=== PATIENT | female | born 1950 | race Caucasian/White ===

== ENCOUNTER 2022-10-02 01:05 | Outpatient (REF) | payer MEDICARE, MEDICAID, SELFPAY ==
[2022-10-02 10:24] LABS: Estimated Average Glucose 123 mg/dL; Glycohemoglobin A1C 5.9 % (4.5-6.2)
== END 2022-10-02 01:06 ==
LOC: LAB 01:05
PROVIDERS: PCP Family Medicine; Visit Provider Family Medicine
DX: E11.9 Type 2 diabetes mellitus without complications (principal)
CPT/HCPCS: 36415; 83036

== ENCOUNTER 2022-11-27 07:34 | Outpatient (REF) | payer MEDICARE, MEDICAID, SELFPAY ==
[2022-11-27 09:53] LABS: Estimated Average Glucose 157 mg/dL; Glycohemoglobin A1C 7.1 % (4.5-6.2)
== END 2022-11-27 07:35 | disposition home or self-care (01) ==
LOC: LAB 07:34
PROVIDERS: PCP Family Medicine; Visit Provider Family Medicine
DX: E11.9 Type 2 diabetes mellitus without complications (principal)
CPT/HCPCS: 36415; 83036

== ENCOUNTER 2023-01-04 00:29 | Outpatient (REF) | payer MEDICARE, MEDICAID, SELFPAY ==
[2023-01-04 07:05] LABS: Estimated Average Glucose 166 mg/dL; Glycohemoglobin A1C 7.4 % (4.5-6.2)
== END 2023-01-04 00:30 | disposition home or self-care (01) ==
LOC: LAB 00:29
PROVIDERS: PCP Family Medicine; Visit Provider Family Medicine
DX: E11.9 Type 2 diabetes mellitus without complications (principal)
CPT/HCPCS: 36415; 83036

== ENCOUNTER 2023-01-25 04:24 | Outpatient (REF) | payer MEDICARE, MEDICAID, SELFPAY ==
[2023-01-25 09:11] LABS: Basophils Absolute Auto 0.1 10^3/uL (0.0-0.1); Basophils Percent Auto 0.5 % (0.2-2.0); Eosinophils Absolute Auto 0.1 10^3/uL (0.0-0.7); Eosinophils Percent Auto 1.2 % (0.9-7.0); Hematocrit 32.9 % (36.0-48.0); Hemoglobin 10.5 g/dL (12.0-16.0); Immature Granulocytes Abs Auto 0.08 10^3/uL (0.00-0.03); Immature Granulocytes Pct Auto 0.7 % (0.0-0.5); Lymphocytes Absolute Auto 2.5 10^3/uL (1.2-3.8); Lymphocytes Percent Auto 21.6 % (20.5-60.0); Mean Corpuscular HGB Conc 31.9 g/dL (29.9-35.2); Mean Corpuscular Hemoglobin 33.1 pg (26.7-34.0); Mean Corpuscular Volume 103.8 fL (81.0-99.0); Mean Platelet Volume 10.5 fL (9.5-13.5); Monocytes Absolute Auto 0.6 10^3/uL (0.3-0.8); Monocytes Percent Auto 5.4 % (1.7-12.0); Neutrophils Absolute Auto 8.3 10^3/uL (1.4-6.5); Neutrophils Percent Auto 70.6 % (43.0-75.0); Platelet Count 134 10^3/uL (150-450); Red Blood Count 3.17 10^6/uL (4.20-5.40); Red Cell Distribution Width 13.2 % (11.0-15.0); White Blood Count 11.8 10^3/uL (4.0-11.0)
[2023-01-25 10:00] LABS: Percent Iron Saturation 28.4 %
== END 2023-01-25 04:25 | disposition home or self-care (01) ==
LOC: LAB 04:24
PROVIDERS: PCP Family Medicine; Visit Provider Family Medicine
DX: D64.9 Anemia, unspecified (principal)
CPT/HCPCS: 36415; 82728; 83540; 83550; 85025

== ENCOUNTER 2023-01-27 01:13 | Outpatient (REF) | payer MEDICARE, MEDICAID, SELFPAY ==
[2023-01-27 11:13] LABS: Bilirubin Urine NEGATIVE (NEGATIVE); Blood Urine SMALL (NEGATIVE); Clarity Urine CLEAR (CLEAR); Color Urine LT. YELLOW (YELLOW); Glucose Urine UA 100 mg/dL (NEGATIVE); Ketones Urine NEGATIVE (NEGATIVE); Leukocyte Esterase Urine TRACE (NEGATIVE); Nitrite Urine NEGATIVE (NEGATIVE); Protein Urine 100 mg/dL (NEG/TRACE); Urobilinogen Urine 0.2 EU/dL (0.2-1.0); pH Urine 5.5 (5.0-9.0)
[2023-01-27 11:24] LABS: Urine Microscopic Indicated YES
[2023-01-27 11:28] LABS: Bacteria Urine MODERATE #/HPF (NONE SEEN)
[2023-01-27 11:35] LABS: Mucus Urine NONE SEEN (NONE SEEN)
[2023-01-27 11:36] LABS: Cast Seen? SEEN #/LPF (NONE SEEN); Crystals Seen? None Seen #/HPF (None Seen); Hyaline Casts Urine RARE; Squamous Epithelial Cell Urine RARE #/LPF (NONE/RARE); Urine Culture Indicated YES
== END 2023-01-27 01:14 | disposition home or self-care (01) ==
LOC: LAB 01:13
PROVIDERS: PCP Family Medicine; Visit Provider Family Medicine
DX: D72.829 Elevated white blood cell count, unspecified (principal); R82.90 Unspecified abnormal findings in urine
CPT/HCPCS: 81001; 87086; 87150; 87186

== ENCOUNTER 2023-01-28 09:44 | Outpatient (OUT) | payer MEDICARE, MEDICAID, SELFPAY ==
--- NOTE | 2023-01-28 09:48 | MM_ITS ---
Patient: SAMREEN LANGE Exam Date: 01/28/2023 : 1950 Gender:F Ordering : DR CHRISTOPHER MANN M.D. Admission #: [id number] Family : Order #: [id number] CLICK HERE TO VIEW EXAM RADIOLOGY REPORT PROCEDURE: MM SCREENING MAMMO BI COMPARISON: MG MAMM SCREEN MOIRA W CAD, 01/15/2021. MG MAMM SCREEN MOIRA W CAD, 01/19/2022. INDICATIONS: Screening Calculator Name NCI Breast Cancer Risk Assessment Tool 5 Year Breast Cancer Risk 1.60% Lifetime Breast Cancer Risk 3.90% Personal Breast Cancer No Personal Ovarian Cancer No Treatments hysterectomy Family Cancers Father with pancreatic cancer at age 68. LOCATION: [facility] BREAST COMPOSITION: Extremely dense, which lowers the sensitivity of mammography. FINDINGS: DIAGNOSTIC CATEGORY 2--BENIGN FINDING. NO CHANGE FROM COMPARISON. Very limited 2D only projections due to the patient being wheelchair-bound. Scattered benign-appearing calcifications are present. RIGHT BREAST: No significant suspicious finding. LEFT BREAST: No significant suspicious finding. RECOMMENDATIONS: ROUTINE MAMMOGRAM AND CLINICAL EVALUATION IN 12 MONTHS. PLEASE NOTE: A NORMAL MAMMOGRAM DOES NOT EXCLUDE THE POSSIBILITY OF BREAST CANCER. A CLINICALLY SUSPICIOUS PALPABLE LUMP SHOULD BE BIOPSIED. Dictated by: Reji De Leon MD on 01/29/2023 at 08:47 Approved by: Reji De Leon MD on 01/29/2023 at 08:50
== END 2023-01-28 09:45 | disposition home or self-care (01) ==
LOC: MAMMO 09:44
PROVIDERS: PCP Family Medicine; Visit Provider Family Medicine
DX: Z12.31 Encounter for screening mammogram for malignant neoplasm of breast (principal); Z80.0 Family history of malignant neoplasm of digestive organs
CPT/HCPCS: 77067

== ENCOUNTER 2023-04-05 05:26 | Outpatient (REF) | payer MEDICARE, MEDICAID, SELFPAY ==
[2023-04-05 09:38] LABS: Estimated Average Glucose 197 mg/dL; Glycohemoglobin A1C 8.5 % (4.5-6.2)
[2023-04-05 10:28] LABS: Basophils Absolute Auto 0.1 10^3/uL (0.0-0.1); Basophils Percent Auto 0.5 % (0.2-2.0); Eosinophils Absolute Auto 0.3 10^3/uL (0.0-0.7); Hematocrit 32.6 % (36.0-48.0); Hemoglobin 10.4 g/dL (12.0-16.0); Immature Granulocytes Abs Auto 0.08 10^3/uL (0.00-0.03); Immature Granulocytes Pct Auto 0.7 % (0.0-0.5); Lymphocytes Absolute Auto 2.6 10^3/uL (1.2-3.8); Lymphocytes Percent Auto 20.9 % (20.5-60.0); Mean Corpuscular HGB Conc 31.9 g/dL (29.9-35.2); Mean Corpuscular Hemoglobin 32.7 pg (26.7-34.0); Mean Corpuscular Volume 102.5 fL (81.0-99.0); Mean Platelet Volume 10.9 fL (9.5-13.5); Monocytes Absolute Auto 0.6 10^3/uL (0.3-0.8); Monocytes Percent Auto 4.5 % (1.7-12.0); Neutrophils Absolute Auto 8.7 10^3/uL (1.4-6.5); Neutrophils Percent Auto 71.4 % (43.0-75.0); Platelet Count 140 10^3/uL (150-450); Red Blood Count 3.18 10^6/uL (4.20-5.40); Red Cell Distribution Width 12.9 % (11.0-15.0); White Blood Count 12.2 10^3/uL (4.0-11.0)
[2023-04-05 10:30] LABS: Alanine Aminotransferase 25 U/L (14-59); Albumin Globulin Ratio 0.5; Albumin Level 2.8 g/dL (3.4-5.0); Alkaline Phosphatase 103 U/L (46-116); Aspartate Amino Transferase 11 U/L (15-37); Bilirubin Direct 0.2 mg/dL (0.0-0.2); Bilirubin Total 0.4 mg/dL (0.2-1.0); Carbon Dioxide 27.8 mmol/L (21.0-32.0); Chloride 96 mmol/L (98-107); Chol HDL Ratio 3.2; Cholesterol 120 mg/dL (<=200); Estimated GFR (African America 6 (>=60); Estimated GFR (Non-African Ame 5 (>=60); Globulin 5.4 g/dL; HDL Cholesterol 37 mg/dL (40-60); Potassium 3.8 mmol/L (3.5-5.1); Sodium 134 mmol/L (136-145); Total Protein 8.2 g/dL (6.4-8.2); Triglycerides 160 mg/dL (<=150)
== END 2023-04-05 05:27 | disposition home or self-care (01) ==
LOC: LAB 05:26
PROVIDERS: PCP Family Medicine; Visit Provider Family Medicine
DX: I12.9 Hypertensive chronic kidney disease with stage 1 through stage 4 chronic kidney disease, or unspecified chronic kidney disease (principal); N18.4 Chronic kidney disease, stage 4 (severe); E78.5 Hyperlipidemia, unspecified; E11.9 Type 2 diabetes mellitus without complications
CPT/HCPCS: 36415; 80051; 80061; 80076; 82565; 83036; 84520; 85025

== ENCOUNTER 2023-04-12 02:13 | Outpatient (REF) | payer MEDICARE, MEDICAID, SELFPAY ==
[2023-04-12 08:27] LABS: Albumin Level 2.6 g/dL (3.4-5.0); Anion Gap 14.7; BUN Creatinine Ratio 7.1; Calcium 9.1 mg/dL (8.5-10.1); Carbon Dioxide 27.7 mmol/L (21.0-32.0); Chloride 95 mmol/L (98-107); Estimated GFR (African America 7 (>=60); Estimated GFR (Non-African Ame 6 (>=60); Glucose 424 mg/dL (74-106); Phosphorus 4.5 mg/dL (2.6-4.7); Potassium 4.4 mmol/L (3.5-5.1); Sodium 133 mmol/L (136-145)
== END 2023-04-12 02:14 | disposition home or self-care (01) ==
LOC: LAB 02:13
PROVIDERS: PCP Family Medicine; Visit Provider Family Medicine
DX: N18.4 Chronic kidney disease, stage 4 (severe) (principal)
CPT/HCPCS: 36415; 80048; 82042; 84100

== ENCOUNTER 2023-04-14 05:59 | Outpatient (REF) | payer MEDICARE, MEDICAID, SELFPAY ==
--- OUTSIDE RECORDS SUMMARY | 2023-04-14 06:16 | XMS_ITS | CCD ---
Author Name Unknown Address [address] [place] [address] Organization [facility] Care Team Providers Care Financial Services Representative Name Role Phone MD Christopher Mann Primary Care Provider ELLA Alicea Attending Provider MD Sanchez Jean Referring Provider Essie Salas Unavailable MD Christopher Mann Primary Care Provider ELLA Alicea Attending Provider MD Sanchez Jean Referring Provider SAMIRA Moss Emergency Provider MD Camila Young Admit Provider [phone] MD Camila Young Attending Provider Danii Rodriguez Attending Unavailable Traboulgiani Moselwynf Attending Unavailable Traboulssi, Motatiana Attending Unavailable Traboulssi, Motatiana Attending Unavailable Traboultiara, Danii Attending Unavailable JOHNATHAN, DR WHITE Consulting Unavailable JOHNATHAN, DR WHITE Primary Care Unavailable JOHNATHAN, DR WHITE Attending Unavailable JOHNATHAN, DR WHITE Admitting Unavailable JOHNATHAN, DR WHITE Consulting Unavailable JORDYN RAMEY Attending Unavailable JORDYN RAMEY Admitting Unavailable JOHNATHAN, DR WHITE Primary Care Unavailable JOHNATHAN, DR WHITE Consulting Unavailable JOHNATHAN, DR WHITE Primary Care Unavailable MISC, DR SIDDIQUI Attending Unavailable MISC, DR SIDDIQUI Admitting Unavailable HOY ., DR MORRIS Consulting Unavailable JOHNATHAN, DR WHITE Primary Care Unavailable HOY ., DR MORRIS Attending Unavailable HOY ., DR MORRIS Admitting Unavailable JOHNATHAN, DR WHITE Consulting Unavailable JOHNATHAN, DR WHITE Primary Care Unavailable JOHNATHAN, DR WHITE Attending Unavailable JOHNATHAN, DR WHITE Admitting Unavailable MERLYN, ESSIE Consulting Unavailable JOHNATHAN, DR WHITE Primary Care Unavailable MERLYN, ESSIE Attending Unavailable MERLYN, ESSIE Admitting Unavailable JOHNATHAN, DR WHITE Consulting Unavailable JOHNATHAN, DR WHITE Primary Care Unavailable JOHNATHAN, DR WHITE Attending Unavailable JOHNATHAN, DR WHITE Admitting Unavailable JOHNATHAN, DR WHITE Consulting Unavailable JOHNATHAN, DR WHITE Primary Care Unavailable JOHNATHAN, DR WHITE Attending Unavailable JOHNATHAN, DR WHITE Admitting Unavailable JOHNATHAN, DR WHITE Consulting Unavailable JOHNATHAN, DR WHITE Primary Care Unavailable JOHNATHAN, DR WHITE Attending Unavailable JOHNATHAN, DR WHITE Admitting Unavailable WEST, DR NAGA Dubon Consulting Unavailable JOHNATHAN, DR WHITE Consulting Unavailable JOHNATHAN, DR WHITE Primary Care Unavailable JOHNATHAN, DR WHITE Attending Unavailable JOHNATHAN, DR WHITE Admitting Unavailable Johnathan, Rugen M Unavailable Unavailable Unavailable MD Christopher Mann Primary Care Provider ELLA Alicea Attending Provider MD Sanchez Jean Referring Provider [phone] Essence Alicea Admitting Unavail able Essence Alicea Attending Unavail able Sanchez Jean Referring Unavailable Johnathan, Rugen M Primary Care Unavailable [place], Rugen M Primary Care Unavailable Camila Young Admitting Unavailable Ed, Levy Attending Unavailable Kerrie Camilo Consulting Unavailable Dr. Danii Rodriguez Referring Unavaila ble Jennifer, Dr. Wade Attending Unavaila ble Johnathan, Dr. Christopher Joe Primary Care Unavaila Christopher Santana MD Primary Care Provider DANII RODRIGUEZ Attending Unavailable JOHNATHAN, RUGEN MABALAY Primary Care Unavailable Allergies Allergy Classification Reported Allergen(s) Allergy Type Date of Onset Reaction(s) Facility (7 sources) Cephalexin; Translations: [cephalexin] Drug Allergy 3 Itching, Swelling [facility] (5 sources) Diclofenac; Translations: [diclofenac] Drug Allergy 3 Swelling [facility] (5 sources) miSOPROStol; Translations: [misoprostol] Drug Allergy 3 Swelling [facility] (5 sources) Cephalexin; Translations: [Keflex] Drug Allergy 6 reddened pruritic rash, Swelling, Itching [facility] (4 sources) Diclofenac / miSOPROStol Drug Allergy 3 [facility] (1 source) Diclofenac / miSOPROStol Drug Allergy 6 [facility] (1 source) Diclofenac / miSOPROStol; Translations: [Arthrotec TABS] Drug Allergy Hives, Itching, Rash [facility] [employer] [employer] 250 DO Work Phone: (1 source) shellfish, unspecified Allergy to substance (finding) Vomiting [facility] 250 DO Work Phone: (2 sources) Shellfish; Translations: [SHELLFISH CONTAINING PRODUCTS] Propensity to adverse reactions 3 Nausea/vomiting [facility] Work Phone: (1 source) Diclofenac / miSOPROStol; Translations: [DICLOFENAC-MIS OPROSTOL] Drug Allergy 3 [facility] 3 Repository Medications Current Medications Medication Drug Class(es) Dates Sig (Normalized) Sig (Original) acetaminophen 325 mg oral tablet (11 sources) Start: 03-28-2021 End: 06-30-2022 take 325 mg by mouth every six hours Acetaminophen Active 325 MG PO Q6H July 01, 2022 1:00am acetaminophen 325 mg / HYDROcodone bitartrate 5 mg oral tablet (8 sources) Opioid Agonist Start: 07-01-2022 End: 08-05-2022 take 1 tablet by mouth every eight hours Hydrocodone-Acetami nophen Active 1 TAB PO Q8H 9 3 August 05, 2022 take 1 tablet by haresh th three times daily as needed for pain HYDROcodone-acetaminophen ([place]) 5-325 mg tablet Take 1 tablet by mouth 3 times a day as needed for severe pain (7 - 10). 0 Active amLODIPine 5 mg oral tablet (7 sources) Dihydropyridine Calcium Channel Vilma Start: 03-28-2021 take 2 tablets by mouth once daily Amlodipine (Norvasc) 5 mg Tablet Active 10 MG PO Daily March 28, 2021 1:00am Start: 05-04-2011 take 1 tablet by haresh every twenty-four hours amLODIPine Besylate 10 MG 1 tablet Orally Once a day for 30 days Apr, Active atorvastatin 20 mg oral tablet (9 sources) HMG-CoA Reductase Inhibitor Start: 05-04-2011 take 20 mg by mouth once daily at bedtime Atorvastatin Active 20 MG PO Daily at bedtime March 28, 2021 1:00am azelastine hydrochloride 0.5 mg/ml ophthalmic solution (3 sources) Histamine-1 Receptor Antagonist take 1 drop(s) into the eye(s) twice daily Azelastine HCl 0.05 % 1 drop into affected eye Ophthalmic Twice a day Active bisacodyl 10 mg rectal suppository (10 sources) Stimulant Laxative Start: 03-28-2021 End: 06-30-2022 Bisacodyl Active 10 MG ME Daily July 01, 2022 1:00am Calcium + D + K 750-500-40 MG-UNT-MCG (3 sources) take 1 tablet by mouth once daily at mealtime Calcium + D + K 750-500-40 MG-UNT-MCG 1 tablet with meals Orally ONCE A DAY Active calcium carbonate 500 mg chewable tablet (6 sources) Start: 03-28-2021 take 1 tablet by mouth three times daily at mealtime Calcium Carbonate (Calcium Antacid) 200 mg calcium (500 mg) Tablet,Chewable Active 400 MG PO THREE TIMES DAILY WITH MEALS March 28, 2021 1:00am calcium carbonat e (Tums) 200 mg calcium chewable tablet Chew 1 tablet (500 mg) 3 times a day. prn 0 Active Calcium Carbonat e 500 MG TABS TAKE 1 TABLET 3 times daily PRN Quantity: 0 Refills: 0 Ordered: 11-Nov-2022 DO Active Calcium Carbonate Antacid 420 MG (3 sources) take 2 tablets by mouth once daily Calcium Carbonate Antacid 420 MG 2 tablets Orally Once a day Active [id number]-[id number]-[id number] nerals (4 sources) Start: 03-28-2021 take 1 tablet by mouth once daily Lffzach-W1-G-Fa-B12-C-M inerals Active 1 TAB PO Daily March 28, 2021 1:00am Start: 03-28-2021 take 1 tablet by haresh th once daily [id number] Active 1 TAB PO Daily March 28, 2021 12:00am carboxymethylcellulose sodiu m 10 mg/ml ophthalmic solution (3 sources) Artificial Tears 1 % as directed Ophthalmic Active carvedilol 12.5 mg oral tablet (9 sources) alpha-Adrenergic Vilma, beta-Adrenergic Vilma Start: 2020 take 12.5 mg by mouth twice daily Carvedilol Active 12.5 MG PO Twice daily March 28, 2021 1:00am Cepacol Regular Strength 3 M G (3 sources) Cepacol Regular Strength 3 MG 1 lozenge as needed Mouth/Throat every 2 hrs Active 1 ml darbepoetin chris 0.06 mg/ml injection (1 source) Erythropoiesis-stim ulating Agent Start: 2022 Darbepoetin Chris In Polysorbat (Aranesp (In Polysorbate)) 60 mcg/mL Solution Active 60 MCG IV-PUSH WE@1000 0 August 05, 2022 12:00am diclofenac sodium 0.01 mg/mg topical gel (3 sources) Nonsteroidal Anti-inflammatory Drug Voltaren 1 % as directed Externally Active Epoetin Chris 11354 UNIT/ML (3 sources) Epoetin Chris 200 00 UNIT/ML as directed Injection ONCE A WEEK Active fexofenadine hydrochloride 6 0 mg oral tablet (9 sources) Histamine-1 Receptor Antagonist Start: 2020 take 1 tablet by mouth once daily Fexofenadine (Debbie Allergy) 60 mg Tablet Active 60 MG PO Daily March 28, 2021 1:00am folic acid 1 mg oral tablet (4 sources) Start: 2022 take 1 mg by mouth once daily Folic Acid Active 1 MG PO Daily July 31, 2022 12:00am furosemide 40 mg oral tablet (8 sources) Loop Diuretic Start: 2022 take 40 mg by mouth once daily Furosemide Active 40 MG PO Daily July 31, 2022 12:00am gabapentin 300 mg oral capsule (9 sources) Anti-epileptic Agent Start: 2020 take 300 mg by mouth once daily at bedtime Gabapentin Active 300 MG PO Daily at bedtime March 28, 2021 1:00am Start: 03-28-2021 take 300 mg by mouth once daily at bedtime Gabapentin Active 300 MG PO Daily at bedtime March 28, 2021 1:00am take [address] [facility] three times daily gabapentin (Neurontin) 300 mg capsule Take 1 capsule (300 mg) by mouth 3 times a day. 0 Active Glucagon Hcl (Glucagon (Hcl) Emergency Kit) 1 mg Recon Soln (3 sources) Start: 07-01-2022 Glucagon Hcl ( Glucagon (Hcl) Emergency Kit) 1 mg Recon Soln Active 1 MG IM As Directed July 01, 2022 1:00am inject 1 syringe intramuscularly as needed for blood sugar less than 50 glucose 0.4 mg/mg oral gel (7 sources) Start: 03-28-2021 End: 06-30-2022 Dextrose (Glucose Gel) 40 % Gel Active 10 GM PO As Directed July 01, 2022 1:00am give one unit by mouth as needed for blood sugar less than 50 if able to take oral treatment, may repeat x1 12 hr guaiFENesin 600 mg extended release oral tablet (10 sources) Start: 07-01-2022 take 1 tablet by mouth every twelve hours, then take 1 tablet by mouth every twelve hours Guaifenesin (Mucinex) 600 mg Tablet Extended Release 12hr Active 600 MG PO Q12H July 01, 2022 1:00am Start: 03-28-2021 End: 06-30-2022 take 200 mg by mouth every four hours Guaifenesin (Siltussin Sa) 100 mg/5 mL Liquid Discontinued 200 MG PO Q4H March 28, 2021 1:00am June 30, 2022 3:22pm hydrocortisone 0.01 mg/mg topical gel (6 sources) Corticosteroid Start: 07-01-2022 Hydrocortisone Active 1 APPLIC TOPICAL As Directed July 01, 2022 1:00am Hydrocortisone 1 % 1 application Externally Once a day Active hydrOXYzine hydrochloride 25 mg oral tablet (3 sources) Antihistamine take 1 tablet by mouth every six hours hydrOXYzine HCl 25 MG 1 tablet NEEDED Orally every 6 hrs Active insulin isophane, human 70 unt/ml / insulin, regular, human 30 unt/ml injectable suspension (13 sources) Insulin Start: 03-28-2021 Insulin Nph And Regular Human (Novolin 70/30 U-100 Insulin) 100 unit/mL (70-30) suspension Active 50 UNIT SUBCUT Daily March 28, 2021 1:00am Start: 03-28-2021 End: 07-01-2022 Insulin Nph And Regular Dinah n (Novolin 70/30 U-100 Insulin) 100 unit/mL (70-30) suspension Discontinued 77 UNIT SUBCUT Every morning March 28, 2021 1:00am July 01, 2022 11:12am Start: 03-28-2021 Insulin Nph An d Regular Human (Novolin 70/30 U-100 Insulin) 100 unit/mL (70-30) suspension Active 40 UNIT SUBCUT Daily at bedtime March 28, 2021 12:00am insulin NPH and regular human (HumuLIN 70-30, NovoLIN 70-30) 100 unit/mL (70-30) injection Inject under the skin 2 times a day before meals. Take as directed per insulin instructions. 0 Active HumuLIN 70/30 Kw ikPen (70-30) 100 UNIT/ML Subcutaneous Suspension Pen-injector as directed Quantity: 0 Refills: 0 Ordered: 11-Nov-2022 DO Active loperamide hydrochloride 2 mg oral capsule (10 sources) Opioid Agonist Start: 03-28-2021 End: 06-30-2022 Loperamide Active 2 MG PO As Directed July 01, 2022 1:00am Magnesium (3 sources) take 1 capsule by mouth twice daily Magnesium 400 MG 1 capsule with a meal Orally Twice a day Active magnesium oxide 400 mg oral tablet (9 sources) Start: 03-28-2021 End: 06-30-2022 take 400 mg by mouth twice daily Magnesium Oxide Active 400 MG PO Twice daily July 01, 2022 1:00am take 1 tablet by mouth once miguel y Magnesium Oxide 400 MG Oral Tablet TAKE 1 TABLET DAILY. Quantity: 90 Refills: 3 Ordered: 11-Nov-2022 DO Active midodrine hydrochloride 5 mg oral tablet (2 sources) alpha-Adrenergic Agonist take 1 tablet by mouth three times weekly midodrine (Proamatine) 5 mg tablet Take 1 tablet (5 mg) by mouth 3 (three) times a week. Take one tablet by mouth on Wednesday, Wednesday, and Wednesday 0 Active Midodrine HCl - 5 MG Oral Tablet 1 on Wednesday Quantity: 0 Refills: 0 Ordered: 11-Nov-2022 DO Active nystatin 100 unt/mg topical powder (3 sources) Polyene Antifungal Nystatin 1000 00 UNIT/GM 1 application Externally Twice a day Active omeprazole 20 mg delayed release oral tablet (9 sources) Proton Pump Inhibitor Start: 06-30-2022 take 20 mg by mouth once daily Omeprazole Active 20 MG PO Daily June 30, 2022 1:00am take 1 capsule by mo uth once daily before mealtime omeprazole (PriLOSEC) [address] capsule Take 1 capsule (20 mg) by mouth once daily in the morning. Take before meals. Do not crush or chew. 0 Active ondansetron 4 mg disintegrating oral tablet (8 sources) Serotonin-3 Receptor Antagonist Start: 07-01-2022 take 4 mg by mouth every eight hours Ondansetron Active 4 MG PO Q8H July 01, 2022 1:00am take 1 tablet by haresh th every eight hours as needed ondansetron (Zofran) 4 mg tablet Take 1 tablet (4 mg) by mouth every 8 hours if needed for nausea or vomiting. 0 Active take 1 tablet by haresh th every twenty-four hours Ondansetron 4 MG 1 tablet on the tongue and allow to dissolve Orally Once a day Active sertraline 25 mg oral tablet (6 sources) Serotonin Reuptake Inhibitor Start: 06-30-2022 take 25 mg by mouth once daily Sertraline Active 25 MG PO Daily June 30, 2022 1:00am Completed/Discontinued Medications Medication Drug Class(es) Dates Sig (Normalized) Sig (Original) acarbose 100 mg oral tablet (4 sources) alpha-Glucosidase Inhibitor Start: 03-28-2021 End: 07-31-2022 take 100 mg by mouth twice daily before mealtime Acarbose Discontinued 100 MG PO Twice daily March 28, 2021 1:00am July 31, 2022 7:05pm before meals albuterol 0.833 mg/ml / ipratropium bromide 0.167 mg/ml inhalation solution (4 sources) Anticholinergic, beta2-Adrenergic Agonist Start: 03-28-2021 End: 06-30-2022 take 1 mL by inhalation every eight hours Ipratropium-Albute rol (Duoneb) 0.5 mg-3 mg(2.5 mg base)/3 mL Solution For Nebulization Discontinued 3 ML INHALATION Q8H March 28, 2021 1:00am June 30, 2022 3:22pm alendronic acid 70 mg oral tablet (4 sources) Bisphosphonate Start: 03-28-2021 End: 06-30-2022 take 1 tablet by mouth every week Alendronate (Fosamax) 70 mg Tablet Discontinued 70 MG PO every week March 28, 2021 1:00am June 30, 2022 3:21pm take every Wednesday Amino Acids-Protein Hydrolys (Pro-Stat Awc) 17-100 gram-kcal/30 mL Liquid (3 sources) Start: 07-01-2022 End: 07-31-2022 Amino Acids-Protein Hydrolys (Pro-Stat Awc) 17-100 gram-kcal/30 mL Liquid Discontinued 1 EACH PO Daily July 01, 2022 1:00am July 31, 2022 7:05pm Start: 07-01-2022 Amino Acids-Pr otein Hydrolys (Pro-Stat Awc) 17-100 gram- kcal/30 mL Liquid Active 1 EACH PO Daily July 01, 2022 1:00am Benzocaine-Menthol (Cepacol Sore Throat (Andrew-Men)) 15-2.3 mg Lozenge (4 sources) Start: 03-28-2021 End: 06-30-2022 Benzocaine-Menthol (Cepacol Sore Throat (Andrew-Men)) 15-2.3 mg Lozenge Discontinued 1 LOZENGE PO Q8H March 28, 2021 1:00am June 30, 2022 3:21pm Start: 03-28-2021 End: 06-30-2022 Benzocaine-Menthol (Cepacol Sore Throat (Andrew-Men)) 15-2.3 mg Lozenge Discontinued 1 LOZENGE PO Q8H March 28, 2021 12:00am June 30, 2022 2:21pm cholecalciferol 1.25 mg oral capsule (3 sources) Vitamin D Start: 07-01-2022 End: 07-31-2022 Cholecalciferol (Vitamin D3) Discontinued 1250 MCG PO As Directed July 01, 2022 1:00am July 31, 2022 7:05pm 1 ml epoetin chris 2000 unt/ml injection (3 sources) Erythropoies is-stimulati ng Agent Start: 07-01-2022 End: 07-31-2022 inject 2000 [IU] by subcutaneous injection every week Epoetin Chris Discontinued 2000 UNIT SUBCUT every week July 01, 2022 1:00am July 31, 2022 7:05pm ferrous sulfate 325 mg oral tablet (7 sources) Start: 03-28-2021 End: 07-31-2022 take 1 tablet by mouth once daily Ferrous Sulfate (Ferrousul) 325 mg (65 mg iron) Tablet Discontinued 325 MG PO Daily March 28, 2021 1:00am July 31, 2022 10:51am take 1 tablet by mouth once miguel y Ferrous Sulfate 325 (65 Fe) MG 1 tablet Orally Once a day Active glucagon (rdna) 1 mg injection (7 sources) Antihypoglycemic Agent Start: 03-28-2021 End: 06-30-2022 Glucagon (Glucagon Emergency Kit (Human)) 1 mg Recon Soln Discontinued 1 MG IM As Directed March 28, 2021 1:00am June 30, 2022 3:22pm 1 syringe IM as needed for blood surgar less than 50 may repeat x1 Glucagon Emergen cy 1 MG as directed Injection Active moxifloxacin 5 mg/ml ophthalmic solution (4 sources) Quinolone Antimicrobial Start: 03-28-2021 End: 06-30-2022 take 1 drop(s) into the eye(s) four times daily Moxifloxacin (Vigamox) 0.5 % Drops Discontinued 1 DROPS EYE-LEFT Four times daily March 28, 2021 1:00am June 30, 2022 3:23pm naphazoline hydrochloride 0.25 mg/ml / pheniramine maleate 3 mg/ml ophthalmic solution (4 sources) Start: 03-28-2021 End: 06-30-2022 take 0.025-0.3 drop(s) into the eye(s) three times daily Naphazoline-Pheni ramine (Naphcon-A) 0.025-0.3 % Drops Discontinued 1 DROPS EYE-BOTH Three times daily March 28, 2021 1:00am June 30, 2022 3:23pm prednisoLONE acetate 10 mg/ml ophthalmic suspension (4 sources) Corticosteroid Start: 03-28-2021 End: 06-30-2022 take 1 drop(s) into the eye(s) four times daily Prednisolone Acetate Discontinued 1 DROPS EYE-LEFT Four times daily March 28, 2021 1:00am June 30, 2022 3:22pm sodium bicarbonate 650 mg oral tablet (6 sources) Start: 07-01-2022 End: 07-31-2022 take 1300 mg by mouth twice daily Sodium Bicarbonate Discontinued 1300 MG PO Twice daily July 01, 2022 1:00am July 31, 2022 10:54am take 2 tablets by mo uth every twelve hours Sodium Bicarbonate 650 MG 2 TABLET Orall y TWICE A DAY Active sodium zirconium cyclosilica te 5000 mg powder for oral suspension (7 sources) Start: 06-30-2022 End: 07-31-2022 Sodium Zirconium Cyclosilica te (Lokelma) 5 gram Powder In Packet Discontinued 5 GM PO Daily June 30, 2022 1:00am July 31, 2022 7:05pm Lokelma 5 GM 1 p acket dissolved in water Orally Active traMADol hydrochloride 50 mg oral tablet (4 sources) Opioid Agonist Start: 03-28-2021 End: 06-30-2022 take 100 mg by mouth every twelve hours Tramadol Discontinued 100 MG PO Q12H March 28, 2021 1:00am June 30, 2022 3:22pm Problems Active Problems Problem Classification Problem Date Documented Date Episodic/Chronic Acute cerebrovascular disease (8 sources) Occlusion of cerebral artery with stroke; Translations: [CVA, Unspecified] Onset: 3 03-23-2023 Chronic Administrative/socia l admission (1 source) Lives in a fci; Translations: [Person living in residential institution] Episodic Cancer of uterus (3 sources) Primary malignant neoplasm of endometrium; Translations: [Endometrial cancer] Chronic Chronic kidney disease (20 sources) Chronic kidney disease stage 1; Translations: [Chronic Kidney Disease Stage I] Onset: 3 Chronic Conditions associated with dizziness or vertigo (3 sources) Dizziness; Translations: [Dizziness] Episodic Coronary atherosclerosis and other heart disease (8 sources) Coronary arteriosclerosis; Translations: [CAD - Coronary Artery Disease] Onset: 3 03-23-2023 Chronic Deficiency and other anemia (3 sources) Anemia of renal disease; Translations: [Anemia in chronic kidney disease] Chronic Deficiency and other anemia (2 sources) Anemia in chronic kidney disease; Translations: [Anemia in chronic kidney disease] Onset: 3 Chronic Deficiency and other anemia (5 sources) Anemia, unspecified; Translations: [ANEMIA UNSPECIFIED] Onset: 3 Episodic Diabetes mellitus with complications (8 sources) Disorder of kidney due to diabetes mellitus; Translations: [Type 2 diabetes mellitus with diabetic chronic kidney disease] Onset: 3 Chronic Diabetes mellitus without complication (4 sources) Type 2 diabetes mellitus without complications; Translations: [TYPE 2 DM WITHOUT COMPLICATIONS] Onset: 3 Chronic Disorders of lipid metabolism (8 sources) Pure hypercholesterolemia; Translations: [Pure hypercholesterolemia] Onset: 3 03-23-2023 Chronic Essential hypertension (9 sources) Hypertensive disorder; Translations: [Hypertension] Onset: 3 03-23-2023 Chronic Hypertension with complications and secondary hypertension (9 sources) 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; Translations: [Hypertensive chronic kidney disease with stage 5 chronic kidney disease or end stage renal disease] Onset: 3 Chronic Inflammation; infection of eye (except that caused by tuberculosis or sexually transmitteddisease) (3 sources) External hordeolum; Translations: [Stye] Episodic Nonspecific chest pain (9 sources) Atypical chest pain; Translations: [Other chest pain] Onset: 3 07-31-2022 Episodic Other diseases of kidney and ureters (3 sources) Secondary hyperparathyroidism; Translations: [Secondary hyperparathyroidism of renal origin] Chronic Other diseases of kidney and ureters (1 source) Secondary hyperparathyroidism of renal origin Chronic Other ear and sense organ disorders (3 sources) Tinnitus; Translations: [Tinnitus NOS] Episodic Other inflammatory condition of skin (3 sources) Rosacea; Translations: [Rosacea] Chronic Other nervous system disorders (1 source) Chronic pain; Translations: [Other chronic pain] 02-05-2023 Chronic Other nervous system disorders (1 source) Other chronic pain; Translations: [Other chronic pain] Onset: 3 Chronic Other non-traumatic joint disorders (3 sources) Arthralgia of the lower leg; Translations: [Pain in joint, lower leg] Episodic Other skin disorders (1 source) Change in skin lesion; Translations: [Anemia in chronic kidney disease] Onset: 3 Episodic Residual codes; unclassified (3 sources) Obstructive sleep apnea syndrome; Translations: [BIJAL] Chronic Residual codes; unclassified (1 source) Inappropriate diet and eating habits; Translations: [INAPPROPRIATE DIET AND EATING HABITS] Onset: 3 Episodic Screening and history of mental health and substance abuse codes (1 source) Ex-smoker; Translations: [Personal history of tobacco use] Episodic Past or Other Problems Problem Classification Problem Date Documented Date Episodic/Chronic Bacterial infection; unspecified site (2 sources) Microbiologic culture positive; Translations: [Bacteremia] Onset: 08-02-2022 02-05-2023 Episodic Other screening for suspected conditions (not mental disorders or infectious disease) (7 sources) Renal function tests abnormal; Translations: [Abnormal kidney function study] Onset: 01-19-2022 Episodic Residual codes; unclassified (1 source) Family history of malignant neoplasm of other organs or systems; Translations: [FAM HX MALIG NEOPLASM OTH ORGN/SYS] Onset: 01-21-2022 Episodic Unclassified (1 source) Onset: 03-23-2023 03-23-2023 Urinary tract infections (4 sources) Urinary tract infectious disease; Translations: [Urinary tract infection, site not specified] Onset: 08-02-2022 07-31-2022 Episodic Results Test Name Value Interpretation Reference Range Facil ity Office Visit (Cardiology)on 11-11-2022 Follow-up visit Diagnoses/Problems Assessed Atherosclerosis of tolowa dee-ni' coronary artery without angina pectoris (414.01) (I25.10) Chest discomfort (786.59) (R07.89) Benign essential hypertension (401.1) (I10) Hyperlipidemia (272.4) (E78.5) Stroke (434.91) (I63.9) Dialysis patient (V45.11) (Z99.2) intermediate resident (V60.6) (Z59.3) Former smoker (V15.82) (Z87.891) Orders SocHx: Former smoker Tobacco Use Screening; Status:Complete; Done: [id number] Patient Instructions Please bring all medicines, vitamins, and herbal supplements with you when you come to the office. Prescriptions will not be filled unless you are compliant with your follow up appointments or have a follow up appointment scheduled as per instruction of your physician. Refills should be requested at the time of your visit. Follow up in 4-5 months Same meds. Chief Complaint ESSENCE CASTORENA is being seen for follow-up of a hospitalization for. History of Present Illness Patient is here for follow-up from recent hospitalization. She is accompanied by her daughter. Patient appears to be poor historian. Most of the information gathered from the daughter. I saw her during recent hospitalization for evaluation of atypical chest pain. Patient reported history of coronary artery disease prior intervention in [place]. Detail is lacking. She does have history of end-stage renal disease on hemodialysis. She does have history of stroke with left-sided weakness. Since her discharge from the hospital patient denies any chest pain. She is receiving hemodialysis since July. She underwent shunt placement and daughter report that her dialysis catheter will be removed in the near future. While in the hospital patient underwent work-up including an echocardiogram which showed normal LV systolic function. Her stress test was negative for myocardial ischemia. Assessment 1. Coronary artery disease prior intervention in [place] detail is lacking. Recent evaluation of atypical chest pain. Stress test and echocardiogram appears to be reassuring 2. Chronic kidney disease on hemodialysis 3. Hypertension controlled 4. Hyperlipidemia on treatment 5. Diabetes mellitus 6. History of stroke with left-sided weakness and 7. intermediate resident 8. Intermittent episode of hemodialysis associated hypotension she was admitted during intermittently 9. Anemia of chronic disease Plan 1. I recommended the patient to continue current therapy + aspirin 2. I reviewed the result of her recent hospitalization record including echocardiogram and stress test 3. I advised the patient to notify me if he had recurrence of her symptoms 4. Family report preference for more conservative management and the patient is DNR Surgical History Problems History of Appendectomy History of Complete colonoscopy History of Hysterectomy History of Knee surgery Current Meds Medication NameInstruction Atorvastatin Calcium 20 MG Oral TabletTAKE 1 TABLET AT BEDTIME. Calcium Carbonate 500 MG TABSTAKE 1 TABLET 3 times daily PRN Carvedilol 12.5 MG Oral TabletTAKE 1 TABLET TWICE DAILY. Fexofenadine HCl - 60 MG Oral TabletTAKE 1 TABLET DAILY. Folic Acid 1 MG Oral TabletTAKE 1 TABLET DAILY DIRECTED. Furosemide 40 MG Oral TabletTAKE 1 TABLET DAILY. Gabapentin 300 MG Oral CapsuleTAKE 1 CAPSULE AT BEDTIME. HumuLIN 70/30 KwikPen (70-30) 100 UNIT/ML Subcutaneous Suspension Pen-injectoras directed Magnesium Oxide 400 MG Oral TabletTAKE 1 TABLET DAILY. Midodrine HCl - 5 MG Oral Tablet1 on Wednesday PriLOSEC OTC 20 MG Oral Tablet Delayed ReleaseTAKE 1 TABLET DAILY. Sertraline HCl - 25 MG Oral TabletTAKE 1 TABLET DAILY DIRECTED. Zofran 4 MG TABSTAKE 1 TABLET Every 8 hours PRN Allergies Medication Arthrotec TABS Hives; Itching; Rash; Recorded By: Meme Payne; 11/10/2022 4:19:27 PM Keflex Itching; Swelling; Recorded By: Meme Payne; 11/10/2022 4:19:27 PM NonMedication Seafood Vomiting; Recorded By: Meme Payne; 11/10/2022 4:19:27 PM Social History Problems Consumes alcohol occasionally (V49.89) (Z78.9) Daily caffeine consumption Former smoker (V15.82) (Z87.891) No illicit drug use intermediate resident (V60.6) (Z59.3) Review of Systems Constitutional: not feeling tired. Eyes: no eyesight problems. ENT: no hearing loss and no nosebleeds. Cardiovascular: no intermittent leg claudication and as noted in HPI. Respiratory: no chronic cough and no shortness of breath. Gastrointestinal: no change in bowel habits and no blood in stools. Genitourinary: no urinary frequency. Skin: no skin rashes. Neurological: no seizures and no frequent falls. Psychiatric: no depression and not suicidal. All other systems have been reviewed and are negative for complaint. Constitutional: not feeling tired. Cardiovascular: no intermittent leg claudication and as noted in HPI. Respiratory: no cough and no shortness of breath. Gastrointestinal: no change in bowel habits an (more content not included)... Normal [facility] Tobacco Screening.on 023 Fall risk assessment a) No falls within the last year [facility] On-Q-ity 250 DO Work Phone: Tobacco use status [facility] b) No [facility] 250 DO Work Phone: Glucose Poct Glucometerson 0 08-05-2022 Glucose [Mass/Vol] 113 mg/dL Normal [facility] Comment on above: Result Comment: [facility]eline om Glucose Reference Range is dependent on time and content of last meal. Glucose of more than 200 mg/dL in a nonstressed, ambulatory subject supports the diagnosis of Diabetes Mellitus. PERFORMED BY: [place] [address] PATHOLOGIST EARLY MORNING BABYSITTER DANII HAYNES M.D. Performed By: #### B MP, CBC #### [address] Glucose [Mass/Vol] 108 mg/dL Normal [facility] Comment on above: Result Comment: [facility]eline om Glucose Reference Range is dependent on time and content of last meal. Glucose of more than 200 mg/dL in a nonstressed, ambulatory subject supports the diagnosis of Diabetes Mellitus. PERFORMED BY: [place] [address] PATHOLOGIST EARLY MORNING BABYSITTER DANII HAYNES M.D. Performed By: #### G LULS #### Point of Care testing , Renal Function Panelon 08-05 Albumin [Mass/Vol] 3.3 g/dL Low 3.5-5.7 [facility] Comment on above: Order Comment: pt wo uldnt let me retry to get the blood work Performed By: #### B MP, CBC #### [address] Anion gap [Moles/Vol] 13.9 mmol/L Normal 6.0-15.0 [facility] Comment on above: Order Comment: pt wo uldnt let me retry to get the blood work Performed By: #### B MP, CBC #### [place] [address] [place] Calcium [Mass/Vol] 8.6 mg/dL Normal 8.6-10.3 [facility] Comment on above: Order Comment: pt wo uldnt let me retry to get the blood work Performed By: #### B MP, CBC #### [place] [address] [place] Chloride [Moles/Vol] 98 mmol/L Normal 98-107 [facility] Comment on above: Order Comment: pt wo uldnt let me retry to get the blood work Performed By: #### B MP, CBC #### [facility] [address] CO2 [Moles/Vol] 26.3 mmol/L Normal 21.0-31.0 [facility] Comment on above: Order Comment: pt wo uldnt let me retry to get the blood work Performed By: #### B MP, CBC #### [facility] [address] Creatinine [Mass/Vol] 5.26 mg/dL Significant change up 0.6 0-1.20 [facility] Comment on above: Order Comment: pt wo uldnt let me retry to get the blood work Performed By: #### B MP, CBC #### [facility] [address] Creatinine Clr Calc Pharmacy 11.05 [facility] Comment on above: Order Comment: pt wo uldnt let me retry to get the blood work Result Comment: PERF ORMED BY: [place] [address] PATHOLOGIST EARLY MORNING BABYSITTER DANII HAYNES M.D. Performed By: #### B MP, CBC #### [address] GFR/1.73 sq M.predicted MDRD (S/P/Bld) [Vol rate/Area] 8.165 mL/min/{1.73_m2} [facility] Comment on above: Order Comment: pt wo uldnt let me retry to get the blood work Performed By: #### B MP, CBC #### [facility] [address] Glucose [Mass/Vol] 111 mg/dL High 70-100 [facility] Comment on above: Order Comment: pt wo uldnt let me retry to get the blood work Result Comment: [place]eline om Glucose Reference Range is dependent on time and content of last meal. Glucose of more than 200 mg/dL in a nonstressed, ambulatory subject supports the diagnosis of Diabetes Mellitus. ADA recommended reference range Performed By: #### B MP, CBC #### [facility] [address] Phosphate [Mass/Vol] 5.3 mg/dL Normal 3.7-7.2 [facility] Comment on above: Order Comment: pt wo uldnt let me retry to get the blood work Performed By: #### B MP, CBC #### [facility] [address] Potassium [Moles/Vol] 4.2 mmol/L Normal 3.5-5.1 [facility] Comment on above: Order Comment: pt wo uldnt let me retry to get the blood work Performed By: #### B MP, CBC #### [address] Sodium [Moles/Vol] 134 mmol/L Low 136-145 [facility] Comment on above: Order Comment: pt wo uldnt let me retry to get the blood work Performed By: #### B MP, CBC #### [address] Urea nitrogen [Mass/Vol] 48 mg/dL High 7-25 [facility] Comment on above: Order Comment: pt wo uldnt let me retry to get the blood work Performed By: #### B MP, CBC #### [address] Glucose Poct Glucometerson 0 08-04-2022 Glucose [Mass/Vol] 118 mg/dL Normal [facility] Comment on above: Result Comment: [facility] Glucose Reference Range is dependent on time and content of last meal. Glucose of more than 200 mg/dL in a nonstressed, ambulatory subject supports the diagnosis of Diabetes Mellitus. PERFORMED BY: [place] [address] PATHOLOGIST EARLY MORNING BABYSITTER DANII HAYNES M.D. Performed By: #### G LULS #### Point of Care testing , Glucose [Mass/Vol] 118 mg/dL Normal [facility] Comment on above: Result Comment: [facility] Glucose Reference Range is dependent on time and content of last meal. Glucose of more than 200 mg/dL in a nonstressed, ambulatory subject supports the diagnosis of Diabetes Mellitus. PERFORMED BY: [place] [address] PATHOLOGIST EARLY MORNING BABYSITTER DANII HAYNES M.D. Performed By: #### G LULS #### Point of Care testing , Glucose [Mass/Vol] 136 mg/dL Normal [facility] Comment on above: Result Comment: [facility] Glucose Reference Range is dependent on time and content of last meal. Glucose of more than 200 mg/dL in a nonstressed, ambulatory subject supports the diagnosis of Diabetes Mellitus. PERFORMED BY: [place] [address] PATHOLOGIST EARLY MORNING BABYSITTER DANII HAYNES M.D. Performed By: #### C MP #### [address] NM ping perf SPECT rest stron 08-04-2022 NM ping perf SPECT rest str [facility] [place] [address] Nuclear Medicine Report Signed Patient: Amparo Castorena MR#: [id number] 68 : 1950 Acct:[id number] Age/Sex: 71 / F ADM Date: 08/02/22 Loc: Room: [address] [place] [address] Type: ADM IN Attending Dr: Levy Ward MD Copies to: MD Jimbo Judd MD, [facility] Danii Rodriguez MD Ordering Provider: Danii Rodriguez MD Date of Service: 08/04/22 NM/NM ping perf SPECT rest str: Dose Ordered chest pain ORDERED BY: Danii Rodriguez MD INDICATION: A 31-year-old patient with chest pain. Resting images were obtained after intravenous administration of 27.8 mCi of Cardiolite given on 08/03/2022, and stress images were obtained after intravenous administration of 29.7 mCi of Cardiolite given after Lexiscan administration on 08/04/2022. Subsequently, gated SPECT MPI was obtained. TOMOGRAPHIC DATA: The study is normal and demonstrates homogeneous tracer uptake. Left ventricular volumes and wall motions are normal. Ejection fraction measured 67% with normal TID at 0.82. CONCLUSION: 1. Normal Lexiscan Cardiolite SPECT MPI. 2. No tomographic evidence of ischemia or prior myocardial infarction. 3. Normal left ventricular volume and wall motion, ejection fraction 67% with normal TID at 0.82. No previous studies are available for comparison. Transcribed By: NTS 08/04/22 1343 Dictated By: Jimbo Damon MD, [facility] 08/04/22 1247 Signed By: 08/04/22 1349 Normal [facility] Renal Function Panelon 08-04 Albumin [Mass/Vol] 3.0 g/dL Low 3.5-5.7 [facility] Comment on above: Performed By: #### C MP #### [facility] [address] Anion gap [Moles/Vol] 13.5 mmol/L Normal 6.0-15.0 [facility] Comment on above: Performed By: #### C MP #### [facility] [address] [place] [address] [place] Calcium [Mass/Vol] 7.9 mg/dL Low 8.6-10.3 [facility] Comment on above: Performed By: #### C MP #### [facility] [address] [place] [id number] [place] Chloride [Moles/Vol] 97 mmol/L Low 98-107 [facility] Comment on above: Performed By: #### C MP #### [facility] [address] [place] [id number] [place] CO2 [Moles/Vol] 26.3 mmol/L Normal 21.0-31.0 [facility] Comment on above: Performed By: #### C MP #### [facility] [address] [place] [address] [place] Creatinine [Mass/Vol] 4.44 mg/dL Significant change up 0.6 0-1.20 [facility] Comment on above: Performed By: #### C MP #### [address] Creatinine Clr Calc Pharmacy 13.53 Normal [facility] Comment on above: Result Comment: PERF ORMED BY: [address] [place] [address] PATHOLOGIST EARLY MORNING BABYSITTER DANII HAYNES M.D. Performed By: #### C MP #### [address] GFR/1.73 sq M.predicted MDRD (S/P/Bld) [Vol rate/Area] 10.006 mL/min/{1.73_m2} Normal [facility] Comment on above: Performed By: #### C MP #### [address] Glucose [Mass/Vol] 136 mg/dL High 70-100 [facility] Comment on above: Result Comment: [facility] Glucose Reference Range is dependent on time and content of last meal. Glucose of more than 200 mg/dL in a nonstressed, ambulatory subject supports the diagnosis of Diabetes Mellitus. ADA recommended reference range Performed By: #### C MP #### [address] Phosphate [Mass/Vol] 4.2 mg/dL Normal 3.7-7.2 [facility] Comment on above: Performed By: #### C MP #### [address] Potassium [Moles/Vol] 3.8 mmol/L Normal 3.5-5.1 [facility] Comment on above: Performed By: #### C MP #### [address] Sodium [Moles/Vol] 133 mmol/L Low 136-145 [facility] Comment on above: Performed By: #### C MP #### [address] Urea nitrogen [Mass/Vol] 36 mg/dL High 7-25 [facility] Comment on above: Performed By: #### C MP #### [facility] [address] [place], [place] [id number] [facility] STR cardiac stress/lexiscano n 08-04-2022 STR cardiac stress/lexiscan [facility] [place] [address] [place] [address] Cardiac Stress Test Signed Patient: Amparo Castorena MR#: [id number] 68 : 1950 Acct:[id number] Age/Sex: 71 / F ADM Date: 08/02/22 Loc: Room: [address] [place] [address] Type: ADM IN Attending Dr: Levy Ward MD Copies to: Danii Rodriguez MD Ordering Provider: Danii Rodriguez MD Date of Service: 08/03/22 STR/STR cardiac stress/lexiscan: chest pain REASON FOR STUDY: Chest pain. History of coronary artery disease. PROCEDURE: The patient underwent a Lexiscan myocardial perfusion study. The patient was injected with 0.4 mg of Lexiscan, following which no symptoms reported. Blood pressure and heart response to Lexiscan was physiologic. Baseline ECG showed normal sinus rhythm. No ST-T changes. Following Lexiscan, no changes were seen. CONCLUSION: 1. Lexiscan Cardiolite stress test without diagnostic ST-T changes for ischemia. 2. No provoked chest pain or arrhythmia. 3. Appropriate hemodynamic response to Lexiscan. 4. Myocardial perfusion study will be dictated separately. Transcribed By: NTS 08/04/22 1359 Dictated By: Danii Rodriguez MD 08/04/22 1143 Signed By: 08/05/22 0802 [facility] Blood Cultureon 08-03-2022 Bacteria identified Cx Nom (Bld) NO GROWTH 5 DAYS PERFORMED BY: [place] [address] PATHOLOGIST EARLY MORNING BABYSITTER DANII HAYNES M.D. [facility] Comment on above: Performed By: #### C UBLD #### [facility] [address] [place] [address] Bacteria identified Cx Nom (Bld) NO GROWTH 5 DAYS PERFORMED BY: [place] [address] PATHOLOGIST EARLY MORNING BABYSITTER DANII HAYNES M.D. Normal [facility] Comment on above: Performed By: #### C UBLD #### [address] Complete Blood Count Auto Di ffon 08-03-2022 Basophils (Bld) [#/Vol] 0.0 10*3/uL Normal 0.0-0.2 [facility] Comment on above: Result Comment: PERF ORMED BY: [place] [address] PATHOLOGIST EARLY MORNING BABYSITTER DANII HAYNES M.D. Performed By: #### G LULS #### Point of Care testing , Basophils/100 WBC (Bld) 0.4 % Normal . [facility] Comment on above: Performed By: #### G LULS #### Point of Care testing , Eosinophils (Bld) [#/Vol] 0.3 10*3/uL Normal 0.0-0.45 [facility] Comment on above: Performed By: #### G LULS #### Point of Care testing , Eosinophils/100 WBC (Bld) 2.7 % Normal . [facility] Comment on above: Performed By: #### G LULS #### Point of Care testing , Erythrocyte distribution wid th (RBC) [Ratio] 14.8 % Normal 11.9-15.3 [facility] Comment on above: Performed By: #### G LULS #### Point of Care testing , Hematocrit (Bld) [Volume fraction] 25.9 % Low 34.0-46.4 [facility] Comment on above: Performed By: #### G LULS #### Point of Care testing , Hemoglobin (Bld) [Mass/Vol] 8.4 g/dL Low 11.8-15. 4 [facility] Comment on above: Performed By: #### G LULS #### Point of Care testing , Lymphocytes (Bld) [#/Vol] 2.0 10*3/uL Normal 1.00-4.8 [facility] Comment on above: Performed By: #### G MARLOLS #### Point of Care testing , Lymphocytes/100 WBC (Bld) 19.0 % Normal . [facility] Comment on above: Performed By: #### G LULS #### Point of Care testing , MCH (RBC) [Entitic mass] 29.6 pg Normal 24.7-34.3 [facility] Comment on above: Performed By: #### G LULS #### Point of Care testing , MCV (RBC) [Entitic vol] 91.1 fL Normal 80-100 [facility] Comment on above: Performed By: #### G LULS #### Point of Care testing , Mean Corpuscular HGB Conc 32.5 g/dL Normal 32.0-35.0 [facility] Comment on above: Performed By: #### G MARLOLS #### Point of Care testing , Monocytes (Bld) [#/Vol] 0.9 10*3/uL High 0.0-0.8 [facility] Comment on above: Performed By: #### G MARLOLS #### Point of Care testing , Monocytes/100 WBC (Bld) 9.0 % Normal . [facility] Comment on above: Performed By: #### G MARLOLS #### Point of Care testing , Neutrophils (Bld) [#/Vol] 7.1 10*3/uL Normal 1.8-7.7 [facility] Comment on above: Performed By: #### G LULS #### Point of Care testing , Neutrophils/100 WBC (Bld) 68.9 % Normal . [facility] Comment on above: Performed By: #### G LULS #### Point of Care testing , NRBC% 0.0 /100{WBC} Normal 0-0.5 [facility] Comment on above: Performed By: #### G LULS #### Point of Care testing , Platelet mean volume (Bld) [Entitic vol] 8.0 fL Normal 6.3-10.7 [facility] Comment on above: Performed By: #### G LULS #### Point of Care testing , Platelets (Bld) [#/Vol] 145 10*3/uL Low 150-450 [facility] Comment on above: Performed By: #### G LULS #### Point of Care testing , RBC (Bld) [#/Vol] 2.84 10*6/uL Low 3.60-5.00 [facility] Comment on above: Performed By: #### G LUMAMIE #### Point of Care testing , WBC (Bld) [#/Vol] 10.3 10*3/uL Normal 3.8-11.6 [facility] Comment on above: Performed By: #### G CAPRICE #### Point of Care testing , Glucose Poct Glucometerson 0 08-03-2022 Glucose [Mass/Vol] 144 mg/dL Normal [facility] Comment on above: Result Comment: [facility] Glucose Reference Range is dependent on time and content of last meal. Glucose of more than 200 mg/dL in a nonstressed, ambulatory subject supports the diagnosis of Diabetes Mellitus. PERFORMED BY: [place] [address] PATHOLOGIST EARLY MORNING BABYSITTER DANII HAYNES M.D. Performed By: #### C MP #### [facility] [address] [place] [address] Commemt1 Glu2: Cleaned Meter Normal [facility] Comment on above: Result Comment: PERF ORMED BY: [place] [address] PATHOLOGIST EARLY MORNING BABYSITTER DANII HAYNES M.D. Performed By: #### C MP #### [facility] [address] [place] [address] Glucose [Mass/Vol] 175 mg/dL Normal [facility] Comment on above: Result Comment: [facility] Glucose Reference Range is dependent on time and content of last meal. Glucose of more than 200 mg/dL in a nonstressed, ambulatory subject supports the diagnosis of Diabetes Mellitus. Performed By: #### C MP #### [address] Complete Blood Count Auto Di ffon 08-02-2022 Basophils (Bld) [#/Vol] 0.1 10*3/uL Normal 0.0-0.2 [facility] Comment on above: Result Comment: PERF ORMED BY: [place] [address] PATHOLOGIST EARLY MORNING BABYSITTER DANII HAYNES M.D. Performed By: #### C BC #### [address] Basophils/100 WBC (Bld) 0.7 % Normal . [facility] Comment on above: Performed By: #### C BC #### [address] Eosinophils (Bld) [#/Vol] 0.2 10*3/uL Normal 0.0-0.45 [facility] Comment on above: Performed By: #### C BC #### [address] Eosinophils/100 WBC (Bld) 1.7 % Normal . [facility] Comment on above: Performed By: #### C BC #### [address] Erythrocyte distribution wid th (RBC) [Ratio] 15.3 % Normal 11.9-15.3 [facility] Comment on above: Performed By: #### C BC #### [address] Hematocrit (Bld) [Volume fraction] 27.4 % Low 34.0-46.4 [facility] Comment on above: Performed By: #### C BC #### [address] Hemoglobin (Bld) [Mass/Vol] 8.8 g/dL Low 11.8-15. 4 [facility] Comment on above: Performed By: #### C BC #### [address] Lymphocytes (Bld) [#/Vol] 2.0 10*3/uL Normal 1.00-4.8 [facility] Comment on above: Performed By: #### C BC #### [address] Lymphocytes/100 WBC (Bld) 16.7 % Normal . [facility] Comment on above: Performed By: #### C BC #### [address] MCH (RBC) [Entitic mass] 29.3 pg Normal 24.7-34.3 [facility] Comment on above: Performed By: #### C BC #### [address] MCV (RBC) [Entitic vol] 91.8 fL Normal 80-100 [facility] Comment on above: Performed By: #### C BC #### [address] Mean Corpuscular HGB Conc 32.0 g/dL Normal 32.0-35.0 [facility] Comment on above: Performed By: #### C BC #### [address] Monocytes (Bld) [#/Vol] 0.8 10*3/uL Normal 0.0-0.8 [facility] Comment on above: Performed By: #### C BC #### [address] Monocytes/100 WBC (Bld) 7.1 % Normal . [facility] Comment on above: Performed By: #### C BC #### [place] [address] [place] Neutrophils (Bld) [#/Vol] 8.6 10*3/uL High 1.8-7.7 [facility] Comment on above: Performed By: #### C BC #### [address] Neutrophils/100 WBC (Bld) 73.8 % Normal . [facility] Comment on above: Performed By: #### C BC #### [facility] [address] NRBC% 0.0 /100{WBC} Normal 0-0.5 [facility] Comment on above: Performed By: #### C BC #### [facility] [address] Platelet mean volume (Bld) [Entitic vol] 8.2 fL Normal 6.3-10.7 [facility] Comment on above: Performed By: #### C BC #### [facility] [address] Platelets (Bld) [#/Vol] 145 10*3/uL Low 150-450 [facility] Comment on above: Performed By: #### C BC #### [address] RBC (Bld) [#/Vol] 2.98 10*6/uL Low 3.60-5.00 [facility] Comment on above: Performed By: #### C BC #### [address] WBC (Bld) [#/Vol] 11.7 10*3/uL High 3.8-11.6 [facility] [facility] Comment on above: Performed By: #### C BC #### [address] Comprehensive Metabolic Pane tamika 08-02-2022 Albumin [Mass/Vol] 3.0 g/dL Low 3.5-5.7 [facility] Comment on above: Performed By: #### C MP #### [address] Albumin/Globulin [Mass ratio] 0.7 {ratio} Normal [facility] Comment on above: Performed By: #### C MP #### [address] ALP [Catalytic activity/Vol] 101 U/L Normal 34-104 [facility] Comment on above: Performed By: #### C MP #### [facility] [address] ALT [Catalytic activity/Vol] 18 U/L Normal 7-52 [facility] Comment on above: Performed By: #### C MP #### [facility] [address] Anion gap [Moles/Vol] 14.2 mmol/L Normal 6.0-15.0 [facility] Comment on above: Performed By: #### C MP #### [address] AST [Catalytic activity/Vol] 19 U/L Normal 13-39 [facility] Comment on above: Performed By: #### C MP #### [address] Bilirubin [Mass/Vol] 0.5 mg/dL Normal 0.3-1.0 [facility] Comment on above: Performed By: #### C MP #### [address] Calcium [Mass/Vol] 7.6 mg/dL Low 8.6-10.3 [facility] Comment on above: Performed By: #### C MP #### [address] Chloride [Moles/Vol] 98 mmol/L Normal 98-107 [facility] Comment on above: Performed By: #### C MP #### [place] [address] [place] CO2 [Moles/Vol] 25.4 mmol/L Normal 21.0-31.0 [facility] Comment on above: Performed By: #### C MP #### [address] Creatinine [Mass/Vol] 6.16 mg/dL Significant change up 0.6 0-1.20 [facility] Comment on above: Performed By: #### C MP #### [address] Creatinine Clr Calc Pharmacy 9.83 Normal [facility] Comment on above: Result Comment: PERF ORMED BY: [address] [place] [address] PATHOLOGIST EARLY MORNING BABYSITTER DANII HAYNES M.D. Performed By: #### C MP #### [address] GFR/1.73 sq M.predicted MDRD (S/P/Bld) [Vol rate/Area] 6.755 mL/min/{1.73_m2} Normal [facility] Comment on above: Performed By: #### C MP #### [address] Globulin (S) [Mass/Vol] 4.5 g/dL Normal [facility] Comment on above: Performed By: #### C MP #### [address] Glucose [Mass/Vol] 165 mg/dL High 70-100 [facility] Comment on above: Result Comment: [facility] Glucose Reference Range is dependent on time and content of last meal. Glucose of more than 200 mg/dL in a nonstressed, ambulatory subject supports the diagnosis of Diabetes Mellitus. ADA recommended reference range Performed By: #### C MP #### [address] Potassium [Moles/Vol] 4.6 mmol/L Normal 3.5-5.1 [facility] Comment on above: Performed By: #### C MP #### [address] Protein [Mass/Vol] 7.5 g/dL Normal 6.4-8.9 [facility] Comment on above: Performed By: #### C MP #### [address] Sodium [Moles/Vol] 133 mmol/L Low 136-145 [facility] Comment on above: Performed By: #### C MP #### [facility] [address] Urea nitrogen [Mass/Vol] 47 mg/dL High 7-25 [facility] Comment on above: Performed By: #### C MP #### [facility] [address] Glucose Poct Glucometerson 0 - Glucose [Mass/Vol] 180 mg/dL Normal [facility] Comment on above: Result Comment: [facility] Glucose Reference Range is dependent on time and content of last meal. Glucose of more than 200 mg/dL in a nonstressed, ambulatory subject supports the diagnosis of Diabetes Mellitus. PERFORMED BY: [place] [address] PATHOLOGIST EARLY MORNING BABYSITTER DANII HAYNES M.D. Performed By: #### G CAPRICE #### Point of Care testing , Glucose [Mass/Vol] 166 mg/dL Normal [facility] Comment on above: Result Comment: [facility] Glucose Reference Range is dependent on time and content of last meal. Glucose of more than 200 mg/dL in a nonstressed, ambulatory subject supports the diagnosis of Diabetes Mellitus. PERFORMED BY: [place] [address] PATHOLOGIST EARLY MORNING BABYSITTER DANII HAYNES M.D. Performed By: #### B MP, CBC #### [address] Glucose [Mass/Vol] 118 mg/dL Normal [facility] Comment on above: Result Comment: [facility] Glucose Reference Range is dependent on time and content of last meal. Glucose of more than 200 mg/dL in a nonstressed, ambulatory subject supports the diagnosis of Diabetes Mellitus. PERFORMED BY: [place] [address] PATHOLOGIST EARLY MORNING BABYSITTER DANII HAYNES M.D. Performed By: #### G LULS #### Point of Care testing , Basic Metabolic Panelon 04-0 Anion gap [Moles/Vol] 16.7 mmol/L High 6.0-15.0 [facility] Comment on above: Performed By: #### B MP, CBC #### [facility] [address] [place] [address] [place] Calcium [Mass/Vol] 8.2 mg/dL Low 8.6-10.3 [facility] Comment on above: Performed By: #### B MP, CBC #### [facility] [address] [place] [address] [place] Chloride [Moles/Vol] 99 mmol/L Normal 98-107 [facility] Comment on above: Performed By: #### B MP, CBC #### [facility] [address] [place] [address] [place] CO2 [Moles/Vol] 22.6 mmol/L Normal 21.0-31.0 [facility] Comment on above: Performed By: #### B MP, CBC #### [facility] [address] [place] [address] [place] Creatinine [Mass/Vol] 4.98 mg/dL Significant change up 0.6 0-1.20 [facility] Comment on above: Performed By: #### B MP, CBC #### [facility] [address] [place] [address] [place] Creatinine Clr Calc Pharmacy 11.87 [facility] Comment on above: Result Comment: PERF ORMED BY: [place] [address] PATHOLOGIST EARLY MORNING BABYSITTER DANII HAYNES M.D. Performed By: #### B MP, CBC #### [facility] [address] [place] [address] [place] GFR/1.73 sq M.predicted MDRD (S/P/Bld) [Vol rate/Area] 8.719 mL/min/{1.73_m2} [facility] Comment on above: Performed By: #### B MP, CBC #### [facility] [address] [place] [address] [place] Glucose [Mass/Vol] 129 mg/dL High 70-100 [facility] Comment on above: Result Comment: [facility] Glucose Reference Range is dependent on time and content of last meal. Glucose of more than 200 mg/dL in a nonstressed, ambulatory subject supports the diagnosis of Diabetes Mellitus. ADA recommended reference range Performed By: #### B MP, CBC #### [address] Potassium [Moles/Vol] 4.3 mmol/L Normal 3.5-5.1 [facility] Comment on above: Performed By: #### B MP, CBC #### [address] Sodium [Moles/Vol] 134 mmol/L Low 136-145 [facility] Comment on above: Performed By: #### B MP, CBC #### [address] Urea nitrogen [Mass/Vol] 37 mg/dL High 7-25 [facility] Comment on above: Performed By: #### B MP, CBC #### [facility] [address] [place] [address] Blood Cultureon 08-01-2022 Bacteria identified Cx Nom (Bld) Gram stain results called at 1517 on 08/02/22 Gram Stain Gram Positive Cocci in Clusters ORGANISM: Staphylococcus epidermidis (O:STAEPI) Organism Comments For MARIANNE Refer to Final Report of Blood Culture Collected Date 08/01/22 PERFORMED BY: [place] [address] PATHOLOGIST EARLY MORNING BABYSITTER DANII HAYNES M.D. [facility] Comment on above: Performed By: #### G CAPRICE #### Point of Care testing , Bacteria identified Cx Nom (Bld) BioFire BCID Panel results called at 1240 on 08/02/22 Gram Stain Gram Positive Cocci in Clusters ORGANISM: Staphylococcus epidermidis (O:STAEPI) Aerobic MARIANNE Charge (PCMIC38) SUSCEPTIBILITY ORGANISM: O:STAEPI ANTIBIOTIC INTERPRETATION MARIANNE Azithromycin S <2 Ciprofloxacin I 2 Daptomycin S <0.5 Levofloxacin S <1 Linezolid S <1 Oxacillin S <0.25 Penicillin S 0.06 Tetracycline S <4 Trimethoprim/Sulfamethoxazole S <0.5 Vancomycin S 2 BioFire BCID Panel results called at 1240 on 08/02/22 Staphylococcus aureus DNA [Presence] by AURA with non-probe detection in Positive blood culture Not detected Bacteroides fragilis DNA [Presence] by AURA with non-probe detection in Positive blood culture Not detected Merle auris DNA [Presence] by AURA with non-probe detection in Positive blood culture Not detected Merle albicans DNA [Presence] by AURA with non-probe detection in Positive blood culture Not detected Acinetobacter calcoaceticus-baumannii complex DNA [Presence] by AURA with non-probe detection in Positive blood culture Not detected Cryptococcus neoformans or gattii 9002 Not detected Cephalosporin resistance blaCTX-M gene [Presence] by Molecular method Not Applicable Escherichia coli Not detected Enterobacterales DNA [Presence] by AURA with non-probe detection in Positive blood culture Not detected Enterobacter cloacae complex DNA [Presence] by AURA with non-probe detection in Positive blood culture Not detected Staphylococcus epidermidis DNA [Presence] by AURA with non-probe detection in Positive blood culture Detected Enterococcus faecalis DNA [Presence] by AURA with non-probe detection in Positive blood culture Not detected Enterococcus faecium DNA [Presence] by AURA with non-probe detection in Positive blood culture Not detected Emrle glabrata DNA [Presence] by AURA with non-probe detection in Positive blood culture Not detected Haemophilus influenzae (reported as H flu) Not detected Carbapenem resistance blaIMP gene [Presence] by Molecular method Not Applicable Klebsiella aerogenes DNA [Presence] by AURA with non-probe detection in Positive blood culture Not detected Klebsiella pneumoniae+Klebsiella variicola+Klebsiella quasipneumoniae DNA [Presence] by AURA with non-probe detection in Positive blood culture Not detected Klebsiella oxytoca DNA [Presence] by AURA with non-probe detection in Positive blood culture Not detected Carbapenem resistance blaKPC gene [Presence] by Molecular method Not Applicable Merle krusei DNA [Presence] by AURA with non-probe detection in Positive blood culture Not detected Listeria monocytogenes (reported as listeriosis) Not detected Staphylococcus lugdunensis DNA [Presence] by AURA with non-probe detection in Positive blood culture Not detected Methicillin resistance mecA+mecC genes+SCCmec+OrfX junction [Presence] by Molecular method Not Applicable Carbapenem resistance blaNDM gene [Presence] by Molecular method Not Applicable Neisseria meningitidis - reported as meningococcal disease Not detected Carbapenem resistance melissa OXA-48-like gene [Presence] by Molecular method Not Applicable Merle parapsilosis DNA [Presence] by AURA with non-probe detection in Positive blood culture Not detected Streptococcus pneumoniae - reported at ISP Not detected Proteus sp DNA [Presence] by AURA with non-probe detection in Positive blood culture Not detected Pseudomonas aeruginosa DNA [Presence] by AURA with non-probe detection in Positive blood culture Not detected Salmonella sp DNA [Presence] by AURA with non-probe detection in Positive blood culture Not detected Serratia marcescens DNA [Presence] by AURA with non-probe detection in Positive blood culture Not detected Staphylococcus sp DNA [Presence] by AURA with non-probe detection in Positive blood culture Detected Stenotrophomonas maltophilia DNA [Presence] by AURA with non-probe detection in Positive blood culture Not detected Group A (Streptococcus pyogenes) [id number] Not detected Group B Strep (Streptococcus agalactiae) Not detected Streptococcus sp DNA [Presence] by AURA with non-probe detection in Positive blood culture Not detected Merle tropicalis DNA [Presence] by AURA with non-probe detection in Positive blood culture Not detected Vancomycin resistance Sergio + vanB genes [Presence] by Molecular method Not Applicable Carbapenem resistance blaVIM gene [Presence] by Molecular method Not Applicable Colistin resistance mcr-1 gene [Presence] by Molecular method Not Applicable Methicillin resistance mecA+mecC genes [Presence] in Isolate or Specimen by Molecular genetics method Not detected RESIS. GENE COMMENT 1 Antimicrobial resistance can occur via multiple RESIS. GENE COMMENT 2 mechanisms. A Not Detected result for antimicrobial RESIS. GENE COMMENT 3 resistance gene(s) does not indicate anti (more content not included)... Normal [facility] Comment on above: Performed By: #### G LULS #### Point of Care testing , Complete Blood Count Auto Di ffon 08-01-2022 Basophils (Bld) [#/Vol] 0.1 10*3/uL Normal 0.0-0.2 [facility] Comment on above: Result Comment: PERF ORMED BY: [facility] [address] [place] [address] PATHOLOGIST EARLY MORNING BABYSITTER DANII HAYNES M.D. Performed By: #### B MP, CBC #### [facility] [address] [place] [address] [place] Basophils/100 WBC (Bld) 0.3 % Normal . F [facility] Comment on above: Performed By: #### B MP, CBC #### [facility] [address] Eosinophils (Bld) [#/Vol] 0.2 10*3/uL Normal 0.0-0.45 [facility] Comment on above: Performed By: #### B MP, CBC #### [facility] [address] Eosinophils/100 WBC (Bld) 1.1 % Normal . [facility] Comment on above: Performed By: #### B MP, CBC #### [address] Erythrocyte distribution wid th (RBC) [Ratio] 15.2 % Normal 11.9-15.3 [facility] Comment on above: Performed By: #### B MP, CBC #### [address] Hematocrit (Bld) [Volume fraction] 28.8 % Low 34.0-46.4 [facility] Comment on above: Performed By: #### B MP, CBC #### [address] Hemoglobin (Bld) [Mass/Vol] 9.1 g/dL Low 11.8-15. 4 [facility] Comment on above: Performed By: #### B MP, CBC #### [place] [address] [place] Lymphocytes (Bld) [#/Vol] 2.0 10*3/uL Normal 1.00-4.8 [facility] Comment on above: Performed By: #### B MP, CBC #### [facility] [address] [place] [address] [place] Lymphocytes/100 WBC (Bld) 12.7 % Normal . [facility] Comment on above: Performed By: #### B MP, CBC #### [address] [address] [place] MCH (RBC) [Entitic mass] 29.1 pg Normal 24.7-34.3 [facility] Comment on above: Performed By: #### B MP, CBC #### [address] MCV (RBC) [Entitic vol] 92.0 fL Normal 80-100 F [facility] Comment on above: Performed By: #### B MP, CBC #### [address] Mean Corpuscular HGB Conc 31.6 g/dL Low 32.0-35.0 [facility] Comment on above: Performed By: #### B MP, CBC #### [address] Monocytes (Bld) [#/Vol] 1.5 10*3/uL High 0.0-0.8 [facility] Comment on above: Performed By: #### B MP, CBC #### [address] Monocytes/100 WBC (Bld) 9.3 % Normal . F [facility] Comment on above: Performed By: #### B MP, CBC #### [address] Neutrophils (Bld) [#/Vol] 11.9 10*3/uL High 1.8-7.7 [facility] Comment on above: Performed By: #### B MP, CBC #### [address] Neutrophils/100 WBC (Bld) 76.6 % Normal . [facility] Comment on above: Performed By: #### B MP, CBC #### [address] NRBC% 0.0 /100{WBC} Normal 0-0.5 [facility] Comment on above: Performed By: #### B MP, CBC #### [address] Platelet mean volume (Bld) [Entitic vol] 8.6 fL Normal 6.3-10.7 [facility] Comment on above: Performed By: #### B MP, CBC #### [facility] [address] Platelets (Bld) [#/Vol] 123 10*3/uL Significant change down 150-450 [facility] Comment on above: Performed By: #### B MP, CBC #### [address] RBC (Bld) [#/Vol] 3.13 10*6/uL Low 3.60-5.00 [facility] Comment on above: Performed By: #### B MP, CBC #### [address] WBC (Bld) [#/Vol] 15.6 10*3/uL High 3.8-11.6 [facility] Comment on above: Performed By: #### B MP, CBC #### [address] ECG 12 lead ECGon 08-01-2022 ECG 12 lead ECG [facility] Main [place] [address] [place] [address] Electrocardiograph Report Signed Patient: Amparo Castorena MR#: [id number] 68 : 1950 Acct:[id number] Age/Sex: 71 / F ADM Date: 08/02/22 Loc: Room: [address] [place] [address] Type: ADM IN Attending Dr: Yash Ortega MD Ordering Provider: Camila Young MD Date of Service: 08/01/2212/16/499 ECG/ECG 12 lead ECG: Chest pain Copies to: Test Reason : Blood Pressure : / mmHG Vent. Rate : 079 BPM Atrial Rate : 079 BPM P-R Int : 224 ms QRS Dur : 090 ms QT Int : 416 ms P-R-T Axes : 047 010 084 degrees QTc Int : 477 ms Sinus rhythm with 1st degree AV block Nonspecific ST and T wave abnormality Abnormal ECG When compared with ECG of 31-JUL-2022 15:08, ME interval has increased Confirmed by [facility] ([id number]) on 08/03/2022 10:28:47 AM Referred By: Electronically Signed By:SCAR MARKS Transcribed By: MUS Signed By Juan Menchaca MD 08/03/22 1028 Normal [facility] echo transthoracicon [facility] echo transthoracic [facility] [place] [address] Echocardiogram Signed Patient: Amparo Castorena MR#: [id number] 68 : 1950 Acct:[id number] Age/Sex: 71 / F ADM Date: 07/31/22 Loc: Room: [address] [place] [address] Type: ADM IN Attending Dr: Yash Ortega MD Ordering Provider: Yash Ortega MD Date of Service: 08/01/2212/17/951 [facility] echo transthoracic: chest pain Copies to: MD Yash Arndt MD BSA: 2.1 m2 BP: 138/76 mmHg HR: 80 Reason For Study: chest pain History: CKD, CVA, DM, HTN, HLD, [place], PVD, stents Interpretation Summary Ejection Fraction = 55-60%. The left ventricular wall motion is normal. Mild concentric left ventricular hypertrophy. A variety of Doppler measurements indicate impaired left ventricular relaxation, which is associated with grade I/IV or mild diastolic dysfunction. There is trace mitral regurgitation. There is trace tricuspid regurgitation. There is no comparison study available. Procedure/Quality: A two-dimensional transthoracic echocardiogram with color flow, Doppler and injection of contrast agent Definity was performed. A two- dimensional transthoracic echocardiogram with color flow and Doppler was performed. The study was technically fair in quality. Left Ventricle: The left ventricular size is normal. Mild concentric left ventricular hypertrophy. Ejection Fraction = 55-60%. A variety of Doppler measurements indicate impaired left ventricular relaxation, which is associated with grade I/IV or mild diastolic dysfunction. The left ventricular wall motion is normal. Left Atrium: The left atrium appears normal in size. Right Atrium: The right atrium appears normal in size. Right Ventricle: The right ventricular size, thickness and function are normal. Aortic Valve: The aortic valve is normal in structure and function. No aortic regurgitation is present. Mitral Valve: The mitral valve is normal in structure and function. There is trace mitral regurgitation. Tricuspid Valve: The tricuspid valve is normal in structure and function. There is trace tricuspid regurgitation. Pulmonic Valve: The pulmonic valve is normal in structure and function. Arteries: The aortic root is normal size. Pericardium/Pleura: No pericardial effusion seen. There is no pleural effusion. IVC/Hepatic Viens: The inferior vena cava is normal in size, with a normal collapsibility index. Measurements with Normals IVSd: 1.3 cm (0.7-1.1 cm)LVIDd: 5.3 cm (3.7-5.4 cm) LVPWd: 1.1 cm (0.7-1.1 cm)LVIDs: 3.4 cm (2.3-3.6 cm) LA dimension: 4.3 cm(2.3-4.0 cm)Ao root diam: 2.8 cm(2.0-3.6 cm) Doppler with Normals LV V1 max: 70.3 cm/sec (0.7-1.7m/s)MV E max meng: 101.0 cm/sec(0.8-1.3m/s) MV A max meng: 106.7 cm/sec(0.0-0.0m/s) MV E/A: 0.95 (<1.5) MMode/2D Measurements Calculations TAPSE: 2.2 cm FS: 35.8 % Ao root area: LVLd ap4: 9.4 cm RV S Meng: EDV(Teich): 6.1 cm2 EDV(MOD-sp4): 10.2 cm/sec 137.5 ml 96.3 ml ESV(Teich): LVLs ap4: 8.1 cm 48.4 ml ESV(MOD-sp4): EF(Teich): 64.8 % 31.7 ml EF(MOD-sp4): 67.1 % __ SV(MOD-sp4): LAV(MOD-sp4): LA A4 area: 19.7 cm2 64.6 ml 47.7 ml LA length (vol): 6.3 cm Doppler Measurements Calculations MV dec time: E/E' lat: MV dec slope: Ao V2 max: 0.21 sec 15.5 162.9 cm/sec E/E' med: 492.2 cm/sec2 Ao max P.6 mmHg 13.1 Ao mean P.2 mmHg Ao V2 mean: 118.5 cm/sec Ao V2 VTI: 34.7 cm __ LV V1 max P.0 mmHg LV V1 mean P.2 mmHg LV V1 mean: 51.9 cm/sec LV V1 VTI: 15.5 cm Transcribed By: ARJUN Performed At: 08/01/22 1123 Signed By: Danii Rodriguez MD 08/01/22 1334 Normal [facility] Glucose Poct Glucometerson 0 08-01-2022 Glucose [Mass/Vol] 159 mg/dL Normal [facility] Comment on above: Result Comment: [facility] Glucose Reference Range is dependent on time and content of last meal. Glucose of more than 200 mg/dL in a nonstressed, ambulatory subject supports the diagnosis of Diabetes Mellitus. PERFORMED BY: [place] [address] PATHOLOGIST EARLY MORNING BABYSITTER DANII HAYNES M.D. Performed By: #### C MP #### [address] Glucose [Mass/Vol] 114 mg/dL Normal [facility] Comment on above: Result Comment: [facility] Glucose Reference Range is dependent on time and content of last meal. Glucose of more than 200 mg/dL in a nonstressed, ambulatory subject supports the diagnosis of Diabetes Mellitus. PERFORMED BY: [place] [address] PATHOLOGIST EARLY MORNING BABYSITTER DANII HAYNES M.D. Performed By: #### B MP, CBC #### [facility] [address] [place] [address] [place] Glucose [Mass/Vol] 170 mg/dL Normal [facility] Comment on above: Result Comment: [facility] Glucose Reference Range is dependent on time and content of last meal. Glucose of more than 200 mg/dL in a nonstressed, ambulatory subject supports the diagnosis of Diabetes Mellitus. PERFORMED BY: [place] [address] PATHOLOGIST EARLY MORNING BABYSITTER DANII HAYNES M.D. Performed By: #### C MP #### [facility] [address] [place] [address] Glucose [Mass/Vol] 152 mg/dL Normal [facility] Comment on above: Result Comment: [facility] Glucose Reference Range is dependent on time and content of last meal. Glucose of more than 200 mg/dL in a nonstressed, ambulatory subject supports the diagnosis of Diabetes Mellitus. PERFORMED BY: [place] [address] PATHOLOGIST EARLY MORNING BABYSITTER DANII HAYNES M.D. Performed By: #### G LULS #### Point of Care testing , Glucose [Mass/Vol] 123 mg/dL Normal [facility] Comment on above: Result Comment: [facility] Glucose Reference Range is dependent on time and content of last meal. Glucose of more than 200 mg/dL in a nonstressed, ambulatory subject supports the diagnosis of Diabetes Mellitus. PERFORMED BY: [place] [address] PATHOLOGIST EARLY MORNING BABYSITTER DANII HAYNES M.D. Performed By: #### G LULS #### Point of Care testing , Lipid Panelon 08-01-2022 Cholesterol [Mass/Vol] 105 mg/dL Low 140-200 [facility] Comment on above: Result Comment: Chol less than 200 mg/dl low risk Chol 201-239 mg/dl borderline risk Chol 240 mg/dl and greater high risk Performed By: #### G LULS #### Point of Care testing , Cholesterol in HDL [Mass/Vol] 32 mg/dL Low 35-85 [facility] Comment on above: Result Comment: HDL CHOL ATP-III CLASSIFICATION Cardiovascular Risk HDL > or equal to 60 mg/dL LOW HDL < 40 mg/dL HIGH Performed By: #### G LULS #### Point of Care testing , Cholesterol.total/Cholestero l in HDL [Mass ratio] 3.3 {ratio} Normal <5.0 [facility] Comment on above: Result Comment: PERF ORMED BY: [facility] [address] [facility] [place] [address] PATHOLOGIST EARLY MORNING BABYSITTER DANII HAYNES M.D. Performed By: #### G LULS #### Point of Care testing , LDL Cholesterol,Calculated 45 mg/dL Normal 0-100 [facility] Comment on above: Result Comment: LDL ATP III CLASSIFICATION LDL less than 100 mg/dL Optimal LDL 100-129 mg/dL Near or above optimal LDL 130-159 mg/dL Borderline high LDL 160-189 mg/dL High LDL greater than 189 mg/dL Very high Performed By: #### G LULS #### Point of Care testing , Triglyceride w/Reflex 140 mg/dL Normal 0-149 [facility] Comment on above: Result Comment: TRIG ATP III CLASSIFICATION TRIG less than 150 mg/dL Normal TRIG 150-199 mg/dL Borderline high TRIG 200-500 mg/dL High TRIG greater than 500 mg/dL Very high Standard traceable to the Center for Disease Conrtrol and Prevention (CDC) test method. Performed By: #### G LULS #### Point of Care testing , VLDL CHOLESTEROL 28 mg/dL Normal [facility] Comment on above: Performed By: #### G LULS #### Point of Care testing , Troponin I High Sensitivityo n 08-01-2022 Troponin I High Sensitivity 11.3 pg/mL Normal 0.0-15.0 [facility] Comment on above: Result Comment: PERF ORMED BY: [facility] [address] [address] PATHOLOGIST EARLY MORNING BABYSITTER DANII HAYNES M.D. Performed By: #### G LULS #### Point of Care testing , Activated partial thrombopla stin time (aPTT) in platelet poor plasma by coagulation aOrdered By: Malcolm Moss on 07-31-2022 aPTT Coag (PPP) [Time] 28.0 s 25.1-36.5 [facility] Alanine aminotransferase [En zymatic activity/volume] in Serum or PlasmaOrdered By: Malcolm Moss on 07-31-2022 ALT [Catalytic activity/Vol] 24 U/L Normal 7-52 [facility] Comment on above: Performed By: #### G LULS #### Point of Care testing , Albumin [Mass/volume] in Ser um or Plasma by Bromocresol green (BCG) dye binding methoOrdered By: Malcolm Moss on 07-31-2022 Albumin BCG dye [Mass/Vol] 3.6 g/dL 3.5-5.7 [facility] Alkaline phosphatase [Enzyma tic activity/volume] in Serum or PlasmaOrdered By: Malcolm Moss on 07-31-2022 ALP [Catalytic activity/Vol] 124 U/L High 34-104 [facility] Comment on above: Performed By: #### G LULS #### Point of Care testing , Aspartate aminotransferase [ Enzymatic activity/volume] in Serum or PlasmaOrdered By: Malcolm Moss on 07-31-2022 AST [Catalytic activity/Vol] 22 U/L Normal 13-39 [facility] Comment on above: Performed By: #### G LULS #### Point of Care testing , Automated erythrocytes count in urine sediment (number/area)Ordered By: Malcolm Moss on 07-31-2022 RBC Auto (Urine sed) [#/Area] 50-100 [HPF] 0-4 [facility] Automated leukocytes count i n urine sediment (number/area)Ordered By: Malcolm Moss on 07-31-2022 WBC Auto (Urine sed) [#/Area] Innumerable [HPF] 0-4 [facility] Automated urine hyaline cast s count (number/volume)Ordered By: Malcolm Moss on 07-31-2022 Hyaline casts Auto (U) [#/Vol] 5-9 [LPF] 0-1 [facility] B-Type Natriuretic Peptideon 07-31-2022 Natriuretic peptide B (Bld) [Mass/Vol] 57.0 pg/mL Normal 5-100 [facility] Comment on above: Result Comment: PERF ORMED BY: [facility] [place] [id number] PATHOLOGIST EARLY MORNING BABYSITTER DANII HAYNES M.D. Performed By: #### G LULS #### Point of Care testing , Basic Metabolic Panelon Creatinine Clr Calc Pharmacy 14.63 Normal [facility] Comment on above: Performed By: #### G LULS #### Point of Care testing , GFR/1.73 sq M.predicted MDRD (S/P/Bld) [Vol rate/Area] 10.913 mL/min/{1.73_m2} Normal [facility] Comment on above: Performed By: #### G LULS #### Point of Care testing , Basophils Auto (Bld) [#/Vol] Ordered By: Malcolm Moss on 07-31-2022 Basophils (Bld) [#/Vol] 0.1 10*3/uL 0.0-0.2 [facility] Basophils/100 WBC Auto (Bld) Ordered By: Malcolm Moss on 07-31-2022 Basophils/100 WBC (Bld) 0.4 % . [facility] Bilirubin Auto test strip Ql (U)Ordered By: Malcolm Moss on 07-31-2022 Bilirubin Ql (U) Negative Negative [facility] Bilirubin.direct [Mass/volum e] in Serum or PlasmaOrdered By: Malcolm Moss on 07-31-2022 Bilirubin.direct [Mass/Vol] 0.10 mg/dL 0.03-0.1 8 [facility] Bilirubin.total [Mass/volume ] in Serum or PlasmaOrdered By: Malcolm Moss on 07-31-2022 Bilirubin [Mass/Vol] 0.6 mg/dL Normal 0.3-1.0 [facility] Comment on above: Performed By: #### G LULS #### Point of Care testing , CBC AUTO DIFFon 07-31-2022 BASO # 0.1 103/ul Normal 0.0-0.1 [facility] Comment on above: Performed By: #### U SUNITA, MG, RENAL #### [facility] [address] [place] [address] Dr. Silver Harrison Basophils/100 WBC (Bld) 0.6 % Normal 0.2-2.0 [facility] Comment on above: Performed By: #### U SUNITA, MG, RENAL #### [facility] [address] [place] [address] Dr. Silver Harrison EO # 0.3 103/ul Normal 0.0-0.7 [facility] Comment on above: Performed By: #### U SUNITA, MG, RENAL #### [facility] [address] [place] [address] Dr. Silver Harrison Eosinophils/100 WBC (Bld) 2.4 % Normal 0.9-7.0 [facility] Comment on above: Performed By: #### U SUNITA, MG, RENAL #### [facility] [address] [place] [address] Dr. Silver Harrison Erythrocyte distribution wid th (RBC) [Ratio] 14.1 % Normal 11.0-15.0 [facility] Comment on above: Performed By: #### U SUNITA, MG, RENAL #### [facility] [address] [place] [address] Dr. Silver Harrison Hematocrit (Bld) [Volume fraction] 33.7 % Critically low 36.0-48.0 [facility] Comment on above: Performed By: #### U SUNITA, MG, RENAL #### [facility] [address] [place] [address] Dr. Silver Harrison Hemoglobin (Bld) [Mass/Vol] 10.1 g/dL Critically low 12.0 -16.0 [facility] Comment on above: Performed By: #### U SUNITA, MG, RENAL #### [facility] [address] [place] [address] Dr. Silver Harrison IG # 0.07 10e3/ul Critically high 0.00-0.03 [facility] Comment on above: Performed By: #### U SUNITA, MG, RENAL #### [facility] [address] [address] [address] Silver Harrison IG % 0.6 % Critically high 0.0-0.5 [facility] Comment on above: Performed By: #### U SUNITA, MG, RENAL #### [facility] [address] [address] [address] Silver Harrison LYMPH # 2.4 103/ul Normal 1.2-3.8 [facility] Comment on above: Performed By: #### U SUNITA, MG, RENAL #### [facility] [address] [address] [address] Silver Harrison Lymphocytes/100 WBC (Bld) 21.6 % Normal 20.5-60.0 [facility] Comment on above: Performed By: #### U SUNITA, MG, RENAL #### [facility] [address] [address] [address] Silver Harrison MANUAL DIFF REQ NO Normal [facility] Comment on above: Performed By: #### U SUNITA, MG, RENAL #### [facility] [address] [address] [address] Silver Harrison MCH (RBC) [Entitic mass] 28.6 pg Normal 26.7-34.0 [facility] Comment on above: Performed By: #### U SUNITA, MG, RENAL #### [facility] [address] [address] [address] Silver Harrison MCHC (RBC) [Mass/Vol] 30.0 g/dL Normal 29.9-35.2 [facility] Comment on above: Performed By: #### U SUNITA, MG, RENAL #### [facility] [address] [address] [address] Silver Harrison MCV (RBC) [Entitic vol] 95.5 fL Normal 81.0-99.0 [facility] Comment on above: Performed By: #### U SUNITA, MG, RENAL #### [facility] [address] [address] [address] Silver Harrison MONO # 0.8 103/ul Normal 0.3-0.8 [facility] Comment on above: Performed By: #### U SUNITA, MG, RENAL #### [facility] [address] [address] [address] Silver Harrison Monocytes/100 WBC (Bld) 7.1 % Normal 1.7-12.0 [facility] Comment on above: Performed By: #### U SUNITA, MG, RENAL #### [facility] [address] [place] [address] Dr. Silver Harrison NEUT # 7.4 103/ul Critically high 1.4-6.5 [facility] Comment on above: Performed By: #### U SUNITA, MG, RENAL #### [facility] [address] [place] [address] Dr. Silver Harrison Neutrophils/100 WBC (Bld) 67.7 % Normal 43.0-75.0 [facility] Comment on above: Performed By: #### U SUNITA, MG, RENAL #### [facility] [address] [place] [address] Dr. Silver Harrison Platelet mean volume (Bld) [ Entitic vol] 10.2 fL Normal 9.5-13.5 [facility] Comment on above: Performed By: #### U SUNITA, MG, RENAL #### [facility] [address] [place] [address] Dr. Silver Harrison PLT 130 103/ul Critically low 150-450 [facility] Comment on above: Performed By: #### U SUNITA, MG, RENAL #### [facility] [address] [place] [address] Dr. Silver Harrison RBC 3.53 106/ul Critically low 4.20-5.40 [facility] Comment on above: Performed By: #### U SUNITA, MG, RENAL #### [facility] [address] [place] [address] Dr. Silver Harrison WBC 10.9 103/ul Normal 4.0-11.0 [facility] Comment on above: Performed By: #### U SUNITA, MG, RENAL #### [facility] [address] [place] [address] Dr. Silver Harrison Calcium [Mass/volume] in Ser um or PlasmaOrdered By: Malcolm Moss on 07-31-2022 Calcium [Mass/Vol] 8.3 mg/dL Low 8.6-10.3 [facility] Comment on above: Performed By: #### G LULS #### Point of Care testing , Carbon dioxide, total [Moles /volume] in Serum or PlasmaOrdered By: Malcolm Moss on 07-31-2022 CO2 [Moles/Vol] 24.3 mmol/L Normal 21.0-31.0 [facility] Comment on above: Performed By: #### G LULS #### Point of Care testing , Casts typing in urine sedime nt by light microscopyOrdered By: Malcolm Moss on 07-31-2022 Casts LM Nom (Urine sed) N/A [facility] Chloride [Moles/volume] in S alida or PlasmaOrdered By: Malcolm Moss on 07-31-2022 Chloride [Moles/Vol] 98 mmol/L Normal 98-107 [facility] Comment on above: Performed By: #### G LULS #### Point of Care testing , Complete Blood Count Auto Di ffon 07-31-2022 Basophils (Bld) [#/Vol] 0.1 10*3/uL Normal 0.0-0.2 [facility] Comment on above: Result Comment: PERF ORMED BY: [facility] [address] [address] PATHOLOGIST EARLY MORNING BABYSITTER DANII HAYNES M.D. Performed By: #### G LULS #### Point of Care testing , Basophils/100 WBC (Bld) 0.4 % Normal . [facility] Comment on above: Performed By: #### G LULS #### Point of Care testing , Eosinophils (Bld) [#/Vol] 0.1 10*3/uL Normal 0.0-0.45 [facility] Comment on above: Performed By: #### G LULS #### Point of Care testing , Eosinophils/100 WBC (Bld) 0.5 % Normal . [facility] Comment on above: Performed By: #### G CAPRICE #### Point of Care testing , Erythrocyte distribution wid th (RBC) [Ratio] 15.0 % Normal 11.9-15.3 [facility] Comment on above: Performed By: #### G MARLOLS #### Point of Care testing , Hematocrit (Bld) [Volume fraction] 31.6 % Low 34.0-46.4 [facility] Comment on above: Performed By: #### G MARLOLS #### Point of Care testing , Hemoglobin (Bld) [Mass/Vol] 9.9 g/dL Low 11.8-15. 4 [facility] Comment on above: Performed By: #### G MARLOLS #### Point of Care testing , Lymphocytes (Bld) [#/Vol] 1.3 10*3/uL Normal 1.00-4.8 [facility] Comment on above: Performed By: #### G MRALOLS #### Point of Care testing , Lymphocytes/100 WBC (Bld) 4.8 % Normal . [facility] Comment on above: Performed By: #### G MARLOLS #### Point of Care testing , MCH (RBC) [Entitic mass] 28.8 pg Normal 24.7-34.3 [facility] Comment on above: Performed By: #### G MARLOLS #### Point of Care testing , MCV (RBC) [Entitic vol] 91.7 fL Normal 80-100 [facility] Comment on above: Performed By: #### G MARLOLS #### Point of Care testing , Mean Corpuscular HGB Conc 31.4 g/dL Low 32.0-35.0 [facility] Comment on above: Performed By: #### G CAPRICE #### Point of Care testing , Monocytes (Bld) [#/Vol] 1.4 10*3/uL High 0.0-0.8 [facility] Comment on above: Performed By: #### G MARLOLS #### Point of Care testing , Monocytes/100 WBC (Bld) 20.48 % High 0.00-20.00 [facility] Comment on above: Result Comment: For adults in ED, MDW > 20.0 may be associated with a higher risk of sepsis during the first 12 hrs of hospital admission Performed By: #### G MARLOLS #### Point of Care testing , Monocytes/100 WBC (Bld) 5.1 % Normal . [facility] Comment on above: Performed By: #### G MARLOLS #### Point of Care testing , Neutrophils (Bld) [#/Vol] 24.2 10*3/uL High 1.8-7.7 [facility] Comment on above: Performed By: #### G MARLOLS #### Point of Care testing , Neutrophils/100 WBC (Bld) 89.2 % Normal . [facility] Comment on above: Performed By: #### G MARLOLS #### Point of Care testing , NRBC% 0.1 /100{WBC} Normal 0-0.5 [facility] Comment on above: Performed By: #### G MARLOLS #### Point of Care testing , Platelet mean volume (Bld) [Entitic vol] 8.4 fL Normal 6.3-10.7 [facility] Comment on above: Performed By: #### G CAPRICE #### Point of Care testing , Platelets (Bld) [#/Vol] 155 10*3/uL Normal 150-450 [facility] Comment on above: Performed By: #### G MARLOLS #### Point of Care testing , RBC (Bld) [#/Vol] 3.45 10*6/uL Low 3.60-5.00 [facility] Comment on above: Performed By: #### G MARLOLS #### Point of Care testing , WBC (Bld) [#/Vol] 27.0 10*3/uL High 3.8-11.6 [facility] Comment on above: Performed By: #### G MARLOLS #### Point of Care testing , Creatine Kinaseon 07-31-2022 Creatine Kinase Normal 30-223 [facility] Comment on above: Result Comment: Spec imen hemolyzed, redraw requested Performed By: #### G MARLOLS #### Point of Care testing , Creatine kinase [Enzymatic a ctivity/volume] in Serum or PlasmaOrdered By: Malcolm Moss on 07-31-2022 CK [Catalytic activity/Vol] 70 U/L 30-223 [facility] Creatinine [Mass/volume] in Serum or PlasmaOrdered By: Malcolm Moss on 07-31-2022 Creatinine [Mass/Vol] 4.13 mg/dL High 0.60-1.20 [facility] Comment on above: Performed By: #### G LULS #### Point of Care testing , Dipstick and Microscopicon 0 07-31-2022 Bacteria,Urine 3+ High None Seen [facility] Comment on above: Order Comment: Name Collection Type:: Straight Catheter Performed By: #### G LULS #### Point of Care testing , Bilirubin,Urine Negative Normal Negative [facility] Comment on above: Order Comment: Name Collection Type:: Straight Catheter Performed By: #### G LULS #### Point of Care testing , Glucose Ql (U) Normal Normal Normal [facility] Comment on above: Order Comment: Name Collection Type:: Straight Catheter Performed By: #### G LULS #### Point of Care testing , Hyaline Casts,Urine 5-9 High 0-1 [facility] Comment on above: Order Comment: Name Collection Type:: Straight Catheter Result Comment: PERF ORMED BY: [facility] [address] [address] PATHOLOGIST EARLY MORNING BABYSITTER DANII HAYNES M.D. Performed By: #### G LULS #### Point of Care testing , Ketones Ql (U) Negative Normal Negative [facility] Comment on above: Order Comment: Name Collection Type:: Straight Catheter Performed By: #### G LULS #### Point of Care testing , Leukocyte esterase Test stri p Ql (U) 4+ High Negative [facility] Comment on above: Order Comment: Name Collection Type:: Straight Catheter Performed By: #### G LULS #### Point of Care testing , Nitrite,Urine Negative Normal Negative [facility] Comment on above: Order Comment: Name Collection Type:: Straight Catheter Performed By: #### G LULS #### Point of Care testing , Occult Blood,Urine 3+ High Negative [facility] Comment on above: Order Comment: Name Collection Type:: Straight Catheter Result Comment: PERF ORMED BY: [address] [address] PATHOLOGIST EARLY MORNING BABYSITTER DANII HAYNES M.D. Performed By: #### G LULS #### Point of Care testing , Protein,Urine >=300 High Negative [facility] Comment on above: Order Comment: Name Collection Type:: Straight Catheter Performed By: #### G LULS #### Point of Care testing , RBC,Urine 50-100 High 0-4 [facility] Comment on above: Order Comment: Name Collection Type:: Straight Catheter Performed By: #### G LULS #### Point of Care testing , Specificy [place],Urine 1.020 Normal 1.001-1.030 [facility] Comment on above: Order Comment: Name Collection Type:: Straight Catheter Performed By: #### G LULS #### Point of Care testing , Squamous Epithelial Cell,Urine 10-19 High 0-2 [facility] Comment on above: Order Comment: Name Collection Type:: Straight Catheter Performed By: #### G LULS #### Point of Care testing , Urobilinogen,Urine Normal Normal Normal [facility] Comment on above: Order Comment: Name Collection Type:: Straight Catheter Performed By: #### G LULS #### Point of Care testing , WBC,Urine Innumerable High 0-4 [facility] Comment on above: Order Comment: Name Collection Type:: Straight Catheter Performed By: #### G LULS #### Point of Care testing , ECG 12 lead ECGon 07-31-2022 ECG 12 lead ECG [facility] [address] [address] Electrocardiograph Report Signed Patient: Amparo Castorena MR#: [id number] : 1950 Acct:[id number] Age/Sex: 71 / F ADM Date: 07/31/22 Loc: ER Room: Type: [facility] ER Attending Dr: Ordering Provider: Malcolm Moss PA-C Date of Service: 07/31/2211/16/1511 ECG/ECG 12 lead ECG: Chest Pain Copies to: Test Reason : Blood Pressure : / mmHG Vent. Rate : 085 BPM Atrial Rate : 085 BPM P-R Int : 174 ms QRS Dur : 084 ms QT Int : 418 ms P-R-T Axes : 076 065 070 degrees QTc Int : 497 ms Normal sinus rhythm Prolonged QT Confirmed by Piyush Bell DO ([id number]) on 07/31/2022 4:05:21 PM Referred By: Electronically Signed By:Piyush Bell DO Transcribed By: MUS Signed By Piyush Bell DO [id number] Normal [facility] Eosinophils Auto (Bld) [#/Vo l]Ordered By: Malcolm Moss on 07-31-2022 Eosinophils (Bld) [#/Vol] 0.1 10*3/uL 0.0-0.45 [facility] Eosinophils/100 WBC Auto (Bl d)Ordered By: Malcolm Moss on 07-31-2022 Eosinophils/100 WBC (Bld) 0.5 % . [facility] Erythrocyte distribution wid th Auto (RBC) [Ratio]Ordered By: Malcolm Moss on 07-31-2022 Erythrocyte distribution wid th (RBC) [Ratio] 15.0 % 11.9-15.3 [facility] Glucose [Mass/volume] in Ser um or PlasmaOrdered By: Malcolm Moss on 07-31-2022 Glucose [Mass/Vol] 183 mg/dL High 70-100 [facility] Comment on above: ADA recommended refe rence rangeRandom Glucose Reference Range is dependent on time and content of last meal. Glucose of more than 200 mg/dL in a nonstressed, ambulatory subject supports the diagnosis of Diabetes Mellitus. Result Comment: Madeline om Glucose Reference Range is dependent on time and content of last meal. Glucose of more than 200 mg/dL in a nonstressed, ambulatory subject supports the diagnosis of Diabetes Mellitus. ADA recommended reference range Performed By: #### G LULS #### Point of Care testing , Hematocrit Auto (Bld) [Volum e fraction]Ordered By: Malcolm Moss on 07-31-2022 Hematocrit (Bld) [Volume fraction] 31.6 % 3 4.0-46.4 [facility] Hemoglobin [Mass/volume] in BloodOrdered By: Malcolm Moss on 07-31-2022 Hemoglobin (Bld) [Mass/Vol] 9.9 g/dL 11.8-15. 4 [facility] Hepatic Panelon 07-31-2022 Albumin [Mass/Vol] 3.6 g/dL Normal 3.5-5.7 [facility] Comment on above: Performed By: #### G LULS #### Point of Care testing , Bilirubin,Indirect 0.5 mg/dL Normal [facility] Comment on above: Performed By: #### G LULS #### Point of Care testing , Bilirubin.indirect [Mass/Vol] 0.10 mg/dL Normal 0.03-0 .18 [facility] Comment on above: Performed By: #### G LULS #### Point of Care testing , Ketones Auto test strip (U) [Mass/Vol]Ordered By: Malcolm Moss on 07-31-2022 Ketones (U) [Mass/Vol] Negative Negative [facility] - CoagulationOrde red By: Malcolm Moss on 07-31-2022 PT Coag (PPP) [Time] 12.3 s 9.0-12.9 [facility] Leukocytes [#/volume] correc mary jo for nucleated erythrocytes in Blood by Automated counOrdered By: Malcolm Moss on 07-31-2022 WBC corrected for nucl RBC A uto (Bld) [#/Vol] 27.0 10*3/uL 3.8-11.6 [facility] Lipase [Enzymatic activity/v olume] in Serum or PlasmaOrdered By: Malcolm Moss on 07-31-2022 Lipase [Catalytic activity/Vol] 36.0 U/L Normal 11.0 -82.0 [facility] Comment on above: Result Comment: PERF ORMED BY: [facility] [address] [place] [address] PATHOLOGIST EARLY MORNING BABYSITTER DANII HAYNES M.D. Performed By: #### G CAPRICE #### Point of Care testing , Lymphocytes Auto (Bld) [#/Vo l]Ordered By: Malcolm Moss on 07-31-2022 Lymphocytes (Bld) [#/Vol] 1.3 10*3/uL 1.00-4.8 [facility] Lymphocytes/100 WBC Auto (Bl d)Ordered By: Malcolm Moss on 07-31-2022 Lymphocytes/100 WBC (Bld) 4.8 % . [facility] MCH Auto (RBC) [Entitic mass ]Ordered By: Malcolm Moss on 07-31-2022 MCH (RBC) [Entitic mass] 28.8 pg 24.7-34.3 [facility] MCHC Auto (RBC) [Mass/Vol]Or dered By: Malcolm Moss on 07-31-2022 MCHC (RBC) [Mass/Vol] 31.4 g/dL 32.0-35.0 [facility] MCV Auto (RBC) [Entitic vol] Ordered By: Malcolm Moss on 07-31-2022 MCV (RBC) [Entitic vol] 91.7 fL 80-100 [facility] Monocyte distribution width [Entitic volume] in Blood by AutomatedOrdered By: Malcolm Moss on 07-31-2022 Monocyte distribution width Auto (Bld) [Entitic vol] 20.48 % 0.00-20.[address] [facility] Comment on above: For adults in ED, MD W > 20.0 may be associated with a higher risk of sepsis during the first 12 hrs of hospital admission Monocytes Auto (Bld) [#/Vol] Ordered By: Malcolm Moss on 07-31-2022 Monocytes (Bld) [#/Vol] 1.4 10*3/uL 0.0-0.8 [facility] Monocytes/100 WBC Auto (Bld) Ordered By: Malcolm Moss on 07-31-2022 Monocytes/100 WBC (Bld) 5.1 % . [facility] Natriuretic peptide B [Mass/ Vol]Ordered By: Malcolm Moss on 07-31-2022 Natriuretic peptide B (Bld) [Mass/Vol] 57.0 pg/mL 5-100 [facility] Neutrophils Auto (Bld) [#/Vo l]Ordered By: Malcolm Moss on 07-31-2022 Neutrophils (Bld) [#/Vol] 24.2 10*3/uL 1.8-7.7 [facility] Neutrophils/100 WBC Auto (Bl d)Ordered By: Malcolm Moss on 07-31-2022 Neutrophils/100 WBC (Bld) 89.2 % . [facility] No Panel InformationOrdered By: Malcolm Moss on 07-31-2022 Estimated GFR (CKD-EPI) 10.913 mL/Min [facility] Creatinine Clearanc e (Chem 14.63 [facility] Nucleated erythrocytes [Pres ence] in Blood by Automated countOrdered By: Malcolm Moss on 07-31-2022 Nucleated RBC Auto Ql (Bld) 0.1 /100{WBC} 0-0.5 [facility] PHOSPHORUSon 07-31-2022 Phosphate [Mass/Vol] 5.3 mg/dL Critically high 2.6-4.7 [facility] Comment on above: Performed By: #### B MP #### [facility] [address] [place] [address] Dr. Silver Harrison PROF CHEM 8 (BAS METB)on Anion gap [Moles/Vol] 11.8 mmol/L Normal [facility] Comment on above: Performed By: #### B MP #### [facility] [address] [place] [address] Dr. Silver Harrison Calcium [Mass/Vol] 8.4 mg/dL Critically low 8.5-10.1 [facility] Comment on above: Performed By: #### B MP #### [facility] [address] [place] [address] Dr. Silver Harrison Chloride [Moles/Vol] 99 mmol/L Normal 98-107 [facility] Comment on above: Performed By: #### B MP #### [facility] [address] [place] [address] Dr. Silver Harrison CO2 [Moles/Vol] 27.9 mmol/L Normal 21.0-32.0 [facility] Comment on above: Performed By: #### B MP #### [facility] [address] [address] [address] Silver Harrison Creatinine [Mass/Vol] 4.81 mg/dL Critically high 0.55-1.02 [facility] Comment on above: Performed By: #### B MP #### [facility] [address] [address] [address] Silver Harrison EGFR-AF DJIBOUTIAN 11 mL/min/1.73m2 Critically low >=60 [facility] Comment on above: Performed By: #### B MP #### [facility] [address] [address] [address] Silver Harrison EGFR-NON AF DJIBOUTIAN 9 mL/min/1.73m2 Critically low >=60 [facility] Comment on above: Performed By: #### B MP #### [facility] [address] [address] [address] Silver Harrison Glucose [Mass/Vol] 114 mg/dL Critically high 74-106 [facility] Comment on above: Performed By: #### B MP #### [facility] [address] [address] [address] Silver Harrison Potassium [Moles/Vol] 3.7 mmol/L Normal 3.5-5.1 [facility] Comment on above: Performed By: #### B MP #### [facility] [address] [address] [address] Silver Harrison Sodium [Moles/Vol] 135 mmol/L Critically low 136-145 [facility] Comment on above: Performed By: #### B MP #### [facility] [address] [address] [address] Silver Harrison Urea nitrogen [Mass/Vol] 33.0 mg/dL Critically high 7.0-18 .0 [facility] Comment on above: Performed By: #### B MP #### [facility] [address] [address] [address] Silver Harrison Urea nitrogen/Creatinine [Mass ratio] 6.9 mg/mg Normal [facility] Comment on above: Performed By: #### B MP #### [facility] [address] [place], [place] [address] Dr. Silver Harrison Partial Thromboplastin Timeo n 07-31-2022 aPTT Coag (Bld) [Time] 28.0 s Normal 25.1-36.5 [facility] Comment on above: Result Comment: PERF ORMED BY: [facility] [place] [address] PATHOLOGIST EARLY MORNING BABYSITTER DANII HAYNES M.D. Performed By: #### G LULS #### Point of Care testing , Platelet mean volume Auto (B ld) [Entitic vol]Ordered By: Malcolm Moss on 07-31-2022 Platelet mean volume (Bld) [Entitic vol] 8.4 fL 6.3-10.7 [facility] Platelet poor plasma interna tional normalized ratio (INR) by coagulation assay (relatOrdered By: Malcolm Moss on 07-31-2022 INR Coag (PPP) [Relative time] 1.1 {INR} [facility] Comment on above: INR Therapeutic Rang e A) Pre- and Peroperative OAT started two weeks before surgery. NOT HIP SURGERY: 1.5 - 2.5 HIP SURGERY: 2 - 3B) Primary and secondary prevention of venous THROMBOSIS: 2 - 3C) Active venous thrombosis, pulmonary embolismand prevention of recurrent venous thrombosis: 2 - 3D) Prevention of arterial thromboembolismincluding patients with mechanical heart valves: 3 - 4.5 Platelets Auto (Bld) [#/Vol] Ordered By: Malcolm Moss on 07-31-2022 Platelets (Bld) [#/Vol] 155 10*3/uL 150-450 [facility] Potassium [Moles/volume] in Serum or PlasmaOrdered By: Malcolm Moss on 07-31-2022 Potassium [Moles/Vol] 4.3 mmol/L Normal 3.5-5.1 [facility] Comment on above: Performed By: #### G LULS #### Point of Care testing , Protein Auto test strip (U) [Mass/Vol]Ordered By: Malcolm Moss on 07-31-2022 Protein (U) [Mass/Vol] mg/dL Negative [facility] Protein [Mass/volume] in Ser um or PlasmaOrdered By: Malcolm Moss on 07-31-2022 Protein [Mass/Vol] 8.1 g/dL Normal 6.4-8.9 [facility] Comment on above: Performed By: #### G LULS #### Point of Care testing , Prothrombin Time INRon 07-31 INR Coag (PPP) [Relative time] 1.1 {INR} Normal [facility] Comment on above: Result Comment: INR Therapeutic Range A) Pre- and Peroperative OAT started two weeks before surgery. NOT HIP SURGERY: 1.5 - 2.5 HIP SURGERY: 2 - 3 B) Primary and secondary prevention of venous THROMBOSIS: 2 - 3 C) Active venous thrombosis, pulmonary embolism and prevention of recurrent venous thrombosis: 2 - 3 D) Prevention of arterial thromboembolism including patients with mechanical heart valves: 3 - 4.5 Performed By: #### G LULS #### Point of Care testing , PT Coag (PPP) [Time] 12.3 s Normal 9.0-12.9 [facility] Comment on above: Performed By: #### G LULS #### Point of Care testing , RBC Auto (Bld) [#/Vol]Ordere d By: Malcolm Moss on 07-31-2022 RBC (Bld) [#/Vol] 3.45 10*6/uL 3.60-5.00 [facility] Redraw CKon 07-31-2022 CK [Catalytic activity/Vol] 70 U/L Normal 30-223 [facility] Comment on above: Result Comment: PERF ORMED BY: [facility] [address] [place] [address] PATHOLOGIST EARLY MORNING BABYSITTER DANII HAYNES M.D. Performed By: #### G LULS #### Point of Care testing , Serum globulin measurement b y calculation (mass/volume)Ordered By: Malcolm Moss on 07-31-2022 Globulin (S) [Mass/Vol] 4.5 g/dL Normal F [facility] Comment on above: Performed By: #### G LULS #### Point of Care testing , Serum or plasma albumin/glob ulin mass ratioOrdered By: Malcolm Moss on 07-31-2022 Albumin/Globulin [Mass ratio] 0.8 {ratio} Normal [facility] Comment on above: Performed By: #### G LULS #### Point of Care testing , Serum or plasma anion gap de terminationOrdered By: Malcolm Moss on 07-31-2022 Anion gap [Moles/Vol] 16.0 mmol/L High 6.0-15.0 [facility] Comment on above: Performed By: #### G LULS #### Point of Care testing , Serum or plasma non-glucuron idated bilirubin measurement (mass/volume)Ordered By: Malcolm Moss on 07-31-2022 Bilirubin.indirect [Mass/Vol] 0.5 mg/dL [facility] Sodium [Moles/volume] in Ser um or PlasmaOrdered By: Malcolm Moss on 07-31-2022 Sodium [Moles/Vol] 134 mmol/L Low 136-145 [facility] Comment on above: Performed By: #### G LULS #### Point of Care testing , Squamous epithelial cells de tection in urine sediment by light microscopyOrdered By: Malcolm Moss on 07-31-2022 Epithelial cells.squamous LM Ql (Urine sed) 10-19 [HPF] 0-2 [facility] Troponin I High Sensitivityo n 07-31-2022 Troponin I High Sensitivity 7.7 pg/mL Normal 0.0-15.0 [facility] Comment on above: Result Comment: PERF ORMED BY: [facility] [address] [place] [address] PATHOLOGIST EARLY MORNING BABYSITTER DANII HANYES M.D. Performed By: #### G LULS #### Point of Care testing , Troponin I.cardiac [Mass/vol ume] in Serum or Plasma by Detection limit <= 0.01 ng/Ordered By: Malcolm Moss on 07-31-2022 Troponin I.cardiac DL <= 0.0 1 ng/mL [Mass/Vol] 7.7 pg/mL 0.0-15.0 [facility] Urea nitrogen [Mass/volume] in Serum or PlasmaOrdered By: Malcolm Moss on 07-31-2022 Urea nitrogen [Mass/Vol] 26 mg/dL High 7-25 [facility] Comment on above: Performed By: #### G CAPRICE #### Point of Care testing , Urine Cultureon 07-31-2022 Bacteria identified Cx Nom (U) ORGANISM: Escherichia coli (O:ESCCOL) [place] Count >100,000 Aerobic MARIANNE Charge ([id number]) SUSCEPTIBILITY ORGANISM: O:ESCCOL ANTIBIOTIC INTERPRETATION MARIANNE Amikacin S <16 Amoxacillin/K Clavulanate S <8 Ampicillin S <8 Ampicillin/Sulbactam S <4 Aztreonam S <4 Cefazolin S <2 Cefepime S <2 Ceftazidime S <1 Ceftazidime/Avibactam S <4 Ceftolozane/Tazobactam S <2 Ceftriaxone S <1 Cefuroxime S <4 Ciprofloxacin S <0.25 Ertapenem S <0.5 Gentamicin S <2 Levofloxacin S <0.5 Meropenem S <1 Meropenem/Vaborbactam S <2 Nitrofurantoin S <32 Piperacillin/Tazobactam S <8 Tetracycline S <4 Tigecycline S <2 Tobramycin S <2 Trimethoprim/Sulfamethoxazole S <0.5 S = SUSCEPTIBLE I = INTERMEDIATE R = RESISTANT BLANK = DATA NOT AVAILABLE, OR DRUG NOT ADVISABLE OR TESTED R* = RESISTANCE DUE TO EXTENDED SPECTRUM BETA-LACTAMASES ESBL = EXTENDED SPECTRUM BETA-LACTAMASE TFG = THYMIDINE-DEPENDENT STRAIN MAURICE = BETA-LACTAMASE POSITIVE IB = INDUCIBLE BETA-LACTAMASE. APPEARS IN PLACE OF 'S' WITH SPECIES KNOWN TO POSSESS INDUCIBLE BETA-LACTAMASES. POTENTIALLY THEY MAY BECOME RESISTANT TO ALL B-LACTAM DRUGS. PERFORMED BY: [facility] [address] [place] [address] PATHOLOGIST EARLY MORNING BABYSITTER DANII HAYNES M.D. Normal [facility] Comment on above: Performed By: #### G CAPRICE #### Point of Care testing , Urine appearanceOrdered By: Malcolm Moss on 07-31-2022 Appearance (U) Cloudy Critically abnormal Clear [facility] Comment on above: Order Comment: Name Collection Type:: Straight Catheter Performed By: #### G LULS #### Point of Care testing , Urine bacteria detection by automated methodOrdered By: Malcolm Moss on 07-31-2022 Bacteria Auto Ql (U) 3+ None Seen [facility] Urine colorOrdered By: Laura Moss on 07-31-2022 Color (U) Yellow Normal Yellow [facility] Comment on above: Order Comment: Name Collection Type:: Straight Catheter Performed By: #### G LULS #### Point of Care testing , Urine glucose measurement by automated test strip (mass/volume)Ordered By: Malcolm Moss on 07-31-2022 Glucose Auto test strip (U) [Mass/Vol] Normal mg/dL Normal [facility] Urine hemoglobin detection b y automated test stripOrdered By: Malcolm Moss on 07-31-2022 Hemoglobin Auto test strip Ql (U) 3+ Ne gative [facility] Urine leukocyte esterase det ection by automated test stripOrdered By: Malcolm Moss on 07-31-2022 Leukocyte esterase Auto test strip Ql (U) 4+ Negative [facility] Urine nitrite detection by a utomated test stripOrdered By: Malcolm Moss on 07-31-2022 Nitrite Auto test strip Ql (U) Negative Negat jan [facility] Urine pH measurement by auto mated test stripOrdered By: Malcolm Moss on 07-31-2022 pH (U) 6.0 [pH] Normal 5.0-9.0 [facility] Comment on above: Order Comment: Name Collection Type:: Straight Catheter Performed By: #### G LULS #### Point of Care testing , Urobilinogen Auto test strip (U) [Mass/Vol]Ordered By: Malcolm Moss on 07-31-2022 Urobilinogen (U) [Mass/Vol] Normal mg/dL Normal [facility] WBC Auto (Bld) [#/Vol]Ordere d By: Malcolm Moss on 07-31-2022 WBC (Bld) [#/Vol] 27.0 10*3/uL 3.8-11.6 [facility] XR chest 1V portableon 07-31 XR chest 1V portable [facility] [place] [address] [place] [address] XRay Report Signed Patient: Amparo Castorena MR#: [id number] : 1950 Acct:[id number] Age/Sex: 71 / F ADM Date: 07/31/22 Loc: ER Room: Type: [facility] ER Attending Dr: Copies to: Malcolm Moss PA-C Ordering Provider: Malcolm Moss PA-C Date of Service: 07/31/22 XR/XR chest 1V portable: Chest Pain SINGLE VIEW CHEST CLINICAL HISTORY: Chest pain, shortness of breath, nausea, elevated blood pressure dialysis today. COMPARISON: None FINDINGS: Left-sided dialysis catheter is in place. Heart is normal in size. No consolidation pneumothorax pleural effusion or free air. XR/XR chest 1V portable IMPRESSION: NO ACUTE FINDINGS Impression dictated by: Dewayne Wei Jr., D.OElaine07/31/2022 3:53 PM Dictation Location: [place] [address] Transcribed By: [facility] 07/31/221552 Dictated By: Dewayne Wei Jr, DO 07/31/221551 Signed By: 07/31/221552 [facility] Yeast detection in urine sed iment by light microscopyOrdered By: Malcolm Moss on 07-31-2022 Yeast LM Ql (Urine sed) N/A F [facility] pH Auto test strip (U)Ordere d By: Malcolm Moss on 07-31-2022 pH (U) 1.020 [pH] 1.001-1.030 [facility] CBC AUTO DIFFon 07-29-2022 BASO # 0.1 103/ul Normal 0.0-0.1 [facility] Comment on above: Performed By: #### U SUNITA, MG, RENAL #### [facility] [address] [address] [address] Silver Harrison Basophils/100 WBC (Bld) 0.6 % Normal 0.2-2.0 [facility] Comment on above: Performed By: #### U SUNITA, MG, RENAL #### [facility] [address] [place] [address] Dr. Silver Harrison EO # 0.1 103/ul Normal 0.0-0.7 [facility] Comment on above: Performed By: #### U SUNITA, MG, RENAL #### [facility] [address] [place] [address] Dr. Silver Harrison Eosinophils/100 WBC (Bld) 1.8 % Normal 0.9-7.0 [facility] Comment on above: Performed By: #### U SUNITA, MG, RENAL #### [facility] [address] [place] [address] Dr. Silver Harrison Erythrocyte distribution wid th (RBC) [Ratio] 13.2 % Normal 11.0-15.0 [facility] Comment on above: Performed By: #### U SUNITA, MG, RENAL #### [facility] [address] [place] [address] Dr. Silver Harrison Hematocrit (Bld) [Volume fraction] 45.2 % Normal 3 6.0-48.0 [facility] Comment on above: Performed By: #### U SUNITA, MG, RENAL #### [facility] [address] [place] [address] Dr. Silver Harrison Hemoglobin (Bld) [Mass/Vol] 15.3 g/dL Normal 12.0-16. 0 [facility] Comment on above: Performed By: #### U SUNITA, MG, RENAL #### [facility] [address] [place] [address] Dr. Silver Harrison IG # 0.07 10e3/ul Critically high 0.00-0.03 [facility] Comment on above: Performed By: #### U SUNITA, MG, RENAL #### [facility] [address] [place] [address] Dr. Silver Harrison IG % 0.9 % Critically high 0.0-0.5 [facility] Comment on above: Performed By: #### U SUNITA, MG, RENAL #### [facility] [address] [place] [address] Dr. Silver Harrison LYMPH # 2.1 103/ul Normal 1.2-3.8 [facility] Comment on above: Performed By: #### U SUNITA, MG, RENAL #### [facility] [address] [place] [address] Dr. Silver Harrison Lymphocytes/100 WBC (Bld) 27.2 % Normal 20.5-60.0 [facility] Comment on above: Performed By: #### U SUNITA, MG, RENAL #### [facility] [address] [place] [address] Dr. Silver Harrison MANUAL DIFF REQ NO Normal [facility] Comment on above: Performed By: #### U SUNITA, MG, RENAL #### [facility] [address] [place] [address] Dr. Silver Harrison MCH (RBC) [Entitic mass] 31.5 pg Normal 26.7-34.0 [facility] Comment on above: Performed By: #### U SUNITA, MG, RENAL #### [facility] [address] [place] [address] Dr. Silver Harrison MCHC (RBC) [Mass/Vol] 33.8 g/dL Normal 29.9-35.2 [facility] Comment on above: Performed By: #### U SUNITA, MG, RENAL #### [facility] [address] [place] [address] Dr. Silver Harrison MCV (RBC) [Entitic vol] 93.0 fL Normal 81.0-99.0 [facility] Comment on above: Performed By: #### U SUNITA, MG, RENAL #### [facility] [address] [place] [address] Dr. Silver Harrison MONO # 0.5 103/ul Normal 0.3-0.8 [facility] Comment on above: Performed By: #### U SUNITA, MG, RENAL #### [facility] [address] [place] [address] Dr. Silver Harrison Monocytes/100 WBC (Bld) 7.0 % Normal 1.7-12.0 [facility] Comment on above: Performed By: #### U SUNITA, MG, RENAL #### [facility] [address] [place] [address] Dr. Silver Harrison NEUT # 4.8 103/ul Normal 1.4-6.5 [facility] Comment on above: Performed By: #### U SUNITA, MG, RENAL #### [facility] [address] [place] [address] Dr. Silver Harrison Neutrophils/100 WBC (Bld) 62.5 % Normal 43.0-75.0 [facility] Comment on above: Performed By: #### U SUNITA, MG, RENAL #### [facility] [address] [place] [address] Dr. Silver Harrison Platelet mean volume (Bld) [ Entitic vol] 12.2 fL Normal 9.5-13.5 [facility] Comment on above: Performed By: #### U SUNITA, MG, RENAL #### [facility] [address] [place] [address] Dr. Silver Harrison PLT 156 103/ul Normal 150-450 [facility] Comment on above: Performed By: #### U SUNITA, MG, RENAL #### [facility] [address] [place] [address] Dr. Silver Harrison RBC 4.86 106/ul Normal 4.20-5.40 [facility] Comment on above: Performed By: #### U SUNITA, MG, RENAL #### [facility] [address] [place] [address] Dr. Silver Harrison WBC 7.8 103/ul Normal 4.0-11.0 [facility] Comment on above: Performed By: #### U SUNITA, MG, RENAL #### [facility] [address] [place] [address] Dr. Silver Harrison FERRITINon 07-29-2022 Ferritin [Mass/Vol] 704.0 ng/mL Critically high 8.0-252.0 [facility] Comment on above: Performed By: #### U SUNITA, MG, RENAL #### [facility] [address] [place] [address] Dr. Silver Harrison IRON AND TIBCon 07-29-2022 % SATURATION 20.2 % Normal [facility] Comment on above: Performed By: #### U SUNITA, MG, RENAL #### [facility] [address] [place] [address] Dr. Silver Harrison Iron [Mass/Vol] 47.0 ug/dL Critically low 50.0-170.0 [facility] Comment on above: Performed By: #### U SUNITA, MG, RENAL #### [facility] [address] [place] [address] Dr. Silver Harrison TIBC DIRECT 233.0 ug/dL Critically low 250.0-450.0 [facility] Comment on above: Performed By: #### U SUNITA, MG, RENAL #### [facility] [address] [place] [address] Dr. Silver Harrison CBC AUTO DIFFon 07-24-2022 BASO # 0.1 103/ul Normal 0.0-0.1 [facility] Comment on above: Performed By: #### B MP #### [facility] [address] [place] [address] Dr. Silver Harrison Basophils/100 WBC (Bld) 0.6 % Normal 0.2-2.0 [facility] Comment on above: Performed By: #### B MP #### [facility] [address] [place] [address] Dr. Silver Harrison EO # 0.3 103/ul Normal 0.0-0.7 [facility] Comment on above: Performed By: #### B MP #### [facility] [address] [place] [address] Dr. Silver Harrison Eosinophils/100 WBC (Bld) 2.3 % Normal 0.9-7.0 [facility] Comment on above: Performed By: #### B MP #### [facility] [address] [place] [address] Dr. Silver Harrison Erythrocyte distribution wid th (RBC) [Ratio] 13.3 % Normal 11.0-15.0 [facility] pital Comment on above: Performed By: #### B MP #### [facility] [address] [address] [address] Silver Harrison Hematocrit (Bld) [Volume fraction] 28.8 % Critically low 36.0-48.0 [facility] Comment on above: Performed By: #### B MP #### [facility] [address] [place] [address] Dr. Silver Harrison Hemoglobin (Bld) [Mass/Vol] 8.8 g/dL Critically low 12.0 -16.0 [facility] Comment on above: Performed By: #### B MP #### [facility] [address] [place] [address] Dr. Silver Harrison IG # 0.12 10e3/ul Critically high 0.00-0.03 [facility] Comment on above: Performed By: #### B MP #### [facility] [address] [place] [address] Dr. Silver Harrison IG % 1.1 % Critically high 0.0-0.5 [facility] Comment on above: Performed By: #### B MP #### [facility] [address] [place] [address] Dr. Silver Harrison LYMPH # 2.4 103/ul Normal 1.2-3.8 [facility] Comment on above: Performed By: #### B MP #### [facility] [address] [place] [address] Dr. Silver Harrison Lymphocytes/100 WBC (Bld) 22.0 % Normal 20.5-60.0 [facility] Comment on above: Performed By: #### B MP #### [facility] [address] [place] [address] Dr. Silver Harrison MANUAL DIFF REQ NO Normal [facility] Comment on above: Performed By: #### B MP #### [facility] [address] [place] [address] Dr. Silver Harrison MCH (RBC) [Entitic mass] 28.9 pg Normal 26.7-34.0 [facility] Comment on above: Performed By: #### B MP #### [facility] [address] [address] [address] Silver Harrison MCHC (RBC) [Mass/Vol] 30.6 g/dL Normal 29.9-35.2 [facility] Comment on above: Performed By: #### B MP #### [facility] [address] [address] [address] Silver Harrsion MCV (RBC) [Entitic vol] 94.4 fL Normal 81.0-99.0 [facility] Comment on above: Performed By: #### B MP #### [facility] [address] [place] [address] Dr. Silver Harrison MONO # 0.5 103/ul Normal 0.3-0.8 [facility] Comment on above: Performed By: #### B MP #### [facility] [facility] [address] [place] [address] Dr. Silver Harrison Monocytes/100 WBC (Bld) 4.8 % Normal 1.7-12.0 [facility] Comment on above: Performed By: #### B MP #### [facility] [address] [place] [address] Dr. Silver Harrison NEUT # 7.4 103/ul Critically high 1.4-6.5 [facility] Comment on above: Performed By: #### B MP #### [facility] [address] [place] [address] Dr. Silver Harrison Neutrophils/100 WBC (Bld) 69.2 % Normal 43.0-75.0 [facility] Comment on above: Performed By: #### B MP #### [facility] [address] [place] [address] Dr. Silver Harrison Platelet mean volume (Bld) [Entitic vol] 9.8 fL Normal 9.5-13.5 [facility] Comment on above: Performed By: #### B MP #### [facility] [address] [place] [address] Dr. Silver Harrison PLT 146 103/ul Critically low 150-450 [facility] Comment on above: Performed By: #### B MP #### [facility] [address] [place] [address] Dr. Silver Harrison RBC 3.05 106/ul Critically low 4.20-5.40 [facility] Comment on above: Performed By: #### B MP #### [facility] [address] [place] [address] Dr. Silver Harrison WBC 10.7 103/ul Normal 4.0-11.0 [facility] Comment on above: Performed By: #### B MP #### [facility] [address] [place] [address] Dr. Silver Harrison PHOSPHORUSon 07-24-2022 Phosphate [Mass/Vol] 4.5 mg/dL Normal 2.6-4.7 [facility] Comment on above: Performed By: #### U SUNITA, MG, RENAL #### [facility] [address] [place] [address] Dr. Silver Harrison PROF CHEM 8 (BAS METB)on Anion gap [Moles/Vol] 13.6 mmol/L Normal [facility] Comment on above: Performed By: #### U SUNITA, MG, RENAL #### [facility] [address] [place] [address] Dr. Silver Harrison Calcium [Mass/Vol] 8.5 mg/dL Normal 8.5-10.1 [facility] Comment on above: Performed By: #### U SUNITA, MG, RENAL #### [facility] [address] [place] [address] Dr. Silver Harrison Chloride [Moles/Vol] 105 mmol/L Normal 98-107 [facility] Comment on above: Performed By: #### U SUNITA, MG, RENAL #### [facility] [address] [place] [address] Dr. Silver Harrison CO2 [Moles/Vol] 25.8 mmol/L Normal 21.0-32.0 [facility] Comment on above: Performed By: #### U SUNITA, MG, RENAL #### [facility] [address] [place] [address] Dr. Silver Harrison Creatinine [Mass/Vol] 4.02 mg/dL Critically high 0.55-1.02 [facility] Comment on above: Performed By: #### U SUNITA, MG, RENAL #### [facility] [address] [address] [address] Silver Harrison EGFR-AF DJIBOUTIAN 13 mL/min/1.73m2 Critically low >=60 [facility] Comment on above: Performed By: #### U SUNITA, MG, RENAL #### [facility] [address] [address] [address] Silver Harrison EGFR-NON AF DJIBOUTIAN 11 mL/min/1.73m2 Critically low >=60 [facility] Comment on above: Performed By: #### U SUNITA, MG, RENAL #### [facility] [address] [place] [address] Dr. Silver Harrison Glucose [Mass/Vol] 74 mg/dL Normal 74-106 [facility] Comment on above: Performed By: #### U SUNITA, MG, RENAL #### [facility] [address] [place] [address] Dr. Silver Harrison Potassium [Moles/Vol] 4.4 mmol/L Normal 3.5-5.1 [facility] Comment on above: Performed By: #### U SUNITA, MG, RENAL #### [facility] [address] [place] [address] Dr. Silver Harrison Sodium [Moles/Vol] 140 mmol/L Normal 136-145 [facility] Comment on above: Performed By: #### U SUNITA, MG, RENAL #### [facility] [address] [place] [address] Dr. Silver Harrison Urea nitrogen [Mass/Vol] 45.0 mg/dL Critically high 7.0-18 .0 [facility] Comment on above: Performed By: #### U SUNITA, MG, RENAL #### [facility] [address] [place] [address] Dr. Silver Harrison Urea nitrogen/Creatinine [Mass ratio] 11.2 mg/mg Normal [facility] Comment on above: Performed By: #### U SUNITA, MG, RENAL #### [facility] [address] [address] [address] Silver Harrison HEPATITIS PANEL, ACUTEon HBsAg Screen Negative Normal Negative [facility] Comment on above: Performed By: #### H EPACUT #### [facility] [address] [address] [address] Silver Harrison HCV AB Non-Reactive Normal Non Reactive [facility] Comment on above: Performed By: #### H EPACUT #### [facility] [address] [address] [address] Silver Harrison Hep A Ab, IgM Negative Normal Negative [facility] Comment on above: Performed By: #### H EPACUT #### [facility] [address] [address] [address] Silver Harrison Hep B Core Ab, IgM Negative Normal Negative [facility] Comment on above: Performed By: #### H EPACUT #### [facility] [address] [address] [address] Silver Harrison Interpretation: Comment Normal [facility] Comment on above: Result Comment: Not infected with HCV unless early or acute infection is suspected (which may be delayed in an immunocompromised individual), or other evidence exists to indicate HCV infection. Performed By: #### H EPACUT #### [facility] [address] [place] [address] Dr. Silver Harrison PTH INTACTon 07-21-2022 PTH, Intact 164 pg/mL Critically high 15-65 [facility] Comment on above: Performed By: #### U SUNITA, MG, RENAL #### [facility] [address] [address] [address] Silver Harrison CBC AUTO DIFFon 07-20-2022 BASO # 0.0 103/ul Normal 0.0-0.1 [facility] Comment on above: Performed By: #### C BC #### [facility] [address] [place] [address] Dr. Silver Harrison Basophils/100 WBC (Bld) 0.3 % Normal 0.2-2.0 [facility] Comment on above: Performed By: #### C BC #### [facility] [address] [place] [address] Dr. Silver Harrison EO # 0.2 103/ul Normal 0.0-0.7 [facility] Comment on above: Performed By: #### C BC #### [facility] [address] [place] [address] Dr. Silver Harrison Eosinophils/100 WBC (Bld) 2.5 % Normal 0.9-7.0 [facility] Comment on above: Performed By: #### C BC #### [facility] [address] [place] [address] Dr. Silver Harrison Erythrocyte distribution wid th (RBC) [Ratio] 13.2 % Normal 11.0-15.0 [facility] Comment on above: Performed By: #### C BC #### [facility] [address] [place] [address] Dr. Silver Harrison Hematocrit (Bld) [Volume fraction] 28.7 % Critically low 36.0-48.0 [facility] Comment on above: Performed By: #### C BC #### [facility] [address] [place] [address] Dr. Silver Harrison Hemoglobin (Bld) [Mass/Vol] 8.6 g/dL Critically low 12.0 -16.0 [facility] Comment on above: Performed By: #### C BC #### [facility] [address] [place] [address] Dr. Silver Harrison IG # 0.05 10e3/ul Critically high 0.00-0.03 [facility] Comment on above: Performed By: #### C BC #### [facility] [address] [place] [address] Dr. Silver Harrison IG % 0.5 % Normal 0.0-0.5 [facility] Comment on above: Performed By: #### C BC #### [facility] [address] [place] [address] Dr. Silver Harrison LYMPH # 1.9 103/ul Normal 1.2-3.8 [facility] Comment on above: Performed By: #### C BC #### [facility] [address] [place] [address] Dr. Silver Harrison Lymphocytes/100 WBC (Bld) 20.3 % Critically low 20.5-6 0.0 [facility] Comment on above: Performed By: #### C BC #### [facility] [address] [place] [address] Dr. Silver Harrison MANUAL DIFF REQ NO Normal [facility] Comment on above: Performed By: #### C BC #### [facility] [address] [place] [address] Dr. Silver Harrison MCH (RBC) [Entitic mass] 28.9 pg Normal 26.7-34.0 [facility] Comment on above: Performed By: #### C BC #### [facility] [address] [place] [address] Dr. Silver Harrison MCHC (RBC) [Mass/Vol] 30.0 g/dL Normal 29.9-35.2 [facility] Comment on above: Performed By: #### C BC #### [facility] [address] [place] [address] Dr. Silver Harrison MCV (RBC) [Entitic vol] 96.3 fL Normal 81.0-99.0 [facility] Comment on above: Performed By: #### C BC #### [facility] [address] [place] [address] Dr. Silver Harrison MONO # 0.6 103/ul Normal 0.3-0.8 [facility] Comment on above: Performed By: #### C BC #### [facility] [address] [place] [address] Dr. Silver Harrison Monocytes/100 WBC (Bld) 6.1 % Normal 1.7-12.0 [facility] Comment on above: Performed By: #### C BC #### [facility] [address] [place] [address] Dr. Silver Harrison NEUT # 6.5 103/ul Normal 1.4-6.5 [facility] Comment on above: Performed By: #### C BC #### [facility] [address] [address] [address] Silver Harrison Neutrophils/100 WBC (Bld) 70.3 % Normal 43.0-75.0 [facility] Comment on above: Performed By: #### C BC #### [facility] [address] [address] [address] Silver Harrison Platelet mean volume (Bld) [Entitic vol] 9.8 fL Normal 9.5-13.5 [facility] Comment on above: Performed By: #### C BC #### [facility] [address] [address] [address] Silver Harrison PLT 171 103/ul Normal 150-450 [facility] Comment on above: Performed By: #### C BC #### [facility] [address] [place] [address] Dr. Silver Harrison RBC 2.98 106/ul Critically low 4.20-5.40 [facility] Comment on above: Performed By: #### C BC #### [facility] [address] [address] [address] Silver Harrison WBC 9.3 103/ul Normal 4.0-11.0 [facility] Comment on above: Performed By: #### C BC #### [facility] [address] [place] [address] Dr. Silver Harrison FERRITINon 07-20-2022 Ferritin [Mass/Vol] 381.0 ng/mL Critically high 8.0-252.0 [facility] Comment on above: Performed By: #### B MP #### [facility] [address] [place] [address] Dr. Silver Harrison IRON AND TIBCon 07-20-2022 % SATURATION 14.6 % Normal [facility] Comment on above: Performed By: #### B MP #### [facility] [address] [address] [address] Silver Harrison Iron [Mass/Vol] 30.0 ug/dL Critically low 50.0-170.0 [facility] Comment on above: Performed By: #### B MP #### [facility] [address] [address] [address] Silver Harrison TIBC DIRECT 206.0 ug/dL Critically low 250.0-450.0 [facility] Comment on above: Performed By: #### B MP #### [facility] [address] [address] [address] Silver Harrison PROF 14(COMP METB)on 023 Albumin [Mass/Vol] 2.8 g/dL Critically low 3.4-5.0 [facility] Comment on above: Performed By: #### B MP #### [facility] [address] [place] [address] Dr. Silver Harrison Albumin/Globulin [Mass ratio] 0.5 {ratio} Normal [facility] Comment on above: Performed By: #### B MP #### [facility] [address] [address] [address] Silver Harrison ALP [Catalytic activity/Vol] 145 U/L Critically high 46 -116 [facility] Comment on above: Performed By: #### B MP #### [facility] [address] [address] [address] Silver Harrison ALT [Catalytic activity/Vol] 13 U/L Critically low 14- 59 [facility] Comment on above: Performed By: #### B MP #### [facility] [address] [address] [address] Silver Harrison Anion gap [Moles/Vol] 15.6 mmol/L Normal [facility] Comment on above: Performed By: #### B MP #### [facility] [address] [address] [address] Silver Harrison AST [Catalytic activity/Vol] 12 U/L Critically low 15- 37 [facility] Comment on above: Performed By: #### B MP #### [facility] [address] [place] [address] Dr. Silver Harrison Bilirubin [Mass/Vol] 0.2 mg/dL Normal 0.2-1.0 [facility] Comment on above: Performed By: #### B MP #### [facility] [address] [address] [address] Silver Harrison Calcium [Mass/Vol] 8.3 mg/dL Critically low 8.5-10.1 [facility] Comment on above: Performed By: #### B MP #### [facility] [address] [address] [address] Silver Harrison Chloride [Moles/Vol] 113 mmol/L Critically high 98-107 [facility] Comment on above: Performed By: #### B MP #### [facility] [address] [address] [address] Silver Harrison CO2 [Moles/Vol] 25.1 mmol/L Normal 21.0-32.0 [facility] Comment on above: Performed By: #### B MP #### [facility] [address] [address] [address] Silver Harrison Creatinine [Mass/Vol] 4.32 mg/dL Critically high 0.55-1.02 [facility] Comment on above: Performed By: #### B MP #### [facility] [address] [address] [address] Silver Harrison EGFR-AF DJIBOUTIAN 12 mL/min/1.73m2 Critically low >=60 [facility] Comment on above: Performed By: #### B MP #### [facility] [address] [address] [address] Silver Harrison EGFR-NON AF DJIBOUTIAN 10 mL/min/1.73m2 Critically low >=60 [facility] Comment on above: Performed By: #### B MP #### [facility] [address] [address] [address] Silver Harrison Globulin (S) [Mass/Vol] 5.6 g/dL Normal [facility] Comment on above: Performed By: #### B MP #### [facility] [address] [address] [address] Silver Harrison Glucose [Mass/Vol] 45 mg/dL Critically low 74-106 [facility] Comment on above: Performed By: #### B MP #### [facility] [address] [address] [address] Silver Harrison Potassium [Moles/Vol] 4.7 mmol/L Normal 3.5-5.1 [facility] Comment on above: Performed By: #### B MP #### [facility] [address] [address] [address] Silver Harrison Protein [Mass/Vol] 8.4 g/dL Critically high 6.4-8.2 [facility] Comment on above: Performed By: #### B MP #### [facility] [address] [address] [address] Silver Harrison Sodium [Moles/Vol] 149 mmol/L Critically high 136-145 [facility] Comment on above: Performed By: #### B MP #### [facility] [address] [place] [address] Dr. Silver Harrison Urea nitrogen [Mass/Vol] 54.0 mg/dL Critically high 7.0-18 .0 [facility] Comment on above: Performed By: #### B MP #### [facility] [address] [place] [address] Dr. Silver Harrison Urea nitrogen/Creatinine [Mass ratio] 12.5 mg/mg Normal [facility] Comment on above: Performed By: #### B MP #### [facility] [address] [place] [address] Dr. Silver Harrison VIT B12 AND FOLATEon 023 Cobalamin (Vitamin B12) [Mass/Vol] 395.0 pg/mL Normal 193.0-986.0 [facility] Comment on above: Performed By: #### B MP #### [facility] [address] [place] [address] Dr. Silver Harrison FOLATE 5.60 ng/mL Critically low 8.60-58.90 [facility] Comment on above: Performed By: #### B MP #### [facility] [address] [place] [address] Dr. Silver Harrison CBC AUTO DIFFon 07-17-2022 BASO # 0.0 103/ul Normal 0.0-0.1 [facility] Comment on above: Performed By: #### C BC #### [facility] [address] [place] [address] Dr. Silver Harrison Basophils/100 WBC (Bld) 0.5 % Normal 0.2-2.0 [facility] Comment on above: Performed By: #### C BC #### [facility] [address] [place] [address] Dr. Silver Harrison EO # 0.2 103/ul Normal 0.0-0.7 [facility] Comment on above: Performed By: #### C BC #### [facility] [address] [place] [address] Dr. Silver Harrison Eosinophils/100 WBC (Bld) 2.6 % Normal 0.9-7.0 [facility] Comment on above: Performed By: #### C BC #### [facility] [address] [place] [address] Dr. Silver Harrison Erythrocyte distribution wid th (RBC) [Ratio] 13.2 % Normal 11.0-15.0 [facility] Comment on above: Performed By: #### C BC #### [facility] [address] [place] [address] Dr. Silver Harrison Hematocrit (Bld) [Volume fraction] 25.7 % Critically low 36.0-48.0 [facility] Comment on above: Performed By: #### C BC #### [facility] [address] [place] [address] Dr. Silver Harrison Hemoglobin (Bld) [Mass/Vol] 7.7 g/dL Critically low 12.0 -16.0 [facility] Comment on above: Performed By: #### C BC #### [facility] [address] [place] [address] Dr. Silver Harrison IG # 0.04 10e3/ul Critically high 0.00-0.03 [facility] Comment on above: Performed By: #### C BC #### [facility] [address] [place] [address] Dr. Silver Harrison IG % 0.5 % Normal 0.0-0.5 [facility] Comment on above: Performed By: #### C BC #### [facility] [address] [place] [address] Dr. Silver Harrison LYMPH # 1.9 103/ul Normal 1.2-3.8 [facility] Comment on above: Performed By: #### C BC #### [facility] [address] [place] [address] Dr. Silver Harrison Lymphocytes/100 WBC (Bld) 21.8 % Normal 20.5-60.0 [facility] Comment on above: Performed By: #### C BC #### [facility] [address] [place] [address] Dr. Silver Harrison MANUAL DIFF REQ NO Normal [facility] Comment on above: Performed By: #### C BC #### [facility] [address] [place] [address] Dr. Silver Harrison MCH (RBC) [Entitic mass] 29.2 pg Normal 26.7-34.0 [facility] Comment on above: Performed By: #### C BC #### [facility] [address] [place] [address] Dr. Silver Harrison MCHC (RBC) [Mass/Vol] 30.0 g/dL Normal 29.9-35.2 [facility] Comment on above: Performed By: #### C BC #### [facility] [address] [place] [address] Dr. Silver Harrison MCV (RBC) [Entitic vol] 97.3 fL Normal 81.0-99.0 [facility] Comment on above: Performed By: #### C BC #### [facility] [address] [place] [address] Dr. Silver Harrison MONO # 0.6 103/ul Normal 0.3-0.8 [facility] Comment on above: Performed By: #### C BC #### [facility] [address] [place] [address] Dr. Silver Harrison Monocytes/100 WBC (Bld) 7.3 % Normal 1.7-12.0 [facility] Comment on above: Performed By: #### C BC #### [facility] [address] [place] [address] Dr. Silver Harrison NEUT # 5.7 103/ul Normal 1.4-6.5 [facility] Comment on above: Performed By: #### C BC #### [facility] [address] [place] [address] Dr. Silver Harrison Neutrophils/100 WBC (Bld) 67.3 % Normal 43.0-75.0 [facility] Comment on above: Performed By: #### C BC #### [facility] [address] [place] [address] Dr. Silver Harrison Platelet mean volume (Bld) [ Entitic vol] 10.0 fL Normal 9.5-13.5 [facility] Comment on above: Performed By: #### C BC #### [facility] [address] [place] [address] Dr. Silver Harrison PLT 154 103/ul Normal 150-450 [facility] Comment on above: Performed By: #### C BC #### [facility] [address] [place] [address] Dr. Silver Harrison RBC 2.64 106/ul Critically low 4.20-5.40 [facility] Comment on above: Performed By: #### C BC #### [facility] [address] [place] [address] Dr. Silver Harrison WBC 8.5 103/ul Normal 4.0-11.0 [facility] Comment on above: Performed By: #### C BC #### [facility] [address] [place] [address] Dr. Silver Harrison PHOSPHORUSon 07-17-2022 Phosphate [Mass/Vol] 4.9 mg/dL Critically high 2.6-4.7 [facility] Comment on above: Performed By: #### U SUNITA, MG, RENAL #### [facility] [address] [place] [address] Dr. Silver Harrison PROF CHEM 8 (BAS METB)on Anion gap [Moles/Vol] 12.1 mmol/L Normal [facility] Comment on above: Performed By: #### U SUNITA, MG, RENAL #### [facility] [address] [place] [address] Dr. Silver Harrison Calcium [Mass/Vol] 7.9 mg/dL Critically low 8.5-10.1 [facility] Comment on above: Performed By: #### U SUNITA, MG, RENAL #### [facility] Laboratory [address] [place] [address] Dr. Silver Harrison Chloride [Moles/Vol] 108 mmol/L Critically high 98-107 [facility] Comment on above: Performed By: #### U SUNITA, MG, RENAL #### [facility] Laboratory [address] [place] [address] Dr. Silver Harrison CO2 [Moles/Vol] 26.4 mmol/L Normal 21.0-32.0 [facility] Comment on above: Performed By: #### U SUNITA, MG, RENAL #### [facility] [address] [place] [address] Dr. Silver Harrison Creatinine [Mass/Vol] 4.33 mg/dL Critically high 0.55-1.02 [facility] Comment on above: Performed By: #### U SUNITA, MG, RENAL #### [facility] [address] [place] [address] Dr. Silver Harrison EGFR-AF DJIBOUTIAN 12 mL/min/1.73m2 Critically low >=60 [facility] Comment on above: Performed By: #### U SUNITA, MG, RENAL #### [facility] [address] [place] [address] Dr. Silver Harrison EGFR-NON AF DJIBOUTIAN 10 mL/min/1.73m2 Critically low >=60 [facility] Comment on above: Performed By: #### U SUNITA, MG, RENAL #### [facility] [address] [place] [address] Dr. Silver Harrison Glucose [Mass/Vol] 86 mg/dL Normal 74-106 [facility] Comment on above: Performed By: #### U SUNITA, MG, RENAL #### [facility] [address] [place] [address] Dr. Silver Harrison Potassium [Moles/Vol] 4.5 mmol/L Normal 3.5-5.1 [facility] Comment on above: Performed By: #### U SUNITA, MG, RENAL #### [facility] [address] [place] [address] Dr. Silver Harrison Sodium [Moles/Vol] 142 mmol/L Normal 136-145 [facility] Comment on above: Performed By: #### U SUNITA, MG, RENAL #### [facility] [address] [place] [address] Dr. Silver Harrison Urea nitrogen [Mass/Vol] 50.0 mg/dL Critically high 7.0-18 .0 [facility] Comment on above: Performed By: #### U SUNITA, MG, RENAL #### [facility] [address] [place] [address] Dr. Silver Harrison Urea nitrogen/Creatinine [Mass ratio] 11.5 mg/mg Normal [facility] Comment on above: Performed By: #### U SUNITA, MG, RENAL #### [facility] [address] [place] [address] Dr. Silver Harrison CBC AUTO DIFFon 07-03-2022 BASO # 0.0 103/ul Normal 0.0-0.1 [facility] Comment on above: Performed By: #### U SUNITA, MG, RENAL #### [facility] [address] [place] [address] Dr. Silver Harrison Basophils/100 WBC (Bld) 0.4 % Normal 0.2-2.0 [facility] Comment on above: Performed By: #### U SUNITA, MG, RENAL #### [facility] [address] [place] [address] Dr. Silver Harrison EO # 0.3 103/ul Normal 0.0-0.7 [facility] Comment on above: Performed By: #### U SUNITA, MG, RENAL #### [facility] [address] [place] [address] Dr. Silver Harrison Eosinophils/100 WBC (Bld) 2.9 % Normal 0.9-7.0 [facility] Comment on above: Performed By: #### U SUNITA, MG, RENAL #### [facility] [address] [place] [address] Dr. Silver Harrison Erythrocyte distribution wid th (RBC) [Ratio] 12.9 % Normal 11.0-15.0 [facility] Comment on above: Performed By: #### U SUNITA, MG, RENAL #### [facility] [address] [place] [address] Dr. Silver Harrison Hematocrit (Bld) [Volume fraction] 28.0 % Critically low 36.0-48.0 [facility] Comment on above: Performed By: #### U SUNITA, MG, RENAL #### [facility] [address] [place] [address] Dr. Silver Harrison Hemoglobin (Bld) [Mass/Vol] 8.5 g/dL Critically low 12.0 -16.0 [facility] Comment on above: Performed By: #### U SUNITA, MG, RENAL #### [facility] [address] [place] [address] Dr. Silver Harrison IG # 0.07 10e3/ul Critically high 0.00-0.03 [facility] Comment on above: Performed By: #### U SUNITA, MG, RENAL #### [facility] [address] [place] [address] Dr. Silver Harrison IG % 0.7 % Critically high 0.0-0.5 [facility] Comment on above: Performed By: #### U SUNITA, MG, RENAL #### [facility] [address] [place] [address] Dr. Silver Harrison LYMPH # 1.7 103/ul Normal 1.2-3.8 [facility] Comment on above: Performed By: #### U SUNITA, MG, RENAL #### [facility] [address] [place] [address] Dr. Silver Harrison Lymphocytes/100 WBC (Bld) 17.7 % Critically low 20.5-6 0.0 [facility] Comment on above: Performed By: #### U SUNITA, MG, RENAL #### [facility] [address] [place] [address] Dr. Silver Harrison MANUAL DIFF REQ NO Normal [facility] Comment on above: Performed By: #### U SUNITA, MG, RENAL #### [facility] [address] [address] [address] Silver Harrison MCH (RBC) [Entitic mass] 29.0 pg Normal 26.7-34.0 [facility] Comment on above: Performed By: #### U SUNITA, MG, RENAL #### [facility] [address] [place] [address] Dr. Silver Harrison MCHC (RBC) [Mass/Vol] 30.4 g/dL Normal 29.9-35.2 [facility] Comment on above: Performed By: #### U SUNITA, MG, RENAL #### [facility] [address] [place] [address] Dr. Silver Harrison MCV (RBC) [Entitic vol] 95.6 fL Normal 81.0-99.0 [facility] Comment on above: Performed By: #### U SUNITA, MG, RENAL #### [facility] [address] [place] [address] Dr. Silver Harrison MONO # 0.6 103/ul Normal 0.3-0.8 [facility] Comment on above: Performed By: #### U SUNITA, MG, RENAL #### [facility] [address] [place] [address] Dr. Silver Harrison Monocytes/100 WBC (Bld) 5.7 % Normal 1.7-12.0 [facility] Comment on above: Performed By: #### U SUNITA, MG, RENAL #### [facility] [address] [place] [address] Dr. Silver Harrison NEUT # 7.1 103/ul Critically high 1.4-6.5 [facility] Comment on above: Performed By: #### U SUNITA, MG, RENAL #### [facility] [address] [place] [address] Dr. Silver Harrison Neutrophils/100 WBC (Bld) 72.6 % Normal 43.0-75.0 [facility] Comment on above: Performed By: #### U SUNITA, MG, RENAL #### [facility] [address] [place] [address] Dr. Silver Harrison Platelet mean volume (Bld) [Entitic vol] 9.8 fL Normal 9.5-13.5 [facility] Comment on above: Performed By: #### U SUNITA, MG, RENAL #### [facility] [address] [place] [address] Dr. Silver Harrison PLT 188 103/ul Normal 150-450 [facility] Comment on above: Performed By: #### U SUNITA, MG, RENAL #### [facility] [address] [place] [address] Dr. Silver Harrison RBC 2.93 106/ul Critically low 4.20-5.40 [facility] Comment on above: Performed By: #### U SUNITA, MG, RENAL #### [facility] [address] [place] [address] Dr. Silver Harrison WBC 9.7 103/ul Normal 4.0-11.0 [facility] Comment on above: Performed By: #### U SUNITA, MG, RENAL #### [facility] [address] [place] [address] Dr. Silver Harrison PROF CHEM 8 (BAS METB)on Anion gap [Moles/Vol] 10.9 mmol/L Normal [facility] Comment on above: Performed By: #### B MP #### [facility] [address] [place] [address] Dr. Silver Harrison Calcium [Mass/Vol] 8.5 mg/dL Normal 8.5-10.1 [facility] Comment on above: Performed By: #### B MP #### [facility] [address] [place] [address] Dr. Silver Harrison Chloride [Moles/Vol] 108 mmol/L Critically high 98-107 [facility] Comment on above: Performed By: #### B MP #### [facility] [address] [address] [address] Silver Harrison CO2 [Moles/Vol] 28.6 mmol/L Normal 21.0-32.0 [facility] Comment on above: Performed By: #### B MP #### [facility] [address] [address] [address] Silver Harrison Creatinine [Mass/Vol] 4.05 mg/dL Critically high 0.55-1.02 [facility] Comment on above: Performed By: #### B MP #### [facility] [address] [address] [address] Silver Hrarison EGFR-AF DJIBOUTIAN 13 mL/min/1.73m2 Critically low >=60 [facility] Comment on above: Performed By: #### B MP #### [facility] [address] [address] [address] Silver Harrison EGFR-NON AF DJIBOUTIAN 11 mL/min/1.73m2 Critically low >=60 [facility] Comment on above: Performed By: #### B MP #### [facility] [address] [address] [address] Silver Harrison Glucose [Mass/Vol] 74 mg/dL Normal 74-106 [facility] Comment on above: Performed By: #### B MP #### [facility] [address] [address] [address] Silver Harrison Potassium [Moles/Vol] 4.5 mmol/L Normal 3.5-5.1 [facility] Comment on above: Performed By: #### B MP #### [facility] [address] [address] [address] Silver Harrison Sodium [Moles/Vol] 143 mmol/L Normal 136-145 [facility] Comment on above: Performed By: #### B MP #### [facility] [address] [address] [address] Silver Harrison Urea nitrogen [Mass/Vol] 45.0 mg/dL Critically high 7.0-18 .0 [facility] Comment on above: Performed By: #### B MP #### [facility] [address] [place] [address] Dr. Silver Harrison Urea nitrogen/Creatinine [Mass ratio] 11.1 mg/mg Normal [facility] Comment on above: Performed By: #### B MP #### [facility] [address] [place] [address] Dr. Silver Harrison CBC AUTO DIFFon 07-01-2022 BASO # 0.1 103/ul Normal 0.0-0.1 [facility] Comment on above: Performed By: #### U SUNITA, MG, RENAL #### [facility] [address] [place] [address] Dr. Silver Harrison Basophils/100 WBC (Bld) 0.5 % Normal 0.2-2.0 [facility] Comment on above: Performed By: #### U SUNITA, MG, RENAL #### [facility] [address] [place] [address] Dr. Silver Harrison EO # 0.2 103/ul Normal 0.0-0.7 [facility] Comment on above: Performed By: #### U SUNITA, MG, RENAL #### [facility] [address] [place] [address] Dr. Silver Harrison Eosinophils/100 WBC (Bld) 2.4 % Normal 0.9-7.0 [facility] Comment on above: Performed By: #### U SUNITA, MG, RENAL #### [facility] [address] [place] [address] Dr. Silver Harrison Erythrocyte distribution wid th (RBC) [Ratio] 12.7 % Normal 11.0-15.0 [facility] Comment on above: Performed By: #### U SUNITA, MG, RENAL #### [facility] [address] [place] [address] Dr. Silver Harrison Hematocrit (Bld) [Volume fraction] 27.9 % Critically low 36.0-48.0 [facility] Comment on above: Performed By: #### U SUNITA, MG, RENAL #### [facility] [address] [address] [address] Silver Harrison Hemoglobin (Bld) [Mass/Vol] 8.6 g/dL Critically low 12.0 -16.0 [facility] Comment on above: Performed By: #### U SUNITA, MG, RENAL #### [facility] [address] [place] [address] Dr. Silver Harrison IG # 0.10 10e3/ul Critically high 0.00-0.03 [facility] Comment on above: Performed By: #### U SUNITA, MG, RENAL #### [facility] [address] [place] [address] Dr. Silver Harrison IG % 1.0 % Critically high 0.0-0.5 [facility] Comment on above: Performed By: #### U SUNITA, MG, RENAL #### [facility] [address] [place] [address] Dr. Silver Harrison LYMPH # 1.9 103/ul Normal 1.2-3.8 [facility] Comment on above: Performed By: #### U SUNITA, MG, RENAL #### [facility] [address] [place] [address] Dr. Silver Harrison Lymphocytes/100 WBC (Bld) 19.1 % Critically low 20.5-6 0.0 [facility] Comment on above: Performed By: #### U SUNITA, MG, RENAL #### [facility] [address] [place] [address] Dr. Silver Harrison MANUAL DIFF REQ NO Normal [facility] Comment on above: Performed By: #### U SUNITA, MG, RENAL #### [facility] [address] [place] [address] Dr. Silver Harrison MCH (RBC) [Entitic mass] 29.5 pg Normal 26.7-34.0 [facility] Comment on above: Performed By: #### U SUNITA, MG, RENAL #### [facility] [address] [place] [address] Dr. Silver Harrison MCHC (RBC) [Mass/Vol] 30.8 g/dL Normal 29.9-35.2 [facility] Comment on above: Performed By: #### U SUNITA, MG, RENAL #### [facility] [address] [place] [address] Dr. Silver Harrison MCV (RBC) [Entitic vol] 95.5 fL Normal 81.0-99.0 [facility] Comment on above: Performed By: #### U SUNITA, MG, RENAL #### [facility] [address] [place] [address] Dr. Silver Harrison MONO # 0.6 103/ul Normal 0.3-0.8 [facility] Comment on above: Performed By: #### U SUNITA, MG, RENAL #### [facility] [address] [place] [address] Dr. Silver Harrison Monocytes/100 WBC (Bld) 5.4 % Normal 1.7-12.0 [facility] Comment on above: Performed By: #### U SUNITA, MG, RENAL #### [facility] [address] [place] [address] Dr. Silver Harrison NEUT # 7.3 103/ul Critically high 1.4-6.5 [facility] Comment on above: Performed By: #### U SUNITA, MG, RENAL #### [facility] [address] [place] [address] Dr. Silver Harrison Neutrophils/100 WBC (Bld) 71.6 % Normal 43.0-75.0 [facility] Comment on above: Performed By: #### U SUNITA, MG, RENAL #### [facility] [address] [place] [address] Dr. Silver Harrison Platelet mean volume (Bld) [ Entitic vol] 10.0 fL Normal 9.5-13.5 [facility] Comment on above: Performed By: #### U SUNITA, MG, RENAL #### [facility] [address] [place] [address] Dr. Silver Harrison PLT 208 103/ul Normal 150-450 [facility] Comment on above: Performed By: #### U SUNITA, MG, RENAL #### [facility] [address] [address] [address] Silver Harrison RBC 2.92 106/ul Critically low 4.20-5.40 [facility] Comment on above: Performed By: #### U SUNITA, MG, RENAL #### [facility] [address] [address] [address] Silver Harrison WBC 10.2 103/ul Normal 4.0-11.0 [facility] Comment on above: Performed By: #### U SUNITA, MG, RENAL #### [facility] [address] [address] [address] Silver Harrison PROF CHEM 8 (BAS METB)on Anion gap [Moles/Vol] 12.7 mmol/L Normal [facility] Comment on above: Performed By: #### B MP #### [facility] [address] [address] [address] Silver Harrison Calcium [Mass/Vol] 8.5 mg/dL Normal 8.5-10.1 [facility] Comment on above: Performed By: #### B MP #### [facility] [address] [address] [address] Silver Harrison Chloride [Moles/Vol] 108 mmol/L Critically high 98-107 [facility] Comment on above: Performed By: #### B MP #### [facility] [address] [address] [address] Silver Harrison CO2 [Moles/Vol] 26.9 mmol/L Normal 21.0-32.0 [facility] Comment on above: Performed By: #### B MP #### [facility] [address] [address] [address] Silver Harrison Creatinine [Mass/Vol] 4.31 mg/dL Critically high 0.55-1.02 [facility] Comment on above: Performed By: #### B MP #### [facility] [address] [address] [address] Silver Harrison EGFR-AF DJIBOUTIAN 12 mL/min/1.73m2 Critically low >=60 [facility] Comment on above: Performed By: #### B MP #### [facility] [address] [address] [address] Silver Harrison EGFR-NON AF DJIBOUTIAN 10 mL/min/1.73m2 Critically low >=60 [facility] Comment on above: Performed By: #### B MP #### [facility] [address] [address] [address] Silver Harrison Glucose [Mass/Vol] 141 mg/dL Critically high 74-106 [facility] Comment on above: Performed By: #### B MP #### [facility] [address] [address] [address] Silver Harrison Potassium [Moles/Vol] 4.6 mmol/L Normal 3.5-5.1 [facility] Comment on above: Performed By: #### B MP #### [facility] [address] [address] [address] Silver Harrison Sodium [Moles/Vol] 143 mmol/L Normal 136-145 [facility] Comment on above: Performed By: #### B MP #### [facility] [address] [address] [address] Silver Harrison Urea nitrogen [Mass/Vol] 47.0 mg/dL Critically high 7.0-18 .0 [facility] Comment on above: Performed By: #### B MP #### [facility] [address] [address] [address] Silver Harrison Urea nitrogen/Creatinine [Mass ratio] 10.9 mg/mg Normal [facility] Comment on above: Performed By: #### B MP #### [facility] [address] [address] [address] Silver Harrison PTH INTACTon 06-25-2022 PTH, Intact 132 pg/mL Critically high 15-65 [facility] Comment on above: Performed By: #### U SUNITA, MG, RENAL #### [facility] [address] [address] [address] Silver Harrison CBC AUTO DIFFon 06-24-2022 BASO # 0.0 103/ul Normal 0.0-0.1 [facility] Comment on above: Performed By: #### B MP #### [facility] [address] [place] [address] Dr. Silver Harrison Basophils/100 WBC (Bld) 0.5 % Normal 0.2-2.0 [facility] Comment on above: Performed By: #### B MP #### [facility] [address] [place] [address] Dr. Silver Harrison EO # 0.2 103/ul Normal 0.0-0.7 [facility] Comment on above: Performed By: #### B MP #### [facility] [address] [place] [address] Dr. Silver Harrison Eosinophils/100 WBC (Bld) 2.8 % Normal 0.9-7.0 [facility] Comment on above: Performed By: #### B MP #### [facility] [address] [place] [address] Dr. Silver Harrison Erythrocyte distribution wid th (RBC) [Ratio] 12.5 % Normal 11.0-15.0 [facility] Comment on above: Performed By: #### B MP #### [facility] [address] [place] [address] Dr. Silver Harrison Hematocrit (Bld) [Volume fraction] 26.0 % Critically low 36.0-48.0 [facility] Comment on above: Performed By: #### B MP #### [facility] [address] [place] [address] Dr. Silver Harrison Hemoglobin (Bld) [Mass/Vol] 8.1 g/dL Critically low 12.0 -16.0 [facility] Comment on above: Performed By: #### B MP #### [facility] [address] [place] [address] Dr. Silver Harrison IG # 0.08 10e3/ul Critically high 0.00-0.03 [facility] Comment on above: Performed By: #### B MP #### [facility] [address] [place] [address] Dr. Silver Harrison IG % 0.9 % Critically high 0.0-0.5 [facility] Comment on above: Performed By: #### B MP #### [facility] [address] [place] [address] Dr. Silver Harrison LYMPH # 1.6 103/ul Normal 1.2-3.8 [facility] Comment on above: Performed By: #### B MP #### [facility] [address] [place] [address] Dr. Silver Harrison Lymphocytes/100 WBC (Bld) 19.4 % Critically low 20.5-6 0.0 [facility] Comment on above: Performed By: #### B MP #### [facility] [address] [place] [address] Dr. Silver Harrison MANUAL DIFF REQ NO Normal [facility] Comment on above: Performed By: #### B MP #### [facility] [address] [place] [address] Dr. Silver Harrison MCH (RBC) [Entitic mass] 30.0 pg Normal 26.7-34.0 [facility] Comment on above: Performed By: #### B MP #### [facility] [address] [place] [address] Dr. Silver Harrison MCHC (RBC) [Mass/Vol] 31.2 g/dL Normal 29.9-35.2 [facility] Comment on above: Performed By: #### B MP #### [facility] [address] [place] [address] Dr. Silver Harrison MCV (RBC) [Entitic vol] 96.3 fL Normal 81.0-99.0 [facility] Comment on above: Performed By: #### B MP #### [facility] [address] [place] [address] Dr. Silver Harrison MONO # 0.6 103/ul Normal 0.3-0.8 [facility] Comment on above: Performed By: #### B MP #### [facility] [address] [place] [address] Dr. Silver Harrison Monocytes/100 WBC (Bld) 6.6 % Normal 1.7-12.0 [facility] Comment on above: Performed By: #### B MP #### [facility] [address] [place] [address] Dr. Silver Harrison NEUT # 5.9 103/ul Normal 1.4-6.5 [facility] Comment on above: Performed By: #### B MP #### [facility] [address] [place] [address] Dr. Silver Harrison Neutrophils/100 WBC (Bld) 69.8 % Normal 43.0-75.0 [facility] Comment on above: Performed By: #### B MP #### [facility] [address] [place] [address] Dr. Silver Harrison Platelet mean volume (Bld) [ Entitic vol] 10.0 fL Normal 9.5-13.5 [facility] pital Comment on above: Performed By: #### B MP #### [facility] [address] [place] [address] Dr. Silver Harrison PLT 180 103/ul Normal 150-450 [facility] ostal Comment on above: Performed By: #### B MP #### [facility] [address] [place] [address] Dr. Silver Harrison RBC 2.70 106/ul Critically low 4.20-5.40 The [facility] Comment on above: Performed By: #### B MP #### [facility] [address] [place] [address] Dr. Silver Harrison WBC 8.4 103/ul Normal 4.0-11.0 [facility] ospital Comment on above: Performed By: #### B MP #### [facility] [address] [place] [address] Dr. Silver Harrison FERRITINon 06-24-2022 Ferritin [Mass/Vol] 535.0 ng/mL Critically high 8.0-252.0 [facility] Comment on above: Performed By: #### F ETIBC, FERR, VITAD #### [facility] [address] [place] [address] Dr. Silver Harrison IRON AND TIBCon 06-24-2022 % SATURATION 16.9 % Normal [facility] Comment on above: Performed By: #### F ETIBCISABEL, VITAD #### [facility] [address] [place] [address] Dr. Silver Harrison Iron [Mass/Vol] 31.0 ug/dL Critically low 50.0-170.0 [facility] Comment on above: Performed By: #### F ETIBC FERR, VITAD #### [facility] [address] [place] [address] Dr. Silver Harrison TIBC DIRECT 183.0 ug/dL Critically low 250.0-450.0 [facility] Comment on above: Performed By: #### F ETIISABEL GARCÍA, VITAD #### [facility] [address] [place] [address] Dr. Silver Harrison MAGNESIUMon 06-24-2022 Magnesium [Mass/Vol] 2.3 mg/dL Normal 1.8-2.4 [facility] Comment on above: Performed By: #### U SUNITA, MG, RENAL #### [facility] [address] [place] [address] Dr. Silver Harrison RENAL FUNCTION PANELon 06-24 Albumin [Mass/Vol] 2.5 g/dL Critically low 3.4-5.0 [facility] Comment on above: Performed By: #### U SUNITA, MG, RENAL #### [facility] [address] [place] [address] Dr. Silver Harrison Calcium [Mass/Vol] 8.4 mg/dL Critically low 8.5-10.1 [facility] Comment on above: Performed By: #### U SUNITA, MG, RENAL #### [facility] [address] [place] [address] Dr. Silver Harrison Chloride [Moles/Vol] 107 mmol/L Normal 98-107 [facility] Comment on above: Performed By: #### U SUNITA, MG, RENAL #### [facility] [address] [place] [address] Dr. Silver Harrison CO2 [Moles/Vol] 24.2 mmol/L Normal 21.0-32.0 [facility] Comment on above: Performed By: #### U SUNITA, MG, RENAL #### [facility] [address] [address] [address] Silver Harrison Creatinine [Mass/Vol] 4.38 mg/dL Critically high 0.55-1.02 [facility] Comment on above: Performed By: #### U SUNITA, MG, RENAL #### [facility] [address] [address] [address] Silver Harrison EGFR-AF DJIBOUTIAN 12 mL/min/1.73m2 Critically low >=60 [facility] Comment on above: Performed By: #### U SUNITA, MG, RENAL #### [facility] [address] [place] [address] Dr. Silver Harrison EGFR-NON AF DJIBOUTIAN 10 mL/min/1.73m2 Critically low >=60 [facility] Comment on above: Performed By: #### U SUNITA, MG, RENAL #### [facility] [address] [place] [address] Dr. Silver Harrison Glucose [Mass/Vol] 55 mg/dL Critically low 74-106 [facility] Comment on above: Performed By: #### U SUNITA, MG, RENAL #### [facility] [address] [place] [address] Dr. Silver Harrison Phosphate [Mass/Vol] 6.0 mg/dL Critically high 2.6-4.7 [facility] Comment on above: Performed By: #### U SUNITA, MG, RENAL #### [facility] [address] [place] [address] Dr. Silver Harrison Potassium [Moles/Vol] 4.3 mmol/L Normal 3.5-5.1 [facility] Comment on above: Performed By: #### U SUNITA, MG, RENAL #### [facility] [address] [address] [address] Silver Harrison Sodium [Moles/Vol] 142 mmol/L Normal 136-145 [facility] Comment on above: Performed By: #### U SUNITA, MG, RENAL #### [facility] [address] [address] [address] Silver Harrison Urea nitrogen [Mass/Vol] 55.0 mg/dL Critically high 7.0-18 .0 [facility] Comment on above: Performed By: #### U SUNITA, MG, RENAL #### [facility] [address] [place] [address] Dr. Silver Harrison URIC ACID SERUMon 06-24-2022 Urate [Mass/Vol] 7.7 mg/dL Critically high 2.6-6.0 [facility] Comment on above: Performed By: #### U SUNITA, MG, RENAL #### [facility] [address] [address] [address] Silver Harrison VITAMIN D 25 OHon 06-24-2022 VIT D 25-OH 29.0 ng/mL Normal [facility] Comment on above: Performed By: #### F ETIBC, FERR, VITAD #### [facility] [address] [place] [address] Dr. Silver Harrison VIT D RANGES SEE BELOW Normal [facility] Comment on above: Result Comment: <20 ng/mL Vit D deficient 20 - <30 ng/mL Vit D insufficient 30 - 100 ng/mL Vit D sufficient >100 ng/mL Potential Toxicity Performed By: #### F ETIBC, FERR, VITAD #### [facility] [address] [place] [address] Dr. Silver Harrison BASIC MET PANEL W/GFRon 05-28 Calcium [Mass/Vol] 8.0 mg/dL Low (8.6 - 10.6) [facility] Comment on above: Order Comment: STAT FACILITY: [facility] [id number] Performed By: #### C HEM-B, T20 #### [facility] [facility] [address] [place], [address] Chloride [Moles/Vol] 112 mmol/L High (98 - 107) [facility] Comment on above: Order Comment: STAT FACILITY: [facility] [id number] Performed By: #### C HEM-B, T20 #### [place] [facility] [address] [place], [address] CO2 [Moles/Vol] 19 mmol/L Low (22 - 30) [facility] [facility] Comment on above: Order Comment: STAT FACILITY: [facility] [id number] Performed By: #### C HEM-B, T20 #### [place] [facility] [address] [place], [address] Creatinine [Mass/Vol] 4.98 mg/dL High (0.52 - 1.04) [facility] Comment on above: Order Comment: STAT FACILITY: [facility] [id number] Performed By: #### C HEM-B, T20 #### [place] [facility] [address] [place], [address] GFR- AMER 10.3 ML/M1.7 Low (60.0 - 140.1) [facility] Comment on above: Order Comment: STAT FACILITY: [facility] [id number] Performed By: #### C HEM-B, T20 #### [place] [facility] [address] [place], [address] GFR-NON AFRIC-AMER 8.5 ML/M1.7 Low (60.0 - 115.8) [facility] Comment on above: Order Comment: STAT FACILITY: [facility] [id number] Performed By: #### C HEM-B, T20 #### [place] [facility] [address] [place], [address] Glucose [Mass/Vol] 104 mg/dL Normal (74 - 106) [facility] above: Order Comment: STAT FACILITY: [facility] [facility] [id number] Performed By: #### C HEM-B, T20 #### [place] [facility] [address] [place], [address] Potassium [Moles/Vol] 6.1 mmol/L Critically high (3.5 - 5. 1) [facility] Comment on above: Order Comment: STAT FACILITY: [facility] [id number] Result Comment: CRIT ICAL RESULT REPEATED AND REPORTED TO: LISA MARSHALL @ 11:50 AM 06/15/2022 RP Performed By: #### C HEM-B, T20 #### [place] [facility] [address] [place], [address] Sodium [Moles/Vol] 142 mmol/L Normal (137 - 145) [facility] Comment on above: Order Comment: STAT FACILITY: [facility] [id number] Performed By: #### C HEM-B, T20 #### [place] [facility] [address] [place], [address] Urea nitrogen [Mass/Vol] 59 mg/dL High (7 - 17) [facility] Comment on above: Order Comment: STAT FACILITY: [facility] [id number] Performed By: #### C HEM-B, T20 #### [place] [facility] [address] [place], [address] CBC NO DIFFon 06-15-2022 Hematocrit (Bld) [Volume fraction] 28.5 % Low ( 37.0 - 47.0) [facility] Comment on above: Performed By: #### C HEM-B, T20 #### [facility] [facility] [address] [place], [address] Hemoglobin (Bld) [Mass/Vol] 8.8 g/dL Low (12.0 - 16.0) [facility] Comment on above: Performed By: #### C HEM-B, T20 #### [place] [facility] [address] [place], [address] MCH (RBC) [Entitic mass] 30.0 pg Normal (27.0 - 33. 0) [facility] Comment on above: Performed By: #### C HEM-B, T20 #### [place] [facility] [address] [place], [address] MCHC (RBC) [Mass/Vol] 30.9 g/dL Normal (30.0 - 37.0) [place] [facility] Comment on above: Performed By: #### C HEM-B, T20 #### [place] [facility] [address] [place], [address] MCV (RBC) [Entitic vol] 97.3 fL Normal (81.0 - 99.0 ) [place] [facility] Comment on above: Performed By: #### C HEM-B, T20 #### [place] [facility] [address] [place], [address] PLT 151 x10^3ul Normal (130 - 400) [place] [facility] Comment on above: Performed By: #### C HEM-B, T20 #### [facility] [address] [facility], [address] RBC 2.93 x10^6ul Low (4.20 - 5.40) [place] [facility] Comment on above: Performed By: #### C HEM-B, T20 #### [place] [facility] [address] [place], [address] RDW-SD 44.6 fl Normal (37.0 - 49.0) [place] [facility] Comment on above: Performed By: #### C HEM-B, T20 #### [place] [facility] [address] [place], [address] WBC 11.09 x10^3ul High (3.80 - 10.60) [place] [facility] Comment on above: Performed By: #### C HEM-B, T20 #### [place] [facility] [address] [facility], [address] MG MAMM SCREEN MOIRA W CADon 0 01-19-2022 MG MAMM SCREEN MOIRA W CAD Patient: ESSENCE CASTORENA Exam Date: 01/19/2022 : 1950 Gender:F Ordering : DR CHRISTOPHER MANN M.D. Admission #: [id number] Family : Order #: [id number] CLICK HERE TO VIEW EXAM RADIOLOGY REPORT PROCEDURE: MAMMOGRAM BILATERAL SCREENING DIGITAL WITH COMPUTER AIDED DETECTION COMPARISON: MG MAMM SCREEN MOIRA W CAD, 01/09/2020. MG MAMM SCREEN MOIRA W CAD, 01/15/2021. INDICATIONS: Screening mammography Calculator Name NCI Breast Cancer Risk Assessment Tool 5 Year Breast Cancer Risk 1.60% Lifetime Breast Cancer Risk 4.10% Personal Breast Cancer No Personal Ovarian Cancer No Treatments hysterectomy Family Cancers Father with pancreatic cancer at age 68. LOCATION: [facility] BREAST COMPOSITION: Extremely dense, which lowers the sensitivity of mammography. FINDINGS: DIAGNOSTIC CATEGORY 2--BENIGN FINDING. NO CHANGE FROM COMPARISON. 2D only images. Suboptimal patient positioning due to hemiparesis from cerebrovascular accident. Scattered skin calcifications. Scattered benign-appearing calcifications are present. RIGHT BREAST: No significant suspicious finding. LEFT BREAST: No significant suspicious finding. RECOMMENDATIONS: ROUTINE MAMMOGRAM AND CLINICAL EVALUATION IN 12 MONTHS. PLEASE NOTE: A NORMAL MAMMOGRAM DOES NOT EXCLUDE THE POSSIBILITY OF BREAST CANCER. A CLINICALLY SUSPICIOUS PALPABLE LUMP SHOULD BE BIOPSIED. Dictated by: Naga De Leon MD on 01/19/2022 at 12:10 Approved by: Naga De Leon MD on 01/19/2022 at 12:12 Normal [facility] Coding Summary.on 01-06-2019 Coding Summary. 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 I12.9 Hypertensive chronic kidney disease with stage 1 through stage 4 chronic kidney disease, or unspecified chronic kidney disease E11.22 Type 2 diabetes mellitus with diabetic chronic kidney disease N18.3 Chronic kidney disease, stage 3 (moderate) F41.9 Anxiety disorder, unspecified Z79.4 alf (current) use of insulin PYMT PROC APC STAT DESCRIPTION DOCTOR NAME DATE [id number] S Removal impacted cerumen Emanuel Hartley DO 01/04/2019 requiring instrumentation, unilateral 50 Bilateral Procedure NOTE: The code number assigned matches the documented diagnosis and / or procedure in the patient's chart. However, the narrative phrase printed from the coding software may appear abbreviated, or result in slightly different terminology. Coded By: Scarlett Gomez Date Saved: 01/06/2019 08:21 am Normal [facility] Main OR Intraoperative Recor don 01-05-2019 Main OR Intraoperative Record IntraOp Document Type FT Summary Primary Physician: Emanuel Hartley DO Finalized Date/Time: 01/05/19 12:31:16 Pt. Name: ESSENCE CASTORENA Aleta /Sex: 1950 Female Med Rec #: [id number] Physician: Emanuel Hartley DO Financial #: [id number] Pt. Type: Room/Bed: [place] [address] Admit/Disch: 01/04/19 13:05:00 - 01/04/19 14:15:00 Institution: Case Times FT Entry 1 Patient Times In Room 01/04/19 13:44:00 Out Room 01/04/19 14:02:00 Procedure Times Start 01/04/19 13:48:00 Stop 01/04/19 14:01:00 Anesthesia Times Last Modified By: Ellie Luciano CST 01/05/19 10:43:06 General Comments: 01/05/19 Chart opened to review and send charges Nacho Luciano CST Case Attendance FT Entry 1 Entry 2 Entry 3 Case Attendee Emanuel Hartley DO, RN, Meme Armando CST, Carleen Gill Role Performed Surgeon - Primary Program Facilitator - Primary Scrub - Primary Time In 01/04/19 13:44:00 01/04/19 13:44:00 01/04/19 13:44:00 Time Out 01/04/19 14:02:00 01/04/19 14:02:00 01/04/19 14:02:00 Procedure MYRINGOTOMY W/ MYRINGOTOMY W/ MYRINGOTOMY W/ INSERTION OF INSERTION OF INSERTION OF TUBES(Bilateral) TUBES(Bilateral) TUBES(Bilateral) Comments Last Modified By: Mark RN, Brooklyn Flores RN, Brooklyn Flores RN, Brooklyn Sandhu 01/04/19 17:06:00 09/11/19 17:06:00 01/04/19 17:06:00 Perioperative Protocols FT Pre-Care Text: Implements protective measures prior to operative or invasive procedure, confirms identity before the operative or invasive procedure, verifies operative procedure, surgical site, and laterality Entry 1 Procedure(s) MYRINGOTOMY W/ Patient Identity Birthday, ID Band INSERTION OF Verified (select at Check, Patient TUBES(Bilateral) least 2): Participation Consents / H and P HandP, Surgery/Procedure Operative Site N/A Verified Consent Marking Verified Surgical Site Yes Laterality Verified n/a Verified Procedure Verified Yes Correct Patient Yes Position Verified Availability Equipment, Medication Prep Dry n/a Verified (If Applicable) PreOp Antibiotic No Time Out Emanuel Hartley DO, Given Participants Meme Jimenez RN, Roth CST, Carleen Gill Time Out Complete 01/04/19 13:48:00 Outcomes Met? Yes Last Modified By: Ellie Luciano CST 01/05/19 10:45:33 Post-Care Text: The patient is free from signs and symptoms of injury caused by extraneous objects Allergy Information FT Pre-Care Text: Verifies allergies Entry 1 Allergies Reviewed? Yes Allergies Reviewed Self/Patient With Outcomes Met? Yes Last Modified By: Meme Jimenez RN 01/04/19 13:31:13 Post-Care Text: The patient received appropriate medication(s) safely administered during the perioperative period Surgical Procedures FT Entry 1 Procedure Description Procedure MYRINGOTOMY W/ Modifiers Bilateral INSERTION OF TUBES Surgeon Description BILATERAL EAR EXAM WITH CERUMEN REMOVAL Primary Procedure Yes Primary Surgeon Emanuel Hartley DO Start 01/04/19 13:48:00 Stop 01/04/19 14:01:00 Anesthesia Type Local Surgical Service ENT Wound Class 2 - Clean-Contaminated Last Modified By: Brooklyn Flores RN 01/04/19 17:05:59 General Case Data FT Pre-Care Text: Classifies surgical wound, implements aseptic technique, initiates traffic control Entry 1 Case Information OR OR 2 FT Case Level Level 1 Wound Class 2 - Clean-Contaminated Specialty ENT Preop Diagnosis BILATERAL EAR EXAM WITH Postop Same As Preop No CERUMEN REMOVAL Postop Diagnosis BILATERAL CERUMEN Outcomes Met? Yes IMPACTION, CONDUCTIVE HEARING LOSS Last Modified By: Meme Jimenez RN 01/05/19 12:21:09 Post-Care Text: The patient is free from signs and symptoms of infection Skin Assessment (Pre Procedure) FT Pre-Care Text: Implements protective measures to prevent skin/ tissue injury due to thermal or mechanical sources Evaluates for signs and symptoms of physical injury to skin and tissue Entry 1 Skin Integrity Unable to Visualize Skin Abnormality No Outcomes Met? Yes Last Modified By: Meme Jimenez RN 01/04/19 13:31:23 Post-Care Text: The patient is free from signs and symptoms of injury caused by extraneous objects Patient Positioning FT Pre-Care Text: Identifies physical alterations that require additional precautions for procedure-specific positioning, verifies presence of prosthetics or corrective devices, positions the patient, evaluates the patient for signs and symptoms of injury as a result of positioning Entry 1 Procedure MYRINGOTOMY W/ Body Position Supine INSERTION OF TUBES(Bilateral) Feet Uncrossed? Yes Left Arm Position Resting at Side Right Arm Position Resting at Side Left Leg Position Extended Right Leg Position Extended Positioning Device Pillow Under Head Large Press Points Checked No By Meme Jimenez RN Outcomes Met? Yes Last Modified By: Meme Jmienez RN 01/05/19 12:22:04 Post-Care Text: The patient is free from signs and symptoms of injury related to positioning Patient Care Devices FT Pre-Care Text: Implements protective measures to prevent skin/ tissue injury due to thermal or mechanical sources Entry 1 Entry 2 Equipment Type MICROSCOPE ENT MONITOR CHARGE SURGERY (LEICA)[F] [F] Equipment Number Equipment Setting Outcomes Met? Yes Yes Last Modified By: Meme Jimenez RN, RN, Amy J 01/04/19 13:31:54 01/04/19 13:31:54 Post-Care Text: The patient is free from signs and symptoms of injury caused by extraneous objects Transport To OR FT Pre-Care Text: Transports according to individual needs. Evaluates for signs and symptoms of skin and tissue injury as a result of transfer or transport Entry 1 Via Cart By Meme Jimenez RN Safety Precautions Side Rails Up Outcomes Met? Yes Last Modified By: Meme Jimenez RN 01/04/19 13:32:09 Post-Care Text: The patient is free from signs and symptoms of injury related to transfer/transport Counts Verification FT Pre-Care Text: Performs required counts Entry 1 Procedure(s) MYRINGOTOMY W/ Type Initial INSERTION OF TUBES(Bilateral) Items Instruments Status Correct By Carleen Armando CST Outcomes Met? Yes Last Modified By: Meme Jimenez RN 01/05/19 12:20:18 Post-Care Text: The patient is free from signs and symptoms of injury caused by extraneous objects Departure From OR FT Pre-Care Text: Transports according to individual needs. Evaluates for signs and symptoms of skin and tissue injury as a result of transfer or transport. Entry 1 Via Cart Safety Precautions Side Rails Up PostOp Destination Pre Surgery/ASU Transported By Meme Jimenez RN Patient Status Stable Skin. Condition Unable to Visualize Airway Maintenance Oxygen in Use? No Outcomes Met? Yes Last Modified By: Meme Jimenez RN 01/04/19 13:32:44 Post-Care Text: The patient is free from signs and symptoms of injury related to transfer/transport General Comments: patient taken back to [facility] for discharge. 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 Yes Last Modified By: Meme Jimenez RN 01/04/19 13:32:55 Post-Care Text: The patient received appropriate medication(s) safely administered during the perioperative period For [facility] please see scanned medication reconcilliation form for medications used at the field during the procedure. [facility] Inpatient Patient Summaryon 01-04-2019 Inpatient Patient Summary [facility] Clinical Discharge Instructions PERSON INFORMATION Name: ESSENCE CASTORENA [facility]IC[facility]ANS Admitting Physician: Emanuel Hartley DO Attending Physician: Emanuel Hartley DO PCP: ALDA MITCHELL DO Discharge Diagnosis: Cerumen debris on tympanic membrane; Conductive hearing loss of both ears Comment: PATIENT EDUCATION INFORMATION Instructions: Medication Leaflets: Follow up: With: Address: When: Emanuel Hartley [address] [place], [place] [id number] [phone] Business (1) MEDICATION LIST Comment: Normal [facility] Operative Reporton 9 Operative Report Date of Surgery: 02/2019 SURGEON: Emanuel Hartley D.O. PREOPERATIVE DIAGNOSIS: 1. Bilateral cerumen impaction 2. Bilateral conductive hearing loss POSTOPERATIVE DIAGNOSIS: 1. Bilateral cerumen impaction 2. Bilateral conductive hearing loss OPERATION: Bilateral ear cleaning under binocular microscopy ANESTHESIA: Local BLOOD LOSS: Minimal COMPLICATIONS: None GROSS FINDINGS: This is a 68 year old white female who is confined to a wheelchair who has had conductive hearing loss at a rate of bilateral cerumen impactions with intimate approximation of the tympanic membranes. The patient could not be cleaned in the outpatient setting secondary to her limitations of being in a wheelchair. Intraoperatively the tympanic membranes were partially visualized with a large amount of cerumen impacted at the anterior angle of the tympanic membrane in the anterior auditory canal. Both ears were cleaned under binocular microscopy using instrumentation and suction for complete removal. PROCEDURE: Essence was brought to the Operating Room Suite at [facility], at which time she was placed in a reclined position. The patient was prepped and draped in a normal fashion. Her head was turned toward the left, exposing the right ear. An operating microscope was brought into the field for microdissection. A speculum was inserted into the external auditory canal and the cerumen impaction at the anterior aspect of the eardrum was identified. This was removed using a combination of instrumentation and suction. Complete removal was appreciated. The tympanic membrane was found to be intact. With this completed the exact same procedure was completed on the opposite ear without difficulty. The patient describes improvement of her hearing. The patient was taken back to the Outpatient Surgical Department in stable and satisfactory condition. Danilo Vera Dictated: 01/04/2019 #[id number] Typed: 01/04/2019 #[id number] cc: Emanuel Hartley D.O. [facility] Comment on above: Result Comment: Elec tronically Signed By: Emanuel Hartley DO\.br\Date and Time Signed: 01/04/19 15:25 EDT Operative Report Patient: MIGUEL CASTORENA Age: 68 years Sex: Female : 1950 Associated Diagnoses: None Author: Emanuel Hartley DO Postoperative Information Preoperative Diagnosis: Bilateral cerumen impaction Bilateral conductive hearing loss. Postoperative Diagnosis: Same. Performed by: Emanuel Hartley DO Estimated Blood Loss: 0 ml. Complications: None. Bilateral ear exam with removal of cerumen impaction Anesthesia type: local. Normal St. [facility] Comment on above: Result Comment: Elec tronically Signed By: Emanuel Hartley DO\.br\Date and Time Signed: 01/04/19 14:09 EDT Patient Education - Texton 0 01-04-2019 Patient Education - Text Normal [facility] Vital Signs Date Time Vital Sign Value Performing Clinician Facility 03-23-2023 14:06-0500 Diastolic blood pressure 80 mm[Hg] Danii Rodriguez MD Work Phone: [facility] 03-23-2023 14:06-0500 Heart rate 76 /min Danii Rodriguez MD Work Phone: [facility] 03-23-2023 14:06-0500 Systolic blood pressure 132 mm[Hg] Danii Rodriguez MD Work Phone: [facility] 02-05-2023 09:31-0400 Body temperature 98.2 [degF] MD Christopher Mann Work Phone: [facility] 02-05-2023 09:31-0400 Diastolic blood pressure 70 mm[Hg] MD Christopher Mann Work Phone: [facility] 02-05-2023 09:31-0400 Heart rate 72 /min MD Christopher Mann Work Phone: [facility] 02-05-2023 09:31-0400 Respiratory rate 18 /min MD Christopher Mann Work Phone: [facility] 02-05-2023 09:31-0400 SaO2% (BldA) [Mass fraction] 97 % MD Christopher Mann Work Phone: [facility] 02-05-2023 09:31-0400 Systolic blood pressure 130 mm[Hg] MD Christopher Mann Work Phone: [facility] 11-11-2022 16:12-0400 Diastolic blood pressure 68 mm[Hg] Tseringarlet Sandhu [place] Work Phone: [facility] DO Work Phone: 11-11-2022 16:12-0400 Heart rate 84 /min Rugen M Johnathan Work Phone: [facility] DO Work Phone: 11-11-2022 16:12-0400 Systolic blood pressure 122 mm[Hg] Rugen Rodney [place] Work Phone: [facility] DO Work Phone: 07-31-2022 19:37-0400 Diastolic blood pressure 65 mm[Hg] MD Christopher Mann Work Phone: [facility] 07-31-2022 19:37-0400 Heart rate 78 /min MD Christopher Mann Work Phone: [facility] 07-31-2022 19:37-0400 Respiratory rate 20 /min MD Christopher Mann Work Phone: [facility] 07-31-2022 19:37-0400 SaO2% (BldA) [Mass fraction] 98 % MD Christopher Mann Work Phone: [facility] 07-31-2022 19:37-0400 Systolic blood pressure 142 mm[Hg] MD Christopher Mann Work Phone: [facility] 07-31-2022 15:05-0400 Body height 162.56 cm MD Christopher Mann Work Phone: [facility] 07-31-2022 15:05-0400 Body temperature 97.6 [degF] MD Christopher Mann Work Phone: [facility] 07-31-2022 15:05-0400 Body weight 106.14 kg MD Christopher Mann Work Phone: [facility] 07-31-2022 10:41-0400 Body temperature 98.4 [degF] MD Christopher Mann Work Phone: [facility] 07-31-2022 10:41-0400 Body weight 109 kg MD Christopher Mann Work Phone: [facility] 07-31-2022 10:41-0400 Diastolic blood pressure 68 mm[Hg] MD Christopher Mann Work Phone: [facility] 07-31-2022 10:41-0400 Heart rate 74 /min MD Christopher Mann Work Phone: [facility] 07-31-2022 10:41-0400 Respiratory rate 20 /min MD Christopher Mann Work Phone: [facility] 07-31-2022 10:41-0400 SaO2% (BldA) [Mass fraction] 97 % MD Christopher Mann Work Phone: [facility] 07-31-2022 10:41-0400 Systolic blood pressure 136 mm[Hg] MD Christopher Mann Work Phone: [facility] 07-14-2022 17:20-0400 Body height 160.02 cm Essie Merlyn Other [employer] Other 07-14-2022 17:20-0400 Diastolic blood pressure 70 mm[Hg] Essie Merlyn Other [employer] Other 07-14-2022 17:20-0400 Respiratory rate 20 /min Essie Merlyn Other [employer] Other 07-14-2022 17:20-0400 SaO2% (BldA) [Mass fraction] 96 % Essie Merlyn Other [employer] Other 07-14-2022 17:20-0400 Systolic blood pressure 153 mm[Hg] Essie Merlyn Other [facility] [employer] Other 07-01-2022 09:42-0500 Body temperature 98.1 [degF] MD Christopher Mann Work Phone: [facility] 07-01-2022 09:42-0500 Diastolic blood pressure 71 mm[Hg] MD Christopher Mann Work Phone: [facility] 07-01-2022 09:42-0500 Heart rate 68 /min MD Christopher Mann Work Phone: [facility] 07-01-2022 09:42-0500 Respiratory rate 18 /min MD Christopher Mann Work Phone: [facility] 07-01-2022 09:42-0500 SaO2% (BldA) [Mass fraction] 96 % MD Christopher Mann Work Phone: [facility] 07-01-2022 09:42-0500 Systolic blood pressure 134 mm[Hg] MD Christopher Mann Work Phone: [facility] 07-01-2022 09:27-0500 Body height 162.56 cm MD Christopher Mann Work Phone: [facility] Encounters Encounter Date Encounter Type Care Provider Facility Start: 03-23-2023 End: 03-23-2023 ambulatory [facility] Ambulatory Start: 03-23-2023 End: 03-23-2023 Office outpatient visit 15 minutes Danii Rodriguez MD Work Phone: [facility] Comment on above: Atherosclerosis of n ative coronary artery of tolowa dee-ni' heart without angina pectoris (Primary Dx); Chest discomfort; Essential hypertension, benign; Mixed hyperlipidemia; Dialysis patient (CMS/HCC); Cerebrovascular accident (CVA), unspecified mechanism (CMS/HCC) Start: 02-05-2023 ambulatory Essence [place] Facility:[facility] Start: 02-05-2023 End: 02-05-2023 ambulatory MD Christopher Mann Work Phone: [facility] Work Phone: Start: 02-05-2023 End: 02-05-2023 Registered Recurring MD Christopher Mann Work Phone: [facility] Work Phone: Start: 11-11-2022 Office outpatient visit 25 minutes Christopher Mann Work Phone: [facility] DO Work Phone: Start: 11-11-[address] Danii Rodriguez Facility:[id number] Start: 09-07-2022 End: 09-07-[address] CHRISTOPHER MANN Facility:H1 Start: 08-04-2022 ambulatory Mourhasj Traboulssi Faci lity:[id number] Start: 08-03-2022 ambulatory Mourchristopher Rodriguez Faci lity:[id number] Start: 08-02-2022 End: 08-05-2022 Evaluation and management of inpatient Christopher Mann Facility:[facility] Start: 08-02-2022 ambulatory Mourhasj Tilleyssi Faci lity:[id number] Start: 08-01-[address] Danii Rodriguez Facility:[id number] Start: 08-01-2022 ambulatory Mourhasj Tilleyssi Faci lity:[id number] Start: 07-31-2022 Evaluation and management of inpatient MD Christopher Mann Work Phone: [facility] Work Phone: Start: 07-31-2022 Registered Recurring MD Christopher Mann Work Phone: [facility] Work Phone: Start: 07-31-2022 End: 07-31-[address] CHRISTOPHER MANN Facility:H1 Start: 07-29-2022 End: 07-29-[address] CHRISTOPHER MANN Facility:H1 Start: 07-24-2022 End: 07-24-[address] CHRISTOPHER MANN Facility:H1 Start: 07-21-2022 End: 07-21-2022 ambulatory Essie Merlyn Other [employer] Other Start: 07-21-2022 Telephone encounter Essie Merlyn [facility] Start: 07-20-2022 Telephone encounter Essie Merlyn [facility] Start: 07-20-2022 End: 07-20-2022 ambulatory ESSIE MERLYN [facility] [employer] Other Start: 07-17-2022 End: 07-17-[address] CHRISTOPHER MANN Facility:H1 Start: 07-14-2022 End: 07-14-2022 ambulatory Essie Merlyn Other [employer] Other Start: 07-14-2022 Office outpatient new 45 minutes Essie Merlyn [facility] Start: 07-03-2022 End: 07-03-[address] ARTURO GUO . Facility:H1 Start: 07-01-2022 End: 07-01-2022 ambulatory MD Christopher Mann Work Phone: [facility] Work Phone: Start: 07-01-2022 End: 07-01-2022 Registered Recurring MD Christopher Mann Work Phone: [facility] Work Phone: Start: 06-24-2022 End: 06-24-[address] CHRISTOPHER MANN Facility:H1 Start: 01-19-2022 End: 01-20-[address] CHRISTOPHER MANN Facility:H1 Procedures Date Procedure Procedure Detail Performing Clinician Start: 01-29-2023 Mammography Danii phillips MD Work Phone: Start: 07-31-2022 Plain chest X-ray MD James Mann Work Phone: Appendectomy Christopher Mann Work Phone: Hysterectomy Christopher Mann Work Phone: Operative procedure on knee Christopher Mann Work Phone: Total colonoscopy Christopher Sandhu [place] Work Phone: Plan of Treatment Date Care Activity Detail Author Start: 03-28-2024 End: 03-28-2024 Patient encounter procedure 03/28/2024 2:00 PM EST Office Visit [facility] [address] [place] [address] Danii Rodriguez MD [address] [place] [address] [facility] Start: 01-30-2024 Screening for malignant neoplasm of breast Mammogram [facility] Start: 03-23-2023 FUV, Provider: Danii Rodriguez, Status: Pen, Time: 2:20 PM FUV, Provider: Danii Rodriguez, Status: Pen, Time: 2:20 PM [facility] DO Work Phone: Start: 12-25-2022 Influenza vaccination Influenza Vaccine (#1) [facility] Start: 07-31-2022 Bacteria identified in Urine by Culture [facility] Start: 11-19-1999 Zoster Vaccines (1 of 2) Zoster Vaccines (1 of 2) [facility] Start: 11-19-1971 DTaP/Tdap/Td Vaccines (1 - Tdap) DTaP/Tdap/Td Vaccines (1 - Tdap) [facility] Start: 11-19-1967 Diabetes mellitus screening Diabetes Screening [facility] Start: 11-19-1967 Hepatitis C screening Hepatitis C Screening [facility] Start: 11-19-1955 Pneumococcal Vaccine: 65+ Years (1 - PCV) Pneumococcal Vaccine: 65+ Years (1 - PCV) [facility] Start: 05-21-1950 COVID-19 Vaccine (#1) COVID-19 Vaccine (#1) [facility] Start: 1950 Lipid panel Lipid Panel [facility] Start: 1950 Screening for malignant neoplasm of colon [facility] Start: 1950 Yearly Adult Physical Yearly Adult Physical [facility] Immunizations Immunization Date Immunization Notes Care Provider Fa cility 05-03-2020 COVID-19 Manjinder Gonzalez (Pfizer) MD Christopher Mann Work Phone: [facility] 04-15-2020 COVID-19 Manjinder Gonzalez (Pfizer) MD Christopher Mann Work Phone: [facility] Payers Date Payer Category Payer Private Health Insurance [id number] 2022 Self-pay [id number] 2017 Medicaid MEDICAID MEDICAI D [id number] 2017-Present [address] [place] [address] [id number] 1959 Medicaid [id number] 1959 Medicare [id number] 1949 Unknown [id number] 2..[id number] 56 1949 Unknown [id number] 2..1.441443.3.579.2.3 56 1949 Unknown [id number] ..[id number] 56 1949 Unknown [id number] 2..1.270393.3.579.2.3 56 1949 Unknown [id number] 2.16.840.1.899249.3.579.2.3 56 1949 Unknown [id number] 2.16.840.1.513352.3.579.2.5 93 1949 Unknown [id number] 2.16.840.1.094079.3.579.2.5 93 1949 Unknown [id number] 2.16.840.1.528411.3.579.2.5 93 1949 Unknown [id number] 2.16.840.1.704953.3.579.2.5 93 1949 Unknown [id number] 2.16.840.1.470652.3.579.2.5 93 1949 Unknown [id number] 2.16.840.1.578411.3.579.2.5 93 1949 Unknown [id number] 2.16.840.1.400372.3.579.2.5 93 1949 Unknown [id number] 2.16.840.1.923754.3.579.2.5 93 1949 Unknown [id number] 2.16.840.1.753317.3.579.2.5 93 1949 Unknown [id number] 2.16.840.1.807556.3.579.2.5 93 1949 Unknown [id number] 2.16.840.1.094367.3.579.2.3 56 1949 Unknown [id number] 2.16.840.1.186086.3.579.2.3 56 1949 Unknown [id number] 2.16.840.1.620875.3.579.2.1 244 Unknown O [id number] Unknown Unknown [id number] 2.16.840.1.734095.3.579.2.5 31 Unknown [id number] 2.16.840.1.128920.3.579.2.5 31 Social History Date Type Detail Facility Start: 07-01-2022 End: 03-23-2023 Tobacco smoking status NHIS Ex-smoker (finding) [facility] Start: 1950 Sex Assigned At Female [facility] Start: 03-23-2023 Sex Assigned At [facility] [employer] Other Start: 03-23-2023 Consumes alcohol occasionally Consumes alcohol occasionally -[facility] DO Work Phone: History of tobacco use Current smoker [facility] Work Phone: History of tobacco use Cigarette Smoker [facility] Work Phone: Start: 03-23-2023 Tobacco use and exposure Smokeless tobacco non-user [facility] Work Phone: Start: 03-23-2023 Alcohol intake Ex-drinker (finding) [facility] Work Phone: Start: 03-19-2023 Alcohol Comment occasional [facility] Work Phone: Start: 1950 Sex Assigned At Not on file [facility] Work Phone: Start: 03-13-2023 End: 03-23-2023 Exposure to SARS-CoV-2 (event) Not sure [facility] Medical Equipment Procedure Code Equipment Code Equipment Origin al Text Equipment Identifier Dates Phacoemulsification of cataract with intraocular lens implantation Posterior-chamber intraocular lens, pseudophakic [id number] FDA Start: 04-10-2021 Phacoemulsification of cataract with intraocular lens implantation Posterior-chamber intraocular lens, pseudophakic ()[id number] FDA Start: 05-22-2021 Clinical Notes 07-01-2022 to 03-23-2023 Danii Rodriguez MD - 03/23/2023 2:20 PM ESTPatient Instructions Note Date & Type Note Facility 03-23-2023 History of Present illness Narrative Subjective Essence Castorena is a 72 y.o. female Chief Complaint Follow-up HPI Patient is here for follow-up continue management for history of coronary artery disease with remote PCI in [place], hypertension, hyperlipidemia. Patient is a resident of a local fci. She had dense left-sided hemiplegia. She denies any chest pain but reports some mild shortness of breath since the last time I saw her. She has limited exercise tolerance. She has been stable cardiac cifuentes. Assessment 1. Coronary artery disease prior intervention in [place] detail is lacking. Recent evaluation of atypical chest pain. Stress test and echocardiogram appears to be reassuring 2. Chronic kidney disease on hemodialysis 3. Hypertension controlled 4. Hyperlipidemia on treatment 5. Diabetes mellitus 6. History of stroke with left-sided hemiplegia almost wheelchair-bound 7. intermediate resident 8. Intermittent episode of hemodialysis associated hypotension she was admitted during intermittently 9. Anemia of chronic disease Plan 1. I recommended the patient to continue current therapy 2. I reviewed the result of her recent hospitalization record including echocardiogram and stress test 3. I advised the patient to notify me if he had recurrence of her symptoms 4. Family report preference for more conservative management and the patient is DNR 5. We will see her back in 1 year Review of Systems Respiratory: Positive for shortness of breath. Neurological: Positive for light-headedness. Left-sided hemiplegia All other systems reviewed and are negative. Visit Vitals BP 132/80 (BP Location: Left arm, Patient Position: Sitting) Pulse 76 Smoking Status Former Objective Physical Exam Constitutional: Appearance: Normal appearance. She is normal weight. HENT: Nose: Nose normal. Neck: Vascular: No carotid bruit. Cardiovascular: Rate and Rhythm: Normal rate. Pulses: Normal pulses. Heart sounds: Normal heart sounds. Pulmonary: Effort: Pulmonary effort is normal. Abdominal: General: Bowel sounds are normal. Palpations: Abdomen is soft. Genitourinary: Rectum: Normal. Musculoskeletal: General: Normal range of motion. Cervical back: Normal range of motion. Right lower leg: No edema. Left lower leg: No edema. Skin: General: Skin is warm and dry. Neurological: General: No focal deficit present. Mental Status: She is alert. Comments: Left-sided dense hemiplegia Psychiatric: Mood and Affect: Mood normal. Behavior: Behavior normal. Thought Content: Thought content normal. Judgment: Judgment normal. Current Medications Current Outpatient Medications: acetaminophen (Tylenol) 325 mg tablet, Take 1 tablet (325 mg) by mouth every 6 hours if needed for mild pain (1 - 3)., Disp: , Rfl: atorvastatin (Lipitor) 20 mg tablet, Take 1 tablet (20 mg) by mouth once daily., Disp: , Rfl: calcium carbonate (Tums) 200 mg calcium chewable tablet, Chew 1 tablet (500 mg) 3 times a day. prn, Disp: , Rfl: carvedilol (Coreg) 12.5 mg tablet, Take 1 tablet (12.5 mg) by mouth 2 times a day with meals., Disp: , Rfl: fexofenadine (Debbie) 60 mg tablet, Take 1 tablet (60 mg) by mouth once daily., Disp: , Rfl: furosemide (Lasix) 40 mg tablet, Take 1 tablet (40 mg) by mouth once daily., Disp: , Rfl: gabapentin (Neurontin) 300 mg capsule, Take 1 capsule (300 mg) by mouth 3 times a day., Disp: , Rfl: HYDROcodone-acetaminophen (Greenbush) 5-325 mg tablet, Take 1 tablet by mouth 3 times a day as needed for severe pain (7 - 10)., Disp: , Rfl: insulin NPH and regular human (HumuLIN 70-30, NovoLIN 70-30) 100 unit/mL (70-30) injection, Inject under the skin 2 times a day before meals. Take as directed per insulin instructions., Disp: , Rfl: magnesium oxide (Mag-Ox) 400 mg tablet, Take 1 tablet (400 mg) by mouth 2 times a day., Disp: , Rfl: midodrine (Proamatine) 5 mg tablet, Take 1 tablet (5 mg) by mouth 3 (three) times a week. Take one tablet by mouth on Wednesday, Wednesday, and Wednesday, Disp: , Rfl: omeprazole (PriLOSEC) [address] capsule, Take 1 capsule (20 mg) by mouth once daily in the morning. Take before meals. Do not crush or chew., Disp: , Rfl: ondansetron (Zofran) 4 mg tablet, Take 1 tablet (4 mg) by mouth every 8 hours if needed for nausea or vomiting., Disp: , Rfl: sertraline (Zoloft) 25 mg tablet, Take 1 tablet (25 mg) by mouth once daily., Disp: , Rfl: Assessment/Plan 1. Atherosclerosis of tolowa dee-ni' coronary artery of tolowa dee-ni' heart without angina pectoris Follow Up In Cardiology 2. Chest discomfort Follow Up In Cardiology 3. Essential hypertension, benign 4. Mixed hyperlipidemia 5. Dialysis patient (CMS/HCC) 6. Cerebrovascular accident (CVA), unspecified mechanism (CMS/HCC) documented in this encounter [facility] Work Phone: 03-23-2023 Instructions Shannan York CMA - 03/23/2023 2:20 PM EST Please bring all medicines, vitamins, and herbal supplements with you when you come to the office. Prescriptions will not be filled unless you are compliant with your follow up appointments or have a follow up appointment scheduled as per instruction of your physician. Refills should be requested at the time of your visit. documented in this encounter [facility] Work Phone: 07-31-2022 Progress note Note Date/Time July 31, 2022 11:02[facility] [address] Hem/Onc Follow Up Note - OP Signed Patient: Amparo Castorena MR#: [id number] : 1950 Acct:[id number] Age/Sex: 71 / F Type: REG RCR Copies to: MD Christopher Palafox MD~ Date of Service: 07/31/2022 Time of Service: 11:00 - Assessment & Plan (1) Anemia in chronic kidney disease (CKD) Plan: Anemia of chronic kidney disease CKD-IV on dialysis. Previously seen at [facility] and transferred care to [facility] as of 07/01/22 now on dialysis, gets epo agents through dialysis. Is awaiting fistula for dialysis, this will be done in [place] Previous anemia work-up completed prior to transfer of care- paraprotein eval negative. Iron studies will be repeated at follow-up. She maintains on oral iron supplementation currently as prophylaxis to keep her iron WNL Follow Up Instructions: cbc, cmp, iron studies, b12, folate, prior to f/u in 6 months. - History of Present Illness Chief Complaint: Patient is here for a one month follow up with outside labs forreview. No concerns voiced at this time. Patient has dialysis today HPI: Amparo is a 71-year-old female with a history of CVA, diabetes, PVD, [place] x 2, cataracts, hyperlipidemia, HTN, GERD, and anemia of CKD. Surgical history includes hysterectomy, carpal tunnel surgery and bilateral arthroscopic knee surgery. She denies any personal or family history of cancer. She is referred by Dr. Sanchez Jean at [facility] to establish care for her anemia from CKD. She recently started Aranesp weekly and is in the process of getting dialysis fistula placed to start dialysis. Most recent labs reveal hgb 8.1, wbc 13.9, platelets 135,000, anc 10.8. Creatinine 4.9 with GFR 9, calcium 8.0. She is transferring care as she resides at [facility] in [place] and this is muchcloser for her and in network. Previous paraprotein evaluation completed and negative per records. Will request these. On exam she has some fatigue, but denies shortness of breath or chest pain. She has occasional diarrhea maybe a few times each week. She is eating and drinking ok. She has pruritus without rash and is told this is from her kidneys. Her left-sided weakness is unchanged from previous stroke. She denies n/v, constipation, numbness, tingling, fevers, chills, sweats, pain or other complaints. 07/31/22 She is doing ok. - Physical Exam CONSTITUTIONAL: The patient is in no acute distress. HEAD / FACE: Normocephalic. EYES: Pupils are equal and reactive to light. Conjunctivae and lids are benign in appearance. Ocular movement intact. EARS: Hearing grossly intact. NOSE / MOUTH / THROAT: Nose, mouth, tongue and oropharynx are benign in appearance. No signs of inflammation. NECK / THYROID: Neck is supple. Thyroid is symmetrical, without thyromegaly, masses or palpable nodules. LYMPHATIC: No palpable cervical, supraclavicular, axillary, or inguinal adenopathy. RESPIRATORY: Normal to inspection. Lungs with mild scattered wheezing. No rales,rhonchi or rubs. Normal effort. CARDIOVASCULAR: Regular rate and rhythm. No murmurs, gallops, or rubs. ABDOMEN: Bowel sounds normoactive. Soft, nontender, non-distended. No splenomegaly. No palpable masses. INTEGUMENTARY: The skin is unremarkable. No rashes. No suspicious lesions. A fewscabs to her face and shoulders from scratching EXTREMITIES: No cyanosis or clubbing. 1+ edema BLE NEUROLOGICAL: Alert and oriented. Cranial nerves intact. Left sided weakness from previous stroke PSYCHIATRIC: No anxiety or evidence of depression. - Time with Patient Coordination of Care & Counseling Time: Greater than 50% of time spent with patient was for coordination of care (as documented) and [id number] counseling of patient and/or family. [facility] - Medical History Medical History: Medical History (Last Reviewed 07/01/22 @ 09:33 by Susy Arango) CVA (cerebral vascular accident) several Diabetes mellitus, type 2 GERD (gastroesophageal reflux disease) History of cataract Hyperlipidemia Hypertension Myocardial infarct x2 PVD (peripheral vascular disease) - Surgical History Surgical History: Surgical History (Last Reviewed 07/01/22 @ 09:34 by Susy Arango) History of arthroscopic knee surgery bilateral x2 History of carpal tunnel release rt History of hysterectomy - Family History Family History: Family History (Last Reviewed 07/01/22 @ 09:34 by Susy Arango) Mother HTN (hypertension) Diabetes Father Diabetes Brother CAD (coronary artery disease) Diabetes - Social History Smoking Status: Former smoker Substance Use Type: None Additional Data - Additional Objective Data Height/Weight: Height 5 ft 4 in Weight 109 kg Vital Signs: 07/31/22 10:41 Temperature 98.4 F Pulse Rate [Right Brachial] 74 Respiratory Rate 20 Blood Pressure [Right Arm] 136/68 02 Sat by Pulse Oximetry 97 Oxygen Delivery Method Room Air - Home Medications and Allergies Allergies/Adverse Reactions: Allergies cephalexin [From Keflex] Allergy (Verified 07/01/22 09:34) Unknown Reaction diclofenac [From Arthrotec] Allergy (Verified 07/01/22 09:34) Swelling misoprostol [From Arthrotec] Allergy (Verified 07/01/22 09:34) Swelling Home Medications: Home Medications acarbose 100 mg tablet 100 mg PO BID dm 03/28/21 [History Confirmed 07/01/22] amlodipine 5 mg tablet (Norvasc) 10 mg PO DAILY 03/28/21 [History Confirmed 07/31/22] atorvastatin 20 mg tablet 20 mg PO QHS 03/28/21 [History Confirmed 07/31/22] calcium 500 mg-D3 400 unit-K 15 mcg-folic [id number] tablet 1 tab PO DAILY 03/28/21 [History Confirmed 07/31/22] calcium carbonate 200 mg calcium (500 mg) chewable tablet (Calcium Antacid) 400 mg PO TIDWM PRN Heartburn 03/28/21 [History Confirmed 07/31/22] carvedilol 12.5 mg tablet 12.5 mg PO BID 03/28/21 [History Confirmed 07/31/22] fexofenadine 60 mg tablet (Debbie Allergy) 60 mg PO DAILY 03/28/21 [History Confirmed 07/31/22] gabapentin 300 mg tablet,extended release 24 hr 300 mg PO QHS 03/28/21 [History Confirmed 07/31/22] insulin human U-100 NPH-regulr 70-30 mix 100 unit/mL subcutaneous susp (Novolin 70/30 U-100 Insulin) 50 unit subcut DAILY 03/28/21 [History Confirmed 07/31/22] omeprazole 20 mg tablet,delayed release 20 mg PO DAILY 06/30/22 [History Confirmed 07/31/22] sertraline 25 mg tablet 25 mg PO DAILY 06/30/22 [History Confirmed 07/31/22] sodium zirconium cyclosilicate 5 gram oral powder packet (Lokelma) 5 g PO DAILY 06/30/22 [History Confirmed 07/31/22] acetaminophen 325 mg tablet 325 mg PO Q6H PRN Pain 07/01/22 [History Confirmed 07/31/22] amino acids-protein hydrolysate 17 gram-100 kcal/30 mL oral liquid (Pro-Stat AWC) 1 ea PO DAILY ckd 07/01/22 [History Confirmed 07/01/22] bisacodyl 10 mg rectal suppository 10 mg ME DAILY PRN Constipation 07/01/22 [History Confirmed 07/31/22] cholecalciferol (vitamin D3) 1,250 mcg (50,000 unit) capsule 1,250 mcg PO DIRECTED 07/01/22 [History Confirmed 07/31/22] dextrose 40 % oral gel (Glucose Gel) 10 g PO DIRECTED PRN Diabetes 07/01/22 [History Confirmed 07/31/22] epoetin chris 2,000 unit/mL injection solution 2,000 unit subcut QWEEK 07/01/22 [History Confirmed 07/31/22] glucagon HCl 1 mg solution for injection (Glucagon (HCl) Emergency Kit) 1 mg IM DIRECTED 07/01/22 [History Confirmed 07/31/22] guaifenesin 600 mg tablet, extended release 12 hr (Mucinex) 600 mg PO Q12H PRN Congestion 07/01/22 [History Confirmed 07/31/22] hydrocodone 5 mg-acetaminophen 325 mg tablet 1 tab PO Q8H PRN Pain 07/01/22 [History Confirmed 07/31/22] hydrocortisone 1 % topical gel 1 applic topical DIRECTED 07/01/22 [History Confirmed 07/31/22] loperamide 2 mg capsule 2 mg PO DIRECTED 07/01/22 [History Confirmed 07/31/22] magnesium oxide 400 mg PO BID 07/01/22 [History Confirmed 07/31/22] ondansetron 4 mg disintegrating tablet 4 mg PO Q8H PRN Nausea And Vomiting 07/01/22 [History Confirmed 07/31/22] folic acid 1 mg tablet 1 mg PO DAILY 07/31/22 [History Confirmed 07/31/22] furosemide 40 mg tablet 40 mg PO DAILY 07/31/22 [History Confirmed 07/31/22] Dictated By: Tex Kim II, DO DD/ 1100 Signed By: <Electronically signed by Tex Kim II, DO> 07/31/22 1105 [facility] Work Phone: [phone]) 608-127503-21-2023 Evaluation note* Encounter Date Diagnosis Assessment Notes Treatment Notes Treatment Clinical Notes Jun, Chronic kidney disea se, stage V (ICD-10 - N18.5) Thanks for referring Mrs. Castorena to our office for an evaluation and management of CKD. She has advanced CKD due to diabetic kidney disease and hypertensive nephrosclerosis. She reported to have a mild uremic symptoms. Patient and daughter are still interested in hemodialysis. I explained to the patient and the daughter to initiate dialysis after hemodialysis catheter placement. Both are in agreement. I called the vascular office and request for placement of the hemodialysis catheter. Jun, Benign hypertension with ESRD (end-stage renal disease) (ICD-10 - I12.0) Blood pressure is high and she appears to be hypervolemic. I have prescribed oral Lasix 40 g daily. Jun, Anemia of renal dise ase (ICD-10 - D63.1) Hemoglobin is below the goal. Continue Procrit 20,000 unit weekly. Jun, Secondary hyperparathyroidism (ICD-10 - N25.81) Calcium is within the normal limit. We will check PTH and vitamin D. Jun, Diabetes mellitus wi th chronic kidney disease (ICD-10 - E11.22) Continue insulin as per the primary team. I have stopped the acarbose due to the advanced CKD. [employer] Other 03-08-2023 Consult note Author Essence [facility] July 01, 2022 1:16pm Note Date/Time July 01, 2022 9:47 am [facility] [place] [address] Hem/Onc Consult Note - OP Signed Patient: Amparo Castorena MR#: [id number] : 1950 Acct:[id number] Age/Sex: 71 / F Type: REG RCR Copies to: MD Christopher Palafox MD~ HPI Date/Time of Service: Date of Service: 07/01/2022 Time of Service: 09:46 Referring Provider/PCP: Referring Provider: Sanchez Jean MD PCP: Christopher Mann MD - History of Present Illness Chief Complaint: Patient is transferring care from [facility] for anemia. Resides at [facility]. Outside labs. HPI: Amparo is a 71-year-old female with a history of CVA, diabetes, PVD, WI x 2, cataracts, hyperlipidemia, HTN, GERD, and anemia of CKD. Surgical history includes hysterectomy, carpal tunnel surgery and bilateral arthroscopic knee surgery. She denies any personal or family history of cancer. She is referred by Dr. Sanchez Jean at [facility] to establish care for her anemia from CKD. She recently started Aranesp weekly and is in the process of getting dialysis fistula placed to start dialysis. Most recent labs reveal hgb 8.1, wbc 13.9, platelets 135,000, anc 10.8. Creatinine 4.9 with GFR 9, calcium 8.0. She is transferring care as she resides at [facility] in [place] and this is muchcloser for her and in network. Previous paraprotein evaluation completed and negative per records. Will request these. On exam she has some fatigue, but denies shortness of breath or chest pain. She has occasional diarrhea maybe a few times each week. She is eating and drinking ok. She has pruritus without rash and is told this is from her kidneys. Her left-sided weakness is unchanged from previous stroke. She denies n/v, constipation, numbness, tingling, fevers, chills, sweats, pain or other complaints. [facility] - Medical History Medical History: Medical History (Last Reviewed 07/01/22 @ 09:33 by Susy Arango) CVA (cerebral vascular accident) several Diabetes mellitus, type 2 GERD (gastroesophageal reflux disease) History of cataract Hyperlipidemia Hypertension Myocardial infarct x2 PVD (peripheral vascular disease) - Surgical History Surgical History: Surgical History (Last Reviewed 07/01/22 @ 09:34 by Susy Arango) History of arthroscopic knee surgery bilateral x2 History of carpal tunnel release rt History of hysterectomy - Family History Family History: Family History (Last Reviewed 07/01/22 @ 09:34 by Susy Arango) Mother HTN (hypertension) Diabetes Father Diabetes Brother CAD (coronary artery disease) Diabetes - Social History Smoking Status: Former smoker Substance Use Type: None Home Medications & Allergies Allergies cephalexin [From Keflex] Allergy (Verified 07/01/22 09:34) Unknown Reaction diclofenac [From Arthrotec] Allergy (Verified 07/01/22 09:34) Swelling misoprostol [From Arthrotec] Allergy (Verified 07/01/22 09:34) Swelling Home Medications acarbose 100 mg tablet 100 mg PO BID dm 03/28/21 [History Confirmed 07/01/22] amlodipine 5 mg tablet (Norvasc) 10 mg PO DAILY 03/28/21 [History Confirmed 07/01/22] atorvastatin 20 mg tablet 20 mg PO QHS 03/28/21 [History Confirmed 07/01/22] calcium 500 mg-D3 400 unit-K 15 mcg-folic [id number] tablet 1 tab PO DAILY 03/28/21 [History Confirmed 07/01/22] calcium carbonate 200 mg calcium (500 mg) chewable tablet (Calcium Antacid) 400 mg PO TIDWM PRN Heartburn 03/28/21 [History Confirmed 07/01/22] carvedilol 12.5 mg tablet 12.5 mg PO BID 03/28/21 [History Confirmed 07/01/22] ferrous sulfate 325 mg (65 mg iron) tablet 325 mg PO DAILY 03/28/21 [History Confirmed 07/01/22] fexofenadine 60 mg tablet (Debbie Allergy) 60 mg PO DAILY 03/28/21 [History Confirmed 07/01/22] gabapentin 300 mg tablet,extended release 24 hr 300 mg PO QHS 03/28/21 [History Confirmed 07/01/22] insulin human U-100 NPH-regulr 70-30 mix 100 unit/mL subcutaneous susp (Novolin 70/30 U-100 Insulin) 50 unit subcut DAILY 03/28/21 [History Confirmed 07/01/22] omeprazole 20 mg tablet,delayed release 20 mg PO DAILY 06/30/22 [History Confirmed 07/01/22] sertraline 25 mg tablet 25 mg PO DAILY 06/30/22 [History Confirmed 07/01/22] sodium zirconium cyclosilicate 5 gram oral powder packet (Lokelma) 5 g PO DAILY 06/30/22 [History Confirmed 07/01/22] acetaminophen 325 mg tablet 325 mg PO Q6H PRN Pain 07/01/22 [History Confirmed 07/01/22] amino acids-protein hydrolysate 17 gram-100 kcal/30 mL oral liquid (Pro-Stat AWC) 1 ea PO DAILY ckd 07/01/22 [History Confirmed 07/01/22] bisacodyl 10 mg rectal suppository 10 mg ME DAILY PRN Constipation 07/01/22 [History Confirmed 07/01/22] cholecalciferol (vitamin D3) 1,250 mcg (50,000 unit) capsule 1,250 mcg PO DIRECTED 07/01/22 [History Confirmed 07/01/22] dextrose 40 % oral gel (Glucose Gel) 10 g PO DIRECTED PRN Diabetes 07/01/22 [History Confirmed 07/01/22] epoetin chris 2,000 unit/mL injection solution 2,000 unit subcut QWEEK 07/01/22 [History Confirmed 07/01/22] glucagon HCl 1 mg solution for injection (Glucagon (HCl) Emergency Kit) 1 mg IM DIRECTED 07/01/22 [History Confirmed 07/01/22] guaifenesin 600 mg tablet, extended release 12 hr (Mucinex) 600 mg PO Q12H PRN Congestion 07/01/22 [History Confirmed 07/01/22] hydrocodone 5 mg-acetaminophen 325 mg tablet 1 tab PO Q8H PRN Pain 07/01/22 [History Confirmed 07/01/22] hydrocortisone 1 % topical gel 1 applic topical DIRECTED 07/01/22 [History Confirmed 07/01/22] loperamide 2 mg capsule 2 mg PO DIRECTED 07/01/22 [History Confirmed 07/01/22] magnesium oxide 400 mg PO BID 07/01/22 [History Confirmed 07/01/22] ondansetron 4 mg disintegrating tablet 4 mg PO Q8H PRN Nausea And Vomiting 07/01/22 [History Confirmed 07/01/22] sodium bicarbonate 650 mg tablet 1,300 mg PO BID 07/01/22 [History Confirmed 07/01/22] Objective - Height/Weight Height/Weight: Height 5 ft 4 in - Vital Signs Vital Signs: 07/01/22 09:42 Temperature 98.1 F Pulse Rate [Right Brachial] 68 Respiratory Rate 18 Blood Pressure [Right Arm] 134/71 02 Sat by Pulse Oximetry 96 Oxygen Delivery Method Room Air Physical Exam Narrative: CONSTITUTIONAL: The patient is in no acute distress. HEAD / FACE: Normocephalic. EYES: Pupils are equal and reactive to light. Conjunctivae and lids are benign in appearance. Ocular movement intact. EARS: Hearing grossly intact. NOSE / MOUTH / THROAT: Nose, mouth, tongue and oropharynx are benign in appearance. No signs of inflammation. NECK / THYROID: Neck is supple. Thyroid is symmetrical, without thyromegaly, masses or palpable nodules. LYMPHATIC: No palpable cervical, supraclavicular, axillary, or inguinal adenopathy. RESPIRATORY: Normal to inspection. Lungs with mild scattered wheezing. No rales,rhonchi or rubs. Normal effort. CARDIOVASCULAR: Regular rate and rhythm. No murmurs, gallops, or rubs. ABDOMEN: Bowel sounds normoactive. Soft, nontender, non-distended. No splenomegaly. No palpable masses. INTEGUMENTARY: The skin is unremarkable. No rashes. No suspicious lesions. A fewscabs to her face and shoulders from scratching EXTREMITIES: No cyanosis or clubbing. 1+ edema BLE NEUROLOGICAL: Alert and oriented. Cranial nerves intact. Left sided weakness from previous stroke PSYCHIATRIC: No anxiety or evidence of depression. Assessment and Plan (1) Anemia in chronic kidney disease (CKD) Anemia of chronic kidney disease Her kidney function is worsening and she will start dialysis soon. Previously seen at [facility] and transferred care to [facility] as of 07/01/22 She is currently on Aranesp weekly, will clarify dose. [facility] Is awaiting fistula for dialysis, this will be done in [place] Previous anemia work-up completed prior to transfer of care- paraprotein eval negative. Iron studies will be repeated at follow-up. She maintains on oral iron supplementation currently as prophylaxis to keep her iron WNL We will follow-up in 1 month with cbc, cmp, iron studies. She will continue withweekly cbc and aranesp for hgb < 10. We will make adjustments to this as needed moving forward. - Time with Patient Coordination of Care & Counseling Time: Greater than 50% of time spent with patient was for coordination of care (as documented) and [id number] counseling of patient and/or family. Dictated By: Essence [place] APRN DD/ [id number] Signed By: <Electronically signed by ELLA [place]> 07/01/22 1316 [facility] Work Phone: Evaluation noteNo assessment information available [facility] Work Phone: Evaluation noteNo InformationNort [employer] Other Evaluation note* Diagnosis Onset Date Resolution Status Anemia in chronic kidney disease (CKD) acute Anemia in chronic kidney disease (CKD) acute Atypical chest pain acute UTI (urinary tract infection) acute [facility] Work Phone: Evaluation note* Diagnosis Onset Date Resolution Status Anemia in chronic kidney disease (CKD) acute [facility] Work Phone: Evaluation note* Diagnosis Atherosclerosis of [place]-ni' coronary artery of [place]' heart without angina pectoris- Primary Chest discomfort Other chest pain Essential hypertension, benign Mixed hyperlipidemia Dialysis patient (CMS/HCC) Renal dialysis status Cerebrovascular accident (CVA), unspecified mechanism (CMS/HCC) documented in this encounter [facility] Work Phone: History general Narrative - Reported* Type Description Date Medical History CAD Medical History Chol Medical History HTN Medical History Knee Pain Chronic Medical History tinnitus Medical History BIJAL Medical History Endometrial CA - 2005 Medical History GERD Medical History HYPERLIPIDEMIA Medical History ANEMIA OF CKD Medical History HISTORY OF CVA Medical History DIABETES MELLITUS, TYPE 2 Medical History PVD (PERIPHERAL VASCULAR DISEASE ) Medical History WI X2 Medical History CVA (CEREBRAL VASCULAR ACCIDENT) Surgical History Rt Knee Scope Surgical History Lt Knee Scope 1999 Surgical History Carpal Tunnel Surgical History Rt Hand - Tumor - benign Surgical History Tubal 1985 Surgical History Hyster 2004 Surgical History Heart Cath with Stents 09/2007 Surgical History FISTULA PLACEMENT IN RIGHT ARM 07/13/22 Hospitalization History see Surgery list [employer] Other History of Present illness Narrative* Patient is here for follow-up from recent hospitalization. She is accompanied by her daughter. Patient appears to be poor historian. Most of the information gathered from the daughter. I saw her during recent hospitalization for evaluation of atypical chest pain. Patient reported history of coronary artery disease prior intervention in [place]. Detail is lacking. She does have history of end-stage renal disease on hemodialysis. She does have history of stroke with left-sided weakness. Since her discharge from the hospital patient denies any chest pain. She is receiving hemodialysis since July. She underwent shunt placement and daughter report that her dialysis catheter will be removed in the near future. While in the hospital patient underwent work-up including an echocardiogram which showed normal LV systolic function. Her stress test was negative for myocardial ischemia. * Assessment * 1. Coronary artery disease prior intervention in [place] detail is lacking. Recent evaluation of atypical chest pain. Stress test and echocardiogram appears to be reassuring * 2. Chronic kidney disease on hemodialysis * 3. Hypertension controlled * 4. Hyperlipidemia on treatment * 5. Diabetes mellitus * 6. History of stroke with left-sided weakness and * 7. intermediate resident * 8. Intermittent episode of hemodialysis associated hypotension she was admitted during intermittently * 9. Anemia of chronic disease * Plan * 1. I recommended the patient to continue current therapy + aspirin * 2. I reviewed the result of her recent hospitalization record including echocardiogram and stress test * 3. I advised the patient to notify me if he had recurrence of her symptoms * 4. Family report preference for more conservative management and the patient is DNR [facility] [address] DO Work Phone: Progress note Author Tex Kim [facility] July 31, 2022 11:05am Note Date/Time July 31, 2022 11:0 2am [facility] at [address] [address] Hem/Onc Follow Up Note - OP Signed Patient: Amparo Castorena MR#: [id number] : 1950 Acct:[id number] Age/Sex: 71 / F Type: REG RCR Copies to: MD Christopher Palafox MD~ Date of Service: 07/31/2022 Time of Service: 11:00 - Assessment & Plan (1) Anemia in chronic kidney disease (CKD) Plan: Anemia of chronic kidney disease CKD-IV on dialysis. Previously seen at [facility] and transferred care to [facility] as of 07/01/22 now on dialysis, gets epo agents through dialysis. Is awaiting fistula for dialysis, this will be done in [place] Previous anemia work-up completed prior to transfer of care- paraprotein eval negative. Iron studies will be repeated at follow-up. She maintains on oral iron supplementation currently as prophylaxis to keep her iron WNL Follow Up Instructions: cbc, cmp, iron studies, b12, folate, prior to f/u in 6 months. - History of Present Illness Chief Complaint: Patient is here for a one month follow up with outside labs forreview. No concerns voiced at this time. Patient has dialysis today HPI: Amparo is a 71-year-old female with a history of CVA, diabetes, PVD, WI x 2, cataracts, hyperlipidemia, HTN, GERD, and anemia of CKD. Surgical history includes hysterectomy, carpal tunnel surgery and bilateral arthroscopic knee surgery. She denies any personal or family history of cancer. She is referred by Dr. Sanchez Jaen at [facility] to establish care for her anemia from CKD. She recently started Aranesp weekly and is in the process of getting dialysis fistula placed to start dialysis. Most recent labs reveal hgb 8.1, wbc 13.9, platelets 135,000, anc 10.8. Creatinine 4.9 with GFR 9, calcium 8.0. She is transferring care as she resides at [facility] in [place] and this is muchcloser for her and in network. Previous paraprotein evaluation completed and negative per records. Will request these. On exam she has some fatigue, but denies shortness of breath or chest pain. She has occasional diarrhea maybe a few times each week. She is eating and drinking ok. She has pruritus without rash and is told this is from her kidneys. Her left-sided weakness is unchanged from previous stroke. She denies n/v, constipation, numbness, tingling, fevers, chills, sweats, pain or other complaints. 07/31/22 She is doing ok. - Physical Exam CONSTITUTIONAL: The patient is in no acute distress. HEAD / FACE: Normocephalic. EYES: Pupils are equal and reactive to light. Conjunctivae and lids are benign in appearance. Ocular movement intact. EARS: Hearing grossly intact. NOSE / MOUTH / THROAT: Nose, mouth, tongue and oropharynx are benign in appearance. No signs of inflammation. NECK / THYROID: Neck is supple. Thyroid is symmetrical, without thyromegaly, masses or palpable nodules. LYMPHATIC: No palpable cervical, supraclavicular, axillary, or inguinal adenopathy. RESPIRATORY: Normal to inspection. Lungs with mild scattered wheezing. No rales,rhonchi or rubs. Normal effort. CARDIOVASCULAR: Regular rate and rhythm. No murmurs, gallops, or rubs. ABDOMEN: Bowel sounds normoactive. Soft, nontender, non-distended. No splenomegaly. No palpable masses. INTEGUMENTARY: The skin is unremarkable. No rashes. No suspicious lesions. A fewscabs to her face and shoulders from scratching EXTREMITIES: No cyanosis or clubbing. 1+ edema BLE NEUROLOGICAL: Alert and oriented. Cranial nerves intact. Left sided weakness from previous stroke PSYCHIATRIC: No anxiety or evidence of depression. - Time with Patient Coordination of Care & Counseling Time: Greater than 50% of time spent with patient was for coordination of care (as documented) and [id number] counseling of patient and/or family. [facility] - Medical History Medical History: Medical History (Last Reviewed 07/01/22 @ 09:33 by Susy Arango) CVA (cerebral vascular accident) several Diabetes mellitus, type 2 GERD (gastroesophageal reflux disease) History of cataract Hyperlipidemia Hypertension Myocardial infarct x2 PVD (peripheral vascular disease) - Surgical History Surgical History: Surgical History (Last Reviewed 07/01/22 @ 09:34 by Susy Arango) History of arthroscopic knee surgery bilateral x2 History of carpal tunnel release rt History of hysterectomy - Family History Family History: Family History (Last Reviewed 07/01/22 @ 09:34 by Susy Arango) Mother HTN (hypertension) Diabetes Father Diabetes Brother CAD (coronary artery disease) Diabetes - Social History Smoking Status: Former smoker Substance Use Type: None Additional Data - Additional Objective Data Height/Weight: Height 5 ft 4 in Weight 109 kg Vital Signs: 07/31/22 10:41 Temperature 98.4 F Pulse Rate [Right Brachial] 74 Respiratory Rate 20 Blood Pressure [Right Arm] 136/68 02 Sat by Pulse Oximetry 97 Oxygen Delivery Method Room Air - Home Medications and Allergies Allergies/Adverse Reactions: Allergies cephalexin [From Keflex] Allergy (Verified 07/01/22 09:34) Unknown Reaction diclofenac [From Arthrotec] Allergy (Verified 07/01/22 09:34) Swelling misoprostol [From [employer]throtec] Allergy (Verified 07/01/22 09:34) Swelling Home Medications: Home Medications acarbose 100 mg tablet 100 mg PO BID dm 03/28/21 [History Confirmed 07/01/22] amlodipine 5 mg tablet (Norvasc) 10 mg PO DAILY 03/28/21 [History Confirmed 07/31/22] atorvastatin 20 mg tablet 20 mg PO QHS 03/28/21 [History Confirmed 07/31/22] calcium 500 mg-D3 400 unit-K 15 mcg-folic [id number] tablet 1 tab PO DAILY 03/28/21 [History Confirmed 07/31/22] calcium carbonate 200 mg calcium (500 mg) chewable tablet (Calcium Antacid) 400 mg PO TIDWM PRN Heartburn 03/28/21 [History Confirmed 07/31/22] carvedilol 12.5 mg tablet 12.5 mg PO BID 03/28/21 [History Confirmed 07/31/22] fexofenadine 60 mg tablet (Debbie Allergy) 60 mg PO DAILY 03/28/21 [History Confirmed 07/31/22] gabapentin 300 mg tablet,extended release 24 hr 300 mg PO QHS 03/28/21 [History Confirmed 07/31/22] insulin human U-100 NPH-regulr 70-30 mix 100 unit/mL subcutaneous susp (Novolin 70/30 U-100 Insulin) 50 unit subcut DAILY 03/28/21 [History Confirmed 07/31/22] omeprazole 20 mg tablet,delayed release 20 mg PO DAILY 06/30/22 [History Confirmed 07/31/22] sertraline 25 mg tablet 25 mg PO DAILY 06/30/22 [History Confirmed 07/31/22] sodium zirconium cyclosilicate 5 gram oral powder packet (Lokelma) 5 g PO DAILY 06/30/22 [History Confirmed 07/31/22] acetaminophen 325 mg tablet 325 mg PO Q6H PRN Pain 07/01/22 [History Confirmed 07/31/22] amino acids-protein hydrolysate 17 gram-100 kcal/30 mL oral liquid (Pro-Stat AWC) 1 ea PO DAILY ckd 07/01/22 [History Confirmed 07/01/22] bisacodyl 10 mg rectal suppository 10 mg ME DAILY PRN Constipation 07/01/22 [History Confirmed 07/31/22] cholecalciferol (vitamin D3) 1,250 mcg (50,000 unit) capsule 1,250 mcg PO DIRECTED 07/01/22 [History Confirmed 07/31/22] dextrose 40 % oral gel (Glucose Gel) 10 g PO DIRECTED PRN Diabetes 07/01/22 [History Confirmed 07/31/22] epoetin chris 2,000 unit/mL injection solution 2,000 unit subcut QWEEK 07/01/22 [History Confirmed 07/31/22] glucagon HCl 1 mg solution for injection (Glucagon (HCl) Emergency Kit) 1 mg IM DIRECTED 07/01/22 [History Confirmed 07/31/22] guaifenesin 600 mg tablet, extended release 12 hr (Mucinex) 600 mg PO Q12H PRN Congestion 07/01/22 [History Confirmed 07/31/22] hydrocodone 5 mg-acetaminophen 325 mg tablet 1 tab PO Q8H PRN Pain 07/01/22 [History Confirmed 07/31/22] hydrocortisone 1 % topical gel 1 applic topical DIRECTED 07/01/22 [History Confirmed 07/31/22] loperamide 2 mg capsule 2 mg PO DIRECTED 07/01/22 [History Confirmed 07/31/22] magnesium oxide 400 mg PO BID 07/01/22 [History Confirmed 07/31/22] ondansetron 4 mg disintegrating tablet 4 mg PO Q8H PRN Nausea And Vomiting 07/01/22 [History Confirmed 07/31/22] folic acid 1 mg tablet 1 mg PO DAILY 07/31/22 [History Confirmed 07/31/22] furosemide 40 mg tablet 40 mg PO DAILY 07/31/22 [History Confirmed 07/31/22] Dictated By: Tex Kim II, DO DD/ 1100 Signed By: <Electronically signed by Tex Kim II, DO> 07/31/22 1105 [facility] Work Phone: Progress note Author Essence Alicea [facility] February 05, 2023 9:59am Note Date/Time February 05, 2023 9 :50am [facility] [place] [address] Hem/Onc Follow Up Note - OP Signed Patient: Amparo Castorena MR#: [id number] : 1950 Acct:[id number] Age/Sex: 72 / F Type: REG RCR Copies to: MD Christopher Palafox MD~ Date of Service: 02/05/2023 Time of Service: 09:49 - Assessment & Plan (1) Anemia in chronic kidney disease (CKD) Plan: Anemia of chronic kidney disease CKD-IV on dialysis. Previously seen at [facility] and transferred care to [facility] as of 07/01/22 now on dialysis, gets epo agents through dialysis. Previous anemia work-up completed prior to transfer of care- paraprotein eval negative. Iron studies will be repeated at follow-up. She maintains on oral iron supplementation currently as prophylaxis to keep her iron WNL Jan 2023 labs stable, hgb remains > 10. Iron studies ok. Will continue with labsevery 6 months with follow-up, sooner if needed. Follow Up Instructions: cbc, cmp, iron studies, b12/folate in 6mo follow-up in 6mo - History of Present Illness Chief Complaint: 6 month F/U for anemia with bloodwork to review HPI: Amparo is a 71-year-old female with a history of CVA, diabetes, PVD, WI x 2, cataracts, hyperlipidemia, HTN, GERD, and anemia of CKD. Surgical history includes hysterectomy, carpal tunnel surgery and bilateral arthroscopic knee surgery. She denies any personal or family history of cancer. She is referred by Dr. Sanchez Jean at [facility] to establish care for her anemia from CKD. She recently started Aranesp weekly and is in the process of getting dialysis fistula placed to start dialysis. Most recent labs reveal hgb 8.1, wbc 13.9, platelets 135,000, anc 10.8. Creatinine 4.9 with GFR 9, calcium 8.0. She is transferring care as she resides at [facility] in [place] and this is muchcloser for her and in network. Previous paraprotein evaluation completed and negative per records. Will request these. On exam she has some fatigue, but denies shortness of breath or chest pain. She has occasional diarrhea maybe a few times each week. She is eating and drinking ok. She has pruritus without rash and is told this is from her kidneys. Her left-sided weakness is unchanged from previous stroke. She denies n/v, constipation, numbness, tingling, fevers, chills, sweats, pain or other complaints. 07/31/22 She is doing ok. 02/05/23 she is doing ok overall, energy is still not great denies shortness of breath or chest pain. eating and drinking ok. gets heartburn about once per day despite taking omeprazole daily. Tums helps with this. She has never had EGD, has not seen GI recently, so discussed this briefly has nausea frequently, no vomiting. Goes back and forth sometimes with diarrhea and constipation. She will let her team know at the facility if she wants to seeGI labs stable (iron, hgb) - Physical Exam CONSTITUTIONAL: The patient is in no acute distress. HEAD / FACE: Normocephalic. RESPIRATORY: Normal to inspection. Lungs with mild scattered wheezing. No rales,rhonchi or rubs. Normal effort. CARDIOVASCULAR: Regular rate and rhythm. No murmurs, gallops, or rubs. ABDOMEN: Bowel sounds normoactive. Soft, nontender, non-distended. No splenomegaly. No palpable masses. NEUROLOGICAL: Alert and oriented. Cranial nerves intact. Left sided weakness from previous stroke PSYCHIATRIC: No anxiety or evidence of depression. - Time with Patient Coordination of Care & Counseling Time: Greater than 50% of time spent with patient was for coordination of care (as documented) and [id number] counseling of patient and/or family. [facility] - Medical History Medical History: Medical History (Last Reviewed 08/01/22 @ 14:17 by Danii Rodriguez MD) CKD (chronic kidney disease) CVA (cerebral vascular accident) several Diabetes mellitus, type 2 GERD (gastroesophageal reflux disease) History of cataract Hyperlipidemia Hypertension Myocardial infarct x2 PVD (peripheral vascular disease) - Surgical History Surgical History: Surgical History (Last Reviewed 08/01/22 @ 14:17 by Danii Rodriguez MD) History of arthroscopic knee surgery bilateral x2 History of carpal tunnel release rt History of hysterectomy - Family History Family History: Family History (Last Reviewed 08/01/22 @ 14:17 by Danii Rodriguez MD) Mother Hypertension Diabetes Father Diabetes Brother CAD (coronary artery disease) Diabetes - Social History Smoking Status: Former smoker Tobacco Type: cigarettes Substance Use Type: None Additional Data - Additional Objective Data Height/Weight: Height 5 ft 4 in Weight 109 kg Vital Signs: 02/05/23 09:31 Temperature 98.2 F Pulse Rate [Right Brachial] 72 Respiratory Rate 18 Blood Pressure [Right Arm] 130/70 02 Sat by Pulse Oximetry 97 Oxygen Delivery Method Room Air - Home Medications and Allergies Allergies/Adverse Reactions: Allergies cephalexin [From Keflex] Allergy (Verified 02/05/23 09:34) Unknown Reaction diclofenac [From Arthrotec] Allergy (Verified 02/05/23 09:34) Swelling misoprostol [From Arthrotec] Allergy (Verified 02/05/23 09:34) Swelling Home Medications: Home Medications amlodipine 5 mg tablet (Norvasc) 10 mg PO DAILY 03/28/21 [History Confirmed 02/05/23] atorvastatin 20 mg tablet 20 mg PO QHS 03/28/21 [History Confirmed 02/05/23] calcium 500 mg-D3 400 unit-K 15 mcg-folic [id number] tablet 1 tab PO DAILY 03/28/21 [History Confirmed 02/05/23] calcium carbonate 200 mg calcium (500 mg) chewable tablet (Calcium Antacid) 400 mg PO TIDWM PRN Heartburn 03/28/21 [History Confirmed 02/05/23] carvedilol 12.5 mg tablet 12.5 mg PO BID 03/28/21 [History Confirmed 02/05/23] fexofenadine 60 mg tablet (Debbie Allergy) 60 mg PO DAILY 03/28/21 [History Confirmed 02/05/23] gabapentin 300 mg tablet,extended release 24 hr 300 mg PO QHS 03/28/21 [History Confirmed 02/05/23] insulin human U-100 NPH-regulr 70-30 mix 100 unit/mL subcutaneous susp (Novolin 70/30 U-100 Insulin) 50 unit subcut DAILY 03/28/21 [History Confirmed 02/05/23] omeprazole 20 mg tablet,delayed release 20 mg PO DAILY 06/30/22 [History Confirmed 02/05/23] sertraline 25 mg tablet 25 mg PO DAILY 06/30/22 [History Confirmed 02/05/23] acetaminophen 325 mg tablet 325 mg PO Q6H PRN Pain 07/01/22 [History Confirmed 02/05/23] bisacodyl 10 mg rectal suppository 10 mg ME DAILY PRN Constipation 07/01/22 [History Confirmed 02/05/23] dextrose 40 % oral gel (Glucose Gel) 10 g PO DIRECTED PRN Diabetes 07/01/22 [History Confirmed 02/05/23] glucagon HCl 1 mg solution for injection (Glucagon (HCl) Emergency Kit) 1 mg IM DIRECTED 07/01/22 [History Confirmed 02/05/23] guaifenesin 600 mg tablet, extended release 12 hr (Mucinex) 600 mg PO Q12H PRN Congestion 07/01/22 [History Confirmed 02/05/23] hydrocortisone 1 % topical gel 1 applic topical DIRECTED 07/01/22 [History Confirmed 02/05/23] loperamide 2 mg capsule 2 mg PO DIRECTED 07/01/22 [History Confirmed 02/05/23] magnesium oxide 400 mg PO BID 07/01/22 [History Confirmed 02/05/23] ondansetron 4 mg disintegrating tablet 4 mg PO Q8H PRN Nausea And Vomiting 07/01/22 [History Confirmed 02/05/23] folic acid 1 mg tablet 1 mg PO DAILY 07/31/22 [History Confirmed 02/05/23] furosemide 40 mg tablet 40 mg PO DAILY 07/31/22 [History Confirmed 02/05/23] darbepoetin chris in polysorbat 60 mcg/mL in polysorbate injection (Aranesp) 60 mcg IV-PUSH WE@1000 #0 mL 08/05/22 [Rx Confirmed 02/05/23] hydrocodone 5 mg-acetaminophen 325 mg tablet 1 tab PO Q8H PRN Pain 3 days #9 tabs 08/05/22 [Rx Confirmed 02/05/23] Dictated By: Essence Alicea APRN DD/ 0949 Signed By: <Electronically signed by ELLA Alicea> 02/05/23 0959 [facility] Work Phone: Reason for referral (narrative)* Consultation (Routine) - Authorized Specialty Diagnoses / Procedures Referred By Contac t Referred To Contact Cardiology Diagnoses Atherosclerosis of [place]lowa de[place]-ni' coronary artery of tolowa dee-ni' heart without angina pectoris Chest discomfort Procedures Follow Up In Cardiology Danii Rodriguez MD [address] [place] [address], [address] [address] Danii Rodriguez MD [address] [place] [address], [address] [address] Referral ID Status Reason Start Date Expiration Date V isits Requested Visits Authorized [id number] Authorized 03/23/2023 03/22/2024 1 1 [facility] Work Phone: Summary Purpose Family History No Family History Records Found Relationship Condition Age at Onset Recorded Date/T jena Not Specified Hypertension Unknown Diabetes mellitus Unknown father Diabetes mellitus Unknown brother Coronary artery disease Unknown Unknown Family Member Name Dates Details Family history of diabetes rodney slater: Father, Brother(V18.0, Z83.3) Status:Active Family history of cerebrovas cular accident (CVA): Mother(V17.1, Z82.3) Status:Active Advance Directives No Advanced Directives Records Found Advance Directive Response Recorded Date/ Time Advance Directives No March 28, 2021 11:06am Advance Directive Response Recorded Date/ Time Advance Directives No March 28, 2021 12:06pm Chief Complaint and Reason for Visit Chief Complaint Anemia Chief Complaint Anemia chest pain Reason for Visit Anemia in chronic ki dney disease (CKD) Anemia in chronic kidney disease (CKD) Atypical chest pain UTI (urinary tract infection) Chief Complaint Anemia Reason for Visit Anemia in chronic ki dney disease (CKD) Chief Complaint ESSENCE CASTORENA is being seen for follow-up of a hospitalization for. Additional Source Comments INFORMATION SOURCE (unrecogn ized section and content) DATE CREATED AUTHOR 01/06/2019 [facility] DATE CREATED AUTHOR AUTHOR'S ORGANIZ ATION 06/15/2022 [facility] DATE CREATED AUTHOR AUTHOR'S ORGANIZ ATION 08/26/2022 [facility] DATE CREATED AUTHOR AUTHOR'S ORGANIZ ATION 09/07/2022 [facility] [place] [facility] DATE CREATED AUTHOR AUTHOR'S ORGANIZ ATION 11/12/2022 [employer] DATE CREATED AUTHOR AUTHOR'S ORGANIZ ATION 03/10/2023 [facility] DATE CREATED AUTHOR AUTHOR'S ORGANIZ ATION 03/18/2023 [facility] DATE CREATED AUTHOR AUTHOR'S ORGANIZ ATION 03/25/2023 [facility] [employer] Teams (unrecognized sec tion and content) Team Status: Active Member Role Status Dates Christopher Mann MD Primary Care Provider Active Team Status: Active Member Role Status Dates Christopher Mann MD Primary Care Provider Active Essence Alicea APRN Attending Provider Sarah Jean MD Referring Provider Active Team Status: Active Member Role Status Dates Malcolm Moss PA-C Emergency Provider Active Christopher Mann MD Primary Care Provider Active Camila Young MD Admit Provider, Attending Provider Active Financial Services Representative Relationship Specialty Start Date End Date Christopher Mann MD [address] [place] [address] [address] [place] [address] PCP - General 11/11/22 Goals (unrecognized section and content) Goals may be documented in a n alternate sectionNo InformationNo InformationNo InformationGoals may be documented in an alternate sectionGoals may be documented in an alternate sectionGoals may be documented in an alternate section REASON FOR VISIT (unrecogniz ed section and content) Reason Comments Follow-up 4-5 months FOR RECORDS PERTAINING TO PATIENTS WHO ARE OR HAVE BEEN ENROLLED IN A CHEMICAL DEPENDENCY/SUBSTANCEABUSE PROGRAM, SOME INFORMATION MAY BE OMITTED. This clinical summary was aggregated from multiple sources. Caution should be exercised in using it in the provision of clinical care. This summary normalizes information from multiple sources, and as a consequence, information in this document may materially change the coding, format and clinical context of patient data. In addition, data may be omitted in some cases. CLINICAL DECISIONS SHOULD BE BASED ON THE PRIMARY CLINICAL RECORDS. [employer] [facility]. provides no warranty or guarantee of the accuracy or completeness of information in this document.
[2023-04-14 09:27] LABS: Basophils Absolute Auto 0.1 10^3/uL (0.0-0.1); Basophils Percent Auto 0.7 % (0.2-2.0); Eosinophils Absolute Auto 0.2 10^3/uL (0.0-0.7); Eosinophils Percent Auto 1.9 % (0.9-7.0); Hematocrit 34.8 % (36.0-48.0); Immature Granulocytes Abs Auto 0.09 10^3/uL (0.00-0.03); Immature Granulocytes Pct Auto 0.9 % (0.0-0.5); Lymphocytes Absolute Auto 2.7 10^3/uL (1.2-3.8); Lymphocytes Percent Auto 25.2 % (20.5-60.0); Mean Corpuscular HGB Conc 31.6 g/dL (29.9-35.2); Mean Corpuscular Hemoglobin 32.8 pg (26.7-34.0); Mean Corpuscular Volume 103.9 fL (81.0-99.0); Mean Platelet Volume 10.6 fL (9.5-13.5); Monocytes Absolute Auto 0.5 10^3/uL (0.3-0.8); Monocytes Percent Auto 4.8 % (1.7-12.0); Neutrophils Percent Auto 66.5 % (43.0-75.0); Platelet Count 123 10^3/uL (150-450); Red Blood Count 3.35 10^6/uL (4.20-5.40); Red Cell Distribution Width 12.9 % (11.0-15.0); White Blood Count 10.5 10^3/uL (4.0-11.0)
== END 2023-04-14 06:00 | disposition home or self-care (01) ==
LOC: LAB 05:59
PROVIDERS: PCP Family Medicine; Visit Provider Family Medicine
DX: R73.9 Hyperglycemia, unspecified (principal); N18.4 Chronic kidney disease, stage 4 (severe)
CPT/HCPCS: 36415; 85025; 87086

== ENCOUNTER 2023-06-21 01:06 | Outpatient (REF) | payer MEDICARE, MEDICAID, SELFPAY ==
--- OUTSIDE RECORDS SUMMARY | 2023-06-21 01:10 | XMS_ITS | CCD ---
Author Name Unknown Address [address] [place] [address] Organization [facility] Care Team Providers Care Frankfur[place] Inspector Name Role Phone MD Christopher Mann Primary Care Provider [phone] ELLA Alicea Attending Provider MD Sanchez Jean Referring Provider [phone] Essie Salas Unavailable MD Christopher Mann Primary Care Provider ELLA Alicea Attending Provider MD Sanchez Jean Referring Provider SAMIRA Moss Emergency Provider MD Camila Young Admit Provider MD Camila Young Attending Provider Danii Rodriguez Attending Unavailable Traboulssi Mourhaf Attending Unavailable Traboulssi Moselwynf Attending Unavailable Traboulssi, Motatiana Attending Unavailable Trabrosana Moselwynf Attending Unavailable JOHNATHAN, DR WHITE Consulting Unavailable [...] Admitting Unavailable JOHNATHAN, DR WHITE Consulting Unavailable JOHANTHAN, DR WHITE Primary Care Unavailable OJHNATHAN, DR WHITE Attending Unavailable JOHNATHAN, DR WHITE [...] Attending Unavailable JOHNATHAN, DR WHITE Admitting Unavailable [place], Rugen M Unavailable Unavailable Unavailable MD Christopher Mann Primary Care Provider [phone] ELLA Alicea Attending Provider MD Sanchez Jean Referring Provider Essence Alicea Admitting Unavail able Essence Alicea Attending Unavail able Sanchez Jean Referring Unavailable Johnathan, Rugen M Primary Care Unavailable Johnathan, Rugen M Primary Care Unavailable Camila Young Admitting Unavailable Ed, Levy Attending Unavailable Kerrie Camilo Consulting Unavailable Dr. Danii Rodriguez Referring Unavaila ble Dr. Danii Rodriguez Attending Unavaila ble Johnathan, Dr. Christopher Joe Primary Care Unavaila Christopher Santana MD Primary Care Provider DANII RODRIGUEZ Attending Unavailable JOHNATHANCHRISTOPHER Primary Care Unavailable Allergies Allergy Classification Reported Allergen(s) Allergy Type Date of Onset Reaction(s) Facility (7 sources) Cephalexin; Translations: [cephalexin] Drug Allergy 3 Itching, Swelling [facility] (5 sources) Diclofenac; Translations: [diclofenac] Drug Allergy 3 Swelling [facility] (5 sources) miSOPROStol; Translations: [misoprostol] Drug Allergy 3 Swelling [facility] (5 sources) Cephalexin; Translations: [Keflex] Drug Allergy 6 reddened pruritic rash, Swelling, Itching [facility] (4 sources) Diclofenac / miSOPROStol Drug Allergy 3 [facility] (1 source) Diclofenac / miSOPROStol Drug Allergy 6 [facility] (1 source) Diclofenac / miSOPROStol; Translations: [Arthrotec TABS] Drug Allergy Hives, Itching, Rash [facility] [email or web address] 250 DO Work Phone: (1 source) shellfish, unspecified Allergy to substance (finding[facility] Work Phone: (2 sources) Shellfish; Translations: [SHELLFISH CONTAINING PRODUCTS] Propensity to adverse reactions 3 Nausea/vomiting [facility] Work Phone: (1 source) Diclofenac / miSOPROStol; [...] times daily as needed for pain HYDROcodone-acetaminophen ([place]) 5-325 mg tablet Take 1 tablet by mouth 3 times a day as needed for severe pain (7 - 10). 0 Active amLODIPine 5 mg oral tablet (7 sources) Dihydropyridine Calcium Channel Vilma Start: 03-28-2021 take 2 tablets by mouth once daily Amlodipine (Norvasc) 5 mg Tablet Active 10 MG PO Daily March 28, 2021 1:00am Start: 05-04-2011 take 1 tablet by haresh th every twenty-four hours amLODIPine Besylate 10 MG [...] 03-28-2021 End: 06-30-2022 Bisacodyl Active 10 MG IL Daily July 01, 2022 1:00am Calcium + [...] 2 tablets Orally Once a day Active Imflbeo-A7-B-Fa-U02-F-Cz nerals (4 sources) Start: 03-28-2021 take 1 tablet by mouth once daily Dmbaxkz-T9-R-Fa-B12-C-M inerals Active 1 TAB PO Daily March 28, 2021 1:00am Start: 03-28-2021 take 1 tablet by haresh th once daily Nisvzxu-V0-N-Qc-S61-RG02-L-Qaxmmqlz Active 1 TAB PO Daily March 28, [...] % as directed Externally Active Epoetin Chris 57206 UNIT/ML (3 sources) Epoetin Chris 200 00 [...] 28, 2021 1:00am take 1 capsule by mo [facility] three times daily gabapentin (Neurontin) 300 mg [...] 2022 10:54am take 2 tablets by mo [facility] every twelve hours Sodium Bicarbonate 650 MG [...] l admission (1 source) Lives in a long term; Translations: [Person living in residential institution] Episodic [...] Results Test Name Value Interpretation Reference Range Facility Office Visit (Cardiology)on 11-11-2022 Follow-up visit Diagnoses/Problems Assessed Atherosclerosis of [place] coronary artery without angina pectoris (414.01) (I25.10) Chest discomfort (786.59) (R07.89) Benign essential hypertension (401.1) (I10) Hyperlipidemia (272.4) (E78.5) Stroke (434.91) (I63.9) Dialysis patient (V45.11) (Z99.2) retirement resident (V60.6) (Z59.3) Former smoker (V15.82) (Z87.891) Orders SocHx: Former smoker Tobacco Use Screening; Status:Complete; Done: [id number] Patient Instructions Please bring all medicines, vitamins, [...] of coronary artery disease prior intervention in [place]. Detail is lacking. She does have history [...] 1. Coronary artery disease prior intervention in [place] detail is lacking. Recent evaluation of atypical chest pain. Stress test and echocardiogram appears to be reassuring 2. Chronic kidney disease on hemodialysis 3. Hypertension controlled 4. Hyperlipidemia on treatment 5. Diabetes mellitus 6. History of stroke with left-sided weakness and 7. retirement resident 8. Intermittent episode of hemodialysis associated [...] smoker (V15.82) (Z87.891) No illicit drug use retirement resident (V60.6) (Z59.3) Review of Systems Constitutional: [...] habits an (more content not included)... Normal Heavy Tobacco Screening.on 023 Fall risk assessment a) No falls within the last year -[facility] [employer] 250 DO Work Phone: Tobacco use status [facility] b) No -[facility] [employer] 250 DO Work Phone: Glucose Poct Glucometerson 0 08-05-2022 Glucose [Mass/Vol] 113 mg/dL Normal [facility] Comment on above: Result Comment: [place] om Glucose Reference Range is dependent on time and content of last meal. Glucose of more than 200 mg/dL in a nonstressed, ambulatory subject supports the diagnosis of Diabetes Mellitus. PERFORMED BY: [place] [address] PATHOLOGIST HOUSEKEEPER/LAUNDRY ASSISTANT DANII HAYNES M.D. Performed By: #### B MP, CBC #### [address] Glucose [Mass/Vol] 108 mg/dL Normal [facility] Comment on above: Result Comment: [facility] Glucose Reference Range is dependent on time and content of last meal. Glucose of more than 200 mg/dL in a nonstressed, ambulatory subject supports the diagnosis of Diabetes Mellitus. PERFORMED BY: [place] [address] PATHOLOGIST HOUSEKEEPER/LAUNDRY ASSISTANT DANII HAYNES M.D. Performed By: #### G LUMAMIE #### Point of Care testing , Renal Function Panelon 08-05 Albumin [Mass/Vol] 3.3 g/dL Low 3.5-5.7 [facility] Comment on above: Order Comment: pt wo uldnt let me retry to get the blood work Performed By: #### B MP, CBC #### [address] Anion gap [Moles/Vol] 13.9 mmol/L Normal 6.0-15.0 [facility] Comment on above: Order Comment: pt wo uldnt let me retry to get the blood work Performed By: #### B MP, CBC #### [place] [address] [place] Calcium [Mass/Vol] 8.6 mg/dL Normal 8.6-10.3 [facility] Comment on above: Order Comment: pt wo uldnt let me retry to get the blood work Performed By: #### B MP, CBC #### [place] [address] [place] Chloride [Moles/Vol] 98 mmol/L Normal 98-107 [facility] Comment on above: Order Comment: pt wo uldnt let me retry to get the blood work Performed By: #### B MP, CBC #### [facility] [address] CO2 [Moles/Vol] 26.3 mmol/L Normal 21.0-31.0 [facility] Comment on above: Order Comment: pt wo uldnt let me retry to get the blood work Performed By: #### B MP, CBC #### [facility] [address] Creatinine [Mass/Vol] 5.26 mg/dL Significan t change up 0.60-1.20 [facility] Comment on above: Order Comment: pt wo uldnt let me retry to get the blood work Performed By: #### B MP, CBC #### [facility] [address] [place] [address] [place] Creatinine Clr Calc Pharmacy 11.05 [facility] Comment on above: Order Comment: pt wo uldnt let me retry to get the blood work Result Comment: PERF ORMED BY: [place] [address] PATHOLOGIST HOUSEKEEPER/LAUNDRY ASSISTANT DANII HAYNES M.D. Performed By: #### B MP, CBC #### [place] [address] [place] GFR/1.73 sq M.predicted MDRD (S/P/Bld) [Vol rate/Area] 8.165 mL/min/{1.73_m2} [facility] Comment on above: Order Comment: pt wo uldnt let me retry to get the blood work Performed By: #### B MP, CBC #### [facility] [address] [place] [address] [place] Glucose [Mass/Vol] 111 mg/dL High 70-100 [facility] Comment on above: Order Comment: pt wo uldnt let me retry to get the blood work Result Comment: [place] Glucose Reference Range is dependent on time and content of last meal. Glucose of more than 200 mg/dL in a nonstressed, ambulatory subject supports the diagnosis of Diabetes Mellitus. ADA recommended reference range Performed By: #### B MP, CBC #### [address] Phosphate [Mass/Vol] 5.3 mg/dL Normal 3.7-7.2 [facility] Comment on above: Order Comment: pt wo uldnt let me retry to get the blood work Performed By: #### B MP, CBC #### [address] Potassium [Moles/Vol] 4.2 mmol/L Normal 3.5-5.1 [facility] Comment on above: Order Comment: pt wo uldnt let me retry to get the blood work Performed By: #### B MP, CBC #### [address] Sodium [Moles/Vol] 134 mmol/L Low 136-145 [facility] Comment on above: Order Comment: pt wo uldnt let me retry to get the blood work Performed By: #### B MP, CBC #### [place] [address] [place] Urea nitrogen [Mass/Vol] 48 mg/dL High 7-25 [facility] Comment on above: Order Comment: pt wo uldnt let me retry to get the blood work Performed By: #### B MP, CBC #### [address] Glucose Poct Glucometerson 0 08-04-2022 Glucose [Mass/Vol] 118 mg/dL Normal [facility] Comment on above: Result Comment: [facility] Glucose Reference Range is dependent on time and content of last meal. Glucose of more than 200 mg/dL in a nonstressed, ambulatory subject supports the diagnosis of Diabetes Mellitus. PERFORMED BY: [place] [address] PATHOLOGIST HOUSEKEEPER/LAUNDRY ASSISTANT DANII HAYNES M.D. Performed By: #### G LULS #### Point of Care testing , Glucose [Mass/Vol] 118 mg/dL Normal [facility] Comment on above: Result Comment: [facility] Glucose Reference Range is dependent on time and content of last meal. Glucose of more than 200 mg/dL in a nonstressed, ambulatory subject supports the diagnosis of Diabetes Mellitus. PERFORMED BY: [place] [address] PATHOLOGIST HOUSEKEEPER/LAUNDRY ASSISTANT DANII HAYNES M.D. Performed By: #### G LULS #### Point of Care testing , Glucose [Mass/Vol] 136 mg/dL Normal [facility] Comment on above: Result Comment: [facility] Glucose Reference Range is dependent on time and content of last meal. Glucose of more than 200 mg/dL in a nonstressed, ambulatory subject supports the diagnosis of Diabetes Mellitus. PERFORMED BY: [place] [address] PATHOLOGIST HOUSEKEEPER/LAUNDRY ASSISTANT DANII HAYNES M.D. Performed By: #### C #### [address] NM ping perf SPECT rest stron 08-04-2022 NM ping perf SPECT rest str [facility] [place] [address] [place] [address] Nuclear Medicine Report Signed Patient: Amparo Castorena MR#: [id number] 68 : 1950 Acct:[id number] Age/Sex: 71 / F ADM Date: 08/02/22 Loc: Room: [address] [place] [address] Type: ADM IN Attending Dr: Levy Ward MD Copies to: MD Jimbo Judd MD, [facility] Danii Rodriguez MD Ordering Provider: Danii Rodriguez [...] 08/04/22 1343 Dictated By: Jimbo Damon MD, [facility] 08/04/22 1247 Signed By: 08/04/22 1349 Normal [facility] Renal Function Panelon 08-04 Albumin [Mass/Vol] 3.0 g/dL Low 3.5-5.7 [facility] Comment on above: Performed By: #### C MP #### [facility] [address] [place] [address] [place] Anion gap [Moles/Vol] 13.5 mmol/L Normal 6.0-15.0 [facility] Comment on above: Performed By: #### C MP #### [facility] [address] [place] [address] [place] Calcium [Mass/Vol] 7.9 mg/dL Low 8.6-10.3 [facility] Comment on above: Performed By: #### C MP #### [facility] [address] [place] [id number] [place] Chloride [Moles/Vol] 97 mmol/L Low 98-107 [facility] Comment on above: Performed By: #### C MP #### [facility] [address] [place] [id number] [place] CO2 [Moles/Vol] 26.3 mmol/L Normal 21.0-31.0 [facility] Comment on above: Performed By: #### C MP #### [facility] [address] [place] [address] [place] Creatinine [Mass/Vol] 4.44 mg/dL Significan t change up 0.60-1.20 [facility] Comment on above: Performed By: #### C MP #### [place] [address] [place] Creatinine Clr Calc Pharmacy 13.53 Normal [facility] Comment on above: Result Comment: PERF ORMED BY: [place] [address] PATHOLOGIST HOUSEKEEPER/LAUNDRY ASSISTANT DANII HAYNES M.D. Performed By: #### C MP #### [place] [address] [place] GFR/1.73 sq M.predicted MDRD (S/P/Bld) [Vol rate/Area] 10.006 mL/min/{1.73_m2} Normal [facility] Comment on above: Performed By: #### C MP #### [address] Glucose [Mass/Vol] 136 mg/dL High 70-100 [facility] Comment on above: Result Comment: [facility] Glucose Reference Range is dependent on time and content of last meal. Glucose of more than 200 mg/dL in a nonstressed, ambulatory subject supports the diagnosis of Diabetes Mellitus. ADA recommended reference range Performed By: #### C MP #### [address] Phosphate [Mass/Vol] 4.2 mg/dL Normal 3.7-7.2 [facility] Comment on above: Performed By: #### C MP #### [place] [address] [place] Potassium [Moles/Vol] 3.8 mmol/L Normal 3.5-5.1 [facility] Comment on above: Performed By: #### C MP #### [place] [address] [place] Sodium [Moles/Vol] 133 mmol/L Low 136-145 [facility] Comment on above: Performed By: #### C MP #### [place] [address] [place] Urea nitrogen [Mass/Vol] 36 mg/dL High 7-25 [facility] Comment on above: Performed By: #### C MP #### [facility] [address] [place] [address] STR cardiac stress/lexiscano n 08-04-2022 STR cardiac stress/lexiscan [facility] [place] [address] [place] [address] Cardiac Stress Test Signed Patient: Amparo Castorena MR#: [id number] [birth year] : 1950 Acct:[id number] Age/Sex: 71 / F ADM Date: 08/02/22 Loc: Room: [address] [place] [address] Type: ADM IN Attending Dr: Levy Ward [...] study will be dictated separately. Transcribed By: WALLY 08/04/22 1359 Dictated By: Danii Rodriguez MD 08/04/22 1143 Signed By: 08/05/22 0802 [facility] Blood Cultureon 08-03-2022 Bacteria identified Cx Nom (Bld) NO GROWTH 5 DAYS PERFORMED BY: [place] [address] PATHOLOGIST HOUSEKEEPER/LAUNDRY ASSISTANT DANII HAYNES M.D. [facility] Comment on above: Performed By: #### C UBLD #### [facility] [address] [place] [address] [place] Bacteria identified Cx Nom (Bld) NO GROWTH 5 DAYS PERFORMED BY: [place] [address] PATHOLOGIST HOUSEKEEPER/LAUNDRY ASSISTANT DANII HAYNES M.D. Normal [facility] Comment on above: Performed By: #### C UBLD #### [address] Complete Blood Count Auto Di ffon 08-03-2022 Basophils (Bld) [#/Vol] 0.0 10*3/uL Normal 0.0-0.2 [facility] Comment on above: Result Comment: PERF ORMED BY: [place] [address] PATHOLOGIST HOUSEKEEPER/LAUNDRY ASSISTANT DANII HAYNES M.D. Performed By: #### G LULS #### Point of Care testing , Basophils/100 WBC (Bld) 0.4 % Normal . [facility] Comment on above: Performed By: #### G LULS #### Point of Care testing , Eosinophils (Bld) [#/Vol] 0.3 10*3/uL Normal 0.0-0.45 [facility] Comment on above: Performed By: #### G LULS #### Point of Care testing , Eosinophils/100 WBC (Bld) 2.7 % Normal . [facility] Comment on above: Performed By: #### G LULS #### Point of Care testing , Erythrocyte distribution width (RBC) [Ratio] 14.8 % Normal 11.9-15.3 [facility] Comment on above: Performed By: #### G LULS #### Point of Care testing , Hematocrit (Bld) [Volume fraction] 25.9 % Low 34.0-46.4 [facility] Comment on above: Performed By: #### G LULS #### Point of Care testing , Hemoglobin (Bld) [Mass/Vol] 8.4 g/dL Low 11.8-15.4 [facility] Comment on above: Performed By: #### G LULS #### Point of Care testing , Lymphocytes (Bld) [#/Vol] 2.0 10*3/uL Normal 1.00-4.8 [facility] Comment on above: Performed By: #### G CAPRICE #### Point of Care testing , Lymphocytes/100 WBC (Bld) 19.0 % Normal . [facility] Comment on above: Performed By: #### G MARLOLS #### Point of Care testing , MCH (RBC) [Entitic mass] 29.6 pg Normal 24.7-34.3 [facility] Comment on above: Performed By: #### G LULS #### Point of Care testing , MCV (RBC) [Entitic vol] 91.1 fL Normal 80-100 [facility] Comment on above: Performed By: #### G MARLOLS #### Point of Care testing , Mean Corpuscular HGB Conc 32.5 g/dL Normal 32.0-35.0 [facility] Comment on above: Performed By: #### Ayo SELLERSLS #### Point of Care testing , Monocytes (Bld) [#/Vol] 0.9 10*3/uL High 0.0-0.8 [facility] Comment on above: Performed By: #### G MARLOLS #### Point of Care testing , Monocytes/100 WBC (Bld) 9.0 % Normal . [facility] Comment on above: Performed By: #### G MARLOLS #### Point of Care testing , Neutrophils (Bld) [#/Vol] 7.1 10*3/uL Normal 1.8-7.7 [facility] Comment on above: Performed By: #### G MARLOLS #### Point of Care testing , Neutrophils/100 WBC (Bld) 68.9 % Normal . [facility] Comment on above: Performed By: #### G MARLOLS #### Point of Care testing , NRBC% 0.0 /100{WBC} Normal 0-0.5 [facility] Comment on above: Performed By: #### G MARLOLS #### Point of Care testing , Platelet mean volume (Bld) [Entitic vol] 8.0 fL Normal 6.3-10.7 [facility] Comment on above: Performed By: #### G CAPRICE #### Point of Care testing , Platelets (Bld) [#/Vol] 145 10*3/uL Low 150-450 [facility] Comment on above: Performed By: #### G CAPRICE #### Point of Care testing , RBC (Bld) [#/Vol] 2.84 10*6/uL Low 3.60-5.00 [facility] Comment on above: Performed By: #### G CAPRICE #### Point of Care testing , WBC (Bld) [#/Vol] 10.3 10*3/uL Normal 3.8-11.6 [facility] Comment on above: Performed By: #### G CAPRICE #### Point of Care testing , Glucose Poct Glucometerson 0 08-03-2022 Glucose [Mass/Vol] 144 mg/dL Normal [facility] Comment on above: Result Comment: [place] Glucose Reference Range is dependent on time and content of last meal. Glucose of more than 200 mg/dL in a nonstressed, ambulatory subject supports the diagnosis of Diabetes Mellitus. PERFORMED BY: [place] [address] PATHOLOGIST HOUSEKEEPER/LAUNDRY ASSISTANT DANII HAYNES M.D. Performed By: #### C MP #### [address] Commemt1 Glu2: Cleaned Meter Normal [facility] Comment on above: Result Comment: PERF ORMED BY: [place] [address] PATHOLOGIST HOUSEKEEPER/LAUNDRY ASSISTANT DANII HAYNES M.D. Performed By: #### C MP #### [address] Glucose [Mass/Vol] 175 mg/dL Normal [facility] Comment on above: Result Comment: [place] Glucose Reference Range is dependent on time and content of last meal. Glucose of more than 200 mg/dL in a nonstressed, ambulatory subject supports the diagnosis of Diabetes Mellitus. Performed By: #### C MP #### [address] Complete Blood Count Auto Di ffon 08-02-2022 Basophils (Bld) [#/Vol] 0.1 10*3/uL Normal 0.0-0.2 [facility] Comment on above: Result Comment: PERF ORMED BY: [place] [address] PATHOLOGIST HOUSEKEEPER/LAUNDRY ASSISTANT DANII HAYNES M.D. Performed By: #### C BC #### [address] Basophils/100 WBC (Bld) 0.7 % Normal . [facility] Comment on above: Performed By: #### C BC #### [address] Eosinophils (Bld) [#/Vol] 0.2 10*3/uL Normal 0.0-0.45 [facility] Comment on above: Performed By: #### C BC #### [address] Eosinophils/100 WBC (Bld) 1.7 % Normal . [facility] Comment on above: Performed By: #### C BC #### [address] Erythrocyte distribution width (RBC) [Ratio] 15.3 % Normal 11.9-15.3 [facility] Comment on above: Performed By: #### C BC #### [address] Hematocrit (Bld) [Volume fraction] 27.4 % Low 34.0-46.4 [facility] Comment on above: Performed By: #### C BC #### [address] Hemoglobin (Bld) [Mass/Vol] 8.8 g/dL Low 11.8-15.4 [facility] Comment on above: Performed By: #### C BC #### [address] Lymphocytes (Bld) [#/Vol] 2.0 10*3/uL Normal 1.00-4.8 [facility] Comment on above: Performed By: #### C BC #### [address] Lymphocytes/100 WBC (Bld) 16.7 % Normal . [facility] Comment on above: Performed By: #### C BC #### [address] MCH (RBC) [Entitic mass] 29.3 pg Normal 24.7-34.3 [facility] Comment on above: Performed By: #### C BC #### [address] MCV (RBC) [Entitic vol] 91.8 fL Normal 80-100 [facility] Comment on above: Performed By: #### C BC #### [address] Mean Corpuscular HGB Conc 32.0 g/dL Normal 32.0-35.0 [facility] Comment on above: Performed By: #### C BC #### [place] [address] [place] Monocytes (Bld) [#/Vol] 0.8 10*3/uL Normal 0.0-0.8 [facility] Comment on above: Performed By: #### C BC #### [address] Monocytes/100 WBC (Bld) 7.1 % Normal . [facility] Comment on above: Performed By: #### C BC #### [address] Neutrophils (Bld) [#/Vol] 8.6 10*3/uL High 1.8-7.7 [facility] Comment on above: Performed By: #### C BC #### [address] Neutrophils/100 WBC (Bld) 73.8 % Normal . [facility] Comment on above: Performed By: #### C BC #### [address] NRBC% 0.0 /100{WBC} Normal 0-0.5 [facility] Comment on above: Performed By: #### C BC #### [address] Platelet mean volume (Bld) [Entitic vol] 8.2 fL Normal 6.3-10.7 [facility] Comment on above: Performed By: #### C BC #### [address] Platelets (Bld) [#/Vol] 145 10*3/uL Low 150-450 [facility] Comment on above: Performed By: #### C BC #### [address] RBC (Bld) [#/Vol] 2.98 10*6/uL Low 3.60-5.00 [facility] Comment on above: Performed By: #### C BC #### [address] WBC (Bld) [#/Vol] 11.7 10*3/uL High 3.8-11.6 [facility] Comment on above: Performed By: #### C BC #### [address] Comprehensive Metabolic Pane tamika 08-02-2022 Albumin [Mass/Vol] 3.0 g/dL Low 3.5-5.7 [facility] Comment on above: Performed By: #### C MP #### [address] Albumin/Globulin [Mass ratio] 0.7 {ratio} Normal [facility] Comment on above: Performed By: #### C MP #### [address] ALP [Catalytic activity/Vol] 101 U/L Normal 34-104 [facility] Comment on above: Performed By: #### C MP #### [address] [place] [address] [place] ALT [Catalytic activity/Vol] 18 U/L Normal 7-52 [facility] Comment on above: Performed By: #### C MP #### [address] Anion gap [Moles/Vol] 14.2 mmol/L Normal 6.0-15.0 [facility] Comment on above: Performed By: #### C MP #### [address] AST [Catalytic activity/Vol] 19 U/L Normal 13-39 [facility] Comment on above: Performed By: #### C MP #### [address] Bilirubin [Mass/Vol] 0.5 mg/dL Normal 0.3-1.0 [facility] Comment on above: Performed By: #### C MP #### [address] Calcium [Mass/Vol] 7.6 mg/dL Low 8.6-10.3 [facility] Comment on above: Performed By: #### C MP #### [address] Chloride [Moles/Vol] 98 mmol/L Normal 98-107 [facility] Comment on above: Performed By: #### C MP #### [address] CO2 [Moles/Vol] 25.4 mmol/L Normal 21.0-31.0 [facility] Comment on above: Performed By: #### C MP #### [address] Creatinine [Mass/Vol] 6.16 mg/dL Significan t change up 0.60-1.20 [facility] Comment on above: Performed By: #### C MP #### [address] Creatinine Clr Calc Pharmacy 9.83 Normal [facility] Comment on above: Result Comment: PERF ORMED BY: [place] [address] PATHOLOGIST HOUSEKEEPER/LAUNDRY ASSISTANT DANII HAYNES M.D. Performed By: #### C MP #### [address] GFR/1.73 sq M.predicted MDRD (S/P/Bld) [Vol rate/Area] 6.755 mL/min/{1.73_m2} [facility] Comment on above: Performed By: #### C MP #### [address] Globulin (S) [Mass/Vol] 4.5 g/dL [facility] Comment on above: Performed By: #### C MP #### [address] Glucose [Mass/Vol] 165 mg/dL High 70-100 [facility] Comment on above: Result Comment: [facility] Glucose Reference Range is dependent on time and content of last meal. Glucose of more than 200 mg/dL in a nonstressed, ambulatory subject supports the diagnosis of Diabetes Mellitus. ADA recommended reference range Performed By: #### C MP #### [address] Potassium [Moles/Vol] 4.6 mmol/L Normal 3.5-5.1 [facility] Comment on above: Performed By: #### C MP #### [address] Protein [Mass/Vol] 7.5 g/dL Normal 6.4-8.9 [facility] Comment on above: Performed By: #### C MP #### [place] [address] [place] Sodium [Moles/Vol] 133 mmol/L Low 136-145 [facility] Comment on above: Performed By: #### C MP #### [address] Urea nitrogen [Mass/Vol] 47 mg/dL High 7-25 [facility] Comment on above: Performed By: #### C MP #### [address] Glucose Poct Glucometerson 0 - Glucose [Mass/Vol] 180 mg/dL Normal [facility] Comment on above: Result Comment: [place] Glucose Reference Range is dependent on time and content of last meal. Glucose of more than 200 mg/dL in a nonstressed, ambulatory subject supports the diagnosis of Diabetes Mellitus. PERFORMED BY: [place] [address] PATHOLOGIST HOUSEKEEPER/LAUNDRY ASSISTANT DANII HAYNES M.D. Performed By: #### G LULS #### Point of Care testing , Glucose [Mass/Vol] 166 mg/dL Normal [facility] Comment on above: Result Comment: [place] Glucose Reference Range is dependent on time and content of last meal. Glucose of more than 200 mg/dL in a nonstressed, ambulatory subject supports the diagnosis of Diabetes Mellitus. PERFORMED BY: [place] [address] PATHOLOGIST HOUSEKEEPER/LAUNDRY ASSISTANT DANII HAYNES M.D. Performed By: #### B CESAR, CBC #### [address] Glucose [Mass/Vol] 118 mg/dL Normal [facility] Comment on above: Result Comment: [place] Glucose Reference Range is dependent on time and content of last meal. Glucose of more than 200 mg/dL in a nonstressed, ambulatory subject supports the diagnosis of Diabetes Mellitus. PERFORMED BY: [place] [address] PATHOLOGIST HOUSEKEEPER/LAUNDRY ASSISTANT DANII HAYNES M.D. Performed By: #### G LULS #### Point of Care testing , Basic Metabolic Panelon 04-0 Anion gap [Moles/Vol] 16.7 mmol/L High 6.0-15.0 [facility] Comment on above: Performed By: #### B MP, CBC #### [address] Calcium [Mass/Vol] 8.2 mg/dL Low 8.6-10.3 [facility] Comment on above: Performed By: #### B MP, CBC #### [address] Chloride [Moles/Vol] 99 mmol/L Normal 98-107 [facility] Comment on above: Performed By: #### B MP, CBC #### [facility] [address] CO2 [Moles/Vol] 22.6 mmol/L Normal 21.0-31.0 [facility] Comment on above: Performed By: #### B MP, CBC #### [address] Creatinine [Mass/Vol] 4.98 mg/dL Significan t change up 0.60-1.20 [facility] Comment on above: Performed By: #### B MP, CBC #### [address] Creatinine Clr Calc Pharmacy 11.87 Normal [facility] Comment on above: Result Comment: PERF ORMED BY: [place] [address] PATHOLOGIST HOUSEKEEPER/LAUNDRY ASSISTANT DANII HAYNES M.D. Performed By: #### B MP, CBC #### [address] GFR/1.73 sq M.predicted MDRD (S/P/Bld) [Vol rate/Area] 8.719 mL/min/{1.73_m2} Normal [facility] Comment on above: Performed By: #### B MP, CBC #### [place] [address] [place] Glucose [Mass/Vol] 129 mg/dL High 70-100 [facility] Comment on above: Result Comment: [place] Glucose Reference Range is dependent on time and content of last meal. Glucose of more than 200 mg/dL in a nonstressed, ambulatory subject supports the diagnosis of Diabetes Mellitus. ADA recommended reference range Performed By: #### B MP, CBC #### [facility] [address] Potassium [Moles/Vol] 4.3 mmol/L Normal 3.5-5.1 [facility] Comment on above: Performed By: #### B MP, CBC #### [facility] [address] [place] [address] Sodium [Moles/Vol] 134 mmol/L Low 136-145 [facility] Comment on above: Performed By: #### B MP, CBC #### [facility] [address] [place] [address] Urea nitrogen [Mass/Vol] 37 mg/dL High 7-25 [facility] Comment on above: Performed By: #### B MP, CBC #### [address] Blood Cultureon 08-01-2022 Bacteria identified Cx Nom (Bld) Gram stain results called at 1517 on 08/02/22 Gram Stain Gram Positive Cocci in Clusters ORGANISM: Staphylococcus epidermidis (O:STAEPI) Organism Comments For MARIANNE Refer to Final Report of Blood Culture Collected Date 08/01/22 PERFORMED BY: [place] [address] PATHOLOGIST HOUSEKEEPER/LAUNDRY ASSISTANT DANII HAYNES M.D. [facility] Comment on above: Performed By: #### G LULS #### Point of Care testing , Bacteria [...] <0.25 Penicillin S 0.06 Tetracycline S <4 Trimethoprim/Sulfamethoxaz ole S <0.5 Vancomycin S 2 BioFire BCID [...] in Positive blood culture Not detected Merle glabrata DNA [Presence] by AURA with non-probe [...] culture Not detected Group A (Streptococcus pyogenes) [id number] Not detected Group B Strep (Streptococcus agalactiae) [...] indicate anti (more content not included)... Normal [facility] Comment on above: Performed By: #### G LULS #### Point of Care testing , Complete Blood Count Auto Di ffon 08-01-2022 Basophils (Bld) [#/Vol] 0.1 10*3/uL Normal 0.0-0.2 [facility] Comment on above: Result Comment: PERF ORMED BY: [place] [address] PATHOLOGIST HOUSEKEEPER/LAUNDRY ASSISTANT DANII HAYNES M.D. Performed By: #### B MP, CBC #### [address] Basophils/100 WBC (Bld) 0.3 % Normal . [facility] Comment on above: Performed By: #### B MP, CBC #### [facility] [address] [place] [address] [place] Eosinophils (Bld) [#/Vol] 0.2 10*3/uL Normal 0.0-0.45 [facility] Comment on above: Performed By: #### B MP, CBC #### [facility] [address] Eosinophils/100 WBC (Bld) 1.1 % Normal . [facility] Comment on above: Performed By: #### B MP, CBC #### [facility] [address] Erythrocyte distribution width (RBC) [Ratio] 15.2 % Normal 11.9-15.3 [facility] Comment on above: Performed By: #### B MP, CBC #### [facility] [address] Hematocrit (Bld) [Volume fraction] 28.8 % Low 34.0-46.4 [facility] Comment on above: Performed By: #### B MP, CBC #### [facility] [address] [place] [address] [place] Hemoglobin (Bld) [Mass/Vol] 9.1 g/dL Low 11.8-15.4 [facility] Comment on above: Performed By: #### B MP, CBC #### [facility] [address] [place] [address] [place] Lymphocytes (Bld) [#/Vol] 2.0 10*3/uL Normal 1.00-4.8 [facility] Comment on above: Performed By: #### B MP, CBC #### [facility] [address] [place] [address] [place] Lymphocytes/100 WBC (Bld) 12.7 % Normal . [facility] Comment on above: Performed By: #### B MP, CBC #### [facility] [address] MCH (RBC) [Entitic mass] 29.1 pg Normal 24.7-34.3 [facility] Comment on above: Performed By: #### B MP, CBC #### [facility] [address] MCV (RBC) [Entitic vol] 92.0 fL Normal 80-100 [facility] Comment on above: Performed By: #### B MP, CBC #### [facility] [address] Mean Corpuscular HGB Conc 31.6 g/dL Low 32.0-35.0 [facility] Comment on above: Performed By: #### B MP, CBC #### [facility] [address] Monocytes (Bld) [#/Vol] 1.5 10*3/uL High 0.0-0.8 [facility] Comment on above: Performed By: #### B MP, CBC #### [facility] [address] Monocytes/100 WBC (Bld) 9.3 % Normal . [facility] Comment on above: Performed By: #### B MP, CBC #### [facility] [address] [place] [address] [place] Neutrophils (Bld) [#/Vol] 11.9 10*3/uL High 1.8-7.7 [facility] Comment on above: Performed By: #### B MP, CBC #### [facility] [address] Neutrophils/100 WBC (Bld) 76.6 % Normal . [facility] Comment on above: Performed By: #### B MP, CBC #### [facility] [address] NRBC% 0.0 /100{WBC} Normal 0-0.5 [facility] Comment on above: Performed By: #### B MP, CBC #### [facility] [address] Platelet mean volume (Bld) [Entitic vol] 8.6 fL Normal 6.3-10.7 [facility] Comment on above: Performed By: #### B MP, CBC #### [facility] [address] [place] [id number] [facility] Platelets (Bld) [#/Vol] 123 10*3/uL Significant change down 150-450 [facility] Comment on above: Performed By: #### B MP, CBC #### [facility] [address] RBC (Bld) [#/Vol] 3.13 10*6/uL Low 3.60-5.00 [facility] Comment on above: Performed By: #### B MP, CBC #### [facility] [address] [place] [address] [facility] WBC (Bld) [#/Vol] 15.6 10*3/uL High 3.8-11.6 [facility] Comment on above: Performed By: #### B MP, CBC #### [facility] [address] ECG 12 lead ECGon 08-01-2022 ECG 12 lead ECG [facility] Main [place] [address] [place] [address] Electrocardiograph Report Signed Patient: Amparo Castorena MR#: [id number] 68 : 1950 Acct:[id number] Age/Sex: 71 / F ADM Date: 08/02/22 Loc: Room: [address] [place] [address] Type: ADM IN Attending Dr: Yash Ortega [...] When compared with ECG of 31-JUL-2022 15:08, [place] interval has increased Confirmed by GERTRUDE STRICKLAND [facility] ([id number][facility] on 08/03/2022 10:28:47 AM Referred By: Electronically Signed By:SCAR LOREDO MD [facility] Transcribed By: MUS Signed By Juan Loredo MD 08/03/22 1028 [facility] echo transthoracicon PENDING SALE TO [facility] echo transthoracic [facility] Main [place] [address] [place] [address] Echocardiogram Signed Patient: Amparo Castorena MR#: [id number] 68 : 1950 Acct:[id number] Age/Sex: 71 / F ADM Date: 07/31/22 Loc: Room: [address] [place] [address] Type: ADM IN Attending Dr: Yash Ortega MD Ordering Provider: Yash Ortega MD Date of Service: 08/01/2212/17/951 PENDING SALE TO [facility]/PENDING SALE TO [facility] echo transthoracic: chest pain Copies to: MD Yash Arndt MD BSA: 2.1 m2 BP: 138/76 mmHg HR: 80 Reason For Study: chest pain History: CKD, CVA, DM, HTN, HLD, FL, PVD, stents Interpretation Summary Ejection Fraction = [...] By: Danii Rodriguez MD 08/01/22 1334 Normal [facility] Glucose Poct Glucometerson 0 08-01-2022 Glucose [Mass/Vol] 159 mg/dL Normal [facility] Comment on above: Result Comment: [facility] Glucose Reference Range is dependent on time and content of last meal. Glucose of more than 200 mg/dL in a nonstressed, ambulatory subject supports the diagnosis of Diabetes Mellitus. PERFORMED BY: [place] [address] PATHOLOGIST HOUSEKEEPER/LAUNDRY ASSISTANT DANII HAYNES M.D. Performed By: #### C MP #### [facility] [address] [place] [address] Glucose [Mass/Vol] 114 mg/dL Normal [facility] Comment on above: Result Comment: [facility] Glucose Reference Range is dependent on time and content of last meal. Glucose of more than 200 mg/dL in a nonstressed, ambulatory subject supports the diagnosis of Diabetes Mellitus. PERFORMED BY: [place] [address] PATHOLOGIST HOUSEKEEPER/LAUNDRY ASSISTANT DANII HAYNES M.D. Performed By: #### B MP, CBC #### [facility] [address] [place], [place] [id number] [facility] Glucose [Mass/Vol] 170 mg/dL Normal [facility] Comment on above: Result Comment: [place] Glucose Reference Range is dependent on time and content of last meal. Glucose of more than 200 mg/dL in a nonstressed, ambulatory subject supports the diagnosis of Diabetes Mellitus. PERFORMED BY: [place] [address] PATHOLOGIST HOUSEKEEPER/LAUNDRY ASSISTANT DANII HAYNES M.D. Performed By: #### C MP #### [address] Glucose [Mass/Vol] 152 mg/dL Normal [facility] Comment on above: Result Comment: [place] Glucose Reference Range is dependent on time and content of last meal. Glucose of more than 200 mg/dL in a nonstressed, ambulatory subject supports the diagnosis of Diabetes Mellitus. PERFORMED BY: [place] [address] PATHOLOGIST HOUSEKEEPER/LAUNDRY ASSISTANT DANII HAYNES M.D. Performed By: #### G LULS #### Point of Care testing , Glucose [Mass/Vol] 123 mg/dL Normal [facility] Comment on above: Result Comment: [place] Glucose Reference Range is dependent on time and content of last meal. Glucose of more than 200 mg/dL in a nonstressed, ambulatory subject supports the diagnosis of Diabetes Mellitus. PERFORMED BY: [place] [address] PATHOLOGIST HOUSEKEEPER/LAUNDRY ASSISTANT DANII HAYNES M.D. Performed By: #### G LULS #### Point of Care testing , Lipid Panelon 08-01-2022 Cholesterol [Mass/Vol] 105 mg/dL Low 140-200 [facility] Comment on above: Result Comment: Chol less than 200 mg/dl low risk Chol 201-239 mg/dl borderline risk Chol 240 mg/dl and greater high risk Performed By: #### G LULS #### Point of Care testing , Cholesterol in HDL [Mass/Vol] 32 mg/dL Low 35-85 [facility] Comment on above: Result Comment: HDL CHOL ATP-III CLASSIFICATION Cardiovascular Risk HDL > or equal to 60 mg/dL LOW HDL < 40 mg/dL HIGH Performed By: #### G LULS #### Point of Care testing , Cholesterol.total/Chol esterol in HDL [Mass ratio] 3.3 {ratio} Normal <5.0 [facility] Comment on above: Result Comment: PERF ORMED BY: [facility] [address] [place] [address] PATHOLOGIST HOUSEKEEPER/LAUNDRY ASSISTANT DANII HAYNES M.D. Performed By: #### G LULS #### Point of Care testing , LDL Cholesterol,Calculated 45 mg/dL Normal 0-100 [facility] Comment on above: Result Comment: LDL ATP III CLASSIFICATION LDL less than 100 mg/dL Optimal LDL 100-129 mg/dL Near or above optimal LDL 130-159 mg/dL Borderline high LDL 160-189 mg/dL High LDL greater than 189 mg/dL Very high Performed By: #### G LULS #### Point of Care testing , Triglyceride w/Reflex 140 mg/dL Normal 0-149 [facility] Comment on above: Result Comment: TRIG ATP III CLASSIFICATION TRIG less than 150 mg/dL Normal TRIG 150-199 mg/dL Borderline high TRIG 200-500 mg/dL High TRIG greater than 500 mg/dL Very high Standard traceable to the Center for Disease Conrtrol and Prevention (CDC) test method. Performed By: #### G LULS #### Point of Care testing , VLDL CHOLESTEROL 28 mg/dL Normal [facility] Comment on above: Performed By: #### G LULS #### Point of Care testing , Troponin I High Sensitivityo n 08-01-2022 Troponin I High Sensitivity 11.3 pg/mL Normal 0.0-15.0 [facility] Comment on above: Result Comment: PERF ORMED BY: [facility] [address] [address] PATHOLOGIST HOUSEKEEPER/LAUNDRY ASSISTANT DANII HAYNES M.D. Performed By: #### G LULS #### Point of Care testing , Activated partial thrombopla stin time (aPTT) in platelet poor plasma by coagulation aOrdered By: Malcolm Moss on 07-31-2022 aPTT Coag (PPP) [Time] 28.0 s 25.1-36.5 [facility] Alanine aminotransferase [En zymatic activity/volume] in Serum or PlasmaOrdered By: Malcolm Moss on 07-31-2022 ALT [Catalytic activity/Vol] 24 U/L Normal 7-52 [facility] Comment on above: Performed By: #### G CAPRICE #### Point of Care testing , Albumin [Mass/volume] in Ser um or Plasma by Bromocresol green (BCG) dye binding methoOrdered By: Malcolm Moss on 07-31-2022 Albumin BCG dye [Mass/Vol] 3.6 g/dL 3.5-5.7 [facility] Alkaline phosphatase [Enzyma tic activity/volume] in Serum or PlasmaOrdered By: Malcolm Moss on 07-31-2022 ALP [Catalytic activity/Vol] 124 U/L High 34-104 [facility] Comment on above: Performed By: #### G LULS #### Point of Care testing , Aspartate aminotransferase [ Enzymatic activity/volume] in Serum or PlasmaOrdered By: Malcolm Moss on 07-31-2022 AST [Catalytic activity/Vol] 22 U/L Normal 13-39 [facility] Comment on above: Performed By: #### G CAPRICE #### Point of Care testing , Automated erythrocytes count in urine sediment (number/area)Ordered By: Malcolm Moss on 07-31-2022 RBC Auto (Urine sed) [#/Area] 50-100 [HPF] 0-4 [facility] Automated leukocytes count i n urine sediment (number/area)Ordered By: Malcolm Moss on 07-31-2022 WBC Auto (Urine sed) [#/Area] Innumerable [HPF] 0-4 [facility] Automated urine hyaline cast s count (number/volume)Ordered By: Malcolm Moss on 07-31-2022 Hyaline casts Auto (U) [#/Vol] 5-9 [LPF] 0-1 [facility] B-Type Natriuretic Peptideon 07-31-2022 Natriuretic peptide B (Bld) [Mass/Vol] 57.0 pg/mL Normal 5-100 [facility] Comment on above: Result Comment: PERF ORMED BY: [facility] [place] [address] PATHOLOGIST HOUSEKEEPER/LAUNDRY ASSISTANT DANII HAYNES M.D. Performed By: #### G LULS #### Point of Care testing , Basic Metabolic Panelon Creatinine Clr Calc Pharmacy 14.63 Normal [facility] Comment on above: Performed By: #### G LULS #### Point of Care testing , GFR/1.73 sq M.predicted MDRD (S/P/Bld) [Vol rate/Area] 10.913 mL/min/{1.73_m2} Normal [facility] Comment on above: Performed By: #### G LULS #### Point of Care testing , Basophils Auto (Bld) [#/Vol] Ordered By: Malcolm Moss on 07-31-2022 Basophils (Bld) [#/Vol] 0.1 10*3/uL 0.0-0.2 [facility] Basophils/100 WBC Auto (Bld) Ordered By: Malcolm Moss on 07-31-2022 Basophils/100 WBC (Bld) 0.4 % . [facility] Bilirubin Auto test strip Ql (U)Ordered By: Malcolm Moss on 07-31-2022 Bilirubin Ql (U) Negative Negative [facility] Bilirubin.direct [Mass/volum e] in Serum or PlasmaOrdered By: Malcolm Moss on 07-31-2022 Bilirubin.direct [Mass/Vol] 0.10 mg/dL 0.03-0.18 [facility] Bilirubin.total [Mass/volume ] in Serum or PlasmaOrdered By: Malcolm Moss on 07-31-2022 Bilirubin [Mass/Vol] 0.6 mg/dL Normal 0.3-1.0 [facility] Comment on above: Performed By: #### G LULS #### Point of Care testing , CBC AUTO DIFFon 07-31-2022 BASO # 0.1 103/ul Normal 0.0-0.1 [facility] Comment on above: Performed By: #### U SUNITA, MG, RENAL #### [facility] [address] [place] [address] [address] Silver Harrison Basophils/100 WBC (Bld) 0.6 % Normal 0.2-2.0 [facility] Comment on above: Performed By: #### U SUNITA, MG, RENAL #### [facility] [address] [place] [address] Dr. Silver Harrison EO # 0.3 103/ul Normal 0.0-0.7 [facility] Comment on above: Performed By: #### U SUNITA, MG, RENAL #### [facility] [address] [place] [address] Dr. Silver Harrison Eosinophils/100 WBC (Bld) 2.4 % Normal 0.9-7.0 [facility] Comment on above: Performed By: #### U SUNITA, MG, RENAL #### [facility] [address] [place] [address] Dr. Silver Harrison Erythrocyte distribution width (RBC) [Ratio] 14.1 % Normal 11.0-15.0 [facility] Comment on above: Performed By: #### U SUNITA, MG, RENAL #### [facility] [address] [place] [address] Dr. Silver Harrison Hematocrit (Bld) [Volume fraction] 33.7 % Critically low 36.0-48.0 [facility] Comment on above: Performed By: #### U SUNITA, MG, RENAL #### [facility] [address] [place] [address] Dr. Silver Harrison Hemoglobin (Bld) [Mass/Vol] 10.1 g/dL Critically low 12.0-16.0 [facility] Comment on above: Performed By: #### U SUNITA, MG, RENAL #### [facility] [address] [place] [address] Dr. Silver Harrison IG # 0.07 10e3/ul Critically high 0.00-0.03 [facility] Comment on above: Performed By: #### U SUNITA, MG, RENAL #### [facility] [address] [place] [address] Dr. Silver Harrison IG % 0.6 % Critically high 0.0-0.5 [facility] Comment on above: Performed By: #### U SUNITA, MG, RENAL #### [facility] [address] [place] [address] [address] Silver Harrison LYMPH # 2.4 103/ul Normal 1.2-3.8 [facility] Comment on above: Performed By: #### U SUNITA, MG, RENAL #### [facility] [address] [place] [address] Dr. Silver Harrison Lymphocytes/100 WBC (Bld) 21.6 % Normal 20.5-60.0 [facility] Comment on above: Performed By: #### U SUNITA, MG, RENAL #### [facility] [address] [place] [address] Dr. Silver Harrison MANUAL DIFF REQ NO Normal [facility] Comment on above: Performed By: #### U SUNITA, MG, RENAL #### [facility] [address] [place] [address] Dr. Silver Harrison MCH (RBC) [Entitic mass] 28.6 pg Normal 26.7-34.0 [facility] Comment on above: Performed By: #### U SUNITA, MG, RENAL #### [facility] [address] [place] [address] Dr. Silver Harrison MCHC (RBC) [Mass/Vol] 30.0 g/dL Normal 29.9-35.2 [facility] Comment on above: Performed By: #### U SUNITA, MG, RENAL #### [facility] [address] [place] [address] Dr. Silver Harrison MCV (RBC) [Entitic vol] 95.5 fL Normal 81.0-99.0 [facility] Comment on above: Performed By: #### U SUNITA, MG, RENAL #### [facility] [address] [place] [address] Dr. Silver Harrison MONO # 0.8 103/ul Normal 0.3-0.8 [facility] Comment on above: Performed By: #### U SUNITA, MG, RENAL #### [facility] [address] [place] [address] Dr. Silver Harrison Monocytes/100 WBC (Bld) 7.1 % Normal 1.7-12.0 [facility] Comment on above: Performed By: #### U SUNITA, MG, RENAL #### [facility] [address] [place] [address] Dr. Silver Harrison NEUT # 7.4 103/ul Critically high 1.4-6.5 [facility] Comment on above: Performed By: #### U SUNITA, MG, RENAL #### [facility] [address] [place] [address] Dr. Silver Harrison Neutrophils/100 WBC (Bld) 67.7 % Normal 43.0-75.0 [facility] Comment on above: Performed By: #### U SUNITA, MG, RENAL #### [facility] [address] [place] [address] Dr. Silver Harrison Platelet mean volume (Bld) [Entitic vol] 10.2 fL Normal 9.5-13.5 [facility] Comment on above: Performed By: #### U SUNITA, MG, RENAL #### [facility] [address] [place] [address] Dr. Silver Harrison PLT 130 103/ul Critically low 150-450 [facility] Comment on above: Performed By: #### U SUNITA, MG, RENAL #### [facility] [address] [place] [address] Dr. Silver Harrison RBC 3.53 106/ul Critically low 4.20-5.40 [facility] Comment on above: Performed By: #### U SUNITA, MG, RENAL #### [facility] [address] [place] [address] Dr. Silver Harrison WBC 10.9 103/ul Normal 4.0-11.0 [facility] Comment on above: Performed By: #### U SUNITA, MG, RENAL #### [facility] [address] [place] [address] Dr. Silver Harrison Calcium [Mass/volume] in Ser um or PlasmaOrdered By: Malcolm Moss on 07-31-2022 Calcium [Mass/Vol] 8.3 mg/dL Low 8.6-10.3 [facility] Comment on above: Performed By: #### G LULS #### Point of Care testing , Carbon dioxide, total [Moles /volume] in Serum or PlasmaOrdered By: Malcolm Moss on 07-31-2022 CO2 [Moles/Vol] 24.3 mmol/L Normal 21.0-31.0 [facility] Comment on above: Performed By: #### G LULS #### Point of Care testing , Casts typing in urine sedime nt by light microscopyOrdered By: Malcolm Moss on 07-31-2022 Casts LM Nom (Urine sed) N/A [facility] Chloride [Moles/volume] in S alida or PlasmaOrdered By: Malcolm Moss on 07-31-2022 Chloride [Moles/Vol] 98 mmol/L Normal 98-107 [facility] Comment on above: Performed By: #### G LULS #### Point of Care testing , Complete Blood Count Auto Di ffon 07-31-2022 Basophils (Bld) [#/Vol] 0.1 10*3/uL Normal 0.0-0.2 [facility] Comment on above: Result Comment: PERF ORMED BY: [facility] [address] [place] [address] PATHOLOGIST HOUSEKEEPER/LAUNDRY ASSISTANT DANII HAYNES M.D. Performed By: #### G MARLOLS #### Point of Care testing , Basophils/100 WBC (Bld) 0.4 % Normal . [facility] Comment on above: Performed By: #### G LULS #### Point of Care testing , Eosinophils (Bld) [#/Vol] 0.1 10*3/uL Normal 0.0-0.45 [facility] Comment on above: Performed By: #### G LULS #### Point of Care testing , Eosinophils/100 WBC (Bld) 0.5 % Normal . [facility] Comment on above: Performed By: #### G LULS #### Point of Care testing , Erythrocyte distribution width (RBC) [Ratio] 15.0 % Normal 11.9-15.3 [facility] Comment on above: Performed By: #### G LULS #### Point of Care testing , Hematocrit (Bld) [Volume fraction] 31.6 % Low 34.0-46.4 [facility] Comment on above: Performed By: #### G MARLOLS #### Point of Care testing , Hemoglobin (Bld) [Mass/Vol] 9.9 g/dL Low 11.8-15.4 [facility] Comment on above: Performed By: #### G LULS #### Point of Care testing , Lymphocytes (Bld) [#/Vol] 1.3 10*3/uL Normal 1.00-4.8 [facility] Comment on above: Performed By: #### G LULS #### Point of Care testing , Lymphocytes/100 WBC (Bld) 4.8 % Normal . [facility] Comment on above: Performed By: #### G LULS #### Point of Care testing , MCH (RBC) [Entitic mass] 28.8 pg Normal 24.7-34.3 [facility] Comment on above: Performed By: #### G MARLOLS #### Point of Care testing , MCV (RBC) [Entitic vol] 91.7 fL Normal 80-100 [facility] Comment on above: Performed By: #### G LULS #### Point of Care testing , Mean Corpuscular HGB Conc 31.4 g/dL Low 32.0-35.0 [facility] Comment on above: Performed By: #### G LULS #### Point of Care testing , Monocytes (Bld) [#/Vol] 1.4 10*3/uL High 0.0-0.8 [facility] Comment on above: Performed By: #### G LULS #### Point of Care testing , Monocytes/100 WBC (Bld) 20.48 % High 0.00-20.00 [facility] Comment on above: Result Comment: For adults in ED, MDW > 20.0 may be associated with a higher risk of sepsis during the first 12 hrs of hospital admission Performed By: #### G LULS #### Point of Care testing , Monocytes/100 WBC (Bld) 5.1 % Normal . [facility] Comment on above: Performed By: #### G LULS #### Point of Care testing , Neutrophils (Bld) [#/Vol] 24.2 10*3/uL High 1.8-7.7 [facility] Comment on above: Performed By: #### G CAPRICE #### Point of Care testing , Neutrophils/100 WBC (Bld) 89.2 % Normal . [facility] Comment on above: Performed By: #### Ayo SELLERSLS #### Point of Care testing , NRBC% 0.1 /100{WBC} Normal 0-0.5 [facility] Comment on above: Performed By: #### Ayo VASQUES #### Point of Care testing , Platelet mean volume (Bld) [Entitic vol] 8.4 fL Normal 6.3-10.7 [facility] Comment on above: Performed By: #### Ayo VASQUES #### Point of Care testing , Platelets (Bld) [#/Vol] 155 10*3/uL Normal 150-450 [facility] Comment on above: Performed By: #### Ayo VASQUES #### Point of Care testing , RBC (Bld) [#/Vol] 3.45 10*6/uL Low 3.60-5.00 [facility] Comment on above: Performed By: #### Ayo VASQUES #### Point of Care testing , WBC (Bld) [#/Vol] 27.0 10*3/uL High 3.8-11.6 [facility] Comment on above: Performed By: #### Ayo VASQUES #### Point of Care testing , Creatine Kinaseon 07-31-2022 Creatine Kinase Normal 30-223 [facility] Comment on above: Result Comment: Spec imen hemolyzed, redraw requested Performed By: #### Ayo VASQUES #### Point of Care testing , Creatine kinase [Enzymatic a ctivity/volume] in Serum or PlasmaOrdered By: Malcolm Moss on 07-31-2022 CK [Catalytic activity/Vol] 70 U/L 30-223 [facility] Creatinine [Mass/volume] in Serum or PlasmaOrdered By: Malcolm Moss on 07-31-2022 Creatinine [Mass/Vol] 4.13 mg/dL High 0.60-1.20 [facility] Comment on above: Performed By: #### G LULS #### Point of Care testing , Dipstick and Microscopicon 0 07-31-2022 Bacteria,Urine 3+ High None Seen [facility] Comment on above: Order Comment: Name Collection Type:: Straight Catheter Performed By: #### G LULS #### Point of Care testing , Bilirubin,Urine Negative Normal Negative [facility] Comment on above: Order Comment: Name Collection Type:: Straight Catheter Performed By: #### G LULS #### Point of Care testing , Glucose Ql (U) Normal Normal Normal [facility] Comment on above: Order Comment: Name Collection Type:: Straight Catheter Performed By: #### G LULS #### Point of Care testing , Hyaline Casts,Urine 5-9 High 0-1 [facility] Comment on above: Order Comment: Name Collection Type:: Straight Catheter Result Comment: PERF ORMED BY: [address] [place] [address] PATHOLOGIST HOUSEKEEPER/LAUNDRY ASSISTANT DANII HAYNES M.D. Performed By: #### G LULS #### Point of Care testing , Ketones Ql (U) Negative Normal Negative [facility] Comment on above: Order Comment: Name Collection Type:: Straight Catheter Performed By: #### G LULS #### Point of Care testing , Leukocyte esterase Test strip Ql (U) 4+ High Negative [facility] Comment on above: Order Comment: Name Collection Type:: Straight Catheter Performed By: #### G LULS #### Point of Care testing , Nitrite,Urine Negative Normal Negative [facility] Comment on above: Order Comment: Name Collection Type:: Straight Catheter Performed By: #### G LULS #### Point of Care testing , Occult Blood,Urine 3+ High Negative [facility] Comment on above: Order Comment: Name Collection Type:: Straight Catheter Result Comment: PERF ORMED BY: [address] [place] [id number] PATHOLOGIST HOUSEKEEPER/LAUNDRY ASSISTANT DANII HAYNES M.D. Performed By: #### G LULS #### Point of Care testing , Protein,Urine >=300 High Negative [facility] Comment on above: Order Comment: Name Collection Type:: Straight Catheter Performed By: #### G LULS #### Point of Care testing , RBC,Urine 50-100 High 0-4 [facility] Comment on above: Order Comment: Name Collection Type:: Straight Catheter Performed By: #### G LULS #### Point of Care testing , Specificy [place],Urine 1.020 Normal 1.001-1.03 0 [facility] Comment on above: Order Comment: Name Collection Type:: Straight Catheter Performed By: #### G LULS #### Point of Care testing , Squamous Epithelial Cell,Urine 10-19 High 0-2 [facility] Comment on above: Order Comment: Name Collection Type:: Straight Catheter Performed By: #### G LULS #### Point of Care testing , Urobilinogen,Urine Normal Normal Normal [facility] Comment on above: Order Comment: Name Collection Type:: Straight Catheter Performed By: #### G LULS #### Point of Care testing , WBC,Urine Innumerable High 0-4 [facility] Comment on above: Order Comment: Name Collection Type:: Straight Catheter Performed By: #### G LULS #### Point of Care testing , ECG 12 lead ECGon 07-31-2022 ECG 12 lead ECG [place] [address] Electrocardiograph Report Signed Patient: Amparo Castorena MR#: [id number] 68 : 1950 Acct:[id number] Age/Sex: 71 / F ADM Date: 07/31/22 Loc: ER Room: Type: [facility] ER Attending Dr: Ordering Provider: Malcolm Moss [...] Prolonged QT Confirmed by Piyush Bell DO ([id number]) on 07/31/2022 4:05:21 PM Referred By: Electronically Signed By:Piyush Bell DO Transcribed By: MUS Signed By Piyush Bell DO [id number] Normal [facility] Eosinophils Auto (Bld) [#/Vo l]Ordered By: Malcolm Moss on 07-31-2022 Eosinophils (Bld) [#/Vol] 0.1 10*3/uL 0.0-0.45 [facility] Eosinophils/100 WBC Auto (Bl d)Ordered By: Malcolm Moss on 07-31-2022 Eosinophils/100 WBC (Bld) 0.5 % . [facility] Erythrocyte distribution wid th Auto (RBC) [Ratio]Ordered By: Malcolm Moss on 07-31-2022 Erythrocyte distribution width (RBC) [Ratio] 15.0 % 11.9-15.3 [facility] Glucose [Mass/volume] in Ser um or PlasmaOrdered By: Malcolm Moss on 07-31-2022 Glucose [Mass/Vol] 183 mg/dL High 70-100 [facility] Comment on above: ADA recommended refe rence rangeRandom Glucose Reference Range is dependent on time and content of last meal. Glucose of more than 200 mg/dL in a nonstressed, ambulatory subject supports the diagnosis of Diabetes Mellitus. Result Comment: [place] om Glucose Reference Range is dependent on time and content of last meal. Glucose of more than 200 mg/dL in a nonstressed, ambulatory subject supports the diagnosis of Diabetes Mellitus. ADA recommended reference range Performed By: #### G LULS #### Point of Care testing , Hematocrit Auto (Bld) [Volum e fraction]Ordered By: Malcolm Moss on 07-31-2022 Hematocrit (Bld) [Volume fraction] 31.6 % 34.0-46.4 [facility] Hemoglobin [Mass/volume] in BloodOrdered By: Malcolm Moss on 07-31-2022 Hemoglobin (Bld) [Mass/Vol] 9.9 g/dL 11.8-15.4 [facility] Hepatic Panelon 07-31-2022 Albumin [Mass/Vol] 3.6 g/dL Normal 3.5-5.7 [facility] Comment on above: Performed By: #### G LULS #### Point of Care testing , Bilirubin,Indirect 0.5 mg/dL Normal [facility] Comment on above: Performed By: #### G LULS #### Point of Care testing , Bilirubin.indirect [Mass/Vol] 0.10 mg/dL Normal 0.03-0.18 [facility] Comment on above: Performed By: #### G LULS #### Point of Care testing , Ketones Auto test strip (U) [Mass/Vol]Ordered By: Malcolm Moss on 07-31-2022 Ketones (U) [Mass/Vol] Negative Negative [facility] - CoagulationOrde red By: Malcolm Moss on 07-31-2022 PT Coag (PPP) [Time] 12.3 s 9.0-12.9 [facility] Leukocytes [#/volume] correc mary jo for nucleated erythrocytes in Blood by Automated counOrdered By: Malcolm Moss on 07-31-2022 WBC corrected for nucl RBC Auto (Bld) [#/Vol] 27.0 10*3/uL 3.8-11.6 [facility] Lipase [Enzymatic activity/v olume] in Serum or PlasmaOrdered By: Malcolm Moss on 07-31-2022 Lipase [Catalytic activity/Vol] 36.0 U/L Normal 11.0-82.0 [facility] Comment on above: Result Comment: PERF ORMED BY: [facility] [address] [place] [address] PATHOLOGIST HOUSEKEEPER/LAUNDRY ASSISTANT DANII HAYNES M.D. Performed By: #### G LULS #### Point of Care testing , Lymphocytes Auto (Bld) [#/Vo l]Ordered By: Malcolm Moss on 07-31-2022 Lymphocytes (Bld) [#/Vol] 1.3 10*3/uL 1.00-4.8 [facility] Lymphocytes/100 WBC Auto (Bl d)Ordered By: Malcolm Moss on 07-31-2022 Lymphocytes/100 WBC (Bld) 4.8 % . [facility] MCH Auto (RBC) [Entitic mass ]Ordered By: Malcolm Moss on 07-31-2022 MCH (RBC) [Entitic mass] 28.8 pg 24.7-34.3 [facility] MCHC Auto (RBC) [Mass/Vol]Or dered By: Malcolm Moss on 07-31-2022 MCHC (RBC) [Mass/Vol] 31.4 g/dL 32.0-35.0 [facility] MCV Auto (RBC) [Entitic vol] Ordered By: Malcolm Moss on 07-31-2022 MCV (RBC) [Entitic vol] 91.7 fL 80-100 [facility] Monocyte distribution width [Entitic volume] in Blood by AutomatedOrdered By: Malcolm Moss on 07-31-2022 Monocyte distribution width Auto (Bld) [Entitic vol] 20.48 % 0.00-20.00 [facility] Comment on above: For adults in ED, MD W > 20.0 may be associated with a higher risk of sepsis during the first 12 hrs of hospital admission Monocytes Auto (Bld) [#/Vol] Ordered By: Malcolm Moss on 07-31-2022 Monocytes (Bld) [#/Vol] 1.4 10*3/uL 0.0-0.8 [facility] Monocytes/100 WBC Auto (Bld) Ordered By: Malcolm Moss on 07-31-2022 Monocytes/100 WBC (Bld) 5.1 % . [facility] Natriuretic peptide B [Mass/ Vol]Ordered By: Malcolm Moss on 07-31-2022 Natriuretic peptide B (Bld) [Mass/Vol] 57.0 pg/mL 5-100 [facility] Neutrophils Auto (Bld) [#/Vo l]Ordered By: Malcolm Moss on 07-31-2022 Neutrophils (Bld) [#/Vol] 24.2 10*3/uL 1.8-7.7 [facility] Neutrophils/100 WBC Auto (Bl d)Ordered By: Malcolm Moss on 07-31-2022 Neutrophils/100 WBC (Bld) 89.2 % . [facility] No Panel InformationOrdered By: Malcolm Moss on 07-31-2022 Estimated GFR (CKD-EPI) 10.913 mL/Min [facility] Creatinine Clearance (Chem 14.63 [facility] Nucleated erythrocytes [Pres ence] in Blood by Automated countOrdered By: Malcolm Moss on 07-31-2022 Nucleated RBC Auto Ql (Bld) 0.1 /100{WBC} 0-0.5 [facility] PHOSPHORUSon 07-31-2022 Phosphate [Mass/Vol] 5.3 mg/dL Critically high 2.6-4.7 [facility] Comment on above: Performed By: #### B MP #### [facility] [address] [place] [address] Dr. Silver Harrison PROF CHEM 8 (BAS METB)on Anion gap [Moles/Vol] 11.8 mmol/L Normal [facility] Comment on above: Performed By: #### B MP #### [facility] [address] [address] [address] Silver Harrison Calcium [Mass/Vol] 8.4 mg/dL Critically low 8.5-10.1 [facility] Comment on above: Performed By: #### B MP #### [facility] [address] [address] [address] Silver Harrison Chloride [Moles/Vol] 99 mmol/L Normal 98-107 [facility] Comment on above: Performed By: #### B MP #### [facility] [address] [address] [address] Silver Harrison CO2 [Moles/Vol] 27.9 mmol/L Normal 21.0-32.0 [facility] Comment on above: Performed By: #### B MP #### [facility] [address] [address] [address] Silver Harrison Creatinine [Mass/Vol] 4.81 mg/dL Critically high 0.55-1.02 [facility] Comment on above: Performed By: #### B MP #### [facility] [address] [place] [address] Dr. Silver Harrison EGFR-AF CITIZEN [place] 11 mL/min/1.73m2 Critically low >=60 [facility] Comment on above: Performed By: #### B MP #### [facility] [address] [address] [address] Silver Harrison EGFR-NON AF CITIZEN OF [place] 9 mL/min/1.73m2 Critically low >=60 [facility] Comment on above: Performed By: #### B MP #### [facility] [address] [address] [address] Silver Harrison Glucose [Mass/Vol] 114 mg/dL Critically high 74-106 T [facility] Comment on above: Performed By: #### B MP #### [facility] [address] [address] [address] Silver Harrison Potassium [Moles/Vol] 3.7 mmol/L Normal 3.5-5.1 [facility] Comment on above: Performed By: #### B MP #### [facility] [address] [address] [address] Silver Harrison Sodium [Moles/Vol] 135 mmol/L Critically low 136-145 Th [facility] Comment on above: Performed By: #### B MP #### [facility] [address] [address] [address] Silver Harrison Urea nitrogen [Mass/Vol] 33.0 mg/dL Critically high 7.0-18.0 [facility] Comment on above: Performed By: #### B MP #### [facility] [id number] Silver Harrison Urea nitrogen/Creatinine [Mass ratio] 6.9 mg/mg Normal [facility] Comment on above: Performed By: #### B MP #### [facility] [id number] Silver Harrison Partial Thromboplastin Timeo n 07-31-2022 aPTT Coag (Bld) [Time] 28.0 s Normal 25.1-36.5 [facility] Comment on above: Result Comment: PERF ORMED BY: [facility] [address] [place] [address] PATHOLOGIST HOUSEKEEPER/LAUNDRY ASSISTANT DANII HAYNES M.D. Performed By: #### G LULS #### Point of Care testing , Platelet mean volume Auto (B ld) [Entitic vol]Ordered By: Malcolm Moss on 07-31-2022 Platelet mean volume (Bld) [Entitic vol] 8.4 fL 6.3-10.7 [facility] Platelet poor plasma interna tional normalized ratio (INR) by coagulation assay (relatOrdered By: Malcolm Moss on 07-31-2022 INR Coag (PPP) [Relative time] 1.1 {INR} [facility] Comment on above: INR Therapeutic Rang e [...] 07-31-2022 Platelets (Bld) [#/Vol] 155 10*3/uL 150-450 [facility] Potassium [Moles/volume] in Serum or PlasmaOrdered By: Malcolm Moss on 07-31-2022 Potassium [Moles/Vol] 4.3 mmol/L Normal 3.5-5.1 [facility] Comment on above: Performed By: #### G LULS #### Point of Care testing , Protein Auto test strip (U) [Mass/Vol]Ordered By: Malcolm Moss on 07-31-2022 Protein (U) [Mass/Vol] mg/dL Negative [facility] Protein [Mass/volume] in Ser um or PlasmaOrdered By: Malcolm Moss on 07-31-2022 Protein [Mass/Vol] 8.1 g/dL Normal 6.4-8.9 [facility] Comment on above: Performed By: #### G LULS #### Point of Care testing , Prothrombin Time INRon 07-31 INR Coag (PPP) [Relative time] 1.1 {INR} Normal [facility] Comment on above: Result Comment: INR Therapeutic [...] Coag (PPP) [Time] 12.3 s Normal 9.0-12.9 [facility] Comment on above: Performed By: #### G LULS #### Point of Care testing , RBC Auto (Bld) [#/Vol]Ordere d By: Malcolm Moss on 07-31-2022 RBC (Bld) [#/Vol] 3.45 10*6/uL 3.60-5.00 [facility] Redraw CKon 07-31-2022 CK [Catalytic activity/Vol] 70 U/L Normal 30-223 [facility] Comment on above: Result Comment: PERF ORMED BY: [facility] [address] [address] PATHOLOGIST HOUSEKEEPER/LAUNDRY ASSISTANT DANII HAYNES M.D. Performed By: #### G MARLOLS #### Point of Care testing , Serum globulin measurement b y calculation (mass/volume)Ordered By: Malcolm Moss on 07-31-2022 Globulin (S) [Mass/Vol] 4.5 g/dL Normal [facility] Comment on above: Performed By: #### G LULS #### Point of Care testing , Serum or plasma albumin/glob ulin mass ratioOrdered By: Malcolm Moss on 07-31-2022 Albumin/Globulin [Mass ratio] 0.8 {ratio} [facility] Comment on above: Performed By: #### G LULS #### Point of Care testing , Serum or plasma anion gap de terminationOrdered By: Malcolm Moss on 07-31-2022 Anion gap [Moles/Vol] 16.0 mmol/L High 6.0-15.0 [facility] Comment on above: Performed By: #### G LULS #### Point of Care testing , Serum or plasma non-glucuron idated bilirubin measurement (mass/volume)Ordered By: Malcolm Moss on 07-31-2022 Bilirubin.indirect [Mass/Vol] 0.5 mg/dL [facility] Sodium [Moles/volume] in Ser um or PlasmaOrdered By: Malcolm Moss on 07-31-2022 Sodium [Moles/Vol] 134 mmol/L Low 136-145 [facility] Comment on above: Performed By: #### G LULS #### Point of Care testing , Squamous epithelial cells de tection in urine sediment by light microscopyOrdered By: Malcolm Moss on 07-31-2022 Epithelial cells.squamous LM Ql (Urine sed) 10-19 [HPF] 0-2 [facility] Troponin I High Sensitivityo n 07-31-2022 Troponin I High Sensitivity 7.7 pg/mL Normal 0.0-15.0 [facility] Comment on above: Result Comment: PERF ORMED BY: [facility] [address] [place] [address] PATHOLOGIST HOUSEKEEPER/LAUNDRY ASSISTANT DANII HAYNES M.D. Performed By: #### G LULS #### Point of Care testing , Troponin I.cardiac [Mass/vol ume] in Serum or Plasma by Detection limit <= 0.01 ng/Ordered By: Malcolm Moss on 07-31-2022 Troponin I.cardiac DL <= 0.01 ng/mL [Mass/Vol] 7.7 pg/mL 0.0-15.0 [facility] Urea nitrogen [Mass/volume] in Serum or PlasmaOrdered By: Malcolm Moss on 07-31-2022 Urea nitrogen [Mass/Vol] 26 mg/dL High 7-25 [facility] Comment on above: Performed By: #### G LULS #### Point of Care testing , Urine Cultureon 07-31-2022 Bacteria identified Cx Nom (U) ORGANISM: Escherichia coli (O:ESCCOL) [place] Count >100,000 Aerobic MARIANNE Charge (NMIC56) SUSCEPTIBILITY [...] <4 Tigecycline S <2 Tobramycin S <2 Trimethoprim/Sulfamethoxaz ole S <0.5 S = SUSCEPTIBLE I = [...] RESISTANT TO ALL B-LACTAM DRUGS. PERFORMED BY: [address] [place] [address] PATHOLOGIST HOUSEKEEPER/LAUNDRY ASSISTANT DANII HAYNES M.D. Normal [facility] Comment on above: Performed By: #### G CAPRICE #### Point of Care testing , Urine appearanceOrdered By: Malcolm Moss on 07-31-2022 Appearance (U) Cloudy Critically abnormal Clear [facility] Comment on above: Order Comment: Name Collection Type:: Straight Catheter Performed By: #### G CAPRICE #### Point of Care testing , Urine bacteria detection by automated methodOrdered By: Malcolm Moss on 07-31-2022 Bacteria Auto Ql (U) 3+ None Seen [facility] Urine colorOrdered By: Laura Moss on 07-31-2022 Color (U) Yellow Normal Yellow [facility] Comment on above: Order Comment: Name Collection Type:: Straight Catheter Performed By: #### G LULS #### Point of Care testing , Urine glucose measurement by automated test strip (mass/volume)Ordered By: Malcolm Moss on 07-31-2022 Glucose Auto test strip (U) [Mass/Vol] Normal mg/dL Normal [facility] Urine hemoglobin detection b y automated test stripOrdered By: Malcolm Moss on 07-31-2022 Hemoglobin Auto test strip Ql (U) 3+ Negative [facility] Urine leukocyte esterase det ection by automated test stripOrdered By: Malcolm Moss on 07-31-2022 Leukocyte esterase Auto test strip Ql (U) 4+ Negative [facility] Urine nitrite detection by a utomated test stripOrdered By: Malcolm Moss on 07-31-2022 Nitrite Auto test strip Ql (U) Negative Negative [facility] Urine pH measurement by auto mated test stripOrdered By: Malcolm Moss on 07-31-2022 pH (U) 6.0 [pH] Normal 5.0-9.0 [facility] Comment on above: Order Comment: Name Collection Type:: Straight Catheter Performed By: #### G LULS #### Point of Care testing , Urobilinogen Auto test strip (U) [Mass/Vol]Ordered By: Malcolm Moss on 07-31-2022 Urobilinogen (U) [Mass/Vol] Normal mg/dL Normal [facility] WBC Auto (Bld) [#/Vol]Ordere d By: Malcoml Moss on 07-31-2022 WBC (Bld) [#/Vol] 27.0 10*3/uL 3.8-11.6 [facility] XR chest 1V portableon 07-31 XR chest 1V portable [facility] [place] [address] XRay Report Signed Patient: Amparo Castorena MR#: [id number] 68 : 1950 Acct:[id number] Age/Sex: 71 / F ADM Date: 07/31/22 Loc: ER Room: Type: [facility] ER Attending Dr: Copies to: Malcolm Moss [...] FINDINGS Impression dictated by: Dewayne Wei Jr., DElaineOElaine07/31/2022 3:53 PM Dictation Location: [place] [address] Transcribed By: [facility] 07/31/221552 Dictated By: Dewayne Wei Jr, DO 07/31/221551 Signed By: 07/31/221552 Normal [facility] Yeast detection in urine sed iment by light microscopyOrdered By: Malcolm Moss on 07-31-2022 Yeast LM Ql (Urine sed) N/A [facility] pH Auto test strip (U)Ordere d By: Malcolm Moss on 07-31-2022 pH (U) 1.020 [pH] 1.001-1.03 0 [facility] CBC AUTO DIFFon 07-29-2022 BASO # 0.1 103/ul Normal 0.0-0.1 [facility] Comment on above: Performed By: #### U SUNITA, MG, RENAL #### [facility] [address] [address] [address] Silver Harrison Basophils/100 WBC (Bld) 0.6 % Normal 0.2-2.0 [facility] Comment on above: Performed By: #### U SUNITA, MG, RENAL #### [facility] [address] [address] [address] Silver Harrison EO # 0.1 103/ul Normal 0.0-0.7 [facility] Comment on above: Performed By: #### U SUNITA, MG, RENAL #### [facility] [address] [address] [address] Silver Harrison Eosinophils/100 WBC (Bld) 1.8 % Normal 0.9-7.0 [facility] Comment on above: Performed By: #### U SUNITA, MG, RENAL #### [facility] [address] [place] [address] Dr. Silver Harrison Erythrocyte distribution width (RBC) [Ratio] 13.2 % Normal 11.0-15.0 [facility] Comment on above: Performed By: #### U SUNITA, MG, RENAL #### [facility] [address] [place] [address] Dr. Silver Harrison Hematocrit (Bld) [Volume fraction] 45.2 % Normal 36.0-48.0 [facility] Comment on above: Performed By: #### U SUNITA, MG, RENAL #### [facility] [address] [place] [address] Dr. Silver Harrison Hemoglobin (Bld) [Mass/Vol] 15.3 g/dL Normal 12.0-16.0 [facility] Comment on above: Performed By: #### U SUNITA, MG, RENAL #### [facility] [address] [place] [address] Dr. Silver Harrison IG # 0.07 10e3/ul Critically high 0.00-0.03 [facility] Comment on above: Performed By: #### U SUNITA, MG, RENAL #### [facility] [address] [place] [address] Dr. Silver Harrison IG % 0.9 % Critically high 0.0-0.5 [facility] Comment on above: Performed By: #### U SUNITA, MG, RENAL #### [facility] [address] [place] [address] Dr. Silver Harrison LYMPH # 2.1 103/ul Normal 1.2-3.8 [facility] Comment on above: Performed By: #### U SUNITA, MG, RENAL #### [facility] [address] [place] [address] Dr. Silver Harrison Lymphocytes/100 WBC (Bld) 27.2 % Normal 20.5-60.0 [facility] Comment on above: Performed By: #### U SUNITA, MG, RENAL #### [facility] [address] [place] [address] Dr. Silver Harrison MANUAL DIFF REQ NO Normal [facility] Comment on above: Performed By: #### U SUNITA, MG, RENAL #### [facility] [address] [place] [address] Dr. Silver Harrison MCH (RBC) [Entitic mass] 31.5 pg Normal 26.7-34.0 [facility] Comment on above: Performed By: #### U SUNITA, MG, RENAL #### [facility] [address] [place] [address] Dr. Silver Harrison MCHC (RBC) [Mass/Vol] 33.8 g/dL Normal 29.9-35.2 [facility] Comment on above: Performed By: #### U SUNITA, MG, RENAL #### [facility] [address] [place] [address] Dr. Silver Harirson MCV (RBC) [Entitic vol] 93.0 fL Normal 81.0-99.0 [facility] Comment on above: Performed By: #### U SUNITA, MG, RENAL #### [facility] [address] [place] [address] Dr. Silver Harrison MONO # 0.5 103/ul Normal 0.3-0.8 [facility] Comment on above: Performed By: #### U SUNITA, MG, RENAL #### [facility] [address] [place] [address] Dr. Silver Harrison Monocytes/100 WBC (Bld) 7.0 % Normal 1.7-12.0 [facility] Comment on above: Performed By: #### U SUNITA, MG, RENAL #### [facility] [address] [place] [address] Dr. Silver Harrison NEUT # 4.8 103/ul Normal 1.4-6.5 [facility] Comment on above: Performed By: #### U SUNITA, MG, RENAL #### [facility] [address] [place] [address] Dr. Silver Harrison Neutrophils/100 WBC (Bld) 62.5 % Normal 43.0-75.0 [facility] Comment on above: Performed By: #### U SUNITA, MG, RENAL #### [facility] [address] [address] [address] Silver Harrison Platelet mean volume (Bld) [Entitic vol] 12.2 fL Normal 9.5-13.5 [facility] Comment on above: Performed By: #### U SUNITA, MG, RENAL #### [facility] [address] [address] [address] Silver Harrison PLT 156 103/ul Normal 150-450 [facility] Comment on above: Performed By: #### U SUNITA, MG, RENAL #### [facility] [address] [address] [address] Silver Harrison RBC 4.86 106/ul Normal 4.20-5.40 [facility] Comment on above: Performed By: #### U SUNITA, MG, RENAL #### [facility] [address] [place] [address] Dr. Silver Harrison WBC 7.8 103/ul Normal 4.0-11.0 [facility] Comment on above: Performed By: #### U SUNITA, MG, RENAL #### [facility] [address] [address] [address] Silver Harrison FERRITINon 07-29-2022 Ferritin [Mass/Vol] 704.0 ng/mL Critically high 8.0-252.0 [facility] Comment on above: Performed By: #### U SUNITA, MG, RENAL #### [facility] [address] [address] [address] Silver Harrison IRON AND TIBCon 07-29-2022 % SATURATION 20.2 % Normal [facility] Comment on above: Performed By: #### U SUNITA, MG, RENAL #### [facility] [address] [address] [address] Silver Harrison Iron [Mass/Vol] 47.0 ug/dL Critically low 50.0-170.0 [facility] Comment on above: Performed By: #### U SUNITA, MG, RENAL #### [facility] [address] [address] [address] Silver Harrison TIBC DIRECT 233.0 ug/dL Critically low 250.0-450. 0 [facility] Comment on above: Performed By: #### U SUNITA, MG, RENAL #### [facility] [address] [place] [address] Dr. Silver Harrison CBC AUTO DIFFon 07-24-2022 BASO # 0.1 103/ul Normal 0.0-0.1 [facility] Comment on above: Performed By: #### B MP #### [facility] [address] [place] [address] Dr. Silver Harrison Basophils/100 WBC (Bld) 0.6 % Normal 0.2-2.0 [facility] Comment on above: Performed By: #### B MP #### [facility] [address] [place] [address] Dr. Silver Harrison EO # 0.3 103/ul Normal 0.0-0.7 [facility] Comment on above: Performed By: #### B MP #### [facility] [address] [place] [address] Dr. Silver Harrison Eosinophils/100 WBC (Bld) 2.3 % Normal 0.9-7.0 [facility] Comment on above: Performed By: #### B MP #### [facility] [address] [place] [address] Dr. Silver Harrison Erythrocyte distribution width (RBC) [Ratio] 13.3 % Normal 11.0-15.0 [facility] Comment on above: Performed By: #### B MP #### [facility] [address] [place] [address] Dr. Silver Harrison Hematocrit (Bld) [Volume fraction] 28.8 % Critically low 36.0-48.0 [facility] Comment on above: Performed By: #### B MP #### [facility] [address] [place] [address] Dr. Silver Harrison Hemoglobin (Bld) [Mass/Vol] 8.8 g/dL Critically low 12.0-16.0 [facility] Comment on above: Performed By: #### B MP #### [facility] [address] [place] [address] Dr. Silver Harrison IG # 0.12 10e3/ul Critically high 0.00-0.03 [facility] Comment on above: Performed By: #### B MP #### [facility] [address] [place] [address] Dr. Silver Harriosn IG % 1.1 % Critically high 0.0-0.5 [facility] Comment on above: Performed By: #### B MP #### [facility] [address] [place] [address] Dr. Silver Harrison LYMPH # 2.4 103/ul Normal 1.2-3.8 [facility] Comment on above: Performed By: #### B MP #### [facility] [address] [place] [address] Dr. Silver Harrison Lymphocytes/100 WBC (Bld) 22.0 % Normal 20.5-60.0 [facility] Comment on above: Performed By: #### B MP #### [facility] [address] [place] [address] Dr. Silver Harrison MANUAL DIFF REQ NO Normal [facility] Comment on above: Performed By: #### B MP #### [facility] [address] [place] [address] Dr. Silver Harrison MCH (RBC) [Entitic mass] 28.9 pg Normal 26.7-34.0 [facility] Comment on above: Performed By: #### B MP #### [facility] [address] [place] [address] Dr. Silver Harrison MCHC (RBC) [Mass/Vol] 30.6 g/dL Normal 29.9-35.2 [facility] Comment on above: Performed By: #### B MP #### [facility] [address] [place] [address] Dr. Silver Harrison MCV (RBC) [Entitic vol] 94.4 fL Normal 81.0-99.0 [facility] Comment on above: Performed By: #### B MP #### [facility] [address] [place] [address] Dr. Silver Harrison MONO # 0.5 103/ul Normal 0.3-0.8 [facility] Comment on above: Performed By: #### B MP #### [facility] [address] [address] [address] Silver Harrison Monocytes/100 WBC (Bld) 4.8 % Normal 1.7-12.0 [facility] Comment on above: Performed By: #### B MP #### [facility] [address] [address] [address] Silver Harrison NEUT # 7.4 103/ul Critically high 1.4-6.5 [facility] Comment on above: Performed By: #### B MP #### [facility] [address] [address] [address] Silver Harrison Neutrophils/100 WBC (Bld) 69.2 % Normal 43.0-75.0 [facility] Comment on above: Performed By: #### B MP #### [facility] [address] [address] [address] Silver Harrison Platelet mean volume (Bld) [Entitic vol] 9.8 fL Normal 9.5-13.5 [facility] Comment on above: Performed By: #### B MP #### [facility] [address] [address] [address] Silver Harrison PLT 146 103/ul Critically low 150-450 [facility] Comment on above: Performed By: #### B MP #### [facility] [address] [address] [address] Silver Harrison RBC 3.05 106/ul Critically low 4.20-5.40 [facility] Comment on above: Performed By: #### B MP #### [facility] [address] [address] [address] Silver Harrison WBC 10.7 103/ul Normal 4.0-11.0 [facility] Comment on above: Performed By: #### B MP #### [facility] [address] [place] [address] Dr. Silver Harrison PHOSPHORUSon 07-24-2022 Phosphate [Mass/Vol] 4.5 mg/dL Normal 2.6-4.7 [facility] Comment on above: Performed By: #### U SUNITA, MG, RENAL #### [facility] [address] [place] [address] Dr. Silver Harrison PROF CHEM 8 (BAS METB)on Anion gap [Moles/Vol] 13.6 mmol/L Normal Th [facility] Comment on above: Performed By: #### U SUNITA, MG, RENAL #### [facility] [address] [place] [address] Dr. Silver Harrison Calcium [Mass/Vol] 8.5 mg/dL Normal 8.5-10.1 [facility] Comment on above: Performed By: #### U SUNITA, MG, RENAL #### [facility] [address] [place] [address] Dr. Silver Harrison Chloride [Moles/Vol] 105 mmol/L Normal 98-107 [facility] Comment on above: Performed By: #### U SUNITA, MG, RENAL #### [facility] [address] [place] [address] Dr. Silver Harrison CO2 [Moles/Vol] 25.8 mmol/L Normal 21.0-32.0 [facility] Comment on above: Performed By: #### U SUNITA, MG, RENAL #### [facility] [address] [place] [address] Dr. Silver Harrison Creatinine [Mass/Vol] 4.02 mg/dL Critically high 0.55-1.02 [facility] Comment on above: Performed By: #### U SUNITA, MG, RENAL #### [facility] [address] [place] [address] Dr. Silver Harrison EGFR-AF CITIZEN [place] 13 mL/min/1.73m2 Critically low >=60 [facility] Comment on above: Performed By: #### U SUNITA, MG, RENAL #### [facility] [address] [place] [address] Dr. Silver Harrison EGFR-NON AF CITIZEN [place] 11 mL/min/1.73m2 Critically low >=60 [facility] Comment on above: Performed By: #### U SUNITA, MG, RENAL #### [facility] [address] [address] [address] Silver Harrison Glucose [Mass/Vol] 74 mg/dL Normal 74-106 [facility] Comment on above: Performed By: #### U SUNITA, MG, RENAL #### [facility] [address] [place] [address] Dr. Silver Harrison Potassium [Moles/Vol] 4.4 mmol/L Normal 3.5-5.1 [facility] Comment on above: Performed By: #### U SUNITA, MG, RENAL #### [facility] [address] [place] [address] Dr. Silver Harrison Sodium [Moles/Vol] 140 mmol/L Normal 136-145 [facility] Comment on above: Performed By: #### U SUNITA, MG, RENAL #### [facility] [address] [place] [address] Dr. Silver Harrison Urea nitrogen [Mass/Vol] 45.0 mg/dL Critically high 7.0-18.0 [facility] Comment on above: Performed By: #### U SUNITA, MG, RENAL #### [facility] [address] [place] [address] Dr. Silver Harrison Urea nitrogen/Creatinine [Mass ratio] 11.2 mg/mg Normal [facility] Comment on above: Performed By: #### U SUNITA, MG, RENAL #### [facility] [address] [place] [address] Dr. Silver Harrison HEPATITIS PANEL, ACUTEon HBsAg Screen Negative Normal Negative [facility] Comment on above: Performed By: #### H EPACUT #### [facility] [address] [place] [address] Dr. Silver Harrison HCV AB Non-Reactive Normal Non Reactive [facility] Comment on above: Performed By: #### H EPACUT #### [facility] [address] [place] [address] Dr. Silver Harrison Hep A Ab, IgM Negative Normal Negative [facility] Comment on above: Performed By: #### H EPACUT #### [facility] [address] [place] [address] Dr. Silver Harrison Hep B Core Ab, IgM Negative Normal Negative [facility] Comment on above: Performed By: #### H EPACUT #### [facility] [address] [place] [address] Dr. Silver Harrison Interpretation: Comment Normal [facility] Comment on above: Result Comment: Not infected with HCV unless early or acute infection is suspected (which may be delayed in an immunocompromised individual), or other evidence exists to indicate HCV infection. Performed By: #### H EPACUT #### [facility] [address] [place] [address] Dr. Silver Harrison PTH INTACTon 07-21-2022 PTH, Intact 164 pg/mL Critically high 15-65 [facility] Comment on above: Performed By: #### U SUNITA, MG, RENAL #### [facility] [address] [place] [address] Dr. Silver Harrison CBC AUTO DIFFon 07-20-2022 BASO # 0.0 103/ul Normal 0.0-0.1 [facility] Comment on above: Performed By: #### C BC #### [facility] [address] [place] [address] Dr. Silver Harrison Basophils/100 WBC (Bld) 0.3 % Normal 0.2-2.0 [facility] Comment on above: Performed By: #### C BC #### [facility] [address] [place] [address] Dr. Silver Harrison EO # 0.2 103/ul Normal 0.0-0.7 [facility] Comment on above: Performed By: #### C BC #### [facility] [address] [place] [address] Dr. Silver Harrison Eosinophils/100 WBC (Bld) 2.5 % Normal 0.9-7.0 [facility] Comment on above: Performed By: #### C BC #### [facility] [address] [place] [address] Dr. Silver Harrison Erythrocyte distribution width (RBC) [Ratio] 13.2 % Normal 11.0-15.0 [facility] Comment on above: Performed By: #### C BC #### [facility] [address] [place] [address] Dr. Silver Harrison Hematocrit (Bld) [Volume fraction] 28.7 % Critically low 36.0-48.0 [facility] Comment on above: Performed By: #### C BC #### [facility] [address] [place] [address] Dr. Silver Harrison Hemoglobin (Bld) [Mass/Vol] 8.6 g/dL Critically low 12.0-16.0 [facility] Comment on above: Performed By: #### C BC #### [facility] [address] [place] [address] Dr. Silver Harrison IG # 0.05 10e3/ul Critically high 0.00-0.03 [facility] Comment on above: Performed By: #### C BC #### [facility] [address] [place] [address] Dr. Silver Harrison IG % 0.5 % Normal 0.0-0.5 [facility] Comment on above: Performed By: #### C BC #### [facility] [address] [place] [address] Dr. Silver Harrison LYMPH # 1.9 103/ul Normal 1.2-3.8 [facility] Comment on above: Performed By: #### C BC #### [facility] [address] [place] [address] Dr. Silver Harrison Lymphocytes/100 WBC (Bld) 20.3 % Critically low 20.5-60.0 [facility] Comment on above: Performed By: #### C BC #### [facility] [address] [place] [address] Dr. Silver Harrison MANUAL DIFF REQ NO Normal [facility] Comment on above: Performed By: #### C BC #### [facility] [address] [place] [address] Dr. Silver Harrison MCH (RBC) [Entitic mass] 28.9 pg Normal 26.7-34.0 [facility] Comment on above: Performed By: #### C BC #### [facility] [address] [place] [address] Dr. Silver Harrison MCHC (RBC) [Mass/Vol] 30.0 g/dL Normal 29.9-35.2 [facility] Comment on above: Performed By: #### C BC #### [facility] [address] [place] [address] Dr. Silver Harrison MCV (RBC) [Entitic vol] 96.3 fL Normal 81.0-99.0 [facility] Comment on above: Performed By: #### C BC #### [facility] [address] [place] [address] Dr. Silver Harrison MONO # 0.6 103/ul Normal 0.3-0.8 [facility] Comment on above: Performed By: #### C BC #### [facility] [address] [place] [address] Dr. Silver Harrison Monocytes/100 WBC (Bld) 6.1 % Normal 1.7-12.0 [facility] Comment on above: Performed By: #### C BC #### [facility] [address] [place] [address] Dr. Silver Harrison NEUT # 6.5 103/ul Normal 1.4-6.5 [facility] Comment on above: Performed By: #### C BC #### [facility] [address] [place] [address] Dr. Silver Harrison Neutrophils/100 WBC (Bld) 70.3 % Normal 43.0-75.0 [facility] Comment on above: Performed By: #### C BC #### [facility] [address] [place] [address] Dr. Silver Harrison Platelet mean volume (Bld) [Entitic vol] 9.8 fL Normal 9.5-13.5 [facility] Comment on above: Performed By: #### C BC #### [facility] [address] [place] [address] Dr. Silver Harrison PLT 171 103/ul Normal 150-450 [facility] Comment on above: Performed By: #### C BC #### [facility] [address] [place] [address] Dr. Silver Harrison RBC 2.98 106/ul Critically low 4.20-5.40 [facility] Comment on above: Performed By: #### C BC #### [facility] [address] [place] [address] Dr. Silver Harrison WBC 9.3 103/ul Normal 4.0-11.0 [facility] Comment on above: Performed By: #### C BC #### [facility] [address] [place] [address] Dr. Silver Harrison FERRITINon 07-20-2022 Ferritin [Mass/Vol] 381.0 ng/mL Critically high 8.0-252.0 [facility] Comment on above: Performed By: #### B MP #### [facility] [address] [place] [address] Dr. Silver Harrison IRON AND TIBCon 07-20-2022 % SATURATION 14.6 % Normal [facility] Comment on above: Performed By: #### B MP #### [facility] [address] [place] [address] Dr. Silver Harrison Iron [Mass/Vol] 30.0 ug/dL Critically low 50.0-170.0 [facility] Comment on above: Performed By: #### B MP #### [facility] [address] [place] [address] Dr. Silver Harrison TIBC DIRECT 206.0 ug/dL Critically low 250.0-450. 0 [facility] Comment on above: Performed By: #### B MP #### [facility] [address] [place] [address] Dr. Silver Harrison PROF 14(COMP METB)on 023 Albumin [Mass/Vol] 2.8 g/dL Critically low 3.4-5.0 [facility] Comment on above: Performed By: #### B MP #### [facility] [address] [place] [address] Dr. Silver Harrison Albumin/Globulin [Mass ratio] 0.5 {ratio} Normal [facility] Comment on above: Performed By: #### B MP #### [facility] [address] [address] [address] Silver Harrison ALP [Catalytic activity/Vol] 145 U/L Critically high 46-116 [facility] Comment on above: Performed By: #### B MP #### [facility] [address] [place] [address] Dr. Silver Harrison ALT [Catalytic activity/Vol] 13 U/L Critically low 14-59 [facility] Comment on above: Performed By: #### B MP #### [facility] [address] [address] [address] Silver Harrison Anion gap [Moles/Vol] 15.6 mmol/L Normal [facility] Comment on above: Performed By: #### B MP #### [facility] [address] [place] [address] Dr. Silver Harrison AST [Catalytic activity/Vol] 12 U/L Critically low 15-37 [facility] Comment on above: Performed By: #### B MP #### [facility] [address] [place] [address] Dr. Silver Harrison Bilirubin [Mass/Vol] 0.2 mg/dL Normal 0.2-1.0 [facility] Comment on above: Performed By: #### B MP #### [facility] [address] [place] [address] Dr. Silver Harrison Calcium [Mass/Vol] 8.3 mg/dL Critically low 8.5-10.1 [facility] Comment on above: Performed By: #### B MP #### [facility] [address] [place] [address] Dr. Silver Harrison Chloride [Moles/Vol] 113 mmol/L Critically high 98-107 [facility] Comment on above: Performed By: #### B MP #### [facility] [address] [place] [address] Dr. Silver Harrison CO2 [Moles/Vol] 25.1 mmol/L Normal 21.0-32.0 [facility] Comment on above: Performed By: #### B MP #### [facility] [address] [place] [address] Dr. Silver Harrison Creatinine [Mass/Vol] 4.32 mg/dL Critically high 0.55-1.02 [facility] Comment on above: Performed By: #### B MP #### [facility] [address] [address] [address] Silver Harrison EGFR-AF [place]IZ[place] 12 mL/min/1.73m2 Critically low >=60 [facility] Comment on above: Performed By: #### B MP #### [facility] [address] [address] [address] Silver Harrison EGFR-NON AF CITIZEN OF [place] 10 mL/min/1.73m2 Critically low >=60 [facility] Comment on above: Performed By: #### B MP #### [facility] [address] [place] [address] Dr. Silver Harrison Globulin (S) [Mass/Vol] 5.6 g/dL Normal [facility] Comment on above: Performed By: #### B MP #### [facility] [address] [place] [address] Dr. Silver Harrison Glucose [Mass/Vol] 45 mg/dL Critically low 74-106 [facility] Comment on above: Performed By: #### B MP #### [facility] [address] [place] [address] Dr. Silver Harrison Potassium [Moles/Vol] 4.7 mmol/L Normal 3.5-5.1 [facility] Comment on above: Performed By: #### B MP #### [facility] [address] [place] [address] Dr. Silver Harrison Protein [Mass/Vol] 8.4 g/dL Critically high 6.4-8.2 [facility] Comment on above: Performed By: #### B MP #### [facility] [address] [place] [address] Dr. Silver Harrison Sodium [Moles/Vol] 149 mmol/L Critically high 136-145 [facility] Comment on above: Performed By: #### B MP #### [facility] [address] [place] [address] Dr. Silver Harrison Urea nitrogen [Mass/Vol] 54.0 mg/dL Critically high 7.0-18.0 [facility] Comment on above: Performed By: #### B MP #### [facility] [address] [place] [address] Dr. Silver Harrison Urea nitrogen/Creatinine [Mass ratio] 12.5 mg/mg Normal [facility] Comment on above: Performed By: #### B MP #### [facility] [address] [place] [address] Dr. Silver Harrison VIT B12 AND FOLATEon 023 Cobalamin (Vitamin B12) [Mass/Vol] 395.0 pg/mL Normal 193.0-986. 0 [facility] Comment on above: Performed By: #### B MP #### [facility] [address] [place] [address] Dr. Silver Harrison FOLATE 5.60 ng/mL Critically low 8.60-58.90 [facility] Comment on above: Performed By: #### B MP #### [facility] [address] [place] [address] Dr. Silver Harrison CBC AUTO DIFFon 07-17-2022 BASO # 0.0 103/ul Normal 0.0-0.1 [facility] Comment on above: Performed By: #### C BC #### [facility] [address] [place] [address] Dr. Silver Harrison Basophils/100 WBC (Bld) 0.5 % Normal 0.2-2.0 [facility] Comment on above: Performed By: #### C BC #### [facility] [address] [place] [address] Dr. Silver Harrison EO # 0.2 103/ul Normal 0.0-0.7 [facility] Comment on above: Performed By: #### C BC #### [facility] [address] [place] [address] Dr. Silver Harrison Eosinophils/100 WBC (Bld) 2.6 % Normal 0.9-7.0 [facility] Comment on above: Performed By: #### C BC #### [facility] [address] [place] [address] Dr. Silver Harrison Erythrocyte distribution width (RBC) [Ratio] 13.2 % Normal 11.0-15.0 [facility] Comment on above: Performed By: #### C BC #### [facility] [address] [place] [address] Dr. Silver Harrison Hematocrit (Bld) [Volume fraction] 25.7 % Critically low 36.0-48.0 [facility] Comment on above: Performed By: #### C BC #### [facility] [address] [place] [address] Dr. Silver Harrison Hemoglobin (Bld) [Mass/Vol] 7.7 g/dL Critically low 12.0-16.0 [facility] Comment on above: Performed By: #### C BC #### [facility] [address] [place] [address] Dr. Silver Harrison IG # 0.04 10e3/ul Critically high 0.00-0.03 [facility] Comment on above: Performed By: #### C BC #### [facility] [address] [place] [address] Dr. Silver Harrison IG % 0.5 % Normal 0.0-0.5 [facility] Comment on above: Performed By: #### C BC #### [facility] [address] [place] [address] Dr. Silver Harrison LYMPH # 1.9 103/ul Normal 1.2-3.8 [facility] Comment on above: Performed By: #### C BC #### [facility] [address] [place] [address] Dr. Silver Harrison Lymphocytes/100 WBC (Bld) 21.8 % Normal 20.5-60.0 [facility] Comment on above: Performed By: #### C BC #### [facility] [address] [place] [address] Dr. Silver Harrison MANUAL DIFF REQ NO Normal [facility] Comment on above: Performed By: #### C BC #### [facility] [address] [place] [address] Dr. Silver Harrison MCH (RBC) [Entitic mass] 29.2 pg Normal 26.7-34.0 [facility] Comment on above: Performed By: #### C BC #### [facility] [address] [place] [address] Dr. Silver Harrison MCHC (RBC) [Mass/Vol] 30.0 g/dL Normal 29.9-35.2 [facility] Comment on above: Performed By: #### C BC #### [facility] [address] [place] [address] Dr. Silver Harrison MCV (RBC) [Entitic vol] 97.3 fL Normal 81.0-99.0 [facility] Comment on above: Performed By: #### C BC #### [facility] [address] [place] [address] Dr. Silver Harrison MONO # 0.6 103/ul Normal 0.3-0.8 [facility] Comment on above: Performed By: #### C BC #### [facility] [address] [place] [address] Dr. Silver Harrison Monocytes/100 WBC (Bld) 7.3 % Normal 1.7-12.0 [facility] Comment on above: Performed By: #### C BC #### [facility] [address] [place] [address] Dr. Silver Harrison NEUT # 5.7 103/ul Normal 1.4-6.5 [facility] Comment on above: Performed By: #### C BC #### [facility] [address] [place] [address] Dr. Silver Harrison Neutrophils/100 WBC (Bld) 67.3 % Normal 43.0-75.0 [facility] Comment on above: Performed By: #### C BC #### [facility] [address] [place] [address] Dr. Silver Harrison Platelet mean volume (Bld) [Entitic vol] 10.0 fL Normal 9.5-13.5 [facility] Comment on above: Performed By: #### C BC #### [facility] [address] [place] [address] Dr. Silver Harrison PLT 154 103/ul Normal 150-450 [facility] Comment on above: Performed By: #### C BC #### [facility] [address] [place] [address] Dr. Silver Harrison RBC 2.64 106/ul Critically low 4.20-5.40 [facility] Comment on above: Performed By: #### C BC #### [facility] [address] [place] [address] Dr. Silver Harrison WBC 8.5 103/ul Normal 4.0-11.0 [facility] Comment on above: Performed By: #### C BC #### [facility] [address] [place] [address] Dr. Silver Harrison PHOSPHORUSon 07-17-2022 Phosphate [Mass/Vol] 4.9 mg/dL Critically high 2.6-4.7 [facility] Comment on above: Performed By: #### U SUNITA, MG, RENAL #### [facility] [address] [place] [address] Dr. Silver Harrison PROF CHEM 8 (BAS METB)on Anion gap [Moles/Vol] 12.1 mmol/L Normal [facility] Comment on above: Performed By: #### U SUNITA, MG, RENAL #### [facility] [address] [place] [address] Dr. Silver Harrison Calcium [Mass/Vol] 7.9 mg/dL Critically low 8.5-10.1 [facility] Comment on above: Performed By: #### U SUNITA, MG, RENAL #### [facility] [address] [place] [address] Dr. Silver Harrison Chloride [Moles/Vol] 108 mmol/L Critically high 98-107 [facility] Comment on above: Performed By: #### U SUNITA, MG, RENAL #### [facility] [address] [place] [address] Dr. Silver Harrison CO2 [Moles/Vol] 26.4 mmol/L Normal 21.0-32.0 [facility] Comment on above: Performed By: #### U SUNITA, MG, RENAL #### [facility] [address] [address] [address] Silver Harrison Creatinine [Mass/Vol] 4.33 mg/dL Critically high 0.55-1.02 [facility] Comment on above: Performed By: #### U SUNITA, MG, RENAL #### [facility] [address] [address] [address] Silver Harrison EGFR-AF CITIZEN OF [place] 12 mL/min/1.73m2 Critically low >=60 [facility] Comment on above: Performed By: #### U SUNITA, MG, RENAL #### [facility] [address] [address] [address] Silver Harrison EGFR-NON AF CITIZEN OF [place] 10 mL/min/1.73m2 Critically low >=60 [facility] Comment on above: Performed By: #### U SUNITA, MG, RENAL #### [facility] [address] [address] [address] Silver Harrison Glucose [Mass/Vol] 86 mg/dL Normal 74-106 [facility] Comment on above: Performed By: #### U SUNITA, MG, RENAL #### [facility] [address] [address] [address] Silver Harrison Potassium [Moles/Vol] 4.5 mmol/L Normal 3.5-5.1 [facility] Comment on above: Performed By: #### U SUNITA, MG, RENAL #### [facility] [address] [address] [address] Silver Harrison Sodium [Moles/Vol] 142 mmol/L Normal 136-145 [facility] Comment on above: Performed By: #### U SUNITA, MG, RENAL #### [facility] [address] [address] [address] Silver Harrison Urea nitrogen [Mass/Vol] 50.0 mg/dL Critically high 7.0-18.0 [facility] Comment on above: Performed By: #### U SUNITA, MG, RENAL #### [facility] [address] [address] [address] Silver Harrison Urea nitrogen/Creatinine [Mass ratio] 11.5 mg/mg Normal [facility] Comment on above: Performed By: #### U SUNITA, MG, RENAL #### [facility] [address] [place] [address] Dr. Silver Harrison CBC AUTO DIFFon 07-03-2022 BASO # 0.0 103/ul Normal 0.0-0.1 [facility] Comment on above: Performed By: #### U SUNITA, MG, RENAL #### [facility] [address] [place] [address] Dr. Silver Harrison Basophils/100 WBC (Bld) 0.4 % Normal 0.2-2.0 [facility] Comment on above: Performed By: #### U SUNITA, MG, RENAL #### [facility] [address] [place] [address] Dr. Silver Harrison EO # 0.3 103/ul Normal 0.0-0.7 [facility] Comment on above: Performed By: #### U SUNITA, MG, RENAL #### [facility] [address] [place] [address] Dr. Silver Harrison Eosinophils/100 WBC (Bld) 2.9 % Normal 0.9-7.0 [facility] Comment on above: Performed By: #### U SUNITA, MG, RENAL #### [facility] [address] [place] [address] Dr. Silver aHrrison Erythrocyte distribution width (RBC) [Ratio] 12.9 % Normal 11.0-15.0 [facility] Comment on above: Performed By: #### U SUNITA, MG, RENAL #### [facility] [address] [place] [address] Dr. Silver Harrison Hematocrit (Bld) [Volume fraction] 28.0 % Critically low 36.0-48.0 [facility] Comment on above: Performed By: #### U SUNITA, MG, RENAL #### [facility] [address] [place] [address] Dr. Silver Harrison Hemoglobin (Bld) [Mass/Vol] 8.5 g/dL Critically low 12.0-16.0 [facility] Comment on above: Performed By: #### U SUNITA, MG, RENAL #### [facility] [address] [address] [address] Silver Harrison IG # 0.07 10e3/ul Critically high 0.00-0.03 [facility] Comment on above: Performed By: #### U SUNITA, MG, RENAL #### [facility] [address] [address] [address] Silver Harrison IG % 0.7 % Critically high 0.0-0.5 [facility] Comment on above: Performed By: #### U SUNITA, MG, RENAL #### [facility] [address] [address] [address] Silver Harrison LYMPH # 1.7 103/ul Normal 1.2-3.8 [facility] Comment on above: Performed By: #### U SUNITA, MG, RENAL #### [facility] [address] [place] [address] Dr. Silver Harrison Lymphocytes/100 WBC (Bld) 17.7 % Critically low 20.5-60.0 [facility] Comment on above: Performed By: #### U SUNITA, MG, RENAL #### [facility] [address] [address] [address] Silver Harrison MANUAL DIFF REQ NO Normal [facility] Comment on above: Performed By: #### U SUNITA, MG, RENAL #### [facility] [address] [place] [address] Dr. Silver Harrison MCH (RBC) [Entitic mass] 29.0 pg Normal 26.7-34.0 [facility] Comment on above: Performed By: #### U SUNITA, MG, RENAL #### [facility] [address] [address] [address] Silver Harrison MCHC (RBC) [Mass/Vol] 30.4 g/dL Normal 29.9-35.2 [facility] Comment on above: Performed By: #### U SUNITA, MG, RENAL #### [facility] [address] [address] [address] Silver Harrison MCV (RBC) [Entitic vol] 95.6 fL Normal 81.0-99.0 [facility] Comment on above: Performed By: #### U SUNITA, MG, RENAL #### [facility] [address] [address] [address] Silver Harrison MONO # 0.6 103/ul Normal 0.3-0.8 [facility] Comment on above: Performed By: #### U SUNITA, MG, RENAL #### [facility] [address] [place] [address] Dr. Silver Harrison Monocytes/100 WBC (Bld) 5.7 % Normal 1.7-12.0 [facility] Comment on above: Performed By: #### U SUNITA, MG, RENAL #### [facility] [address] [place] [address] Dr. Silver Harrison NEUT # 7.1 103/ul Critically high 1.4-6.5 [facility] Comment on above: Performed By: #### U SUNITA, MG, RENAL #### [facility] [address] [place] [address] Dr. Silver Harrison Neutrophils/100 WBC (Bld) 72.6 % Normal 43.0-75.0 [facility] Comment on above: Performed By: #### U SUNITA, MG, RENAL #### [facility] [address] [place] [address] Dr. Silver Harrison Platelet mean volume (Bld) [Entitic vol] 9.8 fL Normal 9.5-13.5 [facility] Comment on above: Performed By: #### U SUNITA, MG, RENAL #### [facility] [address] [place] [address] Dr. Silver Harrison PLT 188 103/ul Normal 150-450 [facility] Comment on above: Performed By: #### U SUNITA, MG, RENAL #### [facility] [address] [place] [address] Dr. Silver Harrison RBC 2.93 106/ul Critically low 4.20-5.40 [facility] Comment on above: Performed By: #### U SUNITA, MG, RENAL #### [facility] [address] [place] [address] Dr. Silver Harrison WBC 9.7 103/ul Normal 4.0-11.0 [facility] Comment on above: Performed By: #### U SUNITA, MG, RENAL #### [facility] [address] [address] [address] Silver Harrison PROF CHEM 8 (BAS METB)on Anion gap [Moles/Vol] 10.9 mmol/L Normal [facility] Comment on above: Performed By: #### B MP #### [facility] [address] [address] [address] Silver Harrison Calcium [Mass/Vol] 8.5 mg/dL Normal 8.5-10.1 [facility] Comment on above: Performed By: #### B MP #### [facility] [address] [place] [address] Dr. Silver Harrison Chloride [Moles/Vol] 108 mmol/L Critically high 98-107 [facility] Comment on above: Performed By: #### B MP #### [facility] [address] [place] [address] Dr. Silver Harrison CO2 [Moles/Vol] 28.6 mmol/L Normal 21.0-32.0 [facility] Comment on above: Performed By: #### B MP #### [facility] [address] [place] [address] Dr. Silver Harrison Creatinine [Mass/Vol] 4.05 mg/dL Critically high 0.55-1.02 [facility] Comment on above: Performed By: #### B MP #### [facility] [address] [place] [address] Dr. iSlver Harrison EGFR-AF CITIZEN [place] 13 mL/min/1.73m2 Critically low >=60 [facility] Comment on above: Performed By: #### B MP #### [facility] [address] [place] [address] Dr. Silver Harrison EGFR-NON AF CITIZEN [place] 11 mL/min/1.73m2 Critically low >=60 [facility] Comment on above: Performed By: #### B MP #### [facility] [address] [place] [address] Dr. Silver Harrison Glucose [Mass/Vol] 74 mg/dL Normal 74-106 [facility] Comment on above: Performed By: #### B MP #### [facility] [address] [address] [address] Silver Harrison Potassium [Moles/Vol] 4.5 mmol/L Normal 3.5-5.1 [facility] Comment on above: Performed By: #### B MP #### [facility] [address] [address] [address] Silver Harrison Sodium [Moles/Vol] 143 mmol/L Normal 136-145 [facility] Comment on above: Performed By: #### B MP #### [facility] [address] [place] [address] Dr. Silver Harrison Urea nitrogen [Mass/Vol] 45.0 mg/dL Critically high 7.0-18.0 [facility] Comment on above: Performed By: #### B MP #### [facility] [address] [place] [address] Dr. Silver Harrison Urea nitrogen/Creatinine [Mass ratio] 11.1 mg/mg Normal [facility] Comment on above: Performed By: #### B MP #### [facility] [address] [place] [address] Dr. Silver Harrison CBC AUTO DIFFon 07-01-2022 BASO # 0.1 103/ul Normal 0.0-0.1 [facility] Comment on above: Performed By: #### U SUNITA, MG, RENAL #### [facility] [address] [place] [address] Dr. Silver Harrison Basophils/100 WBC (Bld) 0.5 % Normal 0.2-2.0 [facility] Comment on above: Performed By: #### U SUNITA, MG, RENAL #### [facility] [address] [place] [address] Dr. Silver Harrison EO # 0.2 103/ul Normal 0.0-0.7 [facility] Comment on above: Performed By: #### U SUNITA, MG, RENAL #### [facility] [address] [address] [address] Silver Harrison Eosinophils/100 WBC (Bld) 2.4 % Normal 0.9-7.0 [facility] Comment on above: Performed By: #### U SUNITA, MG, RENAL #### [facility] [address] [place] [address] Dr. Silver Harrison Erythrocyte distribution width (RBC) [Ratio] 12.7 % Normal 11.0-15.0 [facility] Comment on above: Performed By: #### U SUNITA, MG, RENAL #### [facility] [address] [place] [address] Dr. Silver Harrison Hematocrit (Bld) [Volume fraction] 27.9 % Critically low 36.0-48.0 [facility] Comment on above: Performed By: #### U SUNITA, MG, RENAL #### [facility] [address] [place] [address] Dr. Silver Harrison Hemoglobin (Bld) [Mass/Vol] 8.6 g/dL Critically low 12.0-16.0 [facility] Comment on above: Performed By: #### U SUNITA, MG, RENAL #### [facility] [address] [place] [address] Dr. Silver Harrison IG # 0.10 10e3/ul Critically high 0.00-0.03 [facility] Comment on above: Performed By: #### U SUNITA, MG, RENAL #### [facility] [address] [place] [address] Dr. Silver Harrison IG % 1.0 % Critically high 0.0-0.5 [facility] Comment on above: Performed By: #### U SUNITA, MG, RENAL #### [facility] [address] [place] [address] Dr. Silver Harrison LYMPH # 1.9 103/ul Normal 1.2-3.8 [facility] Comment on above: Performed By: #### U SUNITA, MG, RENAL #### [facility] [address] [place] [address] Dr. Silver Harrison Lymphocytes/100 WBC (Bld) 19.1 % Critically low 20.5-60.0 [facility] Comment on above: Performed By: #### U SUNITA, MG, RENAL #### [facility] [address] [place] [address] Dr. Silver Harrison MANUAL DIFF REQ NO Normal [facility] Comment on above: Performed By: #### U SUNITA, MG, RENAL #### [facility] [address] [place] [address] Dr. Silver Harrison MCH (RBC) [Entitic mass] 29.5 pg Normal 26.7-34.0 [facility] Comment on above: Performed By: #### U SUNITA, MG, RENAL #### [facility] [address] [place] [address] Dr. Silver Harrison MCHC (RBC) [Mass/Vol] 30.8 g/dL Normal 29.9-35.2 [facility] Comment on above: Performed By: #### U SUNITA, MG, RENAL #### [facility] [address] [place] [address] Dr. Silver Harrison MCV (RBC) [Entitic vol] 95.5 fL Normal 81.0-99.0 [facility] Comment on above: Performed By: #### U SUNITA, MG, RENAL #### [facility] [address] [place] [address] Dr. Silver Harrison MONO # 0.6 103/ul Normal 0.3-0.8 [facility] Comment on above: Performed By: #### U SUNITA, MG, RENAL #### [facility] [address] [place] [address] Dr. Silver Harrison Monocytes/100 WBC (Bld) 5.4 % Normal 1.7-12.0 [facility] Comment on above: Performed By: #### U SUNITA, MG, RENAL #### [facility] [address] [place] [address] Dr. Silver Harrison NEUT # 7.3 103/ul Critically high 1.4-6.5 [facility] Comment on above: Performed By: #### U SUNITA, MG, RENAL #### [facility] [address] [place] [address] Dr. Silver Harrison Neutrophils/100 WBC (Bld) 71.6 % Normal 43.0-75.0 [facility] Comment on above: Performed By: #### U SUNITA, MG, RENAL #### [facility] [address] [address] [address] Silver Harrison Platelet mean volume (Bld) [Entitic vol] 10.0 fL Normal 9.5-13.5 [facility] Comment on above: Performed By: #### U SUNITA, MG, RENAL #### [facility] [address] [place] [address] Dr. Silver Harrison PLT 208 103/ul Normal 150-450 [facility] Comment on above: Performed By: #### U SUNITA, MG, RENAL #### [facility] [address] [place] [address] Dr. Silver Harrison RBC 2.92 106/ul Critically low 4.20-5.40 [facility] Comment on above: Performed By: #### U SUNITA, MG, RENAL #### [facility] [address] [place] [address] Dr. Silver Harrison WBC 10.2 103/ul Normal 4.0-11.0 [facility] Comment on above: Performed By: #### U SUNITA, MG, RENAL #### [facility] [address] [place] [address] Dr. Silver Harrison PROF CHEM 8 (BAS METB)on Anion gap [Moles/Vol] 12.7 mmol/L Normal [facility] Comment on above: Performed By: #### B MP #### [facility] [address] [place] [address] Dr. Silver Harrison Calcium [Mass/Vol] 8.5 mg/dL Normal 8.5-10.1 [facility] Comment on above: Performed By: #### B MP #### [facility] [address] [place] [address] Dr. Silver Harrison Chloride [Moles/Vol] 108 mmol/L Critically high 98-107 [facility] Comment on above: Performed By: #### B MP #### [facility] [address] [address] [address] Silver Harrison CO2 [Moles/Vol] 26.9 mmol/L Normal 21.0-32.0 [facility] Comment on above: Performed By: #### B MP #### [facility] [address] [address] [address] Silver Harrison Creatinine [Mass/Vol] 4.31 mg/dL Critically high 0.55-1.02 [facility] Comment on above: Performed By: #### B MP #### [facility] [address] [address] [address] Silver Harrison EGFR-AF CITIZEN [place] 12 mL/min/1.73m2 Critically low >=60 [facility] Comment on above: Performed By: #### B MP #### [facility] [address] [address] [address] Silver Harrison EGFR-NON AF CITIZEN OF [place] 10 mL/min/1.73m2 Critically low >=60 [facility] Comment on above: Performed By: #### B MP #### [facility] [address] [address] [address] Silver Harrison Glucose [Mass/Vol] 141 mg/dL Critically high 74-106 T [facility] Comment on above: Performed By: #### B MP #### [facility] [address] [address] [address] Silver Harrison Potassium [Moles/Vol] 4.6 mmol/L Normal 3.5-5.1 [facility] Comment on above: Performed By: #### B MP #### [facility] [address] [address] [address] Silver Harrison Sodium [Moles/Vol] 143 mmol/L Normal 136-145 [facility] Comment on above: Performed By: #### B MP #### [facility] [address] [address] [address] Silver Harrison Urea nitrogen [Mass/Vol] 47.0 mg/dL Critically high 7.0-18.0 [facility] Comment on above: Performed By: #### B MP #### [facility] [address] [place] [address] Dr. Silver Harrison Urea nitrogen/Creatinine [Mass ratio] 10.9 mg/mg Normal [facility] Comment on above: Performed By: #### B MP #### [facility] [address] [place] [address] Dr. Silver Harrison PTH INTACTon 06-25-2022 PTH, Intact 132 pg/mL Critically high 15-65 [facility] Comment on above: Performed By: #### U SUNITA, MG, RENAL #### [facility] [address] [place] [address] Dr. Silver Harrison CBC AUTO DIFFon 06-24-2022 BASO # 0.0 103/ul Normal 0.0-0.1 [facility] Comment on above: Performed By: #### B MP #### [facility] [address] [place] [address] Dr. Silver Harrison Basophils/100 WBC (Bld) 0.5 % Normal 0.2-2.0 [facility] Comment on above: Performed By: #### B MP #### [facility] [address] [place] [address] Dr. Silver Harrison EO # 0.2 103/ul Normal 0.0-0.7 [facility] Comment on above: Performed By: #### B MP #### [facility] [address] [place] [address] Dr. Silver Harrison Eosinophils/100 WBC (Bld) 2.8 % Normal 0.9-7.0 [facility] Comment on above: Performed By: #### B MP #### [facility] [address] [place] [address] Dr. Silver Harrison Erythrocyte distribution width (RBC) [Ratio] 12.5 % Normal 11.0-15.0 [facility] Comment on above: Performed By: #### B MP #### [facility] [address] [place] [address] Dr. Silver Harrison Hematocrit (Bld) [Volume fraction] 26.0 % Critically low 36.0-48.0 [facility] Comment on above: Performed By: #### B MP #### [facility] [address] [address] [address] Silver Harrison Hemoglobin (Bld) [Mass/Vol] 8.1 g/dL Critically low 12.0-16.0 [facility] Comment on above: Performed By: #### B MP #### [facility] [address] [address] [address] Silver Harrison IG # 0.08 10e3/ul Critically high 0.00-0.03 [facility] Comment on above: Performed By: #### B MP #### [facility] [address] [address] [address] Silver Harrison IG % 0.9 % Critically high 0.0-0.5 [facility] Comment on above: Performed By: #### B MP #### [facility] [address] [place] [address] Dr. Silver Harrison LYMPH # 1.6 103/ul Normal 1.2-3.8 [facility] Comment on above: Performed By: #### B MP #### [facility] [address] [place] [address] Dr. Silver Harrison Lymphocytes/100 WBC (Bld) 19.4 % Critically low 20.5-60.0 [facility] Comment on above: Performed By: #### B MP #### [facility] [address] [place] [address] Dr. Silver Harrison MANUAL DIFF REQ NO Normal [facility] Comment on above: Performed By: #### B MP #### [facility] [address] [place] [address] Dr. Silver Harrison MCH (RBC) [Entitic mass] 30.0 pg Normal 26.7-34.0 [facility] Comment on above: Performed By: #### B MP #### [facility] [address] [place] [address] Dr. Silver Harrison MCHC (RBC) [Mass/Vol] 31.2 g/dL Normal 29.9-35.2 [facility] Comment on above: Performed By: #### B MP #### [facility] [address] [place] [address] Dr. Silver Harrison MCV (RBC) [Entitic vol] 96.3 fL Normal 81.0-99.0 [facility] Comment on above: Performed By: #### B MP #### [facility] [address] [place] [address] Dr. Silver Harrison MONO # 0.6 103/ul Normal 0.3-0.8 [facility] Comment on above: Performed By: #### B MP #### [facility] [address] [place] [address] Dr. Silver Harrison Monocytes/100 WBC (Bld) 6.6 % Normal 1.7-12.0 [facility] Comment on above: Performed By: #### B MP #### [facility] [address] [place] [address] Dr. Silver Harrison NEUT # 5.9 103/ul Normal 1.4-6.5 [facility] Comment on above: Performed By: #### B MP #### [facility] [address] [place] [address] Dr. Silver Harrison Neutrophils/100 WBC (Bld) 69.8 % Normal 43.0-75.0 [facility] Comment on above: Performed By: #### B MP #### [facility] [address] [place] [address] Dr. Silver Harrison Platelet mean volume (Bld) [Entitic vol] 10.0 fL Normal 9.5-13.5 [facility] Comment on above: Performed By: #### B MP #### [facility] [address] [place] [address] Dr. Silver Harrison PLT 180 103/ul Normal 150-450 [facility] Comment on above: Performed By: #### B MP #### [facility] [address] [place] [address] Dr. Silver Harrison RBC 2.70 106/ul Critically low 4.20-5.40 [facility] Comment on above: Performed By: #### B MP #### [facility] [address] [place] [address] Dr. Silver Harrison WBC 8.4 103/ul Normal 4.0-11.0 [facility] Comment on above: Performed By: #### B MP #### [facility] [address] [place] [address] Dr. Silver Harrison FERRITINon 06-24-2022 Ferritin [Mass/Vol] 535.0 ng/mL Critically high 8.0-252.0 [facility] Comment on above: Performed By: #### F ETIBC, FERR, VITAD #### [facility] [address] [place] [address] Dr. Silver Harrison IRON AND TIBCon 06-24-2022 % SATURATION 16.9 % Normal [facility] Comment on above: Performed By: #### F ETIBC, FERR, VITAD #### [facility] [address] [place] [address] Dr. Silver Harrison Iron [Mass/Vol] 31.0 ug/dL Critically low 50.0-170.0 [facility] Comment on above: Performed By: #### F ETIBC, FERR, VITAD #### [facility] [address] [place] [address] Dr. Silver Harrison TIBC DIRECT 183.0 ug/dL Critically low 250.0-450. 0 [facility] Comment on above: Performed By: #### F ETIBC, FERR, VITAD #### [facility] [address] [place] [address] Dr. Silver Harrison MAGNESIUMon 06-24-2022 Magnesium [Mass/Vol] 2.3 mg/dL Normal 1.8-2.4 [facility] Comment on above: Performed By: #### U SUNITA, MG, RENAL #### [facility] [address] [place] [address] Dr. Silver Harrison RENAL FUNCTION PANELon 06-24 Albumin [Mass/Vol] 2.5 g/dL Critically low 3.4-5.0 [facility] Comment on above: Performed By: #### U SUNITA, MG, RENAL #### [facility] [address] [place] [address] Dr. Silver Harrison Calcium [Mass/Vol] 8.4 mg/dL Critically low 8.5-10.1 [facility] Comment on above: Performed By: #### U SUNITA, MG, RENAL #### [facility] [address] [place] [address] Dr. Silver Harrison Chloride [Moles/Vol] 107 mmol/L Normal 98-107 [facility] Comment on above: Performed By: #### U SUNITA, MG, RENAL #### [facility] [address] [place] [address] Dr. Silver Harrison CO2 [Moles/Vol] 24.2 mmol/L Normal 21.0-32.0 [facility] Comment on above: Performed By: #### U SUNITA, MG, RENAL #### [facility] [address] [place] [address] Dr. Silver Harrison Creatinine [Mass/Vol] 4.38 mg/dL Critically high 0.55-1.02 [facility] Comment on above: Performed By: #### U SUNITA, MG, RENAL #### [facility] [address] [place] [address] Dr. Silver Harrison EGFR-AF CITIZEN OF [place] 12 mL/min/1.73m2 Critically low >=60 [facility] Comment on above: Performed By: #### U SUNITA, MG, RENAL #### [facility] [address] [place] [address] Dr. Silver Harrison EGFR-NON AF CITIZEN OF [place] 10 mL/min/1.73m2 Critically low >=60 [facility] Comment on above: Performed By: #### U SUNITA, MG, RENAL #### [facility] [address] [place] [address] Dr. Silver Harrison Glucose [Mass/Vol] 55 mg/dL Critically low 74-106 [facility] Comment on above: Performed By: #### U SUNITA, MG, RENAL #### [facility] [address] [place] [address] Dr. Silver Harrison Phosphate [Mass/Vol] 6.0 mg/dL Critically high 2.6-4.7 [facility] Comment on above: Performed By: #### U SUNITA, MG, RENAL #### [facility] [address] [place] [address] Dr. Silver Harrison Potassium [Moles/Vol] 4.3 mmol/L Normal 3.5-5.1 [facility] Comment on above: Performed By: #### U SUNITA, MG, RENAL #### [facility] [address] [place] [address] Dr. Silver Harrison Sodium [Moles/Vol] 142 mmol/L Normal 136-145 [facility] Comment on above: Performed By: #### U SUNITA, MG, RENAL #### [facility] [address] [place] [address] Dr. Silver Harrison Urea nitrogen [Mass/Vol] 55.0 mg/dL Critically high 7.0-18.0 [facility] Comment on above: Performed By: #### U SUNITA, MG, RENAL #### [facility] [address] [place] [address] Dr. Silver Harrison URIC ACID SERUMon 06-24-2022 Urate [Mass/Vol] 7.7 mg/dL Critically high 2.6-6.0 [facility] Comment on above: Performed By: #### U SUNITA, MG, RENAL #### [facility] [address] [place] [address] Dr. Silver Harrison VITAMIN D 25 OHon 06-24-2022 VIT D 25-OH 29.0 ng/mL Normal [facility] Comment on above: Performed By: #### F ETIBC FERR, VITAD #### [facility] [address] [place] [address] Dr. Silver Harrison VIT D RANGES SEE BELOW Normal [facility] Comment on above: Result Comment: <20 ng/mL Vit D deficient 20 - <30 ng/mL Vit D insufficient 30 - 100 ng/mL Vit D sufficient >100 ng/mL Potential Toxicity Performed By: #### F ETIBC, FERR, VITAD #### [facility] [address] [place] [address] Dr. Silver Harrison BASIC MET PANEL W/GFRon 05-28 Calcium [Mass/Vol] 8.0 mg/dL Low (8.6 - 10.6) [facility] Comment on above: Order Comment: STAT FACILITY: [facility] [facility] [id number] Performed By: #### C HEM-B, T20 #### [place] [facility] [address] [place], [address] Chloride [Moles/Vol] 112 mmol/L High (98 - 107) [facility] Comment on above: Order Comment: STAT FACILITY: [facility] [id number] Performed By: #### C HEM-B, T20 #### [place] [facility] [address] [place], [address] CO2 [Moles/Vol] 19 mmol/L Low (22 - 30) [facility] Comment on above: Order Comment: STAT FACILITY: [facility] [id number] Performed By: #### C HEM-B, T20 #### [place] [facility] [address] [place], [address] Creatinine [Mass/Vol] 4.98 mg/dL High (0.52 - 1.04) [facility] Comment on above: Order Comment: STAT FACILITY: [facility] [facility] [id number] Performed By: #### C HEM-B, T20 #### [place] [facility] [address] [place], [address] GFR- AMER 10.3 ML/M1.7 Low (60.0 - 140.1) [facility] Comment on above: Order Comment: STAT FACILITY: [facility] [facility] [id number] Performed By: #### C HEM-B, T20 #### [place] [facility] [address] [place], [address] GFR-NON AFRIC-AMER 8.5 ML/M1.7 Low (60.0 - 115.8) [facility] Comment on above: Order Comment: STAT FACILITY: [facility] [facility] [id number] Performed By: #### C HEM-B, T20 #### [place] [facility] [address] [place], [address] Glucose [Mass/Vol] 104 mg/dL Normal (74 - 106) [facility] Comment on above: Order Comment: STAT FACILITY: [facility] [id number] Performed By: #### C HEM-B, T20 #### [place] [facility] [address] [place], [address] Potassium [Moles/Vol] 6.1 mmol/L Critically high (3. 5 - 5.1) [facility] Comment on above: Order Comment: STAT FACILITY: [facility] [id number] Result Comment: CRIT ICAL RESULT REPEATED AND REPORTED TO: LISA APONTEIER @ 11:50 AM 06/15/2022 RP Performed By: #### C HEM-B, T20 #### [place] [facility] [address] [place], [address] Sodium [Moles/Vol] 142 mmol/L Normal (137 - 145) [facility] Comment on above: Order Comment: STAT FACILITY: [facility] [id number] Performed By: #### C HEM-B, T20 #### [place] [facility] [address] [place], [address] Urea nitrogen [Mass/Vol] 59 mg/dL High (7 - 17) [facility] Comment on above: Order Comment: STAT FACILITY: [facility] [id number] Performed By: #### C HEM-B, T20 #### [place] [facility] [address] [place], [address] CBC NO DIFFon 06-15-2022 Hematocrit (Bld) [Volume fraction] 28.5 % Low (37.0 - 47.0) [facility] Comment on above: Performed By: #### C HEM-B, T20 #### [place] [facility] [address] [place], [address] Hemoglobin (Bld) [Mass/Vol] 8.8 g/dL Low (12.0 - 16.0) [facility] Comment on above: Performed By: #### C HEM-B, T20 #### [place] [facility] [address] [place], [address] MCH (RBC) [Entitic mass] 30.0 pg Normal (27.0 - 33.0) [facility] Comment on above: Performed By: #### C HEM-B, T20 #### [place] [facility] [address] [place], [address] MCHC (RBC) [Mass/Vol] 30.9 g/dL Normal (30.0 - 37.0) [facility] Comment on above: Performed By: #### C HEM-B, T20 #### [place] [facility] [address] [place], [address] MCV (RBC) [Entitic vol] 97.3 fL Normal (81.0 - 99.0) [facility] Comment on above: Performed By: #### C HEM-B, T20 #### [place] [facility] [address] [place], [address] PLT 151 x10^3ul Normal (130 - 400) [facility] Comment on above: Performed By: #### C HEM-B, T20 #### [place] [facility] [address] [place], [address] RBC 2.93 x10^6ul Low (4.20 - 5.40) [facility] Comment on above: Performed By: #### C HEM-B, T20 #### [place] [facility] [address] [place], [address] RDW-SD 44.6 fl Normal (37.0 - 49.0) [facility] Comment on above: Performed By: #### C HEM-B, T20 #### [place] [facility] [address] [place], [address] WBC 11.09 x10^3ul High (3.80 - 10.60) [facility] Comment on above: Performed By: #### C HEM-B, T20 #### [facility] [address] [place], [address] MG MAMM SCREEN MOIRA W CADon 0 01-19-2022 MG MAMM SCREEN MOIRA W CAD Patient: ESSENCE CASTORENA Exam Date: 01/19/2022 : 1950 Gender:F Ordering : DR CHRISTOPHER MANN M.D. Admission #: [id number] Family : Order #: [id number] CLICK HERE TO VIEW EXAM RADIOLOGY REPORT [...] pancreatic cancer at age 67. LOCATION: [facility] BREAST COMPOSITION: Extremely dense, which lowers the [...] Leon MD on 01/19/2022 at 12:12 Normal [facility] Coding Summary.on 01-06-2019 Coding Summary. CODING DATE: 019 FINAL [facility] STATUS: Home (Routine DC) PAYOR: Medicare APC DESCRIPTION 5733 Level 3 Minor Procedures ADMIT DX: REASON FOR VISIT DX: H61.23 Impacted cerumen, bilateral FINAL DX: PRINCIPAL: H61.23 Impacted cerumen, bilateral SECONDARY: H90.0 Conductive hearing loss, bilateral I25.10 Atherosclerotic heart disease of [place] coronary artery without angina pectoris I12.9 Hypertensive chronic kidney disease with stage 1 through stage 4 chronic kidney disease, or unspecified chronic kidney disease E11.22 Type 2 diabetes mellitus with diabetic chronic kidney disease N18.3 Chronic kidney disease, stage 3 (moderate) F41.9 Anxiety disorder, unspecified Z79.4 [facility]CI (current) use of insulin PYMT PROC APC STAT DESCRIPTION DOCTOR NAME DATE 5732 S Removal impacted cerumen Emanuel Hartley DO 01/04/2019 requiring instrumentation, unilateral 50 Bilateral Procedure NOTE: The code number assigned matches the documented diagnosis and / or procedure in the patient's chart. However, the narrative phrase printed from the coding software may appear abbreviated, or result in slightly different terminology. Coded By: Scarlett Gomez Date Saved: 01/06/2019 08:21 am Normal [facility] Main OR Intraoperative Recor don 01-05-2019 Main OR Intraoperative Record IntraOp Document Type FT Summary Primary Physician: Emanuel Hartley DO Finalized Date/Time: 01/05/19 12:31:16 Pt. Name: ESSENCE CASTORENA Aleta Schmidt./Sex: 1950 Female Med Rec #: [id number] Physician: Emanuel Hartley DO Financial #: [id number] Pt. Type: A Room/Bed: [address] [address] Admit/Disch: 01/04/19 13:05:00 - 01/04/19 14:15:00 Institution: [...] 2 Entry 3 Case Attendee Emanuel Hartley DO RN, Meme Armando CST, Carleen Gill Role Performed Surgeon - Primary Lumber Marker - Primary Scrub - Primary Time In 01/04/19 13:44:00 01/04/19 13:44:00 01/04/19 13:44:00 Time Out 01/04/19 14:02:00 01/04/19 14:02:00 01/04/19 14:02:00 Procedure MYRINGOTOMY W/ MYRINGOTOMY W/ MYRINGOTOMY W/ INSERTION OF INSERTION OF INSERTION OF TUBES(Bilateral) TUBES(Bilateral) TUBES(Bilateral) Comments Last Modified By: Mark RN, Brooklyn Flores RN, Brooklyn Flores RN, Brooklyn Sandhu 01/04/19 17:06:00 01/04/19 17:06:00 01/04/19 17:06:00 Perioperative Protocols FT Pre-Care [...] Last Modified By: Meme Jimenez RN 01/05/19 12:22:04 Post-Care Text: The patient [...] taken back to [facility] for discharge. 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 Normal [facility] Inpatient Patient Summaryon 01-04-2019 Inpatient Patient Summary [facility] Clinical Discharge Instructions PERSON INFORMATION Name: ESSENCE CASTORENA PHYSICIANS Admitting Physician: Emanuel Hartley DO Attending Physician: Emanuel Hartley DO PCP: ALDA MITCHELL DO Discharge Diagnosis: Cerumen debris on tympanic membrane; Conductive hearing loss of both ears Comment: PATIENT EDUCATION INFORMATION Instructions: Medication Leaflets: Follow up: With: Address: When: Emanuel Hartley [address] [place], [place] [id number] [phone] Business (1) MEDICATION LIST Comment: Normal [facility] Operative Reporton 9 Operative Report Date of Surgery: 01/04/2019 SURGEON: Emanuel Hartley D.O. PREOPERATIVE DIAGNOSIS: 1. [...] brought to the Operating Room Suite at [facility], at which time she was placed [...] Surgical Department in stable and satisfactory condition. Emanuel Hartley D.O. aek Dictated: 01/04/2019 #[id number] Typed: 01/04/2019 #[id number] cc: Emanuel Hartley D.O. [facility] Comment on above: Result Comment: Elec tronically Signed By: Emanuel Hartley DO\.br\Date and Time Signed: 01/04/19 15:25 EDT Operative Report Patient: MIGUEL CASTORENA Age: 68 years Sex: Female : 1950 Associated Diagnoses: None Author: Emanuel Hartley DO Postoperative Information Preoperative Diagnosis: Bilateral cerumen impaction Bilateral conductive hearing loss. Postoperative Diagnosis: Same. Performed by: Emanuel Hartley DO. Estimated Blood Loss: 0 ml. Complications: None. Bilateral ear exam with removal of cerumen impaction Anesthesia type: local. Normal [facility] Comment on above: Result Comment: Elec tronically Signed By: Emanuel Hartley DO\.br\Date and Time Signed: 01/04/19 14:09 EDT Patient Education - Texton 0 01-04-2019 Patient Education - Text [facility] Vital Signs Date Time Vital Sign Value Performing Clinician Facility 03-23-2023 14:06-0500 Diastolic blood pressure 80 mm[Hg] Danii Rodriguez MD Work Phone: [facility] 03-23-2023 14:06-0500 Heart rate 76 /min Danii Rodriguez MD Work Phone: [facility] 03-23-2023 14:06-0500 Systolic blood pressure 132 mm[Hg] Danii Rodriguez MD Work Phone: [facility] 02-05-2023 09:31-0400 Body temperature 98.2 [degF] MD Christopher Mann Work Phone: [facility] 02-05-2023 09:31-0400 Diastolic blood pressure 70 mm[Hg] MD Christopher Mann Work Phone: [facility] 02-05-2023 09:31-0400 Heart rate 72 /min MD Christopher Mann Work Phone: [facility] 02-05-2023 09:31-0400 Respiratory rate 18 /min MD Christopher Mann Work Phone: [facility] 02-05-2023 09:31-0400 SaO2% (BldA) [Mass fraction] 97 % MD Christopher Mann Work Phone: [facility] 02-05-2023 09:31-0400 Systolic blood pressure 130 mm[Hg] MD Christopher Mann Work Phone: [facility] 11-11-2022 16:12-0400 Diastolic blood pressure 68 mm[Hg] Tseringarlet Sandhu [place] Work Phone: [facility] [address] DO Work Phone: 11-11-2022 16:12-0400 Heart rate 84 /min Christopher Sandhu Johnathan Work Phone: [facility] 250 DO Work Phone: 11-11-2022 16:12-0400 Systolic blood pressure 122 mm[Hg] Tseringarlet Mendiolaa Work Phone: [facility] [address] DO Work Phone: 07-31-2022 19:37-0400 Diastolic blood pressure 65 mm[Hg] MD Christopher Mann Work Phone: [facility] 07-31-2022 19:37-0400 Heart rate 78 /min MD Christopher Mann Work Phone: [facility] 07-31-2022 19:37-0400 Respiratory rate 20 /min MD Christopher Mann Work Phone: [facility] 07-31-2022 19:37-0400 SaO2% (BldA) [Mass fraction] 98 % MD Christopher Mann Work Phone: [facility] 07-31-2022 19:37-0400 Systolic blood pressure 142 mm[Hg] MD Christopher Mann Work Phone: [facility] 07-31-2022 15:05-0400 Body height 162.56 cm MD Christopher Mann Work Phone: [facility] 07-31-2022 15:05-0400 Body temperature 97.6 [degF] MD Christopher Mann Work Phone: [facility] 07-31-2022 15:05-0400 Body weight 106.14 kg MD Christopher Mann Work Phone: [facility] 07-31-2022 10:41-0400 Body temperature 98.4 [degF] MD Christopher Mann Work Phone: [facility] 07-31-2022 10:41-0400 Body weight 109 kg MD Christopher Mann Work Phone: [facility] 07-31-2022 10:41-0400 Diastolic blood pressure 68 mm[Hg] MD Christopher Mann Work Phone: [facility] 07-31-2022 10:41-0400 Heart rate 74 /min MD Christopher Mann Work Phone: [facility] 07-31-2022 10:41-0400 Respiratory rate 20 /min MD Christopher Mann Work Phone: [facility] 07-31-2022 10:41-0400 SaO2% (BldA) [Mass fraction] 97 % MD Christopher Mann Work Phone: [facility] 07-31-2022 10:41-0400 Systolic blood pressure 136 mm[Hg] MD Christopher Mann Work Phone: [facility] 07-14-2022 17:20-0400 Body height 160.02 cm Essie Merlyn Other [facility] [employer] Other 07-14-2022 17:20-0400 Diastolic blood pressure 70 mm[Hg] Essie Merlyn Other [facility] [employer] Other 07-14-2022 17:20-0400 Respiratory rate 20 /min Essie Merlyn Other [place] Other 07-14-2022 17:20-0400 SaO2% (BldA) [Mass fraction] 96 % Essie Merlyn Other [place] Other 07-14-2022 17:20-0400 Systolic blood pressure 153 mm[Hg] Essie Merlyn Other [place] Other 07-01-2022 09:42-0500 Body temperature 98.1 [degF] MD Christopher Mann Work Phone: [facility] 07-01-2022 09:42-0500 Diastolic blood pressure 71 mm[Hg] MD Christopher Mann Work Phone: [facility] 07-01-2022 09:42-0500 Heart rate 68 /min MD Christopher Mann Work Phone: [facility] 07-01-2022 09:42-0500 Respiratory rate 18 /min MD Christopher Mann Work Phone: [facility] 07-01-2022 09:42-0500 SaO2% (BldA) [Mass fraction] 96 % MD Christopher Mann Work Phone: [facility] 07-01-2022 09:42-0500 Systolic blood pressure 134 mm[Hg] MD Christopher Mann Work Phone: [facility] 07-01-2022 09:27-0500 Body height 162.56 cm MD Christopher Mann Work Phone: [facility] Encounters Encounter Date Encounter Type Care Provider Facility Start: 03-23-2023 End: 03-23-2023 ambulatory [facility] Ambulatory Start: 03-23-2023 End: 03-23-2023 Office outpatient visit 15 minutes Danii Rodriguez MD Work Phone: [facility] Comment on above: Atherosclerosis of n ative coronary artery of [place] heart without angina pectoris (Primary Dx); Chest discomfort; Essential hypertension, benign; Mixed hyperlipidemia; Dialysis patient (CMS/HCC); Cerebrovascular accident (CVA), unspecified mechanism (CMS/HCC) Start: 02-05-2023 ambulatory Essence Alicea Facility:[facility] Start: 02-05-2023 End: 02-05-2023 ambulatory MD Christopher Mann Work Phone: [facility] Work Phone: Start: 02-05-2023 End: 02-05-2023 Registered Recurring MD Christopher Mann Work Phone: [facility] Work Phone: Start: 11-11-2022 Office outpatient vi sit 25 minutes Christopher Mann Work Phone: [facility] 250 DO Work Phone: Start: 11-11-[address] Danii Rodriguez Facility: Start: 09-07-2022 End: 09-07-[address] CHRISTOPHER MANN Facility:[facility] Start: 08-04-2022 ambulatory Danii Rodriguez Faci lity:[id number] Start: 08-03-2022 ambulatory Danii [place] lity:[id number] Start: 08-02-2022 End: 08-05-2022 Evaluation and management of inpatient Christopher Mann [facility] [facility] Start: 08-02-2022 ambulatory Danii Rodriguez Faci lity:[id number] Start: 08-01-[address] Danii Rodriguez Facility:[id number] Start: 08-01-2022 ambulatory Danii Rodriguez Faci lity:[id number] Start: 07-31-2022 Evaluation and manag ement of inpatient MD Christopher Mann Work Phone: [facility] [place] [facility] Work Phone: Start: 07-31-2022 Registered Recurring MD Christopher Mann Work Phone: [facility] Work Phone: Start: 07-31-2022 End: 07-31-[address] CHRISTOPHER MANN Facility:H1 Start: 07-29-2022 End: 07-29-[address] CHRISTOPHER MANN Facility:H1 Start: 07-24-2022 End: 07-24-[address] CHRISTOPHER MANN Facility:H1 Start: 07-21-2022 End: 07-21-2022 ambulatory Essie Merlyn Other [place] Other Start: 07-21-2022 Telephone encounter Essie Merlyn [facility] Start: 07-20-2022 Telephone encounter Essie Merlyn [facility] Start: 07-20-2022 End: 07-20-2022 ambulatory ESSIE MERLYN [place] Other Start: 07-17-2022 End: 07-17-[address] CHRISTOPHER MANN Facility:H1 Start: 07-14-2022 End: 07-14-2022 ambulatory Essie Merlyn Other [place] Other Start: 07-14-2022 Office outpatient ne w 45 minutes Essie Merlyn [facility] Start: 07-03-2022 End: 07-03-[address] ARTURO GUO . Facility:H1 Start: 07-01-2022 End: 07-01-2022 ambulatory MD Christopher Mann Work Phone: [facility] Work Phone: Start: 07-01-2022 End: 07-01-2022 Registered Recurring MD Christopher [facility]: Start: 06-24-2022 End: 06-24-[address] CHRISTOPHER MANN Facility:H1 Start: 01-19-2022 End: 01-20-[address] CHRISTOPHER MANN Facility:H1 Procedures Date Procedure Procedure Detail Performing Clinician Start: 01-29-2023 Mammography Danii phillips MD Work Phone: Start: 07-31-2022 Plain chest X-ray MD James Mann Work Phone: Appendectomy Christopher Edson [place] Work Phone: Hysterectomy Christopher Edson Johnathan Work Phone: Operative procedure on knee Tseringarlet Edson Johnathan Work Phone: Total colonoscopy Christopher Sandhu Al da Work Phone: Plan of Treatment Date Care Activity Detail Author Start: 03-28-2024 End: 03-28-2024 Patient encounter procedure 03/28/2024 2:00 PM EST Office Visit [facility] [address] [facility] [address] [place] [address] Danii Rodriguez MD [address] [facility] 2, [place] [address] [place] [address] [facility] Start: 01-30-2024 Screening for malignant neoplasm of breast Mammogram [facility] Start: 03-23-2023 FUV, Provider: Danii Rodriguez, Status: Pen, Time: 2:20 PM FUV, Provider: Danii Rodriguez, Status: Pen, Time: 2:20 PM [facility] 250 DO Work Phone: Start: 12-25-2022 Influenza vaccination Influenza Vaccine (#1) [facility] Start: 07-31-2022 Bacteria identified in Urine by Culture [facility] Start: 11-19-1999 Zoster Vaccines (1 of 2) Zoster Vaccines (1 of 2) [facility] Start: 11-19-1971 DTaP/Tdap/Td Vaccines (1 - Tdap) DTaP/Tdap/Td Vaccines (1 - Tdap) [facility] Start: 11-19-1967 Diabetes mellitus screening Diabetes Screening [facility] Start: 11-19-1967 Hepatitis C screening Hepatitis C Screening [facility] Start: 11-19-1955 Pneumococcal Vaccine: 65+ Years (1 - PCV) Pneumococcal Vaccine: 65+ Years (1 - PCV) [facility] Start: 05-21-1950 COVID-19 Vaccine (#1) COVID-19 Vaccine (#1) [facility] Start: 1950 Lipid panel Lipid Panel [facility] Start: 1950 Screening for malignant neoplasm of colon [facility] Start: 1949 Yearly Adult Physical Yearly Adult Physical [facility] Immunizations Immunization Date Immunization Notes Care Provider Fa cility 05-03-2020 COVID-19 Manjinder Gonzalez (Pfizer) MD Christopher Mann Work Phone: [facility] 04-15-2020 COVID-19 Manjinder Gonzalez (Pfizer) MD Christopher Mann Work Phone: [facility] Payers Date Payer Category Payer Private Health Insurance [id number] 2022 Self-pay [id number] 2017 Medicaid MEDICAID MEDICAI D [id number] 2017-Present [address] [place] [address] [id number] 1959 Medicaid [id number] 1959 Medicare [id number] 1949 Unknown [id number] 2.16.840.1.711768.3.579.2.3 56 1949 Unknown [id number] 2.16.840.1.680521.3.579.2.3 56 1949 Unknown [id number] 2.16.840.1.857412.3.579.2.3 56 1949 Unknown [id number] 2.16.840.1.805594.3.579.2.3 56 1949 Unknown [id number] 2.16.840.1.161893.3.579.2.3 56 1949 Unknown [id number] 2.16.840.1.893207.3.579.2.5 93 1949 Unknown [id number] 2.16.840.1.660936.3.579.2.5 93 1949 Unknown [id number] 2.16.840.1.015315.3.579.2.5 93 1949 Unknown [id number] 2.16.840.1.429360.3.579.2.5 93 1949 Unknown [id number] 2.16.840.1.189258.3.579.2.5 93 1949 Unknown [id number] 2.16.840.1.942823.3.579.2.5 93 1949 Unknown [id number] 2.16.840.1.845867.3.579.2.5 93 1949 Unknown [id number] 2.16.840.1.403717.3.579.2.5 93 1949 Unknown [id number] 2.16.840.1.207339.3.579.2.5 93 1949 Unknown [id number] 2.16.840.1.393708.3.579.2.5 93 1949 Unknown [id number] 2.16.840.1.563873.3.579.2.3 56 1949 Unknown [id number] 2.16.840.1.705227.3.579.2.3 56 1949 Unknown [id number] 2.16.840.1.181436.3.579.2.1 244 Unknown [facility] [id number] Unknown Unknown [id number] 2.16.840.1.546908.3.579.2.5 31 Unknown [id number] 2.16.840.1.768615.3.579.2.5 31 Social History Date Type Detail Facility Start: 07-01-2022 End: 03-23-2023 Tobacco smoking status NHIS Ex-smoker (finding) [facility] Start: 1950 Sex Assigned At Female [facility] Start: 03-23-2023 Sex Assigned At [facility] [employer] Other Start: 03-23-2023 Consumes alcohol occasionally Consumes alcohol occasionally [facility] 250 DO Work Phone: History of tobacco use Current smoker [facility] Work Phone: History of tobacco use [facility] Work Phone: Start: 03-23-2023 Tobacco use and exposure Smokeless tobacco non-user [facility] Work Phone: Start: 03-23-2023 Alcohol intake Ex-drinker (finding) [facility] Work Phone: Start: 03-19-2023 Alcohol Comment occasional [facility] Work Phone: Start: 1950 Sex Assigned At Not on file [facility] Work Phone: Start: 03-13-2023 End: 03-23-2023 Exposure to SARS-CoV-2 (event) Not sure [facility] Medical Equipment Procedure Code Equipment Code Equipment Origin al Text Equipment Identifier Dates Phacoemulsification of cataract with intraocular lens implantation Posterior-chamber intraocular lens, pseudophakic ([id number] FDA Start: 04-10-2021 Phacoemulsification of cataract with intraocular lens implantation Posterior-chamber intraocular lens, pseudophakic ()[id number] FDA Start: 05-22-2021 Clinical Notes 07-01-2022 to 03-23-2023 Danii Rodriguez MD - 03/23/2023 2:20 PM ESTPatient Instructions Note Date & Type Note Facility 03-23-2023 History of Present illness Narrative Subjective Essence Castorena is a 72 y.o. female Chief Complaint Follow-up HPI Patient is here for follow-up continue management for history of coronary artery disease with remote PCI in [place], hypertension, hyperlipidemia. Patient is a resident of a local long term. She had dense left-sided hemiplegia. She denies any chest pain but reports some mild shortness of breath since the last time I saw her. She has limited exercise tolerance. She has been stable cardiac cifuentes. Assessment 1. Coronary artery disease prior intervention in [place] detail is lacking. Recent evaluation of atypical chest pain. Stress test and echocardiogram appears to be reassuring 2. Chronic kidney disease on hemodialysis 3. Hypertension controlled 4. Hyperlipidemia on treatment 5. Diabetes mellitus 6. History of stroke with left-sided hemiplegia almost wheelchair-bound 7. retirement resident 8. Intermittent episode of hemodialysis associated [...] times a day., Disp: , Rfl: HYDROcodone-acetaminophen ([place]) 5-325 mg tablet, Take 1 tablet by [...] Disp: , Rfl: Assessment/Plan 1. Atherosclerosis of [place] coronary artery of [place] heart without angina pectoris Follow Up In Cardiology 2. Chest discomfort Follow Up In Cardiology 3. Essential hypertension, benign 4. Mixed hyperlipidemia 5. Dialysis patient (CMS/HCC) 6. Cerebrovascular accident (CVA), unspecified mechanism (CMS/HCC) documented in this encounter [facility] Work Phone: 03-23-2023 Instructions Shannan York CMA [...] of your visit. documented in this encounter [facility] Work Phone: 07-31-2022 Progress note Note Date/Time July 31, 2022 11:02[facility] at [address] [address] Hem/Onc Follow Up Note - OP Signed Patient: Amparo Castorena MR#: [id number] : 1950 Acct:[id number] Age/Sex: 71 / F Type: REG RCR Copies to: MD Christopher Palafox MD~ Date of Service: 07/31/2022 Time of Service: 11:00 - Assessment & Plan (1) Anemia in chronic kidney disease (CKD) Plan: Anemia of chronic kidney disease CKD-IV on dialysis. Previously seen at [facility] and transferred care to [facility] as of 07/01/22 now on dialysis, gets epo agents through dialysis. Is awaiting fistula for dialysis, this will be done in [place] Previous anemia work-up completed prior to transfer [...] with a history of CVA, diabetes, PVD, [place] x 2, cataracts, hyperlipidemia, HTN, GERD, and anemia of CKD. Surgical history includes hysterectomy, carpal tunnel surgery and bilateral arthroscopic knee surgery. She denies any personal or family history of cancer. She is referred by Dr. Sanchez Jean at [facility] to establish care for her anemia from CKD. She recently started Aranesp weekly and is in the process of getting dialysis fistula placed to start dialysis. Most recent labs reveal hgb 8.1, wbc 13.9, platelets 135,000, anc 10.8. Creatinine 4.9 with GFR 9, calcium 8.0. She is transferring care as she resides at [facility] in [place] and this is muchcloser for her and [...] for coordination of care (as documented) and rbli-[id number] counseling of patient and/or family. [facility] - Medical History Medical History: Medical [...] calcium 500 mg-D3 400 unit-K 15 mcg-folic [id number] tablet 1 tab PO DAILY 03/28/21 [History [...] bisacodyl 10 mg rectal suppository 10 mg [place] DAILY PRN Constipation 07/01/22 [History Confirmed 07/31/22] [...] by Tex Kim II, DO> 07/31/22 1105 [facility] Work Phone: 1(938) 707-904203-21-2023 Evaluation note* Encounter Date Diagnosis Assessment Notes [...] the acarbose due to the advanced CKD. [place] Other 03-08-2023 Consult note Author Essence Alicea [facility] July 01, 2022 1:16pm Note Date/Time July 01, 2022 9:47 am [facility] at [address] [address] Hem/Onc Consult Note - OP Signed Patient: Amparo Castorena MR#: [id number] : 1950 Acct:[id number] Age/Sex: 71 / F Type: REG RCR Copies to: MD Christopher Palafox MD~ HPI Date/Time of Service: Date of Service: 07/01/2022 Time of Service: 09:46 Referring Provider/PCP: Referring Provider: Sanchez Jean MD PCP: Christopher Mann MD - History of Present Illness Chief Complaint: Patient is transferring care from [facility] for anemia. Resides at [facility]. Outside labs. HPI: Amparo is a 71-year-old female with a history of CVA, diabetes, PVD, FL x 2, cataracts, hyperlipidemia, HTN, GERD, and anemia of CKD. Surgical history includes hysterectomy, carpal tunnel surgery and bilateral arthroscopic knee surgery. She denies any personal or family history of cancer. She is referred by Dr. Sanchez Jean at [facility] to establish care for her anemia from CKD. She recently started Aranesp weekly and is in the process of getting dialysis fistula placed to start dialysis. Most recent labs reveal hgb 8.1, wbc 13.9, platelets 135,000, anc 10.8. Creatinine 4.9 with GFR 9, calcium 8.0. She is transferring care as she resides at [facility] in [place] and this is muchcloser for her and [...] fevers, chills, sweats, pain or other complaints. [facility] - Medical History Medical History: Medical [...] calcium 500 mg-D3 400 unit-K 15 mcg-folic [id number]-F-yvohbzso tablet 1 tab PO DAILY 03/28/21 [History [...] bisacodyl 10 mg rectal suppository 10 mg [place] DAILY PRN Constipation 07/01/22 [History Confirmed 07/01/22] [...] will start dialysis soon. Previously seen at [facility] and transferred care to [facility] as of 07/01/22 She is currently on Aranesp weekly, will clarify dose. She gets this at the long term. Is awaiting fistula for dialysis, this will be done in [place] Previous anemia work-up completed prior to transfer [...] for coordination of care (as documented) and wmne-sy-hkps counseling of patient and/or family. Dictated By: Essence Alicea APRN DD/ [id number] Signed By: <Electronically signed by ELLA Alicea> 07/01/22 1319 [facility] Work Phone: Evaluation noteNo assessment information available [facility] Work Phone: Evaluation [facility]No [facility] [employer] Other Evaluation note* Diagnosis Onset Date Resolution Status Anemia in chronic kidney disease (CKD) acute Anemia in chronic kidney disease (CKD) acute Atypical chest pain acute UTI (urinary tract infection) acute [facility] Work Phone: Evaluation note* Diagnosis Onset Date Resolution Status Anemia in chronic kidney disease (CKD) acute [facility] Work Phone: Evaluation note* Diagnosis Atherosclerosis of [place] coronary artery of [place] heart without angina pectoris- Primary Chest discomfort Other chest pain Essential hypertension, benign Mixed hyperlipidemia Dialysis patient (CMS/HCC) Renal dialysis status Cerebrovascular accident (CVA), unspecified mechanism ([facility]) documented in this encounter [facility] Work Phone: History general Narrative - Reported* [...] PVD (PERIPHERAL VASCULAR DISEASE ) Medical History [place] X2 Medical History CVA (CEREBRAL VASCULAR ACCIDENT) Surgical History Rt Knee Scope Surgical History Lt Knee Scope 1999 Surgical History Carpal Tunnel Surgical History Rt Hand - Tumor - benign Surgical History Tubal 1985 Surgical History Hyster 2004 Surgical History Heart Cath with Stents 09/2007 Surgical History FISTULA PLACEMENT IN RIGHT ARM 07/13/22 Hospitalization History see Surgery list [facility] [employer] Other History of Present illness Narrative* Patient is here for follow-up from recent hospitalization. She is accompanied by her daughter. Patient appears to be poor historian. Most of the information gathered from the daughter. I saw her during recent hospitalization for evaluation of atypical chest pain. Patient reported history of coronary artery disease prior intervention in [place]. Detail is lacking. She does have history [...] 1. Coronary artery disease prior intervention in [place] detail is lacking. Recent evaluation of atypical chest pain. Stress test and echocardiogram appears to be reassuring * 2. Chronic kidney disease on hemodialysis * 3. Hypertension controlled * 4. Hyperlipidemia on treatment * 5. Diabetes mellitus * 6. History of stroke with left-sided weakness and * 7. retirement resident * 8. Intermittent episode of hemodialysis [...] conservative management and the patient is DNR -[facility] 250 DO Work Phone: Progress note Author Tex Kim [facility] July 31, 2022 11:05am Note Date/Time July 31, 2022 11:0 2am [facility] [place] [address] Hem/Onc Follow Up Note - OP Signed Patient: Amparo Castorena MR#: [id number] : 1950 Acct:[id number] Age/Sex: 71 / F Type: REG RCR Copies to: MD Christopher Palafox MD~ Date of Service: 07/31/2022 Time of Service: 11:00 - Assessment & Plan (1) Anemia in chronic kidney disease (CKD) Plan: Anemia of chronic kidney disease CKD-IV on dialysis. Previously seen at [facility] and transferred care to [facility] as of 07/01/22 now on dialysis, gets epo agents through dialysis. Is awaiting fistula for dialysis, this will be done in [place] Previous anemia work-up completed prior to transfer [...] with a history of CVA, diabetes, PVD, FL x 2, cataracts, hyperlipidemia, HTN, GERD, and anemia of CKD. Surgical history includes hysterectomy, carpal tunnel surgery and bilateral arthroscopic knee surgery. She denies any personal or family history of cancer. She is referred by Dr. Sanchez Jean at [facility] to establish care for her anemia from CKD. She recently started Aranesp weekly and is in the process of getting dialysis fistula placed to start dialysis. Most recent labs reveal hgb 8.1, wbc 13.9, platelets 135,000, anc 10.8. Creatinine 4.9 with GFR 9, calcium 8.0. She is transferring care as she resides at [facility] in [place] and this is muchcloser for her and [...] for coordination of care (as documented) and ktae-jy-neyg counseling of patient and/or family. [facility] - Medical History Medical History: Medical [...] calcium 500 mg-D3 400 unit-K 15 mcg-folic [id number]-[id number]-K-[id number] tablet 1 tab PO DAILY 03/28/21 [History [...] bisacodyl 10 mg rectal suppository 10 mg [place] DAILY PRN Constipation 07/01/22 [History Confirmed 07/31/22] [...] by Tex Kim II, DO> 07/31/22 1105 [facility] Work Phone: Progress note Author Essence Alicea [facility] February 05, 2023 9:59am Note Date/Time February 05, 2023 9 :50am [facility] [place] [address] Hem/Onc Follow Up Note - OP Signed Patient: Amparo Castorena MR#: [id number] : 1950 Acct:[id number] Age/Sex: 72 / F Type: REG RCR Copies to: MD Christopher Palafox MD~ Date of Service: 02/05/2023 Time of Service: 09:49 - Assessment & Plan (1) Anemia in chronic kidney disease (CKD) Plan: Anemia of chronic kidney disease CKD-IV on dialysis. Previously seen at [facility] and transferred care to [facility] as of 07/01/22 now on dialysis, gets [...] with a history of CVA, diabetes, PVD, [place] x 2, cataracts, hyperlipidemia, HTN, GERD, and anemia of CKD. Surgical history includes hysterectomy, carpal tunnel surgery and bilateral arthroscopic knee surgery. She denies any personal or family history of cancer. She is referred by Dr. Sanchez Jean at [facility] to establish care for her anemia from CKD. She recently started Aranesp weekly and is in the process of getting dialysis fistula placed to start dialysis. Most recent labs reveal hgb 8.1, wbc 13.9, platelets 135,000, anc 10.8. Creatinine 4.9 with GFR 9, calcium 8.0. She is transferring care as she resides at [facility] in [place] and this is muchcloser for her and [...] for coordination of care (as documented) and qtlm-ph-taqh counseling of patient and/or family. [facility] - Medical History Medical History: Medical [...] calcium 500 mg-D3 400 unit-K 15 mcg-folic [id number]-[id number] tablet 1 tab PO DAILY 03/28/21 [History [...] bisacodyl 10 mg rectal suppository 10 mg [place] DAILY PRN Constipation 07/01/22 [History Confirmed 02/05/23] [...] <Electronically signed by ELLA Alicea> 02/05/23 0[facility] Work Phone: Reason for referral (narrative)* Consultation (Routine) - Authorized Specialty Diagnoses / Procedures Referred By Contac t Referred To Contact Cardiology Diagnoses Atherosclerosis of [place] coronary artery of [place] heart without angina pectoris Chest discomfort Procedures Follow Up In Cardiology Danii Rodriguez MD [address] [place] [address], [address] [address] Danii Rodriguez MD [address] [facility] 2, [address] [address] Referral ID Status Reason Start Date Expiration Date V isits Requested Visits Authorized [id number] Authorized 03/23/2023 03/22/2024 1 1 [facility] Work Phone: Summary Purpose Family History No Family History Records Found Relationship Condition Age at Onset Recorded Date/T jena Not Specified Hypertension Unknown Diabetes mellitus Unknown father Diabetes mellitus Unknown brother Coronary artery disease Unknown Unknown Family Member Name Dates Details Family history of diabetes m ellitus: Father, Brother(V18.0, Z83.3) Status:Active Family history of [...] section and content) DATE CREATED AUTHOR 01/06/2019 [facility] DATE CREATED AUTHOR AUTHOR'S ORGANIZ ATION 06/15/2022 [facility] DATE CREATED AUTHOR AUTHOR'S ORGANIZ ATION 08/26/2022 [facility] DATE CREATED AUTHOR AUTHOR'S ORGANIZ ATION 09/07/2022 [facility] [place] [facility] DATE CREATED AUTHOR AUTHOR'S ORGANIZ ATION 11/12/2022 [employer] DATE CREATED AUTHOR AUTHOR'S ORGANIZ ATION 03/10/2023 [facility] DATE CREATED AUTHOR AUTHOR'S ORGANIZ ATION 03/18/2023 [facility] DATE CREATED AUTHOR AUTHOR'S ORGANIZ ATION 03/25/2023 [facility] [employer] Teams (unrecognized sec tion and content) Team Status: Active Member Role Status Dates Christopher Mann MD Primary Care Provider Active Team Status: Active Member Role Status Dates Christopher Mann MD Primary Care Provider Active Essence Alicea APRN Attending Provider Sarah Jean MD Referring Provider Active Team Status: Active Member Role Status Dates ANGELES FrancoC Emergency Provider Active Christopher Mann MD Primary Care Provider Active Camila Young MD Admit Provider, Attending Provider Active [employer] Inspector Relationship Specialty Start Date End Date Christopher Mann MD [address] [facility] [address] [place] [address] PCP - General 11/11/22 Goals (unrecognized section [...] BE BASED ON THE PRIMARY CLINICAL RECORDS. [facility] [employer] provides no warranty or guarantee of the accuracy or completeness of information in this document.
[2023-06-21 08:40] LABS: Magnesium 1.9 mg/dL (1.8-2.4); Thyroid Stimulating Hormone 1.356 uIU/mL (0.358-3.740)
[2023-06-22 19:07] LABS: Thyroglobulin Antibody <1.0 IU/mL (0.0-0.9); Thyroid Peroxidase (TPO) Ab 11 IU/mL (0-34)
== END 2023-06-21 01:07 | disposition home or self-care (01) ==
LOC: LAB 01:06
PROVIDERS: PCP Family Medicine; Visit Provider Family Medicine
DX: R73.9 Hyperglycemia, unspecified (principal); E11.22 Type 2 diabetes mellitus with diabetic chronic kidney disease; N18.4 Chronic kidney disease, stage 4 (severe); I12.9 Hypertensive chronic kidney disease with stage 1 through stage 4 chronic kidney disease, or unspecified chronic kidney disease
CPT/HCPCS: 36415; 81001; 83735; 83880; 84443; 86376; 86800; 87086

== ENCOUNTER 2023-06-21 01:08 | Outpatient (REF) | payer MEDICARE, MEDICAID, SELFPAY ==
--- OUTSIDE RECORDS SUMMARY | 2023-06-21 01:13 | XMS_ITS | CCD ---
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 Name Role Phone MD Christopher Mann Primary Care Provider ELLA Alicea Attending Provider MD Sanchez Jean Referring Provider [phone] Essie Salas Unavailable MD Christopher Mann Primary Care Provider ELLA Alicea Attending Provider MD Sanchez Jean Referring Provider SAMIRA Moss Emergency Provider MD Camila Young Admit Provider MD Camila Young Attending Provider [phone] Danii Rodriguez Attending Unavailable Traboulssi Mourhaf Attending [...] Unavailable JOHNATHAN, DR WHITE Admitting Unavailable MERLYN, ESSEI Consulting Unavailable JOHNATHAN, DR WHITE Primary Care [...] Attending Unavailable JOHNATHAN, DR WHITE Admitting Unavailable [place], Rugen M Unavailable Unavailable Unavailable MD Christopher Mann Primary Care Provider [phone] ELLA Alicea Attending Provider MD Sanchez Jean [...] Translations: [cephalexin] Drug Allergy 3 Itching, Swelling [facility] (5 sources) Diclofenac; Translations: [diclofenac] Drug Allergy 3 Swelling [facility] (5 sources) miSOPROStol; Translations: [misoprostol] Drug Allergy 3 Swelling [facility] (5 sources) Cephalexin; Translations: [Keflex] Drug Allergy 6 reddened pruritic rash, Swelling, Itching [facility] (4 sources) Diclofenac / miSOPROStol Drug Allergy 3 [facility] (1 source) Diclofenac / miSOPROStol Drug Allergy 6 [facility] (1 source) Diclofenac / miSOPROStol; Translations: [Arthrotec TABS] Drug Allergy Hives, Itching, Rash [facility] ROLI 250 DO Work Phone: (1 source) shellfish, unspecified Allergy to substance (finding[facility] Work Phone: (2 sources) Shellfish; Translations: [SHELLFISH CONTAINING PRODUCTS] Propensity to adverse reactions 3 Nausea/vomiting [facility] Work Phone: (1 source) Diclofenac / miSOPROStol; Translations: [DICLOFENAC-MIS OPROSTOL] Drug Allergy 3 [facility] 3 Repository Medications Current Medications Medication Drug [...] times daily as needed for pain HYDROcodone-acetaminophen ([place]) 5-325 mg tablet Take 1 tablet by [...] 03-28-2021 End: 06-30-2022 Bisacodyl Active 10 MG AK Daily July 01, 2022 1:00am Calcium + [...] 2 tablets Orally Once a day Active Pinbvsd-M3-U-Fa-S27-N-Fp nerals (4 sources) Start: 03-28-2021 take 1 tablet by mouth once daily Tmnqvgw-P4-S-Fa-B12-C-M inerals Active 1 TAB PO Daily March 28, 2021 1:00am Start: 03-28-2021 take 1 tablet by haresh th once daily Jueovmk-H8-B-Ss-[id number]-[id number]-[id number]-Kabwkvnc Active 1 TAB PO Daily March 28, [...] % as directed Externally Active Epoetin Chris 67454 UNIT/ML (3 sources) Epoetin Chris 200 00 [...] 2021 1:00am take 1 capsule by mo [facility] three times daily gabapentin (Neurontin) 300 mg [...] 2022 10:54am take 2 tablets by mo [facility] every twelve hours Sodium Bicarbonate 650 MG [...] l admission (1 source) Lives in a longterm; Translations: [Person living in residential institution] Episodic [...] 11-11-2022 Follow-up visit Diagnoses/Problems Assessed Atherosclerosis of citizen [place] coronary artery without angina pectoris (414.01) (I25.10) Chest discomfort (786.59) (R07.89) Benign essential hypertension (401.1) (I10) Hyperlipidemia (272.4) (E78.5) Stroke (434.91) (I63.9) Dialysis patient (V45.11) (Z99.2) [facility] resident (V60.6) (Z59.3) Former smoker (V15.82) (Z87.891) Orders SocHx: Former smoker Tobacco Use Screening; Status:Complete; Done: [id number] Patient Instructions Please bring all medicines, vitamins, [...] of coronary artery disease prior intervention in [place]. Detail is lacking. She does have history [...] 1. Coronary artery disease prior intervention in [place] detail is lacking. Recent evaluation of atypical chest pain. Stress test and echocardiogram appears to be reassuring 2. Chronic kidney disease on hemodialysis 3. Hypertension controlled 4. Hyperlipidemia on treatment 5. Diabetes mellitus 6. History of stroke with left-sided weakness and 7. [facility] resident 8. Intermittent episode of hemodialysis associated [...] smoker (V15.82) (Z87.891) No illicit drug use [facility] resident (V60.6) (Z59.3) Review of Systems Constitutional: [...] habits an (more content not included)... Normal [employer] Tobacco Screening.on 023 Fall risk assessment a) No falls within the last year -[facility] [employer] 250 DO Work Phone: Tobacco use status [facility] b) No -[facility] [employer] 46 twila 250 DO Work Phone: Glucose Poct Glucometerson 0 08-05-2022 Glucose [Mass/Vol] 113 mg/dL Normal [facility] Comment on above: Result Comment: [place] om Glucose Reference Range is dependent on time and content of last meal. Glucose of more than 200 mg/dL in a nonstressed, ambulatory subject supports the diagnosis of Diabetes Mellitus. PERFORMED BY: [place] [address] PATHOLOGIST CEMENT STORAGE WORKER DANII HAYNES M.D. Performed By: #### B MP, CBC #### [address] Glucose [Mass/Vol] 108 mg/dL Normal [facility] Comment on above: Result Comment: [facility] Glucose Reference Range is dependent on time and content of last meal. Glucose of more than 200 mg/dL in a nonstressed, ambulatory subject supports the diagnosis of Diabetes Mellitus. PERFORMED BY: [place] [address] PATHOLOGIST CEMENT STORAGE WORKER DANII HAYNES M.D. Performed By: #### G LUMAMIE #### Point of Care testing , Renal Function Panelon 08-05 Albumin [Mass/Vol] 3.3 g/dL Low 3.5-5.7 [facility] Comment on above: Order Comment: pt wo uldnt let me retry to get the blood work Performed By: #### B MP, CBC #### [address] Anion gap [Moles/Vol] 13.9 mmol/L Normal 6.0-15.0 [facility] Comment on above: Order Comment: pt wo uldnt let me retry to get the blood work Performed By: #### B MP, CBC #### [place] [address] [place] Calcium [Mass/Vol] 8.6 mg/dL Normal 8.6-10.3 [facility] Comment on above: Order Comment: pt wo uldnt let me retry to get the blood work Performed By: #### B MP, CBC #### [place] [address] [place] Chloride [Moles/Vol] 98 mmol/L Normal 98-107 [facility] Comment on above: Order Comment: pt wo uldnt let me retry to get the blood work Performed By: #### B MP, CBC #### [facility] [address] CO2 [Moles/Vol] 26.3 mmol/L Normal 21.0-31.0 [facility] Comment on above: Order Comment: pt wo uldnt let me retry to get the blood work Performed By: #### B MP, CBC #### [facility] [address] Creatinine [Mass/Vol] 5.26 mg/dL Significan t change up 0.60-1.20 [facility] Comment on above: Order Comment: pt wo uldnt let me retry to get the blood work Performed By: #### B MP, CBC #### [facility] [address] [place] [address] [place] Creatinine Clr Calc Pharmacy 11.05 [facility] Comment on above: Order Comment: pt wo uldnt let me retry to get the blood work Result Comment: PERF ORMED BY: [place] [address] PATHOLOGIST CEMENT STORAGE WORKER DANII HAYNES M.D. Performed By: #### B MP, CBC #### [place] [address] [place] GFR/1.73 sq M.predicted MDRD (S/P/Bld) [Vol rate/Area] 8.165 mL/min/{1.73_m2} [facility] Comment on above: Order Comment: pt wo uldnt let me retry to get the blood work Performed By: #### B MP, CBC #### [facility] [address] [place] [address] [place] Glucose [Mass/Vol] 111 mg/dL High 70-100 [facility] Comment on above: Order Comment: pt wo uldnt let me retry to get the blood work Result Comment: [place] Glucose Reference Range is dependent on time and content of last meal. Glucose of more than 200 mg/dL in a nonstressed, ambulatory subject supports the diagnosis of Diabetes Mellitus. ADA recommended reference range Performed By: #### B MP, CBC #### [address] Phosphate [Mass/Vol] 5.3 mg/dL Normal 3.7-7.2 [facility] Comment on above: Order Comment: pt wo uldnt let me retry to get the blood work Performed By: #### B MP, CBC #### [address] Potassium [Moles/Vol] 4.2 mmol/L Normal 3.5-5.1 [facility] Comment on above: Order Comment: pt wo uldnt let me retry to get the blood work Performed By: #### B MP, CBC #### [address] Sodium [Moles/Vol] 134 mmol/L Low 136-145 [facility] Comment on above: Order Comment: pt wo uldnt let me retry to get the blood work Performed By: #### B MP, CBC #### [place] [address] [place] Urea nitrogen [Mass/Vol] 48 mg/dL High 7-25 [facility] Comment on above: Order Comment: pt wo uldnt let me retry to get the blood work Performed By: #### B MP, CBC #### [address] Glucose Poct Glucometerson 0 08-04-2022 Glucose [Mass/Vol] 118 mg/dL Normal [facility] Comment on above: Result Comment: [facility] Glucose Reference Range is dependent on time and content of last meal. Glucose of more than 200 mg/dL in a nonstressed, ambulatory subject supports the diagnosis of Diabetes Mellitus. PERFORMED BY: [place] [address] PATHOLOGIST CEMENT STORAGE WORKER DANII HAYNES M.D. Performed By: #### G LULS #### Point of Care testing , Glucose [Mass/Vol] 118 mg/dL Normal [facility] Comment on above: Result Comment: [facility] Glucose Reference Range is dependent on time and content of last meal. Glucose of more than 200 mg/dL in a nonstressed, ambulatory subject supports the diagnosis of Diabetes Mellitus. PERFORMED BY: [place] [address] PATHOLOGIST CEMENT STORAGE WORKER DANII HAYNES M.D. Performed By: #### G LULS #### Point of Care testing , Glucose [Mass/Vol] 136 mg/dL Normal [facility] Comment on above: Result Comment: [facility] Glucose Reference Range is dependent on time and content of last meal. Glucose of more than 200 mg/dL in a nonstressed, ambulatory subject supports the diagnosis of Diabetes Mellitus. PERFORMED BY: [place] [address] PATHOLOGIST CEMENT STORAGE WORKER DANII HAYNES M.D. Performed By: #### C #### [address] NM ping perf SPECT rest stron 08-04-2022 NM ping perf SPECT rest str [facility] Main [place] [address] [place] [address] Nuclear Medicine Report Signed Patient: Amparo Castorena MR#: [id number] 68 : 1950 Acct:[id number] Age/Sex: 71 / F ADM Date: 08/02/22 Loc: Room: [address] [place] [address] Type: ADM IN Attending Dr: Levy Ward MD Copies to: MD Jimbo Judd MD, [facility] Danii Rodriguez MD Ordering Provider: Danii [...] 08/04/22 1343 Dictated By: Jimbo Damon MD, [facility] 08/04/22 1247 Signed By: 08/04/22 1349 Normal [facility] Renal Function Panelon 08-04 Albumin [Mass/Vol] 3.0 g/dL Low 3.5-5.7 [facility] Comment on above: Performed By: #### C MP #### [facility] [address] [place] [address] [place] Anion gap [Moles/Vol] 13.5 mmol/L Normal 6.0-15.0 [facility] Comment on above: Performed By: #### C MP #### [facility] [address] [place] [address] [place] Calcium [Mass/Vol] 7.9 mg/dL Low 8.6-10.3 [facility] Comment on above: Performed By: #### C MP #### [facility] [address] [place] [id number] [place] Chloride [Moles/Vol] 97 mmol/L Low 98-107 [facility] Comment on above: Performed By: #### C MP #### [facility] [address] [place] [id number] [place] CO2 [Moles/Vol] 26.3 mmol/L Normal 21.0-31.0 [facility] Comment on above: Performed By: #### C MP #### [facility] [address] [place] [address] [place] Creatinine [Mass/Vol] 4.44 mg/dL Significan t change up 0.60-1.20 [facility] Comment on above: Performed By: #### C MP #### [place] [address] [place] Creatinine Clr Calc Pharmacy 13.53 Normal [facility] Comment on above: Result Comment: PERF ORMED BY: [place] [address] PATHOLOGIST CEMENT STORAGE WORKER DANII HAYNES M.D. Performed By: #### C MP #### [place] [address] [place] GFR/1.73 sq M.predicted MDRD (S/P/Bld) [Vol rate/Area] 10.006 mL/min/{1.73_m2} Normal [facility] Comment on above: Performed By: #### C MP #### [address] Glucose [Mass/Vol] 136 mg/dL High 70-100 [facility] Comment on above: Result Comment: [facility] Glucose Reference Range is dependent on time and content of last meal. Glucose of more than 200 mg/dL in a nonstressed, ambulatory subject supports the diagnosis of Diabetes Mellitus. ADA recommended reference range Performed By: #### C MP #### [address] Phosphate [Mass/Vol] 4.2 mg/dL Normal 3.7-7.2 [facility] Comment on above: Performed By: #### C MP #### [place] [address] [place] Potassium [Moles/Vol] 3.8 mmol/L Normal 3.5-5.1 [facility] Comment on above: Performed By: #### C MP #### [place] [address] [place] Sodium [Moles/Vol] 133 mmol/L Low 136-145 [facility] Comment on above: Performed By: #### C MP #### [place] [address] [place] Urea nitrogen [Mass/Vol] 36 mg/dL High 7-25 [facility] Comment on above: Performed By: #### C MP #### [facility] [address] [place] [address] STR cardiac stress/lexiscano n 08-04-2022 STR cardiac stress/lexiscan [facility] Main [place] [address] [place] [address] Cardiac Stress Test Signed Patient: Amparo Castorena MR#: [id number] 68 : 1950 Acct:[id number] Age/Sex: 71 / F ADM Date: 08/02/22 Loc: Room: [address] [place] [address] Type: ADM IN Attending Dr: Levy Ward [...] MD 08/04/22 1143 Signed By: 08/05/22 0802 [facility] Blood Cultureon 08-03-2022 Bacteria identified Cx Nom (Bld) NO GROWTH 5 DAYS PERFORMED BY: [place] [address] PATHOLOGIST CEMENT STORAGE WORKER DANII HAYNES M.D. [facility] Comment on above: Performed By: #### C UBLD #### [facility] [address] [place] [address] [place] Bacteria identified Cx Nom (Bld) NO GROWTH 5 DAYS PERFORMED BY: [place] [address] PATHOLOGIST CEMENT STORAGE WORKER DANII HAYNES M.D. Normal [facility] Comment on above: Performed By: #### C UBLD #### [address] Complete Blood Count Auto Di ffon 08-03-2022 Basophils (Bld) [#/Vol] 0.0 10*3/uL Normal 0.0-0.2 [facility] Comment on above: Result Comment: PERF ORMED BY: [place] [address] PATHOLOGIST CEMENT STORAGE WORKER DANII HAYNES M.D. Performed By: #### G LULS #### Point of Care testing , Basophils/100 WBC (Bld) 0.4 % Normal . [facility] Comment on above: Performed By: #### G LULS #### Point of Care testing , Eosinophils (Bld) [#/Vol] 0.3 10*3/uL Normal 0.0-0.45 [facility] Comment on above: Performed By: #### G LULS #### Point of Care testing , Eosinophils/100 WBC (Bld) 2.7 % Normal . [facility] Comment on above: Performed By: #### G LULS #### Point of Care testing , Erythrocyte distribution width (RBC) [Ratio] 14.8 % Normal 11.9-15.3 [facility] Comment on above: Performed By: #### G LULS #### Point of Care testing , Hematocrit (Bld) [Volume fraction] 25.9 % Low 34.0-46.4 [facility] Comment on above: Performed By: #### G LULS #### Point of Care testing , Hemoglobin (Bld) [Mass/Vol] 8.4 g/dL Low 11.8-15.4 [facility] Comment on above: Performed By: #### G LULS #### Point of Care testing , Lymphocytes (Bld) [#/Vol] 2.0 10*3/uL Normal 1.00-4.8 [facility] Comment on above: Performed By: #### G CAPRICE #### Point of Care testing , Lymphocytes/100 WBC (Bld) 19.0 % Normal . [facility] Comment on above: Performed By: #### G MARLOLS #### Point of Care testing , MCH (RBC) [Entitic mass] 29.6 pg Normal 24.7-34.3 [facility] Comment on above: Performed By: #### G LULS #### Point of Care testing , MCV (RBC) [Entitic vol] 91.1 fL Normal 80-100 [facility] Comment on above: Performed By: #### G MARLOLS #### Point of Care testing , Mean Corpuscular HGB Conc 32.5 g/dL Normal 32.0-35.0 [facility] Comment on above: Performed By: #### Ayo SELLERSLS #### Point of Care testing , Monocytes (Bld) [#/Vol] 0.9 10*3/uL High 0.0-0.8 [facility] Comment on above: Performed By: #### G MARLOLS #### Point of Care testing , Monocytes/100 WBC (Bld) 9.0 % Normal . [facility] Comment on above: Performed By: #### G MARLOLS #### Point of Care testing , Neutrophils (Bld) [#/Vol] 7.1 10*3/uL Normal 1.8-7.7 [facility] Comment on above: Performed By: #### G MARLOLS #### Point of Care testing , Neutrophils/100 WBC (Bld) 68.9 % Normal . [facility] Comment on above: Performed By: #### G MARLOLS #### Point of Care testing , NRBC% 0.0 /100{WBC} Normal 0-0.5 [facility] Comment on above: Performed By: #### G MARLOLS #### Point of Care testing , Platelet mean volume (Bld) [Entitic vol] 8.0 fL Normal 6.3-10.7 [facility] Comment on above: Performed By: #### G CAPRICE #### Point of Care testing , Platelets (Bld) [#/Vol] 145 10*3/uL Low 150-450 [facility] Comment on above: Performed By: #### G CAPRICE #### Point of Care testing , RBC (Bld) [#/Vol] 2.84 10*6/uL Low 3.60-5.00 [facility] Comment on above: Performed By: #### G CAPRICE #### Point of Care testing , WBC (Bld) [#/Vol] 10.3 10*3/uL Normal 3.8-11.6 [facility] Comment on above: Performed By: #### G CAPRICE #### Point of Care testing , Glucose Poct Glucometerson 0 08-03-2022 Glucose [Mass/Vol] 144 mg/dL Normal [facility] Comment on above: Result Comment: [place] Glucose Reference Range is dependent on time and content of last meal. Glucose of more than 200 mg/dL in a nonstressed, ambulatory subject supports the diagnosis of Diabetes Mellitus. PERFORMED BY: [place] [address] PATHOLOGIST CEMENT STORAGE WORKER DANII HAYNES M.D. Performed By: #### C MP #### [address] Commemt1 Glu2: Cleaned Meter Normal [facility] Comment on above: Result Comment: PERF ORMED BY: [place] [address] PATHOLOGIST CEMENT STORAGE WORKER DANII HAYNES M.D. Performed By: #### C MP #### [address] Glucose [Mass/Vol] 175 mg/dL Normal [facility] Comment on above: Result Comment: [place] Glucose Reference Range is dependent on time and content of last meal. Glucose of more than 200 mg/dL in a nonstressed, ambulatory subject supports the diagnosis of Diabetes Mellitus. Performed By: #### C MP #### [address] Complete Blood Count Auto Di ffon 08-02-2022 Basophils (Bld) [#/Vol] 0.1 10*3/uL Normal 0.0-0.2 [facility] Comment on above: Result Comment: PERF ORMED BY: [place] [address] PATHOLOGIST CEMENT STORAGE WORKER DANII HAYNES M.D. Performed By: #### C BC #### [address] Basophils/100 WBC (Bld) 0.7 % Normal . [facility] Comment on above: Performed By: #### C BC #### [address] Eosinophils (Bld) [#/Vol] 0.2 10*3/uL Normal 0.0-0.45 [facility] Comment on above: Performed By: #### C BC #### [address] Eosinophils/100 WBC (Bld) 1.7 % Normal . [facility] Comment on above: Performed By: #### C BC #### [address] Erythrocyte distribution width (RBC) [Ratio] 15.3 % Normal 11.9-15.3 [facility] Comment on above: Performed By: #### C BC #### [address] Hematocrit (Bld) [Volume fraction] 27.4 % Low 34.0-46.4 [facility] Comment on above: Performed By: #### C BC #### [address] Hemoglobin (Bld) [Mass/Vol] 8.8 g/dL Low 11.8-15.4 [facility] Comment on above: Performed By: #### C BC #### [address] Lymphocytes (Bld) [#/Vol] 2.0 10*3/uL Normal 1.00-4.8 [facility] Comment on above: Performed By: #### C BC #### [address] Lymphocytes/100 WBC (Bld) 16.7 % Normal . [facility] Comment on above: Performed By: #### C BC #### [address] MCH (RBC) [Entitic mass] 29.3 pg Normal 24.7-34.3 [facility] Comment on above: Performed By: #### C BC #### [address] MCV (RBC) [Entitic vol] 91.8 fL Normal 80-100 [facility] Comment on above: Performed By: #### C BC #### [address] Mean Corpuscular HGB Conc 32.0 g/dL Normal 32.0-35.0 [facility] Comment on above: Performed By: #### C BC #### [place] [address] [place] Monocytes (Bld) [#/Vol] 0.8 10*3/uL Normal 0.0-0.8 [facility] Comment on above: Performed By: #### C BC #### [address] Monocytes/100 WBC (Bld) 7.1 % Normal . [facility] Comment on above: Performed By: #### C BC #### [address] Neutrophils (Bld) [#/Vol] 8.6 10*3/uL High 1.8-7.7 [facility] Comment on above: Performed By: #### C BC #### [address] Neutrophils/100 WBC (Bld) 73.8 % Normal . [facility] Comment on above: Performed By: #### C BC #### [address] NRBC% 0.0 /100{WBC} Normal 0-0.5 [facility] Comment on above: Performed By: #### C BC #### [address] Platelet mean volume (Bld) [Entitic vol] 8.2 fL Normal 6.3-10.7 [facility] Comment on above: Performed By: #### C BC #### [address] Platelets (Bld) [#/Vol] 145 10*3/uL Low 150-450 [facility] Comment on above: Performed By: #### C BC #### [address] RBC (Bld) [#/Vol] 2.98 10*6/uL Low 3.60-5.00 [facility] Comment on above: Performed By: #### C BC #### [address] WBC (Bld) [#/Vol] 11.7 10*3/uL High 3.8-11.6 [facility] Comment on above: Performed By: #### C BC #### [address] Comprehensive Metabolic Pane tamika 08-02-2022 Albumin [Mass/Vol] 3.0 g/dL Low 3.5-5.7 [facility] Comment on above: Performed By: #### C MP #### [address] Albumin/Globulin [Mass ratio] 0.7 {ratio} Normal [facility] Comment on above: Performed By: #### C MP #### [address] ALP [Catalytic activity/Vol] 101 U/L Normal 34-104 [facility] Comment on above: Performed By: #### C MP #### [address] [place] [address] [place] ALT [Catalytic activity/Vol] 18 U/L Normal 7-52 [facility] Comment on above: Performed By: #### C MP #### [address] Anion gap [Moles/Vol] 14.2 mmol/L Normal 6.0-15.0 [facility] Comment on above: Performed By: #### C MP #### [address] AST [Catalytic activity/Vol] 19 U/L Normal 13-39 [facility] Comment on above: Performed By: #### C MP #### [address] Bilirubin [Mass/Vol] 0.5 mg/dL Normal 0.3-1.0 [facility] Comment on above: Performed By: #### C MP #### [address] Calcium [Mass/Vol] 7.6 mg/dL Low 8.6-10.3 [facility] Comment on above: Performed By: #### C MP #### [address] Chloride [Moles/Vol] 98 mmol/L Normal 98-107 [facility] Comment on above: Performed By: #### C MP #### [address] CO2 [Moles/Vol] 25.4 mmol/L Normal 21.0-31.0 [facility] Comment on above: Performed By: #### C MP #### [address] Creatinine [Mass/Vol] 6.16 mg/dL Significan t change up 0.60-1.20 [facility] Comment on above: Performed By: #### C MP #### [address] Creatinine Clr Calc Pharmacy 9.83 Normal [facility] Comment on above: Result Comment: PERF ORMED BY: [place] [address] PATHOLOGIST [employer] STORAGE WORKER DANII HAYNES M.D. Performed By: #### C MP #### [address] GFR/1.73 sq M.predicted MDRD (S/P/Bld) [Vol rate/Area] 6.755 mL/min/{1.73_m2} [facility] Comment on above: Performed By: #### C MP #### [address] Globulin (S) [Mass/Vol] 4.5 g/dL [facility] Comment on above: Performed By: #### C MP #### [address] Glucose [Mass/Vol] 165 mg/dL High 70-100 [facility] Comment on above: Result Comment: [facility] Glucose Reference Range is dependent on time and content of last meal. Glucose of more than 200 mg/dL in a nonstressed, ambulatory subject supports the diagnosis of Diabetes Mellitus. ADA recommended reference range Performed By: #### C MP #### [address] Potassium [Moles/Vol] 4.6 mmol/L Normal 3.5-5.1 [facility] Comment on above: Performed By: #### C MP #### [address] Protein [Mass/Vol] 7.5 g/dL Normal 6.4-8.9 [facility] Comment on above: Performed By: #### C MP #### [place] [address] [place] Sodium [Moles/Vol] 133 mmol/L Low 136-145 [facility] Comment on above: Performed By: #### C MP #### [address] Urea nitrogen [Mass/Vol] 47 mg/dL High 7-25 [facility] Comment on above: Performed By: #### C MP #### [address] Glucose Poct Glucometerson 0 - Glucose [Mass/Vol] 180 mg/dL Normal [facility] Comment on above: Result Comment: [place] om Glucose Reference Range is dependent on time and content of last meal. Glucose of more than 200 mg/dL in a nonstressed, ambulatory subject supports the diagnosis of Diabetes Mellitus. PERFORMED BY: [place] [address] PATHOLOGIST [employer] STORAGE WORKER DANII HAYNES M.D. Performed By: #### G LULS #### Point of Care testing , Glucose [Mass/Vol] 166 mg/dL Normal [facility] Comment on above: Result Comment: [place] om Glucose Reference Range is dependent on time and content of last meal. Glucose of more than 200 mg/dL in a nonstressed, ambulatory subject supports the diagnosis of Diabetes Mellitus. PERFORMED BY: [place] [address] PATHOLOGIST [employer] STORAGE WORKER DANII HAYNES M.D. Performed By: #### B CESAR, CBC #### [address] Glucose [Mass/Vol] 118 mg/dL Normal [facility] Comment on above: Result Comment: [place] [facility] Glucose Reference Range is dependent on time and content of last meal. Glucose of more than 200 mg/dL in a nonstressed, ambulatory subject supports the diagnosis of Diabetes Mellitus. PERFORMED BY: [place] [address] PATHOLOGIST [employer] STORAGE WORKER DANII HAYNES M.D. Performed By: #### G LULS #### Point of Care testing , Basic Metabolic Panelon 04-0 Anion gap [Moles/Vol] 16.7 mmol/L High 6.0-15.0 [facility] Comment on above: Performed By: #### B MP, CBC #### [address] Calcium [Mass/Vol] 8.2 mg/dL Low 8.6-10.3 [facility] Comment on above: Performed By: #### B MP, CBC #### [address] Chloride [Moles/Vol] 99 mmol/L Normal 98-107 [facility] Comment on above: Performed By: #### B MP, CBC #### [facility] [address] CO2 [Moles/Vol] 22.6 mmol/L Normal 21.0-31.0 [facility] Comment on above: Performed By: #### B MP, CBC #### [address] Creatinine [Mass/Vol] 4.98 mg/dL Significan t change up 0.60-1.20 [facility] Comment on above: Performed By: #### B MP, CBC #### [address] Creatinine Clr Calc Pharmacy 11.87 Normal [facility] Comment on above: Result Comment: PERF ORMED BY: [place] [address] PATHOLOGIST [employer] WORKER DANII HAYNES M.D. Performed By: #### B MP, CBC #### [address] GFR/1.73 sq M.predicted MDRD (S/P/Bld) [Vol rate/Area] 8.719 mL/min/{1.73_m2} Normal [facility] Comment on above: Performed By: #### B MP, CBC #### [place] [address] [place] Glucose [Mass/Vol] 129 mg/dL High 70-100 [facility] Comment on above: Result Comment: [place] Glucose Reference Range is dependent on time and content of last meal. Glucose of more than 200 mg/dL in a nonstressed, ambulatory subject supports the diagnosis of Diabetes Mellitus. ADA recommended reference range Performed By: #### B MP, CBC #### [facility] [address] Potassium [Moles/Vol] 4.3 mmol/L Normal 3.5-5.1 [facility] Comment on above: Performed By: #### B MP, CBC #### [facility] [address] [place] [address] Sodium [Moles/Vol] 134 mmol/L Low 136-145 [facility] Comment on above: Performed By: #### B MP, CBC #### [facility] [address] [place] [address] Urea nitrogen [Mass/Vol] 37 mg/dL High 7-25 [facility] Comment on above: Performed By: #### B MP, CBC #### [address] Blood Cultureon 08-01-2022 Bacteria identified Cx Nom (Bld) Gram stain results called at 1517 on 08/02/22 Gram Stain Gram Positive Cocci in Clusters ORGANISM: Staphylococcus epidermidis (O:STAEPI) Organism Comments For MARIANNE Refer to Final Report of Blood Culture Collected Date 08/01/22 PERFORMED BY: [place] [address] PATHOLOGIST C[employer] STORAGE WORKER DANII HAYNES M.D. [facility] Comment on above: Performed By: [...] detection in Positive blood culture Not detected Merel auris DNA [Presence] by AURA with non-probe [...] culture Not detected Group A (Streptococcus pyogenes) [id number] Not detected Group B Strep (Streptococcus agalactiae) [...] indicate anti (more content not included)... Normal [facility] Comment on above: Performed By: #### G LULS #### Point of Care testing , Complete Blood Count Auto Di ffon 08-01-2022 Basophils (Bld) [#/Vol] 0.1 10*3/uL Normal 0.0-0.2 [facility] Comment on above: Result Comment: PERF ORMED BY: [place] [address] PATHOLOGIST [employer] WORKER DANII HAYNES M.D. Performed By: #### B MP, CBC #### [address] Basophils/100 WBC (Bld) 0.3 % Normal . [facility] Comment on above: Performed By: #### B MP, CBC #### [facility] [address] [place] [address] [place] Eosinophils (Bld) [#/Vol] 0.2 10*3/uL Normal 0.0-0.45 [facility] Comment on above: Performed By: #### B MP, CBC #### [facility] [address] Eosinophils/100 WBC (Bld) 1.1 % Normal . [facility] Comment on above: Performed By: #### B MP, CBC #### [facility] [address] Erythrocyte distribution width (RBC) [Ratio] 15.2 % Normal 11.9-15.3 [facility] Comment on above: Performed By: #### B MP, CBC #### [facility] [address] Hematocrit (Bld) [Volume fraction] 28.8 % Low 34.0-46.4 [facility] Comment on above: Performed By: #### B MP, CBC #### [facility] [address] [place] [address] [place] Hemoglobin (Bld) [Mass/Vol] 9.1 g/dL Low 11.8-15.4 [facility] Comment on above: Performed By: #### B MP, CBC #### [facility] [address] [place] [address] [place] Lymphocytes (Bld) [#/Vol] 2.0 10*3/uL Normal 1.00-4.8 [facility] Comment on above: Performed By: #### B MP, CBC #### [facility] [address] [place] [address] [place] Lymphocytes/100 WBC (Bld) 12.7 % Normal . [facility] Comment on above: Performed By: #### B MP, CBC #### [facility] [address] MCH (RBC) [Entitic mass] 29.1 pg Normal 24.7-34.3 [facility] Comment on above: Performed By: #### B MP, CBC #### [facility] [address] MCV (RBC) [Entitic vol] 92.0 fL Normal 80-100 [facility] Comment on above: Performed By: #### B MP, CBC #### [facility] [address] Mean Corpuscular HGB Conc 31.6 g/dL Low 32.0-35.0 [facility] Comment on above: Performed By: #### B MP, CBC #### [facility] [address] Monocytes (Bld) [#/Vol] 1.5 10*3/uL High 0.0-0.8 [facility] Comment on above: Performed By: #### B MP, CBC #### [facility] [address] Monocytes/100 WBC (Bld) 9.3 % Normal . [facility] Comment on above: Performed By: #### B MP, CBC #### [facility] [address] [place] [address] [place] Neutrophils (Bld) [#/Vol] 11.9 10*3/uL High 1.8-7.7 [facility] Comment on above: Performed By: #### B MP, CBC #### [facility] [address] Neutrophils/100 WBC (Bld) 76.6 % Normal . [facility] Comment on above: Performed By: #### B MP, CBC #### [facility] [address] NRBC% 0.0 /100{WBC} Normal 0-0.5 [facility] Comment on above: Performed By: #### B MP, CBC #### [facility] [address] Platelet mean volume (Bld) [Entitic vol] 8.6 fL Normal 6.3-10.7 [facility] Comment on above: Performed By: #### B MP, CBC #### [facility] [address] [place] [id number] [facility] Platelets (Bld) [#/Vol] 123 10*3/uL Significant change down 150-450 [facility] Comment on above: Performed By: #### B MP, CBC #### [facility] [address] RBC (Bld) [#/Vol] 3.13 10*6/uL Low 3.60-5.00 [facility] Comment on above: Performed By: #### B MP, CBC #### [facility] [address] [place] [address] [facility] WBC (Bld) [#/Vol] 15.6 10*3/uL High 3.8-11.6 [facility] Comment on above: Performed By: #### B MP, CBC #### [facility] [address] ECG 12 lead ECGon 08-01-2022 ECG 12 lead ECG [facility] Main [place] [address] [place] [address] Electrocardiograph Report Signed Patient: Amparo Castorena MR#: [id number] 68 : 1950 Acct:[id number] Age/Sex: 71 / F ADM Date: 08/02/22 Loc: Room: [address] [place] [address] Type: ADM IN Attending Dr: Yash Ortega [...] When compared with ECG of 31-JUL-2022 15:08, [place] interval has increased Confirmed by GER[facility]UDE STRICKLAND [id number] on 08/03/2022 10:28:47 AM Referred By: Electronically Signed By:SCAR LOREDO MD [facility] Transcribed By: MUS Signed By Juan Loredo MD 08/03/22 1028 [facility] echo transthoracicon [facility] echo transthoracic [facility] Main [place] [address] [place] [address] Echocardiogram Signed Patient: Amparo Castorena MR#: [id number] 68 : 1950 Acct:[id number] Age/Sex: 71 / F ADM Date: 07/31/22 Loc: Room: [address] [place] [address] Type: ADM IN Attending Dr: Yash Ortega MD Ordering Provider: Yash Ortega MD Date of Service: 08/01/2212/17/951 [facility] echo transthoracic: chest pain Copies to: MD Yash Arndt MD BSA: 2.1 m2 BP: 138/76 mmHg HR: 80 Reason For Study: chest pain History: CKD, CVA, DM, HTN, HLD, VT, PVD, stents Interpretation Summary Ejection Fraction = [...] area: LVLd ap4: 9.4 cm RV S Megn: EDV(Teich): 6.1 cm2 EDV(MOD-sp4): 10.2 cm/sec 137.5 [...] By: Danii Rodriguez MD 08/01/22 1334 Normal [facility] Glucose Poct Glucometerson 0 08-01-2022 Glucose [Mass/Vol] 159 mg/dL Normal [facility] Comment on above: Result Comment: [facility] Glucose Reference Range is dependent on time and content of last meal. Glucose of more than 200 mg/dL in a nonstressed, ambulatory subject supports the diagnosis of Diabetes Mellitus. PERFORMED BY: [place] [address] PATHOLOGIST C[employer] WORKER DANII HAYNES M.D. Performed By: #### C MP #### [facility] [address] [place] [address] Glucose [Mass/Vol] 114 mg/dL Normal [facility] Comment on above: Result Comment: [facility] Glucose Reference Range is dependent on time and content of last meal. Glucose of more than 200 mg/dL in a nonstressed, ambulatory subject supports the diagnosis of Diabetes Mellitus. PERFORMED BY: [place] [address] PATHOLOGIST C[employer] WORKER DANII HAYNES M.D. Performed By: #### B MP, CBC #### [facility] [address] [place], [place] [id number] [facility] Glucose [Mass/Vol] 170 mg/dL Normal [facility] Comment on above: Result Comment: [place] om Glucose Reference Range is dependent on time and content of last meal. Glucose of more than 200 mg/dL in a nonstressed, ambulatory subject supports the diagnosis of Diabetes Mellitus. PERFORMED BY: [place] [address] PATHOLOGIST C[employer] WORKER DANII HAYNES M.D. Performed By: #### C MP #### [address] Glucose [Mass/Vol] 152 mg/dL Normal [facility] Comment on above: Result Comment: [place] Glucose Reference Range is dependent on time and content of last meal. Glucose of more than 200 mg/dL in a nonstressed, ambulatory subject supports the diagnosis of Diabetes Mellitus. PERFORMED BY: [place] [address] PATHOLOGIST C[employer] ST[employer] WORKER DANII HAYNES M.D. Performed By: #### G LULS #### Point of Care testing , Glucose [Mass/Vol] 123 mg/dL Normal [facility] Comment on above: Result Comment: [place] Glucose Reference Range is dependent on time and content of last meal. Glucose of more than 200 mg/dL in a nonstressed, ambulatory subject supports the diagnosis of Diabetes Mellitus. PERFORMED BY: [place] [address] PATHOLOGIST C[employer] WORKER DANII HAYNES M.D. Performed By: #### G LULS #### Point of Care testing , Lipid Panelon 08-01-2022 Cholesterol [Mass/Vol] 105 mg/dL Low 140-200 [facility] Comment on above: Result Comment: Chol less than 200 mg/dl low risk Chol 201-239 mg/dl borderline risk Chol 240 mg/dl and greater high risk Performed By: #### G LULS #### Point of Care testing , Cholesterol in HDL [Mass/Vol] 32 mg/dL Low 35-85 [facility] Comment on above: Result Comment: HDL CHOL ATP-III CLASSIFICATION Cardiovascular Risk HDL > or equal to 60 mg/dL LOW HDL < 40 mg/dL HIGH Performed By: #### G LULS #### Point of Care testing , Cholesterol.total/Chol esterol in HDL [Mass ratio] 3.3 {ratio} Normal <5.0 [facility] Comment on above: Result Comment: PERF ORMED BY: [facility] [address] [place] [address] PATHOLOGIST [employer] WORKER DANII HAYNES M.D. Performed By: #### G LULS #### Point of Care testing , LDL Cholesterol,Calculated 45 mg/dL Normal 0-100 [facility] Comment on above: Result Comment: LDL ATP III CLASSIFICATION LDL less than 100 mg/dL Optimal LDL 100-129 mg/dL Near or above optimal LDL 130-159 mg/dL Borderline high LDL 160-189 mg/dL High LDL greater than 189 mg/dL Very high Performed By: #### G LULS #### Point of Care testing , Triglyceride w/Reflex 140 mg/dL Normal 0-149 [facility] Comment on above: Result Comment: TRIG ATP III CLASSIFICATION TRIG less than 150 mg/dL Normal TRIG 150-199 mg/dL Borderline high TRIG 200-500 mg/dL High TRIG greater than 500 mg/dL Very high Standard traceable to the Center for Disease Conrtrol and Prevention (CDC) test method. Performed By: #### G LULS #### Point of Care testing , VLDL CHOLESTEROL 28 mg/dL Normal [facility] Comment on above: Performed By: #### G LULS #### Point of Care testing , Troponin I High Sensitivityo n 08-01-2022 Troponin I High Sensitivity 11.3 pg/mL Normal 0.0-15.0 [facility] Comment on above: Result Comment: PERF ORMED BY: [facility] [address] [place] [address] PATHOLOGIST [employer] WORKER DANII HAYNES M.D. Performed By: #### G LULS #### Point of Care testing , Activated partial thrombopla stin time (aPTT) in platelet poor plasma by coagulation aOrdered By: Malcolm Moss on 07-31-2022 aPTT Coag (PPP) [Time] 28.0 s 25.1-36.5 [facility] Alanine aminotransferase [En zymatic activity/volume] in Serum or PlasmaOrdered By: Malcolm Moss on 07-31-2022 ALT [Catalytic activity/Vol] 24 U/L Normal 7-52 [facility] Comment on above: Performed By: #### G CAPRICE #### Point of Care testing , Albumin [Mass/volume] in Ser um or Plasma by Bromocresol green (BCG) dye binding methoOrdered By: Malcolm Moss on 07-31-2022 Albumin BCG dye [Mass/Vol] 3.6 g/dL 3.5-5.7 [facility] Alkaline phosphatase [Enzyma tic activity/volume] in Serum or PlasmaOrdered By: Malcolm Moss on 07-31-2022 ALP [Catalytic activity/Vol] 124 U/L High 34-104 [facility] Comment on above: Performed By: #### G LULS #### Point of Care testing , Aspartate aminotransferase [ Enzymatic activity/volume] in Serum or PlasmaOrdered By: Malcolm Moss on 07-31-2022 AST [Catalytic activity/Vol] 22 U/L Normal 13-39 [facility] Comment on above: Performed By: #### G CAPRICE #### Point of Care testing , Automated erythrocytes count in urine sediment (number/area)Ordered By: Malcolm Moss on 07-31-2022 RBC Auto (Urine sed) [#/Area] 50-100 [HPF] 0-4 [facility] Automated leukocytes count i n urine sediment (number/area)Ordered By: Malcolm Moss on 07-31-2022 WBC Auto (Urine sed) [#/Area] Innumerable [HPF] 0-4 [facility] Automated urine hyaline cast s count (number/volume)Ordered By: Malcolm Moss on 07-31-2022 Hyaline casts Auto (U) [#/Vol] 5-9 [LPF] 0-1 [facility] B-Type Natriuretic Peptideon 07-31-2022 Natriuretic peptide B (Bld) [Mass/Vol] 57.0 pg/mL Normal 5-100 [facility] Comment on above: Result Comment: PERF ORMED BY: [facility] [place] [address] PATHOLOGIST [employer] WORKER DANII HAYNES M.D. Performed By: #### G LULS #### Point of Care testing , Basic Metabolic Panelon Creatinine Clr Calc Pharmacy 14.63 Normal [facility] Comment on above: Performed By: #### G LULS #### Point of Care testing , GFR/1.73 sq M.predicted MDRD (S/P/Bld) [Vol rate/Area] 10.913 mL/min/{1.73_m2} Normal [facility] Comment on above: Performed By: #### G LULS #### Point of Care testing , Basophils Auto (Bld) [#/Vol] Ordered By: Malcolm Moss on 07-31-2022 Basophils (Bld) [#/Vol] 0.1 10*3/uL 0.0-0.2 [facility] Basophils/100 WBC Auto (Bld) Ordered By: Malcolm Moss on 07-31-2022 Basophils/100 WBC (Bld) 0.4 % . [facility] Bilirubin Auto test strip Ql (U)Ordered By: Malcolm Moss on 07-31-2022 Bilirubin Ql (U) Negative Negative [facility] Bilirubin.direct [Mass/volum e] in Serum or PlasmaOrdered By: Malcolm Moss on 07-31-2022 Bilirubin.direct [Mass/Vol] 0.10 mg/dL 0.03-0.18 [facility] Bilirubin.total [Mass/volume ] in Serum or PlasmaOrdered By: Malcolm Moss on 07-31-2022 Bilirubin [Mass/Vol] 0.6 mg/dL Normal 0.3-1.0 [facility] Comment on above: Performed By: #### G LULS #### Point of Care testing , CBC AUTO DIFFon 07-31-2022 BASO # 0.1 103/ul Normal 0.0-0.[address] [facility] Comment on above: Performed By: #### U SUNITA, MG, RENAL #### [facility] [address] [address] [address] Silver Harrison Basophils/100 WBC (Bld) 0.6 % Normal 0.2-2.0 [facility] Comment on above: Performed By: #### U SUNITA, MG, RENAL #### [facility] [address] [place] [address] Dr. Silver Harrison EO # 0.3 103/ul Normal 0.0-0.7 [facility] Comment on above: Performed By: #### U SUNITA, MG, RENAL #### [facility] [address] [place] [address] Dr. Silver Harrison Eosinophils/100 WBC (Bld) 2.4 % Normal 0.9-7.0 [facility] Comment on above: Performed By: #### U SUNITA, MG, RENAL #### [facility] [address] [place] [address] Dr. Silver Harrison Erythrocyte distribution width (RBC) [Ratio] 14.1 % Normal 11.0-15.[address] [facility] Comment on above: Performed By: #### U SUNITA, MG, RENAL #### [facility] [address] [place] [address] Dr. Silver Harrison Hematocrit (Bld) [Volume fraction] 33.7 % Critically low 36.0-48.0 [facility] Comment on above: Performed By: #### U SUNITA, MG, RENAL #### [facility] [address] [place] [address] Dr. Silver Harrison Hemoglobin (Bld) [Mass/Vol] 10.1 g/dL Critically low 12.0-16.0 [facility] Comment on above: Performed By: #### U SUNITA, MG, RENAL #### [facility] [address] [place] [address] Dr. Silver Harrison IG # 0.07 10e3/ul Critically high 0.00-0.03 [facility] Comment on above: Performed By: #### U SUNITA, MG, RENAL #### [facility] [address] [place] [address] Dr. Silver Harrison IG % 0.6 % Critically high 0.0-0.5 [facility] Comment on above: Performed By: #### U SUNITA, MG, RENAL #### [facility] [address] [address] [address] Silver Harrison LYMPH # 2.4 103/ul Normal 1.2-3.[address] [facility] Comment on above: Performed By: #### U SUNITA, MG, RENAL #### [facility] [address] [place] [address] Dr. Silver Harrison Lymphocytes/100 WBC (Bld) 21.6 % Normal 20.5-60.[address] [facility] Comment on above: Performed By: #### U SUNITA, MG, RENAL #### [facility] [address] [place] [address] Dr. Silver Harrison MANUAL DIFF REQ NO Normal [facility] Comment on above: Performed By: #### U SUNITA, MG, RENAL #### [facility] [address] [place] [address] Dr. Silver Harrison MCH (RBC) [Entitic mass] 28.6 pg Normal 26.7-34.[address] [facility] Comment on above: Performed By: #### U SUNITA, MG, RENAL #### [facility] [address] [place] [address] Dr. Silver Harrison MCHC (RBC) [Mass/Vol] 30.0 g/dL Normal 29.9-35.[address] [facility] Comment on above: Performed By: #### U SUNITA, MG, RENAL #### [facility] [address] [place] [address] Dr. Silver Harrison MCV (RBC) [Entitic vol] 95.5 fL Normal 81.0-99.[address] [facility] Comment on above: Performed By: #### U SUNITA, MG, RENAL #### [facility] [address] [place] [address] Dr. Silver Harrison MONO # 0.8 103/ul Normal 0.3-0.[address] [facility] Comment on above: Performed By: #### U SUNITA, MG, RENAL #### [facility] [address] [place] [address] Dr. Silver Harrison Monocytes/100 WBC (Bld) 7.1 % Normal 1.7-12.[address] [facility] Comment on above: Performed By: #### U SUNITA, MG, RENAL #### [facility] [address] [place] [address] Dr. Silver Harrison NEUT # 7.4 103/ul Critically high 1.4-6.[address] [facility] Comment on above: Performed By: #### U SUNITA, MG, RENAL #### [facility] Laboratory [address] [place] [address] Dr. Silver Harrison Neutrophils/100 WBC (Bld) 67.7 % Normal 43.0-75.[address] [facility] Comment on above: Performed By: #### U SUNITA, MG, RENAL #### [facility] Laboratory [address] [place] [address] Dr. Silver Harrison Platelet mean volume (Bld) [Entitic vol] 10.2 fL Normal 9.5-13.[address] [facility] Comment on above: Performed By: #### U SUNITA, MG, RENAL #### [facility] Laboratory [address] [place] [address] Dr. Silver Harrison PLT 130 103/ul Critically low 150-[address] [facility] Comment on above: Performed By: #### U SUNITA, MG, RENAL #### [facility] Laboratory [address] [place] [address] Dr. Silver Harrison RBC 3.53 106/ul Critically low 4.20-5.[address] [facility] Comment on above: Performed By: #### U SUNITA, MG, RENAL #### [facility] Laboratory [address] [place] [address] Dr. Silver Harrison WBC 10.9 103/ul Normal 4.0-11.0 [facility] Comment on above: Performed By: #### U SUNITA, MG, RENAL #### [facility] Laboratory [address] [place] [address] Dr. Silver Harrison Calcium [Mass/volume] in Ser um or PlasmaOrdered By: Malcolm Moss on 07-31-2022 Calcium [Mass/Vol] 8.3 mg/dL Low 8.6-10.3 [facility] Comment on above: Performed By: #### G LULS #### Point of Care testing , Carbon dioxide, total [Moles /volume] in Serum or PlasmaOrdered By: Malcolm Moss on 07-31-2022 CO2 [Moles/Vol] 24.3 mmol/L Normal 21.0-31.0 [facility] Comment on above: Performed By: #### G LULS #### Point of Care testing , Casts typing in urine sedime nt by light microscopyOrdered By: Malcolm Moss on 07-31-2022 Casts LM Nom (Urine sed) N/A [facility] Chloride [Moles/volume] in S alida or PlasmaOrdered By: Malcolm Moss on 07-31-2022 Chloride [Moles/Vol] 98 mmol/L Normal 98-107 [facility] Comment on above: Performed By: #### G LULS #### Point of Care testing , Complete Blood Count Auto Di ffon 07-31-2022 Basophils (Bld) [#/Vol] 0.1 10*3/uL Normal 0.0-0.2 [facility] Comment on above: Result Comment: PERF ORMED BY: [facility] [address] [place] [address] PATHOLOGIST [employer] DANII HAYNES M.D. Performed By: #### G MARLOLS #### Point of Care testing , Basophils/100 WBC (Bld) 0.4 % Normal . [facility] Comment on above: Performed By: #### G LULS #### Point of Care testing , Eosinophils (Bld) [#/Vol] 0.1 10*3/uL Normal 0.0-0.45 [facility] Comment on above: Performed By: #### G LULS #### Point of Care testing , Eosinophils/100 WBC (Bld) 0.5 % Normal . [facility] Comment on above: Performed By: #### G LULS #### Point of Care testing , Erythrocyte distribution width (RBC) [Ratio] 15.0 % Normal 11.9-15.3 [facility] Comment on above: Performed By: #### G LULS #### Point of Care testing , Hematocrit (Bld) [Volume fraction] 31.6 % Low 34.0-46.4 [facility] Comment on above: Performed By: #### G MARLOLS #### Point of Care testing , Hemoglobin (Bld) [Mass/Vol] 9.9 g/dL Low 11.8-15.4 [facility] Comment on above: Performed By: #### G LULS #### Point of Care testing , Lymphocytes (Bld) [#/Vol] 1.3 10*3/uL Normal 1.00-4.8 [facility] Comment on above: Performed By: #### G LULS #### Point of Care testing , Lymphocytes/100 WBC (Bld) 4.8 % Normal . [facility] Comment on above: Performed By: #### G LULS #### Point of Care testing , MCH (RBC) [Entitic mass] 28.8 pg Normal 24.7-34.3 [facility] Comment on above: Performed By: #### G MARLOLS #### Point of Care testing , MCV (RBC) [Entitic vol] 91.7 fL Normal 80-100 [facility] Comment on above: Performed By: #### G LULS #### Point of Care testing , Mean Corpuscular HGB Conc 31.4 g/dL Low 32.0-35.0 [facility] Comment on above: Performed By: #### G LULS #### Point of Care testing , Monocytes (Bld) [#/Vol] 1.4 10*3/uL High 0.0-0.8 [facility] Comment on above: Performed By: #### G LULS #### Point of Care testing , Monocytes/100 WBC (Bld) 20.48 % High 0.00-20.00 [facility] Comment on above: Result Comment: For adults in ED, MDW > 20.0 may be associated with a higher risk of sepsis during the first 12 hrs of hospital admission Performed By: #### G LULS #### Point of Care testing , Monocytes/100 WBC (Bld) 5.1 % Normal . [facility] Comment on above: Performed By: #### G LULS #### Point of Care testing , Neutrophils (Bld) [#/Vol] 24.2 10*3/uL High 1.8-7.7 [facility] Comment on above: Performed By: #### G CAPRICE #### Point of Care testing , Neutrophils/100 WBC (Bld) 89.2 % Normal . [facility] Comment on above: Performed By: #### Ayo SELLERSLS #### Point of Care testing , NRBC% 0.1 /100{WBC} Normal 0-0.5 [facility] Comment on above: Performed By: #### Ayo VASQUES #### Point of Care testing , Platelet mean volume (Bld) [Entitic vol] 8.4 fL Normal 6.3-10.7 [facility] Comment on above: Performed By: #### Ayo VASQUES #### Point of Care testing , Platelets (Bld) [#/Vol] 155 10*3/uL Normal 150-450 [facility] Comment on above: Performed By: #### Ayo VASQUES #### Point of Care testing , RBC (Bld) [#/Vol] 3.45 10*6/uL Low 3.60-5.00 [facility] Comment on above: Performed By: #### Ayo VASQUES #### Point of Care testing , WBC (Bld) [#/Vol] 27.0 10*3/uL High 3.8-11.6 [facility] Comment on above: Performed By: #### Ayo VASQUES #### Point of Care testing , Creatine Kinaseon 07-31-2022 Creatine Kinase Normal 30-223 [facility] Comment on above: Result Comment: Spec imen hemolyzed, redraw requested Performed By: #### Ayo VASQUES #### Point of Care testing , Creatine kinase [Enzymatic a ctivity/volume] in Serum or PlasmaOrdered By: Malcolm Moss on 07-31-2022 CK [Catalytic activity/Vol] 70 U/L 30-223 [facility] Creatinine [Mass/volume] in Serum or PlasmaOrdered By: Malcolm Moss on 07-31-2022 Creatinine [Mass/Vol] 4.13 mg/dL High 0.60-1.20 [facility] Comment on above: Performed By: #### G LULS #### Point of Care testing , Dipstick and Microscopicon 0 07-31-2022 Bacteria,Urine 3+ High None Seen [facility] Comment on above: Order Comment: Name Collection Type:: Straight Catheter Performed By: #### G LULS #### Point of Care testing , Bilirubin,Urine Negative Normal Negative [facility] Comment on above: Order Comment: Name Collection Type:: Straight Catheter Performed By: #### G LULS #### Point of Care testing , Glucose Ql (U) Normal Normal Normal [facility] Comment on above: Order Comment: Name Collection Type:: Straight Catheter Performed By: #### G LULS #### Point of Care testing , Hyaline Casts,Urine 5-9 High 0-1 [facility] Comment on above: Order Comment: Name Collection Type:: Straight Catheter Result Comment: PERF ORMED BY: [address] [place] [address] PATHOLOGIST [employer] WORK[employer] DANII HAYNES M.D. Performed By: #### G LULS #### Point of Care testing , Ketones Ql (U) Negative Normal Negative [facility] Comment on above: Order Comment: Name Collection Type:: Straight Catheter Performed By: #### G LULS #### Point of Care testing , Leukocyte esterase Test strip Ql (U) 4+ High Negative [facility] Comment on above: Order Comment: Name Collection Type:: Straight Catheter Performed By: #### G LULS #### Point of Care testing , Nitrite,Urine Negative Normal Negative [facility] Comment on above: Order Comment: Name Collection Type:: Straight Catheter Performed By: #### G LULS #### Point of Care testing , Occult Blood,Urine 3+ High Negative [facility] Comment on above: Order Comment: Name Collection Type:: Straight Catheter Result Comment: PERF ORMED BY: [address] [place] [id number] PATHOLOGIST [employer] WORKER DANII HAYNES M.D. Performed By: #### G LULS #### Point of Care testing , Protein,Urine >=300 High Negative [facility] Comment on above: Order Comment: Name Collection Type:: Straight Catheter Performed By: #### G LULS #### Point of Care testing , RBC,Urine 50-100 High 0-4 [facility] Comment on above: Order Comment: Name Collection Type:: Straight Catheter Performed By: #### G LULS #### Point of Care testing , Specificy [place],Urine 1.020 Normal 1.001-1.03 0 [facility] Comment on above: Order Comment: Name Collection Type:: Straight Catheter Performed By: #### G LULS #### Point of Care testing , Squamous Epithelial Cell,Urine 10-19 High 0-2 [facility] Comment on above: Order Comment: Name Collection Type:: Straight Catheter Performed By: #### G LULS #### Point of Care testing , Urobilinogen,Urine Normal Normal Normal [facility] Comment on above: Order Comment: Name Collection Type:: Straight Catheter Performed By: #### G LULS #### Point of Care testing , WBC,Urine Innumerable High 0-4 [facility] Comment on above: Order Comment: Name Collection Type:: Straight Catheter Performed By: #### G LULS #### Point of Care testing , ECG 12 lead ECGon 07-31-2022 ECG 12 lead ECG [facility] [place] [address] Electrocardiograph Report Signed Patient: Amparo Castorena MR#: [id number] : 1950 Acct:[id number] Age/Sex: 71 / F ADM Date: 07/31/22 Loc: ER Room: Type: [facility] ER Attending Dr: Ordering Provider: Malcolm [...] Prolonged QT Confirmed by Piyush Bell DO ([id number]) on 07/31/2022 4:05:21 PM Referred By: Electronically Signed By:Piyush Bell DO Transcribed By: MUS Signed By Piyush Bell DO [id number] Normal [facility] Eosinophils Auto (Bld) [#/Vo l]Ordered By: Malcolm Moss on 07-31-2022 Eosinophils (Bld) [#/Vol] 0.1 10*3/uL 0.0-0.45 [facility] Eosinophils/100 WBC Auto (Bl d)Ordered By: Malcolm Moss on 07-31-2022 Eosinophils/100 WBC (Bld) 0.5 % . [facility] Erythrocyte distribution wid th Auto (RBC) [Ratio]Ordered By: Malcolm Moss on 07-31-2022 Erythrocyte distribution width (RBC) [Ratio] 15.0 % 11.9-15.3 [facility] Glucose [Mass/volume] in Ser um or PlasmaOrdered By: Malcolm Moss on 07-31-2022 Glucose [Mass/Vol] 183 mg/dL High 70-100 [facility] Comment on above: ADA recommended refe rence rangeRandom Glucose Reference Range is dependent on time and content of last meal. Glucose of more than 200 mg/dL in a nonstressed, ambulatory subject supports the diagnosis of Diabetes Mellitus. Result Comment: [place] om Glucose Reference Range is dependent on time and content of last meal. Glucose of more than 200 mg/dL in a nonstressed, ambulatory subject supports the diagnosis of Diabetes Mellitus. ADA recommended reference range Performed By: #### G LULS #### Point of Care testing , Hematocrit Auto (Bld) [Volum e fraction]Ordered By: Malcolm Moss on 07-31-2022 Hematocrit (Bld) [Volume fraction] 31.6 % 34.0-46.4 [facility] Hemoglobin [Mass/volume] in BloodOrdered By: Malcolm Moss on 07-31-2022 Hemoglobin (Bld) [Mass/Vol] 9.9 g/dL 11.8-15.4 [facility] Hepatic Panelon 07-31-2022 Albumin [Mass/Vol] 3.6 g/dL Normal 3.5-5.7 [facility] Comment on above: Performed By: #### G LULS #### Point of Care testing , Bilirubin,Indirect 0.5 mg/dL Normal [facility] Comment on above: Performed By: #### G LULS #### Point of Care testing , Bilirubin.indirect [Mass/Vol] 0.10 mg/dL Normal 0.03-0.18 [facility] Comment on above: Performed By: #### G LULS #### Point of Care testing , Ketones Auto test strip (U) [Mass/Vol]Ordered By: Malcolm Moss on 07-31-2022 Ketones (U) [Mass/Vol] Negative Negative [facility] Laboratory - CoagulationOrde red By: Malcolm Moss on 07-31-2022 PT Coag (PPP) [Time] 12.3 s 9.0-12.9 [facility] Leukocytes [#/volume] correc mary jo for nucleated erythrocytes in Blood by Automated counOrdered By: Malcolm Moss on 07-31-2022 WBC corrected for nucl RBC Auto (Bld) [#/Vol] 27.0 10*3/uL 3.8-11.6 [facility] Lipase [Enzymatic activity/v olume] in Serum or PlasmaOrdered By: Malcolm Moss on 07-31-2022 Lipase [Catalytic activity/Vol] 36.0 U/L Normal 11.0-82.0 [facility] Comment on above: Result Comment: PERF ORMED BY: [facility] [address] [place] [address] PATHOLOGIST [employer] WORK[employer] DANII HAYNES M.D. Performed By: #### G LULS #### Point of Care testing , Lymphocytes Auto (Bld) [#/Vo l]Ordered By: Malcolm Moss on 07-31-2022 Lymphocytes (Bld) [#/Vol] 1.3 10*3/uL 1.00-4.8 [facility] Lymphocytes/100 WBC Auto (Bl d)Ordered By: Malcolm Moss on 07-31-2022 Lymphocytes/100 WBC (Bld) 4.8 % . [facility] MCH Auto (RBC) [Entitic mass ]Ordered By: Malcolm Moss on 07-31-2022 MCH (RBC) [Entitic mass] 28.8 pg 24.7-34.3 [facility] MCHC Auto (RBC) [Mass/Vol]Or dered By: Malcolm Moss on 07-31-2022 MCHC (RBC) [Mass/Vol] 31.4 g/dL 32.0-35.0 [facility] MCV Auto (RBC) [Entitic vol] Ordered By: Malcolm Moss on 07-31-2022 MCV (RBC) [Entitic vol] 91.7 fL 80-100 [facility] Monocyte distribution width [Entitic volume] in Blood by AutomatedOrdered By: Malcolm Moss on 07-31-2022 Monocyte distribution width Auto (Bld) [Entitic vol] 20.48 % 0.00-20.00 [facility] Comment on above: For adults in ED, MD W > 20.0 may be associated with a higher risk of sepsis during the first 12 hrs of hospital admission Monocytes Auto (Bld) [#/Vol] Ordered By: Malcolm Moss on 07-31-2022 Monocytes (Bld) [#/Vol] 1.4 10*3/uL 0.0-0.8 [facility] Monocytes/100 WBC Auto (Bld) Ordered By: Malcolm Moss on 07-31-2022 Monocytes/100 WBC (Bld) 5.1 % . [facility] Natriuretic peptide B [Mass/ Vol]Ordered By: Malcolm Moss on 07-31-2022 Natriuretic peptide B (Bld) [Mass/Vol] 57.0 pg/mL 5-100 [facility] Neutrophils Auto (Bld) [#/Vo l]Ordered By: Malcolm Moss on 07-31-2022 Neutrophils (Bld) [#/Vol] 24.2 10*3/uL 1.8-7.7 [facility] Neutrophils/100 WBC Auto (Bl d)Ordered By: Malcolm Moss on 07-31-2022 Neutrophils/100 WBC (Bld) 89.2 % . [facility] No Panel InformationOrdered By: Malcolm Moss on 07-31-2022 Estimated GFR (CKD-EPI) 10.913 mL/Min [facility] Creatinine Clearance (Chem 14.63 [facility] Nucleated erythrocytes [Pres ence] in Blood by Automated countOrdered By: Malcolm Moss on 07-31-2022 Nucleated RBC Auto Ql (Bld) 0.1 /100{WBC} 0-0.5 [facility] PHOSPHORUSon 07-31-2022 Phosphate [Mass/Vol] 5.3 mg/dL Critically high 2.6-4.[address] [facility] Comment on above: Performed By: #### B MP #### [facility] Laboratory [address] [place] [address] Dr. Silver Harrison PROF CHEM 8 (BAS METB)on Anion gap [Moles/Vol] 11.8 mmol/L Normal [facility] Comment on above: Performed By: #### B MP #### [facility] Laboratory [address] [address] [address] Silver Harrison Calcium [Mass/Vol] 8.4 mg/dL Critically low 8.5-10.1 [facility] Comment on above: Performed By: #### B MP #### [facility] [address] [address] [address] Silver Harrison Chloride [Moles/Vol] 99 mmol/L Normal 98-[address] [facility] Comment on above: Performed By: #### B MP #### [facility] [address] [address] [address] Silver Harrison CO2 [Moles/Vol] 27.9 mmol/L Normal 21.0-32.[address] [facility] Comment on above: Performed By: #### B MP #### [facility] [address] [address] [address] Silver Harrison Creatinine [Mass/Vol] 4.81 mg/dL Critically high 0.55-1.[address] [facility] Comment on above: Performed By: #### B MP #### [facility] Laboratory [address] [place] [address] Dr. Silver Harrison EGFR-AF SRI LANKAN 11 mL/min/1.73m2 Critically low >=[address] [facility] Comment on above: Performed By: #### B MP #### [facility] [address] [address] [address] Silver Harrison EGFR-NON AF SRI LANKAN 9 mL/min/1.73m2 Critically low >=[address] [facility] Comment on above: Performed By: #### B MP #### [facility] [address] [address] [address] Silver Harrison Glucose [Mass/Vol] 114 mg/dL Critically high 74-106 [facility] Comment on above: Performed By: #### B MP #### [facility] [address] [address] [address] Silver Harrison Potassium [Moles/Vol] 3.7 mmol/L Normal 3.5-5.[address] [facility] Comment on above: Performed By: #### B MP #### [facility] [address] [address] [address] Silver Harrison Sodium [Moles/Vol] 135 mmol/L Critically low 136-145 [facility] Comment on above: Performed By: #### B MP #### [facility] [address] [address] [address] Silver Harrison Urea nitrogen [Mass/Vol] 33.0 mg/dL Critically high 7.0-18.[address] [facility] Comment on above: Performed By: #### B MP #### [facility] [id number] Silver Harrison Urea nitrogen/Creatinine [Mass ratio] 6.9 mg/mg Normal [facility] Comment on above: Performed By: #### B MP #### [facility] [id number] Silver Harrison Partial Thromboplastin Timeo n 07-31-2022 aPTT Coag (Bld) [Time] 28.0 s Normal 25.1-36.5 [facility] Comment on above: Result Comment: PERF ORMED BY: [facility] [address] [place] [address] PATHOLOGIST [employer] WORK[employer] DANII HAYNES M.D. Performed By: #### G LULS #### Point of Care testing , Platelet mean volume Auto (B ld) [Entitic vol]Ordered By: Malcolm Moss on 07-31-2022 Platelet mean volume (Bld) [Entitic vol] 8.4 fL 6.3-10.7 [facility] Platelet poor plasma interna tional normalized ratio (INR) by coagulation assay (relatOrdered By: Malcolm Moss on 07-31-2022 INR Coag (PPP) [Relative time] 1.1 {INR} [facility] Comment on above: INR Therapeutic Rang [...] 07-31-2022 Platelets (Bld) [#/Vol] 155 10*3/uL 150-450 [facility] Potassium [Moles/volume] in Serum or PlasmaOrdered By: Malcolm Moss on 07-31-2022 Potassium [Moles/Vol] 4.3 mmol/L Normal 3.5-5.1 [facility] Comment on above: Performed By: #### G LULS #### Point of Care testing , Protein Auto test strip (U) [Mass/Vol]Ordered By: Malcolm Moss on 07-31-2022 Protein (U) [Mass/Vol] mg/dL Negative [facility] Protein [Mass/volume] in Ser um or PlasmaOrdered By: Malcolm Moss on 07-31-2022 Protein [Mass/Vol] 8.1 g/dL Normal 6.4-8.9 [facility] Comment on above: Performed By: #### G LULS #### Point of Care testing , Prothrombin Time INRon 07-31 INR Coag (PPP) [Relative time] 1.1 {INR} Normal [facility] Comment on above: Result Comment: INR [...] Coag (PPP) [Time] 12.3 s Normal 9.0-12.9 [facility] Comment on above: Performed By: #### G LULS #### Point of Care testing , RBC Auto (Bld) [#/Vol]Ordere d By: Malcolm Moss on 07-31-2022 RBC (Bld) [#/Vol] 3.45 10*6/uL 3.60-5.00 [facility] Redraw CKon 07-31-2022 CK [Catalytic activity/Vol] 70 U/L Normal 30-223 [facility] Comment on above: Result Comment: PERF ORMED BY: [facility] [address] [address] PATHOLOGIST [employer] WORK[employer] DANII HAYNES M.D. Performed By: #### G MARLOLS #### Point of Care testing , Serum globulin measurement b y calculation (mass/volume)Ordered By: Malcolm Moss on 07-31-2022 Globulin (S) [Mass/Vol] 4.5 g/dL Normal [facility] Comment on above: Performed By: #### G LULS #### Point of Care testing , Serum or plasma albumin/glob ulin mass ratioOrdered By: Malcolm Moss on 07-31-2022 Albumin/Globulin [Mass ratio] 0.8 {ratio} [facility] Comment on above: Performed By: #### G LULS #### Point of Care testing , Serum or plasma anion gap de terminationOrdered By: Malcolm Moss on 07-31-2022 Anion gap [Moles/Vol] 16.0 mmol/L High 6.0-15.0 [facility] Comment on above: Performed By: #### G LULS #### Point of Care testing , Serum or plasma non-glucuron idated bilirubin measurement (mass/volume)Ordered By: Malcolm Moss on 07-31-2022 Bilirubin.indirect [Mass/Vol] 0.5 mg/dL [facility] Sodium [Moles/volume] in Ser um or PlasmaOrdered By: Malcolm Moss on 07-31-2022 Sodium [Moles/Vol] 134 mmol/L Low 136-145 [facility] Comment on above: Performed By: #### G LULS #### Point of Care testing , Squamous epithelial cells de tection in urine sediment by light microscopyOrdered By: Malcolm Moss on 07-31-2022 Epithelial cells.squamous LM Ql (Urine sed) 10-19 [HPF] 0-2 [facility] Troponin I High Sensitivityo n 07-31-2022 Troponin I High Sensitivity 7.7 pg/mL Normal 0.0-15.0 [facility] Comment on above: Result Comment: PERF ORMED BY: [facility] [address] [place] [address] PATHOLOGIST [employer] WORK[employer] DANII HAYNES M.D. Performed By: #### G LULS #### Point of Care testing , Troponin I.cardiac [Mass/vol ume] in Serum or Plasma by Detection limit <= 0.01 ng/Ordered By: Malcolm Moss on 07-31-2022 Troponin I.cardiac DL <= 0.01 ng/mL [Mass/Vol] 7.7 pg/mL 0.0-15.0 [facility] Urea nitrogen [Mass/volume] in Serum or PlasmaOrdered By: Malcolm Moss on 07-31-2022 Urea nitrogen [Mass/Vol] 26 mg/dL High 7-25 [facility] Comment on above: Performed By: #### G LULS #### Point of Care testing , Urine Cultureon 07-31-2022 Bacteria identified Cx Nom (U) ORGANISM: Escherichia coli (O:ESCCOL) [place] Count >100,000 Aerobic MARIANNE Charge (NMIC56) SUSCEPTIBILITY [...] RESISTANT TO ALL B-LACTAM DRUGS. PERFORMED BY: [address] [place] [address] PATHOLOGIST [employer] WORKER DANII HAYNES M.D. Normal [facility] Comment on above: Performed By: #### G CAPRICE #### Point of Care testing , Urine appearanceOrdered By: Malcolm Moss on 07-31-2022 Appearance (U) Cloudy Critically abnormal Clear [facility] Comment on above: Order Comment: Name Collection Type:: Straight Catheter Performed By: #### G CAPRICE #### Point of Care testing , Urine bacteria detection by automated methodOrdered By: Malcolm Moss on 07-31-2022 Bacteria Auto Ql (U) 3+ None Seen [facility] Urine colorOrdered By: Laura Moss on 07-31-2022 Color (U) Yellow Normal Yellow [facility] Comment on above: Order Comment: Name Collection Type:: Straight Catheter Performed By: #### G LULS #### Point of Care testing , Urine glucose measurement by automated test strip (mass/volume)Ordered By: Malcolm Moss on 07-31-2022 Glucose Auto test strip (U) [Mass/Vol] Normal mg/dL Normal [facility] Urine hemoglobin detection b y automated test stripOrdered By: Malcolm Moss on 07-31-2022 Hemoglobin Auto test strip Ql (U) 3+ Negative [facility] Urine leukocyte esterase det ection by automated test stripOrdered By: Malcolm Moss on 07-31-2022 Leukocyte esterase Auto test strip Ql (U) 4+ Negative [facility] Urine nitrite detection by a utomated test stripOrdered By: Malcolm Moss on 07-31-2022 Nitrite Auto test strip Ql (U) Negative Negative [facility] Urine pH measurement by auto mated test stripOrdered By: Malcolm Moss on 07-31-2022 pH (U) 6.0 [pH] Normal 5.0-9.0 [facility] Comment on above: Order Comment: Name Collection Type:: Straight Catheter Performed By: #### G LULS #### Point of Care testing , Urobilinogen Auto test strip (U) [Mass/Vol]Ordered By: Malcolm Moss on 07-31-2022 Urobilinogen (U) [Mass/Vol] Normal mg/dL Normal [facility] WBC Auto (Bld) [#/Vol]Ordere d By: Malcolm Moss on 07-31-2022 WBC (Bld) [#/Vol] 27.0 10*3/uL 3.8-11.6 [facility] XR chest 1V portableon 07-31 XR chest 1V portable [facility] [place] [address] XRay Report Signed Patient: Amparo Castorena MR#: [id number] : 1950 Acct:[id number] Age/Sex: 71 / F ADM Date: 07/31/22 Loc: ER Room: Type: [facility] ER Attending Dr: Copies to: Malcolm [...] Wei Jr., DElaineOElaine07/31/2022 3:53 PM Dictation Location: [place] [address] Transcribed By: [facility] 07/31/221552 Dictated By: Dewayne Wei Jr, DO 07/31/221551 Signed By: 07/31/221552 Normal [facility] Yeast detection in urine sed iment by light microscopyOrdered By: Malcolm Msos on 07-31-2022 Yeast LM Ql (Urine sed) N/A [facility] pH Auto test strip (U)Ordere d By: Malcolm Moss on 07-31-2022 pH (U) 1.020 [pH] 1.001-1.03 0 [facility] CBC AUTO DIFFon 07-29-2022 BASO # 0.1 103/ul Normal 0.0-0.[address] [facility] Comment on above: Performed By: #### U SUNITA, MG, RENAL #### [facility] [address] [address] [address] Silver Harrison Basophils/100 WBC (Bld) 0.6 % Normal 0.2-2.[address] [facility] Comment on above: Performed By: #### U SUNITA, MG, RENAL #### [facility] [address] [address] [address] Silver Harrison EO # 0.1 103/ul Normal 0.0-0.7 [facility] Comment on above: Performed By: #### U SUNITA, MG, RENAL #### [facility] [address] [address] [address] Silver Harrison Eosinophils/100 WBC (Bld) 1.8 % Normal 0.9-7.[address] [facility] Comment on above: Performed By: #### U SUNITA, MG, RENAL #### [facility] [address] [place] [address] Dr. Silver Harrison Erythrocyte distribution width (RBC) [Ratio] 13.2 % Normal 11.0-15.[address] [facility] Comment on above: Performed By: #### U SUNITA, MG, RENAL #### [facility] [address] [place] [address] Dr. Silver Harrison Hematocrit (Bld) [Volume fraction] 45.2 % Normal 36.0-48.[address] [facility] Comment on above: Performed By: #### U SUNITA, MG, RENAL #### [facility] [address] [place] [address] Dr. Silver Harrison Hemoglobin (Bld) [Mass/Vol] 15.3 g/dL Normal 12.0-16.[address] [facility] Comment on above: Performed By: #### U SUNITA, MG, RENAL #### [facility] [address] [place] [address] Dr. Silver Harrison IG # 0.07 10e3/ul Critically high 0.00-0.[address] [facility] Comment on above: Performed By: #### U SUNITA, MG, RENAL #### [facility] [address] [place] [address] Dr. Silver Harrison IG % 0.9 % Critically high 0.0-0.[address] [facility] Comment on above: Performed By: #### U SUNITA, MG, RENAL #### [facility] [address] [place] [address] Dr. Silver Harrison LYMPH # 2.1 103/ul Normal 1.2-3.8 [facility] Comment on above: Performed By: #### U SUNITA, MG, RENAL #### [facility] [address] [place] [address] Dr. Silver Harrison Lymphocytes/100 WBC (Bld) 27.2 % Normal 20.5-60.[address] [facility] Comment on above: Performed By: #### U SUNITA, MG, RENAL #### [facility] [address] [place] [address] Dr. Silver Harrison MANUAL DIFF REQ NO Normal [facility] Comment on above: Performed By: #### U SUNITA, MG, RENAL #### [facility] [address] [place] [address] Dr. Silver Harrison MCH (RBC) [Entitic mass] 31.5 pg Normal 26.7-34.[address] [facility] Comment on above: Performed By: #### U SUNITA, MG, RENAL #### [facility] [address] [place] [address] Dr. Silver Harrison MCHC (RBC) [Mass/Vol] 33.8 g/dL Normal 29.9-35.2 [facility] Comment on above: Performed By: #### U SUNITA, MG, RENAL #### [facility] [address] [place] [address] Dr. Silver Harrison MCV (RBC) [Entitic vol] 93.0 fL Normal 81.0-99.0 [facility] Comment on above: Performed By: #### U SUNITA, MG, RENAL #### [facility] [address] [place] [address] Dr. Silver Harrison MONO # 0.5 103/ul Normal 0.3-0.8 [facility] Comment on above: Performed By: #### U SUNITA, MG, RENAL #### [facility] [address] [place] [address] Dr. Silver Harrison Monocytes/100 WBC (Bld) 7.0 % Normal 1.7-12.0 [facility] Comment on above: Performed By: #### U SUNITA, MG, RENAL #### [facility] [address] [place] [address] Dr. Silver Harrison NEUT # 4.8 103/ul Normal 1.4-6.5 [facility] Comment on above: Performed By: #### U SUNITA, MG, RENAL #### [facility] [address] [place] [address] Dr. Silver Harrison Neutrophils/100 WBC (Bld) 62.5 % Normal 43.0-75.0 [facility] Comment on above: Performed By: #### U SUNITA, MG, RENAL #### [facility] [address] [address] [address] Silver Harrison Platelet mean volume (Bld) [Entitic vol] 12.2 fL Normal 9.5-13.5 [facility] Comment on above: Performed By: #### U SUNITA, MG, RENAL #### [facility] [address] [address] [address] Silver Harrison PLT 156 103/ul Normal 150-450 [facility] Comment on above: Performed By: #### U SUNITA, MG, RENAL #### [facility] [address] [address] [address] Silver Harrison RBC 4.86 106/ul Normal 4.20-5.40 [facility] Comment on above: Performed By: #### U SUNITA, MG, RENAL #### [facility] [address] [place] [address] Dr. Silver Harrison WBC 7.8 103/ul Normal 4.0-11.0 [facility] Comment on above: Performed By: #### U SUNITA, MG, RENAL #### [facility] [address] [address] [address] Silver Harrison FERRITINon 07-29-2022 Ferritin [Mass/Vol] 704.0 ng/mL Critically high 8.0-252.0 [facility] Comment on above: Performed By: #### U SUNITA, MG, RENAL #### [facility] [address] [address] [address] Silver Harrison IRON AND TIBCon 07-29-2022 % SATURATION 20.2 % Normal [facility] Comment on above: Performed By: #### U SUNITA, MG, RENAL #### [facility] [address] [address] [address] Silver Harrison Iron [Mass/Vol] 47.0 ug/dL Critically low 50.0-170.0 [facility] Comment on above: Performed By: #### U SUNITA, MG, RENAL #### [facility] [address] [address] [address] Silver Harrison TIBC DIRECT 233.0 ug/dL Critically low 250.0-450. 0 [facility] Comment on above: Performed By: #### U SUNITA, MG, RENAL #### [facility] [address] [place] [address] Dr. Silver Harrison CBC AUTO DIFFon 07-24-2022 BASO # 0.1 103/ul Normal 0.0-0.[address] [facility] Comment on above: Performed By: #### B MP #### [facility] [address] [place] [address] Dr. Silver Harrison Basophils/100 WBC (Bld) 0.6 % Normal 0.2-2.[address] [facility] Comment on above: Performed By: #### B MP #### [facility] [address] [place] [address] Dr. Silver Harrison EO # 0.3 103/ul Normal 0.0-0.[address] [facility] Comment on above: Performed By: #### B MP #### [facility] [address] [place] [address] Dr. Silver Harrison Eosinophils/100 WBC (Bld) 2.3 % Normal 0.9-7.[address] [facility] Comment on above: Performed By: #### B MP #### [facility] [address] [place] [address] Dr. Silver Harrison Erythrocyte distribution width (RBC) [Ratio] 13.3 % Normal 11.0-15.[address] [facility] Comment on above: Performed By: #### B MP #### [facility] [address] [place] [address] Dr. Silver Harrison Hematocrit (Bld) [Volume fraction] 28.8 % Critically low 36.0-48.[address] [facility] Comment on above: Performed By: #### B MP #### [facility] [address] [place] [address] Dr. Silver Harrison Hemoglobin (Bld) [Mass/Vol] 8.8 g/dL Critically low 12.0-16.[address] [facility] Comment on above: Performed By: #### B MP #### [facility] [address] [place] [address] Dr. Silver Harrison IG # 0.12 10e3/ul Critically high 0.00-0.[address] [facility] Comment on above: Performed By: #### B MP #### [facility] [address] [place] [address] Dr. Silver Harrison IG % 1.1 % Critically high 0.0-0.[address] [facility] Comment on above: Performed By: #### B MP #### [facility] [address] [place] [address] Dr. Silver Harrison LYMPH # 2.4 103/ul Normal 1.2-3.[address] [facility] Comment on above: Performed By: #### B MP #### [facility] [address] [place] [address] Dr. Silver Harrison Lymphocytes/100 WBC (Bld) 22.0 % Normal 20.5-60.[address] [facility] Comment on above: Performed By: #### B MP #### [facility] [address] [place] [address] Dr. Silver Harrison MANUAL DIFF REQ NO Normal [facility] Comment on above: Performed By: #### B MP #### [facility] [address] [place] [address] Dr. Silver Harrison MCH (RBC) [Entitic mass] 28.9 pg Normal 26.7-34.[address] [facility] Comment on above: Performed By: #### B MP #### [facility] [address] [place] [address] Dr. Silver Harrison MCHC (RBC) [Mass/Vol] 30.6 g/dL Normal 29.9-35.[address] [facility] Comment on above: Performed By: #### B MP #### [facility] [address] [place] [address] Dr. Silver Harrison MCV (RBC) [Entitic vol] 94.4 fL Normal 81.0-99.[address] [facility] Comment on above: Performed By: #### B MP #### [facility] [address] [place] [address] Dr. Silver Harrison MONO # 0.5 103/ul Normal 0.3-0.[address] [facility] Comment on above: Performed By: #### B MP #### [facility] [address] [address] [address] Silver Harrison Monocytes/100 WBC (Bld) 4.8 % Normal 1.7-12.[address] [facility] Comment on above: Performed By: #### B MP #### [facility] [address] [address] [address] Silver Harrison NEUT # 7.4 103/ul Critically high 1.4-6.[address] [facility] Comment on above: Performed By: #### B MP #### [facility] [address] [address] [address] Silver Harrison Neutrophils/100 WBC (Bld) 69.2 % Normal 43.0-75.[address] [facility] Comment on above: Performed By: #### B MP #### [facility] [address] [address] [address] Silver Harrison Platelet mean volume (Bld) [Entitic vol] 9.8 fL Normal 9.5-13.[address] [facility] Comment on above: Performed By: #### B MP #### [facility] [address] [address] [address] Silver Harrison PLT 146 103/ul Critically low 150-450 [facility] Comment on above: Performed By: #### B MP #### [facility] [address] [address] [address] Silver Harrison RBC 3.05 106/ul Critically low 4.20-5.40 [facility] Comment on above: Performed By: #### B MP #### [facility] [address] [address] [address] Silver Harrison WBC 10.7 103/ul Normal 4.0-11.0 [facility] Comment on above: Performed By: #### B MP #### [facility] [address] [place] [address] Dr. Silver Harrison PHOSPHORUSon 07-24-2022 Phosphate [Mass/Vol] 4.5 mg/dL Normal 2.6-4.[address] [facility] Comment on above: Performed By: #### U SUNITA, MG, RENAL #### [facility] [address] [place] [address] Dr. Silver Harrison PROF CHEM 8 (BAS METB)on Anion gap [Moles/Vol] 13.6 mmol/L Normal [facility] Comment on above: Performed By: #### U SUNITA, MG, RENAL #### [facility] [address] [place] [address] Dr. Silver Harrison Calcium [Mass/Vol] 8.5 mg/dL Normal 8.5-10.[address] [facility] Comment on above: Performed By: #### U SUNITA, MG, RENAL #### [facility] [address] [place] [address] Dr. Silver Harrison Chloride [Moles/Vol] 105 mmol/L Normal 98-[address] [facility] Comment on above: Performed By: #### U SUNITA, MG, RENAL #### [facility] [address] [place] [address] Dr. Silver Harrison CO2 [Moles/Vol] 25.8 mmol/L Normal 21.0-32.[address] [facility] Comment on above: Performed By: #### U SUNITA, MG, RENAL #### [facility] [address] [place] [address] Dr. Silver Harrison Creatinine [Mass/Vol] 4.02 mg/dL Critically high 0.55-1.[address] [facility] Comment on above: Performed By: #### U SUNITA, MG, RENAL #### [facility] [address] [place] [address] Dr. Silver Harrison EGFR-AF SRI LANKAN 13 mL/min/1.73m2 Critically low >=[address] [facility] Comment on above: Performed By: #### U SUNITA, MG, RENAL #### [facility] [address] [place] [address] Dr. Silver Harrison EGFR-NON AF SRI LANKAN 11 mL/min/1.73m2 Critically low >=[address] [facility] Comment on above: Performed By: #### U SUNITA, MG, RENAL #### [facility] [address] [address] [address] Silver Harrison Glucose [Mass/Vol] 74 mg/dL Normal 74-106 [facility] Comment on above: Performed By: #### U SUNITA, MG, RENAL #### [facility] [address] [place] [address] Dr. Silver Harrison Potassium [Moles/Vol] 4.4 mmol/L Normal 3.5-5.1 [facility] Comment on above: Performed By: #### U SUNITA, MG, RENAL #### [facility] [address] [place] [address] Dr. Silver Harrison Sodium [Moles/Vol] 140 mmol/L Normal 136-145 [facility] Comment on above: Performed By: #### U SUNITA, MG, RENAL #### [facility] [address] [place] [address] Dr. Silver Harrison Urea nitrogen [Mass/Vol] 45.0 mg/dL Critically high 7.0-18.[address] [facility] Comment on above: Performed By: #### U SUNITA, MG, RENAL #### [facility] [address] [place] [address] Dr. Silver Harrison Urea nitrogen/Creatinine [Mass ratio] 11.2 mg/mg Normal [facility] Comment on above: Performed By: #### U SUNITA, MG, RENAL #### [facility] [address] [place] [address] Dr. Silver Harrison HEPATITIS PANEL, ACUTEon HBsAg Screen Negative Normal Negative [facility] Comment on above: Performed By: #### H EPACUT #### [facility] [address] [place] [address] Dr. Silver Harrison HCV AB Non-Reactive Normal Non Reactive [facility] Comment on above: Performed By: #### H EPACUT #### [facility] [address] [place] [address] Dr. Silver Harrison Hep A Ab, IgM Negative Normal Negative [facility] Comment on above: Performed By: #### H EPACUT #### [facility] [address] [place] [address] Dr. Silver Harrison Hep B Core Ab, IgM Negative Normal Negative [facility] Comment on above: Performed By: #### H EPACUT #### [facility] [address] [place] [address] Dr. Silver Harrison Interpretation: Comment Normal [facility] Comment on above: Result Comment: Not infected with HCV unless early or acute infection is suspected (which may be delayed in an immunocompromised individual), or other evidence exists to indicate HCV infection. Performed By: #### H EPACUT #### [facility] [address] [place] [address] Dr. Silver Harrison PTH INTACTon 07-21-2022 PTH, Intact 164 pg/mL Critically high 15-[address] [facility] Comment on above: Performed By: #### U SUNITA, MG, RENAL #### [facility] [address] [place] [address] Dr. Silver Harrison CBC AUTO DIFFon 07-20-2022 BASO # 0.0 103/ul Normal 0.0-0.[address] [facility] Comment on above: Performed By: #### C BC #### [facility] [address] [place] [address] Dr. Silver Harrison Basophils/100 WBC (Bld) 0.3 % Normal 0.2-2.[address] [facility] Comment on above: Performed By: #### C BC #### [facility] [address] [place] [address] Dr. Silver Harrison EO # 0.2 103/ul Normal 0.0-0.7 [facility] Comment on above: Performed By: #### C BC #### [facility] [address] [place] [address] Dr. Silver Harrison Eosinophils/100 WBC (Bld) 2.5 % Normal 0.9-7.0 [facility] Comment on above: Performed By: #### C BC #### [facility] [address] [place] [address] Dr. Silver Harrison Erythrocyte distribution width (RBC) [Ratio] 13.2 % Normal 11.0-15.[address] [facility] Comment on above: Performed By: #### C BC #### [facility] [address] [place] [address] Dr. Silver Harrison Hematocrit (Bld) [Volume fraction] 28.7 % Critically low 36.0-48.[address] [facility] Comment on above: Performed By: #### C BC #### [facility] [address] [place] [address] Dr. Silver Harrison Hemoglobin (Bld) [Mass/Vol] 8.6 g/dL Critically low 12.0-16.[address] [facility] Comment on above: Performed By: #### C BC #### [facility] [address] [place] [address] Dr. Silver Harrison IG # 0.05 10e3/ul Critically high 0.00-0.[address] [facility] Comment on above: Performed By: #### C BC #### [facility] [address] [place] [address] Dr. Silver Harrison IG % 0.5 % Normal 0.0-0.[address] [facility] Comment on above: Performed By: #### C BC #### [facility] [address] [place] [address] Dr. Silver Harrison LYMPH # 1.9 103/ul Normal 1.2-3.[address] [facility] Comment on above: Performed By: #### C BC #### [facility] [address] [place] [address] Dr. Silver Harrison Lymphocytes/100 WBC (Bld) 20.3 % Critically low 20.5-60.[address] [facility] Comment on above: Performed By: #### C BC #### [facility] [address] [place] [address] Dr. Silver Harrison MANUAL DIFF REQ NO Normal [facility] Comment on above: Performed By: #### C BC #### [facility] [address] [place] [address] Dr. Silver Harrison MCH (RBC) [Entitic mass] 28.9 pg Normal 26.7-34.[address] [facility] Comment on above: Performed By: #### C BC #### [facility] [address] [place] [address] Dr. Silver Harrison MCHC (RBC) [Mass/Vol] 30.0 g/dL Normal 29.9-35.2 [facility] Comment on above: Performed By: #### C BC #### [facility] [address] [place] [address] Dr. Silver Harrison MCV (RBC) [Entitic vol] 96.3 fL Normal 81.0-99.0 [facility] Comment on above: Performed By: #### C BC #### [facility] [address] [place] [address] Dr. Silver Harrison MONO # 0.6 103/ul Normal 0.3-0.8 [facility] Comment on above: Performed By: #### C BC #### [facility] [address] [place] [address] Dr. Silver Harrison Monocytes/100 WBC (Bld) 6.1 % Normal 1.7-12.0 [facility] Comment on above: Performed By: #### C BC #### [facility] [address] [place] [address] Dr. Silver Harrison NEUT # 6.5 103/ul Normal 1.4-6.[address] [facility] Comment on above: Performed By: #### C BC #### [facility] [address] [place] [address] Dr. Silver Harrison Neutrophils/100 WBC (Bld) 70.3 % Normal 43.0-75.0 [facility] Comment on above: Performed By: #### C BC #### [facility] [address] [place] [address] Dr. Silver Harrison Platelet mean volume (Bld) [Entitic vol] 9.8 fL Normal 9.5-13.5 [facility] Comment on above: Performed By: #### C BC #### [facility] [address] [place] [address] Dr. Silevr Harrison PLT 171 103/ul Normal 150-450 [facility] Comment on above: Performed By: #### C BC #### [facility] [address] [place] [address] Dr. Silver Harrison RBC 2.98 106/ul Critically low 4.20-5.[address] [facility] Comment on above: Performed By: #### C BC #### [facility] [address] [place] [address] Dr. Silver Harrison WBC 9.3 103/ul Normal 4.0-11.[address] [facility] Comment on above: Performed By: #### C BC #### [facility] [address] [place] [address] Dr. Silver Harrison FERRITINon 07-20-2022 Ferritin [Mass/Vol] 381.0 ng/mL Critically high 8.0-252.[address] [facility] Comment on above: Performed By: #### B MP #### [facility] [address] [place] [address] Dr. Silver Harrison IRON AND TIBCon 07-20-2022 % SATURATION 14.6 % Normal [facility] Comment on above: Performed By: #### B MP #### [facility] [address] [place] [address] Dr. Silver Harrison Iron [Mass/Vol] 30.0 ug/dL Critically low 50.0-170.[address] [facility] Comment on above: Performed By: #### B MP #### [facility] [address] [place] [address] Dr. Silver Harrison TIBC DIRECT 206.0 ug/dL Critically low 250.0-450. [address] [facility] Comment on above: Performed By: #### B MP #### [facility] [address] [place] [address] Dr. Silver Harrison PROF 14(COMP METB)on 023 Albumin [Mass/Vol] 2.8 g/dL Critically low 3.4-5.0 e [facility] Comment on above: Performed By: #### B MP #### [facility] [address] [place] [address] Dr. Silver Harrison Albumin/Globulin [Mass ratio] 0.5 {ratio} Normal [facility] Comment on above: Performed By: #### B MP #### [facility] [address] [address] [address] Silver Harrison ALP [Catalytic activity/Vol] 145 U/L Critically high 46-[address] [facility] Comment on above: Performed By: #### B MP #### [facility] [address] [place] [address] Dr. Silver Harrison ALT [Catalytic activity/Vol] 13 U/L Critically low 14-[address] [facility] Comment on above: Performed By: #### B MP #### [facility] [address] [address] [address] Silver Harrison Anion gap [Moles/Vol] 15.6 mmol/L Normal [facility] Comment on above: Performed By: #### B MP #### [facility] [address] [place] [address] Dr. Silver Harrison AST [Catalytic activity/Vol] 12 U/L Critically low 15-[address] [facility] Comment on above: Performed By: #### B MP #### [facility] [address] [place] [address] Dr. Silver Harrison Bilirubin [Mass/Vol] 0.2 mg/dL Normal 0.2-1.[address] [facility] Comment on above: Performed By: #### B MP #### [facility] [address] [place] [address] Dr. iSlver Harrison Calcium [Mass/Vol] 8.3 mg/dL Critically low 8.5-10.1 [facility] Comment on above: Performed By: #### B MP #### [facility] [address] [place] [address] Dr. Silver Harrison Chloride [Moles/Vol] 113 mmol/L Critically high 98-[address] [facility] Comment on above: Performed By: #### B MP #### [facility] [address] [place] [address] Dr. Silver Harrison CO2 [Moles/Vol] 25.1 mmol/L Normal 21.0-32.[address] [facility] Comment on above: Performed By: #### B MP #### [facility] [address] [place] [address] Dr. Silver Harrison Creatinine [Mass/Vol] 4.32 mg/dL Critically high 0.55-1.[address] [facility] Comment on above: Performed By: #### B MP #### [facility] [address] [address] [address] Silver Harrison EGFR-AF SRI LANKAN 12 mL/min/1.73m2 Critically low >=[address] [facility] Comment on above: Performed By: #### B MP #### [facility] [address] [address] [address] Silver Harrison EGFR-NON AF SRI LANKAN 10 mL/min/1.73m2 Critically low >=[address] [facility] Comment on above: Performed By: #### B MP #### [facility] [address] [place] [address] Dr. Silver Harrison Globulin (S) [Mass/Vol] 5.6 g/dL Normal [facility] Comment on above: Performed By: #### B MP #### [facility] [address] [place] [address] Dr. Silver Harrison Glucose [Mass/Vol] 45 mg/dL Critically low 74-106 [facility] Comment on above: Performed By: #### B MP #### [facility] [address] [place] [address] Dr. Silver Harrison Potassium [Moles/Vol] 4.7 mmol/L Normal 3.5-5.[address] [facility] Comment on above: Performed By: #### B MP #### [facility] [address] [place] [address] Dr. Silver Harrison Protein [Mass/Vol] 8.4 g/dL Critically high 6.4-8.2 [facility] Comment on above: Performed By: #### B MP #### [facility] [address] [place] [address] Dr. Silver Harrison Sodium [Moles/Vol] 149 mmol/L Critically high 136-145 [facility] Comment on above: Performed By: #### B MP #### [facility] [address] [place] [address] Dr. Silver Harrison Urea nitrogen [Mass/Vol] 54.0 mg/dL Critically high 7.0-18.[address] [facility] Comment on above: Performed By: #### B MP #### [facility] [address] [place] [address] Dr. Silver Harrison Urea nitrogen/Creatinine [Mass ratio] 12.5 mg/mg Normal [facility] Comment on above: Performed By: #### B MP #### [facility] [address] [place] [address] Dr. Silver Harrison VIT B12 AND FOLATEon 023 Cobalamin (Vitamin B12) [Mass/Vol] 395.0 pg/mL Normal 193.0-986. [address] [facility] Comment on above: Performed By: #### B MP #### [facility] [address] [place] [address] Dr. Silver Harrison FOLATE 5.60 ng/mL Critically low 8.60-58.[address] [facility] Comment on above: Performed By: #### B MP #### [facility] [address] [place] [address] Dr. Silver Harrison CBC AUTO DIFFon 07-17-2022 BASO # 0.0 103/ul Normal 0.0-0.[address] [facility] Comment on above: Performed By: #### C BC #### [facility] [address] [place] [address] Dr. Silver Harrison Basophils/100 WBC (Bld) 0.5 % Normal 0.2-2.0 [facility] Comment on above: Performed By: #### C BC #### [facility] [address] [place] [address] Dr. Silver Harrison EO # 0.2 103/ul Normal 0.0-0.7 [facility] Comment on above: Performed By: #### C BC #### [facility] [address] [place] [address] Dr. Silver Harrison Eosinophils/100 WBC (Bld) 2.6 % Normal 0.9-7.0 [facility] Comment on above: Performed By: #### C BC #### [facility] [address] [place] [address] Dr. Silver Harrison Erythrocyte distribution width (RBC) [Ratio] 13.2 % Normal 11.0-15.[address] [facility] Comment on above: Performed By: #### C BC #### [facility] [address] [place] [address] Dr. Silver Harrison Hematocrit (Bld) [Volume fraction] 25.7 % Critically low 36.0-48.[address] [facility] Comment on above: Performed By: #### C BC #### [facility] [address] [place] [address] Dr. Silver Harrison Hemoglobin (Bld) [Mass/Vol] 7.7 g/dL Critically low 12.0-16.[address] [facility] Comment on above: Performed By: #### C BC #### [facility] [address] [place] [address] Dr. Silver Harrison IG # 0.04 10e3/ul Critically high 0.00-0.[address] [facility] Comment on above: Performed By: #### C BC #### [facility] [address] [place] [address] Dr. Silver Harrison IG % 0.5 % Normal 0.0-0.[address] [facility] Comment on above: Performed By: #### C BC #### [facility] [address] [place] [address] Dr. Silver Harrison LYMPH # 1.9 103/ul Normal 1.2-3.[address] [facility] Comment on above: Performed By: #### C BC #### [facility] [address] [place] [address] Dr. Silver Harrison Lymphocytes/100 WBC (Bld) 21.8 % Normal 20.5-60.[address] [facility] Comment on above: Performed By: #### C BC #### [facility] [address] [place] [address] Dr. Silver Harrison MANUAL DIFF REQ NO Normal [facility] Comment on above: Performed By: #### C BC #### [facility] [address] [place] [address] Dr. Silver Harrison MCH (RBC) [Entitic mass] 29.2 pg Normal 26.7-34.[address] [facility] Comment on above: Performed By: #### C BC #### [facility] [address] [place] [address] Dr. Silver Harrison MCHC (RBC) [Mass/Vol] 30.0 g/dL Normal 29.9-35.[address] [facility] Comment on above: Performed By: #### C BC #### [facility] [address] [place] [address] Dr. Silver Harrison MCV (RBC) [Entitic vol] 97.3 fL Normal 81.0-99.[address] [facility] Comment on above: Performed By: #### C BC #### [facility] [address] [place] [address] Dr. Silver Harrison MONO # 0.6 103/ul Normal 0.3-0.[address] [facility] Comment on above: Performed By: #### C BC #### [facility] [address] [place] [address] Dr. Silver Harrison Monocytes/100 WBC (Bld) 7.3 % Normal 1.7-12.[address] [facility] Comment on above: Performed By: #### C BC #### [facility] [address] [place] [address] Dr. Silver Harrison NEUT # 5.7 103/ul Normal 1.4-6.[address] [facility] Comment on above: Performed By: #### C BC #### [facility] [address] [place] [address] Dr. Silver Harrison Neutrophils/100 WBC (Bld) 67.3 % Normal 43.0-75.0 [facility] Comment on above: Performed By: #### C BC #### [facility] [address] [place] [address] Dr. Silver Harrison Platelet mean volume (Bld) [Entitic vol] 10.0 fL Normal 9.5-13.5 [facility] Comment on above: Performed By: #### C BC #### [facility] [address] [place] [address] Dr. Silver Harrison PLT 154 103/ul Normal 150-[address] [facility] Comment on above: Performed By: #### C BC #### [facility] [address] [place] [address] Dr. Silver Harrison RBC 2.64 106/ul Critically low 4.20-5.[address] [facility] Comment on above: Performed By: #### C BC #### [facility] [address] [place] [address] Dr. Silver Harrison WBC 8.5 103/ul Normal 4.0-11.[address] [facility] Comment on above: Performed By: #### C BC #### [facility] [address] [place] [address] Dr. Silver Harrison PHOSPHORUSon 07-17-2022 Phosphate [Mass/Vol] 4.9 mg/dL Critically high 2.6-4.[address] [facility] Comment on above: Performed By: #### U SUNITA, MG, RENAL #### [facility] [address] [place] [address] Dr. Silver Harrison PROF CHEM 8 (BAS METB)on Anion gap [Moles/Vol] 12.1 mmol/L Normal [facility] Comment on above: Performed By: #### U SUNITA, MG, RENAL #### [facility] [address] [place] [address] Dr. Silver Harrison Calcium [Mass/Vol] 7.9 mg/dL Critically low 8.5-10.1 [facility] Comment on above: Performed By: #### U SUNITA, MG, RENAL #### [facility] [address] [place] [address] Dr. Silver Harrison Chloride [Moles/Vol] 108 mmol/L Critically high 98-[address] [facility] Comment on above: Performed By: #### U SUNITA, MG, RENAL #### [facility] [address] [place] [address] Dr. Silver Harrison CO2 [Moles/Vol] 26.4 mmol/L Normal 21.0-32.[address] [facility] Comment on above: Performed By: #### U SUNITA, MG, RENAL #### [facility] [address] [address] [address] Silver Harrison Creatinine [Mass/Vol] 4.33 mg/dL Critically high 0.55-1.[address] [facility] Comment on above: Performed By: #### U SUNITA, MG, RENAL #### [facility] [address] [address] [address] Silver Harrison EGFR-AF SRI LANKAN 12 mL/min/1.73m2 Critically low >=[address] [facility] Comment on above: Performed By: #### U SNUITA, MG, RENAL #### [facility] [address] [address] [address] Silver Harrison EGFR-NON AF SRI LANKAN 10 mL/min/1.73m2 Critically low >=[address] [facility] Comment on above: Performed By: #### U SUNITA, MG, RENAL #### [facility] [address] [address] [address] Silver Harrison Glucose [Mass/Vol] 86 mg/dL Normal 74-[address] [facility] Comment on above: Performed By: #### U SUNITA, MG, RENAL #### [facility] [address] [address] [address] Silver Harirson Potassium [Moles/Vol] 4.5 mmol/L Normal 3.5-5.[address] [facility] Comment on above: Performed By: #### U SUNITA, MG, RENAL #### [facility] [address] [address] [address] Silver Harrison Sodium [Moles/Vol] 142 mmol/L Normal 136-[address] [facility] Comment on above: Performed By: #### U SUNITA, MG, RENAL #### [facility] [address] [address] [address] Silver Harrison Urea nitrogen [Mass/Vol] 50.0 mg/dL Critically high 7.0-18.[address] [facility] Comment on above: Performed By: #### U SUNITA, MG, RENAL #### [facility] [address] [address] [address] Silver Harrison Urea nitrogen/Creatinine [Mass ratio] 11.5 mg/mg Normal [facility] Comment on above: Performed By: #### U SUNITA, MG, RENAL #### [facility] [address] [place] [address] Dr. Silver Harrison CBC AUTO DIFFon 07-03-2022 BASO # 0.0 103/ul Normal 0.0-0.1 [facility] Comment on above: Performed By: #### U SUNITA, MG, RENAL #### [facility] [address] [place] [address] Dr. Silver Harrison Basophils/100 WBC (Bld) 0.4 % Normal 0.2-2.0 [facility] Comment on above: Performed By: #### U SUNITA, MG, RENAL #### [facility] [address] [place] [address] Dr. Silver Harrison EO # 0.3 103/ul Normal 0.0-0.7 [facility] Comment on above: Performed By: #### U SUNITA, MG, RENAL #### [facility] [address] [place] [address] Dr. Silver Harrison Eosinophils/100 WBC (Bld) 2.9 % Normal 0.9-7.0 [facility] Comment on above: Performed By: #### U SUNITA, MG, RENAL #### [facility] [address] [place] [address] Dr. Silver Harrison Erythrocyte distribution width (RBC) [Ratio] 12.9 % Normal 11.0-15.[address] [facility] Comment on above: Performed By: #### U SUNITA, MG, RENAL #### [facility] [address] [place] [address] Dr. Silver Harrison Hematocrit (Bld) [Volume fraction] 28.0 % Critically low 36.0-48.0 [facility] Comment on above: Performed By: #### U SUNITA, MG, RENAL #### [facility] [address] [place] [address] Dr. Silver Harrison Hemoglobin (Bld) [Mass/Vol] 8.5 g/dL Critically low 12.0-16.0 [facility] Comment on above: Performed By: #### U SUNITA, MG, RENAL #### [facility] [address] [address] [address] Silver Harrison IG # 0.07 10e3/ul Critically high 0.00-0.[address] [facility] Comment on above: Performed By: #### U SUNITA, MG, RENAL #### [facility] [address] [address] [address] Silver Harrison IG % 0.7 % Critically high 0.0-0.[address] [facility] Comment on above: Performed By: #### U SUNITA, MG, RENAL #### [facility] [address] [address] [address] Silver Harrison LYMPH # 1.7 103/ul Normal 1.2-3.[address] [facility] Comment on above: Performed By: #### U SUNITA, MG, RENAL #### [facility] [address] [place] [address] Dr. Silver Harrison Lymphocytes/100 WBC (Bld) 17.7 % Critically low 20.5-60.[address] [facility] Comment on above: Performed By: #### U SUNITA, MG, RENAL #### [facility] [address] [address] [address] Silver Harrison MANUAL DIFF REQ NO Normal [facility] Comment on above: Performed By: #### U SUNITA, MG, RENAL #### [facility] [address] [place] [address] Dr. Silver Harrison MCH (RBC) [Entitic mass] 29.0 pg Normal 26.7-34.[address] [facility] Comment on above: Performed By: #### U SUNITA, MG, RENAL #### [facility] [address] [address] [address] Silver Harrison MCHC (RBC) [Mass/Vol] 30.4 g/dL Normal 29.9-35.[address] [facility] Comment on above: Performed By: #### U SUNITA, MG, RENAL #### [facility] [address] [address] [address] Silver Harrison MCV (RBC) [Entitic vol] 95.6 fL Normal 81.0-99.0 [facility] Comment on above: Performed By: #### U SUNITA, MG, RENAL #### [facility] [address] [address] [address] Silver Harrison MONO # 0.6 103/ul Normal 0.3-0.8 [facility] Comment on above: Performed By: #### U SUNITA, MG, RENAL #### [facility] [address] [place] [address] Dr. Silver Harrison Monocytes/100 WBC (Bld) 5.7 % Normal 1.7-12.[address] [facility] Comment on above: Performed By: #### U SUNITA, MG, RENAL #### [facility] [address] [place] [address] Dr. Silver Harrison NEUT # 7.1 103/ul Critically high 1.4-6.[address] [facility] Comment on above: Performed By: #### U SUNITA, MG, RENAL #### [facility] [address] [place] [address] Dr. Silver Harrison Neutrophils/100 WBC (Bld) 72.6 % Normal 43.0-75.0 [facility] Comment on above: Performed By: #### U SUNITA, MG, RENAL #### [facility] [address] [place] [address] Dr. Silver Harrison Platelet mean volume (Bld) [Entitic vol] 9.8 fL Normal 9.5-13.5 [facility] Comment on above: Performed By: #### U SUNITA, MG, RENAL #### [facility] [address] [place] [address] Dr. Silver Harrison PLT 188 103/ul Normal 150-450 [facility] Comment on above: Performed By: #### U SUNITA, MG, RENAL #### [facility] [address] [place] [address] Dr. Silver Harrison RBC 2.93 106/ul Critically low 4.20-5.40 [facility] Comment on above: Performed By: #### U SUNITA, MG, RENAL #### [facility] [address] [place] [address] Dr. Silver Harrison WBC 9.7 103/ul Normal 4.0-11.[address] [facility] Comment on above: Performed By: #### U SUNITA, MG, RENAL #### [facility] [address] [address] [address] Silver Harrison PROF CHEM 8 (BAS METB)on Anion gap [Moles/Vol] 10.9 mmol/L Normal Th [facility] Comment on above: Performed By: #### B MP #### [facility] [address] [address] [address] Silver Harrisno Calcium [Mass/Vol] 8.5 mg/dL Normal 8.5-10.[address] [facility] Comment on above: Performed By: #### B MP #### [facility] [address] [place] [address] Dr. Silver Harrison Chloride [Moles/Vol] 108 mmol/L Critically high 98-[address] [facility] Comment on above: Performed By: #### B MP #### [facility] [address] [place] [address] Dr. Silver Harrison CO2 [Moles/Vol] 28.6 mmol/L Normal 21.0-32.[address] [facility] Comment on above: Performed By: #### B MP #### [facility] [address] [place] [address] Dr. Silver Harrison Creatinine [Mass/Vol] 4.05 mg/dL Critically high 0.55-1.[address] [facility] Comment on above: Performed By: #### B MP #### [facility] [address] [place] [address] Dr. Silver Harrison EGFR-AF SRI LANKAN 13 mL/min/1.73m2 Critically low >=60 [facility] Comment on above: Performed By: #### B MP #### [facility] [address] [place] [address] Dr. Silver Harrison EGFR-NON AF SRI LANKAN 11 mL/min/1.73m2 Critically low >=60 [facility] Comment on above: Performed By: #### B MP #### [facility] [address] [place] [address] Dr. Silver Harrison Glucose [Mass/Vol] 74 mg/dL Normal 74-106 [facility] Comment on above: Performed By: #### B MP #### [facility] [address] [address] [address] Silver Harrison Potassium [Moles/Vol] 4.5 mmol/L Normal 3.5-5.[address] [facility] Comment on above: Performed By: #### B MP #### [facility] [address] [address] [address] Silver Harrison Sodium [Moles/Vol] 143 mmol/L Normal 136-145 [facility] Comment on above: Performed By: #### B MP #### [facility] [address] [place] [address] Dr. Silver Harrison Urea nitrogen [Mass/Vol] 45.0 mg/dL Critically high 7.0-18.[address] [facility] Comment on above: Performed By: #### B MP #### [facility] [address] [place] [address] Dr. Silver Harrison Urea nitrogen/Creatinine [Mass ratio] 11.1 mg/mg Normal [facility] Comment on above: Performed By: #### B MP #### [facility] [address] [place] [address] Dr. Silver Harrison CBC AUTO DIFFon 07-01-2022 BASO # 0.1 103/ul Normal 0.0-0.[address] [facility] Comment on above: Performed By: #### U SUNITA, MG, RENAL #### [facility] [address] [place] [address] Dr. Silver Harrison Basophils/100 WBC (Bld) 0.5 % Normal 0.2-2.0 [facility] Comment on above: Performed By: #### U SUNITA, MG, RENAL #### [facility] [address] [place] [address] Dr. Silver Harrison EO # 0.2 103/ul Normal 0.0-0.[address] [facility] Comment on above: Performed By: #### U SUNITA, MG, RENAL #### [facility] [address] [address] [address] Silver Harrison Eosinophils/100 WBC (Bld) 2.4 % Normal 0.9-7.0 [facility] Comment on above: Performed By: #### U SUNITA, MG, RENAL #### [facility] [address] [place] [address] Dr. Silver Harrison Erythrocyte distribution width (RBC) [Ratio] 12.7 % Normal 11.0-15.0 [facility] Comment on above: Performed By: #### U SUNITA, MG, RENAL #### [facility] [address] [place] [address] Dr. Silver Harrison Hematocrit (Bld) [Volume fraction] 27.9 % Critically low 36.0-48.[address] [facility] Comment on above: Performed By: #### U SUNITA, MG, RENAL #### [facility] [address] [place] [address] Dr. Silver Harrison Hemoglobin (Bld) [Mass/Vol] 8.6 g/dL Critically low 12.0-16.0 [facility] Comment on above: Performed By: #### U SUNITA, MG, RENAL #### [facility] [address] [place] [address] Dr. Silver Harrison IG # 0.10 10e3/ul Critically high 0.00-0.03 [facility] Comment on above: Performed By: #### U SUNITA, MG, RENAL #### [facility] [address] [place] [address] Dr. Silver Harrison IG % 1.0 % Critically high 0.0-0.5 [facility] Comment on above: Performed By: #### U SUNITA, MG, RENAL #### [facility] [address] [place] [address] Dr. Silver Harrison LYMPH # 1.9 103/ul Normal 1.2-3.8 [facility] Comment on above: Performed By: #### U SUNITA, MG, RENAL #### [facility] [address] [place] [address] Dr. Silver Harrison Lymphocytes/100 WBC (Bld) 19.1 % Critically low 20.5-60.0 [facility] Comment on above: Performed By: #### U SUNITA, MG, RENAL #### [facility] [address] [place] [address] Dr. Silver Harrison MANUAL DIFF REQ NO Normal [facility] Comment on above: Performed By: #### U SUNITA, MG, RENAL #### [facility] [address] [place] [address] Dr. Silver Harrison MCH (RBC) [Entitic mass] 29.5 pg Normal 26.7-34.[address] [facility] Comment on above: Performed By: #### U SUNITA, MG, RENAL #### [facility] [address] [place] [address] Dr. Silver Harrison MCHC (RBC) [Mass/Vol] 30.8 g/dL Normal 29.9-35.[address] [facility] Comment on above: Performed By: #### U SUNITA, MG, RENAL #### [facility] [address] [place] [address] Dr. Silver Harrison MCV (RBC) [Entitic vol] 95.5 fL Normal 81.0-99.[address] [facility] Comment on above: Performed By: #### U SUNITA, MG, RENAL #### [facility] [address] [place] [address] Dr. Silver Harrison MONO # 0.6 103/ul Normal 0.3-0.[address] [facility] Comment on above: Performed By: #### U SUNITA, MG, RENAL #### [facility] [address] [place] [address] Dr. Silver Harrison Monocytes/100 WBC (Bld) 5.4 % Normal 1.7-12.0 [facility] Comment on above: Performed By: #### U SUNITA, MG, RENAL #### [facility] [address] [place] [address] Dr. Silver Harrison NEUT # 7.3 103/ul Critically high 1.4-6.[address] [facility] Comment on above: Performed By: #### U SUNITA, MG, RENAL #### [facility] [address] [place] [address] Dr. Silver Harrison Neutrophils/100 WBC (Bld) 71.6 % Normal 43.0-75.[address] [facility] Comment on above: Performed By: #### U SUNITA, MG, RENAL #### [facility] [address] [address] [address] Silver Harrison Platelet mean volume (Bld) [Entitic vol] 10.0 fL Normal 9.5-13.[address] [facility] Comment on above: Performed By: #### U SUNITA, MG, RENAL #### [facility] [address] [place] [address] Dr. Silver Harrison PLT 208 103/ul Normal 150-[address] [facility] Comment on above: Performed By: #### U SUNITA, MG, RENAL #### [facility] [address] [place] [address] Dr. Silver Harrison RBC 2.92 106/ul Critically low 4.20-5.[address] [facility] Comment on above: Performed By: #### U SUNITA, MG, RENAL #### [facility] [address] [place] [address] Dr. Silver Harrison WBC 10.2 103/ul Normal 4.0-11.[address] [facility] Comment on above: Performed By: #### U SUNITA, MG, RENAL #### [facility] [address] [place] [address] Dr. Silver Harrison PROF CHEM 8 (BAS METB)on Anion gap [Moles/Vol] 12.7 mmol/L Normal [facility] Comment on above: Performed By: #### B MP #### [facility] [address] [place] [address] Dr. Silver Harrison Calcium [Mass/Vol] 8.5 mg/dL Normal 8.5-10.1 [facility] Comment on above: Performed By: #### B MP #### [facility] [address] [place] [address] Dr. Silver Harrison Chloride [Moles/Vol] 108 mmol/L Critically high 98-107 [facility] Comment on above: Performed By: #### B MP #### [facility] [address] [address] [address] Silver Harrison CO2 [Moles/Vol] 26.9 mmol/L Normal 21.0-32.[address] [facility] Comment on above: Performed By: #### B MP #### [facility] [address] [address] [address] Silver Harrison Creatinine [Mass/Vol] 4.31 mg/dL Critically high 0.55-1.[address] [facility] Comment on above: Performed By: #### B MP #### [facility] [address] [address] [address] Silver Harrison EGFR-AF SRI LANKAN 12 mL/min/1.73m2 Critically low >=[address] [facility] Comment on above: Performed By: #### B MP #### [facility] [address] [address] [address] Silver Harrison EGFR-NON AF SRI LANKAN 10 mL/min/1.73m2 Critically low >=[address] [facility] Comment on above: Performed By: #### B MP #### [facility] [address] [address] [address] Silver Harrison Glucose [Mass/Vol] 141 mg/dL Critically high 74-106 [facility] Comment on above: Performed By: #### B MP #### [facility] [address] [address] [address] Silver Harrison Potassium [Moles/Vol] 4.6 mmol/L Normal 3.5-5.[address] [facility] Comment on above: Performed By: #### B MP #### [facility] [address] [address] [address] Silver Harrison Sodium [Moles/Vol] 143 mmol/L Normal 136-[address] [facility] Comment on above: Performed By: #### B MP #### [facility] [address] [address] [address] Silver Harrison Urea nitrogen [Mass/Vol] 47.0 mg/dL Critically high 7.0-18.[address] [facility] Comment on above: Performed By: #### B MP #### [facility] [address] [place] [address] Dr. Silver Harrison Urea nitrogen/Creatinine [Mass ratio] 10.9 mg/mg Normal [facility] Comment on above: Performed By: #### B MP #### [facility] [address] [place] [address] Dr. Silver Harrison PTH INTACTon 06-25-2022 PTH, Intact 132 pg/mL Critically high 15-65 [facility] Comment on above: Performed By: #### U SUNITA, MG, RENAL #### [facility] [address] [place] [address] Dr. Silver Harrison CBC AUTO DIFFon 06-24-2022 BASO # 0.0 103/ul Normal 0.0-0.1 [facility] Comment on above: Performed By: #### B MP #### [facility] [address] [place] [address] Dr. Silver Harrison Basophils/100 WBC (Bld) 0.5 % Normal 0.2-2.[address] [facility] Comment on above: Performed By: #### B MP #### [facility] [address] [place] [address] Dr. Silver Harrison EO # 0.2 103/ul Normal 0.0-0.7 [facility] Comment on above: Performed By: #### B MP #### [facility] [address] [place] [address] Dr. Silver Harrison Eosinophils/100 WBC (Bld) 2.8 % Normal 0.9-7.0 [facility] Comment on above: Performed By: #### B MP #### [facility] [address] [place] [address] Dr. Silver Harrison Erythrocyte distribution width (RBC) [Ratio] 12.5 % Normal 11.0-15.0 [facility] Comment on above: Performed By: #### B MP #### [facility] [address] [place] [address] Dr. Silver Harrison Hematocrit (Bld) [Volume fraction] 26.0 % Critically low 36.0-48.[address] [facility] Comment on above: Performed By: #### B MP #### [facility] [address] [address] [address] Silver Harrison Hemoglobin (Bld) [Mass/Vol] 8.1 g/dL Critically low 12.0-16.[address] [facility] Comment on above: Performed By: #### B MP #### [facility] [address] [address] [address] Silver aHrrison IG # 0.08 10e3/ul Critically high 0.00-0.03 [facility] Comment on above: Performed By: #### B MP #### [facility] [address] [address] [address] Silver Harrison IG % 0.9 % Critically high 0.0-0.[address] [facility] Comment on above: Performed By: #### B MP #### [facility] [address] [place] [address] Dr. Silver Harrison LYMPH # 1.6 103/ul Normal 1.2-3.8 [facility] Comment on above: Performed By: #### B MP #### [facility] [address] [place] [address] Dr. Silver Harrison Lymphocytes/100 WBC (Bld) 19.4 % Critically low 20.5-60.[address] [facility] Comment on above: Performed By: #### B MP #### [facility] [address] [place] [address] Dr. Silver Harrison MANUAL DIFF REQ NO Normal [facility] Comment on above: Performed By: #### B MP #### [facility] [address] [place] [address] Dr. Silver Harrison MCH (RBC) [Entitic mass] 30.0 pg Normal 26.7-34.0 [facility] Comment on above: Performed By: #### B MP #### [facility] [address] [place] [address] Dr. Silver Harrison MCHC (RBC) [Mass/Vol] 31.2 g/dL Normal 29.9-35.2 [facility] Comment on above: Performed By: #### B MP #### [facility] [address] [place] [address] Dr. Silver Harrison MCV (RBC) [Entitic vol] 96.3 fL Normal 81.0-99.0 [facility] Comment on above: Performed By: #### B MP #### [facility] [address] [place] [address] Dr. Silver Harrison MONO # 0.6 103/ul Normal 0.3-0.8 [facility] Comment on above: Performed By: #### B MP #### [facility] [address] [place] [address] Dr. Silver Harrison Monocytes/100 WBC (Bld) 6.6 % Normal 1.7-12.0 [facility] Comment on above: Performed By: #### B MP #### [facility] [address] [place] [address] Dr. Silver Harrison NEUT # 5.9 103/ul Normal 1.4-6.5 [facility] Comment on above: Performed By: #### B MP #### [facility] [address] [place] [address] Dr. Silver Harrison Neutrophils/100 WBC (Bld) 69.8 % Normal 43.0-75.0 [facility] Comment on above: Performed By: #### B MP #### [facility] [address] [place] [address] Dr. Silver Harrison Platelet mean volume (Bld) [Entitic vol] 10.0 fL Normal 9.5-13.5 [facility] Comment on above: Performed By: #### B MP #### [facility] [address] [place] [address] Dr. Silver Harrison PLT 180 103/ul Normal 150-450 [facility] Comment on above: Performed By: #### B MP #### [facility] [address] [place] [address] Dr. Silver Harrison RBC 2.70 106/ul Critically low 4.20-5.40 [facility] Comment on above: Performed By: #### B MP #### [facility] [address] [place] [address] Dr. Silver Harrison WBC 8.4 103/ul Normal 4.0-11.[address] [facility] Comment on above: Performed By: #### B MP #### [facility] [address] [place] [address] Dr. Silver Harrison FERRITINon 06-24-2022 Ferritin [Mass/Vol] 535.0 ng/mL Critically high 8.0-252.[address] [facility] Comment on above: Performed By: #### F ETIBC, FERR, VITAD #### [facility] [address] [place] [address] Dr. Silver Harrison IRON AND TIBCon 06-24-2022 % SATURATION 16.9 % Normal [facility] Comment on above: Performed By: #### F ETIBC, FERR, VITAD #### [facility] [address] [place] [address] Dr. Silver Harrison Iron [Mass/Vol] 31.0 ug/dL Critically low 50.0-170.[address] [facility] Comment on above: Performed By: #### F ETIBC, FERR, VITAD #### [facility] [address] [place] [address] Dr. Silver Harrison TIBC DIRECT 183.0 ug/dL Critically low 250.0-450. [address] [facility] Comment on above: Performed By: #### F ETIBC, FERR, VITAD #### [facility] [address] [place] [address] Dr. Silver Harrison MAGNESIUMon 06-24-2022 Magnesium [Mass/Vol] 2.3 mg/dL Normal 1.8-2.[address] [facility] Comment on above: Performed By: #### U SUNITA, MG, RENAL #### [facility] [address] [place] [address] Dr. Silver Harrison RENAL FUNCTION PANELon 06-24 Albumin [Mass/Vol] 2.5 g/dL Critically low 3.4-5.0 Th e [facility] Comment on above: Performed By: #### U SUNITA, MG, RENAL #### [facility] [address] [place] [address] Dr. Silver Harrison Calcium [Mass/Vol] 8.4 mg/dL Critically low 8.5-10.1 [facility] Comment on above: Performed By: #### U SUNITA, MG, RENAL #### [facility] [address] [place] [address] Dr. Silver Harrison Chloride [Moles/Vol] 107 mmol/L Normal 98-[address] [facility] Comment on above: Performed By: #### U SUNITA, MG, RENAL #### [facility] [address] [place] [address] Dr. Silver Harrison CO2 [Moles/Vol] 24.2 mmol/L Normal 21.0-32.[address] [facility] Comment on above: Performed By: #### U SUNITA, MG, RENAL #### [facility] [address] [place] [address] Dr. Silver Harrison Creatinine [Mass/Vol] 4.38 mg/dL Critically high 0.55-1.[address] [facility] Comment on above: Performed By: #### U SUNITA, MG, RENAL #### [facility] [address] [place] [address] Dr. Silver Harrison EGFR-AF SRI LANKAN 12 mL/min/1.73m2 Critically low >=[address] [facility] Comment on above: Performed By: #### U SUNITA, MG, RENAL #### [facility] [address] [place] [address] Dr. Silver Harrison EGFR-NON AF SRI LANKAN 10 mL/min/1.73m2 Critically low >=[address] [facility] Comment on above: Performed By: #### U SUNITA, MG, RENAL #### [facility] [address] [place] [address] Dr. Silver Harrison Glucose [Mass/Vol] 55 mg/dL Critically low 74-106 [facility] Comment on above: Performed By: #### U SUNITA, MG, RENAL #### [facility] [address] [place] [address] Dr. Silver Harrison Phosphate [Mass/Vol] 6.0 mg/dL Critically high 2.6-4.[address] [facility] Comment on above: Performed By: #### U SUNITA, MG, RENAL #### [facility] [address] [place] [address] Dr. Silver Harrison Potassium [Moles/Vol] 4.3 mmol/L Normal 3.5-5.1 [facility] Comment on above: Performed By: #### U SUNITA, MG, RENAL #### [facility] [address] [place] [address] Dr. Silver Harrison Sodium [Moles/Vol] 142 mmol/L Normal 136-145 [facility] Comment on above: Performed By: #### U SUNITA, MG, RENAL #### [facility] [address] [place] [address] Dr. Silver Harrison Urea nitrogen [Mass/Vol] 55.0 mg/dL Critically high 7.0-18.[address] [facility] Comment on above: Performed By: #### U SUNITA, MG, RENAL #### [facility] [address] [place] [address] Dr. Silver Harrison URIC ACID SERUMon 06-24-2022 Urate [Mass/Vol] 7.7 mg/dL Critically high 2.6-6.[address] [facility] Comment on above: Performed By: #### U SUNITA, MG, RENAL #### [facility] [address] [place] [address] Dr. Silver Harrison VITAMIN D 25 OHon 06-24-2022 VIT D 25-OH 29.0 ng/mL Normal [facility] Comment on above: Performed By: #### F ETIBC FERR, VITAD #### [facility] [address] [place] [address] Dr. Silver Harrison VIT D RANGES SEE BELOW Normal [facility] Comment on above: Result Comment: <20 ng/mL Vit D deficient 20 - <30 ng/mL Vit D insufficient 30 - 100 ng/mL Vit D sufficient >100 ng/mL Potential Toxicity Performed By: #### F ETIBC, FERR, VITAD #### [facility] [address] [place] [address] Dr. Silver Harrison BASIC MET PANEL W/GFRon 05-28 Calcium [Mass/Vol] 8.0 mg/dL Low (8.6 - 10.6) [facility] Comment on above: Order Comment: STAT FACILITY: [facility] [facility] [id number] Performed By: #### C HEM-B, T20 #### [place] [facility] [address] [place], [address] Chloride [Moles/Vol] 112 mmol/L High (98 - 107) [facility] Comment on above: Order Comment: STAT FACILITY: [facility] [id number] Performed By: #### C HEM-B, T20 #### [place] [facility] [address] [place], [address] CO2 [Moles/Vol] 19 mmol/L Low (22 - 30) [facility] Comment on above: Order Comment: STAT FACILITY: [facility] [id number] Performed By: #### C HEM-B, T20 #### [place] [facility] [address] [place], [address] Creatinine [Mass/Vol] 4.98 mg/dL High (0.52 - 1.04) [facility] Comment on above: Order Comment: STAT FACILITY: [facility] [facility] [id number] Performed By: #### C HEM-B, T20 #### [place] [facility] [address] [place], [address] GFR- AMER 10.3 ML/M1.7 Low (60.0 - 140.1) [facility] Comment on above: Order Comment: STAT FACILITY: [facility] [facility] [id number] Performed By: #### C HEM-B, T20 #### [place] [facility] [address] [place], [address] GFR-NON AFRIC-AMER 8.5 ML/M1.7 Low (60.0 - 115.8) [facility] Comment on above: Order Comment: STAT FACILITY: [facility] [facility] [id number] Performed By: #### C HEM-B, T20 #### [place] [facility] [address] [place], [address] Glucose [Mass/Vol] 104 mg/dL Normal (74 - 106) [facility] Comment on above: Order Comment: STAT FACILITY: [facility] [id number] Performed By: #### C HEM-B, T20 #### [place] [facility] [address] [place], [address] Potassium [Moles/Vol] 6.1 mmol/L Critically high (3. 5 - 5.1) [facility] Comment on above: Order Comment: STAT FACILITY: [facility] [id number] Result Comment: CRIT ICAL RESULT REPEATED AND REPORTED TO: LISA APONTEIER @ 11:50 AM 06/15/2022 RP Performed By: #### C HEM-B, T20 #### [place] [facility] [address] [place], [address] Sodium [Moles/Vol] 142 mmol/L Normal (137 - 145) [facility] Comment on above: Order Comment: STAT FACILITY: [facility] [id number] Performed By: #### C HEM-B, T20 #### [place] [facility] [address] [place], [address] Urea nitrogen [Mass/Vol] 59 mg/dL High (7 - 17) [facility] Comment on above: Order Comment: STAT FACILITY: [facility] [id number] Performed By: #### C HEM-B, T20 #### [place] [facility] [address] [place], [address] CBC NO DIFFon 06-15-2022 Hematocrit (Bld) [Volume fraction] 28.5 % Low (37.0 - 47.0) [facility] Comment on above: Performed By: #### C HEM-B, T20 #### [place] [facility] [address] [place], [address] Hemoglobin (Bld) [Mass/Vol] 8.8 g/dL Low (12.0 - 16.0) [facility] Comment on above: Performed By: #### C HEM-B, T20 #### [place] [facility] [address] [place], [address] MCH (RBC) [Entitic mass] 30.0 pg Normal (27.0 - 33.0) [facility] Comment on above: Performed By: #### C HEM-B, T20 #### [place] [facility] [address] [place], [address] MCHC (RBC) [Mass/Vol] 30.9 g/dL Normal (30.0 - 37.0) [facility] Comment on above: Performed By: #### C HEM-B, T20 #### [place] [facility] [address] [place], [address] MCV (RBC) [Entitic vol] 97.3 fL Normal (81.0 - 99.0) [facility] Comment on above: Performed By: #### C HEM-B, T20 #### [place] [facility] [address] [place], [address] PLT 151 x10^3ul Normal (130 - 400) [facility] Comment on above: Performed By: #### C HEM-B, T20 #### [place] [facility] [address] [place], [address] RBC 2.93 x10^6ul Low (4.20 - 5.40) [facility] Comment on above: Performed By: #### C HEM-B, T20 #### [place] [facility] [address] [place], [address] RDW-SD 44.6 fl Normal (37.0 - 49.0) [facility] Comment on above: Performed By: #### C HEM-B, T20 #### [place] [facility] [address] [place], [address] WBC 11.09 x10^3ul High (3.80 - 10.60) [facility] Comment on above: Performed By: #### C HEM-B, T20 #### [facility] [address] [place], [address] MG MAMM SCREEN MOIRA W CADon 0 01-19-2022 MG MAMM SCREEN MOIRA W CAD Patient: ESSENCE CASTORENA Exam Date: 01/19/2022 : 1950 Gender:F Ordering : DR CHRISTOPHER MANN M.D. Admission #: [id number] Family : Order #: [id number] CLICK HERE TO VIEW EXAM RADIOLOGY REPORT [...] pancreatic cancer at age 67. LOCATION: [facility] BREAST COMPOSITION: Extremely dense, which [...] Leon MD on 01/19/2022 at 12:[address] [facility] Coding Summary.on 01-06-2019 Coding Summary. 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 Name: ESSENCE CASTORENA Aleta Schmidt./Sex: 1950 Female Med Rec #: [id number] Physician: Emanuel Hartley DO Financial #: [id number] Pt. Type: A Room/Bed: [place] [address] Admit/Disch: 01/04/19 13:05:00 - 01/04/19 14:15:00 Institution: [...] Carleen Gill Role Performed Surgeon - Primary Smoke Jumper - Primary Scrub - Primary Time In [...] taken back to asu for discharge. suzy carpentervarnish melter Administration FT Pre-Care Text: Verifies allergies, administers [...] safely administered during the perioperative period For [facility] please see scanned medication reconcilliation form for medications used at the field during the procedure. Normal [facility] Inpatient Patient Summaryon 01-04-2019 Inpatient Patient Summary [facility] Clinical Discharge Instructions PERSON INFORMATION Name: ESSENCE CASTORENA PHYSICIANS Admitting Physician: Emanuel Hartley DO Attending Physician: Emanuel Hartley DO PCP: ALDA MITCHELL DO Discharge Diagnosis: Cerumen debris on tympanic membrane; Conductive hearing loss of both ears Comment: PATIENT EDUCATION INFORMATION Instructions: Medication Leaflets: Follow up: With: Address: When: Emanuel Hartley [address] [place], [place] [phone] Business (1) MEDICATION LIST Comment: Normal [facility] Operative Reporton 9 Operative Report Date [...] brought to the Operating Room Suite at [facility], at which time she was placed in [...] Surgical Department in stable and satisfactory condition. Emaneul Hartley D.O. aek Dictated: 01/04/2019 #[id number] Typed: 01/04/2019 #[id number] cc: Emanuel Hartley D.O. [facility] Comment on above: Result Comment: Elec tronically [...] of cerumen impaction Anesthesia type: local. Normal [facility] Comment on above: Result Comment: Elec tronically Signed By: Emanuel Hartley DO\.br\Date and Time Signed: 01/04/19 14:09 EDT Patient Education - Texton 0 01-04-2019 Patient Education - Text [facility] Vital Signs Date Time Vital Sign Value Performing Clinician Facility 03-23-2023 14:06-0500 Diastolic blood pressure 80 mm[Hg] Danii Rodriguez MD Work Phone: [facility] 03-23-2023 14:06-0500 Heart rate 76 /min Danii Rodriguez MD Work Phone: [facility] 03-23-2023 14:06-0500 Systolic blood pressure 132 mm[Hg] Danii Rodriguez MD Work Phone: [facility] 02-05-2023 09:31-0400 Body temperature 98.2 [degF] MD Christopher Mann Work Phone: [facility] 02-05-2023 09:31-0400 Diastolic blood pressure 70 mm[Hg] MD Christopher Mann Work Phone: [facility] 02-05-2023 09:31-0400 Heart rate 72 /min MD Christopher Mann Work Phone: [facility] 02-05-2023 09:31-0400 Respiratory rate 18 /min MD Christopher Mann Work Phone: [facility] 02-05-2023 09:31-0400 SaO2% (BldA) [Mass fraction] 97 % MD Christopher Mann Work Phone: [facility] 02-05-2023 09:31-0400 Systolic blood pressure 130 mm[Hg] MD Christopher Mann Work Phone: [facility] 11-11-2022 16:12-0400 Diastolic blood pressure 68 mm[Hg] Tseringarlet Sandhu [place] Work Phone: [facility] 250 DO Work Phone: 11-11-2022 16:12-0400 Heart rate 84 /min Christopher Sandhu Johnathan Work Phone: [facility] 250 DO Work Phone: 11-11-2022 16:12-0400 Systolic blood pressure 122 mm[Hg] Tseringarlet Mendiolaa Work Phone: [facility] 250 DO Work Phone: 07-31-2022 19:37-0400 Diastolic blood pressure 65 mm[Hg] MD Christopher Mann Work Phone: [facility] 07-31-2022 19:37-0400 Heart rate 78 /min MD Christopher Mann Work Phone: [facility] 07-31-2022 19:37-0400 Respiratory rate 20 /min MD Christopher Mann Work Phone: [facility] 07-31-2022 19:37-0400 SaO2% (BldA) [Mass fraction] 98 % MD Christopher Mann Work Phone: [facility] 07-31-2022 19:37-0400 Systolic blood pressure 142 mm[Hg] MD Christopher Mann Work Phone: [facility] 07-31-2022 15:05-0400 Body height 162.56 cm MD Christopher Mann Work Phone: [facility] 07-31-2022 15:05-0400 Body temperature 97.6 [degF] MD Christopher Mann Work Phone: [facility] 07-31-2022 15:05-0400 Body weight 106.14 kg MD Christopher Mann Work Phone: [facility] 07-31-2022 10:41-0400 Body temperature 98.4 [degF] MD Christopher Mann Work Phone: [facility] 07-31-2022 10:41-0400 Body weight 109 kg MD Christopher Mann Work Phone: [facility] 07-31-2022 10:41-0400 Diastolic blood pressure 68 mm[Hg] MD Christopher Mann Work Phone: [facility] 07-31-2022 10:41-0400 Heart rate 74 /min MD Christopher Mann Work Phone: [facility] 07-31-2022 10:41-0400 Respiratory rate 20 /min MD Christopher Mann Work Phone: [facility] 07-31-2022 10:41-0400 SaO2% (BldA) [Mass fraction] 97 % MD Christopher Mann Work Phone: [facility] 07-31-2022 10:41-0400 Systolic blood pressure 136 mm[Hg] MD Christopher Mann Work Phone: [facility] 07-14-2022 17:20-0400 Body height 160.02 cm Essie Merlyn Other [facility] [employer] Other 07-14-2022 17:20-0400 Diastolic blood pressure 70 mm[Hg] Essie Merlyn Other [facility] [employer] Other 07-14-2022 17:20-0400 Respiratory rate 20 /min Essie Merlyn Other [facility] Other 07-14-2022 17:20-0400 SaO2% (BldA) [Mass fraction] 96 % Essie Merlyn Other [facility] Other 07-14-2022 17:20-0400 Systolic blood pressure 153 mm[Hg] Essie Merlyn Other [facility] Other 07-01-2022 09:42-0500 Body temperature 98.1 [degF] MD Christopher Mann Work Phone: [facility] 07-01-2022 09:42-0500 Diastolic blood pressure 71 mm[Hg] MD Christopher Mann Work Phone: [facility] 07-01-2022 09:42-0500 Heart rate 68 /min MD Christopher Mann Work Phone: [facility] 07-01-2022 09:42-0500 Respiratory rate 18 /min MD Christopher Mann Work Phone: [facility] 07-01-2022 09:42-0500 SaO2% (BldA) [Mass fraction] 96 % MD Christopher Mann Work Phone: [facility] 07-01-2022 09:42-0500 Systolic blood pressure 134 mm[Hg] MD Christopher Mann Work Phone: [facility] 07-01-2022 09:27-0500 Body height 162.56 cm MD Christopher Mann Work Phone: [facility] Encounters Encounter Date Encounter Type Care Provider Facility Start: 03-23-2023 End: 03-23-2023 ambulatory [facility] Ambulatory Start: 03-23-2023 End: 03-23-2023 Office outpatient visit 15 minutes Danii Rodriguez MD Work Phone: [facility] Comment on above: Atherosclerosis of n ative coronary artery of citizen [place] heart without angina pectoris (Primary Dx); Chest discomfort; Essential hypertension, benign; Mixed hyperlipidemia; Dialysis patient (CMS/HCC); Cerebrovascular accident (CVA), unspecified mechanism (CMS/HCC) Start: 02-05-2023 ambulatory Essence Alicea Facility:[facility] Start: 02-05-2023 End: 02-05-2023 ambulatory MD Christopher Mann Work Phone: [facility] Work Phone: Start: 02-05-2023 End: 02-05-2023 Registered Recurring MD Christopher Mann Work Phone: [facility] Work Phone: Start: 11-11-2022 Office outpatient vi sit 25 minutes Christopher Mann Work Phone: [facility] 250 DO Work Phone: Start: 11-11-[address] Danii Rodriguez Facility: Start: 09-07-2022 End: 09-07-[address] CHRISTOPHER MANN Facility:H1 Start: 08-04-2022 ambulatory Danii Rodriguez Faci lity:[id number] Start: 08-03-2022 ambulatory Danii Wilson lity:[id number] Start: 08-02-2022 End: 08-05-2022 Evaluation and management of inpatient Christopher Mann Facility:[facility] Start: 08-02-2022 ambulatory Danii Rodriguez Faci lity:[id number] Start: 08-01-[address] Danii Rodriguez Facility:[id number] Start: 08-01-2022 ambulatory Danii Rodriguez Faci lity:[id number] Start: 07-31-2022 Evaluation and manag ement of inpatient MD Christopher Mann Work Phone: [facility] Work Phone: Start: 07-31-2022 Registered Recurring MD Christopher Mann Work Phone: [facility] Work Phone: Start: 07-31-2022 End: 07-31-[address] CHRISTOPHER MANN Facility:H1 Start: 07-29-2022 End: 07-29-[address] CHRISTOPHER MANN Facility:[facility]1 Start: 07-24-2022 End: 07-24-[address] CHRISTOPHER MANN Facility:[facility]1 Start: 07-21-2022 End: 07-21-2022 ambulatory Essie Merlyn Other [facility] Other Start: 07-21-2022 Telephone encounter Essie Merlyn [facility] Start: 07-20-2022 Telephone encounter Essie Merlyn [facility] Start: 07-20-2022 End: 07-20-2022 ambulatory ESSIE MERLYN [facility] Other Start: 07-17-2022 End: 07-17-[address] CHRISTOPHER MANN Facility:H1 Start: 07-14-2022 End: 07-14-2022 ambulatory Essie Merlyn Other [facility] Other Start: 07-14-2022 Office outpatient ne w 45 minutes Essie Merlyn [facility] Start: 07-03-2022 End: 07-03-[address] ARTURO GUO . Facility:H1 Start: 07-01-2022 End: 07-01-2022 ambulatory MD Christopher Mann Work Phone: [facility] Work Phone: Start: 07-01-2022 End: 07-01-2022 Registered Recurring MD [facility] Work Phone: Start: 06-24-2022 End: 06-24-[address] CHRISTOPHER MANN Facility:H1 Start: 01-19-2022 End: 01-20-[address] CHRISTOPHER MANN Facility:H1 Procedures Date Procedure Procedure Detail Performing Clinician Start: 01-29-2023 Mammography Danii phillips MD Work Phone: Start: 07-31-2022 Plain chest X-ray MD James Mann Work Phone: Appendectomy Christopher Edson [place] Work Phone: Hysterectomy Christopher Edson Johnathan Work Phone: Operative procedure on knee Tseringarlet Edson Johnathan Work Phone: Total colonoscopy Christopher Sandhu [place] Work Phone: Plan of Treatment Date Care Activity Detail Author Start: 03-28-2024 End: 03-28-2024 Patient encounter procedure 03/28/2024 2:00 PM EST Office Visit [facility] [address] [facility] [address] [place] [address] Danii Rodriguez MD [address] [facility] [address] [place] [address] [place] [address] [facility] Start: 01-30-2024 Screening for malignant neoplasm of breast Mammogram [facility] Start: 03-23-2023 FUV, Provider: Danii Rodriguez, Status: Pen, Time: 2:20 PM FUV, Provider: Danii Rodriguez, Status: Pen, Time: 2:20 PM [facility] 250 DO Work Phone: Start: 12-25-2022 Influenza vaccination Influenza Vaccine (#1) [facility] Start: 07-31-2022 Bacteria identified in Urine by Culture [facility] Start: 11-19-1999 Zoster Vaccines (1 of 2) Zoster Vaccines (1 of 2) [facility] Start: 11-19-1971 DTaP/Tdap/Td Vaccines (1 - Tdap) DTaP/Tdap/Td Vaccines (1 - Tdap) [facility] Start: 11-19-1967 Diabetes mellitus screening Diabetes Screening [facility] Start: 11-19-1967 Hepatitis C screening Hepatitis C Screening [facility] Start: 11-19-1955 Pneumococcal Vaccine: 65+ Years (1 - PCV) Pneumococcal Vaccine: 65+ Years (1 - PCV) [facility] Start: 05-21-1950 COVID-19 Vaccine (#1) COVID-19 Vaccine (#1) [facility] Start: 1950 Lipid panel Lipid Panel [facility] Start: 1950 Screening for malignant neoplasm of colon [facility] Start: 1950 Yearly Adult Physical Yearly Adult Physical [facility] Immunizations Immunization Date Immunization Notes Care Provider Fa cility 05-03-2020 COVID-19 Manjinder Gonzalez (Pfizer) MD Christopher Mann Work Phone: [facility] 04-15-2020 COVID-19 Manjinder Gonzalez (Pfizer) MD Christopher Mann Work Phone: [facility] Payers Date Payer Category Payer Private Health Insurance [id number] 2022 Self-pay [id number] 2017 Medicaid MEDICAID MEDICAI D [id number] 2017-Present [address] [place] [address] [id number] 1959 Medicaid [id number] 1959 Medicare [id number] 1950 Unknown [id number] 2.16.840.1.532772.3.579.2.3 56 1950 Unknown [id number] 2.16.840.1.593071.3.579.2.3 56 1950 Unknown [id number] 2.16.840.1.429520.3.579.2.3 56 1949 Unknown [id number] 2.16.840.1.111404.3.579.2.3 56 1949 Unknown [id number] 2.16.840.1.244870.3.579.2.3 56 1949 Unknown [id number] 2.16.840.1.506913.3.579.2.5 93 1949 Unknown [id number] 2.16.840.1.097775.3.579.2.5 93 1949 Unknown [id number] 2.16.840.1.896969.3.579.2.5 93 1949 Unknown [id number] 2.16.840.1.719689.3.579.2.5 93 1949 Unknown [id number] 2.16.840.1.746743.3.579.2.5 93 1949 Unknown [id number] 2.16.840.1.133134.3.579.2.5 93 1949 Unknown [id number] 2.16.840.1.285905.3.579.2.5 93 1949 Unknown [id number] 2.16.840.1.035064.3.579.2.5 93 1949 Unknown [id number] 2.16.840.1.589999.3.579.2.5 93 1949 Unknown [id number] 2.16.840.1.223492.3.579.2.5 93 1949 Unknown [id number] 2.16.840.1.001611.3.579.2.3 56 1949 Unknown [id number] 2.16.840.1.202493.3.579.2.3 56 1950 Unknown [id number] 2.16.840.1.398961.3.579.2.1 244 Unknown [facility] [id number] Unknown Unknown [id number] 2.16.840.1.015661.3.579.2.5 31 Unknown [id number] 2.16.840.1.035643.3.579.2.5 31 Social History Date Type Detail Facility Start: 07-01-2022 End: 03-23-2023 Tobacco smoking status NHIS Ex-smoker (finding) [facility] Start: 1950 Sex Assigned At Female [facility] Start: 03-23-2023 Sex Assigned At [facility] [employer] Other Start: 03-23-2023 Consumes alcohol occasionally Consumes alcohol occasionally [facility] 250 DO Work Phone: History of tobacco use Current smoker [facility] Work Phone: History of tobacco use [facility] Work [facility]: Start: 03-23-2023 Tobacco use and exposure Smokeless tobacco non-user [facility] Work Phone: Start: 03-23-2023 Alcohol intake Ex-drinker (finding) [facility] Work Phone: Start: 03-19-2023 Alcohol Comment occasional [facility] Work Phone: Start: 1950 Sex Assigned At Not on file [facility] Work Phone: Start: 03-13-2023 End: 03-23-2023 Exposure to SARS-CoV-2 (event) Not sure [facility] Medical Equipment Procedure Code Equipment Code Equipment Origin al Text Equipment Identifier Dates Phacoemulsification of cataract with intraocular lens implantation Posterior-chamber intraocular lens, pseudophakic ([id number] FDA Start: 04-10-2021 Phacoemulsification of cataract with intraocular lens implantation Posterior-chamber intraocular lens, pseudophakic ()[id number] FDA Start: 05-22-2021 Clinical Notes 07-01-2022 to 03-23-2023 Danii Rodriguez MD - 03/23/2023 2:20 PM ESTPatient Instructions Note Date & Type Note Facility 03-23-2023 History of Present illness Narrative Subjective Essence Castorena is a 72 y.o. female Chief Complaint Follow-up HPI Patient is here for follow-up continue management for history of coronary artery disease with remote PCI in [place], hypertension, hyperlipidemia. Patient is a resident of a local longterm. She had dense left-sided hemiplegia. She denies any chest pain but reports some mild shortness of breath since the last time I saw her. She has limited exercise tolerance. She has been stable cardiac cifuentes. Assessment 1. Coronary artery disease prior intervention in [place] detail is lacking. Recent evaluation of atypical chest pain. Stress test and echocardiogram appears to be reassuring 2. Chronic kidney disease on hemodialysis 3. Hypertension controlled 4. Hyperlipidemia on treatment 5. Diabetes mellitus 6. History of stroke with left-sided hemiplegia almost wheelchair-bound 7. [facility] resident 8. Intermittent episode of hemodialysis associated [...] times a day., Disp: , Rfl: HYDROcodone-acetaminophen ([place]) 5-325 mg tablet, Take 1 tablet by [...] Disp: , Rfl: Assessment/Plan 1. Atherosclerosis of citizen [place] coronary artery of citizen [place] heart without angina pectoris Follow Up In Cardiology 2. Chest discomfort Follow Up In Cardiology 3. Essential hypertension, benign 4. Mixed hyperlipidemia 5. Dialysis patient (CMS/HCC) 6. Cerebrovascular accident (CVA), unspecified mechanism (CMS/HCC) documented in this encounter [facility] Work Phone: 03-23-2023 Instructions Shannan York CMA [...] of your visit. documented in this encounter [facility] Work Phone: 07-31-2022 Progress note Note Date/Time July 31, 2022 11:02[facility] at [address] [address] Hem/Onc Follow Up Note - OP Signed Patient: Amparo Castorena MR#: [id number] : 1950 Acct:[id number] Age/Sex: 71 / F Type: REG RCR Copies to: MD Christopher Palafox MD~ Date of Service: 07/31/2022 Time of Service: 11:00 - Assessment & Plan (1) Anemia in chronic kidney disease (CKD) Plan: Anemia of chronic kidney disease CKD-IV on dialysis. Previously seen at [facility] and transferred care to [facility] as of 07/01/22 now on dialysis, gets epo agents through dialysis. Is awaiting fistula for dialysis, this will be done in [place] Previous anemia work-up completed prior to transfer [...] with a history of CVA, diabetes, PVD, VT x 2, cataracts, hyperlipidemia, HTN, GERD, and anemia of CKD. Surgical history includes hysterectomy, carpal tunnel surgery and bilateral arthroscopic knee surgery. She denies any personal or family history of cancer. She is referred by Dr. Sanchez Jean at [facility] to establish care for her anemia from CKD. She recently started Aranesp weekly and is in the process of getting dialysis fistula placed to start dialysis. Most recent labs reveal hgb 8.1, wbc 13.9, platelets 135,000, anc 10.8. Creatinine 4.9 with GFR 9, calcium 8.0. She is transferring care as she resides at [facility] in [place] and this is muchcloser for her and [...] for coordination of care (as documented) and [id number] counseling of patient and/or family. [facility] - Medical History Medical History: Medical [...] calcium 500 mg-D3 400 unit-K 15 mcg-folic [id number] tablet 1 tab PO DAILY 03/28/21 [History [...] bisacodyl 10 mg rectal suppository 10 mg AK DAILY PRN Constipation 07/01/22 [History Confirmed 07/31/22] [...] by Tex Kim II, DO> 07/31/22 [address] [facility] Work Phone: 1(894) 493-873203-21-2023 Evaluation note* Encounter Date Diagnosis Assessment Notes [...] the acarbose due to the advanced CKD. [employer] Other 03-08-2023 Consult note Author Essence Alicea [facility] July 01, 2022 1:16pm Note Date/Time July 01, 2022 9:47 am [facility] at [address] [address] Hem/Onc Consult Note - OP Signed Patient: Amparo Castorena MR#: [id number] : 1950 Acct:[id number] Age/Sex: 71 / F Type: REG RCR Copies to: MD Christopher Palafox MD~ HPI Date/Time of Service: Date of Service: 07/01/2022 Time of Service: 09:46 Referring Provider/PCP: Referring Provider: Sanchez Jean MD PCP: Christopher Mann MD - History of Present Illness Chief Complaint: Patient is transferring care from [facility] for anemia. Resides at [facility]. Outside labs. HPI: Amparo is a 71-year-old female with a history of CVA, diabetes, PVD, VT x 2, cataracts, hyperlipidemia, HTN, GERD, and anemia of CKD. Surgical history includes hysterectomy, carpal tunnel surgery and bilateral arthroscopic knee surgery. She denies any personal or family history of cancer. She is referred by Dr. Sanchez Jean at [facility] to establish care for her anemia from CKD. She recently started Aranesp weekly and is in the process of getting dialysis fistula placed to start dialysis. Most recent labs reveal hgb 8.1, wbc 13.9, platelets 135,000, anc 10.8. Creatinine 4.9 with GFR 9, calcium 8.0. She is transferring care as she resides at [facility] in [place] and this is muchcloser for her and [...] fevers, chills, sweats, pain or other complaints. [facility] - Medical History Medical History: Medical [...] calcium 500 mg-D3 400 unit-K 15 mcg-folic [id number] tablet 1 tab PO DAILY 03/28/21 [History [...] bisacodyl 10 mg rectal suppository 10 mg AK DAILY PRN Constipation 07/01/22 [History Confirmed 07/01/22] [...] will start dialysis soon. Previously seen at [facility] and transferred care to [facility] as of 07/01/22 She is currently on Aranesp weekly, will clarify dose. She gets this at the longterm. Is awaiting fistula for dialysis, this will be done in [place] Previous anemia work-up completed prior to transfer [...] for coordination of care (as documented) and [id number]-rg-[id number] counseling of patient and/or family. Dictated By: Essence Alicea APRN DD/ [id number] Signed By: <Electronically signed by ELLA Alicea> 07/01/22 [address] [facility] Work Phone: Evaluation noteNo assessment information available [facility] Work Phone: Evaluation [facility]No [facility] [employer] Other Evaluation note* Diagnosis Onset Date Resolution Status Anemia in chronic kidney disease (CKD) acute Anemia in chronic kidney disease (CKD) acute Atypical chest pain acute UTI (urinary tract infection) acute [facility] Work Phone: Evaluation note* Diagnosis Onset Date Resolution Status Anemia in chronic kidney disease (CKD) acute [facility] Work Phone: Evaluation note* Diagnosis Atherosclerosis of citizen [place] coronary artery of citizen [place] heart without angina pectoris- Primary Chest discomfort Other chest pain Essential hypertension, benign Mixed hyperlipidemia Dialysis patient (CMS/HCC) Renal dialysis status Cerebrovascular accident (CVA), unspecified mechanism ([facility]) documented in this encounter [facility] Work Phone: History general Narrative - Reported* [...] PVD (PERIPHERAL VASCULAR DISEASE ) Medical History VT X2 Medical History CVA (CEREBRAL VASCULAR ACCIDENT) Surgical History Rt Knee Scope Surgical History Lt Knee Scope 1999 Surgical History Carpal Tunnel Surgical History Rt Hand - Tumor - benign Surgical History Tubal 1985 Surgical History Hyster 2004 Surgical History Heart Cath with Stents 09/2007 Surgical History FISTULA PLACEMENT IN RIGHT ARM 07/13/22 Hospitalization History see Surgery list [facility] [employer] Other History of Present illness Narrative* Patient is here for follow-up from recent hospitalization. She is accompanied by her daughter. Patient appears to be poor historian. Most of the information gathered from the daughter. I saw her during recent hospitalization for evaluation of atypical chest pain. Patient reported history of coronary artery disease prior intervention in [place]. Detail is lacking. She does have history [...] 1. Coronary artery disease prior intervention in [place] detail is lacking. Recent evaluation of atypical chest pain. Stress test and echocardiogram appears to be reassuring * 2. Chronic kidney disease on hemodialysis * 3. Hypertension controlled * 4. Hyperlipidemia on treatment * 5. Diabetes mellitus * 6. History of stroke with left-sided weakness and * 7. [facility] resident * 8. Intermittent episode of hemodialysis [...] conservative management and the patient is DNR -[facility] 250 DO Work Phone: Progress note Author Tex Kim [facility] July 31, 2022 11:05am Note Date/Time July 31, 2022 11:0 2am [facility] [place] [address] Hem/Onc Follow Up Note - OP Signed Patient: Amparo Castorena MR#: [id number] : 1950 Acct:[id number] Age/Sex: 71 / F Type: REG RCR Copies to: MD Christopher Palafox MD~ Date of Service: 07/31/2022 Time of Service: 11:00 - Assessment & Plan (1) Anemia in chronic kidney disease (CKD) Plan: Anemia of chronic kidney disease CKD-IV on dialysis. Previously seen at [facility] and transferred care to [facility] as of 07/01/22 now on dialysis, gets epo agents through dialysis. Is awaiting fistula for dialysis, this will be done in [place] Previous anemia work-up completed prior to transfer [...] with a history of CVA, diabetes, PVD, VT x 2, cataracts, hyperlipidemia, HTN, GERD, and anemia of CKD. Surgical history includes hysterectomy, carpal tunnel surgery and bilateral arthroscopic knee surgery. She denies any personal or family history of cancer. She is referred by Dr. Sanchez Jean at [facility] to establish care for her anemia from CKD. She recently started Aranesp weekly and is in the process of getting dialysis fistula placed to start dialysis. Most recent labs reveal hgb 8.1, wbc 13.9, platelets 135,000, anc 10.8. Creatinine 4.9 with GFR 9, calcium 8.0. She is transferring care as she resides at [facility] in [place] and this is muchcloser for her and [...] for coordination of care (as documented) and [id number] counseling of patient and/or family. [facility] - Medical History Medical History: Medical [...] calcium 500 mg-D3 400 unit-K 15 mcg-folic [id number] tablet 1 tab PO DAILY 03/28/21 [History [...] bisacodyl 10 mg rectal suppository 10 mg AK DAILY PRN Constipation 07/01/22 [History Confirmed 07/31/22] [...] by Tex Kim II, DO> 07/31/22 1105 [facility] Work Phone: Progress note Author Essence Alicea [facility] February 05, 2023 9:59am Note Date/Time February 05, 2023 9 :50am [facility] [place] [place] [address] Hem/Onc Follow Up Note - OP Signed Patient: Amparo Castorena MR#: [id number] : 1950 Acct:[id number] Age/Sex: 72 / F Type: REG RCR Copies to: MD Christopher Palafox MD~ Date of Service: 02/05/2023 Time of Service: 09:49 - Assessment & Plan (1) Anemia in chronic kidney disease (CKD) Plan: Anemia of chronic kidney disease CKD-IV on dialysis. Previously seen at [facility] and transferred care to [facility] as of 07/01/22 now on dialysis, gets [...] with a history of CVA, diabetes, PVD, VT x 2, cataracts, hyperlipidemia, HTN, GERD, and anemia of CKD. Surgical history includes hysterectomy, carpal tunnel surgery and bilateral arthroscopic knee surgery. She denies any personal or family history of cancer. She is referred by Dr. Sanchez Jean at [facility] to establish care for her anemia from CKD. She recently started Aranesp weekly and is in the process of getting dialysis fistula placed to start dialysis. Most recent labs reveal hgb 8.1, wbc 13.9, platelets 135,000, anc 10.8. Creatinine 4.9 with GFR 9, calcium 8.0. She is transferring care as she resides at [facility] in [place] and this is muchcloser for her and [...] for coordination of care (as documented) and [id number]-[id number] counseling of patient and/or family. [facility] - Medical History Medical History: Medical [...] calcium 500 mg-D3 400 unit-K 15 mcg-folic [id number] tablet 1 tab PO DAILY 03/28/21 [History [...] bisacodyl 10 mg rectal suppository 10 mg AK DAILY PRN Constipation 07/01/22 [History Confirmed 02/05/23] [...] <Electronically signed by ELLA Alicea> 02/05/23 0[facility] Work Phone: Reason for referral (narrative)* Consultation (Routine) - Authorized Specialty Diagnoses / Procedures Referred By Contac t Referred To Contact Cardiology Diagnoses Atherosclerosis of [place] coronary artery of [place] heart without angina pectoris Chest discomfort Procedures Follow Up In Cardiology Danii Rodriguez MD [address] [place] [address], [address] [address] Danii Rodriguez MD [address] [facility] To [facility], [address] [address] Referral ID Status Reason Start Date Expiration Date V isits Requested Visits Authorized [id number] Authorized 03/23/2023 03/22/2024 1 1 [facility] Work Phone: Summary Purpose Family History [...] section and content) DATE CREATED AUTHOR 01/06/2019 [facility] DATE CREATED AUTHOR AUTHOR'S ORGANIZ ATION 06/15/2022 [facility] DATE CREATED AUTHOR AUTHOR'S ORGANIZ ATION 08/26/2022 [facility] DATE CREATED AUTHOR AUTHOR'S ORGANIZ ATION 09/07/2022 [facility] [place] [facility] DATE CREATED AUTHOR AUTHOR'S ORGANIZ ATION 11/12/2022 [facility] DATE CREATED AUTHOR AUTHOR'S ORGANIZ ATION 03/10/2023 [facility] DATE CREATED AUTHOR AUTHOR'S ORGANIZ ATION 03/18/2023 [facility] DATE CREATED AUTHOR AUTHOR'S ORGANIZ ATION 03/25/2023 [facility] [employer] (unrecognized sec tion and content) Team [...] Young MD Admit Provider, Attending Provider 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 [facility] [employer] provides no warranty or guarantee of the accuracy or completeness of information in this document.
[2023-06-21 08:37] LABS: Bilirubin Urine NEGATIVE (NEGATIVE); Blood Urine TRACE-I (NEGATIVE); Clarity Urine SL CLOUDY (CLEAR); Color Urine LT. YELLOW (YELLOW); Glucose Urine UA NEGATIVE (NEGATIVE); Ketones Urine NEGATIVE (NEGATIVE); Leukocyte Esterase Urine SMALL (NEGATIVE); Nitrite Urine NEGATIVE (NEGATIVE); Protein Urine 100 mg/dL (NEG/TRACE); Urobilinogen Urine 0.2 EU/dL (0.2-1.0); pH Urine 5.5 (5.0-9.0)
[2023-06-21 08:38] LABS: Urine Microscopic Indicated YES
[2023-06-21 08:52] LABS: Bacteria Urine LARGE #/HPF (NONE SEEN); Cast Seen? NONE SEEN #/LPF (NONE SEEN); Crystals Seen? None Seen #/HPF (None Seen); Mucus Urine NONE SEEN (NONE SEEN); Squamous Epithelial Cell Urine FEW #/LPF (NONE/RARE); WBC Urine 50-75 #/HPF (NONE SEEN)
== END 2023-06-21 01:09 | disposition home or self-care (01) ==
LOC: LAB 01:08
PROVIDERS: PCP Family Medicine
DX: R73.9 Hyperglycemia, unspecified (principal)
CPT/HCPCS: 81001; 87086

== ENCOUNTER 2023-06-29 13:46 | Outpatient (OUT) | payer MEDICARE, MEDICAID, SELFPAY ==
--- NOTE | 2023-06-29 13:48 | US_ITS ---
[place] [address] Patient Name: SAMREEN LANGE MRN: [id number] date: 1950 Sex: F Assigned Patient Location: US Current Patient Location: US Accession/Order Number: [id number] Exam Date: 06/29/2023 13:50 Report Date: 06/29/2023 15:49 At the request of: ANTONIETTA DOYLE Procedure: US venous doppler UE RT EXAM: US venous doppler UE RT HISTORY: Right Arm Pain, Right Arm Swelling COMPARISON: None. TECHNIQUE: Grayscale, color and Doppler FINDINGS: Region: Right arm Thrombus: None Flow: Normal Augmentation: Normal Compressibility: Normal Other: Forearm fistula is identified, patent US/US venous doppler UE RT IMPRESSION: No deep or superficial vein thrombus in the right leg Patent forearm fistula Electronically authenticated by: NAGA SANTIAGO Date: 06/29/2023 15:49
== END 2023-06-29 13:47 | disposition home or self-care (01) ==
LOC: US 13:46
PROVIDERS: PCP Family Medicine; Visit Provider Internal Medicine Nephrology
DX: M79.621 Pain in right upper arm (principal); R22.31 Localized swelling, mass and lump, right upper limb
CPT/HCPCS: 93971

== ENCOUNTER 2023-08-02 02:52 | Outpatient (REF) | payer MEDICARE, MEDICAID, SELFPAY ==
--- OUTSIDE RECORDS SUMMARY | 2023-08-02 02:56 | XMS_ITS | CCD ---
Author Organization [facility] Care Team Providers Care Rebar Bender Name Role Phone MD Christopher Mann Primary Care Provider ELLA Alicea Attending Provider MD Sanchez Jean Referring Provider Essie Salas Unavailable MD Christopher aMnn Primary Care Provider ELLA Alicea Attending Provider MD Sanchez Jean Referring Provider SAMIRA Moss Emergency Provider MD Camila Young Admit Provider MD Camila Young Attending Provider [phone] Danii Rodriguez Attending Unavailable TraboulDanii menjivar Attending Unavailable TraboulDanii menjivar Attending Unavailable Traboulssi, Danii Attending Unavailable Danii Rodriguez Attending Unavailable JOHNATHAN, DR WHITE Consulting Unavailable JOHNATHAN, DR WHITE Primary Care Unavailable JOHNATHAN, DR WHITE Attending Unavailable JOHNATHAN, DR WHITE Admitting Unavailable JOHNATHAN, DR WHITE Consulting Unavailable JORDYN RAMEY Attending Unavailable JORDYN RAMEY Admitting Unavailable JOHNATHAN, DR WHITE Primary Care Unavailable JOHNATHAN, DR WHITE Consulting Unavailable JOHNATHAN, DR WHITE Primary Care Unavailable MISC, DR SIDDIQUI Attending Unavailable MISC, DR SIDDIQUI Admitting Unavailable DR ARTURO MARCOS Consulting Unavailable JOHNATHAN, DR WHITE Primary Care [...] Attending Unavailable JOHNATHAN, DR WHITE Admitting Unavailable PattersonChristopher Unavailable Unavailable Unavailable MD Christopher Mann Primary Care Provider [phone] ELLA Alicea Attending Provider MD Sanchez Jean Referring Provider [phone] Essence Alicea Admitting Unavail able Essence Alicea Attending Unavail able Sanchez Jean Referring Unavailable Christopher Mann Primary Care Unavailable PattersonChristopher Primary Care Unavailable Camila Young Admitting Unavailable Ed, Levy Attending Unavailable Kerrie Camilo Consulting Dr. Danii Orellana Referring Unavaila Dr. Danii Moe Attending Unavaila ble Johnathan, Dr. Christopher Joe Primary Care Unavaila Christopher Santana MD Primary Care Provider DANII RODRIGUEZ Attending Unavailable CHRISTOPHER MANN Primary Care Unavailable Allergies Allergy Classification Reported Allergen(s) Allergy Type Date of Onset Reaction(s) Facility (7 sources) Cephalexin; Translations: [cephalexin] Drug Allergy 3 Itching, Swelling [facility] (5 sources) Diclofenac; Translations: [diclofenac] Drug Allergy 3 Swelling [facility] (5 sources) miSOPROStol; Translations: [misoprostol] Drug Allergy 3 Swelling [facility] (5 sources) Cephalexin; Translations: [Keflex] Drug Allergy 6 reddened pruritic rash, Swelling, Itching [facility] Repository (4 sources) Diclofenac / miSOPROStol Drug Allergy 3 [facility] (1 source) Diclofenac / miSOPROStol Drug Allergy 6 [facility] (1 source) Diclofenac / miSOPROStol; Translations: [Arthrotec TABS] Drug Allergy Hives, Itching, Rash [facility] Lettuce [employer] IP 250 DO Work Phone: (1 source) shellfish, unspecified Allergy to substance (finding) Vomiting [facility] 250 DO Work Phone: (2 sources) Shellfish; Translations: [SHELLFISH CONTAINING PRODUCTS] Propensity to adverse reactions 3 Nausea/vomiting [facility] Work Phone: (1 source) Diclofenac / miSOPROStol; Translations: [DICLOFENAC-MIS OPROSTOL] Drug Allergy 3 [facility] 3 Repository Medications Current Medications Medication Drug [...] times daily as needed for pain HYDROcodone-acetaminophen ([place]) 5-325 mg tablet Take 1 tablet by [...] 03-28-2021 End: 06-30-2022 Bisacodyl Active 10 MG GA Daily July 01, 2022 1:00am Calcium + [...] 2 tablets Orally Once a day Active Mbptqxg-Z3-V-Fa-Z82-M-Rn nerals (4 sources) Start: 03-28-2021 take 1 tablet by mouth once daily Iaypqca-A7-F-Fa-B12-C-M inerals Active 1 TAB PO Daily March 28, 2021 1:00am Start: 03-28-2021 take 1 tablet by harseh th once daily Pmikwyy-S8-Q-Vk-R64-VI60-U-Dtdvouix Active 1 TAB PO Daily March 28, [...] % as directed Externally Active Epoetin Chris 97019 UNIT/ML (3 sources) Epoetin Chris 200 00 [...] 2021 1:00am take 1 capsule by mo [facility] three times daily gabapentin (Neurontin) 300 [...] Translations: [INAPPROPRIATE DIET AND EATING HABITS] Onset: Episodic Screening and history of mental health [...] 11-11-2022 Follow-up visit Diagnoses/Problems Assessed Atherosclerosis of seminole coronary artery without angina pectoris (414.01) (I25.10) Chest discomfort (786.59) (R07.89) Benign essential hypertension (401.1) (I10) Hyperlipidemia (272.4) (E78.5) Stroke (434.91) (I63.9) Dialysis patient (V45.11) (Z99.2) shelter resident (V60.6) (Z59.3) Former smoker (V15.82) (Z87.891) Orders SocHx: Former smoker Tobacco Use Screening; Status:Complete; Done: [id number] Patient Instructions Please bring all medicines, vitamins, [...] of coronary artery disease prior intervention in [place]. Detail is lacking. She does have history [...] 1. Coronary artery disease prior intervention in [place] detail is lacking. Recent evaluation of atypical chest pain. Stress test and echocardiogram appears to be reassuring 2. Chronic kidney disease on hemodialysis 3. Hypertension controlled 4. Hyperlipidemia on treatment 5. Diabetes mellitus 6. History of stroke with left-sided weakness and 7. shelter resident 8. Intermittent episode of hemodialysis associated [...] smoker (V15.82) (Z87.891) No illicit drug use shelter resident (V60.6) (Z59.3) Review of Systems Constitutional: [...] habits an (more content not included)... Normal [place] Tobacco Screening.on 023 Fall risk assessment a) No falls within the last year [facility] [employer] 250 DO Work Phone: Tobacco use status [facility] b) No [facility] [employer] 250 DO Work Phone: Glucose Poct Glucometerson 0 08-05-2022 Glucose [Mass/Vol] 113 mg/dL Normal [facility] Comment on above: Result Comment: [facility] [place] Glucose Reference Range is dependent on time and content of last meal. Glucose of more than 200 mg/dL in a nonstressed, ambulatory subject supports the diagnosis of Diabetes Mellitus. PERFORMED BY: [place] [address] PATHOLOGIST PICTURE PAINTER DANII HAYNES M.D. Performed By: #### B MP, CBC #### [address] Glucose [Mass/Vol] 108 mg/dL Normal [facility] Comment on above: Result Comment: [facility] [place] Glucose Reference Range is dependent on time and content of last meal. Glucose of more than 200 mg/dL in a nonstressed, ambulatory subject supports the diagnosis of Diabetes Mellitus. PERFORMED BY: [place] [address] PATHOLOGIST PICTURE PAINTER DANII HAYNES M.D. Performed By: #### G CAPRICE #### Point of Care testing , Renal Function Panelon 08-05 Albumin [Mass/Vol] 3.3 g/dL Low 3.5-5.7 [facility] Comment on above: Order Comment: pt wo uldnt let me retry to get the blood work Performed By: #### B MP, CBC #### [place] [address] [place] Anion gap [Moles/Vol] 13.9 mmol/L Normal 6.0-15.0 [facility] Comment on above: Order Comment: pt wo uldnt let me retry to get the blood work Performed By: #### B MP, CBC #### [place] [address] [place] Calcium [Mass/Vol] 8.6 mg/dL Normal 8.6-10.3 [facility] Comment on above: Order Comment: pt wo uldnt let me retry to get the blood work Performed By: #### B MP, CBC #### [place] [address] [place] Chloride [Moles/Vol] 98 mmol/L Normal 98-107 [facility] Comment on above: Order Comment: pt wo uldnt let me retry to get the blood work Performed By: #### B MP, CBC #### [address] CO2 [Moles/Vol] 26.3 mmol/L Normal 21.0-31.0 [facility] Comment on above: Order Comment: pt wo uldnt let me retry to get the blood work Performed By: #### B MP, CBC #### [facility] [address] Creatinine [Mass/Vol] 5.26 mg/dL Significan t change up 0.60-1.20 [facility] Comment on above: Order Comment: pt wo uldnt let me retry to get the blood work Performed By: #### B MP, CBC #### [address] Creatinine Clr Calc Pharmacy 11.05 [facility] Comment on above: Order Comment: pt wo uldnt let me retry to get the blood work Result Comment: PERF ORMED BY: [place] [address] PATHOLOGIST PICTURE PAINTER DANII HAYNES M.D. Performed By: #### B MP, CBC #### [address] GFR/1.73 sq M.predicted MDRD (S/P/Bld) [Vol rate/Area] 8.165 mL/min/{1.73_m2} [facility] Comment on above: Order Comment: pt wo uldnt let me retry to get the blood work Performed By: #### B MP, CBC #### [facility] [address] [place] [address] [place] Glucose [Mass/Vol] 111 mg/dL High 70-100 [facility] Comment on above: Order Comment: pt wo uldnt let me retry to get the blood work Result Comment: [place] [facility] Glucose Reference Range is dependent on time and content of last meal. Glucose of more than 200 mg/dL in a nonstressed, ambulatory subject supports the diagnosis of Diabetes Mellitus. ADA recommended reference range Performed By: #### B MP, CBC #### [facility] [address] [place] [address] [place] Phosphate [Mass/Vol] 5.3 mg/dL Normal 3.7-7.2 [facility] Comment on above: Order Comment: pt wo uldnt let me retry to get the blood work Performed By: #### B MP, CBC #### [facility] [address] [place] [address] [place] Potassium [Moles/Vol] 4.2 mmol/L Normal 3.5-5.1 [facility] Comment on above: Order Comment: pt wo uldnt let me retry to get the blood work Performed By: #### B MP, CBC #### [facility] [address] [place] [address] [place] Sodium [Moles/Vol] 134 mmol/L Low 136-145 [facility] Comment on above: Order Comment: pt wo uldnt let me retry to get the blood work Performed By: #### B MP, CBC #### [place] [address] [place] Urea nitrogen [Mass/Vol] 48 mg/dL High 7-25 [facility] Comment on above: Order Comment: pt wo uldnt let me retry to get the blood work Performed By: #### B MP, CBC #### [address] Glucose Poct Glucometerson 0 08-04-2022 Glucose [Mass/Vol] 118 mg/dL Normal [facility] Comment on above: Result Comment: [facility] [place] Glucose Reference Range is dependent on time and content of last meal. Glucose of more than 200 mg/dL in a nonstressed, ambulatory subject supports the diagnosis of Diabetes Mellitus. PERFORMED BY: [place] [address] PATHOLOGIST PICTURE PAINTER DANII HAYNES M.D. Performed By: #### G CAPRICE #### Point of Care testing , Glucose [Mass/Vol] 118 mg/dL Normal [facility] Comment on above: Result Comment: [facility] [place] Glucose Reference Range is dependent on time and content of last meal. Glucose of more than 200 mg/dL in a nonstressed, ambulatory subject supports the diagnosis of Diabetes Mellitus. PERFORMED BY: [place] [phone] PATHOLOGIST PICTURE PAINTER DANII HAYNES M.D. Performed By: #### G CAPRICE #### Point of Care testing , Glucose [Mass/Vol] 136 mg/dL Normal [facility] Comment on above: Result Comment: [facility] [place] Glucose Reference Range is dependent on time and content of last meal. Glucose of more than 200 mg/dL in a nonstressed, ambulatory subject supports the diagnosis of Diabetes Mellitus. PERFORMED BY: [place] [phone] PATHOLOGIST PICTURE PAINTER DANII HAYNES M.D. Performed By: #### C MP #### [address] NM ping perf SPECT rest stron 08-04-2022 NM ping perf SPECT rest str [facility] [place] [address] [place], [place] [id number] Nuclear Medicine Report Signed Patient: Amparo Castorena MR#: [id number] 68 : 1950 Acct:[id number] Age/Sex: 71 / F ADM Date: 08/02/22 Loc: Room: [address] [place] [address] Type: ADM IN Attending Dr: Levy Ward MD Copies to: MD Jimbo Judd MD, [facility] Danii Rodriguez MD Ordering Provider: Danii [...] 08/04/22 1343 Dictated By: Jimbo Damon MD, [facility] 08/04/22 1247 Signed By: 08/04/22 1349 Normal [facility] Renal Function Panelon 08-04 Albumin [Mass/Vol] 3.0 g/dL Low 3.5-5.7 [facility] Comment on above: Performed By: #### C MP #### [facility] [address] Anion gap [Moles/Vol] 13.5 mmol/L Normal 6.0-15.0 [facility] Comment on above: Performed By: #### C MP #### [facility] [address] [place] [address] [place] Calcium [Mass/Vol] 7.9 mg/dL Low 8.6-10.3 [facility] Comment on above: Performed By: #### C MP #### [facility] [address] [place] [address] [place] Chloride [Moles/Vol] 97 mmol/L Low 98-107 [facility] Comment on above: Performed By: #### C MP #### [facility] [address] [place] [address] [place] CO2 [Moles/Vol] 26.3 mmol/L Normal 21.0-31.0 [facility] Comment on above: Performed By: #### C MP #### [facility] [address] [place] [address] [place] Creatinine [Mass/Vol] 4.44 mg/dL Significan t change up 0.60-1.20 [facility] Comment on above: Performed By: #### C MP #### [place] [address] [place] Creatinine Clr Calc Pharmacy 13.53 [facility] Comment on above: Result Comment: PERF ORMED BY: [place] [address] PATHOLOGIST PICTURE PAINTER DANII HAYNES M.D. Performed By: #### C MP #### [place] [address] [place] GFR/1.73 sq M.predicted MDRD (S/P/Bld) [Vol rate/Area] 10.006 mL/min/{1.73_m2} Normal [facility] Comment on above: Performed By: #### C MP #### [address] Glucose [Mass/Vol] 136 mg/dL High 70-100 [facility] Comment on above: Result Comment: [facility] [place] Glucose Reference Range is dependent on time and content of last meal. Glucose of more than 200 mg/dL in a nonstressed, ambulatory subject supports the diagnosis of Diabetes Mellitus. ADA recommended reference range Performed By: #### C MP #### [place] [address] [place] Phosphate [Mass/Vol] 4.2 mg/dL Normal 3.7-7.2 [facility] Comment on above: Performed By: #### C MP #### [place] [address] [place] Potassium [Moles/Vol] 3.8 mmol/L Normal 3.5-5.1 [facility] Comment on above: Performed By: #### C MP #### [place] [address] [place] Sodium [Moles/Vol] 133 mmol/L Low 136-145 [facility] Comment on above: Performed By: #### C MP #### [place] [address] [place] Urea nitrogen [Mass/Vol] 36 mg/dL High 7-25 [facility] Comment on above: Performed By: #### C MP #### [facility] [address] [place] [address] [place] STR cardiac stress/lexiscano n 08-04-2022 STR cardiac stress/lexiscan [facility] [place] [address] [place] [address] Cardiac Stress Test Signed Patient: Amparo Castorena MR#: [id number] 68 : 1950 Acct:[id number] Age/Sex: 71 / F ADM Date: 08/02/22 Loc: Room: [address] [place] [address] Type: ADM IN Attending Dr: Levy Ward [...] MD 08/04/22 1143 Signed By: 08/05/22 0802 [facility] Blood Cultureon 08-03-2022 Bacteria identified Cx Nom (Bld) NO GROWTH 5 DAYS PERFORMED BY: [place] [address] PATHOLOGIST PICTURE PAINTER DANII HAYNES M.D. [facility] Comment on above: Performed By: #### C UBLD #### [facility] [address] [place] [address] [facility] Bacteria identified Cx Nom (Bld) NO GROWTH 5 DAYS PERFORMED BY: [place] [id number] PATHOLOGIST PICTURE PAINTER DANII HAYNES M.D. Normal [facility] Comment on above: Performed By: #### C UBLD #### [address] Complete Blood Count Auto Di ffon 08-03-2022 Basophils (Bld) [#/Vol] 0.0 10*3/uL Normal 0.0-0.2 [facility] Comment on above: Result Comment: PERF ORMED BY: [place] [address] PATHOLOGIST PICTURE PAINTER DANII HAYNES M.D. Performed By: #### G LULS #### Point of Care testing , Basophils/100 WBC (Bld) 0.4 % Normal . [facility] Comment on above: Performed By: #### G LULS #### Point of Care testing , Eosinophils (Bld) [#/Vol] 0.3 10*3/uL Normal 0.0-0.45 [facility] Comment on above: Performed By: #### G LULS #### Point of Care testing , Eosinophils/100 WBC (Bld) 2.7 % Normal . [facility] Comment on above: Performed By: #### G LULS #### Point of Care testing , Erythrocyte distribution width (RBC) [Ratio] 14.8 % Normal 11.9-15.3 [facility] Comment on above: Performed By: #### G LULS #### Point of Care testing , Hematocrit (Bld) [Volume fraction] 25.9 % Low 34.0-46.4 [facility] Comment on above: Performed By: #### G LULS #### Point of Care testing , Hemoglobin (Bld) [Mass/Vol] 8.4 g/dL Low 11.8-15.4 [facility] Comment on above: Performed By: #### G LULS #### Point of Care testing , Lymphocytes (Bld) [#/Vol] 2.0 10*3/uL Normal 1.00-4.8 [facility] Comment on above: Performed By: #### Ayo VASQUES #### Point of Care testing , Lymphocytes/100 WBC (Bld) 19.0 % Normal . [facility] Comment on above: Performed By: #### Ayo SELLERSLS #### Point of Care testing , MCH (RBC) [Entitic mass] 29.6 pg Normal 24.7-34.3 [facility] Comment on above: Performed By: #### Ayo SELLERSLS #### Point of Care testing , MCV (RBC) [Entitic vol] 91.1 fL Normal 80-100 [facility] Comment on above: Performed By: #### Ayo SELLERSLS #### Point of Care testing , Mean Corpuscular HGB Conc 32.5 g/dL Normal 32.0-35.0 [facility] Comment on above: Performed By: #### Ayo VASQUES #### Point of Care testing , Monocytes (Bld) [#/Vol] 0.9 10*3/uL High 0.0-0.8 [facility] Comment on above: Performed By: #### Ayo SELLERSLS #### Point of Care testing , Monocytes/100 WBC (Bld) 9.0 % Normal . [facility] Comment on above: Performed By: #### Ayo VASQUES #### Point of Care testing , Neutrophils (Bld) [#/Vol] 7.1 10*3/uL Normal 1.8-7.7 [facility] Comment on above: Performed By: #### Ayo SELLERSLS #### Point of Care testing , Neutrophils/100 WBC (Bld) 68.9 % Normal . [facility] Comment on above: Performed By: #### Ayo VASQUES #### Point of Care testing , NRBC% 0.0 /100{WBC} Normal 0-0.5 [facility] Comment on above: Performed By: #### Ayo SELLERSLS #### Point of Care testing , Platelet mean volume (Bld) [Entitic vol] 8.0 fL Normal 6.3-10.7 [facility] Comment on above: Performed By: #### Ayo VASQUES #### Point of Care testing , Platelets (Bld) [#/Vol] 145 10*3/uL Low 150-450 [facility] Comment on above: Performed By: #### G CAPRICE #### Point of Care testing , RBC (Bld) [#/Vol] 2.84 10*6/uL Low 3.60-5.00 [facility] Comment on above: Performed By: #### G LULS #### Point of Care testing , WBC (Bld) [#/Vol] 10.3 10*3/uL Normal 3.8-11.6 [facility] Comment on above: Performed By: #### G CAPRICE #### Point of Care testing , Glucose Poct Glucometerson 0 08-03-2022 Glucose [Mass/Vol] 144 mg/dL Normal [facility] Comment on above: Result Comment: [place] Glucose Reference Range is dependent on time and content of last meal. Glucose of more than 200 mg/dL in a nonstressed, ambulatory subject supports the diagnosis of Diabetes Mellitus. PERFORMED BY: [place] [address] PATHOLOGIST PICTURE PAINTER DANII HAYNES M.D. Performed By: #### C MP #### [address] Commemt1 Glu2: Cleaned Meter Normal [facility] Comment on above: Result Comment: PERF ORMED BY: [place] [address] PATHOLOGIST PICTURE PAINTER DANII HAYNES M.D. Performed By: #### C MP #### [address] Glucose [Mass/Vol] 175 mg/dL Normal [facility] Comment on above: Result Comment: [place] Glucose Reference Range is dependent on time and content of last meal. Glucose of more than 200 mg/dL in a nonstressed, ambulatory subject supports the diagnosis of Diabetes Mellitus. Performed By: #### C MP #### [address] Complete Blood Count Auto Di ffon 08-02-2022 Basophils (Bld) [#/Vol] 0.1 10*3/uL Normal 0.0-0.2 [facility] Comment on above: Result Comment: PERF ORMED BY: [place] [address] PATHOLOGIST PICTURE PAINTER DANII HAYNES M.D. Performed By: #### C BC #### [address] Basophils/100 WBC (Bld) 0.7 % Normal . [facility] Comment on above: Performed By: #### C BC #### [address] Eosinophils (Bld) [#/Vol] 0.2 10*3/uL Normal 0.0-0.45 [facility] Comment on above: Performed By: #### C BC #### [address] Eosinophils/100 WBC (Bld) 1.7 % Normal . [facility] Comment on above: Performed By: #### C BC #### [address] Erythrocyte distribution width (RBC) [Ratio] 15.3 % Normal 11.9-15.3 [facility] Comment on above: Performed By: #### C BC #### [address] Hematocrit (Bld) [Volume fraction] 27.4 % Low 34.0-46.4 [facility] Comment on above: Performed By: #### C BC #### [address] Hemoglobin (Bld) [Mass/Vol] 8.8 g/dL Low 11.8-15.4 [facility] Comment on above: Performed By: #### C BC #### [address] Lymphocytes (Bld) [#/Vol] 2.0 10*3/uL Normal 1.00-4.8 [facility] Comment on above: Performed By: #### C BC #### [address] Lymphocytes/100 WBC (Bld) 16.7 % Normal . [facility] Comment on above: Performed By: #### C BC #### [address] MCH (RBC) [Entitic mass] 29.3 pg Normal 24.7-34.3 [facility] Comment on above: Performed By: #### C BC #### [address] MCV (RBC) [Entitic vol] 91.8 fL Normal 80-100 [facility] Comment on above: Performed By: #### C BC #### [address] Mean Corpuscular HGB Conc 32.0 g/dL Normal 32.0-35.0 [facility] Comment on above: Performed By: #### C BC #### [address] Monocytes (Bld) [#/Vol] 0.8 10*3/uL Normal 0.0-0.8 [facility] Comment on above: Performed By: #### C BC #### [address] Monocytes/100 WBC (Bld) 7.1 % Normal . [facility] Comment on above: Performed By: #### C BC #### [address] Neutrophils (Bld) [#/Vol] 8.6 10*3/uL High 1.8-7.7 [facility] Comment on above: Performed By: #### C BC #### [address] Neutrophils/100 WBC (Bld) 73.8 % Normal . [facility] Comment on above: Performed By: #### C BC #### [place] [address] [place] NRBC% 0.0 /100{WBC} Normal 0-0.5 [facility] Comment on above: Performed By: #### C BC #### [address] Platelet mean volume (Bld) [Entitic vol] 8.2 fL Normal 6.3-10.7 [facility] Comment on above: Performed By: #### C BC #### [address] Platelets (Bld) [#/Vol] 145 10*3/uL Low 150-450 [facility] Comment on above: Performed By: #### C BC #### [address] RBC (Bld) [#/Vol] 2.98 10*6/uL Low 3.60-5.00 [facility] Comment on above: Performed By: #### C BC #### [address] WBC (Bld) [#/Vol] 11.7 10*3/uL High 3.8-11.6 [facility] Comment on above: Performed By: #### C BC #### [address] Comprehensive Metabolic Pane tamika 08-02-2022 Albumin [Mass/Vol] 3.0 g/dL Low 3.5-5.7 [facility] Comment on above: Performed By: #### C MP #### [address] Albumin/Globulin [Mass ratio] 0.7 {ratio} Normal [facility] Comment on above: Performed By: #### C MP #### [address] ALP [Catalytic activity/Vol] 101 U/L Normal 34-104 [facility] Comment on above: Performed By: #### C MP #### [address] ALT [Catalytic activity/Vol] 18 U/L Normal 7-52 [facility] Comment on above: Performed By: #### C MP #### [facility] [address] Anion gap [Moles/Vol] 14.2 mmol/L Normal 6.0-15.0 [facility] Comment on above: Performed By: #### C MP #### [facility] [address] AST [Catalytic activity/Vol] 19 U/L Normal 13-39 [facility] Comment on above: Performed By: #### C MP #### [facility] [address] Bilirubin [Mass/Vol] 0.5 mg/dL Normal 0.3-1.0 [facility] Comment on above: Performed By: #### C MP #### [facility] [address] [place] [address] Calcium [Mass/Vol] 7.6 mg/dL Low 8.6-10.3 [facility] Comment on above: Performed By: #### C MP #### [facility] [address] Chloride [Moles/Vol] 98 mmol/L Normal 98-107 [facility] Comment on above: Performed By: #### C MP #### [address] CO2 [Moles/Vol] 25.4 mmol/L Normal 21.0-31.0 [facility] Comment on above: Performed By: #### C MP #### [facility] [address] Creatinine [Mass/Vol] 6.16 mg/dL Significan t change up 0.60-1.20 [facility] Comment on above: Performed By: #### C MP #### [address] Creatinine Clr Calc Pharmacy 9.83 Normal [facility] Comment on above: Result Comment: PERF ORMED BY: [place] [address] PATHOLOGIST PICTURE PAINTER DANII HAYNES M.D. Performed By: #### C MP #### [place] [address] [place] GFR/1.73 sq M.predicted MDRD (S/P/Bld) [Vol rate/Area] 6.755 mL/min/{1.73_m2} [facility] Comment on above: Performed By: #### C MP #### [address] Globulin (S) [Mass/Vol] 4.5 g/dL [facility] Comment on above: Performed By: #### C MP #### [address] Glucose [Mass/Vol] 165 mg/dL High 70-100 [facility] Comment on above: Result Comment: [place] Glucose Reference Range is dependent on time and content of last meal. Glucose of more than 200 mg/dL in a nonstressed, ambulatory subject supports the diagnosis of Diabetes Mellitus. ADA recommended reference range Performed By: #### C MP #### [address] Potassium [Moles/Vol] 4.6 mmol/L Normal 3.5-5.1 [facility] Comment on above: Performed By: #### C MP #### [address] Protein [Mass/Vol] 7.5 g/dL Normal 6.4-8.9 [facility] Comment on above: Performed By: #### C MP #### [place] [address] [place] Sodium [Moles/Vol] 133 mmol/L Low 136-145 [facility] Comment on above: Performed By: #### C MP #### [address] Urea nitrogen [Mass/Vol] 47 mg/dL High 7-25 [facility] Comment on above: Performed By: #### C MP #### [address] [place] [address] [facility] Glucose Poct Glucometerson 0 08-02-2022 Glucose [Mass/Vol] 180 mg/dL Normal [facility] Comment on above: Result Comment: [facility] Glucose Reference Range is dependent on time and content of last meal. Glucose of more than 200 mg/dL in a nonstressed, ambulatory subject supports the diagnosis of Diabetes Mellitus. PERFORMED BY: [place] [address] PATHOLOGIST PICTURE PAINTER DANII HAYNES M.D. Performed By: #### G LULS #### Point of Care testing , Glucose [Mass/Vol] 166 mg/dL Normal [facility] Comment on above: Result Comment: [facility] Glucose Reference Range is dependent on time and content of last meal. Glucose of more than 200 mg/dL in a nonstressed, ambulatory subject supports the diagnosis of Diabetes Mellitus. PERFORMED BY: [place] [address] PATHOLOGIST PICTURE PAINTER DANII HAYNES M.D. Performed By: #### B MP, CBC #### [address] Glucose [Mass/Vol] 118 mg/dL Normal [facility] Comment on above: Result Comment: [facility] Glucose Reference Range is dependent on time and content of last meal. Glucose of more than 200 mg/dL in a nonstressed, ambulatory subject supports the diagnosis of Diabetes Mellitus. PERFORMED BY: [place] [address] PATHOLOGIST PICTURE PAINTER DANII HAYNES M.D. Performed By: #### G LULS #### Point of Care testing , Basic Metabolic Panelon 04- Anion gap [Moles/Vol] 16.7 mmol/L High 6.0-15.0 [facility] Comment on above: Performed By: #### B MP, CBC #### [address] Calcium [Mass/Vol] 8.2 mg/dL Low 8.6-10.3 [facility] Comment on above: Performed By: #### B MP, CBC #### [facility] [address] [place] [address] [place] Chloride [Moles/Vol] 99 mmol/L Normal 98-107 [facility] Comment on above: Performed By: #### B MP, CBC #### [facility] [address] [place] [address] [place] CO2 [Moles/Vol] 22.6 mmol/L Normal 21.0-31.0 [facility] Comment on above: Performed By: #### B MP, CBC #### [facility] [address] Creatinine [Mass/Vol] 4.98 mg/dL Significan t change up 0.60-1.20 [facility] Comment on above: Performed By: #### B MP, CBC #### [facility] [address] Creatinine Clr Calc Pharmacy 11.87 Normal [facility] Comment on above: Result Comment: PERF ORMED BY: [place] [address] PATHOLOGIST PICTURE PAINTER DANII HAYNES M.D. Performed By: #### B MP, CBC #### [facility] [address] [place] [address] [place] GFR/1.73 sq M.predicted MDRD (S/P/Bld) [Vol rate/Area] 8.719 mL/min/{1.73_m2} Normal [facility] Comment on above: Performed By: #### B MP, CBC #### [facility] [address] [place] [address] [place] Glucose [Mass/Vol] 129 mg/dL High 70-100 [facility] Comment on above: Result Comment: [place] Glucose Reference Range is dependent on time and content of last meal. Glucose of more than 200 mg/dL in a nonstressed, ambulatory subject supports the diagnosis of Diabetes Mellitus. ADA recommended reference range Performed By: #### B MP, CBC #### [facility] [address] Potassium [Moles/Vol] 4.3 mmol/L Normal 3.5-5.1 [facility] Comment on above: Performed By: #### B MP, CBC #### [address] Sodium [Moles/Vol] 134 mmol/L Low 136-145 [facility] Comment on above: Performed By: #### B MP, CBC #### [facility] [address] Urea nitrogen [Mass/Vol] 37 mg/dL High 7-25 [facility] Comment on above: Performed By: #### B MP, CBC #### [address] Blood Cultureon 08-01-2022 Bacteria identified Cx Nom (Bld) Gram stain results called at 1517 on 08/02/22 Gram Stain Gram Positive Cocci in Clusters ORGANISM: Staphylococcus epidermidis (O:STAEPI) Organism Comments For MARIANNE Refer to Final Report of Blood Culture Collected Date 08/01/22 PERFORMED BY: [place] [address] PATHOLOGIST PICTURE PAINTER DANII HAYNES M.D. [facility] Comment on above: Performed By: #### [...] culture Not detected Group A (Streptococcus pyogenes) [id number] Not detected Group B Strep (Streptococcus agalactiae) [...] indicate anti (more content not included)... Normal [facility] Comment on above: Performed By: #### G LULS #### Point of Care testing , Complete Blood Count Auto Di ffon 08-01-2022 Basophils (Bld) [#/Vol] 0.1 10*3/uL Normal 0.0-0.2 [facility] Comment on above: Result Comment: PERF ORMED BY: [place] [address] PATHOLOGIST PICTURE PAINTER DANII HAYNES M.D. Performed By: #### B MP, CBC #### [facility] [address] [place] [address] Basophils/100 WBC (Bld) 0.3 % Normal . [facility] Comment on above: Performed By: #### B MP, CBC #### [facility] [address] [place] [address] [place] Eosinophils (Bld) [#/Vol] 0.2 10*3/uL Normal 0.0-0.45 [facility] Comment on above: Performed By: #### B MP, CBC #### [facility] [address] Eosinophils/100 WBC (Bld) 1.1 % Normal . [facility] Comment on above: Performed By: #### B MP, CBC #### [address] Erythrocyte distribution width (RBC) [Ratio] 15.2 % Normal 11.9-15.3 [facility] Comment on above: Performed By: #### B MP, CBC #### [address] Hematocrit (Bld) [Volume fraction] 28.8 % Low 34.0-46.4 [facility] Comment on above: Performed By: #### B MP, CBC #### [address] Hemoglobin (Bld) [Mass/Vol] 9.1 g/dL Low 11.8-15.4 [facility] Comment on above: Performed By: #### B MP, CBC #### [place] [address] [place] Lymphocytes (Bld) [#/Vol] 2.0 10*3/uL Normal 1.00-4.8 [facility] Comment on above: Performed By: #### B MP, CBC #### [place] [address] [place] Lymphocytes/100 WBC (Bld) 12.7 % Normal . [facility] Comment on above: Performed By: #### B MP, CBC #### [address] MCH (RBC) [Entitic mass] 29.1 pg Normal 24.7-34.3 [facility] Comment on above: Performed By: #### B MP, CBC #### [place] [address] MCV (RBC) [Entitic vol] 92.0 fL Normal 80-100 [facility] Comment on above: Performed By: #### B MP, CBC #### [address] Mean Corpuscular HGB Conc 31.6 g/dL Low 32.0-35.0 [facility] Comment on above: Performed By: #### B MP, CBC #### [address] Monocytes (Bld) [#/Vol] 1.5 10*3/uL High 0.0-0.8 [facility] Comment on above: Performed By: #### B MP, CBC #### [address] Monocytes/100 WBC (Bld) 9.3 % Normal . [facility] Comment on above: Performed By: #### B MP, CBC #### [address] Neutrophils (Bld) [#/Vol] 11.9 10*3/uL High 1.8-7.7 [facility] Comment on above: Performed By: #### B MP, CBC #### [address] Neutrophils/100 WBC (Bld) 76.6 % Normal . [facility] Comment on above: Performed By: #### B MP, CBC #### [address] NRBC% 0.0 /100{WBC} Normal 0-0.5 [facility] Comment on above: Performed By: #### B MP, CBC #### [address] Platelet mean volume (Bld) [Entitic vol] 8.6 fL Normal 6.3-10.7 [facility] Comment on above: Performed By: #### B MP, CBC #### [address] Platelets (Bld) [#/Vol] 123 10*3/uL Significant change down 150-450 [facility] Comment on above: Performed By: #### B MP, CBC #### [facility] [address] RBC (Bld) [#/Vol] 3.13 10*6/uL Low 3.60-5.00 [facility] Comment on above: Performed By: #### B MP, CBC #### [facility] [address] WBC (Bld) [#/Vol] 15.6 10*3/uL High 3.8-11.6 [facility] Comment on above: Performed By: #### B MP, CBC #### [address] ECG 12 lead ECGon 08-01-2022 ECG 12 lead ECG [facility] [place] [address] [place] [address] Electrocardiograph Report Signed Patient: Amparo Castorena MR#: [id number] 68 : 1950 Acct:[id number] Age/Sex: 71 / F ADM Date: 08/02/22 Loc: Room: [address] [place] [address] Type: ADM IN Attending Dr: Yash Ortega [...] When compared with ECG of 31-JUL-2022 15:08, GA interval has increased Confirmed by GERTRUDE STRICKLAND FACSCAR Meier ([id number]) on 08/03/2022 10:28:47 AM Referred By: Electronically Signed By:SCAR LOREDO MD FACC Transcribed By: MUS Signed By Juan Loredo MD 08/03/22 1028 Normal [facility] echo transthoracicon [facility] echo transthoracic [facility] [place] [address] [place], [place] [id number] Echocardiogram Signed Patient: Amparo Castorena MR#: [id number] 68 : 1950 Acct:[id number] Age/Sex: 71 / F ADM Date: 07/31/22 Loc: Room: [address] [place] [address] Type: ADM IN Attending Dr: Yash Ortega MD Ordering Provider: Yash Ortega MD Date of Service: 08/01/2212/17/951 [facility] echo transthoracic: chest pain Copies to: MD Yash Arndt MD BSA: 2.1 m2 BP: 138/76 mmHg HR: 80 Reason For Study: chest pain History: CKD, CVA, DM, HTN, HLD, DC, PVD, stents Interpretation Summary Ejection Fraction = [...] By: Danii Rodriguez MD 08/01/22 1334 Normal [facility] Glucose Poct Glucometerson 0 08-01-2022 Glucose [Mass/Vol] 159 mg/dL Normal [facility] Comment on above: Result Comment: [facility] Glucose Reference Range is dependent on time and content of last meal. Glucose of more than 200 mg/dL in a nonstressed, ambulatory subject supports the diagnosis of Diabetes Mellitus. PERFORMED BY: [place] [phone] PATHOLOGIST PICTURE PAINTER DANII HAYNES M.D. Performed By: #### C MP #### [facility] [address] [place] [address] Glucose [Mass/Vol] 114 mg/dL Normal [facility] Comment on above: Result Comment: [facility] Glucose Reference Range is dependent on time and content of last meal. Glucose of more than 200 mg/dL in a nonstressed, ambulatory subject supports the diagnosis of Diabetes Mellitus. PERFORMED BY: [place] [address] PATHOLOGIST PICTURE PAINTER DANII HAYNES M.D. Performed By: #### B MP, CBC #### [facility] [address] [place] [address] [place] Glucose [Mass/Vol] 170 mg/dL Normal [facility] Comment on above: Result Comment: [place] om Glucose Reference Range is dependent on time and content of last meal. Glucose of more than 200 mg/dL in a nonstressed, ambulatory subject supports the diagnosis of Diabetes Mellitus. PERFORMED BY: [place] [address] PATHOLOGIST PICTURE PAINTER DANII HAYNES M.D. Performed By: #### C MP #### [address] Glucose [Mass/Vol] 152 mg/dL Normal [facility] Comment on above: Result Comment: [place] om Glucose Reference Range is dependent on time and content of last meal. Glucose of more than 200 mg/dL in a nonstressed, ambulatory subject supports the diagnosis of Diabetes Mellitus. PERFORMED BY: [place] [address] PATHOLOGIST PICTURE PAINTER DANII HAYNES M.D. Performed By: #### G LULS #### Point of Care testing , Glucose [Mass/Vol] 123 mg/dL Normal [facility] Comment on above: Result Comment: [place] om Glucose Reference Range is dependent on time and content of last meal. Glucose of more than 200 mg/dL in a nonstressed, ambulatory subject supports the diagnosis of Diabetes Mellitus. PERFORMED BY: [place] [address] PATHOLOGIST PICTURE PAINTER DANII HAYNES M.D. Performed By: #### G LULS #### Point of Care testing , Lipid Panelon 08-01-2022 Cholesterol [Mass/Vol] 105 mg/dL Low 140-200 [facility] Comment on above: Result Comment: Chol less than 200 mg/dl low risk Chol 201-239 mg/dl borderline risk Chol 240 mg/dl and greater high risk Performed By: #### G LULS #### Point of Care testing , Cholesterol in HDL [Mass/Vol] 32 mg/dL Low 35-85 [facility] Comment on above: Result Comment: HDL CHOL ATP-III CLASSIFICATION Cardiovascular Risk HDL > or equal to 60 mg/dL LOW HDL < 40 mg/dL HIGH Performed By: #### G LULS #### Point of Care testing , Cholesterol.total/Chol esterol in HDL [Mass ratio] 3.3 {ratio} Normal <5.0 [facility] Comment on above: Result Comment: PERF ORMED BY: [facility] [address] [place] [address] PATHOLOGIST PICTURE PAINTER DANII HAYNES M.D. Performed By: #### G LULS #### Point of Care testing , LDL Cholesterol,Calculated 45 mg/dL Normal 0-100 [facility] Comment on above: Result Comment: LDL ATP III CLASSIFICATION LDL less than 100 mg/dL Optimal LDL 100-129 mg/dL Near or above optimal LDL 130-159 mg/dL Borderline high LDL 160-189 mg/dL High LDL greater than 189 mg/dL Very high Performed By: #### G LULS #### Point of Care testing , Triglyceride w/Reflex 140 mg/dL Normal 0-149 [facility] Comment on above: Result Comment: TRIG ATP III CLASSIFICATION TRIG less than 150 mg/dL Normal TRIG 150-199 mg/dL Borderline high TRIG 200-500 mg/dL High TRIG greater than 500 mg/dL Very high Standard traceable to the Center for Disease Conrtrol and Prevention (CDC) test method. Performed By: #### G LULS #### Point of Care testing , VLDL CHOLESTEROL 28 mg/dL Normal [facility] Comment on above: Performed By: #### G LULS #### Point of Care testing , Troponin I High Sensitivityo n 08-01-2022 Troponin I High Sensitivity 11.3 pg/mL Normal 0.0-15.0 [facility] Comment on above: Result Comment: PERF ORMED BY: [facility] [address] [place] [address] PATHOLOGIST PICTURE PAINTER DANII HAYNES M.D. Performed By: #### G LULS #### Point of Care testing , Activated partial thrombopla stin time (aPTT) in platelet poor plasma by coagulation aOrdered By: Malcolm Moss on 07-31-2022 aPTT Coag (PPP) [Time] 28.0 s 25.1-36.5 [facility] Alanine aminotransferase [En zymatic activity/volume] in Serum or PlasmaOrdered By: Malcolm Moss on 07-31-2022 ALT [Catalytic activity/Vol] 24 U/L Normal 7-52 [facility] Comment on above: Performed By: #### G LULS #### Point of Care testing , Albumin [Mass/volume] in Ser um or Plasma by Bromocresol green (BCG) dye binding methoOrdered By: Malcolm Moss on 07-31-2022 Albumin BCG dye [Mass/Vol] 3.6 g/dL 3.5-5.7 [facility] Alkaline phosphatase [Enzyma tic activity/volume] in Serum or PlasmaOrdered By: Malcolm Moss on 07-31-2022 ALP [Catalytic activity/Vol] 124 U/L High 34-104 [facility] Comment on above: Performed By: #### G LULS #### Point of Care testing , Aspartate aminotransferase [ Enzymatic activity/volume] in Serum or PlasmaOrdered By: Malcolm Moss on 07-31-2022 AST [Catalytic activity/Vol] 22 U/L Normal 13-39 [facility] Comment on above: Performed By: #### G LULS #### Point of Care testing , Automated erythrocytes count in urine sediment (number/area)Ordered By: Malcolm Moss on 07-31-2022 RBC Auto (Urine sed) [#/Area] 50-100 [HPF] 0-4 [facility] Automated leukocytes count i n urine sediment (number/area)Ordered By: Malcolm Moss on 07-31-2022 WBC Auto (Urine sed) [#/Area] Innumerable [HPF] 0-4 [facility] Automated urine hyaline cast s count (number/volume)Ordered By: Malcolm Moss on 07-31-2022 Hyaline casts Auto (U) [#/Vol] 5-9 [LPF] 0-1 [facility] B-Type Natriuretic Peptideon 07-31-2022 Natriuretic peptide B (Bld) [Mass/Vol] 57.0 pg/mL Normal 5-100 [facility] Comment on above: Result Comment: PERF ORMED BY: [facility] [address] [place] [address] PATHOLOGIST PICTURE PAINTER DANII HAYNES M.D. Performed By: #### G LULS #### Point of Care testing , Basic Metabolic Panelon Creatinine Clr Calc Pharmacy 14.63 Normal [facility] Comment on above: Performed By: #### G LULS #### Point of Care testing , GFR/1.73 sq M.predicted MDRD (S/P/Bld) [Vol rate/Area] 10.913 mL/min/{1.73_m2} Normal [facility] Comment on above: Performed By: #### G LULS #### Point of Care testing , Basophils Auto (Bld) [#/Vol] Ordered By: Malcolm Moss on 07-31-2022 Basophils (Bld) [#/Vol] 0.1 10*3/uL 0.0-0.2 [facility] Basophils/100 WBC Auto (Bld) Ordered By: Malcolm Moss on 07-31-2022 Basophils/100 WBC (Bld) 0.4 % . [facility] Bilirubin Auto test strip Ql (U)Ordered By: Malcolm Moss on 07-31-2022 Bilirubin Ql (U) Negative Negative [facility] Bilirubin.direct [Mass/volum e] in Serum or PlasmaOrdered By: Malcolm Moss on 07-31-2022 Bilirubin.direct [Mass/Vol] 0.10 mg/dL 0.03-0.18 [facility] Bilirubin.total [Mass/volume ] in Serum or PlasmaOrdered By: Malcolm Moss on 07-31-2022 Bilirubin [Mass/Vol] 0.6 mg/dL Normal 0.3-1.0 [facility] Comment on above: Performed By: #### G LULS #### Point of Care testing , CBC AUTO DIFFon 07-31-2022 BASO # 0.1 103/ul Normal 0.0-0.1 [facility] Comment on above: Performed By: #### U SUNITA, MG, RENAL #### [facility] [address] [place] [address] [address] Silver Harrison Basophils/100 WBC (Bld) 0.6 % Normal 0.2-2.0 [facility] Comment on above: Performed By: #### U SUNITA, MG, RENAL #### [facility] [address] [place] [address] [address] Silver Harrison EO # 0.3 103/ul Normal 0.0-0.7 [facility] Comment on above: Performed By: #### U SUNITA, MG, RENAL #### [facility] [address] [place] [address] Dr. Silver Harrison Eosinophils/100 WBC (Bld) 2.4 % Normal 0.9-7.0 [facility] Comment on above: Performed By: #### U SUNITA, MG, RENAL #### [facility] [address] [place] [address] Dr. Silver Harrison Erythrocyte distribution width (RBC) [Ratio] 14.1 % Normal 11.0-15.0 [facility] Comment on above: Performed By: #### U SUNITA, MG, RENAL #### [facility] [address] [place] [address] Dr. Silver Harrison Hematocrit (Bld) [Volume fraction] 33.7 % Critically low 36.0-48.0 [facility] Comment on above: Performed By: #### U SUNITA, MG, RENAL #### [facility] [address] [place] [address] Dr. Silver Harrison Hemoglobin (Bld) [Mass/Vol] 10.1 g/dL Critically low 12.0-16.0 [facility] Comment on above: Performed By: #### U SUNITA, MG, RENAL #### [facility] [address] [place] [address] Dr. Silver Harrison IG # 0.07 10e3/ul Critically high 0.00-0.03 [facility] Comment on above: Performed By: #### U SUNITA, MG, RENAL #### [facility] [address] [place] [address] Dr. Silver Harrison IG % 0.6 % Critically high 0.0-0.5 [facility] Comment on above: Performed By: #### U SUNITA, MG, RENAL #### [facility] [address] [place] [address] Dr. Silver Harrison LYMPH # 2.4 103/ul Normal 1.2-3.8 [facility] Comment on above: Performed By: #### U SUNITA, MG, RENAL #### [facility] [address] [place] [address] Dr. Silver Harrison Lymphocytes/100 WBC (Bld) 21.6 % Normal 20.5-60.0 [facility] Comment on above: Performed By: #### U SUNITA, MG, RENAL #### [facility] [address] [place] [address] Dr. Silver Harrison MANUAL DIFF REQ NO Normal [facility] Comment on above: Performed By: #### U SUNITA, MG, RENAL #### [facility] [address] [place] [address] Dr. Silver Harrison MCH (RBC) [Entitic mass] 28.6 pg Normal 26.7-34.0 [facility] Comment on above: Performed By: #### U SUNITA, MG, RENAL #### [facility] [address] [place] [address] Dr. Silver Harrison MCHC (RBC) [Mass/Vol] 30.0 g/dL Normal 29.9-35.2 [facility] Comment on above: Performed By: #### U SUNITA, MG, RENAL #### [facility] [address] [place] [address] Dr. Silver Harrison MCV (RBC) [Entitic vol] 95.5 fL Normal 81.0-99.0 [facility] Comment on above: Performed By: #### U SUNITA, MG, RENAL #### [facility] [address] [place] [address] Dr. Silver Harrison MONO # 0.8 103/ul Normal 0.3-0.8 [facility] Comment on above: Performed By: #### U SUNITA, MG, RENAL #### [facility] [address] [place] [address] Dr. Silver Harrison Monocytes/100 WBC (Bld) 7.1 % Normal 1.7-12.0 [facility] Comment on above: Performed By: #### U SUNITA, MG, RENAL #### [facility] [address] [address] [address] Silver Harrison NEUT # 7.4 103/ul Critically high 1.4-6.5 [facility] Comment on above: Performed By: #### U SUNITA, MG, RENAL #### [facility] [address] [address] [address] Silver Harrison Neutrophils/100 WBC (Bld) 67.7 % Normal 43.0-75.0 [facility] Comment on above: Performed By: #### U SUNITA, MG, RENAL #### [facility] [address] [address] [address] Silver Harrison Platelet mean volume (Bld) [Entitic vol] 10.2 fL Normal 9.5-13.5 [facility] Comment on above: Performed By: #### U SUNITA, MG, RENAL #### [facility] [address] [address] [address] Silver Harrison PLT 130 103/ul Critically low 150-450 [facility] Comment on above: Performed By: #### U SUNITA, MG, RENAL #### [facility] [address] [address] [address] Silver Harrison RBC 3.53 106/ul Critically low 4.20-5.40 [facility] Comment on above: Performed By: #### U SUNITA, MG, RENAL #### [facility] [address] [address] [address] Silver Harrison WBC 10.9 103/ul Normal 4.0-11.0 [facility] Comment on above: Performed By: #### U SUNITA, MG, RENAL #### [facility] [address] [address] [address] Silver Harrison Calcium [Mass/volume] in Ser um or PlasmaOrdered By: Malcolm Moss on 07-31-2022 Calcium [Mass/Vol] 8.3 mg/dL Low 8.6-10.3 [facility] Comment on above: Performed By: #### G LULS #### Point of Care testing , Carbon dioxide, total [Moles /volume] in Serum or PlasmaOrdered By: Malcolm Moss on 07-31-2022 CO2 [Moles/Vol] 24.3 mmol/L Normal 21.0-31.0 [facility] Comment on above: Performed By: #### G LULS #### Point of Care testing , Casts typing in urine sedime nt by light microscopyOrdered By: Malcolm Moss on 07-31-2022 Casts LM Nom (Urine sed) N/A [facility] Chloride [Moles/volume] in S alida or PlasmaOrdered By: Malcolm Moss on 07-31-2022 Chloride [Moles/Vol] 98 mmol/L Normal 98-107 [facility] Comment on above: Performed By: #### G LULS #### Point of Care testing , Complete Blood Count Auto Di ffon 07-31-2022 Basophils (Bld) [#/Vol] 0.1 10*3/uL Normal 0.0-0.2 [facility] Comment on above: Result Comment: PERF ORMED BY: [facility] [address] [place] [address] PATHOLOGIST PICTURE PAINTER DANII HAYNES M.D. Performed By: #### G LULS #### Point of Care testing , Basophils/100 WBC (Bld) 0.4 % Normal . [facility] Comment on above: Performed By: #### G LULS #### Point of Care testing , Eosinophils (Bld) [#/Vol] 0.1 10*3/uL Normal 0.0-0.45 [facility] Comment on above: Performed By: #### G LULS #### Point of Care testing , Eosinophils/100 WBC (Bld) 0.5 % Normal . [facility] Comment on above: Performed By: #### G LULS #### Point of Care testing , Erythrocyte distribution width (RBC) [Ratio] 15.0 % Normal 11.9-15.3 [facility] Comment on above: Performed By: #### G LULS #### Point of Care testing , Hematocrit (Bld) [Volume fraction] 31.6 % Low 34.0-46.4 [facility] Comment on above: Performed By: #### G MARLOLS #### Point of Care testing , Hemoglobin (Bld) [Mass/Vol] 9.9 g/dL Low 11.8-15.4 [facility] Comment on above: Performed By: #### G MARLOLS #### Point of Care testing , Lymphocytes (Bld) [#/Vol] 1.3 10*3/uL Normal 1.00-4.8 [facility] Comment on above: Performed By: #### G MARLOLS #### Point of Care testing , Lymphocytes/100 WBC (Bld) 4.8 % Normal . [facility] Comment on above: Performed By: #### G MARLOLS #### Point of Care testing , MCH (RBC) [Entitic mass] 28.8 pg Normal 24.7-34.3 [facility] Comment on above: Performed By: #### G MARLOLS #### Point of Care testing , MCV (RBC) [Entitic vol] 91.7 fL Normal 80-100 [facility] Comment on above: Performed By: #### G CAPRICE #### Point of Care testing , Mean Corpuscular HGB Conc 31.4 g/dL Low 32.0-35.0 [facility] Comment on above: Performed By: #### G MARLOLS #### Point of Care testing , Monocytes (Bld) [#/Vol] 1.4 10*3/uL High 0.0-0.8 [facility] Comment on above: Performed By: #### G MARLOLS #### Point of Care testing , Monocytes/100 WBC (Bld) 20.48 % High 0.00-20.00 [facility] Comment on above: Result Comment: For adults in ED, MDW > 20.0 may be associated with a higher risk of sepsis during the first 12 hrs of hospital admission Performed By: #### G MARLOLS #### Point of Care testing , Monocytes/100 WBC (Bld) 5.1 % Normal . [facility] Comment on above: Performed By: #### G MARLOLS #### Point of Care testing , Neutrophils (Bld) [#/Vol] 24.2 10*3/uL High 1.8-7.7 [facility] Comment on above: Performed By: #### G CAPRICE #### Point of Care testing , Neutrophils/100 WBC (Bld) 89.2 % Normal . [facility] Comment on above: Performed By: #### G MARLOLS #### Point of Care testing , NRBC% 0.1 /100{WBC} Normal 0-0.5 [facility] Comment on above: Performed By: #### G MARLOLS #### Point of Care testing , Platelet mean volume (Bld) [Entitic vol] 8.4 fL Normal 6.3-10.7 [facility] Comment on above: Performed By: #### G MARLOLS #### Point of Care testing , Platelets (Bld) [#/Vol] 155 10*3/uL Normal 150-450 [facility] Comment on above: Performed By: #### G MARLOLS #### Point of Care testing , RBC (Bld) [#/Vol] 3.45 10*6/uL Low 3.60-5.00 [facility] Comment on above: Performed By: #### G CAPRICE #### Point of Care testing , WBC (Bld) [#/Vol] 27.0 10*3/uL High 3.8-11.6 [facility] Comment on above: Performed By: #### G CAPRICE #### Point of Care testing , Creatine Kinaseon 07-31-2022 Creatine Kinase Normal [facility] Comment on above: Result Comment: Spec imen hemolyzed, redraw requested Performed By: #### G CAPRICE #### Point of Care testing , Creatine kinase [Enzymatic a ctivity/volume] in Serum or PlasmaOrdered By: Malcolm Moss on 07-31-2022 CK [Catalytic activity/Vol] 70 U/L [facility] Creatinine [Mass/volume] in Serum or PlasmaOrdered By: Malcolm Moss on 07-31-2022 Creatinine [Mass/Vol] 4.13 mg/dL High 0.60-1.20 [facility] Comment on above: Performed By: #### G LULS #### Point of Care testing , Dipstick and Microscopicon 0 07-31-2022 Bacteria,Urine 3+ High None Seen [facility] Comment on above: Order Comment: Name Collection Type:: Straight Catheter Performed By: #### G LULS #### Point of Care testing , Bilirubin,Urine Negative Normal Negative [facility] Comment on above: Order Comment: Name Collection Type:: Straight Catheter Performed By: #### G LULS #### Point of Care testing , Glucose Ql (U) Normal Normal Normal [facility] Comment on above: Order Comment: Name Collection Type:: Straight Catheter Performed By: #### G LULS #### Point of Care testing , Hyaline Casts,Urine 5-9 High 0-1 [facility] Comment on above: Order Comment: Name Collection Type:: Straight Catheter Result Comment: PERF ORMED BY: [address] [place] [address] PATHOLOGIST PICTURE PAINTER DANII HAYNES M.D. Performed By: #### G LULS #### Point of Care testing , Ketones Ql (U) Negative Normal Negative [facility] Comment on above: Order Comment: Name Collection Type:: Straight Catheter Performed By: #### G LULS #### Point of Care testing , Leukocyte esterase Test strip Ql (U) 4+ High Negative [facility] Comment on above: Order Comment: Name Collection Type:: Straight Catheter Performed By: #### G LULS #### Point of Care testing , Nitrite,Urine Negative Normal Negative [facility] Comment on above: Order Comment: Name Collection Type:: Straight Catheter Performed By: #### G LULS #### Point of Care testing , Occult Blood,Urine 3+ High Negative [facility] Comment on above: Order Comment: Name Collection Type:: Straight Catheter Result Comment: PERF ORMED BY: [facility] [address] [place] [address] PATHOLOGIST PICTURE PAINTER DANII HAYNES M.D. Performed By: #### G LULS #### Point of Care testing , Protein,Urine >=300 High Negative [facility] Comment on above: Order Comment: Name Collection Type:: Straight Catheter Performed By: #### G LULS #### Point of Care testing , RBC,Urine 50-100 High 0-4 [facility] Comment on above: Order Comment: Name Collection Type:: Straight Catheter Performed By: #### G LULS #### Point of Care testing , Specificy [place],Urine 1.020 Normal 1.001-1.03 0 [facility] Comment on above: Order Comment: Name Collection Type:: Straight Catheter Performed By: #### G LULS #### Point of Care testing , Squamous Epithelial Cell,Urine 10-19 High 0-2 [facility] Comment on above: Order Comment: Name Collection Type:: Straight Catheter Performed By: #### G LULS #### Point of Care testing , Urobilinogen,Urine Normal Normal Normal [facility] Comment on above: Order Comment: Name Collection Type:: Straight Catheter Performed By: #### G LULS #### Point of Care testing , WBC,Urine Innumerable High 0-4 [facility] Comment on above: Order Comment: Name Collection Type:: Straight Catheter Performed By: #### G LULS #### Point of Care testing , ECG 12 lead ECGon 07-31-2022 ECG 12 lead ECG [facility] [place] [address] Electrocardiograph Report Signed Patient: Amparo Castorena MR#: [id number] : 1950 Acct:[id number] Age/Sex: 71 / F ADM Date: 07/31/22 Loc: ER Room: Type: [facility] ER Attending Dr: Ordering Provider: Malcolm Moss [...] Prolonged QT Confirmed by Piyush Bell DO ([id number]) on 07/31/2022 4:05:21 PM Referred By: Electronically Signed By:Piyush Bell DO Transcribed By: MUS Signed By Piyush Bell DO [id number] Normal [facility] Eosinophils Auto (Bld) [#/Vo l]Ordered By: Malcolm Moss on 07-31-2022 Eosinophils (Bld) [#/Vol] 0.1 10*3/uL 0.0-0.45 [facility] Eosinophils/100 WBC Auto (Bl d)Ordered By: Malcolm Moss on 07-31-2022 Eosinophils/100 WBC (Bld) 0.5 % . [facility] Erythrocyte distribution wid th Auto (RBC) [Ratio]Ordered By: Malcolm Moss on 07-31-2022 Erythrocyte distribution width (RBC) [Ratio] 15.0 % 11.9-15.3 [facility] Glucose [Mass/volume] in Ser um or PlasmaOrdered By: Malcolm Moss on 07-31-2022 Glucose [Mass/Vol] 183 mg/dL High 70-100 [facility] Comment on above: ADA recommended refe rence rangeRandom Glucose Reference Range is dependent on time and content of last meal. Glucose of more than 200 mg/dL in a nonstressed, ambulatory subject supports the diagnosis of Diabetes Mellitus. Result Comment: [place] om Glucose Reference Range is dependent on time and content of last meal. Glucose of more than 200 mg/dL in a nonstressed, ambulatory subject supports the diagnosis of Diabetes Mellitus. ADA recommended reference range Performed By: #### G LULS #### Point of Care testing , Hematocrit Auto (Bld) [Volum e fraction]Ordered By: Malcolm Moss on 07-31-2022 Hematocrit (Bld) [Volume fraction] 31.6 % 34.0-46.4 [facility] Hemoglobin [Mass/volume] in BloodOrdered By: Malcolm Moss on 07-31-2022 Hemoglobin (Bld) [Mass/Vol] 9.9 g/dL 11.8-15.4 [facility] Hepatic Panelon 07-31-2022 Albumin [Mass/Vol] 3.6 g/dL Normal 3.5-5.7 [facility] Comment on above: Performed By: #### G LULS #### Point of Care testing , Bilirubin,Indirect 0.5 mg/dL Normal [facility] Comment on above: Performed By: #### G LULS #### Point of Care testing , Bilirubin.indirect [Mass/Vol] 0.10 mg/dL Normal 0.03-0.18 [facility] Comment on above: Performed By: #### G LULS #### Point of Care testing , Ketones Auto test strip (U) [Mass/Vol]Ordered By: Malcolm Moss on 07-31-2022 Ketones (U) [Mass/Vol] Negative Negative [facility] - CoagulationOrde red By: Malcolm Moss on 07-31-2022 PT Coag (PPP) [Time] 12.3 s 9.0-12.9 [facility] Leukocytes [#/volume] correc mary jo for nucleated erythrocytes in Blood by Automated counOrdered By: Malcolm Moss on 07-31-2022 WBC corrected for nucl RBC Auto (Bld) [#/Vol] 27.0 10*3/uL 3.8-11.6 [facility] Lipase [Enzymatic activity/v olume] in Serum or PlasmaOrdered By: Malcolm Moss on 07-31-2022 Lipase [Catalytic activity/Vol] 36.0 U/L Normal 11.0-82.0 [facility] Comment on above: Result Comment: PERF ORMED BY: [facility] [address] [place] [address] PATHOLOGIST PICTURE PAINTER DANII HAYNES M.D. Performed By: #### G LULS #### Point of Care testing , Lymphocytes Auto (Bld) [#/Vo l]Ordered By: Malcolm Moss on 07-31-2022 Lymphocytes (Bld) [#/Vol] 1.3 10*3/uL 1.00-4.8 [facility] Lymphocytes/100 WBC Auto (Bl d)Ordered By: Malcolm Moss on 07-31-2022 Lymphocytes/100 WBC (Bld) 4.8 % . [facility] MCH Auto (RBC) [Entitic mass ]Ordered By: Malcolm Moss on 07-31-2022 MCH (RBC) [Entitic mass] 28.8 pg 24.7-34.3 [facility] MCHC Auto (RBC) [Mass/Vol]Or dered By: Malcolm Moss on 07-31-2022 MCHC (RBC) [Mass/Vol] 31.4 g/dL 32.0-35.0 [facility] MCV Auto (RBC) [Entitic vol] Ordered By: Malcolm Moss on 07-31-2022 MCV (RBC) [Entitic vol] 91.7 fL 80-100 [facility] Monocyte distribution width [Entitic volume] in Blood by AutomatedOrdered By: Malcolm Moss on 07-31-2022 Monocyte distribution width Auto (Bld) [Entitic vol] 20.48 % 0.00-20.00 [facility] Comment on above: For adults in ED, MD W > 20.0 may be associated with a higher risk of sepsis during the first 12 hrs of hospital admission Monocytes Auto (Bld) [#/Vol] Ordered By: Malcolm Moss on 07-31-2022 Monocytes (Bld) [#/Vol] 1.4 10*3/uL 0.0-0.8 [facility] Monocytes/100 WBC Auto (Bld) Ordered By: Malcolm Moss on 07-31-2022 Monocytes/100 WBC (Bld) 5.1 % . [facility] Natriuretic peptide B [Mass/ Vol]Ordered By: Malcolm Moss on 07-31-2022 Natriuretic peptide B (Bld) [Mass/Vol] 57.0 pg/mL 5-100 [facility] Neutrophils Auto (Bld) [#/Vo l]Ordered By: Malcolm Moss on 07-31-2022 Neutrophils (Bld) [#/Vol] 24.2 10*3/uL 1.8-7.7 [facility] Neutrophils/100 WBC Auto (Bl d)Ordered By: Malcolm Moss on 07-31-2022 Neutrophils/100 WBC (Bld) 89.2 % . [facility] No Panel InformationOrdered By: Malcolm Moss on 07-31-2022 Estimated GFR (CKD-EPI) 10.913 mL/Min [facility] Creatinine Clearance (Chem 14.63 [facility] Nucleated erythrocytes [Pres ence] in Blood by Automated countOrdered By: Malcolm Moss on 07-31-2022 Nucleated RBC Auto Ql (Bld) 0.1 /100{WBC} 0-0.5 [facility] PHOSPHORUSon 07-31-2022 Phosphate [Mass/Vol] 5.3 mg/dL Critically high 2.6-4.7 [facility] Comment on above: Performed By: #### B MP #### [facility] [address] [place] [address] Dr. Silver Harrison PROF CHEM 8 (BAS METB)on Anion gap [Moles/Vol] 11.8 mmol/L Normal [facility] Comment on above: Performed By: #### B MP #### [facility] [address] [place] [address] Dr. Silver Harrison Calcium [Mass/Vol] 8.4 mg/dL Critically low 8.5-10.1 [facility] Comment on above: Performed By: #### B MP #### [facility] [address] [address] [address] Silver Harrison Chloride [Moles/Vol] 99 mmol/L Normal 98-107 [facility] Comment on above: Performed By: #### B MP #### [facility] [address] [address] [address] Silver Harrison CO2 [Moles/Vol] 27.9 mmol/L Normal 21.0-32.0 [facility] Comment on above: Performed By: #### B MP #### [facility] [address] [address] [address] Silver Harrison Creatinine [Mass/Vol] 4.81 mg/dL Critically high 0.55-1.02 [facility] Comment on above: Performed By: #### B MP #### [facility] [address] [address] [address] Silver Harrison EGFR-AF NIGERIAN 11 mL/min/1.73m2 Critically low >=60 [facility] Comment on above: Performed By: #### B MP #### [facility] [address] [place], [place] [address] Dr. Silver Harrison EGFR-NON AF NIGERIAN 9 mL/min/1.73m2 Critically low >=60 [facility] Comment on above: Performed By: #### B MP #### [facility] [address] [address] [address] Silver Harrison Glucose [Mass/Vol] 114 mg/dL Critically high 74-106 [facility] Comment on above: Performed By: #### B MP #### [facility] [address] [address] [address] Silver Harrison Potassium [Moles/Vol] 3.7 mmol/L Normal 3.5-5.1 [facility] Comment on above: Performed By: #### B MP #### [facility] [address] [address] [address] Silver Harrison Sodium [Moles/Vol] 135 mmol/L Critically low 136-145 [facility] Comment on above: Performed By: #### B MP #### [facility] [address] [address] [address] Silver Harrison Urea nitrogen [Mass/Vol] 33.0 mg/dL Critically high 7.0-18.0 [facility] Comment on above: Performed By: #### B MP #### [facility] [address] [address] [address] Silver Harrison Urea nitrogen/Creatinine [Mass ratio] 6.9 mg/mg Normal [facility] Comment on above: Performed By: #### B MP #### [facility] [address] [address] [address] Silver Harrison Partial Thromboplastin Timeo n 07-31-2022 aPTT Coag (Bld) [Time] 28.0 s Normal 25.1-36.5 [facility] Comment on above: Result Comment: PERF ORMED BY: [facility] [address] [place] [address] PATHOLOGIST PICTURE PAINTER DANII HAYNES M.D. Performed By: #### G LUMAMIE #### Point of Care testing , Platelet mean volume Auto (B ld) [Entitic vol]Ordered By: Malcolm Moss on 07-31-2022 Platelet mean volume (Bld) [Entitic vol] 8.4 fL 6.3-10.7 [facility] Platelet poor plasma interna tional normalized ratio (INR) by coagulation assay (relatOrdered By: Malcolm Moss on 07-31-2022 INR Coag (PPP) [Relative time] 1.1 {INR} [facility] Comment on above: INR Therapeutic Rang [...] 07-31-2022 Platelets (Bld) [#/Vol] 155 10*3/uL 150-450 [facility] Potassium [Moles/volume] in Serum or PlasmaOrdered By: Malcolm Moss on 07-31-2022 Potassium [Moles/Vol] 4.3 mmol/L Normal 3.5-5.1 [facility] Comment on above: Performed By: #### G LULS #### Point of Care testing , Protein Auto test strip (U) [Mass/Vol]Ordered By: Malcolm Moss on 07-31-2022 Protein (U) [Mass/Vol] mg/dL Negative [facility] Protein [Mass/volume] in Ser um or PlasmaOrdered By: Malcolm Moss on 07-31-2022 Protein [Mass/Vol] 8.1 g/dL Normal 6.4-8.9 [facility] Comment on above: Performed By: #### G LULS #### Point of Care testing , Prothrombin Time INRon 07-31 INR Coag (PPP) [Relative time] 1.1 {INR} Normal [facility] Comment on above: Result Comment: INR [...] 3 - 4.5 Performed By: #### G MARLOLS #### Point of Care testing , PT Coag (PPP) [Time] 12.3 s Normal 9.0-12.9 [facility] Comment on above: Performed By: #### G LULS #### Point of Care testing , RBC Auto (Bld) [#/Vol]Ordere d By: Malcolm Moss on 07-31-2022 RBC (Bld) [#/Vol] 3.45 10*6/uL 3.60-5.00 [facility] Redraw CKon 07-31-2022 CK [Catalytic activity/Vol] 70 U/L Normal 30-223 [facility] Comment on above: Result Comment: PERF ORMED BY: [facility] [address] [place] [address] PATHOLOGIST PICTURE PAINTER DANII HAYNES M.D. Performed By: #### G MARLOLS #### Point of Care testing , Serum globulin measurement b y calculation (mass/volume)Ordered By: Malcolm Moss on 07-31-2022 Globulin (S) [Mass/Vol] 4.5 g/dL Normal [facility] Comment on above: Performed By: #### G MARLOLS #### Point of Care testing , Serum or plasma albumin/glob ulin mass ratioOrdered By: Malcolm Moss on 07-31-2022 Albumin/Globulin [Mass ratio] 0.8 {ratio} [facility] Comment on above: Performed By: #### G MARLOLS #### Point of Care testing , Serum or plasma anion gap de terminationOrdered By: Malcolm Moss on 07-31-2022 Anion gap [Moles/Vol] 16.0 mmol/L High 6.0-15.0 [facility] Comment on above: Performed By: #### G MARLOLS #### Point of Care testing , Serum or plasma non-glucuron idated bilirubin measurement (mass/volume)Ordered By: Malcolm Moss on 07-31-2022 Bilirubin.indirect [Mass/Vol] 0.5 mg/dL [facility] Sodium [Moles/volume] in Ser um or PlasmaOrdered By: Malcolm Moss on 07-31-2022 Sodium [Moles/Vol] 134 mmol/L Low 136-145 [facility] Comment on above: Performed By: #### G LULS #### Point of Care testing , Squamous epithelial cells de tection in urine sediment by light microscopyOrdered By: Malcolm Moss on 07-31-2022 Epithelial cells.squamous LM Ql (Urine sed) 10-19 [HPF] 0-2 [facility] Troponin I High Sensitivityo n 07-31-2022 Troponin I High Sensitivity 7.7 pg/mL Normal 0.0-15.0 [facility] Comment on above: Result Comment: PERF ORMED BY: [facility] [address] [place] [address] PATHOLOGIST PICTURE PAINTER DANII HAYNES M.D. Performed By: #### G LULS #### Point of Care testing , Troponin I.cardiac [Mass/vol ume] in Serum or Plasma by Detection limit <= 0.01 ng/Ordered By: Malcolm Moss on 07-31-2022 Troponin I.cardiac DL <= 0.01 ng/mL [Mass/Vol] 7.7 pg/mL 0.0-15.0 [facility] Urea nitrogen [Mass/volume] in Serum or PlasmaOrdered By: Malcolm Moss on 07-31-2022 Urea nitrogen [Mass/Vol] 26 mg/dL High 7-25 [facility] Comment on above: Performed By: #### G LULS #### Point of Care testing , Urine Cultureon 07-31-2022 Bacteria identified Cx Nom (U) ORGANISM: Escherichia coli (O:ESCCOL) Erhard Count >100,000 Aerobic MARIANNE Charge (NMIC56) SUSCEPTIBILITY [...] RESISTANT TO ALL B-LACTAM DRUGS. PERFORMED BY: [address] [place] [address] PATHOLOGIST PICTURE PAINTER DANII HAYNES M.D. Normal [facility] Comment on above: Performed By: #### G LULS #### Point of Care testing , Urine appearanceOrdered By: Malcolm Moss on 07-31-2022 Appearance (U) Cloudy Critically abnormal Clear [facility] Comment on above: Order Comment: Name Collection Type:: Straight Catheter Performed By: #### G LULS #### Point of Care testing , Urine bacteria detection by automated methodOrdered By: Malcolm Moss on 07-31-2022 Bacteria Auto Ql (U) 3+ None Seen [facility] Urine colorOrdered By: Laura Moss on 07-31-2022 Color (U) Yellow Normal Yellow [facility] Comment on above: Order Comment: Name Collection Type:: Straight Catheter Performed By: #### G LULS #### Point of Care testing , Urine glucose measurement by automated test strip (mass/volume)Ordered By: Malcolm Moss on 07-31-2022 Glucose Auto test strip (U) [Mass/Vol] Normal mg/dL Normal [facility] Urine hemoglobin detection b y automated test stripOrdered By: Malcolm Moss on 07-31-2022 Hemoglobin Auto test strip Ql (U) 3+ Negative [facility] Urine leukocyte esterase det ection by automated test stripOrdered By: Malcolm Moss on 07-31-2022 Leukocyte esterase Auto test strip Ql (U) 4+ Negative [facility] Urine nitrite detection by a utomated test stripOrdered By: Malcolm Moss on 07-31-2022 Nitrite Auto test strip Ql (U) Negative Negative [facility] Urine pH measurement by auto mated test stripOrdered By: Malcolm Moss on 07-31-2022 pH (U) 6.0 [pH] Normal 5.0-9.0 [facility] Comment on above: Order Comment: Name Collection Type:: Straight Catheter Performed By: #### G LULS #### Point of Care testing , Urobilinogen Auto test strip (U) [Mass/Vol]Ordered By: Malcolm Moss on 07-31-2022 Urobilinogen (U) [Mass/Vol] Normal mg/dL Normal [facility] WBC Auto (Bld) [#/Vol]Ordere d By: Malcolm Moss on 07-31-2022 WBC (Bld) [#/Vol] 27.0 10*3/uL 3.8-11.6 [facility] XR chest 1V portableon 07-31 XR chest 1V portable [facility] Main [place] [id number] XRay Report Signed Patient: Amparo Castorena MR#: [id number] : 1950 Acct:[id number] Age/Sex: 71 / F ADM Date: 07/31/22 Loc: ER Room: Type: [facility] ER Attending Dr: Copies to: Malcolm Moss [...] Wei Jr., DElaineOElaine07/31/2022 3:53 PM Dictation Location: [place] [address] Transcribed By: [facility] 07/31/221552 Dictated By: Dewayne Wei Jr, DO 07/31/221551 Signed By: 07/31/221552 Normal [facility] Yeast detection in urine sed iment by light microscopyOrdered By: Malcolm Moss on 07-31-2022 Yeast LM Ql (Urine sed) N/A [facility] pH Auto test strip (U)Ordere d By: Malcolm Moss on 07-31-2022 pH (U) 1.020 [pH] 1.001-1.03 0 [facility] CBC AUTO DIFFon 07-29-2022 BASO # 0.1 103/ul Normal 0.0-0.1 [facility] Comment on above: Performed By: #### U SUNITA, MG, RENAL #### [facility] [address] [address] [address] Silver Harrison Basophils/100 WBC (Bld) 0.6 % Normal 0.2-2.0 [facility] Comment on above: Performed By: #### U SUNITA, MG, RENAL #### [facility] [address] [address] [address] Silver Harrison EO # 0.1 103/ul Normal 0.0-0.7 [facility] Comment on above: Performed By: #### U SUNITA, MG, RENAL #### [facility] [address] [address] [address] Silver Harrison Eosinophils/100 WBC (Bld) 1.8 % Normal 0.9-7.0 [facility] Comment on above: Performed By: #### U SUNITA, MG, RENAL #### [facility] [address] [address] [address] Silver Harrison Erythrocyte distribution width (RBC) [Ratio] 13.2 % Normal 11.0-15.0 [facility] Comment on above: Performed By: #### U SUNITA, MG, RENAL #### [facility] [address] [place] [address] Dr. Silver Harrison Hematocrit (Bld) [Volume fraction] 45.2 % Normal 36.0-48.0 [facility] Comment on above: Performed By: #### U SUNITA, MG, RENAL #### [facility] [address] [place] [address] Dr. Silver Harrison Hemoglobin (Bld) [Mass/Vol] 15.3 g/dL Normal 12.0-16.0 [facility] Comment on above: Performed By: #### U SUNITA, MG, RENAL #### [facility] [address] [place] [address] Dr. Silver Harrison IG # 0.07 10e3/ul Critically high 0.00-0.03 [facility] Comment on above: Performed By: #### U SUNITA, MG, RENAL #### [facility] [address] [place] [address] Dr. Silver Harrison IG % 0.9 % Critically high 0.0-0.5 [facility] Comment on above: Performed By: #### U SUNITA, MG, RENAL #### [facility] [address] [place] [address] Dr. Silver Harrison LYMPH # 2.1 103/ul Normal 1.2-3.8 [facility] Comment on above: Performed By: #### U SUNITA, MG, RENAL #### [facility] [address] [place] [address] Dr. Silver Harrison Lymphocytes/100 WBC (Bld) 27.2 % Normal 20.5-60.0 [facility] Comment on above: Performed By: #### U SUNITA, MG, RENAL #### [facility] [address] [place] [address] Dr. Silver Harrison MANUAL DIFF REQ NO Normal [facility] Comment on above: Performed By: #### U SUNITA, MG, RENAL #### [facility] [address] [place] [address] Dr. Silver Harrison MCH (RBC) [Entitic mass] 31.5 pg Normal 26.7-34.0 [facility] Comment on above: Performed By: #### U SUNITA, MG, RENAL #### [facility] [address] [place] [address] Dr. Silver Harrison MCHC (RBC) [Mass/Vol] 33.8 g/dL Normal 29.9-35.2 [facility] Comment on above: Performed By: #### U SUNITA, MG, RENAL #### [facility] [address] [place] [address] Dr. Silver Harrison MCV (RBC) [Entitic vol] 93.0 fL Normal 81.0-99.0 [facility] Comment on above: Performed By: #### U SUNITA, MG, RENAL #### [facility] [address] [place] [address] Dr. Silver Harrison MONO # 0.5 103/ul Normal 0.3-0.8 [facility] Comment on above: Performed By: #### U SUNITA, MG, RENAL #### [facility] [address] [place] [address] Dr. Silver Harrison Monocytes/100 WBC (Bld) 7.0 % Normal 1.7-12.0 [facility] Comment on above: Performed By: #### U SUNITA, MG, RENAL #### [facility] [address] [place] [address] Dr. Silver Harrison NEUT # 4.8 103/ul Normal 1.4-6.5 [facility] Comment on above: Performed By: #### U SUNITA, MG, RENAL #### [facility] [address] [place] [address] Dr. Silver Harrison Neutrophils/100 WBC (Bld) 62.5 % Normal 43.0-75.0 [facility] Comment on above: Performed By: #### U SUNITA, MG, RENAL #### [facility] [address] [place] [address] Dr. Silver Harrison Platelet mean volume (Bld) [Entitic vol] 12.2 fL Normal 9.5-13.5 [facility] Comment on above: Performed By: #### U SUNITA, MG, RENAL #### [facility] [address] [place] [address] Dr. Silver Harrison PLT 156 103/ul Normal 150-450 [facility] Comment on above: Performed By: #### U SUNITA, MG, RENAL #### [facility] [address] [place] [address] Dr. Silver Harrison RBC 4.86 106/ul Normal 4.20-5.40 [facility] Comment on above: Performed By: #### U SUNITA, MG, RENAL #### [facility] [address] [place] [address] Dr. Silver Harrison WBC 7.8 103/ul Normal 4.0-11.0 [facility] Comment on above: Performed By: #### U SUNITA, MG, RENAL #### [facility] [address] [place] [address] Dr. Silver Harrison FERRITINon 07-29-2022 Ferritin [Mass/Vol] 704.0 ng/mL Critically high 8.0-252.0 [facility] Comment on above: Performed By: #### U SUNITA, MG, RENAL #### [facility] [address] [place] [address] Dr. Silver Harrison IRON AND TIBCon 07-29-2022 % SATURATION 20.2 % Normal [facility] Comment on above: Performed By: #### U SUNITA, MG, RENAL #### [facility] [address] [place] [address] Dr. Silver Harrison Iron [Mass/Vol] 47.0 ug/dL Critically low 50.0-170.0 [facility] Comment on above: Performed By: #### U SUNITA, MG, RENAL #### [facility] [address] [place] [address] Dr. Silver Harrison TIBC DIRECT 233.0 ug/dL Critically low 250.0-450. 0 [facility] Comment on above: Performed By: #### U SUNITA, MG, RENAL #### [facility] [address] [address] [address] Silver Harrison CBC AUTO DIFFon 07-24-2022 BASO # 0.1 103/ul Normal 0.0-0.1 [facility] Comment on above: Performed By: #### B MP #### [facility] [address] [address] [address] Silver Harrison Basophils/100 WBC (Bld) 0.6 % Normal 0.2-2.0 [facility] Comment on above: Performed By: #### B MP #### [facility] [address] [address] [address] Silver Harrison EO # 0.3 103/ul Normal 0.0-0.7 [facility] Comment on above: Performed By: #### B MP #### [facility] [address] [place] [address] Dr. Silver Harrison Eosinophils/100 WBC (Bld) 2.3 % Normal 0.9-7.0 [facility] Comment on above: Performed By: #### B MP #### [facility] [address] [place] [address] Dr. Silver Harrison Erythrocyte distribution width (RBC) [Ratio] 13.3 % Normal 11.0-15.0 [facility] Comment on above: Performed By: #### B MP #### [facility] [address] [place] [address] Dr. Silver Harrison Hematocrit (Bld) [Volume fraction] 28.8 % Critically low 36.0-48.0 [facility] Comment on above: Performed By: #### B MP #### [facility] [address] [place] [address] Dr. Silver Harrison Hemoglobin (Bld) [Mass/Vol] 8.8 g/dL Critically low 12.0-16.0 [facility] Comment on above: Performed By: #### B MP #### [facility] [address] [place] [address] Dr. Silver Harrison IG # 0.12 10e3/ul Critically high 0.00-0.03 [facility] Comment on above: Performed By: #### B MP #### [facility] [address] [place] [address] Dr. Silver Harrison IG % 1.1 % Critically high 0.0-0.5 [facility] Comment on above: Performed By: #### B MP #### [facility] [address] [place] [address] Dr. Silver Harrison LYMPH # 2.4 103/ul Normal 1.2-3.8 [facility] Comment on above: Performed By: #### B MP #### [facility] [address] [place] [address] Dr. Silver Harrison Lymphocytes/100 WBC (Bld) 22.0 % Normal 20.5-60.0 [facility] Comment on above: Performed By: #### B MP #### [facility] [address] [place] [address] Dr. Silver Harrison MANUAL DIFF REQ NO Normal [facility] Comment on above: Performed By: #### B MP #### [facility] [address] [place] [address] Dr. Silver Harrison MCH (RBC) [Entitic mass] 28.9 pg Normal 26.7-34.0 [facility] Comment on above: Performed By: #### B MP #### [facility] [address] [place] [address] Dr. Silver Harrison MCHC (RBC) [Mass/Vol] 30.6 g/dL Normal 29.9-35.2 [facility] Comment on above: Performed By: #### B MP #### [facility] [address] [place] [address] Dr. Silver Harrison MCV (RBC) [Entitic vol] 94.4 fL Normal 81.0-99.0 [facility] Comment on above: Performed By: #### B MP #### [facility] [address] [place] [address] Dr. Silver Harrison MONO # 0.5 103/ul Normal 0.3-0.8 [facility] Comment on above: Performed By: #### B MP #### [facility] [address] [place] [address] Dr. Silver Harrison Monocytes/100 WBC (Bld) 4.8 % Normal 1.7-12.0 [facility] Comment on above: Performed By: #### B MP #### [facility] [address] [place] [address] Dr. Silver Harrison NEUT # 7.4 103/ul Critically high 1.4-6.5 [facility] Comment on above: Performed By: #### B MP #### [facility] [address] [place] [address] Dr. Silver Harrison Neutrophils/100 WBC (Bld) 69.2 % Normal 43.0-75.0 [facility] Comment on above: Performed By: #### B MP #### [facility] [address] [place] [address] Dr. Silver Harrison Platelet mean volume (Bld) [Entitic vol] 9.8 fL Normal 9.5-13.5 [facility] Comment on above: Performed By: #### B MP #### [facility] [address] [place] [address] Dr. Silver Harrison PLT 146 103/ul Critically low 150-450 [facility] Comment on above: Performed By: #### B MP #### [facility] [address] [place] [address] Dr. Silver Harrison RBC 3.05 106/ul Critically low 4.20-5.40 [facility] Comment on above: Performed By: #### B MP #### [facility] [address] [place] [address] Dr. Silver Harrison WBC 10.7 103/ul Normal 4.0-11.0 [facility] Comment on above: Performed By: #### B MP #### [facility] [address] [place] [address] Dr. Silver Harrison PHOSPHORUSon 07-24-2022 Phosphate [Mass/Vol] 4.5 mg/dL Normal 2.6-4.7 [facility] Comment on above: Performed By: #### U SUNITA, MG, RENAL #### [facility] [address] [address] [address] Silver Harrison PROF CHEM 8 (BAS METB)on Anion gap [Moles/Vol] 13.6 mmol/L Normal [facility] Comment on above: Performed By: #### U SUNITA, MG, RENAL #### [facility] [address] [place] [address] Dr. Silver Harrison Calcium [Mass/Vol] 8.5 mg/dL Normal 8.5-10.1 [facility] Comment on above: Performed By: #### U SUNITA, MG, RENAL #### [facility] [address] [place] [address] Dr. Silver Harrison Chloride [Moles/Vol] 105 mmol/L Normal 98-107 [facility] Comment on above: Performed By: #### U SUNITA, MG, RENAL #### [facility] [address] [place] [address] Dr. Silver Harrison CO2 [Moles/Vol] 25.8 mmol/L Normal 21.0-32.0 [facility] Comment on above: Performed By: #### U SUNITA, MG, RENAL #### [facility] [address] [place] [address] Dr. Silver Harrison Creatinine [Mass/Vol] 4.02 mg/dL Critically high 0.55-1.02 [facility] Comment on above: Performed By: #### U SUNITA, MG, RENAL #### [facility] [address] [place] [address] Dr. Silver Harrison EGFR-AF NIGERIAN 13 mL/min/1.73m2 Critically low >=60 [facility] Comment on above: Performed By: #### U SUNITA, MG, RENAL #### [facility] [address] [place] [address] Dr. Silver Harrison EGFR-NON AF NIGERIAN 11 mL/min/1.73m2 Critically low >=60 [facility] Comment on above: Performed By: #### U SUNITA, MG, RENAL #### [facility] [address] [place] [address] Dr. Silver Harrison Glucose [Mass/Vol] 74 mg/dL Normal 74-106 [facility] Comment on above: Performed By: #### U SUNITA, MG, RENAL #### [facility] [address] [place] [address] Dr. Silver Harrison Potassium [Moles/Vol] 4.4 mmol/L Normal 3.5-5.1 [facility] Comment on above: Performed By: #### U SUNITA, MG, RENAL #### [facility] [address] [place] [address] Dr. Silver Harrison Sodium [Moles/Vol] 140 mmol/L Normal 136-145 [facility] Comment on above: Performed By: #### U SUNITA, MG, RENAL #### [facility] [address] [place] [address] Dr. Silver Harrison Urea nitrogen [Mass/Vol] 45.0 mg/dL Critically high 7.0-18.0 [facility] Comment on above: Performed By: #### U SUNITA, MG, RENAL #### [facility] [address] [place] [address] Dr. Silver Harrison Urea nitrogen/Creatinine [Mass ratio] 11.2 mg/mg Normal [facility] Comment on above: Performed By: #### U SUNITA, MG, RENAL #### [facility] [address] [place] [address] Dr. Silver Harrison [facility] Normal Negative [facility] Comment on above: Performed By: #### H EPACUT #### [facility] [address] [place] [address] Dr. Silver Harrison HCV AB Non-Reactive Normal Non Reactive [facility] Comment on above: Performed By: #### H EPACUT #### [facility] [address] [place] [address] Dr. Silver Harrison Hep A Ab, IgM Negative Normal Negative [facility] Comment on above: Performed By: #### H EPACUT #### [facility] [address] [place] [address] Dr. Silver Harrison Hep B Core Ab, IgM Negative Normal Negative [facility] Comment on above: Performed By: #### H EPACUT #### [facility] [address] [place] [address] Dr. Silver Harrison Interpretation: Comment Normal [facility] Comment on above: Result Comment: Not infected with HCV unless early or acute infection is suspected (which may be delayed in an immunocompromised individual), or other evidence exists to indicate HCV infection. Performed By: #### H EPACUT #### [facility] [address] [place] [address] Dr. Silver Harrison PTH INTACTon 07-21-2022 PTH, Intact 164 pg/mL Critically high 15-65 [facility] Comment on above: Performed By: #### U SUNITA, MG, RENAL #### [facility] [address] [place] [address] Dr. Silver Harrison CBC AUTO DIFFon 07-20-2022 BASO # 0.0 103/ul Normal 0.0-0.1 [facility] Comment on above: Performed By: #### C BC #### [facility] [address] [place] [address] Dr. Silver Harrison Basophils/100 WBC (Bld) 0.3 % Normal 0.2-2.0 [facility] Comment on above: Performed By: #### C BC #### [facility] [address] [place] [address] Dr. Silver Harrison EO # 0.2 103/ul Normal 0.0-0.7 [facility] Comment on above: Performed By: #### C BC #### [facility] [address] [place] [address] Dr. Silver Harrison Eosinophils/100 WBC (Bld) 2.5 % Normal 0.9-7.0 [facility] Comment on above: Performed By: #### C BC #### [facility] [address] [place] [address] Dr. Silver Harrison Erythrocyte distribution width (RBC) [Ratio] 13.2 % Normal 11.0-15.0 [facility] Comment on above: Performed By: #### C BC #### [facility] [address] [place] [address] Dr. Silver Harrison Hematocrit (Bld) [Volume fraction] 28.7 % Critically low 36.0-48.0 [facility] Comment on above: Performed By: #### C BC #### [facility] [address] [place] [address] Dr. Silver Harrison Hemoglobin (Bld) [Mass/Vol] 8.6 g/dL Critically low 12.0-16.0 [facility] Comment on above: Performed By: #### C BC #### [facility] [address] [place] [address] Dr. Silver Harrison IG # 0.05 10e3/ul Critically high 0.00-0.03 [facility] Comment on above: Performed By: #### C BC #### [facility] [address] [place] [address] Dr. Silver Harrison IG % 0.5 % Normal 0.0-0.5 [facility] Comment on above: Performed By: #### C BC #### [facility] [address] [place] [address] Dr. Silver Harrison LYMPH # 1.9 103/ul Normal 1.2-3.8 [facility] Comment on above: Performed By: #### C BC #### [facility] [address] [place] [address] Dr. Silver Harrison Lymphocytes/100 WBC (Bld) 20.3 % Critically low 20.5-60.0 [facility] Comment on above: Performed By: #### C BC #### [facility] [address] [place] [address] Dr. Silver Harrison MANUAL DIFF REQ NO Normal [facility] Comment on above: Performed By: #### C BC #### [facility] [address] [place] [address] Dr. Silver Harrison MCH (RBC) [Entitic mass] 28.9 pg Normal 26.7-34.0 [facility] Comment on above: Performed By: #### C BC #### [facility] [address] [place] [address] Dr. Silver Harrison MCHC (RBC) [Mass/Vol] 30.0 g/dL Normal 29.9-35.2 [facility] Comment on above: Performed By: #### C BC #### [facility] [address] [place] [address] Dr. Silver Harrison MCV (RBC) [Entitic vol] 96.3 fL Normal 81.0-99.0 [facility] Comment on above: Performed By: #### C BC #### [facility] [address] [place] [address] Dr. Silver Harrison MONO # 0.6 103/ul Normal 0.3-0.8 [facility] Comment on above: Performed By: #### C BC #### [facility] [address] [place] [address] Dr. Silver Harrison Monocytes/100 WBC (Bld) 6.1 % Normal 1.7-12.0 [facility] Comment on above: Performed By: #### C BC #### [facility] [address] [place] [address] Dr. Silver Harrison NEUT # 6.5 103/ul Normal 1.4-6.5 [facility] Comment on above: Performed By: #### C BC #### [facility] [address] [place] [address] Dr. Silver Harrison Neutrophils/100 WBC (Bld) 70.3 % Normal 43.0-75.0 [facility] Comment on above: Performed By: #### C BC #### [facility] [address] [place] [address] Dr. Silver Harrison Platelet mean volume (Bld) [Entitic vol] 9.8 fL Normal 9.5-13.5 [facility] Comment on above: Performed By: #### C BC #### [facility] [address] [place] [address] Dr. Silver Harrison PLT 171 103/ul Normal 150-450 [facility] Comment on above: Performed By: #### C BC #### [facility] [address] [place] [address] Dr. Silver Harrison RBC 2.98 106/ul Critically low 4.20-5.40 [facility] Comment on above: Performed By: #### C BC #### [facility] [address] [address] [address] Silver Harrison WBC 9.3 103/ul Normal 4.0-11.0 [facility] Comment on above: Performed By: #### C BC #### [facility] [address] [place] [address] Dr. Silver Harrison FERRITINon 07-20-2022 Ferritin [Mass/Vol] 381.0 ng/mL Critically high 8.0-252.0 [facility] Comment on above: Performed By: #### B MP #### [facility] [address] [place] [address] Dr. Silver Harrison IRON AND TIBCon 07-20-2022 % SATURATION 14.6 % Normal [facility] Comment on above: Performed By: #### B MP #### [facility] [address] [place] [address] Dr. Silver Harrison Iron [Mass/Vol] 30.0 ug/dL Critically low 50.0-170.0 [facility] Comment on above: Performed By: #### B MP #### [facility] [address] [place] [address] Dr. Silver Harrison TIBC DIRECT 206.0 ug/dL Critically low 250.0-450. 0 [facility] Comment on above: Performed By: #### B MP #### [facility] [address] [place] [address] Dr. Silver Harrison PROF 14(COMP METB)on 023 Albumin [Mass/Vol] 2.8 g/dL Critically low 3.4-5.0 [facility] Comment on above: Performed By: #### B MP #### [facility] [address] [place] [address] Dr. Silver Harrison Albumin/Globulin [Mass ratio] 0.5 {ratio} Normal [facility] Comment on above: Performed By: #### B MP #### [facility] [address] [place] [address] Dr. Silver Harrison ALP [Catalytic activity/Vol] 145 U/L Critically high 46-116 [facility] Comment on above: Performed By: #### B MP #### [facility] [address] [address] [address] Silver Harrison ALT [Catalytic activity/Vol] 13 U/L Critically low 14-59 [facility] Comment on above: Performed By: #### B MP #### [facility] [address] [address] [address] Silver Harrison Anion gap [Moles/Vol] 15.6 mmol/L Normal [facility] Comment on above: Performed By: #### B MP #### [facility] [address] [address] [address] Silver Harrison AST [Catalytic activity/Vol] 12 U/L Critically low 15-37 [facility] Comment on above: Performed By: #### B MP #### [facility] [address] [address] [address] Silver Harrison Bilirubin [Mass/Vol] 0.2 mg/dL Normal 0.2-1.0 [facility] Comment on above: Performed By: #### B MP #### [facility] [address] [address] [address] Silver Harrison Calcium [Mass/Vol] 8.3 mg/dL Critically low 8.5-10.1 [facility] Comment on above: Performed By: #### B MP #### [facility] [address] [address] [address] Silver Harrison Chloride [Moles/Vol] 113 mmol/L Critically high 98-107 [facility] Comment on above: Performed By: #### B MP #### [facility] [address] [address] [address] Silver Harrison CO2 [Moles/Vol] 25.1 mmol/L Normal 21.0-32.0 [facility] Comment on above: Performed By: #### B MP #### [facility] [address] [address] [address] Silver Harrison Creatinine [Mass/Vol] 4.32 mg/dL Critically high 0.55-1.02 [facility] Comment on above: Performed By: #### B MP #### [facility] [address] [address] [address] Silver Harrison EGFR-AF NIGERIAN 12 mL/min/1.73m2 Critically low >=60 [facility] Comment on above: Performed By: #### B MP #### [facility] [address] [address] [address] Silver Harrison EGFR-NON AF NIGERIAN 10 mL/min/1.73m2 Critically low >=60 [facility] Comment on above: Performed By: #### B MP #### [facility] [address] [address] [address] Silver Harrison Globulin (S) [Mass/Vol] 5.6 g/dL Normal [facility] Comment on above: Performed By: #### B MP #### [facility] [address] [address] [address] Silver Harrison Glucose [Mass/Vol] 45 mg/dL Critically low 74-106 [facility] Comment on above: Performed By: #### B MP #### [facility] [address] [address] [address] Silver Harrison Potassium [Moles/Vol] 4.7 mmol/L Normal 3.5-5.1 [facility] Comment on above: Performed By: #### B MP #### [facility] [address] [address] [address] Silver Harrison Protein [Mass/Vol] 8.4 g/dL Critically high 6.4-8.2 [facility] Comment on above: Performed By: #### B MP #### [facility] [address] [address] [address] Silver Harrison Sodium [Moles/Vol] 149 mmol/L Critically high 136-145 [facility] Comment on above: Performed By: #### B MP #### [facility] [address] [address] [address] Silver Harrison Urea nitrogen [Mass/Vol] 54.0 mg/dL Critically high 7.0-18.0 [facility] Comment on above: Performed By: #### B MP #### [facility] [address] [place] [address] Dr. Silver Harrison Urea nitrogen/Creatinine [Mass ratio] 12.5 mg/mg Normal [facility] Comment on above: Performed By: #### B MP #### [facility] [address] [place] [address] Dr. Silver Harrison VIT B12 AND FOLATEon 023 Cobalamin (Vitamin B12) [Mass/Vol] 395.0 pg/mL Normal 193.0-986. 0 [facility] Comment on above: Performed By: #### B MP #### [facility] [address] [place] [address] Dr. Silver Harrison FOLATE 5.60 ng/mL Critically low 8.60-58.90 [facility] Comment on above: Performed By: #### B MP #### [facility] [address] [place] [address] Dr. Silver Harrison CBC AUTO DIFFon 07-17-2022 BASO # 0.0 103/ul Normal 0.0-0.1 [facility] Comment on above: Performed By: #### C BC #### [facility] [address] [place] [address] Dr. Silver Harrison Basophils/100 WBC (Bld) 0.5 % Normal 0.2-2.0 [facility] Comment on above: Performed By: #### C BC #### [facility] [address] [place] [address] Dr. Silver Harrison EO # 0.2 103/ul Normal 0.0-0.7 [facility] Comment on above: Performed By: #### C BC #### [facility] [address] [place] [address] Dr. Silver Harrison Eosinophils/100 WBC (Bld) 2.6 % Normal 0.9-7.0 [facility] Comment on above: Performed By: #### C BC #### [facility] [address] [place] [address] Dr. Silver Harrison Erythrocyte distribution width (RBC) [Ratio] 13.2 % Normal 11.0-15.0 [facility] Comment on above: Performed By: #### C BC #### [facility] [address] [place] [address] Dr. Silver Harrison Hematocrit (Bld) [Volume fraction] 25.7 % Critically low 36.0-48.0 [facility] Comment on above: Performed By: #### C BC #### [facility] [address] [place] [address] Dr. Silver Harriosn Hemoglobin (Bld) [Mass/Vol] 7.7 g/dL Critically low 12.0-16.0 [facility] Comment on above: Performed By: #### C BC #### [facility] [address] [place] [address] Dr. Silver Harrison IG # 0.04 10e3/ul Critically high 0.00-0.03 [facility] Comment on above: Performed By: #### C BC #### [facility] [address] [place] [address] Dr. Silver Harrison IG % 0.5 % Normal 0.0-0.5 [facility] Comment on above: Performed By: #### C BC #### [facility] [address] [place] [address] Dr. Silver Harrison LYMPH # 1.9 103/ul Normal 1.2-3.8 [facility] Comment on above: Performed By: #### C BC #### [facility] [address] [place] [address] Dr. Silver Harrison Lymphocytes/100 WBC (Bld) 21.8 % Normal 20.5-60.0 [facility] Comment on above: Performed By: #### C BC #### [facility] [address] [place] [address] Dr. Silver Harrison MANUAL DIFF REQ NO Normal [facility] Comment on above: Performed By: #### C BC #### [facility] [address] [place] [address] Dr. Silver Harrison MCH (RBC) [Entitic mass] 29.2 pg Normal 26.7-34.0 [facility] Comment on above: Performed By: #### C BC #### [facility] [address] [address] [address] Silver Harrison MCHC (RBC) [Mass/Vol] 30.0 g/dL Normal 29.9-35.2 [facility] Comment on above: Performed By: #### C BC #### [facility] [address] [address] [address] Silver Harrison MCV (RBC) [Entitic vol] 97.3 fL Normal 81.0-99.0 [facility] Comment on above: Performed By: #### C BC #### [facility] [address] [place] [address] Dr. Silver Harrison MONO # 0.6 103/ul Normal 0.3-0.8 [facility] Comment on above: Performed By: #### C BC #### [facility] [address] [place] [address] Dr. Silver Harrison Monocytes/100 WBC (Bld) 7.3 % Normal 1.7-12.0 [facility] Comment on above: Performed By: #### C BC #### [facility] [address] [place] [address] Dr. Silver Harrison NEUT # 5.7 103/ul Normal 1.4-6.5 [facility] Comment on above: Performed By: #### C BC #### [facility] [address] [place] [address] Dr. Silver Harrison Neutrophils/100 WBC (Bld) 67.3 % Normal 43.0-75.0 [facility] Comment on above: Performed By: #### C BC #### [facility] [address] [address] [address] Silver Harrison Platelet mean volume (Bld) [Entitic vol] 10.0 fL Normal 9.5-13.5 [facility] Comment on above: Performed By: #### C BC #### [facility] [address] [address] [address] Silver Harrison PLT 154 103/ul Normal 150-450 [facility] Comment on above: Performed By: #### C BC #### [facility] [address] [place] [address] Dr. Silver Harrison RBC 2.64 106/ul Critically low 4.20-5.40 [facility] Comment on above: Performed By: #### C BC #### [facility] [address] [place] [address] Dr. Silver Harrison WBC 8.5 103/ul Normal 4.0-11.0 [facility] Comment on above: Performed By: #### C BC #### [facility] [address] [place] [address] Dr. Silver Harrison PHOSPHORUSon 07-17-2022 Phosphate [Mass/Vol] 4.9 mg/dL Critically high 2.6-4.7 [facility] Comment on above: Performed By: #### U SUNITA, MG, RENAL #### [facility] [address] [place] [address] Dr. Silver Harrison PROF CHEM 8 (BAS METB)on Anion gap [Moles/Vol] 12.1 mmol/L Normal [facility] Comment on above: Performed By: #### U SUNITA, MG, RENAL #### [facility] [address] [place] [address] Dr. Silver Harrison Calcium [Mass/Vol] 7.9 mg/dL Critically low 8.5-10.1 [facility] Comment on above: Performed By: #### U SUNITA, MG, RENAL #### [facility] [address] [place] [address] Dr. Silver Harrison Chloride [Moles/Vol] 108 mmol/L Critically high 98-107 [facility] Comment on above: Performed By: #### U SUNITA, MG, RENAL #### [facility] [address] [place] [address] Dr. Silver Harrison CO2 [Moles/Vol] 26.4 mmol/L Normal 21.0-32.0 [facility] Comment on above: Performed By: #### U SUNITA, MG, RENAL #### [facility] [address] [place] [address] Dr. Silver Harrison Creatinine [Mass/Vol] 4.33 mg/dL Critically high 0.55-1.02 [facility] Comment on above: Performed By: #### U SUNITA, MG, RENAL #### [facility] [address] [address] [address] Silver Harrison EGFR-AF NIGERIAN 12 mL/min/1.73m2 Critically low >=60 [facility] Comment on above: Performed By: #### U SUNITA, MG, RENAL #### [facility] [address] [place] [address] Dr. Silver Harrison EGFR-NON AF NIGERIAN 10 mL/min/1.73m2 Critically low >=60 [facility] Comment on above: Performed By: #### U SUNITA, MG, RENAL #### [facility] [address] [place] [address] Dr. Silver Harrison Glucose [Mass/Vol] 86 mg/dL Normal 74-106 [facility] Comment on above: Performed By: #### U SUNITA, MG, RENAL #### [facility] [address] [place] [address] Dr. Silver Harrison Potassium [Moles/Vol] 4.5 mmol/L Normal 3.5-5.1 [facility] Comment on above: Performed By: #### U SUNITA, MG, RENAL #### [facility] [address] [place] [address] Dr. Silver Harrison Sodium [Moles/Vol] 142 mmol/L Normal 136-145 [facility] Comment on above: Performed By: #### U SUNITA, MG, RENAL #### [facility] [address] [address] [address] Silver Harrison Urea nitrogen [Mass/Vol] 50.0 mg/dL Critically high 7.0-18.0 [facility] Comment on above: Performed By: #### U SUNITA, MG, RENAL #### [facility] [address] [address] [address] Silver Harrison Urea nitrogen/Creatinine [Mass ratio] 11.5 mg/mg Normal [facility] Comment on above: Performed By: #### U SUNITA, MG, RENAL #### [facility] [address] [place] [address] Dr. Silver Harrison CBC AUTO DIFFon 07-03-2022 BASO # 0.0 103/ul Normal 0.0-0.1 [facility] Comment on above: Performed By: #### U SUNITA, MG, RENAL #### [facility] [address] [place] [address] Dr. Silver Harrison Basophils/100 WBC (Bld) 0.4 % Normal 0.2-2.0 [facility] Comment on above: Performed By: #### U SUNITA, MG, RENAL #### [facility] [address] [place] [address] Dr. Silver Harrison EO # 0.3 103/ul Normal 0.0-0.7 [facility] Comment on above: Performed By: #### U SUNITA, MG, RENAL #### [facility] [address] [place] [address] Dr. Silver Harrison Eosinophils/100 WBC (Bld) 2.9 % Normal 0.9-7.0 [facility] Comment on above: Performed By: #### U SUNITA, MG, RENAL #### [facility] [address] [place] [address] Dr. Silver Harrison Erythrocyte distribution width (RBC) [Ratio] 12.9 % Normal 11.0-15.0 [facility] Comment on above: Performed By: #### U SUNITA, MG, RENAL #### [facility] [address] [place] [address] Dr. Silver Harrison Hematocrit (Bld) [Volume fraction] 28.0 % Critically low 36.0-48.0 [facility] Comment on above: Performed By: #### U SUNITA, MG, RENAL #### [facility] [address] [place] [address] Dr. Silver Harrison Hemoglobin (Bld) [Mass/Vol] 8.5 g/dL Critically low 12.0-16.0 [facility] Comment on above: Performed By: #### U SUNITA, MG, RENAL #### [facility] [address] [place] [address] Dr. Silver Harrison IG # 0.07 10e3/ul Critically high 0.00-0.03 [facility] Comment on above: Performed By: #### U SUNITA, MG, RENAL #### [facility] [address] [address] [address] Silver Harrison IG % 0.7 % Critically high 0.0-0.5 [facility] Comment on above: Performed By: #### U SUNITA, MG, RENAL #### [facility] [address] [address] [address] Silver Harrison LYMPH # 1.7 103/ul Normal 1.2-3.8 [facility] Comment on above: Performed By: #### U SUNITA, MG, RENAL #### [facility] [address] [place] [address] Dr. Silver Harrison Lymphocytes/100 WBC (Bld) 17.7 % Critically low 20.5-60.0 [facility] Comment on above: Performed By: #### U SUNITA, MG, RENAL #### [facility] [address] [place] [address] Dr. Silver Harrison MANUAL DIFF REQ NO Normal [facility] Comment on above: Performed By: #### U SUNITA, MG, RENAL #### [facility] [address] [place] [address] Dr. Silver Harrison MCH (RBC) [Entitic mass] 29.0 pg Normal 26.7-34.0 [facility] Comment on above: Performed By: #### U SUNITA, MG, RENAL #### [facility] [address] [place] [address] Dr. Silver Harrison MCHC (RBC) [Mass/Vol] 30.4 g/dL Normal 29.9-35.2 [facility] Comment on above: Performed By: #### U SUNITA, MG, RENAL #### [facility] [address] [place] [address] Dr. Silver Harrison MCV (RBC) [Entitic vol] 95.6 fL Normal 81.0-99.0 [facility] Comment on above: Performed By: #### U SUNITA, MG, RENAL #### [facility] [address] [address] [address] Silver Harrison MONO # 0.6 103/ul Normal 0.3-0.8 [facility] Comment on above: Performed By: #### U SUNITA, MG, RENAL #### [facility] [address] [address] [address] Silver Harrison Monocytes/100 WBC (Bld) 5.7 % Normal 1.7-12.0 [facility] Comment on above: Performed By: #### U SUNITA, MG, RENAL #### [facility] [address] [address] [address] Silver Harrison NEUT # 7.1 103/ul Critically high 1.4-6.5 [facility] Comment on above: Performed By: #### U SUNITA, MG, RENAL #### [facility] [address] [place] [address] Dr. Silver Harrison Neutrophils/100 WBC (Bld) 72.6 % Normal 43.0-75.0 [facility] Comment on above: Performed By: #### U SUNITA, MG, RENAL #### [facility] [address] [address] [address] Silver Harrison Platelet mean volume (Bld) [Entitic vol] 9.8 fL Normal 9.5-13.5 [facility] Comment on above: Performed By: #### U SUNITA, MG, RENAL #### [facility] [address] [address] [address] Silver Harrison PLT 188 103/ul Normal 150-450 [facility] Comment on above: Performed By: #### U SUNITA, MG, RENAL #### [facility] [address] [address] [address] Silver Harrison RBC 2.93 106/ul Critically low 4.20-5.40 [facility] Comment on above: Performed By: #### U SUNITA, MG, RENAL #### [facility] [address] [place] [address] Dr. Silver Harrison WBC 9.7 103/ul Normal 4.0-11.0 [facility] Comment on above: Performed By: #### U SUNITA, MG, RENAL #### [facility] [address] [address] [address] Silver Harrison PROF CHEM 8 (BAS METB)on Anion gap [Moles/Vol] 10.9 mmol/L Normal [facility] Comment on above: Performed By: #### B MP #### [facility] [address] [address] [address] Silver Harrison Calcium [Mass/Vol] 8.5 mg/dL Normal 8.5-10.1 [facility] Comment on above: Performed By: #### B MP #### [facility] [address] [address] [address] Silver Harrison Chloride [Moles/Vol] 108 mmol/L Critically high 98-107 [facility] Comment on above: Performed By: #### B MP #### [facility] [address] [place] [address] Dr. Silver Harrison CO2 [Moles/Vol] 28.6 mmol/L Normal 21.0-32.0 [facility] Comment on above: Performed By: #### B MP #### [facility] [address] [place] [address] Dr. Silver Harrison Creatinine [Mass/Vol] 4.05 mg/dL Critically high 0.55-1.02 [facility] Comment on above: Performed By: #### B MP #### [facility] [address] [address] [address] Silver Harrison EGFR-AF NIGERIAN 13 mL/min/1.73m2 Critically low >=60 [facility] Comment on above: Performed By: #### B MP #### [facility] [address] [address] [address] Silver Harrison EGFR-NON AF NIGERIAN 11 mL/min/1.73m2 Critically low >=60 [facility] Comment on above: Performed By: #### B MP #### [facility] [address] [address] [address] Silver Harrison Glucose [Mass/Vol] 74 mg/dL Normal 74-106 [facility] Comment on above: Performed By: #### B MP #### [facility] [address] [address] [address] Silver Harrison Potassium [Moles/Vol] 4.5 mmol/L Normal 3.5-5.1 [facility] Comment on above: Performed By: #### B MP #### [facility] [address] [address] [address] Silver Harrison Sodium [Moles/Vol] 143 mmol/L Normal 136-145 [facility] Comment on above: Performed By: #### B MP #### [facility] [address] [address] [address] Silver Harrison Urea nitrogen [Mass/Vol] 45.0 mg/dL Critically high 7.0-18.0 [facility] Comment on above: Performed By: #### B MP #### [facility] [address] [place] [address] Dr. Silver Harrison Urea nitrogen/Creatinine [Mass ratio] 11.1 mg/mg Normal [facility] Comment on above: Performed By: #### B MP #### [facility] [address] [place] [address] Dr. Silver Harrison CBC AUTO DIFFon 07-01-2022 BASO # 0.1 103/ul Normal 0.0-0.1 [facility] Comment on above: Performed By: #### U SUNITA, MG, RENAL #### [facility] [address] [place] [address] Dr. Silver Harrison Basophils/100 WBC (Bld) 0.5 % Normal 0.2-2.0 [facility] Comment on above: Performed By: #### U SUNITA, MG, RENAL #### [facility] [address] [place] [address] Dr. Silver Harrison EO # 0.2 103/ul Normal 0.0-0.7 [facility] Comment on above: Performed By: #### U SUNITA, MG, RENAL #### [facility] [address] [place] [address] Dr. Silver Harrison Eosinophils/100 WBC (Bld) 2.4 % Normal 0.9-7.0 [facility] Comment on above: Performed By: #### U SUNITA, MG, RENAL #### [facility] [address] [place] [address] Dr. Silver Harrison Erythrocyte distribution width (RBC) [Ratio] 12.7 % Normal 11.0-15.0 [facility] Comment on above: Performed By: #### U SUNITA, MG, RENAL #### [facility] [address] [place] [address] Dr. Silver Harrison Hematocrit (Bld) [Volume fraction] 27.9 % Critically low 36.0-48.0 [facility] Comment on above: Performed By: #### U SUNITA, MG, RENAL #### [facility] [address] [place] [address] Dr. Silver Harrison Hemoglobin (Bld) [Mass/Vol] 8.6 g/dL Critically low 12.0-16.0 [facility] Comment on above: Performed By: #### U SUNITA, MG, RENAL #### [facility] [address] [place] [address] Dr. Silver Harrison IG # 0.10 10e3/ul Critically high 0.00-0.03 [facility] Comment on above: Performed By: #### U SUNITA, MG, RENAL #### [facility] [address] [place] [address] Dr. Silver Harrison IG % 1.0 % Critically high 0.0-0.5 [facility] Comment on above: Performed By: #### U SUNITA, MG, RENAL #### [facility] [address] [place] [address] Dr. Silver Harrison LYMPH # 1.9 103/ul Normal 1.2-3.8 [facility] Comment on above: Performed By: #### U SUNITA, MG, RENAL #### [facility] [address] [place] [address] Dr. Silver Harrison Lymphocytes/100 WBC (Bld) 19.1 % Critically low 20.5-60.0 [facility] Comment on above: Performed By: #### U SUNITA, MG, RENAL #### [facility] [address] [address] [address] Silver Harrison MANUAL DIFF REQ NO Normal [facility] Comment on above: Performed By: #### U SUNITA, MG, RENAL #### [facility] [address] [place] [address] Dr. Silver Harrison MCH (RBC) [Entitic mass] 29.5 pg Normal 26.7-34.0 [facility] Comment on above: Performed By: #### U SUNITA, MG, RENAL #### [facility] [address] [place] [address] Dr. Silver Harrison MCHC (RBC) [Mass/Vol] 30.8 g/dL Normal 29.9-35.2 [facility] Comment on above: Performed By: #### U SUNITA, MG, RENAL #### [facility] [address] [place] [address] Dr. Silver Harrison MCV (RBC) [Entitic vol] 95.5 fL Normal 81.0-99.0 [facility] Comment on above: Performed By: #### U SUNITA, MG, RENAL #### [facility] [address] [place] [address] Dr. Silver Harrison MONO # 0.6 103/ul Normal 0.3-0.8 [facility] Comment on above: Performed By: #### U SUNITA, MG, RENAL #### [facility] [address] [place] [address] Dr. Silver Harrison Monocytes/100 WBC (Bld) 5.4 % Normal 1.7-12.0 [facility] Comment on above: Performed By: #### U SUNITA, MG, RENAL #### [facility] [address] [place] [address] Dr. Silver Harrison NEUT # 7.3 103/ul Critically high 1.4-6.5 [facility] Comment on above: Performed By: #### U SUNITA, MG, RENAL #### [facility] [address] [place] [address] Dr. Silver Harrison Neutrophils/100 WBC (Bld) 71.6 % Normal 43.0-75.0 [facility] Comment on above: Performed By: #### U SUNITA, MG, RENAL #### [facility] [address] [address] [address] Silver Harrison Platelet mean volume (Bld) [Entitic vol] 10.0 fL Normal 9.5-13.5 [facility] Comment on above: Performed By: #### U SUNITA, MG, RENAL #### [facility] [address] [place] [address] Dr. Silver Harrison PLT 208 103/ul Normal 150-450 [facility] Comment on above: Performed By: #### U SUNITA, MG, RENAL #### [facility] [address] [address] [address] Silver Harrison RBC 2.92 106/ul Critically low 4.20-5.40 [facility] Comment on above: Performed By: #### U SUNITA, MG, RENAL #### [facility] [address] [place] [address] Dr. Silver Harrison WBC 10.2 103/ul Normal 4.0-11.0 [facility] Comment on above: Performed By: #### U SUNITA, MG, RENAL #### [facility] [address] [place] [address] Dr. Silver Harrison PROF CHEM 8 (BAS METB)on Anion gap [Moles/Vol] 12.7 mmol/L Normal [facility] Comment on above: Performed By: #### B MP #### [facility] [address] [place] [address] Dr. Silver Harrison Calcium [Mass/Vol] 8.5 mg/dL Normal 8.5-10.1 [facility] Comment on above: Performed By: #### B MP #### [facility] [address] [place] [address] Dr. Silver Harrison Chloride [Moles/Vol] 108 mmol/L Critically high 98-107 [facility] Comment on above: Performed By: #### B MP #### [facility] [address] [place] [address] Dr. Silver Harrison CO2 [Moles/Vol] 26.9 mmol/L Normal 21.0-32.0 [facility] Comment on above: Performed By: #### B MP #### [facility] [address] [address] [address] Silver Harrison Creatinine [Mass/Vol] 4.31 mg/dL Critically high 0.55-1.02 [facility] Comment on above: Performed By: #### B MP #### [facility] [address] [address] [address] Silver Harrison EGFR-AF NIGERIAN 12 mL/min/1.73m2 Critically low >=60 [facility] Comment on above: Performed By: #### B MP #### [facility] [address] [address] [address] Silver Harrison EGFR-NON AF NIGERIAN 10 mL/min/1.73m2 Critically low >=60 [facility] Comment on above: Performed By: #### B MP #### [facility] [address] [address] [address] Silver Harrison Glucose [Mass/Vol] 141 mg/dL Critically high 74-106 [facility] Comment on above: Performed By: #### B MP #### [facility] [address] [address] [address] Silver Harrison Potassium [Moles/Vol] 4.6 mmol/L Normal 3.5-5.1 [facility] Comment on above: Performed By: #### B MP #### [facility] [address] [address] [address] Silver Harrison Sodium [Moles/Vol] 143 mmol/L Normal 136-145 [facility] Comment on above: Performed By: #### B MP #### [facility] [address] [address] [address] Silver Harrison Urea nitrogen [Mass/Vol] 47.0 mg/dL Critically high 7.0-18.0 [facility] Comment on above: Performed By: #### B MP #### [facility] [address] [address] [address] Silver Harrison Urea nitrogen/Creatinine [Mass ratio] 10.9 mg/mg Normal [facility] Comment on above: Performed By: #### B MP #### [facility] [address] [place] [address] Dr. Silver Harrison PTH INTACTon 06-25-2022 PTH, Intact 132 pg/mL Critically high 15-65 [facility] Comment on above: Performed By: #### U SUNITA, MG, RENAL #### [facility] [address] [place] [address] Dr. Silver Harrison CBC AUTO DIFFon 06-24-2022 BASO # 0.0 103/ul Normal 0.0-0.1 [facility] Comment on above: Performed By: #### B MP #### [facility] [address] [place] [address] Dr. Silver Harrison Basophils/100 WBC (Bld) 0.5 % Normal 0.2-2.0 [facility] Comment on above: Performed By: #### B MP #### [facility] [address] [place] [address] Dr. Silver Harrison EO # 0.2 103/ul Normal 0.0-0.7 [facility] Comment on above: Performed By: #### B MP #### [facility] [address] [place] [address] Dr. Silver Harrison Eosinophils/100 WBC (Bld) 2.8 % Normal 0.9-7.0 [facility] Comment on above: Performed By: #### B MP #### [facility] [address] [place] [address] Dr. Silver Harrison Erythrocyte distribution width (RBC) [Ratio] 12.5 % Normal 11.0-15.0 [facility] Comment on above: Performed By: #### B MP #### [facility] [address] [place] [address] Dr. Silver Harrison Hematocrit (Bld) [Volume fraction] 26.0 % Critically low 36.0-48.0 [facility] Comment on above: Performed By: #### B MP #### [facility] [address] [place] [address] Dr. Silver Harrison Hemoglobin (Bld) [Mass/Vol] 8.1 g/dL Critically low 12.0-16.0 [facility] Comment on above: Performed By: #### B MP #### [facility] [address] [place] [address] Dr. Silver Harrison IG # 0.08 10e3/ul Critically high 0.00-0.03 [facility] Comment on above: Performed By: #### B MP #### [facility] [address] [place] [address] Dr. Silver Harrison IG % 0.9 % Critically high 0.0-0.5 [facility] Comment on above: Performed By: #### B MP #### [facility] [address] [place] [address] Dr. Silver Harrison LYMPH # 1.6 103/ul Normal 1.2-3.8 [facility] Comment on above: Performed By: #### B MP #### [facility] [address] [place] [address] Dr. Silver Harrison Lymphocytes/100 WBC (Bld) 19.4 % Critically low 20.5-60.0 [facility] Comment on above: Performed By: #### B MP #### [facility] [address] [place] [address] Dr. Silver Harrison MANUAL DIFF REQ NO Normal [facility] Comment on above: Performed By: #### B MP #### [facility] [address] [place] [address] Dr. Silver Harrison MCH (RBC) [Entitic mass] 30.0 pg Normal 26.7-34.0 [facility] Comment on above: Performed By: #### B MP #### [facility] [address] [place] [address] Dr. Silver Harrison MCHC (RBC) [Mass/Vol] 31.2 g/dL Normal 29.9-35.2 [facility] Comment on above: Performed By: #### B MP #### [facility] [address] [place] [address] Dr. Silver Harrison MCV (RBC) [Entitic vol] 96.3 fL Normal 81.0-99.0 [facility] Comment on above: Performed By: #### B MP #### [facility] [address] [place] [address] Dr. Silver Harrison MONO # 0.6 103/ul Normal 0.3-0.8 [facility] Comment on above: Performed By: #### B MP #### [facility] [address] [place] [address] Dr. Silver Harrison Monocytes/100 WBC (Bld) 6.6 % Normal 1.7-12.0 [facility] Comment on above: Performed By: #### B MP #### [facility] [address] [place] [address] Dr. Silver Harrison NEUT # 5.9 103/ul Normal 1.4-6.5 [facility] Comment on above: Performed By: #### B MP #### [facility] [address] [place] [address] Dr. Silver Harrison Neutrophils/100 WBC (Bld) 69.8 % Normal 43.0-75.0 [facility] Comment on above: Performed By: #### B MP #### [facility] [address] [place] [address] Dr. Silver Harrison Platelet mean volume (Bld) [Entitic vol] 10.0 fL Normal 9.5-13.5 [facility] Comment on above: Performed By: #### B MP #### [facility] [address] [place] [address] Dr. Silver Harrison PLT 180 103/ul Normal 150-450 [facility] Comment on above: Performed By: #### B MP #### [facility] [address] [place] [address] Dr. Silver Harrison RBC 2.70 106/ul Critically low 4.20-5.40 [facility] Comment on above: Performed By: #### B MP #### [facility] [address] [place] [address] Dr. Silver Harrison WBC 8.4 103/ul Normal 4.0-11.0 [facility] Comment on above: Performed By: #### B MP #### [facility] [address] [place] [address] Dr. Silver Harrison FERRITINon 06-24-2022 Ferritin [Mass/Vol] 535.0 ng/mL Critically high 8.0-252.0 [facility] Comment on above: Performed By: #### F ETIBC, FERR, VITAD #### [facility] [address] [place] [address] Dr. Silver Harrison IRON AND TIBCon 06-24-2022 % SATURATION 16.9 % Normal [facility] Comment on above: Performed By: #### F ETIBC, FERR, VITAD #### [facility] [address] [place] [address] Dr. Silver Harrison Iron [Mass/Vol] 31.0 ug/dL Critically low 50.0-170.0 [facility] Comment on above: Performed By: #### F ETIBC, FERR, VITAD #### [facility] [address] [place] [address] Dr. Silver Harrison TIBC DIRECT 183.0 ug/dL Critically low 250.0-450. 0 [facility] Comment on above: Performed By: #### F ETIBC, FERR, VITAD #### [facility] [address] [place] [address] Dr. Silver Harrison MAGNESIUMon 06-24-2022 Magnesium [Mass/Vol] 2.3 mg/dL Normal 1.8-2.4 [facility] Comment on above: Performed By: #### U SUNITA, MG, RENAL #### [facility] [address] [place] [address] Dr. Silver Harrison RENAL FUNCTION PANELon 06-24 Albumin [Mass/Vol] 2.5 g/dL Critically low 3.4-5.0 [facility] Comment on above: Performed By: #### U SUNITA, MG, RENAL #### [facility] [address] [place] [address] Dr. Silver Harrison Calcium [Mass/Vol] 8.4 mg/dL Critically low 8.5-10.1 [facility] Comment on above: Performed By: #### U SUNITA, MG, RENAL #### [facility] [address] [place] [address] Dr. Silver Harrison Chloride [Moles/Vol] 107 mmol/L Normal 98-107 [facility] Comment on above: Performed By: #### U SUNITA, MG, RENAL #### [facility] [address] [place] [address] Dr. Silver Harrison CO2 [Moles/Vol] 24.2 mmol/L Normal 21.0-32.0 [facility] Comment on above: Performed By: #### U SUNITA, MG, RENAL #### [facility] [address] [place] [address] Dr. Silver Harrison Creatinine [Mass/Vol] 4.38 mg/dL Critically high 0.55-1.02 [facility] Comment on above: Performed By: #### U SUNITA, MG, RENAL #### [facility] [address] [place] [address] Dr. Silver Harrison EGFR-AF NIGERIAN 12 mL/min/1.73m2 Critically low >=60 [facility] Comment on above: Performed By: #### U SUNITA, MG, RENAL #### [facility] [address] [place] [address] Dr. Silver Harrison EGFR-NON AF NIGERIAN 10 mL/min/1.73m2 Critically low >=60 [facility] Comment on above: Performed By: #### U SUNITA, MG, RENAL #### [facility] [address] [place] [address] Dr. Silver Harrison Glucose [Mass/Vol] 55 mg/dL Critically low 74-106 [facility] Comment on above: Performed By: #### U SUNITA, MG, RENAL #### [facility] [address] [place] [address] Dr. Silver Harrison Phosphate [Mass/Vol] 6.0 mg/dL Critically high 2.6-4.7 [facility] Comment on above: Performed By: #### U SUNITA, MG, RENAL #### [facility] [address] [place] [address] Dr. Silver Harrison Potassium [Moles/Vol] 4.3 mmol/L Normal 3.5-5.1 [facility] Comment on above: Performed By: #### U SUNITA, MG, RENAL #### [facility] [address] [place] [address] Dr. Silver Harrison Sodium [Moles/Vol] 142 mmol/L Normal 136-145 [facility] Comment on above: Performed By: #### U SUNITA, MG, RENAL #### [facility] [address] [place] [address] Dr. Silver Harrison Urea nitrogen [Mass/Vol] 55.0 mg/dL Critically high 7.0-18.0 [facility] Comment on above: Performed By: #### U SUNITA, MG, RENAL #### [facility] [address] [place] [address] Dr. Silver Harrison URIC ACID SERUMon 06-24-2022 Urate [Mass/Vol] 7.7 mg/dL Critically high 2.6-6.0 [facility] Comment on above: Performed By: #### U SUNITA, MG, RENAL #### [facility] [address] [place] [address] Dr. Silver Harrison VITAMIN D 25 OHon 06-24-2022 VIT D 25-OH 29.0 ng/mL Normal [facility] Comment on above: Performed By: #### F ETIBC FERR, VITAD #### [facility] [address] [place] [address] Dr. Silver Harrison VIT D RANGES SEE BELOW Normal [facility] Comment on above: Result Comment: <20 ng/mL Vit D deficient 20 - <30 ng/mL Vit D insufficient 30 - 100 ng/mL Vit D sufficient >100 ng/mL Potential Toxicity Performed By: #### F ETIBC, FERR, VITAD #### [facility] [address] [place] [address] Dr. Silver Harrison BASIC MET PANEL W/GFRon 05-28 Calcium [Mass/Vol] 8.0 mg/dL Low (8.6 - 10.6) [facility] Comment on above: Order Comment: STAT FACILITY: [facility] [id number] Performed By: #### C HEM-B, T20 #### [place] [facility] [address] [place], [address] Chloride [Moles/Vol] 112 mmol/L High (98 - 107) [facility] Comment on above: Order Comment: STAT FACILITY: [facility] [facility] [id number] Performed By: #### C HEM-B, T20 #### [place] [facility] [address] [place], [address] CO2 [Moles/Vol] 19 mmol/L Low (22 - 30) [facility] Comment on above: Order Comment: STAT FACILITY: [facility] [facility] [id number] Performed By: #### C HEM-B, T20 #### [place] [facility] [address] [place], [address] Creatinine [Mass/Vol] 4.98 mg/dL High (0.52 - 1.04) [facility] Comment on above: Order Comment: STAT FACILITY: [facility] [facility] [id number] Performed By: #### C HEM-B, T20 #### [place] [facility] [address] [place], [address] GFR- AMER 10.3 ML/M1.7 Low (60.0 - 140.1) [facility] Comment on above: Order Comment: STAT FACILITY: [facility] [facility] [id number] Performed By: #### C HEM-B, T20 #### [place] [facility] [address] [place], [address] GFR-NON AFRIC-AMER 8.5 ML/M1.7 Low (60.0 - 115.8) [facility] Comment on above: Order Comment: STAT FACILITY: [facility] [facility] [id number] Performed By: #### C HEM-B, T20 #### [facility] [facility] [address] [place], [address] Glucose [Mass/Vol] 104 mg/dL Normal (74 - 106) [facility] Comment on above: Order Comment: STAT FACILITY: [facility] [id number] Performed By: #### C HEM-B, T20 #### [place] [facility] [address] [place], [address] Potassium [Moles/Vol] 6.1 mmol/L Critically high (3. 5 - 5.1) [facility] Comment on above: Order Comment: STAT FACILITY: [facility] [id number] Result Comment: CRIT ICAL RESULT REPEATED AND REPORTED TO: LISA MARSHALL @ 11:50 AM 06/15/2022 RP Performed By: #### C HEM-B, T20 #### [facility] [address] [place], [address] Sodium [Moles/Vol] 142 mmol/L Normal (137 - 145) [facility] Comment on above: Order Comment: STAT FACILITY: [facility] [id number] Performed By: #### C HEM-B, T20 #### [place] [facility] [address] [place], [address] Urea nitrogen [Mass/Vol] 59 mg/dL High (7 - 17) [facility] Comment on above: Order Comment: STAT FACILITY: [facility] [id number] Performed By: #### Renea HEM-B, T20 #### [place] [facility] [address] [place], [address] CBC NO DIFFon 06-15-2022 Hematocrit (Bld) [Volume fraction] 28.5 % Low (37.0 - 47.0) [facility] Comment on above: Performed By: #### C HEM-B, T20 #### [place] [facility] [address] [place], [address] Hemoglobin (Bld) [Mass/Vol] 8.8 g/dL Low (12.0 - 16.0) [facility] Comment on above: Performed By: #### C HEM-B, T20 #### [place] [facility] [address] [place], [address] MCH (RBC) [Entitic mass] 30.0 pg Normal (27.0 - 33.0) [facility] Comment on above: Performed By: #### C HEM-B, T20 #### [place] [facility] [address] [place], [address] MCHC (RBC) [Mass/Vol] 30.9 g/dL Normal (30.0 - 37.0) [facility] Comment on above: Performed By: #### C HEM-B, T20 #### [place] [facility] [address] [place], [address] MCV (RBC) [Entitic vol] 97.3 fL Normal (81.0 - 99.0) [facility] Comment on above: Performed By: #### C HEM-B, T20 #### [place] [facility] [address] [place], [address] PLT 151 x10^3ul Normal (130 - 400) [facility] Comment on above: Performed By: #### C HEM-B, T20 #### [place] [facility] [address] [place], [address] RBC 2.93 x10^6ul Low (4.20 - 5.40) [facility] Comment on above: Performed By: #### C HEM-B, T20 #### [place] [facility] [address] [place], [address] RDW-SD 44.6 fl Normal (37.0 - 49.0) [facility] Comment on above: Performed By: #### C HEM-B, T20 #### [place] [facility] [address] [place], [address] WBC 11.09 x10^3ul High (3.80 - 10.60) [facility] Comment on above: Performed By: #### C HEM-B, T20 #### [facility] [address] [facility], [address] MG MAMM SCREEN MOIRA W CADon 0 01-19-2022 MG MAMM SCREEN MOIRA W CAD Patient: ESSENCE CASTORENA Exam Date: 01/19/2022 : 1950 Gender:F Ordering : DR CHRISTOPHER MANN M.D. Admission #: [id number] Family : Order #: [id number] CLICK HERE TO VIEW EXAM RADIOLOGY REPORT [...] with pancreatic cancer at age 67. LOCATION: [facility] BREAST COMPOSITION: Extremely dense, which lowers the [...] Leon MD on 01/19/2022 at 12:12 Normal [facility] Coding Summary.on 01-06-2019 Coding Summary. 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 chronic kidney disease with stage 1 through stage 4 chronic kidney disease, or unspecified chronic kidney disease E11.22 Type 2 diabetes mellitus with diabetic chronic kidney disease N18.3 Chronic kidney disease, stage 3 (moderate) F41.9 Anxiety disorder, unspecified 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 Name: ESSENCE CASTORENA Aleta Spence/Sex: 1950 Female Med Rec #: [id number] Physician: Emanuel Hartley DO Financial #: [id number] Pt. Type: A Room/Bed: [place] [address] Admit/Disch: 01/04/19 13:05:00 - 01/04/19 14:15:00 Institution: [...] Carleen Gill Role Performed Surgeon - Primary Seed Core Operator - Primary Scrub - Primary Time In 01/04/19 13:44:00 01/04/19 13:44:00 01/04/19 13:44:00 Time Out 01/04/19 14:02:00 01/04/19 14:02:00 01/04/19 14:02:00 Procedure MYRINGOTOMY W/ MYRINGOTOMY W/ MYRINGOTOMY W/ INSERTION OF INSERTION OF INSERTION OF TUBES(Bilateral) TUBES(Bilateral) TUBES(Bilateral) Comments Last Modified By: Mark CARDONA, Brooklyn Flores RN, Brooklyn De La Fuente RN 01/04/19 17:06:00 01/04/19 17:06:00 01/04/19 17:06:00 Perioperative [...] Time Out Emanuel Hartley DO, Given Participants Tony CARDONA, Tr Crawford CST, Liane E Time Out Complete 01/04/19 13:48:00 Outcomes Met? [...] taken back to asu for discharge. 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 Normal [facility] Inpatient Patient Summaryon 01-04-2019 Inpatient Patient Summary [facility] Clinical Discharge Instructions PERSON INFORMATION Name: ESSENCE CASTORENA PHYSICIANS Admitting Physician: Emanuel Hartley DO Attending Physician: Emanuel Hartley DO PCP: ALDA MITCHELL DO Discharge Diagnosis: Cerumen debris on tympanic membrane; Conductive hearing loss of both ears Comment: PATIENT EDUCATION INFORMATION Instructions: Medication Leaflets: Follow up: With: Address: When: Emanuel Hartley [address] [place] [address] [phone] Business (1) MEDICATION LIST Comment: Derian [facility] Operative Reporton 9 Operative Report Date of [...] brought to the Operating Room Suite at [facility], at which time she was placed [...] and satisfactory condition. Danilo Vera Dictated: 01/04/2019 #[id number] Typed: 01/04/2019 #[id number] cc: Emanuel Hartley D.O. [facility] Comment on above: Result Comment: Elec tronically Signed By: Biedenbach DO, Emanuel S\.br\Date and Time Signed: 01/04/19 15:25 EDT Operative Report Patient: MIGUEL CASTORENA Age: 68 years Sex: Female : 1950 Associated Diagnoses: None Author: Emanuel Hartley DO Postoperative Information Preoperative Diagnosis: Bilateral cerumen impaction Bilateral conductive hearing loss. Postoperative Diagnosis: Same. Performed by: Emanuel Hartley DO. Estimated Blood Loss: 0 ml. Complications: None. Bilateral ear exam with removal of cerumen impaction Anesthesia type: local. Normal [facility] Comment on above: Result Comment: Elec tronically Signed By: Emanuel Hartley DO\.br\Date and Time Signed: 01/04/19 14:09 EDT Patient Education - Texton 0 01-04-2019 Patient Education - Text [facility] Vital Signs Date Time Vital Sign Value Performing Clinician Facility 03-23-2023 14:06-0500 Diastolic blood pressure 80 mm[Hg] Danii Rodriguez MD Work Phone: [facility] 03-23-2023 14:06-0500 Heart rate 76 /min Danii Rodriguez MD Work Phone: [facility] 03-23-2023 14:06-0500 Systolic blood pressure 132 mm[Hg] Danii Rodriguez MD Work Phone: [facility] 02-05-2023 09:31-0400 Body temperature 98.2 [degF] MD Christopher Mann Work Phone: [facility] 02-05-2023 09:31-0400 Diastolic blood pressure 70 mm[Hg] MD Christopher Mann Work Phone: [facility] 02-05-2023 09:31-0400 Heart rate 72 /min MD Christopher Mann Work Phone: [facility] 02-05-2023 09:31-0400 Respiratory rate 18 /min MD Christopher Mann Work Phone: [facility] 02-05-2023 09:31-0400 SaO2% (BldA) [Mass fraction] 97 % MD Christopher Mann Work Phone: [facility] 02-05-2023 09:31-0400 Systolic blood pressure 130 mm[Hg] MD Christopher Mann Work Phone: [facility] 11-11-2022 16:12-0400 Diastolic blood pressure 68 mm[Hg] Christopher Sandhu Patterson Work Phone: [facility] [address] DO Work Phone: 11-11-2022 16:12-0400 Heart rate 84 /min Christopher Sandhu Patterson Work Phone: [facility] DO Work Phone: 11-11-2022 16:12-0400 Systolic blood pressure 122 mm[Hg] Christopehr Sandhu Johnathan Work Phone: [facility] 250 DO Work Phone: 07-31-2022 19:37-0400 Diastolic blood pressure 65 mm[Hg] MD Christopher Mann Work Phone: [facility] 07-31-2022 19:37-0400 Heart rate 78 /min MD Christopher Mann Work Phone: [facility] 07-31-2022 19:37-0400 Respiratory rate 20 /min MD Christopher Mann Work Phone: [facility] 07-31-2022 19:37-0400 SaO2% (BldA) [Mass fraction] 98 % MD Christopher Mann Work Phone: [facility] 07-31-2022 19:37-0400 Systolic blood pressure 142 mm[Hg] MD Christopher Mann Work Phone: [facility] 07-31-2022 15:05-0400 Body height 162.56 cm MD Christopher Mann Work Phone: [facility] 07-31-2022 15:05-0400 Body temperature 97.6 [degF] MD Christopher Mann Work Phone: [facility] 07-31-2022 15:05-0400 Body weight 106.14 kg MD Christopher Mann Work Phone: [facility] 07-31-2022 10:41-0400 Body temperature 98.4 [degF] MD Christopher Mann Work Phone: [facility] 07-31-2022 10:41-0400 Body weight 109 kg MD Christopher Mann Work Phone: [facility] 07-31-2022 10:41-0400 Diastolic blood pressure 68 mm[Hg] MD Christopher Mann Work Phone: [facility] 07-31-2022 10:41-0400 Heart rate 74 /min MD Christopher Mann Work Phone: [facility] 07-31-2022 10:41-0400 Respiratory rate 20 /min MD Christopher Mann Work Phone: [facility] 07-31-2022 10:41-0400 SaO2% (BldA) [Mass fraction] 97 % MD Christopher Mann Work Phone: [facility] 07-31-2022 10:41-0400 Systolic blood pressure 136 mm[Hg] MD Christopher Mann Work Phone: [facility] 07-14-2022 17:20-0400 Body height 160.02 cm Essie Merlyn Other Disc[employer] Other 07-14-2022 17:20-0400 Diastolic blood pressure 70 mm[Hg] Essie Merlyn Other [employer] Other 07-14-2022 17:20-0400 Respiratory rate 20 /min Essie Merlyn Other [employer] Other 07-14-2022 17:20-0400 SaO2% (BldA) [Mass fraction] 96 % Essie Merlyn Other [facility] [employer] Other 07-14-2022 17:20-0400 Systolic blood pressure 153 mm[Hg] Essie Merlyn Other [facility] [employer] Other 07-01-2022 09:42-0500 Body temperature 98.1 [degF] MD Christopher Mann Work Phone: [facility] 07-01-2022 09:42-0500 Diastolic blood pressure 71 mm[Hg] MD Christopher Mann Work Phone: [facility] 07-01-2022 09:42-0500 Heart rate 68 /min MD Christopher Mann Work Phone: [facility] 07-01-2022 09:42-0500 Respiratory rate 18 /min MD Christopher Mann Work Phone: [facility] 07-01-2022 09:42-0500 SaO2% (BldA) [Mass fraction] 96 % MD Christopher Mann Work Phone: [facility] 07-01-2022 09:42-0500 Systolic blood pressure 134 mm[Hg] MD Christopher Mann Work Phone: [facility] 07-01-2022 09:27-0500 Body height 162.56 cm MD Christopher Mann Work Phone: [facility] Encounters Encounter Date Encounter Type Care Provider Facility Start: 03-23-2023 End: 03-23-2023 ambulatory [facility] Ambulatory Start: 03-23-2023 End: 03-23-2023 Office outpatient visit 15 minutes Danii Rodriguez MD Work Phone: [facility] Comment on above: Atherosclerosis of n ative coronary artery of seminole heart without angina pectoris (Primary Dx); Chest discomfort; Essential hypertension, benign; Mixed hyperlipidemia; Dialysis patient (CMS/HCC); Cerebrovascular accident (CVA), unspecified mechanism (CMS/HCC) Start: 02-05-2023 ambulatory Essence Alicea Facility:[facility] Start: 02-05-2023 End: 02-05-2023 ambulatory MD Christopher Mann Work Phone: [facility] Work Phone: Start: 02-05-2023 End: 02-05-2023 Registered Recurring MD Christopher Mann Work Phone: [facility] Work Phone: Start: 11-11-2022 Office outpatient vi sit 25 minutes Christopher Mann Work Phone: [facility] [address] DO Work Phone: Start: 11-11-[address] Danii Rodriguez Facility: Start: 09-07-2022 End: 09-07-[address] CHRISTOPHER MANN Facility:H1 Start: 08-04-2022 ambulatory Danii Rodriguez Faci lity:[id number] Start: 08-03-2022 ambulatory Danii Rodriguez Faci lity:[id number] Start: 08-02-2022 End: 08-05-2022 Evaluation and management of inpatient Christopher Mann Facility:[facility] Start: 08-02-2022 ambulatory Danii Rodriguez Faci lity:[id number] Start: 08-01-[address] Danii Rodriguez Facility:[id number] Start: 08-01-2022 ambulatory Danii Rodriguez Faci lity:[id number] Start: 07-31-2022 Evaluation and manag ement of inpatient MD Christopher Mann Work Phone: [facility] [place] [facility] Work Phone: Start: 07-31-2022 Registered Recurring MD Christopher Mann Work Phone: [facility] Work Phone: Start: 07-31-2022 End: 07-31-[address] CHRISTOPHER MANN Facility:H1 Start: 07-29-2022 End: 07-29-[address] CHRISTOPHER MANN Facility:H1 Start: 07-24-2022 End: 07-24-[address] CHRISTOPHER MANN Facility:H1 Start: 07-21-2022 End: 07-21-2022 ambulatory Essie Merlyn Other Discourse Other Start: 07-21-2022 Telephone encounter Essie Merlyn [facility] Start: 07-20-2022 Telephone encounter Essie Merlyn [facility] Start: 07-20-2022 End: 07-20-2022 ambulatory ESSIE MERLYN Discourse Other Start: 07-17-2022 End: 07-17-[address] CHRISTOPHER MANN Facility:H1 Start: 07-14-2022 End: 07-14-2022 ambulatory Essie Merlyn Other Discourse Other Start: 07-14-2022 Office outpatient ne w 45 minutes Essie Merlyn [facility] Start: 07-03-2022 End: 07-03-[address] ARTURO GUO . Facility:H1 Start: 07-01-2022 End: 07-01-2022 ambulatory MD Christopher Mann Work Phone: [facility] Work Phone: Start: 07-01-2022 End: 07-01-2022 Registered Recurring MD Christopher Mann Work Phone: [facility] Work Phone: Start: 06-24-2022 End: 06-24-[address] CHRISTOPHER MANN Facility:H1 Start: 01-19-2022 End: 01-20-[address] CHRISTOPHER MANN Facility:H1 Procedures Date Procedure Procedure Detail Performing Clinician Start: 01-29-2023 Mammography Danii phillips MD Work Phone: Start: 07-31-2022 Plain chest X-ray MD James Mann Work Phone: Appendectomy Christopher Sandhu Johnathan Work Phone: Hysterectomy [place] Sandhu Patterson Work Phone: Operative procedure on knee [place] Sandhu Johnathan Work Phone: Total colonoscopy Christopher Sandhu Al da Work Phone: Plan of Treatment Date Care Activity Detail Author Start: 03-28-2024 End: 03-28-2024 Patient encounter procedure 03/28/2024 2:00 PM EST Office Visit [facility] [address] [facility] [address] [place] [address] Danii Rodriguez MD [address] [facility] [address] [place] [address] [place] [address] [facility] Start: 01-30-2024 Screening for malignant neoplasm of breast Mammogram [facility] Start: 03-23-2023 FUV, Provider: Danii Rodriguez, Status: Pen, Time: 2:20 PM FUV, Provider: Danii Rodriguez, Status: Pen, Time: 2:20 PM [facility] 250 DO Work Phone: Start: 12-25-2022 Influenza vaccination Influenza Vaccine (#1) [facility] Start: 07-31-2022 Bacteria identified in Urine by Culture [facility] Start: 11-19-1999 Zoster Vaccines (1 of 2) Zoster Vaccines (1 of 2) [facility] Start: 11-19-1971 DTaP/Tdap/Td Vaccines (1 - Tdap) DTaP/Tdap/Td Vaccines (1 - Tdap) [facility] Start: 11-19-1967 Diabetes mellitus screening Diabetes Screening [facility] Start: 11-19-1967 Hepatitis C screening Hepatitis C Screening [facility] Start: 11-19-1955 Pneumococcal Vaccine: 65+ Years (1 - PCV) Pneumococcal Vaccine: 65+ Years (1 - PCV) [facility] Start: 05-21-1950 COVID-19 Vaccine (#1) COVID-19 Vaccine (#1) [facility] Start: 1950 Lipid panel Lipid Panel [facility] Start: 1950 Screening for malignant neoplasm of colon [facility] Start: 1950 Yearly Adult Physical Yearly Adult Physical [facility] Immunizations Immunization Date Immunization Notes Care Provider Fa cility 05-03-2020 COVID-19 Manjinder Gonzalez (Pfizer) MD Christopher Mann Work Phone: [facility] 04-15-2020 COVID-19 Manjinder Gonzalez (Pfizer) MD Christopher Mann Work Phone: [facility] Payers Date Payer Category Payer Private Health Insurance [id number] 2022 Self-pay [id number] 2017 Medicaid MEDICAID MEDICAI D [id number] 2017-Present [address] [place] [address] [id number] 1959 Medicaid [id number] 1959 Medicare [id number] 1950 Unknown [id number] 56 1950 Unknown [id number] 2.16.840.1.704503.3.579.2.3 56 1949 Unknown [id number] 2.16.840.1.574465.3.579.2.3 56 1949 Unknown [id number] 2.16.840.1.443332.3.579.2.3 56 1949 Unknown [id number] 2.16.840.1.775275.3.579.2.3 56 1949 Unknown [id number] 2.16.840.1.543781.3.579.2.5 93 1949 Unknown [id number] 2.16.840.1.989640.3.579.2.5 93 1949 Unknown [id number] 2.16.840.1.478229.3.579.2.5 93 1949 Unknown [id number] 2.16.840.1.256411.3.579.2.5 93 1949 Unknown [id number] 2.16.840.1.431713.3.579.2.5 93 1949 Unknown [id number] 2.16.840.1.171703.3.579.2.5 93 1949 Unknown [id number] 2.16.840.1.090486.3.579.2.5 93 1949 Unknown [id number] 2.16.840.1.637739.3.579.2.5 93 1949 Unknown [id number] 2.16.840.1.967305.3.579.2.5 93 1949 Unknown [id number] 2.16.840.1.738378.3.579.2.5 93 1949 Unknown [id number] 2.16.840.1.588295.3.579.2.3 56 1949 Unknown [id number] 2.16.840.1.539668.3.579.2.3 56 1950 Unknown [id number] 2.16.840.1.262250.3.579.2.1 244 Unknown O [id number] Unknown Unknown [id number] 2.16.840.1.083205.3.579.2.5 31 Unknown [id number] 2.16.840.1.163102.3.579.2.5 31 Social History Date Type Detail Facility Start: 07-01-2022 End: 03-23-2023 Tobacco smoking status NHIS Ex-smoker (finding) [facility] Start: 1950 Sex Assigned At Female [facility] Start: 03-23-2023 Sex Assigned At Rayn [facility] [employer] Other Start: 03-23-2023 Consumes alcohol occasionally Consumes alcohol occasionally -[facility] [address] DO Work Phone: History of tobacco use Current smoker [facility] Work Phone: History of tobacco use Cigarette Smoker [facility] Work Phone: Start: 03-23-2023 Tobacco use and exposure Smokeless tobacco non-user [facility] Work Phone: Start: 03-23-2023 Alcohol intake Ex-drinker (finding) [facility] Work Phone: Start: 03-19-2023 Alcohol Comment occasional [facility] Work Phone: Start: 1950 Sex Assigned At Not on file [facility] Work Phone: Start: 03-13-2023 End: 03-23-2023 Exposure to SARS-CoV-2 (event) Not sure [facility] Medical Equipment Procedure Code Equipment Code Equipment Origin al Text Equipment Identifier Dates Phacoemulsification of cataract with intraocular lens implantation Posterior-chamber intraocular lens, pseudophakic [id number] FDA Start: 04-10-2021 Phacoemulsification of cataract with intraocular lens implantation Posterior-chamber intraocular lens, pseudophakic [id number] [facility] Start: 05-22-2021 Clinical Notes 07-01-2022 to 03-23-2023 Danii Rodriguez MD - 03/23/2023 2:20 PM ESTPatient Instructions Note Date & Type Note Facility 03-23-2023 History of Present illness Narrative Subjective Essence Castorena is a 72 y.o. female Chief Complaint Follow-up HPI Patient is here for follow-up continue management for history of coronary artery disease with remote PCI in [place], hypertension, hyperlipidemia. Patient is a resident of a local long term. She had dense left-sided hemiplegia. She denies any chest pain but reports some mild shortness of breath since the last time I saw her. She has limited exercise tolerance. She has been stable cardiac cifuentes. Assessment 1. Coronary artery disease prior intervention in [place] detail is lacking. Recent evaluation of atypical chest pain. Stress test and echocardiogram appears to be reassuring 2. Chronic kidney disease on hemodialysis 3. Hypertension controlled 4. Hyperlipidemia on treatment 5. Diabetes mellitus 6. History of stroke with left-sided hemiplegia almost wheelchair-bound 7. shelter resident 8. Intermittent episode of hemodialysis associated [...] times a day., Disp: , Rfl: HYDROcodone-acetaminophen ([place]) 5-325 mg tablet, Take 1 tablet by [...] Disp: , Rfl: Assessment/Plan 1. Atherosclerosis of seminole coronary artery of seminole heart without angina pectoris Follow Up In Cardiology 2. Chest discomfort Follow Up In Cardiology 3. Essential hypertension, benign 4. Mixed hyperlipidemia 5. Dialysis patient (CMS/HCC) 6. Cerebrovascular accident (CVA), unspecified mechanism (CMS/HCC) documented in this encounter [facility] Work Phone: 03-23-2023 Instructions Shannan York CMA [...] of your visit. documented in this encounter [facility] Work Phone: 07-31-2022 Progress note Note Date/Time July 31, 2022 11:02am [facility] at [address] [address] Hem/Onc Follow Up Note - OP Signed Patient: Amparo Castorena MR#: [id number] : 1950 Acct:[id number] Age/Sex: 71 / F Type: REG RCR Copies to: MD Christopher Palafox, MD~ Date of Service: 07/31/2022 Time of Service: 11:00 - Assessment & Plan (1) Anemia in chronic kidney disease (CKD) Plan: Anemia of chronic kidney disease CKD-IV on dialysis. Previously seen at [facility] and transferred care to [facility] as of 07/01/22 now on dialysis, gets epo agents through dialysis. Is awaiting fistula for dialysis, this will be done in [place] Previous anemia work-up completed prior to transfer [...] with a history of CVA, diabetes, PVD, DC x 2, cataracts, hyperlipidemia, HTN, GERD, and anemia of CKD. Surgical history includes hysterectomy, carpal tunnel surgery and bilateral arthroscopic knee surgery. She denies any personal or family history of cancer. She is referred by Dr. Sanchez Jean at [facility] to establish care for her anemia from CKD. She recently started Aranesp weekly and is in the process of getting dialysis fistula placed to start dialysis. Most recent labs reveal hgb 8.1, wbc 13.9, platelets 135,000, anc 10.8. Creatinine 4.9 with GFR 9, calcium 8.0. She is transferring care as she resides at [facility] in [place] and this is muchcloser for her and [...] for coordination of care (as documented) and [id number] counseling of patient and/or family. [facility] - Medical History Medical History: Medical History [...] calcium 500 mg-D3 400 unit-K 15 mcg-folic [id number] tablet 1 tab PO DAILY 03/28/21 [History [...] bisacodyl 10 mg rectal suppository 10 mg GA DAILY PRN Constipation 07/01/22 [History Confirmed 07/31/22] [...] signed by Tex Kim II, DO> 07/31/22 [address] [facility] Work Phone: 1(329) 867-508403-21-2023 Evaluation note* Encounter Date Diagnosis Assessment Notes [...] the acarbose due to the advanced CKD. [employer] Other 03-08-2023 Consult note Author Essence Alicea [facility] July 01, 2022 1:16pm Note Date/Time July 01, 2022 9:47 am [facility] at [address] [address] Hem/Onc Consult Note - OP Signed Patient: Amparo Castorena MR#: [id number] : 1950 Acct:[id number] Age/Sex: 71 / F Type: REG RCR Copies to: MD Christopher Palafox MD~ HPI Date/Time of Service: Date of Service: 07/01/2022 Time of Service: 09:46 Referring Provider/PCP: Referring Provider: Sanchez Jean MD PCP: Christopher Mann MD - History of Present Illness Chief Complaint: Patient is transferring care [facility] for anemia. Resides at [facility]. Outside labs. HPI: Amparo is a 71-year-old female with a history of CVA, diabetes, PVD, DC x 2, cataracts, hyperlipidemia, HTN, GERD, and anemia of CKD. Surgical history includes hysterectomy, carpal tunnel surgery and bilateral arthroscopic knee surgery. She denies any personal or family history of cancer. She is referred by Dr. Sanchez Jean at [facility] to establish care for her anemia from CKD. She recently started Aranesp weekly and is in the process of getting dialysis fistula placed to start dialysis. Most recent labs reveal hgb 8.1, wbc 13.9, platelets 135,000, anc 10.8. Creatinine 4.9 with GFR 9, calcium 8.0. She is transferring care as she resides at [facility] in [place] and this is muchcloser for her and [...] fevers, chills, sweats, pain or other complaints. [facility] - Medical History Medical History: Medical History [...] Allergy (Verified 07/01/22 09:34) [facility] Allergy (Verified 07/01/22 09:34) Swelling Home Medications acarbose 100 mg tablet 100 mg PO BID dm 03/28/21 [History Confirmed 07/01/22] amlodipine 5 mg tablet (Norvasc) 10 mg PO DAILY 03/28/21 [History Confirmed 07/01/22] atorvastatin 20 mg tablet 20 mg PO QHS 03/28/21 [History Confirmed 07/01/22] calcium 500 mg-D3 400 unit-K 15 mcg-folic [id number] tablet 1 tab PO DAILY 03/28/21 [History [...] bisacodyl 10 mg rectal suppository 10 mg GA DAILY PRN Constipation 07/01/22 [History Confirmed 07/01/22] [...] will start dialysis soon. Previously seen at [facility] and transferred care to [facility] as of 07/01/22 She is currently on Aranesp weekly, will clarify dose. She gets this at the long term. Is awaiting fistula for dialysis, this will be done in [place] Previous anemia work-up completed prior to transfer [...] for coordination of care (as documented) and [id number] counseling of patient and/or family. Dictated By: Essence Alicea APRN DD/ [id number] Signed By: <Electronically signed by ELLA Alicea> 07/01/22 1316 [facility] Work Phone: Evaluation noteNo assessment information available [facility] Work Phone: Evaluation noteNo [facility] [employer] Other Evaluation note* Diagnosis Onset Date Resolution Status Anemia in chronic kidney disease (CKD) acute Anemia in chronic kidney disease (CKD) acute Atypical chest pain acute UTI (urinary tract infection) acute [facility] Work Phone: Evaluation note* Diagnosis Onset Date Resolution Status Anemia in chronic kidney disease (CKD) acute [facility] Work Phone: Evaluation note* Diagnosis Atherosclerosis of seminole coronary artery of seminole heart without angina pectoris- Primary Chest discomfort Other chest pain Essential hypertension, benign Mixed hyperlipidemia Dialysis patient (CMS/HCC) Renal dialysis status Cerebrovascular accident (CVA), unspecified mechanism ([facility]) documented in this encounter [facility] Work Phone: History general Narrative - Reported* [...] PVD (PERIPHERAL VASCULAR DISEASE ) Medical History DC X2 Medical History CVA (CEREBRAL VASCULAR ACCIDENT) Surgical History Rt Knee Scope Surgical History Lt Knee Scope 1999 Surgical History Carpal Tunnel Surgical History Rt Hand - Tumor - benign Surgical History Tubal 1985 Surgical History Hyster 2005 Surgical History Heart Cath with Stents 09/2007 Surgical History FISTULA PLACEMENT IN RIGHT ARM 07/13/22 Hospitalization History see Surgery list [facility] [employer] Other History of Present illness Narrative* Patient is here for follow-up from recent hospitalization. She is accompanied by her daughter. Patient appears to be poor historian. Most of the information gathered from the daughter. I saw her during recent hospitalization for evaluation of atypical chest pain. Patient reported history of coronary artery disease prior intervention in [place]. Detail is lacking. She does have history [...] 1. Coronary artery disease prior intervention in [place] detail is lacking. Recent evaluation of atypical chest pain. Stress test and echocardiogram appears to be reassuring * 2. Chronic kidney disease on hemodialysis * 3. Hypertension controlled * 4. Hyperlipidemia on treatment * 5. Diabetes mellitus * 6. History of stroke with left-sided weakness and * 7. shelter resident * 8. Intermittent episode of hemodialysis [...] conservative management and the patient is DNR [facility] 250 DO Work Phone: Progress note Author Tex Kim [facility] July 31, 2022 11:05am Note Date/Time July 31, 2022 11:0 2am [facility] [place] [address] Hem/Onc Follow Up Note - OP Signed Patient: Amparo Castorena MR#: [id number] : 1950 Acct:[id number] Age/Sex: 71 / F Type: REG RCR Copies to: MD Christopher Palafox MD~ Date of Service: 07/31/2022 Time of Service: 11:00 - Assessment & Plan (1) Anemia in chronic kidney disease (CKD) Plan: Anemia of chronic kidney disease CKD-IV on dialysis. Previously seen at [facility] and transferred care to [facility] as of 07/01/22 now on dialysis, gets epo agents through dialysis. Is awaiting fistula for dialysis, this will be done in [place] Previous anemia work-up completed prior to transfer [...] with a history of CVA, diabetes, PVD, DC x 2, cataracts, hyperlipidemia, HTN, GERD, and anemia of CKD. Surgical history includes hysterectomy, carpal tunnel surgery and bilateral arthroscopic knee surgery. She denies any personal or family history of cancer. She is referred by Dr. Sanchez Jean at [facility] to establish care for her anemia from CKD. She recently started Aranesp weekly and is in the process of getting dialysis fistula placed to start dialysis. Most recent labs reveal hgb 8.1, wbc 13.9, platelets 135,000, anc 10.8. Creatinine 4.9 with GFR 9, calcium 8.0. She is transferring care as she resides at [facility] in [place] and this is muchcloser for her and [...] for coordination of care (as documented) and [id number] counseling of patient and/or family. [facility] - Medical History Medical History: Medical History [...] calcium 500 mg-D3 400 unit-K 15 mcg-folic [id number] tablet 1 tab PO DAILY 03/28/21 [History [...] bisacodyl 10 mg rectal suppository 10 mg GA DAILY PRN Constipation 07/01/22 [History Confirmed 07/31/22] [...] by Tex Kim II, DO> 07/31/22 1105 [facility] Work Phone: [place] note Author [facility] February 05, 2023 9:59am Note Date/Time February 05, 2023 9 :50am [facility] [place] [address] Hem/Onc Follow Up Note - OP Signed Patient: Amparo Castorena MR#: [id number] : 1950 Acct:[id number] Age/Sex: 72 / F Type: REG RCR Copies to: MD Christopher Palafox MD~ Date of Service: 02/05/2023 Time of Service: 09:49 - Assessment & Plan (1) Anemia in chronic kidney disease (CKD) Plan: Anemia of chronic kidney disease CKD-IV on dialysis. Previously seen at [facility] and transferred care to [facility] as of 07/01/22 now on dialysis, gets [...] with a history of CVA, diabetes, PVD, DC x 2, cataracts, hyperlipidemia, HTN, GERD, and anemia of CKD. Surgical history includes hysterectomy, carpal tunnel surgery and bilateral arthroscopic knee surgery. She denies any personal or family history of cancer. She is referred by Dr. Sanchez Jean at [facility] to establish care for her anemia from CKD. She recently started Aranesp weekly and is in the process of getting dialysis fistula placed to start dialysis. Most recent labs reveal hgb 8.1, wbc 13.9, platelets 135,000, anc 10.8. Creatinine 4.9 with GFR 9, calcium 8.0. She is transferring care as she resides at [facility] in [place] and this is muchcloser for her and [...] for coordination of care (as documented) and [id number]-ad-[id number] counseling of patient and/or family. [facility] - Medical History Medical History: Medical History [...] calcium 500 mg-D3 400 unit-K 15 mcg-folic [id number] tablet 1 tab PO DAILY 03/28/21 [History [...] bisacodyl 10 mg rectal suppository 10 mg GA DAILY PRN Constipation 07/01/22 [History Confirmed 02/05/23] [...] <Electronically signed by ELLA Alicea> 02/05/23 0959 [facility] Work Phone: Reason for referral (narrative)* Consultation (Routine) - Authorized Specialty Diagnoses / Procedures Referred By Savanah t Referred To Contact Cardiology Diagnoses Atherosclerosis of seminole coronary artery of seminole heart without angina pectoris Chest discomfort Procedures Follow Up In Cardiology Danii Rodriguez MD [address] [place], [place] [address]er [facility] [address], [address] [address] Danii Rodriguez MD [facility] 2, [address] [place] [address] Referral ID Status Reason Start Date Expiration Date V isits Requested Visits Authorized [id number] Authorized 03/23/2023 03/22/2024 1 1 [facility] Work Phone: Summary Purpose Family History [...] section and content) DATE CREATED AUTHOR 01/06/2019 [facility] DATE CREATED AUTHOR AUTHOR'S ORGANIZ ATION 06/15/2022 [facility] DATE CREATED AUTHOR AUTHOR'S ORGANIZ ATION 08/26/2022 [facility] DATE CREATED AUTHOR AUTHOR'S ORGANIZ ATION 09/07/2022 [facility] [place] [facility] DATE CREATED AUTHOR AUTHOR'S ORGANIZ ATION 11/12/2022 [employer] DATE CREATED AUTHOR AUTHOR'S ORGANIZ ATION 03/10/2023 [facility] DATE CREATED AUTHOR AUTHOR'S ORGANIZ ATION 03/18/2023 [facility] DATE CREATED AUTHOR AUTHOR'S ORGANIZ ATION 03/25/2023 [facility] Picture Copyist Teams (unrecognized sec tion and content) Team [...] Young MD Admit Provider, Attending Provider Active Rebar Bender Relationship Specialty Start Date End Date Christopher Mann MD [address] [place] [id number] PCP - General 11/11/22 Goals (unrecognized section [...] BE BASED ON THE PRIMARY CLINICAL RECORDS. [employer] [facility]. provides no warranty or guarantee of the accuracy or completeness of information in this document.
[2023-08-02 08:21] LABS: Basophils Absolute Auto 0.1 10^3/uL (0.0-0.1); Basophils Percent Auto 0.6 % (0.2-2.0); Eosinophils Absolute Auto 0.2 10^3/uL (0.0-0.7); Eosinophils Percent Auto 1.4 % (0.9-7.0); Hematocrit 37.3 % (36.0-48.0); Hemoglobin 11.3 g/dL (12.0-16.0); Immature Granulocytes Abs Auto 0.08 10^3/uL (0.00-0.03); Immature Granulocytes Pct Auto 0.6 % (0.0-0.5); Lymphocytes Absolute Auto 2.5 10^3/uL (1.2-3.8); Lymphocytes Percent Auto 19.8 % (20.5-60.0); Mean Corpuscular HGB Conc 30.3 g/dL (29.9-35.2); Mean Corpuscular Hemoglobin 32.8 pg (26.7-34.0); Mean Corpuscular Volume 108.1 fL (81.0-99.0); Mean Platelet Volume 10.2 fL (9.5-13.5); Monocytes Absolute Auto 0.9 10^3/uL (0.3-0.8); Monocytes Percent Auto 6.8 % (1.7-12.0); Neutrophils Absolute Auto 8.9 10^3/uL (1.4-6.5); Neutrophils Percent Auto 70.8 % (43.0-75.0); Platelet Count 153 10^3/uL (150-450); Red Blood Count 3.45 10^6/uL (4.20-5.40); Red Cell Distribution Width 13.6 % (11.0-15.0); White Blood Count 12.6 10^3/uL (4.0-11.0)
[2023-08-02 10:47] LABS: Percent Iron Saturation 28.8 %
== END 2023-08-02 02:53 | disposition home or self-care (01) ==
LOC: LAB 02:52
PROVIDERS: PCP Family Medicine; Visit Provider Family Medicine
DX: D64.9 Anemia, unspecified (principal); N18.9 Chronic kidney disease, unspecified
CPT/HCPCS: 36415; 82607; 82728; 82746; 83540; 83550; 85025

== ENCOUNTER 2023-08-04 06:10 | Outpatient (REF) | payer MEDICARE, MEDICAID, SELFPAY ==
--- OUTSIDE RECORDS SUMMARY | 2023-08-04 06:20 | XMS_ITS | CCD ---
Author Organization [facility] Care Team Providers Care Environmental Professional Name Role Phone MD Christopher Mann Primary Care Provider ELLA Alicea Attending Provider MD Sanchez Jean Referring Provider [phone] Essie Salas Unavailable MD Christopher Mann Primary Care Provider [phone] ELLA Alicea Attending Provider MD Sanchez Jean Referring Provider [phone] SAMIRA Moss Emergency Provider MD Camila Young Admit Provider MD Camila Young Attending Provider [phone] Danii Rodriguez Attending Unavailable TraboulDanii menjivar Attending [...] Attending Unavailable JOHNATHAN, DR WHITE Admitting Unavailable SyracuseChristopher Unavailable Unavailable Unavailable MD Christopher Mann Primary Care Provider ELLA Alicea Attending Provider MD Sanchez Jean Referring Provider Essence Alicea Admitting Unavail able Essence Alicea Attending Unavail able Sanchez Jean Referring Unavailable Christopher Mann Primary Care Unavailable JohnathanChristopher Primary Care Unavailable Camila Young Admitting Unavailable [...] Translations: [cephalexin] Drug Allergy 3 Itching, Swelling [facility] (5 sources) Diclofenac; Translations: [diclofenac] Drug Allergy 3 Swelling [facility] (5 sources) miSOPROStol; Translations: [misoprostol] Drug Allergy 3 Swelling [facility] (5 sources) Cephalexin; Translations: [Keflex] Drug Allergy 6 reddened pruritic rash, Swelling, Itching [facility] (4 sources) Diclofenac / miSOPROStol Drug Allergy 3 [facility] (1 source) Diclofenac / miSOPROStol Drug Allergy 6 [facility] (1 source) Diclofenac / miSOPROStol; Translations: [Arthrotec TABS] Drug Allergy Hives, Itching, Rash [facility] [employer] 250 DO Work Phone: (1 source) shellfish, unspecified Allergy to substance (finding) Vomiting [facility] 250 DO Work Phone: (2 sources) Shellfish; Translations: [SHELLFISH CONTAINING PRODUCTS] Propensity to adverse reactions 3 Nausea/vomiting [facility] Work Phone: (1 source) Diclofenac / miSOPROStol; Translations: [DICLOFENAC-MIS OPROSTOL] Drug Allergy [address] [facility] 3 Repository Medications Current Medications [...] times daily as needed for pain HYDROcodone-acetaminophen ([place]) 5-325 mg tablet Take 1 tablet by [...] 03-28-2021 End: 06-30-2022 Bisacodyl Active 10 MG TX Daily July 01, 2022 1:00am Calcium + [...] 2 tablets Orally Once a day Active Masmqem-W8-O-Fa-E40-R-Vn nerals (4 sources) Start: 03-28-2021 take 1 tablet by mouth once daily Srpqfwq-D7-R-Fa-B12-C-M inerals Active 1 TAB PO Daily March 28, 2021 1:00am Start: 03-28-2021 take 1 tablet by haresh th once daily Comkafi-E9-Y-Nz-K52-KK26-Z-Rolgeeih Active 1 TAB PO Daily March 28, [...] % as directed Externally Active Epoetin Chris [address] UNIT/ML (3 sources) Epoetin Chris 200 00 [...] 2021 1:00am take 1 capsule by mo [facility] three times daily gabapentin (Neurontin) 300 mg [...] l admission (1 source) Lives in a prison; Translations: [Person living in residential institution] Episodic [...] 11-11-2022 Follow-up visit Diagnoses/Problems Assessed Atherosclerosis of lower [place] coronary artery without angina pectoris (414.01) (I25.10) Chest discomfort (786.59) (R07.89) Benign essential hypertension (401.1) (I10) Hyperlipidemia (272.4) (E78.5) Stroke (434.91) (I63.9) Dialysis patient (V45.11) (Z99.2) [facility] resident (V60.6) (Z59.3) Former smoker (V15.82) (Z87.891) Orders SocHx: Former smoker Tobacco Use Screening; Status:Complete; Done: [id number] Patient Instructions Please bring all medicines, vitamins, [...] of coronary artery disease prior intervention in Sod. Detail is lacking. She does have history [...] 1. Coronary artery disease prior intervention in Sod detail is lacking. Recent evaluation of atypical chest pain. Stress test and echocardiogram appears to be reassuring 2. Chronic kidney disease on hemodialysis 3. Hypertension controlled 4. Hyperlipidemia on treatment 5. Diabetes mellitus 6. History of stroke with left-sided weakness and 7. [facility] resident 8. Intermittent episode of hemodialysis associated [...] smoker (V15.82) (Z87.891) No illicit drug use [facility] resident (V60.6) (Z59.3) Review of Systems Constitutional: [...] habits an (more content not included)... Normal [employer] [facility] Tobacco Screening.on 023 Fall risk assessment a) No falls within the last year [facility] [employer] 250 DO Work Phone: Tobacco use status [facility] b) No [facility] [employer] 250 DO Work Phone: Glucose Poct Glucometerson 0 08-05-2022 Glucose [Mass/Vol] 113 mg/dL Normal [facility] Comment on above: Result Comment: [facility] Glucose Reference Range is dependent on time and content of last meal. Glucose of more than 200 mg/dL in a nonstressed, ambulatory subject supports the diagnosis of Diabetes Mellitus. PERFORMED BY: [place] [address] PATHOLOGIST RETAIL PROPERTY MANAGER DANII HAYNES M.D. Performed By: #### B MP, CBC #### [address] Glucose [Mass/Vol] 108 mg/dL Normal [facility] Comment on above: Result Comment: [facility] Glucose Reference Range is dependent on time and content of last meal. Glucose of more than 200 mg/dL in a nonstressed, ambulatory subject supports the diagnosis of Diabetes Mellitus. PERFORMED BY: [place] [address] PATHOLOGIST RETAIL PROPERTY MANAGER DANII HAYNES M.D. Performed By: #### G CAPRICE #### Point of Care testing , Renal Function Panelon 08-05 Albumin [Mass/Vol] 3.3 g/dL Low 3.5-5.[address] [facility] Comment on above: Order Comment: pt wo uldnt let me retry to get the blood work Performed By: #### B MP, CBC #### [place] [address] [place] Anion gap [Moles/Vol] 13.9 mmol/L Normal 6.0-15.0 [facility] Comment on above: Order Comment: pt wo uldnt let me retry to get the blood work Performed By: #### B MP, CBC #### [place] [address] [place] Calcium [Mass/Vol] 8.6 mg/dL Normal 8.6-10.[address] [facility] Comment on above: Order Comment: pt wo uldnt let me retry to get the blood work Performed By: #### B MP, CBC #### [place] [address] [place] Chloride [Moles/Vol] 98 mmol/L Normal 98-107 [facility] Comment on above: Order Comment: pt wo uldnt let me retry to get the blood work Performed By: #### B MP, CBC #### [address] CO2 [Moles/Vol] 26.3 mmol/L Normal 21.0-31.0 [facility] Comment on above: Order Comment: pt wo uldnt let me retry to get the blood work Performed By: #### B MP, CBC #### [facility] [address] Creatinine [Mass/Vol] 5.26 mg/dL Significan t change up 0.60-1.20 [facility] Comment on above: Order Comment: pt wo uldnt let me retry to get the blood work Performed By: #### B MP, CBC #### [address] Creatinine Clr Calc Pharmacy 11.05 [facility] Comment on above: Order Comment: pt wo uldnt let me retry to get the blood work Result Comment: PERF ORMED BY: [place] [address] PATHOLOGIST RETAIL PROPERTY MANAGER DANII HAYNES M.D. Performed By: #### B MP, CBC #### [address] GFR/1.73 sq M.predicted MDRD (S/P/Bld) [Vol rate/Area] 8.165 mL/min/{1.73_m2} [facility] Comment on above: Order Comment: pt wo uldnt let me retry to get the blood work Performed By: #### B MP, CBC #### [facility] [address] [place] [address] [place] Glucose [Mass/Vol] 111 mg/dL High 70-[address] [facility] Comment on above: Order Comment: pt wo uldnt let me retry to get the blood work Result Comment: [place] Glucose Reference Range is dependent on time and content of last meal. Glucose of more than 200 mg/dL in a nonstressed, ambulatory subject supports the diagnosis of Diabetes Mellitus. ADA recommended reference range Performed By: #### B MP, CBC #### [facility] [address] [place] [address] [place] Phosphate [Mass/Vol] 5.3 mg/dL Normal 3.7-7.2 [facility] Comment on above: Order Comment: pt wo uldnt let me retry to get the blood work Performed By: #### B MP, CBC #### [facility] [address] [place] [address] [place] Potassium [Moles/Vol] 4.2 mmol/L Normal 3.5-5.1 [facility] Comment on above: Order Comment: pt wo uldnt let me retry to get the blood work Performed By: #### B MP, CBC #### [facility] [address] [place] [address] [place] Sodium [Moles/Vol] 134 mmol/L Low 136-[address] [facility] Comment on above: Order Comment: pt wo uldnt let me retry to get the blood work Performed By: #### B MP, CBC #### [place] [address] [place] Urea nitrogen [Mass/Vol] 48 mg/dL High 7-25 [facility] Comment on above: Order Comment: pt wo uldnt let me retry to get the blood work Performed By: #### B MP, CBC #### [address] Glucose Poct Glucometerson 0 08-04-2022 Glucose [Mass/Vol] 118 mg/dL Normal [facility] Comment on above: Result Comment: [facility] Glucose Reference Range is dependent on time and content of last meal. Glucose of more than 200 mg/dL in a nonstressed, ambulatory subject supports the diagnosis of Diabetes Mellitus. PERFORMED BY: [place] [address] PATHOLOGIST RETAIL PROPERTY MANAGER DANII HAYNES M.D. Performed By: #### G CAPRICE #### Point of Care testing , Glucose [Mass/Vol] 118 mg/dL Normal [facility] Comment on above: Result Comment: [facility] Glucose Reference Range is dependent on time and content of last meal. Glucose of more than 200 mg/dL in a nonstressed, ambulatory subject supports the diagnosis of Diabetes Mellitus. PERFORMED BY: [place] [phone] PATHOLOGIST RETAIL PROPERTY MANAGER DANII HAYNES M.D. Performed By: #### G CAPRICE #### Point of Care testing , Glucose [Mass/Vol] 136 mg/dL Normal [facility] Comment on above: Result Comment: [facility] Glucose Reference Range is dependent on time and content of last meal. Glucose of more than 200 mg/dL in a nonstressed, ambulatory subject supports the diagnosis of Diabetes Mellitus. PERFORMED BY: [place] [phone] PATHOLOGIST RETAIL PROPERTY MANAGER DANII HAYNES M.D. Performed By: #### C MP #### [address] NM ping perf SPECT rest stron 08-04-2022 NM ping perf SPECT rest str [facility] Main [place] [address] [place], [place] [id number] Nuclear Medicine Report Signed Patient: Amparo Castorena MR#: [id number] 68 : 1950 Acct:[id number] Age/Sex: 71 / F ADM Date: 08/02/22 Loc: Room: [address] [place] [address] Type: ADM IN Attending Dr: Levy Ward MD Copies to: MD Jimbo Judd MD, [facility] Danii Rodriguez MD Ordering Provider: Danii [...] 08/04/22 1343 Dictated By: Jimbo Damon MD, [facility] 08/04/22 1247 Signed By: 08/04/22 1349 Normal [facility] Renal Function Panelon 08-04 Albumin [Mass/Vol] 3.0 g/dL Low 3.5-5.[address] [facility] Comment on above: Performed By: #### C MP #### [facility] [address] Anion gap [Moles/Vol] 13.5 mmol/L Normal 6.0-15.0 [facility] Comment on above: Performed By: #### C MP #### [facility] [address] [place] [address] [place] Calcium [Mass/Vol] 7.9 mg/dL Low 8.6-10.[address] [facility] Comment on above: Performed By: #### C MP #### [facility] [address] [place] [address] [place] Chloride [Moles/Vol] 97 mmol/L Low 98-107 [facility] Comment on above: Performed By: #### C MP #### [facility] [address] [place] [id number] [place] CO2 [Moles/Vol] 26.3 mmol/L Normal 21.0-31.0 [facility] Comment on above: Performed By: #### C MP #### [facility] [address] [place] [id number] [place] Creatinine [Mass/Vol] 4.44 mg/dL Significan t change up 0.60-1.20 [facility] Comment on above: Performed By: #### C MP #### [place] [address] [place] Creatinine Clr Calc Pharmacy 13.53 [facility] Comment on above: Result Comment: PERF ORMED BY: [place] [address] PATHOLOGIST RETAIL PROPERTY MANAGER DANII HAYNES M.D. Performed By: #### C MP #### [place] [address] [place] GFR/1.73 sq M.predicted MDRD (S/P/Bld) [Vol rate/Area] 10.006 mL/min/{1.73_m2} Normal [facility] Comment on above: Performed By: #### C MP #### [address] Glucose [Mass/Vol] 136 mg/dL High 70-[address] [facility] Comment on above: Result Comment: [facility] Glucose Reference Range is dependent on time and content of last meal. Glucose of more than 200 mg/dL in a nonstressed, ambulatory subject supports the diagnosis of Diabetes Mellitus. ADA recommended reference range Performed By: #### C MP #### [place] [address] [place] Phosphate [Mass/Vol] 4.2 mg/dL Normal 3.7-7.2 [facility] Comment on above: Performed By: #### C MP #### [place] [address] [place] Potassium [Moles/Vol] 3.8 mmol/L Normal 3.5-5.1 [facility] Comment on above: Performed By: #### C MP #### [place] [address] [place] Sodium [Moles/Vol] 133 mmol/L Low 136-[address] [facility] Comment on above: Performed By: #### C MP #### [place] [address] [place] Urea nitrogen [Mass/Vol] 36 mg/dL High 7-25 [facility] Comment on above: Performed By: #### C MP #### [facility] [address] [place] [address] [place] STR cardiac stress/lexiscano n 08-04-2022 STR cardiac stress/lexiscan [facility] Main [place] [address] [place] [address] Cardiac Stress Test Signed Patient: Amparo Castorena MR#: [id number] 68 : 1950 Acct:[id number] Age/Sex: 71 / F ADM Date: 08/02/22 Loc: Room: [address] [place] [address] Type: ADM IN Attending Dr: Levy Ward [...] MD 08/04/22 1143 Signed By: 08/05/22 0802 [facility] Blood Cultureon 08-03-2022 Bacteria identified Cx Nom (Bld) NO GROWTH 5 DAYS PERFORMED BY: [place] [address] PATHOLOGIST RETAIL PROPERTY MANAGER DANII HAYNES M.D. [facility] Comment on above: Performed By: #### C UBLD #### [facility] [address] [place] [id number] [facility] Bacteria identified Cx Nom (Bld) NO GROWTH 5 DAYS PERFORMED BY: [place] [id number] PATHOLOGIST RETAIL PROPERTY MANAGER DANII HAYNES M.D. Normal [facility] Comment on above: Performed By: #### C UBLD #### [address] Complete Blood Count Auto Di ffon 08-03-2022 Basophils (Bld) [#/Vol] 0.0 10*3/uL Normal 0.0-0.2 [facility] Comment on above: Result Comment: PERF ORMED BY: [place] [address] PATHOLOGIST RETAIL PROPERTY MANAGER DANII HAYNES M.D. Performed By: #### G LULS #### Point of Care testing , Basophils/100 WBC (Bld) 0.4 % Normal . [facility] Comment on above: Performed By: #### G LULS #### Point of Care testing , Eosinophils (Bld) [#/Vol] 0.3 10*3/uL Normal 0.0-0.45 [facility] Comment on above: Performed By: #### G LULS #### Point of Care testing , Eosinophils/100 WBC (Bld) 2.7 % Normal . [facility] Comment on above: Performed By: #### G LULS #### Point of Care testing , Erythrocyte distribution width (RBC) [Ratio] 14.8 % Normal 11.9-15.3 [facility] Comment on above: Performed By: #### G LULS #### Point of Care testing , Hematocrit (Bld) [Volume fraction] 25.9 % Low 34.0-46.4 [facility] Comment on above: Performed By: #### G LULS #### Point of Care testing , Hemoglobin (Bld) [Mass/Vol] 8.4 g/dL Low 11.8-15.4 [facility] Comment on above: Performed By: #### G LULS #### Point of Care testing , Lymphocytes (Bld) [#/Vol] 2.0 10*3/uL Normal 1.00-4.8 [facility] Comment on above: Performed By: #### Ayo VASQUES #### Point of Care testing , Lymphocytes/100 WBC (Bld) 19.0 % Normal . [facility] Comment on above: Performed By: #### Ayo SELLERSLS #### Point of Care testing , MCH (RBC) [Entitic mass] 29.6 pg Normal 24.7-34.3 [facility] Comment on above: Performed By: #### Ayo SELLERSLS #### Point of Care testing , MCV (RBC) [Entitic vol] 91.1 fL Normal 80-100 [facility] Comment on above: Performed By: #### Ayo SELLERSLS #### Point of Care testing , Mean Corpuscular HGB Conc 32.5 g/dL Normal 32.0-35.0 [facility] Comment on above: Performed By: #### Ayo VASQUES #### Point of Care testing , Monocytes (Bld) [#/Vol] 0.9 10*3/uL High 0.0-0.8 [facility] Comment on above: Performed By: #### Ayo SELLERSLS #### Point of Care testing , Monocytes/100 WBC (Bld) 9.0 % Normal . [facility] Comment on above: Performed By: #### Ayo VASQUES #### Point of Care testing , Neutrophils (Bld) [#/Vol] 7.1 10*3/uL Normal 1.8-7.7 [facility] Comment on above: Performed By: #### Ayo SELLERSLS #### Point of Care testing , Neutrophils/100 WBC (Bld) 68.9 % Normal . [facility] Comment on above: Performed By: #### yAo VASQUES #### Point of Care testing , NRBC% 0.0 /100{WBC} Normal 0-0.5 [facility] Comment on above: Performed By: #### Ayo SELLERSLS #### Point of Care testing , Platelet mean volume (Bld) [Entitic vol] 8.0 fL Normal 6.3-10.7 [facility] Comment on above: Performed By: #### Ayo VASQUES #### Point of Care testing , Platelets (Bld) [#/Vol] 145 10*3/uL Low 150-450 [facility] Comment on above: Performed By: #### G CAPRICE #### Point of Care testing , RBC (Bld) [#/Vol] 2.84 10*6/uL Low 3.60-5.00 [facility] Comment on above: Performed By: #### G LULS #### Point of Care testing , WBC (Bld) [#/Vol] 10.3 10*3/uL Normal 3.8-11.6 [facility] Comment on above: Performed By: #### G CAPRICE #### Point of Care testing , Glucose Poct Glucometerson 0 08-03-2022 Glucose [Mass/Vol] 144 mg/dL Normal [facility] Comment on above: Result Comment: [place] Glucose Reference Range is dependent on time and content of last meal. Glucose of more than 200 mg/dL in a nonstressed, ambulatory subject supports the diagnosis of Diabetes Mellitus. PERFORMED BY: [place] [address] PATHOLOGIST RETAIL PROPERTY MANAGER DANII HAYNES M.D. Performed By: #### C MP #### [address] Commemt1 Glu2: Cleaned Meter Normal [facility] Comment on above: Result Comment: PERF ORMED BY: [place] [address] PATHOLOGIST RETAIL PROPERTY MANAGER DANII HAYNES M.D. Performed By: #### C MP #### [address] Glucose [Mass/Vol] 175 mg/dL Normal [facility] Comment on above: Result Comment: [place] Glucose Reference Range is dependent on time and content of last meal. Glucose of more than 200 mg/dL in a nonstressed, ambulatory subject supports the diagnosis of Diabetes Mellitus. Performed By: #### C MP #### [address] Complete Blood Count Auto Di ffon 08-02-2022 Basophils (Bld) [#/Vol] 0.1 10*3/uL Normal 0.0-0.2 [facility] Comment on above: Result Comment: PERF ORMED BY: [place] [address] PATHOLOGIST RETAIL PROPERTY MANAGER DANII HAYNES M.D. Performed By: #### C BC #### [address] Basophils/100 WBC (Bld) 0.7 % Normal . [facility] Comment on above: Performed By: #### C BC #### [address] Eosinophils (Bld) [#/Vol] 0.2 10*3/uL Normal 0.0-0.45 [facility] Comment on above: Performed By: #### C BC #### [address] Eosinophils/100 WBC (Bld) 1.7 % Normal . [facility] Comment on above: Performed By: #### C BC #### [address] Erythrocyte distribution width (RBC) [Ratio] 15.3 % Normal 11.9-15.3 [facility] Comment on above: Performed By: #### C BC #### [address] Hematocrit (Bld) [Volume fraction] 27.4 % Low 34.0-46.4 [facility] Comment on above: Performed By: #### C BC #### [address] Hemoglobin (Bld) [Mass/Vol] 8.8 g/dL Low 11.8-15.4 [facility] Comment on above: Performed By: #### C BC #### [address] Lymphocytes (Bld) [#/Vol] 2.0 10*3/uL Normal 1.00-4.8 [facility] Comment on above: Performed By: #### C BC #### [address] Lymphocytes/100 WBC (Bld) 16.7 % Normal . [facility] Comment on above: Performed By: #### C BC #### [address] MCH (RBC) [Entitic mass] 29.3 pg Normal 24.7-34.3 [facility] Comment on above: Performed By: #### C BC #### [address] MCV (RBC) [Entitic vol] 91.8 fL Normal 80-100 [facility] Comment on above: Performed By: #### C BC #### [address] Mean Corpuscular HGB Conc 32.0 g/dL Normal 32.0-35.0 [facility] Comment on above: Performed By: #### C BC #### [address] Monocytes (Bld) [#/Vol] 0.8 10*3/uL Normal 0.0-0.8 [facility] Comment on above: Performed By: #### C BC #### [address] Monocytes/100 WBC (Bld) 7.1 % Normal . [facility] Comment on above: Performed By: #### C BC #### [address] Neutrophils (Bld) [#/Vol] 8.6 10*3/uL High 1.8-7.7 [facility] Comment on above: Performed By: #### C BC #### [address] Neutrophils/100 WBC (Bld) 73.8 % Normal . [facility] Comment on above: Performed By: #### C BC #### [place] [address] [place] NRBC% 0.0 /100{WBC} Normal 0-0.5 [facility] Comment on above: Performed By: #### C BC #### [address] Platelet mean volume (Bld) [Entitic vol] 8.2 fL Normal 6.3-10.7 [facility] Comment on above: Performed By: #### C BC #### [address] Platelets (Bld) [#/Vol] 145 10*3/uL Low 150-450 [facility] Comment on above: Performed By: #### C BC #### [address] RBC (Bld) [#/Vol] 2.98 10*6/uL Low 3.60-5.00 [facility] Comment on above: Performed By: #### C BC #### [address] WBC (Bld) [#/Vol] 11.7 10*3/uL High 3.8-11.6 [facility] Comment on above: Performed By: #### C BC #### [address] Comprehensive Metabolic Pane tamika 08-02-2022 Albumin [Mass/Vol] 3.0 g/dL Low 3.5-5.[address] [facility] Comment on above: Performed By: #### C MP #### [address] Albumin/Globulin [Mass ratio] 0.7 {ratio} Normal [facility] Comment on above: Performed By: #### C MP #### [address] ALP [Catalytic activity/Vol] 101 U/L Normal 34-104 [facility] Comment on above: Performed By: #### C MP #### [address] ALT [Catalytic activity/Vol] 18 U/L Normal 7-52 [facility] Comment on above: Performed By: #### C MP #### [facility] [address] Anion gap [Moles/Vol] 14.2 mmol/L Normal 6.0-15.0 [facility] Comment on above: Performed By: #### C MP #### [facility] [address] AST [Catalytic activity/Vol] 19 U/L Normal 13-39 [facility] Comment on above: Performed By: #### C MP #### [facility] [address] Bilirubin [Mass/Vol] 0.5 mg/dL Normal 0.3-1.0 [facility] Comment on above: Performed By: #### C MP #### [facility] [address] [place] [address] Calcium [Mass/Vol] 7.6 mg/dL Low 8.6-10.[address] [facility] Comment on above: Performed By: #### C MP #### [facility] [address] Chloride [Moles/Vol] 98 mmol/L Normal 98-107 [facility] Comment on above: Performed By: #### C MP #### [address] CO2 [Moles/Vol] 25.4 mmol/L Normal 21.0-31.0 [facility] Comment on above: Performed By: #### C MP #### [facility] [facility] [address] Creatinine [Mass/Vol] 6.16 mg/dL Significan t change up 0.60-1.20 [facility] Comment on above: Performed By: #### C MP #### [address] Creatinine Clr Calc Pharmacy 9.83 Normal [facility] Comment on above: Result Comment: PERF ORMED BY: [place] [address] PATHOLOGIST RETAIL PROPERTY MANAGER DANII HAYNES M.D. Performed By: #### C MP #### [place] [address] [place] GFR/1.73 sq M.predicted MDRD (S/P/Bld) [Vol rate/Area] 6.755 mL/min/{1.73_m2} [facility] Comment on above: Performed By: #### C MP #### [address] Globulin (S) [Mass/Vol] 4.5 g/dL [facility] Comment on above: Performed By: #### C MP #### [address] Glucose [Mass/Vol] 165 mg/dL High 70-[address] [facility] Comment on above: Result Comment: [place] Glucose Reference Range is dependent on time and content of last meal. Glucose of more than 200 mg/dL in a nonstressed, ambulatory subject supports the diagnosis of Diabetes Mellitus. ADA recommended reference range Performed By: #### C MP #### [address] Potassium [Moles/Vol] 4.6 mmol/L Normal 3.5-5.1 [facility] Comment on above: Performed By: #### C MP #### [address] Protein [Mass/Vol] 7.5 g/dL Normal 6.4-8.[address] [facility] Comment on above: Performed By: #### C MP #### [place] [address] [place] Sodium [Moles/Vol] 133 mmol/L Low 136-[address] [facility] Comment on above: Performed By: #### C MP #### [address] Urea nitrogen [Mass/Vol] 47 mg/dL High 7-25 [facility] Comment on above: Performed By: #### C MP #### [address] [place] [address] [facility] Glucose Poct Glucometerson 0 08-02-2022 Glucose [Mass/Vol] 180 mg/dL Normal [facility] Comment on above: Result Comment: [facility] Glucose Reference Range is dependent on time and content of last meal. Glucose of more than 200 mg/dL in a nonstressed, ambulatory subject supports the diagnosis of Diabetes Mellitus. PERFORMED BY: [place] [address] PATHOLOGIST RETAIL PROPERTY MANAGER DANII HAYNES M.D. Performed By: #### G LULS #### Point of Care testing , Glucose [Mass/Vol] 166 mg/dL Normal [facility] Comment on above: Result Comment: [facility] Glucose Reference Range is dependent on time and content of last meal. Glucose of more than 200 mg/dL in a nonstressed, ambulatory subject supports the diagnosis of Diabetes Mellitus. PERFORMED BY: [place] [address] PATHOLOGIST RETAIL PROPERTY MANAGER DANII HAYNES M.D. Performed By: #### B MP, CBC #### [address] Glucose [Mass/Vol] 118 mg/dL Normal [facility] Comment on above: Result Comment: [facility] Glucose Reference Range is dependent on time and content of last meal. Glucose of more than 200 mg/dL in a nonstressed, ambulatory subject supports the diagnosis of Diabetes Mellitus. PERFORMED BY: [place] [address] PATHOLOGIST RETAIL PROPERTY MANAGER DANII HAYNES M.D. Performed By: #### G LULS #### Point of Care testing , Basic Metabolic Panelon 04- Anion gap [Moles/Vol] 16.7 mmol/L High 6.0-15.0 [facility] Comment on above: Performed By: #### B MP, CBC #### [address] Calcium [Mass/Vol] 8.2 mg/dL Low 8.6-10.[address] [facility] Comment on above: Performed By: #### B MP, CBC #### [facility] [address] [place] [address] [place] Chloride [Moles/Vol] 99 mmol/L Normal 98-107 [facility] Comment on above: Performed By: #### B MP, CBC #### [facility] [address] [place] [address] [place] CO2 [Moles/Vol] 22.6 mmol/L Normal 21.0-31.0 [facility] Comment on above: Performed By: #### B MP, CBC #### [facility] [address] Creatinine [Mass/Vol] 4.98 mg/dL Significan t change up 0.60-1.20 [facility] Comment on above: Performed By: #### B MP, CBC #### [facility] [address] Creatinine Clr Calc Pharmacy 11.87 Normal [facility] Comment on above: Result Comment: PERF ORMED BY: [place] [address] PATHOLOGIST RETAIL PROPERTY MANAGER DANII HAYNES M.D. Performed By: #### B MP, CBC #### [facility] [address] [place] [address] [place] GFR/1.73 sq M.predicted MDRD (S/P/Bld) [Vol rate/Area] 8.719 mL/min/{1.73_m2} Normal [facility] Comment on above: Performed By: #### B MP, CBC #### [facility] [address] [place] [address] [place] Glucose [Mass/Vol] 129 mg/dL High 70-[address] [facility] Comment on above: Result Comment: [place] Glucose Reference Range is dependent on time and content of last meal. Glucose of more than 200 mg/dL in a nonstressed, ambulatory subject supports the diagnosis of Diabetes Mellitus. ADA recommended reference range Performed By: #### B MP, CBC #### [facility] [address] Potassium [Moles/Vol] 4.3 mmol/L Normal 3.5-5.1 [facility] Comment on above: Performed By: #### B MP, CBC #### [address] Sodium [Moles/Vol] 134 mmol/L Low 136-[address] [facility] Comment on above: Performed By: #### B MP, CBC #### [facility] [address] Urea nitrogen [Mass/Vol] 37 mg/dL High 7-25 [facility] Comment on above: Performed By: #### B MP, CBC #### [address] Blood Cultureon 08-01-2022 Bacteria identified Cx Nom (Bld) Gram stain results called at 1517 on 08/02/22 Gram Stain Gram Positive Cocci in Clusters ORGANISM: Staphylococcus epidermidis (O:STAEPI) Organism Comments For MARIANNE Refer to Final Report of Blood Culture Collected Date 08/01/22 PERFORMED BY: [place] [address] PATHOLOGIST [employer]ERTY MANAGER DANII HAYNES M.D. [facility] Comment on above: Performed By: [...] culture Not detected Group A (Streptococcus pyogenes) [id number] Not detected Group B Strep (Streptococcus agalactiae) [...] indicate anti (more content not included)... Normal [facility] Comment on above: Performed By: #### G LULS #### Point of Care testing , Complete Blood Count Auto Di ffon 08-01-2022 Basophils (Bld) [#/Vol] 0.1 10*3/uL Normal 0.0-0.2 [facility] Comment on above: Result Comment: PERF ORMED BY: [place] [address] PATHOLOGIST [employer] MANAGER DANII HAYNES M.D. Performed By: #### B MP, CBC #### [facility] [address] [place] [address] Basophils/100 WBC (Bld) 0.3 % Normal . [facility] Comment on above: Performed By: #### B MP, CBC #### [facility] [address] [place] [address] [place] Eosinophils (Bld) [#/Vol] 0.2 10*3/uL Normal 0.0-0.45 [facility] Comment on above: Performed By: #### B MP, CBC #### [facility] [address] Eosinophils/100 WBC (Bld) 1.1 % Normal . [facility] Comment on above: Performed By: #### B MP, CBC #### [address] Erythrocyte distribution width (RBC) [Ratio] 15.2 % Normal 11.9-15.3 [facility] Comment on above: Performed By: #### B MP, CBC #### [address] Hematocrit (Bld) [Volume fraction] 28.8 % Low 34.0-46.4 [facility] Comment on above: Performed By: #### B MP, CBC #### [address] Hemoglobin (Bld) [Mass/Vol] 9.1 g/dL Low 11.8-15.4 [facility] Comment on above: Performed By: #### B MP, CBC #### [place] [address] [place] Lymphocytes (Bld) [#/Vol] 2.0 10*3/uL Normal 1.00-4.8 [facility] Comment on above: Performed By: #### B MP, CBC #### [place] [address] [place] Lymphocytes/100 WBC (Bld) 12.7 % Normal . [facility] Comment on above: Performed By: #### B MP, CBC #### [address] MCH (RBC) [Entitic mass] 29.1 pg Normal 24.7-34.3 [facility] Comment on above: Performed By: #### B MP, CBC #### [place] [address] MCV (RBC) [Entitic vol] 92.0 fL Normal 80-100 [facility] Comment on above: Performed By: #### B MP, CBC #### [address] Mean Corpuscular HGB Conc 31.6 g/dL Low 32.0-35.0 [facility] Comment on above: Performed By: #### B MP, CBC #### [address] Monocytes (Bld) [#/Vol] 1.5 10*3/uL High 0.0-0.8 [facility] Comment on above: Performed By: #### B MP, CBC #### [address] Monocytes/100 WBC (Bld) 9.3 % Normal . [facility] Comment on above: Performed By: #### B MP, CBC #### [address] Neutrophils (Bld) [#/Vol] 11.9 10*3/uL High 1.8-7.7 [facility] Comment on above: Performed By: #### B MP, CBC #### [address] Neutrophils/100 WBC (Bld) 76.6 % Normal . [facility] Comment on above: Performed By: #### B MP, CBC #### [address] NRBC% 0.0 /100{WBC} Normal 0-0.5 [facility] Comment on above: Performed By: #### B MP, CBC #### [address] Platelet mean volume (Bld) [Entitic vol] 8.6 fL Normal 6.3-10.7 [facility] Comment on above: Performed By: #### B MP, CBC #### [address] Platelets (Bld) [#/Vol] 123 10*3/uL Significant change down 150-450 [facility] Comment on above: Performed By: #### B MP, CBC #### [facility] [address] RBC (Bld) [#/Vol] 3.13 10*6/uL Low 3.60-5.00 [facility] Comment on above: Performed By: #### B MP, CBC #### [facility] [address] WBC (Bld) [#/Vol] 15.6 10*3/uL High 3.8-11.6 [facility] Comment on above: Performed By: #### B MP, CBC #### [address] ECG 12 lead ECGon 08-01-2022 ECG 12 lead ECG [facility] Main [place] [address] [place] [address] Electrocardiograph Report Signed Patient: Amparo Castorena MR#: [id number] 68 : 1950 Acct:[id number] Age/Sex: 71 / F ADM Date: 08/02/22 Loc: Room: [address] [place] [address] Type: ADM IN Attending Dr: Yash Ortega [...] When compared with ECG of 31-JUL-2022 15:08, [place] interval has increased Confirmed by GERTRUDE STRICKLAND FACSCAR Meier ([id number]) on 08/03/2022 10:28:47 AM Referred By: Electronically Signed By:SCAR LOREDO MD FACC Transcribed By: MUS Signed By Juan Loredo MD 08/03/22 1028 Normal [facility] echo transthoracicon [facility] echo transthoracic [facility] Main [place] [address] [place], [place] [id number] Echocardiogram Signed Patient: Amparo Castorena MR#: [id number] 68 : 1950 Acct:[id number] Age/Sex: 71 / F ADM Date: 07/31/22 Loc: Room: [address] [place] [address] Type: ADM IN Attending Dr: Yash Ortega MD Ordering Provider: Yash Ortega MD Date of Service: 08/01/2212/17/951 [facility] tran[facility]: chest pain Copies to: MD Yash Arndt MD BSA: 2.1 m2 BP: 138/76 mmHg HR: 80 Reason For Study: chest pain History: CKD, CVA, DM, HTN, HLD, GA, PVD, stents Interpretation Summary Ejection Fraction = [...] By: Danii Rodriguez MD 08/01/22 1334 Normal [facility] Glucose Poct Glucometerson 0 08-01-2022 Glucose [Mass/Vol] 159 mg/dL Normal [facility] Comment on above: Result Comment: [facility] Glucose Reference Range is dependent on time and content of last meal. Glucose of more than 200 mg/dL in a nonstressed, ambulatory subject supports the diagnosis of Diabetes Mellitus. PERFORMED BY: [place] [phone] PATHOLOGIST RET[employer]ERTY MANAGER DANII HAYNES M.D. Performed By: #### C MP #### [facility] [address] [place] [address] Glucose [Mass/Vol] 114 mg/dL Normal [facility] Comment on above: Result Comment: [facility] Glucose Reference Range is dependent on time and content of last meal. Glucose of more than 200 mg/dL in a nonstressed, ambulatory subject supports the diagnosis of Diabetes Mellitus. PERFORMED BY: [place] [address] PATHOLOGIST RETAIL PROPERTY MANAGER DANII HAYNES M.D. Performed By: #### B MP, CBC #### [facility] [address] [place] [address] [place] Glucose [Mass/Vol] 170 mg/dL Normal [facility] Comment on above: Result Comment: [place] om Glucose Reference Range is dependent on time and content of last meal. Glucose of more than 200 mg/dL in a nonstressed, ambulatory subject supports the diagnosis of Diabetes Mellitus. PERFORMED BY: [place] [address] PATHOLOGIST RETAIL PROPERTY MANAGER DANII HAYNES M.D. Performed By: #### C MP #### [address] Glucose [Mass/Vol] 152 mg/dL Normal [facility] Comment on above: Result Comment: [place] om Glucose Reference Range is dependent on time and content of last meal. Glucose of more than 200 mg/dL in a nonstressed, ambulatory subject supports the diagnosis of Diabetes Mellitus. PERFORMED BY: [place] [address] PATHOLOGIST RETAIL PROPERTY MANAGER DANII HAYNES M.D. Performed By: #### G LULS #### Point of Care testing , Glucose [Mass/Vol] 123 mg/dL Normal [facility] Comment on above: Result Comment: [place] om Glucose Reference Range is dependent on time and content of last meal. Glucose of more than 200 mg/dL in a nonstressed, ambulatory subject supports the diagnosis of Diabetes Mellitus. PERFORMED BY: [place] [address] PATHOLOGIST RETAIL PROPERTY MANAGER DANII HAYNES M.D. Performed By: #### G [...] in HDL [Mass/Vol] 32 mg/dL Low 35-85 [facility] Comment on above: Result Comment: HDL CHOL ATP-III CLASSIFICATION Cardiovascular Risk HDL > or equal to 60 mg/dL LOW HDL < 40 mg/dL HIGH Performed By: #### G LULS #### Point of Care testing , Cholesterol.total/Chol esterol in HDL [Mass ratio] 3.3 {ratio} Normal <5.0 [facility] Comment on above: Result Comment: PERF ORMED BY: [facility] [address] [place] [address] PATHOLOGIST RETAIL PROPERTY MANAGER DANII HAYNES M.D. Performed By: #### G LULS #### Point of Care testing , LDL Cholesterol,Calculated 45 mg/dL Normal 0-100 [facility] Comment on above: Result Comment: LDL ATP III CLASSIFICATION LDL less than 100 mg/dL Optimal LDL 100-129 mg/dL Near or above optimal LDL 130-159 mg/dL Borderline high LDL 160-189 mg/dL High LDL greater than 189 mg/dL Very high Performed By: #### G LULS #### Point of Care testing , Triglyceride w/Reflex 140 mg/dL Normal 0-149 [facility] Comment on above: Result Comment: TRIG ATP III CLASSIFICATION TRIG less than 150 mg/dL Normal TRIG 150-199 mg/dL Borderline high TRIG 200-500 mg/dL High TRIG greater than 500 mg/dL Very high Standard traceable to the Center for Disease Conrtrol and Prevention (CDC) test method. Performed By: #### G LULS #### Point of Care testing , VLDL CHOLESTEROL 28 mg/dL Normal [facility] Comment on above: Performed By: #### G LULS #### Point of Care testing , Troponin I High Sensitivityo n 08-01-2022 Troponin I High Sensitivity 11.3 pg/mL Normal 0.0-15.0 [facility] Comment on above: Result Comment: PERF ORMED BY: [facility] [address] [place] [address] PATHOLOGIST RETAIL PROPERTY MANAGER DANII HAYNES M.D. Performed By: #### G LULS #### Point of Care testing , Activated partial thrombopla stin time (aPTT) in platelet poor plasma by coagulation aOrdered By: Malcolm Moss on 07-31-2022 aPTT Coag (PPP) [Time] 28.0 s 25.1-36.5 [facility] Alanine aminotransferase [En zymatic activity/volume] in Serum or PlasmaOrdered By: Malcolm Moss on 07-31-2022 ALT [Catalytic activity/Vol] 24 U/L Normal 7-52 [facility] Comment on above: Performed By: #### G LULS #### Point of Care testing , Albumin [Mass/volume] in Ser um or Plasma by Bromocresol green (BCG) dye binding methoOrdered By: Malcolm Moss on 07-31-2022 Albumin BCG dye [Mass/Vol] 3.6 g/dL 3.5-5.7 [facility] Alkaline phosphatase [Enzyma tic activity/volume] in Serum or PlasmaOrdered By: Malcolm Moss on 07-31-2022 ALP [Catalytic activity/Vol] 124 U/L High 34-104 [facility] Comment on above: Performed By: #### G LULS #### Point of Care testing , Aspartate aminotransferase [ Enzymatic activity/volume] in Serum or PlasmaOrdered By: Malcolm Moss on 07-31-2022 AST [Catalytic activity/Vol] 22 U/L Normal 13-39 [facility] Comment on above: Performed By: #### G LULS #### Point of Care testing , Automated erythrocytes count in urine sediment (number/area)Ordered By: Malcolm Moss on 07-31-2022 RBC Auto (Urine sed) [#/Area] 50-100 [HPF] 0-4 [facility] Automated leukocytes count i n urine sediment (number/area)Ordered By: Malcolm Moss on 07-31-2022 WBC Auto (Urine sed) [#/Area] Innumerable [HPF] 0-4 [facility] Automated urine hyaline cast s count (number/volume)Ordered By: Malcolm Moss on 07-31-2022 Hyaline casts Auto (U) [#/Vol] 5-9 [LPF] 0-1 [facility] B-Type Natriuretic Peptideon 07-31-2022 Natriuretic peptide B (Bld) [Mass/Vol] 57.0 pg/mL Normal 5-100 [facility] Comment on above: Result Comment: PERF ORMED BY: [facility] [address] [place] [address] PATHOLOGIST RET[employer]ERTY MANAGER DANII HAYNES M.D. Performed By: #### G LULS #### Point of Care testing , Basic Metabolic Panelon Creatinine Clr Calc Pharmacy 14.63 Normal [facility] Comment on above: Performed By: #### G LULS #### Point of Care testing , GFR/1.73 sq M.predicted MDRD (S/P/Bld) [Vol rate/Area] 10.913 mL/min/{1.73_m2} Normal [facility] Comment on above: Performed By: #### G LULS #### Point of Care testing , Basophils Auto (Bld) [#/Vol] Ordered By: Malcolm Moss on 07-31-2022 Basophils (Bld) [#/Vol] 0.1 10*3/uL 0.0-0.2 [facility] Basophils/100 WBC Auto (Bld) Ordered By: Malcolm Moss on 07-31-2022 Basophils/100 WBC (Bld) 0.4 % . [facility] Bilirubin Auto test strip Ql (U)Ordered By: Malcolm Moss on 07-31-2022 Bilirubin Ql (U) Negative Negative [facility] Bilirubin.direct [Mass/volum e] in Serum or PlasmaOrdered By: Malcolm Moss on 07-31-2022 Bilirubin.direct [Mass/Vol] 0.10 mg/dL 0.03-0.18 [facility] Bilirubin.total [Mass/volume ] in Serum or PlasmaOrdered By: Malcolm Moss on 07-31-2022 Bilirubin [Mass/Vol] 0.6 mg/dL Normal 0.3-1.0 [facility] Comment on above: Performed By: #### G LULS #### Point of Care testing , CBC AUTO DIFFon 07-31-2022 BASO # 0.1 103/ul Normal 0.0-0.1 [facility] Comment on above: Performed By: #### U SUNITA, MG, RENAL #### [facility] [address] [place] [address] [address] Silver Harrison Basophils/100 WBC (Bld) 0.6 % Normal 0.2-2.0 [facility] Comment on above: Performed By: #### U SUNITA, MG, RENAL #### [facility] [address] [place] [address] [address] Silver Harrison EO # 0.3 103/ul Normal 0.0-0.7 [facility] Comment on above: Performed By: #### U SUNITA, MG, RENAL #### [facility] [address] [place] [address] Dr. Silver Harrison Eosinophils/100 WBC (Bld) 2.4 % Normal 0.9-7.0 [facility] Comment on above: Performed By: #### U SUNITA, MG, RENAL #### [facility] [address] [place] [address] Dr. Silver Harrison Erythrocyte distribution width (RBC) [Ratio] 14.1 % Normal 11.0-15.0 [facility] Comment on above: Performed By: #### U SUNITA, MG, RENAL #### [facility] [address] [place] [address] Dr. Silver Harrison Hematocrit (Bld) [Volume fraction] 33.7 % Critically low 36.0-48.0 [facility] Comment on above: Performed By: #### U SUNITA, MG, RENAL #### [facility] [address] [place] [address] Dr. Silver Harrison Hemoglobin (Bld) [Mass/Vol] 10.1 g/dL Critically low 12.0-16.0 [facility] Comment on above: Performed By: #### U SUNITA, MG, RENAL #### [facility] [address] [place] [address] Dr. Silver Harrison IG # 0.07 10e3/ul Critically high 0.00-0.03 [facility] Comment on above: Performed By: #### U SUNITA, MG, RENAL #### [facility] [address] [place] [address] Dr. Silver Harrison IG % 0.6 % Critically high 0.0-0.5 [facility] Comment on above: Performed By: #### U SUNITA, MG, RENAL #### [facility] [address] [place] [address] Dr. Silver Harrison LYMPH # 2.4 103/ul Normal 1.2-3.8 [facility] Comment on above: Performed By: #### U SUNITA, MG, RENAL #### [facility] [address] [place] [address] Dr. Silver Harrison Lymphocytes/100 WBC (Bld) 21.6 % Normal 20.5-60.0 [facility] Comment on above: Performed By: #### U SUNITA, MG, RENAL #### [facility] [address] [place] [address] Dr. Silver Harrison MANUAL DIFF REQ NO Normal [facility] Comment on above: Performed By: #### U SUNITA, MG, RENAL #### [facility] [address] [place] [address] Dr. Silver Harrison MCH (RBC) [Entitic mass] 28.6 pg Normal 26.7-34.0 [facility] Comment on above: Performed By: #### U SUNITA, MG, RENAL #### [facility] [address] [place] [address] Dr. Silver Harrison MCHC (RBC) [Mass/Vol] 30.0 g/dL Normal 29.9-35.2 [facility] Comment on above: Performed By: #### U SUNITA, MG, RENAL #### [facility] [address] [place] [address] Dr. Silver Harrison MCV (RBC) [Entitic vol] 95.5 fL Normal 81.0-99.0 [facility] Comment on above: Performed By: #### U SUNITA, MG, RENAL #### [facility] [address] [place] [address] Dr. Silver Harrison MONO # 0.8 103/ul Normal 0.3-0.8 [facility] Comment on above: Performed By: #### U SUNITA, MG, RENAL #### [facility] [address] [place] [address] Dr. Silver Harrison Monocytes/100 WBC (Bld) 7.1 % Normal 1.7-12.0 [facility] Comment on above: Performed By: #### U SUNITA, MG, RENAL #### [facility] [address] [address] [address] Silver Harrison NEUT # 7.4 103/ul Critically high 1.4-6.5 [facility] Comment on above: Performed By: #### U SUNITA, MG, RENAL #### [facility] [address] [address] [address] Silver Harrison Neutrophils/100 WBC (Bld) 67.7 % Normal 43.0-75.0 [facility] Comment on above: Performed By: #### U SUNITA, MG, RENAL #### [facility] [address] [address] [address] Silver Harrison Platelet mean volume (Bld) [Entitic vol] 10.2 fL Normal 9.5-13.5 [facility] Comment on above: Performed By: #### U SUNITA, MG, RENAL #### [facility] [address] [address] [address] Silver Harrison PLT 130 103/ul Critically low 150-450 [facility] Comment on above: Performed By: #### U SUNITA, MG, RENAL #### [facility] [address] [address] [address] Silver Harrison RBC 3.53 106/ul Critically low 4.20-5.40 [facility] Comment on above: Performed By: #### U SUNITA, MG, RENAL #### [facility] [address] [address] [address] Silver Harrison WBC 10.9 103/ul Normal 4.0-11.0 [facility] Comment on above: Performed By: #### U SUNITA, MG, RENAL #### [facility] [address] [address] [address] Silver Harrison Calcium [Mass/volume] in Ser um or PlasmaOrdered By: Malcolm Moss on 07-31-2022 Calcium [Mass/Vol] 8.3 mg/dL Low 8.6-10.[address] [facility] Comment on above: Performed By: #### G LULS #### Point of Care testing , Carbon dioxide, total [Moles /volume] in Serum or PlasmaOrdered By: Malcolm Moss on 07-31-2022 CO2 [Moles/Vol] 24.3 mmol/L Normal 21.0-31.0 [facility] Comment on above: Performed By: #### G LULS #### Point of Care testing , Casts typing in urine sedime nt by light microscopyOrdered By: Malcolm Moss on 07-31-2022 Casts LM Nom (Urine sed) N/A [facility] Chloride [Moles/volume] in S alida or PlasmaOrdered By: Malcolm Moss on 07-31-2022 Chloride [Moles/Vol] 98 mmol/L Normal 98-107 [facility] Comment on above: Performed By: #### G LULS #### Point of Care testing , Complete Blood Count Auto Di ffon 07-31-2022 Basophils (Bld) [#/Vol] 0.1 10*3/uL Normal 0.0-0.2 [facility] Comment on above: Result Comment: PERF ORMED BY: [facility] [address] [place] [address] PATHOLOGIST [employer] DANII HAYNES M.D. Performed By: #### G LULS #### Point of Care testing , Basophils/100 WBC (Bld) 0.4 % Normal . [facility] Comment on above: Performed By: #### G LULS #### Point of Care testing , Eosinophils (Bld) [#/Vol] 0.1 10*3/uL Normal 0.0-0.45 [facility] Comment on above: Performed By: #### G LULS #### Point of Care testing , Eosinophils/100 WBC (Bld) 0.5 % Normal . [facility] Comment on above: Performed By: #### G LULS #### Point of Care testing , Erythrocyte distribution width (RBC) [Ratio] 15.0 % Normal 11.9-15.3 [facility] Comment on above: Performed By: #### G LULS #### Point of Care testing , Hematocrit (Bld) [Volume fraction] 31.6 % Low 34.0-46.4 [facility] Comment on above: Performed By: #### G MARLOLS #### Point of Care testing , Hemoglobin (Bld) [Mass/Vol] 9.9 g/dL Low 11.8-15.4 [facility] Comment on above: Performed By: #### G MARLOLS #### Point of Care testing , Lymphocytes (Bld) [#/Vol] 1.3 10*3/uL Normal 1.00-4.8 [facility] Comment on above: Performed By: #### G MARLOLS #### Point of Care testing , Lymphocytes/100 WBC (Bld) 4.8 % Normal . [facility] Comment on above: Performed By: #### G MARLOLS #### Point of Care testing , MCH (RBC) [Entitic mass] 28.8 pg Normal 24.7-34.3 [facility] Comment on above: Performed By: #### G MARLOLS #### Point of Care testing , MCV (RBC) [Entitic vol] 91.7 fL Normal 80-100 [facility] Comment on above: Performed By: #### G CAPRICE #### Point of Care testing , Mean Corpuscular HGB Conc 31.4 g/dL Low 32.0-35.0 [facility] Comment on above: Performed By: #### G MARLOLS #### Point of Care testing , Monocytes (Bld) [#/Vol] 1.4 10*3/uL High 0.0-0.8 [facility] Comment on above: Performed By: #### G MARLOLS #### Point of Care testing , Monocytes/100 WBC (Bld) 20.48 % High 0.00-20.00 [facility] Comment on above: Result Comment: For adults in ED, MDW > 20.0 may be associated with a higher risk of sepsis during the first 12 hrs of hospital admission Performed By: #### G MARLOLS #### Point of Care testing , Monocytes/100 WBC (Bld) 5.1 % Normal . [facility] Comment on above: Performed By: #### G MARLOLS #### Point of Care testing , Neutrophils (Bld) [#/Vol] 24.2 10*3/uL High 1.8-7.7 [facility] Comment on above: Performed By: #### G CAPRICE #### Point of Care testing , Neutrophils/100 WBC (Bld) 89.2 % Normal . [facility] Comment on above: Performed By: #### G MARLOLS #### Point of Care testing , NRBC% 0.1 /100{WBC} Normal 0-0.5 [facility] Comment on above: Performed By: #### G MARLOLS #### Point of Care testing , Platelet mean volume (Bld) [Entitic vol] 8.4 fL Normal 6.3-10.7 [facility] Comment on above: Performed By: #### G MARLOLS #### Point of Care testing , Platelets (Bld) [#/Vol] 155 10*3/uL Normal 150-450 [facility] Comment on above: Performed By: #### G MARLOLS #### Point of Care testing , RBC (Bld) [#/Vol] 3.45 10*6/uL Low 3.60-5.00 [facility] Comment on above: Performed By: #### G CAPRICE #### Point of Care testing , WBC (Bld) [#/Vol] 27.0 10*3/uL High 3.8-11.6 [facility] Comment on above: Performed By: #### G CAPRICE #### Point of Care testing , Creatine Kinaseon 07-31-2022 Creatine Kinase Normal [facility] Comment on above: Result Comment: Spec imen hemolyzed, redraw requested Performed By: #### G CAPRICE #### Point of Care testing , Creatine kinase [Enzymatic a ctivity/volume] in Serum or PlasmaOrdered By: Malcolm Moss on 07-31-2022 CK [Catalytic activity/Vol] 70 U/L [facility] Creatinine [Mass/volume] in Serum or PlasmaOrdered By: Malcolm Moss on 07-31-2022 Creatinine [Mass/Vol] 4.13 mg/dL High 0.60-1.20 [facility] Comment on above: Performed By: #### G LULS #### Point of Care testing , Dipstick and Microscopicon 0 07-31-2022 Bacteria,Urine 3+ High None Seen [facility] Comment on above: Order Comment: Name Collection Type:: Straight Catheter Performed By: #### G LULS #### Point of Care testing , Bilirubin,Urine Negative Normal Negative [facility] Comment on above: Order Comment: Name Collection Type:: Straight Catheter Performed By: #### G LULS #### Point of Care testing , Glucose Ql (U) Normal Normal Normal [facility] Comment on above: Order Comment: Name Collection Type:: Straight Catheter Performed By: #### G LULS #### Point of Care testing , Hyaline Casts,Urine 5-9 High 0-1 [facility] Comment on above: Order Comment: Name Collection Type:: Straight Catheter Result Comment: PERF ORMED BY: [address] [place] [address] PATHOLOGIST [employer] DANII HAYNES M.D. Performed By: #### G LULS #### Point of Care testing , Ketones Ql (U) Negative Normal Negative [facility] Comment on above: Order Comment: Name Collection Type:: Straight Catheter Performed By: #### G LULS #### Point of Care testing , Leukocyte esterase Test strip Ql (U) 4+ High Negative [facility] Comment on above: Order Comment: Name Collection Type:: Straight Catheter Performed By: #### G LULS #### Point of Care testing , Nitrite,Urine Negative Normal Negative [facility] Comment on above: Order Comment: Name Collection Type:: Straight Catheter Performed By: #### G LULS #### Point of Care testing , Occult Blood,Urine 3+ High Negative [facility] Comment on above: Order Comment: Name Collection Type:: Straight Catheter Result Comment: PERF ORMED BY: [facility] [address] [place] [address] PATHOLOGIST [employer]NA[employer] DANII HAYNES M.D. Performed By: #### G LULS #### Point of Care testing , Protein,Urine >=300 High Negative [facility] Comment on above: Order Comment: Name Collection Type:: Straight Catheter Performed By: #### G LULS #### Point of Care testing , RBC,Urine 50-100 High 0-4 [facility] Comment on above: Order Comment: Name Collection Type:: Straight Catheter Performed By: #### G LULS #### Point of Care testing , Specificy Embarrass,Urine 1.020 Normal 1.001-1.03 0 [facility] Comment on above: Order Comment: Name Collection Type:: Straight Catheter Performed By: #### G LULS #### Point of Care testing , Squamous Epithelial Cell,Urine 10-19 High 0-2 [facility] Comment on above: Order Comment: Name Collection Type:: Straight Catheter Performed By: #### G LULS #### Point of Care testing , Urobilinogen,Urine Normal Normal Normal [facility] Comment on above: Order Comment: Name Collection Type:: Straight Catheter Performed By: #### G LULS #### Point of Care testing , WBC,Urine Innumerable High 0-4 [facility] Comment on above: Order Comment: Name Collection Type:: Straight Catheter Performed By: #### G LULS #### Point of Care testing , ECG 12 lead ECGon 07-31-2022 ECG 12 lead ECG [facility] [place] [address] Electrocardiograph Report Signed Patient: Amparo Castorena MR#: [id number] 68 : 1950 Acct:[id number] Age/Sex: 71 / F ADM Date: 07/31/22 Loc: ER Room: Type: [facility] ER Attending Dr: Ordering Provider: Malcolm [...] Prolonged QT Confirmed by Piyush Bell DO ([id number]) on 07/31/2022 4:05:21 PM Referred By: Electronically Signed By:Piyush Bell DO Transcribed By: MUS Signed By Piyush Bell DO [id number] Normal [facility] Eosinophils Auto (Bld) [#/Vo l]Ordered By: Malcolm Moss on 07-31-2022 Eosinophils (Bld) [#/Vol] 0.1 10*3/uL 0.0-0.45 [facility] Eosinophils/100 WBC Auto (Bl d)Ordered By: Malcolm Moss on 07-31-2022 Eosinophils/100 WBC (Bld) 0.5 % . [facility] Erythrocyte distribution wid th Auto (RBC) [Ratio]Ordered By: Malcolm Moss on 07-31-2022 Erythrocyte distribution width (RBC) [Ratio] 15.0 % 11.9-15.3 [facility] Glucose [Mass/volume] in Ser um or PlasmaOrdered By: Malcolm Moss on 07-31-2022 Glucose [Mass/Vol] 183 mg/dL High 70-[address] [facility] Comment on above: ADA recommended refe rence rangeRandom Glucose Reference Range is dependent on time and content of last meal. Glucose of more than 200 mg/dL in a nonstressed, ambulatory subject supports the diagnosis of Diabetes Mellitus. Result Comment: [place] om Glucose Reference Range is dependent on time and content of last meal. Glucose of more than 200 mg/dL in a nonstressed, ambulatory subject supports the diagnosis of Diabetes Mellitus. ADA recommended reference range Performed By: #### G LULS #### Point of Care testing , Hematocrit Auto (Bld) [Volum e fraction]Ordered By: Malcolm Moss on 07-31-2022 Hematocrit (Bld) [Volume fraction] 31.6 % 34.0-46.4 [facility] Hemoglobin [Mass/volume] in BloodOrdered By: Malcolm Moss on 07-31-2022 Hemoglobin (Bld) [Mass/Vol] 9.9 g/dL 11.8-15.4 [facility] Hepatic Panelon 07-31-2022 Albumin [Mass/Vol] 3.6 g/dL Normal 3.5-5.[address] [facility] Comment on above: Performed By: #### G LULS #### Point of Care testing , Bilirubin,Indirect 0.5 mg/dL Normal [facility] Comment on above: Performed By: #### G LULS #### Point of Care testing , Bilirubin.indirect [Mass/Vol] 0.10 mg/dL Normal 0.03-0.18 [facility] Comment on above: Performed By: #### G LULS #### Point of Care testing , Ketones Auto test strip (U) [Mass/Vol]Ordered By: Malcolm Moss on 07-31-2022 Ketones (U) [Mass/Vol] Negative Negative [facility] - CoagulationOrde red By: Malcolm Moss on 07-31-2022 PT Coag (PPP) [Time] 12.3 s 9.0-12.9 [facility] Leukocytes [#/volume] correc mary jo for nucleated erythrocytes in Blood by Automated counOrdered By: Malcolm Moss on 07-31-2022 WBC corrected for nucl RBC Auto (Bld) [#/Vol] 27.0 10*3/uL 3.8-11.6 [facility] Lipase [Enzymatic activity/v olume] in Serum or PlasmaOrdered By: Malcolm Moss on 07-31-2022 Lipase [Catalytic activity/Vol] 36.0 U/L Normal 11.0-82.0 [facility] Comment on above: Result Comment: PERF ORMED BY: [facility] [address] [place] [address] PATHOLOGIST [employer]NA[employer] DANII HAYNES M.D. Performed By: #### G LULS #### Point of Care testing , Lymphocytes Auto (Bld) [#/Vo l]Ordered By: Malcolm Moss on 07-31-2022 Lymphocytes (Bld) [#/Vol] 1.3 10*3/uL 1.00-4.8 [facility] Lymphocytes/100 WBC Auto (Bl d)Ordered By: Malcolm Moss on 07-31-2022 Lymphocytes/100 WBC (Bld) 4.8 % . [facility] MCH Auto (RBC) [Entitic mass ]Ordered By: Malcolm Moss on 07-31-2022 MCH (RBC) [Entitic mass] 28.8 pg 24.7-34.3 [facility] MCHC Auto (RBC) [Mass/Vol]Or dered By: Malcolm Moss on 07-31-2022 MCHC (RBC) [Mass/Vol] 31.4 g/dL 32.0-35.0 [facility] MCV Auto (RBC) [Entitic vol] Ordered By: Malcolm Moss on 07-31-2022 MCV (RBC) [Entitic vol] 91.7 fL 80-100 [facility] Monocyte distribution width [Entitic volume] in Blood by AutomatedOrdered By: Malcolm Moss on 07-31-2022 Monocyte distribution width Auto (Bld) [Entitic vol] 20.48 % 0.00-20.00 [facility] Comment on above: For adults in ED, MD W > 20.0 may be associated with a higher risk of sepsis during the first 12 hrs of hospital admission Monocytes Auto (Bld) [#/Vol] Ordered By: Malcolm Moss on 07-31-2022 Monocytes (Bld) [#/Vol] 1.4 10*3/uL 0.0-0.8 [facility] Monocytes/100 WBC Auto (Bld) Ordered By: Malcolm Moss on 07-31-2022 Monocytes/100 WBC (Bld) 5.1 % . [facility] Natriuretic peptide B [Mass/ Vol]Ordered By: Malcolm Moss on 07-31-2022 Natriuretic peptide B (Bld) [Mass/Vol] 57.0 pg/mL 5-100 [facility] Neutrophils Auto (Bld) [#/Vo l]Ordered By: Malcolm Moss on 07-31-2022 Neutrophils (Bld) [#/Vol] 24.2 10*3/uL 1.8-7.7 [facility] Neutrophils/100 WBC Auto (Bl d)Ordered By: Malcolm Moss on 07-31-2022 Neutrophils/100 WBC (Bld) 89.2 % . [facility] No Panel InformationOrdered By: Malcolm Moss on 07-31-2022 Estimated GFR (CKD-EPI) 10.913 mL/Min [facility] Creatinine Clearance (Chem 14.63 [facility] Nucleated erythrocytes [Pres ence] in Blood by Automated countOrdered By: Malcolm Moss on 07-31-2022 Nucleated RBC Auto Ql (Bld) 0.1 /100{WBC} 0-0.5 [facility] PHOSPHORUSon 07-31-2022 Phosphate [Mass/Vol] 5.3 mg/dL Critically high 2.6-4.7 [facility] Comment on above: Performed By: #### B MP #### [facility] [address] [place] [address] Dr. Silver Harrison PROF CHEM 8 (BAS METB)on Anion gap [Moles/Vol] 11.8 mmol/L Normal [facility] Comment on above: Performed By: #### B MP #### [facility] [address] [place] [address] Dr. Silver Harrison Calcium [Mass/Vol] 8.4 mg/dL Critically low 8.5-10.1 [facility] Comment on above: Performed By: #### B MP #### [facility] [address] [address] [address] Silver Harrison Chloride [Moles/Vol] 99 mmol/L Normal 98-107 [facility] Comment on above: Performed By: #### B MP #### [facility] [address] [address] [address] Silver Harrison CO2 [Moles/Vol] 27.9 mmol/L Normal 21.0-32.0 [facility] Comment on above: Performed By: #### B MP #### [facility] [address] [address] [address] Silver Harrison Creatinine [Mass/Vol] 4.81 mg/dL Critically high 0.55-1.02 [facility] Comment on above: Performed By: #### B MP #### [facility] [address] [address] [address] Silver Harrison EGFR-AF AFGHAN 11 mL/min/1.73m2 Critically low >=60 [facility] Comment on above: Performed By: #### B MP #### [facility] [address] [place], [place] [address] Dr. Silver Harrison EGFR-NON AF AFGHAN 9 mL/min/1.73m2 Critically low >=60 [facility] Comment on above: Performed By: #### B MP #### [facility] [address] [address] [address] Silver Harrison Glucose [Mass/Vol] 114 mg/dL Critically high 74-106 T [facility] Comment on above: Performed By: #### B MP #### [facility] [address] [address] [address] Silver Harrison Potassium [Moles/Vol] 3.7 mmol/L Normal 3.5-5.1 [facility] Comment on above: Performed By: #### B MP #### [facility] [address] [address] [address] Silver Harrison Sodium [Moles/Vol] 135 mmol/L Critically low 136-145 [facility] Comment on above: Performed By: #### B MP #### [facility] [address] [address] [address] Silver Harrison Urea nitrogen [Mass/Vol] 33.0 mg/dL Critically high 7.0-18.0 [facility] Comment on above: Performed By: #### B MP #### [facility] [address] [address] [address] Silver Harrison Urea nitrogen/Creatinine [Mass ratio] 6.9 mg/mg Normal [facility] Comment on above: Performed By: #### B MP #### [facility] [address] [address] [address] Silver Harrison Partial Thromboplastin Timeo n 07-31-2022 aPTT Coag (Bld) [Time] 28.0 s Normal 25.1-36.5 [facility] Comment on above: Result Comment: PERF ORMED BY: [facility] [address] [place] [address] PATHOLOGIST [employer] DANII HAYNES M.D. Performed By: #### G LUMAMIE #### Point of Care testing , Platelet mean volume Auto (B ld) [Entitic vol]Ordered By: Malcolm Moss on 07-31-2022 Platelet mean volume (Bld) [Entitic vol] 8.4 fL 6.3-10.7 [facility] Platelet poor plasma interna tional normalized ratio (INR) by coagulation assay (relatOrdered By: Malcolm Moss on 07-31-2022 INR Coag (PPP) [Relative time] 1.1 {INR} [facility] Comment on above: INR Therapeutic [...] 07-31-2022 Platelets (Bld) [#/Vol] 155 10*3/uL 150-450 [facility] Potassium [Moles/volume] in Serum or PlasmaOrdered By: Malcolm Moss on 07-31-2022 Potassium [Moles/Vol] 4.3 mmol/L Normal 3.5-5.1 [facility] Comment on above: Performed By: #### G LULS #### Point of Care testing , Protein Auto test strip (U) [Mass/Vol]Ordered By: Malcolm Moss on 07-31-2022 Protein (U) [Mass/Vol] mg/dL Negative [facility] Protein [Mass/volume] in Ser um or PlasmaOrdered By: Malcolm Moss on 07-31-2022 Protein [Mass/Vol] 8.1 g/dL Normal 6.4-8.[address] [facility] Comment on above: Performed By: #### G LULS #### Point of Care testing , Prothrombin Time INRon 07-31 INR Coag (PPP) [Relative time] 1.1 {INR} Normal [facility] Comment on above: Result Comment: [...] Coag (PPP) [Time] 12.3 s Normal 9.0-12.9 [facility] Comment on above: Performed By: #### G LULS #### Point of Care testing , RBC Auto (Bld) [#/Vol]Ordere d By: Malcolm Moss on 07-31-2022 RBC (Bld) [#/Vol] 3.45 10*6/uL 3.60-5.00 [facility] Redraw CKon 07-31-2022 CK [Catalytic activity/Vol] 70 U/L Normal 30-223 [facility] Comment on above: Result Comment: PERF ORMED BY: [facility] [address] [place] [address] PATHOLOGIST [employer]NAGER DANII HAYNES M.D. Performed By: #### G MARLOLS #### Point of Care testing , Serum globulin measurement b y calculation (mass/volume)Ordered By: Malcolm Moss on 07-31-2022 Globulin (S) [Mass/Vol] 4.5 g/dL Normal [facility] Comment on above: Performed By: #### G MARLOLS #### Point of Care testing , Serum or plasma albumin/glob ulin mass ratioOrdered By: Malcolm Moss on 07-31-2022 Albumin/Globulin [Mass ratio] 0.8 {ratio} [facility] Comment on above: Performed By: [...] Moss on 07-31-2022 Bilirubin.indirect [Mass/Vol] 0.5 mg/dL [facility] Sodium [Moles/volume] in Ser um or PlasmaOrdered By: Malcolm Moss on 07-31-2022 Sodium [Moles/Vol] 134 mmol/L Low 136-[address] [facility] Comment on above: Performed By: #### G LULS #### Point of Care testing , Squamous epithelial cells de tection in urine sediment by light microscopyOrdered By: Malcolm Moss on 07-31-2022 Epithelial cells.squamous LM Ql (Urine sed) 10-19 [HPF] 0-2 [facility] Troponin I High Sensitivityo n 07-31-2022 Troponin I High Sensitivity 7.7 pg/mL Normal 0.0-15.0 [facility] Comment on above: Result Comment: PERF ORMED BY: [facility] [address] [place] [address] PATHOLOGIST [employer]NA[employer] DANII HAYNES M.D. Performed By: #### G LULS #### Point of Care testing , Troponin I.cardiac [Mass/vol ume] in Serum or Plasma by Detection limit <= 0.01 ng/Ordered By: Malcolm Moss on 07-31-2022 Troponin I.cardiac DL <= 0.01 ng/mL [Mass/Vol] 7.7 pg/mL 0.0-15.0 [facility] Urea nitrogen [Mass/volume] in Serum or PlasmaOrdered By: Malcolm Moss on 07-31-2022 Urea nitrogen [Mass/Vol] 26 mg/dL High 7-25 [facility] Comment on above: Performed By: #### G LULS #### Point of Care testing , Urine Cultureon 07-31-2022 Bacteria identified Cx Nom (U) ORGANISM: Escherichia coli (O:ESCCOL) [place] Count >100,000 Aerobic MARIANNE Charge (NMIC56) SUSCEPTIBILITY [...] RESISTANT TO ALL B-LACTAM DRUGS. PERFORMED BY: [address] [place] [address] PATHOLOGIST [employer]NAGER DANII HAYNES M.D. Normal [facility] Comment on above: Performed By: #### G LULS #### Point of Care testing , Urine appearanceOrdered By: Malcolm Moss on 07-31-2022 Appearance (U) Cloudy Critically abnormal Clear [facility] Comment on above: Order Comment: Name Collection Type:: Straight Catheter Performed By: #### G LULS #### Point of Care testing , Urine bacteria detection by automated methodOrdered By: Malcolm Moss on 07-31-2022 Bacteria Auto Ql (U) 3+ None Seen [facility] Urine colorOrdered By: Laura Moss on 07-31-2022 Color (U) Yellow Normal Yellow [facility] Comment on above: Order Comment: Name Collection Type:: Straight Catheter Performed By: #### G LULS #### Point of Care testing , Urine glucose measurement by automated test strip (mass/volume)Ordered By: Malcolm Moss on 07-31-2022 Glucose Auto test strip (U) [Mass/Vol] Normal mg/dL Normal [facility] Urine hemoglobin detection b y automated test stripOrdered By: Malcolm Moss on 07-31-2022 Hemoglobin Auto test strip Ql (U) 3+ Negative [facility] Urine leukocyte esterase det ection by automated test stripOrdered By: Malcolm Moss on 07-31-2022 Leukocyte esterase Auto test strip Ql (U) 4+ Negative [facility] Urine nitrite detection by a utomated test stripOrdered By: Malcolm Moss on 07-31-2022 Nitrite Auto test strip Ql (U) Negative Negative [facility] Urine pH measurement by auto mated test stripOrdered By: Malcolm Moss on 07-31-2022 pH (U) 6.0 [pH] Normal 5.0-9.0 [facility] Comment on above: Order Comment: Name Collection Type:: Straight Catheter Performed By: #### G LULS #### Point of Care testing , Urobilinogen Auto test strip (U) [Mass/Vol]Ordered By: Malcolm Moss on 07-31-2022 Urobilinogen (U) [Mass/Vol] Normal mg/dL Normal [facility] WBC Auto (Bld) [#/Vol]Ordere d By: Malcolm Moss on 07-31-2022 WBC (Bld) [#/Vol] 27.0 10*3/uL 3.8-11.6 [facility] XR chest 1V portableon 07-31 XR chest 1V portable [facility] [address] [place] [id number] XRay Report Signed Patient: Amparo Castorena MR#: [id number] 68 : 1950 Acct:[id number] Age/Sex: 71 / F ADM Date: 07/31/22 Loc: ER Room: Type: [facility] ER Attending Dr: Copies to: Malcolm [...] Wei Jr., DElaineOElaine07/31/2022 3:53 PM Dictation Location: [place] [address] Transcribed By: [facility] 07/31/221552 Dictated By: Dewayne Wei Jr, DO 07/31/221551 Signed By: 07/31/221552 Normal [facility] Yeast detection in urine sed iment by light microscopyOrdered By: Malcolm Moss on 07-31-2022 Yeast LM Ql (Urine sed) N/A [facility] pH Auto test strip (U)Ordere d By: Malcolm Moss on 07-31-2022 pH (U) 1.020 [pH] 1.001-1.03 0 [facility] CBC AUTO DIFFon 07-29-2022 BASO # 0.1 103/ul Normal 0.0-0.1 [facility] Comment on above: Performed By: #### U SUNITA, MG, RENAL #### [facility] [address] [address] [address] Silver Harrison Basophils/100 WBC (Bld) 0.6 % Normal 0.2-2.0 [facility] Comment on above: Performed By: #### U SUNITA, MG, RENAL #### [facility] [address] [address] [address] Silver Harrison EO # 0.1 103/ul Normal 0.0-0.7 [facility] Comment on above: Performed By: #### U SUNITA, MG, RENAL #### [facility] [address] [address] [address] Silver Harrison Eosinophils/100 WBC (Bld) 1.8 % Normal 0.9-7.0 [facility] Comment on above: Performed By: #### U SUNITA, MG, RENAL #### [facility] [address] [address] [address] Silver Harrison Erythrocyte distribution width (RBC) [Ratio] 13.2 % Normal 11.0-15.0 [facility] Comment on above: Performed By: #### U SUNITA, MG, RENAL #### [facility] [address] [place] [address] Dr. Silver Harrison Hematocrit (Bld) [Volume fraction] 45.2 % Normal 36.0-48.0 [facility] Comment on above: Performed By: #### U SUNITA, MG, RENAL #### [facility] [address] [place] [address] Dr. Silver Harrison Hemoglobin (Bld) [Mass/Vol] 15.3 g/dL Normal 12.0-16.0 [facility] Comment on above: Performed By: #### U SUNITA, MG, RENAL #### [facility] [address] [place] [address] Dr. Silver Harrison IG # 0.07 10e3/ul Critically high 0.00-0.03 [facility] Comment on above: Performed By: #### U SUNITA, MG, RENAL #### [facility] [address] [place] [address] Dr. Silver Harrison IG % 0.9 % Critically high 0.0-0.5 [facility] Comment on above: Performed By: #### U SUNITA, MG, RENAL #### [facility] [address] [place] [address] Dr. Silver Harrison LYMPH # 2.1 103/ul Normal 1.2-3.8 [facility] Comment on above: Performed By: #### U SUNITA, MG, RENAL #### [facility] [address] [place] [address] Dr. Silver Harrison Lymphocytes/100 WBC (Bld) 27.2 % Normal 20.5-60.0 [facility] Comment on above: Performed By: #### U SUNITA, MG, RENAL #### [facility] [address] [place] [address] Dr. Silver Harrison MANUAL DIFF REQ NO Normal [facility] Comment on above: Performed By: #### U SUNITA, MG, RENAL #### [facility] [address] [place] [address] Dr. Silver Harrison MCH (RBC) [Entitic mass] 31.5 pg Normal 26.7-34.0 [facility] Comment on above: Performed By: #### U SUNITA, MG, RENAL #### [facility] [address] [place] [address] Dr. Silver Harrison MCHC (RBC) [Mass/Vol] 33.8 g/dL Normal 29.9-35.2 [facility] Comment on above: Performed By: #### U SUNITA, MG, RENAL #### [facility] [address] [place] [address] Dr. Silver Harrison MCV (RBC) [Entitic vol] 93.0 fL Normal 81.0-99.0 [facility] Comment on above: Performed By: #### U SUNITA, MG, RENAL #### [facility] [address] [place] [address] Dr. Silver Harrison MONO # 0.5 103/ul Normal 0.3-0.8 [facility] Comment on above: Performed By: #### U SUNITA, MG, RENAL #### [facility] [address] [place] [address] Dr. Silver Harrison Monocytes/100 WBC (Bld) 7.0 % Normal 1.7-12.0 [facility] Comment on above: Performed By: #### U SUNITA, MG, RENAL #### [facility] [address] [place] [address] Dr. Silver Harrison NEUT # 4.8 103/ul Normal 1.4-6.5 [facility] Comment on above: Performed By: #### U SUNITA, MG, RENAL #### [facility] [address] [place] [address] Dr. Silver Harrison Neutrophils/100 WBC (Bld) 62.5 % Normal 43.0-75.0 [facility] Comment on above: Performed By: #### U SUNITA, MG, RENAL #### [facility] [address] [place] [address] Dr. Silver Harrison Platelet mean volume (Bld) [Entitic vol] 12.2 fL Normal 9.5-13.5 [facility] Comment on above: Performed By: #### U SUNITA, MG, RENAL #### [facility] [address] [place] [address] Dr. Silver Harrison PLT 156 103/ul Normal 150-450 [facility] Comment on above: Performed By: #### U SUNITA, MG, RENAL #### [facility] [address] [place] [address] Dr. Silver Harrison RBC 4.86 106/ul Normal 4.20-5.40 [facility] Comment on above: Performed By: #### U SUNITA, MG, RENAL #### [facility] [address] [place] [address] Dr. Silver Harrison WBC 7.8 103/ul Normal 4.0-11.0 [facility] Comment on above: Performed By: #### U SUNITA, MG, RENAL #### [facility] [address] [place] [address] Dr. Silver Harrison FERRITINon 07-29-2022 Ferritin [Mass/Vol] 704.0 ng/mL Critically high 8.0-252.0 [facility] Comment on above: Performed By: #### U SUNITA, MG, RENAL #### [facility] [address] [place] [address] Dr. Silver Harrison IRON AND TIBCon 07-29-2022 % SATURATION 20.2 % Normal [facility] Comment on above: Performed By: #### U SUNITA, MG, RENAL #### [facility] [address] [place] [address] Dr. Silver Harrison Iron [Mass/Vol] 47.0 ug/dL Critically low 50.0-170.0 [facility] Comment on above: Performed By: #### U SUNITA, MG, RENAL #### [facility] [address] [place] [address] Dr. Silver Harrison TIBC DIRECT 233.0 ug/dL Critically low 250.0-450. 0 [facility] Comment on above: Performed By: #### U SUNITA, MG, RENAL #### [facility] [address] [address] [address] Silver Harrison CBC AUTO DIFFon 07-24-2022 BASO # 0.1 103/ul Normal 0.0-0.1 [facility] Comment on above: Performed By: #### B MP #### [facility] [address] [address] [address] Silver Harrison Basophils/100 WBC (Bld) 0.6 % Normal 0.2-2.0 [facility] Comment on above: Performed By: #### B MP #### [facility] [address] [address] [address] Silver Harrison EO # 0.3 103/ul Normal 0.0-0.7 [facility] Comment on above: Performed By: #### B MP #### [facility] [address] [place] [address] Dr. Silver Harrison Eosinophils/100 WBC (Bld) 2.3 % Normal 0.9-7.0 [facility] Comment on above: Performed By: #### B MP #### [facility] [address] [place] [address] Dr. Silver Harriosn Erythrocyte distribution width (RBC) [Ratio] 13.3 % Normal 11.0-15.0 [facility] Comment on above: Performed By: #### B MP #### [facility] [address] [place] [address] Dr. Silver Harrison Hematocrit (Bld) [Volume fraction] 28.8 % Critically low 36.0-48.0 [facility] Comment on above: Performed By: #### B MP #### [facility] [address] [place] [address] Dr. Silver Harrison Hemoglobin (Bld) [Mass/Vol] 8.8 g/dL Critically low 12.0-16.0 [facility] Comment on above: Performed By: #### B MP #### [facility] [address] [place] [address] Dr. Silver Harrison IG # 0.12 10e3/ul Critically high 0.00-0.03 [facility] Comment on above: Performed By: #### B MP #### [facility] [address] [place] [address] Dr. Silver Harrison IG % 1.1 % Critically high 0.0-0.5 [facility] Comment on above: Performed By: #### B MP #### [facility] [address] [place] [address] Dr. Silver Harrison LYMPH # 2.4 103/ul Normal 1.2-3.8 [facility] Comment on above: Performed By: #### B MP #### [facility] [address] [place] [address] Dr. Silver Harrison Lymphocytes/100 WBC (Bld) 22.0 % Normal 20.5-60.0 [facility] Comment on above: Performed By: #### B MP #### [facility] [address] [place] [address] Dr. Silver Harrison MANUAL DIFF REQ NO Normal [facility] Comment on above: Performed By: #### B MP #### [facility] [address] [place] [address] Dr. Silver Harrison MCH (RBC) [Entitic mass] 28.9 pg Normal 26.7-34.0 [facility] Comment on above: Performed By: #### B MP #### [facility] [address] [place] [address] Dr. Silver Harrison MCHC (RBC) [Mass/Vol] 30.6 g/dL Normal 29.9-35.2 [facility] Comment on above: Performed By: #### B MP #### [facility] [address] [place] [address] Dr. Silver Harrison MCV (RBC) [Entitic vol] 94.4 fL Normal 81.0-99.0 [facility] Comment on above: Performed By: #### B MP #### [facility] [address] [place] [address] Dr. Silver Harrison MONO # 0.5 103/ul Normal 0.3-0.8 [facility] Comment on above: Performed By: #### B MP #### [facility] [address] [place] [address] Dr. Silver Harrison Monocytes/100 WBC (Bld) 4.8 % Normal 1.7-12.0 [facility] Comment on above: Performed By: #### B MP #### [facility] [address] [place] [address] Dr. Silver Harrison NEUT # 7.4 103/ul Critically high 1.4-6.5 [facility] Comment on above: Performed By: #### B MP #### [facility] [address] [place] [address] Dr. Silver Harrison Neutrophils/100 WBC (Bld) 69.2 % Normal 43.0-75.0 [facility] Comment on above: Performed By: #### B MP #### [facility] [address] [place] [address] Dr. Silver Harrison Platelet mean volume (Bld) [Entitic vol] 9.8 fL Normal 9.5-13.5 [facility] Comment on above: Performed By: #### B MP #### [facility] [address] [place] [address] Dr. Silver Harrison PLT 146 103/ul Critically low 150-450 [facility] Comment on above: Performed By: #### B MP #### [facility] [address] [place] [address] Dr. Silver Harrison RBC 3.05 106/ul Critically low 4.20-5.40 [facility] Comment on above: Performed By: #### B MP #### [facility] [address] [place] [address] Dr. Silver Harrison WBC 10.7 103/ul Normal 4.0-11.0 [facility] Comment on above: Performed By: #### B MP #### [facility] [address] [place] [address] Dr. Silver Harrison PHOSPHORUSon 07-24-2022 Phosphate [Mass/Vol] 4.5 mg/dL Normal 2.6-4.7 [facility] Comment on above: Performed By: #### U SUNITA, MG, RENAL #### [facility] [address] [address] [address] Silver Harrison PROF CHEM 8 (BAS METB)on Anion gap [Moles/Vol] 13.6 mmol/L Normal [facility] Comment on above: Performed By: #### U SUNITA, MG, RENAL #### [facility] [address] [place] [address] Dr. Silver Harirson Calcium [Mass/Vol] 8.5 mg/dL Normal 8.5-10.1 [facility] Comment on above: Performed By: #### U SUNITA, MG, RENAL #### [facility] [address] [place] [address] Dr. Silver Harrison Chloride [Moles/Vol] 105 mmol/L Normal 98-107 [facility] Comment on above: Performed By: #### U SUNITA, MG, RENAL #### [facility] [address] [place] [address] Dr. Silver Harrison CO2 [Moles/Vol] 25.8 mmol/L Normal 21.0-32.0 [facility] Comment on above: Performed By: #### U SUNITA, MG, RENAL #### [facility] [address] [place] [address] Dr. Silver Harrison Creatinine [Mass/Vol] 4.02 mg/dL Critically high 0.55-1.02 [facility] Comment on above: Performed By: #### U SUNITA, MG, RENAL #### [facility] [address] [place] [address] Dr. Silver Harrison EGFR-AF AFGHAN 13 mL/min/1.73m2 Critically low >=60 [facility] Comment on above: Performed By: #### U SUNITA, MG, RENAL #### [facility] [address] [place] [address] Dr. Silver Harrison EGFR-NON AF AFGHAN 11 mL/min/1.73m2 Critically low >=60 [facility] Comment on above: Performed By: #### U SUNITA, MG, RENAL #### [facility] [address] [place] [address] Dr. Silver Harrison Glucose [Mass/Vol] 74 mg/dL Normal 74-106 [facility] Comment on above: Performed By: #### U SUNITA, MG, RENAL #### [facility] [address] [place] [address] Dr. Silver Harrison Potassium [Moles/Vol] 4.4 mmol/L Normal 3.5-5.1 [facility] Comment on above: Performed By: #### U SUNITA, MG, RENAL #### [facility] [address] [place] [address] Dr. Silver Harrison Sodium [Moles/Vol] 140 mmol/L Normal 136-145 [facility] Comment on above: Performed By: #### U SUNITA, MG, RENAL #### [facility] [address] [place] [address] Dr. Silver Harrison Urea nitrogen [Mass/Vol] 45.0 mg/dL Critically high 7.0-18.0 [facility] Comment on above: Performed By: #### U SUNITA, MG, RENAL #### [facility] [address] [place] [address] Dr. Silver Harrison Urea nitrogen/Creatinine [Mass ratio] 11.2 mg/mg Normal [facility] Comment on above: Performed By: #### U SUNITA, MG, RENAL #### [facility] [address] [place] [address] Dr. Silver Harrison [facility]IS PANEL[facility] H[facility] Screen Negative Normal Negative [facility] Comment on above: Performed By: #### H EPACUT #### [facility] [address] [place] [address] Dr. Silver Harrison HCV AB Non-Reactive Normal Non Reactive [facility] Comment on above: Performed By: #### H EPACUT #### [facility] [address] [place] [address] Dr. Silver Harrison Hep A Ab, IgM Negative Normal Negative [facility] Comment on above: Performed By: #### H EPACUT #### [facility] [address] [place] [address] Dr. Silver Harrison Hep B Core Ab, IgM Negative Normal Negative [facility] Comment on above: Performed By: #### H EPACUT #### [facility] [address] [place] [address] Dr. Silver Harrison Interpretation: Comment Normal [facility] Comment on above: Result Comment: Not infected with HCV unless early or acute infection is suspected (which may be delayed in an immunocompromised individual), or other evidence exists to indicate HCV infection. Performed By: #### H EPACUT #### [facility] [address] [place] [address] Dr. Silver Harrison PTH INTACTon 07-21-2022 PTH, Intact 164 pg/mL Critically high 15-65 [facility] Comment on above: Performed By: #### U SUNITA, MG, RENAL #### [facility] [address] [place] [address] Dr. Silver Harrison CBC AUTO DIFFon 07-20-2022 BASO # 0.0 103/ul Normal 0.0-0.1 [facility] Comment on above: Performed By: #### C BC #### [facility] [address] [place] [address] Dr. Silver Harrison Basophils/100 WBC (Bld) 0.3 % Normal 0.2-2.0 [facility] Comment on above: Performed By: #### C BC #### [facility] [address] [place] [address] Dr. Silver Harrison EO # 0.2 103/ul Normal 0.0-0.7 [facility] Comment on above: Performed By: #### C BC #### [facility] [address] [place] [address] Dr. Silver Harrison Eosinophils/100 WBC (Bld) 2.5 % Normal 0.9-7.0 [facility] Comment on above: Performed By: #### C BC #### [facility] [address] [place] [address] Dr. Silver Harriosn Erythrocyte distribution width (RBC) [Ratio] 13.2 % Normal 11.0-15.0 [facility] Comment on above: Performed By: #### C BC #### [facility] [address] [place] [address] Dr. Silver Harrison Hematocrit (Bld) [Volume fraction] 28.7 % Critically low 36.0-48.0 [facility] Comment on above: Performed By: #### C BC #### [facility] [address] [place] [address] Dr. Silver Harrison Hemoglobin (Bld) [Mass/Vol] 8.6 g/dL Critically low 12.0-16.0 [facility] Comment on above: Performed By: #### C BC #### [facility] [address] [place] [address] Dr. Silver Harrison IG # 0.05 10e3/ul Critically high 0.00-0.03 [facility] Comment on above: Performed By: #### C BC #### [facility] [address] [place] [address] Dr. Silver Harrison IG % 0.5 % Normal 0.0-0.5 [facility] Comment on above: Performed By: #### C BC #### [facility] [address] [place] [address] Dr. Silver Harrison LYMPH # 1.9 103/ul Normal 1.2-3.8 [facility] Comment on above: Performed By: #### C BC #### [facility] [address] [place] [address] Dr. Silver Harrison Lymphocytes/100 WBC (Bld) 20.3 % Critically low 20.5-60.0 [facility] Comment on above: Performed By: #### C BC #### [facility] [address] [place] [address] Dr. Silver Harrison MANUAL DIFF REQ NO Normal [facility] Comment on above: Performed By: #### C BC #### [facility] [address] [place] [address] Dr. Silver Harrison MCH (RBC) [Entitic mass] 28.9 pg Normal 26.7-34.0 [facility] Comment on above: Performed By: #### C BC #### [facility] [address] [place] [address] Dr. Silver Harrison MCHC (RBC) [Mass/Vol] 30.0 g/dL Normal 29.9-35.2 [facility] Comment on above: Performed By: #### C BC #### [facility] [address] [place] [address] Dr. Silver Harrison MCV (RBC) [Entitic vol] 96.3 fL Normal 81.0-99.0 [facility] Comment on above: Performed By: #### C BC #### [facility] [address] [place] [address] Dr. Silver Harrison MONO # 0.6 103/ul Normal 0.3-0.8 [facility] Comment on above: Performed By: #### C BC #### [facility] [address] [place] [address] Dr. Silver Harrison Monocytes/100 WBC (Bld) 6.1 % Normal 1.7-12.0 [facility] Comment on above: Performed By: #### C BC #### [facility] [address] [place] [address] Dr. Silver Harrison NEUT # 6.5 103/ul Normal 1.4-6.5 [facility] Comment on above: Performed By: #### C BC #### [facility] [address] [place] [address] Dr. Silver Harrison Neutrophils/100 WBC (Bld) 70.3 % Normal 43.0-75.0 [facility] Comment on above: Performed By: #### C BC #### [facility] [address] [place] [address] Dr. Silver Harrison Platelet mean volume (Bld) [Entitic vol] 9.8 fL Normal 9.5-13.5 [facility] Comment on above: Performed By: #### C BC #### [facility] [address] [place] [address] Dr. Silver Harrison PLT 171 103/ul Normal 150-450 [facility] Comment on above: Performed By: #### C BC #### [facility] [address] [place] [address] Dr. Silver Harrison RBC 2.98 106/ul Critically low 4.20-5.40 [facility] Comment on above: Performed By: #### C BC #### [facility] [address] [address] [address] Silver Harrison WBC 9.3 103/ul Normal 4.0-11.0 [facility] Comment on above: Performed By: #### C BC #### [facility] [address] [place] [address] Dr. Silver Harrison FERRITINon 07-20-2022 Ferritin [Mass/Vol] 381.0 ng/mL Critically high 8.0-252.0 [facility] Comment on above: Performed By: #### B MP #### [facility] [address] [place] [address] Dr. Silver Harrison IRON AND TIBCon 07-20-2022 % SATURATION 14.6 % Normal [facility] Comment on above: Performed By: #### B MP #### [facility] [address] [place] [address] Dr. Silver Harrison Iron [Mass/Vol] 30.0 ug/dL Critically low 50.0-170.0 [facility] Comment on above: Performed By: #### B MP #### [facility] [address] [place] [address] Dr. Silver Harrison TIBC DIRECT 206.0 ug/dL Critically low 250.0-450. 0 [facility] Comment on above: Performed By: #### B MP #### [facility] [address] [place] [address] Dr. Silver Harrison PROF 14(COMP METB)on 023 Albumin [Mass/Vol] 2.8 g/dL Critically low 3.4-5.0 [facility] Comment on above: Performed By: #### B MP #### [facility] [address] [place] [address] Dr. Silver Harrison Albumin/Globulin [Mass ratio] 0.5 {ratio} Normal [facility] Comment on above: Performed By: #### B MP #### [facility] [address] [place] [address] Dr. Silver Harrison ALP [Catalytic activity/Vol] 145 U/L Critically high 46-116 [facility] Comment on above: Performed By: #### B MP #### [facility] [address] [address] [address] Silver Harrison ALT [Catalytic activity/Vol] 13 U/L Critically low 14-59 [facility] Comment on above: Performed By: #### B MP #### [facility] [address] [address] [address] Silver Harrison Anion gap [Moles/Vol] 15.6 mmol/L Normal [facility] Comment on above: Performed By: #### B MP #### [facility] [address] [address] [address] Silver Harrison AST [Catalytic activity/Vol] 12 U/L Critically low 15-37 [facility] Comment on above: Performed By: #### B MP #### [facility] [address] [address] [address] Silver Harrison Bilirubin [Mass/Vol] 0.2 mg/dL Normal 0.2-1.0 [facility] Comment on above: Performed By: #### B MP #### [facility] [address] [address] [address] Silver Harrison Calcium [Mass/Vol] 8.3 mg/dL Critically low 8.5-10.1 [facility] Comment on above: Performed By: #### B MP #### [facility] [address] [address] [address] Silver Harrison Chloride [Moles/Vol] 113 mmol/L Critically high 98-107 [facility] Comment on above: Performed By: #### B MP #### [facility] [address] [address] [address] Silver Harrison CO2 [Moles/Vol] 25.1 mmol/L Normal 21.0-32.0 [facility] Comment on above: Performed By: #### B MP #### [facility] [address] [address] [address] Silver Harrison Creatinine [Mass/Vol] 4.32 mg/dL Critically high 0.55-1.02 [facility] Comment on above: Performed By: #### B MP #### [facility] [address] [address] [address] Silver Harrison EGFR-AF AFGHAN 12 mL/min/1.73m2 Critically low >=60 [facility] Comment on above: Performed By: #### B MP #### [facility] [address] [address] [address] Silver Harrison EGFR-NON AF AFGHAN 10 mL/min/1.73m2 Critically low >=60 [facility] Comment on above: Performed By: #### B MP #### [facility] [address] [address] [address] Silver Harrison Globulin (S) [Mass/Vol] 5.6 g/dL Normal [facility] Comment on above: Performed By: #### B MP #### [facility] [address] [address] [address] Silver Harrison Glucose [Mass/Vol] 45 mg/dL Critically low 74-106 [facility] Comment on above: Performed By: #### B MP #### [facility] [address] [address] [address] Silver Harrison Potassium [Moles/Vol] 4.7 mmol/L Normal 3.5-5.1 [facility] Comment on above: Performed By: #### B MP #### [facility] [address] [address] [address] Silver Harrison Protein [Mass/Vol] 8.4 g/dL Critically high 6.4-8.2 [facility] Comment on above: Performed By: #### B MP #### [facility] [address] [address] [address] Silver Harrison Sodium [Moles/Vol] 149 mmol/L Critically high 136-145 [facility] Comment on above: Performed By: #### B MP #### [facility] [address] [address] [address] Silver Harrison Urea nitrogen [Mass/Vol] 54.0 mg/dL Critically high 7.0-18.0 [facility] Comment on above: Performed By: #### B MP #### [facility] [address] [place] [address] Dr. Silver Harrison Urea nitrogen/Creatinine [Mass ratio] 12.5 mg/mg Normal [facility] Comment on above: Performed By: #### B MP #### [facility] [address] [place] [address] Dr. Silver Harrison VIT B12 AND FOLATEon 023 Cobalamin (Vitamin B12) [Mass/Vol] 395.0 pg/mL Normal 193.0-986. 0 [facility] Comment on above: Performed By: #### B MP #### [facility] [address] [place] [address] Dr. Silver Harrison FOLATE 5.60 ng/mL Critically low 8.60-58.90 [facility] Comment on above: Performed By: #### B MP #### [facility] [address] [place] [address] Dr. Silver Harrison CBC AUTO DIFFon 07-17-2022 BASO # 0.0 103/ul Normal 0.0-0.1 [facility] Comment on above: Performed By: #### C BC #### [facility] [address] [place] [address] Dr. Silver Harrison Basophils/100 WBC (Bld) 0.5 % Normal 0.2-2.0 [facility] Comment on above: Performed By: #### C BC #### [facility] [address] [place] [address] Dr. Silver Harrison EO # 0.2 103/ul Normal 0.0-0.7 [facility] Comment on above: Performed By: #### C BC #### [facility] [address] [place] [address] Dr. Silver Harrison Eosinophils/100 WBC (Bld) 2.6 % Normal 0.9-7.0 [facility] Comment on above: Performed By: #### C BC #### [facility] [address] [place] [address] Dr. Silver Harrison Erythrocyte distribution width (RBC) [Ratio] 13.2 % Normal 11.0-15.0 [facility] Comment on above: Performed By: #### C BC #### [facility] [address] [place] [address] Dr. Silver Harrison Hematocrit (Bld) [Volume fraction] 25.7 % Critically low 36.0-48.0 [facility] Comment on above: Performed By: #### C BC #### [facility] [address] [place] [address] Dr. Silver Harrison Hemoglobin (Bld) [Mass/Vol] 7.7 g/dL Critically low 12.0-16.0 [facility] Comment on above: Performed By: #### C BC #### [facility] [address] [place] [address] Dr. Silver Harrison IG # 0.04 10e3/ul Critically high 0.00-0.03 [facility] Comment on above: Performed By: #### C BC #### [facility] [address] [place] [address] Dr. Silver Harrison IG % 0.5 % Normal 0.0-0.5 [facility] Comment on above: Performed By: #### C BC #### [facility] [address] [place] [address] Dr. Silver Harrison LYMPH # 1.9 103/ul Normal 1.2-3.8 [facility] Comment on above: Performed By: #### C BC #### [facility] [address] [place] [address] Dr. Silver Harrison Lymphocytes/100 WBC (Bld) 21.8 % Normal 20.5-60.0 [facility] Comment on above: Performed By: #### C BC #### [facility] [address] [place] [address] Dr. Silver Harrison MANUAL DIFF REQ NO Normal [facility] Comment on above: Performed By: #### C BC #### [facility] [address] [place] [address] Dr. Silver Harrison MCH (RBC) [Entitic mass] 29.2 pg Normal 26.7-34.0 [facility] Comment on above: Performed By: #### C BC #### [facility] [address] [address] [address] Silver Harrison MCHC (RBC) [Mass/Vol] 30.0 g/dL Normal 29.9-35.2 [facility] Comment on above: Performed By: #### C BC #### [facility] [address] [address] [address] Silver Harrison MCV (RBC) [Entitic vol] 97.3 fL Normal 81.0-99.0 [facility] Comment on above: Performed By: #### C BC #### [facility] [address] [place] [address] Dr. Silver Harrison MONO # 0.6 103/ul Normal 0.3-0.8 [facility] Comment on above: Performed By: #### C BC #### [facility] [address] [place] [address] Dr. Silver Harrison Monocytes/100 WBC (Bld) 7.3 % Normal 1.7-12.0 [facility] Comment on above: Performed By: #### C BC #### [facility] [address] [place] [address] Dr. Silver Harrison NEUT # 5.7 103/ul Normal 1.4-6.5 [facility] Comment on above: Performed By: #### C BC #### [facility] [address] [place] [address] Dr. Silver Harrison Neutrophils/100 WBC (Bld) 67.3 % Normal 43.0-75.0 [facility] Comment on above: Performed By: #### C BC #### [facility] [address] [address] [address] Silver Harrison Platelet mean volume (Bld) [Entitic vol] 10.0 fL Normal 9.5-13.5 [facility] Comment on above: Performed By: #### C BC #### [facility] [address] [address] [address] Silver Harrison PLT 154 103/ul Normal 150-450 [facility] Comment on above: Performed By: #### C BC #### [facility] [address] [place] [address] Dr. Silver Harrison RBC 2.64 106/ul Critically low 4.20-5.40 [facility] Comment on above: Performed By: #### C BC #### [facility] [address] [place] [address] Dr. Silver Harrison WBC 8.5 103/ul Normal 4.0-11.0 [facility] Comment on above: Performed By: #### C BC #### [facility] [address] [place] [address] Dr. Silver Harrison PHOSPHORUSon 07-17-2022 Phosphate [Mass/Vol] 4.9 mg/dL Critically high 2.6-4.7 [facility] Comment on above: Performed By: #### U SUNITA, MG, RENAL #### [facility] [address] [place] [address] Dr. Silver Harrison PROF CHEM 8 (BAS METB)on Anion gap [Moles/Vol] 12.1 mmol/L Normal [facility] Comment on above: Performed By: #### U SUNITA, MG, RENAL #### [facility] [address] [place] [address] Dr. Silver Harrison Calcium [Mass/Vol] 7.9 mg/dL Critically low 8.5-10.1 [facility] Comment on above: Performed By: #### U SUNITA, MG, RENAL #### [facility] [address] [place] [address] Dr. Silver Harrison Chloride [Moles/Vol] 108 mmol/L Critically high 98-107 [facility] Comment on above: Performed By: #### U SUNITA, MG, RENAL #### [facility] [address] [place] [address] Dr. Silver Harrison CO2 [Moles/Vol] 26.4 mmol/L Normal 21.0-32.0 [facility] Comment on above: Performed By: #### U SUNITA, MG, RENAL #### [facility] [address] [place] [address] Dr. Silver Harrison Creatinine [Mass/Vol] 4.33 mg/dL Critically high 0.55-1.02 [facility] Comment on above: Performed By: #### U SUNITA, MG, RENAL #### [facility] [address] [address] [address] Silver Harrison EGFR-AF AFGHAN 12 mL/min/1.73m2 Critically low >=60 [facility] Comment on above: Performed By: #### U SUNITA, MG, RENAL #### [facility] [address] [place] [address] Dr. Silver Harrison EGFR-NON AF AFGHAN 10 mL/min/1.73m2 Critically low >=60 [facility] Comment on above: Performed By: #### U SUNITA, MG, RENAL #### [facility] [address] [place] [address] Dr. Silver Harrison Glucose [Mass/Vol] 86 mg/dL Normal 74-106 [facility] Comment on above: Performed By: #### U SUNITA, MG, RENAL #### [facility] [address] [place] [address] Dr. Silver Harrison Potassium [Moles/Vol] 4.5 mmol/L Normal 3.5-5.1 [facility] Comment on above: Performed By: #### U SUNITA, MG, RENAL #### [facility] [address] [place] [address] Dr. Silver Harrison Sodium [Moles/Vol] 142 mmol/L Normal 136-145 [facility] Comment on above: Performed By: #### U SUNITA, MG, RENAL #### [facility] [address] [address] [address] Silver Harrison Urea nitrogen [Mass/Vol] 50.0 mg/dL Critically high 7.0-18.0 [facility] Comment on above: Performed By: #### U SUNITA, MG, RENAL #### [facility] [address] [address] [address] Silver Harrison Urea nitrogen/Creatinine [Mass ratio] 11.5 mg/mg Normal [facility] Comment on above: Performed By: #### U SUNITA, MG, RENAL #### [facility] [address] [place] [address] Dr. Silver Harrison CBC AUTO DIFFon 07-03-2022 BASO # 0.0 103/ul Normal 0.0-0.1 [facility] Comment on above: Performed By: #### U SUNITA, MG, RENAL #### [facility] [address] [place] [address] Dr. Silver Harrison Basophils/100 WBC (Bld) 0.4 % Normal 0.2-2.0 [facility] Comment on above: Performed By: #### U SUNITA, MG, RENAL #### [facility] [address] [place] [address] Dr. Silver Harrison EO # 0.3 103/ul Normal 0.0-0.7 [facility] Comment on above: Performed By: #### U SUNITA, MG, RENAL #### [facility] [address] [place] [address] Dr. Silver Harrison Eosinophils/100 WBC (Bld) 2.9 % Normal 0.9-7.0 [facility] Comment on above: Performed By: #### U SUNITA, MG, RENAL #### [facility] [address] [place] [address] Dr. Silver Harrison Erythrocyte distribution width (RBC) [Ratio] 12.9 % Normal 11.0-15.0 [facility] Comment on above: Performed By: #### U SUNITA, MG, RENAL #### [facility] [address] [place] [address] Dr. Silver Harrison Hematocrit (Bld) [Volume fraction] 28.0 % Critically low 36.0-48.0 [facility] Comment on above: Performed By: #### U SUNITA, MG, RENAL #### [facility] [address] [place] [address] Dr. Silver Harrison Hemoglobin (Bld) [Mass/Vol] 8.5 g/dL Critically low 12.0-16.0 [facility] Comment on above: Performed By: #### U SUNITA, MG, RENAL #### [facility] [address] [place] [address] Dr. Silver Harrison IG # 0.07 10e3/ul Critically high 0.00-0.03 [facility] Comment on above: Performed By: #### U SUNITA, MG, RENAL #### [facility] [address] [address] [address] Silver Harrison IG % 0.7 % Critically high 0.0-0.5 [facility] Comment on above: Performed By: #### U SUNITA, MG, RENAL #### [facility] [address] [address] [address] Silver Harrison LYMPH # 1.7 103/ul Normal 1.2-3.8 [facility] Comment on above: Performed By: #### U SUNITA, MG, RENAL #### [facility] [address] [place] [address] Dr. Silver Harrison Lymphocytes/100 WBC (Bld) 17.7 % Critically low 20.5-60.0 [facility] Comment on above: Performed By: #### U SUNITA, MG, RENAL #### [facility] [address] [place] [address] Dr. Silver Harrison MANUAL DIFF REQ NO Normal [facility] Comment on above: Performed By: #### U SUNITA, MG, RENAL #### [facility] [address] [place] [address] Dr. Silver Harrison MCH (RBC) [Entitic mass] 29.0 pg Normal 26.7-34.0 [facility] Comment on above: Performed By: #### U SUNITA, MG, RENAL #### [facility] [address] [place] [address] Dr. Silver Harrison MCHC (RBC) [Mass/Vol] 30.4 g/dL Normal 29.9-35.2 [facility] Comment on above: Performed By: #### U SUNITA, MG, RENAL #### [facility] [address] [place] [address] Dr. Silver Harrison MCV (RBC) [Entitic vol] 95.6 fL Normal 81.0-99.0 [facility] Comment on above: Performed By: #### U SUNITA, MG, RENAL #### [facility] [address] [address] [address] Silver Harrison MONO # 0.6 103/ul Normal 0.3-0.8 [facility] Comment on above: Performed By: #### U SUNITA, MG, RENAL #### [facility] [address] [address] [address] Silver Harrison Monocytes/100 WBC (Bld) 5.7 % Normal 1.7-12.0 [facility] Comment on above: Performed By: #### U SUNITA, MG, RENAL #### [facility] [address] [address] [address] Silver Harrison NEUT # 7.1 103/ul Critically high 1.4-6.5 [facility] Comment on above: Performed By: #### U SUNITA, MG, RENAL #### [facility] [address] [place] [address] Dr. Silver Harrison Neutrophils/100 WBC (Bld) 72.6 % Normal 43.0-75.0 [facility] Comment on above: Performed By: #### U SUNITA, MG, RENAL #### [facility] [address] [address] [address] Silver Harrison Platelet mean volume (Bld) [Entitic vol] 9.8 fL Normal 9.5-13.5 [facility] Comment on above: Performed By: #### U SUNITA, MG, RENAL #### [facility] [address] [address] [address] Silver Harrison PLT 188 103/ul Normal 150-450 [facility] Comment on above: Performed By: #### U SUNITA, MG, RENAL #### [facility] [address] [address] [address] Silver Harrison RBC 2.93 106/ul Critically low 4.20-5.40 [facility] Comment on above: Performed By: #### U SUNITA, MG, RENAL #### [facility] [address] [place] [address] Dr. Silver Harrison WBC 9.7 103/ul Normal 4.0-11.0 [facility] Comment on above: Performed By: #### U SUNITA, MG, RENAL #### [facility] [address] [address] [address] Silver Harrison PROF CHEM 8 (BAS METB)on Anion gap [Moles/Vol] 10.9 mmol/L Normal [facility] Comment on above: Performed By: #### B MP #### [facility] [address] [address] [address] Silver Harrison Calcium [Mass/Vol] 8.5 mg/dL Normal 8.5-10.1 [facility] Comment on above: Performed By: #### B MP #### [facility] [address] [address] [address] Silver Harrison Chloride [Moles/Vol] 108 mmol/L Critically high 98-107 [facility] Comment on above: Performed By: #### B MP #### [facility] [address] [place] [address] Dr. Silver Harrison CO2 [Moles/Vol] 28.6 mmol/L Normal 21.0-32.0 [facility] Comment on above: Performed By: #### B MP #### [facility] [address] [place] [address] Dr. Silver Harrison Creatinine [Mass/Vol] 4.05 mg/dL Critically high 0.55-1.02 [facility] Comment on above: Performed By: #### B MP #### [facility] [address] [address] [address] Silver Harrison EGFR-AF AFGHAN 13 mL/min/1.73m2 Critically low >=60 [facility] Comment on above: Performed By: #### B MP #### [facility] [address] [address] [address] Silver Harrison EGFR-NON AF AFGHAN 11 mL/min/1.73m2 Critically low >=60 [facility] Comment on above: Performed By: #### B MP #### [facility] [address] [address] [address] Silver Harrison Glucose [Mass/Vol] 74 mg/dL Normal 74-106 [facility] Comment on above: Performed By: #### B MP #### [facility] [address] [address] [address] Silver Harrison Potassium [Moles/Vol] 4.5 mmol/L Normal 3.5-5.1 [facility] Comment on above: Performed By: #### B MP #### [facility] [address] [address] [address] Silver Harrison Sodium [Moles/Vol] 143 mmol/L Normal 136-145 [facility] Comment on above: Performed By: #### B MP #### [facility] [address] [address] [address] Silver Harrison Urea nitrogen [Mass/Vol] 45.0 mg/dL Critically high 7.0-18.0 [facility] Comment on above: Performed By: #### B MP #### [facility] [address] [place] [address] Dr. Silver Harrison Urea nitrogen/Creatinine [Mass ratio] 11.1 mg/mg Normal [facility] Comment on above: Performed By: #### B MP #### [facility] [address] [place] [address] Dr. Silver Harrison CBC AUTO DIFFon 07-01-2022 BASO # 0.1 103/ul Normal 0.0-0.1 [facility] Comment on above: Performed By: #### U SUNITA, MG, RENAL #### [facility] [address] [place] [address] Dr. Silver Harrison Basophils/100 WBC (Bld) 0.5 % Normal 0.2-2.0 [facility] Comment on above: Performed By: #### U SUNITA, MG, RENAL #### [facility] [address] [place] [address] Dr. Silver Harrison EO # 0.2 103/ul Normal 0.0-0.7 [facility] Comment on above: Performed By: #### U SUNITA, MG, RENAL #### [facility] [address] [place] [address] Dr. Silver Harrison Eosinophils/100 WBC (Bld) 2.4 % Normal 0.9-7.0 [facility] Comment on above: Performed By: #### U SUNITA, MG, RENAL #### [facility] [address] [place] [address] Dr. Silver Harrison Erythrocyte distribution width (RBC) [Ratio] 12.7 % Normal 11.0-15.0 [facility] Comment on above: Performed By: #### U SUNITA, MG, RENAL #### [facility] [address] [place] [address] Dr. Silver Harrison Hematocrit (Bld) [Volume fraction] 27.9 % Critically low 36.0-48.0 [facility] Comment on above: Performed By: #### U SUNITA, MG, RENAL #### [facility] [address] [place] [address] Dr. Silver Harrison Hemoglobin (Bld) [Mass/Vol] 8.6 g/dL Critically low 12.0-16.0 [facility] Comment on above: Performed By: #### U SUNITA, MG, RENAL #### [facility] [address] [place] [address] Dr. Silver Harrison IG # 0.10 10e3/ul Critically high 0.00-0.03 [facility] Comment on above: Performed By: #### U SUNITA, MG, RENAL #### [facility] [address] [place] [address] Dr. Silver Harrison IG % 1.0 % Critically high 0.0-0.5 [facility] Comment on above: Performed By: #### U SUNITA, MG, RENAL #### [facility] [address] [place] [address] Dr. Silver Harrison LYMPH # 1.9 103/ul Normal 1.2-3.8 [facility] Comment on above: Performed By: #### U SUNITA, MG, RENAL #### [facility] [address] [place] [address] Dr. Silver Harrison Lymphocytes/100 WBC (Bld) 19.1 % Critically low 20.5-60.0 [facility] Comment on above: Performed By: #### U SUNITA, MG, RENAL #### [facility] [address] [address] [address] Silver Harrison MANUAL DIFF REQ NO Normal [facility] Comment on above: Performed By: #### U SUNITA, MG, RENAL #### [facility] [address] [place] [address] Dr. Silver Harrison MCH (RBC) [Entitic mass] 29.5 pg Normal 26.7-34.0 [facility] Comment on above: Performed By: #### U SUNITA, MG, RENAL #### [facility] [address] [place] [address] Dr. Silver Harrison MCHC (RBC) [Mass/Vol] 30.8 g/dL Normal 29.9-35.2 [facility] Comment on above: Performed By: #### U SUNITA, MG, RENAL #### [facility] [address] [place] [address] Dr. Silver Harrison MCV (RBC) [Entitic vol] 95.5 fL Normal 81.0-99.0 [facility] Comment on above: Performed By: #### U SUNITA, MG, RENAL #### [facility] [address] [place] [address] Dr. Silver Harrison MONO # 0.6 103/ul Normal 0.3-0.8 [facility] Comment on above: Performed By: #### U SUNITA, MG, RENAL #### [facility] [address] [place] [address] Dr. Silver Harrison Monocytes/100 WBC (Bld) 5.4 % Normal 1.7-12.0 [facility] Comment on above: Performed By: #### U SUNITA, MG, RENAL #### [facility] [address] [place] [address] Dr. Silver Harrison NEUT # 7.3 103/ul Critically high 1.4-6.5 [facility] Comment on above: Performed By: #### U SUNITA, MG, RENAL #### [facility] [address] [place] [address] Dr. Silver Harrison Neutrophils/100 WBC (Bld) 71.6 % Normal 43.0-75.0 [facility] Comment on above: Performed By: #### U SUNITA, MG, RENAL #### [facility] [address] [address] [address] Silver Harrison Platelet mean volume (Bld) [Entitic vol] 10.0 fL Normal 9.5-13.5 [facility] Comment on above: Performed By: #### U SUNITA, MG, RENAL #### [facility] [address] [place] [address] Dr. Silver Harrison PLT 208 103/ul Normal 150-450 [facility] Comment on above: Performed By: #### U SUNITA, MG, RENAL #### [facility] [address] [address] [address] Silver Harrison RBC 2.92 106/ul Critically low 4.20-5.40 [facility] Comment on above: Performed By: #### U SUNITA, MG, RENAL #### [facility] [address] [place] [address] Dr. Silver Harrison WBC 10.2 103/ul Normal 4.0-11.0 [facility] Comment on above: Performed By: #### U SUNITA, MG, RENAL #### [facility] [address] [place] [address] Dr. Silver Harrison PROF CHEM 8 (BAS METB)on Anion gap [Moles/Vol] 12.7 mmol/L Normal [facility] Comment on above: Performed By: #### B MP #### [facility] [address] [place] [address] Dr. Silver Harrison Calcium [Mass/Vol] 8.5 mg/dL Normal 8.5-10.1 [facility] Comment on above: Performed By: #### B MP #### [facility] [address] [place] [address] Dr. Silver Harrison Chloride [Moles/Vol] 108 mmol/L Critically high 98-107 [facility] Comment on above: Performed By: #### B MP #### [facility] [address] [place] [address] Dr. Silver Harrison CO2 [Moles/Vol] 26.9 mmol/L Normal 21.0-32.0 [facility] Comment on above: Performed By: #### B MP #### [facility] [address] [address] [address] Silver Harrison Creatinine [Mass/Vol] 4.31 mg/dL Critically high 0.55-1.02 [facility] Comment on above: Performed By: #### B MP #### [facility] [address] [address] [address] Silver Harrison EGFR-AF AFGHAN 12 mL/min/1.73m2 Critically low >=60 [facility] Comment on above: Performed By: #### B MP #### [facility] [address] [address] [address] Silver Harrison EGFR-NON AF AFGHAN 10 mL/min/1.73m2 Critically low >=60 [facility] Comment on above: Performed By: #### B MP #### [facility] [address] [address] [address] Silver Harrison Glucose [Mass/Vol] 141 mg/dL Critically high 74-106 T [facility] Comment on above: Performed By: #### B MP #### [facility] [address] [address] [address] Silver Harrison Potassium [Moles/Vol] 4.6 mmol/L Normal 3.5-5.1 [facility] Comment on above: Performed By: #### B MP #### [facility] [address] [address] [address] Silver Harrison Sodium [Moles/Vol] 143 mmol/L Normal 136-145 [facility] Comment on above: Performed By: #### B MP #### [facility] [address] [address] [address] Silver Harrison Urea nitrogen [Mass/Vol] 47.0 mg/dL Critically high 7.0-18.0 [facility] Comment on above: Performed By: #### B MP #### [facility] [address] [address] [address] Silver Harrison Urea nitrogen/Creatinine [Mass ratio] 10.9 mg/mg Normal [facility] Comment on above: Performed By: #### B MP #### [facility] [address] [place] [address] Dr. Silver Harrison PTH INTACTon 06-25-2022 PTH, Intact 132 pg/mL Critically high 15-65 [facility] Comment on above: Performed By: #### U SUNITA, MG, RENAL #### [facility] [address] [place] [address] Dr. Silver Harrison CBC AUTO DIFFon 06-24-2022 BASO # 0.0 103/ul Normal 0.0-0.1 [facility] Comment on above: Performed By: #### B MP #### [facility] [address] [place] [address] Dr. Silver Harrison Basophils/100 WBC (Bld) 0.5 % Normal 0.2-2.0 [facility] Comment on above: Performed By: #### B MP #### [facility] [address] [place] [address] Dr. Silver Harrison EO # 0.2 103/ul Normal 0.0-0.7 [facility] Comment on above: Performed By: #### B MP #### [facility] [address] [place] [address] Dr. Silver Harrison Eosinophils/100 WBC (Bld) 2.8 % Normal 0.9-7.0 [facility] Comment on above: Performed By: #### B MP #### [facility] [address] [place] [address] Dr. Silver Harrison Erythrocyte distribution width (RBC) [Ratio] 12.5 % Normal 11.0-15.0 [facility] Comment on above: Performed By: #### B MP #### [facility] [address] [place] [address] Dr. Silver Harrison Hematocrit (Bld) [Volume fraction] 26.0 % Critically low 36.0-48.0 [facility] Comment on above: Performed By: #### B MP #### [facility] [address] [place] [address] Dr. Silver Harrison Hemoglobin (Bld) [Mass/Vol] 8.1 g/dL Critically low 12.0-16.0 [facility] Comment on above: Performed By: #### B MP #### [facility] [address] [place] [address] Dr. Silver Harrison IG # 0.08 10e3/ul Critically high 0.00-0.03 [facility] Comment on above: Performed By: #### B MP #### [facility] [address] [place] [address] Dr. Silver Harrison IG % 0.9 % Critically high 0.0-0.5 [facility] Comment on above: Performed By: #### B MP #### [facility] [address] [place] [address] Dr. Silver Harrison LYMPH # 1.6 103/ul Normal 1.2-3.8 [facility] Comment on above: Performed By: #### B MP #### [facility] [address] [place] [address] Dr. Silver Harrison Lymphocytes/100 WBC (Bld) 19.4 % Critically low 20.5-60.0 [facility] Comment on above: Performed By: #### B MP #### [facility] [address] [place] [address] Dr. Silver Harrison MANUAL DIFF REQ NO Normal [facility] Comment on above: Performed By: #### B MP #### [facility] [address] [place] [address] Dr. Silver Harrison MCH (RBC) [Entitic mass] 30.0 pg Normal 26.7-34.0 [facility] Comment on above: Performed By: #### B MP #### [facility] [address] [place] [address] Dr. Silver Harrison MCHC (RBC) [Mass/Vol] 31.2 g/dL Normal 29.9-35.2 [facility] Comment on above: Performed By: #### B MP #### [facility] [address] [place] [address] Dr. Silver Harrison MCV (RBC) [Entitic vol] 96.3 fL Normal 81.0-99.0 [facility] Comment on above: Performed By: #### B MP #### [facility] [address] [place] [address] Dr. Silver Harrison MONO # 0.6 103/ul Normal 0.3-0.8 [facility] Comment on above: Performed By: #### B MP #### [facility] [address] [place] [address] Dr. Silver Harrison Monocytes/100 WBC (Bld) 6.6 % Normal 1.7-12.0 [facility] Comment on above: Performed By: #### B MP #### [facility] [address] [place] [address] Dr. Silver Harrison NEUT # 5.9 103/ul Normal 1.4-6.5 [facility] Comment on above: Performed By: #### B MP #### [facility] [address] [place] [address] Dr. Silver Harrison Neutrophils/100 WBC (Bld) 69.8 % Normal 43.0-75.0 [facility] Comment on above: Performed By: #### B MP #### [facility] [address] [place] [address] Dr. Silver Harrison Platelet mean volume (Bld) [Entitic vol] 10.0 fL Normal 9.5-13.5 [facility] Comment on above: Performed By: #### B MP #### [facility] [address] [place] [address] Dr. Silver Harrison PLT 180 103/ul Normal 150-450 [facility] Comment on above: Performed By: #### B MP #### [facility] [address] [place] [address] Dr. Silver Harrison RBC 2.70 106/ul Critically low 4.20-5.40 [facility] Comment on above: Performed By: #### B MP #### [facility] [address] [place] [address] Dr. Silver Harrison WBC 8.4 103/ul Normal 4.0-11.0 [facility] Comment on above: Performed By: #### B MP #### [facility] [address] [place] [address] Dr. Silver Harrison FERRITINon 06-24-2022 Ferritin [Mass/Vol] 535.0 ng/mL Critically high 8.0-252.0 [facility] Comment on above: Performed By: #### F ETIBC, FERR, VITAD #### [facility] [address] [place] [address] Dr. Silver Harrison IRON AND TIBCon 06-24-2022 % SATURATION 16.9 % Normal [facility] Comment on above: Performed By: #### F ETIBC, FERR, VITAD #### [facility] [address] [place] [address] Dr. Silver Harrison Iron [Mass/Vol] 31.0 ug/dL Critically low 50.0-170.0 [facility] Comment on above: Performed By: #### F ETIBC, FERR, VITAD #### [facility] [address] [place] [address] Dr. Silver Harrison TIBC DIRECT 183.0 ug/dL Critically low 250.0-450. 0 [facility] Comment on above: Performed By: #### F ETIBC, FERR, VITAD #### [facility] [address] [place] [address] Dr. Silver Harrison MAGNESIUMon 06-24-2022 Magnesium [Mass/Vol] 2.3 mg/dL Normal 1.8-2.4 [facility] Comment on above: Performed By: #### U SUNITA, MG, RENAL #### [facility] [address] [place] [address] Dr. Silver Harrison RENAL FUNCTION PANELon 06-24 Albumin [Mass/Vol] 2.5 g/dL Critically low 3.4-5.0 [facility] Comment on above: Performed By: #### U SUNITA, MG, RENAL #### [facility] [address] [place] [address] Dr. Silver Harrison Calcium [Mass/Vol] 8.4 mg/dL Critically low 8.5-10.1 [facility] Comment on above: Performed By: #### U SUNITA, MG, RENAL #### [facility] [address] [place] [address] Dr. Silver Harrison Chloride [Moles/Vol] 107 mmol/L Normal 98-107 [facility] Comment on above: Performed By: #### U SUNITA, MG, RENAL #### [facility] [address] [place] [address] Dr. Silver Harrison CO2 [Moles/Vol] 24.2 mmol/L Normal 21.0-32.0 [facility] Comment on above: Performed By: #### U SUNITA, MG, RENAL #### [facility] [address] [place] [address] Dr. Silver Harrison Creatinine [Mass/Vol] 4.38 mg/dL Critically high 0.55-1.02 [facility] Comment on above: Performed By: #### U SUNITA, MG, RENAL #### [facility] [address] [place] [address] Dr. Silver Harrison EGFR-AF AFGHAN 12 mL/min/1.73m2 Critically low >=60 [facility] Comment on above: Performed By: #### U SUNITA, MG, RENAL #### [facility] [address] [place] [address] Dr. Silver Harrison EGFR-NON AF AFGHAN 10 mL/min/1.73m2 Critically low >=60 [facility] Comment on above: Performed By: #### U SUNITA, MG, RENAL #### [facility] [address] [place] [address] Dr. Silver Harrison Glucose [Mass/Vol] 55 mg/dL Critically low 74-106 [facility] Comment on above: Performed By: #### U SUNITA, MG, RENAL #### [facility] [address] [place] [address] Dr. Silver Harrison Phosphate [Mass/Vol] 6.0 mg/dL Critically high 2.6-4.7 [facility] Comment on above: Performed By: #### U SUNITA, MG, RENAL #### [facility] [address] [place] [address] Dr. Silver Harrison Potassium [Moles/Vol] 4.3 mmol/L Normal 3.5-5.1 [facility] Comment on above: Performed By: #### U SUNITA, MG, RENAL #### [facility] [address] [place] [address] Dr. Silver Harrison Sodium [Moles/Vol] 142 mmol/L Normal 136-145 [facility] Comment on above: Performed By: #### U SUNITA, MG, RENAL #### [facility] [address] [place] [address] Dr. Silver Harrison Urea nitrogen [Mass/Vol] 55.0 mg/dL Critically high 7.0-18.0 [facility] Comment on above: Performed By: #### U SUNITA, MG, RENAL #### [facility] [address] [place] [address] Dr. Silver Harrison URIC ACID SERUMon 06-24-2022 Urate [Mass/Vol] 7.7 mg/dL Critically high 2.6-6.0 [facility] Comment on above: Performed By: #### U SUNITA, MG, RENAL #### [facility] [address] [place] [address] Dr. Silver Harrison VITAMIN D 25 OHon 06-24-2022 VIT D 25-OH 29.0 ng/mL Normal [facility] Comment on above: Performed By: #### F ETIBC FERR, VITAD #### [facility] [address] [place] [address] Dr. Silver Harrison VIT D RANGES SEE BELOW Normal [facility] Comment on above: Result Comment: <20 ng/mL Vit D deficient 20 - <30 ng/mL Vit D insufficient 30 - 100 ng/mL Vit D sufficient >100 ng/mL Potential Toxicity Performed By: #### F ETIBC, FERR, VITAD #### [facility] [address] [place] [address] Dr. Silver Harrison BASIC MET PANEL W/GFRon 05-28 Calcium [Mass/Vol] 8.0 mg/dL Low (8.6 - 10.6) [facility] Comment on above: Order Comment: STAT FACILITY: [facility] [id number] Performed By: #### C HEM-B, T20 #### [place] [facility] [address] [place], [address] Chloride [Moles/Vol] 112 mmol/L High (98 - 107) [facility] above: Order Comment: STAT FACILITY: [facility] [facility] [id number] Performed By: #### C HEM-B, T20 #### [place] [facility] [address] [place], [address] CO2 [Moles/Vol] 19 mmol/L Low (22 - 30) [facility] Comment on above: Order Comment: STAT FACILITY: [facility] [facility] [id number] Performed By: #### C HEM-B, T20 #### [place] [facility] [address] [place], [address] Creatinine [Mass/Vol] 4.98 mg/dL High (0.52 - 1.04) [facility] Comment on above: Order Comment: STAT FACILITY: [facility] [facility] [id number] Performed By: #### C HEM-B, T20 #### [place] [facility] [address] [place], [address] GFR- AMER 10.3 ML/M1.7 Low (60.0 - 140.1) [facility] Comment on above: Order Comment: STAT FACILITY: [facility] [facility] [id number] Performed By: #### C HEM-B, T20 #### [place] [facility] [address] [place], [address] GFR-NON AFRIC-AMER 8.5 ML/M1.7 Low (60.0 - 115.8) [facility] Comment on above: Order Comment: STAT FACILITY: [facility] [facility] [id number] Performed By: #### C HEM-B, T20 #### [facility] [facility] [address] [place], [address] Glucose [Mass/Vol] 104 mg/dL Normal (74 - 106) [facility] Comment on above: Order Comment: STAT FACILITY: [facility] [id number] Performed By: #### C HEM-B, T20 #### [place] [facility] [address] [place], [address] Potassium [Moles/Vol] 6.1 mmol/L Critically high (3. 5 - 5.1) [facility] Comment on above: Order Comment: STAT FACILITY: [facility] [id number] Result Comment: CRIT ICAL RESULT REPEATED AND REPORTED TO: LISA MARSHALL @ 11:50 AM 06/15/2022 RP Performed By: #### C HEM-B, T20 #### [facility] [address] [place], [address] Sodium [Moles/Vol] 142 mmol/L Normal (137 - 145) [facility] Comment on above: Order Comment: STAT FACILITY: [facility] [id number] Performed By: #### C HEM-B, T20 #### [place] [facility] [address] [place], [address] Urea nitrogen [Mass/Vol] 59 mg/dL High (7 - 17) [facility] Comment on above: Order Comment: STAT FACILITY: [facility] [id number] Performed By: #### Renea HEM-B, T20 #### [place] [facility] [address] [place], [address] CBC NO DIFFon 06-15-2022 Hematocrit (Bld) [Volume fraction] 28.5 % Low (37.0 - 47.0) [facility] Comment on above: Performed By: #### C HEM-B, T20 #### [place] [facility] [address] [place], [address] Hemoglobin (Bld) [Mass/Vol] 8.8 g/dL Low (12.0 - 16.0) [facility] Comment on above: Performed By: #### C HEM-B, T20 #### [place] [facility] [address] [place], [address] MCH (RBC) [Entitic mass] 30.0 pg Normal (27.0 - 33.0) [facility] Comment on above: Performed By: #### C HEM-B, T20 #### [place] [facility] [address] [place], [address] MCHC (RBC) [Mass/Vol] 30.9 g/dL Normal (30.0 - 37.0) [facility] Comment on above: Performed By: #### C HEM-B, T20 #### [place] [facility] [address] [place], [address] MCV (RBC) [Entitic vol] 97.3 fL Normal (81.0 - 99.0) [facility] Comment on above: Performed By: #### C HEM-B, T20 #### [place] [facility] [address] [place], [address] PLT 151 x10^3ul Normal (130 - 400) [facility] Comment on above: Performed By: #### C HEM-B, T20 #### [place] [facility] [address] [place], [address] RBC 2.93 x10^6ul Low (4.20 - 5.40) [facility] Comment on above: Performed By: #### C HEM-B, T20 #### [place] [facility] [address] [place], [address] RDW-SD 44.6 fl Normal (37.0 - 49.0) [facility] Comment on above: Performed By: #### C HEM-B, T20 #### [place] [facility] [address] [place], [address] WBC 11.09 x10^3ul High (3.80 - 10.60) [facility] Comment on above: Performed By: #### C HEM-B, T20 #### [facility] [address] [facility], [address] MG MAMM SCREEN MOIRA W CADon 0 01-19-2022 MG MAMM SCREEN MOIRA W CAD Patient: ESSENCE CASTORENA Exam Date: 01/19/2022 : 1950 Gender:F Ordering : DR CHRISTOPHER MANN M.D. Admission #: [id number] Family : Order #: [id number] CLICK HERE TO VIEW EXAM RADIOLOGY REPORT [...] with pancreatic cancer at age 67. LOCATION: [facility] BREAST COMPOSITION: Extremely dense, which lowers [...] MD on 01/19/2022 at 12:12 Normal [facility] Coding Summary.on 01-06-2019 Coding Summary. CODING DATE: 019 [facility] STATUS: Home (Routine DC) PAYOR: Medicare APC DESCRIPTION 5733 Level 3 Minor Procedures ADMIT DX: REASON FOR VISIT DX: H61.23 Impacted cerumen, bilateral FINAL DX: PRINCIPAL: H61.23 Impacted cerumen, bilateral SECONDARY: H90.0 Conductive hearing loss, bilateral I25.10 Atherosclerotic heart disease of [place] coronary artery without angina pectoris I12.9 Hypertensive chronic kidney disease with stage 1 through stage 4 chronic kidney disease, or unspecified chronic kidney disease E11.22 Type 2 diabetes mellitus with diabetic chronic kidney disease N18.3 Chronic kidney disease, stage 3 (moderate) F41.9 Anxiety disorder, unspecified Z79.4 prison (current) use of insulin PYMT PROC APC [...] Gomez Date Saved: 01/06/2019 08:21 am Normal [facility] Main OR Intraoperative Recor don 01-05-2019 Main OR Intraoperative Record IntraOp Document Type FT Summary Primary Physician: Emanuel Hartley DO Finalized Date/Time: 01/05/19 12:31:16 Pt. Name: ESSENCE CASTORENA Aleta Spence/Sex: 1950 Female Med Rec #: [id number] Physician: Emanuel Hartley DO Financial #: [id number] Pt. Type: A Room/Bed: [address] [address] Admit/Disch: 01/04/19 13:05:00 - 01/04/19 14:15:00 Institution: [...] Carleen Gill Role Performed Surgeon - Primary Inlayer - Primary Scrub - Primary Time In [...] taken back to [facility] for discharge. suzy carpenterconsultant rn Administration FT Pre-Care Text: Verifies allergies, administers [...] safely administered during the perioperative period For [facility] please see scanned medication reconcilliation form for medications used at the field during the procedure. Normal [facility] Inpatient Patient Summaryon 01-04-2019 Inpatient Patient Summary [facility] Clinical Discharge Instructions PERSON INFORMATION Name: ESSENCE CASTORENA PHYSICIANS Admitting Physician: Emanuel Hartley DO Attending Physician: Emanuel Hartley DO PCP: ALDA MITCHELL DO Discharge Diagnosis: Cerumen debris on tympanic membrane; Conductive hearing loss of both ears Comment: PATIENT EDUCATION INFORMATION Instructions: Medication Leaflets: Follow up: With: Address: When: Emanuel Hartley [address] [place] [phone] Business (1) MEDICATION LIST Comment: Derian [facility] Operative Reporton 9 Operative Report [...] brought to the Operating Room Suite at [facility], at which time she was placed [...] and satisfactory condition. Danilo Vera Dictated: 01/04/2019 #[id number] Typed: 01/04/2019 #[id number] cc: Emanuel Hartley D.O. [facility] Comment on above: Result Comment: [...] of cerumen impaction Anesthesia type: local. Normal [facility] Comment on above: Result Comment: Elec tronically Signed By: Emanuel Hartley DO\.br\Date and Time Signed: 01/04/19 14:09 EDT Patient Education - Texton 0 01-04-2019 Patient Education - Text [facility] Vital Signs Date Time Vital Sign Value Performing Clinician Facility 03-23-2023 14:06-0500 Diastolic blood pressure 80 mm[Hg] Danii Rodriguez MD Work Phone: [facility] 03-23-2023 14:06-0500 Heart rate 76 /min Danii Rodriguez MD Work Phone: [facility] 03-23-2023 14:06-0500 Systolic blood pressure 132 mm[Hg] Danii Rodriguez MD Work Phone: [facility] 02-05-2023 09:31-0400 Body temperature 98.2 [degF] MD Christopher Mann Work Phone: [facility] 02-05-2023 09:31-0400 Diastolic blood pressure 70 mm[Hg] MD Christopher Mann Work Phone: [facility] 02-05-2023 09:31-0400 Heart rate 72 /min MD Christopher Mann Work Phone: [facility] 02-05-2023 09:31-0400 Respiratory rate 18 /min MD Christopher Mann Work Phone: [facility] 02-05-2023 09:31-0400 SaO2% (BldA) [Mass fraction] 97 % MD Christopher Mann Work Phone: [facility] 02-05-2023 09:31-0400 Systolic blood pressure 130 mm[Hg] MD Christopher Mann Work Phone: [facility] 11-11-2022 16:12-0400 Diastolic blood pressure 68 mm[Hg] Christopher Sandhu [place] Work Phone: [facility] [facility] DO Work Phone: 11-11-2022 16:12-0400 Heart rate 84 /min Christopher Sandhu John[place] Work Phone: [facility] 250 DO Work Phone: 11-11-2022 16:12-0400 Systolic blood pressure 122 mm[Hg] Christopher Sandhu Johnathan Work Phone: [facility] 250 DO Work Phone: 07-31-2022 19:37-0400 Diastolic blood pressure 65 mm[Hg] MD Christopher Mann Work Phone: [facility] 07-31-2022 19:37-0400 Heart rate 78 /min MD Christopher Mann Work Phone: [facility] 07-31-2022 19:37-0400 Respiratory rate 20 /min MD Christopher Mann Work Phone: [facility] 07-31-2022 19:37-0400 SaO2% (BldA) [Mass fraction] 98 % MD Christopher Mann Work Phone: [facility] 07-31-2022 19:37-0400 Systolic blood pressure 142 mm[Hg] MD Christopher Mann Work Phone: [facility] 07-31-2022 15:05-0400 Body height 162.56 cm MD Christopher Mann Work Phone: [facility] 07-31-2022 15:05-0400 Body temperature 97.6 [degF] MD Christopher Mann Work Phone: [facility] 07-31-2022 15:05-0400 Body weight 106.14 kg MD Christopher Mann Work Phone: [facility] 07-31-2022 10:41-0400 Body temperature 98.4 [degF] MD Christopher Mann Work Phone: [facility] 07-31-2022 10:41-0400 Body weight 109 kg MD Christopher Mann Work Phone: [facility] 07-31-2022 10:41-0400 Diastolic blood pressure 68 mm[Hg] MD Christopher Mann Work Phone: [facility] 07-31-2022 10:41-0400 Heart rate 74 /min MD Christopher Mann Work Phone: [facility] 07-31-2022 10:41-0400 Respiratory rate 20 /min MD Christopher Mann Work Phone: [facility] 07-31-2022 10:41-0400 SaO2% (BldA) [Mass fraction] 97 % MD Christopher Mann Work Phone: [facility] 07-31-2022 10:41-0400 Systolic blood pressure 136 mm[Hg] MD Christopher Mann Work Phone: [facility] 07-14-2022 17:20-0400 Body height 160.02 cm Essie Merlyn Other [employer] Other 07-14-2022 17:20-0400 Diastolic blood pressure 70 mm[Hg] Essie Merlyn Other [employer] Other 07-14-2022 17:20-0400 Respiratory rate 20 /min Essie Merlyn Other [employer] Other 07-14-2022 17:20-0400 SaO2% (BldA) [Mass fraction] 96 % Essie Merlyn Other [facility] [employer] Other 07-14-2022 17:20-0400 Systolic blood pressure 153 mm[Hg] Essie Merlyn Other [facility] [employer] Other 07-01-2022 09:42-0500 Body temperature 98.1 [degF] MD Christopher Mann Work Phone: [facility] 07-01-2022 09:42-0500 Diastolic blood pressure 71 mm[Hg] MD Christopher Mann Work Phone: [facility] 07-01-2022 09:42-0500 Heart rate 68 /min MD Christopher Mann Work Phone: [facility] 07-01-2022 09:42-0500 Respiratory rate 18 /min MD Christopher Mann Work Phone: [facility] 07-01-2022 09:42-0500 SaO2% (BldA) [Mass fraction] 96 % MD Christopher Mann Work Phone: [facility] 07-01-2022 09:42-0500 Systolic blood pressure 134 mm[Hg] MD Christopher Mann Work Phone: [facility] 07-01-2022 09:27-0500 Body height 162.56 cm MD Christopher Mann Work Phone: [facility] Encounters Encounter Date Encounter Type Care Provider Facility Start: 03-23-2023 End: 03-23-2023 ambulatory [facility] Start: 03-23-2023 End: 03-23-2023 Office outpatient visit 15 minutes Danii Rodriguez MD Work Phone: [facility] Comment on above: Atherosclerosis of n ative coronary artery of [place] heart without angina pectoris (Primary Dx); Chest discomfort; Essential hypertension, benign; Mixed hyperlipidemia; Dialysis patient (CMS/HCC); Cerebrovascular accident (CVA), unspecified mechanism (CMS/HCC) Start: 02-05-2023 ambulatory Essence Alicea Facility:[facility] Start: 02-05-2023 End: 02-05-2023 ambulatory MD Christopher Mann Work Phone: [facility] Work Phone: Start: 02-05-2023 End: 02-05-2023 Registered Recurring MD Christopher Mann Work Phone: [facility] Work Phone: Start: 11-11-2022 Office outpatient vi sit 25 minutes Christopher Mann Work Phone: [facility] 250 DO Work Phone: Start: 11-11-[address] Danii Rodriguez Facility: Start: 09-07-2022 End: 09-07-[address] CHRISTOPHER MANN Facility:H1 Start: 08-04-2022 ambulatory Danii Rodriguez Faci lity:[id number] Start: 08-03-2022 ambulatory Danii Rodriguez Faci lity:[id number] Start: 08-02-2022 End: 08-05-2022 Evaluation and management of inpatient Christopher Mann Facility:[facility] Start: 08-02-2022 ambulatory Danii Rodriguez Faci lity:[id number] Start: 08-01-[address] Danii Rodriguez Facility:[id number] Start: 08-01-2022 ambulatory Danii Rodriguez Faci lity:[id number] Start: 07-31-2022 Evaluation and manag ement of inpatient MD Christopher Mann Work Phone: [facility] [place] [facility] Work Phone: Start: 07-31-2022 Registered Recurring MD Christopher Mann Work Phone: [facility] Work Phone: Start: 07-31-2022 End: 07-31-[address] CHRISTOPHER MANN Facility:H1 Start: 07-29-2022 End: 07-29-[address] CHRISTOPHER MANN Facility:H1 Start: 07-24-2022 End: 07-24-[address] CHRISTOPHER MANN Facility:H1 Start: 07-21-2022 End: 07-21-2022 ambulatory Essie Merlyn Other [facility] Other Start: 07-21-2022 Telephone encounter Essie Merlyn [facility] Start: 07-20-2022 Telephone encounter Essie Merlyn [facility] Start: 07-20-2022 End: 07-20-2022 ambulatory ESSIE MERLYN [facility] Other Start: 07-17-2022 End: 07-17-[address] CHRISTOPHER MANN Facility:H1 Start: 07-14-2022 End: 07-14-2022 ambulatory Essie Merlyn Other [facility] Other Start: 07-14-2022 Office outpatient ne w 45 minutes Essie Merlyn [facility] Start: 07-03-2022 End: 07-03-[address] ARTURO GUO . Facility:H1 Start: 07-01-2022 End: 07-01-2022 ambulatory MD Christopher Mann Work Phone: [facility] Work Phone: Start: 07-01-2022 End: 07-01-2022 Registered Recurring MD Christopher Mann Work Phone: [facility] Work Phone: Start: 06-24-2022 End: 06-24-[address] CHRISTOPHER MANN Facility:H1 Start: 01-19-2022 End: 01-20-[address] CHRISTOPHER MANN Facility:H1 Procedures Date Procedure Procedure Detail Performing Clinician Start: 01-29-2023 Mammography Danii phillips MD Work Phone: Start: 07-31-2022 Plain chest X-ray MD James Mann Work Phone: Appendectomy Christopher Sandhu Johnathan Work Phone: Hysterectomy Rugarlet Sandhu Johnathan Work Phone: Operative procedure on knee Rugarlet Sandhu [place] Work Phone: Total colonoscopy Christopher Sandhu Al da Work Phone: Plan of Treatment Date Care Activity Detail Author Start: 03-28-2024 End: 03-28-2024 Patient encounter procedure 03/28/2024 2:00 PM EST Office Visit [facility] [address] [facility] [address] [place] [address] Danii Rodriguez MD [address] [facility] [address] [place] [address] [facility] Start: 01-30-2024 Screening for malignant neoplasm of breast Mammogram [facility] Start: 03-23-2023 FUV, Provider: Danii Rodriguez, Status: Pen, Time: 2:20 PM FUV, Provider: Danii Rodriguez, Status: Pen, Time: 2:20 PM [facility] 250 DO Work Phone: Start: 12-25-2022 Influenza vaccination Influenza Vaccine (#1) [facility] Start: 07-31-2022 Bacteria identified in Urine by Culture [facility] Start: 11-19-1999 Zoster Vaccines (1 of 2) Zoster Vaccines (1 of 2) [facility] Start: 11-19-1971 DTaP/Tdap/Td Vaccines (1 - Tdap) DTaP/Tdap/Td Vaccines (1 - Tdap) [facility] Start: 11-19-1967 Diabetes mellitus screening Diabetes Screening [facility] Start: 11-19-1967 Hepatitis C screening Hepatitis C Screening [facility] Start: 11-19-1955 Pneumococcal Vaccine: 65+ Years (1 - PCV) Pneumococcal Vaccine: 65+ Years (1 - PCV) [facility] Start: 05-21-1950 COVID-19 Vaccine (#1) COVID-19 Vaccine (#1) [facility] Start: 1950 Lipid panel Lipid Panel [facility] Start: 1950 Screening for malignant neoplasm of colon [facility] Start: 1950 Yearly Adult Physical Yearly Adult Physical [facility] Immunizations Immunization Date Immunization Notes Care Provider Fa cility 05-03-2020 COVID-19 Manjinder Gonzalez (Pfizer) MD Christopher Mann Work Phone: [facility] 04-15-2020 COVID-19 Manjinder Gonzalez (Pfizer) MD Christopher Mann Work Phone: [facility] Payers Date Payer Category Payer Private Health Insurance [id number] 2022 Self-pay [id number] 2017 Medicaid MEDICAID MEDICAI D [id number] 2017-Present [address] [place] [address] [id number] 1959 Medicaid [id number] 1959 Medicare [id number] 1949 Unknown [id number] ..[id number] 56 1949 Unknown [id number] 2.16.840.1.391732.3.579.2.3 56 1949 Unknown [id number] 2.16.840.1.755830.3.579.2.3 56 1949 Unknown [id number] 2.16.840.1.029263.3.579.2.3 56 1949 Unknown [id number] 2.16.840.1.396233.3.579.2.3 56 1949 Unknown [id number] 2.16.840.1.943475.3.579.2.5 93 1949 Unknown [id number] 2.16.840.1.925973.3.579.2.5 93 1949 Unknown [id number] 2.16.840.1.558510.3.579.2.5 93 1949 Unknown [id number] 2.16.840.1.767337.3.579.2.5 93 1949 Unknown [id number] 2.16.840.1.711445.3.579.2.5 93 1949 Unknown [id number] 2.16.840.1.014778.3.579.2.5 93 1949 Unknown [id number] 2.16.840.1.945917.3.579.2.5 93 1949 Unknown [id number] 2.16.840.1.597997.3.579.2.5 93 1949 Unknown [id number] 2.16.840.1.362493.3.579.2.5 93 1949 Unknown [id number] 2.16.840.1.524002.3.579.2.5 93 1949 Unknown [id number] 2.16.840.1.307592.3.579.2.3 56 1949 Unknown [id number] 2.16.840.1.141290.3.579.2.3 56 1949 Unknown [id number] 2.16.840.1.692870.3.579.2.1 244 Unknown O [id number] Unknown Unknown [id number] 2.16.840.1.978008.3.579.2.5 31 Unknown [id number] 2.16.840.1.506668.3.579.2.5 31 Social History Date Type Detail Facility Start: 07-01-2022 End: 03-23-2023 Tobacco smoking status NHIS Ex-smoker (finding) [facility] Start: 1950 Sex Assigned At Female [facility] Start: 03-23-2023 Sex Assigned At [employer] [facility] [employer] Other Start: 03-23-2023 Consumes alcohol occasionally Consumes alcohol occasionally -[facility] 250 DO Work Phone: History of tobacco use Current smoker [facility] Work Phone: History of tobacco use Cigarette Smoker [facility] Work Phone: Start: 03-23-2023 Tobacco use and exposure Smokeless tobacco non-user [facility] Work Phone: Start: 03-23-2023 Alcohol intake Ex-drinker (finding) [facility] Work Phone: Start: 03-19-2023 Alcohol Comment occasional [facility] Work Phone: Start: 1950 Sex Assigned At Not on file [facility] Work Phone: Start: 03-13-2023 End: 03-23-2023 Exposure to SARS-CoV-2 (event) Not sure [facility] Medical Equipment Procedure Code Equipment Code Equipment Origin al Text Equipment Identifier Dates Phacoemulsification of cataract with intraocular lens implantation Posterior-chamber intraocular lens, pseudophakic [id number] FDA Start: 04-10-2021 Phacoemulsification of cataract with intraocular lens implantation Posterior-chamber intraocular lens, pseudophakic [id number] 09 [facility] Start: 05-22-2021 Clinical Notes 07-01-2022 to 03-23-2023 Danii Rodriguez MD - 03/23/2023 2:20 PM ESTPatient Instructions Note Date & Type Note Facility 03-23-2023 History of Present illness Narrative Subjective Essence Castorena is a 72 y.o. female Chief Complaint Follow-up HPI Patient is here for follow-up continue management for history of coronary artery disease with remote PCI in Sod, hypertension, hyperlipidemia. Patient is a resident of a local prison. She had dense left-sided hemiplegia. She denies any chest pain but reports some mild shortness of breath since the last time I saw her. She has limited exercise tolerance. She has been stable cardiac cifuentes. Assessment 1. Coronary artery disease prior intervention in Sod detail is lacking. Recent evaluation of atypical chest pain. Stress test and echocardiogram appears to be reassuring 2. Chronic kidney disease on hemodialysis 3. Hypertension controlled 4. Hyperlipidemia on treatment 5. Diabetes mellitus 6. History of stroke with left-sided hemiplegia almost wheelchair-bound 7. [facility] resident 8. Intermittent episode of hemodialysis associated [...] times a day., Disp: , Rfl: HYDROcodone-acetaminophen ([place]) 5-325 mg tablet, Take 1 tablet by [...] Disp: , Rfl: Assessment/Plan 1. Atherosclerosis of [place] coronary artery of [place] heart without angina pectoris Follow Up In Cardiology 2. Chest discomfort Follow Up In Cardiology 3. Essential hypertension, benign 4. Mixed hyperlipidemia 5. Dialysis patient (CMS/HCC) 6. Cerebrovascular accident (CVA), unspecified mechanism (CMS/HCC) documented in this encounter [facility] Work Phone: 03-23-2023 Instructions Shannan York CMA [...] of your visit. documented in this encounter [facility] Work Phone: 07-31-2022 Progress note Note Date/Time July 31, 2022 11:02am [facility] at [address] [address] Hem/Onc Follow Up Note - OP Signed Patient: Amparo Castorena MR#: [id number] : 1950 Acct:[id number] Age/Sex: 71 / F Type: REG RCR Copies to: MD Christopher Palafox, MD~ Date of Service: 07/31/2022 Time of Service: 11:00 - Assessment & Plan (1) Anemia in chronic kidney disease (CKD) Plan: Anemia of chronic kidney disease CKD-IV on dialysis. Previously seen at [facility] and transferred care to [facility] as of 07/01/22 now on dialysis, gets epo agents through dialysis. Is awaiting fistula for dialysis, this will be done in [place] Previous anemia work-up completed prior to transfer [...] with a history of CVA, diabetes, PVD, GA x 2, cataracts, hyperlipidemia, HTN, GERD, and anemia of CKD. Surgical history includes hysterectomy, carpal tunnel surgery and bilateral arthroscopic knee surgery. She denies any personal or family history of cancer. She is referred by Dr. Sanchez Jean at [facility] to establish care for her anemia from CKD. She recently started Aranesp weekly and is in the process of getting dialysis fistula placed to start dialysis. Most recent labs reveal hgb 8.1, wbc 13.9, platelets 135,000, anc 10.8. Creatinine 4.9 with GFR 9, calcium 8.0. She is transferring care as she resides at [facility] in [place] and this is muchcloser for her and [...] for coordination of care (as documented) and eyfp-mc-plbb counseling of patient and/or family. [facility] - Medical History Medical History: Medical History [...] calcium 500 mg-D3 400 unit-K 15 mcg-folic [id number] tablet 1 tab PO DAILY 03/28/21 [History [...] bisacodyl 10 mg rectal suppository 10 mg [place] DAILY PRN Constipation 07/01/22 [History Confirmed 07/31/22] [...] signed by Tex Kim II, DO> 07/31/22 64[address] [facility] Work Phone: 1(317) 823-768303-21-2023 Evaluation note* Encounter Date Diagnosis Assessment Notes [...] the acarbose due to the advanced CKD. [facility] Other 03-08-2023 Consult note Author Essence Alicea [facility] July 01, 2022 1:16pm Note Date/Time July 01, 2022 9:47 am [facility] at [address] [address] Hem/Onc Consult Note - OP Signed Patient: Amparo Castorena MR#: [id number] : 1950 Acct:[id number] Age/Sex: 71 / F Type: REG RCR Copies to: MD Christopher Palafox MD~ HPI Date/Time of Service: Date of Service: 07/01/2022 Time of Service: 09:46 Referring Provider/PCP: Referring Provider: Sanchez Jean MD PCP: Christopher Mann MD - History of Present Illness Chief Complaint: Patient is transferring care from [facility] for anemia. Resides at [facility]. Outside labs. HPI: Amparo is a 71-year-old female with a history of CVA, diabetes, PVD, GA x 2, cataracts, hyperlipidemia, HTN, GERD, and anemia of CKD. Surgical history includes hysterectomy, carpal tunnel surgery and bilateral arthroscopic knee surgery. She denies any personal or family history of cancer. She is referred by Dr. Sanchez Jean at [facility] to establish care for her anemia from CKD. She recently started Aranesp weekly and is in the process of getting dialysis fistula placed to start dialysis. Most recent labs reveal hgb 8.1, wbc 13.9, platelets 135,000, anc 10.8. Creatinine 4.9 with GFR 9, calcium 8.0. She is transferring care as she resides at [facility] in [place] and this is muchcloser for her and [...] fevers, chills, sweats, pain or other complaints. [facility] - Medical History Medical History: Medical History [...] Allergy (Verified 07/01/22 09:34) Swelling [facility] [[facility] Allergy (Verified 07/01/22 09:34) Swelling Home Medications acarbose 100 mg tablet 100 mg PO BID dm 03/28/21 [History Confirmed 07/01/22] amlodipine 5 mg tablet (Norvasc) 10 mg PO DAILY 03/28/21 [History Confirmed 07/01/22] atorvastatin 20 mg tablet 20 mg PO QHS 03/28/21 [History Confirmed 07/01/22] calcium 500 mg-D3 400 unit-K 15 mcg-folic [id number] tablet 1 tab PO DAILY 03/28/21 [History [...] bisacodyl 10 mg rectal suppository 10 mg TX DAILY PRN Constipation 07/01/22 [History Confirmed 07/01/22] [...] will start dialysis soon. Previously seen at [facility] and transferred care to [facility] as of 07/01/22 She is currently on Aranesp weekly, will clarify dose. [facility]. Is awaiting fistula for dialysis, this will be done in [place] Previous anemia work-up completed prior to transfer [...] for coordination of care (as documented) and zlaq-uj-mrhk counseling of patient and/or family. Dictated By: Essence Alicea APRN DD/ [id number] Signed By: <Electronically signed by ELLA Alicea> 07/01/22 1316 [facility] Work Phone: Evaluation noteNo assessment information available [facility] Work Phone: [facility]No [facility] [employer] Other Evaluation note* Diagnosis Onset Date Resolution Status Anemia in chronic kidney disease (CKD) acute Anemia in chronic kidney disease (CKD) acute Atypical chest pain acute UTI (urinary tract infection) acute [facility] Work Phone: Evaluation note* Diagnosis Onset Date Resolution Status Anemia in chronic kidney disease (CKD) acute [facility] Work Phone: Evaluation note* Diagnosis Atherosclerosis of [place] coronary artery of [place] heart without angina pectoris- Primary Chest discomfort Other chest pain Essential hypertension, benign Mixed hyperlipidemia Dialysis patient (CMS/HCC) Renal dialysis status Cerebrovascular accident (CVA), unspecified mechanism ([facility]) documented in this encounter [facility] Work Phone: History general Narrative - Reported* [...] PVD (PERIPHERAL VASCULAR DISEASE ) Medical History GA X2 Medical History CVA (CEREBRAL VASCULAR ACCIDENT) Surgical History Rt Knee Scope Surgical History Lt Knee Scope 1999 Surgical History Carpal Tunnel Surgical History Rt Hand - Tumor - benign Surgical History Tubal 1985 Surgical History Hyster 2005 Surgical History Heart Cath with Stents 09/2007 Surgical History FISTULA PLACEMENT IN RIGHT ARM 07/13/22 Hospitalization History see Surgery list [facility] [employer] Other History of Present illness Narrative* Patient is here for follow-up from recent hospitalization. She is accompanied by her daughter. Patient appears to be poor historian. Most of the information gathered from the daughter. I saw her during recent hospitalization for evaluation of atypical chest pain. Patient reported history of coronary artery disease prior intervention in Sod. Detail is lacking. She does have history [...] 1. Coronary artery disease prior intervention in Sod detail is lacking. Recent evaluation of atypical chest pain. Stress test and echocardiogram appears to be reassuring * 2. Chronic kidney disease on hemodialysis * 3. Hypertension controlled * 4. Hyperlipidemia on treatment * 5. Diabetes mellitus * 6. History of stroke with left-sided weakness and * 7. [facility] resident * 8. Intermittent episode of hemodialysis [...] conservative management and the patient is DNR [facility] 250 DO Work Phone: Progress note Author Tex Kim [facility] July 31, 2022 11:05am Note Date/Time July 31, 2022 11:0 2am [facility] [place] [address] Hem/Onc Follow Up Note - OP Signed Patient: Amparo Castorena MR#: [id number] : 1950 Acct:[id number] Age/Sex: 71 / F Type: REG RCR Copies to: MD Christopher Palafox MD~ Date of Service: 07/31/2022 Time of Service: 11:00 - Assessment & Plan (1) Anemia in chronic kidney disease (CKD) Plan: Anemia of chronic kidney disease CKD-IV on dialysis. Previously seen at [facility] and transferred care to [facility] as of 07/01/22 now on dialysis, gets epo agents through dialysis. Is awaiting fistula for dialysis, this will be done in [place] Previous anemia work-up completed prior to transfer [...] with a history of CVA, diabetes, PVD, GA x 2, cataracts, hyperlipidemia, HTN, GERD, and anemia of CKD. Surgical history includes hysterectomy, carpal tunnel surgery and bilateral arthroscopic knee surgery. She denies any personal or family history of cancer. She is referred by Dr. Sanchez Jean at [facility] to establish care for her anemia from CKD. She recently started Aranesp weekly and is in the process of getting dialysis fistula placed to start dialysis. Most recent labs reveal hgb 8.1, wbc 13.9, platelets 135,000, anc 10.8. Creatinine 4.9 with GFR 9, calcium 8.0. She is transferring care as she resides at [facility] in [place] and this is muchcloser for her and [...] for coordination of care (as documented) and tkiz-qy-ecpl counseling of patient and/or family. [facility] - Medical History Medical History: Medical History [...] calcium 500 mg-D3 400 unit-K 15 mcg-folic [id number]-qzwnzwoc tablet 1 tab PO DAILY 03/28/21 [History [...] bisacodyl 10 mg rectal suppository 10 mg [place] DAILY PRN Constipation 07/01/22 [History Confirmed 07/31/22] [...] by Tex Kim II, DO> 07/31/22 1105 [facility] Work Phone: Progrykc note Author Essence Chinchillainfirmary lt[facility] hospital[facility] miguel [facility] February 05, 2023 9:59am Note Date/Time February 05, 2023 9 :50am [facility] [place] [address] Hem/Onc Follow Up Note - OP Signed Patient: Amparo Castorena MR#: [id number] : 1950 Acct:[id number] Age/Sex: 72 / F Type: REG RCR Copies to: MD Christopher Palafox MD~ Date of Service: 02/05/2023 Time of Service: 09:49 - Assessment & Plan (1) Anemia in chronic kidney disease (CKD) Plan: Anemia of chronic kidney disease CKD-IV on dialysis. Previously seen at [facility] and transferred care to [facility] as of 07/01/22 now on dialysis, gets [...] with a history of CVA, diabetes, PVD, GA x 2, cataracts, hyperlipidemia, HTN, GERD, and anemia of CKD. Surgical history includes hysterectomy, carpal tunnel surgery and bilateral arthroscopic knee surgery. She denies any personal or family history of cancer. She is referred by Dr. Sanchez Jean at [facility] to establish care for her anemia from CKD. She recently started Aranesp weekly and is in the process of getting dialysis fistula placed to start dialysis. Most recent labs reveal hgb 8.1, wbc 13.9, platelets 135,000, anc 10.8. Creatinine 4.9 with GFR 9, calcium 8.0. She is transferring care as she resides at [facility] in [place] and this is muchcloser for her and [...] for coordination of care (as documented) and nxkk-mu-ztnu counseling of patient and/or family. [facility] - Medical History Medical History: Medical History [...] calcium 500 mg-D3 400 unit-K 15 mcg-folic [id number] tablet 1 tab PO DAILY 03/28/21 [History [...] bisacodyl 10 mg rectal suppository 10 mg TX DAILY PRN Constipation 07/01/22 [History Confirmed 02/05/23] [...] <Electronically signed by ELLA Alicea> 02/05/23 0[address] [facility] Work Phone: Reason for referral (narrative)* Consultation (Routine) - Authorized Specialty Diagnoses / Procedures Referred By Savanah t Referred To Contact Cardiology Diagnoses Atherosclerosis of lower [place] coronary artery of [place] heart without angina pectoris Chest discomfort Procedures Follow Up In Cardiology Danii Rodriguez MD [address] [place], [place] [address] [address], [address] [address] Danii Rodriguez MD [facility], [address] [place] [address] Referral ID Status Reason Start Date Expiration Date V isits Requested Visits Authorized [id number] Authorized 03/23/2023 03/22/2024 1 [facility] Work Phone: Summary Purpose Family History No [...] section and content) DATE CREATED AUTHOR 01/06/2019 [facility] DATE CREATED AUTHOR AUTHOR'S ORGANIZ ATION 06/15/2022 [facility] DATE CREATED AUTHOR AUTHOR'S ORGANIZ ATION 08/26/2022 [facility] DATE CREATED AUTHOR AUTHOR'S ORGANIZ ATION 09/07/2022 [facility] [place] [facility] DATE CREATED AUTHOR AUTHOR'S ORGANIZ ATION 11/12/2022 [facility] DATE CREATED AUTHOR AUTHOR'S ORGANIZ ATION 03/10/[address] [facility] DATE CREATED AUTHOR AUTHOR'S ORGANIZ ATION 03/18/2023 [facility] DATE CREATED AUTHOR AUTHOR'S ORGANIZ ATION 03/25/2023 [facility] Ob Gyn Teams (unrecognized sec tion and content) Team [...] Young MD Admit Provider, Attending Provider Active Environmental Professional Relationship Specialty Start Date End Date Christopher Mann MD [address] [facility] [address] [place] [id number] PCP - General 11/11/22 Goals (unrecognized section [...] BE BASED ON THE PRIMARY CLINICAL RECORDS. [facility]. provides no warranty or guarantee of the accuracy or completeness of information in this document.
[2023-08-04 09:21] LABS: Basophils Absolute Auto 0.1 10^3/uL (0.0-0.1); Basophils Percent Auto 0.5 % (0.2-2.0); Eosinophils Absolute Auto 0.2 10^3/uL (0.0-0.7); Eosinophils Percent Auto 1.9 % (0.9-7.0); Hematocrit 32.9 % (36.0-48.0); Hemoglobin 10.5 g/dL (12.0-16.0); Immature Granulocytes Abs Auto 0.05 10^3/uL (0.00-0.03); Immature Granulocytes Pct Auto 0.4 % (0.0-0.5); Lymphocytes Absolute Auto 2.9 10^3/uL (1.2-3.8); Lymphocytes Percent Auto 23.6 % (20.5-60.0); Mean Corpuscular HGB Conc 31.9 g/dL (29.9-35.2); Mean Corpuscular Volume 106.5 fL (81.0-99.0); Mean Platelet Volume 10.5 fL (9.5-13.5); Monocytes Absolute Auto 0.7 10^3/uL (0.3-0.8); Monocytes Percent Auto 5.5 % (1.7-12.0); Neutrophils Absolute Auto 8.3 10^3/uL (1.4-6.5); Neutrophils Percent Auto 68.1 % (43.0-75.0); Platelet Count 132 10^3/uL (150-450); Red Blood Count 3.09 10^6/uL (4.20-5.40); Red Cell Distribution Width 13.4 % (11.0-15.0); White Blood Count 12.2 10^3/uL (4.0-11.0)
== END 2023-08-04 06:11 | disposition home or self-care (01) ==
LOC: LAB 06:10
PROVIDERS: PCP Family Medicine; Visit Provider Nurse Practitioner Family
DX: N18.4 Chronic kidney disease, stage 4 (severe) (principal); E08.40 Diabetes mellitus due to underlying condition with diabetic neuropathy, unspecified
CPT/HCPCS: 36415; 85025

== ENCOUNTER 2023-08-06 03:05 | Outpatient (REF) | payer MEDICARE, MEDICAID, SELFPAY ==
--- OUTSIDE RECORDS SUMMARY | 2023-08-06 03:15 | XMS_ITS | CCD ---
Author Organization [facility] Care Team Providers Care Activities Counselor Name Role Phone MD Christopher Mann Primary Care Provider ELLA Alicea Attending Provider MD Sanchez Jean Referring Provider Essie Salas Unavailable MD Christopher Mann Primary Care Provider ELLA Alicea Attending Provider MD Sanchez Jean Referring Provider SAMIRA Moss Emergency Provider [phone] MD Camila Young Admit Provider [phone] MD Camila Young Attending Provider Danii Rodriguez Attending Unavailable TraboulDanii menjivar Attending [...] Attending Unavailable JOHNATHAN, DR WHITE Admitting Unavailable ConshohockenChristopher Unavailable Unavailable Unavailable MD Christopher Mann Primary [...] Drug Allergy 3 Itching, Swelling [facility] (5 sources) Diclofenac; Translations: [diclofenac] Drug Allergy [address] [facility] (5 sources) miSOPROStol; Translations: [misoprostol] Drug Allergy [address] [facility] (5 sources) Cephalexin; Translations: [Keflex] Drug Allergy 6 reddened pruritic rash, Swelling, Itching [facility] (4 sources) Diclofenac / miSOPROStol Drug Allergy 3 [facility] (1 source) Diclofenac / miSOPROStol Drug Allergy 6 [facility] (1 source) Diclofenac / miSOPROStol; Translations: [Arthrotec TABS] Drug Allergy Hives, Itching, Rash [facility] [employer] 250 DO Work Phone: (1 source) shellfish, unspecified Allergy to substance (finding) Vomiting [facility] 250 DO Work Phone: (2 sources) Shellfish; Translations: [SHE[employer]TAIN[employer] PRODUCTS] Propensity to adverse reactions 3 Nausea/vomiting [facility] Work Phone: (1 source) Diclofenac / miSOPROStol; Translations: [DICLOFENAC-MIS OPROSTOL] Drug Allergy 3 [facility] 3 Repository Medications Current Medications Medication [...] times daily as needed for pain HYDROcodone-acetaminophen ([place]) 5-325 mg tablet Take 1 tablet by [...] 03-28-2021 End: 06-30-2022 Bisacodyl Active 10 MG [place] Daily July 01, 2022 1:00am Calcium + [...] 2 tablets Orally Once a day Active Fnenmxg-M0-X-Fa-Z64-Q-Mm nerals (4 sources) Start: 03-28-2021 take 1 tablet by mouth once daily Vmpmjph-Z2-H-Fa-B12-C-M inerals Active 1 TAB PO Daily March 28, 2021 1:00am Start: 03-28-2021 take 1 tablet by haresh th once daily Xytigkc-I7-M-Gw-V34-BS22-G-Gxuavaps Active 1 TAB PO Daily March 28, [...] % as directed Externally Active Epoetin Chris 83883 UNIT/ML (3 sources) Epoetin Chris 200 00 [...] 2021 1:00am take 1 capsule by mo [facility] three times daily gabapentin (Neurontin) 300 mg [...] l admission (1 source) Lives in a [facility]; Translations: [Person living in residential institution] Episodic [...] 11-11-2022 Follow-up visit Diagnoses/Problems Assessed Atherosclerosis of [place] coronary artery without angina pectoris (414.01) (I25.10) Chest discomfort (786.59) (R07.89) Benign essential hypertension (401.1) (I10) Hyperlipidemia (272.4) (E78.5) Stroke (434.91) (I63.9) Dialysis patient (V45.11) (Z99.2) [facility] resident (V60.6) (Z59.3) Former smoker (V15.82) (Z87.891) Orders SocHx: Former smoker Tobacco Use Screening; Status:Complete; Done: [id number] Patient Instructions Please bring all medicines, vitamins, [...] of coronary artery disease prior intervention in [place]. Detail is lacking. She does have history [...] 1. Coronary artery disease prior intervention in [place] detail is lacking. Recent evaluation of atypical chest pain. Stress test and echocardiogram appears to be reassuring 2. Chronic kidney disease on hemodialysis 3. Hypertension controlled 4. Hyperlipidemia on treatment 5. Diabetes mellitus 6. History of stroke with left-sided weakness and 7. [facility] resident 8. Intermittent episode of hemodialysis associated [...] smoker (V15.82) (Z87.891) No illicit drug use [facility] resident (V60.6) (Z59.3) Review of Systems Constitutional: [...] habits an (more content not included)... Normal [email or web address] Tobacco Screening.on 023 Fall risk assessment a) No falls within the last year [facility] [employer] 250 DO Work Phone: Tobacco use status [facility] b) No [facility] [employer] 250 DO Work Phone: Glucose Poct Glucometerson 0 08-05-2022 Glucose [Mass/Vol] 113 mg/dL Normal [facility] Comment on above: Result Comment: [facility] Glucose Reference Range is dependent on time and content of last meal. Glucose of more than 200 mg/dL in a nonstressed, ambulatory subject supports the diagnosis of Diabetes Mellitus. PERFORMED BY: [place] [address] PATHOLOGIST [employer] DANII HAYNES M.D. Performed By: #### B MP, CBC #### [address] Glucose [Mass/Vol] 108 mg/dL Normal [facility] Comment on above: Result Comment: [facility] Glucose Reference Range is dependent on time and content of last meal. Glucose of more than 200 mg/dL in a nonstressed, ambulatory subject supports the diagnosis of Diabetes Mellitus. PERFORMED BY: [place] [address] PATHOLOGIST [employer] DANII HAYNES M.D. Performed By: #### G CAPRICE #### Point of Care testing , Renal Function Panelon 08-05 Albumin [Mass/Vol] 3.3 g/dL Low 3.5-5.7 [facility] Comment on above: Order Comment: pt wo uldnt let me retry to get the blood work Performed By: #### B MP, CBC #### [place] [address] [place] Anion gap [Moles/Vol] 13.9 mmol/L Normal 6.0-15.0 [facility] Comment on above: Order Comment: pt wo uldnt let me retry to get the blood work Performed By: #### B MP, CBC #### [place] [address] [place] Calcium [Mass/Vol] 8.6 mg/dL Normal 8.6-10.3 [facility] Comment on above: Order Comment: pt wo uldnt let me retry to get the blood work Performed By: #### B MP, CBC #### [place] [address] [place] Chloride [Moles/Vol] 98 mmol/L Normal 98-107 [facility] Comment on above: Order Comment: pt wo uldnt let me retry to get the blood work Performed By: #### B MP, CBC #### [address] CO2 [Moles/Vol] 26.3 mmol/L Normal 21.0-31.0 [facility] Comment on above: Order Comment: pt wo uldnt let me retry to get the blood work Performed By: #### B MP, CBC #### [facility] [address] Creatinine [Mass/Vol] 5.26 mg/dL Significan t change up 0.60-1.[address] [facility] Comment on above: Order Comment: pt wo uldnt let me retry to get the blood work Performed By: #### B MP, CBC #### [address] Creatinine Clr Calc Pharmacy 11.05 [facility] Comment on above: Order Comment: pt wo uldnt let me retry to get the blood work Result Comment: PERF ORMED BY: [place] [address] PATHOLOGIST [employer] DANII HAYNES M.D. Performed By: #### B MP, CBC #### [address] GFR/1.73 sq M.predicted MDRD (S/P/Bld) [Vol rate/Area] 8.165 mL/min/{1.73_m2} [facility] Comment on above: Order Comment: pt wo uldnt let me retry to get the blood work Performed By: #### B MP, CBC #### [facility] [address] [place] [address] [place] Glucose [Mass/Vol] 111 mg/dL High 70-100 [facility] Comment on above: Order Comment: pt wo uldnt let me retry to get the blood work Result Comment: [place] om Glucose Reference Range is dependent on time and content of last meal. Glucose of more than 200 mg/dL in a nonstressed, ambulatory subject supports the diagnosis of Diabetes Mellitus. ADA recommended reference range Performed By: #### B MP, CBC #### [facility] [address] [place] [address] [place] Phosphate [Mass/Vol] 5.3 mg/dL Normal 3.7-7.2 [facility] Comment on above: Order Comment: pt wo uldnt let me retry to get the blood work Performed By: #### B MP, CBC #### [facility] [address] [place] [address] [place] Potassium [Moles/Vol] 4.2 mmol/L Normal 3.5-5.1 [facility] Comment on above: Order Comment: pt wo uldnt let me retry to get the blood work Performed By: #### B MP, CBC #### [facility] [address] [place] [address] [place] Sodium [Moles/Vol] 134 mmol/L Low 136-145 [facility] Comment on above: Order Comment: pt wo uldnt let me retry to get the blood work Performed By: #### B MP, CBC #### [place] [address] [place] Urea nitrogen [Mass/Vol] 48 mg/dL High 7-[address] [facility] Comment on above: Order Comment: pt wo uldnt let me retry to get the blood work Performed By: #### B MP, CBC #### [address] Glucose Poct Glucometerson 0 08-04-2022 Glucose [Mass/Vol] 118 mg/dL Normal [facility] Comment on above: Result Comment: [facility] Glucose Reference Range is dependent on time and content of last meal. Glucose of more than 200 mg/dL in a nonstressed, ambulatory subject supports the diagnosis of Diabetes Mellitus. PERFORMED BY: [place] [address] PATHOLOGIST [employer] DANII HAYNES M.D. Performed By: #### G CAPRICE #### Point of Care testing , Glucose [Mass/Vol] 118 mg/dL Normal [facility] Comment on above: Result Comment: [facility] Glucose Reference Range is dependent on time and content of last meal. Glucose of more than 200 mg/dL in a nonstressed, ambulatory subject supports the diagnosis of Diabetes Mellitus. PERFORMED BY: [place] [phone] PATHOLOGIST [employer] DANII HAYNES M.D. Performed By: #### G CAPRICE #### Point of Care testing , Glucose [Mass/Vol] 136 mg/dL Normal [facility] Comment on above: Result Comment: [facility] Glucose Reference Range is dependent on time and content of last meal. Glucose of more than 200 mg/dL in a nonstressed, ambulatory subject supports the diagnosis of Diabetes Mellitus. PERFORMED BY: [place] [phone] PATHOLOGIST [employer] DANII HAYNES M.D. Performed By: #### C MP #### [address] NM ping perf SPECT rest stron 08-04-2022 NM ping perf SPECT rest str [facility] [place] [address] [place], [place] [id number] Nuclear Medicine Report Signed Patient: Amparo Castorena MR#: [id number] 68 : 1950 Acct:[id number] Age/Sex: 71 / F ADM Date: 08/02/22 Loc: Room: [address] [place] [address] Type: ADM IN Attending Dr: Levy Ward MD Copies to: MD Jimbo Judd MD, [facility] Danii Rodriguez MD Ordering Provider: Danii Rodriguez [...] 08/04/22 1343 Dictated By: Jimbo Damon MD, [facility] 08/04/22 1247 Signed By: 08/04/22 [address] [facility] Renal Function Panelon 08-04 Albumin [Mass/Vol] 3.0 g/dL Low 3.5-5.7 [facility] Comment on above: Performed By: #### C MP #### [facility] [address] Anion gap [Moles/Vol] 13.5 mmol/L Normal 6.0-15.0 [facility] Comment on above: Performed By: #### C MP #### [facility] [address] [place] [address] [place] Calcium [Mass/Vol] 7.9 mg/dL Low 8.6-10.3 [facility] Comment on above: Performed By: #### C MP #### [facility] [address] [place] [address] [place] Chloride [Moles/Vol] 97 mmol/L Low 98-107 [facility] Comment on above: Performed By: #### C MP #### [facility] [address] [place] [id number] [place] CO2 [Moles/Vol] 26.3 mmol/L Normal 21.0-31.0 [facility] Comment on above: Performed By: #### C MP #### [facility] [address] [place] [id number] [place] Creatinine [Mass/Vol] 4.44 mg/dL Significan t change up 0.60-1.[address] [facility] Comment on above: Performed By: #### C MP #### [place] [address] [place] Creatinine Clr Calc Pharmacy 13.53 [facility] Comment on above: Result Comment: PERF ORMED BY: [place] [address] PATHOLOGIST [employer] DANII HAYNES M.D. Performed By: #### C MP #### [place] [address] [place] GFR/1.73 sq M.predicted MDRD (S/P/Bld) [Vol rate/Area] 10.006 mL/min/{1.73_m2} Normal [facility] Comment on above: Performed By: #### C MP #### [address] Glucose [Mass/Vol] 136 mg/dL High 70-100 [facility] Comment on above: Result Comment: [facility] Glucose Reference Range is dependent on time and content of last meal. Glucose of more than 200 mg/dL in a nonstressed, ambulatory subject supports the diagnosis of Diabetes Mellitus. ADA recommended reference range Performed By: #### C MP #### [place] [address] [place] Phosphate [Mass/Vol] 4.2 mg/dL Normal 3.7-7.2 [facility] Comment on above: Performed By: #### C MP #### [place] [address] [place] Potassium [Moles/Vol] 3.8 mmol/L Normal 3.5-5.1 [facility] Comment on above: Performed By: #### C MP #### [place] [address] [place] Sodium [Moles/Vol] 133 mmol/L Low 136-145 [facility] Comment on above: Performed By: #### C MP #### [place] [address] [place] Urea nitrogen [Mass/Vol] 36 mg/dL High 7-[address] [facility] Comment on above: Performed By: #### C MP #### [facility] [address] [place] [address] [place] STR cardiac stress/lexiscano n 08-04-2022 STR cardiac stress/lexiscan [facility] [place] [address] [place] [address] Cardiac Stress Test Signed Patient: Amparo Castorena MR#: [id number] 68 : 1950 Acct:[id number] Age/Sex: 71 / F ADM Date: 08/02/22 Loc: Room: [address] [place] [address] Type: ADM IN Attending Dr: Levy Ward [...] MD 08/04/22 1143 Signed By: 08/05/22 0802 [facility] Blood Cultureon 08-03-2022 Bacteria identified Cx Nom (Bld) NO GROWTH 5 DAYS PERFORMED BY: [place] [address] PATHOLOGIST [employer] DANII HAYNES M.D. [facility] Comment on above: Performed By: #### C UBLD #### [facility] [address] [place] [address] [facility] Bacteria identified Cx Nom (Bld) NO GROWTH 5 DAYS PERFORMED BY: [place] [phone] PATHOLOGIST [employer] DANII HAYNES M.D. Normal [facility] Comment on above: Performed By: #### C UBLD #### [address] Complete Blood Count Auto Di ffon 08-03-2022 Basophils (Bld) [#/Vol] 0.0 10*3/uL Normal 0.0-0.[address] [facility] Comment on above: Result Comment: PERF ORMED BY: [place] [address] PATHOLOGIST [employer] DANII HAYNES M.D. Performed By: #### G LULS #### Point of Care testing , Basophils/100 WBC (Bld) 0.4 % Normal . [facility] Comment on above: Performed By: #### G LULS #### Point of Care testing , Eosinophils (Bld) [#/Vol] 0.3 10*3/uL Normal 0.0-0.[address] [facility] Comment on above: Performed By: #### G LULS #### Point of Care testing , Eosinophils/100 WBC (Bld) 2.7 % Normal . [facility] Comment on above: Performed By: #### G LULS #### Point of Care testing , Erythrocyte distribution width (RBC) [Ratio] 14.8 % Normal 11.9-15.[address] [facility] Comment on above: Performed By: #### G LULS #### Point of Care testing , Hematocrit (Bld) [Volume fraction] 25.9 % Low 34.0-46.[address] [facility] Comment on above: Performed By: #### G LULS #### Point of Care testing , Hemoglobin (Bld) [Mass/Vol] 8.4 g/dL Low 11.8-15.[address] [facility] Comment on above: Performed By: #### G LULS #### Point of Care testing , Lymphocytes (Bld) [#/Vol] 2.0 10*3/uL Normal 1.00-4.[address] [facility] Comment on above: Performed By: #### Ayo VASQUES #### Point of Care testing , Lymphocytes/100 WBC (Bld) 19.0 % Normal . [facility] Comment on above: Performed By: #### Ayo SELLERSLS #### Point of Care testing , MCH (RBC) [Entitic mass] 29.6 pg Normal 24.7-34.[address] [facility] Comment on above: Performed By: #### Ayo SELLERSLS #### Point of Care testing , MCV (RBC) [Entitic vol] 91.1 fL Normal 80-[address] [facility] Comment on above: Performed By: #### Ayo SELLERSLS #### Point of Care testing , Mean Corpuscular HGB Conc 32.5 g/dL Normal 32.0-35.[address] [facility] Comment on above: Performed By: #### Ayo VASQUES #### Point of Care testing , Monocytes (Bld) [#/Vol] 0.9 10*3/uL High 0.0-0.[address] [facility] Comment on above: Performed By: #### Ayo SELLERSLS #### Point of Care testing , Monocytes/100 WBC (Bld) 9.0 % Normal . [facility] Comment on above: Performed By: #### Ayo VASQUES #### Point of Care testing , Neutrophils (Bld) [#/Vol] 7.1 10*3/uL Normal 1.8-7.[address] [facility] Comment on above: Performed By: #### Ayo SELLERSLS #### Point of Care testing , Neutrophils/100 WBC (Bld) 68.9 % Normal . [facility] Comment on above: Performed By: #### Ayo VASQUES #### Point of Care testing , NRBC% 0.0 /100{WBC} Normal 0-0.[address] [facility] Comment on above: Performed By: #### Ayo SELLERSLS #### Point of Care testing , Platelet mean volume (Bld) [Entitic vol] 8.0 fL Normal 6.3-10.[address] [facility] Comment on above: Performed By: #### Ayo VASQUES #### Point of Care testing , Platelets (Bld) [#/Vol] 145 10*3/uL Low 150-[address] [facility] Comment on above: Performed By: #### G CAPRICE #### Point of Care testing , RBC (Bld) [#/Vol] 2.84 10*6/uL Low 3.60-5.00 [facility] Comment on above: Performed By: #### G LULS #### Point of Care testing , WBC (Bld) [#/Vol] 10.3 10*3/uL Normal 3.8-11.6 [facility] Comment on above: Performed By: #### G CAPRICE #### Point of Care testing , Glucose Poct Glucometerson 0 08-03-2022 Glucose [Mass/Vol] 144 mg/dL Normal [facility] Comment on above: Result Comment: [place] Glucose Reference Range is dependent on time and content of last meal. Glucose of more than 200 mg/dL in a nonstressed, ambulatory subject supports the diagnosis of Diabetes Mellitus. PERFORMED BY: [place] [address] PATHOLOGIST [employer] DANII HAYNES M.D. Performed By: #### C MP #### [address] Commemt1 Glu2: Cleaned Meter Normal [facility] Comment on above: Result Comment: PERF ORMED BY: [place] [address] PATHOLOGIST [employer] DANII HAYNES M.D. Performed By: #### C MP #### [address] Glucose [Mass/Vol] 175 mg/dL Normal [facility] Comment on above: Result Comment: [place] Glucose Reference Range is dependent on time and content of last meal. Glucose of more than 200 mg/dL in a nonstressed, ambulatory subject supports the diagnosis of Diabetes Mellitus. Performed By: #### C MP #### [address] Complete Blood Count Auto Di ffon 08-02-2022 Basophils (Bld) [#/Vol] 0.1 10*3/uL Normal 0.0-0.[address] [facility] Comment on above: Result Comment: PERF ORMED BY: [place] [address] PATHOLOGIST [employer] DANII HAYNES M.D. Performed By: #### C BC #### [address] Basophils/100 WBC (Bld) 0.7 % Normal . [facility] Comment on above: Performed By: #### C BC #### [address] Eosinophils (Bld) [#/Vol] 0.2 10*3/uL Normal 0.0-0.[address] [facility] Comment on above: Performed By: #### C BC #### [address] Eosinophils/100 WBC (Bld) 1.7 % Normal . [facility] Comment on above: Performed By: #### C BC #### [address] Erythrocyte distribution width (RBC) [Ratio] 15.3 % Normal 11.9-15.[address] [facility] Comment on above: Performed By: #### C BC #### [address] Hematocrit (Bld) [Volume fraction] 27.4 % Low 34.0-46.[address] [facility] Comment on above: Performed By: #### C BC #### [address] Hemoglobin (Bld) [Mass/Vol] 8.8 g/dL Low 11.8-15.[address] [facility] Comment on above: Performed By: #### C BC #### [address] Lymphocytes (Bld) [#/Vol] 2.0 10*3/uL Normal 1.00-4.[address] [facility] Comment on above: Performed By: #### C BC #### [address] Lymphocytes/100 WBC (Bld) 16.7 % Normal . [facility] Comment on above: Performed By: #### C BC #### [address] MCH (RBC) [Entitic mass] 29.3 pg Normal 24.7-34.[address] [facility] Comment on above: Performed By: #### C BC #### [address] MCV (RBC) [Entitic vol] 91.8 fL Normal 80-[address] [facility] Comment on above: Performed By: #### C BC #### [address] Mean Corpuscular HGB Conc 32.0 g/dL Normal 32.0-35.[address] [facility] Comment on above: Performed By: #### C BC #### [address] Monocytes (Bld) [#/Vol] 0.8 10*3/uL Normal 0.0-0.[address] [facility] Comment on above: Performed By: #### C BC #### [address] Monocytes/100 WBC (Bld) 7.1 % Normal . [facility] Comment on above: Performed By: #### C BC #### [address] Neutrophils (Bld) [#/Vol] 8.6 10*3/uL High 1.8-7.[address] [facility] Comment on above: Performed By: #### C BC #### [address] Neutrophils/100 WBC (Bld) 73.8 % Normal . [facility] Comment on above: Performed By: #### C BC #### [place] [address] [place] NRBC% 0.0 /100{WBC} Normal 0-0.[address] [facility] Comment on above: Performed By: #### C BC #### [address] Platelet mean volume (Bld) [Entitic vol] 8.2 fL Normal 6.3-10.[address] [facility] Comment on above: Performed By: #### C BC #### [address] Platelets (Bld) [#/Vol] 145 10*3/uL Low 150-[address] [facility] Comment on above: Performed By: #### C BC #### [address] RBC (Bld) [#/Vol] 2.98 10*6/uL Low 3.60-5.00 [facility] Comment on above: Performed By: #### C BC #### [address] WBC (Bld) [#/Vol] 11.7 10*3/uL High 3.8-11.6 [facility] Comment on above: Performed By: #### C BC #### [address] Comprehensive Metabolic Pane tamika 08-02-2022 Albumin [Mass/Vol] 3.0 g/dL Low 3.5-5.7 [facility] Comment on above: Performed By: #### C MP #### [address] Albumin/Globulin [Mass ratio] 0.7 {ratio} Normal [facility] Comment on above: Performed By: #### C MP #### [address] ALP [Catalytic activity/Vol] 101 U/L Normal 34-[address] [facility] Comment on above: Performed By: #### C MP #### [address] ALT [Catalytic activity/Vol] 18 U/L Normal 7-[address] [facility] Comment on above: Performed By: #### C MP #### [facility] [address] Anion gap [Moles/Vol] 14.2 mmol/L Normal 6.0-15.0 [facility] Comment on above: Performed By: #### C MP #### [facility] [address] AST [Catalytic activity/Vol] 19 U/L Normal 13-[address] [facility] Comment on above: Performed By: #### C MP #### [facility] [address] Bilirubin [Mass/Vol] 0.5 mg/dL Normal 0.3-1.0 [facility] Comment on above: Performed By: #### C MP #### [facility] [address] [place] [address] Calcium [Mass/Vol] 7.6 mg/dL Low 8.6-10.3 [facility] Comment on above: Performed By: #### C MP #### [facility] [address] Chloride [Moles/Vol] 98 mmol/L Normal 98-107 [facility] Comment on above: Performed By: #### C MP #### [address] CO2 [Moles/Vol] 25.4 mmol/L Normal 21.0-31.0 [facility] Comment on above: Performed By: #### C MP #### [facility] [address] Creatinine [Mass/Vol] 6.16 mg/dL Significan t change up 0.60-1.[address] [facility] Comment on above: Performed By: #### C MP #### [address] Creatinine Clr Calc Pharmacy 9.[address] [facility] Comment on above: Result Comment: PERF ORMED BY: [place] [address] PATHOLOGIST [employer] HELPER DANII HAYNES M.D. Performed By: #### C MP #### [place] [address] [place] GFR/1.73 sq M.predicted MDRD (S/P/Bld) [Vol rate/Area] 6.755 mL/min/{1.73_m2} [facility] Comment on above: Performed By: #### C MP #### [address] Globulin (S) [Mass/Vol] 4.5 g/dL [facility] Comment on above: Performed By: #### C MP #### [address] Glucose [Mass/Vol] 165 mg/dL High 70-100 [facility] Comment on above: Result Comment: [place] Glucose Reference Range is dependent on time and content of last meal. Glucose of more than 200 mg/dL in a nonstressed, ambulatory subject supports the diagnosis of Diabetes Mellitus. ADA recommended reference range Performed By: #### C MP #### [address] Potassium [Moles/Vol] 4.6 mmol/L Normal 3.5-5.1 [facility] Comment on above: Performed By: #### C MP #### [address] Protein [Mass/Vol] 7.5 g/dL Normal 6.4-8.9 [facility] Comment on above: Performed By: #### C MP #### [place] [address] [place] Sodium [Moles/Vol] 133 mmol/L Low 136-145 [facility] Comment on above: Performed By: #### C MP #### [address] Urea nitrogen [Mass/Vol] 47 mg/dL High 7-[address] [facility] Comment on above: Performed By: #### C MP #### [address] [place] [address] [facility] Glucose Poct Glucometerson 0 08-02-2022 Glucose [Mass/Vol] 180 mg/dL Normal [facility] Comment on above: Result Comment: [facility] Glucose Reference Range is dependent on time and content of last meal. Glucose of more than 200 mg/dL in a nonstressed, ambulatory subject supports the diagnosis of Diabetes Mellitus. PERFORMED BY: [place] [address] PATHOLOGIST [employer] HELPER DANII HAYNES M.D. Performed By: #### G LULS #### Point of Care testing , Glucose [Mass/Vol] 166 mg/dL Normal [facility] Comment on above: Result Comment: [facility] Glucose Reference Range is dependent on time and content of last meal. Glucose of more than 200 mg/dL in a nonstressed, ambulatory subject supports the diagnosis of Diabetes Mellitus. PERFORMED BY: [place] [address] PATHOLOGIST [employer] HELPER DANII HAYNES M.D. Performed By: #### B MP, CBC #### [address] Glucose [Mass/Vol] 118 mg/dL Normal [facility] Comment on above: Result Comment: [facility] Glucose Reference Range is dependent on time and content of last meal. Glucose of more than 200 mg/dL in a nonstressed, ambulatory subject supports the diagnosis of Diabetes Mellitus. PERFORMED BY: [place] [address] PATHOLOGIST [employer] HELPER DANII HAYNES M.D. Performed By: #### G LULS #### Point of Care testing , Basic Metabolic Panelon 04- Anion gap [Moles/Vol] 16.7 mmol/L High 6.0-15.0 [facility] Comment on above: Performed By: #### B MP, CBC #### [address] Calcium [Mass/Vol] 8.2 mg/dL Low 8.6-10.3 [facility] Comment on above: Performed By: #### B MP, CBC #### [facility] [address] [place] [address] [place] Chloride [Moles/Vol] 99 mmol/L Normal 98-107 [facility] Comment on above: Performed By: #### B MP, CBC #### [facility] [address] [place] [address] [place] CO2 [Moles/Vol] 22.6 mmol/L Normal 21.0-31.0 [facility] Comment on above: Performed By: #### B MP, CBC #### [facility] [address] Creatinine [Mass/Vol] 4.98 mg/dL Significan t change up 0.60-1.[address] [facility] Comment on above: Performed By: #### B MP, CBC #### [facility] [address] Creatinine Clr Calc Pharmacy 11.[address] [facility] Comment on above: Result Comment: PERF ORMED BY: [place] [address] PATHOLOGIST [employer] HELPER DANII HAYNES M.D. Performed By: #### B MP, CBC #### [facility] [address] [place] [address] [place] GFR/1.73 sq M.predicted MDRD (S/P/Bld) [Vol rate/Area] 8.719 mL/min/{1.73_m2} Normal [facility] Comment on above: Performed By: #### B MP, CBC #### [facility] [address] [place] [address] [place] Glucose [Mass/Vol] 129 mg/dL High 70-100 [facility] Comment on above: Result Comment: [place] Glucose Reference Range is dependent on time and content of last meal. Glucose of more than 200 mg/dL in a nonstressed, ambulatory subject supports the diagnosis of Diabetes Mellitus. ADA recommended reference range Performed By: #### B MP, CBC #### [facility] [address] Potassium [Moles/Vol] 4.3 mmol/L Normal 3.5-5.1 [facility] Comment on above: Performed By: #### B MP, CBC #### [address] Sodium [Moles/Vol] 134 mmol/L Low 136-145 [facility] Comment on above: Performed By: #### B MP, CBC #### [facility] [address] Urea nitrogen [Mass/Vol] 37 mg/dL High 7-[address] [facility] Comment on above: Performed By: #### B MP, CBC #### [address] Blood Cultureon 08-01-2022 Bacteria identified Cx Nom (Bld) Gram stain results called at 1517 on 08/02/22 Gram Stain Gram Positive Cocci in Clusters ORGANISM: Staphylococcus epidermidis (O:STAEPI) Organism Comments For MARIANNE Refer to Final Report of Blood Culture Collected Date 08/01/22 PERFORMED BY: [place] [address] PATHOLOGIST [employer] HELPER DANII HAYNES M.D. [facility] Comment on above: Performed By: #### [...] culture Not detected Group A (Streptococcus pyogenes) [id number] Not detected Group B Strep (Streptococcus agalactiae) [...] (more content not included)... Normal [facility] Comment on above: Performed By: #### G LULS #### Point of Care testing , Complete Blood Count Auto Di ffon 08-01-2022 Basophils (Bld) [#/Vol] 0.1 10*3/uL Normal 0.0-0.[address] [facility] Comment on above: Result Comment: PERF ORMED BY: [place] [address] PATHOLOGIST [employer] HELPER DANII HAYNES M.D. Performed By: #### B MP, CBC #### [facility] [address] [place] [address] Basophils/100 WBC (Bld) 0.3 % Normal . [facility] Comment on above: Performed By: #### B MP, CBC #### [facility] [address] [place] [address] [place] Eosinophils (Bld) [#/Vol] 0.2 10*3/uL Normal 0.0-0.[address] [facility] Comment on above: Performed By: #### B MP, CBC #### [facility] [address] Eosinophils/100 WBC (Bld) 1.1 % Normal . [facility] Comment on above: Performed By: #### B MP, CBC #### [address] Erythrocyte distribution width (RBC) [Ratio] 15.2 % Normal 11.9-15.[address] [facility] Comment on above: Performed By: #### B MP, CBC #### [address] Hematocrit (Bld) [Volume fraction] 28.8 % Low 34.0-46.[address] [facility] Comment on above: Performed By: #### B MP, CBC #### [address] Hemoglobin (Bld) [Mass/Vol] 9.1 g/dL Low 11.8-15.[address] [facility] Comment on above: Performed By: #### B MP, CBC #### [place] [address] [place] Lymphocytes (Bld) [#/Vol] 2.0 10*3/uL Normal 1.00-4.[address] [facility] Comment on above: Performed By: #### B MP, CBC #### [place] [address] [place] Lymphocytes/100 WBC (Bld) 12.7 % Normal . [facility] Comment on above: Performed By: #### B MP, CBC #### [address] MCH (RBC) [Entitic mass] 29.1 pg Normal 24.7-34.[address] [facility] Comment on above: Performed By: #### B MP, CBC #### [place] [address] MCV (RBC) [Entitic vol] 92.0 fL Normal 80-[address] [facility] Comment on above: Performed By: #### B MP, CBC #### [address] Mean Corpuscular HGB Conc 31.6 g/dL Low 32.0-35.[address] [facility] Comment on above: Performed By: #### B MP, CBC #### [address] Monocytes (Bld) [#/Vol] 1.5 10*3/uL High 0.0-0.[address] [facility] Comment on above: Performed By: #### B MP, CBC #### [address] Monocytes/100 WBC (Bld) 9.3 % Normal . [facility] Comment on above: Performed By: #### B MP, CBC #### [address] Neutrophils (Bld) [#/Vol] 11.9 10*3/uL High 1.8-7.[address] [facility] Comment on above: Performed By: #### B MP, CBC #### [address] Neutrophils/100 WBC (Bld) 76.6 % Normal . [facility] Comment on above: Performed By: #### B MP, CBC #### [address] NRBC% 0.0 /100{WBC} Normal 0-0.[address] [facility] Comment on above: Performed By: #### B MP, CBC #### [address] Platelet mean volume (Bld) [Entitic vol] 8.6 fL Normal 6.3-10.[address] [facility] Comment on above: Performed By: #### B MP, CBC #### [address] Platelets (Bld) [#/Vol] 123 10*3/uL Significant change down 150-[address] [facility] Comment on above: Performed By: #### B MP, CBC #### [facility] [address] RBC (Bld) [#/Vol] 3.13 10*6/uL Low 3.60-5.00 [facility] Comment on above: Performed By: #### B MP, CBC #### [facility] [address] WBC (Bld) [#/Vol] 15.6 10*3/uL High 3.8-11.6 [facility] Comment on above: Performed By: #### B MP, CBC #### [address] ECG 12 lead ECGon 08-01-2022 ECG 12 lead ECG [facility] [place] [address] [place] [address] Electrocardiograph Report Signed Patient: Amparo Castorena MR#: [id number] 68 : 1950 Acct:[id number] Age/Sex: 71 / F ADM Date: 08/02/22 Loc: Room: [address] [place] [address] Type: ADM IN Attending Dr: Yash Ortega [...] When compared with ECG of 31-JUL-2022 15:08, [place] interval has increased Confirmed by GERTRUDE STRICKLAND FACSCAR Meier ([id number]) on 08/03/2022 10:28:47 AM Referred By: Electronically Signed By:SCAR LOREDO MD FACC Transcribed By: MUS Signed By Juan Loredo MD 08/03/22 1028 Normal [facility] echo transthoracicon [facility] echo transthoracic [facility] [place] [address] [place], [place] [id number] Echocardiogram Signed Patient: Amparo Castorena MR#: [id number] 68 : 1950 Acct:[id number] Age/Sex: 71 / F ADM Date: 07/31/22 Loc: Room: [address] [place] [address] Type: ADM IN Attending Dr: Yash Ortega MD Ordering Provider: Yash Ortega MD Date of Service: 08/01/2212/17/951 [facility] transthoracic: chest pain Copies to: MD Yash Arndt MD BSA: 2.1 m2 BP: 138/76 mmHg HR: 80 Reason For Study: chest pain History: CKD, CVA, DM, HTN, HLD, PR, PVD, stents Interpretation Summary Ejection Fraction = [...] Rodriguez MD 08/01/22 [address] [facility] Glucose Poct Glucometerson 0 08-01-2022 Glucose [Mass/Vol] 159 mg/dL Normal [facility] Comment on above: Result Comment: [facility] Glucose Reference Range is dependent on time and content of last meal. Glucose of more than 200 mg/dL in a nonstressed, ambulatory subject supports the diagnosis of Diabetes Mellitus. PERFORMED BY: [place] [phone] PATHOLOGIST [employer] HELPER DANII HAYNES M.D. Performed By: #### C MP #### [facility] [address] [place] [address] Glucose [Mass/Vol] 114 mg/dL Normal [facility] Comment on above: Result Comment: [facility] Glucose Reference Range is dependent on time and content of last meal. Glucose of more than 200 mg/dL in a nonstressed, ambulatory subject supports the diagnosis of Diabetes Mellitus. PERFORMED BY: [place] [address] PATHOLOGIST [employer] HELPER DANII HAYNES M.D. Performed By: #### B MP, CBC #### [facility] [address] [place] [address] [place] Glucose [Mass/Vol] 170 mg/dL Normal [facility] Comment on above: Result Comment: [place] om Glucose Reference Range is dependent on time and content of last meal. Glucose of more than 200 mg/dL in a nonstressed, ambulatory subject supports the diagnosis of Diabetes Mellitus. PERFORMED BY: [place] [address] PATHOLOGIST [employer] HELPER DANII HAYNES M.D. Performed By: #### C MP #### [address] Glucose [Mass/Vol] 152 mg/dL Normal [facility] Comment on above: Result Comment: [place] om Glucose Reference Range is dependent on time and content of last meal. Glucose of more than 200 mg/dL in a nonstressed, ambulatory subject supports the diagnosis of Diabetes Mellitus. PERFORMED BY: [place] [address] PATHOLOGIST [employer] HELPER DANII HAYNES M.D. Performed By: #### G LULS #### Point of Care testing , Glucose [Mass/Vol] 123 mg/dL Normal [facility] Comment on above: Result Comment: [place] om Glucose Reference Range is dependent on time and content of last meal. Glucose of more than 200 mg/dL in a nonstressed, ambulatory subject supports the diagnosis of Diabetes Mellitus. PERFORMED BY: [place] [address] PATHOLOGIST [employer] HELPER DANII HAYNES M.D. Performed By: #### G LULS #### Point of Care testing , Lipid Panelon 08-01-2022 Cholesterol [Mass/Vol] 105 mg/dL Low 140-200 [facility] Comment on above: Result Comment: Chol less than 200 mg/dl low risk Chol 201-239 mg/dl borderline risk Chol 240 mg/dl and greater high risk Performed By: #### G LULS #### Point of Care testing , Cholesterol in HDL [Mass/Vol] 32 mg/dL Low 35-[address] [facility] Comment on above: Result Comment: HDL CHOL ATP-III CLASSIFICATION Cardiovascular Risk HDL > or equal to 60 mg/dL LOW HDL < 40 mg/dL HIGH Performed By: #### G LULS #### Point of Care testing , Cholesterol.total/Chol esterol in HDL [Mass ratio] 3.3 {ratio} Normal <5.[address] [facility] Comment on above: Result Comment: PERF ORMED BY: [facility] [address] [place] [address] PATHOLOGIST [employer] HELPER DANII HAYNES M.D. Performed By: #### G LULS #### Point of Care testing , LDL Cholesterol,Calculated 45 mg/dL Normal 0-[address] [facility] Comment on above: Result Comment: LDL ATP III CLASSIFICATION LDL less than 100 mg/dL Optimal LDL 100-129 mg/dL Near or above optimal LDL 130-159 mg/dL Borderline high LDL 160-189 mg/dL High LDL greater than 189 mg/dL Very high Performed By: #### G LULS #### Point of Care testing , Triglyceride w/Reflex 140 mg/dL Normal 0-149 [facility] Comment on above: Result Comment: TRIG ATP III CLASSIFICATION TRIG less than 150 mg/dL Normal TRIG 150-199 mg/dL Borderline high TRIG 200-500 mg/dL High TRIG greater than 500 mg/dL Very high Standard traceable to the Center for Disease Conrtrol and Prevention (CDC) test method. Performed By: #### G LULS #### Point of Care testing , VLDL CHOLESTEROL 28 mg/dL Normal [facility] Comment on above: Performed By: #### G LULS #### Point of Care testing , Troponin I High Sensitivityo n 08-01-2022 Troponin I High Sensitivity 11.3 pg/mL Normal 0.0-15.[address] [facility] Comment on above: Result Comment: PERF ORMED BY: [facility] [address] [place] [address] PATHOLOGIST [employer] HELPER DANII HAYNES M.D. Performed By: #### G LULS #### Point of Care testing , Activated partial thrombopla stin time (aPTT) in platelet poor plasma by coagulation aOrdered By: Malcolm Moss on 07-31-2022 aPTT Coag (PPP) [Time] 28.0 s 25.1-36.5 [facility] Alanine aminotransferase [En zymatic activity/volume] in Serum or PlasmaOrdered By: Malcolm Moss on 07-31-2022 ALT [Catalytic activity/Vol] 24 U/L Normal 7-[address] [facility] Comment on above: Performed By: #### G LULS #### Point of Care testing , Albumin [Mass/volume] in Ser um or Plasma by Bromocresol green (BCG) dye binding methoOrdered By: Malcolm Moss on 07-31-2022 Albumin BCG dye [Mass/Vol] 3.6 g/dL 3.5-5.[address] [facility] Alkaline phosphatase [Enzyma tic activity/volume] in Serum or PlasmaOrdered By: Malcolm Moss on 07-31-2022 ALP [Catalytic activity/Vol] 124 U/L High 34-[address] [facility] Comment on above: Performed By: #### G LULS #### Point of Care testing , Aspartate aminotransferase [ Enzymatic activity/volume] in Serum or PlasmaOrdered By: Malcolm Moss on 07-31-2022 AST [Catalytic activity/Vol] 22 U/L Normal 13-[address] [facility] Comment on above: Performed By: #### G LULS #### Point of Care testing , Automated erythrocytes count in urine sediment (number/area)Ordered By: Malcolm Moss on 07-31-2022 RBC Auto (Urine sed) [#/Area] 50-100 [HPF] 0-[address] [facility] Automated leukocytes count i n urine sediment (number/area)Ordered By: Malcolm Moss on 07-31-2022 WBC Auto (Urine sed) [#/Area] Innumerable [HPF] 0-[address] [facility] Automated urine hyaline cast s count (number/volume)Ordered By: Malcolm Moss on 07-31-2022 Hyaline casts Auto (U) [#/Vol] 5-9 [LPF] 0-[address] [facility] B-Type Natriuretic Peptideon 07-31-2022 Natriuretic peptide B (Bld) [Mass/Vol] 57.0 pg/mL Normal 5-[address] [facility] Comment on above: Result Comment: PERF ORMED BY: [facility] [address] [place] [address] PATHOLOGIST [employer] HELPER DANII HAYNES M.D. Performed By: #### G LULS #### Point of Care testing , Basic Metabolic Panelon Creatinine Clr Calc Pharmacy 14.[address] [facility] Comment on above: Performed By: #### G LULS #### Point of Care testing , GFR/1.73 sq M.predicted MDRD (S/P/Bld) [Vol rate/Area] 10.913 mL/min/{1.73_m2} Normal [facility] Comment on above: Performed By: #### G LULS #### Point of Care testing , Basophils Auto (Bld) [#/Vol] Ordered By: Malcolm Moss on 07-31-2022 Basophils (Bld) [#/Vol] 0.1 10*3/uL 0.0-0.[address] [facility] Basophils/100 WBC Auto (Bld) Ordered By: Malcolm Moss on 07-31-2022 Basophils/100 WBC (Bld) 0.4 % . [facility] Bilirubin Auto test strip Ql (U)Ordered By: Malcolm Moss on 07-31-2022 Bilirubin Ql (U) Negative Negative [facility] Bilirubin.direct [Mass/volum e] in Serum or PlasmaOrdered By: Malcolm Moss on 07-31-2022 Bilirubin.direct [Mass/Vol] 0.10 mg/dL 0.03-0.[address] [facility] Bilirubin.total [Mass/volume ] in Serum or PlasmaOrdered By: Malcolm Moss on 07-31-2022 Bilirubin [Mass/Vol] 0.6 mg/dL Normal 0.3-1.0 [facility] Comment on above: Performed By: #### G LULS #### Point of Care testing , CBC AUTO DIFFon 07-31-2022 BASO # 0.1 103/ul Normal 0.0-0.1 [facility] Comment on above: Performed By: #### U SUNITA, MG, RENAL #### [facility] [address] [place] [address] [address] Silver Harrison Basophils/100 WBC (Bld) 0.6 % Normal 0.2-2.0 [facility] Comment on above: Performed By: #### U SUNITA, MG, RENAL #### [facility] [address] [place] [address] [address] Silver Harrison EO # 0.3 103/ul Normal 0.0-0.7 [facility] Comment on above: Performed By: #### U SUNITA, MG, RENAL #### [facility] [address] [place] [address] Dr. Silver Harrison Eosinophils/100 WBC (Bld) 2.4 % Normal 0.9-7.0 [facility] Comment on above: Performed By: #### U SUNITA, MG, RENAL #### [facility] [address] [place] [address] Dr. Silver Harrison Erythrocyte distribution width (RBC) [Ratio] 14.1 % Normal 11.0-15.0 [facility] Comment on above: Performed By: #### U SUNITA, MG, RENAL #### [facility] [address] [place] [address] Dr. Silver Harrison Hematocrit (Bld) [Volume fraction] 33.7 % Critically low 36.0-48.0 [facility] Comment on above: Performed By: #### U SUNITA, MG, RENAL #### [facility] [address] [place] [address] Dr. Silver Harrison Hemoglobin (Bld) [Mass/Vol] 10.1 g/dL Critically low 12.0-16.0 [facility] Comment on above: Performed By: #### U SUNITA, MG, RENAL #### [facility] [address] [place] [address] Dr. Silver Harrison IG # 0.07 10e3/ul Critically high 0.00-0.03 [facility] Comment on above: Performed By: #### U SUNITA, MG, RENAL #### [facility] [address] [place] [address] Dr. Silver Harrison IG % 0.6 % Critically high 0.0-0.5 [facility] Comment on above: Performed By: #### U SUNITA, MG, RENAL #### [facility] [address] [place] [address] Dr. Silver Harrison LYMPH # 2.4 103/ul Normal 1.2-3.8 [facility] Comment on above: Performed By: #### U SUNITA, MG, RENAL #### [facility] [address] [place] [address] Dr. Silver Harrison Lymphocytes/100 WBC (Bld) 21.6 % Normal 20.5-60.0 [facility] Comment on above: Performed By: #### U SUNITA, MG, RENAL #### [facility] [address] [place] [address] Dr. Silver Harrison MANUAL DIFF REQ NO Normal [facility] Comment on above: Performed By: #### U SUNITA, MG, RENAL #### [facility] [address] [place] [address] Dr. Silver Harrison MCH (RBC) [Entitic mass] 28.6 pg Normal 26.7-34.0 [facility] Comment on above: Performed By: #### U SUNITA, MG, RENAL #### [facility] [address] [place] [address] Dr. Silver Harrison MCHC (RBC) [Mass/Vol] 30.0 g/dL Normal 29.9-35.2 [facility] Comment on above: Performed By: #### U SUNITA, MG, RENAL #### [facility] [address] [place] [address] Dr. Silver Harrison MCV (RBC) [Entitic vol] 95.5 fL Normal 81.0-99.0 [facility] Comment on above: Performed By: #### U SUNITA, MG, RENAL #### [facility] [address] [place] [address] Dr. Silver Harrison MONO # 0.8 103/ul Normal 0.3-0.8 [facility] Comment on above: Performed By: #### U SUNITA, MG, RENAL #### [facility] [address] [place] [address] Dr. Silver Harrison Monocytes/100 WBC (Bld) 7.1 % Normal 1.7-12.0 [facility] Comment on above: Performed By: #### U SUNITA, MG, RENAL #### [facility] [address] [place] [address] [address] Silver Harrison NEUT # 7.4 103/ul Critically high 1.4-6.5 [facility] [facility] Comment on above: Performed By: #### U SUNITA, MG, RENAL #### [facility] [address] [address] [address] Silver Harrison Neutrophils/100 WBC (Bld) 67.7 % Normal 43.0-75.0 [facility] Comment on above: Performed By: #### U SUNITA, MG, RENAL #### [facility] [address] [address] [address] Silver Harrison Platelet mean volume (Bld) [Entitic vol] 10.2 fL Normal 9.5-13.5 [facility] Comment on above: Performed By: #### U SUNITA, MG, RENAL #### [facility] [address] [address] [address] Silver Harrison PLT 130 103/ul Critically low 150-450 [facility] Comment on above: Performed By: #### U SUNITA, MG, RENAL #### [facility] [address] [address] [address] Silver Harrison RBC 3.53 106/ul Critically low 4.20-5.40 [facility] Comment on above: Performed By: #### U SUNITA, MG, RENAL #### [facility] [address] [address] [address] Silver Harrison WBC 10.9 103/ul Normal 4.0-11.0 [facility] Comment on above: Performed By: #### U SUNITA, MG, RENAL #### [facility] [address] [address] [address] Silver Harrison Calcium [Mass/volume] in Ser um or PlasmaOrdered By: Malcolm Moss on 07-31-2022 Calcium [Mass/Vol] 8.3 mg/dL Low 8.6-10.3 [facility] Comment on above: Performed By: #### G LULS #### Point of Care testing , Carbon dioxide, total [Moles /volume] in Serum or PlasmaOrdered By: Malcolm Moss on 07-31-2022 CO2 [Moles/Vol] 24.3 mmol/L Normal 21.0-31.0 [facility] Comment on above: Performed By: #### G LULS #### Point of Care testing , Casts typing in urine sedime nt by light microscopyOrdered By: Malcolm Moss on 07-31-2022 Casts LM Nom (Urine sed) N/A [facility] Chloride [Moles/volume] in S alida or PlasmaOrdered By: Malcolm Moss on 07-31-2022 Chloride [Moles/Vol] 98 mmol/L Normal 98-107 [facility] Comment on above: Performed By: #### G LULS #### Point of Care testing , Complete Blood Count Auto Di ffon 07-31-2022 Basophils (Bld) [#/Vol] 0.1 10*3/uL Normal 0.0-0.[address] [facility] Comment on above: Result Comment: PERF ORMED BY: [facility] [address] [place] [address] PATHOLOGIST [employer] DANII HAYNES M.D. Performed By: #### G LULS #### Point of Care testing , Basophils/100 WBC (Bld) 0.4 % Normal . [facility] Comment on above: Performed By: #### G LULS #### Point of Care testing , Eosinophils (Bld) [#/Vol] 0.1 10*3/uL Normal 0.0-0.[address] [facility] Comment on above: Performed By: #### G LULS #### Point of Care testing , Eosinophils/100 WBC (Bld) 0.5 % Normal . [facility] Comment on above: Performed By: #### G LULS #### Point of Care testing , Erythrocyte distribution width (RBC) [Ratio] 15.0 % Normal 11.9-15.[address] [facility] Comment on above: Performed By: #### G LULS #### Point of Care testing , Hematocrit (Bld) [Volume fraction] 31.6 % Low 34.0-46.[address] [facility] Comment on above: Performed By: #### G MARLOLS #### Point of Care testing , Hemoglobin (Bld) [Mass/Vol] 9.9 g/dL Low 11.8-15.[address] [facility] Comment on above: Performed By: #### G MARLOLS #### Point of Care testing , Lymphocytes (Bld) [#/Vol] 1.3 10*3/uL Normal 1.00-4.[address] [facility] Comment on above: Performed By: #### G MARLOLS #### Point of Care testing , Lymphocytes/100 WBC (Bld) 4.8 % Normal . [facility] Comment on above: Performed By: #### G MRALOLS #### Point of Care testing , MCH (RBC) [Entitic mass] 28.8 pg Normal 24.7-34.[address] [facility] Comment on above: Performed By: #### G MARLOLS #### Point of Care testing , MCV (RBC) [Entitic vol] 91.7 fL Normal 80-[address] [facility] Comment on above: Performed By: #### G CAPRICE #### Point of Care testing , Mean Corpuscular HGB Conc 31.4 g/dL Low 32.0-35.[address] [facility] Comment on above: Performed By: #### G MARLOLS #### Point of Care testing , Monocytes (Bld) [#/Vol] 1.4 10*3/uL High 0.0-0.[address] [facility] Comment on above: Performed By: #### G MARLOLS #### Point of Care testing , Monocytes/100 WBC (Bld) 20.48 % High 0.00-20.[address] [facility] Comment on above: Result Comment: For adults in ED, MDW > 20.0 may be associated with a higher risk of sepsis during the first 12 hrs of hospital admission Performed By: #### G MARLOLS #### Point of Care testing , Monocytes/100 WBC (Bld) 5.1 % Normal . [facility] Comment on above: Performed By: #### G MARLOLS #### Point of Care testing , Neutrophils (Bld) [#/Vol] 24.2 10*3/uL High 1.8-7.[address] [facility] Comment on above: Performed By: #### G CAPRICE #### Point of Care testing , Neutrophils/100 WBC (Bld) 89.2 % Normal . [facility] Comment on above: Performed By: #### G MARLOLS #### Point of Care testing , NRBC% 0.1 /100{WBC} Normal 0-0.[address] [facility] Comment on above: Performed By: #### G MARLOLS #### Point of Care testing , Platelet mean volume (Bld) [Entitic vol] 8.4 fL Normal 6.3-10.[address] [facility] Comment on above: Performed By: #### G MARLOLS #### Point of Care testing , Platelets (Bld) [#/Vol] 155 10*3/uL Normal 150-[address] [facility] Comment on above: Performed By: #### G MARLOLS #### Point of Care testing , RBC (Bld) [#/Vol] 3.45 10*6/uL Low 3.60-5.00 [facility] Comment on above: Performed By: #### G CAPRICE #### Point of Care testing , WBC (Bld) [#/Vol] 27.0 10*3/uL High 3.8-11.6 [facility] Comment on above: Performed By: #### G CAPRICE #### Point of Care testing , Creatine Kinaseon 07-31-2022 Creatine Kinase Normal [facility] Comment on above: Result Comment: Spec imen hemolyzed, redraw requested Performed By: #### G CAPRICE #### Point of Care testing , Creatine kinase [Enzymatic a ctivity/volume] in Serum or PlasmaOrdered By: Malcolm Moss on 07-31-2022 CK [Catalytic activity/Vol] 70 U/L [facility] Creatinine [Mass/volume] in Serum or PlasmaOrdered By: Malcolm Moss on 07-31-2022 Creatinine [Mass/Vol] 4.13 mg/dL High 0.60-1.20 [facility] Comment on above: Performed By: #### G LULS #### Point of Care testing , Dipstick and Microscopicon 0 07-31-2022 Bacteria,Urine 3+ High None Seen [facility] Comment on above: Order Comment: Name Collection Type:: Straight Catheter Performed By: #### G LULS #### Point of Care testing , Bilirubin,Urine Negative Normal Negative [facility] Comment on above: Order Comment: Name Collection Type:: Straight Catheter Performed By: #### G LULS #### Point of Care testing , Glucose Ql (U) Normal Normal Normal [facility] Comment on above: Order Comment: Name Collection Type:: Straight Catheter Performed By: #### G LULS #### Point of Care testing , Hyaline Casts,Urine 5-9 High 0-1 [facility] Comment on above: Order Comment: Name Collection Type:: Straight Catheter Result Comment: PERF ORMED BY: [address] [place] [address] PATHOLOGIST [employer] DANII HAYNES M.D. Performed By: #### G LULS #### Point of Care testing , Ketones Ql (U) Negative Normal Negative [facility] Comment on above: Order Comment: Name Collection Type:: Straight Catheter Performed By: #### G LULS #### Point of Care testing , Leukocyte esterase Test strip Ql (U) 4+ High Negative [facility] Comment on above: Order Comment: Name Collection Type:: Straight Catheter Performed By: #### G LULS #### Point of Care testing , Nitrite,Urine Negative Normal Negative [facility] Comment on above: Order Comment: Name Collection Type:: Straight Catheter Performed By: #### G LULS #### Point of Care testing , Occult Blood,Urine 3+ High Negative [facility] Comment on above: Order Comment: Name Collection Type:: Straight Catheter Result Comment: PERF ORMED BY: [facility] [address] [place] [address] PATHOLOGIST [employer] DANII HAYNES M.D. Performed By: #### G LULS #### Point of Care testing , Protein,Urine >=300 High Negative [facility] Comment on above: Order Comment: Name Collection Type:: Straight Catheter Performed By: #### G LULS #### Point of Care testing , RBC,Urine 50-100 High 0-[address] [facility] Comment on above: Order Comment: Name Collection Type:: Straight Catheter Performed By: #### G LULS #### Point of Care testing , Specificy [place],Urine 1.020 Normal 1.001-1.[address] [facility] Comment on above: Order Comment: Name Collection Type:: Straight Catheter Performed By: #### G LULS #### Point of Care testing , Squamous Epithelial Cell,Urine 10-19 High 0-[address] [facility] Comment on above: Order Comment: Name Collection Type:: Straight Catheter Performed By: #### G LULS #### Point of Care testing , Urobilinogen,Urine Normal Normal Normal [facility] Comment on above: Order Comment: Name Collection Type:: Straight Catheter Performed By: #### G LULS #### Point of Care testing , WBC,Urine Innumerable High 0-[address] [facility] Comment on above: Order Comment: Name Collection Type:: Straight Catheter Performed By: #### G LULS #### Point of Care testing , ECG 12 lead ECGon 07-31-2022 ECG 12 lead ECG [facility] [place] [address] Electrocardiograph Report Signed Patient: Amparo Castorena MR#: [id number] : 1950 Acct:[id number] Age/Sex: 71 / F ADM Date: 07/31/22 Loc: ER Room: Type: [facility] ER Attending Dr: Ordering Provider: Malcolm [...] Prolonged QT Confirmed by Piyush Bell DO ([id number]) on 07/31/2022 4:05:21 PM Referred By: Electronically Signed By:Piyush Bell DO Transcribed By: MUS Signed By Piyush Bell DO [id number] [facility] Eosinophils Auto (Bld) [#/Vo l]Ordered By: Malcolm Moss on 07-31-2022 Eosinophils (Bld) [#/Vol] 0.1 10*3/uL 0.0-0.[address] [facility] Eosinophils/100 WBC Auto (Bl d)Ordered By: Malcolm Moss on 07-31-2022 Eosinophils/100 WBC (Bld) 0.5 % . [facility] Erythrocyte distribution wid th Auto (RBC) [Ratio]Ordered By: Malcolm Moss on 07-31-2022 Erythrocyte distribution width (RBC) [Ratio] 15.0 % 11.9-15.[address] [facility] Glucose [Mass/volume] in Ser um or PlasmaOrdered By: Malcolm Moss on 07-31-2022 Glucose [Mass/Vol] 183 mg/dL High 70-100 [facility] Comment on above: ADA recommended refe rence rangeRandom Glucose Reference Range is dependent on time and content of last meal. Glucose of more than 200 mg/dL in a nonstressed, ambulatory subject supports the diagnosis of Diabetes Mellitus. Result Comment: [place] om Glucose Reference Range is dependent on [...] [Volume fraction] 31.6 % 34.0-46.[address] [facility] Hemoglobin [Mass/volume] in BloodOrdered By: Malcolm Moss on 07-31-2022 Hemoglobin (Bld) [Mass/Vol] 9.9 g/dL 11.8-15.[address] [facility] Hepatic Panelon 07-31-2022 Albumin [Mass/Vol] 3.6 g/dL Normal 3.5-5.7 [facility] Comment on above: Performed By: #### G LULS #### Point of Care testing , Bilirubin,Indirect 0.5 mg/dL Normal [facility] Comment on above: Performed By: #### G LULS #### Point of Care testing , Bilirubin.indirect [Mass/Vol] 0.10 mg/dL Normal 0.03-0.[address] [facility] Comment on above: Performed By: #### G LULS #### Point of Care testing , Ketones Auto test strip (U) [Mass/Vol]Ordered By: Malcolm Moss on 07-31-2022 Ketones (U) [Mass/Vol] Negative Negative [facility] - CoagulationOrde red By: Malcolm Moss on 07-31-2022 PT Coag (PPP) [Time] 12.3 s 9.0-12.9 [facility] Leukocytes [#/volume] correc mary jo for nucleated erythrocytes in Blood by Automated counOrdered By: Malcolm Moss on 07-31-2022 WBC corrected for nucl RBC Auto (Bld) [#/Vol] 27.0 10*3/uL 3.8-11.[address] [facility] Lipase [Enzymatic activity/v olume] in Serum or PlasmaOrdered By: Malcolm Moss on 07-31-2022 Lipase [Catalytic activity/Vol] 36.0 U/L Normal 11.0-82.[address] [facility] Comment on above: Result Comment: PERF ORMED BY: [facility] [address] [place] [address] PATHOLOGIST [employer] DANII HAYNES M.D. Performed By: #### G LULS #### Point of Care testing , Lymphocytes Auto (Bld) [#/Vo l]Ordered By: Malcolm Moss on 07-31-2022 Lymphocytes (Bld) [#/Vol] 1.3 10*3/uL 1.00-4.[address] [facility] Lymphocytes/100 WBC Auto (Bl d)Ordered By: Malcolm Moss on 07-31-2022 Lymphocytes/100 WBC (Bld) 4.8 % . [facility] MCH Auto (RBC) [Entitic mass ]Ordered By: Malcolm Moss on 07-31-2022 MCH (RBC) [Entitic mass] 28.8 pg 24.7-34.[address] [facility] MCHC Auto (RBC) [Mass/Vol]Or dered By: Malcolm Moss on 07-31-2022 MCHC (RBC) [Mass/Vol] 31.4 g/dL 32.0-35.0 [facility] MCV Auto (RBC) [Entitic vol] Ordered By: Malcolm Moss on 07-31-2022 MCV (RBC) [Entitic vol] 91.7 fL 80-[address] [facility] Monocyte distribution width [Entitic volume] in Blood by AutomatedOrdered By: Malcolm Moss on 07-31-2022 Monocyte distribution width Auto (Bld) [Entitic vol] 20.48 % 0.00-20.[address] [facility] Comment on above: For adults in ED, MD W > 20.0 may be associated with a higher risk of sepsis during the first 12 hrs of hospital admission Monocytes Auto (Bld) [#/Vol] Ordered By: Malcolm Moss on 07-31-2022 Monocytes (Bld) [#/Vol] 1.4 10*3/uL 0.0-0.[address] [facility] Monocytes/100 WBC Auto (Bld) Ordered By: Malcolm Moss on 07-31-2022 Monocytes/100 WBC (Bld) 5.1 % . [facility] Natriuretic peptide B [Mass/ Vol]Ordered By: Malcolm Moss on 07-31-2022 Natriuretic peptide B (Bld) [Mass/Vol] 57.0 pg/mL 5-[address] [facility] Neutrophils Auto (Bld) [#/Vo l]Ordered By: Malcolm Moss on 07-31-2022 Neutrophils (Bld) [#/Vol] 24.2 10*3/uL 1.8-7.[address] [facility] Neutrophils/100 WBC Auto (Bl d)Ordered By: Malcolm Moss on 07-31-2022 Neutrophils/100 WBC (Bld) 89.2 % . [facility] No Panel InformationOrdered By: Malcolm Moss on 07-31-2022 Estimated GFR (CKD-EPI) 10.913 mL/Min [facility] Creatinine Clearance (Chem 14.[address] [facility] Nucleated erythrocytes [Pres ence] in Blood by Automated countOrdered By: Malcolm Moss on 07-31-2022 Nucleated RBC Auto Ql (Bld) 0.1 /100{WBC} 0-0.[address] [facility] PHOSPHORUSon 07-31-2022 Phosphate [Mass/Vol] 5.3 mg/dL Critically high 2.6-4.7 [facility] Comment on above: Performed By: #### B MP #### [facility] [address] [place] [address] Dr. Silver Harrison PROF CHEM 8 (BAS METB)on Anion gap [Moles/Vol] 11.8 mmol/L Normal [facility] Comment on above: Performed By: #### B MP #### [facility] [address] [place] [address] Dr. Silver Harrison Calcium [Mass/Vol] 8.4 mg/dL Critically low 8.5-10.[address] [facility] Comment on above: Performed By: #### B MP #### [facility] [address] [address] [address] Silver Harrison Chloride [Moles/Vol] 99 mmol/L Normal 98-107 [facility] Comment on above: Performed By: #### B MP #### [facility] [address] [address] [address] Silver Harrison CO2 [Moles/Vol] 27.9 mmol/L Normal 21.0-32.0 [facility] Comment on above: Performed By: #### B MP #### [facility] [address] [address] [address] Silver Harrison Creatinine [Mass/Vol] 4.81 mg/dL Critically high 0.55-1.02 [facility] Comment on above: Performed By: #### B MP #### [facility] [address] [address] [address] Silver Harrison EGFR-AF [place] 11 mL/min/1.73m2 Critically low >=60 [facility] Comment on above: Performed By: #### B MP #### [facility] [address] [place], [place] [address] Dr. Silver Harrison EGFR-NON AF [place] 9 mL/min/1.73m2 Critically low >=60 [facility] Comment on above: Performed By: #### B MP #### [facility] [address] [address] [address] Silver Harrison Glucose [Mass/Vol] 114 mg/dL Critically high 74-106 [facility] Comment on above: Performed By: #### B MP #### [facility] [address] [address] [address] Silver Harrison Potassium [Moles/Vol] 3.7 mmol/L Normal 3.5-5.1 [facility] Comment on above: Performed By: #### B MP #### [facility] [address] [address] [address] Silver Harrison Sodium [Moles/Vol] 135 mmol/L Critically low 136-145 [facility] Comment on above: Performed By: #### B MP #### [facility] [address] [address] [address] Silver Harrison Urea nitrogen [Mass/Vol] 33.0 mg/dL Critically high 7.0-18.0 [facility] Comment on above: Performed By: #### B MP #### [facility] [address] [address] [address] Silver Harrison Urea nitrogen/Creatinine [Mass ratio] 6.9 mg/mg Normal [facility] Comment on above: Performed By: #### B MP #### [facility] [address] [address] [address] Silver Harrison Partial Thromboplastin Timeo n 07-31-2022 aPTT Coag (Bld) [Time] 28.0 s Normal 25.1-36.5 [facility] Comment on above: Result Comment: PERF ORMED BY: [facility] [address] [address] PATHOLOGIST [employer] DANII HAYNES M.D. Performed By: #### G LUMAMIE #### Point of Care testing , Platelet mean volume Auto (B ld) [Entitic vol]Ordered By: Malcolm Moss on 07-31-2022 Platelet mean volume (Bld) [Entitic vol] 8.4 fL 6.3-10.[address] [facility] Platelet poor plasma interna tional normalized ratio (INR) by coagulation assay (relatOrdered By: Malcolm Moss on 07-31-2022 INR Coag (PPP) [Relative time] 1.1 {INR} [facility] Comment on above: INR Therapeutic Rang [...] (Bld) [#/Vol] 155 10*3/uL 150-[address] [facility] Potassium [Moles/volume] in Serum or PlasmaOrdered By: Malcolm Moss on 07-31-2022 Potassium [Moles/Vol] 4.3 mmol/L Normal 3.5-5.1 [facility] Comment on above: Performed By: #### G LULS #### Point of Care testing , Protein Auto test strip (U) [Mass/Vol]Ordered By: Malcolm Moss on 07-31-2022 Protein (U) [Mass/Vol] mg/dL Negative [facility] Protein [Mass/volume] in Ser um or PlasmaOrdered By: Malcolm Moss on 07-31-2022 Protein [Mass/Vol] 8.1 g/dL Normal 6.4-8.9 [facility] Comment on above: Performed By: #### G LULS #### Point of Care testing , Prothrombin Time INRon 07-31 INR Coag (PPP) [Relative time] 1.1 {INR} Normal [facility] Comment on above: Result Comment: INR [...] Coag (PPP) [Time] 12.3 s Normal 9.0-12.9 [facility] Comment on above: Performed By: #### G LULS #### Point of Care testing , RBC Auto (Bld) [#/Vol]Ordere d By: Malcolm Moss on 07-31-2022 RBC (Bld) [#/Vol] 3.45 10*6/uL 3.60-5.00 [facility] Redraw CKon 07-31-2022 CK [Catalytic activity/Vol] 70 U/L Normal 30-[address] [facility] Comment on above: Result Comment: PERF ORMED BY: [facility] [address] [place] [address] PATHOLOGIST [employer] DANII HAYNES M.D. Performed By: #### G MARLOLS #### Point of Care testing , Serum globulin measurement b y calculation (mass/volume)Ordered By: Malcolm Moss on 07-31-2022 Globulin (S) [Mass/Vol] 4.5 g/dL Normal [facility] Comment on above: Performed By: #### G MARLOLS #### Point of Care testing , Serum or plasma albumin/glob ulin mass ratioOrdered By: Malcolm Moss on 07-31-2022 Albumin/Globulin [Mass ratio] 0.8 {ratio} [facility] Comment on above: Performed By: #### G MARLOLS #### Point of Care testing , Serum or plasma anion gap de terminationOrdered By: Malcolm Moss on 07-31-2022 Anion gap [Moles/Vol] 16.0 mmol/L High 6.0-15.0 [facility] Comment on above: Performed By: #### G MARLOLS #### Point of Care testing , Serum or plasma non-glucuron idated bilirubin measurement (mass/volume)Ordered By: Malcolm Moss on 07-31-2022 Bilirubin.indirect [Mass/Vol] 0.5 mg/dL [facility] Sodium [Moles/volume] in Ser um or PlasmaOrdered By: Malcolm Moss on 07-31-2022 Sodium [Moles/Vol] 134 mmol/L Low 136-145 [facility] Comment on above: Performed By: #### G LULS #### Point of Care testing , Squamous epithelial cells de tection in urine sediment by light microscopyOrdered By: Malcolm Moss on 07-31-2022 Epithelial cells.squamous LM Ql (Urine sed) 10-19 [HPF] 0-[address] [facility] Troponin I High Sensitivityo n 07-31-2022 Troponin I High Sensitivity 7.7 pg/mL Normal 0.0-15.[address] [facility] Comment on above: Result Comment: PERF ORMED BY: [facility] [address] [place] [address] PATHOLOGIST [employer] DANII HAYNES M.D. Performed By: #### G LULS #### Point of Care testing , Troponin I.cardiac [Mass/vol ume] in Serum or Plasma by Detection limit <= 0.01 ng/Ordered By: Malcolm Moss on 07-31-2022 Troponin I.cardiac DL <= 0.01 ng/mL [Mass/Vol] 7.7 pg/mL 0.0-15.[address] [facility] Urea nitrogen [Mass/volume] in Serum or PlasmaOrdered By: Malcolm Moss on 07-31-2022 Urea nitrogen [Mass/Vol] 26 mg/dL High 7-[address] [facility] Comment on above: Performed By: #### G LULS #### Point of Care testing , Urine Cultureon 07-31-2022 Bacteria identified Cx Nom (U) ORGANISM: Escherichia coli (O:ESCCOL) [place] Count >100,000 Aerobic MARIANNE Charge (NMIC56) SUSCEPTIBILITY [...] RESISTANT TO ALL B-LACTAM DRUGS. PERFORMED BY: [address] [place] [address] PATHOLOGIST [employer] DANII HAYNES M.D. Normal [facility] Comment on above: Performed By: #### G LULS #### Point of Care testing , Urine appearanceOrdered By: Malcolm Moss on 07-31-2022 Appearance (U) Cloudy Critically abnormal Clear [facility] Comment on above: Order Comment: Name Collection Type:: Straight Catheter Performed By: #### G LULS #### Point of Care testing , Urine bacteria detection by automated methodOrdered By: Malcolm Moss on 07-31-2022 Bacteria Auto Ql (U) 3+ None Seen [facility] Urine colorOrdered By: Laura Moss on 07-31-2022 Color (U) Yellow Normal Yellow [facility] Comment on above: Order Comment: Name Collection Type:: Straight Catheter Performed By: #### G LULS #### Point of Care testing , Urine glucose measurement by automated test strip (mass/volume)Ordered By: Malcolm Moss on 07-31-2022 Glucose Auto test strip (U) [Mass/Vol] Normal mg/dL Normal [facility] Urine hemoglobin detection b y automated test stripOrdered By: Malcolm Moss on 07-31-2022 Hemoglobin Auto test strip Ql (U) 3+ Negative [facility] Urine leukocyte esterase det ection by automated test stripOrdered By: Malcolm Moss on 07-31-2022 Leukocyte esterase Auto test strip Ql (U) 4+ Negative [facility] Urine nitrite detection by a utomated test stripOrdered By: Malcolm Moss on 07-31-2022 Nitrite Auto test strip Ql (U) Negative Negative [facility] Urine pH measurement by auto mated test stripOrdered By: Malcolm Moss on 07-31-2022 pH (U) 6.0 [pH] Normal 5.0-9.[address] [facility] Comment on above: Order Comment: Name Collection Type:: Straight Catheter Performed By: #### G LULS #### Point of Care testing , Urobilinogen Auto test strip (U) [Mass/Vol]Ordered By: Malcolm Moss on 07-31-2022 Urobilinogen (U) [Mass/Vol] Normal mg/dL Normal [facility] WBC Auto (Bld) [#/Vol]Ordere d By: Malcolm Moss on 07-31-2022 WBC (Bld) [#/Vol] 27.0 10*3/uL 3.8-11.6 [facility] XR chest 1V portableon 07-31 XR chest 1V portable [facility] Main [place] [id number] XRay Report Signed Patient: Amparo Castorena MR#: [id number] : 1950 Acct:[id number] Age/Sex: 71 / F ADM Date: 07/31/22 Loc: ER Room: Type: [facility] ER Attending Dr: Copies to: Malcolm [...] Wei Jr., DElaineOElaine07/31/2022 3:53 PM Dictation Location: [place] [address] Transcribed By: [facility] 07/31/221552 Dictated By: Dewayne Wei Jr, DO 07/31/221551 Signed By: 07/31/2215[address] [facility] Yeast detection in urine sed iment by light microscopyOrdered By: Malcolm Moss on 07-31-2022 Yeast LM Ql (Urine sed) N/A [facility] pH Auto test strip (U)Ordere d By: Malcolm Moss on 07-31-2022 pH (U) 1.020 [pH] 1.001-1.[address] [facility] CBC AUTO DIFFon 07-29-2022 BASO # 0.1 103/ul Normal 0.0-0.1 [facility] Comment on above: Performed By: #### U SUNITA, MG, RENAL #### [facility] [address] [place] [address] [address] Silver Harrison Basophils/100 WBC (Bld) 0.6 % Normal 0.2-2.0 [facility] Comment on above: Performed By: #### U SUNITA, MG, RENAL #### [facility] [address] [place] [address] [address] Silver Harrison EO # 0.1 103/ul Normal 0.0-0.7 [facility] Comment on above: Performed By: #### U SUNITA, MG, RENAL #### [facility] [address] [address] [address] Silver Harrison Eosinophils/100 WBC (Bld) 1.8 % Normal 0.9-7.0 [facility] Comment on above: Performed By: #### U SUNITA, MG, RENAL #### [facility] [address] [address] [address] Silver Harrison Erythrocyte distribution width (RBC) [Ratio] 13.2 % Normal 11.0-15.0 [facility] Comment on above: Performed By: #### U SUNITA, MG, RENAL #### [facility] [address] [place] [address] Dr. Silver Harrison Hematocrit (Bld) [Volume fraction] 45.2 % Normal 36.0-48.0 [facility] Comment on above: Performed By: #### U SUNITA, MG, RENAL #### [facility] [address] [place] [address] Dr. Silver Harrison Hemoglobin (Bld) [Mass/Vol] 15.3 g/dL Normal 12.0-16.0 [facility] Comment on above: Performed By: #### U SUNITA, MG, RENAL #### [facility] [address] [place] [address] Dr. Silver Harrison IG # 0.07 10e3/ul Critically high 0.00-0.03 [facility] Comment on above: Performed By: #### U SUNITA, MG, RENAL #### [facility] [address] [place] [address] Dr. Silver Harrison IG % 0.9 % Critically high 0.0-0.5 [facility] Comment on above: Performed By: #### U SUNITA, MG, RENAL #### [facility] [address] [place] [address] Dr. Silver Harrison LYMPH # 2.1 103/ul Normal 1.2-3.8 [facility] Comment on above: Performed By: #### U SUNITA, MG, RENAL #### [facility] [address] [place] [address] Dr. Silver Harrison Lymphocytes/100 WBC (Bld) 27.2 % Normal 20.5-60.0 [facility] Comment on above: Performed By: #### U SUNITA, MG, RENAL #### [facility] [address] [place] [address] Dr. Silver Harrison MANUAL DIFF REQ NO Normal [facility] Comment on above: Performed By: #### U SUNITA, MG, RENAL #### [facility] [address] [place] [address] Dr. Silver Harrison MCH (RBC) [Entitic mass] 31.5 pg Normal 26.7-34.0 [facility] Comment on above: Performed By: #### U SUNITA, MG, RENAL #### [facility] [address] [place] [address] Dr. Silver Harrison MCHC (RBC) [Mass/Vol] 33.8 g/dL Normal 29.9-35.2 [facility] Comment on above: Performed By: #### U SUNITA, MG, RENAL #### [facility] [address] [place] [address] Dr. Silver Harrison MCV (RBC) [Entitic vol] 93.0 fL Normal 81.0-99.0 [facility] Comment on above: Performed By: #### U SUNITA, MG, RENAL #### [facility] [address] [place] [address] Dr. Silver Harrison MONO # 0.5 103/ul Normal 0.3-0.8 [facility] Comment on above: Performed By: #### U SUNITA, MG, RENAL #### [facility] [address] [place] [address] Dr. Silver Harrison Monocytes/100 WBC (Bld) 7.0 % Normal 1.7-12.0 [facility] Comment on above: Performed By: #### U SUNITA, MG, RENAL #### [facility] [address] [place] [address] Dr. Silver Harrison NEUT # 4.8 103/ul Normal 1.4-6.5 [facility] Comment on above: Performed By: #### U SUNITA, MG, RENAL #### [facility] [address] [place] [address] Dr. Silver Harrison Neutrophils/100 WBC (Bld) 62.5 % Normal 43.0-75.0 [facility] Comment on above: Performed By: #### U SUNITA, MG, RENAL #### [facility] [address] [place] [address] Dr. Silver Harrison Platelet mean volume (Bld) [Entitic vol] 12.2 fL Normal 9.5-13.5 [facility] Comment on above: Performed By: #### U SUNITA, MG, RENAL #### [facility] [address] [place] [address] Dr. Silver Harrison PLT 156 103/ul Normal 150-450 [facility] Comment on above: Performed By: #### U SUNITA, MG, RENAL #### [facility] [address] [place] [address] Dr. Silver Harrison RBC 4.86 106/ul Normal 4.20-5.40 [facility] Comment on above: Performed By: #### U SUNITA, MG, RENAL #### [facility] [address] [place] [address] Dr. Silver Harrison WBC 7.8 103/ul Normal 4.0-11.0 [facility] Comment on above: Performed By: #### U SUNITA, MG, RENAL #### [facility] [address] [place] [address] Dr. Silver Harrison FERRITINon 07-29-2022 Ferritin [Mass/Vol] 704.0 ng/mL Critically high 8.0-252.0 [facility] Comment on above: Performed By: #### U SUNITA, MG, RENAL #### [facility] [address] [place] [address] Dr. Silver Harrison IRON AND TIBCon 07-29-2022 % SATURATION 20.2 % Normal [facility] Comment on above: Performed By: #### U SUNITA, MG, RENAL #### [facility] [address] [place] [address] Dr. Silver Harrison Iron [Mass/Vol] 47.0 ug/dL Critically low 50.0-170.0 [facility] Comment on above: Performed By: #### U SUNITA, MG, RENAL #### [facility] [address] [place] [address] Dr. Silver Harrison TIBC DIRECT 233.0 ug/dL Critically low 250.0-450. 0 [facility] Comment on above: Performed By: #### U SUNITA, MG, RENAL #### [facility] [address] [address] [address] Silver Harrison CBC AUTO DIFFon 07-24-2022 BASO # 0.1 103/ul Normal 0.0-0.1 [facility] Comment on above: Performed By: #### B MP #### [facility] [address] [address] [address] Silver Harrison Basophils/100 WBC (Bld) 0.6 % Normal 0.2-2.0 [facility] Comment on above: Performed By: #### B MP #### [facility] [address] [address] [address] Silver Harrison EO # 0.3 103/ul Normal 0.0-0.7 [facility] Comment on above: Performed By: #### B MP #### [facility] [address] [place] [address] Dr. Silver Harrison Eosinophils/100 WBC (Bld) 2.3 % Normal 0.9-7.0 [facility] Comment on above: Performed By: #### B MP #### [facility] [address] [place] [address] Dr. Silver Harrison Erythrocyte distribution width (RBC) [Ratio] 13.3 % Normal 11.0-15.0 [facility] Comment on above: Performed By: #### B MP #### [facility] [address] [place] [address] Dr. Silver Harrison Hematocrit (Bld) [Volume fraction] 28.8 % Critically low 36.0-48.0 [facility] Comment on above: Performed By: #### B MP #### [facility] [address] [place] [address] Dr. Silver Harrison Hemoglobin (Bld) [Mass/Vol] 8.8 g/dL Critically low 12.0-16.0 [facility] Comment on above: Performed By: #### B MP #### [facility] [address] [place] [address] Dr. Silver Harrison IG # 0.12 10e3/ul Critically high 0.00-0.03 [facility] Comment on above: Performed By: #### B MP #### [facility] [address] [place] [address] Dr. Silver Harrison IG % 1.1 % Critically high 0.0-0.5 [facility] Comment on above: Performed By: #### B MP #### [facility] [address] [place] [address] Dr. Silver Harrison LYMPH # 2.4 103/ul Normal 1.2-3.8 [facility] Comment on above: Performed By: #### B MP #### [facility] [address] [place] [address] Dr. Silver Harrison Lymphocytes/100 WBC (Bld) 22.0 % Normal 20.5-60.0 [facility] Comment on above: Performed By: #### B MP #### [facility] [address] [place] [address] Dr. Silver Harrison MANUAL DIFF REQ NO Normal [facility] Comment on above: Performed By: #### B MP #### [facility] [address] [place] [address] Dr. Silver Harrison MCH (RBC) [Entitic mass] 28.9 pg Normal 26.7-34.0 [facility] Comment on above: Performed By: #### B MP #### [facility] [address] [place] [address] Dr. Silver Harrison MCHC (RBC) [Mass/Vol] 30.6 g/dL Normal 29.9-35.2 [facility] Comment on above: Performed By: #### B MP #### [facility] [address] [place] [address] Dr. Silver Harrison MCV (RBC) [Entitic vol] 94.4 fL Normal 81.0-99.0 [facility] Comment on above: Performed By: #### B MP #### [facility] [address] [place] [address] Dr. Silver Harrison MONO # 0.5 103/ul Normal 0.3-0.8 [facility] Comment on above: Performed By: #### B MP #### [facility] [address] [place] [address] Dr. Silver Harrison Monocytes/100 WBC (Bld) 4.8 % Normal 1.7-12.0 [facility] Comment on above: Performed By: #### B MP #### [facility] [address] [place] [address] Dr. Silver Harrison NEUT # 7.4 103/ul Critically high 1.4-6.5 [facility] Comment on above: Performed By: #### B MP #### [facility] [address] [place] [address] Dr. Silver Harrison Neutrophils/100 WBC (Bld) 69.2 % Normal 43.0-75.0 [facility] Comment on above: Performed By: #### B MP #### [facility] [address] [place] [address] Dr. Silver Harrison Platelet mean volume (Bld) [Entitic vol] 9.8 fL Normal 9.5-13.5 [facility] Comment on above: Performed By: #### B MP #### [facility] [address] [place] [address] Dr. Silver Harrison PLT 146 103/ul Critically low 150-450 [facility] Comment on above: Performed By: #### B MP #### [facility] [address] [place] [address] Dr. Silver Harrison RBC 3.05 106/ul Critically low 4.20-5.40 [facility] Comment on above: Performed By: #### B MP #### [facility] [address] [place] [address] Dr. Silver Harrison WBC 10.7 103/ul Normal 4.0-11.0 [facility] Comment on above: Performed By: #### B MP #### [facility] [address] [place] [address] Dr. Silver Harrison PHOSPHORUSon 07-24-2022 Phosphate [Mass/Vol] 4.5 mg/dL Normal 2.6-4.7 [facility] Comment on above: Performed By: #### U SUNITA, MG, RENAL #### [facility] [address] [address] [address] Silver Harrison PROF CHEM 8 (BAS METB)on Anion gap [Moles/Vol] 13.6 mmol/L Normal [facility] Comment on above: Performed By: #### U SUNITA, MG, RENAL #### [facility] [address] [place] [address] Dr. Silver Harrison Calcium [Mass/Vol] 8.5 mg/dL Normal 8.5-10.1 [facility] Comment on above: Performed By: #### U SUNITA, MG, RENAL #### [facility] [address] [place] [address] Dr. Silver Harrison Chloride [Moles/Vol] 105 mmol/L Normal 98-107 [facility] Comment on above: Performed By: #### U SUNITA, MG, RENAL #### [facility] [address] [place] [address] Dr. Silver Harrison CO2 [Moles/Vol] 25.8 mmol/L Normal 21.0-32.0 [facility] Comment on above: Performed By: #### U SUNITA, MG, RENAL #### [facility] [address] [place] [address] Dr. Silver Harrison Creatinine [Mass/Vol] 4.02 mg/dL Critically high 0.55-1.02 [facility] Comment on above: Performed By: #### U SUNITA, MG, RENAL #### [facility] [address] [place] [address] Dr. Silver Harrison EGFR-AF MOSOTHO 13 mL/min/1.73m2 Critically low >=60 [facility] Comment on above: Performed By: #### U SUNITA, MG, RENAL #### [facility] [address] [place] [address] Dr. Silver Harrison EGFR-NON AF [place] 11 mL/min/1.73m2 Critically low >=60 [facility] Comment on above: Performed By: #### U SUNITA, MG, RENAL #### [facility] [address] [place] [address] Dr. Silver Harrison Glucose [Mass/Vol] 74 mg/dL Normal 74-106 [facility] Comment on above: Performed By: #### U SUNITA, MG, RENAL #### [facility] [address] [place] [address] Dr. Silver Harrison Potassium [Moles/Vol] 4.4 mmol/L Normal 3.5-5.1 [facility] Comment on above: Performed By: #### U SUNITA, MG, RENAL #### [facility] [address] [place] [address] Dr. Silver Harrison Sodium [Moles/Vol] 140 mmol/L Normal 136-145 [facility] Comment on above: Performed By: #### U SUNITA, MG, RENAL #### [facility] [address] [place] [address] Dr. Silver Harrison Urea nitrogen [Mass/Vol] 45.0 mg/dL Critically high 7.0-18.0 [facility] Comment on above: Performed By: #### U SUNITA, MG, RENAL #### [facility] [address] [place] [address] Dr. Silver Harrison Urea nitrogen/Creatinine [Mass ratio] 11.2 mg/mg Normal [facility] Comment on above: Performed By: #### U SUNITA, MG, RENAL #### [facility] [address] [place] [address] Dr. Silver Harrison [facility] Normal Negative [facility] Comment on above: Performed By: #### H EPACUT #### [facility] [address] [place] [address] Dr. Silver Harrison HCV AB Non-Reactive Normal Non Reactive [facility] Comment on above: Performed By: #### H EPACUT #### [facility] [address] [place] [address] Dr. Silver Harrison Hep A Ab, IgM Negative Normal Negative [facility] Comment on above: Performed By: #### H EPACUT #### [facility] [address] [place] [address] Dr. Sivler Harrison Hep B Core Ab, IgM Negative Normal Negative [facility] Comment on above: Performed By: #### H EPACUT #### [facility] [address] [place] [address] Dr. Silver Harrison Interpretation: Comment Normal [facility] Comment on above: Result Comment: Not infected with HCV unless early or acute infection is suspected (which may be delayed in an immunocompromised individual), or other evidence exists to indicate HCV infection. Performed By: #### H EPACUT #### [facility] [address] [place] [address] Dr. Silver Harrison PTH INTACTon 07-21-2022 PTH, Intact 164 pg/mL Critically high 15-65 [facility] Comment on above: Performed By: #### U SUNITA, MG, RENAL #### [facility] [address] [place] [address] Dr. Silver Harrison CBC AUTO DIFFon 07-20-2022 BASO # 0.0 103/ul Normal 0.0-0.1 [facility] Comment on above: Performed By: #### C BC #### [facility] [address] [place] [address] Dr. Silver Harrison Basophils/100 WBC (Bld) 0.3 % Normal 0.2-2.0 [facility] Comment on above: Performed By: #### C BC #### [facility] [address] [place] [address] Dr. Silver Harrison EO # 0.2 103/ul Normal 0.0-0.7 [facility] Comment on above: Performed By: #### C BC #### [facility] [address] [place] [address] Dr. Silver Harrison Eosinophils/100 WBC (Bld) 2.5 % Normal 0.9-7.0 [facility] Comment on above: Performed By: #### C BC #### [facility] [address] [place] [address] Dr. Silver Harrison Erythrocyte distribution width (RBC) [Ratio] 13.2 % Normal 11.0-15.0 [facility] Comment on above: Performed By: #### C BC #### [facility] [address] [place] [address] Dr. Silver Harrison Hematocrit (Bld) [Volume fraction] 28.7 % Critically low 36.0-48.0 [facility] Comment on above: Performed By: #### C BC #### [facility] [address] [place] [address] Dr. Silver Harrison Hemoglobin (Bld) [Mass/Vol] 8.6 g/dL Critically low 12.0-16.0 [facility] Comment on above: Performed By: #### C BC #### [facility] [address] [place] [address] Dr. Silver Harrison IG # 0.05 10e3/ul Critically high 0.00-0.03 [facility] Comment on above: Performed By: #### C BC #### [facility] [address] [place] [address] Dr. Silver Harrison IG % 0.5 % Normal 0.0-0.5 [facility] Comment on above: Performed By: #### C BC #### [facility] [address] [place] [address] Dr. Silver Harrison LYMPH # 1.9 103/ul Normal 1.2-3.8 [facility] Comment on above: Performed By: #### C BC #### [facility] [address] [place] [address] Dr. Silver Harrison Lymphocytes/100 WBC (Bld) 20.3 % Critically low 20.5-60.0 [facility] Comment on above: Performed By: #### C BC #### [facility] [address] [place] [address] Dr. Silver Harrison MANUAL DIFF REQ NO Normal [facility] Comment on above: Performed By: #### C BC #### [facility] [address] [place] [address] Dr. Silver Harrison MCH (RBC) [Entitic mass] 28.9 pg Normal 26.7-34.0 [facility] Comment on above: Performed By: #### C BC #### [facility] [address] [place] [address] Dr. Silver Harrison MCHC (RBC) [Mass/Vol] 30.0 g/dL Normal 29.9-35.2 [facility] Comment on above: Performed By: #### C BC #### [facility] [address] [place] [address] Dr. Silver aHrrison MCV (RBC) [Entitic vol] 96.3 fL Normal 81.0-99.0 [facility] Comment on above: Performed By: #### C BC #### [facility] [address] [place] [address] Dr. Silver Harrison MONO # 0.6 103/ul Normal 0.3-0.8 [facility] Comment on above: Performed By: #### C BC #### [facility] [address] [place] [address] Dr. Silver Harrison Monocytes/100 WBC (Bld) 6.1 % Normal 1.7-12.0 [facility] Comment on above: Performed By: #### C BC #### [facility] [address] [place] [address] Dr. Silver Harrison NEUT # 6.5 103/ul Normal 1.4-6.5 [facility] Comment on above: Performed By: #### C BC #### [facility] [address] [place] [address] Dr. Silver Harrison Neutrophils/100 WBC (Bld) 70.3 % Normal 43.0-75.0 [facility] Comment on above: Performed By: #### C BC #### [facility] [address] [place] [address] Dr. Silver Harrison Platelet mean volume (Bld) [Entitic vol] 9.8 fL Normal 9.5-13.5 [facility] Comment on above: Performed By: #### C BC #### [facility] [address] [place] [address] Dr. Silver Harrison PLT 171 103/ul Normal 150-450 [facility] Comment on above: Performed By: #### C BC #### [facility] [address] [place] [address] Dr. Silver Harrison RBC 2.98 106/ul Critically low 4.20-5.40 [facility] Comment on above: Performed By: #### C BC #### [facility] [address] [address] [address] Silver Harrison WBC 9.3 103/ul Normal 4.0-11.0 [facility] Comment on above: Performed By: #### C BC #### [facility] [address] [place] [address] Dr. Silver Harrison FERRITINon 07-20-2022 Ferritin [Mass/Vol] 381.0 ng/mL Critically high 8.0-252.0 [facility] Comment on above: Performed By: #### B MP #### [facility] [address] [place] [address] Dr. Silver Harrison IRON AND TIBCon 07-20-2022 % SATURATION 14.6 % Normal [facility] Comment on above: Performed By: #### B MP #### [facility] [address] [place] [address] Dr. Silver Harrison Iron [Mass/Vol] 30.0 ug/dL Critically low 50.0-170.0 [facility] Comment on above: Performed By: #### B MP #### [facility] [address] [place] [address] Dr. Silver Harrison TIBC DIRECT 206.0 ug/dL Critically low 250.0-450. 0 [facility] Comment on above: Performed By: #### B MP #### [facility] [address] [place] [address] Dr. Silver Harrison PROF 14(COMP METB)on 023 Albumin [Mass/Vol] 2.8 g/dL Critically low 3.4-5.0 [facility] Comment on above: Performed By: #### B MP #### [facility] [address] [place] [address] Dr. Silver Harrison Albumin/Globulin [Mass ratio] 0.5 {ratio} Normal [facility] Comment on above: Performed By: #### B MP #### [facility] [address] [place] [address] Dr. Silver Harrison ALP [Catalytic activity/Vol] 145 U/L Critically high 46-116 [facility] Comment on above: Performed By: #### B MP #### [facility] [address] [address] [address] Silver Harrison ALT [Catalytic activity/Vol] 13 U/L Critically low 14-59 [facility] Comment on above: Performed By: #### B MP #### [facility] [address] [address] [address] Silver Harrison Anion gap [Moles/Vol] 15.6 mmol/L Normal [facility] Comment on above: Performed By: #### B MP #### [facility] [address] [address] [address] Silver Harrison AST [Catalytic activity/Vol] 12 U/L Critically low 15-37 [facility] Comment on above: Performed By: #### B MP #### [facility] [address] [address] [address] Silver Harrison Bilirubin [Mass/Vol] 0.2 mg/dL Normal 0.2-1.0 [facility] Comment on above: Performed By: #### B MP #### [facility] [address] [address] [address] Silver Harrison Calcium [Mass/Vol] 8.3 mg/dL Critically low 8.5-10.[address] [facility] Comment on above: Performed By: #### B MP #### [facility] [address] [address] [address] Silver Harrison Chloride [Moles/Vol] 113 mmol/L Critically high 98-107 [facility] Comment on above: Performed By: #### B MP #### [facility] [address] [address] [address] Silver Harrison CO2 [Moles/Vol] 25.1 mmol/L Normal 21.0-32.0 [facility] Comment on above: Performed By: #### B MP #### [facility] [address] [address] [address] Silver Harrison Creatinine [Mass/Vol] 4.32 mg/dL Critically high 0.55-1.02 [facility] Comment on above: Performed By: #### B MP #### [facility] [address] [address] [address] Silver Harrison EGFR-AF MOSOTHO 12 mL/min/1.73m2 Critically low >=60 [facility] Comment on above: Performed By: #### B MP #### [facility] [address] [address] [address] Silver Harrison EGFR-NON AF MOSOTHO 10 mL/min/1.73m2 Critically low >=60 [facility] Comment on above: Performed By: #### B MP #### [facility] [address] [address] [address] Silver Harrison Globulin (S) [Mass/Vol] 5.6 g/dL Normal [facility] Comment on above: Performed By: #### B MP #### [facility] [address] [address] [address] Silver Harrison Glucose [Mass/Vol] 45 mg/dL Critically low 74-[address] [facility] Comment on above: Performed By: #### B MP #### [facility] [address] [address] [address] Silver Harrison Potassium [Moles/Vol] 4.7 mmol/L Normal 3.5-5.1 [facility] Comment on above: Performed By: #### B MP #### [facility] [address] [address] [address] Silver Harrison Protein [Mass/Vol] 8.4 g/dL Critically high 6.4-8.2 [facility] Comment on above: Performed By: #### B MP #### [facility] [address] [address] [address] Silver Harrison Sodium [Moles/Vol] 149 mmol/L Critically high 136-145 [facility] Comment on above: Performed By: #### B MP #### [facility] [address] [address] [address] Silver Harrison Urea nitrogen [Mass/Vol] 54.0 mg/dL Critically high 7.0-18.0 [facility] Comment on above: Performed By: #### B MP #### [facility] [address] [place] [address] Dr. Silver Harrison Urea nitrogen/Creatinine [Mass ratio] 12.5 mg/mg Normal [facility] Comment on above: Performed By: #### B MP #### [facility] [address] [place] [address] Dr. Silver Harrison VIT B12 AND FOLATEon 023 Cobalamin (Vitamin B12) [Mass/Vol] 395.0 pg/mL Normal 193.0-986. 0 [facility] Comment on above: Performed By: #### B MP #### [facility] [address] [place] [address] Dr. Silver Harrison FOLATE 5.60 ng/mL Critically low 8.60-58.90 [facility] Comment on above: Performed By: #### B MP #### [facility] [address] [place] [address] Dr. Silver Harrison CBC AUTO DIFFon 07-17-2022 BASO # 0.0 103/ul Normal 0.0-0.1 [facility] Comment on above: Performed By: #### C BC #### [facility] [address] [place] [address] Dr. Silver Harrison Basophils/100 WBC (Bld) 0.5 % Normal 0.2-2.0 [facility] Comment on above: Performed By: #### C BC #### [facility] [address] [place] [address] Dr. Silver Harrison EO # 0.2 103/ul Normal 0.0-0.7 [facility] Comment on above: Performed By: #### C BC #### [facility] [address] [place] [address] Dr. Silver Harrison Eosinophils/100 WBC (Bld) 2.6 % Normal 0.9-7.0 [facility] Comment on above: Performed By: #### C BC #### [facility] [address] [place] [address] Dr. Silver Harrison Erythrocyte distribution width (RBC) [Ratio] 13.2 % Normal 11.0-15.0 [facility] Comment on above: Performed By: #### C BC #### [facility] [address] [place] [address] Dr. Silver Harrison Hematocrit (Bld) [Volume fraction] 25.7 % Critically low 36.0-48.0 [facility] Comment on above: Performed By: #### C BC #### [facility] [address] [place] [address] Dr. Silver Harrison Hemoglobin (Bld) [Mass/Vol] 7.7 g/dL Critically low 12.0-16.0 [facility] Comment on above: Performed By: #### C BC #### [facility] [address] [place] [address] Dr. Silver Harrison IG # 0.04 10e3/ul Critically high 0.00-0.03 [facility] Comment on above: Performed By: #### C BC #### [facility] [address] [place] [address] Dr. Silver Harrison IG % 0.5 % Normal 0.0-0.5 [facility] Comment on above: Performed By: #### C BC #### [facility] [address] [place] [address] Dr. Silver Harrison LYMPH # 1.9 103/ul Normal 1.2-3.8 [facility] Comment on above: Performed By: #### C BC #### [facility] [address] [place] [address] Dr. Silver Harrison Lymphocytes/100 WBC (Bld) 21.8 % Normal 20.5-60.0 [facility] Comment on above: Performed By: #### C BC #### [facility] [address] [place] [address] Dr. Silver Harrison MANUAL DIFF REQ NO Normal [facility] Comment on above: Performed By: #### C BC #### [facility] [address] [place] [address] Dr. Silver Harrison MCH (RBC) [Entitic mass] 29.2 pg Normal 26.7-34.0 [facility] Comment on above: Performed By: #### C BC #### [facility] [address] [address] [address] Silver Harrison MCHC (RBC) [Mass/Vol] 30.0 g/dL Normal 29.9-35.2 [facility] Comment on above: Performed By: #### C BC #### [facility] [address] [address] [address] Silver Harrison MCV (RBC) [Entitic vol] 97.3 fL Normal 81.0-99.0 [facility] Comment on above: Performed By: #### C BC #### [facility] [address] [place] [address] Dr. Silver Harrison MONO # 0.6 103/ul Normal 0.3-0.8 [facility] Comment on above: Performed By: #### C BC #### [facility] [address] [place] [address] Dr. Silver Harrison Monocytes/100 WBC (Bld) 7.3 % Normal 1.7-12.0 [facility] Comment on above: Performed By: #### C BC #### [facility] [address] [place] [address] Dr. Silver Harrison NEUT # 5.7 103/ul Normal 1.4-6.5 [facility] Comment on above: Performed By: #### C BC #### [facility] [address] [place] [address] Dr. Silver Harrison Neutrophils/100 WBC (Bld) 67.3 % Normal 43.0-75.0 [facility] Comment on above: Performed By: #### C BC #### [facility] [address] [address] [address] Silver Harrison Platelet mean volume (Bld) [Entitic vol] 10.0 fL Normal 9.5-13.5 [facility] Comment on above: Performed By: #### C BC #### [facility] [address] [address] [address] Silver Harrison PLT 154 103/ul Normal 150-450 [facility] Comment on above: Performed By: #### C BC #### [facility] [address] [place] [address] Dr. Silver Harrison RBC 2.64 106/ul Critically low 4.20-5.40 [facility] Comment on above: Performed By: #### C BC #### [facility] [address] [place] [address] Dr. Silver Harrison WBC 8.5 103/ul Normal 4.0-11.0 [facility] Comment on above: Performed By: #### C BC #### [facility] [address] [place] [address] Dr. Silver Harrison PHOSPHORUSon 07-17-2022 Phosphate [Mass/Vol] 4.9 mg/dL Critically high 2.6-4.7 [facility] Comment on above: Performed By: #### U SUNITA, MG, RENAL #### [facility] [address] [place] [address] Dr. Silver Harrison PROF CHEM 8 (BAS METB)on Anion gap [Moles/Vol] 12.1 mmol/L Normal [facility] Comment on above: Performed By: #### U SUNITA, MG, RENAL #### [facility] [address] [place] [address] Dr. Silver Harrison Calcium [Mass/Vol] 7.9 mg/dL Critically low 8.5-10.[address] [facility] Comment on above: Performed By: #### U SUNITA, MG, RENAL #### [facility] [address] [place] [address] Dr. Silver Harrison Chloride [Moles/Vol] 108 mmol/L Critically high 98-107 [facility] Comment on above: Performed By: #### U SUNITA, MG, RENAL #### [facility] [address] [place] [address] Dr. Silver Harrison CO2 [Moles/Vol] 26.4 mmol/L Normal 21.0-32.0 [facility] Comment on above: Performed By: #### U SUNITA, MG, RENAL #### [facility] [address] [place] [address] Dr. Silver Harrison Creatinine [Mass/Vol] 4.33 mg/dL Critically high 0.55-1.02 [facility] Comment on above: Performed By: #### U SUNITA, MG, RENAL #### [facility] [address] [address] [address] Silver Harrison EGFR-AF MOSOTHO 12 mL/min/1.73m2 Critically low >=60 [facility] Comment on above: Performed By: #### U SUNITA, MG, RENAL #### [facility] [address] [place] [address] Dr. Silver Harrison EGFR-NON AF MOSOTHO 10 mL/min/1.73m2 Critically low >=60 [facility] Comment on above: Performed By: #### U SUNITA, MG, RENAL #### [facility] [address] [place] [address] Dr. Silver Harrison Glucose [Mass/Vol] 86 mg/dL Normal 74-106 [facility] Comment on above: Performed By: #### U SUNITA, MG, RENAL #### [facility] [address] [place] [address] Dr. Silver Harrison Potassium [Moles/Vol] 4.5 mmol/L Normal 3.5-5.1 [facility] Comment on above: Performed By: #### U SUNITA, MG, RENAL #### [facility] [address] [place] [address] Dr. Silver Harrison Sodium [Moles/Vol] 142 mmol/L Normal 136-145 [facility] Comment on above: Performed By: #### U SUNITA, MG, RENAL #### [facility] [address] [address] [address] Silver Harrison Urea nitrogen [Mass/Vol] 50.0 mg/dL Critically high 7.0-18.0 [facility] Comment on above: Performed By: #### U SUNITA, MG, RENAL #### [facility] [address] [address] [address] Silver Harrison Urea nitrogen/Creatinine [Mass ratio] 11.5 mg/mg Normal [facility] Comment on above: Performed By: #### U SUNITA, MG, RENAL #### [facility] [address] [place] [address] Dr. Silver Harrison CBC AUTO DIFFon 07-03-2022 BASO # 0.0 103/ul Normal 0.0-0.1 [facility] Comment on above: Performed By: #### U SUNITA, MG, RENAL #### [facility] [address] [place] [address] Dr. Silver Harrison Basophils/100 WBC (Bld) 0.4 % Normal 0.2-2.0 [facility] Comment on above: Performed By: #### U SUNITA, MG, RENAL #### [facility] [address] [place] [address] Dr. Silver Harrison EO # 0.3 103/ul Normal 0.0-0.7 [facility] Comment on above: Performed By: #### U SUNITA, MG, RENAL #### [facility] [address] [place] [address] Dr. Silver Harrison Eosinophils/100 WBC (Bld) 2.9 % Normal 0.9-7.0 [facility] Comment on above: Performed By: #### U SUNITA, MG, RENAL #### [facility] [address] [place] [address] Dr. Silver Harrison Erythrocyte distribution width (RBC) [Ratio] 12.9 % Normal 11.0-15.0 [facility] Comment on above: Performed By: #### U SUNITA, MG, RENAL #### [facility] [address] [place] [address] Dr. Silver Harrison Hematocrit (Bld) [Volume fraction] 28.0 % Critically low 36.0-48.0 [facility] Comment on above: Performed By: #### U SUNITA, MG, RENAL #### [facility] [address] [place] [address] Dr. Silver Harrison Hemoglobin (Bld) [Mass/Vol] 8.5 g/dL Critically low 12.0-16.0 [facility] Comment on above: Performed By: #### U SUNITA, MG, RENAL #### [facility] [address] [place] [address] Dr. Silver Harrison IG # 0.07 10e3/ul Critically high 0.00-0.03 [facility] Comment on above: Performed By: #### U SUNITA, MG, RENAL #### [facility] [address] [address] [address] Silver Harrison IG % 0.7 % Critically high 0.0-0.5 [facility] Comment on above: Performed By: #### U SUNITA, MG, RENAL #### [facility] [address] [address] [address] Silver Harrison LYMPH # 1.7 103/ul Normal 1.2-3.8 [facility] Comment on above: Performed By: #### U SUNITA, MG, RENAL #### [facility] [address] [place] [address] Dr. Silver Harrison Lymphocytes/100 WBC (Bld) 17.7 % Critically low 20.5-60.0 [facility] Comment on above: Performed By: #### U SUNITA, MG, RENAL #### [facility] [address] [place] [address] Dr. Silver Harrison MANUAL DIFF REQ NO Normal [facility] Comment on above: Performed By: #### U SUNITA, MG, RENAL #### [facility] [address] [place] [address] Dr. Silver Harrison MCH (RBC) [Entitic mass] 29.0 pg Normal 26.7-34.0 [facility] Comment on above: Performed By: #### U SUNITA, MG, RENAL #### [facility] [address] [place] [address] Dr. Silver Harrison MCHC (RBC) [Mass/Vol] 30.4 g/dL Normal 29.9-35.2 [facility] Comment on above: Performed By: #### U SUNITA, MG, RENAL #### [facility] [address] [place] [address] Dr. Silver Harrison MCV (RBC) [Entitic vol] 95.6 fL Normal 81.0-99.0 [facility] Comment on above: Performed By: #### U SUNITA, MG, RENAL #### [facility] [address] [address] [address] Silver Harrison MONO # 0.6 103/ul Normal 0.3-0.8 [facility] Comment on above: Performed By: #### U SUNITA, MG, RENAL #### [facility] [address] [address] [address] Silver Harrison Monocytes/100 WBC (Bld) 5.7 % Normal 1.7-12.0 [facility] Comment on above: Performed By: #### U SUNITA, MG, RENAL #### [facility] [address] [address] [address] Silver Harrison NEUT # 7.1 103/ul Critically high 1.4-6.5 [facility] Comment on above: Performed By: #### U SUNITA, MG, RENAL #### [facility] [address] [place] [address] Dr. Silver Harrison Neutrophils/100 WBC (Bld) 72.6 % Normal 43.0-75.0 [facility] Comment on above: Performed By: #### U USNITA, MG, RENAL #### [facility] [address] [address] [address] Silver Harrison Platelet mean volume (Bld) [Entitic vol] 9.8 fL Normal 9.5-13.5 [facility] Comment on above: Performed By: #### U SUNITA, MG, RENAL #### [facility] [address] [address] [address] Silver Harrison PLT 188 103/ul Normal 150-450 [facility] Comment on above: Performed By: #### U SUNITA, MG, RENAL #### [facility] [address] [address] [address] Silver Harrison RBC 2.93 106/ul Critically low 4.20-5.40 [facility] Comment on above: Performed By: #### U SUNITA, MG, RENAL #### [facility] [address] [place] [address] Dr. Silver Harrison WBC 9.7 103/ul Normal 4.0-11.0 [facility] Comment on above: Performed By: #### U SUNITA, MG, RENAL #### [facility] [address] [address] [address] Silver Harrison PROF CHEM 8 (BAS METB)on Anion gap [Moles/Vol] 10.9 mmol/L Normal [facility] Comment on above: Performed By: #### B MP #### [facility] [address] [address] [address] Silver Harrison Calcium [Mass/Vol] 8.5 mg/dL Normal 8.5-10.1 [facility] Comment on above: Performed By: #### B MP #### [facility] [address] [address] [address] Silver Harrison Chloride [Moles/Vol] 108 mmol/L Critically high 98-107 [facility] Comment on above: Performed By: #### B MP #### [facility] [address] [place] [address] Dr. Silver Harrison CO2 [Moles/Vol] 28.6 mmol/L Normal 21.0-32.0 [facility] Comment on above: Performed By: #### B MP #### [facility] [address] [place] [address] Dr. Silver Harrison Creatinine [Mass/Vol] 4.05 mg/dL Critically high 0.55-1.02 [facility] Comment on above: Performed By: #### B MP #### [facility] [address] [address] [address] Silver Harrison EGFR-AF MOSOTHO 13 mL/min/1.73m2 Critically low >=60 [facility] Comment on above: Performed By: #### B MP #### [facility] [address] [address] [address] Silver Harrison EGFR-NON AF MOSOTHO 11 mL/min/1.73m2 Critically low >=60 [facility] Comment on above: Performed By: #### B MP #### [facility] [address] [address] [address] Silver Harrison Glucose [Mass/Vol] 74 mg/dL Normal 74-106 [facility] Comment on above: Performed By: #### B MP #### [facility] [address] [address] [address] Silver Harrison Potassium [Moles/Vol] 4.5 mmol/L Normal 3.5-5.1 [facility] Comment on above: Performed By: #### B MP #### [facility] [address] [address] [address] Silver Harrison Sodium [Moles/Vol] 143 mmol/L Normal 136-145 [facility] Comment on above: Performed By: #### B MP #### [facility] [address] [address] [address] Silver Harrison Urea nitrogen [Mass/Vol] 45.0 mg/dL Critically high 7.0-18.0 [facility] Comment on above: Performed By: #### B MP #### [facility] [address] [place] [address] Dr. Silver Harrison Urea nitrogen/Creatinine [Mass ratio] 11.1 mg/mg Normal [facility] Comment on above: Performed By: #### B MP #### [facility] [address] [place] [address] Dr. Silver Harrison CBC AUTO DIFFon 07-01-2022 BASO # 0.1 103/ul Normal 0.0-0.1 [facility] Comment on above: Performed By: #### U SUNITA, MG, RENAL #### [facility] [address] [place] [address] Dr. Silver Harrison Basophils/100 WBC (Bld) 0.5 % Normal 0.2-2.0 [facility] Comment on above: Performed By: #### U SUNITA, MG, RENAL #### [facility] [address] [place] [address] Dr. Silver Harrison EO # 0.2 103/ul Normal 0.0-0.7 [facility] Comment on above: Performed By: #### U SUNITA, MG, RENAL #### [facility] [address] [place] [address] Dr. Silver Harrison Eosinophils/100 WBC (Bld) 2.4 % Normal 0.9-7.0 [facility] Comment on above: Performed By: #### U SUNITA, MG, RENAL #### [facility] [address] [place] [address] Dr. Silver Harrison Erythrocyte distribution width (RBC) [Ratio] 12.7 % Normal 11.0-15.0 [facility] Comment on above: Performed By: #### U SUNITA, MG, RENAL #### [facility] [address] [place] [address] Dr. Silver Harrison Hematocrit (Bld) [Volume fraction] 27.9 % Critically low 36.0-48.0 [facility] Comment on above: Performed By: #### U SUNITA, MG, RENAL #### [facility] [address] [place] [address] Dr. Silver Harrison Hemoglobin (Bld) [Mass/Vol] 8.6 g/dL Critically low 12.0-16.0 [facility] Comment on above: Performed By: #### U SUNITA, MG, RENAL #### [facility] [address] [place] [address] Dr. Silver Harrison IG # 0.10 10e3/ul Critically high 0.00-0.03 [facility] Comment on above: Performed By: #### U SUNITA, MG, RENAL #### [facility] [address] [place] [address] Dr. Silver Harrison IG % 1.0 % Critically high 0.0-0.5 [facility] Comment on above: Performed By: #### U SUNITA, MG, RENAL #### [facility] [address] [place] [address] Dr. Silver Harrison LYMPH # 1.9 103/ul Normal 1.2-3.8 [facility] Comment on above: Performed By: #### U SUNITA, MG, RENAL #### [facility] [address] [place] [address] Dr. Silver Harrison Lymphocytes/100 WBC (Bld) 19.1 % Critically low 20.5-60.0 [facility] Comment on above: Performed By: #### U SUNITA, MG, RENAL #### [facility] [address] [address] [address] Silver Harrison MANUAL DIFF REQ NO Normal [facility] Comment on above: Performed By: #### U SUNITA, MG, RENAL #### [facility] [address] [place] [address] Dr. Silver Harrison MCH (RBC) [Entitic mass] 29.5 pg Normal 26.7-34.0 [facility] Comment on above: Performed By: #### U SUNITA, MG, RENAL #### [facility] [address] [place] [address] Dr. Silver Harrison MCHC (RBC) [Mass/Vol] 30.8 g/dL Normal 29.9-35.2 [facility] Comment on above: Performed By: #### U SUNITA, MG, RENAL #### [facility] [address] [place] [address] Dr. Silver Harrison MCV (RBC) [Entitic vol] 95.5 fL Normal 81.0-99.0 [facility] Comment on above: Performed By: #### U SUNITA, MG, RENAL #### [facility] [address] [place] [address] Dr. Silver Harrison MONO # 0.6 103/ul Normal 0.3-0.8 [facility] Comment on above: Performed By: #### U SUNITA, MG, RENAL #### [facility] [address] [place] [address] Dr. Silver Harrison Monocytes/100 WBC (Bld) 5.4 % Normal 1.7-12.0 [facility] Comment on above: Performed By: #### U SUNITA, MG, RENAL #### [facility] [address] [place] [address] Dr. Silver Harrison NEUT # 7.3 103/ul Critically high 1.4-6.5 [facility] Comment on above: Performed By: #### U SUNITA, MG, RENAL #### [facility] [address] [place] [address] Dr. Silver Harrison Neutrophils/100 WBC (Bld) 71.6 % Normal 43.0-75.0 [facility] Comment on above: Performed By: #### U SUNITA, MG, RENAL #### [facility] [address] [address] [address] Silver Harrison Platelet mean volume (Bld) [Entitic vol] 10.0 fL Normal 9.5-13.5 [facility] Comment on above: Performed By: #### U SUNITA, MG, RENAL #### [facility] [address] [place] [address] Dr. Silver Harrison PLT 208 103/ul Normal 150-450 [facility] Comment on above: Performed By: #### U SUNITA, MG, RENAL #### [facility] [address] [address] [address] Silver Harrison RBC 2.92 106/ul Critically low 4.20-5.40 [facility] Comment on above: Performed By: #### U SUNITA, MG, RENAL #### [facility] [address] [place] [address] Dr. Silver Harrison WBC 10.2 103/ul Normal 4.0-11.0 [facility] Comment on above: Performed By: #### U SUNITA, MG, RENAL #### [facility] [address] [place] [address] Dr. Silver Harrison PROF CHEM 8 (BAS METB)on Anion gap [Moles/Vol] 12.7 mmol/L Normal [facility] Comment on above: Performed By: #### B MP #### [facility] [address] [place] [address] Dr. Silver Harrison Calcium [Mass/Vol] 8.5 mg/dL Normal 8.5-10.1 [facility] Comment on above: Performed By: #### B MP #### [facility] [address] [place] [address] Dr. Silver Harrison Chloride [Moles/Vol] 108 mmol/L Critically high 98-107 [facility] Comment on above: Performed By: #### B MP #### [facility] [address] [place] [address] Dr. Silver Harrison CO2 [Moles/Vol] 26.9 mmol/L Normal 21.0-32.0 [facility] Comment on above: Performed By: #### B MP #### [facility] [address] [address] [address] Silver Harrison Creatinine [Mass/Vol] 4.31 mg/dL Critically high 0.55-1.02 [facility] Comment on above: Performed By: #### B MP #### [facility] [address] [address] [address] Silver Harrison EGFR-AF MOSOTHO 12 mL/min/1.73m2 Critically low >=60 [facility] Comment on above: Performed By: #### B MP #### [facility] [address] [address] [address] Silver Harrison EGFR-NON AF MOSOTHO 10 mL/min/1.73m2 Critically low >=60 [facility] Comment on above: Performed By: #### B MP #### [facility] [address] [address] [address] Silver Harrison Glucose [Mass/Vol] 141 mg/dL Critically high 74-106 [facility] Comment on above: Performed By: #### B MP #### [facility] [address] [address] [address] Silver Harrison Potassium [Moles/Vol] 4.6 mmol/L Normal 3.5-5.1 [facility] Comment on above: Performed By: #### B MP #### [facility] [address] [address] [address] Silver Harrison Sodium [Moles/Vol] 143 mmol/L Normal 136-145 [facility] Comment on above: Performed By: #### B MP #### [facility] [address] [address] [address] Silver Harrison Urea nitrogen [Mass/Vol] 47.0 mg/dL Critically high 7.0-18.0 [facility] Comment on above: Performed By: #### B MP #### [facility] [address] [address] [address] Silver Harrison Urea nitrogen/Creatinine [Mass ratio] 10.9 mg/mg Normal [facility] Comment on above: Performed By: #### B MP #### [facility] [address] [place] [address] Dr. Silver Harrison PTH INTACTon 06-25-2022 PTH, Intact 132 pg/mL Critically high 15-65 [facility] Comment on above: Performed By: #### U SUNITA, MG, RENAL #### [facility] [address] [place] [address] Dr. Silver Harrison CBC AUTO DIFFon 06-24-2022 BASO # 0.0 103/ul Normal 0.0-0.1 [facility] Comment on above: Performed By: #### B MP #### [facility] [address] [place] [address] Dr. Silver Harrison Basophils/100 WBC (Bld) 0.5 % Normal 0.2-2.0 [facility] Comment on above: Performed By: #### B MP #### [facility] [address] [place] [address] Dr. Silver Harrison EO # 0.2 103/ul Normal 0.0-0.7 [facility] Comment on above: Performed By: #### B MP #### [facility] [address] [place] [address] Dr. Silver Harrison Eosinophils/100 WBC (Bld) 2.8 % Normal 0.9-7.0 [facility] Comment on above: Performed By: #### B MP #### [facility] [address] [place] [address] Dr. Silver Harrison Erythrocyte distribution width (RBC) [Ratio] 12.5 % Normal 11.0-15.0 [facility] Comment on above: Performed By: #### B MP #### [facility] [address] [place] [address] Dr. Silver Harrison Hematocrit (Bld) [Volume fraction] 26.0 % Critically low 36.0-48.0 [facility] Comment on above: Performed By: #### B MP #### [facility] [address] [place] [address] Dr. Silver Harrison Hemoglobin (Bld) [Mass/Vol] 8.1 g/dL Critically low 12.0-16.0 [facility] Comment on above: Performed By: #### B MP #### [facility] [address] [place] [address] Dr. Silver Harrison IG # 0.08 10e3/ul Critically high 0.00-0.03 [facility] Comment on above: Performed By: #### B MP #### [facility] [address] [place] [address] Dr. Silver Harrison IG % 0.9 % Critically high 0.0-0.5 [facility] Comment on above: Performed By: #### B MP #### [facility] [address] [place] [address] Dr. Silver Harrison LYMPH # 1.6 103/ul Normal 1.2-3.8 [facility] Comment on above: Performed By: #### B MP #### [facility] [address] [place] [address] Dr. Silver Harrison Lymphocytes/100 WBC (Bld) 19.4 % Critically low 20.5-60.0 [facility] Comment on above: Performed By: #### B MP #### [facility] [address] [place] [address] Dr. Silver Harrison MANUAL DIFF REQ NO Normal [facility] Comment on above: Performed By: #### B MP #### [facility] [address] [place] [address] Dr. Silver Harrison MCH (RBC) [Entitic mass] 30.0 pg Normal 26.7-34.0 [facility] Comment on above: Performed By: #### B MP #### [facility] [address] [place] [address] Dr. Silver Harrison MCHC (RBC) [Mass/Vol] 31.2 g/dL Normal 29.9-35.2 [facility] Comment on above: Performed By: #### B MP #### [facility] [address] [place] [address] Dr. Silver Harrison MCV (RBC) [Entitic vol] 96.3 fL Normal 81.0-99.0 [facility] Comment on above: Performed By: #### B MP #### [facility] [address] [place] [address] Dr. Silver Harrison MONO # 0.6 103/ul Normal 0.3-0.8 [facility] Comment on above: Performed By: #### B MP #### [facility] [address] [place] [address] Dr. Silver Harrison Monocytes/100 WBC (Bld) 6.6 % Normal 1.7-12.0 [facility] Comment on above: Performed By: #### B MP #### [facility] [address] [place] [address] Dr. Silver Harrison NEUT # 5.9 103/ul Normal 1.4-6.5 [facility] Comment on above: Performed By: #### B MP #### [facility] [address] [place] [address] Dr. Silver Harrison Neutrophils/100 WBC (Bld) 69.8 % Normal 43.0-75.0 [facility] Comment on above: Performed By: #### B MP #### [facility] [address] [place] [address] Dr. Silver Harrison Platelet mean volume (Bld) [Entitic vol] 10.0 fL Normal 9.5-13.5 [facility] Comment on above: Performed By: #### B MP #### [facility] [address] [place] [address] Dr. Silver Harrison PLT 180 103/ul Normal 150-450 [facility] Comment on above: Performed By: #### B MP #### [facility] [address] [place] [address] Dr. Silver Harrison RBC 2.70 106/ul Critically low 4.20-5.40 [facility] Comment on above: Performed By: #### B MP #### [facility] [address] [place] [address] Dr. Silver Harrison WBC 8.4 103/ul Normal 4.0-11.0 [facility] Comment on above: Performed By: #### B MP #### [facility] [address] [place] [address] Dr. Silver Harrison FERRITINon 06-24-2022 Ferritin [Mass/Vol] 535.0 ng/mL Critically high 8.0-252.0 [facility] Comment on above: Performed By: #### F ETIBC, FERR, VITAD #### [facility] [address] [place] [address] Dr. Silver Harrison IRON AND TIBCon 06-24-2022 % SATURATION 16.9 % Normal [facility] Comment on above: Performed By: #### F ETIBC, FERR, VITAD #### [facility] [address] [place] [address] Dr. Silver Harrison Iron [Mass/Vol] 31.0 ug/dL Critically low 50.0-170.0 [facility] Comment on above: Performed By: #### F ETIBC, FERR, VITAD #### [facility] [address] [place] [address] Dr. Silver Harrison TIBC DIRECT 183.0 ug/dL Critically low 250.0-450. 0 [facility] Comment on above: Performed By: #### F ETIBC, FERR, VITAD #### [facility] [address] [place] [address] Dr. Silver Harrison MAGNESIUMon 06-24-2022 Magnesium [Mass/Vol] 2.3 mg/dL Normal 1.8-2.4 [facility] Comment on above: Performed By: #### U SUNITA, MG, RENAL #### [facility] [address] [place] [address] Dr. Silver Harrison RENAL FUNCTION PANELon 06-24 Albumin [Mass/Vol] 2.5 g/dL Critically low 3.4-5.0 [facility] Comment on above: Performed By: #### U SUNITA, MG, RENAL #### [facility] [address] [place] [address] Dr. Silver Harrison Calcium [Mass/Vol] 8.4 mg/dL Critically low 8.5-10.1 [facility] Comment on above: Performed By: #### U SUNITA, MG, RENAL #### [facility] [address] [place] [address] Dr. Silver Harrison Chloride [Moles/Vol] 107 mmol/L Normal 98-107 [facility] Comment on above: Performed By: #### U SUNITA, MG, RENAL #### [facility] [address] [place] [address] Dr. Silver Harrison CO2 [Moles/Vol] 24.2 mmol/L Normal 21.0-32.0 [facility] Comment on above: Performed By: #### U SUNITA, MG, RENAL #### [facility] [address] [place] [address] Dr. Silver Harrison Creatinine [Mass/Vol] 4.38 mg/dL Critically high 0.55-1.02 [facility] Comment on above: Performed By: #### U SUNITA, MG, RENAL #### [facility] [address] [place] [address] Dr. Silver Harrison EGFR-AF MOSOTHO 12 mL/min/1.73m2 Critically low >=60 [facility] Comment on above: Performed By: #### U SUNITA, MG, RENAL #### [facility] [address] [place] [address] Dr. Silver Harrison EGFR-NON AF MOSOTHO 10 mL/min/1.73m2 Critically low >=60 [facility] Comment on above: Performed By: #### U SUNITA, MG, RENAL #### [facility] [address] [place] [address] Dr. Silver Harrison Glucose [Mass/Vol] 55 mg/dL Critically low 74-106 [facility] Comment on above: Performed By: #### U SUNITA, MG, RENAL #### [facility] [address] [place] [address] Dr. Silver Harrison Phosphate [Mass/Vol] 6.0 mg/dL Critically high 2.6-4.7 [facility] Comment on above: Performed By: #### U SUNITA, MG, RENAL #### [facility] [address] [place] [address] Dr. Silver Harrison Potassium [Moles/Vol] 4.3 mmol/L Normal 3.5-5.1 [facility] Comment on above: Performed By: #### U SUNITA, MG, RENAL #### [facility] [address] [place] [address] Dr. Silver Harrison Sodium [Moles/Vol] 142 mmol/L Normal 136-145 [facility] Comment on above: Performed By: #### U SUNITA, MG, RENAL #### [facility] [address] [place] [address] Dr. Silver Harrison Urea nitrogen [Mass/Vol] 55.0 mg/dL Critically high 7.0-18.0 [facility] Comment on above: Performed By: #### U SUNITA, MG, RENAL #### [facility] [address] [place] [address] Dr. Silver Harrison URIC ACID SERUMon 06-24-2022 Urate [Mass/Vol] 7.7 mg/dL Critically high 2.6-6.0 [facility] Comment on above: Performed By: #### U SUNITA, MG, RENAL #### [facility] [address] [place] [address] Dr. Silver Harrison VITAMIN D 25 OHon 06-24-2022 VIT D 25-OH 29.0 ng/mL Normal [facility] Comment on above: Performed By: #### F ETIBC FERR, VITAD #### [facility] [address] [place] [address] Dr. Silver Harrison VIT D RANGES SEE BELOW Normal [facility] Comment on above: Result Comment: <20 ng/mL Vit D deficient 20 - <30 ng/mL Vit D insufficient 30 - 100 ng/mL Vit D sufficient >100 ng/mL Potential Toxicity Performed By: #### F ETIBC, FERR, VITAD #### [facility] [address] [place] [address] Dr. Silver Harrison BASIC MET PANEL W/GFRon 05-28 Calcium [Mass/Vol] 8.0 mg/dL Low (8.6 - 10.6) [facility] Comment on above: Order Comment: STAT FACILITY: [facility] [id number] Performed By: #### C HEM-B, T20 #### [facility] [address] [place], [address] Chloride [Moles/Vol] 112 mmol/L High (98 - 107) [facility] Comment on above: Order Comment: STAT FACILITY: [facility] [facility] [id number] Performed By: #### C HEM-B, T20 #### [facility] [address] [place], [address] CO2 [Moles/Vol] 19 mmol/L Low (22 - 30) [facility] Comment on above: Order Comment: STAT FACILITY: [facility] [id number] Performed By: #### C HEM-B, T20 #### [facility] [facility] [address] [place], [address] Creatinine [Mass/Vol] 4.98 mg/dL High (0.52 - 1.04) [facility] Comment on above: Order Comment: STAT FACILITY: [facility] [facility] [id number] Performed By: #### C HEM-B, T20 #### [facility] [facility] [address] [place], [address] GFR- AMER 10.3 ML/M1.7 Low (60.0 - 140.1) [facility] Comment on above: Order Comment: STAT FACILITY: [facility] [facility] [id number] Performed By: #### C HEM-B, T20 #### [facility] [facility] [address] [place], [address] GFR-NON AFRIC-AMER 8.5 ML/M1.7 Low (60.0 - 115.8) [facility] Comment on above: Order Comment: STAT FACILITY: [facility] [facility] [id number] Performed By: #### C HEM-B, T20 #### [facility] [address] [place], [address] Glucose [Mass/Vol] 104 mg/dL Normal (74 - 106) [facility] Comment on above: Order Comment: STAT FACILITY: [facility] [id number] Performed By: #### C HEM-B, T20 #### [place] [facility] [address] [place], [address] Potassium [Moles/Vol] 6.1 mmol/L Critically high (3. 5 - 5.1) [facility] Comment on above: Order Comment: STAT FACILITY: [facility] [id number] Result Comment: CRIT ICAL RESULT REPEATED AND REPORTED TO: LISA MARSHALL @ 11:50 AM 06/15/2022 RP Performed By: #### C HEM-B, T20 #### [facility] [address] [place], [address] Sodium [Moles/Vol] 142 mmol/L Normal (137 - 145) [facility] Comment on above: Order Comment: STAT FACILITY: [facility] [id number] Performed By: #### C HEM-B, T20 #### [place] [facility] [address] [place], [address] Urea nitrogen [Mass/Vol] 59 mg/dL High (7 - 17) [facility] Comment on above: Order Comment: STAT FACILITY: [facility] [id number] Performed By: #### Renea HEM-B, T20 #### [facility] [facility] [address] [place], [address] CBC NO DIFFon 06-15-2022 Hematocrit (Bld) [Volume fraction] 28.5 % Low (37.0 - 47.0) [facility] Comment on above: Performed By: #### C HEM-B, T20 #### [facility] [address] [place], [address] Hemoglobin (Bld) [Mass/Vol] 8.8 g/dL Low (12.0 - 16.0) [facility] Comment on above: Performed By: #### C HEM-B, T20 #### [facility] [address] [place], [address] MCH (RBC) [Entitic mass] 30.0 pg Normal (27.0 - 33.0) [facility] Comment on above: Performed By: #### C HEM-B, T20 #### [facility] [address] [place], [address] MCHC (RBC) [Mass/Vol] 30.9 g/dL Normal (30.0 - 37.0) [facility] Comment on above: Performed By: #### C HEM-B, T20 #### [facility] [address] [place], [address] MCV (RBC) [Entitic vol] 97.3 fL Normal (81.0 - 99.0) [facility] Comment on above: Performed By: #### C HEM-B, T20 #### [facility] [address] [place], [address] PLT 151 x10^3ul Normal (130 - 400) [facility] Comment on above: Performed By: #### C HEM-B, T20 #### [facility] [address] [place], [address] RBC 2.93 x10^6ul Low (4.20 - 5.40) [facility] Comment on above: Performed By: #### C HEM-B, T20 #### [place] [facility] [address] [place], [address] RDW-SD 44.6 fl Normal (37.0 - 49.0) [facility] [facility] Comment on above: Performed By: #### C HEM-B, T20 #### [facility] [address] [place], [address] WBC 11.09 x10^3ul High (3.80 - 10.60) [facility] Comment on above: Performed By: #### C HEM-B, T20 #### [facility] [address] [facility], [address] MG MAMM SCREEN MOIRA W CADon 0 01-19-2022 MG MAMM SCREEN MOIRA W CAD Patient: ESSENCE CASTORENA Exam Date: 01/19/2022 : 1950 Gender:F Ordering : DR CHRISTOPHER MANN M.D. Admission #: [id number] Family : Order #: [id number] CLICK HERE TO VIEW EXAM RADIOLOGY REPORT [...] with pancreatic cancer at age 67. LOCATION: [facility] BREAST COMPOSITION: Extremely dense, which lowers [...] Leon MD on 01/19/2022 at 12:12 Normal [facility] Coding Summary.on 01-06-2019 Coding Summary. CODING DATE: 019 [facility] STATUS: Home (Routine DC) PAYOR: Medicare APC DESCRIPTION 5733 Level 3 Minor Procedures ADMIT DX: REASON FOR VISIT DX: H61.23 Impacted cerumen, bilateral FINAL DX: PRINCIPAL: H61.23 Impacted cerumen, bilateral SECONDARY: H90.0 Conductive hearing loss, bilateral I25.10 Atherosclerotic heart disease of [place] coronary artery without angina pectoris I12.9 Hypertensive chronic kidney disease with stage 1 through stage 4 chronic kidney disease, or unspecified chronic kidney disease E11.22 Type 2 diabetes mellitus with diabetic chronic kidney disease N18.3 Chronic kidney disease, stage 3 (moderate) F41.9 Anxiety disorder, unspecified Z79.4 [facility] (current) use of insulin PYMT PROC APC [...] Gomez Date Saved: 01/06/2019 08:21 am Normal [facility] Main OR Intraoperative Recor don 01-05-2019 Main OR Intraoperative Record IntraOp Document Type FT Summary Primary Physician: Emanuel Hartley DO Finalized Date/Time: 01/05/19 12:31:16 Pt. Name: ESSENCE CASTORENA Aleta Spence/Sex: 1950 Female Med Rec #: [id number] Physician: Emanuel Hartley DO Financial #: [id number] Pt. Type: A Room/Bed: [place] [address] Admit/Disch: 01/04/19 13:05:00 - 01/04/19 14:15:00 Institution: [...] Carleen Gill Role Performed Surgeon - Primary Policy Loan Calculator - Primary Scrub - Primary Time In [...] taken back to asu for discharge. 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 Normal [facility] Inpatient Patient Summaryon 01-04-2019 Inpatient Patient Summary [facility] Clinical Discharge Instructions PERSON INFORMATION Name: ESSENCE CASTORENA PHYSICIANS Admitting Physician: Emanuel Hartley DO Attending Physician: Emanuel Hartley DO PCP: ALDA MITCHELL DO Discharge Diagnosis: Cerumen debris on tympanic membrane; Conductive hearing loss of both ears Comment: PATIENT EDUCATION INFORMATION Instructions: Medication Leaflets: Follow up: With: Address: When: Emanuel Hartley [address] [place] [address] [phone] Business (1) MEDICATION LIST Comment: Derian [facility] Operative Reporton 9 Operative Report Date of [...] brought to the Operating Room Suite at [facility], at which time she was placed [...] and satisfactory condition. Danilo Vera Dictated: 01/04/2019 #[id number] Typed: 01/04/2019 #[id number] cc: Emanuel Hartley D.O. [facility] Comment on above: Result Comment: Elec tronically [...] of cerumen impaction Anesthesia type: local. Normal [facility] Comment on above: Result Comment: Elec tronically Signed By: Emanuel Hartley DO\.br\Date and Time Signed: 01/04/19 14:09 EDT Patient Education - Texton 0 01-04-2019 Patient Education - Text [facility] Vital Signs Date Time Vital Sign Value Performing Clinician Facility 03-23-2023 14:06-0500 Diastolic blood pressure 80 mm[Hg] Danii Rodriguez MD Work Phone: [facility] 03-23-2023 14:06-0500 Heart rate 76 /min Danii Rodriguez MD Work Phone: [facility] 03-23-2023 14:06-0500 Systolic blood pressure 132 mm[Hg] Danii Rodriguez MD Work Phone: [facility] 02-05-2023 09:31-0400 Body temperature 98.2 [degF] MD Christopher Mann Work Phone: [facility] 02-05-2023 09:31-0400 Diastolic blood pressure 70 mm[Hg] MD Christopher Mann Work Phone: [facility] 02-05-2023 09:31-0400 Heart rate 72 /min MD Christopher Mann Work Phone: [facility] 02-05-2023 09:31-0400 Respiratory rate 18 /min MD Christopher Mann Work Phone: [facility] 02-05-2023 09:31-0400 SaO2% (BldA) [Mass fraction] 97 % MD Christopher Mann Work Phone: [facility] 02-05-2023 09:31-0400 Systolic blood pressure 130 mm[Hg] MD Christopher Mann Work Phone: [facility] 11-11-2022 16:12-0400 Diastolic blood pressure 68 mm[Hg] Christopher Sandhu [place]en Work Phone: [facility] DO Work Phone: 11-11-2022 16:12-0400 Heart rate 84 /min Christopher Sandhu Johnathan Work Phone: [facility] DO Work Phone: 11-11-2022 16:12-0400 Systolic blood pressure 122 mm[Hg] Christopher Sandhu Johnathan Work Phone: [facility] DO Work Phone: 07-31-2022 19:37-0400 Diastolic blood pressure 65 mm[Hg] MD Christopher Mann Work Phone: [facility] 07-31-2022 19:37-0400 Heart rate 78 /min MD Christopher Mann Work Phone: [facility] 07-31-2022 19:37-0400 Respiratory rate 20 /min MD Christopher Mann Work Phone: [facility] 07-31-2022 19:37-0400 SaO2% (BldA) [Mass fraction] 98 % MD Christopher Mann Work Phone: [facility] 07-31-2022 19:37-0400 Systolic blood pressure 142 mm[Hg] MD Christopher Mann Work Phone: [facility] 07-31-2022 15:05-0400 Body height 162.56 cm MD Christopher Mann Work Phone: [facility] 07-31-2022 15:05-0400 Body temperature 97.6 [degF] MD Christopher Mann Work Phone: [facility] 07-31-2022 15:05-0400 Body weight 106.14 kg MD Christopher Mann Work Phone: [facility] 07-31-2022 10:41-0400 Body temperature 98.4 [degF] MD Christopher Mann Work Phone: [facility] 07-31-2022 10:41-0400 Body weight 109 kg MD Christopher Mann Work Phone: [facility] 07-31-2022 10:41-0400 Diastolic blood pressure 68 mm[Hg] MD Christopher Mann Work Phone: [facility] 07-31-2022 10:41-0400 Heart rate 74 /min MD Christopher Mann Work Phone: [facility] 07-31-2022 10:41-0400 Respiratory rate 20 /min MD Christopher Mann Work Phone: [facility] 07-31-2022 10:41-0400 SaO2% (BldA) [Mass fraction] 97 % MD Christopher Mann Work Phone: [facility] 07-31-2022 10:41-0400 Systolic blood pressure 136 mm[Hg] MD Christopher Mann Work Phone: [facility] 07-14-2022 17:20-0400 Body height 160.02 cm Essie Merlyn Other [email or web address] Other 07-14-2022 17:20-0400 Diastolic blood pressure 70 mm[Hg] Essie Merlyn Other [email or web address] Other 07-14-2022 17:20-0400 Respiratory rate 20 /min Essie Merlyn Other [email or web address] Other 07-14-2022 17:20-0400 SaO2% (BldA) [Mass fraction] 96 % Essie Merlyn Other [facility] [employer] Other 07-14-2022 17:20-0400 Systolic blood pressure 153 mm[Hg] Essie Merlyn Other [facility] [employer] Other 07-01-2022 09:42-0500 Body temperature 98.1 [degF] MD Christopher Mann Work Phone: [facility] 07-01-2022 09:42-0500 Diastolic blood pressure 71 mm[Hg] MD Christopher Mann Work Phone: [facility] 07-01-2022 09:42-0500 Heart rate 68 /min MD Christopher Mann Work Phone: [facility] 07-01-2022 09:42-0500 Respiratory rate 18 /min MD Christopher Mann Work Phone: [facility] 07-01-2022 09:42-0500 SaO2% (BldA) [Mass fraction] 96 % MD Christopher Mann Work Phone: [facility] 07-01-2022 09:42-0500 Systolic blood pressure 134 mm[Hg] MD Christopher Mann Work Phone: [facility] 07-01-2022 09:27-0500 Body height 162.56 cm MD Christopher Mann Work Phone: [facility] Encounters Encounter Date Encounter Type Care Provider Facility Start: 03-23-2023 End: 03-23-2023 ambulatory [facility] Ambulatory Start: 03-23-2023 End: 03-23-2023 Office outpatient visit 15 minutes Danii Rodriguez MD Work Phone: [facility] Comment on above: Atherosclerosis of n ative coronary artery of [place] heart without angina pectoris (Primary Dx); Chest discomfort; Essential hypertension, benign; Mixed hyperlipidemia; Dialysis patient (CMS/HCC); Cerebrovascular accident (CVA), unspecified mechanism (CMS/HCC) Start: 02-05-2023 ambulatory Essence Alicea Facility:[facility] Start: 02-05-2023 End: 02-05-2023 ambulatory MD Christopher Mann Work Phone: [facility] Work Phone: Start: 02-05-2023 End: 02-05-2023 Registered Recurring MD Christopher Mann Work Phone: [facility] Work Phone: Start: 11-11-2022 Office outpatient vi sit 25 minutes Christopher Mann Work Phone: [facility] DO Work Phone: Start: 11-11-[address] Danii Rodriguez Facility: Start: 09-07-2022 End: 09-07-[address] CHRISTOPHER MANN Facility:[facility]1 Start: 08-04-2022 ambulatory Danii Rodriguez Faci lity:[id number] Start: 08-03-2022 ambulatory Danii Rodriguez Faci lity:[id number] Start: 08-02-2022 End: 08-05-2022 Evaluation and management of inpatient Christopher Mann Facility:[facility] Start: 08-02-2022 ambulatory Danii Rodriguez Faci lity:[id number] Start: 08-01-[address] Danii Rodriguez Facility:[id number] Start: 08-01-2022 ambulatory Danii Rodriguez Faci lity:[id number] Start: 07-31-2022 Evaluation and manag ement of inpatient MD Christopher Mann Work Phone: [facility] [place] [facility] Work Phone: Start: 07-31-2022 Registered Recurring MD Christopher Mann [facility]: [facility] Work Phone: Start: 07-31-2022 End: 07-31-[address] CHRISTOPHER MANN Facility:[facility]1 Start: 07-29-2022 End: 07-29-[address] CHRISTOPHER MANN Facility:[facility] Start: 07-24-2022 End: 07-24-[address] CHRISTOPHER MANN Facility:[facility] Start: 07-21-2022 End: 07-21-2022 ambulatory Essie Merlyn Other [email or web address] Other Start: 07-21-2022 Telephone encounter Essie Merlyn [facility] Start: 07-20-2022 Telephone encounter Essie Merlyn [facility] Start: 07-20-2022 End: 07-20-2022 ambulatory ESSIE MERLYN [email or web address] Other Start: 07-17-2022 End: 07-17-[address] CHRISTOPHER MANN Facility:[facility]1 Start: 07-14-2022 End: 07-14-2022 ambulatory Essie Merlyn Other [email or web address] Other Start: 07-14-2022 Office outpatient ne w 45 minutes Essie Merlyn [facility] Start: 07-03-2022 End: 07-03-[address] ARTURO GUO . Facility:[facility]1 Start: 07-01-2022 End: 07-01-2022 ambulatory MD Christopher Mann Work Phone: [facility] Work Phone: Start: 07-01-2022 End: 07-01-2022 Registered Recurring MD Christopher Mann Work [facility]: [facility] Work Phone: Start: 06-24-2022 End: [...] Phone: Operative procedure on knee Rugarlet Sandhu [place] Work Phone: Total colonoscopy Christopher Sandhu Al da Work Phone: Plan of Treatment Date Care Activity Detail Author Start: 03-28-2024 End: 03-28-2024 Patient encounter procedure 03/28/2024 2:00 PM EST Office Visit [facility] [address] [facility] [address] [place] [address] Danii Rodriguez MD [address] [facility] [address] [place] [address] [facility] Start: 01-30-2024 Screening for malignant neoplasm of breast Mammogram [facility] Start: 03-23-2023 FUV, Provider: Danii Rodriguez, Status: Pen, Time: 2:20 PM FUV, Provider: Danii Rodriguez, Status: Pen, Time: 2:[address] [facility] 250 DO Work Phone: Start: 12-25-2022 Influenza vaccination Influenza Vaccine (#1) [facility] Start: 07-31-2022 Bacteria identified in Urine by Culture [facility] Start: 11-19-1999 Zoster Vaccines (1 of 2) Zoster Vaccines (1 of 2) [facility] Start: 11-19-1971 DTaP/Tdap/Td Vaccines (1 - Tdap) DTaP/Tdap/Td Vaccines (1 - Tdap) [facility] Start: 11-19-1967 Diabetes mellitus screening Diabetes Screening [facility] Start: 11-19-1967 Hepatitis C screening Hepatitis C Screening [facility] Start: 11-19-1955 Pneumococcal Vaccine: 65+ Years (1 - PCV) Pneumococcal Vaccine: 65+ Years (1 - PCV) [facility] Start: 05-21-1950 COVID-19 Vaccine (#1) COVID-19 Vaccine (#1) [facility] Start: 1950 Lipid panel Lipid Panel [facility] Start: 1950 Screening for malignant neoplasm of colon [facility] Start: 1950 Yearly Adult Physical Yearly Adult Physical [facility] [place] Immunizations Immunization Date Immunization Notes Care Provider Fa cility 05-03-2020 COVID-19 Manjinder Gonzalez (Pfizer) MD Christopher Mann Work Phone: [facility] 04-15-2020 COVID-19 Manjinder Gonzalez (Pfizer) MD Christopher Mann Work Phone: [facility] Payers Date Payer Category Payer Private Health Insurance [id number] 2022 Self-pay [id number] 2017 Medicaid MEDICAID MEDICAI D [id number] 2017-Present [address] [place] [address] [id number] 1959 Medicaid [id number] 1959 Medicare [id number] 1950 Unknown [id number] ..[id number] 56 1950 Unknown [id number] 2.16.840.1.612821.3.579.2.3 56 1950 Unknown [id number] 2.16.840.1.743384.3.579.2.3 56 1949 Unknown [id number] 2.16.840.1.252867.3.579.2.3 56 1949 Unknown [id number] 2.16.840.1.325385.3.579.2.3 56 1949 Unknown [id number] 2.16.840.1.733627.3.579.2.5 93 1949 Unknown [id number] 2.16.840.1.682857.3.579.2.5 93 1949 Unknown [id number] 2.16.840.1.019938.3.579.2.5 93 1949 Unknown [id number] 2.16.840.1.716075.3.579.2.5 93 1949 Unknown [id number] 2.16.840.1.822593.3.579.2.5 93 1949 Unknown [id number] 2.16.840.1.717925.3.579.2.5 93 1949 Unknown [id number] 2.16.840.1.775431.3.579.2.5 93 1949 Unknown [id number] 2.16.840.1.580627.3.579.2.5 93 1949 Unknown [id number] 2.16.840.1.163338.3.579.2.5 93 1949 Unknown [id number] 2.16.840.1.635329.3.579.2.5 93 1949 Unknown [id number] 2.16.840.1.809733.3.579.2.3 56 1949 Unknown [id number] 2.16.840.1.430629.3.579.2.3 56 1950 Unknown [id number] 2.16.840.1.978944.3.579.2.1 244 Unknown O [id number] Unknown Unknown [id number] 2.16.840.1.356783.3.579.2.5 31 Unknown [id number] 2.16.840.1.168790.3.579.2.5 31 Social History Date Type Detail Facility Start: 07-01-2022 End: 03-23-2023 Tobacco smoking status NHIS Ex-smoker (finding) [facility] Start: 1950 Sex Assigned At Female [facility] Start: 03-23-2023 Sex Assigned At [facility] [employer] Other Start: 03-23-2023 Consumes alcohol occasionally Consumes alcohol occasionally [facility] DO Work Phone: History of tobacco use Current smoker [facility] Work Phone: History of tobacco use Cigarette Smoker [facility] Work Phone: Start: 03-23-2023 Tobacco use and exposure Smokeless tobacco non-user [facility] Work Phone: Start: 03-23-2023 Alcohol intake Ex-drinker (finding) [facility] Work Phone: Start: 03-19-2023 Alcohol Comment occasional [facility] Work Phone: Start: 1950 Sex Assigned At Not on file [facility] Work Phone: Start: 03-13-2023 End: 03-23-2023 Exposure to SARS-CoV-2 (event) Not sure [facility] Medical Equipment Procedure Code Equipment Code Equipment Origin al Text Equipment Identifier Dates Phacoemulsification of cataract with intraocular lens implantation Posterior-chamber intraocular lens, pseudophakic [id number] FDA Start: 04-10-2021 Phacoemulsification of cataract with intraocular lens implantation Posterior-chamber intraocular lens, pseudophakic [id number]) [id number] [facility] Start: 05-22-2021 Clinical Notes 07-01-2022 to 03-23-2023 Danii Rodriguez MD - 03/23/2023 2:20 PM ESTPatient Instructions Note Date & Type Note Facility 03-23-2023 History of Present illness Narrative Subjective Essence Castorena is a 72 y.o. female Chief Complaint Follow-up HPI Patient is here for follow-up continue management for history of coronary artery disease with remote PCI in [place], hypertension, hyperlipidemia. Patient is a resident of a local [facility]. She had dense left-sided hemiplegia. She denies any chest pain but reports some mild shortness of breath since the last time I saw her. She has limited exercise tolerance. She has been stable cardiac cifuentes. Assessment 1. Coronary artery disease prior intervention in [place] detail is lacking. Recent evaluation of atypical chest pain. Stress test and echocardiogram appears to be reassuring 2. Chronic kidney disease on hemodialysis 3. Hypertension controlled 4. Hyperlipidemia on treatment 5. Diabetes mellitus 6. History of stroke with left-sided hemiplegia almost wheelchair-bound 7. [facility] resident 8. Intermittent episode of hemodialysis associated [...] times a day., Disp: , Rfl: HYDROcodone-acetaminophen ([place]) 5-325 mg tablet, Take 1 tablet by [...] Disp: , Rfl: Assessment/Plan 1. Atherosclerosis of [place] coronary artery of [place] heart without angina pectoris Follow Up In Cardiology 2. Chest discomfort Follow Up In Cardiology 3. Essential hypertension, benign 4. Mixed hyperlipidemia 5. Dialysis patient (CMS/HCC) 6. Cerebrovascular accident (CVA), unspecified mechanism (CMS/HCC) documented in this encounter [facility] Work Phone: 03-23-2023 Instructions Shannan York [...] of your visit. documented in this encounter [facility] Work Phone: 07-31-2022 Progress note Note Date/Time July 31, 2022 11:02am [facility] at [address] [address] Hem/Onc Follow Up Note - OP Signed Patient: Amparo Castorena MR#: [id number] : 1950 Acct:[id number] Age/Sex: 71 / F Type: REG RCR Copies to: MD Christopher Palafox, MD~ Date of Service: 07/31/2022 Time of Service: 11:00 - Assessment & Plan (1) Anemia in chronic kidney disease (CKD) Plan: Anemia of chronic kidney disease CKD-IV on dialysis. Previously seen at [facility] and transferred care to [facility] as of 07/01/22 now on dialysis, gets epo agents through dialysis. Is awaiting fistula for dialysis, this will be done in [place] Previous anemia work-up completed prior to transfer [...] with a history of CVA, diabetes, PVD, PR x 2, cataracts, hyperlipidemia, HTN, GERD, and anemia of CKD. Surgical history includes hysterectomy, carpal tunnel surgery and bilateral arthroscopic knee surgery. She denies any personal or family history of cancer. She is referred by Dr. Sanchez Jean at [facility] to establish care for her anemia from CKD. She recently started Aranesp weekly and is in the process of getting dialysis fistula placed to start dialysis. Most recent labs reveal hgb 8.1, wbc 13.9, platelets 135,000, anc 10.8. Creatinine 4.9 with GFR 9, calcium 8.0. She is transferring care as she resides at [facility] in [place] and this is muchcloser for her and [...] for coordination of care (as documented) and [id number] counseling of patient and/or family. [facility] - Medical History Medical History: Medical History [...] calcium 500 mg-D3 400 unit-K 15 mcg-folic [id number] tablet 1 tab PO DAILY 03/28/21 [History [...] bisacodyl 10 mg rectal suppository 10 mg [place] DAILY PRN Constipation 07/01/22 [History Confirmed 07/31/22] [...] signed by Tex Kim II, DO> 07/31/22 [address] [facility] Work Phone: 1(153) 331-758003-21-2023 Evaluation note* Encounter Date Diagnosis Assessment Notes [...] the acarbose due to the advanced CKD. [email or web address] Other 03-08-2023 Consult note Author Essence Alicea [facility] July 01, 2022 1:16pm Note Date/Time July 01, 2022 9:47 am [facility] at [address] [address] Hem/Onc Consult Note - OP Signed Patient: Amparo Castorena MR#: [id number] : 1950 Acct:[id number] Age/Sex: 71 / F Type: REG RCR Copies to: MD Christopher Palafox MD~ HPI Date/Time of Service: Date of Service: 07/01/2022 Time of Service: 09:46 Referring Provider/PCP: Referring Provider: Sanchez Jean MD PCP: Christopher Mann MD - History of Present Illness Chief Complaint: Patient is transferring care from [facility] for anemia. Resides at [facility]. Outside labs. HPI: Amparo is a 71-year-old female with a history of CVA, diabetes, PVD, PR x 2, cataracts, hyperlipidemia, HTN, GERD, and anemia of CKD. Surgical history includes hysterectomy, carpal tunnel surgery and bilateral arthroscopic knee surgery. She denies any personal or family history of cancer. She is referred by Dr. Sanchez Jean at [facility] to establish care for her anemia from CKD. She recently started Aranesp weekly and is in the process of getting dialysis fistula placed to start dialysis. Most recent labs reveal hgb 8.1, wbc 13.9, platelets 135,000, anc 10.8. Creatinine 4.9 with GFR 9, calcium 8.0. She is transferring care as she resides at [facility] in [place] and this is muchcloser for her and [...] fevers, chills, sweats, pain or other complaints. [facility] - Medical History Medical History: Medical History [...] Allergy (Verified 07/01/22 09:34) Swelling misoprostol [From [facility]] Allergy (Verified 07/01/22 09:34) Swelling Home Medications acarbose 100 mg tablet 100 mg PO BID dm 03/28/21 [History Confirmed 07/01/22] amlodipine 5 mg tablet (Norvasc) 10 mg PO DAILY 03/28/21 [History Confirmed 07/01/22] atorvastatin 20 mg tablet 20 mg PO QHS 03/28/21 [History Confirmed 07/01/22] calcium 500 mg-D3 400 unit-K 15 mcg-folic [id number] tablet 1 tab PO DAILY 03/28/21 [History [...] bisacodyl 10 mg rectal suppository 10 mg [place] DAILY PRN Constipation 07/01/22 [History Confirmed 07/01/22] [...] will start dialysis soon. Previously seen at [facility] and transferred care to [facility] as of 07/01/22 She is currently on Aranesp weekly, will clarify dose. She gets [facility] at the [facility]. Is awaiting fistula for dialysis, this will be done in [place] Previous anemia work-up completed prior to transfer [...] for coordination of care (as documented) and sqyb-wq-kdex counseling of patient and/or family. Dictated By: Essence Alicea APRN DD/ [id number] Signed By: <Electronically signed by ELLA Alicea> 07/01/22 1316 [facility] Work Phone: Evaluation noteNo assessment information available [facility] Work Phone: [facility] [employer] Other Evaluation note* Diagnosis Onset Date Resolution Status Anemia in chronic kidney disease (CKD) acute Anemia in chronic kidney disease (CKD) acute Atypical chest pain acute UTI (urinary tract infection) acute [facility] Work Phone: Evaluation note* Diagnosis Onset Date Resolution Status Anemia in chronic kidney disease (CKD) acute [facility] Work Phone: Evaluation note* Diagnosis Atherosclerosis of [place] coronary artery of [place] heart without angina pectoris- Primary Chest discomfort Other chest pain Essential hypertension, benign Mixed hyperlipidemia Dialysis patient (CMS/HCC) Renal dialysis status Cerebrovascular accident (CVA), unspecified mechanism ([facility]) documented in this encounter [facility] Work Phone: History general Narrative - [...] PVD (PERIPHERAL VASCULAR DISEASE ) Medical History PR X2 Medical History CVA (CEREBRAL VASCULAR ACCIDENT) Surgical History Rt Knee Scope Surgical History Lt Knee Scope 1999 Surgical History Carpal Tunnel Surgical History Rt Hand - Tumor - benign Surgical History Tubal 1985 Surgical History Hyster 2005 Surgical History Heart Cath with Stents 09/2007 Surgical History FISTULA PLACEMENT IN RIGHT ARM 07/13/22 Hospitalization History see Surgery list [facility] Other History of Present illness Narrative* Patient is here for follow-up from recent hospitalization. She is accompanied by her daughter. Patient appears to be poor historian. Most of the information gathered from the daughter. I saw her during recent hospitalization for evaluation of atypical chest pain. Patient reported history of coronary artery disease prior intervention in [place]. Detail is lacking. She does have history [...] 1. Coronary artery disease prior intervention in [place] detail is lacking. Recent evaluation of atypical chest pain. Stress test and echocardiogram appears to be reassuring * 2. Chronic kidney disease on hemodialysis * 3. Hypertension controlled * 4. Hyperlipidemia on treatment * 5. Diabetes mellitus * 6. History of stroke with left-sided weakness and * 7. [facility] resident * 8. Intermittent episode of hemodialysis [...] management and the patient is DNR [facility] 250 DO Work Phone: Progress note Author Tex Kim [facility] July 31, 2022 11:05am Note Date/Time July 31, 2022 11:0 2am [facility] [place] [address] Hem/Onc Follow Up Note - OP Signed Patient: Amparo Castorena MR#: [id number] : 1950 Acct:[id number] Age/Sex: 71 / F Type: REG RCR Copies to: MD Christopher Palafox MD~ Date of Service: 07/31/2022 Time of Service: 11:00 - Assessment & Plan (1) Anemia in chronic kidney disease (CKD) Plan: Anemia of chronic kidney disease CKD-IV on dialysis. Previously seen at [facility] and transferred care to [facility] as of 07/01/22 now on dialysis, gets epo agents through dialysis. Is awaiting fistula for dialysis, this will be done in [place] Previous anemia work-up completed prior to transfer [...] with a history of CVA, diabetes, PVD, PR x 2, cataracts, hyperlipidemia, HTN, GERD, and anemia of CKD. Surgical history includes hysterectomy, carpal tunnel surgery and bilateral arthroscopic knee surgery. She denies any personal or family history of cancer. She is referred by Dr. Sanchez Jean at [facility] to establish care for her anemia from CKD. She recently started Aranesp weekly and is in the process of getting dialysis fistula placed to start dialysis. Most recent labs reveal hgb 8.1, wbc 13.9, platelets 135,000, anc 10.8. Creatinine 4.9 with GFR 9, calcium 8.0. She is transferring care as she resides at [facility] in [place] and this is muchcloser for her and [...] for coordination of care (as documented) and [id number] counseling of patient and/or family. [facility] - Medical History Medical History: Medical History [...] calcium 500 mg-D3 400 unit-K 15 mcg-folic [id number] tablet 1 tab PO DAILY 03/28/21 [History [...] bisacodyl 10 mg rectal suppository 10 mg [place] DAILY PRN Constipation 07/01/22 [History Confirmed 07/31/22] [...] by Tex Kim II, DO> 07/31/22 1105 [facility] Work Phone: Progrvbn note Author Essence [facility] miguel [facility] February 05, 2023 9:59am Note Date/Time February 05, 2023 9 :50am [facility] [place] [address] Hem/Onc Follow Up Note - OP Signed Patient: Amparo Castorena MR#: [id number] : 1950 Acct:[id number] Age/Sex: 72 / F Type: REG RCR Copies to: MD Christopher Palafox MD~ Date of Service: 02/05/2023 Time of Service: 09:49 - Assessment & Plan (1) Anemia in chronic kidney disease (CKD) Plan: Anemia of chronic kidney disease CKD-IV on dialysis. Previously seen at [facility] and transferred care to [facility] as of 07/01/22 now on dialysis, gets [...] with a history of CVA, diabetes, PVD, PR x 2, cataracts, hyperlipidemia, HTN, GERD, and anemia of CKD. Surgical history includes hysterectomy, carpal tunnel surgery and bilateral arthroscopic knee surgery. She denies any personal or family history of cancer. She is referred by Dr. aSnchez Jean at [facility] to establish care for her anemia from CKD. She recently started Aranesp weekly and is in the process of getting dialysis fistula placed to start dialysis. Most recent labs reveal hgb 8.1, wbc 13.9, platelets 135,000, anc 10.8. Creatinine 4.9 with GFR 9, calcium 8.0. She is transferring care as she resides at [facility] in [place] and this is muchcloser for her and [...] for coordination of care (as documented) and [id number] counseling of patient and/or family. [facility] - Medical History Medical History: Medical History [...] calcium 500 mg-D3 400 unit-K 15 mcg-folic [id number] tablet 1 tab PO DAILY 03/28/21 [History [...] bisacodyl 10 mg rectal suppository 10 mg [place] DAILY PRN Constipation 07/01/22 [History Confirmed 02/05/23] [...] <Electronically signed by ELLA Alicea> 02/05/23 0[address] [facility] Work Phone: Reason for referral (narrative)* Consultation (Routine) - Authorized Specialty Diagnoses / Procedures Referred By Savanah t Referred To Contact Cardiology Diagnoses Atherosclerosis of [place] coronary artery of [place] heart without angina pectoris Chest discomfort Procedures Follow Up In Cardiology Danii Rodriguez MD [address] [place], [place] [address]er Count Includes [facility] 2, [address] [address] Danii Rodriguez MD [facility] Count Includes [facility] 2, [address] [place] [address] Referral ID Status Reason Start Date Expiration Date V isits Requested Visits Authorized [id number] Authorized 03/23/2023 03/22/2024 1 1 [facility] Work Phone: Summary Purpose Family History No [...] section and content) DATE CREATED AUTHOR 01/06/2019 [facility] DATE CREATED AUTHOR AUTHOR'S ORGANIZ ATION 06/15/2022 [facility] DATE CREATED AUTHOR AUTHOR'S ORGANIZ ATION 08/26/2022 [facility] DATE CREATED AUTHOR AUTHOR'S ORGANIZ ATION 09/07/2022 [facility] [place] [facility] DATE CREATED AUTHOR AUTHOR'S ORGANIZ ATION 11/12/2022 [facility] DATE CREATED AUTHOR AUTHOR'S ORGANIZ ATION 03/10/2023 [facility] DATE CREATED AUTHOR AUTHOR'S ORGANIZ ATION 03/18/2023 [facility] DATE CREATED AUTHOR AUTHOR'S ORGANIZ ATION 03/25/2023 [facility] Partnership Development Manager Teams (unrecognized sec tion and content) Team [...] Young MD Admit Provider, Attending Provider Active Activities Counselor Relationship Specialty Start Date End Date Christopher Mann MD [address] [facility] [address] [place] [id number] PCP - General 11/11/22 Goals (unrecognized section [...] BE BASED ON THE PRIMARY CLINICAL RECORDS. [facility]. provides no warranty or guarantee of the accuracy or completeness of information in this document.
[2023-08-06 08:28] LABS: Basophils Absolute Auto 0.1 10^3/uL (0.0-0.1); Basophils Percent Auto 0.6 % (0.2-2.0); Eosinophils Absolute Auto 0.1 10^3/uL (0.0-0.7); Eosinophils Percent Auto 1.6 % (0.9-7.0); Hematocrit 37.5 % (36.0-48.0); Hemoglobin 11.5 g/dL (12.0-16.0); Immature Granulocytes Abs Auto 0.09 10^3/uL (0.00-0.03); Lymphocytes Absolute Auto 2.4 10^3/uL (1.2-3.8); Lymphocytes Percent Auto 26.2 % (20.5-60.0); Mean Corpuscular HGB Conc 30.7 g/dL (29.9-35.2); Mean Corpuscular Hemoglobin 32.7 pg (26.7-34.0); Mean Corpuscular Volume 106.5 fL (81.0-99.0); Mean Platelet Volume 10.2 fL (9.5-13.5); Monocytes Absolute Auto 0.6 10^3/uL (0.3-0.8); Monocytes Percent Auto 7.1 % (1.7-12.0); Neutrophils Absolute Auto 5.7 10^3/uL (1.4-6.5); Neutrophils Percent Auto 63.5 % (43.0-75.0); Platelet Count 110 10^3/uL (150-450); Red Blood Count 3.52 10^6/uL (4.20-5.40); Red Cell Distribution Width 13.3 % (11.0-15.0)
== END 2023-08-06 03:06 | disposition home or self-care (01) ==
LOC: LAB 03:05
PROVIDERS: PCP Family Medicine
DX: N18.9 Chronic kidney disease, unspecified (principal); D63.1 Anemia in chronic kidney disease
CPT/HCPCS: 36415; 82607; 82728; 82746; 83540; 83550; 85025

== ENCOUNTER 2024-02-01 10:00 | Outpatient (OUT) | payer MEDICARE, MEDICAID, SELFPAY ==
--- NOTE | 2024-02-01 10:03 | MM_ITS ---
Patient Name: SAMREEN LANGE MR#: [id number] : 1950 Exam Date: 02/01/2024 Ordering Doctor: DR CHRISTOPHER MANN M.D. RADIOLOGY REPORT PROCEDURE: MM SCREENING MAMMO BI COMPARISON: MM SCREENING MAMMO BI, 01/28/2023. MG MAMM SCREEN MOIRA W CAD, 01/19/2022. MG MAMM SCREEN MOIRA W CAD, 01/15/2021. MG MAMM SCREEN MOIRA W CAD, 12/14/2018. INDICATIONS: Screening Calculator Name NCI Breast Cancer Risk Assessment Tool 5 Year Breast Cancer Risk 1.60% Lifetime Breast Cancer Risk 3.70% Personal Breast Cancer No Personal Ovarian Cancer No Treatments hysterectomy Family Cancers Father with pancreatic cancer at age 68. LOCATION: [facility] BREAST COMPOSITION: The breasts are heterogeneously dense,which may obscure small masses. FINDINGS: DIAGNOSTIC CATEGORY 1--NEGATIVE. RIGHT BREAST: Only CC view was able to be obtained due to patient condition. No significant suspicious finding. LEFT BREAST: Only CC view was able to be obtained due to patient condition. No significant suspicious finding. RECOMMENDATIONS: ROUTINE MAMMOGRAM AND CLINICAL EVALUATION IN 12 MONTHS. PLEASE NOTE: A NORMAL MAMMOGRAM DOES NOT EXCLUDE THE POSSIBILITY OF BREAST CANCER. A CLINICALLY SUSPICIOUS PALPABLE LUMP SHOULD BE BIOPSIED. Dictated by: Desmond Carey M.D. on 02/02/2024 at 15:03 Approved by: Desmond Carey M.D. on 02/02/2024 at 15:04
--- OUTSIDE RECORDS SUMMARY | 2024-02-01 10:10 | XMS_ITS | CCD ---
Author Organization [facility] Care Team Providers Care Vocational Teacher Name Role Phone MD Christopher Mann Primary Care Provider [phone] ELLA Alicea Attending Provider MD Sanchez Jean Referring Provider [phone] Essie Salas Unavailable MD Christopher Mann Primary Care Provider [phone] ELLA Alicea Attending Provider MD Sanchez Jean Referring Provider SAMIRA Moss Emergency Provider MD Camila Young Admit Provider MD Camila Young Attending Provider Danii Rodriguez Attending Unavailable Traboulssi, Danii Attending Unavailable Traboulssi, Danii Attending Unavailable Traboulssi, Danii Attending Unavailable Traboulsselroy, Danii Attending Unavailable JOHNATHAN, DR WHITE Consulting [...] Attending Unavailable JOHNATHAN, DR WHITE Admitting Unavailable [place], Christopher Sandhu Unavailable Unavailable Unavailable MD Christopher Mann Primary Care Provider ELLA Alicea Attending Provider MD Sanchez Jean Referring Provider Dr. Danii Rodriguez Referring Unavaila ble Alecoultiara, Dr. Wade Attending Unavaila ble [place], Dr. Christopher Mckeon Primary [facility] Unavaila [facility] DANII RODRIGUEZ Attending Unavailable JOHNATHAN, CHRISTOPHER MCKEON [facility] Unavailable MD Christopher Mann Primary Care Provider [phone] ELLA Alicea Attending Provider MD Sanchez Jean Referring Provider [phone] [place], [facility] Halle Gill Emergency Provider MD Emerald Conn Admit Provider MD Emerald Conn Attending Provider MD Essie Salas Other Provider DO Rodger Tomas Other Provider Essence Alicea Attending Unavail able Sanchez Jean Referring Unavailable Christopher Mann Primary Care Unavailable Essence Alicea Admitting Unavail able Christopher Mann Primary Care Unavailable Essie Salas Consulting Unavailable Emerald Conn Admitting Unavailable Emerald Conn Attending Unavailable Rodger Tomas Consulting Unavailab le Allergies Allergy Classification Reported Allergen(s) Allergy Type Date of Onset Reaction(s) Facility (10 sources) Cephalexin; Translations: [CEPHALEXIN] Drug Allergy 3 Itching, Swelling [facility] (8 sources) Diclofenac; Translations: [diclofenac] Drug Allergy 3 [facility] (8 sources) miSOPROStol; Translations: [misoprostol] Drug Allergy 3 [facility] (5 sources) Cephalexin; Translations: [Keflex] Drug Allergy 6 reddened pruritic rash, Swelling, Itching [facility] (4 sources) Diclofenac / miSOPROStol Drug Allergy 3 [facility] (1 source) Diclofenac / miSOPROStol Drug Allergy 6 [facility] (1 source) Diclofenac / miSOPROStol; Translations: [Arthrotec TABS] Drug Allergy Hives, Itching, Rash [facility] 250 DO Work Phone: (1 source) shellfish, unspecified Allergy to substance (finding) Vomiting [facility] 250 DO Work Phone: (2 sources) Shellfish; Translations: [SHELLFISH CONTAINING PRODUCTS] Propensity to adverse reactions 3 Nausea/vomiting [facility] Work Phone: (1 source) Diclofenac / miSOPROStol; Translations: [DICLOFENAC-MIS OPROSTOL] Drug Allergy 3 [facility] 3 Repository Medications Current Medications Medication Drug Class(es) Dates Sig (Normalized) Sig (Original) acetaminophen 325 mg oral tablet (17 sources) Start: 03-28-2021 End: 06-30-2022 take 325 mg by mouth every six hours Acetaminophen Active 325 MG PO Q6H July 01, 2022 1:00am atorvastatin 20 mg oral tablet (12 sources) HMG-CoA Reductase Inhibitor Start: 05-04-2011 take [...] day Active bisacodyl 10 mg rectal suppository (16 sources) Stimulant Laxative Start: 03-28-2021 End: 06-30-2022 Bisacodyl Active 10 MG VA Daily July 01, 2022 1:00am Calcium + D + K 750-500-40 MG-UNT-MCG (3 sources) take 1 tablet by mouth once daily at mealtime Calcium + D + K 750-500-40 MG-UNT-MCG 1 tablet with meals Orally ONCE A DAY Active calcium carbonate 500 mg chewable tablet (11 sources) Start: 09-15-2023 take 1 tablet by mouth three times daily Calcium Carbonate (Hood-Gest Antacid) 200 mg calcium (500 mg) tablet,chewable Active 200 MG PO Three times daily September 15, 2023 12:00am Start: 03-28-2021 take 1 tablet by haresh th three times daily at mealtime Calcium Carbonate [...] Ordered: 11-Nov-2022 DO Active Calcium Carbonate Antacid 42 0 MG (3 sources) take 2 tablets by mouth once daily Calcium Carbonate Antacid 420 MG 2 tablets Orally Once a day Active carboxymethylcellulose sodiu m 10 mg/ml ophthalmic solution (3 sources) Artificial Tears 1 % as directed Ophthalmic Active carboxymethylcellulose sodiu m 0.01 mg/mg / glycerin 0.009 mg/mg ophthalmic gel (2 sources) Non-Standardized Chemical Allergen Start: 2023 Carboxymethylcellu lose-Glycern (Refresh Optive) 1-0.9 % drops,gel Active 1 DROPS EYE-BOTH Twice daily September 15, 2023 12:00am carvedilol 12.5 mg oral tablet (12 sources) alpha-Adrenergic Vilma, beta-Adrenergic Vilma Start: 2020 take 12.5 mg by mouth twice daily Carvedilol Active 12.5 MG PO Twice daily March 28, 2021 1:00am Cepacol Regular Strength 3 M G (3 sources) Cepacol Regular Strength 3 MG 1 lozenge as needed Mouth/Throat every 2 hrs Active 1 ml darbepoetin chris 0.06 mg/ml injection (4 sources) Erythropoiesis-stim ulating Agent Start: 2022 Darbepoetin Chris In Polysorbat (Aranesp (In Polysorbate)) 60 mcg/mL Solution Active 60 MCG IV-PUSH WE@1000 0 August 05, 2022 12:00am diclofenac sodium 0.01 mg/mg topical gel (3 sources) Nonsteroidal Anti-inflammatory Drug Voltaren 1 % as directed Externally Active Epoetin Chris 86644 UNIT/ML (3 sources) Epoetin Chris 200 00 UNIT/ML as directed Injection ONCE A WEEK Active fexofenadine hydrochloride 6 0 mg oral tablet (12 sources) Histamine-1 Receptor Antagonist Start: 2020 take 1 tablet by mouth once daily Fexofenadine (Debbie Allergy) 60 mg Tablet Active 60 MG PO Daily March 28, 2021 1:00am folic acid 1 mg oral tablet (7 sources) Start: 2022 take 1 mg by mouth once daily Folic Acid Active 1 MG PO Daily July 31, 2022 12:00am furosemide 40 mg oral tablet (11 sources) Loop Diuretic Start: 2022 take 80 mg by mouth once daily Furosemide Active 80 MG PO Daily July 31, 2022 12:00am sun, tue,lee, sat Start: 07-14-2022 take 40 mg by mouth once daily Furosemide Active 40 MG PO Daily July 31, 2022 12:00am once-daily gabapentin 300 mg oral tablet (12 sources) Anti-epileptic Agent Start: 03-28-2021 take 300 mg by mouth once daily at bedtime Gabapentin Active 300 MG PO Daily at bedtime March 28, 2021 1:00am Start: 03-28-2021 take 300 mg by mouth once daily at bedtime Gabapentin Active 300 MG PO Daily at bedtime March 28, 2021 1:00am take 1 capsule by mo [facility] three times daily gabapentin (Neurontin) 300 mg capsule Take 1 capsule (300 mg) by mouth 3 times a day. 0 Active Glucagon Hcl (Glucagon (Hcl) Emergency Kit) 1 mg Recon Soln (6 sources) Start: 07-01-2022 Glucagon Hcl ( Glucagon (Hcl) Emergency Kit) 1 mg Recon Soln Active 1 MG IM As Directed July 01, 2022 1:00am inject 1 syringe intramuscularly as needed for blood sugar less than 50 glucose 0.4 mg/mg oral gel (15 sources) Start: 09-15-2023 Dextrose (Gluc ose Gel) 40 % gel Active 10 GM PO Q15M September 15, 2023 12:00am until symptoms of low blood sugar are controlled Start: 03-28-2021 End: 09-15-2023 Dextrose (Glucose Gel) 40 % Gel Discontinued 10 GM PO As Directed July 01, 2022 1:00am September 15, 2023 11:06am give one unit by mouth as needed for blood sugar less than 50 if able to take oral treatment, may repeat x1 12 hr guaiFENesin 600 mg extended release oral tablet (16 sources) Start: 07-01-2022 take 1 tablet by [...] 2022 3:22pm hydrocortisone 0.01 mg/mg topical gel (9 sources) Corticosteroid Start: 07-01-2022 Hydrocortisone Active 1 APPLIC TOPICAL As Directed July 01, 2022 1:00am Hydrocortisone 1 % 1 application Externally Once a day Active hydrOXYzine hydrochloride 25 mg oral tablet (3 sources) Antihistamine take 1 tablet by mouth every six hours hydrOXYzine HCl 25 MG 1 tablet NEEDED Orally every 6 hrs Active Insulin Nph And Regular Human (20 sources) Insulin Start: 09-15-2023 Insulin Nph And Regular Human (Humulin 70/30 U-100 Kwikpen) 100 unit/mL (70-30) insulin pen Active 40 UNIT SUBCUT Every morning September 15, 2023 12:00am Start: 09-15-2023 Insulin Nph An d Regular Human (Humulin 70/30 U-100 Kwikpen) 100 unit/mL (70-30) insulin pen Active 45 UNIT SUBCUT Daily at bedtime September 15, 2023 12:00am Start: 03-28-2021 End: 09-15-2023 Insulin Nph And Regular Dinah n (Novolin 70/30 U-100 Insulin) 100 unit/mL (70-30) suspension Discontinued 50 UNIT SUBCUT Daily March 28, 2021 1:00am September 15, 2023 11:10am Start: 03-28-2021 End: 07-01-2022 Insulin Nph And [...] 0 Refills: 0 Ordered: 11-Nov-2022 DO Active Insulin Lispro (2 sources) Insulin Analog Start: 09-15-2023 inject 1 dose by subcutaneous injection at bedtime Insulin Lispro Active 1 sliding scale dose SUBCUT Before meals and at bedtime September 15, 2023 12:00am ammonium lactate 120 mg/ml topical cream (2 sources) Start: 09-15-2023 Ammonium Lactate Active 1 APPLIC TOPICAL Twice daily September 15, 2023 12:00am levoFLOXacin 250 mg oral tablet (1 source) Quinolone Antimicrobial Start: 09-17-2023 Levofloxacin Active 250 MG PO Every 48 hours 2 3 September 17, 2023 12:00am lidocaine hydrochloride 40 mg/ml topical cream (2 sources) Antiarrhythmic, Amide Local Anesthetic Start: 09-15-2023 Lidocaine Hcl (Aspercreme (Lidocaine Hcl)) 4 % cream Active 1 APPLIC TOPICAL As Directed September 15, 2023 12:00am M,W,F PRIOR TO DIALYSIS Magnesium (3 sources) take 1 capsule by mouth twice daily Magnesium 400 MG 1 capsule with a meal Orally Twice a day Active magnesium oxide 400 mg oral tablet (15 sources) Start: 07-01-2022 take 400 mg by mouth once daily Magnesium Oxide Active 400 MG PO Daily July 01, 2022 1:00am Start: 03-28-2021 End: 06-30-2022 take 400 mg by mouth twice daily Magnesium Oxide Discontinued 400 MG PO Twice daily March 28, 2021 1:00am June 30, 2022 3:22pm Menthol (2 sources) Start: 09-15-2023 Menthol (Biofr eeze (Menthol)) 4 % gel Active 1 APPLIC TOPICAL Twice daily September 15, 2023 12:00am midodrine hydrochloride 5 mg oral tablet (4 sources) alpha-Adrenergic Agonist Start: 09-15-2023 Midodrine Active 5 M G PO As Directed September 15, 2023 12:00am M,W,F [facility] midodrine (Proamatine) 5 mg [...] omeprazole 20 mg delayed release oral tablet (12 sources) Proton Pump Inhibitor Start: 06-30-2022 take 20 mg by mouth once daily Omeprazole Active 20 MG PO Daily June 30, 2022 1:00am take 1 capsule by [facility] once daily before mealtime omeprazole (PriLOSEC) [address] capsule Take 1 capsule (20 mg) by mouth once daily in the morning. Take before meals. Do not crush or chew. 0 Active ondansetron 4 mg disintegrating oral tablet (11 sources) Serotonin-3 Receptor Antagonist Start: 07-01-2022 take [...] to dissolve Orally Once a day Active polyvinyl alcohol 0.014 ml/ml ophthalmic solution (2 sources) Start: 09-15-2023 Polyvinyl Alco hol (Artificial Tears (Polyvin Alc)) 1.4 % drops Active 1 DROPS EYE-BOTH Four times daily September 15, 2023 12:00am sertraline 25 mg oral tablet (9 sources) Serotonin Reuptake Inhibitor Start: 06-30-2022 take 25 mg by mouth once daily Sertraline Active 25 MG PO Daily June 30, 2022 1:00am sodium polystyrene sulfonate 250 mg/ml oral suspension (2 sources) Start: 09-15-2023 Sodium Polysty jadon Sulf-Sorbtl (Sps (With Sorbitol)) 15-20 gram/60 mL suspension Active 120 ML PO Daily September 15, 2023 12:00am Completed/Discontinued Medications Medication Drug Class(es) Dates Sig (Normalized) Sig (Original) acarbose 100 mg oral tablet (7 sources) alpha-Glucosidas e Inhibitor Start: 03-28-2021 End: 07-31-2022 take 100 mg by mouth twice daily before mealtime Acarbose Discontinued 100 MG PO Twice daily March 28, 2021 1:00am July 31, 2022 7:05pm before meals acetaminophen 325 mg / HYDROcodone bitartrate 5 mg oral tablet (14 sources) Opioid Agonist Start: 07-01-2022 End: 09-17-2023 take 1 tablet by mouth every eight hours Hydrocodone-Acetam inophen Discontinued 1 TAB PO Q8H 9 3 August 05, 2022 September 17, 2023 2:15pm take 1 tablet by haresh th three times daily as needed for pain HYDROcodone-acetaminophen (Zebulon) 5-325 mg tablet Take 1 tablet by mouth 3 times a day as needed for severe pain (7 - 10). 0 Active albuterol 0.833 mg/ml / ipratropium bromide 0.167 mg/ml inhalation solution (7 sources) Anticholinergic, beta2-Adrenergic Agonist Start: 03-28-2021 End: 06-30-2022 take 1 mL by inhalation every eight hours Ipratropium-Albuterol (Duoneb) 0.5 mg-3 mg(2.5 mg base)/3 mL Solution For Nebulization Discontinued 3 ML INHALATION Q8H March 28, 2021 1:00am June 30, 2022 3:22pm alendronic acid 70 mg oral tablet (7 sources) Bisphosphonate Start: 03-28-2021 End: 06-30-2022 take 1 tablet by mouth every week Alendronate (Fosamax) 70 mg Tablet Discontinued 70 MG PO every week March 28, 2021 1:00am June 30, 2022 3:21pm take every Wednesday Amino Acids-Protein Hydrolys (Pro-Stat Awc) 17-100 gram-kcal/30 mL Liquid (6 sources) Start: 07-01-2022 End: 07-31-2022 Amino Acids-Protein Hydrolys (Pro-Stat Awc) 17-100 gram-kcal/30 mL Liquid Discontinued 1 EACH PO Daily July 01, 2022 1:00am July 31, 2022 7:05pm Start: 07-01-2022 Amino Acids-Pr otein Hydrolys (Pro-Stat Awc) 17-100 gram- kcal/30 mL Liquid Active 1 EACH PO Daily July 01, 2022 1:00am amLODIPine 5 mg oral tablet (10 sources) Dihydropyridine Calcium Channel Vilma Start: 03-28-2021 End: 08-18-2023 take 2 tablets by mouth once daily Amlodipine (Norvasc) 5 mg Tablet Discontinued 10 MG PO Daily March 28, 2021 1:00am August 18, 2023 9:07am Start: 05-04-2011 take 1 tablet by haresh th every twenty-four hours amLODIPine Besylate 10 MG 1 tablet Orally Once a day for 30 days Apr, Active benzocaine 15 mg / menthol 2.3 mg oral lozenge (3 sources) Standardized Chemical Allergen Start: 03-28-2021 End: 06-30-2022 Benzocaine-Menthol (Cepacol Sore Throat (Andrew-Men)) 15-2.3 mg Lozenge Discontinued 1 LOZENGE PO Q8H March 28, 2021 1:00am June 30, 2022 3:21pm Benzocaine-Menthol (Cepacol Sore Throat (Andrew-Men)) 15-2.3 mg Lozenge (4 sources) Start: 03-28-2021 End: 06-30-2022 Benzocaine-Menthol (Cepacol Sore Throat (Andrew-Men)) 15-2.3 mg Lozenge Discontinued 1 LOZENGE PO Q8H March 28, 2021 1:00am June 30, 2022 3:21pm Start: 03-28-2021 End: 06-30-2022 Benzocaine-Menthol (Cepacol Sore Throat (Andrew-Men)) 15-2.3 mg Lozenge Discontinued 1 LOZENGE PO Q8H March 28, 2021 12:00am June 30, 2022 2:21pm [id number]-Kiwfna ls (7 sources) Start: 03-28-2021 End: 09-15-2023 take 1 tablet by mouth once daily [id number]-Sgnibkvc Discontinued 1 TAB PO Daily March 28, 2021 1:00am September 15, 2023 11:06am Start: 03-28-2021 take 1 tablet by haresh th once daily Fmlmbxo-[id number]-Lsdfyooy Active 1 TAB PO Daily March 28, 2021 1:00am Start: 03-28-2021 take 1 tablet by haresh th once daily [id number]-Dxfmagaq Active 1 TAB PO Daily March 28, 2021 12:00am cholecalciferol 1.25 mg oral capsule (6 sources) Vitamin D Start: 07-01-2022 End: 07-31-2022 Cholecalciferol (Vitamin D3) Discontinued 1250 MCG PO As Directed July 01, 2022 1:00am July 31, 2022 7:05pm 1 ml epoetin chris 2000 unt/ml injection (6 sources) Erythropoies is-stimulati ng Agent Start: 07-01-2022 End: 07-31-2022 inject 2000 [IU] by subcutaneous injection every week Epoetin Chris Discontinued 2000 UNIT SUBCUT every week July 01, 2022 1:00am July 31, 2022 7:05pm ferrous sulfate 325 mg oral tablet (10 sources) Start: 03-28-2021 End: 07-31-2022 take 1 tablet by mouth once daily Ferrous Sulfate (Ferrousul) 325 mg (65 mg iron) Tablet Discontinued 325 MG PO Daily March 28, 2021 1:00am July 31, 2022 10:51am take 1 tablet by mouth once miguel y Ferrous Sulfate 325 (65 Fe) MG 1 tablet Orally Once a day Active glucagon (rdna) 1 mg injection (10 sources) Antihypoglycemic Agent Start: 03-28-2021 End: 06-30-2022 Glucagon (Glucagon Emergency Kit (Human)) 1 mg Recon Soln Discontinued 1 MG IM As Directed March 28, 2021 1:00am June 30, 2022 3:22pm 1 syringe IM as needed for blood surgar less than 50 may repeat x1 Glucagon Emergen cy 1 MG as directed Injection Active loperamide hydrochloride 2 mg oral capsule (16 sources) Opioid Agonist Start: 03-28-2021 End: 09-17-2023 Loperamide Discontinued 2 MG PO As Directed July 01, 2022 1:00am September 17, 2023 2:15pm moxifloxacin 5 mg/ml ophthalmic solution (7 sources) Quinolone Antimicrobial Start: 03-28-2021 End: 06-30-2022 take 1 drop(s) into the eye(s) four times daily Moxifloxacin (Vigamox) 0.5 % Drops Discontinued 1 DROPS EYE-LEFT Four times daily March 28, 2021 1:00am June 30, 2022 3:23pm naphazoline hydrochloride 0.25 mg/ml / pheniramine maleate 3 mg/ml ophthalmic solution (7 sources) Start: 03-28-2021 End: 06-30-2022 take 0.025-0.3 drop(s) into the eye(s) three times daily Naphazoline-Phenir amine (Naphcon-A) 0.025-0.3 % Drops Discontinued 1 DROPS EYE-BOTH Three times daily March 28, 2021 1:00am June 30, 2022 3:23pm prednisoLONE acetate 10 mg/ml ophthalmic suspension (7 sources) Corticosteroid Start: 03-28-2021 End: 06-30-2022 take 1 drop(s) into the eye(s) four times daily Prednisolone Acetate Discontinued 1 DROPS EYE-LEFT Four times daily March 28, 2021 1:00am June 30, 2022 3:22pm sodium bicarbonate 650 mg oral tablet (9 sources) Start: 07-01-2022 End: 07-31-2022 take 1300 mg by mouth twice daily Sodium Bicarbonate Discontinued 1300 MG PO Twice daily July 01, 2022 1:00am July 31, 2022 10:54am take 2 tablets by mo uth every twelve hours Sodium Bicarbonate 650 MG 2 TABLET Orall y TWICE A DAY Active sodium zirconium cyclosilica te 5000 mg powder for oral suspension (10 sources) Start: 06-30-2022 End: 07-31-2022 Sodium Zirconium Cyclosilica te (Lokelma) 5 gram Powder In Packet Discontinued 5 GM PO Daily June 30, 2022 1:00am July 31, 2022 7:05pm Lokelma 5 GM 1 p acket dissolved in water Orally Active traMADol hydrochloride 50 mg oral tablet (7 sources) Opioid Agonist Start: 03-28-2021 End: 06-30-2022 take 100 mg by mouth every twelve hours Tramadol Discontinued 100 MG PO Q12H March 28, 2021 1:00am June 30, 2022 3:22pm Problems Active Problems Problem Classification Problem Date Documented Date Episodic/Chronic Acute cerebrovascular disease (13 sources) Occlusion of cerebral artery with stroke; Translations: [CVA, Unspecified] Onset: 3 03-23-2023 Chronic Administrative/socia l admission (1 source) Lives in a [facility]; Translations: [Person living in residential institution] Episodic Bacterial infection; unspecified site (4 sources) Microbiologic culture positive; Translations: [Bacteremia] 02-05-2023 Episodic Cancer of uterus (3 sources) Primary malignant neoplasm of endometrium; Translations: [Endometrial cancer] Chronic Chronic kidney disease (20 sources) Chronic kidney disease stage 1; Translations: [Chronic Kidney Disease Stage I] Onset: Chronic Conditions associated with dizziness or vertigo [...] Translations: [Anemia in chronic kidney disease] Onset: 4 Chronic Deficiency and other anemia (5 sources) Anemia, unspecified; Translations: [ANEMIA UNSPECIFIED] Onset: 3 Episodic Diabetes mellitus with complications (13 sources) Disorder of kidney due to diabetes [...] Chronic Hypertension with complications and secondary hypertension (14 sources) 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; Translations: [Hypertensive chronic kidney disease with stage 5 chronic kidney disease or end stage renal disease] Onset: 3 Chronic Inflammation; infection of eye (except that caused by tuberculosis or sexually transmitteddisease) (3 sources) External hordeolum; Translations: [Stye] Episodic Nonspecific chest pain (11 sources) Atypical chest pain; Translations: [Other chest pain] Onset: 3 07-31-2022 Episodic Other diseases of kidney and ureters (5 sources) Secondary hyperparathyroidism; Translations: [Secondary hyperparathyroidism of renal origin] 09-15-2023 Chronic Other diseases of kidney and ureters (4 sources) Secondary hyperparathyroidism of renal origin; Translations: [Secondary hyperparathyroidism (of renal origin)] Onset: 4 Chronic Other ear and sense organ disorders (3 sources) Tinnitus; Translations: [Tinnitus NOS] Episodic Other inflammatory condition of skin (3 sources) Rosacea; Translations: [Rosacea] Chronic Other nervous system disorders (4 sources) Chronic pain; Translations: [Other chronic pain] 02-05-2023 Chronic Other nervous system disorders (2 sources) Metabolic encephalopathy; Translations: [Metabolic encephalopathy] 09-15-2023 Chronic Other nervous system disorders (3 sources) Metabolic encephalopathy; Translations: [Metabolic encephalopathy] Onset: 4 09-15-2023 Chronic Other non-traumatic joint disorders (3 sources) Arthralgia of the lower leg; Translations: [Pain in joint, lower leg] Episodic Residual codes; unclassified (3 sources) Obstructive sleep apnea syndrome; Translations: [BIJAL] Chronic Residual codes; unclassified (1 source) Inappropriate diet and eating habits; Translations: [INAPPROPRIATE DIET AND EATING HABITS] Onset: 3 Episodic Residual codes; unclassified (2 sources) Altered mental status; Translations: [Altered mental status, unspecified] 09-15-2023 Episodic Residual codes; unclassified (3 sources) Altered mental status, unspecified; Translations: [Altered mental status] Onset: 4 09-15-2023 Episodic Residual codes; unclassified (1 source) Disorientation, unspecified; Translations: [Disorientation, unspecified] Onset: Episodic Screening and history of mental health and substance abuse codes (1 source) Ex-smoker; Translations: [Personal history of tobacco use] Episodic Urinary tract infections (13 sources) Urinary tract infectious disease; Translations: [Urinary tract infection, site not specified] Onset: 4 07-31-2022 Episodic Past or Other Problems Problem Classification Problem Date Documented Da te Episodic/Chronic Other screening for suspected conditions (not mental disorders or infectious disease) (7 sources) Renal function tests abnormal; Translations: [Abnormal kidney function study] Onset: 01-19-2022 Episodic Residual codes; unclassified (1 source) Family history of malignant neoplasm of other organs or systems; Translations: [FAM HX MALIG NEOPLASM OTH ORGN/SYS] Onset: 01-21-2022 Episodic Unclassified (1 source) Onset: 03-23-2023 03-23-2023 Results Test Name Value Interpretation Reference Range Facility Albumin [Mass/volume] in Ser um or Plasma by Bromocresol green (BCG) dye binding methoOrdered By: Essie Salas on 09-17-2023 Albumin BCG dye [Mass/Vol] 3.4 g/dL 3.5-5.7 [facility] Calcium [Mass/volume] in Ser um or PlasmaOrdered By: Essie Salas on 09-17-2023 Calcium [Mass/Vol] 8.3 mg/dL Low 8.6-10.3 [facility] Comment on above: Performed By: #### R ENAL #### [facility] [address] Capillary blood glucose lilia urement by glucometer (mass/volume)Ordered By: Emerald Conn on 09-17-2023 Glucose [Mass/Vol] 178 mg/dL Normal [facility] Comment on above: Random Glucose Refer ence Range is dependent on time and content of last meal. Glucose of more than 200 mg/dL in a nonstressed, ambulatory subject supports the diagnosis of Diabetes Mellitus. Result Comment: [facility] om Glucose Reference Range is dependent on time and content of last meal. Glucose of more than 200 mg/dL in a nonstressed, ambulatory subject supports the diagnosis of Diabetes Mellitus. PERFORMED BY: [address] [place] [address] PATHOLOGIST KENNEL AIDE DANII HAYNES M.D. Performed By: #### G LUMAMIE #### Point of Care testing , Carbon dioxide, total [Moles /volume] in Serum or PlasmaOrdered By: Essie Salas on 09-17-2023 CO2 [Moles/Vol] 22.3 mmol/L Normal 21.0-31.0 [facility] Comment on above: Performed By: #### R ENAL #### [facility] [address] [place] [address] [place] Chloride [Moles/volume] in S alida or PlasmaOrdered By: Essie Salas on 09-17-2023 Chloride [Moles/Vol] 91 mmol/L Low 98-107 [facility] Comment on above: Performed By: #### R ENAL #### [facility] [address] [place] [address] [place] Creatinine [Mass/volume] in Serum or PlasmaOrdered By: Essie Salas on 09-17-2023 Creatinine [Mass/Vol] 6.67 mg/dL Significan t change up 0.60-1.20 [facility] Comment on above: Delta: 5.60 on 09/15 Performed By: #### R ENAL #### [address] Glucose Poct Glucometerson 0 09-17-2023 Commemt1 Glu2: Cleaned Meter Normal [facility] Comment on above: Result Comment: PERF ORMED BY: [facility] [address] [place] [address] PATHOLOGIST KENNEL AIDE DANII HAYNES M.D. Performed By: #### G LULS #### Point of Care testing , Glucose [Mass/Vol] 247 mg/dL Normal [facility] Comment on above: Result Comment: Champion om Glucose Reference Range is dependent on time and content of last meal. Glucose of more than 200 mg/dL in a nonstressed, ambulatory subject supports the diagnosis of Diabetes Mellitus. Performed By: #### G LULS #### Point of Care testing , Glucose [Mass/Vol] 327 mg/dL Normal [facility] Comment on above: Result Comment: [place] om Glucose Reference Range is dependent on time and content of last meal. Glucose of more than 200 mg/dL in a nonstressed, ambulatory subject supports the diagnosis of Diabetes Mellitus. PERFORMED BY: [place] [address] PATHOLOGIST KENNEL AIDE DANII HAYNES M.D. Performed By: #### G LULS #### Point of Care testing , Glucose [Mass/volume] in Ser um or PlasmaOrdered By: Essie Salas on 09-17-2023 Glucose [Mass/Vol] 294 mg/dL High 70-100 [facility] Comment on above: ADA recommended refe rence rangeRandom Glucose Reference Range is dependent on time and content of last meal. Glucose of more than 200 mg/dL in a nonstressed, ambulatory subject supports the diagnosis of Diabetes Mellitus. Result Comment: [place] om Glucose Reference Range is dependent on time and content of last meal. Glucose of more than 200 mg/dL in a nonstressed, ambulatory subject supports the diagnosis of Diabetes Mellitus. ADA recommended reference range Performed By: #### R ENAL #### [address] No Panel InformationOrdered By: Emerald Conn on 09-17-2023 Bedside Glucose Comment Glu2: cleaned meter [facility] No Panel InformationOrdered By: Essie Salas on 09-17-2023 Estimated GFR (CKD-EPI) 6.102 mL/Min [facility] Creatinine Clearance (Chem 8.72 [facility] Phosphate [Mass/volume] in S alida or PlasmaOrdered By: Essie Salas on 09-17-2023 Phosphate [Mass/Vol] 5.2 mg/dL High 2.5-4.5 [facility] Comment on above: Performed By: #### R ENAL #### [address] Potassium [Moles/volume] in Serum or PlasmaOrdered By: Essie Salas on 09-17-2023 Potassium [Moles/Vol] 4.1 mmol/L Normal 3.5-5.1 [facility] Comment on above: Performed By: #### R ENAL #### [address] Renal Function Panelon 09-16 Albumin [Mass/Vol] 3.4 g/dL Low 3.5-5.7 [facility] Comment on above: Performed By: #### R ENAL #### [address] Creatinine Clr Calc Pharmacy 8.72 Normal [facility] Comment on above: Result Comment: PERF ORMED BY: [place] [address] PATHOLOGIST KENNEL AIDE DANII HAYNES M.D. Performed By: #### R ENAL #### [address] GFR/1.73 sq M.predicted MDRD (S/P/Bld) [Vol rate/Area] 6.102 mL/min/{1.73_m2} Normal [facility] Comment on above: Performed By: #### R ENAL #### [address] Serum or plasma anion gap de terminationOrdered By: Essie Salas on 09-17-2023 Anion gap [Moles/Vol] 14.8 mmol/L Normal 6.0-15.0 [facility] Comment on above: Performed By: #### R ENAL #### [address] Sodium [Moles/volume] in Ser um or PlasmaOrdered By: Essie Salas on 09-17-2023 Sodium [Moles/Vol] 124 mmol/L Normal 136-145 [facility] Comment on above: Delta: 131 on Critical Result Called to and read back by: CONSTANTINO MALDONADO at: 09/17/2023 08:51:29 by:SENAIT Result Comment: Crit ical Result Called to and read back by: CONSTANTINO MALDONADO at: 09/17/2023 08:51:29 by:SENAIT Performed By: #### R ENAL #### [address] Urea nitrogen [Mass/volume] in Serum or PlasmaOrdered By: Essie Salas on 09-17-2023 Urea nitrogen [Mass/Vol] 48 mg/dL High 7-25 [facility] Comment on above: Performed By: #### R ENAL #### [address] Automated basophil %Ordered By: Emerald Conn on 09-16-2023 Basophils/100 WBC (Bld) 0.7 % Normal . [facility] Comment on above: Performed By: #### C BC #### [address] Automated basophil countOrde red By: Emerald Conn on 09-16-2023 Basophils (Bld) [#/Vol] 0.1 10*3/uL Normal 0.0-0.2 [facility] Comment on above: Result Comment: PERF ORMED BY: [place] [address] PATHOLOGIST KENNEL AIDE DANII HAYNES M.D. Performed By: #### C BC #### [address] Automated blood monocyte cou ntOrdered By: Emerald Conn on 09-16-2023 Monocytes (Bld) [#/Vol] 0.7 10*3/uL Normal 0.0-0.8 [facility] Comment on above: Performed By: #### C BC #### [address] Automated eosinophil %Ordere d By: Emerald Conn on 09-16-2023 Eosinophils/100 WBC (Bld) 1.7 % Normal . [facility] Comment on above: Performed By: #### C BC #### [address] Automated eosinophil countOr dered By: Emerald Conn on 09-16-2023 Eosinophils (Bld) [#/Vol] 0.2 10*3/uL Normal 0.0-0.45 [facility] Comment on above: Performed By: #### C BC #### [address] Automated monocyte %Ordered By: Emerald Conn on 09-16-2023 Monocytes/100 WBC (Bld) 6.1 % Normal . [facility] Comment on above: Performed By: #### C BC #### [address] Automated neutrophil %Ordere d By: Emerald Conn on 09-16-2023 Neutrophils/100 WBC (Bld) 74.1 % Normal . [facility] Comment on above: Performed By: #### C BC #### [address] Basic Metabolic Panelon 08-25 Anion gap [Moles/Vol] Not performed Normal 6.0-15.0 [facility] Comment on above: Performed By: #### A BG #### Point of Care testing , Calcium [Mass/Vol] 8.4 mg/dL Low 8.6-10.3 [facility] Comment on above: Performed By: #### A BG #### Point of Care testing , Chloride [Moles/Vol] 89 mmol/L Low 98-107 [facility] Comment on above: Performed By: #### A BG #### Point of Care testing , CO2 [Moles/Vol] 28.0 mmol/L Normal 21.0-31.0 [facility] Comment on above: Performed By: #### A BG #### Point of Care testing , Creatinine [Mass/Vol] 5.60 mg/dL Significan t change up 0.60-1.20 [facility] Comment on above: Performed By: #### A BG #### Point of Care testing , Creatinine Clr Calc Pharmacy 10.45 Normal [facility] Comment on above: Result Comment: PERF ORMED BY: [address] [place] [address] PATHOLOGIST KENNEL AIDE DANII HAYNES M.D. Performed By: #### A BG #### Point of Care testing , GFR/1.73 sq M.predicted MDRD (S/P/Bld) [Vol rate/Area] 7.527 mL/min/{1.73_m2} Normal [facility] Comment on above: Performed By: #### A BG #### Point of Care testing , Glucose [Mass/Vol] 206 mg/dL High 70-100 [facility] Comment on above: Result Comment: [place] Glucose Reference Range is dependent on time and content of last meal. Glucose of more than 200 mg/dL in a nonstressed, ambulatory subject supports the diagnosis of Diabetes Mellitus. ADA recommended reference range Performed By: #### A BG #### Point of Care testing , Potassium Normal 3.5-5.1 [facility] Comment on above: Result Comment: Spec imen hemolyzed, redraw requested Performed By: #### A BG #### Point of Care testing , Sodium [Moles/Vol] 131 mmol/L Low 136-145 [facility] Comment on above: Performed By: #### A BG #### Point of Care testing , Urea nitrogen [Mass/Vol] 33 mg/dL High 7-25 [facility] Comment on above: Performed By: #### A BG #### Point of Care testing , Complete Blood Count Auto Di ffon 09-16-2023 Mean Corpuscular HGB Conc 32.8 g/dL Normal 32.0-35.0 [facility] Comment on above: Performed By: #### C BC #### [address] NRBC% 0.1 /100{WBC} Normal 0-0.5 [facility] Comment on above: Performed By: #### C BC #### [address] Erythrocyte distribution wid th [Ratio] by Automated countOrdered By: Emerald Conn on 09-16-2023 Erythrocyte distribution width (RBC) [Ratio] 14.1 % Normal 11.9-15.3 [facility] Comment on above: Performed By: #### C BC #### [address] Erythrocytes [#/volume] in B lood by Automated countOrdered By: Emerald Conn on 09-16-2023 RBC (Bld) [#/Vol] 3.44 10*6/uL Low 3.60-5.00 [facility] Comment on above: Performed By: #### C BC #### [address] Glucose Poct Glucometerson 0 09-16-2023 Glucose [Mass/Vol] 368 mg/dL Normal [facility] Comment on above: Result Comment: [place] Glucose Reference Range is dependent on time and content of last meal. Glucose of more than 200 mg/dL in a nonstressed, ambulatory subject supports the diagnosis of Diabetes Mellitus. PERFORMED BY: [place] [address] PATHOLOGIST KENNEL AIDE DANII HAYNES M.D. Performed By: #### G LULS #### Point of Care testing , Glucose [Mass/Vol] 335 mg/dL Normal [facility] Comment on above: Result Comment: [place] om Glucose Reference Range is dependent on time and content of last meal. Glucose of more than 200 mg/dL in a nonstressed, ambulatory subject supports the diagnosis of Diabetes Mellitus. PERFORMED BY: [address] [place] [address] PATHOLOGIST KENNEL AIDE DANII HAYNES M.D. Performed By: #### G LULS #### Point of Care testing , Commemt1 Normal [facility] Comment on above: Result Comment: Glu2 : WILL NOTIFY DR/RN Performed By: #### G LULS #### Point of Care testing , Commemt2 Cleaned Meter Normal [facility] Comment on above: Result Comment: PERF ORMED BY: [facility] [address] [facility] [place] [id number] PATHOLOGIST KENNEL AIDE DANII HAYNES M.D. Performed By: #### G LULS #### Point of Care testing , Glucose [Mass/Vol] 336 mg/dL Normal [facility] Comment on above: Result Comment: Champion om Glucose Reference Range is dependent on time and content of last meal. Glucose of more than 200 mg/dL in a nonstressed, ambulatory subject supports the diagnosis of Diabetes Mellitus. Performed By: #### G LULS #### Point of Care testing , Glucose [Mass/Vol] 235 mg/dL Normal [facility] Comment on above: Result Comment: [place] om Glucose Reference Range is dependent on time and content of last meal. Glucose of more than 200 mg/dL in a nonstressed, ambulatory subject supports the diagnosis of Diabetes Mellitus. PERFORMED BY: [address] [place] [id number] PATHOLOGIST KENNEL AIDE DANII HAYNES M.D. Performed By: #### A BG #### Point of Care testing , Hematocrit [Volume Fraction] of Blood by Automated countOrdered By: Emerald Conn on 09-16-2023 Hematocrit (Bld) [Volume fraction] 34.5 % Normal 34.0-46.4 [facility] Comment on above: Performed By: #### C BC #### [facility] [address] Hemoglobin [Mass/volume] in BloodOrdered By: Emerald Conn on 09-16-2023 Hemoglobin (Bld) [Mass/Vol] 11.3 g/dL Low 11.8-15.4 [facility] Comment on above: Performed By: #### C BC #### [facility] [address] Leukocytes [#/volume] correc mary jo for nucleated erythrocytes in Blood by Automated counOrdered By: Emerald Conn on 09-16-2023 WBC corrected for nucl RBC Auto (Bld) [#/Vol] 11.4 10*3/uL 3.8-11.6 [facility] Leukocytes [#/volume] in Blo od by Automated countOrdered By: Emerald Conn on 09-16-2023 WBC (Bld) [#/Vol] 11.4 10*3/uL Normal 3.8-11.6 [facility] Comment on above: Performed By: #### C BC #### [place] [address] [place] Lymphocytes [#/volume] in Bl ood by Automated countOrdered By: Emerald Conn on 09-16-2023 Lymphocytes (Bld) [#/Vol] 2.0 10*3/uL Normal 1.00-4.8 [facility] Comment on above: Performed By: #### C BC #### [facility] [address] [place] [address] [place] Lymphocytes/100 leukocytes i n Blood by Automated countOrdered By: Emerald Conn on 09-16-2023 Lymphocytes/100 WBC (Bld) 17.4 % Normal . [facility] Comment on above: Performed By: #### C BC #### [facility] [address] [place] [address] [place] MCH [Entitic mass] by Automa mary jo countOrdered By: Emerald Conn on 09-16-2023 MCH (RBC) [Entitic mass] 32.9 pg Normal 24.7-34.3 [facility] Comment on above: Performed By: #### C BC #### [address] MCHC Auto (RBC) [Mass/Vol]Or dered By: Emerald Conn on 09-16-2023 MCHC (RBC) [Mass/Vol] 32.8 g/dL 32.0-35.0 [facility] MCV [Entitic volume] by Auto mated countOrdered By: Emerald Conn on 09-16-2023 MCV (RBC) [Entitic vol] 100.2 fL High 80-100 [facility] Comment on above: Performed By: #### C BC #### [address] MR head/brain wo conon 09-15 MR head/brain wo con [facility] [place] [address] [place] [address] MRI Report Signed Patient: Amparo Castorena MR#: [id number] 68 : 1950 Acct:[id number] Age/Sex: 72 / F ADM Date: 09/15/23 Loc: Room: [address] [place] [address] Type: ADM IN Attending Dr: Emerald Conn MD Copies to: DO Emerald Ji MD Ordering Provider: Rodger Tomas DO Date of Service: 09/15/23 MR/MR head/brain wo con: r/o new stroke MR head/brain wo con 09/15/2023 10:45 PM SIGN AND SYMPTOMS: Unresponsive, hypoglycemic PROTOCOL: Multiplanar multisequence MR images of the brain were obtained without IV contrast COMPARISON: None. FINDINGS: Images are degraded by patient motion. Extra axial spaces: Age appropriate. Hemorrhage: None. Ventricular system: Within normal limits. Basal cisterns: Within normal limits and not effaced. Cerebral parenchyma: Normal in signal. Midline shift: None.. Cerebellum: Within normal limits. Brainstem: T2 and FLAIR hyperintense signal is noted in the pontine white matter. Gliosis and encephalomalacia is noted in the anterior left frontal lobe and right frontal and parietal periven tricular white matter extending into the internal capsule and right cerebral peduncle with accompanying volume loss consistent with a remote right sided infarct. Frontal signal changes are presumably related to previous intracranial pressure monitor or shunt. No evidence of acute or subacute ischemia. OTHER: Calvarium: Normal marrow signal. Vascular system: Satisfactory flow voids within the anterior and posterior circulation. Visualized Paranasal sinuses: Within normal limits. Visualized Orbits: Within normal limits. Visualized upper cervical spine: Within normal limits. Sella and skull base: Within normal limits. MR/MR head/brain wo con IMPRESSION: No acute intracranial pathology. There is a remote infarct on the right similar to the prior exam. Gliosis and encephalomalacia is noted in the anterior left frontal lobe which may be related to a previous pressure monitor or ventricular shunt tract. Impression dictated by: Mario Eaton M.D.09/16/2023 9:02 AM Dictation Location: [place] [address] Transcribed By: [facility] 09/16/23901 Dictated By: Mario Eaton II, MD 09/16/23 0843 Signed By: 09/16/23 09 Normal [facility] Neutrophils [#/volume] in Bl ood by Automated countOrdered By: Emerald Conn on 09-16-2023 Neutrophils (Bld) [#/Vol] 8.5 10*3/uL High 1.8-7.7 [facility] Comment on above: Performed By: #### C BC #### [address] No Panel InformationOrdered By: Emerald Conn on 09-16-2023 Bedside Glucose #2 Comment Cleaned meter [facility] Nucleated erythrocytes [Pres ence] in Blood by Automated countOrdered By: Emerald Conn on 09-16-2023 Nucleated RBC Auto Ql (Bld) 0.1 /100{WBC} 0-0.5 [facility] Platelet mean volume [Entiti c volume] in Blood by Automated countOrdered By: Emerald Conn on 09-16-2023 Platelet mean volume (Bld) [Entitic vol] 7.9 fL Normal 6.3-10.7 [facility] Comment on above: Performed By: #### C BC #### [address] Platelets [#/volume] in Bloo d by Automated countOrdered By: Emerald Conn on 09-16-2023 Platelets (Bld) [#/Vol] 120 10*3/uL Low 150-450 [facility] Comment on above: Performed By: #### C BC #### [address] Redraw Potassiumon Potassium [Moles/Vol] 4.8 mmol/L Normal 3.5-5.1 [facility] Comment on above: Result Comment: PERF ORMED BY: [place] [address] PATHOLOGIST KENNEL AIDE DANII HAYNES M.D. Performed By: #### R EDRAW K #### [address] Activated partial thrombopla stin time (aPTT) in platelet poor plasma by coagulation aOrdered By: Halle Jo on 09-15-2023 aPTT Coag (PPP) [Time] 28.2 s 25.1-36.5 [facility] Comment on above: A hematocrit value g reater than 55% may lead to inaccurate results in coagulation testing. Patients having hematocrit values >55% require a special collection tube for coagulation studies. Please contact the laboratory at [phone] for redraw instructions. Alanine aminotransferase [En zymatic activity/volume] in Serum or PlasmaOrdered By: Halle Jo on 09-15-2023 ALT [Catalytic activity/Vol] 23 U/L Normal 7-52 [facility] Comment on above: Performed By: #### C MP #### [address] Albumin [Mass/volume] in Ser um or Plasma by Bromocresol green (BCG) dye binding methoOrdered By: Halle Jo on 09-15-2023 Albumin BCG dye [Mass/Vol] 3.5 g/dL 3.5-5.7 [facility] Alkaline phosphatase [Enzyma tic activity/volume] in Serum or PlasmaOrdered By: Halle Jo on 09-15-2023 ALP [Catalytic activity/Vol] 79 U/L Normal 34-104 [facility] Comment on above: Performed By: #### C MP #### [address] Ammonia [Moles/volume] in Pl asmaOrdered By: Halle Jo on 09-15-2023 Ammonia (P) [Moles/Vol] 26 umol/L Normal 11-35 [facility] Comment on above: Result Comment: PERF ORMED BY: [place] [address] PATHOLOGIST KENNEL AIDE DANII HAYNES M.D. Performed By: #### G LULS #### Point of Care testing , Amphetamine Screen Ql (U)Ord ered By: Halle Jo on 09-15-2023 Amphetamines Ql (U) Negative Negative [facility] Arterial Blood Gason 024 ABG Base Excess -3.1 mmol/L Low -3.0-3.0 [facility] Comment on above: Performed By: #### A BG #### Point of Care testing , ABG Frac Inspired O2 28 % Normal [facility] Comment on above: Performed By: #### A BG #### Point of Care testing , ABG Liter Flow 2 Normal [facility] Comment on above: Performed By: #### A BG #### Point of Care testing , ABG Oxygen Content 6.7 mmol/L Normal 6.6-9.7 [facility] Comment on above: Performed By: #### A BG #### Point of Care testing , ABG Oxygen Saturation 98.8 % Normal 95.0-100.0 [facility] Comment on above: Performed By: #### A BG #### Point of Care testing , ABG PCO2 41.9 mm[Hg] Normal 35.0-45.0 [facility] Comment on above: Performed By: #### A BG #### Point of Care testing , ABG PH 7.35 Normal 7.35-7.45 [facility] Comment on above: Performed By: #### A BG #### Point of Care testing , ABG PO2 165.8 mm[Hg] Off scale high 80.0-100.0 [facility] Comment on above: Performed By: #### A BG #### Point of Care testing , Oxygen Device Nasal Cannula Normal [facility] Comment on above: Performed By: #### A BG #### Point of Care testing , Respiratory Critical Normal [facility] Comment on above: Result Comment: Crit ical Value called on: 09/15/2023 at 10:36 PERFORMED BY: [place] [address] PATHOLOGIST KENNEL AIDE DANII HAYNES M.D. Performed By: #### A BG #### Point of Care testing , VBG Draw Site Left Radial Normal [facility] Comment on above: Performed By: #### A BG #### Point of Care testing , Arterial Blood GasOrdered By : Halle Jo on 09-15-2023 CO2 [Moles/Vol] 23.7 mmol/L Normal 23.0-27.0 [facility] Comment on above: Performed By: #### A BG #### Point of Care testing , HCO3 (Bld) [Moles/Vol] 22.4 mmol/L Low 23.0-29.0 [facility] Comment on above: Performed By: #### A BG #### Point of Care testing , Aspartate aminotransferase [ Enzymatic activity/volume] in Serum or PlasmaOrdered By: Halle Jo on 09-15-2023 AST [Catalytic activity/Vol] 13 U/L Normal 13-39 [facility] Comment on above: Performed By: #### C MP #### [address] Automated basophil %Ordered By: Halle Jo on 05-22-2024 Basophils/100 WBC (Bld) 0.9 % Normal . [facility] Comment on above: Performed By: #### C MP #### [address] Automated basophil countOrde red By: Halle Bullimore on 09-15-2023 Basophils (Bld) [#/Vol] 0.1 10*3/uL Normal 0.0-0.2 [facility] Comment on above: Result Comment: PERF ORMED BY: [place] [address] PATHOLOGIST KENNEL AIDE DANII HAYNES M.D. Performed By: #### C MP #### [address] Automated blood monocyte cou ntOrdered By: Halle Bullimore on 09-15-2023 Monocytes (Bld) [#/Vol] 0.7 10*3/uL Normal 0.0-0.8 [facility] Comment on above: Performed By: #### C MP #### [address] Automated eosinophil %Ordere d By: Halle Bullimore on 09-15-2023 Eosinophils/100 WBC (Bld) 2.1 % Normal . [facility] Comment on above: Performed By: #### C MP #### [address] Automated eosinophil countOr dered By: Halle Bullimore on 09-15-2023 Eosinophils (Bld) [#/Vol] 0.2 10*3/uL Normal 0.0-0.45 [facility] Comment on above: Performed By: #### C MP #### [address] Automated monocyte %Ordered By: Halle Bullimore on 09-15-2023 Monocytes/100 WBC (Bld) 7.6 % Normal . [facility] Comment on above: Performed By: #### C MP #### [address] Automated neutrophil %Ordere d By: Halle Bullimore on 09-15-2023 Neutrophils/100 WBC (Bld) 69.8 % Normal . [facility] Comment on above: Performed By: #### C MP #### [facility] [address] [place] [address] Bacteria [Presence] in Urine by AutomatedOrdered By: Halle Bullimore on 09-15-2023 Bacteria Auto Ql (U) 4+ [HPF] None Seen [facility] Barbiturates [Presence] in U rine by Screen methodOrdered By: Halle Bullimore on 09-15-2023 Barbiturates Screen Ql (U) Negative Negative [facility] Benzodiazepines Screen Ql (U )Ordered By: Halle Bullimore on 09-15-2023 Benzodiazepines Ql (U) Negative Negative [facility] Benzoylecgonine [Presence] i n Urine by Screen methodOrdered By: Halle Bullimore on 09-15-2023 Benzoylecgonine Screen Ql (U) Negative Negative [facility] Bilirubin Test strip Ql (U)O rdered By: Halle Bullimore on 09-15-2023 Bilirubin Ql (U) Negative Negative [facility] Bilirubin.total [Mass/volume ] in Serum or PlasmaOrdered By: Halle Bullimore on 09-15-2023 Bilirubin [Mass/Vol] 0.5 mg/dL Normal 0.3-1.0 [facility] Comment on above: Performed By: #### C MP #### [facility] [address] [place] [address] [place] Blood Cultureon 09-15-2023 Bacteria identified Cx Nom (Bld) NO GROWTH 5 DAYS PERFORMED BY: [place] [address] PATHOLOGIST KENNEL AIDE DANII HAYNES M.D. Normal [facility] Comment on above: Performed By: #### C MP #### [address] Bacteria identified Cx Nom (Bld) NO GROWTH 5 DAYS PERFORMED BY: [place] [address] PATHOLOGIST KENNEL AIDE DANII Menard [facility] Comment on above: Performed By: #### C #### [address] angio neckon 09-15-2023 CT angio neck [facility] [place] [address] [place] [address] CT Scan Report Signed Patient: Amparo Castorena MR#: [id number] 68 : 1950 Acct:[id number] Age/Sex: 72 / F ADM Date: 09/15/23 Loc: ER Room: Type: [facility] ER Attending Dr: Copies to: DELORIS Antonio Ordering Provider: DELORIS Antonio Date of Service: 09/15/23 CT/CT angio head: acute stroke/neuro deficits ([id number]) CT/CT angio neck: acute stroke/neuro deficits CT angio head, CT angio neck 09/15/2023 9:37 AM SIGNS AND SYMPTOMS: Hyperglycemia, unresponsive CONTRAST: 72 mL of intravenous Isovue-370 TECHNIQUE: Multi-detector CT angiography axial slices of the head and neck were obtained during intravenous administration of IV contrast material. Sagittal, coronal, and 3-D reconstructions were performed and viewed on a separate workstation. CT was performed with one or more of the following dose reduction techniques: Automated exposure control, adjustment of the mA and/or kV according to patient size, or use of iterative reconstruction technique. Stenoses were measured using the NASCET criteria. COMPARISON: Noncontrast CT from the same date. FINDINGS: CTA HEAD: The superior cerebellar arteries, posterior inferior cerebellar arteries, and the basilar artery are within normal limits. The posterior cerebral arteries are unremarkable. Calcified plaque is noted in the intracranial segments of the internal carotid arteries contributing to mild multifocal narrowing. There are normal anterior and middle cerebral arteries. Anterior com municating artery is patent. Posterior communicating arteries are present. The deep venous system and dural venous systems appear to be patent. No bony abnormalities are appreciated. CTA NECK: There is a normal three-vessel arch configuration. Calcified plaque is noted in the thoracic aorta and origins of the great vessels without significant stenosis. Calcified plaque is noted in the origins of the vertebral arteries contributing to mild to moderate narrowing bilaterally. Calcified plaque is noted in the V2 segment of the right vertebral artery with mild stenosis. The vertebral arteries are otherwise normal in course and caliber up to the skull base. Calcified plaque is noted in the carotid bifurcations. There is motion artifact at the right carotid bifurcation partially obscuring assessment of stenosis. This appears to measure approximately 50% on the right. There is approximately 70% stenosis of the proximal left internal carotid artery. Visualized lung parenchyma is clear. Degenerative changes are noted in the cervical and upper thoracic spine. No acute bony abnormalities are identified. The paraspinous soft tissues are within normal limits. Heterogeneous nodules are noted in the thyroid similar which are calcified. The largest measures 1.3 cm in greatest dimension on the left. This most likely represents multinodular goiter. Nonemergent ultrasound follow-up is recommended however as malignancy is not excluded. CT/CT angio head IMPRESSION: Calcified plaque is noted in the carotid bifurcations. There is motion artifact at the right carotid bifurcation partially obscuring assessment of stenosis. This appears to measure approximately 50% on the right. There is approximately 70% stenosis of the proximal left internal carotid artery. There is no dissection, aneurysm dilatation, or occlusion. Impression dictated by: Mario Eaton M.D.09/15/2023 10:25 AM Dictation Location: [place] [address] Transcribed By: [facility] 09/15/23 1025 Dictated By: Mario Eaton II, MD 09/15/23 1017 Signed By: 09/15/23 1025 Normal [facility] CT head stroke alert michael james 09-15-2023 CT head stroke alert wo elijah [facility] [place] [address] [place] [address] CT Scan Report Signed Patient: Amparo Castorena MR#: [id number] 68 : 1950 Acct:[id number] Age/Sex: 72 / F ADM Date: 09/15/23 Loc: ER Room: Type: [facility] ER Attending Dr: Copies to: DELORIS Antonio Ordering Provider: DELORIS Antonio Date of Service: 09/15/23 CT/CT head stroke alert wo con: acute stroke/neuro deficits CT head stroke alert wo con 09/15/2023 9:43 AM SIGNS AND SYMPTOMS: acute stroke/neuro deficits, unresponsive TECHNIQUE:Multi-detector CT axial slices of the brain were obtained without IV contrast. CT was performed with one or more of the following dose reduction techniques: Automated exposure control, adjustment of the mA and/or kV according to patient size, or use of iterative reconstruction technique. COMPARISON: None. FINDINGS: There is no shift of the midline structures, acute intracranial bleeding, mass effects, or evidence of acute ischemia. There is gliosis and encephalomalacia in the right frontal and parietal periventricular white matter and deep powell nuclei suggesting a remote infarct. There is encephalomalacia in the left frontal lobe along a previous left frontal ventricular shunt tract. The ventricles are mildly prominent, right greater than left. This is presumably secondary to mild global volume loss. No comparisons are available at the current time however. Vascular calcifications are present in the V4 segments of the vertebral arteries and intracranial segments of the internal carotid arteries. The brainstem and the cerebellum are unremarkable. The visualized intraorbital contents, the visualized paranasal sinuses, and the infratemporal soft tissues show no acute abnormality. The osseous structures in the skull base and the calvarium show no abnormality. CT/CT head stroke alert wo con IMPRESSION: No acute intracranial pathology. Findings suggest a remote right-sided infarct and previous left frontal approach ventricular shunt or intracranial pressure monitor placement. The shunt/monitor is no longer present. Findings were discussed with Halle below more at 9:48 AM on 09/15/2023 Impression dictated by: Mario Eaton M.D.09/15/2023 9:52 AM Dictation Location: [place] [address] Transcribed By: SY 09/15/23951 Dictated By: Mario Eaton II, MD 09/15/2347 Signed By: 09/15/23951 Normal [facility] Calcium [Mass/volume] in Ser um or PlasmaOrdered By: Halle Jo on 09-15-2023 Calcium [Mass/Vol] 8.5 mg/dL Low 8.6-10.3 [facility] Comment on above: Performed By: #### C MP #### [address] Cannabinoids [Presence] in U rine by Screen methodOrdered By: Halle Jo on 09-15-2023 Cannabinoids Screen Ql (U) Negative Negative [facility] Comment on above: These are unconfirme d results and should not be used for legal purposes. Drug Cut-Off Concentration: AMPH 1000 ng/mL ELAINE 200 ng/mL ANDREW 200 ng/mL COCM 300 ng/mL OP 300 ng/mL PCP 25 ng/mL THC 20 ng/mL Capillary blood glucose lilia urement by glucometer (mass/volume)Ordered By: Halle Jo on 09-15-2023 Glucose [Mass/Vol] 183 mg/dL Normal [facility] Comment on above: Random Glucose Refer ence Range is dependent on time and content of last meal. Glucose of more than 200 mg/dL in a nonstressed, ambulatory subject supports the diagnosis of Diabetes Mellitus. Result Comment: [facility] om Glucose Reference Range is dependent on time and content of last meal. Glucose of more than 200 mg/dL in a nonstressed, ambulatory subject supports the diagnosis of Diabetes Mellitus. PERFORMED BY: [address] [place] [address] PATHOLOGIST KENNEL AIDE DANII HAYNES M.D. Performed By: #### A BG #### Point of Care testing , Carbon dioxide, total [Moles /volume] in Serum or PlasmaOrdered By: Halle Jo on 09-15-2023 CO2 [Moles/Vol] 29.2 mmol/L Normal 21.0-31.0 [facility] Comment on above: Performed By: #### C MP #### [facility] [address] [place] [id number] [place] Chloride [Moles/volume] in S alida or PlasmaOrdered By: Halle Jo on 09-15-2023 Chloride [Moles/Vol] 93 mmol/L Low 98-107 [facility] Comment on above: Performed By: #### C MP #### [facility] [address] [place] [id number] [place] Color of Urine by AutoOrdere d By: Halle Jo on 09-15-2023 Color (U) Yellow Normal Yellow [facility] Comment on above: Order Comment: Name Collection Type:: Yang Catheter Performed By: #### C MP #### [address] Complete Blood Count Auto Di ffon 09-15-2023 Mean Corpuscular HGB Conc 32.8 g/dL Normal 32.0-35.0 [facility] Comment on above: Performed By: #### C MP #### [address] Monocytes/100 WBC (Bld) 20.97 % High 0.00-20.00 [facility] Comment on above: Result Comment: For adults in ED, MDW > 20.0 may be associated with a higher risk of sepsis during the first 12 hrs of hospital admission Performed By: #### C MP #### [address] NRBC% 0.0 /100{WBC} Normal 0-0.5 [facility] Comment on above: Performed By: #### C MP #### [address] Comprehensive Metabolic Pane tamika 09-15-2023 Albumin [Mass/Vol] 3.5 g/dL Normal 3.5-5.7 [facility] Comment on above: Performed By: #### C MP #### [address] Creatinine Clr Calc Pharmacy 8.21 Normal [facility] Comment on above: Result Comment: PERF ORMED BY: [place] [address] PATHOLOGIST KENNEL AIDE DANII HAYNES M.D. Performed By: #### C MP #### [address] GFR/1.73 sq M.predicted MDRD (S/P/Bld) [Vol rate/Area] 5.144 mL/min/{1.73_m2} Normal [facility] Comment on above: Performed By: #### C MP #### [place] [address] [place] Creatine kinase [Enzymatic a ctivity/volume] in Serum or PlasmaOrdered By: Halle Jo on 09-15-2023 CK [Catalytic activity/Vol] 54 U/L Normal 30-223 [facility] Comment on above: Performed By: #### C MP #### [address] Creatinine [Mass/volume] in Serum or PlasmaOrdered By: Halle Jo on 09-15-2023 Creatinine [Mass/Vol] 7.69 mg/dL High 0.60-1.20 [facility] Comment on above: Performed By: #### C MP #### [place] [address] [place] Dipstick and Microscopicon 0 09-15-2023 Appearance (U) Turbid Critically abnormal Clear [facility] Comment on above: Order Comment: Name Collection Type:: Yang Catheter Performed By: #### C MP #### [address] Bacteria,Urine 4+ High None Seen [facility] Comment on above: Order Comment: Name Collection Type:: Yang Catheter Performed By: #### C MP #### [place] [address] [place] Bilirubin,Urine Negative Normal Negative [facility] Comment on above: Order Comment: Name Collection Type:: Yang Catheter Performed By: #### C MP #### [place] [address] [place] Glucose Ql (U) 250 mg/dL High Normal [facility] Comment on above: Order Comment: Name Collection Type:: Yang Catheter Performed By: #### C MP #### [place] [address] [place] Hyaline Casts,Urine 0-8 Normal 0-8 [facility] Comment on above: Order Comment: Name Collection Type:: Yang Catheter Performed By: #### C MP #### [place] [address] [place] Ketones Ql (U) Negative Normal Negative [facility] Comment on above: Order Comment: Name Collection Type:: Yang Catheter Performed By: #### C MP #### [address] Leukocyte esterase Test strip Ql (U) 4+ High Negative [facility] Comment on above: Order Comment: Name Collection Type:: Yang Catheter Performed By: #### C MP #### [place] [address] [place] Nitrite,Urine Negative Normal Negative [facility] Comment on above: Order Comment: Name Collection Type:: Yang Catheter Performed By: #### C MP #### [address] Occult Blood,Urine 2+ High Negative [facility] Comment on above: Order Comment: Name Collection Type:: Yang Catheter Result Comment: PERF ORMED BY: [place] [address] PATHOLOGIST KENNEL AIDE DANII HAYNES M.D. Performed By: #### C MP #### [address] RBC,Urine 5-9 High 0-4 [facility] Comment on above: Order Comment: Name Collection Type:: Yang Catheter Performed By: #### C MP #### [address] Specificy [place],Urine 1.015 Normal 1.001-1.03 0 [facility] Comment on above: Order Comment: Name Collection Type:: Yang Catheter Performed By: #### C MP #### [address] Squamous Epithelial Cell,Urine 5-9 High 0-2 [facility] Comment on above: Order Comment: Name Collection Type:: Yang Catheter Performed By: #### C MP #### [address] Urobilinogen,Urine Normal Normal Normal [facility] Comment on above: Order Comment: Name Collection Type:: Yang Catheter Performed By: #### C MP #### [address] WBC,Urine Innumerable High 0-4 [facility] Comment on above: Order Comment: Name Collection Type:: Yang Catheter Performed By: #### C MP #### [address] Yeast,Urine None Seen Normal None Seen [facility] Comment on above: Order Comment: Name Collection Type:: Yang Catheter Result Comment: PERF ORMED BY: [place] [address] PATHOLOGIST KENNEL AIDE DANII HAYNES M.D. Performed By: #### C MP #### [address] Drug Screen,Urineon 09-15-19 24 Amphetamine Screen,Urine Negative Normal Negative [facility] Comment on above: Performed By: #### C MP #### [address] Barbiturate Screen,Urine Negative Normal Negative [facility] Comment on above: Performed By: #### C MP #### [address] Benzodiazepines Screen,Urine Negative Normal Negative [facility] Comment on above: Performed By: #### C MP #### [address] Cannabinoid Screen,Urine Negative Normal Negative [facility] Comment on above: Result Comment: Thes e are unconfirmed results and should not be used for legal purposes. Drug Cut-Off Concentration: AMPH 1000 ng/mL ELAINE 200 ng/mL ANDREW 200 ng/mL COCM 300 ng/mL OP 300 ng/mL PCP 25 ng/mL THC 20 ng/mL PERFORMED BY: [place] [address] PATHOLOGIST KENNEL AIDE DANII HAYNES M.D. Performed By: #### C MP #### [address] Cocaine Screen,Urine Negative Normal Negative [facility] Comment on above: Performed By: #### C MP #### [address] Opiate Screen,Urine Negative Normal Negative [facility] Comment on above: Performed By: #### C MP #### [address] Phencyclidine Screen,Urine Negative Normal Negative [facility] Comment on above: Performed By: #### C MP #### [address] ECG 12 lead ECGon 09-15-2023 ECG 12 lead ECG [facility] [place] [address] [place] [address] Electrocardiograph Report Signed Patient: Amparo Castorena MR#: [id number] 68 : 1950 Acct:[id number] Age/Sex: 72 / F ADM Date: 09/15/23 Loc: ER Room: Type: [facility] ER Attending Dr: Ordering Provider: DELORIS Antonio Date of Service: 09/15/23 ECG/ECG 12 lead ECG: Neuro Symptoms/Deficit Copies to: Test Reason : Blood Pressure : 169/069 mmHG Vent. Rate : 071 BPM Atrial Rate : 071 BPM P-R Int : 224 ms QRS Dur : 090 ms QT Int : 462 ms P-R-T Axes : 061 029 081 degrees QTc Int : 502 ms Sinus rhythm with 1st degree AV block Prolonged QT Abnormal ECG When compared with ECG of 01-AUG-2022 06:47, No significant change was found Confirmed by Lex Byrd DO ([id number]) on 09/15/2023 1:43:00 PM Referred By: Electronically Signed By:Lex Byrd DO Transcribed By: MUS Signed By Lex Byrd DO 4 1343 Normal [facility] Erythrocyte distribution wid th [Ratio] by Automated countOrdered By: Halle Jo on 09-15-2023 Erythrocyte distribution width (RBC) [Ratio] 14.6 % Normal 11.9-15.3 [facility] Comment on above: Performed By: #### C MP #### [place] [id number] [place] Erythrocytes [#/area] in Uri ne sediment by Automated countOrdered By: Halle Farmerimore on 09-15-2023 RBC Auto (Urine sed) [#/Area] 5-9 [HPF] 0-4 [facility] Erythrocytes [#/volume] in B lood by Automated countOrdered By: Halle Bullimore on 09-15-2023 RBC (Bld) [#/Vol] 3.10 10*6/uL Low 3.60-5.00 [facility] Comment on above: Performed By: #### C MP #### [facility] [address] [place] [address] Ethanol [Mass/volume] in Ser um or PlasmaOrdered By: Halle Farmerimore on 09-15-2023 Ethanol [Mass/Vol] mg/dL Normal [facility] Comment on above: Performed By: #### C MP #### [facility] [address] [place] [address] Ethanol [Mass/Vol] TNP [facility] Comment on above: Test not performed Ethyl Alcohol Profileon 08-25 Percent Ethanol Not performed Normal [facility] Comment on above: Result Comment: PERF ORMED BY: [place] [address] PATHOLOGIST KENNEL AIDE DANII HAYNES M.D. Performed By: #### C MP #### [facility] [address] [place] [address] Glucose Poct Glucometerson 0 09-15-2023 Glucose [Mass/Vol] 284 mg/dL Normal [facility] Comment on above: Result Comment: [facility] Glucose Reference Range is dependent on time and content of last meal. Glucose of more than 200 mg/dL in a nonstressed, ambulatory subject supports the diagnosis of Diabetes Mellitus. PERFORMED BY: [place] [address] PATHOLOGIST KENNEL AIDE DANII HAYNES M.D. Performed By: #### G LULS #### Point of Care testing , Glucose [Mass/Vol] 247 mg/dL Normal [facility] Comment on above: Result Comment: [facility] om Glucose Reference Range is dependent on time and content of last meal. Glucose of more than 200 mg/dL in a nonstressed, ambulatory subject supports the diagnosis of Diabetes Mellitus. PERFORMED BY: [place] [address] PATHOLOGIST KENNEL AIDE DANII HAYNES M.D. Performed By: #### G CAPRICE #### Point of Care testing , Glucose [Mass/volume] in Ser um or PlasmaOrdered By: Halle Jo on 09-15-2023 Glucose [Mass/Vol] 257 mg/dL High 70-100 [facility] Comment on above: ADA recommended refe rence rangeRandom Glucose Reference Range is dependent on time and content of last meal. Glucose of more than 200 mg/dL in a nonstressed, ambulatory subject supports the diagnosis of Diabetes Mellitus. Result Comment: [facility] om Glucose Reference Range is dependent on time and content of last meal. Glucose of more than 200 mg/dL in a nonstressed, ambulatory subject supports the diagnosis of Diabetes Mellitus. ADA recommended reference range Performed By: #### C MP #### [facility] [address] [place] [address] Hematocrit [Volume Fraction] of Blood by Automated countOrdered By: Halle Jo on 09-15-2023 Hematocrit (Bld) [Volume fraction] 31.4 % Low 34.0-46.4 [facility] Comment on above: Performed By: #### C MP #### [place] [address] [place] Hemoglobin [Mass/volume] in BloodOrdered By: Halle Jo on 09-15-2023 Hemoglobin (Bld) [Mass/Vol] 10.3 g/dL Low 11.8-15.4 [facility] Comment on above: Performed By: #### C MP #### [place] [address] [place] INR in Platelet poor plasma by Coagulation assayOrdered By: Halle Jo on 09-15-2023 INR Coag (PPP) [Relative time] 1.0 {INR} Normal [facility] Comment on above: INR Therapeutic Rang [...] with mechanical heart valves: 3 - 4.5 Result Comment: INR Therapeutic Range A) Pre- [...] Ketones Auto test strip (U) [Mass/Vol]Ordered By: Halle Jo on 09-15-2023 Ketones (U) [Mass/Vol] Negative Negative [facility] - UrinalysisOrder ed By: Halle Jo on 09-15-2023 Hyaline casts LM Ql (Urine sed) 0-8 [LPF] 0-8 [facility] Lactate [Moles/volume] in Se rum or PlasmaOrdered By: Halle Jo on 09-15-2023 Lactate [Moles/Vol] 1.3 mmol/L Normal 0.5-2.2 [facility] Comment on above: Result Comment: PERF ORMED BY: [place] [address] PATHOLOGIST KENNEL AIDE DANII HAYNES M.D. Performed By: #### C MP #### [address] Leukocytes [#/area] in Urine sediment by Automated countOrdered By: Halle Jo on 09-15-2023 WBC Auto (Urine sed) [#/Area] Innumerable [HPF] 0-4 [facility] Leukocytes [#/volume] correc mary jo for nucleated erythrocytes in Blood by Automated counOrdered By: Halle Jo on 09-15-2023 WBC corrected for nucl RBC Auto (Bld) [#/Vol] 9.4 10*3/uL 3.8-11.6 [facility] Leukocytes [#/volume] in Blo od by Automated countOrdered By: Halle Bullimore on 09-15-2023 WBC (Bld) [#/Vol] 9.4 10*3/uL Normal 3.8-11.6 [facility] Comment on above: Performed By: #### C MP #### [address] Lymphocytes [#/volume] in Bl ood by Automated countOrdered By: Halle Farmerimore on 09-15-2023 Lymphocytes (Bld) [#/Vol] 1.9 10*3/uL Normal 1.00-4.8 [facility] Comment on above: Performed By: #### C MP #### [address] Lymphocytes/100 leukocytes i n Blood by Automated countOrdered By: Halle Farmerimore on 09-15-2023 Lymphocytes/100 WBC (Bld) 19.6 % Normal . [facility] Comment on above: Performed By: #### C MP #### [address] MCH [Entitic mass] by Automa mary jo countOrdered By: Halle Jo on 09-15-2023 MCH (RBC) [Entitic mass] 33.1 pg Normal 24.7-34.3 [facility] Comment on above: Performed By: #### C MP #### [address] MCHC Auto (RBC) [Mass/Vol]Or dered By: Halle Bullimore on 09-15-2023 MCHC (RBC) [Mass/Vol] 32.8 g/dL 32.0-35.0 [facility] MCV [Entitic volume] by Auto mated countOrdered By: Halle Jo on 09-15-2023 MCV (RBC) [Entitic vol] 101.1 fL High 80-100 [facility] Comment on above: Performed By: #### C MP #### [facility] [address] [id number] [place] Monocyte distribution width [Entitic volume] in Blood by AutomatedOrdered By: Halle Jo on 09-15-2023 Monocyte distribution width Auto (Bld) [Entitic vol] 20.97 % 0.00-20.00 [facility] Comment on above: For adults in ED, MD W > 20.0 may be associated with a higher risk of sepsis during the first 12 hrs of hospital admission Neutrophils [#/volume] in Bl ood by Automated countOrdered By: Halle Jo on 09-15-2023 Neutrophils (Bld) [#/Vol] 6.6 10*3/uL Normal 1.8-7.7 [facility] Comment on above: Performed By: #### C MP #### [facility] [address] [id number] [place]UST Nitrite Test strip Ql (U)Ord ered By: Halle Jo on 09-15-2023 Nitrite Ql (U) Negative Negative [facility] No Panel InformationOrdered By: Halle Jo on 09-15-2023 Arterial Blood Base Excess -3.1 mmol/L -3.0-3.0 [facility] Arterial Blood Oxygen Content 6.7 mmol/L 6.6-9.7 [facility] Arterial Blood Oxygen Saturation 98.8 % 95.0-100.0 [facility] Arterial Blood Partial Pressure CO2 41.9 mm[Hg] 35.0-45.0 [facility] Arterial Blood Partial Pressure O2 165.8 mm[Hg] 80.0-100.0 [facility] Arterial Blood pH 7.35 7.35-7.45 [facility] Blood Gas Critical Value See comment [facility] Comment on above: Critical Value thomas d on: 09/15/2023 at 10:36 Blood Gas Liter Flow 2 L/min [facility] Blood Gas Sample Site Left radial Fi [facility] FiO2 28 % [facility] Oxygen Delivery Device Nasal cannula [facility] Estimated GFR (CKD-EPI) 5.144 mL/Min [facility] Creatinine Clearance (Chem 8.21 [facility] Nucleated erythrocytes [Pres ence] in Blood by Automated countOrdered By: Halle Jo on 09-15-2023 Nucleated RBC Auto Ql (Bld) 0.0 /100{WBC} 0-0.5 [facility] Opiates [Presence] in Urine by Screen methodOrdered By: Halle Jo on 09-15-2023 Opiates Screen Ql (U) Negative Negative [facility] Partial Thromboplastin Timeo n 09-15-2023 aPTT Coag (Bld) [Time] 28.2 s Normal 25.1-36.5 [facility] Comment on above: Result Comment: A he matocrit value greater than 55% may lead to inaccurate results in coagulation testing. Patients having hematocrit values >55% require a special collection tube for coagulation studies. Please contact the laboratory at [phone] for redraw instructions. PERFORMED BY: [address] [place] [address] PATHOLOGIST KENNEL AIDE DANII HAYNES M.D. Performed By: #### G LUMAMIE #### Point of Care testing , Phencyclidine Screen Ql (U)O rdered By: Halle Jo on 09-15-2023 Phencyclidine Ql (U) Negative Negative [facility] Platelet mean volume [Entiti c volume] in Blood by Automated countOrdered By: Halle Jo on 09-15-2023 Platelet mean volume (Bld) [Entitic vol] 8.0 fL Normal 6.3-10.7 [facility] Comment on above: Performed By: #### C MP #### [facility] [address] [place] [address] [place] Platelets [#/volume] in Bloo d by Automated countOrdered By: Halle Jo on 09-15-2023 Platelets (Bld) [#/Vol] 118 10*3/uL Low 150-450 [facility] Comment on above: Performed By: #### C MP #### [facility] [address] [place] [address] [place] Potassium [Moles/volume] in Serum or PlasmaOrdered By: Halle Bullimore on 09-15-2023 Potassium [Moles/Vol] 4.5 mmol/L Normal 3.5-5.1 [facility] Comment on above: Performed By: #### C MP #### [address] Protein [Mass/volume] in Ser um or PlasmaOrdered By: Halle Farmerimore on 09-15-2023 Protein [Mass/Vol] 7.9 g/dL Normal 6.4-8.9 [facility] Comment on above: Performed By: #### C MP #### [address] Prothrombin time (PT)Ordered By: Halle Jo on 09-15-2023 PT Coag (PPP) [Time] 11.8 s Normal 9.0-12.9 [facility] Comment on above: A hematocrit value g reater than 55% may lead to inaccurate results in coagulation testing. Patients having hematocrit values >55% require a special collection tube for coagulation studies. Please contact the laboratory at [phone] for redraw instructions. Result Comment: A he matocrit value greater than 55% may lead to inaccurate results in coagulation testing. Patients having hematocrit values >55% require a special collection tube for coagulation studies. Please contact the laboratory at [phone] for redraw instructions. Performed By: #### G LULS #### Point of Care testing , Serum globulin measurement b y calculation (mass/volume)Ordered By: Halle Jo on 09-15-2023 Globulin (S) [Mass/Vol] 4.4 g/dL [facility] Comment on above: Performed By: #### C MP #### [address] Serum or plasma albumin/glob ulin mass ratioOrdered By: Halle Darianalexore on 09-15-2023 Albumin/Globulin [Mass ratio] 0.8 {ratio} [facility] Comment on above: Performed By: #### C MP #### [address] Serum or plasma anion gap de terminationOrdered By: Halle Bullimore on 09-15-2023 Anion gap [Moles/Vol] 16.3 mmol/L High 6.0-15.0 [facility] Comment on above: Performed By: #### C MP #### [address] Sodium [Moles/volume] in Ser um or PlasmaOrdered By: Halle Bullimore on 09-15-2023 Sodium [Moles/Vol] 134 mmol/L Low 136-145 [facility] Comment on above: Performed By: #### C MP #### [address] Specific gravity Auto test s trip (U) [Rel density]Ordered By: Hallebonnie Farmerdharmesh on 09-15-2023 Specific gravity (U) [Rel density] 1.015 1.001-1.03 0 [facility] Squamous epithelial cells de tection in urine sediment by light microscopyOrdered By: Halle Sandro on 09-15-2023 Epithelial cells.squamous LM Ql (Urine sed) 5-9 [HPF] 0-2 [facility] Thyrotropin [Units/volume] i n Serum or PlasmaOrdered By: Rodger Tomas on 09-15-2023 TSH Qn 1.46 m[IU]/L Normal 0.45-5.33 [facility] Comment on above: Result Comment: PERF ORMED BY: [place] [address] PATHOLOGIST KENNEL AIDE DANII HAYNES M.D. Performed By: #### A BG #### Point of Care testing , Troponin I High Sensitivityo n 09-15-2023 Troponin I High Sensitivity 6.2 pg/mL Normal 0.0-15.0 [facility] Comment on above: Result Comment: PERF ORMED BY: [place] [id number] PATHOLOGIST KENNEL AIDE DANII HAYNES M.D. Performed By: #### C MP #### [place] [id number] [place] Troponin I.cardiac [Mass/vol ume] in Serum or Plasma by Detection limit <= 0.01 ng/Ordered By: Halle Jo on 09-15-2023 Troponin I.cardiac DL <= 0.01 ng/mL [Mass/Vol] 6.2 pg/mL 0.0-15.0 [facility] Urea nitrogen [Mass/volume] in Serum or PlasmaOrdered By: Halle Jo on 09-15-2023 Urea nitrogen [Mass/Vol] 54 mg/dL High 7-25 [facility] Comment on above: Performed By: #### C MP #### [facility] [address] Urine Cultureon 09-15-2023 Bacteria identified Cx Nom (U) ORGANISM: Lactobacillus species (O:LACSP) [place] Count 50,000 Organism Comments Organism not Routinely Tested for Susceptibilities PERFORMED BY: [place] [address] PATHOLOGIST KENNEL AIDE DANII HAYNES M.D. Normal [facility] Comment on above: Performed By: #### C MP #### [facility] [address] Urine clarity by refractomet ry automatedOrdered By: Halle Jo on 09-15-2023 Clarity Refractometry automated (U) Turbid Clear [facility] Urine culture routineOrdered By: Halle Jo on 09-15-2023 Bacteria identified Cx Nom (U) Lactobacillus species [facility] Urine glucose measurement by automated test strip (mass/volume)Ordered By: Halle Jo on 09-15-2023 Glucose Auto test strip (U) [Mass/Vol] 250 mg/dL Normal [facility] Urine hemoglobin detection b y automated test stripOrdered By: Halle Jo on 09-15-2023 Hemoglobin Auto test strip Ql (U) 2+ Negative [facility] Urine leukocyte esterase det ection by automated test stripOrdered By: Halle Jo on 09-15-2023 Leukocyte esterase Auto test strip Ql (U) 4+ Negative [facility] Urine pH measurement by auto mated test stripOrdered By: Halle Jo on 09-15-2023 pH (U) 5.5 [pH] Normal 5.0-9.0 [facility] Comment on above: Order Comment: Name Collection Type:: Yang Catheter Performed By: #### C MP #### [address] Urine protein measurement by automated test strip (mass/volume)Ordered By: Halle Jo on 09-15-2023 Protein (U) [Mass/Vol] 100 mg/dL High Negative [facility] Comment on above: Order Comment: Name Collection Type:: Yang Catheter Performed By: #### C MP #### [address] Urobilinogen Auto test strip (U) [Mass/Vol]Ordered By: Halle Jo on 09-15-2023 Urobilinogen (U) [Mass/Vol] Normal mg/dL Normal [facility] Vitamin B12 ser/plasOrdered By: Rodger Tomas on 09-15-2023 Cobalamin (Vitamin B12) [Mass/Vol] 298 pg/mL Normal 180-914 [facility] Comment on above: Performed By: #### A BG #### Point of Care testing , XR chest 1V portableon 09-14 XR chest 1V portable [facility] [place] [address] [place] [address] XRay Report Signed Patient: Amparo Castorena MR#: [id number] : 1950 Acct:[id number] Age/Sex: 72 / F ADM Date: 09/15/23 Loc: ER Room: Type: [facility] ER Attending Dr: Copies to: DELORIS Antonio Ordering Provider: DELORIS Antonio Date of Service: 09/15/23 XR/XR chest 1V portable: Neuro Symptoms/Deficit XR chest 1V portable 09/15/2023 9:37 AM SIGNS AND SYMPTOMS: Neuro Symptoms/Deficit PROTOCOL: Frontal radiograph of the chest COMPARISON: 07/31/2022 FINDINGS: The trachea is midline. Atherosclerotic changes are noted in the thoracic aorta. There is perihilar vascular prominence. The heart and mediastinal structures are within normal limits. The lung parenchyma is clear. The bony thorax is intact. Degenerative changes are noted in the shoulders and thoracic spine. XR/XR chest 1V portable IMPRESSION: Perihilar vascular prominence is noted suggesting volume overload or congestive heart failure. Impression dictated by: Mario Eaton M.D.09/15/2023 10:52 AM Dictation Location: [facility] [address] Transcribed By: SY 09/15/23 1052 Dictated By: Mario Eaton II, MD 09/15/23 1050 Signed By: 09/15/23 1052 Normal [facility] Yeast detection in urine sed iment by light microscopyOrdered By: Halle Jo on 09-15-2023 Yeast LM Ql (Urine sed) None seen [HPF] None Seen [facility] Office Visit (Cardiology)on 11-11-2022 Follow-up visit Diagnoses/Problems Assessed Atherosclerosis of [place] coronary artery without angina pectoris (414.01) (I25.10) Chest discomfort (786.59) (R07.89) Benign essential hypertension (401.1) (I10) Hyperlipidemia (272.4) (E78.5) Stroke (434.91) (I63.9) Dialysis patient (V45.11) (Z99.2) assisted resident (V60.6) (Z59.3) Former smoker (V15.82) (Z87.891) Orders SocHx: Former smoker Tobacco Use Screening; Status:Complete; Done: [id number] Patient Instructions Please bring all medicines, vitamins, [...] of coronary artery disease prior intervention in [place]. Detail is lacking. She does have history [...] 1. Coronary artery disease prior intervention in [place] detail is lacking. Recent evaluation of atypical chest pain. Stress test and echocardiogram appears to be reassuring 2. Chronic kidney disease on hemodialysis 3. Hypertension controlled 4. Hyperlipidemia on treatment 5. Diabetes mellitus 6. History of stroke with left-sided weakness and 7. assisted resident 8. Intermittent episode of hemodialysis associated [...] smoker (V15.82) (Z87.891) No illicit drug use assisted resident (V60.6) (Z59.3) Review of Systems Constitutional: [...] habits an (more content not included)... Normal [employer] Tobacco Screening.on 023 Fall risk assessment a) No falls within the last year [facility] Intentio DO Work Phone: Tobacco use status [facility] b) No [facility] [employer] DO Work Phone: Activated partial thrombopla stin time (aPTT) in platelet poor plasma by coagulation aOrdered By: Malcolm Moss on 07-31-2022 aPTT Coag (PPP) [Time] 28.0 s 25.1-36.5 [facility] Alanine aminotransferase [En zymatic activity/volume] in Serum or PlasmaOrdered By: Malcolm Moss on 07-31-2022 ALT [Catalytic activity/Vol] 24 U/L 7-52 [facility] Albumin [Mass/volume] in Ser um or Plasma by Bromocresol green (BCG) dye binding methoOrdered By: Malcolm Moss on 07-31-2022 Albumin BCG dye [Mass/Vol] 3.6 g/dL 3.5-5.7 [facility] Alkaline phosphatase [Enzyma tic activity/volume] in Serum or PlasmaOrdered By: Malcolm Moss on 07-31-2022 ALP [Catalytic activity/Vol] 124 U/L 34-104 [facility] Aspartate aminotransferase [ Enzymatic activity/volume] in Serum or PlasmaOrdered By: Malcolm Moss on 07-31-2022 AST [Catalytic activity/Vol] 22 U/L 13-39 [facility] Automated erythrocytes count in urine sediment (number/area)Ordered By: Malcolm Moss on 07-31-2022 RBC Auto (Urine sed) [#/Area] 50-100 [HPF] 0-4 [facility] Automated leukocytes count i n urine sediment (number/area)Ordered By: Malcolm Moss on 07-31-2022 WBC Auto (Urine sed) [#/Area] Innumerable [HPF] 0-4 [facility] Automated urine hyaline cast s count (number/volume)Ordered By: Malcolm Moss on 07-31-2022 Hyaline casts Auto (U) [#/Vol] 5-9 [LPF] 0-1 [facility] Basophils Auto (Bld) [#/Vol] Ordered By: Malcolm Moss on 07-31-2022 Basophils (Bld) [#/Vol] 0.1 10*3/uL 0.0-0.2 [facility] Basophils/100 WBC Auto (Bld) Ordered By: Malcolm Moss on 07-31-2022 Basophils/100 WBC (Bld) 0.4 % . [facility] Bilirubin Auto test strip Ql (U)Ordered By: Malcolm Moss on 07-31-2022 Bilirubin Ql (U) Negative Negative [facility] Bilirubin.direct [Mass/volum e] in Serum or PlasmaOrdered By: Malcolm Moss on 07-31-2022 Bilirubin.direct [Mass/Vol] 0.10 mg/dL 0.03-0.18 [facility] Bilirubin.total [Mass/volume ] in Serum or PlasmaOrdered By: Malcolm Moss on 07-31-2022 Bilirubin [Mass/Vol] 0.6 mg/dL 0.3-1.0 [facility] CBC AUTO DIFFon 07-31-2022 BASO # 0.1 103/ul Normal 0.0-0.1 [facility] Comment on above: Performed By: #### U SUNITA, MG, RENAL #### [facility] [address] [place] [address] Dr. Silver Harrison Basophils/100 WBC (Bld) 0.6 % Normal 0.2-2.0 [facility] Comment on above: Performed By: #### U SUNITA, MG, RENAL #### [facility] [address] [place] [address] Dr. Silver Harrison EO # 0.3 103/ul Normal 0.0-0.7 [facility] Comment on above: Performed By: #### U SUNITA, MG, RENAL #### [facility] [address] [place] [address] Dr. Silver Harrison Eosinophils/100 WBC (Bld) 2.4 % Normal 0.9-7.0 [facility] Comment on above: Performed By: #### U SUNITA, MG, RENAL #### [facility] [address] [place] [address] Dr. Silver Harrison Erythrocyte distribution width (RBC) [Ratio] 14.1 % Normal 11.0-15.0 [facility] Comment on above: Performed By: #### U SUNITA, MG, RENAL #### [facility] [address] [place] [address] Dr. Silver Harrison Hematocrit (Bld) [Volume fraction] 33.7 % Critically low 36.0-48.0 [facility] Comment on above: Performed By: #### U SUNITA, MG, RENAL #### [facility] [address] [place] [address] Dr. Silver Harrison Hemoglobin (Bld) [Mass/Vol] 10.1 g/dL Critically low 12.0-16.0 [facility] Comment on above: Performed By: #### U SUNITA, MG, RENAL #### [facility] [address] [place] [address] Dr. Silver Harrison IG # 0.07 10e3/ul Critically high 0.00-0.03 [facility] Comment on above: Performed By: #### U SUNITA, MG, RENAL #### [facility] [address] [place] [address] Dr. Silver Harrison IG % 0.6 % Critically high 0.0-0.5 [facility] Comment on above: Performed By: #### U SUNITA, MG, RENAL #### [facility] [address] [place] [address] Dr. Silver Harrison LYMPH # 2.4 103/ul Normal 1.2-3.8 [facility] Comment on above: Performed By: #### U SUNITA, MG, RENAL #### [facility] [address] [place] [address] Dr. Silver Harrison Lymphocytes/100 WBC (Bld) 21.6 % Normal 20.5-60.0 [facility] Comment on above: Performed By: #### U SUNITA, MG, RENAL #### [facility] [address] [place] [address] Dr. Silver Harrison MANUAL DIFF REQ NO Normal [facility] Comment on above: Performed By: #### U SUNITA, MG, RENAL #### [facility] [address] [place] [address] Dr. Silver Harrison MCH (RBC) [Entitic mass] 28.6 pg Normal 26.7-34.0 [facility] Comment on above: Performed By: #### U SUNITA, MG, RENAL #### [facility] [address] [place] [address] Dr. Silver Harrison MCHC (RBC) [Mass/Vol] 30.0 g/dL Normal 29.9-35.2 [facility] Comment on above: Performed By: #### U SUNITA, MG, RENAL #### [facility] [address] [place] [address] Dr. Silver Harrison MCV (RBC) [Entitic vol] 95.5 fL Normal 81.0-99.0 [facility] Comment on above: Performed By: #### U SUNITA, MG, RENAL #### [facility] [address] [address] [address] Silver Harrison MONO # 0.8 103/ul Normal 0.3-0.8 [facility] Comment on above: Performed By: #### U SUNITA, MG, RENAL #### [facility] [address] [place] [address] Dr. Silver Harrison Monocytes/100 WBC (Bld) 7.1 % Normal 1.7-12.0 [facility] Comment on above: Performed By: #### U SUNITA, MG, RENAL #### [facility] [address] [place] [address] Dr. Silver Harrison NEUT # 7.4 103/ul Critically high 1.4-6.5 [facility] Comment on above: Performed By: #### U SUNITA, MG, RENAL #### [facility] [address] [place] [address] Dr. Silver Harrison Neutrophils/100 WBC (Bld) 67.7 % Normal 43.0-75.0 [facility] Comment on above: Performed By: #### U SUNITA, MG, RENAL #### [facility] [address] [place] [address] Dr. Silver Harrison Platelet mean volume (Bld) [Entitic vol] 10.2 fL Normal 9.5-13.5 [facility] Comment on above: Performed By: #### U SUNITA, MG, RENAL #### [facility] [address] [place] [address] Dr. Silver Harrison PLT 130 103/ul Critically low 150-450 [facility] Comment on above: Performed By: #### U SUNITA, MG, RENAL #### [facility] [address] [place] [address] Dr. Silver Harrison RBC 3.53 106/ul Critically low 4.20-5.40 [facility] Comment on above: Performed By: #### U SUNITA, MG, RENAL #### [facility] [address] [place] [address] Dr. Silver Harrison WBC 10.9 103/ul Normal 4.0-11.0 [facility] Comment on above: Performed By: #### U SUNITA, MG, RENAL #### [facility] [address] [address] [address] Silver Harrison Calcium [Mass/volume] in Ser um or PlasmaOrdered By: Malcolm Moss on 07-31-2022 Calcium [Mass/Vol] 8.3 mg/dL 8.6-10.3 [facility] Carbon dioxide, total [Moles /volume] in Serum or PlasmaOrdered By: Malcolm Moss on 07-31-2022 CO2 [Moles/Vol] 24.3 mmol/L 21.0-31.0 [facility] Casts typing in urine sedime nt by light microscopyOrdered By: Malcolm Moss on 07-31-2022 Casts LM Nom (Urine sed) N/A [facility] Chloride [Moles/volume] in S alida or PlasmaOrdered By: Malcolm Moss on 07-31-2022 Chloride [Moles/Vol] 98 mmol/L 98-107 [facility] Creatine kinase [Enzymatic a ctivity/volume] in Serum or PlasmaOrdered By: Malcolm Moss on 07-31-2022 CK [Catalytic activity/Vol] 70 U/L 30-223 [facility] Creatinine [Mass/volume] in Serum or PlasmaOrdered By: Malcolm Moss on 07-31-2022 Creatinine [Mass/Vol] 4.13 mg/dL 0.60-1.20 [facility] Eosinophils Auto (Bld) [#/Vo l]Ordered By: Malcolm Moss on 07-31-2022 Eosinophils (Bld) [#/Vol] 0.1 10*3/uL 0.0-0.45 [facility] Eosinophils/100 WBC Auto (Bl d)Ordered By: Malcolm Moss on 07-31-2022 Eosinophils/100 WBC (Bld) 0.5 % . [facility] Erythrocyte distribution wid th Auto (RBC) [Ratio]Ordered By: Malcolm Moss on 07-31-2022 Erythrocyte distribution width (RBC) [Ratio] 15.0 % 11.9-15.3 [facility] Globulin Calc (S) [Mass/Vol] Ordered By: Malcolm Moss on 07-31-2022 Globulin (S) [Mass/Vol] 4.5 g/dL [facility] Glucose [Mass/volume] in Ser um or PlasmaOrdered By: Malcolm Moss on 07-31-2022 Glucose [Mass/Vol] 183 mg/dL 70-100 [facility] Comment on above: ADA recommended refe rence rangeRandom Glucose Reference Range is dependent on time and content of last meal. Glucose of more than 200 mg/dL in a nonstressed, ambulatory subject supports the diagnosis of Diabetes Mellitus. Hematocrit Auto (Bld) [Volum e fraction]Ordered By: Malcolm Moss on 07-31-2022 Hematocrit (Bld) [Volume fraction] 31.6 % 34.0-46.4 [facility] Hemoglobin [Mass/volume] in BloodOrdered By: Malcolm Moss on 07-31-2022 Hemoglobin (Bld) [Mass/Vol] 9.9 g/dL 11.8-15.4 [facility] Ketones Auto test strip (U) [Mass/Vol]Ordered By: Malcolm Moss on 07-31-2022 Ketones (U) [Mass/Vol] Negative Negative [facility] - CoagulationOrde red By: Maclolm Moss on 07-31-2022 PT Coag (PPP) [Time] 12.3 s 9.0-12.9 [facility] Leukocytes [#/volume] correc mary jo for nucleated erythrocytes in Blood by Automated counOrdered By: Malcolm Moss on 07-31-2022 WBC corrected for nucl RBC Auto (Bld) [#/Vol] 27.0 10*3/uL 3.8-11.6 [facility] Lipase [Enzymatic activity/v olume] in Serum or PlasmaOrdered By: Malcolm Moss on 07-31-2022 Lipase [Catalytic activity/Vol] 36.0 U/L 11.0-82.0 [facility] Lymphocytes Auto (Bld) [#/Vo l]Ordered By: Malcolm Moss on 07-31-2022 Lymphocytes (Bld) [#/Vol] 1.3 10*3/uL 1.00-4.8 [facility] Lymphocytes/100 WBC Auto (Bl d)Ordered By: Malcolm Moss on 07-31-2022 Lymphocytes/100 WBC (Bld) 4.8 % . [facility] MCH Auto (RBC) [Entitic mass ]Ordered By: Malcolm Moss on 07-31-2022 MCH (RBC) [Entitic mass] 28.8 pg 24.7-34.3 [facility] MCHC Auto (RBC) [Mass/Vol]Or dered By: Malcolm Moss on 07-31-2022 MCHC (RBC) [Mass/Vol] 31.4 g/dL 32.0-35.0 [facility] MCV Auto (RBC) [Entitic vol] Ordered By: Malcolm Moss on 07-31-2022 MCV (RBC) [Entitic vol] 91.7 fL 80-100 [facility] Monocyte distribution width [Entitic volume] in Blood by AutomatedOrdered By: Malcolm Moss on 07-31-2022 Monocyte distribution width Auto (Bld) [Entitic vol] 20.48 % 0.00-20.00 [facility] Comment on above: For adults in ED, MD W > 20.0 may be associated with a higher risk of sepsis during the first 12 hrs of hospital admission Monocytes Auto (Bld) [#/Vol] Ordered By: Malcolm Moss on 07-31-2022 Monocytes (Bld) [#/Vol] 1.4 10*3/uL 0.0-0.8 [facility] Monocytes/100 WBC Auto (Bld) Ordered By: Malcolm Moss on 07-31-2022 Monocytes/100 WBC (Bld) 5.1 % . [facility] Natriuretic peptide B [Mass/ Vol]Ordered By: Malcolm Moss on 07-31-2022 Natriuretic peptide B (Bld) [Mass/Vol] 57.0 pg/mL 5-100 [facility] [facility] Neutrophils Auto (Bld) [#/Vo l]Ordered By: Malcolm Moss on 07-31-2022 Neutrophils (Bld) [#/Vol] 24.2 10*3/uL 1.8-7.7 [facility] Neutrophils/100 WBC Auto (Bl d)Ordered By: Malcolm Moss on 07-31-2022 Neutrophils/100 WBC (Bld) 89.2 % . [facility] No Panel InformationOrdered By: Malcolm Moss on 07-31-2022 Estimated GFR (CKD-EPI) 10.913 mL/Min [facility] Creatinine Clearance (Chem 14.63 [facility] Nucleated erythrocytes [Pres ence] in Blood by Automated countOrdered By: Malcolm Moss on 07-31-2022 Nucleated RBC Auto Ql (Bld) 0.1 /100{WBC} 0-0.5 [facility] PHOSPHORUSon 07-31-2022 Phosphate [Mass/Vol] 5.3 mg/dL Critically high 2.6-4.7 [facility] Comment on above: Performed By: #### B MP #### [facility] [address] [place] [address] Dr. Silver Harrison PROF CHEM 8 (BAS METB)on Anion gap [Moles/Vol] 11.8 mmol/L Normal [facility] Comment on above: Performed By: #### B MP #### [facility] [address] [place] [address] Dr. Silver Harrison Calcium [Mass/Vol] 8.4 mg/dL Critically low 8.5-10.1 [facility] Comment on above: Performed By: #### B MP #### [facility] [address] [place] [address] Dr. Silver Harrison Chloride [Moles/Vol] 99 mmol/L Normal 98-107 [facility] Comment on above: Performed By: #### B MP #### [facility] [address] [place] [address] Dr. Silver Harrison CO2 [Moles/Vol] 27.9 mmol/L Normal 21.0-32.0 [facility] Comment on above: Performed By: #### B MP #### [facility] [address] [place] [address] Dr. Silver Harrison Creatinine [Mass/Vol] 4.81 mg/dL Critically high 0.55-1.02 [facility] Comment on above: Performed By: #### B MP #### [facility] [address] [address] [address] Silver Harrison EGFR-AF CHINESE 11 mL/min/1.73m2 Critically low >=60 [facility] Comment on above: Performed By: #### B MP #### [facility] [address] [address] [address] Silver Harrison EGFR-NON AF CHINESE 9 mL/min/1.73m2 Critically low >=60 [facility] Comment on above: Performed By: #### B MP #### [facility] [address] [address] [address] Silver Harrison Glucose [Mass/Vol] 114 mg/dL Critically high 74-106 [facility] Comment on above: Performed By: #### B MP #### [facility] [address] [address] [address] Silver Harrison Potassium [Moles/Vol] 3.7 mmol/L Normal 3.5-5.1 [facility] Comment on above: Performed By: #### B MP #### [facility] [address] [address] [address] Silver Harrison Sodium [Moles/Vol] 135 mmol/L Critically low 136-145 [facility] Comment on above: Performed By: #### B MP #### [facility] [address] [address] [address] Silver Harrison Urea nitrogen [Mass/Vol] 33.0 mg/dL Critically high 7.0-18.0 [facility] Comment on above: Performed By: #### B MP #### [facility] [address] [address] [address] Silver Harrison Urea nitrogen/Creatinine [Mass ratio] 6.9 mg/mg Normal [facility] Comment on above: Performed By: #### B MP #### [facility] [address] [address] [address] Silver Harrison Platelet mean volume Auto (B ld) [Entitic vol]Ordered By: Malcolm Moss on 07-31-2022 Platelet mean volume (Bld) [Entitic vol] 8.4 fL 6.3-10.7 [facility] Platelet poor plasma interna tional normalized ratio (INR) by coagulation assay (relatOrdered By: Malcolm Moss on 07-31-2022 INR Coag (PPP) [Relative time] 1.1 {INR} [facility] Comment on above: INR Therapeutic Rang [...] (Bld) [#/Vol] 155 10*3/uL 150-450 [facility] Potassium [Moles/volume] in Serum or PlasmaOrdered By: Malcolm Moss on 07-31-2022 Potassium [Moles/Vol] 4.3 mmol/L 3.5-5.1 [facility] Protein Auto test strip (U) [Mass/Vol]Ordered By: Malcolm Moss on 07-31-2022 Protein (U) [Mass/Vol] mg/dL Negative [facility] Protein [Mass/volume] in Ser um or PlasmaOrdered By: Malcolm Moss on 07-31-2022 Protein [Mass/Vol] 8.1 g/dL 6.4-8.9 [facility] RBC Auto (Bld) [#/Vol]Ordere d By: Malcolm Moss on 07-31-2022 RBC (Bld) [#/Vol] 3.45 10*6/uL 3.60-5.00 [facility] Serum or plasma albumin/glob ulin mass ratioOrdered By: Malcolm Moss on 07-31-2022 Albumin/Globulin [Mass ratio] 0.8 {ratio} [facility] Serum or plasma anion gap de terminationOrdered By: Malcolm Moss on 07-31-2022 Anion gap [Moles/Vol] 16.0 mmol/L 6.0-15.0 [facility] Serum or plasma non-glucuron idated bilirubin measurement (mass/volume)Ordered By: Malcolm Moss on 07-31-2022 Bilirubin.indirect [Mass/Vol] 0.5 mg/dL [facility] Sodium [Moles/volume] in Ser um or PlasmaOrdered By: Malcolm Moss on 07-31-2022 Sodium [Moles/Vol] 134 mmol/L 136-145 [facility] Squamous epithelial cells de tection in urine sediment by light microscopyOrdered By: Malcolm Moss on 07-31-2022 Epithelial cells.squamous LM Ql (Urine sed) 10-19 [HPF] 0-2 [facility] Troponin I.cardiac [Mass/vol ume] in Serum or Plasma by Detection limit <= 0.01 ng/Ordered By: Malcolm Moss on 07-31-2022 Troponin I.cardiac DL <= 0.01 ng/mL [Mass/Vol] 7.7 pg/mL 0.0-15.0 [facility] Urea nitrogen [Mass/volume] in Serum or PlasmaOrdered By: Malcolm Moss on 07-31-2022 Urea nitrogen [Mass/Vol] 26 mg/dL 7-25 [facility] Urine appearanceOrdered By: Malcolm Moss on 07-31-2022 Appearance (U) Cloudy Clear [facility] Urine bacteria detection by automated methodOrdered By: Malcolm Moss on 07-31-2022 Bacteria Auto Ql (U) 3+ None Seen [facility] Urine colorOrdered By: Laura Moss on 07-31-2022 Color (U) Yellow Yellow [facility] Urine glucose measurement by automated test strip (mass/volume)Ordered By: Malcolm Moss on 07-31-2022 Glucose Auto test strip (U) [Mass/Vol] Normal mg/dL Normal [facility] Urine hemoglobin detection b y automated test stripOrdered By: Malcolm Moss on 07-31-2022 Hemoglobin Auto test strip Ql (U) 3+ Negative [facility] Urine leukocyte esterase det ection by automated test stripOrdered By: Malcolm Moss on 07-31-2022 Leukocyte esterase Auto test strip Ql (U) 4+ Negative [facility] Urine nitrite detection by a utomated test stripOrdered By: Malcolm Moss on 07-31-2022 Nitrite Auto test strip Ql (U) Negative Negative [facility] Urobilinogen Auto test strip (U) [Mass/Vol]Ordered By: Malcolm Moss on 07-31-2022 Urobilinogen (U) [Mass/Vol] Normal mg/dL Normal [facility] WBC Auto (Bld) [#/Vol]Ordere d By: Malcolm Moss on 07-31-2022 WBC (Bld) [#/Vol] 27.0 10*3/uL 3.8-11.6 [facility] Yeast detection in urine sed iment by light microscopyOrdered By: Malcolm Moss on 07-31-2022 Yeast LM Ql (Urine sed) N/A [facility] pH Auto test strip (U)Ordere d By: Malcolm Moss on 07-31-2022 pH (U) 1.020 [pH] 1.001-1.03 0 [facility] pH (U) 6.0 [pH] 5.0-9.0 [facility] CBC AUTO DIFFon 07-29-2022 BASO # 0.1 103/ul Normal 0.0-0.1 [facility] Comment on above: Performed By: #### U SUNITA, MG, RENAL #### [facility] [address] [place] [address] Dr. Silver Harrison Basophils/100 WBC (Bld) 0.6 % Normal 0.2-2.0 [facility] Comment on above: Performed By: #### U SUNITA, MG, RENAL #### [facility] [address] [place] [address] Dr. Silver Harrison EO # 0.1 103/ul Normal 0.0-0.7 [facility] Comment on above: Performed By: #### U SUNITA, MG, RENAL #### [facility] [address] [address] [address] Silver Harrison Eosinophils/100 WBC (Bld) 1.8 % Normal 0.9-7.0 [facility] Comment on above: Performed By: #### U SUNITA, MG, RENAL #### [facility] [address] [place] [address] Dr. Silver Harrison Erythrocyte distribution width (RBC) [Ratio] 13.2 % Normal 11.0-15.0 [facility] Comment on above: Performed By: #### U SUNITA, MG, RENAL #### [facility] [address] [place] [address] Dr. Silver Harrison Hematocrit (Bld) [Volume fraction] 45.2 % Normal 36.0-48.0 [facility] Comment on above: Performed By: #### U SUNITA, MG, RENAL #### [facility] [address] [place] [address] Dr. Silver Harrison Hemoglobin (Bld) [Mass/Vol] 15.3 g/dL Normal 12.0-16.0 [facility] Comment on above: Performed By: #### U SUNITA, MG, RENAL #### [facility] [address] [place] [address] Dr. Silver Harrison IG # 0.07 10e3/ul Critically high 0.00-0.03 [facility] Comment on above: Performed By: #### U SUNITA, MG, RENAL #### [facility] [address] [place] [address] Dr. Silver Harrison IG % 0.9 % Critically high 0.0-0.5 [facility] Comment on above: Performed By: #### U SUNITA, MG, RENAL #### [facility] [address] [place] [address] Dr. Silver Harrison LYMPH # 2.1 103/ul Normal 1.2-3.8 [facility] Comment on above: Performed By: #### U SUNITA, MG, RENAL #### [facility] [address] [place] [address] Dr. Silver Harrison Lymphocytes/100 WBC (Bld) 27.2 % Normal 20.5-60.0 [facility] Comment on above: Performed By: #### U SUNITA, MG, RENAL #### [facility] [address] [place] [address] Dr. Silver Harrison MANUAL DIFF REQ NO Normal [facility] Comment on above: Performed By: #### U SUNITA, MG, RENAL #### [facility] [address] [place] [address] Dr. Silver Harrison MCH (RBC) [Entitic mass] 31.5 pg Normal 26.7-34.0 [facility] Comment on above: Performed By: #### U SUNITA, MG, RENAL #### [facility] [address] [address] [address] Silver aHrrison MCHC (RBC) [Mass/Vol] 33.8 g/dL Normal 29.9-35.2 [facility] Comment on above: Performed By: #### U SUNITA, MG, RENAL #### [facility] [address] [address] [address] Silver Harrison MCV (RBC) [Entitic vol] 93.0 fL Normal 81.0-99.0 [facility] Comment on above: Performed By: #### U SUNITA, MG, RENAL #### [facility] [address] [address] [address] Silver Harrison MONO # 0.5 103/ul Normal 0.3-0.8 [facility] Comment on above: Performed By: #### U SUNITA, MG, RENAL #### [facility] [address] [place] [address] Dr. Silver Harrison Monocytes/100 WBC (Bld) 7.0 % Normal 1.7-12.0 [facility] Comment on above: Performed By: #### U SUNITA, MG, RENAL #### [facility] [address] [place] [address] Dr. Silver Harrison NEUT # 4.8 103/ul Normal 1.4-6.5 [facility] Comment on above: Performed By: #### U SUNITA, MG, RENAL #### [facility] [address] [address] [address] Silver Harrison Neutrophils/100 WBC (Bld) 62.5 % Normal 43.0-75.0 [facility] Comment on above: Performed By: #### U SUNITA, MG, RENAL #### [facility] [address] [address] [address] Silver Harrison Platelet mean volume (Bld) [Entitic vol] 12.2 fL Normal 9.5-13.5 [facility] Comment on above: Performed By: #### U SUNITA, MG, RENAL #### [facility] [address] [address] [address] Silver Harrison PLT 156 103/ul Normal 150-450 [facility] Comment on above: Performed By: #### U SUNITA, MG, RENAL #### [facility] [address] [address] [address] Silver Harrison RBC 4.86 106/ul Normal 4.20-5.40 [facility] Comment on above: Performed By: #### U SUNITA, MG, RENAL #### [facility] [address] [address] [address] Silver Harrison WBC 7.8 103/ul Normal 4.0-11.0 [facility] Comment on above: Performed By: #### U SUNITA, MG, RENAL #### [facility] [address] [address] [address] Silver Harrison FERRITINon 07-29-2022 Ferritin [Mass/Vol] 704.0 ng/mL Critically high 8.0-252.0 [facility] Comment on above: Performed By: #### U SUNITA, MG, RENAL #### [facility] [address] [place] [address] Dr. Silver Harrison IRON AND TIBCon 07-29-2022 % SATURATION 20.2 % Normal [facility] Comment on above: Performed By: #### U SUNITA, MG, RENAL #### [facility] [address] [place] [address] Dr. Silver Harrison Iron [Mass/Vol] 47.0 ug/dL Critically low 50.0-170.0 [facility] Comment on above: Performed By: #### U SUNITA, MG, RENAL #### [facility] [address] [address] [address] Silver Harrison TIBC DIRECT 233.0 ug/dL Critically low 250.0-450. 0 [facility] Comment on above: Performed By: #### U SUNITA, MG, RENAL #### [facility] [address] [place] [address] Dr. Silver Harrison CBC AUTO DIFFon 07-24-2022 BASO # 0.1 103/ul Normal 0.0-0.1 [facility] Comment on above: Performed By: #### B MP #### [facility] [address] [address] [address] Silver Harrison Basophils/100 WBC (Bld) 0.6 % Normal 0.2-2.0 [facility] Comment on above: Performed By: #### B MP #### [facility] [address] [place] [address] Dr. Silver Harrison EO # 0.3 103/ul Normal 0.0-0.7 [facility] Comment on above: Performed By: #### B MP #### [facility] [address] [place] [address] Dr. Silver Harrison Eosinophils/100 WBC (Bld) 2.3 % Normal 0.9-7.0 [facility] Comment on above: Performed By: #### B MP #### [facility] [address] [place] [address] Dr. Silver Harrison Erythrocyte distribution width (RBC) [Ratio] 13.3 % Normal 11.0-15.0 [facility] Comment on above: Performed By: #### B MP #### [facility] [address] [place] [address] Dr. Silver Harrison Hematocrit (Bld) [Volume fraction] 28.8 % Critically low 36.0-48.0 [facility] Comment on above: Performed By: #### B MP #### [facility] [address] [place] [address] Dr. Silver Harrison Hemoglobin (Bld) [Mass/Vol] 8.8 g/dL Critically low 12.0-16.0 [facility] Comment on above: Performed By: #### B MP #### [facility] [address] [place] [address] Dr. Silver Harrison IG # 0.12 10e3/ul Critically high 0.00-0.03 [facility] Comment on above: Performed By: #### B MP #### [facility] [address] [place] [address] Dr. Silver Harrison IG % 1.1 % Critically high 0.0-0.5 [facility] Comment on above: Performed By: #### B MP #### [facility] [address] [place] [address] Dr. Silver Harrison LYMPH # 2.4 103/ul Normal 1.2-3.8 [facility] Comment on above: Performed By: #### B MP #### [facility] [address] [place] [address] Dr. Silver Harrison Lymphocytes/100 WBC (Bld) 22.0 % Normal 20.5-60.0 [facility] Comment on above: Performed By: #### B MP #### [facility] [address] [place] [address] Dr. Silver Harrison MANUAL DIFF REQ NO Normal [facility] Comment on above: Performed By: #### B MP #### [facility] [address] [place] [address] Dr. Silver Harrison MCH (RBC) [Entitic mass] 28.9 pg Normal 26.7-34.0 [facility] Comment on above: Performed By: #### B MP #### [facility] [address] [place] [address] Dr. Silver Harrison MCHC (RBC) [Mass/Vol] 30.6 g/dL Normal 29.9-35.2 [facility] Comment on above: Performed By: #### B MP #### [facility] [address] [place] [address] Dr. Silver Harrison MCV (RBC) [Entitic vol] 94.4 fL Normal 81.0-99.0 [facility] Comment on above: Performed By: #### B MP #### [facility] [address] [place] [address] Dr. Silver Harrison MONO # 0.5 103/ul Normal 0.3-0.8 [facility] Comment on above: Performed By: #### B MP #### [facility] [address] [place] [address] Dr. Silver Harrison Monocytes/100 WBC (Bld) 4.8 % Normal 1.7-12.0 [facility] Comment on above: Performed By: #### B MP #### [facility] [address] [place] [address] Dr. Silver Harrison NEUT # 7.4 103/ul Critically high 1.4-6.5 [facility] Comment on above: Performed By: #### B MP #### [facility] [address] [place] [address] Dr. Silver Harrison Neutrophils/100 WBC (Bld) 69.2 % Normal 43.0-75.0 [facility] Comment on above: Performed By: #### B MP #### [facility] [address] [place] [address] Dr. Silver Harrison Platelet mean volume (Bld) [Entitic vol] 9.8 fL Normal 9.5-13.5 [facility] Comment on above: Performed By: #### B MP #### [facility] [address] [place] [address] Dr. Silver Harrison PLT 146 103/ul Critically low 150-450 [facility] Comment on above: Performed By: #### B MP #### [facility] [address] [place] [address] Dr. Silver Harrison RBC 3.05 106/ul Critically low 4.20-5.40 [facility] Comment on above: Performed By: #### B MP #### [facility] [address] [place] [address] Dr. Silver Harrison WBC 10.7 103/ul Normal 4.0-11.0 [facility] Comment on above: Performed By: #### B MP #### [facility] [address] [place] [address] Dr. Silver Harrison PHOSPHORUSon 07-24-2022 Phosphate [Mass/Vol] 4.5 mg/dL Normal 2.6-4.7 [facility] Comment on above: Performed By: #### U SUNITA, MG, RENAL #### [facility] [address] [place] [address] Dr. Silver Harrison PROF CHEM 8 (BAS METB)on Anion gap [Moles/Vol] 13.6 mmol/L Normal [facility] Comment on above: Performed By: #### U SUNITA, MG, RENAL #### [facility] [address] [address] [address] Silver Harrison Calcium [Mass/Vol] 8.5 mg/dL Normal 8.5-10.1 [facility] Comment on above: Performed By: #### U SUNITA, MG, RENAL #### [facility] [address] [address] [address] Silver Harrison Chloride [Moles/Vol] 105 mmol/L Normal 98-107 [facility] Comment on above: Performed By: #### U SUNITA, MG, RENAL #### [facility] [address] [address] [address] Silver Harrison CO2 [Moles/Vol] 25.8 mmol/L Normal 21.0-32.0 [facility] Comment on above: Performed By: #### U SUNITA, MG, RENAL #### [facility] [address] [place] [address] Dr. Silver Harrison Creatinine [Mass/Vol] 4.02 mg/dL Critically high 0.55-1.02 [facility] Comment on above: Performed By: #### U SUNITA, MG, RENAL #### [facility] [address] [address] [address] Silver Harrison EGFR-AF CHINESE 13 mL/min/1.73m2 Critically low >=60 [facility] Comment on above: Performed By: #### U SUNITA, MG, RENAL #### [facility] [address] [address] [address] Silver Harrison EGFR-NON AF CHINESE 11 mL/min/1.73m2 Critically low >=60 [facility] Comment on above: Performed By: #### U SUNITA, MG, RENAL #### [facility] [address] [address] [address] Silver Harrison Glucose [Mass/Vol] 74 mg/dL Normal 74-106 [facility] Comment on above: Performed By: #### U SUNITA, MG, RENAL #### [facility] [address] [address] [address] Silver Harrison Potassium [Moles/Vol] 4.4 mmol/L Normal 3.5-5.1 [facility] Comment on above: Performed By: #### U SUNITA, MG, RENAL #### [facility] [address] [address] [address] Silver Harrison Sodium [Moles/Vol] 140 mmol/L Normal 136-145 [facility] Comment on above: Performed By: #### U SUNITA, MG, RENAL #### [facility] [address] [address] [address] Silver Harrison Urea nitrogen [Mass/Vol] 45.0 mg/dL Critically high 7.0-18.0 [facility] Comment on above: Performed By: #### U SUNITA, MG, RENAL #### [facility] [address] [address] [address] Silver Harrison Urea nitrogen/Creatinine [Mass ratio] 11.2 mg/mg Normal [facility] Comment on above: Performed By: #### U SUNITA, MG, RENAL #### [facility] [address] [place] [address] Dr. Silver Harrison HEPATITIS PANEL, [facility] HBsAg Screen Negative Normal Negative [facility] Comment on above: Performed By: #### H EPACUT #### [facility] [address] [place] [address] Dr. Silver Harrison HCV AB Non-Reactive Normal Non Reactive [facility] Comment on above: Performed By: #### H EPACUT #### [facility] [address] [place] [address] Dr. Silver Harrison Hep A Ab, IgM Negative Normal Negative [facility] Comment on above: Performed By: #### H EPACUT #### [facility] [address] [place] [address] Dr. Silver Harrison Hep B Core Ab, IgM Negative Normal Negative [facility] Comment on above: Performed By: #### H EPACUT #### [facility] [address] [place] [address] Dr. Silver Harrison Interpretation: Comment Normal [facility] Comment on above: Result Comment: Not infected with HCV unless early or acute infection is suspected (which may be delayed in an immunocompromised individual), or other evidence exists to indicate HCV infection. Performed By: #### H EPACUT #### [facility] [address] [place] [address] Dr. Silver Harrison PTH INTACTon 07-21-2022 PTH, Intact 164 pg/mL Critically high 15-65 [facility] Comment on above: Performed By: #### U SUNITA, MG, RENAL #### [facility] [address] [place] [address] Dr. Silver Harrison CBC AUTO DIFFon 07-20-2022 BASO # 0.0 103/ul Normal 0.0-0.1 [facility] Comment on above: Performed By: #### C BC #### [facility] [address] [place] [address] Dr. Silver Harrison Basophils/100 WBC (Bld) 0.3 % Normal 0.2-2.0 [facility] Comment on above: Performed By: #### C BC #### [facility] [address] [place] [address] Dr. Silver Harrison EO # 0.2 103/ul Normal 0.0-0.7 [facility] Comment on above: Performed By: #### C BC #### [facility] [address] [place] [address] Dr. Silver Harrison Eosinophils/100 WBC (Bld) 2.5 % Normal 0.9-7.0 [facility] Comment on above: Performed By: #### C BC #### [facility] [address] [place] [address] Dr. Silver Harrison Erythrocyte distribution width (RBC) [Ratio] 13.2 % Normal 11.0-15.0 [facility] Comment on above: Performed By: #### C BC #### [facility] [address] [place] [address] Dr. Silver Harrison Hematocrit (Bld) [Volume fraction] 28.7 % Critically low 36.0-48.0 [facility] [facility] Comment on above: Performed By: #### C BC #### [facility] [address] [place] [address] Dr. Silver Harrison Hemoglobin (Bld) [Mass/Vol] 8.6 g/dL Critically low 12.0-16.0 [facility] Comment on above: Performed By: #### C BC #### [facility] [address] [place] [address] Dr. Silver Harrison IG # 0.05 10e3/ul Critically high 0.00-0.03 [facility] Comment on above: Performed By: #### C BC #### [facility] [address] [place] [address] Dr. Silver Harrison IG % 0.5 % Normal 0.0-0.5 [facility] Comment on above: Performed By: #### C BC #### [facility] [address] [place] [address] Dr. Silver Harrison LYMPH # 1.9 103/ul Normal 1.2-3.8 [facility] Comment on above: Performed By: #### C BC #### [facility] [address] [place] [address] Dr. Silver Harrison Lymphocytes/100 WBC (Bld) 20.3 % Critically low 20.5-60.0 [facility] Comment on above: Performed By: #### C BC #### [facility] [address] [place] [address] Dr. Silver Harriosn MANUAL DIFF REQ NO Normal [facility] Comment on above: Performed By: #### C BC #### [facility] [address] [place] [address] Dr. Silver Harrison MCH (RBC) [Entitic mass] 28.9 pg Normal 26.7-34.0 [facility] Comment on above: Performed By: #### C BC #### [facility] [address] [place] [address] Dr. Silver Harrison MCHC (RBC) [Mass/Vol] 30.0 g/dL Normal 29.9-35.2 [facility] Comment on above: Performed By: #### C BC #### [facility] [address] [place] [address] Dr. Silver Harrison MCV (RBC) [Entitic vol] 96.3 fL Normal 81.0-99.0 [facility] Comment on above: Performed By: #### C BC #### [facility] [address] [place] [address] Dr. Silver Harrison MONO # 0.6 103/ul Normal 0.3-0.8 [facility] Comment on above: Performed By: #### C BC #### [facility] [address] [address] [address] Silver Harrison Monocytes/100 WBC (Bld) 6.1 % Normal 1.7-12.0 [facility] Comment on above: Performed By: #### C BC #### [facility] [address] [place] [address] Dr. Silver Harrison NEUT # 6.5 103/ul Normal 1.4-6.5 [facility] Comment on above: Performed By: #### C BC #### [facility] [address] [place] [address] Dr. Silver Harrison Neutrophils/100 WBC (Bld) 70.3 % Normal 43.0-75.0 [facility] Comment on above: Performed By: #### C BC #### [facility] [address] [place] [address] Dr. Silver Harrison Platelet mean volume (Bld) [Entitic vol] 9.8 fL Normal 9.5-13.5 [facility] Comment on above: Performed By: #### C BC #### [facility] [address] [place] [address] Dr. Silver Harrison PLT 171 103/ul Normal 150-450 [facility] Comment on above: Performed By: #### C BC #### [facility] [address] [place] [address] Dr. Silver Harrison RBC 2.98 106/ul Critically low 4.20-5.40 [facility] Comment on above: Performed By: #### C BC #### [facility] [address] [place] [address] Dr. Silver Harrison WBC 9.3 103/ul Normal 4.0-11.0 [facility] Comment on above: Performed By: #### C BC #### [facility] [address] [address] [address] Silver Harrison FERRITINon 07-20-2022 Ferritin [Mass/Vol] 381.0 ng/mL Critically high 8.0-252.0 [facility] Comment on above: Performed By: #### B MP #### [facility] [address] [address] [address] Silver Harrison IRON AND TIBCon 07-20-2022 % SATURATION 14.6 % Normal [facility] Comment on above: Performed By: #### B MP #### [facility] [address] [address] [address] Silver Harrison Iron [Mass/Vol] 30.0 ug/dL Critically low 50.0-170.0 [facility] Comment on above: Performed By: #### B MP #### [facility] [address] [place] [address] Dr. Silver Harrison TIBC DIRECT 206.0 ug/dL Critically low 250.0-450. 0 [facility] Comment on above: Performed By: #### B MP #### [facility] [address] [place] [address] Dr. Silver Harrison PROF 14(COMP METB)on 023 Albumin [Mass/Vol] 2.8 g/dL Critically low 3.4-5.0 [facility] Comment on above: Performed By: #### B MP #### [facility] [address] [place] [address] Dr. Silver Harrison Albumin/Globulin [Mass ratio] 0.5 {ratio} Normal [facility] Comment on above: Performed By: #### B MP #### [facility] [address] [address] [address] Silver Harrison ALP [Catalytic activity/Vol] 145 U/L Critically high 46-116 [facility] Comment on above: Performed By: #### B MP #### [facility] [address] [place] [address] Dr. Silver Harrison ALT [Catalytic activity/Vol] 13 U/L Critically low 14-59 [facility] Comment on above: Performed By: #### B MP #### [facility] [address] [address] [address] Silver Harrison Anion gap [Moles/Vol] 15.6 mmol/L Normal [facility] Comment on above: Performed By: #### B MP #### [facility] [address] [address] [address] Silver Harrison AST [Catalytic activity/Vol] 12 U/L Critically low 15-37 [facility] Comment on above: Performed By: #### B MP #### [facility] [address] [address] [address] Silver Harrison Bilirubin [Mass/Vol] 0.2 mg/dL Normal 0.2-1.0 [facility] Comment on above: Performed By: #### B MP #### [facility] [address] [place] [address] Dr. Silver Harrison Calcium [Mass/Vol] 8.3 mg/dL Critically low 8.5-10.1 [facility] Comment on above: Performed By: #### B MP #### [facility] [address] [place] [address] Dr. Silver Harrison Chloride [Moles/Vol] 113 mmol/L Critically high 98-107 [facility] Comment on above: Performed By: #### B MP #### [facility] [address] [place] [address] Dr. Silver Harrison CO2 [Moles/Vol] 25.1 mmol/L Normal 21.0-32.0 [facility] Comment on above: Performed By: #### B MP #### [facility] [address] [place] [address] Dr. Silver Harrison Creatinine [Mass/Vol] 4.32 mg/dL Critically high 0.55-1.02 [facility] Comment on above: Performed By: #### B MP #### [facility] [address] [address] [address] Silver Harrison EGFR-AF CHINESE 12 mL/min/1.73m2 Critically low >=60 [facility] Comment on above: Performed By: #### B MP #### [facility] [address] [address] [address] Silver Harrison EGFR-NON AF CHINESE 10 mL/min/1.73m2 Critically low >=60 [facility] Comment on above: Performed By: #### B MP #### [facility] [address] [address] [address] Silver Harrison Globulin (S) [Mass/Vol] 5.6 g/dL [facility] Comment on above: Performed By: #### B MP #### [facility] [address] [address] [address] Silver Harrison Glucose [Mass/Vol] 45 mg/dL Critically low 74-106 [facility] Comment on above: Performed By: #### B MP #### [facility] [address] [address] [address] Silver Harrison Potassium [Moles/Vol] 4.7 mmol/L Normal 3.5-5.1 [facility] Comment on above: Performed By: #### B MP #### [facility] [address] [address] [address] Silver Harrison Protein [Mass/Vol] 8.4 g/dL Critically high 6.4-8.2 [facility] Comment on above: Performed By: #### B MP #### [facility] [address] [address] [address] Silver Harrison Sodium [Moles/Vol] 149 mmol/L Critically high 136-145 [facility] Comment on above: Performed By: #### B MP #### [facility] [address] [address] [address] Silver Harrison Urea nitrogen [Mass/Vol] 54.0 mg/dL Critically high 7.0-18.0 [facility] Comment on above: Performed By: #### B MP #### [facility] [address] [address] [address] Silver Harrison Urea nitrogen/Creatinine [Mass ratio] 12.5 mg/mg [facility] Comment on above: Performed By: #### B MP #### [facility] [address] [place] [address] Dr. Silver Harrison VIT B12 AND FOLATEon 023 Cobalamin (Vitamin B12) [Mass/Vol] 395.0 pg/mL Normal 193.0-986. 0 [facility] Comment on above: Performed By: #### B MP #### [facility] [address] [place] [address] Dr. Silver Harrison FOLATE 5.60 ng/mL Critically low 8.60-58.90 [facility] Comment on above: Performed By: #### B MP #### [facility] [address] [place] [address] Dr. Silver Harrison CBC AUTO DIFFon 07-17-2022 BASO # 0.0 103/ul Normal 0.0-0.1 [facility] Comment on above: Performed By: #### C BC #### [facility] [address] [place] [address] Dr. Silver Harrison Basophils/100 WBC (Bld) 0.5 % Normal 0.2-2.0 [facility] Comment on above: Performed By: #### C BC #### [facility] [address] [place] [address] Dr. Silver Harrison EO # 0.2 103/ul Normal 0.0-0.7 [facility] Comment on above: Performed By: #### C BC #### [facility] [address] [place] [address] Dr. Silver Harrison Eosinophils/100 WBC (Bld) 2.6 % Normal 0.9-7.0 [facility] Comment on above: Performed By: #### C BC #### [facility] [address] [place] [address] Dr. Silver Harrison Erythrocyte distribution width (RBC) [Ratio] 13.2 % Normal 11.0-15.0 [facility] Comment on above: Performed By: #### C BC #### [facility] [address] [place] [address] Dr. Silver Harrison Hematocrit (Bld) [Volume fraction] 25.7 % Critically low 36.0-48.0 [facility] Comment on above: Performed By: #### C BC #### [facility] [address] [place] [address] Dr. Silver Harrison Hemoglobin (Bld) [Mass/Vol] 7.7 g/dL Critically low 12.0-16.0 [facility] Comment on above: Performed By: #### C BC #### [facility] [address] [place] [address] Dr. Silver Harrison IG # 0.04 10e3/ul Critically high 0.00-0.03 [facility] Comment on above: Performed By: #### C BC #### [facility] [address] [place] [address] Dr. Silver Harrison IG % 0.5 % Normal 0.0-0.5 [facility] Comment on above: Performed By: #### C BC #### [facility] [address] [place] [address] Dr. Silver Harrison LYMPH # 1.9 103/ul Normal 1.2-3.8 [facility] Comment on above: Performed By: #### C BC #### [facility] [address] [place] [address] Dr. Silver Harrison Lymphocytes/100 WBC (Bld) 21.8 % Normal 20.5-60.0 [facility] Comment on above: Performed By: #### C BC #### [facility] [address] [place] [address] Dr. Silver Harrison MANUAL DIFF REQ NO Normal [facility] Comment on above: Performed By: #### C BC #### [facility] [address] [place] [address] Dr. Silver Harrison MCH (RBC) [Entitic mass] 29.2 pg Normal 26.7-34.0 [facility] Comment on above: Performed By: #### C BC #### [facility] [address] [place] [address] Dr. Silver Harrison MCHC (RBC) [Mass/Vol] 30.0 g/dL Normal 29.9-35.2 [facility] Comment on above: Performed By: #### C BC #### [facility] [address] [address] [address] Silver Harrison MCV (RBC) [Entitic vol] 97.3 fL Normal 81.0-99.0 [facility] Comment on above: Performed By: #### C BC #### [facility] [address] [place] [address] Dr. Silver Harrison MONO # 0.6 103/ul Normal 0.3-0.8 [facility] Comment on above: Performed By: #### C BC #### [facility] [address] [place] [address] Dr. Silver Harrison Monocytes/100 WBC (Bld) 7.3 % Normal 1.7-12.0 [facility] Comment on above: Performed By: #### C BC #### [facility] [address] [place] [address] Dr. Silver Harrison NEUT # 5.7 103/ul Normal 1.4-6.5 [facility] Comment on above: Performed By: #### C BC #### [facility] [address] [place] [address] Dr. Silver Harrison Neutrophils/100 WBC (Bld) 67.3 % Normal 43.0-75.0 [facility] Comment on above: Performed By: #### C BC #### [facility] [address] [place] [address] Dr. Silver Harrison Platelet mean volume (Bld) [Entitic vol] 10.0 fL Normal 9.5-13.5 [facility] Comment on above: Performed By: #### C BC #### [facility] [address] [place] [address] Dr. Silver Harrison PLT 154 103/ul Normal 150-450 [facility] Comment on above: Performed By: #### C BC #### [facility] [address] [place] [address] Dr. Silver Harrison RBC 2.64 106/ul Critically low 4.20-5.40 [facility] Comment on above: Performed By: #### C BC #### [facility] [address] [place] [address] Dr. Silver Harrison WBC 8.5 103/ul Normal 4.0-11.0 [facility] Comment on above: Performed By: #### C BC #### [facility] [address] [place] [address] Dr. Silver Harrison PHOSPHORUSon 07-17-2022 Phosphate [Mass/Vol] 4.9 mg/dL Critically high 2.6-4.7 [facility] Comment on above: Performed By: #### U SUNITA, MG, RENAL #### [facility] [address] [place] [address] Dr. Silver Harrison PROF CHEM 8 (BAS METB)on Anion gap [Moles/Vol] 12.1 mmol/L Normal [facility] Comment on above: Performed By: #### U SUNITA, MG, RENAL #### [facility] [address] [place] [address] Dr. Silver Harrison Calcium [Mass/Vol] 7.9 mg/dL Critically low 8.5-10.1 [facility] Comment on above: Performed By: #### U SUNITA, MG, RENAL #### [facility] [address] [place] [address] Dr. Silver Harrison Chloride [Moles/Vol] 108 mmol/L Critically high 98-107 [facility] Comment on above: Performed By: #### U SUNITA, MG, RENAL #### [facility] [address] [place] [address] Dr. Silver Harrison CO2 [Moles/Vol] 26.4 mmol/L Normal 21.0-32.0 [facility] Comment on above: Performed By: #### U SUNITA, MG, RENAL #### [facility] [address] [place] [address] Dr. Silver Harrison Creatinine [Mass/Vol] 4.33 mg/dL Critically high 0.55-1.02 [facility] Comment on above: Performed By: #### U SUNITA, MG, RENAL #### [facility] [address] [place] [address] Dr. Silver Harrison EGFR-AF CHINESE 12 mL/min/1.73m2 Critically low >=60 [facility] Comment on above: Performed By: #### U SUNITA, MG, RENAL #### [facility] [address] [place] [address] Dr. Silver Harrison EGFR-NON AF CHINESE 10 mL/min/1.73m2 Critically low >=60 [facility] Comment on above: Performed By: #### U SUNITA, MG, RENAL #### [facility] [address] [address] [address] Silver Harrison Glucose [Mass/Vol] 86 mg/dL Normal 74-106 [facility] Comment on above: Performed By: #### U SUNITA, MG, RENAL #### [facility] [address] [place] [address] Dr. Silver Harrison Potassium [Moles/Vol] 4.5 mmol/L Normal 3.5-5.1 [facility] Comment on above: Performed By: #### U SUNITA, MG, RENAL #### [facility] [address] [place] [address] Dr. Silver Harrison Sodium [Moles/Vol] 142 mmol/L Normal 136-145 [facility] Comment on above: Performed By: #### U SUNITA, MG, RENAL #### [facility] [address] [place] [address] Dr. Silver Harrison Urea nitrogen [Mass/Vol] 50.0 mg/dL Critically high 7.0-18.0 [facility] Comment on above: Performed By: #### U SUNITA, MG, RENAL #### [facility] [address] [place] [address] Dr. Silver Harrison Urea nitrogen/Creatinine [Mass ratio] 11.5 mg/mg Normal [facility] Comment on above: Performed By: #### U SUNITA, MG, RENAL #### [facility] [address] [place] [address] Dr. Silver Harrison CBC AUTO DIFFon 07-03-2022 BASO # 0.0 103/ul Normal 0.0-0.1 [facility] Comment on above: Performed By: #### U SUNITA, MG, RENAL #### [facility] [address] [address] [address] Silver Harrison Basophils/100 WBC (Bld) 0.4 % Normal 0.2-2.0 [facility] Comment on above: Performed By: #### U SUNITA, MG, RENAL #### [facility] [address] [place] [address] Dr. Silver Harrison EO # 0.3 103/ul Normal 0.0-0.7 [facility] Comment on above: Performed By: #### U SUNITA, MG, RENAL #### [facility] [address] [place] [address] Dr. Silver Harrison Eosinophils/100 WBC (Bld) 2.9 % Normal 0.9-7.0 [facility] Comment on above: Performed By: #### U SUNITA, MG, RENAL #### [facility] [address] [place] [address] Dr. Silver Harrison Erythrocyte distribution width (RBC) [Ratio] 12.9 % Normal 11.0-15.0 [facility] Comment on above: Performed By: #### U SUNITA, MG, RENAL #### [facility] [address] [place] [address] Dr. Silver Harrison Hematocrit (Bld) [Volume fraction] 28.0 % Critically low 36.0-48.0 [facility] Comment on above: Performed By: #### U SUNITA, MG, RENAL #### [facility] [address] [place] [address] Dr. Silver Harrison Hemoglobin (Bld) [Mass/Vol] 8.5 g/dL Critically low 12.0-16.0 [facility] Comment on above: Performed By: #### U SUNITA, MG, RENAL #### [facility] [address] [place] [address] Dr. Silver Harrison IG # 0.07 10e3/ul Critically high 0.00-0.03 [facility] Comment on above: Performed By: #### U SUNITA, MG, RENAL #### [facility] [address] [place] [address] Dr. Silver Harrison IG % 0.7 % Critically high 0.0-0.5 [facility] Comment on above: Performed By: #### U SUNITA, MG, RENAL #### [facility] [address] [place] [address] Dr. Silver Harrison LYMPH # 1.7 103/ul Normal 1.2-3.8 [facility] Comment on above: Performed By: #### U SUNITA, MG, RENAL #### [facility] [address] [place] [address] Dr. Silevr Harrison Lymphocytes/100 WBC (Bld) 17.7 % Critically low 20.5-60.0 [facility] Comment on above: Performed By: #### U SUNITA, MG, RENAL #### [facility] [address] [place] [address] Dr. Silver Harrison MANUAL DIFF REQ NO Normal [facility] Comment on above: Performed By: #### U SUNITA, MG, RENAL #### [facility] [address] [place] [address] Dr. Silver Harrison MCH (RBC) [Entitic mass] 29.0 pg Normal 26.7-34.0 [facility] Comment on above: Performed By: #### U SUNITA, MG, RENAL #### [facility] [address] [place] [address] Dr. Silver Harrison MCHC (RBC) [Mass/Vol] 30.4 g/dL Normal 29.9-35.2 [facility] Comment on above: Performed By: #### U SUNITA, MG, RENAL #### [facility] [address] [place] [address] Dr. Silver Harrison MCV (RBC) [Entitic vol] 95.6 fL Normal 81.0-99.0 [facility] Comment on above: Performed By: #### U SUNITA, MG, RENAL #### [facility] [address] [place] [address] Dr. Silver Harrison MONO # 0.6 103/ul Normal 0.3-0.8 [facility] Comment on above: Performed By: #### U SUNITA, MG, RENAL #### [facility] [address] [address] [address] Silver Harrison Monocytes/100 WBC (Bld) 5.7 % Normal 1.7-12.0 [facility] Comment on above: Performed By: #### U SUNITA, MG, RENAL #### [facility] [address] [place] [address] Dr. Silver Harrison NEUT # 7.1 103/ul Critically high 1.4-6.5 [facility] Comment on above: Performed By: #### U SUNITA, MG, RENAL #### [facility] [address] [place] [address] Dr. Silver Harrison Neutrophils/100 WBC (Bld) 72.6 % Normal 43.0-75.0 [facility] Comment on above: Performed By: #### U SUNITA, MG, RENAL #### [facility] [address] [place] [address] Dr. Silver Harrison Platelet mean volume (Bld) [Entitic vol] 9.8 fL Normal 9.5-13.5 [facility] Comment on above: Performed By: #### U SUNITA, MG, RENAL #### [facility] [address] [place] [address] Dr. Silver Harrison PLT 188 103/ul Normal 150-450 [facility] Comment on above: Performed By: #### U SUNITA, MG, RENAL #### [facility] [address] [place] [address] Dr. Silver Harrison RBC 2.93 106/ul Critically low 4.20-5.40 [facility] Comment on above: Performed By: #### U SUNITA, MG, RENAL #### [facility] [address] [place] [address] Dr. Silver Harrison WBC 9.7 103/ul Normal 4.0-11.0 [facility] Comment on above: Performed By: #### U SUNITA, MG, RENAL #### [facility] [address] [place] [address] Dr. Silver Harrison PROF CHEM 8 (BAS METB)on Anion gap [Moles/Vol] 10.9 mmol/L Normal [facility] Comment on above: Performed By: #### B MP #### [facility] [address] [address] [address] Silver Harrison Calcium [Mass/Vol] 8.5 mg/dL Normal 8.5-10.1 [facility] Comment on above: Performed By: #### B MP #### [facility] [address] [address] [address] Silver Harrison Chloride [Moles/Vol] 108 mmol/L Critically high 98-107 [facility] Comment on above: Performed By: #### B MP #### [facility] [address] [address] [address] Silver Harrison CO2 [Moles/Vol] 28.6 mmol/L Normal 21.0-32.0 [facility] Comment on above: Performed By: #### B MP #### [facility] [address] [address] [address] Silver Harrison Creatinine [Mass/Vol] 4.05 mg/dL Critically high 0.55-1.02 [facility] Comment on above: Performed By: #### B MP #### [facility] [address] [address] [address] Silver Harrison EGFR-AF CHINESE 13 mL/min/1.73m2 Critically low >=60 [facility] Comment on above: Performed By: #### B MP #### [facility] [address] [address] [address] Silver Harrison EGFR-NON AF CHINESE 11 mL/min/1.73m2 Critically low >=60 [facility] Comment on above: Performed By: #### B MP #### [facility] [address] [address] [address] Silver Harrison Glucose [Mass/Vol] 74 mg/dL Normal 74-106 [facility] Comment on above: Performed By: #### B MP #### [facility] [address] [address] [address] Silver Harrison Potassium [Moles/Vol] 4.5 mmol/L Normal 3.5-5.1 [facility] Comment on above: Performed By: #### B MP #### [facility] [address] [address] [address] Silver Harrison Sodium [Moles/Vol] 143 mmol/L Normal 136-145 [facility] Comment on above: Performed By: #### B MP #### [facility] [address] [address] [address] Silver Harrison Urea nitrogen [Mass/Vol] 45.0 mg/dL Critically high 7.0-18.0 [facility] Comment on above: Performed By: #### B MP #### [facility] [address] [address] [address] Silver Harrison Urea nitrogen/Creatinine [Mass ratio] 11.1 mg/mg Normal [facility] Comment on above: Performed By: #### B MP #### [facility] [address] [place] [address] Dr. Silver Harrison CBC AUTO DIFFon 07-01-2022 BASO # 0.1 103/ul Normal 0.0-0.1 [facility] Comment on above: Performed By: #### U SUNITA, MG, RENAL #### [facility] [address] [address] [address] Silver Harrison Basophils/100 WBC (Bld) 0.5 % Normal 0.2-2.0 [facility] Comment on above: Performed By: #### U SUNITA, MG, RENAL #### [facility] [address] [place] [address] Dr. Silver Harrison EO # 0.2 103/ul Normal 0.0-0.7 [facility] Comment on above: Performed By: #### U SUNITA, MG, RENAL #### [facility] [address] [place] [address] Dr. Silver Harrison Eosinophils/100 WBC (Bld) 2.4 % Normal 0.9-7.0 [facility] Comment on above: Performed By: #### U SUNITA, MG, RENAL #### [facility] [address] [place] [address] Dr. Silver Harrison Erythrocyte distribution width (RBC) [Ratio] 12.7 % Normal 11.0-15.0 [facility] Comment on above: Performed By: #### U SUNITA, MG, RENAL #### [facility] [address] [place] [address] Dr. Silver Harrison Hematocrit (Bld) [Volume fraction] 27.9 % Critically low 36.0-48.0 [facility] Comment on above: Performed By: #### U SUNITA, MG, RENAL #### [facility] [address] [place] [address] Dr. Silver Harrison Hemoglobin (Bld) [Mass/Vol] 8.6 g/dL Critically low 12.0-16.0 [facility] Comment on above: Performed By: #### U SUNITA, MG, RENAL #### [facility] [address] [place] [address] Dr. Silver Harrison IG # 0.10 10e3/ul Critically high 0.00-0.03 [facility] Comment on above: Performed By: #### U SUNITA, MG, RENAL #### [facility] [address] [place] [address] Dr. Silver Harrison IG % 1.0 % Critically high 0.0-0.5 [facility] Comment on above: Performed By: #### U SUNITA, MG, RENAL #### [facility] [address] [place] [address] Dr. Silver Harrison LYMPH # 1.9 103/ul Normal 1.2-3.8 [facility] Comment on above: Performed By: #### U SUNITA, MG, RENAL #### [facility] [address] [place] [address] Dr. Silver Harrison Lymphocytes/100 WBC (Bld) 19.1 % Critically low 20.5-60.0 [facility] Comment on above: Performed By: #### U SUNITA, MG, RENAL #### [facility] [address] [place] [address] Dr. Silver Harrison MANUAL DIFF REQ NO Normal [facility] Comment on above: Performed By: #### U SUNITA, MG, RENAL #### [facility] [address] [place] [address] Dr. Silver Harrison MCH (RBC) [Entitic mass] 29.5 pg Normal 26.7-34.0 [facility] Comment on above: Performed By: #### U SUNITA, MG, RENAL #### [facility] [address] [place] [address] Dr. Silver Harrison MCHC (RBC) [Mass/Vol] 30.8 g/dL Normal 29.9-35.2 [facility] Comment on above: Performed By: #### U SUNITA, MG, RENAL #### [facility] [address] [place] [address] Dr. Silver Harrison MCV (RBC) [Entitic vol] 95.5 fL Normal 81.0-99.0 [facility] Comment on above: Performed By: #### U SUNITA, MG, RENAL #### [facility] [address] [place] [address] Dr. Silver Harrison MONO # 0.6 103/ul Normal 0.3-0.8 [facility] Comment on above: Performed By: #### U SUNITA, MG, RENAL #### [facility] [address] [place] [address] Dr. Silver Harrison Monocytes/100 WBC (Bld) 5.4 % Normal 1.7-12.0 [facility] Comment on above: Performed By: #### U SUNITA, MG, RENAL #### [facility] [address] [place] [address] Dr. Silver Harrison NEUT # 7.3 103/ul Critically high 1.4-6.5 [facility] Comment on above: Performed By: #### U SUNITA, MG, RENAL #### [facility] [address] [place] [address] Dr. Silver Harrison Neutrophils/100 WBC (Bld) 71.6 % Normal 43.0-75.0 [facility] Comment on above: Performed By: #### U SUNITA, MG, RENAL #### [facility] [address] [place] [address] Dr. Silver Harrison Platelet mean volume (Bld) [Entitic vol] 10.0 fL Normal 9.5-13.5 [facility] Comment on above: Performed By: #### U SUNITA, MG, RENAL #### [facility] [address] [address] [address] Silver Harrison PLT 208 103/ul Normal 150-450 [facility] Comment on above: Performed By: #### U SUNITA, MG, RENAL #### [facility] [address] [address] [address] Silver Harrison RBC 2.92 106/ul Critically low 4.20-5.40 [facility] Comment on above: Performed By: #### U SUNITA, MG, RENAL #### [facility] [address] [address] [address] Silver Harrison WBC 10.2 103/ul Normal 4.0-11.0 [facility] Comment on above: Performed By: #### U SUNITA, MG, RENAL #### [facility] [address] [place] [address] Dr. Silver Harrison PROF CHEM 8 (BAS METB)on Anion gap [Moles/Vol] 12.7 mmol/L Normal [facility] Comment on above: Performed By: #### B MP #### [facility] [address] [place] [address] Dr. Silver Harrison Calcium [Mass/Vol] 8.5 mg/dL Normal 8.5-10.1 [facility] Comment on above: Performed By: #### B MP #### [facility] [address] [address] [address] Silver Harrison Chloride [Moles/Vol] 108 mmol/L Critically high 98-107 [facility] Comment on above: Performed By: #### B MP #### [facility] [address] [address] [address] Silver Harrison CO2 [Moles/Vol] 26.9 mmol/L Normal 21.0-32.0 [facility] Comment on above: Performed By: #### B MP #### [facility] [address] [place] [address] Dr. Silver Harrison Creatinine [Mass/Vol] 4.31 mg/dL Critically high 0.55-1.02 [facility] Comment on above: Performed By: #### B MP #### [facility] [address] [address] [address] Silver Harrison EGFR-AF CHINESE 12 mL/min/1.73m2 Critically low >=60 [facility] Comment on above: Performed By: #### B MP #### [facility] [address] [address] [address] Silver Harrison EGFR-NON AF CHINESE 10 mL/min/1.73m2 Critically low >=60 [facility] Comment on above: Performed By: #### B MP #### [facility] [address] [address] [address] Silver Harrison Glucose [Mass/Vol] 141 mg/dL Critically high 74-106 [facility] Comment on above: Performed By: #### B MP #### [facility] [address] [address] [address] Silver Harrison Potassium [Moles/Vol] 4.6 mmol/L Normal 3.5-5.1 [facility] Comment on above: Performed By: #### B MP #### [facility] [address] [address] [address] Silver Harrison Sodium [Moles/Vol] 143 mmol/L Normal 136-145 [facility] Comment on above: Performed By: #### B MP #### [facility] [address] [address] [address] Silver Harrison Urea nitrogen [Mass/Vol] 47.0 mg/dL Critically high 7.0-18.0 [facility] Comment on above: Performed By: #### B MP #### [facility] [address] [address] [address] Silver Harrison Urea nitrogen/Creatinine [Mass ratio] 10.9 mg/mg Normal [facility] Comment on above: Performed By: #### B MP #### [facility] [address] [address] [address] Silver Harrison PTH INTACTon 06-25-2022 PTH, Intact 132 pg/mL Critically high 15-65 [facility] Comment on above: Performed By: #### U SUNITA, MG, RENAL #### [facility] [address] [address] [address] Silver Harrison CBC AUTO DIFFon 06-24-2022 BASO # 0.0 103/ul Normal 0.0-0.1 [facility] Comment on above: Performed By: #### B MP #### [facility] [address] [address] [address] Silver Harrison Basophils/100 WBC (Bld) 0.5 % Normal 0.2-2.0 [facility] Comment on above: Performed By: #### B MP #### [facility] [address] [place] [address] Dr. Silver Harrison EO # 0.2 103/ul Normal 0.0-0.7 [facility] Comment on above: Performed By: #### B MP #### [facility] [address] [place] [address] Dr. Silver Harrison Eosinophils/100 WBC (Bld) 2.8 % Normal 0.9-7.0 [facility] Comment on above: Performed By: #### B MP #### [facility] [address] [place] [address] Dr. Silver Harrison Erythrocyte distribution width (RBC) [Ratio] 12.5 % Normal 11.0-15.0 [facility] Comment on above: Performed By: #### B MP #### [facility] [address] [place] [address] Dr. Silver Harrison Hematocrit (Bld) [Volume fraction] 26.0 % Critically low 36.0-48.0 [facility] Comment on above: Performed By: #### B MP #### [facility] [address] [place] [address] Dr. Silver Harrison Hemoglobin (Bld) [Mass/Vol] 8.1 g/dL Critically low 12.0-16.0 [facility] Comment on above: Performed By: #### B MP #### [facility] [address] [place] [address] Dr. Silver Harrison IG # 0.08 10e3/ul Critically high 0.00-0.03 [facility] Comment on above: Performed By: #### B MP #### [facility] [address] [place] [address] Dr. Silver Harrison IG % 0.9 % Critically high 0.0-0.5 [facility] Comment on above: Performed By: #### B MP #### [facility] [address] [place] [address] Dr. Silver Harrison LYMPH # 1.6 103/ul Normal 1.2-3.8 [facility] Comment on above: Performed By: #### B MP #### [facility] [address] [place] [address] Dr. Silver Harrison Lymphocytes/100 WBC (Bld) 19.4 % Critically low 20.5-60.0 [facility] Comment on above: Performed By: #### B MP #### [facility] [address] [place] [address] Dr. Silver Harrison MANUAL DIFF REQ NO Normal [facility] Comment on above: Performed By: #### B MP #### [facility] [address] [place] [address] Dr. Silver Harrison MCH (RBC) [Entitic mass] 30.0 pg Normal 26.7-34.0 [facility] Comment on above: Performed By: #### B MP #### [facility] [address] [place] [address] Dr. Silver Harrison MCHC (RBC) [Mass/Vol] 31.2 g/dL Normal 29.9-35.2 [facility] Comment on above: Performed By: #### B MP #### [facility] [address] [place] [address] Dr. Silver Harrison MCV (RBC) [Entitic vol] 96.3 fL Normal 81.0-99.0 [facility] Comment on above: Performed By: #### B MP #### [facility] [address] [place] [address] Dr. Silver Harrison MONO # 0.6 103/ul Normal 0.3-0.8 [facility] Comment on above: Performed By: #### B MP #### [facility] [address] [address] [address] Silver Harrison Monocytes/100 WBC (Bld) 6.6 % Normal 1.7-12.0 [facility] Comment on above: Performed By: #### B MP #### [facility] [address] [address] [address] Silver Harrison NEUT # 5.9 103/ul Normal 1.4-6.5 [facility] Comment on above: Performed By: #### B MP #### [facility] [address] [place] [address] Dr. Silver Harrison Neutrophils/100 WBC (Bld) 69.8 % Normal 43.0-75.0 [facility] Comment on above: Performed By: #### B MP #### [facility] [address] [place] [address] Dr. Silver Harrison Platelet mean volume (Bld) [Entitic vol] 10.0 fL Normal 9.5-13.5 [facility] Comment on above: Performed By: #### B MP #### [facility] [address] [place] [address] Dr. Silver Harrison PLT 180 103/ul Normal 150-450 [facility] Comment on above: Performed By: #### B MP #### [facility] [address] [place] [address] Dr. Silver Harrison RBC 2.70 106/ul Critically low 4.20-5.40 [facility] Comment on above: Performed By: #### B MP #### [facility] [address] [place] [address] Dr. Silver Harrison WBC 8.4 103/ul Normal 4.0-11.0 [facility] Comment on above: Performed By: #### B MP #### [facility] [address] [place] [address] Dr. Silver Harrison FERRITINon 06-24-2022 Ferritin [Mass/Vol] 535.0 ng/mL Critically high 8.0-252.0 [facility] Comment on above: Performed By: #### F ETIBC, FERR, VITAD #### [facility] [address] [place] [address] Dr. Silver Harrison IRON AND TIBCon 06-24-2022 % SATURATION 16.9 % Normal [facility] Comment on above: Performed By: #### F ETIBC, FERR, VITAD #### [facility] [address] [place] [address] Dr. Silver Harrison Iron [Mass/Vol] 31.0 ug/dL Critically low 50.0-170.0 [facility] Comment on above: Performed By: #### F ETIBC, FERR, VITAD #### [facility] [address] [place] [address] Dr. Silver Harrison TIBC DIRECT 183.0 ug/dL Critically low 250.0-450. 0 [facility] Comment on above: Performed By: #### F ETIBC, FERR, VITAD #### [facility] [address] [place] [address] Dr. Silver Harrison MAGNESIUMon 06-24-2022 Magnesium [Mass/Vol] 2.3 mg/dL Normal 1.8-2.4 [facility] Comment on above: Performed By: #### U SUNITA, MG, RENAL #### [facility] [address] [place] [address] Dr. Silver Harrison RENAL FUNCTION PANELon 06-24 Albumin [Mass/Vol] 2.5 g/dL Critically low 3.4-5.0 [facility] Comment on above: Performed By: #### U SUNITA, MG, RENAL #### [facility] [address] [place] [address] Dr. Silver Harrison Calcium [Mass/Vol] 8.4 mg/dL Critically low 8.5-10.1 [facility] Comment on above: Performed By: #### U SUNITA, MG, RENAL #### [facility] [address] [place] [address] Dr. Silver Harrison Chloride [Moles/Vol] 107 mmol/L Normal 98-107 [facility] Comment on above: Performed By: #### U SUNITA, MG, RENAL #### [facility] [address] [address] [address] Silver Harrison CO2 [Moles/Vol] 24.2 mmol/L Normal 21.0-32.0 [facility] Comment on above: Performed By: #### U SUNITA, MG, RENAL #### [facility] [address] [address] [address] Silver Harrison Creatinine [Mass/Vol] 4.38 mg/dL Critically high 0.55-1.02 [facility] Comment on above: Performed By: #### U SUNITA, MG, RENAL #### [facility] [address] [address] [address] Silver Harrison EGFR-AF CHINESE 12 mL/min/1.73m2 Critically low >=60 [facility] Comment on above: Performed By: #### U SUNITA, MG, RENAL #### [facility] [address] [address] [address] Silver Harrison EGFR-NON AF CHINESE 10 mL/min/1.73m2 Critically low >=60 [facility] Comment on above: Performed By: #### U SUNITA, MG, RENAL #### [facility] [address] [address] [address] Silver Harrison Glucose [Mass/Vol] 55 mg/dL Critically low 74-106 [facility] Comment on above: Performed By: #### U SUNITA, MG, RENAL #### [facility] [address] [address] [address] Silver Harrison Phosphate [Mass/Vol] 6.0 mg/dL Critically high 2.6-4.7 [facility] Comment on above: Performed By: #### U SUNITA, MG, RENAL #### [facility] [address] [address] [address] Silver Harrison Potassium [Moles/Vol] 4.3 mmol/L Normal 3.5-5.1 [facility] Comment on above: Performed By: #### U SUNITA, MG, RENAL #### [facility] [address] [address] [address] Silver Harrison Sodium [Moles/Vol] 142 mmol/L Normal 136-145 [facility] Comment on above: Performed By: #### U SUNITA, MG, RENAL #### [facility] [address] [place] [address] Dr. Silver Harrison Urea nitrogen [Mass/Vol] 55.0 mg/dL Critically high 7.0-18.0 [facility] Comment on above: Performed By: #### U SUNITA, MG, RENAL #### [facility] [address] [place] [address] Dr. Silver Harrison URIC ACID SERUMon 06-24-2022 Urate [Mass/Vol] 7.7 mg/dL Critically high 2.6-6.0 [facility] Comment on above: Performed By: #### U SUNITA, MG, RENAL #### [facility] [address] [place] [address] Dr. Silver Harrison VITAMIN D 25 OHon 06-24-2022 VIT D 25-OH 29.0 ng/mL Normal [facility] Comment on above: Performed By: #### F ETIBC, FERR, VITAD #### [facility] [address] [place] [address] Dr. Silver Harrison VIT D RANGES SEE BELOW Normal [facility] Comment on above: Result Comment: <20 ng/mL Vit D deficient 20 - <30 ng/mL Vit D insufficient 30 - 100 ng/mL Vit D sufficient >100 ng/mL Potential Toxicity Performed By: #### F ETIBC, FERR, VITAD #### [facility] [address] [place] [address] Dr. Silver Harrison BASIC MET PANEL W/GFRon 05-28 Calcium [Mass/Vol] 8.0 mg/dL Low (8.6 - 10.6) [facility] Comment on above: Order Comment: STAT FACILITY: [facility] [id number] Performed By: #### C HEM-B, T20 #### [facility] [address] [place], [address] Chloride [Moles/Vol] 112 mmol/L High (98 - 107) [facility] Comment on above: Order Comment: STAT FACILITY: [facility] [id number] Performed By: #### C HEM-B, T20 #### [facility] [address] [place], [address] CO2 [Moles/Vol] 19 mmol/L Low (22 - 30) [facility] Order Comment: STAT F[facility]: [facility] [id number] Performed By: #### C HEM-B, T20 #### [facility] [address] [place], [address] Creatinine [Mass/Vol] 4.98 mg/dL High (0.52 - 1.04) [facility]: Order Comment: STAT FACILITY: [facility] [id number] Performed By: #### C HEM-B, T20 #### [facility] [address] [place], [address] GFR- AMER 10.3 ML/M1.7 Low (60.0 - 140.1) [facility] Comment on above: Order Comment: STAT FACILITY: [facility] [id number] Performed By: #### C HEM-B, T20 #### [facility] [address] [place], [address] GFR-NON AFRIC-AMER 8.5 ML/M1.7 Low (60.0 - 115.8) [facility] Comment on above: Order Comment: STAT FACILITY: [facility] [id number] Performed By: #### C HEM-B, T20 #### [facility] [address] [place], [address] Glucose [Mass/Vol] 104 mg/dL Normal (74 - 106) [facility] Comment on above: Order Comment: STAT FACILITY: [facility] [id number] Performed By: #### C HEM-B, T20 #### [facility] [address] [place], [address] Potassium [Moles/Vol] 6.1 mmol/L Critically high (3. 5 - 5.1) [facility] Comment on above: Order Comment: STAT FACILITY: [facility] [id number] Result Comment: CRIT ICAL RESULT REPEATED AND REPORTED TO: LISA MARSHALL @ 11:50 AM 06/15/2022 RP Performed By: #### C HEM-B, T20 #### [facility] [address] [place], [address] Sodium [Moles/Vol] 142 mmol/L Normal (137 - 145) [place] [facility] Comment on above: Order Comment: STAT FACILITY: [facility] [id number] Performed By: #### C HEM-B, T20 #### [facility] [facility] [address] [place], [address] Urea nitrogen [Mass/Vol] 59 mg/dL High (7 - 17) [facility] Comment on above: Order Comment: STAT FACILITY: [facility] [id number] Performed By: #### C HEM-B, T20 #### [facility] [address] [place], [address] CBC NO DIFFon 06-15-2022 Hematocrit (Bld) [Volume fraction] 28.5 % Low (37.0 - 47.0) [facility] Comment on above: Performed By: #### C HEM-B, T20 #### [facility] [facility] [address] [place], [address] Hemoglobin (Bld) [Mass/Vol] 8.8 g/dL Low (12.0 - 16.0) [place] [facility] Comment on above: Performed By: #### C HEM-B, T20 #### [facility] [facility] [address] [place], [address] MCH (RBC) [Entitic mass] 30.0 pg Normal (27.0 - 33.0) [place] [facility] Comment on above: Performed By: #### C HEM-B, T20 #### [place] [facility] [address] [place], [address] MCHC (RBC) [Mass/Vol] 30.9 g/dL Normal (30.0 - 37.0) [facility] Comment on above: Performed By: #### C HEM-B, T20 #### [place] [facility] [address] [place], [address] MCV (RBC) [Entitic vol] 97.3 fL Normal (81.0 - 99.0) [facility] Comment on above: Performed By: #### C HEM-B, T20 #### [place] [facility] [address] [place], [address] PLT 151 x10^3ul Normal (130 - 400) [facility] Comment on above: Performed By: #### C HEM-B, T20 #### [place] [facility] [address] [facility], [address] RBC 2.93 x10^6ul Low (4.20 - 5.40) [facility] Comment on above: Performed By: #### C HEM-B, T20 #### [place] [facility] [address] [place], [address] RDW-SD 44.6 fl Normal (37.0 - 49.0) [facility] Comment on above: Performed By: #### C HEM-B, T20 #### [place] [facility] [address] [place], [address] WBC 11.09 x10^3ul High (3.80 - 10.60) [facility] Comment on above: Performed By: #### C HEM-B, T20 #### [place] [facility] [address] [place], [address] MG MAMM SCREEN MOIRA W CADon 0 9- MG MAMM SCREEN MOIRA W CAD Patient: ESSENCE CASTORENA Exam Date: 01/19/2022 : 1950 Gender:F Ordering : DR CHRISTOPHER MANN M.D. Admission #: [id number] Family : Order #: [id number] CLICK HERE TO VIEW EXAM RADIOLOGY REPORT [...] pancreatic cancer at age 67. LOCATION: [facility] BREAST COMPOSITION: Extremely dense, which lowers [...] MD on 01/19/2022 at 12:12 Normal [facility] Coding Summary.on 01-06-2019 Coding Summary. 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 I12.9 Hypertensive chronic kidney disease with stage 1 through stage 4 chronic kidney disease, or unspecified chronic kidney disease E11.22 Type 2 diabetes mellitus with diabetic chronic kidney disease N18.3 Chronic kidney disease, stage 3 (moderate) F41.9 Anxiety disorder, unspecified Z79.4 [facility] (current) use of insulin PYMT PROC APC STAT DESCRIPTION DOCTOR NAME DATE 59884 5733 S Removal impacted cerumen Emanuel Hartley DO Fela 01/04/2019 requiring instrumentation, unilateral 50 Bilateral Procedure NOTE: The code number assigned matches the documented diagnosis and / or procedure in the patient's chart. However, the narrative phrase printed from the coding software may appear abbreviated, or result in slightly different terminology. Coded By: Scarlett Gomez Date Saved: 01/06/2019 08:21 am Normal [facility] Main OR Intraoperative Recor don 01-05-2019 Main OR Intraoperative Record IntraOp Document Type FT Summary Primary Physician: Emanuel Hartley DO Finalized Date/Time: 01/05/19 12:31:16 Pt. Name: ESSENCE CASTORENA Aleta Schmidt./Sex: 1950 Female Med Rec #: [id number] Physician: Emanuel Hartley DO Financial #: [id number] Pt. Type: A Room/Bed: [place] [address] Admit/Disch: 01/04/19 13:05:00 - 01/04/19 14:15:00 Institution: [...] Carleen Gill Role Performed Surgeon - Primary Custom Protection Officer - Primary Scrub - Primary Time In [...] taken back to asu for discharge. 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 Normal [facility] Inpatient Patient Summaryon 01-04-2019 Inpatient Patient Summary [facility] Clinical Discharge Instructions PERSON INFORMATION Name: ESSENCE CASTORENA MRN: [id number]-- PHYSICIANS Admitting Physician: Emanuel Hartley DO Attending Physician: Emanuel Hartley DO PCP: ALDA MITCHELL DO Discharge Diagnosis: Cerumen debris on tympanic membrane; Conductive hearing loss of both ears Comment: PATIENT EDUCATION INFORMATION Instructions: Medication Leaflets: Follow up: With: Address: When: Emanuel Hartley [address] [place] [address] [phone] Business (1) MEDICATION LIST Comment: Normal [facility] Operative Reporton 9 Operative Report Date [...] the Operating Room Suite at [facility], at which time she was placed [...] and satisfactory condition. Danilo Vera Dictated: 01/04/2019 #[id number] Typed: 01/04/2019 #[id number] cc: Emanuel Hartley D.O. [facility] Comment on above: Result Comment: Elec [...] of cerumen impaction Anesthesia type: local. Normal [facility] Comment on above: Result Comment: Elec tronically Signed By: Emanuel Hartley DO\.br\Date and Time Signed: 01/04/19 14:09 EDT Patient Education - Texton 0 01-04-2019 Patient Education - Text [facility] Vital Signs Date Time Vital Sign Value Performing Clinician Facility 09-17-2023 15:20-0400 Body temperature 97.4 [degF] MD Christopher Mann Work Phone: [facility] 09-17-2023 15:20-0400 Diastolic blood pressure 75 mm[Hg] MD Christopher Mann Work Phone: [facility] 09-17-2023 15:20-0400 Heart rate 86 /min MD Christopher Mann Work Phone: [facility] 09-17-2023 15:20-0400 Respiratory rate 18 /min MD Christopher Mann Work Phone: [facility] 09-17-2023 15:20-0400 SaO2% (BldA) [Mass fraction] 97 % MD Christopher Mann Work Phone: [facility] 09-17-2023 15:20-0400 Systolic blood pressure 143 mm[Hg] MD Christohper Mann Work Phone: [facility] 09-17-2023 06:05-0400 Body weight 101.8 kg MD Christopher Mann Work Phone: [facility] 09-16-2023 16:08-0400 Body height 162.56 cm MD Christopher Mann Work Phone: [facility] 09-16-2023 00:31-0400 Inhaled oxygen flow rate 2 L/min MD Christopher Mann Work Phone: [facility] 09-15-2023 16:45-0400 Inhaled oxygen flow rate 2 L/min MD Christopher Mann Work Phone: [facility] 09-15-2023 16:45-0400 SaO2% (BldA) [Mass fraction] 98 % MD Christopher Mann Work Phone: [facility] 09-15-2023 16:31-0400 Diastolic blood pressure 54 mm[Hg] MD Christopher Mann Work Phone: [facility] 09-15-2023 16:31-0400 Heart rate 60 /min MD Christopher Mann Work Phone: [facility] 09-15-2023 16:31-0400 Systolic blood pressure 96 mm[Hg] MD Christopher Mann Work Phone: [facility] 09-15-2023 14:03-0400 Body temperature 97.4 [degF] MD Christopher Mann Work Phone: [facility] 09-15-2023 14:03-0400 Respiratory rate 18 /min MD Christopher Mann Work Phone: [facility] 09-15-2023 09:31-0400 Body height 167.64 cm MD Christopher Mann Work Phone: [facility] 09-15-2023 09:31-0400 Body weight 110.6 kg MD Christopher Mann Work Phone: [facility] 08-18-2023 08:56-0400 Body temperature 97.4 [degF] MD Christopher Mann Work Phone: [facility] 08-18-2023 08:56-0400 Body weight 102.51 kg MD Christopher Mann Work Phone: [facility] 08-18-2023 08:56-0400 Diastolic blood pressure 53 mm[Hg] MD Christopher Mann Work Phone: [facility] 08-18-2023 08:56-0400 Heart rate 75 /min MD Christopher Mann Work Phone: [facility] 08-18-2023 08:56-0400 Respiratory rate 18 /min MD Christopher Mann Work Phone: [facility] 08-18-2023 08:56-0400 SaO2% (BldA) [Mass fraction] 96 % MD Christopher Mann Work Phone: [facility] 08-18-2023 08:56-0400 Systolic blood pressure 112 mm[Hg] MD Christopher Mann Work Phone: [facility] 03-23-2023 14:06-0500 Diastolic blood pressure 80 mm[Hg] Danii Rodriguez MD Work Phone: [facility] 03-23-2023 14:06-0500 Heart rate 76 /min Danii Rodriguez MD Work Phone: [facility] 03-23-2023 14:06-0500 Systolic blood pressure 132 mm[Hg] Danii Rodriguez MD Work Phone: [facility] 02-05-2023 09:31-0400 Body temperature 98.2 [degF] MD Christopher Mann Work Phone: [facility] 02-05-2023 09:31-0400 Diastolic blood pressure 70 mm[Hg] MD Christopher Mann Work Phone: [facility] 02-05-2023 09:31-0400 Heart rate 72 /min MD Christopher Mann Work Phone: [facility] 02-05-2023 09:31-0400 Respiratory rate 18 /min MD Christopher Mann Work Phone: [facility] 02-05-2023 09:31-0400 SaO2% (BldA) [Mass fraction] 97 % MD Christopher Mann Work Phone: [facility] 02-05-2023 09:31-0400 Systolic blood pressure 130 mm[Hg] MD Christopher Mann Work Phone: [facility] 11-11-2022 16:12-0400 Diastolic blood pressure 68 mm[Hg] Christopher Sandhu [place] Work Phone: [facility] [address] DO Work Phone: 11-11-2022 16:12-0400 Heart rate 84 /min Christopher Sandhu Johnathan Work Phone: [facility] [address] DO Work Phone: 11-11-2022 16:12-0400 Systolic blood pressure 122 mm[Hg] Christopher Sandhu Johnathan Work Phone: [facility] [address] DO Work Phone: 07-31-2022 19:37-0400 Diastolic blood pressure 65 mm[Hg] MD Christopher Mann Work Phone: [facility] 07-31-2022 19:37-0400 Heart rate 78 /min MD Christopher Mann Work Phone: [facility] 07-31-2022 19:37-0400 Respiratory rate 20 /min MD Christopher Mann Work Phone: [facility] 07-31-2022 19:37-0400 SaO2% (BldA) [Mass fraction] 98 % MD Christopher Mann Work Phone: [facility] 07-31-2022 19:37-0400 Systolic blood pressure 142 mm[Hg] MD Christopher Mann Work Phone: [facility] 07-31-2022 15:05-0400 Body height 162.56 cm MD Christopher aMnn Work Phone: [facility] 07-31-2022 15:05-0400 Body temperature 97.6 [degF] MD Christopher Mann Work Phone: [facility] 07-31-2022 15:05-0400 Body weight 106.14 kg MD Christopher Mann Work Phone: [facility] 07-31-2022 10:41-0400 Body temperature 98.4 [degF] MD Christopher Mann Work Phone: [facility] 07-31-2022 10:41-0400 Body weight 109 kg MD Christopher Mann Work Phone: [facility] 07-31-2022 10:41-0400 Diastolic blood pressure 68 mm[Hg] MD Christopher Mann Work Phone: [facility] 07-31-2022 10:41-0400 Heart rate 74 /min MD Christopher Mann Work Phone: [facility] 07-31-2022 10:41-0400 Respiratory rate 20 /min MD Christopher Mann Work Phone: [facility] 07-31-2022 10:41-0400 SaO2% (BldA) [Mass fraction] 97 % MD Christopher Mann Work Phone: [facility] 07-31-2022 10:41-0400 Systolic blood pressure 136 mm[Hg] MD Christopher Mann Work Phone: [facility] 07-14-2022 17:20-0400 Body height 160.02 cm Essie Merlyn Other [facility] [employer] Other 07-14-2022 17:20-0400 Diastolic blood pressure 70 mm[Hg] Essie Merlyn Other [employer] Other 07-14-2022 17:20-0400 Respiratory rate 20 /min Essie Merlyn Other [employer] Other 07-14-2022 17:20-0400 SaO2% (BldA) [Mass fraction] 96 % Essie Merlyn Other [employer] Other 07-14-2022 17:20-0400 Systolic blood pressure 153 mm[Hg] Essie Salas Other [facility] [employer] Other 07-01-2022 09:42-0500 Body temperature 98.1 [degF] MD Christopher Mann Work Phone: [facility] 07-01-2022 09:42-0500 Diastolic blood pressure 71 mm[Hg] MD Christopher Mann Work Phone: [facility] 07-01-2022 09:42-0500 Heart rate 68 /min MD Christopher Mann Work Phone: [facility] 07-01-2022 09:42-0500 Respiratory rate 18 /min MD Christopher Mann Work Phone: [facility] 07-01-2022 09:42-0500 SaO2% (BldA) [Mass fraction] 96 % MD Christopher Mann Work Phone: [facility] 07-01-2022 09:42-0500 Systolic blood pressure 134 mm[Hg] MD Christopher Mann Work Phone: [facility] 07-01-2022 09:27-0500 Body height 162.56 cm MD Christopher Mann Work Phone: [facility] Encounters Encounter Date Encounter Type Care Provider Facility Start: 09-15-2023 Non-patient / Non-visit MD Tsering Mann Work Phone: [facility] Work Phone: Start: 09-15-2023 End: 09-17-2023 Evaluation and management of inpatient MD Christopher Mann Work Phone: [facility] Work Phone: Start: 08-18-2023 End: 08-18-2023 ambulatory MD Christopher Mann Work Phone: [facility] Work Phone: Start: 08-18-2023 End: 08-18-2023 Patient encounter procedure MD Christopher Mann Work Phone: [facility] Work Phone: Start: 08-18-2023 Registered Recurring MD Christopher Mann Work Phone: [facility] Work Phone: Start: 08-18-2023 ambulatory Essence Alicea Facility:[facility] Start: 08-18-2023 Non-patient / Non-visit MD Tsering Mann Work Phone: [facility] Work Phone: Start: 07-18-2023 Non-patient / Non-visit MD Tsering Mann Work Phone: [facility] Work Phone: Start: 06-19-2023 Non-patient / Non-visit MD Tsering Mann Work Phone: [facility] Work Phone: Start: 03-23-2023 End: 03-23-2023 ambulatory [facility] Start: 03-23-2023 End: 03-23-2023 Office outpatient visit 15 minutes Danii Rodriguez MD Work Phone: [facility] Comment on above: Atherosclerosis of n ative coronary artery of seneca heart without angina pectoris (Primary Dx); Chest discomfort; Essential hypertension, benign; Mixed hyperlipidemia; Dialysis patient (CMS/HCC); Cerebrovascular accident (CVA), unspecified mechanism (CMS/HCC) Start: 02-05-2023 End: 02-05-2023 ambulatory MD Crhistopher Mann Work Phone: [facility] Work Phone: Start: 02-05-2023 End: 02-05-2023 Registered Recurring MD Christopher Mann Work Phone: [facility] Work Phone: Start: 11-11-2022 Office outpatient vi sit 25 minutes Christopher Mann Work Phone: [facility] DO Work Phone: Start: 11-11-[address] Danii Rodriguez Facility:[id number] Start: 09-07-2022 End: 09-07-[address] CHRISTOPHER MANN Facility:H1 Start: 08-04-2022 ambulatory Danii Rodriguez Faci lity:[id number] Start: 08-03-2022 ambulatory Danii Rodriguez Faci lity:[id number] Start: 08-02-2022 ambulatory Danii Rodriguez Faci lity:[id number] Start: 08-01-[address] Danii Rodriguez Facility:[id number] Start: 08-01-2022 ambulatory Nikourchristopher Trabreynaldossi Faci lity:[id number] Start: 07-31-2022 Evaluation and manag ement of inpatient MD Christopher Mann Work Phone: [facility] Work Phone: Start: 07-31-2022 Registered Recurring MD Christopher Mann [facility] Phone: [facility] Work Phone: Start: 07-31-2022 End: 07-31-[address] CHRISTOPHER MANN Facility:[facility]1 Start: 07-29-2022 End: 07-29-[address] CHRISTOPHER MANN Facility:[facility]1 Start: 07-24-2022 End: 07-24-[address] CHRISTOPHER MANN Facility:[facility]1 Start: 07-21-2022 End: 07-21-2022 ambulatory Essie Salas Other [facility] [employer] Other Start: 07-21-2022 Telephone encounter Essie Salas [facility] Start: 07-20-2022 Telephone encounter Essie Merlyn [facility] Start: 07-20-2022 End: 07-20-2022 ambulatory ESSIE MERLYN [facility] [employer] Other Start: 07-17-2022 End: 07-17-[address] CHRISTOPHER MANN Facility:[facility]1 Start: 07-14-2022 End: 07-14-2022 ambulatory Essie Merlyn Other [facility] [employer] Other Start: 07-14-2022 Office outpatient ne w 45 minutes Essie Merlyn [facility] Start: 07-03-2022 End: 07-03-[address] ARTURO GUO . Facility:[facility]1 Start: 07-01-2022 End: 07-01-2022 ambulatory MD Christopher Mann Work Phone: [facility] Work Phone: Start: 07-01-2022 End: 07-01-2022 Registered Recurring MD Christopher Mann Work Phone: [facility] Work Phone: Start: 06-24-2022 End: 06-24-[address] CHRISTOPHER MANN Facility:H1 Start: 01-19-2022 End: 01-20-[address] CHRISTOPHER MANN Facility:[facility]1 Procedures Date Procedure Procedure Detail Performing Clinician Start: 09-15-2023 MRI of head MD Christopher lee Work Phone: Start: 09-15-2023 Urine culture MD Christopher Mann Work Phone: Start: 09-15-2023 CT angiography of head MD Christopher Mann Work Phone: Start: 09-15-2023 CT angiography of ne ck vessels MD Christopher Mann Work Phone: Start: 09-15-2023 CT of head without contrast MD Christopher Mann Work Phone: Start: 09-15-2023 Plain chest X-ray MD James Mann Work Phone: Start: 01-29-2023 Mammography Danii phillips MD Work Phone: Start: 07-31-2022 Plain chest X-ray Ru gen [place] Work Phone: Appendectomy Rugarlet Sandhu [place] Work Phone: Hysterectomy Rugarlet Sandhu [place] Work Phone: Operative procedure on knee Rugen M Johnathan Work Phone: Total colonoscopy Christopher Sandhu [place] Work Phone: Plan of Treatment Date Care Activity Detail Author Start: 03-28-2024 End: 03-28-2024 Patient encounter procedure 03/28/2024 2:00 PM EST Office Visit [place] [address] [place] [address] Danii Rodriguez MD [address] [place] [address] [facility] Start: 01-30-2024 Screening for malignant neoplasm of breast Mammogram [facility] Start: 09-17-2023 [facility] Start: 09-16-2023 [facility] Start: 09-15-2023 End: 09-15-2023 [facility] Start: 09-15-2023 Hospital admission [facility] Start: 09-15-2023 MRI of head MR head/brain wo con [facility] Start: 09-15-2023 Referral to fire dispatcher [facility] Start: 09-15-2023 Referral to neurologist [facility] Start: 09-15-2023 Bacteria identified in Blood by Culture Blood Culture [facility] Start: 09-15-2023 Bacteria identified in Urine by Culture Urine Culture [facility] Start: 09-15-2023 Blood culture for bacteria, including anaerobic screen Blood Culture [facility] Start: 03-23-2023 FUV, Provider: Danii Rodriguez, Status: Pen, Time: 2:20 PM FUV, Provider: Danii Rodriguez, Status: Pen, Time: 2:20 PM -[facility] [address] DO Work Phone: Start: 12-25-2022 Influenza vaccination Influenza Vaccine (#1) [facility] Start: 07-31-2022 Bacteria identified in Urine by Culture [facility] Start: 11-19-1999 Zoster Vaccines (1 of 2) Zoster Vaccines (1 of 2) [facility] Start: 11-19-1971 DTaP/Tdap/Td Vaccines (1 - Tdap) DTaP/Tdap/Td Vaccines (1 - Tdap) [facility] Start: 11-19-1967 Diabetes mellitus screening Diabetes Screening [facility] Start: 11-19-1967 Hepatitis C screening Hepatitis C Screening [facility] Start: 11-19-1955 Pneumococcal Vaccine: 65+ Years (1 - PCV) Pneumococcal Vaccine: 65+ Years (1 - PCV) [facility] Start: 05-21-1950 COVID-19 Vaccine (#1) COVID-19 Vaccine (#1) [facility] Start: 1950 Lipid panel Lipid Panel [facility] Start: 1950 Screening for malignant neoplasm of colon [facility] Start: 1950 Yearly Adult Physical Yearly Adult Physical [facility] Comprehensive metabo lic 2000 panel - Serum or Plasma [facility] Immunizations Immunization Date Immunization Notes Care Provider Fa cility 05-03-2020 COVID-19 mRNAManjinder (Pfizer) MD Christopher Mann Work Phone: [facility] 04-15-2020 COVID-19 Manjinder Gonzalez (Pfizer) MD Christopher Mann Work Phone: [facility] Payers Date Payer Category Payer Private Health Insurance [id number] 2022 Self-pay [id number] 2017 Medicaid MEDICAID MEDICAI D [id number] 2017-Present [address] [place] [address] [id number] 1959 Medicaid [id number] 1959 Medicare [id number] 1950 Unknown [id number] 2.16.840.1.549804.3.579.2.3 56 1949 Unknown [id number] 2.16.840.1.730336.3.579.2.3 56 1949 Unknown [id number] 2.16.840.1.195060.3.579.2.3 56 1949 Unknown [id number] 2.16.840.1.570398.3.579.2.3 56 1949 Unknown [id number] 2.16.840.1.652083.3.579.2.3 56 1949 Unknown [id number] 2.16.840.1.629309.3.579.2.5 93 1949 Unknown [id number] 2.16.840.1.460026.3.579.2.5 93 1949 Unknown [id number] 2.16.840.1.372838.3.579.2.5 93 1949 Unknown [id number] 2.16.840.1.467197.3.579.2.5 93 1949 Unknown [id number] 2.16.840.1.971641.3.579.2.5 93 1949 Unknown [id number] 2.16.840.1.177563.3.579.2.5 93 1949 Unknown [id number] 2.16.840.1.829082.3.579.2.5 93 1949 Unknown [id number] 2.16.840.1.455088.3.579.2.5 93 1949 Unknown [id number] 2.16.840.1.981305.3.579.2.5 93 1949 Unknown [id number] 2.16.840.1.480929.3.579.2.5 93 1949 Unknown [id number] 2.16.840.1.505709.3.579.2.3 56 1949 Unknown [id number] 2.16.840.1.287407.3.579.2.3 56 1949 Unknown [id number] 2.16.840.1.127943.3.579.2.1 244 Unknown [facility] [id number] Unknown Unknown [id number] 2.16.840.1.872438.3.579.2.5 31 Unknown [id number] 2.16.840.1.901958.3.579.2.5 31 Social History Date Type Detail Facility Start: 07-01-2022 End: 09-15-2023 Tobacco smoking status ARIS Ex-smoker (finding) [facility] Start: 1950 Sex Assigned At Female [facility] Start: 03-23-2023 Sex Assigned At [facility] [employer] Other Start: 03-23-2023 Consumes alcohol occasionally Consumes alcohol occasionally -[facility] [address] DO Work Phone: History of tobacco use Current smoker [facility] Work Phone: History of tobacco use Cigarette Smoker [facility] Work Phone: Start: 03-23-2023 Tobacco use and exposure Smokeless tobacco non-user [facility] Work Phone: Start: 03-23-2023 Alcohol intake Ex-drinker (finding) [facility] Work Phone: Start: 03-19-2023 Alcohol Comment occasional [facility] Work Phone: Start: 1950 Sex Assigned At Not on file [facility] Work Phone: Start: 03-13-2023 End: 03-23-2023 Exposure to SARS-CoV-2 (event) Not sure [facility] Medical Equipment Procedure Code Equipment Code Equipment Origin al Text Equipment Identifier Dates Phacoemulsification of cataract with intraocular lens implantation Posterior-chamber intraocular lens, pseudophakic [id number] FDA Start: 04-10-2021 Phacoemulsification of cataract with intraocular lens implantation Posterior-chamber intraocular lens, pseudophakic [id number] FDA Start: 05-22-2021 Goals Date Patient Goal Desired Activity /State Functional Status Date Assessment Result Facility 09-17-2023 Functional status Patient at Baseline [facility] Work Phone: 09-15-2023 Functional status Patient at Baseline [facility] Work Phone: Mental Status Date Assessment Result Facility 09-17-2023 Cognitive function Cognitive Sta tus Patient at Baseline [facility] Work Phone: 09-15-2023 Cognitive function Cognitive Sta tus Patient Not at Baseline [facility] Work Phone: Clinical Notes 07-01-2022 to 09-17-2023 Note Date & Type Note Facility 09-17-2023 Discharge summary Note Date/Time September 17, 2023 12:23pm [facility] [address] [place] [address] Discharge Summary Signed Patient: Amparo Castorena MR#: [id number] : 1950 Acct:[id number] Age/Sex: 72 / F Adm Date: 4 Loc: Room: [address] [place] [address]: Emerald Conn MD Copies to: MD Christopher Baldwin MD~ Providers Date of Discharge: 09/17/23 Discharging Provider: Emerald Conn Additional Discharging Provider: Emerald Conn Primary Care Provider: Christopher Mann Consults: 09/15/23 14:10 Consult to Nephrology Routine Comment: Consulting Provider: Essie Salas Has Provider Been Notified: Yes Date of Notification: 09/15/23 Time of Notification: 16:03 Reason for Consult: Dialysis Treatment Consult to Neurology Routine Comment: Consulting Provider: Rodger Tomas Reason For Exam: ams Has Provider Been Notified: Yes Date of Notification: 09/15/23 Time of Notification: 16:04 09/16/23 12:52 Consult to Occupational Therapy Routine Comment: Physician Instructions: Consult to OT for:: Evaluation and Treat Consult to Physical Therapy Routine Comment: Physician Instructions: Consult to PT for:: Evaluation and Treat Discharge Diagnosis (1) Acute metabolic encephalopathy: (2) AMS (altered mental status): (3) ESRD (end stage renal disease) on dialysis: (4) Anemia in chronic kidney disease (CKD): (5) Acute cystitis: Final Diagnosis Final Discharge Diagnosis: As above Summary Hospital Course Hospital course: Patient is a 72-year-old female who was brought to the ER from [facility] for concern for stroke on 09/15/2023. She was reported as not acting right and staring . She is normally alert and oriented, very talkative and active. She had a stroke previously with residual left-sided weakness. Patient also has history of end-stage renal disease on hemodialysis, anemia of chronic kidney disease, hypertension, DM, secondary hyperparathyroidism, and coronary disease status post remote PCI. On evaluation in emergency room, patient was foundto be minimally responsive with slurred speech. Patient was difficult to arouse,however was responding by saying yes to sternal rub. In the emergency room her NIH stroke scale was [address] head and neck negative for critical stenosis. Noted to have 70% stenosis of proximal left internal carotid artery 50% on the right. ABG showed pH of 7.35 with pCO2 41.9 bicarb 22.4. Urine analysis history of cystitis and patient was given IV vancomycin in the emergency room. Ertapenemwas started given her cephalexin allergy and follow-up cultures obtained in the emergency room The patient was admitted to inpatient floor. Neurology was contacted by the hospitalist team and recommended to do EEG to rule out seizures. Stat EEG was negative for seizure activity and MRI brain also did not show any acute abnormality. Subcutaneous heparin was given for DVT prophylaxis. The patient wasalert and had significant improved mentation during dialysis the following day. She was verbal and able to answer questions. Daughter reports the patient seems back to her baseline. The patient has been eating and drinking without difficulty. Denies fever, chills, or SOB. Continued improvement today, she is moreawake and responsive today with no patient complaints at this time. Hemodynamically, patient is stable. Condition Condition at Discharge: Stable Status at Discharge Overall status at discharge: patient is back to baseline Time Spent with Patient Time spent providing/coordinating discharge services (# min): 35 Discharge Plan Discharge Plan Patient Disposition: [facility] Care/Resident Activity: No Activity Restriction Diet: Renal Additional Instructions: CUSTODIAL TO MANAGE: Monitor VS per protocol Monitor daily weights Monitor FSBS Monitor Neuro. assessment--Encephalopathy, Change in mental status Monitor assessment and for increased signs of infection--ESRD, Cystitis Continue Hemodialysis as scheduled Maintain high risk fall precautions Care to be managed by [facility] providers Prescriptions: New levofloxacin 250 mg tablet 250 mg PO Q48HR 3 Days Qty: 2 0RF Continued atorvastatin 20 mg tablet 20 mg PO QHS fexofenadine [Debbie Allergy] 60 mg Tablet 60 mg PO DAILY carvedilol 12.5 mg tablet 12.5 mg PO BID calcium carbonate [Calcium Antacid] 200 mg calcium (500 mg) Tablet,Chewable 400 mg PO TIDWM PRN (Reason: Heartburn) gabapentin 300 mg Tablet Extended Release 24 Hr 300 mg PO QHS sertraline 25 mg Tablet 25 mg PO DAILY omeprazole 20 mg Tablet,Delayed Release (Dr/Ec) 20 mg PO DAILY acetaminophen 325 mg Tablet 325 mg PO Q6H PRN (Reason: Pain) hydrocortisone 1 % Gel 1 applic TOPICAL DIRECTED bisacodyl 10 mg Suppository 10 mg VA DAILY PRN (Reason: Constipation) ondansetron 4 mg Tablet,Disintegrating 4 mg PO Q8H PRN (Reason: Nausea And Vomiting) guaifenesin [Mucinex] 600 mg Tablet Extended Release 12hr 600 mg PO Q12H PRN (Reason: Congestion) magnesium oxide 400 mg magnesium Tablet 400 mg PO DAILY glucagon HCl [Glucagon (HCl) Emergency Kit] 1 mg Recon Soln 1 mg IM DIRECTED Rx Instructions: inject 1 syringe intramuscularly as needed for blood sugar less than 50 furosemide 40 mg Tablet 80 mg PO DAILY Rx Instructions: sun, tue,lee, sat folic acid 1 mg Tablet 1 mg PO DAILY Aranesp (in polysorbate) 60 mcg/mL Solution 60 mcg IV-PUSH WE@1000 Qty: 0 0RF Patient Comments: UNSURE IF TAKING. ammonium lactate 12 % cream 1 applic topical BID PRN (Reason: rash) polyvinyl alcohol [Artificial Tears (polyvin alc)] 1.4 % drops 1 drp Eye-Both QID lidocaine HCl [Aspercreme (lidocaine HCl)] 4 % cream 1 applic topical DIRECTED Rx Instructions: M,W,F PRIOR TO DIALYSIS Biofreeze (menthol) 4 % gel 1 applic topical BID calcium carbonate [Hood-Gest Antacid] 200 mg calcium (500 mg) tablet,chewable 200 mg PO TID PRN (Reason: indigestion) dextrose [Glucose Gel] 40 % gel 10 g PO Q15M PRN (Reason: hypoglycemia) Rx Instructions: until symptoms of low blood sugar are controlled Humulin 70/30 U-100 KwikPen 100 unit/mL (70-30) insulin pen 40 unit subcut QAM Humulin 70/30 U-100 KwikPen 100 unit/mL (70-30) insulin pen 45 unit subcut QHS insulin lispro 100 unit/mL insulin pen 1 sliding scale dose SUBCUT ACHS midodrine 5 mg tablet 5 mg PO DIRECTED Rx Instructions: M,W,F Refresh Optive 1-0.9 % drops,gel 1 drp Eye-Both BID SPS (with sorbitol) 15-20 gram/60 mL suspension 120 ml PO DAILY PRN (Reason: hyperkalemia) Discontinued loperamide 2 mg Capsule 2 mg PO DIRECTED hydrocodone-acetaminophen 5-325 mg Tablet 1 tab PO Q8H PRN (Reason: Pain) 3 Days Qty: 9 0RF Exam Physical Exam Vital Signs: Temp Pulse Resp BP Pulse Ox O2 Del Method O2 Flow Rate 97.4 F L 78 16 148/75 H 99 Room Air 2 09/17/23 08:00 09/17/23 08:00 09/17/23 08:00 09/17/23 08:00 09/17/23 08:00 09/17/23 08:00 09/16/23 00:31 Narrative: Const: Alert and oriented HEENT: normal to inspection, no palpable skull fracture, normocephalic and atraumatic Eyes: EOMI intact. No nystagmus. Neck: normal visual inspection and full ROM Resp: normal respiratory effort; no rales, no rhonchi and no wheezes Cardio: regular rate, regular rhythm, S1 normal and S2 normal GI: soft, not firm, no guarding and nontender Neuro: Left hemiaplasia from previous stroke. No seizure activity noted. Sensation and strength intact in UE/LE b/l Extrem: no calf tenderness and edema Diagnostic Studies Completed and Pending Studies Pending studies at discharge: 09/15/23 12:23 Blood Culture Stat 09/18/23 05:00 Renal Function Panel [CHEM] IN AM 09/19/23 05:00 Renal Function Panel [CHEM] IN AM 09/20/23 05:00 Renal Function Panel [CHEM] IN AM Preliminary micro results at discharge 09/15/23 12:23 Blood Culture - Preliminary Blood - Left Forearm No Growth 1 Day 09/15/23 12:31 Blood Culture - Preliminary Blood - Left Arm No Growth 1 Day Labs on day of discharge: 09/17/23 08:08: PHA Creatinine Clear 8.72, Sodium 124 L* D, Potassium 4.1, Chloride 91 L, Carbon Dioxide 22.3, Anion Gap 14.8, BUN 48 H, Creatinine 6.67 H D, Est GFR (CKD-EPI) 6.102, Glucose 294 H, Calcium 8.3 L, Phosphorus 5.2 H, Albumin 3.4 L 09/17/23 06:31: POC Glucose 327 09/16/23 20:47: POC Glucose 368 09/16/23 16:17: POC Glucose 335 09/16/23 11:51: POC Glucose Comment Cleaned meter 09/16/23 11:51: POC Glucose 336, POC Glucose Comment Documented By: Emerald Conn MD 09/17/23 1112 Signed By: <Electronically signed by Emerald Conn MD> 09/17/23 1410 [facility] Work Phone: 1(113) 684-888505-24-2024 Progress note Author Essie Salas [facility] September 17, 2023 11:54am Note Date/Time September 17, 2023 11:54 am [facility] [address] [place], [place] [id number] Nephrology Progress Note Signed Patient: Amparo Castorena MR#: [id number] : 1950 Acct:[id number] Age/Sex: 72 / F Adm Date: 4 Loc: 3T Room: [address] [place] [address] Type: ADM IN Attending Dr: Emerald Conn MD Copies to: ~ Date of Service: 09/17/2023 Subjective Subjective Narrative: This is a 72-year-old female well-known to me from outpatient dialysis unit was brought into the emergency room from [facility] due to the acute change in mental status. On evaluation in emergency room patient was still found to be minimally responsive with slurred speech. She had a CAT scan of the brain and done in emergency room which showed no acute finding. She had a CTA which showed no acute blockage. She was found to have abnormal UA and was given empiric antibiotic for possible UTI. Neurology was contacted by the hospitalistteam and recommended to do EEG to rule out seizures. 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 She currently goes to the [place] dialysis unit 3 times a week on MWF schedule and has AV fistula as a dialysis access. Patient is due for dialysis today nephrology is consulted for ESRD management. Her other comorbidities are CVA with left-sided residual weakness, DM, HTN, CAD s/p multiple PCI, dyslipidemia, anemia of renal disease and secondary hyperparathyroidism. INTERIM HISTORY Patient was seen examined bedside during hemodialysis. She denies any chest pain palpation cough nausea or diarrhea and shortness of breath Exam Physical Exam Vital Signs: Temp Pulse Resp BP Pulse Ox O2 Del Method O2 Flow Rate 97.9 F 72 18 154/78 H 95 Room Air 2 09/17/23 10:41 09/17/23 10:51 09/17/23 10:41 09/17/23 10:51 09/17/23 10:41 09/17/23 10:41 09/16/23 00:31 Narrative: General: Appears comfortable and not in distress Heart: S1-S2, no rub Lung: Bilateral air entry, no wheezing or crackles Abdomen: Soft, positive bowel sounds Extremities: trace edema, no cyanosis Head: Atraumatic, normocephalic Ear: No gross hearing Deficit or external ear redness Eyes: No pallor or redness Neck: No JVD or visible mass Skin: No rashes , warm to touch B[employer]EFITS SPECIALIST RECRUITER: Awake,Alert, following simple command Musculoskeletal: No swelling or limitation of movement of the large joints Psychiatric: Cooperative, normal mood and affect Objective Intake and Output I&O: Intake & Output 09/14/23 09/15/23 09/16/23 09/17/23 23:59 23:59 23:59 23:59 Intake Total 1600 / 1600 600 / 600 1100 / 1100 Output Total 4151 / 4151 225 / 225 Balance -2551 / -2551 375 / 375 1100 / 1100 Weight 101 kg 102.9 kg 101.8 kg Meds and Allergies Meds: Active Medications Atorvastatin Calcium (Atorvastatin 20 Mg Tablet) 20 mg PO QHS [facility] Stop: 09/15/24 21:59 Last Admin: 09/16/23 21:17 Dose: Not Given Darbepoetin Chris (Darbepoetin Chris In Polysorbat 40 Mcg/Ml Vial) 40 mcg IV- PUSHWE [facility]; Protocol Stop: 09/14/24 13:59 Last Admin: 09/15/23 14:45 Dose: 40 mcg Dextrose (Dextrose 50% In Water 25 Gm/50 Ml Syringe) 0 gm IV-PUSH PRN PRN PRN Reason: Hypoglycemia Stop: 09/14/24 15:38 Glucose (Dextrose 40% Gel 15 Gm Tube) 0 gm PO PRN PRN PRN Reason: Hypoglycemia Stop: 09/14/24 15:38 Heparin Sodium (Porcine) (Heparin 10,000 Unit/10 Ml Vial) 3,000 unit IV PRN PRN PRN Reason: Dialysis Stop: 09/14/24 13:43 Last Admin: 09/17/23 11:31 Dose: 3,000 unit Heparin Sodium (Porcine) (Heparin 10,000 Unit/10 Ml Vial) 1,500 unit IV PRN PRN PRN Reason: Dialysis Stop: 09/14/24 13:43 Last Admin: 09/17/23 11:31 Dose: 1,500 unit Heparin Sodium (Porcine) (Heparin 5,000 Unit/Ml Vial) 5,000 unit SUBCUT Q8HR [facility] Stop: 09/14/24 21:59 Last Admin: 09/17/23 06:09 Dose: Not Given Sodium Chloride (0.9% Sodium Chloride 1,000 Ml) 1,000 mls @ 0 mls/hr MISCELLANE.Q0M PRN PRN Reason: Dialysis Stop: 09/14/24 13:42 Last Infusion: 09/17/23 11:33 Dose: Infused Ertapenem 0.5 gm/ Sodium (Chloride) 100 mls @ 200 mls/hr IV Q24H [facility] Stop: 09/14/24 16:14 Last Admin: 09/16/23 19:48 Dose: 200 mls/hr Insulin Aspart (Insulin Aspart 300 Units/3 Ml Insuln.Pen) 0 units SUBCUT TID.WM.HS [facility]; Protocol Stop: 09/14/24 16:59 Last Admin: 09/17/23 09:15 Dose: 4 units Insulin Aspart Prota 70%/Aspart 30% (Insulin Aspart Protamin/Aspart 300 Units/3 Ml Insuln.Pen) 30 units SUBCUT QAM [facility] Stop: 09/16/24 08:59 Last Admin: 09/17/23 09:15 Dose: 30 units Insulin Aspart Prota 70%/Aspart 30% (Insulin Aspart Protamin/Aspart 300 Units/3 Ml Insuln.Pen) 35 units SUBCUT QHS [facility] Stop: 09/15/24 21:59 Last Admin: 09/16/23 20:59 Dose: 35 units Midodrine (Midodrine 5 Mg Tablet) 5 mg PO PRN PRN PRN Reason: Dialysis Stop: 09/14/24 13:45 Last Admin: 09/15/23 15:35 Dose: 5 mg Ondansetron HCl (Ondansetron Odt 4 Mg Tab.Rapdis) 4 mg PO MOWEFR PRN PRN Reason: Nausea And Vomiting Stop: 09/16/24 11:29 Pantoprazole Sodium (Pantoprazole 40 Mg Tablet.Dr) 40 mg PO DAILY [facility] Stop: 09/16/24 08:59 Last Admin: 09/17/23 09:15 Dose: 40 mg Paricalcitol (Paricalcitol 10 Mcg/2 Ml Vial) 5 mcg IV-PUSH MOWEFR PRN PRN Reason: Dialysis Stop: 09/16/24 11:27 Last Admin: 09/17/23 11:37 Dose: 5 mcg Sertraline HCl (Sertraline 25 Mg Tablet) 25 mg PO DAILY [facility] Stop: 09/16/24 08:59 Last Admin: 09/17/23 09:15 Dose: 25 mg Sodium Chloride (Sodium Chloride 0.9 % 10 Ml Syringe) 0 ml IV-PUSH PRN PRN PRN Reason: Flush Stop: 09/14/24 09:29 Last Admin: 09/16/23 19:48 Dose: 10 ml Sodium Chloride (Sodium Chloride 0.9 % 10 Ml Syringe) 0 ml IV-PUSH PRN PRN PRN Reason: Flush Stop: 09/14/24 13:42 Last Admin: 09/17/23 11:31 Dose: 10 ml Allergies cephalexin [From Keflex] Allergy (Unknown, Verified 09/15/23 09:36) Unknown Reaction, reddened pruritic rash diclofenac [From Arthrotec] Allergy (Unknown, Verified 09/15/23 09:36) Swelling misoprostol [From Arthrotec] Allergy (Unknown, Verified 09/15/23 09:36) Swelling Results - Nephrology Labs 09/16/23 09:46 09/17/23 08:08 Labs: 09/17/23 08:08 BUN 48 H Creatinine 6.67 H D Phosphorus 5.2 H Albumin 3.4 L Radiology Impressions Impressions - last 24 hours: Any impression(s) listed above is documentation that was entered by the reading physician into a diagnostic report(s) for Amparo Castorena. I have reviewed the report(s) and am incorporating any findings in the treatment plan of this patient where applicable. A&P - Nephrology Assessment/Plan (1) AMS (altered mental status): Assessment/Problem Details: She has a change in mental status likely due to the UTI or due to the seizure. She had a CAT scan and MRI of the brain which showed no acute infarct. Neurologyhas been following the patient. (2) ESRD (end stage renal disease) on dialysis: Assessment/Problem Details: She has a ESRD due to the diabetic nephropathy and hypertensive nephrosclerosis. Currently goes to the dialysis times a week on an MWF schedule. She has AV fistula as a dialysis access. (3) Anemia in chronic kidney disease (CKD): Assessment/Problem Details: She has anemia due to the ESRD currently receives Aranesp with hemodialysis. (4) Secondary hyperparathyroidism: Assessment/Problem Details: She has a secondary hyperparathyroidism currently receives IV Zemplar with dialysis. (5) Type 2 diabetes mellitus with diabetic chronic kidney disease: Assessment/Problem Details: She has insulin-dependent type 2 diabetes mellitus currently using insulin NPH. (6) Benign hypertension with end-stage renal disease: Assessment/Problem Details: Her blood pressure is controlled. She currently takes carvedilol. Plan * Hemodialysis today as ordered. Will do ultrafiltration as tolerated. * She has hyponatremia likely due to the hypervolemia. * Continue home dose of carvedilol. Will give her midodrine for intradialytic hypotension. * Will give Aranesp 40 mcg once weekly with dialysis * Will give Zemplar 5 mcg with dialysis as per outpatient schedule. * Continue IV antibiotics for possible UTI and adjust as needed based on culture sensitivity. Pharmacy to dose medication. * Continue workup for change in mental status as per the neurology * Continue DM management as per the primary hospitalist team. * Check CBC and renal function daily Documented By: Essie Salas MD 09/17/23 1149 Signed By: <Electronically signed by Essie Salas MD> 09/17/23 1154 [facility] Work Phone: 1(381) 165-883005-23-2024 Progress note Author Rodger Tomas [facility] September 16, 2023 3:31pm Note Date/Time September 16, 2023 1:54p m [facility] [address] [place] [address] Neurology Progress Note Signed Patient: Amparo Castorena MR#: [id number] : 1950 Acct:[id number] Age/Sex: 72 / F Adm Date: 4 Loc: Room: [address] [place] [address] Type: ADM IN Attending Dr: Emerald Conn MD Copies to: ~ Date of Service: 09/16/2023 Subjective Subjective Narrative: Patient's mental status was noted to be substantially improved yesterday as compared to today. Patient is continuing with ongoing treatment of infection and did get dialysis yesterday. No acute events overnight. No seizure-like activity reported overnight. Review of Systems Review of Systems Unobtainable due to mental status and Unobtainable due to mental condition Exam Physical Exam Vital Signs: Temp Pulse Resp BP Pulse Ox O2 Del Method O2 Flow Rate 97.8 F 75 16 151/73 H 100 Room Air 2 09/16/23 12:00 09/16/23 12:00 09/16/23 12:00 09/16/23 12:00 09/16/23 12:00 09/16/23 12:00 09/16/23 00:31 Narrative: Patient was awake and alert Patient was nonverbal Patient did shake her head yes and no which seem to be quite reasonable and accurate but had difficulty following multistep commands Patient was able to move her right upper extremity and right lower extremity in a 1-2/5 manner Patient was unable to move the left side Reflexes appear brisk Coordination and sensation and gait were not tested Objective Vital Signs Vital Signs: Vital Signs - 24 hr 09/15/23 14:03 09/15/23 14:13 09/15/23 14:30 Temperature 97.4 F L Pulse Rate Pulse Rate [Monitor] 65 65 67 Respiratory Rate 18 Blood Pressure Blood Pressure [Left Arm] 168/93 H 168/93 H 161/85 H 02 Sat by Pulse Oximetry 100 Oxygen Delivery Method Nasal Cannula Oxygen Flow Rate 2 09/15/23 15:00 09/15/23 15:34 09/15/23 16:00 Temperature Pulse Rate Pulse Rate [Monitor] 71 52 L 72 Respiratory Rate Blood Pressure Blood Pressure [Left Arm] 134/77 87/42 L 130/68 02 Sat by Pulse Oximetry Oxygen Delivery Method Oxygen Flow Rate 09/15/23 16:31 09/15/23 16:45 09/15/23 17:00 Temperature Pulse Rate Pulse Rate [Monitor] 60 61 Respiratory Rate Blood Pressure Blood Pressure [Left Arm] 96/54 L 84/50 L 02 Sat by Pulse Oximetry 98 Oxygen Delivery Method Nasal Cannula Oxygen Flow Rate 2 09/15/23 17:30 09/15/23 18:00 09/15/23 18:20 Temperature Pulse Rate Pulse Rate [Monitor] 60 71 72 Respiratory Rate Blood Pressure Blood Pressure [Left Arm] 82/46 L 111/68 88/46 L 02 Sat by Pulse Oximetry Oxygen Delivery Method Oxygen Flow Rate 09/15/23 18:45 09/15/23 20:00 09/15/23 20:00 Temperature 97.9 F 97.9 F Pulse Rate 77 Pulse Rate [Monitor] 76 Respiratory Rate 18 18 Blood Pressure 171/84 H Blood Pressure [Left Arm] 94/50 L 02 Sat by Pulse Oximetry 100 100 Oxygen Delivery Method Nasal Cannula Nasal Cannula Nasal Cannula Oxygen Flow Rate 2 2 2 09/15/23 20:10 09/15/23 23:22 09/16/23 00:31 Temperature 97.9 F Pulse Rate 78 Pulse Rate [Monitor] 77 Respiratory Rate 18 17 Blood Pressure 93/43 L Blood Pressure [Left Arm] 171/84 H 02 Sat by Pulse Oximetry 100 99 Oxygen Delivery Method Nasal Cannula Nasal Cannula Nasal Cannula Oxygen Flow Rate 2 2 2 09/16/23 01:30 09/16/23 04:00 09/16/23 04:00 Temperature 97.8 F Pulse Rate 76 Pulse Rate [Monitor] Respiratory Rate 16 Blood Pressure 153/82 H 115/82 Blood Pressure [Left Arm] 02 Sat by Pulse Oximetry 96 Oxygen Delivery Method Room Air Room Air Oxygen Flow Rate 09/16/23 08:00 09/16/23 12:00 Temperature 97.8 F 97.8 F Pulse Rate 79 75 Pulse Rate [Monitor] Respiratory Rate 16 16 Blood Pressure 169/94 H 151/73 H Blood Pressure [Left Arm] 02 Sat by Pulse Oximetry 99 100 Oxygen Delivery Method Room Air Room Air Oxygen Flow Rate Labs 09/16/23 09:46 09/16/23 09:46 Assessment/Plan (1) Acute metabolic encephalopathy: (2) AMS (altered mental status): Qualifiers: Altered mental status type: delirium Qualified Code(s): R41.0 - Disorientation, unspecified (3) ESRD (end stage renal disease) on dialysis: (4) Anemia in chronic kidney disease (CKD): Qualifiers: Chronic kidney disease stage: on chronic dialysis Qualified Code(s): N18.6 - End stage renal disease; D63.1 - Anemia in chronic kidney disease; Z99.2 - Dependence on renal dialysis (5) Acute cystitis: Qualifiers: Hematuria presence: without hematuria Qualified Code(s): N30.00 - Acutecystitis without hematuria Plan It is my impression that the patient has altered mental status. The patient hasa history of chronic hemiparesis from previous stroke and also history of craniotomy. Patient was found to have an urinary tract infection in the emergency department and is being treated with IV antibiotics. Patient is also due for dialysis and is supposed to be getting dialysis today. Patient was somewhat hypotensive during dialysis and I wonder if the fluctuations in blood pressure are the culprit for her mental status changes along with infection in the urine. Workup: CT of the brain without contrast: Evidence of an old right cerebral infarct and old left shunt placement and craniotomy CT angiogram of the head and neck: 50% stenosis of the right and 70% stenosis ofthe left internal carotid arteries. No evidence of dissection, aneurysm or occlusion MRI of the brain without contrast: No acute intracranial pathology. There is a remote infarct on the right similar to the prior exam. Gliosis and encephalomalacia is noted in the anterior left frontal lobe which may be relatedto a previous pressure monitor or ventricular shunt tract. UA: Positive for 4+ leukocyte Estrace and innumerable white blood cells CBC again identifies anemia Basic metabolic panel identifies mild hyponatremia with a sodium of 134 as well as a substantially elevated creatinine at 7.69 and a substantially elevated blood urea nitrogen at 54 Chest x-ray is suggestive of heart failure without evidence of consolidation ammonia: Within normal limits TSH: normal Vitamin B12: 298- normal Plan: I suggest very careful monitoring of the patient as she apparently has a historyof recurrent infections and she was quite hypotensive requiring midodrine duringdialysis today. I suggest continuation of treatment of infection per the primary service for theabnormal urinalysis Supportive care. Neurology will sign off. Please call with any questions or concerns. Thank you for consultation. Documented By: Rodger Tomas DO [id number] Signed By: <Electronically signed by Rodger Tomas DO> 09/16/23 1531 [facility] Work Phone: 1(678) 312-572505-23-2024 Progress note Author Emerald Conn [facility] September 16, 2023 12:49pm Note Date/Time September 16, 2023 10:24 am [facility] [address] [place] [address] Hospitalist Progress Note Signed Patient: Amparo Castorena MR#: [id number] : 1950 Acct:[id number] Age/Sex: 72 / F Adm Date: 4 Loc: 3T Room: [address] [place] [address] Type: ADM IN Attending Dr: Emerald Conn MD Copies to: ~ Date of Service: 09/16/2023 Subjective Subjective Narrative: Patient is a 72-year-old female who is brought from [facility] yesterday for not acting right and staring . She was seen at bedside with her daughter by her side today, awake and alert. She was talking and able to answer questions. Daughter reports the patient seems back to her baseline. Patient reports of right sided headache and lightheadedness. She had dialysis yesterday without anyissues and was alert at that time. Urine output is clear; UTI present. Her mentation is significant improved as compared to yesterday. MRI showed no acute intracranial pathology. CT of the brain and CT angiogram of the head and neck were completed and did not show any evidence of acute findings. There was noted stenosis and noted old stroke and evidence of probable previous shunt placement on the left but no acute findings. Patient does also have a history of end-stage renal disease on hemodialysis, anemia of chronic disease, hypertension, coronary disease and history of stenting thereof. Exam Physical Exam Vital Signs: Temp Pulse Resp BP Pulse Ox O2 Del Method O2 Flow Rate 97.8 F 76 16 115/82 96 Room Air 2 09/16/23 04:00 09/16/23 04:00 09/16/23 04:00 09/16/23 04:00 09/16/23 04:00 09/16/23 04:00 09/16/23 00:31 Narrative: Const: Alert and oriented HEENT Head: normal to inspection, no palpable skull fracture, normocephalic and atraumatic Eyes EOMI intact but with limited superior and inferior movement. No nystagmus. Neck Neck: normal visual inspection and full ROM Resp Effort & Inspection: normal respiratory effort Auscultation: no rales, no rhonchi and no wheezes Cardio Rate: regular rate Rhythm: regular rhythm Heart Sounds: S1 normal and S2 normal GI Palpation: soft, not firm, no guarding and nontender Neuro Left hemiaplasia from previous stroke. No seizure activity noted. Sensation and strength intact in UE/LE b/l Extrem General: no calf tenderness and edema Objective Lab Results 09/16/23 09:46 09/16/23 09:46 Meds Allergies and Active Meds Allergies cephalexin [From Keflex] Allergy (Unknown, Verified 09/15/23 09:36) Unknown Reaction, reddened pruritic rash diclofenac [From Arthrotec] Allergy (Unknown, Verified 09/15/23 09:36) Swelling misoprostol [From Arthrotec] Allergy (Unknown, Verified 09/15/23 09:36) Swelling Active Meds: Active Medications Generic Name Dose Route Start Last Admin Trade Name Freq PRN Reason Stop Dose Admin Darbepoetin Chris 40 mcg 09/15/23 14:00 09/15/23 14:45 Darbepoetin Chris In Polysorbat 40 Mcg/Ml Vial IV-PUSH 09/14/24 13:59 40 mcg WE MARIA VICTORIA Administration Protocol Dextrose 0 gm 09/15/23 15:39 Dextrose 50% In Water 25 Gm/50 Ml Syringe IV-PUSH 09/14/24 15:38 PRN PRN Hypoglycemia Glucose 0 gm 09/15/23 15:39 Dextrose 40% Gel 15 Gm Tube PO 09/14/24 15:38 PRN PRN Hypoglycemia Heparin Sodium (Porcine) 3,000 unit 09/15/23 13:44 09/15/23 14:44 Heparin 10,000 Unit/10 Ml Vial IV 09/14/24 13:43 3,000 unit PRN PRN Administration Dialysis Heparin Sodium (Porcine) 1,500 unit 09/15/23 13:44 09/15/23 14:45 Heparin 10,000 Unit/10 Ml Vial IV 09/14/24 13:43 1,500 unit PRN PRN Administration Dialysis Heparin Sodium (Porcine) 5,000 unit 09/15/23 22:00 09/16/23 05:13 Heparin 5,000 Unit/Ml Vial SUBCUT 09/14/24 21:59 5,000 unit Q8HR MARIA VICTORIA Administration Sodium Chloride 1,000 mls @ 0 mls/hr 09/15/23 13:43 09/15/23 14:55 0.9% Sodium Chloride 1,000 Ml MISCELLANE 09/14/24 13:42 Infused .Q0M PRN Infusion Dialysis As Directed Ertapenem 0.5 gm/ Sodium 100 mls @ 200 mls/hr 09/15/23 16:15 09/15/23 20:28 Chloride IV 09/14/24 16:14 200 mls/hr Q24H MARIA VICTORIA Administration Insulin Aspart 0 units 09/15/23 17:00 09/16/23 07:51 Insulin Aspart 300 Units/3 Ml Insuln.Pen SUBCUT 09/14/24 16:59 2 units TID.WM.HS MARIA VICTORIA Administration Protocol Midodrine 5 mg 09/15/23 13:46 09/15/23 15:35 Midodrine 5 Mg Tablet PO 09/14/24 13:45 5 mg PRN PRN Administration Dialysis Sodium Chloride 0 ml 09/15/23 09:30 09/15/23 20:29 Sodium Chloride 0.9 % 10 Ml Syringe IV-PUSH 09/14/24 09:29 10 ml PRN PRN Administration Flush Sodium Chloride 0 ml 09/15/23 13:43 09/15/23 14:46 Sodium Chloride 0.9 % 10 Ml Syringe IV-PUSH 09/14/24 13:42 10 ml PRN PRN Administration Flush A&P - Hospitalist Assessment/Plan (1) Acute metabolic encephalopathy: (2) ESRD (end stage renal disease) on dialysis: (3) Anemia in chronic kidney disease (CKD): (4) Acute cystitis: (5) Type 2 diabetes mellitus with diabetic chronic kidney disease: (6) CVA (cerebral vascular accident): Plan Her mentation is significant progress she is more awake and responsive today. Suspecting symptoms likely acute metabolic encephalopathy due to acute cystitis. Patient had neurology and nephrology consultation. Stat EEG was negative for seizure activity. MRI brain also did not show any acute abnormality. Given improved mentation will resume her [facility] insulin regimen. Pending blood and urine cultures. Continue ertapenem until final culture results are back. She did go undergo hemodialysis yesterday and developed hypotension which has resolved after receiving midodrine. Will consult PT/OT. Subcutaneous heparin for DVT prophylaxis. Documented By: Emerald Conn MD 09/16/23 0915 Signed By: <Electronically signed by Emerald Conn MD> 09/16/23 1249 [facility] Work Phone: 1(817) 648-777405-23-2024 Progress note Author Essie Salas [facility] September 16, 2023 10:33am Note Date/Time September 16, 2023 10:28 am [facility] [address] [place] [address] Nephrology Progress Note Signed Patient: Amparo Castorena MR#: [id number] : 1950 Acct:[id number] Age/Sex: 72 / F Adm Date: 4 Loc: 3T Room: [address] [place] [address] Type: ADM IN Attending Dr: Emerald Conn MD Copies to: ~ Date of Service: 09/16/2023 Subjective Subjective Narrative: This is a 72-year-old female well-known to me from outpatient dialysis unit was brought into the emergency room from [facility] due to the acute change in mental status. On evaluation in emergency room patient was still found to be minimally responsive with slurred speech. She had a CAT scan of the brain and done in emergency room which showed no acute finding. She had a CTA which showed no acute blockage. She was found to have abnormal UA and was given empiric antibiotic for possible UTI. Neurology was contacted by the hospitalistteam and recommended to do EEG to rule out seizures. 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 She currently goes to the [place] dialysis unit 3 times a week on MWF schedule and has AV fistula as a dialysis access. Patient is due for dialysis today nephrology is consulted for ESRD management. Her other comorbidities are CVA with left-sided residual weakness, DM, HTN, CAD s/p multiple PCI, dyslipidemia, anemia of renal disease and secondary hyperparathyroidism. INTERIM HISTORY Patient was seen examined bedside. She is now back to her baseline denies any chest pain palpation cough nausea Moiduddin shortness of breath. Her daughter was also present at the bedside. Exam Physical Exam Vital Signs: Temp Pulse Resp BP Pulse Ox O2 Del Method O2 Flow Rate 97.8 F 76 16 115/82 96 Room Air 2 09/16/23 04:00 09/16/23 04:00 09/16/23 04:00 09/16/23 04:00 09/16/23 04:00 09/16/23 04:00 09/16/23 00:31 Narrative: General: Appears comfortable and not in distress Heart: S1-S2, no rub Lung: Bilateral air entry, no wheezing or crackles Abdomen: Soft, positive bowel sounds Extremities: No edema, no cyanosis Head: Atraumatic, normocephalic Ear: No gross hearing Deficit or external ear redness Eyes: No pallor or redness Neck: No JVD or visible mass Skin: No rashes , warm to touch BENEFITS SPECIALIST RECRUITER: Awake,Alert, following simple command Musculoskeletal: No swelling or limitation of movement of the large joints Psychiatric: Cooperative, normal mood and affect Objective Intake and Output I&O: Intake & Output 09/13/23 09/14/23 09/15/23 09/16/23 23:59 23:59 23:59 23:59 Intake Total 1500 / 1500 Output Total 4151 / 4151 125 / 125 Balance -2651 / -2651 -125 / -125 Weight 101 kg 102.9 kg Meds and Allergies Meds: Active Medications Darbepoetin Chris (Darbepoetin Chris In Polysorbat 40 Mcg/Ml Vial) 40 mcg IV- PUSHWE MARIA VICTORIA; Protocol Stop: 09/14/24 13:59 Last Admin: 09/15/23 14:45 Dose: 40 mcg Dextrose (Dextrose 50% In Water 25 Gm/50 Ml Syringe) 0 gm IV-PUSH PRN PRN PRN Reason: Hypoglycemia Stop: 09/14/24 15:38 Glucose (Dextrose 40% Gel 15 Gm Tube) 0 gm PO PRN PRN PRN Reason: Hypoglycemia Stop: 09/14/24 15:38 Heparin Sodium (Porcine) (Heparin 10,000 Unit/10 Ml Vial) 3,000 unit IV PRN PRN PRN Reason: Dialysis Stop: 09/14/24 13:43 Last Admin: 09/15/23 14:44 Dose: 3,000 unit Heparin Sodium (Porcine) (Heparin 10,000 Unit/10 Ml Vial) 1,500 unit IV PRN PRN PRN Reason: Dialysis Stop: 09/14/24 13:43 Last Admin: 09/15/23 14:45 Dose: 1,500 unit Heparin Sodium (Porcine) (Heparin 5,000 Unit/Ml Vial) 5,000 unit SUBCUT Q8HR MARIA VICTORIA Stop: 09/14/24 21:59 Last Admin: 09/16/23 05:13 Dose: 5,000 unit Sodium Chloride (0.9% Sodium Chloride 1,000 Ml) 1,000 mls @ 0 mls/hr MISCELLANE.Q0M PRN PRN Reason: Dialysis Stop: 09/14/24 13:42 Last Infusion: 09/15/23 14:55 Dose: Infused Ertapenem 0.5 gm/ Sodium (Chloride) 100 mls @ 200 mls/hr IV Q24H MARIA VICTORIA Stop: 09/14/24 16:14 Last Admin: 09/15/23 20:28 Dose: 200 mls/hr Insulin Aspart (Insulin Aspart 300 Units/3 Ml Insuln.Pen) 0 units SUBCUT TID.WM.HS [facility]; Protocol Stop: 09/14/24 16:59 Last Admin: 09/16/23 07:51 Dose: 2 units Midodrine (Midodrine 5 Mg Tablet) 5 mg PO PRN PRN PRN Reason: Dialysis Stop: 09/14/24 13:45 Last Admin: 09/15/23 15:35 Dose: 5 mg Sodium Chloride (Sodium Chloride 0.9 % 10 Ml Syringe) 0 ml IV-PUSH PRN PRN PRN Reason: Flush Stop: 09/14/24 09:29 Last Admin: 09/15/23 20:29 Dose: 10 ml Sodium Chloride (Sodium Chloride 0.9 % 10 Ml Syringe) 0 ml IV-PUSH PRN PRN PRN Reason: Flush Stop: 09/14/24 13:42 Last Admin: 09/15/23 14:46 Dose: 10 ml Allergies cephalexin [From Keflex] Allergy (Unknown, Verified 09/15/23 09:36) Unknown Reaction, reddened pruritic rash diclofenac [From Arthrotec] Allergy (Unknown, Verified 09/15/23 09:36) Swelling misoprostol [From Arthrotec] Allergy (Unknown, Verified 09/15/23 09:36) Swelling Results - Nephrology Labs 09/16/23 09:46 09/16/23 09:46 Labs: 09/15/23 09/16/23 10:10 06:52 BUN 33 H Creatinine 5.60 H D Urine RBC 5-9 H Urine WBC Innumerable H Urine Bacteria 4+ H Radiology Impressions Impressions - last 24 hours: Impressions Chest X-Ray 09/15/23 09:34 IMPRESSION: Perihilar vascular prominence is noted suggesting volume overload or congestive heart failure. Impression dictated by: Mario Eaton M.D.09/15/2023 10:52 AM Dictation Location: [facility] Head CTA 09/15/23 09:35 IMPRESSION: Calcified plaque is noted in the carotid bifurcations. There is motion artifact at the right carotid bifurcation partially obscuring assessment of stenosis. This appears to measure approximately 50% on the right. There is approximately 70% stenosis of the proximal left internal carotid artery. There is no dissection, aneurysm dilatation, or occlusion. Impression dictated by: Mario Eaotn M.D.09/15/2023 10:25 AM Dictation Location: [place] [address] Brain MRI 09/15/23 14:55 IMPRESSION: No acute intracranial pathology. There is a remote infarct on the right similar to the prior exam. Gliosis and encephalomalacia is noted in the anterior left frontal lobe which may be related to a previous pressure monitor or ventricular shunt tract. Impression dictated by: Mario Eaton M.D.09/16/2023 9:02 AM Dictation Location: [place] [address] Any impression(s) listed above is documentation that was entered by the reading physician into a diagnostic report(s) for Amparo Castorena. I have reviewed the report(s) and am incorporating any findings in the treatment plan of this patient where applicable. A&P - Nephrology Assessment/Plan (1) AMS (altered mental status): Assessment/Problem Details: She has a change in mental status likely due to the UTI or due to the seizure. She had a CAT scan and MRI of the brain which showed no acute infarct. Neurologyhas been following the patient. (2) ESRD (end stage renal disease) on dialysis: Assessment/Problem Details: She has a ESRD due to the diabetic nephropathy and hypertensive nephrosclerosis. Currently goes to the dialysis times a week on an MWF schedule. She has AV fistula as a dialysis access. (3) Anemia in chronic kidney disease (CKD): Assessment/Problem Details: She has anemia due to the ESRD currently receives Aranesp with hemodialysis. (4) Secondary hyperparathyroidism: Assessment/Problem Details: She has a secondary hyperparathyroidism currently receives IV Zemplar with dialysis. (5) Type 2 diabetes mellitus with diabetic chronic kidney disease: Assessment/Problem Details: She has insulin-dependent type 2 diabetes mellitus currently using insulin NPH. (6) Benign hypertension with end-stage renal disease: Assessment/Problem Details: Her blood pressure is controlled. She currently takes carvedilol. Plan * No need for dialysis today. Next dialysis will be tomorrow as per schedule. * Continue home dose of carvedilol. Will give her midodrine for intradialytic hypotension. * Will give Aranesp 40 mcg once weekly with dialysis * Will give Zemplar 5 mcg with dialysis as per outpatient schedule. * Continue IV antibiotics for possible UTI and adjust as needed based on culture sensitivity. Pharmacy to dose medication. * Continue workup for change in mental status as per the neurology * Continue DM management as per the primary hospitalist team. * Check CBC and renal function daily Documented By: Essie Salas MD 09/16/23 1026 Signed By: <Electronically signed by Essie Salas MD> 09/16/23 1033 [facility] Work Phone: 1(249) 733-104305-22-2024 Consult note Author Rodger Tomas [facility] September 15, 2023 5:23pm Note Date/Time September 15, 2023 4:06p [facility] [address] [place] [address] Neurology Consult Note Signed Patient: Amparo Castorena MR#: [id number] : 1950 Acct:[id number] Age/Sex: 72 / F Adm Date: 4 Loc: Room: [address] [place] [address] Type: ADM IN Attending Dr: Emerald Conn MD Copies to: DO Emerald Ji MD Rugen M Alda, MD~ HPI Consult Date: 09/15/23 Salesperson [employer] Furnish[employer]: Rodger Tomas DO Reason for consult: Altered mental status Consult Narrative HPI: I was asked to see this 72-year-old patient in new patient neurology consultation at the request of the hospitalist service for altered mental status. The patient was noted to be not acting right and staring off per [facility] staff. She was brought into the emergency department and there wasinitially concern that this could have been strokelike in nature. CT of the brain and CT angiogram of the head and neck were completed and did not show any evidence of acute findings. There was noted stenosis and noted old stroke and evidence of probable previous shunt placement on the left but no acute findings. Due to the concern for the persistent altered mental status and the difficulty arousing the patient and the previous history of craniotomy there was concern that seizure may have been playing a role in a subclinical way. Patient does also have a history of end-stage renal disease on hemodialysis, anemia of chronic disease, hypertension, coronary disease and history of stenting thereof. I saw the patient while she was in dialysis today. She was alert with her eyes open and was shaking her head yes and no for me today. Review of Systems Review of Systems Unobtainable due to mental status and Unobtainable due to mental condition [facility] Medical History (Updated 09/15/23 @ 17:22 by Rodger Tomas DO) CKD (chronic kidney disease) CVA (cerebral vascular accident) several History of cataract PVD (peripheral vascular disease) GERD (gastroesophageal reflux disease) Diabetes mellitus, type 2 Hyperlipidemia Hypertension Myocardial infarct x2 Surgical History History of arthroscopic knee surgery bilateral x2 History of carpal tunnel release rt History of hysterectomy Family History Mother Hypertension Diabetes Father Diabetes Brother CAD (coronary artery disease) Diabetes Brother Diabetes Legacy FamHx Relation: Brother(s) Hypertension Legacy FamHx Relation: Brother(s) Father Cancer Legacy FamHx Problem: Diagnosed with Cancer Heart disease Diabetes Mother Hypertension History of stroke Legacy FamHx Problem: Diagnosed with Stroke Diabetes Social History Smoking Status: Former smoker Tobacco Type: cigarettes Substance Use Type: None Meds Medications and Allergies Allergies cephalexin [From Keflex] Allergy (Unknown, Verified 09/15/23 09:36) Unknown Reaction, reddened pruritic rash diclofenac [From Arthrotec] Allergy (Unknown, Verified 09/15/23 09:36) Swelling misoprostol [From Arthrotec] Allergy (Unknown, Verified 09/15/23 09:36) Swelling Home Medications atorvastatin 20 mg tablet 20 mg PO QHS 03/28/21 [History Confirmed 09/15/23] calcium carbonate (Calcium Antacid) 400 mg PO TIDWM PRN Heartburn 03/28/21 [History Confirmed 09/15/23] carvedilol 12.5 mg tablet 12.5 mg PO BID 03/28/21 [History Confirmed 09/15/23] fexofenadine 60 mg tablet (Debbie Allergy) 60 mg PO DAILY 03/28/21 [History Confirmed 09/15/23] gabapentin 300 mg tablet,extended release 24 hr 300 mg PO QHS 03/28/21 [History Confirmed 09/15/23] omeprazole 20 mg tablet,delayed release 20 mg PO DAILY 06/30/22 [History Confirmed 09/15/23] sertraline 25 mg tablet 25 mg PO DAILY 06/30/22 [History Confirmed 09/15/23] acetaminophen 325 mg tablet 325 mg PO Q6H PRN Pain 07/01/22 [History Confirmed 09/15/23] bisacodyl 10 mg rectal suppository 10 mg VA DAILY PRN Constipation 07/01/22 [History Confirmed 09/15/23] glucagon HCl 1 mg solution for injection (Glucagon (HCl) Emergency Kit) 1 mg IM DIRECTED 07/01/22 [History Confirmed 09/15/23] guaifenesin 600 mg tablet, extended release 12 hr (Mucinex) 600 mg PO Q12H PRN Congestion 07/01/22 [History Confirmed 09/15/23] hydrocortisone 1 % topical gel 1 applic topical DIRECTED 07/01/22 [History Confirmed 09/15/23] loperamide 2 mg capsule 2 mg PO DIRECTED 07/01/22 [History Confirmed 09/15/23] magnesium oxide 400 mg PO DAILY 07/01/22 [History Confirmed 09/15/23] ondansetron 4 mg disintegrating tablet 4 mg PO Q8H PRN Nausea And Vomiting 07/01/22 [History Confirmed 09/15/23] folic acid 1 mg tablet 1 mg PO DAILY 07/31/22 [History Confirmed 09/15/23] furosemide 40 mg tablet 80 mg PO DAILY 07/31/22 [History Confirmed 09/15/23] darbepoetin chris in polysorbat 60 mcg/mL in polysorbate injection (Aranesp) 60 mcg IV-PUSH WE@1000 #0 mL 08/05/22 [Rx Confirmed 08/18/23] hydrocodone 5 mg-acetaminophen 325 mg tablet 1 tab PO Q8H PRN Pain 3 days #9 tabs 08/05/22 [Rx Confirmed 09/15/23] ammonium lactate 12 % topical cream 1 applic topical BID PRN rash 09/15/23 [History Confirmed 09/15/23] calcium carbonate (Hood-Gest Antacid) 200 mg PO TID PRN indigestion 09/15/23 [History Confirmed 09/15/23] carboxymethylcellulose 1 %-glycerin 0.9 % eye gel drops (Refresh Optive) 1 drp Eye-Both BID 09/15/23 [History Confirmed 09/15/23] dextrose 40 % oral gel (Glucose Gel) 10 g PO Q15M PRN hypoglycemia 09/15/23 [History Confirmed 09/15/23] insulin NPH-regular 70-30 U-100 insulin 100 unit/mL subcutaneous pen (Humulin 70/30 U-100 KwikPen) 40 unit subcut QAM 09/15/23 [History Confirmed 09/15/23] insulin NPH-regular 70-30 U-100 insulin 100 unit/mL subcutaneous pen (Humulin 70/30 U-100 KwikPen) 45 unit subcut QHS 09/15/23 [History Confirmed 09/15/23] insulin lispro 100 unit/mL subcutaneous pen 1 sliding scale dose subcut ACHS 09/15/23 [History Confirmed 09/15/23] lidocaine HCl 4 % topical cream (Aspercreme (lidocaine HCl)) 1 applic topical ASDIRECTED 09/15/23 [History Confirmed 09/15/23] menthol 4 % topical gel (Biofreeze (menthol)) 1 applic topical BID 09/15/23 [History Confirmed 09/15/23] midodrine 5 mg tablet 5 mg PO DIRECTED 09/15/23 [History Confirmed 09/15/23] polyvinyl alcohol 1.4 % eye drops (Artificial Tears (polyvinyl alcohol)) 1 drp Eye-Both QID 09/15/23 [History Confirmed 09/15/23] sodium polystyrene sulfonate 15 gram-sorbitol 20 gram/60 mL oral susp (SPS (withsorbitol)) 120 ml PO DAILY PRN hyperkalemia 09/15/23 [History Confirmed 09/15/23] Exam Physical Exam Vital Signs: Temp Pulse Resp BP Pulse Ox O2 Del Method O2 Flow Rate 97.4 F L 52 L 18 87/42 L 100 Nasal Cannula 2 09/15/23 14:03 09/15/23 15:34 09/15/23 14:03 09/15/23 15:34 09/15/23 14:03 09/15/23 14:03 09/15/23 14:03 Narrative: Patient was awake and alert Patient was nonverbal Patient did shake her head yes and no which seem to be quite reasonable and accurate but had difficulty following multistep commands Patient was able to move her right upper extremity and right lower extremity in a 1-2/5 manner Patient was unable to move the left side Reflexes appear brisk Coordination and sensation and gait were not tested Results - Neuro Laboratory Findings 09/15/23 09:30 09/15/23 09:30 Lab Results: Ammonia 26 umol/L (11-35) 09/15/23 10:21 Diagnostic Findings Imaging/Impressions: ITS Impressions Chest X-Ray 09/15/23 09:34 IMPRESSION: Perihilar vascular prominence is noted suggesting volume overload or congestive heart failure. Impression dictated by: Mario Eaton M.D.09/15/2023 10:52 AM Dictation Location: [facility] [address]-- Head CT 09/15/23 09:34 IMPRESSION: No acute intracranial pathology. Findings suggest a remote right-sided infarct and previous left frontal approachventricular shunt or intracranial pressure monitor placement. The shunt/monitor is no longer present. Findings were discussed with Halle below more at 9:48 AM on 09/15/2023 Impression dictated by: Mario Eaton M.D.09/15/2023 9:52 AM Dictation Location: [facility]-- Head CTA 09/15/23 09:35 IMPRESSION: Calcified plaque is noted in the carotid bifurcations. There is motion artifact at the right carotid bifurcation partially obscuring assessment of stenosis. This appears to measure approximately 50% on the right. There is approximately 70% stenosis of the proximal left internal carotid artery. There is no dissection, aneurysm dilatation, or occlusion. Impression dictated by: Mario Eaton M.D.09/15/2023 10:25 AM Dictation Location: [facility]-- Assessment/Plan (1) Acute metabolic encephalopathy: (2) AMS (altered mental status): Qualifiers: Altered mental status type: delirium Qualified Code(s): R41.0 - Disorientation, unspecified (3) ESRD (end stage renal disease) on dialysis: (4) Anemia in chronic kidney disease (CKD): Qualifiers: Chronic kidney disease stage: on chronic dialysis Qualified Code(s): N18.6 - End stage renal disease; D63.1 - Anemia in chronic kidney disease; Z99.2 - Dependence on renal dialysis (5) Acute cystitis: Qualifiers: Hematuria presence: without hematuria Qualified Code(s): N30.00 - Acutecystitis without hematuria Plan It is my impression that the patient has altered mental status. The patient hasa history of chronic hemiparesis from previous stroke and also history of craniotomy. Patient was found to have an urinary tract infection in the emergency department and is being treated with IV antibiotics. Patient is also due for dialysis and is supposed to be getting dialysis today. Patient was somewhat hypotensive during dialysis and I wonder if the fluctuations in blood pressure are the culprit for her mental status changes along with infection in the urine. Workup: CT of the brain without contrast: Evidence of an old right cerebral infarct and old left shunt placement and craniotomy CT angiogram of the head and neck: 50% stenosis of the right and 70% stenosis ofthe left internal carotid arteries. No evidence of dissection, aneurysm or occlusion MRI of the brain without contrast: Pending UA: Positive for 4+ leukocyte Estrace and innumerable white blood cells CBC again identifies anemia Basic metabolic panel identifies mild hyponatremia with a sodium of 134 as well as a substantially elevated creatinine at 7.69 and a substantially elevated blood urea nitrogen at 54 Chest x-ray is suggestive of heart failure without evidence of consolidation ammonia: Within normal limits TSH: Pending Vitamin B12: Pending Plan: I suggest very careful monitoring of the patient as she apparently has a historyof recurrent infections and she was quite hypotensive requiring midodrine duringdialysis today. I suggest continuation of treatment of infection per the primary service for theabnormal urinalysis We will obtain further workup with MRI as above to ensure there is no other intracranial process that could be causing for the patient's symptoms Supportive care and we will follow Documented By: Rodger Tomas DO [id number] Signed By: <Electronically signed by Rodger Tomas DO> 09/15/23 1723 [facility] Work Phone: 1(669) 299-565005-22-2024 History and physical note Author Emerald Conn [facility] September 15, 2023 3:01pm Note Date/Time September 15, 2023 2:39p rodney [facility] [address] [place] [address] Hospitalist H&P Signed Patient: Amparo Castorena MR#: [id number] : 1950 Acct:[id number] Age/Sex: 72 / F Adm Date: 4 Loc: ER Room: Type: [facility] ER Attending Dr: Copies to: DELORIS Antonio MD Rugen M Alda, MD~ HPI DATE OF EXAMINATION: 09/15/23 CHIEF COMPLAINT: Altered mental status. HISTORY OF PRESENT ILLNESS: Patient is a 72-year-old female who is [facility] from [facility] for not acting right and staring . In the emergency room her NIH stroke scale was [address] head and neck negative for critical stenosis. Noted to have 70% stenosis of proximal left internal carotid artery 50% on the right. ABG showed pH of 7.35 with pCO2 41.9 bicarb 22.4. Urine analysis history of cystitis and patient was given IV vancomycin in the emergency room. Apparently she was slightly more responsive but during my evaluation patient has been minimally responsive. Responding by saying yes to sternal rub but difficult to arouse. 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 She required craniotomy at that time in [place]. Normally she is awake and responsive no priorhistory of seizure. Patient also has history of end-stage disease on hemodialysis, anemia of chronic kidney disease, hypertension and coronary disease status post remote PCI. Given her fluctuating mentation concern for subclinical seizure. I discussed case with Dr. Tomas plan to obtain stat EEG while getting hemodialysis. Review of Systems Review of Systems Unobtainable due to mental status [facility] Medical History (Updated 09/15/23 @ 14:58 by Emerald Conn MD) CKD (chronic kidney disease) CVA (cerebral vascular accident) several History of cataract PVD (peripheral vascular disease) GERD (gastroesophageal reflux disease) Diabetes mellitus, type 2 Hyperlipidemia Hypertension Myocardial infarct x2 Surgical History History of arthroscopic knee surgery bilateral x2 History of carpal tunnel release rt History of hysterectomy Family History Mother Hypertension Diabetes Father Diabetes Brother CAD (coronary artery disease) Diabetes Brother Diabetes Legacy FamHx Relation: Brother(s) Hypertension Legacy FamHx Relation: Brother(s) Father Cancer Legacy FamHx Problem: Diagnosed with Cancer Heart disease Diabetes Mother Hypertension History of stroke Legacy FamHx Problem: Diagnosed with Stroke Diabetes Social History Smoking Status: Former smoker Tobacco Type: cigarettes Substance Use Type: None Meds Medications and Allergies Allergies cephalexin [From Keflex] Allergy (Unknown, Verified 09/15/23 09:36) Unknown Reaction, reddened pruritic rash diclofenac [From Arthrotec] Allergy (Unknown, Verified 09/15/23 09:36) Swelling misoprostol [From Arthrotec] Allergy (Unknown, Verified 09/15/23 09:36) Swelling Home Medications atorvastatin 20 mg tablet 20 mg PO QHS 03/28/21 [History Confirmed 09/15/23] calcium carbonate (Calcium Antacid) 400 mg PO TIDWM PRN Heartburn 03/28/21 [History Confirmed 09/15/23] carvedilol 12.5 mg tablet 12.5 mg PO BID 03/28/21 [History Confirmed 09/15/23] fexofenadine 60 mg tablet (Debbie Allergy) 60 mg PO DAILY 03/28/21 [History Confirmed 09/15/23] gabapentin 300 mg tablet,extended release 24 hr 300 mg PO QHS 03/28/21 [History Confirmed 09/15/23] omeprazole 20 mg tablet,delayed release 20 mg PO DAILY 06/30/22 [History Confirmed 09/15/23] sertraline 25 mg tablet 25 mg PO DAILY 06/30/22 [History Confirmed 09/15/23] acetaminophen 325 mg tablet 325 mg PO Q6H PRN Pain 07/01/22 [History Confirmed 09/15/23] bisacodyl 10 mg rectal suppository 10 mg VA DAILY PRN Constipation 07/01/22 [History Confirmed 09/15/23] glucagon HCl 1 mg solution for injection (Glucagon (HCl) Emergency Kit) 1 mg IM DIRECTED 07/01/22 [History Confirmed 09/15/23] guaifenesin 600 mg tablet, extended release 12 hr (Mucinex) 600 mg PO Q12H PRN Congestion 07/01/22 [History Confirmed 09/15/23] hydrocortisone 1 % topical gel 1 applic topical DIRECTED 07/01/22 [History Confirmed 09/15/23] loperamide 2 mg capsule 2 mg PO DIRECTED 07/01/22 [History Confirmed 09/15/23] magnesium oxide 400 mg PO DAILY 07/01/22 [History Confirmed 09/15/23] ondansetron 4 mg disintegrating tablet 4 mg PO Q8H PRN Nausea And Vomiting 07/01/22 [History Confirmed 09/15/23] folic acid 1 mg tablet 1 mg PO DAILY 07/31/22 [History Confirmed 09/15/23] furosemide 40 mg tablet 80 mg PO DAILY 07/31/22 [History Confirmed 09/15/23] darbepoetin chris in polysorbat 60 mcg/mL in polysorbate injection (Aranesp) 60 mcg IV-PUSH WE@1000 #0 mL 08/05/22 [Rx Confirmed 08/18/23] hydrocodone 5 mg-acetaminophen 325 mg tablet 1 tab PO Q8H PRN Pain 3 days #9 tabs 08/05/22 [Rx Confirmed 09/15/23] ammonium lactate 12 % topical cream 1 applic topical BID PRN rash 09/15/23 [History Confirmed 09/15/23] calcium carbonate (Hood-Gest Antacid) 200 mg PO TID PRN indigestion 09/15/23 [History Confirmed 09/15/23] carboxymethylcellulose 1 %-glycerin 0.9 % eye gel drops (Refresh Optive) 1 drp Eye-Both BID 09/15/23 [History Confirmed 09/15/23] dextrose 40 % oral gel (Glucose Gel) 10 g PO Q15M PRN hypoglycemia 09/15/23 [History Confirmed 09/15/23] insulin NPH-regular 70-30 U-100 insulin 100 unit/mL subcutaneous pen (Humulin 70/30 U-100 KwikPen) 40 unit subcut QAM 09/15/23 [History Confirmed 09/15/23] insulin NPH-regular 70-30 U-100 insulin 100 unit/mL subcutaneous pen (Humulin 70/30 U-100 KwikPen) 45 unit subcut QHS 09/15/23 [History Confirmed 09/15/23] insulin lispro 100 unit/mL subcutaneous pen 1 sliding scale dose subcut ACHS 09/15/23 [History Confirmed 09/15/23] lidocaine HCl 4 % topical cream (Aspercreme (lidocaine HCl)) 1 applic topical ASDIRECTED 09/15/23 [History Confirmed 09/15/23] menthol 4 % topical gel (Biofreeze (menthol)) 1 applic topical BID 09/15/23 [History Confirmed 09/15/23] midodrine 5 mg tablet 5 mg PO DIRECTED 09/15/23 [History Confirmed 09/15/23] polyvinyl alcohol 1.4 % eye drops (Artificial Tears (polyvinyl alcohol)) 1 drp Eye-Both QID 09/15/23 [History Confirmed 09/15/23] sodium polystyrene sulfonate 15 gram-sorbitol 20 gram/60 mL oral susp (SPS (withsorbitol)) 120 ml PO DAILY PRN hyperkalemia 09/15/23 [History Confirmed 09/15/23] Exam Physical Exam Vital Signs: Temp Pulse Resp BP Pulse Ox O2 Del Method O2 Flow Rate 97.5 F L 62 18 160/70 H 100 Nasal Cannula 2 09/15/23 09:33 09/15/23 13:22 09/15/23 13:22 09/15/23 13:22 09/15/23 13:22 09/15/23 13:22 09/15/23 13:22 Const Other: Patient minimally responsive but moving her right extremity and saying yes. Eyes closed and tongue protruded out. 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 Moving her right upper extremity but minimally responsive. Difficult to obtain detailed neurologic examination due to her mentation. No seizure activity noted. Extrem General: no calf tenderness and edema Results - Hospitalist H&P Lab Results Labs: Laboratory Last Values Corrected WBC 9.4 X10E3/uL (3.8-11.6) 09/15/23 09:30 Uncorrected WBC Count 9.4 x10E3/uL (3.8-11.6) 09/15/23 09:30 RBC 3.10 X10E6/uL (3.60-5.00) L 09/15/23 09:30 Hgb 10.3 g/dL (11.8-15.4) L 09/15/23 09:30 Hct 31.4 % (34.0-46.4) L 09/15/23 09:30 MCV 101.1 fl (80-100) H 09/15/23 09:30 MCH 33.1 pg (24.7-34.3) 09/15/23 09:30 MCHC 32.8 g/dL (32.0-35.0) 09/15/23 09:30 RDW 14.6 % (11.9-15.3) 09/15/23 09:30 Plt Count 118 x10E3/uL (150-450) L 09/15/23 09:30 MPV 8.0 fl (6.3-10.7) 09/15/23 09:30 Neut % (Auto) 69.8 % (.) 09/15/23 09:30 Lymph % (Auto) 19.6 % (.) 09/15/23 09:30 [place] % (Auto) 7.6 % (.) 09/15/23 09:30 Eos % (Auto) 2.1 % (.) 09/15/23 09:30 Baso % (Auto) 0.9 % (.) 09/15/23 09:30 Nucleat RBC Rel Count 0.0 /100 WBC (0-0.5) 09/15/23 09:30 Neut # (Auto) 6.6 x10E3/uL (1.8-7.7) 09/15/23 09:30 Lymph # (Auto) 1.9 x10E3/uL (1.00-4.8) 09/15/23 09:30 [place] # (Auto) 0.7 x10E3/uL (0.0-0.8) 09/15/23 09:30 Eos # (Auto) 0.2 x10E3/uL (0.0-0.45) 09/15/23 09:30 Baso # (Auto) 0.1 x10E3/uL (0.0-0.2) 09/15/23 09:30 Monocyte Dist Width 20.97 % (0.00-20.00) H 09/15/23 09:30 PT 11.8 Seconds (9.0-12.9) 09/15/23 09:30 INR 1.0 09/15/23 09:30 APTT 28.2 Seconds (25.1-36.5) 09/15/23 09:30 Sample Site Left radial 09/15/23 10:34 ABG pH 7.35 (7.35-7.45) 09/15/23 10:34 ABG pCO2 41.9 mmHg (35.0-45.0) 09/15/23 10:34 ABG pO2 165.8 mmHg (80.0-100.0) H* 09/15/23 10:34 ABG HCO3 22.4 mmol/L (23.0-29.0) L 09/15/23 10:34 ABG Total CO2 23.7 mmol/L (23.0-27.0) 09/15/23 10:34 ABG O2 Saturation 98.8 % (95.0-100.0) 09/15/23 10:34 ABG O2 Content 6.7 mmol/L (6.6-9.7) 09/15/23 10:34 ABG Base Excess -3.1 mmol/L (-3.0-3.0) L 09/15/23 10:34 O2 Delivery Device Nasal cannula 09/15/23 10:34 Liter Flow 2 L/min 09/15/23 10:34 FiO2 28 % 09/15/23 10:34 Critical Value 09/15/23 10:34 PHA Creatinine Clear 8.21 09/15/23 09:30 Sodium 134 mmol/L (136-145) L 09/15/23 09:30 Potassium 4.5 mmol/L (3.5-5.1) 09/15/23 09:30 Chloride 93 mmol/L (98-107) L 09/15/23 09:30 Carbon Dioxide 29.2 mmol/L (21.0-31.0) 09/15/23 09:30 Anion Gap 16.3 mEq/L (6.0-15.0) H 09/15/23 09:30 BUN 54 mg/dL (7-25) H 09/15/23 09:30 Creatinine 7.69 mg/dL (0.60-1.20) H 09/15/23 09:30 Est GFR (CKD-EPI) 5.144 mL/Min 09/15/23 09:30 Glucose 257 mg/dL (70-100) H 09/15/23 09:30 POC Glucose 247 mg/dl 09/15/23 09:32 Lactic Acid 1.3 mmol/L (0.5-2.2) 09/15/23 12:31 Calcium 8.5 mg/dL (8.6-10.3) L 09/15/23 09:30 Total Bilirubin 0.5 mg/dl (0.3-1.0) 09/15/23 09:30 AST 13 U/L (13-39) 09/15/23 09:30 ALT 23 U/L (7-52) 09/15/23 09:30 Alkaline Phosphatase 79 U/L (34-104) 09/15/23 09:30 Ammonia 26 umol/L (11-35) 09/15/23 10:21 Total Creatine Kinase 54 U/L (30-223) 09/15/23 09:30 Troponin I High Sens 6.2 pg/mL (0.0-15.0) 09/15/23 09:30 Total Protein 7.9 gm/dL (6.4-8.9) 09/15/23 09:30 Albumin 3.5 gm/dL (3.5-5.7) 09/15/23 09:30 Globulin 4.4 gm/dL 09/15/23 09:30 Albumin/Globulin Ratio 0.8 09/15/23 09:30 Urine Color Yellow (Yellow) 09/15/23 10:10 Urine Appearance Turbid (Clear) A 09/15/23 10:10 Urine pH 5.5 (5.0-9.0) 09/15/23 10:10 Ur Specific [place] 1.015 (1.001-1.030) 09/15/23 10:10 Urine Protein 100 mg/dL (Negative) H 09/15/23 10:10 Urine Glucose (UA) 250 mg/dL (Normal) H 09/15/23 10:10 Urine Ketones Negative (Negative) 09/15/23 10:10 Urine Occult Blood 2+ (Negative) H 09/15/23 10:10 Urine Nitrite Negative (Negative) 09/15/23 10:10 Urine Bilirubin Negative (Negative) 09/15/23 10:10 Urine Urobilinogen Normal mg/dL (Normal) 09/15/23 10:10 Ur Leukocyte Esterase 4+ (Negative) H 09/15/23 10:10 Urine RBC 5-9 /HPF (0-4) H 09/15/23 10:10 Urine WBC Innumerable /HPF (0-4) H 09/15/23 10:10 Ur Squamous Epith Cells 5-9 /HPF (0-2) H 09/15/23 10:10 Urine Bacteria 4+ /HPF (None Seen) H 09/15/23 10:10 Hyaline Casts 0-8 /LPF (0-8) 09/15/23 10:10 Urine Yeast None seen /HPF (None Seen) 09/15/23 10:10 Urine Opiates Screen Negative (Negative) 09/15/23 10:10 Ur Barbiturates Screen Negative (Negative) 09/15/23 10:10 Ur Phencyclidine Scrn Negative (Negative) 09/15/23 10:10 Ur Amphetamines Screen Negative (Negative) 09/15/23 10:10 U Benzodiazepines Scrn Negative (Negative) 09/15/23 10:10 Urine Cocaine Screen Negative (Negative) 09/15/23 10:10 U Marijuana (THC) Screen Negative (Negative) 09/15/23 10:10 Ethyl Alcohol < 10 mg/dL 09/15/23 09:30 % Ethyl Alcohol TNP 09/15/23 09:30 ABG Interpretation ABG results: 09/15/23 10:34 ABG pH 7.35 ABG pCO2 41.9 ABG pO2 165.8 H* ABG HCO3 22.4 L ABG Total CO2 23.7 ABG O2 Saturation 98.8 ABG O2 Content 6.7 ABG Base Excess -3.1 L Assessment & Plan Assessment/Plan (1) Acute metabolic encephalopathy: (2) ESRD (end stage renal disease) on dialysis: (3) Anemia in chronic kidney disease (CKD): (4) Acute cystitis: (5) Type 2 diabetes mellitus with diabetic chronic kidney disease: (6) CVA (cerebral vascular accident): Plan Patient with multiple medical comorbidities including 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 Apparently patient was noted to be staring into space and not acting right. As per the daughter her baseline is alert and oriented. In the ER given her fluctuating mentation concern for subclinical seizure specially in view of her previous hemorrhagic stroke which could be nidus for seizure. Other possibility acute metabolic encephalopathy due to acute cystitiscannot be ruled out. Case discussed with neurology with plan to obtain stat EEG. Case also discussed with nephrology with plan for her routine hemodialysis. Hemodynamically patient is stable. Will start her on ertapenem given her cephalexin allergy and follow-up cultures obtained in the emergency room. Resume home medication from [facility] once she is able to take orally. Start on sliding scale coverage. DVT prophylaxis. IP vs OBS Justification Based on differential dx, clinical care plan, and risk of adverse events, if untreated, in my clinical judgement this patient requires an acute care setting as: INPATIENT because of an expectation of an over 2 midnight stay. Estimated length of stay (# of days): 3 Documented By: Emerald Conn MD 09/15/23 1435 Signed By: <Electronically signed by Emerald Conn MD> 09/15/23 1501 [facility] Work Phone: [phone] 181-519905-22-2024 Consult note Author Essie Salas [facility] September 15, 2023 2:50pm Note Date/Time September 15, 2023 2:35p [facility] [address] [place] [address] Nephrology Consult Note Signed Patient: Amparo Castorena MR#: [id number] : 1950 Acct:[id number] Age/Sex: 72 / F Adm Date: 4 Loc: ER Room: Type: [facility] ER Attending Dr: Copies to: MD Halle Yin FNP-C Christopher Mann MD~ Providers Consult Date: 09/15/23 Primary Care Provider: Christopher Mann MD HPI Reason for Consult: ESRD management History of Present Illness: This is a 72-year-old female well-known to me from outpatient dialysis unit was brought into the emergency room from [facility] due to the acute change in mental status. On evaluation in emergency room patient was still found to be minimally responsive with slurred speech. She had a CAT scan of the brain and done in emergency room which showed no acute finding. She had a CTA which showed no acute blockage. She was found to have abnormal UA and was given empiric antibiotic for possible UTI. Neurology was contacted by the hospitalistteam and recommended to do EEG to rule out seizures. 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 She currently goes to the [place] dialysis unit 3 times a week on MWF schedule and has AV fistula as a dialysis access. Patient is due for dialysis today nephrology is consulted for ESRD management. Her other comorbidities are CVA with left-sided residual weakness, DM, HTN, CAD s/p multiple PCI, dyslipidemia, anemia of renal disease and secondary hyperparathyroidism. Patient was seen and examined bedside during hemodialysis. She is able to open her eyes and answer her name. Review of Systems Review of Systems Unobtainable due to mental status [facility] Medical History CKD (chronic kidney disease) CVA (cerebral vascular accident) several History of cataract PVD (peripheral vascular disease) GERD (gastroesophageal reflux disease) Diabetes mellitus, type 2 Hyperlipidemia Hypertension Myocardial infarct x2 Surgical History History of arthroscopic knee surgery bilateral x2 History of carpal tunnel release rt History of hysterectomy Family History Mother Hypertension Diabetes Father Diabetes Brother CAD (coronary artery disease) Diabetes Brother Diabetes Legacy FamHx Relation: Brother(s) Hypertension Legacy FamHx Relation: Brother(s) Father Cancer Legacy FamHx Problem: Diagnosed with Cancer Heart disease Diabetes Mother Hypertension History of stroke Legacy FamHx Problem: Diagnosed with Stroke Diabetes Social History Smoking Status: Former smoker Tobacco Type: cigarettes Substance Use Type: None Meds Medications & Allergies Allergies cephalexin [From Keflex] Allergy (Unknown, Verified 09/15/23 09:36) Unknown Reaction, reddened pruritic rash diclofenac [From Arthrotec] Allergy (Unknown, Verified 09/15/23 09:36) Swelling misoprostol [From Arthrotec] Allergy (Unknown, Verified 09/15/23 09:36) Swelling Home Medications atorvastatin 20 mg tablet 20 mg PO QHS 03/28/21 [History Confirmed 09/15/23] calcium carbonate (Calcium Antacid) 400 mg PO TIDWM PRN Heartburn 03/28/21 [History Confirmed 09/15/23] carvedilol 12.5 mg tablet 12.5 mg PO BID 03/28/21 [History Confirmed 09/15/23] fexofenadine 60 mg tablet (Debbie Allergy) 60 mg PO DAILY 03/28/21 [History Confirmed 09/15/23] gabapentin 300 mg tablet,extended release 24 hr 300 mg PO QHS 03/28/21 [History Confirmed 09/15/23] omeprazole 20 mg tablet,delayed release 20 mg PO DAILY 06/30/22 [History Confirmed 09/15/23] sertraline 25 mg tablet 25 mg PO DAILY 06/30/22 [History Confirmed 09/15/23] acetaminophen 325 mg tablet 325 mg PO Q6H PRN Pain 07/01/22 [History Confirmed 09/15/23] bisacodyl 10 mg rectal suppository 10 mg VA DAILY PRN Constipation 07/01/22 [History Confirmed 09/15/23] glucagon HCl 1 mg solution for injection (Glucagon (HCl) Emergency Kit) 1 mg IM DIRECTED 07/01/22 [History Confirmed 09/15/23] guaifenesin 600 mg tablet, extended release 12 hr (Mucinex) 600 mg PO Q12H PRN Congestion 07/01/22 [History Confirmed 09/15/23] hydrocortisone 1 % topical gel 1 applic topical DIRECTED 07/01/22 [History Confirmed 09/15/23] loperamide 2 mg capsule 2 mg PO DIRECTED 07/01/22 [History Confirmed 09/15/23] magnesium oxide 400 mg PO DAILY 07/01/22 [History Confirmed 09/15/23] ondansetron 4 mg disintegrating tablet 4 mg PO Q8H PRN Nausea And Vomiting 07/01/22 [History Confirmed 09/15/23] folic acid 1 mg tablet 1 mg PO DAILY 07/31/22 [History Confirmed 09/15/23] furosemide 40 mg tablet 80 mg PO DAILY 07/31/22 [History Confirmed 09/15/23] darbepoetin chris in polysorbat 60 mcg/mL in polysorbate injection (Aranesp) 60 mcg IV-PUSH WE@1000 #0 mL 08/05/22 [Rx Confirmed 08/18/23] hydrocodone 5 mg-acetaminophen 325 mg tablet 1 tab PO Q8H PRN Pain 3 days #9 tabs 08/05/22 [Rx Confirmed 09/15/23] ammonium lactate 12 % topical cream 1 applic topical BID PRN rash 09/15/23 [History Confirmed 09/15/23] calcium carbonate (Hood-Gest Antacid) 200 mg PO TID PRN indigestion 09/15/23 [History Confirmed 09/15/23] carboxymethylcellulose 1 %-glycerin 0.9 % eye gel drops (Refresh Optive) 1 drp Eye-Both BID 09/15/23 [History Confirmed 09/15/23] dextrose 40 % oral gel (Glucose Gel) 10 g PO Q15M PRN hypoglycemia 09/15/23 [History Confirmed 09/15/23] insulin NPH-regular 70-30 U-100 insulin 100 unit/mL subcutaneous pen (Humulin 70/30 U-100 KwikPen) 40 unit subcut QAM 09/15/23 [History Confirmed 09/15/23] insulin NPH-regular 70-30 U-100 insulin 100 unit/mL subcutaneous pen (Humulin 70/30 U-100 KwikPen) 45 unit subcut QHS 09/15/23 [History Confirmed 09/15/23] insulin lispro 100 unit/mL subcutaneous pen 1 sliding scale dose subcut ACHS 09/15/23 [History Confirmed 09/15/23] lidocaine HCl 4 % topical cream (Aspercreme (lidocaine HCl)) 1 applic topical ASDIRECTED 09/15/23 [History Confirmed 09/15/23] menthol 4 % topical gel (Biofreeze (menthol)) 1 applic topical BID 09/15/23 [History Confirmed 09/15/23] midodrine 5 mg tablet 5 mg PO DIRECTED 09/15/23 [History Confirmed 09/15/23] polyvinyl alcohol 1.4 % eye drops (Artificial Tears (polyvinyl alcohol)) 1 drp Eye-Both QID 09/15/23 [History Confirmed 09/15/23] sodium polystyrene sulfonate 15 gram-sorbitol 20 gram/60 mL oral susp (SPS (withsorbitol)) 120 ml PO DAILY PRN hyperkalemia 09/15/23 [History Confirmed 09/15/23] Active Medications: Active Medications Darbepoetin Chris (Darbepoetin Chris In Polysorbat 40 Mcg/Ml Vial) 40 mcg IV- PUSHWE MARIA VICTORIA; Protocol Stop: 09/14/24 13:59 Heparin Sodium (Porcine) (Heparin 10,000 Unit/10 Ml Vial) 3,000 unit IV PRN PRN PRN Reason: Dialysis Stop: 09/14/24 13:43 Heparin Sodium (Porcine) (Heparin 10,000 Unit/10 Ml Vial) 1,500 unit IV PRN PRN PRN Reason: Dialysis Stop: 09/14/24 13:43 Sodium Chloride (0.9% Sodium Chloride 1,000 Ml) 1,000 mls @ 999 mls/hr IV .Q1H1M ONE Stop: 09/15/23 14:45 Sodium Chloride (0.9% Sodium Chloride 1,000 Ml) 1,000 mls @ 0 mls/hr MISCELLANE.Q0M PRN PRN Reason: Dialysis Stop: 09/14/24 13:42 Midodrine (Midodrine 5 Mg Tablet) 5 mg PO PRN PRN PRN Reason: Dialysis Stop: 09/14/24 13:45 Sodium Chloride (Sodium Chloride 0.9 % 10 Ml Syringe) 0 ml IV-PUSH PRN PRN PRN Reason: Flush Stop: 09/14/24 09:29 Sodium Chloride (Sodium Chloride 0.9 % 10 Ml Syringe) 0 ml IV-PUSH PRN PRN PRN Reason: Flush Stop: 09/14/24 13:42 Exam Physical Exam Vital Signs: Temp Pulse Resp BP Pulse Ox O2 Del Method O2 Flow Rate 97.5 F L 62 18 160/70 H 100 Nasal Cannula 2 09/15/23 09:33 09/15/23 13:22 09/15/23 13:22 09/15/23 13:22 09/15/23 13:22 09/15/23 13:22 09/15/23 13:22 Narrative: General: Appears comfortable and not in distress Heart: S1-S2, no rub Lung: Bilateral air entry, no wheezing or crackles Abdomen: Soft, positive bowel sounds Extremities: No edema, no cyanosis Head: Atraumatic, normocephalic Ear: No gross hearing Deficit or external ear redness Eyes: No pallor or redness Neck: No JVD or visible mass Skin: No rashes , warm to touch BENEFITS SPECIALIST RECRUITER: Somnolent but arousable. Able to tell me her name and open her eyes Musculoskeletal: No swelling or limitation of movement of the large joints Psychiatric: Somnolent. Results - Nephrology Labs 09/15/23 09:30 09/15/23 09:30 Labs: 09/15/23 09/15/23 09:30 10:10 BUN 54 H Creatinine 7.69 H Albumin 3.5 Urine Color Yellow Urine Appearance Turbid A Urine pH 5.5 Ur Specific [place] 1.015 Urine Protein 100 H Urine Glucose (UA) 250 H Urine Ketones Negative Urine Occult Blood 2+ H Urine Nitrite Negative Ur Leukocyte Esterase 4+ H Urine RBC 5-9 H Urine WBC Innumerable H Urine Bacteria 4+ H Radiology Impressions Impressions - last 24 hours: Impressions Chest X-Ray 09/15/23 09:34 IMPRESSION: Perihilar vascular prominence is noted suggesting volume overload or congestive heart failure. Impression dictated by: Mario Eaton M.D.09/15/2023 10:52 AM Dictation Location: [place] [address] 09/15/23 09:34 IMPRESSION: No acute intracranial pathology. Findings suggest a remote right-sided infarct and previous left frontal approachventricular shunt or intracranial pressure monitor placement. The shunt/monitor is no longer present. Findings were discussed with Halle below more at 9:48 AM on 09/15/2023 Impression dictated by: Mario Eaton M.D.09/15/2023 9:52 AM Dictation Location: [place] [address] Head CTA 09/15/23 09:35 IMPRESSION: Calcified plaque is noted in the carotid bifurcations. There is motion artifact at the right carotid bifurcation partially obscuring assessment of stenosis. This appears to measure approximately 50% on the right. There is approximately 70% stenosis of the proximal left internal carotid artery. There is no dissection, aneurysm dilatation, or occlusion. Impression dictated by: Mario Eaton M.D.09/15/2023 10:25 AM Dictation Location: [place] [address] Any impression(s) listed above is documentation that was entered by the reading physician into a diagnostic report(s) for Amparo Castorena. I have reviewed the report(s) and am incorporating any findings in the treatment plan of this patient where applicable. A&P - Nephrology Assessment/Plan (1) AMS (altered mental status): Assessment/Problem Details: She has a change in mental status likely due to the UTI or due to the seizure. (2) ESRD (end stage renal disease) on dialysis: Assessment/Problem Details: She has a ESRD due to the diabetic nephropathy and hypertensive nephrosclerosis. Currently goes to the dialysis times a week on an MWF schedule. She has AV fistula as a dialysis access. (3) Anemia in chronic kidney disease (CKD): Assessment/Problem Details: She has anemia due to the ESRD currently receives Aranesp with hemodialysis. (4) Secondary hyperparathyroidism: Assessment/Problem Details: She has a secondary hyperparathyroidism currently receives IV Zemplar with dialysis. (5) Type 2 diabetes mellitus with diabetic chronic kidney disease: Assessment/Problem Details: She has insulin-dependent type 2 diabetes mellitus currently using insulin NPH. (6) Benign hypertension with end-stage renal disease: Assessment/Problem Details: Her blood pressure is controlled. She currently takes carvedilol. Plan * Hemodialysis today as ordered. * Continue home dose of carvedilol. Will give her midodrine for intradialytic hypotension. * Will give Aranesp 40 mcg once weekly with dialysis today. * Will give Zemplar 5 mcg x 1 dose today. * Continue IV antibiotics for possible UTI and adjust as needed based on culture sensitivity. Pharmacy to dose medication. * Continue workup for change in mental status as per the neurology * Continue DM management as per the primary hospitalist team. * Check CBC and renal function daily * Thanks for consult. Will continue follow with you. Please feel free to call us with any question. Documented By: Essie Salas MD 09/15/23 1430 Signed By: <Electronically signed by Essie Salas MD> 09/15/23 3276 [facility] Work Phone: 1(956) 929-347811-28-2023 History of Present illness Narrative* Danii Rodriguez MD - 03/23/2023 2:20 PM EST Subjective Essence Castorena is a 72 y.o. female Chief Complaint Follow-up HPI Patient is here for follow-up continue management for history of coronary artery disease with remote PCI in [place], hypertension, hyperlipidemia. Patient is a [facility] of a local [facility]. She had dense left-sided hemiplegia. She denies any chest pain but reports some mild shortness of breath since the last time I saw her. She has limited exercise tolerance. She has been stable cardiac cifuentes. Assessment 1. Coronary artery disease prior intervention in [place] detail is lacking. Recent evaluation of atypical chest pain. Stress test and echocardiogram appears to be reassuring 2. Chronic kidney disease on hemodialysis 3. Hypertension controlled 4. Hyperlipidemia on treatment 5. Diabetes mellitus 6. History of stroke with left-sided hemiplegia almost wheelchair-bound 7. assisted resident 8. Intermittent episode of hemodialysis associated [...] tablet (500 mg) 3 times a day. prn,Disp: , Rfl: carvedilol (Coreg) 12.5 mg tablet, [...] times a day., Disp: , Rfl: HYDROcodone-acetaminophen (Zebulon) 5-325 mg tablet, Take 1 tablet by [...] Disp: , Rfl: Assessment/Plan 1. Atherosclerosis of seneca coronary artery of seneca heart without angina pectoris Follow Up In Cardiology 2. Chest discomfort Follow Up In Cardiology 3. Essential hypertension, benign 4. Mixed hyperlipidemia 5. Dialysis patient (CMS/HCC) 6. Cerebrovascular accident (CVA), unspecified mechanism (CMS/HCC) [facility] Work Phone: 1(602) 919-773211-28-2023 Instructions* Patient Instructions* Shannan York CMA - 03/23/2023 2:20 PM [...] time of your visit. [facility] Work Phone: 1(173) 452-849904-07-2023 Progress note Author Tex Kim [facility] July 31, 2022 11:05am Note Date/Time July 31, 2022 11:0 2am [facility] [place] [address] Hem/Onc Follow Up Note - OP Signed Patient: Amparo Castorena MR#: [id number] : 1950 Acct:[id number] Age/Sex: 71 / F Type: REG RCR Copies to: MD Christopher Palafox MD~ Date of Service: 07/31/2022 Time of Service: 11:00 - Assessment & Plan (1) Anemia in chronic kidney disease (CKD) Plan: Anemia of chronic kidney disease CKD-IV on dialysis. Previously seen at [facility] and transferred care to [facility] as of 07/01/22 now on dialysis, gets epo agents through dialysis. Is awaiting fistula for dialysis, this will be done in [place] Previous anemia work-up completed prior to transfer [...] with a history of CVA, diabetes, PVD, VA x 2, cataracts, hyperlipidemia, HTN, GERD, and anemia of CKD. Surgical history includes hysterectomy, carpal tunnel surgery and bilateral arthroscopic knee surgery. She denies any personal or family history of cancer. She is referred by Dr. Sanchez Jean at [facility] to establish care for her anemia from CKD. She recently started Aranesp weekly and is in the process of getting dialysis fistula placed to start dialysis. Most recent labs reveal hgb 8.1, wbc 13.9, platelets 135,000, anc 10.8. Creatinine 4.9 with GFR 9, calcium 8.0. She is transferring care as she resides at [facility] in [place] and this is muchcloser for her and [...] for coordination of care (as documented) and [id number] counseling of patient and/or family. [facility] - Medical History Medical History: [...] calcium 500 mg-D3 400 unit-K 15 mcg-folic [id number] tablet 1 tab PO DAILY 03/28/21 [History [...] bisacodyl 10 mg rectal suppository 10 mg VA DAILY PRN Constipation 07/01/22 [History Confirmed 07/31/22] [...] by Tex Kim II, DO> 07/31/22 1105 [facility] Work Phone: [phone]) 912-138403-21-2023 Evaluation note* Encounter Date Diagnosis Assessment Notes [...] the acarbose due to the advanced CKD. [employer] Other 03-08-2023 Consult note Author Essence Alicea [facility] July 01, 2022 1:16pm Note Date/Time July 01, 2022 9:47 am [facility] [place] [address] Hem/Onc Consult Note - OP Signed Patient: Amparo Castorena MR#: [id number] : 1950 Acct:[id number] Age/Sex: 71 / F Type: REG RCR Copies to: MD Christopher Palafox MD~ HPI Date/Time of Service: Date of Service: 07/01/2022 Time of Service: 09:46 Referring Provider/PCP: Referring Provider: Sanchez Jean MD PCP: Christopher Mann MD - History of Present Illness Chief Complaint: Patient is transferring care from [facility] for anemia. Resides at [facility]. Outside labs. HPI: Amparo is a 71-year-old female with a history of CVA, diabetes, PVD, VA x 2, cataracts, hyperlipidemia, HTN, GERD, and anemia of CKD. Surgical history includes hysterectomy, carpal tunnel surgery and bilateral arthroscopic knee surgery. She denies any personal or family history of cancer. She is referred by Dr. Sanchez Jean at [facility] to establish care for her anemia from CKD. She recently started Aranesp weekly and is in the process of getting dialysis fistula placed to start dialysis. Most recent labs reveal hgb 8.1, wbc 13.9, platelets 135,000, anc 10.8. Creatinine 4.9 with GFR 9, calcium 8.0. She is transferring care as she resides at [facility] in [place] and this is muchcloser for her and [...] sweats, pain or other complaints. [facility] - Medical History Medical History: [...] calcium 500 mg-D3 400 unit-K 15 mcg-folic [id number] tablet 1 tab PO DAILY 03/28/21 [History [...] bisacodyl 10 mg rectal suppository 10 mg VA DAILY PRN Constipation 07/01/22 [History Confirmed 07/01/22] [...] will start dialysis soon. Previously seen at [facility] and transferred care to [facility] as of 07/01/22 She is currently on Aranesp weekly, will clarify dose. [facility] at the [facility]. Is awaiting fistula for dialysis, this will be done in [place] Previous anemia work-up completed prior to transfer [...] for coordination of care (as documented) and [id number] counseling of patient and/or family. Dictated By: Essence Alicea APRN DD/ [id number] Signed By: <Electronically signed by ELLA Alicea> 07/01/22 1316 [facility] Work Phone: Consult note Author Rodger Tomas [facility] September 15, 2023 5:23pm Note Date/Time September 15, 2023 4:06p [facility] [address] [place] [address] Neurology Consult Note Signed Patient: Amparo Castorena MR#: [id number] : 1950 Acct:[id number] Age/Sex: 72 / F Adm Date: 4 Loc: 3T Room: [address] [place] [address] Type: ADM IN Attending Dr: Emerald Conn MD Copies to: DO Emerald Ji MD Rugen M Alda, MD~ HPI Consult Date: 09/15/23 [employer]: Rodger Tomas DO Reason for consult: Altered mental status Consult Narrative HPI: I was asked to see this 72-year-old patient in new patient neurology consultation at the request of the hospitalist service for altered mental status. The patient was noted to be not acting right and staring off per [facility] staff. She was brought into the emergency department and there wasinitially concern that this could have been strokelike in nature. CT of the brain and CT angiogram of the head and neck were completed and did not show any evidence of acute findings. There was noted stenosis and noted old stroke and evidence of probable previous shunt placement on the left but no acute findings. Due to the concern for the persistent altered mental status and the difficulty arousing the patient and the previous history of craniotomy there was concern that seizure may have been playing a role in a subclinical way. Patient does also have a history of end-stage renal disease on hemodialysis, anemia of chronic disease, hypertension, coronary disease and history of stenting thereof. I saw the patient while she was in dialysis today. She was alert with her eyes open and was shaking her head yes and no for me today. Review of Systems Review of Systems Unobtainable due to mental status and Unobtainable due to mental condition [facility] Medical History (Updated 09/15/23 @ 17:22 by Rodger Tomas DO) CKD (chronic kidney disease) CVA (cerebral vascular accident) several History of cataract PVD (peripheral vascular disease) GERD (gastroesophageal reflux disease) Diabetes mellitus, type 2 Hyperlipidemia Hypertension Myocardial infarct x2 Surgical History History of arthroscopic knee surgery bilateral x2 History of carpal tunnel release rt History of hysterectomy Family History Mother Hypertension Diabetes Father Diabetes Brother CAD (coronary artery disease) Diabetes Brother Diabetes Legacy FamHx Relation: Brother(s) Hypertension Legacy FamHx Relation: Brother(s) Father Cancer Legacy FamHx Problem: Diagnosed with Cancer Heart disease Diabetes Mother Hypertension History of stroke Legacy FamHx Problem: Diagnosed with Stroke Diabetes Social History Smoking Status: Former smoker Tobacco Type: cigarettes Substance Use Type: None Meds Medications and Allergies Allergies cephalexin [From Keflex] Allergy (Unknown, Verified 09/15/23 09:36) Unknown Reaction, reddened pruritic rash diclofenac [From Arthrotec] Allergy (Unknown, Verified 09/15/23 09:36) Swelling misoprostol [From Arthrotec] Allergy (Unknown, Verified 09/15/23 09:36) Swelling Home Medications atorvastatin 20 mg tablet 20 mg PO QHS 03/28/21 [History Confirmed 09/15/23] calcium carbonate (Calcium Antacid) 400 mg PO TIDWM PRN Heartburn 03/28/21 [History Confirmed 09/15/23] carvedilol 12.5 mg tablet 12.5 mg PO BID 03/28/21 [History Confirmed 09/15/23] fexofenadine 60 mg tablet (Debbie Allergy) 60 mg PO DAILY 03/28/21 [History Confirmed 09/15/23] gabapentin 300 mg tablet,extended release 24 hr 300 mg PO QHS 03/28/21 [History Confirmed 09/15/23] omeprazole 20 mg tablet,delayed release 20 mg PO DAILY 06/30/22 [History Confirmed 09/15/23] sertraline 25 mg tablet 25 mg PO DAILY 06/30/22 [History Confirmed 09/15/23] acetaminophen 325 mg tablet 325 mg PO Q6H PRN Pain 07/01/22 [History Confirmed 09/15/23] bisacodyl 10 mg rectal suppository 10 mg VA DAILY PRN Constipation 07/01/22 [History Confirmed 09/15/23] glucagon HCl 1 mg solution for injection (Glucagon (HCl) Emergency Kit) 1 mg IM DIRECTED 07/01/22 [History Confirmed 09/15/23] guaifenesin 600 mg tablet, extended release 12 hr (Mucinex) 600 mg PO Q12H PRN Congestion 07/01/22 [History Confirmed 09/15/23] hydrocortisone 1 % topical gel 1 applic topical DIRECTED 07/01/22 [History Confirmed 09/15/23] loperamide 2 mg capsule 2 mg PO DIRECTED 07/01/22 [History Confirmed 09/15/23] magnesium oxide 400 mg PO DAILY 07/01/22 [History Confirmed 09/15/23] ondansetron 4 mg disintegrating tablet 4 mg PO Q8H PRN Nausea And Vomiting 07/01/22 [History Confirmed 09/15/23] folic acid 1 mg tablet 1 mg PO DAILY 07/31/22 [History Confirmed 09/15/23] furosemide 40 mg tablet 80 mg PO DAILY 07/31/22 [History Confirmed 09/15/23] darbepoetin chris in polysorbat 60 mcg/mL in polysorbate injection (Aranesp) 60 mcg IV-PUSH WE@1000 #0 mL 08/05/22 [Rx Confirmed 08/18/23] hydrocodone 5 mg-acetaminophen 325 mg tablet 1 tab PO Q8H PRN Pain 3 days #9 tabs 08/05/22 [Rx Confirmed 09/15/23] ammonium lactate 12 % topical cream 1 applic topical BID PRN rash 09/15/23 [History Confirmed 09/15/23] calcium carbonate (Hood-Gest Antacid) 200 mg PO TID PRN indigestion 09/15/23 [History Confirmed 09/15/23] carboxymethylcellulose 1 %-glycerin 0.9 % eye gel drops (Refresh Optive) 1 drp Eye-Both BID 09/15/23 [History Confirmed 09/15/23] dextrose 40 % oral gel (Glucose Gel) 10 g PO Q15M PRN hypoglycemia 09/15/23 [History Confirmed 09/15/23] insulin NPH-regular 70-30 U-100 insulin 100 unit/mL subcutaneous pen (Humulin 70/30 U-100 KwikPen) 40 unit subcut QAM 09/15/23 [History Confirmed 09/15/23] insulin NPH-regular 70-30 U-100 insulin 100 unit/mL subcutaneous pen (Humulin 70/30 U-100 KwikPen) 45 unit subcut QHS 09/15/23 [History Confirmed 09/15/23] insulin lispro 100 unit/mL subcutaneous pen 1 sliding scale dose subcut ACHS 09/15/23 [History Confirmed 09/15/23] lidocaine HCl 4 % topical cream (Aspercreme (lidocaine HCl)) 1 applic topical ASDIRECTED 09/15/23 [History Confirmed 09/15/23] menthol 4 % topical gel (Biofreeze (menthol)) 1 applic topical BID 09/15/23 [History Confirmed 09/15/23] midodrine 5 mg tablet 5 mg PO DIRECTED 09/15/23 [History Confirmed 09/15/23] polyvinyl alcohol 1.4 % eye drops (Artificial Tears (polyvinyl alcohol)) 1 drp Eye-Both QID 09/15/23 [History Confirmed 09/15/23] sodium polystyrene sulfonate 15 gram-sorbitol 20 gram/60 mL oral susp (SPS (withsorbitol)) 120 ml PO DAILY PRN hyperkalemia 09/15/23 [History Confirmed 09/15/23] Exam Physical Exam Vital Signs: Temp Pulse Resp BP Pulse Ox O2 Del Method O2 Flow Rate 97.4 F L 52 L 18 87/42 L 100 Nasal Cannula 2 09/15/23 14:03 09/15/23 15:34 09/15/23 14:03 09/15/23 15:34 09/15/23 14:03 09/15/23 14:03 09/15/23 14:03 Narrative: Patient was awake and alert Patient was nonverbal Patient did shake her head yes and no which seem to be quite reasonable and accurate but had difficulty following multistep commands Patient was able to move her right upper extremity and right lower extremity in a 1-2/5 manner Patient was unable to move the left side Reflexes appear brisk Coordination and sensation and gait were not tested Results - Neuro Laboratory Findings 09/15/23 09:30 09/15/23 09:30 Lab Results: Ammonia 26 umol/L (11-35) 09/15/23 10:21 Diagnostic Findings Imaging/Impressions: ITS Impressions Chest X-Ray 09/15/23 09:34 IMPRESSION: Perihilar vascular prominence is noted suggesting volume overload or congestive heart failure. Impression dictated by: Mario Eaton M.D.09/15/2023 10:52 AM Dictation Location: [facility] 09/15/23 09:34 IMPRESSION: No acute intracranial pathology. Findings suggest a remote right-sided infarct and previous left frontal approachventricular shunt or intracranial pressure monitor placement. The shunt/monitor is no longer present. Findings were discussed with Halle below more at 9:48 AM on 09/15/2023 Impression dictated by: Mario Eaton M.D.09/15/2023 9:52 AM Dictation Location: [facility] Head CTA 09/15/23 09:35 IMPRESSION: Calcified plaque is noted in the carotid bifurcations. There is motion artifact at the right carotid bifurcation partially obscuring assessment of stenosis. This appears to measure approximately 50% on the right. There is approximately 70% stenosis of the proximal left internal carotid artery. There is no dissection, aneurysm dilatation, or occlusion. Impression dictated by: Mario Eaton M.D.09/15/2023 10:25 AM Dictation Location: [place] [address] Assessment/Plan (1) Acute metabolic encephalopathy: (2) AMS (altered mental status): Qualifiers: Altered mental status type: delirium Qualified Code(s): R41.0 - Disorientation, unspecified (3) ESRD (end stage renal disease) on dialysis: (4) Anemia in chronic kidney disease (CKD): Qualifiers: Chronic kidney disease stage: on chronic dialysis Qualified Code(s): N18.6 - End stage renal disease; D63.1 - Anemia in chronic kidney disease; Z99.2 - Dependence on renal dialysis (5) Acute cystitis: Qualifiers: Hematuria presence: without hematuria Qualified Code(s): N30.00 - Acutecystitis without hematuria Plan It is my impression that the patient has altered mental status. The patient hasa history of chronic hemiparesis from previous stroke and also history of craniotomy. Patient was found to have an urinary tract infection in the emergency department and is being treated with IV antibiotics. Patient is also due for dialysis and is supposed to be getting dialysis today. Patient was somewhat hypotensive during dialysis and I wonder if the fluctuations in blood pressure are the culprit for her mental status changes along with infection in the urine. Workup: CT of the brain without contrast: Evidence of an old right cerebral infarct and old left shunt placement and craniotomy CT angiogram of the head and neck: 50% stenosis of the right and 70% stenosis ofthe left internal carotid arteries. No evidence of dissection, aneurysm or occlusion MRI of the brain without contrast: Pending UA: Positive for 4+ leukocyte Estrace and innumerable white blood cells CBC again identifies anemia Basic metabolic panel identifies mild hyponatremia with a sodium of 134 as well as a substantially elevated creatinine at 7.69 and a substantially elevated blood urea nitrogen at 54 Chest x-ray is suggestive of heart failure without evidence of consolidation ammonia: Within normal limits TSH: Pending Vitamin B12: Pending Plan: I suggest very careful monitoring of the patient as she apparently has a historyof recurrent infections and she was quite hypotensive requiring midodrine duringdialysis today. I suggest continuation of treatment of infection per the primary service for theabnormal urinalysis We will obtain further workup with MRI as above to ensure there is no other intracranial process that could be causing for the patient's symptoms Supportive care and we will follow Documented By: Rodger Tomas DO 4 [id number] Signed By: <Electronically signed by Rodger Tomas DO> 09/15/23 1723 [facility] Work Phone: Discharge summary Author Emerald Conn [facility] September 17, 2023 2:17pm Note Date/Time September 17, 2023 12:23 pm [facility] [address] [place] [address] Discharge Summary Signed Patient: Amparo Castorena MR#: [id number] : 1950 Acct:[id number] Age/Sex: 72 / F Adm Date: 4 Loc: Room: [address] [place] [address]: Emerald Conn MD Copies to: MD Christopher Baldwin MD~ Providers Date of Discharge: 09/17/23 Discharging Provider: Emerald Conn Additional Discharging Provider: Emerald Conn Primary Care Provider: Christopher Mann Consults: 09/15/23 14:10 Consult to Nephrology Routine Comment: Consulting Provider: Essie Salas Has Provider Been Notified: Yes Date of Notification: 09/15/23 Time of Notification: 16:03 Reason for Consult: Dialysis Treatment Consult to Neurology Routine Comment: Consulting Provider: Rodger Tomas Reason For Exam: ams Has Provider Been Notified: Yes Date of Notification: 09/15/23 Time of Notification: 16:04 09/16/23 12:52 Consult to Occupational Therapy Routine Comment: Physician Instructions: Consult to OT for:: Evaluation and Treat Consult to Physical Therapy Routine Comment: Physician Instructions: Consult to PT for:: Evaluation and Treat Discharge Diagnosis (1) Acute metabolic encephalopathy: (2) AMS (altered mental status): (3) ESRD (end stage renal disease) on dialysis: (4) Anemia in chronic kidney disease (CKD): (5) Acute cystitis: Final Diagnosis Final Discharge Diagnosis: As above Summary Hospital Course Hospital course: Patient is a 72-year-old female who was brought to the ER from [facility] for concern for stroke on 09/15/2023. She was reported as not acting right and staring . She is normally alert and oriented, very talkative and active. She had a stroke previously with residual left-sided weakness. Patient also has history of end-stage renal disease on hemodialysis, anemia of chronic kidney disease, hypertension, DM, secondary hyperparathyroidism, and coronary disease status post remote PCI. On evaluation in emergency room, patient was foundto be minimally responsive with slurred speech. Patient was difficult to arouse,however was responding by saying yes to sternal rub. In the emergency room her NIH stroke scale was [address] head and neck negative for critical stenosis. Noted to have 70% stenosis of proximal left internal carotid artery 50% on the right. ABG showed pH of 7.35 with pCO2 41.9 bicarb 22.4. Urine analysis history of cystitis and patient was given IV vancomycin in the emergency room. Ertapenemwas started given her cephalexin allergy and follow-up cultures obtained in the emergency room The patient was admitted to inpatient floor. Neurology was contacted by the hospitalist team and recommended to do EEG to rule out seizures. Stat EEG was negative for seizure activity and MRI brain also did not show any acute abnormality. Subcutaneous heparin was given for DVT prophylaxis. The patient wasalert and had significant improved mentation during dialysis the following day. She was verbal and able to answer questions. Daughter reports the patient seems back to her baseline. The patient has been eating and drinking without difficulty. Denies fever, chills, or SOB. Continued improvement today, she is moreawake and responsive today with no patient complaints at this time. Hemodynamically, patient is stable. Condition Condition at Discharge: Stable Status at Discharge Overall status at discharge: patient is back to baseline Time Spent with Patient Time spent providing/coordinating discharge services (# min): 35 Discharge Plan Discharge Plan Patient Disposition: long term acute care registered nurse NH Care/Resident Activity: No Activity Restriction Diet: Renal Additional Instructions: CUSTODIAL TO MANAGE: Monitor VS per protocol Monitor daily weights Monitor FSBS Monitor Neuro. assessment--Encephalopathy, Change in mental status Monitor assessment and for increased signs of infection--ESRD, Cystitis Continue Hemodialysis as scheduled Maintain high risk fall precautions Care to be managed by [facility] providers Prescriptions: New levofloxacin 250 mg tablet 250 mg PO Q48HR 3 Days Qty: 2 0RF Continued atorvastatin 20 mg tablet 20 mg PO QHS fexofenadine [Debbie Allergy] 60 mg Tablet 60 mg PO DAILY carvedilol 12.5 mg tablet 12.5 mg PO BID calcium carbonate [Calcium Antacid] 200 mg calcium (500 mg) Tablet,Chewable 400 mg PO TIDWM PRN (Reason: Heartburn) gabapentin 300 mg Tablet Extended Release 24 Hr 300 mg PO QHS sertraline 25 mg Tablet 25 mg PO DAILY omeprazole 20 mg Tablet,Delayed Release (Dr/Ec) 20 mg PO DAILY acetaminophen 325 mg Tablet 325 mg PO Q6H PRN (Reason: Pain) hydrocortisone 1 % Gel 1 applic TOPICAL DIRECTED bisacodyl 10 mg Suppository 10 mg VA DAILY PRN (Reason: Constipation) ondansetron 4 mg Tablet,Disintegrating 4 mg PO Q8H PRN (Reason: Nausea And Vomiting) guaifenesin [Mucinex] 600 mg Tablet Extended Release 12hr 600 mg PO Q12H PRN (Reason: Congestion) magnesium oxide 400 mg magnesium Tablet 400 mg PO DAILY glucagon HCl [Glucagon (HCl) Emergency Kit] 1 mg Recon Soln 1 mg IM DIRECTED Rx Instructions: inject 1 syringe intramuscularly as needed for blood sugar less than 50 furosemide 40 mg Tablet 80 mg PO DAILY Rx Instructions: sun, tue,lee, sat folic acid 1 mg Tablet 1 mg PO DAILY Aranesp (in polysorbate) 60 mcg/mL Solution 60 mcg IV-PUSH WE@1000 Qty: 0 0RF Patient Comments: UNSURE IF TAKING. ammonium lactate 12 % cream 1 applic topical BID PRN (Reason: rash) polyvinyl alcohol [Artificial Tears (polyvin alc)] 1.4 % drops 1 drp Eye-Both QID lidocaine HCl [Aspercreme (lidocaine HCl)] 4 % cream 1 applic topical DIRECTED Rx Instructions: M,W,F PRIOR TO DIALYSIS Biofreeze (menthol) 4 % gel 1 applic topical BID calcium carbonate [Hood-Gest Antacid] 200 mg calcium (500 mg) tablet,chewable 200 mg PO TID PRN (Reason: indigestion) dextrose [Glucose Gel] 40 % gel 10 g PO Q15M PRN (Reason: hypoglycemia) Rx Instructions: until symptoms of low blood sugar are controlled Humulin 70/30 U-100 KwikPen 100 unit/mL (70-30) insulin pen 40 unit subcut QAM Humulin 70/30 U-100 KwikPen 100 unit/mL (70-30) insulin pen 45 unit subcut QHS insulin lispro 100 unit/mL insulin pen 1 sliding scale dose SUBCUT ACHS midodrine 5 mg tablet 5 mg PO DIRECTED Rx Instructions: M,W,F Refresh Optive 1-0.9 % drops,gel 1 drp Eye-Both BID SPS (with sorbitol) 15-20 gram/60 mL suspension 120 ml PO DAILY PRN (Reason: hyperkalemia) Discontinued loperamide 2 mg Capsule 2 mg PO DIRECTED hydrocodone-acetaminophen 5-325 mg Tablet 1 tab PO Q8H PRN (Reason: Pain) 3 Days Qty: 9 0RF Exam Physical Exam Vital Signs: Temp Pulse Resp BP Pulse Ox O2 Del Method O2 Flow Rate 97.4 F L 78 16 148/75 H 99 Room Air 2 09/17/23 08:00 09/17/23 08:00 09/17/23 08:00 09/17/23 08:00 09/17/23 08:00 09/17/23 08:00 09/16/23 00:31 Narrative: Const: Alert and oriented HEENT: normal to inspection, no palpable skull fracture, normocephalic and atraumatic Eyes: EOMI intact. No nystagmus. Neck: normal visual inspection and full ROM Resp: normal respiratory effort; no rales, no rhonchi and no wheezes Cardio: regular rate, regular rhythm, S1 normal and S2 normal GI: soft, not firm, no guarding and nontender Neuro: Left hemiaplasia from previous stroke. No seizure activity noted. Sensation and strength intact in UE/LE b/l Extrem: no calf tenderness and edema Diagnostic Studies Completed and Pending Studies Pending studies at discharge: 09/15/23 12:23 Blood Culture Stat 09/18/23 05:00 Renal Function Panel [CHEM] IN AM 09/19/23 05:00 Renal Function Panel [CHEM] IN AM 09/20/23 05:00 Renal Function Panel [CHEM] IN AM Preliminary micro results at discharge 09/15/23 12:23 Blood Culture - Preliminary Blood - Left Forearm No Growth 1 Day 09/15/23 12:31 Blood Culture - Preliminary Blood - Left Arm No Growth 1 Day Labs on day of discharge: 09/17/23 08:08: PHA Creatinine Clear 8.72, Sodium 124 L* D, Potassium 4.1, Chloride 91 L, Carbon Dioxide 22.3, Anion Gap 14.8, BUN 48 H, Creatinine 6.67 H D, Est GFR (CKD-EPI) 6.102, Glucose 294 H, Calcium 8.3 L, Phosphorus 5.2 H, Albumin 3.4 L 09/17/23 06:31: POC Glucose 327 09/16/23 20:47: POC Glucose 368 09/16/23 16:17: POC Glucose 335 09/16/23 11:51: POC Glucose Comment Cleaned meter 09/16/23 11:51: POC Glucose 336, POC Glucose Comment Documented By: Emerald Conn MD 09/17/23 1112 Signed By: <Electronically signed by Emerald Conn MD> 09/17/23 1412 [facility] Work Phone: Evaluation noteNo assessment information available [facility] Work Phone: Evaluation noteNo InformationNort Sendbloom Other Evaluation note* Diagnosis Onset Date Resolution Status Anemia in chronic kidney disease (CKD) acute Anemia in chronic kidney disease (CKD) acute Atypical chest pain acute UTI (urinary tract infection) acute [facility] Work Phone: Evaluation note* Diagnosis Onset Date Resolution Status Anemia in chronic kidney disease (CKD) acute [facility] Work Phone: Evaluation note* Diagnosis Atherosclerosis of seneca coronary artery of seneca heart without angina pectoris- Primary Chest discomfort Other chest pain Essential hypertension, benign Mixed hyperlipidemia Dialysis patient (CMS/HCC) Renal dialysis status Cerebrovascular accident (CVA), unspecified mechanism ([facility]) documented in this encounter [facility] Work Phone: Evaluation note* Diagnosis Onset Date Resolution Status Anemia in chronic kidney disease (CKD) acute Anemia in chronic kidney disease (CKD) acute [facility] Work Phone: Evaluation note* Diagnosis Onset Date Resolution Status Anemia in chronic kidney disease (CKD) acute Anemia in chronic kidney disease (CKD) acute Acute cystitis acute Acute metabolic encephalopathy acute AMS (altered mental status) acute Anemia in chronic kidney disease (CKD) acute Benign hypertension with end-stage renal disease acute CVA (cerebral vascular accident) acute ESRD (end stage renal disease) on dialysis acute Secondary hyperparathyroidism acute Type 2 diabetes mellitus wit h diabetic chronic kidney disease acute UTI (urinary tract infection) acute [facility] Work Phone: History general Narrative - [...] PVD (PERIPHERAL VASCULAR DISEASE ) Medical History VA X2 Medical History CVA (CEREBRAL VASCULAR ACCIDENT) Surgical History Rt Knee Scope Surgical History Lt Knee Scope 1999 Surgical History Carpal Tunnel Surgical History Rt Hand - Tumor - benign Surgical History Tubal 1985 Surgical History Hyster 2004 Surgical History Heart Cath with Stents 09/2007 Surgical History FISTULA PLACEMENT IN RIGHT ARM 07/13/22 Hospitalization History see Surgery list Store Eyes Other History of Present illness Narrative* Patient is here for follow-up from recent hospitalization. She is accompanied by her daughter. Patient appears to be poor historian. Most of the information gathered from the daughter. I saw her during recent hospitalization for evaluation of atypical chest pain. Patient reported history of coronary artery disease prior intervention in [place]. Detail is lacking. She does have history [...] 1. Coronary artery disease prior intervention in [place] detail is lacking. Recent evaluation of atypical chest pain. Stress test and echocardiogram appears to be reassuring * 2. Chronic kidney disease on hemodialysis * 3. Hypertension controlled * 4. Hyperlipidemia on treatment * 5. Diabetes mellitus * 6. History of stroke with left-sided weakness and * 7. assisted resident * 8. Intermittent episode of hemodialysis [...] conservative management and the patient is DNR [facility] 250 DO Work Phone: Progress note Author Tex Kim [facility] July 31, 2022 11:05am Note Date/Time July 31, 2022 11:0 2am [facility] at [address] [address] Hem/Onc Follow Up Note - OP Signed Patient: Amparo Castorena MR#: [id number] : 1950 Acct:[id number] Age/Sex: 71 / F Type: REG RCR Copies to: MD Christopher Palafox MD~ Date of Service: 07/31/2022 Time of Service: 11:00 - Assessment & Plan (1) Anemia in chronic kidney disease (CKD) Plan: Anemia of chronic kidney disease CKD-IV on dialysis. Previously seen at [facility] and transferred care to [facility] as of 07/01/22 now on dialysis, gets epo agents through dialysis. Is awaiting fistula for dialysis, this will be done in [place] Previous anemia work-up completed prior to transfer [...] with a history of CVA, diabetes, PVD, VA x 2, cataracts, hyperlipidemia, HTN, GERD, and anemia of CKD. Surgical history includes hysterectomy, carpal tunnel surgery and bilateral arthroscopic knee surgery. She denies any personal or family history of cancer. She is referred by Dr. Sanchez Jean at [facility] to establish care for her anemia from CKD. She recently started Aranesp weekly and is in the process of getting dialysis fistula placed to start dialysis. Most recent labs reveal hgb 8.1, wbc 13.9, platelets 135,000, anc 10.8. Creatinine 4.9 with GFR 9, calcium 8.0. She is transferring care as she resides at [facility] in [place] and this is muchcloser for her and [...] for coordination of care (as documented) and [id number] counseling of patient and/or family. [facility] - Medical History Medical History: [...] calcium 500 mg-D3 400 unit-K 15 mcg-folic [id number] tablet 1 tab PO DAILY 03/28/21 [History [...] bisacodyl 10 mg rectal suppository 10 mg VA DAILY PRN Constipation 07/01/22 [History Confirmed 07/31/22] [...] by Tex Kim II, DO> 07/31/22 1105 [facility] Work Phone: Progress note Author Essence [facility] February 05, 2023 9:59am Note Date/Time February 05, 2023 9 :50am [facility] [place] [address] Hem/Onc Follow Up Note - OP Signed Patient: Amparo Castorena MR#: [id number] : 1950 Acct:[id number] Age/Sex: 72 / F Type: REG RCR Copies to: MD Christopher Palafox MD~ Date of Service: 02/05/2023 Time of Service: 09:49 - Assessment & Plan (1) Anemia in chronic kidney disease (CKD) Plan: Anemia of chronic kidney disease CKD-IV on dialysis. Previously seen at [facility] and transferred care to [facility] as of 07/01/22 now on dialysis, gets [...] with a history of CVA, diabetes, PVD, VA x 2, cataracts, hyperlipidemia, HTN, GERD, and anemia of CKD. Surgical history includes hysterectomy, carpal tunnel surgery and bilateral arthroscopic knee surgery. She denies any personal or family history of cancer. She is referred by Dr. Sanchez Jean at [facility] to establish care for her anemia from CKD. She recently started Aranesp weekly and is in the process of getting dialysis fistula placed to start dialysis. Most recent labs reveal hgb 8.1, wbc 13.9, platelets 135,000, anc 10.8. Creatinine 4.9 with GFR 9, calcium 8.0. She is transferring care as she resides at [facility] in [place] and this is muchcloser for her and [...] for coordination of care (as documented) and [id number] counseling of patient and/or family. [facility] - Medical History Medical History: [...] calcium 500 mg-D3 400 unit-K 15 mcg-folic [id number] tablet 1 tab PO DAILY 03/28/21 [History [...] bisacodyl 10 mg rectal suppository 10 mg VA DAILY PRN Constipation 07/01/22 [History Confirmed 02/05/23] [...] <Electronically signed by ELLA Alicea> 02/05/23 0959 [facility] Work Phone: Progress note Author Emerald Conn [facility] September 16, 2023 12:49pm Note Date/Time September 16, 2023 10:24 am [facility] [address] [place] [address] Hospitalist Progress Note Signed Patient: Amparo Castorena MR#: [id number] : 1950 Acct:[id number] Age/Sex: 72 / F Adm Date: 4 Loc: Room: [address] [place] [address] Type: ADM IN Attending Dr: Emerald Conn MD Copies to: ~ Date of Service: 09/16/2023 Subjective Subjective Narrative: Patient is a 72-year-old female who is brought from [facility] yesterday for not acting right and staring . She was seen at bedside with her daughter by her side today, awake and alert. She was talking and able to answer questions. Daughter reports the patient seems back to her baseline. Patient reports of right sided headache and lightheadedness. She had dialysis yesterday without anyissues and was alert at that time. Urine output is clear; UTI present. Her mentation is significant improved as compared to yesterday. MRI showed no acute intracranial pathology. CT of the brain and CT angiogram of the head and neck were completed and did not show any evidence of acute findings. There was noted stenosis and noted old stroke and evidence of probable previous shunt placement on the left but no acute findings. Patient does also have a history of end-stage renal disease on hemodialysis, anemia of chronic disease, hypertension, coronary disease and history of stenting thereof. Exam Physical Exam Vital Signs: Temp Pulse Resp BP Pulse Ox O2 Del Method O2 Flow Rate 97.8 F 76 16 115/82 96 Room Air 2 09/16/23 04:00 09/16/23 04:00 09/16/23 04:00 09/16/23 04:00 09/16/23 04:00 09/16/23 04:00 09/16/23 00:31 Narrative: Const: Alert and oriented HEENT Head: normal to inspection, no palpable skull fracture, normocephalic and atraumatic Eyes EOMI intact but with limited superior and inferior movement. No nystagmus. Neck Neck: normal visual inspection and full ROM Resp Effort & Inspection: normal respiratory effort Auscultation: no rales, no rhonchi and no wheezes Cardio Rate: regular rate Rhythm: regular rhythm Heart Sounds: S1 normal and S2 normal GI Palpation: soft, not firm, no guarding and nontender Neuro Left hemiaplasia from previous stroke. No seizure activity noted. Sensation and strength intact in UE/LE b/l Extrem General: no calf tenderness and edema Objective Lab Results 09/16/23 09:46 09/16/23 09:46 Meds Allergies and Active Meds Allergies cephalexin [From Keflex] Allergy (Unknown, Verified 09/15/23 09:36) Unknown Reaction, reddened pruritic rash diclofenac [From Arthrotec] Allergy (Unknown, Verified 09/15/23 09:36) Swelling misoprostol [From Arthrotec] Allergy (Unknown, Verified 09/15/23 09:36) Swelling Active Meds: Active Medications Generic Name Dose Route Start Last Admin Trade Name Freq PRN Reason Stop Dose Admin Darbepoetin Chris 40 mcg 09/15/23 14:00 09/15/23 14:45 Darbepoetin Chris In Polysorbat 40 Mcg/Ml Vial IV-PUSH 09/14/24 13:59 40 mcg WE MARIA VICTORIA Administration Protocol Dextrose 0 gm 09/15/23 15:39 Dextrose 50% In Water 25 Gm/50 Ml Syringe IV-PUSH 09/14/24 15:38 PRN PRN Hypoglycemia Glucose 0 gm 09/15/23 15:39 Dextrose 40% Gel 15 Gm Tube PO 09/14/24 15:38 PRN PRN Hypoglycemia Heparin Sodium (Porcine) 3,000 unit 09/15/23 13:44 09/15/23 14:44 Heparin 10,000 Unit/10 Ml Vial IV 09/14/24 13:43 3,000 unit PRN PRN Administration Dialysis Heparin Sodium (Porcine) 1,500 unit 09/15/23 13:44 09/15/23 14:45 Heparin 10,000 Unit/10 Ml Vial IV 09/14/24 13:43 1,500 unit PRN PRN Administration Dialysis Heparin Sodium (Porcine) 5,000 unit 09/15/23 22:00 09/16/23 05:13 Heparin 5,000 Unit/Ml Vial SUBCUT 09/14/24 21:59 5,000 unit Q8HR AMRIA VICTORIA Administration Sodium Chloride 1,000 mls @ 0 mls/hr 09/15/23 13:43 09/15/23 14:55 0.9% Sodium Chloride 1,000 Ml MISCELLANE 09/14/24 13:42 Infused .Q0M PRN Infusion Dialysis As Directed Ertapenem 0.5 gm/ Sodium 100 mls @ 200 mls/hr 09/15/23 16:15 09/15/23 20:28 Chloride IV 09/14/24 16:14 200 mls/hr Q24H MARIA VICTORIA Administration Insulin Aspart 0 units 09/15/23 17:00 09/16/23 07:51 Insulin Aspart 300 Units/3 Ml Insuln.Pen SUBCUT 09/14/24 16:59 2 units TID.WM.HS MARIA VICTORIA Administration Protocol Midodrine 5 mg 09/15/23 13:46 09/15/23 15:35 Midodrine 5 Mg Tablet PO 09/14/24 13:45 5 mg PRN PRN Administration Dialysis Sodium Chloride 0 ml 09/15/23 09:30 09/15/23 20:29 Sodium Chloride 0.9 % 10 Ml Syringe IV-PUSH 09/14/24 09:29 10 ml PRN PRN Administration Flush Sodium Chloride 0 ml 09/15/23 13:43 09/15/23 14:46 Sodium Chloride 0.9 % 10 Ml Syringe IV-PUSH 09/14/24 13:42 10 ml PRN PRN Administration Flush A&P - Hospitalist Assessment/Plan (1) Acute metabolic encephalopathy: (2) ESRD (end stage renal disease) on dialysis: (3) Anemia in chronic kidney disease (CKD): (4) Acute cystitis: (5) Type 2 diabetes mellitus with diabetic chronic kidney disease: (6) CVA (cerebral vascular accident): Plan Her mentation is significant progress she is more awake and responsive today. Suspecting symptoms likely acute metabolic encephalopathy due to acute cystitis. Patient had neurology and nephrology consultation. Stat EEG was negative for seizure activity. MRI brain also did not show any acute abnormality. Given improved mentation will resume her [facility] insulin regimen. Pending blood and urine cultures. Continue ertapenem until final culture results are back. She did go undergo hemodialysis yesterday and developed hypotension which has resolved after receiving midodrine. Will consult PT/OT. Subcutaneous heparin for DVT prophylaxis. Documented By: Emerald Conn MD 09/16/23 0915 Signed By: <Electronically signed by Emerald Conn MD> 09/16/23 1249 [facility] Work Phone: Progress note Author Essie Salas [facility] September 16, 2023 10:33am Note Date/Time September 16, 2023 10:28 am [facility] [address] [place] [address] Nephrology Progress Note Signed Patient: Amparo Castorena MR#: [id number] : 1950 Acct:[id number] Age/Sex: 72 / F Adm Date: 4 Loc: Room: 7T2461-9 Type: ADM IN Attending Dr: Emerald Conn MD Copies to: ~ Date of Service: 09/16/2023 Subjective Subjective Narrative: This is a 72-year-old female well-known to me from outpatient dialysis unit was brought into the emergency room from [facility] due to the acute change in mental status. On evaluation in emergency room patient was still found to be minimally responsive with slurred speech. She had a CAT scan of the brain and done in emergency room which showed no acute finding. She had a CTA which showed no acute blockage. She was found to have abnormal UA and was given empiric antibiotic for possible UTI. Neurology was contacted by the hospitalistteam and recommended to do EEG to rule out seizures. 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 She currently goes to the [place] dialysis unit 3 times a week on MWF schedule and has AV fistula as a dialysis access. Patient is due for dialysis today nephrology is consulted for ESRD management. Her other comorbidities are CVA with left-sided residual weakness, DM, HTN, CAD s/p multiple PCI, dyslipidemia, anemia of renal disease and secondary hyperparathyroidism. INTERIM HISTORY Patient was seen examined bedside. She is now back to her baseline denies any chest pain palpation cough nausea Moiduddin shortness of breath. Her daughter was also present at the bedside. Exam Physical Exam Vital Signs: Temp Pulse Resp BP Pulse Ox O2 Del Method O2 Flow Rate 97.8 F 76 16 115/82 96 Room Air 2 09/16/23 04:00 09/16/23 04:00 09/16/23 04:00 09/16/23 04:00 09/16/23 04:00 09/16/23 04:00 09/16/23 00:31 Narrative: General: Appears comfortable and not in distress Heart: S1-S2, no rub Lung: Bilateral air entry, no wheezing or crackles Abdomen: Soft, positive bowel sounds Extremities: No edema, no cyanosis Head: Atraumatic, normocephalic Ear: No gross hearing Deficit or external ear redness Eyes: No pallor or redness Neck: No JVD or visible mass Skin: No rashes , warm to touch BENEFITS SPECIALIST RECRUITER: Awake,Alert, following simple command Musculoskeletal: No swelling or limitation of movement of the large joints Psychiatric: Cooperative, normal mood and affect Objective Intake and Output I&O: Intake & Output 09/13/23 09/14/23 09/15/23 09/16/23 23:59 23:59 23:59 23:59 Intake Total 1500 / 1500 Output Total 4151 / 4151 125 / 125 Balance -2651 / -2651 -125 / -125 Weight 101 kg 102.9 kg Meds and Allergies Meds: Active Medications Darbepoetin Chris (Darbepoetin Chris In Polysorbat 40 Mcg/Ml Vial) 40 mcg IV- PUSHWE [facility]; Protocol Stop: 09/14/24 13:59 Last Admin: 09/15/23 14:45 Dose: 40 mcg Dextrose (Dextrose 50% In Water 25 Gm/50 Ml Syringe) 0 gm IV-PUSH PRN PRN PRN Reason: Hypoglycemia Stop: 09/14/24 15:38 Glucose (Dextrose 40% Gel 15 Gm Tube) 0 gm PO PRN PRN PRN Reason: Hypoglycemia Stop: 09/14/24 15:38 Heparin Sodium (Porcine) (Heparin 10,000 Unit/10 Ml Vial) 3,000 unit IV PRN PRN PRN Reason: Dialysis Stop: 09/14/24 13:43 Last Admin: 09/15/23 14:44 Dose: 3,000 unit Heparin Sodium (Porcine) (Heparin 10,000 Unit/10 Ml Vial) 1,500 unit IV PRN PRN PRN Reason: Dialysis Stop: 09/14/24 13:43 Last Admin: 09/15/23 14:45 Dose: 1,500 unit Heparin Sodium (Porcine) (Heparin 5,000 Unit/Ml Vial) 5,000 unit SUBCUT Q8HR [facility] Stop: 09/14/24 21:59 Last Admin: 09/16/23 05:13 Dose: 5,000 unit Sodium Chloride (0.9% Sodium Chloride 1,000 Ml) 1,000 mls @ 0 mls/hr MISCELLANE.Q0M PRN PRN Reason: Dialysis Stop: 09/14/24 13:42 Last Infusion: 09/15/23 14:55 Dose: Infused Ertapenem 0.5 gm/ Sodium (Chloride) 100 mls @ 200 mls/hr IV Q24H MARIA VICTORIA Stop: 09/14/24 16:14 Last Admin: 09/15/23 20:28 Dose: 200 mls/hr Insulin Aspart (Insulin Aspart 300 Units/3 Ml Insuln.Pen) 0 units SUBCUT TID.WM.HS [facility]; Protocol Stop: 09/14/24 16:59 Last Admin: 09/16/23 07:51 Dose: 2 units Midodrine (Midodrine 5 Mg Tablet) 5 mg PO PRN PRN PRN Reason: Dialysis Stop: 09/14/24 13:45 Last Admin: 09/15/23 15:35 Dose: 5 mg Sodium Chloride (Sodium Chloride 0.9 % 10 Ml Syringe) 0 ml IV-PUSH PRN PRN PRN Reason: Flush Stop: 09/14/24 09:29 Last Admin: 09/15/23 20:29 Dose: 10 ml Sodium Chloride (Sodium Chloride 0.9 % 10 Ml Syringe) 0 ml IV-PUSH PRN PRN PRN Reason: Flush Stop: 09/14/24 13:42 Last Admin: 09/15/23 14:46 Dose: 10 ml Allergies cephalexin [From Keflex] Allergy (Unknown, Verified 09/15/23 09:36) Unknown Reaction, reddened pruritic rash diclofenac [From Arthrotec] Allergy (Unknown, Verified 09/15/23 09:36) Swelling misoprostol [From Arthrotec] Allergy (Unknown, Verified 09/15/23 09:36) Swelling Results - Nephrology Labs 09/16/23 09:46 09/16/23 09:46 Labs: 09/15/23 09/16/23 10:10 06:52 BUN 33 H Creatinine 5.60 H D Urine RBC 5-9 H Urine WBC Innumerable H Urine Bacteria 4+ H Radiology Impressions Impressions - last 24 hours: Impressions Chest X-Ray 09/15/23 09:34 IMPRESSION: Perihilar vascular prominence is noted suggesting volume overload or congestive heart failure. Impression dictated by: Mario Eaton M.D.09/15/2023 10:52 AM Dictation Location: [facility]12 Head CTA 09/15/23 09:35 IMPRESSION: Calcified plaque is noted in the carotid bifurcations. There is motion artifact at the right carotid bifurcation partially obscuring assessment of stenosis. This appears to measure approximately 50% on the right. There is approximately 70% stenosis of the proximal left internal carotid artery. There is no dissection, aneurysm dilatation, or occlusion. Impression dictated by: Mario Eaton M.D.09/15/2023 10:25 AM Dictation Location: [facility] Brain MRI 09/15/23 14:55 IMPRESSION: No acute intracranial pathology. There is a remote infarct on the right similar to the prior exam. Gliosis and encephalomalacia is noted in the anterior left frontal lobe which may be related to a previous pressure monitor or ventricular shunt tract. Impression dictated by: Mario Eaton M.D.09/16/2023 9:02 AM Dictation Location: [place] [address] Any impression(s) listed above is documentation that was entered by the reading physician into a diagnostic report(s) for Amparo Castorena. I have reviewed the report(s) and am incorporating any findings in the treatment plan of this patient where applicable. A&P - Nephrology Assessment/Plan (1) AMS (altered mental status): Assessment/Problem Details: She has a change in mental status likely due to the UTI or due to the seizure. She had a CAT scan and MRI of the brain which showed no acute infarct. Neurologyhas been following the patient. (2) ESRD (end stage renal disease) on dialysis: Assessment/Problem Details: She has a ESRD due to the diabetic nephropathy and hypertensive nephrosclerosis. Currently goes to the dialysis times a week on an MWF schedule. She has AV fistula as a dialysis access. (3) Anemia in chronic kidney disease (CKD): Assessment/Problem Details: She has anemia due to the ESRD currently receives Aranesp with hemodialysis. (4) Secondary hyperparathyroidism: Assessment/Problem Details: She has a secondary hyperparathyroidism currently receives IV Zemplar with dialysis. (5) Type 2 diabetes mellitus with diabetic chronic kidney disease: Assessment/Problem Details: She has insulin-dependent type 2 diabetes mellitus currently using insulin NPH. (6) Benign hypertension with end-stage renal disease: Assessment/Problem Details: Her blood pressure is controlled. She currently takes carvedilol. Plan * No need for dialysis today. Next dialysis will be tomorrow as per schedule. * Continue home dose of carvedilol. Will give her midodrine for intradialytic hypotension. * Will give Aranesp 40 mcg once weekly with dialysis * Will give Zemplar 5 mcg with dialysis as per outpatient schedule. * Continue IV antibiotics for possible UTI and adjust as needed based on culture sensitivity. Pharmacy to dose medication. * Continue workup for change in mental status as per the neurology * Continue DM management as per the primary hospitalist team. * Check CBC and renal function daily Documented By: Essie Salas MD 09/16/23 1026 Signed By: <Electronically signed by Essie Salas MD> 09/16/23 1033 [facility] Work Phone: Progress note Author Rodger Tomas [facility] September 16, 2023 3:31pm Note Date/Time September 16, 2023 1:54p m [facility] [address] [place], [place] [id number] Neurology Progress Note Signed Patient: Amparo Castorena MR#: [id number] : 1950 Acct:[id number] Age/Sex: 72 / F Adm Date: 4 Loc: 3T Room: [address] [place] [address] Type: ADM IN Attending Dr: Emerald Conn MD Copies to: ~ Date of Service: 09/16/2023 Subjective Subjective Narrative: Patient's mental status was noted to be substantially improved yesterday as compared to today. Patient is continuing with ongoing treatment of infection and did get dialysis yesterday. No acute events overnight. No seizure-like activity reported overnight. Review of Systems Review of Systems Unobtainable due to mental status and Unobtainable due to mental condition Exam Physical Exam Vital Signs: Temp Pulse Resp BP Pulse Ox O2 Del Method O2 Flow Rate 97.8 F 75 16 151/73 H 100 Room Air 2 09/16/23 12:00 09/16/23 12:00 09/16/23 12:00 09/16/23 12:00 09/16/23 12:00 09/16/23 12:00 09/16/23 00:31 Narrative: Patient was awake and alert Patient was nonverbal Patient did shake her head yes and no which seem to be quite reasonable and accurate but had difficulty following multistep commands Patient was able to move her right upper extremity and right lower extremity in a 1-2/5 manner Patient was unable to move the left side Reflexes appear brisk Coordination and sensation and gait were not tested Objective Vital Signs Vital Signs: Vital Signs - 24 hr 09/15/23 14:03 09/15/23 14:13 09/15/23 14:30 Temperature 97.4 F L Pulse Rate Pulse Rate [Monitor] 65 65 67 Respiratory Rate 18 Blood Pressure Blood Pressure [Left Arm] 168/93 H 168/93 H 161/85 H 02 Sat by Pulse Oximetry 100 Oxygen Delivery Method Nasal Cannula Oxygen Flow Rate 2 09/15/23 15:00 09/15/23 15:34 09/15/23 16:00 Temperature Pulse Rate Pulse Rate [Monitor] 71 52 L 72 Respiratory Rate Blood Pressure Blood Pressure [Left Arm] 134/77 87/42 L 130/68 02 Sat by Pulse Oximetry Oxygen Delivery Method Oxygen Flow Rate 09/15/23 16:31 09/15/23 16:45 09/15/23 17:00 Temperature Pulse Rate Pulse Rate [Monitor] 60 61 Respiratory Rate Blood Pressure Blood Pressure [Left Arm] 96/54 L 84/50 L 02 Sat by Pulse Oximetry 98 Oxygen Delivery Method Nasal Cannula Oxygen Flow Rate 2 09/15/23 17:30 09/15/23 18:00 09/15/23 18:20 Temperature Pulse Rate Pulse Rate [Monitor] 60 71 72 Respiratory Rate Blood Pressure Blood Pressure [Left Arm] 82/46 L 111/68 88/46 L 02 Sat by Pulse Oximetry Oxygen Delivery Method Oxygen Flow Rate 09/15/23 18:45 09/15/23 20:00 09/15/23 20:00 Temperature 97.9 F 97.9 F Pulse Rate 77 Pulse Rate [Monitor] 76 Respiratory Rate 18 18 Blood Pressure 171/84 H Blood Pressure [Left Arm] 94/50 L 02 Sat by Pulse Oximetry 100 100 Oxygen Delivery Method Nasal Cannula Nasal Cannula Nasal Cannula Oxygen Flow Rate 2 2 2 09/15/23 20:10 09/15/23 23:22 09/16/23 00:31 Temperature 97.9 F Pulse Rate 78 Pulse Rate [Monitor] 77 Respiratory Rate 18 17 Blood Pressure 93/43 L Blood Pressure [Left Arm] 171/84 H 02 Sat by Pulse Oximetry 100 99 Oxygen Delivery Method Nasal Cannula Nasal Cannula Nasal Cannula Oxygen Flow Rate 2 2 2 09/16/23 01:30 09/16/23 04:00 09/16/23 04:00 Temperature 97.8 F Pulse Rate 76 Pulse Rate [Monitor] Respiratory Rate 16 Blood Pressure 153/82 H 115/82 Blood Pressure [Left Arm] 02 Sat by Pulse Oximetry 96 Oxygen Delivery Method Room Air Room Air Oxygen Flow Rate 09/16/23 08:00 09/16/23 12:00 Temperature 97.8 F 97.8 F Pulse Rate 79 75 Pulse Rate [Monitor] Respiratory Rate 16 16 Blood Pressure 169/94 H 151/73 H Blood Pressure [Left Arm] 02 Sat by Pulse Oximetry 99 100 Oxygen Delivery Method Room Air Room Air Oxygen Flow Rate Labs 09/16/23 09:46 09/16/23 09:46 Assessment/Plan (1) Acute metabolic encephalopathy: (2) AMS (altered mental status): Qualifiers: Altered mental status type: delirium Qualified Code(s): R41.0 - Disorientation, unspecified (3) ESRD (end stage renal disease) on dialysis: (4) Anemia in chronic kidney disease (CKD): Qualifiers: Chronic kidney disease stage: on chronic dialysis Qualified Code(s): N18.6 - End stage renal disease; D63.1 - Anemia in chronic kidney disease; Z99.2 - Dependence on renal dialysis (5) Acute cystitis: Qualifiers: Hematuria presence: without hematuria Qualified Code(s): N30.00 - Acutecystitis without hematuria Plan It is my impression that the patient has altered mental status. The patient hasa history of chronic hemiparesis from previous stroke and also history of craniotomy. Patient was found to have an urinary tract infection in the emergency department and is being treated with IV antibiotics. Patient is also due for dialysis and is supposed to be getting dialysis today. Patient was somewhat hypotensive during dialysis and I wonder if the fluctuations in blood pressure are the culprit for her mental status changes along with infection in the urine. Workup: CT of the brain without contrast: Evidence of an old right cerebral infarct and old left shunt placement and craniotomy CT angiogram of the head and neck: 50% stenosis of the right and 70% stenosis ofthe left internal carotid arteries. No evidence of dissection, aneurysm or occlusion MRI of the brain without contrast: No acute intracranial pathology. There is a remote infarct on the right similar to the prior exam. Gliosis and encephalomalacia is noted in the anterior left frontal lobe which may be relatedto a previous pressure monitor or ventricular shunt tract. UA: Positive for 4+ leukocyte Estrace and innumerable white blood cells CBC again identifies anemia Basic metabolic panel identifies mild hyponatremia with a sodium of 134 as well as a substantially elevated creatinine at 7.69 and a substantially elevated blood urea nitrogen at 54 Chest x-ray is suggestive of heart failure without evidence of consolidation ammonia: Within normal limits TSH: normal Vitamin B12: 298- normal Plan: I suggest very careful monitoring of the patient as she apparently has a historyof recurrent infections and she was quite hypotensive requiring midodrine duringdialysis today. I suggest continuation of treatment of infection per the primary service for theabnormal urinalysis Supportive care. Neurology will sign off. Please call with any questions or concerns. Thank you for consultation. Documented By: Rodger Tomas DO 4 [id number] Signed By: <Electronically signed by Rodger Tomas, > 09/16/23 1531 [facility] Work Phone: Progress note Author Essie Salas [facility] September 17, 2023 11:54am Note Date/Time September 17, 2023 11:54 am [facility] [address] [place] [address] Nephrology Progress Note Signed Patient: Amparo Castorena MR#: [id number] : 1950 Acct:[id number] Age/Sex: 72 / F Adm Date: 4 Loc: Room: [address] [place] [address] Type: ADM IN Attending Dr: Emerald Conn MD Copies to: ~ Date of Service: 09/17/2023 Subjective Subjective Narrative: This is a 72-year-old female well-known to me from outpatient dialysis unit was brought into the emergency room from [facility] due to the acute change in mental status. On evaluation in emergency room patient was still found to be minimally responsive with slurred speech. She had a CAT scan of the brain and done in emergency room which showed no acute finding. She had a CTA which showed no acute blockage. She was found to have abnormal UA and was given empiric antibiotic for possible UTI. Neurology was contacted by the hospitalistteam and recommended to do EEG to rule out seizures. 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 She currently goes to the [place] dialysis unit 3 times a week on MWF schedule and has AV fistula as a dialysis access. Patient is due for dialysis today nephrology is consulted for ESRD management. Her other comorbidities are CVA with left-sided residual weakness, DM, HTN, CAD s/p multiple PCI, dyslipidemia, anemia of renal disease and secondary hyperparathyroidism. INTERIM HISTORY Patient was seen examined bedside during hemodialysis. She denies any chest pain palpation cough nausea or diarrhea and shortness of breath Exam Physical Exam Vital Signs: Temp Pulse Resp BP Pulse Ox O2 Del Method O2 Flow Rate 97.9 F 72 18 154/78 H 95 Room Air 2 09/17/23 10:41 09/17/23 10:51 09/17/23 10:41 09/17/23 10:51 09/17/23 10:41 09/17/23 10:41 09/16/23 00:31 Narrative: General: Appears comfortable and not in distress Heart: S1-S2, no rub Lung: Bilateral air entry, no wheezing or crackles Abdomen: Soft, positive bowel sounds Extremities: trace edema, no cyanosis Head: Atraumatic, normocephalic Ear: No gross hearing Deficit or external ear redness Eyes: No pallor or redness Neck: No JVD or visible mass Skin: No rashes , warm to touch BENEFITS SPECIALIST RECRUITER: Awake,Alert, following simple command Musculoskeletal: No swelling or limitation of movement of the large joints Psychiatric: Cooperative, normal mood and affect Objective Intake and Output I&O: Intake & Output 09/14/23 09/15/23 09/16/23 09/17/23 23:59 23:59 23:59 23:59 Intake Total 1600 / 1600 600 / 600 1100 / 1100 Output Total 4151 / 4151 225 / 225 Balance -2551 / -2551 375 / 375 1100 / 1100 Weight 101 kg 102.9 kg 101.8 kg Meds and Allergies Meds: Active Medications Atorvastatin Calcium (Atorvastatin 20 Mg Tablet) 20 mg PO QHS [facility] Stop: 09/15/24 21:59 Last Admin: 09/16/23 21:17 Dose: Not Given Darbepoetin Chris (Darbepoetin Chris In Polysorbat 40 Mcg/Ml Vial) 40 mcg IV- PUSHWE [facility]; Protocol Stop: 09/14/24 13:59 Last Admin: 09/15/23 14:45 Dose: 40 mcg Dextrose (Dextrose 50% In Water 25 Gm/50 Ml Syringe) 0 gm IV-PUSH PRN PRN PRN Reason: Hypoglycemia Stop: 09/14/24 15:38 Glucose (Dextrose 40% Gel 15 Gm Tube) 0 gm PO PRN PRN PRN Reason: Hypoglycemia Stop: 09/14/24 15:38 Heparin Sodium (Porcine) (Heparin 10,000 Unit/10 Ml Vial) 3,000 unit IV PRN PRN PRN Reason: Dialysis Stop: 09/14/24 13:43 Last Admin: 09/17/23 11:31 Dose: 3,000 unit Heparin Sodium (Porcine) (Heparin 10,000 Unit/10 Ml Vial) 1,500 unit IV PRN PRN PRN Reason: Dialysis Stop: 09/14/24 13:43 Last Admin: 09/17/23 11:31 Dose: 1,500 unit Heparin Sodium (Porcine) (Heparin 5,000 Unit/Ml Vial) 5,000 unit SUBCUT Q8HR [facility] Stop: 09/14/24 21:59 Last Admin: 09/17/23 06:09 Dose: Not Given Sodium Chloride (0.9% Sodium Chloride 1,000 Ml) 1,000 mls @ 0 mls/hr MISCELLANE.Q0M PRN PRN Reason: Dialysis Stop: 09/14/24 13:42 Last Infusion: 09/17/23 11:33 Dose: Infused Ertapenem 0.5 gm/ Sodium (Chloride) 100 mls @ 200 mls/hr IV Q24H [facility] Stop: 09/14/24 16:14 Last Admin: 09/16/23 19:48 Dose: 200 mls/hr Insulin Aspart (Insulin Aspart 300 Units/3 Ml Insuln.Pen) 0 units SUBCUT TID.WM.HS [facility]; Protocol Stop: 09/14/24 16:59 Last Admin: 09/17/23 09:15 Dose: 4 units Insulin Aspart Prota 70%/Aspart 30% (Insulin Aspart Protamin/Aspart 300 Units/3 Ml Insuln.Pen) 30 units SUBCUT QAM [facility] Stop: 09/16/24 08:59 Last Admin: 09/17/23 09:15 Dose: 30 units Insulin Aspart Prota 70%/Aspart 30% (Insulin Aspart Protamin/Aspart 300 Units/3 Ml Insuln.Pen) 35 units SUBCUT QHS [facility] Stop: 09/15/24 21:59 Last Admin: 09/16/23 20:59 Dose: 35 units Midodrine (Midodrine 5 Mg Tablet) 5 mg PO PRN PRN PRN Reason: Dialysis Stop: 09/14/24 13:45 Last Admin: 09/15/23 15:35 Dose: 5 mg Ondansetron HCl (Ondansetron Odt 4 Mg Tab.Rapdis) 4 mg PO MOWEFR PRN PRN Reason: Nausea And Vomiting Stop: 09/16/24 11:29 Pantoprazole Sodium (Pantoprazole 40 Mg Tablet.Dr) 40 mg PO DAILY [facility] Stop: 09/16/24 08:59 Last Admin: 09/17/23 09:15 Dose: 40 mg Paricalcitol (Paricalcitol 10 Mcg/2 Ml Vial) 5 mcg IV-PUSH MOWEFR PRN PRN Reason: Dialysis Stop: 09/16/24 11:27 Last Admin: 09/17/23 11:37 Dose: 5 mcg Sertraline HCl (Sertraline 25 Mg Tablet) 25 mg PO DAILY [facility] VICTORIA Stop: 09/16/24 08:59 Last Admin: 09/17/23 09:15 Dose: 25 mg Sodium Chloride (Sodium Chloride 0.9 % 10 Ml Syringe) 0 ml IV-PUSH PRN PRN PRN Reason: Flush Stop: 09/14/24 09:29 Last Admin: 09/16/23 19:48 Dose: 10 ml Sodium Chloride (Sodium Chloride 0.9 % 10 Ml Syringe) 0 ml IV-PUSH PRN PRN PRN Reason: Flush Stop: 09/14/24 13:42 Last Admin: 09/17/23 11:31 Dose: 10 ml Allergies cephalexin [From Keflex] Allergy (Unknown, Verified 09/15/23 09:36) Unknown Reaction, reddened pruritic rash diclofenac [From Arthrotec] Allergy (Unknown, Verified 09/15/23 09:36) Swelling misoprostol [From Arthrotec] Allergy (Unknown, Verified 09/15/23 09:36) Swelling Results - Nephrology Labs 09/16/23 09:46 09/17/23 08:08 Labs: 09/17/23 08:08 BUN 48 H Creatinine 6.67 H D Phosphorus 5.2 H Albumin 3.4 L Radiology Impressions Impressions - last 24 hours: Any impression(s) listed above is documentation that was entered by the reading physician into a diagnostic report(s) for Amparo Castorena. I have reviewed the report(s) and am incorporating any findings in the treatment plan of this patient where applicable. A&P - Nephrology Assessment/Plan (1) AMS (altered mental status): Assessment/Problem Details: She has a change in mental status likely due to the UTI or due to the seizure. She had a CAT scan and MRI of the brain which showed no acute infarct. Neurologyhas been following the patient. (2) ESRD (end stage renal disease) on dialysis: Assessment/Problem Details: She has a ESRD due to the diabetic nephropathy and hypertensive nephrosclerosis. Currently goes to the dialysis times a week on an MWF schedule. She has AV fistula as a dialysis access. (3) Anemia in chronic kidney disease (CKD): Assessment/Problem Details: She has anemia due to the ESRD currently receives Aranesp with hemodialysis. (4) Secondary hyperparathyroidism: Assessment/Problem Details: She has a secondary hyperparathyroidism currently receives IV Zemplar with dialysis. (5) Type 2 diabetes mellitus with diabetic chronic kidney disease: Assessment/Problem Details: She has insulin-dependent type 2 diabetes mellitus currently using insulin NPH. (6) Benign hypertension with end-stage renal disease: Assessment/Problem Details: Her blood pressure is controlled. She currently takes carvedilol. Plan * Hemodialysis today as ordered. Will do ultrafiltration as tolerated. * She has hyponatremia likely due to the hypervolemia. * Continue home dose of carvedilol. Will give her midodrine for intradialytic hypotension. * Will give Aranesp 40 mcg once weekly with dialysis * Will give Zemplar 5 mcg with dialysis as per outpatient schedule. * Continue IV antibiotics for possible UTI and adjust as needed based on culture sensitivity. Pharmacy to dose medication. * Continue workup for change in mental status as per the neurology * Continue DM management as per the primary hospitalist team. 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 Chest discomfort Procedures Follow Up In Cardiology Danii Rodriguez MD [address], [address] [address] Danii Rodriguez MD [address], [facility] [address] [place] [address] Referral ID Status Reason Start Date Expiration Date V isits Requested Visits Authorized [id number] Authorized 03/23/2023 03/22/2024 1 1 [facility] Work Phone: Summary Purpose Family History No Family History Records Found Relationship Condition Age at Onset Recorded Date/T jena Not Specified Hypertension Unknown Diabetes mellitus Unknown father Diabetes mellitus Unknown brother Coronary artery disease Unknown Unknown Family Member Name Dates Details Family history of diabetes m ellitus: Father, Brother(V18.0, Z83.3) Status:Active Family history of cerebrovas cular accident (CVA): Mother(V17.1, Z82.3) Status:Active Relationship Condition Age at Onset Recorded Date/T jena Not Specified Hypertension Unknown Diabetes mellitus Unknown father Diabetes mellitus Unknown brother Coronary artery disease Unknown brother Diabetes mellitus Unknown Hypertension Unknown father Unknown Malignant neoplasm Unknown Heart disease Unknown History of stroke Unknown Unknown Advance Directives No Advanced Directives Records Found [...] chronic ki dney disease (CKD) Chief Complaint Anemia Reason for Visit Anemia in chronic ki dney disease (CKD) Anemia in chronic kidney disease (CKD) Chief Complaint Anemia Altered / Change Mental Status Altered / Change Mental Status Reason for Visit Anemia in chronic ki dney disease (CKD) Anemia in chronic kidney disease (CKD) Acute cystitis Acute metabolic encephalopathy AMS (altered mental status) Anemia in chronic kidney disease (CKD) Benign hypertension with end-stage renal disease CVA (cerebral vascular accident) ESRD (end stage renal disease) on dialysis Secondary hyperparathyroidism Type 2 diabetes mellitus with diabetic chronic kidney disease UTI (urinary tract infection) Chief Complaint ESSENCE CSATORENA is being seen for follow-up of a hospitalization for. Additional Source Comments INFORMATION SOURCE (unrecogn ized section and content) DATE CREATED AUTHOR 01/06/2019 [facility] DATE CREATED AUTHOR AUTHOR'S ORGANIZ ATION 06/15/2022 [facility] DATE CREATED AUTHOR AUTHOR'S ORGANIZ ATION 08/26/2022 [facility] DATE CREATED AUTHOR AUTHOR'S ORGANIZ ATION 09/07/2022 [facility] DATE CREATED AUTHOR AUTHOR'S ORGANIZ ATION 11/12/2022 [facility] DATE CREATED AUTHOR AUTHOR'S ORGANIZ ATION 03/18/2023 [facility] DATE CREATED AUTHOR AUTHOR'S ORGANIZ ATION 03/25/2023 [facility] DATE CREATED AUTHOR AUTHOR'S ORGANIZ ATION 10/02/2023 [facility] Care Teams (unrecognized sec tion and content) Team Status: Active Member Role Status Dates Christopher Mann MD Primary Care Provider Active Team Status: Active Member Role Status Dates Christopher Mann MD Primary Care Provider Active Essence Alicea APRN Attending Provider Acti kali Jean MD Referring Provider Active Team Status: Active Member Role Status Dates ANGELES FrancoC Emergency Provider Active Christopher Mann MD Primary Care Provider Active Camila Young MD Admit Provider, Attending Provider Active 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 Teacher Relationship Specialty Start Date End Date Christopher Mann MD [address] [place] [phone] PCP - General 11/11/22 Team Status: Active Member Role Status Rich Mann MD Primary Care Provider Active S tart: June 19, 2023 Aiden Lawson MD Attending Provider Active Star t: June 19, 2023 Team Status: Active Member Role Status Rich Mann MD Primary Care Provider Active S tart: July 18, 2023 Kerrie Camilo MD Attending Provider Active Star t: July 18, 2023 Team Status: Active Member Role Status Dates Christopher Mann MD Primary Care Provider Active S tart: August 18, 2023 Jaimee Demboske , ADDRESSOGRAPH OPERATOR Attending Provider Acti ve Start: August 18, 2023 Sanchez Jean MD Referring Provider Active Start : August 18, 2023 Team Status: Inactive Member Role Status Dates Christopher Mann MD Primary Care Provider Active S tart: August 18, 2023 End: August 18, 2023 Essence Mata ELLA Alicea Attending Provider Acti ve Start: August 18, 2023 End: August 18, 2023 Team Status: Active Member Role Status Dates Christopher Mann MD Primary Care Provider Active S tart: August 18, 2023 Aiden Lawson MD Attending Provider Active Star t: August 18, 2023 Team Status: Active Member Role Status Dates Christopher Mann MD Primary Care Provider Active S tart: September 15, [address] [facility] Emergency Provider Active Start: September 15, 2023 Emerald Conn MD Admit Provider, Atte nding Provider Active Start: September 15, 2023 Essie Salas MD Other Provider Active Start: Freddy maciel 2023 Rodger Tomas DO Other Provider Active Start: September 15, 2023 Team Status: Active Member Role Status Dates Christopher Mann MD Primary Care Provider Active S tart: September 15, [address] [facility] Emergency Provider Active Start: September 15, 2023 Essie Salas MD Attending Provider Active Start : September 15, 2023 Team Status: Inactive Member Role Status Dates Christopher Mann MD Primary Care Provider Active S tart: September 15, 2023 End: September 17, [address] [facility] Emergency Provider Active Start: September 15, 2023 End: September 17, 2023 Emerald Conn MD Admit Provider, Atte nding Provider Active Start: September 15, 2023 End: September 17, 2023 Essie Salas MD Other Provider Active Start: Freddy maciel 2023 End: September 17, 2023 Rodger Tomas DO Other Provider Active Start: September 15, 2023 End: September 17, 2023 Goals (unrecognized section and content) Goals may [...] BE BASED ON THE PRIMARY CLINICAL RECORDS. [employer] provides no warranty or guarantee of the accuracy or completeness of information in this document.
== END 2024-02-01 10:01 | disposition home or self-care (01) ==
LOC: MAMMO 10:00
PROVIDERS: PCP Family Medicine; Visit Provider Family Medicine
DX: Z12.31 Encounter for screening mammogram for malignant neoplasm of breast (principal); Z80.8 Family history of malignant neoplasm of other organs or systems
CPT/HCPCS: 77067

== ENCOUNTER 2024-02-07 06:32 | Outpatient (RCR) | payer MEDICARE, MEDICAID, SELFPAY ==
[2024-02-07 10:24] LABS: Basophils Absolute Auto 0.1 10^3/uL (0.0-0.1); Basophils Percent Auto 0.6 % (0.2-2.0); Eosinophils Absolute Auto 0.1 10^3/uL (0.0-0.7); Eosinophils Percent Auto 1.1 % (0.9-7.0); Hematocrit 36.3 % (36.0-48.0); Hemoglobin 11.2 g/dL (12.0-16.0); Immature Granulocytes Abs Auto 0.09 10^3/uL (0.00-0.03); Immature Granulocytes Pct Auto 0.9 % (0.0-0.5); Lymphocytes Absolute Auto 1.8 10^3/uL (1.2-3.8); Lymphocytes Percent Auto 17.6 % (20.5-60.0); Mean Corpuscular HGB Conc 30.9 g/dL (29.9-35.2); Mean Corpuscular Hemoglobin 32.1 pg (26.7-34.0); Mean Platelet Volume 10.4 fL (9.5-13.5); Monocytes Absolute Auto 0.8 10^3/uL (0.3-0.8); Monocytes Percent Auto 7.4 % (1.7-12.0); Neutrophils Absolute Auto 7.4 10^3/uL (1.4-6.5); Neutrophils Percent Auto 72.4 % (43.0-75.0); Platelet Count 123 10^3/uL (150-450); Red Blood Count 3.49 10^6/uL (4.20-5.40); Red Cell Distribution Width 14.5 % (11.0-15.0); White Blood Count 10.2 10^3/uL (4.0-11.0)
[2024-02-07 10:31] LABS: Alanine Aminotransferase 23 U/L (14-59); Albumin Globulin Ratio 0.5; Albumin Level 2.7 g/dL (3.4-5.0); Alkaline Phosphatase 86 U/L (46-116); Anion Gap 14.2; Aspartate Amino Transferase 13 U/L (15-37); BUN Creatinine Ratio 4.3; Bilirubin Total 0.5 mg/dL (0.2-1.0); Calcium 8.4 mg/dL (8.5-10.1); Carbon Dioxide 26.1 mmol/L (21.0-32.0); Chloride 93 mmol/L (98-107); Estimated GFR (African America 5 (>=60 mL/min/1.73m^2); Estimated GFR (Non-African Ame 4 (>=60 mL/min/1.73m^2); Globulin 5.2 g/dL; Glucose 324 mg/dL (74-106); Potassium 3.3 mmol/L (3.5-5.1); Sodium 130 mmol/L (136-145); Total Protein 7.9 g/dL (6.4-8.2)
== END 2024-04-25 23:59 | disposition home or self-care (01) ==
LOC: LAB 06:32
PROVIDERS: PCP Family Medicine; Visit Provider Family Medicine
DX: D63.8 Anemia in other chronic diseases classified elsewhere (principal)
CPT/HCPCS: 36415; 80053; 85025

== ENCOUNTER 2024-11-03 09:10 | Outpatient (REF) | payer MEDICARE, MEDICAID, SELFPAY ==
--- OUTSIDE RECORDS SUMMARY | 2024-03-14 06:00 | XMS_ITS ---
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 and ESRD (end stage renal disease) N18.6 Assessments Encounter Date Diagnosis (ICD Code) Assessment Notes Treatment Notes Treatment Clinical Notes Section Notes 03/14/2024 Stenosis of other vascular prosthetic devices, implants and grafts, initial encounter (ICD-10 - T82.858A) 03/14/2024 ESRD (end stage renal disease) (ICD-10 - N18.6) Plan Of Treatment No Information Progress Notes * Montse LANGEOB: 0 (73 yo F)Acc No.[id number]:03/14/2024 Patient: Amparo GARZA Provider: Clover Benites MD :1950 A ge:73 Y S ex:Female Date:03/14/2024 Address:[address] [id number] Pcp:Stephanie Brown MD * * Sign off status: Completed Visit Status: P EN (Pending) true * Provider: Clover Benites MD Date: 1 05/14/2023 Generated for Mark tavarez/David/Surya on: 0 11/03/2024 09:16 AM EDT
--- OUTSIDE RECORDS SUMMARY | 2024-03-14 06:15 | XMS_ITS ---
Author Organization [facility] in [place] Address [address] [place] [address] Care Team Providers Care Fruit Coordinator Name Role Phone Stephanie Brown MD Primary Care Provider Unavailabl e Provider, [facility] Unavailable [phone] Encounters Encounter Location Date Provider Diagnosis [facility] [address] [place] [address] 03/14/2024 ASC Provider Plan Of Treatment No Information Progress Notes * Gracy LANGEuDOB: 0 (73 yo F)Acc No.[id number]:03/14/2024 UNLOCKED PROGRESS NOTE Patient: Amparo GARZA Provider: A MO Provider :1950 A ge:73 Y S ex:Female Date:03/14/2024 Address:[address], [id number] Pcp:Stephanie Brown MD Check In:09:18 AM EST * * Electronic signature of ASC Provider on 11/03/2024 at 09:16 AM EDT Sign off status: Pending Visit Status: A RR (Check-In) * Provider: A MO Provider Date: 05/14/2023 Generated for Sarai ng/Famalkag/eTransmitting on: 0 11/03/2024 09:16 AM EDT
--- OUTSIDE RECORDS SUMMARY | 2024-05-24 10:30 | XMS_ITS ---
Author Organization [facility] Address [address] [place] [address] [place] [address] Care Team Providers Care Commodity Buyer Name Role Phone Stephanie Brown Primary Care Provider UnavailVahe Hong Unavailable [phone] Encounters Encounter Location Date Provider Diagnosis [address] [address] 05/24/2024 Vahe Elias Plan Of Treatment No Information Progress Notes * Mis LANGEuDOB: 0 (73 yo F)Acc No.[id number]:05/24/2024 Patient: Essence GARZALou Provider: Edson Elias DPM :1950 A ge:73 Y S ex:Female Date:05/24/2024 Address:[facility] Pcp:Stephanie Brown Subjective: * Chief Complaints: * * Medical History: Objective: * Vitals: Assessment: Plan: * Treatment: * Images: * Electronic signature of [place] in MANASA Elias on 11/03/2024 at 09:15 AM EDT Sign off status: Pending * Provider: Edson Elias DPM Date: 05/24/2024 Generated for Mark tavarez/David/Surya on: 0 11/03/2024 09:15 AM EDT
--- OUTSIDE RECORDS SUMMARY | 2024-06-21 10:00 | XMS_ITS ---
Author Organization [facility] Address [address] [place] [address] [place] [address] Care Team Providers Care Parts Professional Name Role Phone Stephanie Brown Primary Care Provider UnavailVahe Hong Unavailable [phone] Encounters Encounter Location Date Provider Diagnosis [address] [address] 06/21/2024 Vahe Elias Plan Of Treatment No Information Progress Notes * Mis LANGEuDOB: 0 (73 yo F)Acc No.[id number]:06/21/2024 Patient: Essence GARZALou Provider: Edson Elias DPM :1950 A ge:73 Y S ex:Female Date:06/21/2024 Address:[facility] Pcp:Stephanie Brown Subjective: * Chief Complaints: * * Medical History: Objective: * Vitals: Assessment: Plan: * Treatment: * Images: * Electronic signature of [place] in MANASA Elias on 11/03/2024 at 09:15 AM EDT Sign off status: Pending * Provider: Edson Elias DPM Date: 06/21/2024 Generated for Mark tavarez/David/Surya on: 0 11/03/2024 09:15 AM EDT
--- OUTSIDE RECORDS SUMMARY | 2024-09-20 10:45 | XMS_ITS ---
Author Organization [facility] Address [address] [place] [address] [place] [address] Care Team Providers Care Dbas Name Role Phone Stephanie Brown Primary Care Provider UnavailVahe Hong Unavailable [phone] Encounters Encounter Location Date Provider Diagnosis [address] [address] 09/20/2024 Vahe Elias Plan Of Treatment No Information Progress Notes * Mis LANGEuDOB: 0 (73 yo F)Acc No.[id number]:09/20/2024 Patient: Essence GARZALou Provider: Edson Elias DPM :1950 A ge:73 Y S ex:Female Date:09/20/2024 Address:[facility] Pcp:Stephanie Brown Subjective: * Chief Complaints: * * Medical History: Objective: * Vitals: Assessment: Plan: * Treatment: * Images: * Electronic signature of [place] in [place]NASA Elias on 11/03/2024 at 09:16 AM EDT Sign off status: Pending * Provider: Edson Elias DPM Date: 09/20/2024 Generated for Mark tavarez/David/Surya on: 11/03/2024 09:16 AM EDT
--- OUTSIDE RECORDS SUMMARY | 2024-11-03 09:15 | XMS_ITS | Clinical Summary ---
Author Organization [facility] Address [address] [place] [address] Phone Care Team Providers Care Payroll And Benefits Assistant Name Role Phone Stephanie Brown MD Primary Care Provider [phone] Allergies Active Allergy Reactions Criticality Noted Date Comments Diclofenac-Misoprostol Hives High 03/19/2023 Cephalexin Itching,Swelling 03/19/2023 Shellfish Containing Products Nausea/vomiting 1 05/19/2022 Medications atorvastatin (Lipitor) 20 mg tablet Take 1 tablet (20 mg) by mouth once daily. Active calcium carbonate (Tums) 200 mg calcium chewable tablet Chew 1 tablet (500 mg) 3 times a day. prn Active carvedilol (Coreg) 12.5 mg tablet Take 1 tablet (12.5 mg) by mouth 2 times daily (morning and late afternoon). Active gabapentin (Neurontin) 300 mg capsule Take 1 capsule (300 mg) by mouth 3 times a day. Active insulin NPH and regular human (HumuLIN 70-30, NovoLIN 70-30) 100 unit/mL (70-30) injection Inject under the skin 2 times a day before meals. Take as directed per insulin instructions. Active magnesium oxide (Mag-Ox) 400 mg tablet Take 1 tablet (400 mg) by mouth 2 times a day. Active midodrine (Proamatine) 5 mg tablet Take 1 tablet (5 mg) by mouth 3 (three) times a week. Take one tablet by mouth on Wednesday, Wednesday, and Wednesday Active omeprazole (PriLOSEC) [address] capsule Take 1 capsule (20 mg) by mouth once daily in the morning. Take before meals. Do not crush or chew. Active sertraline (Zoloft) 25 mg tablet Take 1 tablet (25 mg) by mouth once daily. Active ondansetron (Zofran) 4 mg tablet Take 1 tablet (4 mg) by mouth every 8 hours if needed for nausea or vomiting. Active acetaminophen (Tylenol) 325 mg tablet Take 1 tablet (325 mg) by mouth every 6 hours if needed for mild pain (1 - 3). Active bisacodyl (Dulcolax) 10 mg suppository 1 suppository (10 mg) once daily as needed. 3 Active calcium acetate (Phoslo) 667 mg capsule 1 capsule (667 mg) 3 times a day. 4 Active folic acid (Folvite) 1 mg tablet 1 tablet (1 mg) once daily. 3 Active ammonium lactate (Amlactin) 12 % cream Apply topically 2 times a day. 4 Active furosemide (Lasix) 80 mg tablet 1 tablet (80 mg) once daily. 4 Active hydrocortisone 1 % ointment if needed. 4 Active insulin lispro (HumaLOG) 100 unit/mL injection Sliding scale 4 Active polyvinyl alcohol (Liquifilm Tears) 1.4 % ophthalmic solution Four times daily 4 Active darbepoetin chris in polysorbat (Aranesp) 60 mcg/mL injection every 7 days. 3 Active carboxymethylcel lulose-glycern 1-0.9 % drops,gel Twice daily 4 Active Active Problems Problem Noted Date Diagnosed Date Atherosclerosis of [place] co ronary artery without angina pectoris 03/19/2023 Essential hypertension, benign 03/19/2023 Chest discomfort 03/19/2023 Dialysis patient 03/19/2023 Hyperlipidemia 03/19/2023 Stroke (cerebrum) (Multi) 03/19/2023 Family History Medical History Relation Name Comments Diabetes Brother Diabetes Father CVA Mother Relation Name Status Comments Brother Father Mother Social History Tobacco Use Types Packs/Day Years Used Date Smoking Tobacco: Former Cigarettes Smokeless Tobacco: Never Tobacco Cessation:Counseling Given: Not Answered Alcohol Use Standard Drinks/Week Comments Never 0 (1 standard drink = 0.6 oz pur e alcohol) occasional Comments Unknown Sex and Gender Information Value Date Recorded Sex Assigned at Not on file Legal Sex Female 11:17 AM EST Gender Identity Not on file Sexual Orientation Not on file Last Filed Vital Signs Vital Sign Reading Time Taken Comments Blood Pressure 112/58 03/28/2024 2:12 PM EST Pulse 56 03/28/2024 2:12 PM EST Temperature - - Respiratory Rate - - Oxygen Saturation - - Inhaled Oxygen Concentration - - Weight - - Height - - Body Mass Index - - Plan of Treatment Upcoming Encounters Date Type Department Care Team (Late st Contact Info) Description 04/10/2025 2:00 PM EST Office Visit [facility] [address] [facility] [address] [place] [address] Sheri Rodriguez MD [address] [facility] [address] [place] [address] Health Maintenance Due Date Last Done Comments CT Colonography 1950 Colonoscopy 1950 Colorectal Cancer Screening 1950 FIT-DNA (Cologuard) 1950 FIT 1950 Lipid Panel 1950 Medicare Annual Wellness Visit (AWV) 1950 Sigmoidoscopy 1950 Diabetes Screening 11/19/1967 Hepatitis C Screening 11/19/1967 Pneumococcal Vaccine (1 of 2 - PCV) 1968 DTaP/Tdap/Td Vaccines (1 - Tdap) 11/19/1971 Zoster Vaccines (1 of 2) 11/19/1999 RSV High Risk: (Elderly (60+) or Population) (1 - Risk 60-74 years 1-dose series) 2009 COVID-19 Vaccine (3 - season) 2023 05/03/2020, 04/15/2020 Influenza Vaccine (#1) 2024 Mammogram 02/01/2025 02/02/2024, 1012/2023, 01/29/2023, Additional history exists Bone Density Scan Completed 11/08/2020 HIB Vaccines Aged Out No longer eligi ble based on patient's age to complete this topic HPV Vaccines (No Doses Required) Completed Hepatitis A Vaccines Aged Out No long er eligible based on patient's age to complete this topic Hepatitis B Vaccines Aged Out No long er eligible based on patient's age to complete this topic IPV Vaccines Aged Out No longer eligi ble based on patient's age to complete this topic Meningococcal Vaccine Aged Out No tamika van eligible based on patient's age to complete this topic Rotavirus Vaccines Aged Out No longer eligible based on patient's age to complete this topic Insurance MEDICAID [employer] MEDICARE [employer] MEDICARE Care Teams Payroll And Benefits Assistant Relationship Specialty Start Date End Date Stephanie Brown MD [address] [facility] 110 [place] [address] PCP - General 11/11/22
--- OUTSIDE RECORDS SUMMARY | 2024-11-03 09:15 | XMS_ITS | Encounter Summary ---
Author Organization [facility] Address [address] [place] [address] Phone Care Team Providers Care Primary Montessori Teacher Name Role Phone Stephanie Brown MD Primary Care Provider [phone]- [phone] Encounter Details Date Type Department Care Team (Late st Contact Info) Description 09/16/[address] [facility] [address] [place] [id number] Scanning, Generic Provider Social History Tobacco Use Types Packs/Day Years Used Date Smoking Tobacco: Former Cigarettes Smokeless Tobacco: Never Alcohol Use Standard Drinks/Week Comments Not Currently 0 (1 standard drink = 0.6 oz pur e alcohol) occasional Comments Unknown Sex and Gender Information Value Date Recorded Sex Assigned at Not on file Legal Sex Female 11:17 AM EST Gender Identity Not on file Sexual Orientation Not on file documented as of this encounter Plan of Treatment Upcoming Encounters Date Type Department Care Team (Late st Contact Info) Description 04/10/2025 2:00 PM EST Office Visit [facility] [address] [address] Sheri Rodriguez MD 3 [facility] 2, [address] [place] [address] documented as of this encounter Visit Diagnoses Not on filedocumented in this encounter Additional Health Concerns Assessment Noted Time A fall risk assessment has been complete d for the patient 03/23/2023 2:10 PM EST documented as of this encounter Care Teams Primary Montessori Teacher Relationship Specialty Start Date End Date Stephanie Brown MD 112 [facility] 110 [place] [address] PCP - General 11/11/22 documented as of this encounter
--- OUTSIDE RECORDS SUMMARY | 2024-11-03 09:15 | XMS_ITS | Encounter Summary ---
Author Organization [facility] Address [address] [place] [address] Phone Care Team Providers Care Ore Charger Name Role Phone Stephanie Brown MD Primary Care Provider [phone]- [phone] Encounter Details Date Type Department Care Team (Late st Contact Info) Description 09/17/[address] [facility] [address] [place] [id number] Scanning, Generic Provider Social History Tobacco Use [...] Description 04/10/2025 2:00 PM EST Office Visit [facility] [address] [address] Sheri Rodriguez MD 3 [facility] 2, [address] [place] [address] documented as of this encounter Visit Diagnoses Not on filedocumented in this encounter Additional Health Concerns Assessment Noted Time A fall risk assessment has been complete d for the patient 03/23/2023 2:10 PM EST documented as of this encounter Care Teams Ore Charger Relationship Specialty Start Date End Date Stephanie Brown MD 112 [facility] 110 [place] [address] PCP - General 11/11/22 documented as of this encounter
--- OUTSIDE RECORDS SUMMARY | 2024-11-03 09:15 | XMS_ITS | Encounter Summary ---
Author Organization [facility] Address [address] [place] [address] Phone Care Team Providers Care Firearms Specialist Name Role Phone Stephanie Brown MD Primary Care Provider [phone] Encounter Details Date Type Department Care Team (Late st Contact Info) Description 09/15/2023 Scanned Document [facility] [address] [place] [address] Scanning, Generic Provider Social History Tobacco Use [...] Description 04/10/2025 2:00 PM EST Office Visit [facility] [address] [address] Sheri Rodriguez MD 703 [facility] 2, [address] [place] [address] documented as of this encounter Procedures Procedure Name Priority Date/Time Associated Diagnosis Comments OUTSIDE IMAGING SCAN 09/15/2023 documented in this encounter Results * OUTSIDE IMAGING SCAN (09/15/2023) Anatomical Region Laterality Modality Other Narrative 09/15/2023 Ordered by an unspecified provider. us Generic Provider Scanning OUTSIDE SCAN Final Result documented in this encounter Visit Diagnoses Not on filedocumented in this encounter Additional Health Concerns Assessment Noted Time A fall risk assessment has been complete d for the patient 03/23/2023 2:10 PM EST documented as of this encounter Care Teams Firearms Specialist Relationship Specialty Start Date End Date Stephanie Brown MD 112 [facility] 110 [place] [address] PCP - General 11/11/22 documented as of this encounter
--- OUTSIDE RECORDS SUMMARY | 2024-11-03 09:15 | XMS_ITS | Encounter Summary ---
Author Organization [facility] Address [address] [place] [address] Phone Care Team Providers Care Acetylene Torch Solderer Name Role Phone Stephanie Brown MD Primary Care Provider [phone]- [phone] Encounter Details Date Type Department Care Team (Late st Contact Info) Description 07/31/2022 Orders Only [facility] [address] [place] [address] Conversion, Onbase Social History Tobacco Use Types Packs/Day Years Used Date Smoking Tobacco: Never Assessed Comments Unknown Sex and Gender Information Value Date Recorded Sex Assigned at Not on file Legal Sex Female 11:17 AM EST Gender Identity Not on file Sexual Orientation Not on file documented as of this encounter Plan of Treatment Upcoming Encounters Date Type Department Care Team (Late st Contact Info) Description 04/10/2025 2:00 PM EST Office Visit [facility] 703 [facility] 250 [place] [address] Sheri Rodriguez MD 703 [facility] 2, [address] [place] [address] Scheduled Orders Name Type Priority Associated Diagnoses Orde r Schedule OUTSIDE LAB SCAN Lab Ordered: 07/31/2022 documented as of this encounter Visit Diagnoses Not on filedocumented in this encounter Care Teams Acetylene Torch Solderer Relationship Specialty Start Date End Date Stephanie Brown MD [address] [facility] 110 [place] [address] PCP - General 11/11/22 documented as of this encounter
--- OUTSIDE RECORDS SUMMARY | 2024-11-03 09:16 | XMS_ITS | Encounter Summary ---
Author Organization [facility] Address [address] [place] [address] Care Team Providers Care Family Consumer Science Teacher Name Role Phone Stephanie Brown MD Primary Care Provider [phone] Encounter Details Date Type Department Care Team (Late st Contact Info) Description 01/04/2023 Orders Only [facility] [address] [place] [address] A, Unknown Practice [address] [place], [place] [id number] Social History Tobacco Use Types Packs/Day Years Used Date Smoking Tobacco: Never Assessed Comments Unknown Sex and Gender Information Value Date Recorded Sex Assigned at Not on file Legal Sex Female 6:37 PM EDT Gender Identity Not on file Sexual Orientation Not on file documented as of this encounter Plan of Treatment Not on file documented as of this encounter Procedures Procedure Name Priority Date/Time Associated Diagnosis Comments SCANNED LABS Routine 01/04/2023 11:20 AM EDT documented in this encounter Results * SCANNED LABS (01/04/2023 11:20 AM EDT) us Unknown Practice A LAB CHG PERFORMABLES Final Re sult documented in this encounter Visit Diagnoses Not on filedocumented in this encounter Care Teams Family Consumer Science Teacher Relationship Specialty Start Date End Date Stephanie Brown MD [address] [place] [address] PCP - General Family Medicine 10/19/22 02/07/23 documented as of this encounter
--- OUTSIDE RECORDS SUMMARY | 2024-11-03 09:16 | XMS_ITS | Encounter Summary ---
Author Organization [facility] Address [address] [place] [address] Care Team Providers Care Mill Stenciler Name Role Phone Stephanie Brown MD Primary Care Provider [phone] Encounter Details Date Type Department Care Team (Late st Contact Info) Description 01/25/2023 Orders Only [facility] [address] [place] [address] A, Unknown Practice [address] [place], [place] [id number] Social History Tobacco Use Types Packs/Day Years [...] Date/Time Associated Diagnosis Comments SCANNED LABS Routine 01/25/2023 1:06 PM EDT SCANNED LABS Routine 01/25/2023 1:02 PM EDT documented in this encounter Results * SCANNED LABS (01/25/2023 1:06 PM EDT) us Unknown Practice A LAB CHG PERFORMABLES Final Re sult * SCANNED LABS (01/25/2023 1:02 PM EDT) us Unknown Practice A LAB CHG PERFORMABLES Final Re sult documented in this encounter Visit Diagnoses Not on filedocumented in this encounter Care Teams Mill Stenciler Relationship Specialty Start Date End Date Stephanie Brown MD [address] [place] [address] PCP - General Family Medicine 10/19/22 02/07/23 documented as of this encounter
--- OUTSIDE RECORDS SUMMARY | 2024-11-03 09:16 | XMS_ITS | Encounter Summary ---
Author Organization [facility] Address [address] [place] [address] Care Team Providers Care Dispatch Specialist Name Role Phone Unavailable Primary Care Provider Unavailabl e Encounter Details Date Type Department Care Team (Late st Contact Info) Description 02/15/2024 Abstract [facility] [address] [facility] 110 [place] [address] Stephanie Brown MD 112 [facility] 110 [place] [address] Social History Tobacco Use Types Packs/Day Years Used Date Smoking Tobacco: Never Assessed Comments Unknown Sex and Gender Information Value Date Recorded Sex Assigned at Not on file Legal Sex Female 6:37 PM EDT Gender Identity Not on file Sexual Orientation Not on file documented as of this encounter Plan of Treatment Not on file documented as of this encounter Visit Diagnoses Not on filedocumented in this encounter
--- OUTSIDE RECORDS SUMMARY | 2024-11-03 09:16 | XMS_ITS | Encounter Summary ---
Author Organization [facility] Address [address] [place] [address] Care Team Providers Care Turbine Assembler Name Role Phone Stephanie Brown MD Primary Care Provider [phone] Encounter Details Date Type Department Care Team (Late st Contact Info) Description 01/28/2023 Orders Only [facility] [address] [place] [address] A, Unknown Practice [address] [place], [place] [id number] Social History Tobacco Use Types Packs/Day Years [...] Date/Time Associated Diagnosis Comments SCANNED LABS Routine 01/27/2023 8:46 AM EDT SCANNED LABS Routine 01/26/2023 1:03 PM EDT documented in this encounter Results * SCANNED LABS (01/27/2023 8:46 AM EDT) us Unknown Practice A LAB CHG PERFORMABLES Final Re sult * SCANNED LABS (01/26/2023 1:03 PM EDT) us Unknown Practice A LAB CHG PERFORMABLES Final Re sult documented in this encounter Visit Diagnoses Not on filedocumented in this encounter Care Teams Turbine Assembler Relationship Specialty Start Date End Date Stephanie Brown MD [address] [place] [address] PCP - General Family Medicine 10/19/22 02/07/23 documented as of this encounter
--- OUTSIDE RECORDS SUMMARY | 2024-11-03 09:16 | XMS_ITS | Encounter Summary ---
Author Organization [facility] Address [address] [place] [address] Care Team Providers Care Automotive Metalsmith Name Role Phone Unavailable Primary Care Provider Unavailabl e Encounter Details Date Type Department Care Team (Late st Contact Info) Description 06/28/2023 Abstract [facility] [address] [facility] 110 [place] [address] Stephanie Brown MD 112 [facility] 110 [place] [address] Social History Tobacco Use Types [...]
--- OUTSIDE RECORDS SUMMARY | 2024-11-03 09:16 | XMS_ITS | Encounter Summary ---
Author Organization [facility] Address [address] [place] [address] Care Team Providers Care Automatic Nailing Machine Feeder Name Role Phone Unavailable Primary Care Provider Unavailabl e Encounter Details Date Type Department Care Team (Late st Contact Info) Description 09/21/2023 Abstract [facility] [address] [facility] 110 [place] [address] Stephanie Brown MD 112 [facility] 110 [place] [address] Social History Tobacco Use Types [...]
--- OUTSIDE RECORDS SUMMARY | 2024-11-03 09:16 | XMS_ITS | Encounter Summary ---
Author Organization [facility] Address [address] [place] [address] Care Team Providers Care Cone Chocolate Dipper Name Role Phone Unavailable Primary Care Provider Unavailabl e Encounter Details Date Type Department Care Team (Late st Contact Info) Description 03/28/2024 Abstract [facility] [address] [facility] 110 [place] [address] Stephanie Brown MD 112 [facility] 110 [place], [place] [phone] Social History Tobacco Use Types Packs/Day Years [...]
--- OUTSIDE RECORDS SUMMARY | 2024-11-03 09:16 | XMS_ITS | Encounter Summary ---
Author Organization [facility] Address [address] [place] [address] Care Team Providers Care District Resource Officer Name Role Phone Unavailable Primary Care Provider Unavailabl e Encounter Details Date Type Department Care Team (Late st Contact Info) Description 04/05/2023 Orders Only [facility] [address] [place] [address] A, Unknown Practice [address] [place], [place] [phone] Social History Tobacco Use Types Packs/Day Years [...] Date/Time Associated Diagnosis Comments SCANNED LABS Routine 04/05/2023 11:44 AM EST documented in this encounter Results * SCANNED LABS (04/05/2023 11:44 AM EST) us Unknown Practice A LAB CHG PERFORMABLES Final Re sult documented in this encounter Visit Diagnoses Not on filedocumented in this encounter
--- OUTSIDE RECORDS SUMMARY | 2024-11-03 09:16 | XMS_ITS | Encounter Summary ---
Author Organization [facility] Address [address] [place] [address] Care Team Providers Care Senior Communications Engineer Name Role Phone Unavailable Primary Care Provider Unavailabl e Encounter Details Date Type Department Care Team (Late st Contact Info) Description 06/29/2023 Clinisync Result Encounter [facility] External Department Unsolicited Provider, Generic External Data Social History Tobacco Use Types Packs/Day Years [...] Procedure Name Priority Date/Time Associated Diagnosis Comments VASC US UPPER EXTREMITY VENOUS DUPLEX RIGHT 06/29/2023 3:49 PM EST documented in this encounter Results * Vascular US upper extremity venous duplex right (06/29/2023 3:49 PM EST) Anatomical Region Laterality Modality Upper Extremities Ultrasound 06/29/2023 3:49 PM EST Narrative 06/29/2023 3:51 PM EST [address] [address] Ultrasound Report Signed Patient: SAMREEN LANGE MR#: [id number] : 1950 Acct:[id number] Age/Sex: 72 / F ADM Date: 06/29/23 Loc: US Attending Dr: ANTONIETTA DOYLE Ordering Physician: ANTONIETTA DOYLE Date of Service: 06/29/23 Procedure(s): US venous doppler UE RT Accession Number(s): [id number] cc: CHRISTOPHER MANN ; ANTONIETTA DOYLE [address] [id number] Patient Name: SAMREEN LANGE MRN: [id number] date: 1950 Sex: F Assigned Patient Location: US Current Patient Location: US Accession/Order Number: [id number] Exam Date: 06/29/2023 13:50 Report Date: 06/29/2023 15:49 At the request of: ANTONIETTA DOYLE Procedure: US venous doppler UE RT EXAM: US venous doppler UE RT HISTORY: Right Arm Pain, Right Arm Swelling COMPARISON: None. TECHNIQUE: Grayscale, color and Doppler FINDINGS: Region: Right arm Thrombus: None Flow: Normal Augmentation: Normal Compressibility: Normal Other: Forearm fistula is identified, patent US/US venous doppler UE RT IMPRESSION: No deep or superficial vein thrombus in the right leg Patent forearm fistula Electronically authenticated by: NAGA SANTIAGO Date: 06/29/2023 15:49 Dictated By: Naga Santiago M.D. Signed By: 06/29/23 1551 DD/ 1549 TD/TT: Chemical Laboratory Chief: Procedure Note Radiology, Radiologist, MD - 06/29/2023 [place] [address] Ultrasound Report Signed Patient: SAMREEN LANGE LMR#: [id number] : 1950Acct:[id number] Age/Sex: 72 / FADM Date: 06/29/23 Loc: US Attending Dr: ANTONIETTA DOYLE Ordering Physician: ANTONIETTA DOYLE Date of Service: 06/29/23 Procedure(s): US venous doppler UE RT Accession Number(s): [id number] cc: CHRISTOPHER MANN ; ANTONIETTA DOYLE [address] [address] Patient Name: SAMREEN LANGE MRN: [id number] date: 1950 Sex: F Assigned Patient Location: US Current Patient Location: US Accession/Order Number: [id number] Exam Date: 06/29/2023 13:50 Report Date: 06/29/2023 15:49 At the request of: ANTONIETTA DOYLE Procedure: US venous doppler UE RT EXAM: US venous doppler UE RT HISTORY: Right Arm Pain, Right Arm Swelling COMPARISON: None. TECHNIQUE: Grayscale, color and Doppler FINDINGS: Region: Right arm Thrombus: None Flow: Normal Augmentation: Normal Compressibility: Normal Other: Forearm fistula is identified, patent US/US venous doppler UE RT IMPRESSION: No deep or superficial vein thrombus in the right leg Patent forearm fistula Electronically authenticated by: NAGA SANTIAGO Date: 06/29/2023 15:49 Dictated By: Naga Santiago M.D. Signed By:06/29/23 1551 DD/ 1549 TD/TT: Chemical Laboratory Chief: us Generic External Data Provider IMG US PROCEDURES Final Result documented in this encounter Visit Diagnoses Not on filedocumented in this encounter
--- OUTSIDE RECORDS SUMMARY | 2024-11-03 09:16 | XMS_ITS | Encounter Summary ---
Author Organization [facility] Address [address] [place] [address] Care Team Providers Care Boat Dock Operator Name Role Phone Unavailable Primary Care Provider Unavailabl e Encounter Details Date Type Department Care Team (Late st Contact Info) Description 04/06/2023 Orders Only [facility] [address] [place] [address] [place] [address] A, Unknown Practice [address] [place], [place] [address] Social History Tobacco Use Types Packs/Day Years [...] Associated Diagnosis Comments SCANNED LABS Routine 04/05/2023 11:30 AM EST documented in this encounter Results * SCANNED LABS (04/05/2023 11:30 AM EST) us Unknown Practice A LAB CHG PERFORMABLES Final Re sult documented in this encounter Visit Diagnoses Not on filedocumented in this encounter
--- OUTSIDE RECORDS SUMMARY | 2024-11-03 09:16 | XMS_ITS | Encounter Summary ---
Author Organization [facility] Address [address] [place] [address] Care Team Providers Care Luggage Repairer Name Role Phone Unavailable Primary Care Provider Unavailabl e Encounter Details Date Type Department Care Team (Late st Contact Info) Description 09/16/2023 Abstract [facility] [address] [place] [address] [place] [address] Unallocated, Noms Provider, [address] [place] [address] Social History Tobacco Use Types Packs/Day Years [...]
--- OUTSIDE RECORDS SUMMARY | 2024-11-03 09:16 | XMS_ITS | Encounter Summary ---
Author Organization [facility] Address [address] [place] [address] Care Team Providers Care Screening Unit Registered Nurse Name Role Phone Unavailable Primary Care Provider Unavailabl e Encounter Details Date Type Department Care Team (Late st Contact Info) Description 09/15/2023 Abstract [facility] [address] [facility] 110 [place] [address] Stephanie Brown MD 112 [facility] 110 [place] [address] Social History Tobacco Use Types [...]
--- OUTSIDE RECORDS SUMMARY | 2024-11-03 09:16 | XMS_ITS | Encounter Summary ---
Author Organization [facility] Address [address] [place] [address] Care Team Providers Care Document Manager Name Role Phone Unavailable Primary Care Provider Unavailabl e Encounter Details Date Type Department Care Team (Late st Contact Info) Description 08/23/2023 Abstract [facility] [address] [facility] 110 [place] [address] Stephanie Brown MD 112 [facility] 110 [place] [address] Social History Tobacco Use Types [...]
--- OUTSIDE RECORDS SUMMARY | 2024-11-03 09:16 | XMS_ITS | Encounter Summary ---
Author Organization [facility] Address [id number] [address] [place] [address] Care Team Providers Care Wood Boring Machine Operator Name Role Phone Unavailable Primary Care Provider Unavailabl e Encounter Details Date Type Department Care Team (Late st Contact Info) Description 06/26/2022 Abstract Aliya Aleta Louisa [facility] - Medical Oncology [address] [place] [address] Hunter Rowland MD [address] [facility] [address] [place], [place] [id number] Social History Tobacco Use Types Packs/Day Years Used Date Smoking Tobacco: Never Assessed Childcare Answer Date Recorded Childcare Unknown 10/05/2018 Employment Answer Date Recorded Employment Unknown 10/05/2018 Comments Unknown Sex and Gender Information Value Date Recorded Sex Assigned at Not on file Legal Sex Female 11:56 AM EDT Gender Identity Not on file Sexual Orientation Not on file documented as of this encounter Plan of Treatment Not on file documented as of this encounter Procedures Procedure Name Priority Date/Time Associated Diagnosis Comments ADAPTER ANESTHESIA MULIT ADAPTER 15MM ID 22MM OD NOVAPLUS ([id number]) Routine 06/15/2022 12:29 PM EST XR CHEST 1 VW Routine 05/08/2022 12:32 PM EST US RETROPERITONEAL COMPLETE Routine 12/01/2021 12:30 PM EDT documented in this encounter Results * Adapter anesthesia mulit adapter 15mm id 22mm od novaplus ([id number]) (06/15/2022 12:29 PM EST) us Not In System Ref Prov GENERAL SUPPLY & EQUIPMEN T ORDERABLES Final Result * X-ray chest 1 view (05/08/2022 12:32 PM EST) Anatomical Region Laterality Modality Body, Chest N/A Computed Radiogr aphy us Not In System Ref Prov IMG DIAGNOSTIC IMAGING OR DERABLES Final Result * Ultrasound retroperitoneal complete (12/01/2021 12:30 PM EDT) Anatomical Region Laterality Modality Body Ultrasound us Not In System Ref Prov IMG US ORDERABLES Final R esult documented in this encounter Visit Diagnoses Not on filedocumented in this encounter
--- OUTSIDE RECORDS SUMMARY | 2024-11-03 09:16 | XMS_ITS | Encounter Summary ---
Author Organization [facility] Address [address] [place] [address] Care Team Providers Care Blueprint Reproducer Name Role Phone Unavailable Primary Care Provider Unavailabl e Encounter Details Date Type Department Care Team (Late st Contact Info) Description 09/15/2023 Abstract [facility] [address] [facility] [address] [place] [address] Stephanie Brown MD 112 [facility] 110 [place] [address] Social History Tobacco Use Types [...]
--- OUTSIDE RECORDS SUMMARY | 2024-11-03 09:16 | XMS_ITS | Clinical Summary ---
Author Organization [employer] [facility] Address [id number] [place] [address] Care Team Providers Care Associate Director Data & Analytics Name Role Phone Unavailable Primary Care Provider Unavailabl e Social History Tobacco Use Types Packs/Day Years Used Date Smoking Tobacco: Never Assessed Childcare Answer Date Recorded Childcare Unknown 10/05/2018 Employment Answer Date Recorded Employment Unknown 10/05/2018 Comments Unknown Sex and Gender Information Value Date Recorded Sex Assigned at Not on file Legal Sex Female 11:56 AM EDT Gender Identity Not on file Sexual Orientation Not on file Plan of Treatment Health Maintenance Due Date Last Done Comments Depression Screening 1961 Tobacco Screening 1961 Adult BMI Screening 11/19/1967 DTaP,Tdap and Td Vaccines (1 - Tdap) 1968 Zoster (Shingles) Vaccine (1 of 2) 11/19/1999 Fall Risk Screening 2014 Influenza Vaccine 12/25/2024 Medical Devices Not on file
--- OUTSIDE RECORDS SUMMARY | 2024-11-03 09:16 | XMS_ITS | Encounter Summary ---
Author Organization [facility] Address [address] [place] [address] Care Team Providers Care Psychotherapist Counselor Name Role Phone Unavailable Primary Care Provider Unavailabl e Encounter Details Date Type Department Care Team (Late st Contact Info) Description 04/15/2023 Orders Only [facility] [address] [place] [address] [place] [address] A, Unknown Practice [address] [place], [place] [address] Social History Tobacco Use Types Packs/Day Years [...] Date/Time Associated Diagnosis Comments SCANNED LABS Routine 04/14/2023 10:17 AM EST documented in this encounter Results * SCANNED LABS (04/14/2023 10:17 AM EST) us Unknown Practice A LAB CHG PERFORMABLES Final Re sult documented in this encounter Visit Diagnoses Not on filedocumented in this encounter
--- OUTSIDE RECORDS SUMMARY | 2024-11-03 09:16 | XMS_ITS | Patient Health Record ---
Author Organization [facility] Address [address] [place] [address] [place] [address] Care Team Providers Care Commissioned Fire Officer Name Role Phone [place], [place] Primary Care Provider Vahe Richards Unavailable [phone] Reason For Referral No Information Encounters Encounter Location Date Provider Diagnosis [facility] [address] [place] [address] 11/17/2023 [facility] [address] [place] [address] 02/16/2024 [facility] [address] 06/21/2024 [facility] [address] [place] [address] 09/20/2024 Vahe Salmeron Plan Of Treatment No Information Insurance Providers Payer Name Payer Address Payer Phone Subscriber Number Group Number Insured Name Patient Relationship to Insured Coverage Start Date Coverage End Date [facility] [address] [address] [place] [address] [id number] Claudy Castorena Self - patient is the insured Medicaid [place] [employer] [address] [place] [address] [id number] Claudy Castorena Self - patient is the insured
--- OUTSIDE RECORDS SUMMARY | 2024-11-03 09:16 | XMS_ITS | Encounter Summary ---
Author Organization [facility] Address [address] [place] [address] Care Team Providers Care Desktop Architect Name Role Phone Stephanie Brown MD Primary Care Provider [phone] Encounter Details Date Type Department Care Team (Late st Contact Info) Description 11/12/2022 Abstract [facility] [address] [facility] 110 [place] [address] Stephanie Brown MD [address] [facility] 110 [place] [address] Social History Tobacco Use Types Packs/Day Years [...] on filedocumented in this encounter Care Teams Desktop Architect Relationship Specialty Start Date End Date Stephanie Brown MD [address] [facility] 110 [place] [address] PCP - General Family Medicine 10/19/22 02/07/23 documented as of this encounter
--- OUTSIDE RECORDS SUMMARY | 2024-11-03 09:16 | XMS_ITS | Encounter Summary ---
Author Organization [facility] Address [address] [place] [address] Care Team Providers Care Boilers Inspector Name Role Phone Stephanie Brown MD Primary Care Provider [phone] Encounter Details Date Type Department Care Team (Late st Contact Info) Description 02/01/2023 Orders Only [facility] [address] [place] [address] [place] [address] A, Unknown Practice [address] [place], [place] [address] Social History Tobacco Use Types Packs/Day Years [...] Procedure Name Priority Date/Time Associated Diagnosis Comments MAMMOGRAM* Routine 01/28/2023 9:44 AM EDT documented in this encounter Results * MAMMOGRAM* (01/28/2023 9:44 AM EDT) Anatomical Region Laterality Modality Radiographic Margarita ging us Unknown Practice A IMG XR PROCEDURES Final Resul t documented in this encounter Visit Diagnoses Not on filedocumented in this encounter Care Teams Boilers Inspector Relationship Specialty Start Date End Date Stephanie Brown MD [address] [place] [address] [place] [address] PCP - General Family Medicine 10/19/22 02/07/23 documented as of this encounter
--- OUTSIDE RECORDS SUMMARY | 2024-11-03 09:16 | XMS_ITS | Encounter Summary ---
Author Organization [facility] Address [address] [place] [address] Care Team Providers Care Mine Promotor Name Role Phone Stephanie Brown MD Primary Care Provider [phone] Encounter Details Date Type Department Care Team (Late st Contact Info) Description 01/27/2023 Orders Only [facility] [address] [place] [address] [place] [address] A, Unknown Practice [address] [place], [place] [address] Social History Tobacco Use Types Packs/Day Years [...] Associated Diagnosis Comments SCANNED LABS Routine 01/27/2023 2:03 PM EDT documented in this encounter Results * SCANNED LABS (01/27/2023 2:03 PM EDT) us Unknown Practice A LAB CHG PERFORMABLES Final Re sult documented in this encounter Visit Diagnoses Not on filedocumented in this encounter Care Teams Mine Promotor Relationship Specialty Start Date End Date Stephanie Brown MD [address] [place] [address] [place] [address] PCP - General Family Medicine 10/19/22 02/07/23 documented as of this encounter
--- OUTSIDE RECORDS SUMMARY | 2024-11-03 09:16 | XMS_ITS | Encounter Summary ---
Author Organization [facility] Address [address] [place] [address] Care Team Providers Care Bow Maker Gift Wrapping Name Role Phone Stephanie Mann MD Primary Care Provider [phone] Encounter Details Date Type Department Care Team (Late st Contact Info) Description 01/29/2023 Clinisync Result Encounter [facility] External Department Unsolicited Stephanie Mann MD [address] [facility] 110 [place] [address] Social History Tobacco Use Types Packs/Day Years [...] Procedure Name Priority Date/Time Associated Diagnosis Comments BI MAMMOGRAM SCREENING BILATERAL 01/29/2023 8:50 AM EDT documented in this encounter Results * Bilateral screening mammogram (01/29/2023 8:50 AM EDT) Anatomical Region Laterality Modality Breast Bilateral Mammography 01/29/2023 8:50 AM EDT Narrative 01/29/2023 8:50 AM EDT The [address] [address] Mammography Report Signed Patient: SAMREEN LANGE MR#: [id number] : 1950 Acct:[id number] Age/Sex: 72 / F ADM Date: 01/28/23 Loc: MAMMO Attending Dr: STEPHANIE MANN Ordering Physician: STEPHANIE MANN Results: Date of Service: 01/28/23 Follow Up: Procedure(s): MM screening mammo BI Accession Number(s): [id number] cc: STEPHANIE MANN Patient: SAMREEN LANGE Exam Date: 01/28/2023 : 1950 Gender:F Ordering : DR STEPHANIE MANN M.D. Admission #: [id number] Family : Order #: [id number] CLICK HERE TO VIEW EXAM RADIOLOGY REPORT PROCEDURE: MM SCREENING MAMMO BI COMPARISON: MG MAMM SCREEN MOIRA W CAD, 01/15/2021. MG MAMM SCREEN MOIRA W CAD, 01/19/2022. INDICATIONS: Screening Calculator Name NCI Breast Cancer Risk Assessment Tool 5 Year Breast Cancer Risk 1.60% Lifetime Breast Cancer Risk 3.90% Personal Breast Cancer No Personal Ovarian Cancer No Treatments hysterectomy Family Cancers Father with pancreatic cancer at age 68. LOCATION: [facility] BREAST COMPOSITION: Extremely dense, which lowers the sensitivity of mammography. FINDINGS: DIAGNOSTIC CATEGORY 2--BENIGN FINDING. NO CHANGE FROM COMPARISON. Very limited 2D only projections due to the patient being wheelchair-bound. Scattered benign-appearing calcifications are present. RIGHT BREAST: No significant suspicious finding. LEFT BREAST: No significant suspicious finding. RECOMMENDATIONS: ROUTINE MAMMOGRAM AND CLINICAL EVALUATION IN 12 MONTHS. PLEASE NOTE: A NORMAL MAMMOGRAM DOES NOT EXCLUDE THE POSSIBILITY OF BREAST CANCER. A CLINICALLY SUSPICIOUS PALPABLE LUMP SHOULD BE BIOPSIED. Dictated by: Reji De Leon MD on 01/29/2023 at 08:47 Approved by: Reji De Leon MD on 01/29/2023 at 08:50 Dictated By: Reji De Leon M.D. Signed By: 01/29/23 0851 DD/ 0850 TD/TT: Appellate Law Clerk: Procedure Note Radiology, Radiologist, - 02/02/2023 [place] [address] Mammography Report Signed Patient: SAMREEN LANGE LMR#: [id number] : 1950Acct:[id number] Age/Sex: 72 / FADM Date: 01/28/23 Loc: MAMMO Attending Dr: STEPHANIE MANN Ordering Physician: STEPHANIE MANNResults: Date of Service: 01/28/23Follow Up: Procedure(s): MM screening mammo BI Accession Number(s): [id number] cc: STEPHANIE MANN Patient: SAMREEN LANGE Exam Date: 01/28/2023 : 1950 Gender:F Ordering : DR STEPHANIE MANN M.D. Admission #: [id number] Family : Order #: [id number] CLICK HERE TO VIEW EXAM RADIOLOGY REPORT PROCEDURE: MM SCREENING MAMMO BI COMPARISON: MG MAMM SCREEN MOIRA W CAD, 01/15/2021. MG MAMM SCREEN MOIRA W CAD, 01/19/2022. INDICATIONS: Screening Calculator Name NCI Breast Cancer Risk Assessment Tool 5 Year Breast Cancer Risk 1.60% Lifetime Breast Cancer Risk 3.90% Personal Breast Cancer No Personal Ovarian Cancer No Treatments hysterectomy Family Cancers Father with pancreatic cancer at age 68. LOCATION: [facility] BREAST COMPOSITION: Extremely dense, which lowers the sensitivity of mammography. FINDINGS: DIAGNOSTIC CATEGORY 2--BENIGN FINDING. NO CHANGE FROM COMPARISON. Very limited 2D only projections due to the patient beingwheelchair-bound. Scattered benign-appearing calcifications are present. RIGHT BREAST: No significant suspicious finding. LEFT BREAST: No significant suspicious finding. RECOMMENDATIONS: ROUTINE MAMMOGRAM AND CLINICAL EVALUATION IN 12 MONTHS. PLEASE NOTE: A NORMAL MAMMOGRAM DOES NOT EXCLUDE THE POSSIBILITY OFBREAST CANCER. A CLINICALLY SUSPICIOUS PALPABLE LUMP SHOULD BE BIOPSIED. Dictated by: Reji De Leon MD on 01/29/2023 at 08:47 Approved by: Reji De Leon MD on 01/29/2023 at 08:50 Dictated By: Reji De Leon M.D. Signed By:01/29/23 0851 DD/ 0850 TD/TT: Appellate Law Clerk: us Stephanie Mann MD IMG BI PROCEDURES Final Result documented in this encounter Visit Diagnoses Not on filedocumented in this encounter Care Teams Bow Maker Gift Wrapping Relationship Specialty Start Date End Date Stephanie Mann MD [address] [facility] [address] [place] [address] PCP - General Family Medicine 10/19/22 02/07/23 documented as of this encounter
--- OUTSIDE RECORDS SUMMARY | 2024-11-03 09:16 | XMS_ITS | Encounter Summary ---
Author Organization [facility] Address [address] [place] [address] Care Team Providers Care Building Contractor Name Role Phone Unavailable Primary Care Provider Unavailabl e Encounter Details Date Type Department Care Team (Late st Contact Info) Description 02/02/2024 Clinisync Result Encounter [facility] External Department Unsolicited Stephanie Mann MD 112 [facility] [address] [place] [address] Social History Tobacco Use Types Packs/Day Years [...] Associated Diagnosis Comments BI MAMMOGRAM SCREENING BILATERAL 02/02/2024 3:04 PM EDT documented in this encounter Results * Bilateral screening mammogram (02/02/2024 3:04 PM EDT) Anatomical Region Laterality Modality Breast Bilateral Mammography 02/02/2024 3:04 PM EDT Narrative 02/02/2024 3:05 PM EDT The [address] [address] Mammography Report Signed Patient: SAMREEN LANGE MR#: [id number] : 1950 Acct:[id number] Age/Sex: 73 / F ADM Date: 02/01/24 Loc: MAMMO Attending Dr: STEPHANIE MANN Ordering Physician: STEPHANIE MANN Results: Date of Service: 02/01/24 Follow Up: Procedure(s): MM screening mammo BI Accession Number(s): [id number] cc: STEPHANIE MANN Patient Name: SAMREEN LANGE MR#: [id number] : 1950 Exam Date: 02/01/2024 Ordering Doctor: DR STEPHANIE MANN M.D. RADIOLOGY REPORT PROCEDURE: MM SCREENING MAMMO BI COMPARISON: MM SCREENING MAMMO BI, 01/28/2023. MG MAMM SCREEN MOIRA W CAD, 01/19/2022. MG MAMM SCREEN MOIRA W CAD, 01/15/2021. MG MAMM SCREEN MOIRA W CAD, 12/14/2018. INDICATIONS: Screening Calculator Name NCI Breast Cancer Risk Assessment Tool 5 Year Breast Cancer Risk 1.60% Lifetime Breast Cancer Risk 3.70% Personal Breast Cancer No Personal Ovarian Cancer No Treatments hysterectomy Family Cancers Father with pancreatic cancer at age 68. LOCATION: The [facility] BREAST COMPOSITION: The breasts are heterogeneously dense,which may obscure small masses. FINDINGS: DIAGNOSTIC CATEGORY 1--NEGATIVE. RIGHT BREAST: Only CC view was able to be obtained due to patient condition. No significant suspicious finding. LEFT BREAST: Only CC view was able to be obtained due to patient condition. No significant suspicious finding. RECOMMENDATIONS: ROUTINE MAMMOGRAM AND CLINICAL EVALUATION IN 12 MONTHS. PLEASE NOTE: A NORMAL MAMMOGRAM DOES NOT EXCLUDE THE POSSIBILITY OF BREAST CANCER. A CLINICALLY SUSPICIOUS PALPABLE LUMP SHOULD BE BIOPSIED. Dictated by: Desmond Carey M.D. on 02/02/2024 at 15:03 Approved by: Desmond Carey M.D. on 02/02/2024 at 15:04 Dictated By: Desmond Carey M.D. Signed By: 02/02/24 1505 DD/ 1504 TD/TT: Metal Wire Technician: Procedure Note Radiology, Radiologist, MD - 02/02/2024 [place] [address] Mammography Report Signed Patient: SAMREEN LANGE LMR#: [id number] : 1950Acct:[id number] Age/Sex: 73 / FADM Date: 02/01/24 Loc: MAMMO Attending Dr: STEPHANIE MANN Ordering Physician: STEPHANIE MANNResults: Date of Service: 02/01/24Follow Up: Procedure(s): MM screening mammo BI Accession Number(s): [id number] cc: JOHNATHANSTEPHANIE Camarena Patient Name: SAMREEN LANGE MR#: [id number] : 1950 Exam Date: 02/01/2024 Ordering Doctor: DR STEPHANIE MANN M.D. RADIOLOGY REPORT PROCEDURE: MM SCREENING MAMMO BI COMPARISON: MM SCREENING MAMMO BI, 01/28/2023. MG MAMM SCREEN MOIRA WCAD, 01/19/2022. MG MAMM SCREEN MOIRA W CAD, 01/15/2021. MG MAMM SCREEN MOIRA WCAD, 12/14/2018. INDICATIONS: Screening Calculator Name NCI Breast Cancer Risk Assessment Tool 5 Year Breast Cancer Risk 1.60% Lifetime Breast Cancer Risk 3.70% Personal Breast Cancer No Personal Ovarian Cancer No Treatments hysterectomy Family Cancers Father with pancreatic cancer at age 68. LOCATION: The [facility] BREAST COMPOSITION: The breasts are heterogeneously dense,which may obscure small masses. FINDINGS: DIAGNOSTIC CATEGORY 1--NEGATIVE. RIGHT BREAST: Only CC view was able to be obtained due to patientcondition. No significant suspicious finding. LEFT BREAST: Only CC view was able to be obtained due to patientcondition. No significant suspicious finding. RECOMMENDATIONS: ROUTINE MAMMOGRAM AND CLINICAL EVALUATION IN 12 MONTHS. PLEASE NOTE: A NORMAL MAMMOGRAM DOES NOT EXCLUDE THE POSSIBILITY OFBREAST CANCER. A CLINICALLY SUSPICIOUS PALPABLE LUMP SHOULD BE BIOPSIED. Dictated by: Desmond Carey M.D. on 02/02/2024 at 15:03 Approved by: Desmond Carey M.D. on 02/02/2024 at 15:04 Dictated By: Desmond Carey M.D. Signed By:02/02/24 1505 DD/ 1504 TD/TT: Metal Wire Technician: Stephanie Mann MD IMG BI PROCEDURES Final Result documented in this encounter Visit Diagnoses Not on filedocumented in this encounter
--- OUTSIDE RECORDS SUMMARY | 2024-11-03 09:16 | XMS_ITS | Encounter Summary ---
Author Organization [facility] Address [address] [place] [address] Care Team Providers Care Associate Drafter Name Role Phone Unavailable Primary Care Provider Unavailabl e Encounter Details Date Type Department Care Team (Late st Contact Info) Description 02/09/2023 Abstract [facility] [address] [facility] [address] [place] [id number] Stephanie Brown MD 112 [facility] 110 [place] [address] Social History Tobacco Use Types [...]
--- OUTSIDE RECORDS SUMMARY | 2024-11-03 09:16 | XMS_ITS | Encounter Summary ---
Author Organization [facility] Address [address] [place] [address] Care Team Providers Care Cigar Wrapper Tender Automatic Name Role Phone Unavailable Primary Care Provider Unavailabl e Encounter Details Date Type Department Care Team (Late st Contact Info) Description 09/16/2023 Abstract [facility] [address] [place] [address] [place] [id number] Unallocated, Noms Provider, [address] [place] [address] Social History Tobacco Use Types [...]
--- OUTSIDE RECORDS SUMMARY | 2024-11-03 09:16 | XMS_ITS | Clinical Summary ---
Author Organization [facility] Address [address] [place] [address] Care Team Providers Care College Dean Name Role Phone Unavailable Primary Care Provider Unavailabl e Active Problems Problem Noted Date Diagnosed Date Myalgia 02/03/2023 Social History Tobacco Use Types Packs/Day Years Used Date Smoking Tobacco: Never Assessed Comments Unknown Sex and Gender Information Value Date Recorded Sex Assigned at Not on file Legal Sex Female 6:37 PM EDT Gender Identity Not on file Sexual Orientation Not on file Last Filed Vital Signs Vital Sign Reading Time Taken Comments Blood Pressure 127/78 10/22/2021 12:00 PM EDT Pulse - - Temperature - - Respiratory Rate - - Oxygen Saturation - - Inhaled Oxygen Concentration - - Weight 105 kg (231 lb 3.2 oz) 10/22/2021 12:00 P M EDT Height 172.7 cm (5' 8 ) 10/22/2021 12:00 PM EDT Body Mass Index 35.15 10/22/2021 12:00 PM EDT Plan of Treatment Health Maintenance Due Date Last Done Comments CT Colonography 1950 Colonoscopy 1950 Colorectal Cancer Screening 1950 FIT-DNA 1950 FIT 1950 FOBT 1950 Sigmoidoscopy 1950 Pneumococcal Vaccine: 65+ Ye ars (2 of 2 - PCV) 02/25/2023 02/25/2022 Influenza Vaccine (#1) 2024 2, 02/06/2021, 02/16/2020, Additional history exists Mammogram 02/01/2025 02/02/2024, 10/0 09/2022, 01/29/2023, Additional history exists Procedures Procedure Name Priority Date/Time Associated Diagnosis Comments BI MAMMOGRAM SCREENING BILATERAL 02/02/2024 3:04 PM EDT from Last 3 Months or Most Recently Relevant to Health Maintenance Results * Bilateral screening mammogram (02/02/2024 3:04 PM EDT) Anatomical Region Laterality Modality Breast Bilateral Mammography 02/02/2024 3:04 PM EDT Narrative 02/02/2024 3:05 [place] [address] Mammography Report Signed Patient: SAMREEN LANGE MR#: [id number] : 1950 Acct:[id number] Age/Sex: 73 / F ADM Date: 02/01/24 Loc: MAMMO Attending Dr: STEPHANIE MANN Ordering Physician: STEPHANIE MANN Results: Date of Service: 02/01/24 Follow Up: Procedure(s): MM screening mammo BI Accession Number(s): [id number] cc: STEPHANIE MANN Patient Name: SAMREEN LANGE MR#: [id number] : 1950 Exam Date: 02/01/2024 Ordering Doctor: [...] pancreatic cancer at age 67. LOCATION: The [facility] BREAST COMPOSITION: The breasts are heterogeneously dense,which [...] Signed By: 02/02/24 1505 DD/ 1504 TD/TT: Package Crimper: Procedure Note Radiology, Radiologist, MD - 02/02/2024 [place] [address] Mammography Report Signed Patient: SAMREEN LANGE LMR#: [id number] : 1950Acct:[id number] Age/Sex: 73 / FADM Date: 02/01/24 Loc: MAMMO Attending Dr: STEPHANIE MANN Ordering Physician: Claritza MANNults: Date of Service: 02/01/24Follow Up: Procedure(s): MM screening mammo BI Accession Number(s): [id number] cc: STEPHANIE MANN Patient Name: SAMREEN LANGE MR#: [id number] : 1950 Exam Date: 02/01/2024 Ordering Doctor: [...] pancreatic cancer at age 67. LOCATION: The [facility] BREAST COMPOSITION: The breasts are heterogeneously dense,which [...] M.D. Signed By:02/02/24 1505 DD/ 1504 TD/TT: Package Crimper: Stephanie Mann MD IMG BI PROCEDURES Final Result from Last 3 Months or Most Recently Relevant to Health Maintenance Insurance MEDICAID [place] [employer] MEDICARE
--- OUTSIDE RECORDS SUMMARY | 2024-11-03 09:16 | XMS_ITS | Encounter Summary ---
Author Organization [facility] Address [address] [place] [address] Care Team Providers Care Medical Records Library Professor Name Role Phone Unavailable Primary Care Provider Unavailabl e Encounter Details Date Type Department Care Team (Late st Contact Info) Description 04/12/2023 Abstract [facility] [address] [facility] [address] [place] [phone] Stephanie Brown MD 112 [facility] 110 [place] [address] Social History Tobacco Use Types [...]
--- OUTSIDE RECORDS SUMMARY | 2024-11-03 09:17 | XMS_ITS | Continuity of Care Document ---
Author Organization [facility] Address [address] [place] [id number] Insurance Providers Payer Plan Claims Address Claims Phone Policy Number Group Number Relation Employer Guarantor Name Guarantor Guarantor Address Guarantor Phone [employer] [address] [address], [place] [address] [id number] Honorio LANGE [address] [place] [address] MED[place] [address], [place] [address] [phone] [id number] Honorio LANGE [address] [place] [address] [employer] [address] [address], [place] [address] [phone] [id number] Honorio LANGE [address] [place] [address] Problems Condition ICD9 code ICD10 code SNOMED code Start Date End Date S tatus Hemiplegia and hemiparesis following unspecified cerebrovascular disease affecting left non-dominant side I69.954 12/01/2012 Active Diabetes mellitus due to underlying condition with diabetic neuropathy, unspecified E08.40 01/11/2018 Active Morbid (severe) obesity due to excess calories E66.01 08/25/2023 Ac tive Abnormal posture R29.3 01/06/2017 Acti ve 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 I69.828 10/16/2021 A ctive Inappropriate diet and eating habits Z72.4 10/22/2020 Active Dry eye syndrome of bilateral lacrimal glands H04.123 02/09/2020 Active Other chronic allergic conjunctivitis H10.45 02/09/2020 Active Combined forms of age-related cataract, bilateral H25.813 02/09/2020 Active Allergic rhinitis, unspecified J30.9 03/24/2019 Active Peripheral vascular disease, unspecified I73.9 12/01/2012 Acti ve Dementia in other diseases classified elsewhere without behavioral disturbance F02.80 01/24/2015 Ac tive Depression, unspecified F32.A 12/01/2012 Active Hyperlipidemia, unspecified E78.5 01/24/2015 Active Chronic ischemic heart disease, unspecified I25.9 12/01/2012 Acti ve Primary generalized (osteo)arthritis M15.0 12/01/2012 Active Anemia, unspecified D64.9 12/01/2012 A ctive Other benign neoplasm of skin of unspecified eyelid, including canthus D23.10 02/09/2020 Active Contracture, left hand M24.542 04/03/2016 Active Cognitive communication deficit R41.841 10/05/2022 Active Contracture, unspecified hand M24.549 03/06/2013 Active Personal history of COVID-19 Z86.16 12/25/2021 Active Pain in left elbow M25.522 06/19/2015 Ac tive 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.10 03/22/2024 Active Limitation of activities due to disability Z73.6 03/22/2024 Active Urinary tract infection, site not specified N39.0 09/17/2023 Active Diabetes mellitus due to underlying condition with diabetic neuropathy, unspecified E08.40 09/17/2023 Active End stage renal disease N18.6 07/13/2022 Active Dependence on renal dialysis Z99.2 05/20/2023 Active Chronic kidney disease, stage 4 (severe) N18.4 11/27/2021 Active Gastro-esophageal reflux disease without esophagitis K21.9 01/24/2015 Active Essential (primary) hypertension I10 12/01/2012 Active Hyperlipidemia, unspecified E78.5 01/24/2015 Active Need for assistance with personal care Z74.1 04/03/2016 Active Muscle weakness (generalized) M62.81 01/26/2014 Active Dysphagia, oropharyngeal phase R13.12 07/31/2024 Active Results Test Value / Unit Interpretation Reference Ran ge Blood chemistry[[id number]] Glucose [Mass/volume] in Ser um or Plasma [2345-7] 359 mg/dL N Blood chemistry[] Glucose [Mass/volume] in Ser um or Plasma [2345-7] 116 mg/dL N Blood chemistry[] Glucose [Mass/volume] in Ser um or Plasma [2345-7] 178 mg/dL N Blood chemistry[] Glucose [Mass/volume] in Ser um or Plasma [2345-7] 279 mg/dL N Blood chemistry[] Glucose [Mass/volume] in Ser um or Plasma [2345-7] 323 mg/dL N Blood chemistry[] Glucose [Mass/volume] in Ser um or Plasma [2345-7] 345 mg/dL N Blood chemistry[] Glucose [Mass/volume] in Ser um or Plasma [2345-7] 365 mg/dL N Blood chemistry[] Glucose [Mass/volume] in Ser um or Plasma [2345-7] 362 mg/dL N Blood chemistry[] Glucose [Mass/volume] in Ser um or Plasma [2345-7] 335 mg/dL N Blood chemistry[] Glucose [Mass/volume] in Ser um or Plasma [2345-7] 398 mg/dL N Blood chemistry[] Glucose [Mass/volume] in Ser um or Plasma [2345-7] 159 mg/dL N Blood chemistry[] Glucose [Mass/volume] in Ser um or Plasma [2345-7] 264 mg/dL N Blood chemistry[] Glucose [Mass/volume] in Ser um or Plasma [2345-7] 287 mg/dL N Blood chemistry[] Glucose [Mass/volume] in Ser um or Plasma [2345-7] 185 mg/dL N Blood chemistry[] Glucose [Mass/volume] in Ser um or Plasma [2345-7] 257 mg/dL N Blood chemistry[] Glucose [Mass/volume] in Ser um or Plasma [2345-7] 266 mg/dL N Blood chemistry[] Glucose [Mass/volume] in Ser um or Plasma [2345-7] 308 mg/dL N Blood chemistry[] Glucose [Mass/volume] in Ser um or Plasma [2345-7] 253 mg/dL N Blood chemistry[] Glucose [Mass/volume] in Ser um or Plasma [2345-7] 322 mg/dL N Blood chemistry[] Glucose [Mass/volume] in Ser um or Plasma [2345-7] 355 mg/dL N Blood chemistry[] Glucose [Mass/volume] in Ser um or Plasma [2345-7] 411 mg/dL N Blood chemistry[] Glucose [Mass/volume] in Ser um or Plasma [2345-7] 342 mg/dL N Blood chemistry[] Glucose [Mass/volume] in Ser um or Plasma [2345-7] 315 mg/dL N Blood chemistry[] Glucose [Mass/volume] in Ser um or Plasma [2345-7] 302 mg/dL N Blood chemistry[] Glucose [Mass/volume] in Ser um or Plasma [2345-7] 211 mg/dL N Blood chemistry[] Glucose [Mass/volume] in Ser um or Plasma [2345-7] 207 mg/dL N Blood chemistry[] Glucose [Mass/volume] in Ser um or Plasma [2345-7] 407 mg/dL N Blood chemistry[] Glucose [Mass/volume] in Ser um or Plasma [2345-7] 320 mg/dL N Blood chemistry[] Glucose [Mass/volume] in Ser um or Plasma [2345-7] 151 mg/dL N Blood chemistry[] Glucose [Mass/volume] in Ser um or Plasma [2345-7] 226 mg/dL N Blood chemistry[] Glucose [Mass/volume] in Ser um or Plasma [2345-7] 357 mg/dL N Blood chemistry[] Glucose [Mass/volume] in Ser um or Plasma [2345-7] 400 mg/dL N Blood chemistry[] Glucose [Mass/volume] in Ser um or Plasma [2345-7] 340 mg/dL N Blood chemistry[] Glucose [Mass/volume] in Ser um or Plasma [2345-7] 258 mg/dL N Blood chemistry[] Glucose [Mass/volume] in Ser um or Plasma [2345-7] 266 mg/dL N Blood chemistry[] Glucose [Mass/volume] in Ser um or Plasma [2345-7] 371 mg/dL N Blood chemistry[] Glucose [Mass/volume] in Ser um or Plasma [2345-7] 363 mg/dL N Blood chemistry[] Glucose [Mass/volume] in Ser um or Plasma [2345-7] 296 mg/dL N Blood chemistry[] Glucose [Mass/volume] in Ser um or Plasma [2345-7] 390 mg/dL N Blood chemistry[] Glucose [Mass/volume] in Ser um or Plasma [2345-7] 441 mg/dL N Blood chemistry[] Glucose [Mass/volume] in Ser um or Plasma [2345-7] 191 mg/dL N Blood chemistry[] Glucose [Mass/volume] in Ser um or Plasma [2345-7] 121 mg/dL N Blood chemistry[] Glucose [Mass/volume] in Ser um or Plasma [2345-7] 286 mg/dL N Blood chemistry[] Glucose [Mass/volume] in Ser um or Plasma [2345-7] 227 mg/dL N Blood chemistry[] Glucose [Mass/volume] in Ser um or Plasma [2345-7] 385 mg/dL N Blood chemistry[] Glucose [Mass/volume] in Ser um or Plasma [2345-7] 183 mg/dL N Blood chemistry[] Glucose [Mass/volume] in Ser um or Plasma [2345-7] 216 mg/dL N Blood chemistry[] Glucose [Mass/volume] in Ser um or Plasma [2345-7] 135 mg/dL N Blood chemistry[] Glucose [Mass/volume] in Ser um or Plasma [2345-7] 181 mg/dL N Blood chemistry[] Glucose [Mass/volume] in Ser um or Plasma [2345-7] 243 mg/dL N Blood chemistry[] Glucose [Mass/volume] in Ser um or Plasma [2345-7] 333 mg/dL N Blood chemistry[] Glucose [Mass/volume] in Ser um or Plasma [2345-7] 347 mg/dL N Blood chemistry[] Glucose [Mass/volume] in Ser um or Plasma [2345-7] 333 mg/dL N Blood chemistry[] Glucose [Mass/volume] in Ser um or Plasma [2345-7] 202 mg/dL N Blood chemistry[] Glucose [Mass/volume] in Ser um or Plasma [2345-7] 331 mg/dL N Blood chemistry[] Glucose [Mass/volume] in Ser um or Plasma [2345-7] 216 mg/dL N Blood chemistry[] Glucose [Mass/volume] in Ser um or Plasma [2345-7] 328 mg/dL N Blood chemistry[] Glucose [Mass/volume] in Ser um or Plasma [2345-7] 378 mg/dL N Blood chemistry[] Glucose [Mass/volume] in Ser um or Plasma [2345-7] 333 mg/dL N Blood chemistry[] Glucose [Mass/volume] in Ser um or Plasma [2345-7] 287 mg/dL N Blood chemistry[] Glucose [Mass/volume] in Ser um or Plasma [2345-7] 234 mg/dL N Blood chemistry[] Glucose [Mass/volume] in Ser um or Plasma [2345-7] 333 mg/dL N Blood chemistry[[id number]] Glucose [Mass/volume] in Ser um or Plasma [2345-7] 202 mg/dL N Blood chemistry[] Glucose [Mass/volume] in Ser um or Plasma [2345-7] 343 mg/dL N Blood chemistry[[id number]] Glucose [Mass/volume] in Ser um or Plasma [2345-7] 211 mg/dL N Blood chemistry[] Glucose [Mass/volume] in Ser um or Plasma [2345-7] 285 mg/dL N Blood chemistry[] Glucose [Mass/volume] in Ser um or Plasma [2345-7] 280 mg/dL N Blood chemistry[] Glucose [Mass/volume] in Ser um or Plasma [2345-7] 309 mg/dL N Blood chemistry[] Glucose [Mass/volume] in Ser um or Plasma [2345-7] 210 mg/dL N Blood chemistry[] Glucose [Mass/volume] in Ser um or Plasma [2345-7] 400 mg/dL N Blood chemistry[] Glucose [Mass/volume] in Ser um or Plasma [2345-7] 321 mg/dL N Blood chemistry[] Glucose [Mass/volume] in Ser um or Plasma [2345-7] 209 mg/dL N Blood chemistry[] Glucose [Mass/volume] in Ser um or Plasma [2345-7] 280 mg/dL N Blood chemistry[] Glucose [Mass/volume] in Ser um or Plasma [2345-7] 273 mg/dL N Blood chemistry[] Glucose [Mass/volume] in Ser um or Plasma [2345-7] 159 mg/dL N Blood chemistry[] Glucose [Mass/volume] in Ser um or Plasma [2345-7] 265 mg/dL N Blood chemistry[] Glucose [Mass/volume] in Ser um or Plasma [2345-7] 396 mg/dL N Blood chemistry[] Glucose [Mass/volume] in Ser um or Plasma [2345-7] 355 mg/dL N Blood chemistry[] Glucose [Mass/volume] in Ser um or Plasma [2345-7] 324 mg/dL N Blood chemistry[] Glucose [Mass/volume] in Ser um or Plasma [2345-7] 165 mg/dL N Blood chemistry[] Glucose [Mass/volume] in Ser um or Plasma [2345-7] 274 mg/dL N Blood chemistry[[id number]] Glucose [Mass/volume] in Ser um or Plasma [2345-7] 334 mg/dL N Blood chemistry[] Glucose [Mass/volume] in Ser um or Plasma [2345-7] 390 mg/dL N Blood chemistry[[id number]] Glucose [Mass/volume] in Ser um or Plasma [2345-7] 396 mg/dL N Blood chemistry[] Glucose [Mass/volume] in Ser um or Plasma [2345-7] 313 mg/dL N Blood chemistry[] Glucose [Mass/volume] in Ser um or Plasma [2345-7] 294 mg/dL N Blood chemistry[] Glucose [Mass/volume] in Ser um or Plasma [2345-7] 293 mg/dL N Blood chemistry[] Glucose [Mass/volume] in Ser um or Plasma [2345-7] 258 mg/dL N Blood chemistry[] Glucose [Mass/volume] in Ser um or Plasma [2345-7] 237 mg/dL N Blood chemistry[] Glucose [Mass/volume] in Ser um or Plasma [2345-7] 239 mg/dL N Blood chemistry[] Glucose [Mass/volume] in Ser um or Plasma [2345-7] 236 mg/dL N Blood chemistry[] Glucose [Mass/volume] in Ser um or Plasma [2345-7] 226 mg/dL N Blood chemistry[] Glucose [Mass/volume] in Ser um or Plasma [2345-7] 355 mg/dL N Blood chemistry[] Glucose [Mass/volume] in Ser um or Plasma [2345-7] 144 mg/dL N Blood chemistry[] Glucose [Mass/volume] in Ser um or Plasma [2345-7] 136 mg/dL N Blood chemistry[] Glucose [Mass/volume] in Ser um or Plasma [2345-7] 319 mg/dL N Blood chemistry[] Glucose [Mass/volume] in Ser um or Plasma [2345-7] 358 mg/dL N Blood chemistry[] Glucose [Mass/volume] in Ser um or Plasma [2345-7] 313 mg/dL N Blood chemistry[] Glucose [Mass/volume] in Ser um or Plasma [2345-7] 322 mg/dL N Blood chemistry[] Glucose [Mass/volume] in Ser um or Plasma [2345-7] 156 mg/dL N Blood chemistry[] Glucose [Mass/volume] in Ser um or Plasma [2345-7] 226 mg/dL N Blood chemistry[] Glucose [Mass/volume] in Ser um or Plasma [2345-7] 178 mg/dL N Blood chemistry[] Glucose [Mass/volume] in Ser um or Plasma [2345-7] 148 mg/dL N Blood chemistry[] Glucose [Mass/volume] in Ser um or Plasma [2345-7] 274 mg/dL N Blood chemistry[] Glucose [Mass/volume] in Ser um or Plasma [2345-7] 318 mg/dL N Blood chemistry[] Glucose [Mass/volume] in Ser um or Plasma [2345-7] 181 mg/dL N Blood chemistry[] Glucose [Mass/volume] in Ser um or Plasma [2345-7] 164 mg/dL N Blood chemistry[] Glucose [Mass/volume] in Ser um or Plasma [2345-7] 212 mg/dL N Blood chemistry[] Glucose [Mass/volume] in Ser um or Plasma [2345-7] 188 mg/dL N Blood chemistry[] Glucose [Mass/volume] in Ser um or Plasma [2345-7] 242 mg/dL N Blood chemistry[] Glucose [Mass/volume] in Ser um or Plasma [2345-7] 181 mg/dL N Blood chemistry[] Glucose [Mass/volume] in Ser um or Plasma [2345-7] 235 mg/dL N Blood chemistry[] Glucose [Mass/volume] in Ser um or Plasma [2345-7] 207 mg/dL N Blood chemistry[] Glucose [Mass/volume] in Ser um or Plasma [2345-7] 245 mg/dL N Blood chemistry[] Glucose [Mass/volume] in Ser um or Plasma [2345-7] 236 mg/dL N Blood chemistry[] Glucose [Mass/volume] in Ser um or Plasma [2345-7] 262 mg/dL N Blood chemistry[] Glucose [Mass/volume] in Ser um or Plasma [2345-7] 344 mg/dL N Blood chemistry[] Glucose [Mass/volume] in Ser um or Plasma [2345-7] 335 mg/dL N Blood chemistry[] Glucose [Mass/volume] in Ser um or Plasma [2345-7] 135 mg/dL N Blood chemistry[] Glucose [Mass/volume] in Ser um or Plasma [2345-7] 308 mg/dL N Blood chemistry[] Glucose [Mass/volume] in Ser um or Plasma [2345-7] 260 mg/dL N Blood chemistry[] Glucose [Mass/volume] in Ser um or Plasma [2345-7] 157 mg/dL N Blood chemistry[] Glucose [Mass/volume] in Ser um or Plasma [2345-7] 199 mg/dL N Blood chemistry[] Glucose [Mass/volume] in Ser um or Plasma [2345-7] 223 mg/dL N Blood chemistry[] Glucose [Mass/volume] in Ser um or Plasma [2345-7] 210 mg/dL N Blood chemistry[] Glucose [Mass/volume] in Ser um or Plasma [2345-7] 122 mg/dL N Blood chemistry[] Glucose [Mass/volume] in Ser um or Plasma [2345-7] 228 mg/dL N Blood chemistry[] Glucose [Mass/volume] in Ser um or Plasma [2345-7] 225 mg/dL N Blood chemistry[] Glucose [Mass/volume] in Ser um or Plasma [2345-7] 178 mg/dL N Blood chemistry[] Glucose [Mass/volume] in Ser um or Plasma [2345-7] 254 mg/dL N Blood chemistry[] Glucose [Mass/volume] in Ser um or Plasma [2345-7] 389 mg/dL N Blood chemistry[] Glucose [Mass/volume] in Ser um or Plasma [2345-7] 203 mg/dL N Blood chemistry[] Glucose [Mass/volume] in Ser um or Plasma [2345-7] 287 mg/dL N Blood chemistry[] Glucose [Mass/volume] in Ser um or Plasma [2345-7] 141 mg/dL N Blood chemistry[] Glucose [Mass/volume] in Ser um or Plasma [2345-7] 283 mg/dL N Blood chemistry[] Glucose [Mass/volume] in Ser um or Plasma [2345-7] 153 mg/dL N Blood chemistry[] Glucose [Mass/volume] in Ser um or Plasma [2345-7] 197 mg/dL N Blood chemistry[] Glucose [Mass/volume] in Ser um or Plasma [2345-7] 261 mg/dL N Blood chemistry[] Glucose [Mass/volume] in Ser um or Plasma [2345-7] 274 mg/dL N Blood chemistry[] Glucose [Mass/volume] in Ser um or Plasma [2345-7] 240 mg/dL N Blood chemistry[] Glucose [Mass/volume] in Ser um or Plasma [2345-7] 174 mg/dL N Blood chemistry[] Glucose [Mass/volume] in Ser um or Plasma [2345-7] 300 mg/dL N Blood chemistry[] Glucose [Mass/volume] in Ser um or Plasma [2345-7] 300 mg/dL N Blood chemistry[] Glucose [Mass/volume] in Ser um or Plasma [2345-7] 221 mg/dL N Blood chemistry[] Glucose [Mass/volume] in Ser um or Plasma [2345-7] 263 mg/dL N Blood chemistry[] Glucose [Mass/volume] in Ser um or Plasma [2345-7] 271 mg/dL N Blood chemistry[] Glucose [Mass/volume] in Ser um or Plasma [2345-7] 323 mg/dL N Blood chemistry[] Glucose [Mass/volume] in Ser um or Plasma [2345-7] 340 mg/dL N Blood chemistry[[id number]] Glucose [Mass/volume] in Ser um or Plasma [2345-7] 109 mg/dL N Blood chemistry[] Glucose [Mass/volume] in Ser um or Plasma [2345-7] 256 mg/dL N Blood chemistry[] Glucose [Mass/volume] in Ser um or Plasma [2345-7] 96 mg/dL N Blood chemistry[] Glucose [Mass/volume] in Ser um or Plasma [2345-7] 137 mg/dL N Blood chemistry[] Glucose [Mass/volume] in Ser um or Plasma [2345-7] 226 mg/dL N Blood chemistry[] Glucose [Mass/volume] in Ser um or Plasma [2345-7] 192 mg/dL N Blood chemistry[] Glucose [Mass/volume] in Ser um or Plasma [2345-7] 225 mg/dL N Blood chemistry[] Glucose [Mass/volume] in Ser um or Plasma [2345-7] 210 mg/dL N Blood chemistry[] Glucose [Mass/volume] in Ser um or Plasma [2345-7] 117 mg/dL N Blood chemistry[] Glucose [Mass/volume] in Ser um or Plasma [2345-7] 243 mg/dL N Blood chemistry[] Glucose [Mass/volume] in Ser um or Plasma [2345-7] 292 mg/dL N Blood chemistry[] Glucose [Mass/volume] in Ser um or Plasma [2345-7] 400 mg/dL N Blood chemistry[] Glucose [Mass/volume] in Ser um or Plasma [2345-7] 400 mg/dL N Blood chemistry[] Glucose [Mass/volume] in Ser um or Plasma [2345-7] 175 mg/dL N Blood chemistry[] Glucose [Mass/volume] in Ser um or Plasma [2345-7] 286 mg/dL N Blood chemistry[] Glucose [Mass/volume] in Ser um or Plasma [2345-7] 225 mg/dL N Blood chemistry[] Glucose [Mass/volume] in Ser um or Plasma [2345-7] 272 mg/dL N Blood chemistry[] Glucose [Mass/volume] in Ser um or Plasma [2345-7] 279 mg/dL N Blood chemistry[] Glucose [Mass/volume] in Ser um or Plasma [2345-7] 314 mg/dL N Blood chemistry[] Glucose [Mass/volume] in Ser um or Plasma [2345-7] 302 mg/dL N Blood chemistry[] Glucose [Mass/volume] in Ser um or Plasma [2345-7] 252 mg/dL N Blood chemistry[] Glucose [Mass/volume] in Ser um or Plasma [2345-7] 256 mg/dL N Blood chemistry[] Glucose [Mass/volume] in Ser um or Plasma [2345-7] 258 mg/dL N Blood chemistry[] Glucose [Mass/volume] in Ser um or Plasma [2345-7] 310 mg/dL N Blood chemistry[] Glucose [Mass/volume] in Ser um or Plasma [2345-7] 256 mg/dL N Blood chemistry[] Glucose [Mass/volume] in Ser um or Plasma [2345-7] 332 mg/dL N Blood chemistry[] Glucose [Mass/volume] in Ser um or Plasma [2345-7] 249 mg/dL N Blood chemistry[] Glucose [Mass/volume] in Ser um or Plasma [2345-7] 355 mg/dL N Blood chemistry[] Glucose [Mass/volume] in Ser um or Plasma [2345-7] 350 mg/dL N Blood chemistry[] Glucose [Mass/volume] in Ser um or Plasma [2345-7] 400 mg/dL N Blood chemistry[] Glucose [Mass/volume] in Ser um or Plasma [2345-7] 326 mg/dL N Blood chemistry[] Glucose [Mass/volume] in Ser um or Plasma [2345-7] 195 mg/dL N Blood chemistry[] Glucose [Mass/volume] in Ser um or Plasma [2345-7] 195 mg/dL N Blood chemistry[[id number]] Glucose [Mass/volume] in Ser um or Plasma [2345-7] 308 mg/dL N Blood chemistry[] Glucose [Mass/volume] in Ser um or Plasma [2345-7] 146 mg/dL N Blood chemistry[[id number]] Glucose [Mass/volume] in Ser um or Plasma [2345-7] 111 mg/dL N Blood chemistry[] Glucose [Mass/volume] in Ser um or Plasma [2345-7] 123 mg/dL N Blood chemistry[] Glucose [Mass/volume] in Ser um or Plasma [2345-7] 345 mg/dL N Blood chemistry[] Glucose [Mass/volume] in Ser um or Plasma [2345-7] 226 mg/dL N Blood chemistry[] Glucose [Mass/volume] in Ser um or Plasma [2345-7] 281 mg/dL N Blood chemistry[] Glucose [Mass/volume] in Ser um or Plasma [2345-7] 262 mg/dL N Blood chemistry[] Glucose [Mass/volume] in Ser um or Plasma [2345-7] 388 mg/dL N Blood chemistry[] Glucose [Mass/volume] in Ser um or Plasma [2345-7] 225 mg/dL N Blood chemistry[] Glucose [Mass/volume] in Ser um or Plasma [2345-7] 149 mg/dL N Blood chemistry[] Glucose [Mass/volume] in Ser um or Plasma [2345-7] 218 mg/dL N Blood chemistry[] Glucose [Mass/volume] in Ser um or Plasma [2345-7] 325 mg/dL N Blood chemistry[] Glucose [Mass/volume] in Ser um or Plasma [2345-7] 325 mg/dL N Blood chemistry[] Glucose [Mass/volume] in Ser um or Plasma [2345-7] 325 mg/dL N Blood chemistry[] Glucose [Mass/volume] in Ser um or Plasma [2345-7] 324 mg/dL N Blood chemistry[[id number]] Glucose [Mass/volume] in Ser um or Plasma [2345-7] 179 mg/dL N Blood chemistry[[id number]] Glucose [Mass/volume] in Ser um or Plasma [2345-7] 328 mg/dL N Blood chemistry[] Glucose [Mass/volume] in Ser um or Plasma [2345-7] 328 mg/dL N Blood chemistry[[id number]] Glucose [Mass/volume] in Ser um or Plasma [2345-7] 277 mg/dL N Blood chemistry[] Glucose [Mass/volume] in Ser um or Plasma [2345-7] 304 mg/dL N Blood chemistry[] Glucose [Mass/volume] in Ser um or Plasma [2345-7] 400 mg/dL N Blood chemistry[] Glucose [Mass/volume] in Ser um or Plasma [2345-7] 383 mg/dL N Blood chemistry[] Glucose [Mass/volume] in Ser um or Plasma [2345-7] 418 mg/dL N Blood chemistry[] Glucose [Mass/volume] in Ser um or Plasma [2345-7] 429 mg/dL N Blood chemistry[] Glucose [Mass/volume] in Ser um or Plasma [2345-7] 258 mg/dL N Blood chemistry[] Glucose [Mass/volume] in Ser um or Plasma [2345-7] 264 mg/dL N Blood chemistry[] Glucose [Mass/volume] in Ser um or Plasma [2345-7] 348 mg/dL N Blood chemistry[] Glucose [Mass/volume] in Ser um or Plasma [2345-7] 308 mg/dL N Blood chemistry[] Glucose [Mass/volume] in Ser um or Plasma [2345-7] 172 mg/dL N Blood chemistry[] Glucose [Mass/volume] in Ser um or Plasma [2345-7] 172 mg/dL N Blood chemistry[[id number]] Glucose [Mass/volume] in Ser um or Plasma [2345-7] 256 mg/dL N Blood chemistry[] Glucose [Mass/volume] in Ser um or Plasma [2345-7] 208 mg/dL N Blood chemistry[] Glucose [Mass/volume] in Ser um or Plasma [2345-7] 191 mg/dL N Blood chemistry[] Glucose [Mass/volume] in Ser um or Plasma [2345-7] 200 mg/dL N Blood chemistry[] Glucose [Mass/volume] in Ser um or Plasma [2345-7] 258 mg/dL N Blood chemistry[] Glucose [Mass/volume] in Ser um or Plasma [2345-7] 280 mg/dL N Blood chemistry[] Glucose [Mass/volume] in Ser um or Plasma [2345-7] 308 mg/dL N Blood chemistry[] Glucose [Mass/volume] in Ser um or Plasma [2345-7] 193 mg/dL N Blood chemistry[] Glucose [Mass/volume] in Ser um or Plasma [2345-7] 289 mg/dL N Blood chemistry[] Glucose [Mass/volume] in Ser um or Plasma [2345-7] 193 mg/dL N Blood chemistry[] Glucose [Mass/volume] in Ser um or Plasma [2345-7] 215 mg/dL N Blood chemistry[] Glucose [Mass/volume] in Ser um or Plasma [2345-7] 256 mg/dL N Blood chemistry[] Glucose [Mass/volume] in Ser um or Plasma [2345-7] 342 mg/dL N Blood chemistry[] Glucose [Mass/volume] in Ser um or Plasma [2345-7] 237 mg/dL N Blood chemistry[] Glucose [Mass/volume] in Ser um or Plasma [2345-7] 309 mg/dL N Blood chemistry[] Glucose [Mass/volume] in Ser um or Plasma [2345-7] 256 mg/dL N Blood chemistry[] Glucose [Mass/volume] in Ser um or Plasma [2345-7] 244 mg/dL N Blood chemistry[] Glucose [Mass/volume] in Ser um or Plasma [2345-7] 271 mg/dL N Blood chemistry[] Glucose [Mass/volume] in Ser um or Plasma [2345-7] 138 mg/dL N Glucose [Mass/volume] in Ser um or Plasma [2345-7] 138 mg/dL N Blood chemistry[] Glucose [Mass/volume] in Ser um or Plasma [2345-7] 248 mg/dL N Blood chemistry[] Glucose [Mass/volume] in Ser um or Plasma [2345-7] 200 mg/dL N Blood chemistry[] Glucose [Mass/volume] in Ser um or Plasma [2345-7] 164 mg/dL N Blood chemistry[] Glucose [Mass/volume] in Ser um or Plasma [2345-7] 263 mg/dL N Blood chemistry[] Glucose [Mass/volume] in Ser um or Plasma [2345-7] 331 mg/dL N Blood chemistry[] Glucose [Mass/volume] in Ser um or Plasma [2345-7] 323 mg/dL N Blood chemistry[] Glucose [Mass/volume] in Ser um or Plasma [2345-7] 289 mg/dL N Blood chemistry[] Glucose [Mass/volume] in Ser um or Plasma [2345-7] 130 mg/dL N Blood chemistry[] Glucose [Mass/volume] in Ser um or Plasma [2345-7] 236 mg/dL N Blood chemistry[] Glucose [Mass/volume] in Ser um or Plasma [2345-7] 182 mg/dL N Blood chemistry[] Glucose [Mass/volume] in Ser um or Plasma [2345-7] 286 mg/dL N Blood chemistry[] Glucose [Mass/volume] in Ser um or Plasma [2345-7] 244 mg/dL N Blood chemistry[] Glucose [Mass/volume] in Ser um or Plasma [2345-7] 385 mg/dL N Blood chemistry[] Glucose [Mass/volume] in Ser um or Plasma [2345-7] 276 mg/dL N Blood chemistry[] Glucose [Mass/volume] in Ser um or Plasma [2345-7] 252 mg/dL N Blood chemistry[[id number]] Glucose [Mass/volume] in Ser um or Plasma [2345-7] 334 mg/dL N Blood chemistry[[id number]] Glucose [Mass/volume] in Ser um or Plasma [2345-7] 345 mg/dL N Blood chemistry[] Glucose [Mass/volume] in Ser um or Plasma [2345-7] 293 mg/dL N Blood chemistry[] Glucose [Mass/volume] in Ser um or Plasma [2345-7] 147 mg/dL N Blood chemistry[] Glucose [Mass/volume] in Ser um or Plasma [2345-7] 132 mg/dL N Blood chemistry[] Glucose [Mass/volume] in Ser um or Plasma [2345-7] 234 mg/dL N Blood chemistry[] Glucose [Mass/volume] in Ser um or Plasma [2345-7] 223 mg/dL N Blood chemistry[] Glucose [Mass/volume] in Ser um or Plasma [2345-7] 242 mg/dL N Blood chemistry[] Glucose [Mass/volume] in Ser um or Plasma [2345-7] 211 mg/dL N Blood chemistry[] Glucose [Mass/volume] in Ser um or Plasma [2345-7] 264 mg/dL N Blood chemistry[] Glucose [Mass/volume] in Ser um or Plasma [2345-7] 201 mg/dL N Blood chemistry[] Glucose [Mass/volume] in Ser um or Plasma [2345-7] 201 mg/dL N Blood chemistry[] Glucose [Mass/volume] in Ser um or Plasma [2345-7] 183 mg/dL N Blood chemistry[] Glucose [Mass/volume] in Ser um or Plasma [2345-7] 287 mg/dL N Blood chemistry[] Glucose [Mass/volume] in Ser um or Plasma [2345-7] 174 mg/dL N Blood chemistry[] Glucose [Mass/volume] in Ser um or Plasma [2345-7] 126 mg/dL N Blood chemistry[] Glucose [Mass/volume] in Ser um or Plasma [2345-7] 239 mg/dL N Blood chemistry[] Glucose [Mass/volume] in Ser um or Plasma [2345-7] 382 mg/dL N Blood chemistry[] Glucose [Mass/volume] in Ser um or Plasma [2345-7] 218 mg/dL N Blood chemistry[] Glucose [Mass/volume] in Ser um or Plasma [2345-7] 215 mg/dL N Blood chemistry[] Glucose [Mass/volume] in Ser um or Plasma [2345-7] 162 mg/dL N Blood chemistry[] Glucose [Mass/volume] in Ser um or Plasma [2345-7] 222 mg/dL N Glucose [Mass/volume] in Ser um or Plasma [2345-7] 222 mg/dL N Blood chemistry[] Glucose [Mass/volume] in Ser um or Plasma [2345-7] 172 mg/dL N Blood chemistry[] Glucose [Mass/volume] in Ser um or Plasma [2345-7] 215 mg/dL N Blood chemistry[] Glucose [Mass/volume] in Ser um or Plasma [2345-7] 203 mg/dL N Blood chemistry[] Glucose [Mass/volume] in Ser um or Plasma [2345-7] 231 mg/dL N Blood chemistry[] Glucose [Mass/volume] in Ser um or Plasma [2345-7] 263 mg/dL N Blood chemistry[] Glucose [Mass/volume] in Ser um or Plasma [2345-7] 235 mg/dL N Blood chemistry[] Glucose [Mass/volume] in Ser um or Plasma [2345-7] 263 mg/dL N Blood chemistry[] Glucose [Mass/volume] in Ser um or Plasma [2345-7] 283 mg/dL N Blood chemistry[] Glucose [Mass/volume] in Ser um or Plasma [2345-7] 380 mg/dL N Blood chemistry[] Glucose [Mass/volume] in Ser um or Plasma [2345-7] 229 mg/dL N Blood chemistry[] Glucose [Mass/volume] in Ser um or Plasma [2345-7] 212 mg/dL N Blood chemistry[] Glucose [Mass/volume] in Ser um or Plasma [2345-7] 294 mg/dL N Blood chemistry[] Glucose [Mass/volume] in Ser um or Plasma [2345-7] 262 mg/dL N Blood chemistry[] Glucose [Mass/volume] in Ser um or Plasma [2345-7] 205 mg/dL N Blood chemistry[] Glucose [Mass/volume] in Ser um or Plasma [2345-7] 170 mg/dL N Blood chemistry[] Glucose [Mass/volume] in Ser um or Plasma [2345-7] 337 mg/dL N Glucose [Mass/volume] in Ser um or Plasma [2345-7] 337 mg/dL N Blood chemistry[] Glucose [Mass/volume] in Ser um or Plasma [2345-7] 188 mg/dL N Blood chemistry[] Glucose [Mass/volume] in Ser um or Plasma [2345-7] 212 mg/dL N Blood chemistry[] Glucose [Mass/volume] in Ser um or Plasma [2345-7] 308 mg/dL N Blood chemistry[] Glucose [Mass/volume] in Ser um or Plasma [2345-7] 247 mg/dL N Blood chemistry[] Glucose [Mass/volume] in Ser um or Plasma [2345-7] 188 mg/dL N Blood chemistry[] Glucose [Mass/volume] in Ser um or Plasma [2345-7] 236 mg/dL N Blood chemistry[] Glucose [Mass/volume] in Ser um or Plasma [2345-7] 242 mg/dL N Blood chemistry[] Glucose [Mass/volume] in Ser um or Plasma [2345-7] 313 mg/dL N Blood chemistry[] Glucose [Mass/volume] in Ser um or Plasma [2345-7] 219 mg/dL N Blood chemistry[] Glucose [Mass/volume] in Ser um or Plasma [2345-7] 219 mg/dL N Blood chemistry[] Glucose [Mass/volume] in Ser um or Plasma [2345-7] 285 mg/dL N Blood chemistry[] Glucose [Mass/volume] in Ser um or Plasma [2345-7] 204 mg/dL N Blood chemistry[] Glucose [Mass/volume] in Ser um or Plasma [2345-7] 184 mg/dL N Blood chemistry[] Glucose [Mass/volume] in Ser um or Plasma [2345-7] 120 mg/dL N Blood chemistry[] Glucose [Mass/volume] in Ser um or Plasma [2345-7] 201 mg/dL N Blood chemistry[] Glucose [Mass/volume] in Ser um or Plasma [2345-7] 331 mg/dL N Blood chemistry[] Glucose [Mass/volume] in Ser um or Plasma [2345-7] 217 mg/dL N Blood chemistry[] Glucose [Mass/volume] in Ser um or Plasma [2345-7] 106 mg/dL N Blood chemistry[] Glucose [Mass/volume] in Ser um or Plasma [2345-7] 131 mg/dL N Blood chemistry[] Glucose [Mass/volume] in Ser um or Plasma [2345-7] 147 mg/dL N Blood chemistry[] Glucose [Mass/volume] in Ser um or Plasma [2345-7] 285 mg/dL N Blood chemistry[] Glucose [Mass/volume] in Ser um or Plasma [2345-7] 184 mg/dL N Blood chemistry[] Glucose [Mass/volume] in Ser um or Plasma [2345-7] 375 mg/dL N Blood chemistry[] Glucose [Mass/volume] in Ser um or Plasma [2345-7] 388 mg/dL N Blood chemistry[] Glucose [Mass/volume] in Ser um or Plasma [2345-7] 381 mg/dL N Blood chemistry[] Glucose [Mass/volume] in Ser um or Plasma [2345-7] 259 mg/dL N Blood chemistry[] Glucose [Mass/volume] in Ser um or Plasma [2345-7] 290 mg/dL N Blood chemistry[] Glucose [Mass/volume] in Ser um or Plasma [2345-7] 371 mg/dL N Blood chemistry[] Glucose [Mass/volume] in Ser um or Plasma [2345-7] 357 mg/dL N Blood chemistry[] Glucose [Mass/volume] in Ser um or Plasma [2345-7] 336 mg/dL N Blood chemistry[] Glucose [Mass/volume] in Ser um or Plasma [2345-7] 239 mg/dL N Blood chemistry[] Glucose [Mass/volume] in Ser um or Plasma [2345-7] 216 mg/dL N Blood chemistry[] Glucose [Mass/volume] in Ser um or Plasma [2345-7] 142 mg/dL N Blood chemistry[] Glucose [Mass/volume] in Ser um or Plasma [2345-7] 185 mg/dL N Blood chemistry[] Glucose [Mass/volume] in Ser um or Plasma [2345-7] 265 mg/dL N Blood chemistry[] Glucose [Mass/volume] in Ser um or Plasma [2345-7] 372 mg/dL N Blood chemistry[] Glucose [Mass/volume] in Ser um or Plasma [2345-7] 216 mg/dL N Blood chemistry[] Glucose [Mass/volume] in Ser um or Plasma [2345-7] 157 mg/dL N Blood chemistry[] Glucose [Mass/volume] in Ser um or Plasma [2345-7] 254 mg/dL N Blood chemistry[] Glucose [Mass/volume] in Ser um or Plasma [2345-7] 136 mg/dL N Blood chemistry[] Glucose [Mass/volume] in Ser um or Plasma [2345-7] 255 mg/dL N Blood chemistry[] Glucose [Mass/volume] in Ser um or Plasma [2345-7] 168 mg/dL N Blood chemistry[] Glucose [Mass/volume] in Ser um or Plasma [2345-7] 168 mg/dL N Glucose [Mass/volume] in Ser um or Plasma [2345-7] 168 mg/dL N Blood chemistry[] Glucose [Mass/volume] in Ser um or Plasma [2345-7] 241 mg/dL N Blood chemistry[] Glucose [Mass/volume] in Ser um or Plasma [2345-7] 284 mg/dL N Blood chemistry[] Glucose [Mass/volume] in Ser um or Plasma [2345-7] 277 mg/dL N Blood chemistry[] Glucose [Mass/volume] in Ser um or Plasma [2345-7] 150 mg/dL N Blood chemistry[] Glucose [Mass/volume] in Ser um or Plasma [2345-7] 251 mg/dL N Blood chemistry[] Glucose [Mass/volume] in Ser um or Plasma [2345-7] 379 mg/dL N Blood chemistry[] Glucose [Mass/volume] in Ser um or Plasma [2345-7] 395 mg/dL N Blood chemistry[] Glucose [Mass/volume] in Ser um or Plasma [2345-7] 348 mg/dL N Blood chemistry[] Glucose [Mass/volume] in Ser um or Plasma [2345-7] 161 mg/dL N Blood chemistry[] Glucose [Mass/volume] in Ser um or Plasma [2345-7] 375 mg/dL N Blood chemistry[] Glucose [Mass/volume] in Ser um or Plasma [2345-7] 193 mg/dL N Blood chemistry[] Glucose [Mass/volume] in Ser um or Plasma [2345-7] 295 mg/dL N Blood chemistry[] Glucose [Mass/volume] in Ser um or Plasma [2345-7] 335 mg/dL N Blood chemistry[] Glucose [Mass/volume] in Ser um or Plasma [2345-7] 386 mg/dL N Blood chemistry[] Glucose [Mass/volume] in Ser um or Plasma [2345-7] 174 mg/dL N Blood chemistry[] Glucose [Mass/volume] in Ser um or Plasma [2345-7] 225 mg/dL N Blood chemistry[] Glucose [Mass/volume] in Ser um or Plasma [2345-7] 205 mg/dL N Blood chemistry[] Glucose [Mass/volume] in Ser um or Plasma [2345-7] 221 mg/dL N Blood chemistry[[id number]] Glucose [Mass/volume] in Ser um or Plasma [2345-7] 282 mg/dL N Blood chemistry[] Glucose [Mass/volume] in Ser um or Plasma [2345-7] 365 mg/dL N Blood chemistry[[id number]] Glucose [Mass/volume] in Ser um or Plasma [2345-7] 375 mg/dL N Blood chemistry[] Glucose [Mass/volume] in Ser um or Plasma [2345-7] 397 mg/dL N Blood chemistry[] Glucose [Mass/volume] in Ser um or Plasma [2345-7] 344 mg/dL N Blood chemistry[] Glucose [Mass/volume] in Ser um or Plasma [2345-7] 337 mg/dL N Blood chemistry[] Glucose [Mass/volume] in Ser um or Plasma [2345-7] 190 mg/dL N Blood chemistry[] Glucose [Mass/volume] in Ser um or Plasma [2345-7] 250 mg/dL N Blood chemistry[] Glucose [Mass/volume] in Ser um or Plasma [2345-7] 349 mg/dL N Blood chemistry[] Glucose [Mass/volume] in Ser um or Plasma [2345-7] 343 mg/dL N Blood chemistry[] Glucose [Mass/volume] in Ser um or Plasma [2345-7] 216 mg/dL N Blood chemistry[] Glucose [Mass/volume] in Ser um or Plasma [2345-7] 176 mg/dL N Blood chemistry[] Glucose [Mass/volume] in Ser um or Plasma [2345-7] 176 mg/dL N Blood chemistry[] Glucose [Mass/volume] in Ser um or Plasma [2345-7] 249 mg/dL N Blood chemistry[] Glucose [Mass/volume] in Ser um or Plasma [2345-7] 182 mg/dL N Blood chemistry[] Glucose [Mass/volume] in Ser um or Plasma [2345-7] 380 mg/dL N Blood chemistry[] Glucose [Mass/volume] in Ser um or Plasma [2345-7] 211 mg/dL N Blood chemistry[] Glucose [Mass/volume] in Ser um or Plasma [2345-7] 211 mg/dL N Blood chemistry[] Glucose [Mass/volume] in Ser um or Plasma [2345-7] 337 mg/dL N Blood chemistry[] Glucose [Mass/volume] in Ser um or Plasma [2345-7] 257 mg/dL N Blood chemistry[] Glucose [Mass/volume] in Ser um or Plasma [2345-7] 260 mg/dL N Blood chemistry[] Glucose [Mass/volume] in Ser um or Plasma [2345-7] 178 mg/dL N Blood chemistry[] Glucose [Mass/volume] in Ser um or Plasma [2345-7] 274 mg/dL N Blood chemistry[] Glucose [Mass/volume] in Ser um or Plasma [2345-7] 279 mg/dL N Blood chemistry[] Glucose [Mass/volume] in Ser um or Plasma [2345-7] 263 mg/dL N Blood chemistry[] Glucose [Mass/volume] in Ser um or Plasma [2345-7] 273 mg/dL N Blood chemistry[] Glucose [Mass/volume] in Ser um or Plasma [2345-7] 332 mg/dL N Glucose [Mass/volume] in Ser um or Plasma [2345-7] 332 mg/dL N Blood chemistry[] Glucose [Mass/volume] in Ser um or Plasma [2345-7] 218 mg/dL N Blood chemistry[] Glucose [Mass/volume] in Ser um or Plasma [2345-7] 195 mg/dL N Blood chemistry[] Glucose [Mass/volume] in Ser um or Plasma [2345-7] 206 mg/dL N Blood chemistry[] Glucose [Mass/volume] in Ser um or Plasma [2345-7] 204 mg/dL N Blood chemistry[] Glucose [Mass/volume] in Ser um or Plasma [2345-7] 298 mg/dL N Blood chemistry[] Glucose [Mass/volume] in Ser um or Plasma [2345-7] 137 mg/dL N Blood chemistry[] Glucose [Mass/volume] in Ser um or Plasma [2345-7] 196 mg/dL N Blood chemistry[] Glucose [Mass/volume] in Ser um or Plasma [2345-7] 198 mg/dL N Blood chemistry[] Glucose [Mass/volume] in Ser um or Plasma [2345-7] 338 mg/dL N Blood chemistry[] Glucose [Mass/volume] in Ser um or Plasma [2345-7] 163 mg/dL N Blood chemistry[] Glucose [Mass/volume] in Ser um or Plasma [2345-7] 313 mg/dL N Blood chemistry[] Glucose [Mass/volume] in Ser um or Plasma [2345-7] 349 mg/dL N Blood chemistry[] Glucose [Mass/volume] in Ser um or Plasma [2345-7] 368 mg/dL N Blood chemistry[] Glucose [Mass/volume] in Ser um or Plasma [2345-7] 275 mg/dL N Blood chemistry[] Glucose [Mass/volume] in Ser um or Plasma [2345-7] 271 mg/dL N Blood chemistry[] Glucose [Mass/volume] in Ser um or Plasma [2345-7] 330 mg/dL N Blood chemistry[] Glucose [Mass/volume] in Ser um or Plasma [2345-7] 330 mg/dL N Blood chemistry[] Glucose [Mass/volume] in Ser um or Plasma [2345-7] 160 mg/dL N Blood chemistry[] Glucose [Mass/volume] in Ser um or Plasma [2345-7] 233 mg/dL N Blood chemistry[] Glucose [Mass/volume] in Ser um or Plasma [2345-7] 251 mg/dL N Blood chemistry[] Glucose [Mass/volume] in Ser um or Plasma [2345-7] 181 mg/dL N Blood chemistry[] Glucose [Mass/volume] in Ser um or Plasma [2345-7] 191 mg/dL N Blood chemistry[] Glucose [Mass/volume] in Ser um or Plasma [2345-7] 322 mg/dL N Glucose [Mass/volume] in Ser um or Plasma [2345-7] 322 mg/dL N Blood chemistry[] Glucose [Mass/volume] in Ser um or Plasma [2345-7] 282 mg/dL N Blood chemistry[] Glucose [Mass/volume] in Ser um or Plasma [2345-7] 367 mg/dL N Blood chemistry[] Glucose [Mass/volume] in Ser um or Plasma [2345-7] 192 mg/dL N Blood chemistry[] Glucose [Mass/volume] in Ser um or Plasma [2345-7] 298 mg/dL N Blood chemistry[] Glucose [Mass/volume] in Ser um or Plasma [2345-7] 240 mg/dL N Blood chemistry[] Glucose [Mass/volume] in Ser um or Plasma [2345-7] 220 mg/dL N Blood chemistry[] Glucose [Mass/volume] in Ser um or Plasma [2345-7] 220 mg/dL N Blood chemistry[] Glucose [Mass/volume] in Ser um or Plasma [2345-7] 220 mg/dL N Blood chemistry[] Glucose [Mass/volume] in Ser um or Plasma [2345-7] 347 mg/dL N Blood chemistry[] Glucose [Mass/volume] in Ser um or Plasma [2345-7] 285 mg/dL N Blood chemistry[] Glucose [Mass/volume] in Ser um or Plasma [2345-7] 227 mg/dL N Blood chemistry[] Glucose [Mass/volume] in Ser um or Plasma [2345-7] 242 mg/dL N Blood chemistry[] Glucose [Mass/volume] in Ser um or Plasma [2345-7] 165 mg/dL N Blood chemistry[] Glucose [Mass/volume] in Ser um or Plasma [2345-7] 215 mg/dL N Blood chemistry[] Glucose [Mass/volume] in Ser um or Plasma [2345-7] 232 mg/dL N Blood chemistry[] Glucose [Mass/volume] in Ser um or Plasma [2345-7] 232 mg/dL N Blood chemistry[] Glucose [Mass/volume] in Ser um or Plasma [2345-7] 157 mg/dL N Blood chemistry[] Glucose [Mass/volume] in Ser um or Plasma [2345-7] 238 mg/dL N Blood chemistry[[id number]] Glucose [Mass/volume] in Ser um or Plasma [2345-7] 245 mg/dL N Blood chemistry[[id number]] Glucose [Mass/volume] in Ser um or Plasma [2345-7] 177 mg/dL N Blood chemistry[] Glucose [Mass/volume] in Ser um or Plasma [2345-7] 292 mg/dL N Blood chemistry[[id number]] Glucose [Mass/volume] in Ser um or Plasma [2345-7] 278 mg/dL N Blood chemistry[] Glucose [Mass/volume] in Ser um or Plasma [2345-7] 216 mg/dL N Blood chemistry[] Glucose [Mass/volume] in Ser um or Plasma [2345-7] 263 mg/dL N Blood chemistry[] Glucose [Mass/volume] in Ser um or Plasma [2345-7] 374 mg/dL N Blood chemistry[] Glucose [Mass/volume] in Ser um or Plasma [2345-7] 374 mg/dL N Blood chemistry[] Glucose [Mass/volume] in Ser um or Plasma [2345-7] 393 mg/dL N COVID-19 Test Viral Antigen null flavor [null] See note NEG COVID-19 Test Viral Antigen Blood chemistry[] Glucose [Mass/volume] in Ser um or Plasma [2345-7] 302 mg/dL N Blood chemistry[[id number]] Glucose [Mass/volume] in Ser um or Plasma [2345-7] 206 mg/dL N Blood chemistry[[id number]] Glucose [Mass/volume] in Ser um or Plasma [2345-7] 309 mg/dL N Blood chemistry[[id number]] Glucose [Mass/volume] in Ser um or Plasma [2345-7] 309 mg/dL N Blood chemistry[[id number]] Glucose [Mass/volume] in Ser um or Plasma [2345-7] 347 mg/dL N Glucose [Mass/volume] in Ser um or Plasma [2345-7] 244 mg/dL N Blood chemistry[[id number]] Glucose [Mass/volume] in Ser um or Plasma [2345-7] 331 mg/dL N Blood chemistry[[id number]] Glucose [Mass/volume] in Ser um or Plasma [2345-7] 237 mg/dL N Glucose [Mass/volume] in Ser um or Plasma [2345-7] 237 mg/dL N Blood chemistry[[id number]] Glucose [Mass/volume] in Ser um or Plasma [2345-7] 148 mg/dL N COVID-19 Test Viral Antigen null flavor [null] See note NEG COVID-19 Test Viral Antigen Blood chemistry[[id number]] Glucose [Mass/volume] in Ser um or Plasma [2345-7] 343 mg/dL N Blood chemistry[[id number]] Glucose [Mass/volume] in Ser um or Plasma [2345-7] 191 mg/dL N Blood chemistry[[id number]] Glucose [Mass/volume] in Ser um or Plasma [2345-7] 354 mg/dL N Blood chemistry[[id number]] Glucose [Mass/volume] in Ser um or Plasma [2345-7] 262 mg/dL N Blood chemistry[[id number]] Glucose [Mass/volume] in Ser um or Plasma [2345-7] 262 mg/dL N Blood chemistry[[id number]] Glucose [Mass/volume] in Ser um or Plasma [2345-7] 144 mg/dL N Blood chemistry[[id number]] Glucose [Mass/volume] in Ser um or Plasma [2345-7] 164 mg/dL N COVID-19 Test Viral Antigen null flavor [null] See note NEG COVID-19 Test Viral Antigen Blood chemistry[[id number]] Glucose [Mass/volume] in Ser um or Plasma [2345-7] 207 mg/dL N Blood chemistry[[id number]] Glucose [Mass/volume] in Ser um or Plasma [2345-7] 220 mg/dL N Blood chemistry[[id number]] Glucose [Mass/volume] in Ser um or Plasma [2345-7] 160 mg/dL N Blood chemistry[[id number]] Glucose [Mass/volume] in Ser um or Plasma [2345-7] 145 mg/dL N Blood chemistry[[id number]] Glucose [Mass/volume] in Ser um or Plasma [2345-7] 189 mg/dL N Blood chemistry[[id number]] Glucose [Mass/volume] in Ser um or Plasma [2345-7] 257 mg/dL N Blood chemistry[[id number]] Glucose [Mass/volume] in Ser um or Plasma [2345-7] 268 mg/dL N Blood chemistry[] Glucose [Mass/volume] in Ser um or Plasma [2345-7] 130 mg/dL N Blood chemistry[] Glucose [Mass/volume] in Ser um or Plasma [2345-7] 130 mg/dL N Blood chemistry[] Glucose [Mass/volume] in Ser um or Plasma [2345-7] 173 mg/dL N Blood chemistry[] Glucose [Mass/volume] in Ser um or Plasma [2345-7] 200 mg/dL N Blood chemistry[] Glucose [Mass/volume] in Ser um or Plasma [2345-7] 137 mg/dL N Blood chemistry[] Glucose [Mass/volume] in Ser um or Plasma [2345-7] 269 mg/dL N Blood chemistry[] Glucose [Mass/volume] in Ser um or Plasma [2345-7] 241 mg/dL N Blood chemistry[] Glucose [Mass/volume] in Ser um or Plasma [2345-7] 223 mg/dL N Blood chemistry[] Glucose [Mass/volume] in Ser um or Plasma [2345-7] 205 mg/dL N Blood chemistry[] Glucose [Mass/volume] in Ser um or Plasma [2345-7] 147 mg/dL N Glucose [Mass/volume] in Ser um or Plasma [2345-7] 147 mg/dL N Blood chemistry[] Glucose [Mass/volume] in Ser um or Plasma [2345-7] 178 mg/dL N Blood chemistry[] Glucose [Mass/volume] in Ser um or Plasma [2345-7] 183 mg/dL N Blood chemistry[] Glucose [Mass/volume] in Ser um or Plasma [2345-7] 97 mg/dL N Blood chemistry[] Glucose [Mass/volume] in Ser um or Plasma [2345-7] 197 mg/dL N Blood chemistry[] Glucose [Mass/volume] in Ser um or Plasma [2345-7] 260 mg/dL N Blood chemistry[] Glucose [Mass/volume] in Ser um or Plasma [2345-7] 140 mg/dL N Blood chemistry[] Glucose [Mass/volume] in Ser um or Plasma [2345-7] 355 mg/dL N Blood chemistry[] Glucose [Mass/volume] in Ser um or Plasma [2345-7] 326 mg/dL N Blood chemistry[] Glucose [Mass/volume] in Ser um or Plasma [2345-7] 303 mg/dL N Blood chemistry[] Glucose [Mass/volume] in Ser um or Plasma [2345-7] 250 mg/dL N Blood chemistry[] Glucose [Mass/volume] in Ser um or Plasma [2345-7] 250 mg/dL N Blood chemistry[] Glucose [Mass/volume] in Ser um or Plasma [2345-7] 316 mg/dL N Glucose [Mass/volume] in Ser um or Plasma [2345-7] 316 mg/dL N Blood chemistry[] Glucose [Mass/volume] in Ser um or Plasma [2345-7] 201 mg/dL N Blood chemistry[] Glucose [Mass/volume] in Ser um or Plasma [2345-7] 244 mg/dL N Blood chemistry[] Glucose [Mass/volume] in Ser um or Plasma [2345-7] 200 mg/dL N Glucose [Mass/volume] in Ser um or Plasma [2345-7] 200 mg/dL N Blood chemistry[] Glucose [Mass/volume] in Ser um or Plasma [2345-7] 298 mg/dL N Blood chemistry[] Glucose [Mass/volume] in Ser um or Plasma [2345-7] 298 mg/dL N Blood chemistry[] Glucose [Mass/volume] in Ser um or Plasma [2345-7] 325 mg/dL N Blood chemistry[] Glucose [Mass/volume] in Ser um or Plasma [2345-7] 208 mg/dL N Blood chemistry[] Glucose [Mass/volume] in Ser um or Plasma [2345-7] 234 mg/dL N Blood chemistry[] Glucose [Mass/volume] in Ser um or Plasma [2345-7] 202 mg/dL N Blood chemistry[] Glucose [Mass/volume] in Ser um or Plasma [2345-7] 303 mg/dL N Blood chemistry[] Glucose [Mass/volume] in Ser um or Plasma [2345-7] 161 mg/dL N Blood chemistry[] Glucose [Mass/volume] in Ser um or Plasma [2345-7] 198 mg/dL N Blood chemistry[] Glucose [Mass/volume] in Ser um or Plasma [2345-7] 198 mg/dL N Blood chemistry[] Glucose [Mass/volume] in Ser um or Plasma [2345-7] 337 mg/dL N Blood chemistry[] Glucose [Mass/volume] in Ser um or Plasma [2345-7] 314 mg/dL N Blood chemistry[] Glucose [Mass/volume] in Ser um or Plasma [2345-7] 335 mg/dL N Blood chemistry[] Glucose [Mass/volume] in Ser um or Plasma [2345-7] 207 mg/dL N Blood chemistry[] Glucose [Mass/volume] in Ser um or Plasma [2345-7] 398 mg/dL N Blood chemistry[] Glucose [Mass/volume] in Ser um or Plasma [2345-7] 314 mg/dL N Blood chemistry[] Glucose [Mass/volume] in Ser um or Plasma [2345-7] 263 mg/dL N Blood chemistry[] Glucose [Mass/volume] in Ser um or Plasma [2345-7] 203 mg/dL N Glucose [Mass/volume] in Ser um or Plasma [2345-7] 203 mg/dL N Blood chemistry[] Glucose [Mass/volume] in Ser um or Plasma [2345-7] 248 mg/dL N Blood chemistry[] Glucose [Mass/volume] in Ser um or Plasma [2345-7] 248 mg/dL N Blood chemistry[] Glucose [Mass/volume] in Ser um or Plasma [2345-7] 248 mg/dL N Blood chemistry[] Glucose [Mass/volume] in Ser um or Plasma [2345-7] 325 mg/dL N Blood chemistry[] Glucose [Mass/volume] in Ser um or Plasma [2345-7] 125 mg/dL N Blood chemistry[] Glucose [Mass/volume] in Ser um or Plasma [2345-7] 226 mg/dL N Blood chemistry[] Glucose [Mass/volume] in Ser um or Plasma [2345-7] 226 mg/dL N Blood chemistry[] Glucose [Mass/volume] in Ser um or Plasma [2345-7] 124 mg/dL N Blood chemistry[] Glucose [Mass/volume] in Ser um or Plasma [2345-7] 131 mg/dL N Glucose [Mass/volume] in Ser um or Plasma [2345-7] 131 mg/dL N Blood chemistry[] Glucose [Mass/volume] in Ser um or Plasma [2345-7] 206 mg/dL N Blood chemistry[] Glucose [Mass/volume] in Ser um or Plasma [2345-7] 282 mg/dL N Blood chemistry[] Glucose [Mass/volume] in Ser um or Plasma [2345-7] 252 mg/dL N Blood chemistry[] Glucose [Mass/volume] in Ser um or Plasma [2345-7] 173 mg/dL N Blood chemistry[] Glucose [Mass/volume] in Ser um or Plasma [2345-7] 173 mg/dL N Blood chemistry[] Glucose [Mass/volume] in Ser um or Plasma [2345-7] 326 mg/dL N Blood chemistry[] Glucose [Mass/volume] in Ser um or Plasma [2345-7] 326 mg/dL N Blood chemistry[] Glucose [Mass/volume] in Ser um or Plasma [2345-7] 374 mg/dL N Blood chemistry[] Glucose [Mass/volume] in Ser um or Plasma [2345-7] 223 mg/dL N Blood chemistry[] Glucose [Mass/volume] in Ser um or Plasma [2345-7] 165 mg/dL N Blood chemistry[[id number]] Glucose [Mass/volume] in Ser um or Plasma [2345-7] 295 mg/dL N Blood chemistry[[id number]] Glucose [Mass/volume] in Ser um or Plasma [2345-7] 295 mg/dL N Blood chemistry[] Glucose [Mass/volume] in Ser um or Plasma [2345-7] 263 mg/dL N Blood chemistry[] Glucose [Mass/volume] in Ser um or Plasma [2345-7] 168 mg/dL N Blood chemistry[] Glucose [Mass/volume] in Ser um or Plasma [2345-7] 168 mg/dL N Blood chemistry[[id number]] Glucose [Mass/volume] in Ser um or Plasma [2345-7] 304 mg/dL N Blood chemistry[] Glucose [Mass/volume] in Ser um or Plasma [2345-7] 298 mg/dL N Blood chemistry[[id number]] Glucose [Mass/volume] in Ser um or Plasma [2345-7] 304 mg/dL N Blood chemistry[[id number]] Glucose [Mass/volume] in Ser um or Plasma [2345-7] 229 mg/dL N Blood chemistry[[id number]] Glucose [Mass/volume] in Ser um or Plasma [2345-7] 212 mg/dL N Blood chemistry[[id number]] Glucose [Mass/volume] in Ser um or Plasma [2345-7] 297 mg/dL N Blood chemistry[[id number]] Glucose [Mass/volume] in Ser um or Plasma [2345-7] 271 mg/dL N Blood chemistry[[id number]] Glucose [Mass/volume] in Ser um or Plasma [2345-7] 386 mg/dL N Blood chemistry[[id number]] Glucose [Mass/volume] in Ser um or Plasma [2345-7] 228 mg/dL N Blood chemistry[[id number]] Glucose [Mass/volume] in Ser um or Plasma [2345-7] 231 mg/dL N COVID-19 Test Viral Antigen null flavor [null] See note NEG COVID-19 Test Viral Antigen Blood chemistry[] Glucose [Mass/volume] in Ser um or Plasma [2345-7] 223 mg/dL N Blood chemistry[] Glucose [Mass/volume] in Ser um or Plasma [2345-7] 199 mg/dL N Glucose [Mass/volume] in Ser um or Plasma [2345-7] 199 mg/dL N Blood chemistry[] Glucose [Mass/volume] in Ser um or Plasma [2345-7] 246 mg/dL N Glucose [Mass/volume] in Ser um or Plasma [2345-7] 246 mg/dL N Blood chemistry[] Glucose [Mass/volume] in Ser um or Plasma [2345-7] 266 mg/dL N Blood chemistry[] Glucose [Mass/volume] in Ser um or Plasma [2345-7] 313 mg/dL N Blood chemistry[] Glucose [Mass/volume] in Ser um or Plasma [2345-7] 313 mg/dL N Blood chemistry[] Glucose [Mass/volume] in Ser um or Plasma [2345-7] 400 mg/dL N Blood chemistry[] Glucose [Mass/volume] in Ser um or Plasma [2345-7] 349 mg/dL N Blood chemistry[] Glucose [Mass/volume] in Ser um or Plasma [2345-7] 347 mg/dL N Blood chemistry[] Glucose [Mass/volume] in Ser um or Plasma [2345-7] 316 mg/dL N Glucose [Mass/volume] in Ser um or Plasma [2345-7] 316 mg/dL N Blood chemistry[] Glucose [Mass/volume] in Ser um or Plasma [2345-7] 363 mg/dL N Blood chemistry[] Glucose [Mass/volume] in Ser um or Plasma [2345-7] 363 mg/dL N Blood chemistry[] Glucose [Mass/volume] in Ser um or Plasma [2345-7] 300 mg/dL N Blood chemistry[] Glucose [Mass/volume] in Ser um or Plasma [2345-7] 297 mg/dL N Blood chemistry[] Glucose [Mass/volume] in Ser um or Plasma [2345-7] 335 mg/dL N Glucose [Mass/volume] in Ser um or Plasma [2345-7] 335 mg/dL N Blood chemistry[[id number]] Glucose [Mass/volume] in Ser um or Plasma [2345-7] 337 mg/dL N Blood chemistry[] Glucose [Mass/volume] in Ser um or Plasma [2345-7] 300 mg/dL N Blood chemistry[] Glucose [Mass/volume] in Ser um or Plasma [2345-7] 205 mg/dL N Blood chemistry[] Glucose [Mass/volume] in Ser um or Plasma [2345-7] 178 mg/dL N Blood chemistry[] Glucose [Mass/volume] in Ser um or Plasma [2345-7] 346 mg/dL N Blood chemistry[] Glucose [Mass/volume] in Ser um or Plasma [2345-7] 352 mg/dL N Blood chemistry[] Glucose [Mass/volume] in Ser um or Plasma [2345-7] 400 mg/dL N Blood chemistry[] Glucose [Mass/volume] in Ser um or Plasma [2345-7] 170 mg/dL N Blood chemistry[] Glucose [Mass/volume] in Ser um or Plasma [2345-7] 224 mg/dL N Blood chemistry[] Glucose [Mass/volume] in Ser um or Plasma [2345-7] 265 mg/dL N Blood chemistry[] Glucose [Mass/volume] in Ser um or Plasma [2345-7] 181 mg/dL N Blood chemistry[] Glucose [Mass/volume] in Ser um or Plasma [2345-7] 182 mg/dL N Glucose [Mass/volume] in Ser um or Plasma [2345-7] 182 mg/dL N Blood chemistry[[id number]] Glucose [Mass/volume] in Ser um or Plasma [2345-7] 229 mg/dL N Blood chemistry[] Glucose [Mass/volume] in Ser um or Plasma [2345-7] 229 mg/dL N Blood chemistry[] Glucose [Mass/volume] in Ser um or Plasma [2345-7] 218 mg/dL N Blood chemistry[] Glucose [Mass/volume] in Ser um or Plasma [2345-7] 253 mg/dL N Blood chemistry[] Glucose [Mass/volume] in Ser um or Plasma [2345-7] 208 mg/dL N Blood chemistry[] Glucose [Mass/volume] in Ser um or Plasma [2345-7] 404 mg/dL N Blood chemistry[] Glucose [Mass/volume] in Ser um or Plasma [2345-7] 404 mg/dL N Blood chemistry[] Glucose [Mass/volume] in Ser um or Plasma [2345-7] 293 mg/dL N Blood chemistry[] Glucose [Mass/volume] in Ser um or Plasma [2345-7] 218 mg/dL N Blood chemistry[] Glucose [Mass/volume] in Ser um or Plasma [2345-7] 285 mg/dL N Blood chemistry[] Glucose [Mass/volume] in Ser um or Plasma [2345-7] 268 mg/dL N Blood chemistry[] Glucose [Mass/volume] in Ser um or Plasma [2345-7] 217 mg/dL N Blood chemistry[] Glucose [Mass/volume] in Ser um or Plasma [2345-7] 145 mg/dL N Blood chemistry[] Glucose [Mass/volume] in Ser um or Plasma [2345-7] 129 mg/dL N Blood chemistry[] Glucose [Mass/volume] in Ser um or Plasma [2345-7] 129 mg/dL N Blood chemistry[] Glucose [Mass/volume] in Ser um or Plasma [2345-7] 368 mg/dL N Blood chemistry[[id number]] Glucose [Mass/volume] in Ser um or Plasma [2345-7] 323 mg/dL N Blood chemistry[] Glucose [Mass/volume] in Ser um or Plasma [2345-7] 323 mg/dL N Blood chemistry[] Glucose [Mass/volume] in Ser um or Plasma [2345-7] 349 mg/dL N Blood chemistry[[id number]] Glucose [Mass/volume] in Ser um or Plasma [2345-7] 153 mg/dL N Blood chemistry[] Glucose [Mass/volume] in Ser um or Plasma [2345-7] 269 mg/dL N Blood chemistry[] Glucose [Mass/volume] in Ser um or Plasma [2345-7] 302 mg/dL N Blood chemistry[] Glucose [Mass/volume] in Ser um or Plasma [2345-7] 163 mg/dL N Glucose [Mass/volume] in Ser um or Plasma [2345-7] 163 mg/dL N Blood chemistry[] Glucose [Mass/volume] in Ser um or Plasma [2345-7] 339 mg/dL N Blood chemistry[] Glucose [Mass/volume] in Ser um or Plasma [2345-7] 394 mg/dL N Glucose [Mass/volume] in Ser um or Plasma [2345-7] 394 mg/dL N Blood chemistry[] Glucose [Mass/volume] in Ser um or Plasma [2345-7] 325 mg/dL N Blood chemistry[] Glucose [Mass/volume] in Ser um or Plasma [2345-7] 199 mg/dL N Blood chemistry[] Glucose [Mass/volume] in Ser um or Plasma [2345-7] 199 mg/dL N Blood chemistry[] Glucose [Mass/volume] in Ser um or Plasma [2345-7] 226 mg/dL N Blood chemistry[] Glucose [Mass/volume] in Ser um or Plasma [2345-7] 297 mg/dL N Glucose [Mass/volume] in Ser um or Plasma [2345-7] 297 mg/dL N Blood chemistry[] Glucose [Mass/volume] in Ser um or Plasma [2345-7] 327 mg/dL N Blood chemistry[] Glucose [Mass/volume] in Ser um or Plasma [2345-7] 285 mg/dL N Blood chemistry[] Glucose [Mass/volume] in Ser um or Plasma [2345-7] 341 mg/dL N Blood chemistry[] Glucose [Mass/volume] in Ser um or Plasma [2345-7] 264 mg/dL N Blood chemistry[] Glucose [Mass/volume] in Ser um or Plasma [2345-7] 178 mg/dL N Blood chemistry[] Glucose [Mass/volume] in Ser um or Plasma [2345-7] 246 mg/dL N Blood chemistry[] Glucose [Mass/volume] in Ser um or Plasma [2345-7] 312 mg/dL N Blood chemistry[] Glucose [Mass/volume] in Ser um or Plasma [2345-7] 252 mg/dL N Blood chemistry[] Glucose [Mass/volume] in Ser um or Plasma [2345-7] 400 mg/dL N Blood chemistry[] Glucose [Mass/volume] in Ser um or Plasma [2345-7] 336 mg/dL N Glucose [Mass/volume] in Ser um or Plasma [2345-7] 336 mg/dL N Blood chemistry[] Glucose [Mass/volume] in Ser um or Plasma [2345-7] 297 mg/dL N Glucose [Mass/volume] in Ser um or Plasma [2345-7] 297 mg/dL N Blood chemistry[] Glucose [Mass/volume] in Ser um or Plasma [2345-7] 319 mg/dL N Blood chemistry[] Glucose [Mass/volume] in Ser um or Plasma [2345-7] 284 mg/dL N Blood chemistry[] Glucose [Mass/volume] in Ser um or Plasma [2345-7] 200 mg/dL N Glucose [Mass/volume] in Ser um or Plasma [2345-7] 200 mg/dL N Blood chemistry[] Glucose [Mass/volume] in Ser um or Plasma [2345-7] 362 mg/dL N Blood chemistry[] Glucose [Mass/volume] in Ser um or Plasma [2345-7] 299 mg/dL N Glucose [Mass/volume] in Ser um or Plasma [2345-7] 299 mg/dL N Blood chemistry[] Glucose [Mass/volume] in Ser um or Plasma [2345-7] 247 mg/dL N Blood chemistry[] Glucose [Mass/volume] in Ser um or Plasma [2345-7] 379 mg/dL N Blood chemistry[] Glucose [Mass/volume] in Ser um or Plasma [2345-7] 454 mg/dL N Blood chemistry[[id number]] Glucose [Mass/volume] in Ser um or Plasma [2345-7] 338 mg/dL N Blood chemistry[] Glucose [Mass/volume] in Ser um or Plasma [2345-7] 217 mg/dL N Blood chemistry[] Glucose [Mass/volume] in Ser um or Plasma [2345-7] 224 mg/dL N Blood chemistry[] Glucose [Mass/volume] in Ser um or Plasma [2345-7] 365 mg/dL N Blood chemistry[] Glucose [Mass/volume] in Ser um or Plasma [2345-7] 297 mg/dL N Blood chemistry[] Glucose [Mass/volume] in Ser um or Plasma [2345-7] 250 mg/dL N Blood chemistry[] Glucose [Mass/volume] in Ser um or Plasma [2345-7] 302 mg/dL N Blood chemistry[] Glucose [Mass/volume] in Ser um or Plasma [2345-7] 394 mg/dL N Blood chemistry[] Glucose [Mass/volume] in Ser um or Plasma [2345-7] 333 mg/dL N Blood chemistry[] Glucose [Mass/volume] in Ser um or Plasma [2345-7] 239 mg/dL N Blood chemistry[] Glucose [Mass/volume] in Ser um or Plasma [2345-7] 400 mg/dL N Blood chemistry[[id number]] Glucose [Mass/volume] in Ser um or Plasma [2345-7] 371 mg/dL N Blood chemistry[[id number]] Glucose [Mass/volume] in Ser um or Plasma [2345-7] 337 mg/dL N Blood chemistry[[id number]] Glucose [Mass/volume] in Ser um or Plasma [2345-7] 274 mg/dL N Blood chemistry[] Glucose [Mass/volume] in Ser um or Plasma [2345-7] 340 mg/dL N Blood chemistry[[id number]] Glucose [Mass/volume] in Ser um or Plasma [2345-7] 266 mg/dL N Blood chemistry[] Glucose [Mass/volume] in Ser um or Plasma [2345-7] 272 mg/dL N Blood chemistry[] Glucose [Mass/volume] in Ser um or Plasma [2345-7] 167 mg/dL N Blood chemistry[] Glucose [Mass/volume] in Ser um or Plasma [2345-7] 274 mg/dL N Blood chemistry[] Glucose [Mass/volume] in Ser um or Plasma [2345-7] 321 mg/dL N Blood chemistry[] Glucose [Mass/volume] in Ser um or Plasma [2345-7] 224 mg/dL N Blood chemistry[] Glucose [Mass/volume] in Ser um or Plasma [2345-7] 224 mg/dL N Blood chemistry[] Glucose [Mass/volume] in Ser um or Plasma [2345-7] 133 mg/dL N Glucose [Mass/volume] in Ser um or Plasma [2345-7] 133 mg/dL N Blood chemistry[] Glucose [Mass/volume] in Ser um or Plasma [2345-7] 265 mg/dL N Blood chemistry[] Glucose [Mass/volume] in Ser um or Plasma [2345-7] 200 mg/dL N Blood chemistry[] Glucose [Mass/volume] in Ser um or Plasma [2345-7] 204 mg/dL N Blood chemistry[] Glucose [Mass/volume] in Ser um or Plasma [2345-7] 209 mg/dL N Blood chemistry[] Glucose [Mass/volume] in Ser um or Plasma [2345-7] 259 mg/dL N Blood chemistry[] Glucose [Mass/volume] in Ser um or Plasma [2345-7] 327 mg/dL N Blood chemistry[] Glucose [Mass/volume] in Ser um or Plasma [2345-7] 338 mg/dL N Blood chemistry[] Glucose [Mass/volume] in Ser um or Plasma [2345-7] 226 mg/dL N Blood chemistry[] Glucose [Mass/volume] in Ser um or Plasma [2345-7] 180 mg/dL N Glucose [Mass/volume] in Ser um or Plasma [2345-7] 180 mg/dL N Blood chemistry[] Glucose [Mass/volume] in Ser um or Plasma [2345-7] 347 mg/dL N Blood chemistry[] Glucose [Mass/volume] in Ser um or Plasma [2345-7] 338 mg/dL N Blood chemistry[] Glucose [Mass/volume] in Ser um or Plasma [2345-7] 327 mg/dL N Blood chemistry[] Glucose [Mass/volume] in Ser um or Plasma [2345-7] 378 mg/dL N Blood chemistry[] Glucose [Mass/volume] in Ser um or Plasma [2345-7] 378 mg/dL N Blood chemistry[] Glucose [Mass/volume] in Ser um or Plasma [2345-7] 320 mg/dL N Blood chemistry[] Glucose [Mass/volume] in Ser um or Plasma [2345-7] 398 mg/dL N Blood chemistry[] Glucose [Mass/volume] in Ser um or Plasma [2345-7] 247 mg/dL N Blood chemistry[] Glucose [Mass/volume] in Ser um or Plasma [2345-7] 386 mg/dL N Blood chemistry[] Glucose [Mass/volume] in Ser um or Plasma [2345-7] 400 mg/dL N Blood chemistry[] Glucose [Mass/volume] in Ser um or Plasma [2345-7] 206 mg/dL N Blood chemistry[] Glucose [Mass/volume] in Ser um or Plasma [2345-7] 206 mg/dL N Blood chemistry[] Glucose [Mass/volume] in Ser um or Plasma [2345-7] 395 mg/dL N Blood chemistry[] Glucose [Mass/volume] in Ser um or Plasma [2345-7] 395 mg/dL N Blood chemistry[] Glucose [Mass/volume] in Ser um or Plasma [2345-7] 214 mg/dL N Blood chemistry[] Glucose [Mass/volume] in Ser um or Plasma [2345-7] 399 mg/dL N Blood chemistry[] Glucose [Mass/volume] in Ser um or Plasma [2345-7] 257 mg/dL N Blood chemistry[] Glucose [Mass/volume] in Ser um or Plasma [2345-7] 396 mg/dL N Blood chemistry[] Glucose [Mass/volume] in Ser um or Plasma [2345-7] 323 mg/dL N Blood chemistry[] Glucose [Mass/volume] in Ser um or Plasma [2345-7] 186 mg/dL N Blood chemistry[] Glucose [Mass/volume] in Ser um or Plasma [2345-7] 130 mg/dL N Blood chemistry[] Glucose [Mass/volume] in Ser um or Plasma [2345-7] 340 mg/dL N Glucose [Mass/volume] in Ser um or Plasma [2345-7] 340 mg/dL N Blood chemistry[] Glucose [Mass/volume] in Ser um or Plasma [2345-7] 393 mg/dL N Blood chemistry[] Glucose [Mass/volume] in Ser um or Plasma [2345-7] 337 mg/dL N Blood chemistry[] Glucose [Mass/volume] in Ser um or Plasma [2345-7] 189 mg/dL N Blood chemistry[] Glucose [Mass/volume] in Ser um or Plasma [2345-7] 382 mg/dL N Blood chemistry[] Glucose [Mass/volume] in Ser um or Plasma [2345-7] 364 mg/dL N Blood chemistry[] Glucose [Mass/volume] in Ser um or Plasma [2345-7] 183 mg/dL N Blood chemistry[] Glucose [Mass/volume] in Ser um or Plasma [2345-7] 254 mg/dL N Blood chemistry[] Glucose [Mass/volume] in Ser um or Plasma [2345-7] 225 mg/dL N Blood chemistry[] Glucose [Mass/volume] in Ser um or Plasma [2345-7] 236 mg/dL N Blood chemistry[] Glucose [Mass/volume] in Ser um or Plasma [2345-7] 354 mg/dL N Blood chemistry[] Glucose [Mass/volume] in Ser um or Plasma [2345-7] 129 mg/dL N Blood chemistry[] Glucose [Mass/volume] in Ser um or Plasma [2345-7] 306 mg/dL N Blood chemistry[] Glucose [Mass/volume] in Ser um or Plasma [2345-7] 269 mg/dL N Blood chemistry[] Glucose [Mass/volume] in Ser um or Plasma [2345-7] 227 mg/dL N Blood chemistry[] Glucose [Mass/volume] in Ser um or Plasma [2345-7] 148 mg/dL N Blood chemistry[] Glucose [Mass/volume] in Ser um or Plasma [2345-7] 148 mg/dL N Blood chemistry[] Glucose [Mass/volume] in Ser um or Plasma [2345-7] 217 mg/dL N Blood chemistry[] Glucose [Mass/volume] in Ser um or Plasma [2345-7] 400 mg/dL N Blood chemistry[] Glucose [Mass/volume] in Ser um or Plasma [2345-7] 285 mg/dL N Blood chemistry[] Glucose [Mass/volume] in Ser um or Plasma [2345-7] 274 mg/dL N Blood chemistry[] Glucose [Mass/volume] in Ser um or Plasma [2345-7] 198 mg/dL N Blood chemistry[] Glucose [Mass/volume] in Ser um or Plasma [2345-7] 265 mg/dL N Blood chemistry[] Glucose [Mass/volume] in Ser um or Plasma [2345-7] 113 mg/dL N Blood chemistry[] Glucose [Mass/volume] in Ser um or Plasma [2345-7] 322 mg/dL N Blood chemistry[] Glucose [Mass/volume] in Ser um or Plasma [2345-7] 224 mg/dL N Blood chemistry[] Glucose [Mass/volume] in Ser um or Plasma [2345-7] 241 mg/dL N Blood chemistry[] Glucose [Mass/volume] in Ser um or Plasma [2345-7] 134 mg/dL N Blood chemistry[] Glucose [Mass/volume] in Ser um or Plasma [2345-7] 202 mg/dL N Blood chemistry[] Glucose [Mass/volume] in Ser um or Plasma [2345-7] 150 mg/dL N Blood chemistry[] Glucose [Mass/volume] in Ser um or Plasma [2345-7] 150 mg/dL N Blood chemistry[] Glucose [Mass/volume] in Ser um or Plasma [2345-7] 338 mg/dL N Blood chemistry[] Glucose [Mass/volume] in Ser um or Plasma [2345-7] 188 mg/dL N Blood chemistry[] Glucose [Mass/volume] in Ser um or Plasma [2345-7] 259 mg/dL N Blood chemistry[] Glucose [Mass/volume] in Ser um or Plasma [2345-7] 263 mg/dL N Blood chemistry[] Glucose [Mass/volume] in Ser um or Plasma [2345-7] 224 mg/dL N Blood chemistry[] Glucose [Mass/volume] in Ser um or Plasma [2345-7] 150 mg/dL N Glucose [Mass/volume] in Ser um or Plasma [2345-7] 150 mg/dL N Blood chemistry[] Glucose [Mass/volume] in Ser um or Plasma [2345-7] 399 mg/dL N Blood chemistry[] Glucose [Mass/volume] in Ser um or Plasma [2345-7] 285 mg/dL N Blood chemistry[] Glucose [Mass/volume] in Ser um or Plasma [2345-7] 346 mg/dL N Blood chemistry[] Glucose [Mass/volume] in Ser um or Plasma [2345-7] 346 mg/dL N Blood chemistry[] Glucose [Mass/volume] in Ser um or Plasma [2345-7] 346 mg/dL N Blood chemistry[] Glucose [Mass/volume] in Ser um or Plasma [2345-7] 304 mg/dL N Blood chemistry[] Glucose [Mass/volume] in Ser um or Plasma [2345-7] 218 mg/dL N Blood chemistry[] Glucose [Mass/volume] in Ser um or Plasma [2345-7] 213 mg/dL N Blood chemistry[] Glucose [Mass/volume] in Ser um or Plasma [2345-7] 174 mg/dL N Blood chemistry[] Glucose [Mass/volume] in Ser um or Plasma [2345-7] 370 mg/dL N Blood chemistry[] Glucose [Mass/volume] in Ser um or Plasma [2345-7] 253 mg/dL N Blood chemistry[] Glucose [Mass/volume] in Ser um or Plasma [2345-7] 238 mg/dL N Blood chemistry[] Glucose [Mass/volume] in Ser um or Plasma [2345-7] 337 mg/dL N Blood chemistry[] Glucose [Mass/volume] in Ser um or Plasma [2345-7] 390 mg/dL N Blood chemistry[] Glucose [Mass/volume] in Ser um or Plasma [2345-7] 388 mg/dL N Blood chemistry[] Glucose [Mass/volume] in Ser um or Plasma [2345-7] 234 mg/dL N Blood chemistry[] Glucose [Mass/volume] in Ser um or Plasma [2345-7] 306 mg/dL N Blood chemistry[] Glucose [Mass/volume] in Ser um or Plasma [2345-7] 276 mg/dL N Blood chemistry[] Glucose [Mass/volume] in Ser um or Plasma [2345-7] 200 mg/dL N Blood chemistry[] Glucose [Mass/volume] in Ser um or Plasma [2345-7] 227 mg/dL N Blood chemistry[[id number]] Glucose [Mass/volume] in Ser um or Plasma [2345-7] 348 mg/dL N Blood chemistry[] Glucose [Mass/volume] in Ser um or Plasma [2345-7] 327 mg/dL N Blood chemistry[[id number]] Glucose [Mass/volume] in Ser um or Plasma [2345-7] 256 mg/dL N Blood chemistry[] Glucose [Mass/volume] in Ser um or Plasma [2345-7] 213 mg/dL N Blood chemistry[] Glucose [Mass/volume] in Ser um or Plasma [2345-7] 296 mg/dL N Blood chemistry[] Glucose [Mass/volume] in Ser um or Plasma [2345-7] 248 mg/dL N Blood chemistry[] Glucose [Mass/volume] in Ser um or Plasma [2345-7] 326 mg/dL N Blood chemistry[] Glucose [Mass/volume] in Ser um or Plasma [2345-7] 213 mg/dL N Blood chemistry[] Glucose [Mass/volume] in Ser um or Plasma [2345-7] 144 mg/dL N Blood chemistry[] Glucose [Mass/volume] in Ser um or Plasma [2345-7] 340 mg/dL N Blood chemistry[] Glucose [Mass/volume] in Ser um or Plasma [2345-7] 278 mg/dL N Blood chemistry[] Glucose [Mass/volume] in Ser um or Plasma [2345-7] 162 mg/dL N Blood chemistry[] Glucose [Mass/volume] in Ser um or Plasma [2345-7] 297 mg/dL N Blood chemistry[] Glucose [Mass/volume] in Ser um or Plasma [2345-7] 329 mg/dL N Blood chemistry[] Glucose [Mass/volume] in Ser um or Plasma [2345-7] 330 mg/dL N Blood chemistry[] Glucose [Mass/volume] in Ser um or Plasma [2345-7] 316 mg/dL N Blood chemistry[] Glucose [Mass/volume] in Ser um or Plasma [2345-7] 361 mg/dL N Blood chemistry[] Glucose [Mass/volume] in Ser um or Plasma [2345-7] 361 mg/dL N Blood chemistry[] Glucose [Mass/volume] in Ser um or Plasma [2345-7] 231 mg/dL N Blood chemistry[] Glucose [Mass/volume] in Ser um or Plasma [2345-7] 236 mg/dL N Blood chemistry[] Glucose [Mass/volume] in Ser um or Plasma [2345-7] 168 mg/dL N Blood chemistry[] Glucose [Mass/volume] in Ser um or Plasma [2345-7] 310 mg/dL N Blood chemistry[] Glucose [Mass/volume] in Ser um or Plasma [2345-7] 428 mg/dL N Blood chemistry[] Glucose [Mass/volume] in Ser um or Plasma [2345-7] 219 mg/dL N Blood chemistry[] Glucose [Mass/volume] in Ser um or Plasma [2345-7] 378 mg/dL N Blood chemistry[] Glucose [Mass/volume] in Ser um or Plasma [2345-7] 152 mg/dL N Glucose [Mass/volume] in Ser um or Plasma [2345-7] 152 mg/dL N Blood chemistry[] Glucose [Mass/volume] in Ser um or Plasma [2345-7] 271 mg/dL N Blood chemistry[] Glucose [Mass/volume] in Ser um or Plasma [2345-7] 289 mg/dL N Blood chemistry[] Glucose [Mass/volume] in Ser um or Plasma [2345-7] 218 mg/dL N Blood chemistry[] Glucose [Mass/volume] in Ser um or Plasma [2345-7] 157 mg/dL N Glucose [Mass/volume] in Ser um or Plasma [2345-7] 157 mg/dL N Blood chemistry[] Glucose [Mass/volume] in Ser um or Plasma [2345-7] 342 mg/dL N Blood chemistry[] Glucose [Mass/volume] in Ser um or Plasma [2345-7] 211 mg/dL N Blood chemistry[] Glucose [Mass/volume] in Ser um or Plasma [2345-7] 267 mg/dL N Blood chemistry[] Glucose [Mass/volume] in Ser um or Plasma [2345-7] 292 mg/dL N Blood chemistry[] Glucose [Mass/volume] in Ser um or Plasma [2345-7] 257 mg/dL N Blood chemistry[] Glucose [Mass/volume] in Ser um or Plasma [2345-7] 368 mg/dL N Blood chemistry[] Glucose [Mass/volume] in Ser um or Plasma [2345-7] 187 mg/dL N Glucose [Mass/volume] in Ser um or Plasma [2345-7] 187 mg/dL N Blood chemistry[] Glucose [Mass/volume] in Ser um or Plasma [2345-7] 296 mg/dL N Blood chemistry[] Glucose [Mass/volume] in Ser um or Plasma [2345-7] 288 mg/dL N Blood chemistry[] Glucose [Mass/volume] in Ser um or Plasma [2345-7] 227 mg/dL N Blood chemistry[] Glucose [Mass/volume] in Ser um or Plasma [2345-7] 225 mg/dL N Glucose [Mass/volume] in Ser um or Plasma [2345-7] 225 mg/dL N Blood chemistry[] Glucose [Mass/volume] in Ser um or Plasma [2345-7] 324 mg/dL N Blood chemistry[] Glucose [Mass/volume] in Ser um or Plasma [2345-7] 320 mg/dL N Blood chemistry[] Glucose [Mass/volume] in Ser um or Plasma [2345-7] 241 mg/dL N Glucose [Mass/volume] in Ser um or Plasma [2345-7] 241 mg/dL N Blood chemistry[] Glucose [Mass/volume] in Ser um or Plasma [2345-7] 249 mg/dL N Blood chemistry[] Glucose [Mass/volume] in Ser um or Plasma [2345-7] 396 mg/dL N Blood chemistry[] Glucose [Mass/volume] in Ser um or Plasma [2345-7] 162 mg/dL N Glucose [Mass/volume] in Ser um or Plasma [2345-7] 162 mg/dL N Blood chemistry[] Glucose [Mass/volume] in Ser um or Plasma [2345-7] 242 mg/dL N Blood chemistry[] Glucose [Mass/volume] in Ser um or Plasma [2345-7] 400 mg/dL N Blood chemistry[] Glucose [Mass/volume] in Ser um or Plasma [2345-7] 252 mg/dL N Blood chemistry[] Glucose [Mass/volume] in Ser um or Plasma [2345-7] 223 mg/dL N Glucose [Mass/volume] in Ser um or Plasma [2345-7] 223 mg/dL N Blood chemistry[] Glucose [Mass/volume] in Ser um or Plasma [2345-7] 366 mg/dL N Blood chemistry[] Glucose [Mass/volume] in Ser um or Plasma [2345-7] 174 mg/dL N Blood chemistry[] Glucose [Mass/volume] in Ser um or Plasma [2345-7] 373 mg/dL N Blood chemistry[] Glucose [Mass/volume] in Ser um or Plasma [2345-7] 310 mg/dL N Blood chemistry[] Glucose [Mass/volume] in Ser um or Plasma [2345-7] 310 mg/dL N Blood chemistry[] Glucose [Mass/volume] in Ser um or Plasma [2345-7] 247 mg/dL N Blood chemistry[] Glucose [Mass/volume] in Ser um or Plasma [2345-7] 296 mg/dL N Blood chemistry[] Glucose [Mass/volume] in Ser um or Plasma [2345-7] 377 mg/dL N Blood chemistry[] Glucose [Mass/volume] in Ser um or Plasma [2345-7] 179 mg/dL N Blood chemistry[] Glucose [Mass/volume] in Ser um or Plasma [2345-7] 377 mg/dL N Blood chemistry[] Glucose [Mass/volume] in Ser um or Plasma [2345-7] 221 mg/dL N Blood chemistry[] Glucose [Mass/volume] in Ser um or Plasma [2345-7] 145 mg/dL N Blood chemistry[] Glucose [Mass/volume] in Ser um or Plasma [2345-7] 181 mg/dL N Glucose [Mass/volume] in Ser um or Plasma [2345-7] 181 mg/dL N Blood chemistry[] Glucose [Mass/volume] in Ser um or Plasma [2345-7] 148 mg/dL N Blood chemistry[] Glucose [Mass/volume] in Ser um or Plasma [2345-7] 361 mg/dL N Blood chemistry[] Glucose [Mass/volume] in Ser um or Plasma [2345-7] 304 mg/dL N Blood chemistry[] Glucose [Mass/volume] in Ser um or Plasma [2345-7] 226 mg/dL N Glucose [Mass/volume] in Ser um or Plasma [2345-7] 226 mg/dL N Blood chemistry[] Glucose [Mass/volume] in Ser um or Plasma [2345-7] 370 mg/dL N Blood chemistry[] Glucose [Mass/volume] in Ser um or Plasma [2345-7] 277 mg/dL N Blood chemistry[] Glucose [Mass/volume] in Ser um or Plasma [2345-7] 352 mg/dL N Blood chemistry[] Glucose [Mass/volume] in Ser um or Plasma [2345-7] 222 mg/dL N Glucose [Mass/volume] in Ser um or Plasma [2345-7] 222 mg/dL N Blood chemistry[] Glucose [Mass/volume] in Ser um or Plasma [2345-7] 265 mg/dL N Blood chemistry[] Glucose [Mass/volume] in Ser um or Plasma [2345-7] 316 mg/dL N Blood chemistry[] Glucose [Mass/volume] in Ser um or Plasma [2345-7] 272 mg/dL N Blood chemistry[] Glucose [Mass/volume] in Ser um or Plasma [2345-7] 235 mg/dL N Blood chemistry[] Glucose [Mass/volume] in Ser um or Plasma [2345-7] 227 mg/dL N Blood chemistry[] Glucose [Mass/volume] in Ser um or Plasma [2345-7] 258 mg/dL N Blood chemistry[] Glucose [Mass/volume] in Ser um or Plasma [2345-7] 272 mg/dL N Blood chemistry[] Glucose [Mass/volume] in Ser um or Plasma [2345-7] 204 mg/dL N Blood chemistry[] Glucose [Mass/volume] in Ser um or Plasma [2345-7] 270 mg/dL N Blood chemistry[] Glucose [Mass/volume] in Ser um or Plasma [2345-7] 311 mg/dL N Blood chemistry[] Glucose [Mass/volume] in Ser um or Plasma [2345-7] 269 mg/dL N Blood chemistry[] Glucose [Mass/volume] in Ser um or Plasma [2345-7] 192 mg/dL N Blood chemistry[] Glucose [Mass/volume] in Ser um or Plasma [2345-7] 201 mg/dL N Glucose [Mass/volume] in Ser um or Plasma [2345-7] 201 mg/dL N Blood chemistry[] Glucose [Mass/volume] in Ser um or Plasma [2345-7] 316 mg/dL N Blood chemistry[] Glucose [Mass/volume] in Ser um or Plasma [2345-7] 222 mg/dL N Glucose [Mass/volume] in Ser um or Plasma [2345-7] 222 mg/dL N Blood chemistry[] Glucose [Mass/volume] in Ser um or Plasma [2345-7] 281 mg/dL N Blood chemistry[] Glucose [Mass/volume] in Ser um or Plasma [2345-7] 213 mg/dL N Blood chemistry[] Glucose [Mass/volume] in Ser um or Plasma [2345-7] 234 mg/dL N Blood chemistry[] Glucose [Mass/volume] in Ser um or Plasma [2345-7] 117 mg/dL N Glucose [Mass/volume] in Ser um or Plasma [2345-7] 117 mg/dL N Blood chemistry[] Glucose [Mass/volume] in Ser um or Plasma [2345-7] 153 mg/dL N Blood chemistry[] Glucose [Mass/volume] in Ser um or Plasma [2345-7] 224 mg/dL N Blood chemistry[] Glucose [Mass/volume] in Ser um or Plasma [2345-7] 133 mg/dL N Glucose [Mass/volume] in Ser um or Plasma [2345-7] 133 mg/dL N Blood chemistry[[id number]] Glucose [Mass/volume] in Ser um or Plasma [2345-7] 210 mg/dL N Blood chemistry[] Glucose [Mass/volume] in Ser um or Plasma [2345-7] 244 mg/dL N Blood chemistry[] Glucose [Mass/volume] in Ser um or Plasma [2345-7] 257 mg/dL N Blood chemistry[] Glucose [Mass/volume] in Ser um or Plasma [2345-7] 176 mg/dL N Blood chemistry[] Glucose [Mass/volume] in Ser um or Plasma [2345-7] 176 mg/dL N Blood chemistry[] Glucose [Mass/volume] in Ser um or Plasma [2345-7] 193 mg/dL N Blood chemistry[] Glucose [Mass/volume] in Ser um or Plasma [2345-7] 315 mg/dL N Blood chemistry[] Glucose [Mass/volume] in Ser um or Plasma [2345-7] 315 mg/dL N Blood chemistry[] Glucose [Mass/volume] in Ser um or Plasma [2345-7] 243 mg/dL N Blood chemistry[] Glucose [Mass/volume] in Ser um or Plasma [2345-7] 167 mg/dL N Blood chemistry[] Glucose [Mass/volume] in Ser um or Plasma [2345-7] 212 mg/dL N Glucose [Mass/volume] in Ser um or Plasma [2345-7] 212 mg/dL N Blood chemistry[] Glucose [Mass/volume] in Ser um or Plasma [2345-7] 208 mg/dL N Blood chemistry[] Glucose [Mass/volume] in Ser um or Plasma [2345-7] 215 mg/dL N Blood chemistry[] Glucose [Mass/volume] in Ser um or Plasma [2345-7] 200 mg/dL N Blood chemistry[] Glucose [Mass/volume] in Ser um or Plasma [2345-7] 173 mg/dL N Glucose [Mass/volume] in Ser um or Plasma [2345-7] 173 mg/dL N COVID-19 Test Viral Antigen null flavor [null] See note NEG COVID-19 Test Viral Antigen Blood chemistry[[id number]] Glucose [Mass/volume] in Ser um or Plasma [2345-7] 213 mg/dL N Blood chemistry[[id number]] Glucose [Mass/volume] in Ser um or Plasma [2345-7] 326 mg/dL N Blood chemistry[[id number]] Glucose [Mass/volume] in Ser um or Plasma [2345-7] 140 mg/dL N Blood chemistry[[id number]] Glucose [Mass/volume] in Ser um or Plasma [2345-7] 197 mg/dL N Blood chemistry[[id number]] Glucose [Mass/volume] in Ser um or Plasma [2345-7] 176 mg/dL N Blood chemistry[[id number]] Glucose [Mass/volume] in Ser um or Plasma [2345-7] 139 mg/dL N Blood chemistry[[id number]] Glucose [Mass/volume] in Ser um or Plasma [2345-7] 147 mg/dL N Blood chemistry[[id number]] Glucose [Mass/volume] in Ser um or Plasma [2345-7] 247 mg/dL N COVID-19 Test Viral Antigen null flavor [null] See note NEG COVID-19 Test Viral Antigen Blood chemistry[[id number]] Glucose [Mass/volume] in Ser um or Plasma [2345-7] 335 mg/dL N Blood chemistry[[id number]] Glucose [Mass/volume] in Ser um or Plasma [2345-7] 132 mg/dL N Blood chemistry[[id number]] Glucose [Mass/volume] in Ser um or Plasma [2345-7] 164 mg/dL N Blood chemistry[[id number]] Glucose [Mass/volume] in Ser um or Plasma [2345-7] 266 mg/dL N Glucose [Mass/volume] in Ser um or Plasma [2345-7] 266 mg/dL N Blood chemistry[[id number]] Glucose [Mass/volume] in Ser um or Plasma [2345-7] 244 mg/dL N Blood chemistry[[id number]] Glucose [Mass/volume] in Ser um or Plasma [2345-7] 209 mg/dL N Blood chemistry[] Glucose [Mass/volume] in Ser um or Plasma [2345-7] 211 mg/dL N Blood chemistry[] Glucose [Mass/volume] in Ser um or Plasma [2345-7] 201 mg/dL N Glucose [Mass/volume] in Ser um or Plasma [2345-7] 201 mg/dL N Blood chemistry[] Glucose [Mass/volume] in Ser um or Plasma [2345-7] 281 mg/dL N Blood chemistry[] Glucose [Mass/volume] in Ser um or Plasma [2345-7] 296 mg/dL N Blood chemistry[] Glucose [Mass/volume] in Ser um or Plasma [2345-7] 300 mg/dL N Blood chemistry[] Glucose [Mass/volume] in Ser um or Plasma [2345-7] 154 mg/dL N Glucose [Mass/volume] in Ser um or Plasma [2345-7] 154 mg/dL N Blood chemistry[] Glucose [Mass/volume] in Ser um or Plasma [2345-7] 249 mg/dL N Blood chemistry[] Glucose [Mass/volume] in Ser um or Plasma [2345-7] 228 mg/dL N Blood chemistry[] Glucose [Mass/volume] in Ser um or Plasma [2345-7] 132 mg/dL N Blood chemistry[] Glucose [Mass/volume] in Ser um or Plasma [2345-7] 198 mg/dL N Blood chemistry[] Glucose [Mass/volume] in Ser um or Plasma [2345-7] 357 mg/dL N Blood chemistry[] Glucose [Mass/volume] in Ser um or Plasma [2345-7] 274 mg/dL N Blood chemistry[] Glucose [Mass/volume] in Ser um or Plasma [2345-7] 161 mg/dL N Glucose [Mass/volume] in Ser um or Plasma [2345-7] 161 mg/dL N Blood chemistry[] Glucose [Mass/volume] in Ser um or Plasma [2345-7] 156 mg/dL N Blood chemistry[] Glucose [Mass/volume] in Ser um or Plasma [2345-7] 307 mg/dL N Blood chemistry[] Glucose [Mass/volume] in Ser um or Plasma [2345-7] 207 mg/dL N Blood chemistry[] Glucose [Mass/volume] in Ser um or Plasma [2345-7] 123 mg/dL N Blood chemistry[] Glucose [Mass/volume] in Ser um or Plasma [2345-7] 279 mg/dL N Glucose [Mass/volume] in Ser um or Plasma [2345-7] 279 mg/dL N Blood chemistry[] Glucose [Mass/volume] in Ser um or Plasma [2345-7] 229 mg/dL N Blood chemistry[] Glucose [Mass/volume] in Ser um or Plasma [2345-7] 311 mg/dL N Blood chemistry[] Glucose [Mass/volume] in Ser um or Plasma [2345-7] 311 mg/dL N Blood chemistry[] Glucose [Mass/volume] in Ser um or Plasma [2345-7] 260 mg/dL N Blood chemistry[] Glucose [Mass/volume] in Ser um or Plasma [2345-7] 314 mg/dL N Blood chemistry[] Glucose [Mass/volume] in Ser um or Plasma [2345-7] 315 mg/dL N Blood chemistry[] Glucose [Mass/volume] in Ser um or Plasma [2345-7] 157 mg/dL N Glucose [Mass/volume] in Ser um or Plasma [2345-7] 157 mg/dL N Blood chemistry[] Glucose [Mass/volume] in Ser um or Plasma [2345-7] 285 mg/dL N Blood chemistry[] Glucose [Mass/volume] in Ser um or Plasma [2345-7] 333 mg/dL N Blood chemistry[] Glucose [Mass/volume] in Ser um or Plasma [2345-7] 284 mg/dL N Glucose [Mass/volume] in Ser um or Plasma [2345-7] 284 mg/dL N Blood chemistry[] Glucose [Mass/volume] in Ser um or Plasma [2345-7] 274 mg/dL N Blood chemistry[[id number]] Glucose [Mass/volume] in Ser um or Plasma [2345-7] 297 mg/dL N Blood chemistry[] Glucose [Mass/volume] in Ser um or Plasma [2345-7] 287 mg/dL N Blood chemistry[] Glucose [Mass/volume] in Ser um or Plasma [2345-7] 135 mg/dL N Glucose [Mass/volume] in Ser um or Plasma [2345-7] 135 mg/dL N Blood chemistry[] Glucose [Mass/volume] in Ser um or Plasma [2345-7] 258 mg/dL N Blood chemistry[] Glucose [Mass/volume] in Ser um or Plasma [2345-7] 307 mg/dL N Blood chemistry[] Glucose [Mass/volume] in Ser um or Plasma [2345-7] 326 mg/dL N Blood chemistry[] Glucose [Mass/volume] in Ser um or Plasma [2345-7] 202 mg/dL N Blood chemistry[] Glucose [Mass/volume] in Ser um or Plasma [2345-7] 202 mg/dL N Blood chemistry[[id number]] Glucose [Mass/volume] in Ser um or Plasma [2345-7] 250 mg/dL N Blood chemistry[] Glucose [Mass/volume] in Ser um or Plasma [2345-7] 321 mg/dL N Blood chemistry[] Glucose [Mass/volume] in Ser um or Plasma [2345-7] 258 mg/dL N Glucose [Mass/volume] in Ser um or Plasma [2345-7] 258 mg/dL N Blood chemistry[[id number]] Glucose [Mass/volume] in Ser um or Plasma [2345-7] 305 mg/dL N Blood chemistry[] Glucose [Mass/volume] in Ser um or Plasma [2345-7] 215 mg/dL N Blood chemistry[] Glucose [Mass/volume] in Ser um or Plasma [2345-7] 321 mg/dL N Blood chemistry[] Glucose [Mass/volume] in Ser um or Plasma [2345-7] 121 mg/dL N Blood chemistry[] Glucose [Mass/volume] in Ser um or Plasma [2345-7] 399 mg/dL N Glucose [Mass/volume] in Ser um or Plasma [2345-7] 399 mg/dL N Blood chemistry[] Glucose [Mass/volume] in Ser um or Plasma [2345-7] 313 mg/dL N Blood chemistry[] Glucose [Mass/volume] in Ser um or Plasma [2345-7] 372 mg/dL N Blood chemistry[] Glucose [Mass/volume] in Ser um or Plasma [2345-7] 177 mg/dL N Blood chemistry[] Glucose [Mass/volume] in Ser um or Plasma [2345-7] 177 mg/dL N Blood chemistry[] Glucose [Mass/volume] in Ser um or Plasma [2345-7] 360 mg/dL N Blood chemistry[] Glucose [Mass/volume] in Ser um or Plasma [2345-7] 87 mg/dL N Blood chemistry[] Glucose [Mass/volume] in Ser um or Plasma [2345-7] 165 mg/dL N Blood chemistry[] Glucose [Mass/volume] in Ser um or Plasma [2345-7] 124 mg/dL N Blood chemistry[] Glucose [Mass/volume] in Ser um or Plasma [2345-7] 284 mg/dL N Blood chemistry[] Glucose [Mass/volume] in Ser um or Plasma [2345-7] 350 mg/dL N Blood chemistry[] Glucose [Mass/volume] in Ser um or Plasma [2345-7] 291 mg/dL N Blood chemistry[] Glucose [Mass/volume] in Ser um or Plasma [2345-7] 291 mg/dL N Blood chemistry[] Glucose [Mass/volume] in Ser um or Plasma [2345-7] 293 mg/dL N Blood chemistry[] Glucose [Mass/volume] in Ser um or Plasma [2345-7] 221 mg/dL N Blood chemistry[] Glucose [Mass/volume] in Ser um or Plasma [2345-7] 368 mg/dL N Blood chemistry[] Glucose [Mass/volume] in Ser um or Plasma [2345-7] 145 mg/dL N Blood chemistry[] Glucose [Mass/volume] in Ser um or Plasma [2345-7] 145 mg/dL N Blood chemistry[] Glucose [Mass/volume] in Ser um or Plasma [2345-7] 213 mg/dL N Blood chemistry[] Glucose [Mass/volume] in Ser um or Plasma [2345-7] 235 mg/dL N Blood chemistry[] Glucose [Mass/volume] in Ser um or Plasma [2345-7] 277 mg/dL N Blood chemistry[] Glucose [Mass/volume] in Ser um or Plasma [2345-7] 214 mg/dL N Blood chemistry[] Glucose [Mass/volume] in Ser um or Plasma [2345-7] 304 mg/dL N Blood chemistry[] Glucose [Mass/volume] in Ser um or Plasma [2345-7] 185 mg/dL N Blood chemistry[] Glucose [Mass/volume] in Ser um or Plasma [2345-7] 204 mg/dL N Blood chemistry[] Glucose [Mass/volume] in Ser um or Plasma [2345-7] 234 mg/dL N Blood chemistry[] Glucose [Mass/volume] in Ser um or Plasma [2345-7] 226 mg/dL N Blood chemistry[] Glucose [Mass/volume] in Ser um or Plasma [2345-7] 312 mg/dL N Blood chemistry[] Glucose [Mass/volume] in Ser um or Plasma [2345-7] 197 mg/dL N Blood chemistry[] Glucose [Mass/volume] in Ser um or Plasma [2345-7] 170 mg/dL N Blood chemistry[] Glucose [Mass/volume] in Ser um or Plasma [2345-7] 191 mg/dL N Glucose [Mass/volume] in Ser um or Plasma [2345-7] 191 mg/dL N Blood chemistry[] Glucose [Mass/volume] in Ser um or Plasma [2345-7] 400 mg/dL N Blood chemistry[] Glucose [Mass/volume] in Ser um or Plasma [2345-7] 359 mg/dL N Blood chemistry[] Glucose [Mass/volume] in Ser um or Plasma [2345-7] 276 mg/dL N Blood chemistry[] Glucose [Mass/volume] in Ser um or Plasma [2345-7] 400 mg/dL N Blood chemistry[] Glucose [Mass/volume] in Ser um or Plasma [2345-7] 320 mg/dL N Blood chemistry[] Glucose [Mass/volume] in Ser um or Plasma [2345-7] 323 mg/dL N Blood chemistry[] Glucose [Mass/volume] in Ser um or Plasma [2345-7] 229 mg/dL N Blood chemistry[] Glucose [Mass/volume] in Ser um or Plasma [2345-7] 229 mg/dL N Blood chemistry[] Glucose [Mass/volume] in Ser um or Plasma [2345-7] 235 mg/dL N Blood chemistry[] Glucose [Mass/volume] in Ser um or Plasma [2345-7] 269 mg/dL N Blood chemistry[] Glucose [Mass/volume] in Ser um or Plasma [2345-7] 175 mg/dL N Glucose [Mass/volume] in Ser um or Plasma [2345-7] 175 mg/dL N Blood chemistry[] Glucose [Mass/volume] in Ser um or Plasma [2345-7] 223 mg/dL N Blood chemistry[] Glucose [Mass/volume] in Ser um or Plasma [2345-7] 288 mg/dL N Blood chemistry[] Glucose [Mass/volume] in Ser um or Plasma [2345-7] 250 mg/dL N Blood chemistry[] Glucose [Mass/volume] in Ser um or Plasma [2345-7] 185 mg/dL N Blood chemistry[] Glucose [Mass/volume] in Ser um or Plasma [2345-7] 197 mg/dL N Blood chemistry[] Glucose [Mass/volume] in Ser um or Plasma [2345-7] 303 mg/dL N Blood chemistry[[id number]] Glucose [Mass/volume] in Ser um or Plasma [2345-7] 274 mg/dL N Blood chemistry[] Glucose [Mass/volume] in Ser um or Plasma [2345-7] 185 mg/dL N Blood chemistry[] Glucose [Mass/volume] in Ser um or Plasma [2345-7] 185 mg/dL N Blood chemistry[] Glucose [Mass/volume] in Ser um or Plasma [2345-7] 315 mg/dL N Blood chemistry[] Glucose [Mass/volume] in Ser um or Plasma [2345-7] 276 mg/dL N Blood chemistry[] Glucose [Mass/volume] in Ser um or Plasma [2345-7] 165 mg/dL N Glucose [Mass/volume] in Ser um or Plasma [2345-7] 165 mg/dL N Blood chemistry[] Glucose [Mass/volume] in Ser um or Plasma [2345-7] 325 mg/dL N Blood chemistry[] Glucose [Mass/volume] in Ser um or Plasma [2345-7] 186 mg/dL N Blood chemistry[] Glucose [Mass/volume] in Ser um or Plasma [2345-7] 159 mg/dL N Blood chemistry[] Glucose [Mass/volume] in Ser um or Plasma [2345-7] 146 mg/dL N Blood chemistry[] Glucose [Mass/volume] in Ser um or Plasma [2345-7] 204 mg/dL N Glucose [Mass/volume] in Ser um or Plasma [2345-7] 204 mg/dL N Blood chemistry[[id number]] Glucose [Mass/volume] in Ser um or Plasma [2345-7] 367 mg/dL N Blood chemistry[] Glucose [Mass/volume] in Ser um or Plasma [2345-7] 245 mg/dL N Blood chemistry[] Glucose [Mass/volume] in Ser um or Plasma [2345-7] 174 mg/dL N Blood chemistry[] Glucose [Mass/volume] in Ser um or Plasma [2345-7] 285 mg/dL N Blood chemistry[] Glucose [Mass/volume] in Ser um or Plasma [2345-7] 197 mg/dL N Blood chemistry[] Glucose [Mass/volume] in Ser um or Plasma [2345-7] 245 mg/dL N Blood chemistry[] Glucose [Mass/volume] in Ser um or Plasma [2345-7] 167 mg/dL N Blood chemistry[] Glucose [Mass/volume] in Ser um or Plasma [2345-7] 221 mg/dL N Blood chemistry[] Glucose [Mass/volume] in Ser um or Plasma [2345-7] 244 mg/dL N Blood chemistry[] Glucose [Mass/volume] in Ser um or Plasma [2345-7] 231 mg/dL N Blood chemistry[] Glucose [Mass/volume] in Ser um or Plasma [2345-7] 274 mg/dL N Blood chemistry[] Glucose [Mass/volume] in Ser um or Plasma [2345-7] 274 mg/dL N Blood chemistry[] Glucose [Mass/volume] in Ser um or Plasma [2345-7] 253 mg/dL N Blood chemistry[] Glucose [Mass/volume] in Ser um or Plasma [2345-7] 308 mg/dL N Blood chemistry[] Glucose [Mass/volume] in Ser um or Plasma [2345-7] 373 mg/dL N Blood chemistry[] Glucose [Mass/volume] in Ser um or Plasma [2345-7] 156 mg/dL N Glucose [Mass/volume] in Ser um or Plasma [2345-7] 156 mg/dL N Blood chemistry[[id number]] Glucose [Mass/volume] in Ser um or Plasma [2345-7] 286 mg/dL N Blood chemistry[] Glucose [Mass/volume] in Ser um or Plasma [2345-7] 362 mg/dL N Blood chemistry[] Glucose [Mass/volume] in Ser um or Plasma [2345-7] 236 mg/dL N Blood chemistry[] Glucose [Mass/volume] in Ser um or Plasma [2345-7] 354 mg/dL N Blood chemistry[[id number]] Glucose [Mass/volume] in Ser um or Plasma [2345-7] 111 mg/dL N Blood chemistry[[id number]] Glucose [Mass/volume] in Ser um or Plasma [2345-7] 184 mg/dL N Blood chemistry[[id number]] Glucose [Mass/volume] in Ser um or Plasma [2345-7] 335 mg/dL N Blood chemistry[[id number]] Glucose [Mass/volume] in Ser um or Plasma [2345-7] 156 mg/dL N Blood chemistry[[id number]] Glucose [Mass/volume] in Ser um or Plasma [2345-7] 241 mg/dL N Blood chemistry[[id number]] Glucose [Mass/volume] in Ser um or Plasma [2345-7] 265 mg/dL N Allergies, adverse reactions, alerts Substance Reaction Date Status Type Arthrotec 50 03/03/2017 Non Drug Cephalexin 03/03/2017 Non Drug Immunizations Vaccine Route Date Status COVID-19 Vaccine Unassigned Route of Administration Completed COVID-19 Vaccine Unassigned Route of Administration Completed COVID-19 Vaccine Unassigned Route of Administration Completed COVID-19 Vaccine Unassigned Route of Administration Completed COVID-19 Vaccine Unassigned Route of Administration Completed COVID-19 Vaccine Unassigned Route of Administration Completed COVID-19 Vaccine Unassigned Route of Administration Completed COVID-19 Vaccine Unassigned Route of Administration Completed COVID-19 Vaccine Unassigned Route of Administration Completed Influenza Vaccine Unassigned Route of Administration 0 01/10/2024 Completed Influenza Vaccine Unassigned Route of Administration 0 01/08/2023 Completed Pneumococcal Vaccine Unassigned Route of Administratio n 02/25/2022 Completed Pneumococcal Vaccine Unassigned Route of Administratio n 08/01/2020 Completed Pneumococcal Vaccine Unassigned Route of Administratio n 12/03/2012 Completed RSV Vaccine Unassigned Route of Administration 2023 Completed COVID-19 Vaccine Unassigned Route of Administration Completed Medications Medication Instructions Route Dosage Frequency Start Date Stop Date Indications Status acetaminophen 325 mg tablet (acetaminophen ) 1 tablet, ORAL, Every 8 Hours - PRN, Give 1 tablet by mouth every 8 hours as needed for pain ORAL 1.0 8.0 h 2023 Active ammonium lactate 12 % cream (ammonium lactate) 1 application, TOPICAL, Twice A Day - PRN, Apply to bilateral arms topically every 12 hours as needed for Rash TOPICAL 1.0 12.0 h 2023 Active Aranesp (in polysorbate) (darbepoetin chris in polysorbat) 60 mcg/mL solution (Aranesp (in polysorbate) (darbepoetin chris in polysorbat)) 1ml, injection, To be given at Dialysis every Wednesday 1.0 2023 Anemia, unspecified Active Artificial Tears (polyvin alc) (polyvinyl alcohol) 1.4 % drops (Artificial Tears (polyvin alc) (polyvinyl alcohol)) 1 drop, ophthalmic (eye), Four Times A Day, 1 drop 4 times daily prn dryness 1.0 6.0 h 2023 Dry eye syndrome of bilateral lacrimal glands Active Aspercreme (lidocaine HCl) (lidocaine hcl) 4 % cream (Aspercreme (lidocaine HCl) (lidocaine hcl)) 1 application, TOPICAL, Once A Day on Wed, Wed, Wed, Apply to right arm dialysis graft topically one time a day every Wed, Wed, Wed for apply 30 minutes prior to dialysis TOPICAL 1.0 1.0 d 2023 Dependence on renal dialysis Active atorvastatin 20 mg tablet (atorvastatin) 1 tab, oral, At Bedtime oral 1.0 2023 Essential (primary) hypertension Active Biofreeze (menthol) (menthol) 4 % gel (Biofreeze (menthol) (menthol)) 1 application, TOPICAL, Twice A Day, LEFT HAND:APPLY TOPICALLY PER PLAN OF TREATMENT TWICE DAILY DX:PAIN TOPICAL 1.0 12.0 h 2023 Contracture, unspecified hand Active bisacodyl 10 mg suppository (bisacodyl) 1 application, RECTAL, Every day as needed, Insert 1 application rectally as needed for constipation daily prn RECTAL 1.0 1.0 d 2023 Active calcium acetate(phosph at bind) 667 mg capsule (calcium acetate(phosph at bind)) 1 capsule, oral, Three Times A Day, To be given with Tums oral 1.0 8.0 h 06/20 End stage renal disease Active carvedilol 12.5 mg tablet (carvedilol) 1 tablet, ORAL, Twice a day, Give 1 tablet by mouth two times a day for htn ORAL 1.0 12.0 h 2023 Essential (primary) hypertension Active folic acid 1 mg tablet (folic acid) 1 tablet, ORAL, Every day, Give 1 tablet by mouth one time a day for replacement ORAL 1.0 1.0 d 2023 Active furosemide 80 mg tablet (furosemide) 80 mg, oral, Once A Day oral 1.0 1.0 d 2023 Chronic ischemic heart disease, unspecified Active gabapentin 300 mg capsule (gabapentin) 1 capsule, ORAL, At bedtime, Give 1 capsule by mouth at bedtime for neuropathy ORAL 1.0 2023 Diabetes mellitus due to underlying condition with diabetic neuropathy, unspecified Active Glucagon Emergency Kit (human) (glucagon) 1 mg recon soln (Glucagon Emergency Kit (human) (glucagon)) 1mg, INTRAMUSC, Other, Inject 1 mg intramuscularly as needed for hypoglycemia for sugar <50 1.0 2023 Diabetes mellitus due to underlying condition with diabetic neuropathy, unspecified Active Glucose Gel (dextrose) 40 % gel (Glucose Gel (dextrose)) 1 tube, oral, Once A Day - PRN oral 1.0 1.0 d 2023 Diabetes mellitus due to underlying condition with diabetic neuropathy, unspecified Active Humulin 70/30 U-100 KwikPen (insulin nph and regular human) 100 unit/mL (70-30) insulin pen (Humulin 70/30 U-100 KwikPen (insulin nph and regular human)) see dose, subcutaneous, Twice A Day, give 54 units at 0600, give 56 units at 2000 subcutan eous 1.0 12.0 h 04/02 Diabetes mellitus due to underlying condition with diabetic neuropathy, unspecified Active hydrocortisone 1 % ointment (hydrocortison e) 1 application, topical, Once A Day - PRN, apply to rash topically as needed for itching daily topical 1.0 1.0 d 2023 Active insulin lispro 100 unit/mL insulin pen (insulin lispro) Per Sliding Scale, SUBCUT, Before Meals and At Bedtime, If Blood Sugar is less than 50, call MD.If Blood Sugar is 0 to 150, give 0 Units.If Blood Sugar is 151 to 200, give 2 Units.If Blood Sugar is 201 to 250, give 4 Units.If Blood Sugar is 251 to 300, give 6 Units.If Blood Sugar is 301 to 350, give 8 Units.If Blood Sugar is 351 to 400, give 10 Units.If Blood Sugar is greater than 400, call MD., Inject as per sliding scale: if 0 - 150 = 0 units; 151 - 200 = 2 units; 201 - 250 = 4 units; 251 - 300 = 6 units; 301 - 1.0 2023 Diabetes mellitus due to underlying condition with diabetic neuropathy, unspecified Active magnesium oxide 400 mg (241.3 mg magnesium) tablet (magnesium oxide) 1 tablet, ORAL, Every day, Give 1 tablet by mouth one time a day for replacement ORAL 1.0 1.0 d 2023 Chronic kidney disease, stage 4 (severe) Active midodrine 10 mg tablet (midodrine) 2 tablets, oral, Once A Day on Mon, Wed, Wed, SEND DOSE TO DIALYSIS WITH RESIDENT oral 1.0 1.0 d 04/10 End stage renal disease Active Mucus Relief ER (guaifenesin) 600 mg tablet extended release 12hr (Mucus Relief ER (guaifenesin)) 1 tablet, ORAL, Every 12 Hours - PRN, Give 1 tablet by mouth every 12 hours as needed for congestion ORAL 1.0 12.0 h 2023 Allergic rhinitis, unspecified Active Novolin 70-30 FlexPen U-100 (insulin nph and regular human) 100 unit/mL (70-30) insulin pen (Novolin 70-30 FlexPen U-100 (insulin nph and regular human)) 54, subcutaneous, Once A Day subcutan eous 1.0 1.0 d 05/12 Diabetes mellitus due to underlying condition with diabetic neuropathy, unspecified Active omeprazole 20 mg capsule,delaye d release(DR/EC) (omeprazole) 1 capsule, oral, Once A Day oral 1.0 1.0 d 2023 Active ondansetron HCl 4 mg tablet (ondansetron HCl) 1 tablet, ORAL, Every 8 Hours - PRN, Give 1 tablet by mouth every 8 hours as needed for nausea / vomitting ORAL 1.0 8.0 h 2023 Active Prilosec (omeprazole magnesium) 10 mg susp,delayed release for recon (Prilosec (omeprazole magnesium)) 2 tabs, oral, Once A Day oral 1.0 1.0 d 06/17 Gastro-esopha geal reflux disease without esophagitis Active Refresh Optive (carboxymethyl cellulose-glyc shira) 1-0.9 % drops,gel (Refresh Optive (carboxymethyl cellulose-glyc shira)) 1 drop, IN BOTH EYES, Twice a day, Instill 1 drop in both eyes two times a day for dry eyes 1.0 12.0 h 2023 Dry eye syndrome of bilateral lacrimal glands Active sertraline 25 mg tablet (sertraline) 1 tab, oral, Once A Day oral 1.0 1.0 d 2023 Depression, unspecified Active SPS (with sorbitol) (sodium polystyrene sulf-sorbtl) 15-20 gram/60 mL suspension (SPS (with sorbitol) (sodium polystyrene sulf-sorbtl)) 120ml, ORAL, Once A Day - PRN, Give 120 ml by mouth as needed for hyperkalemia give as directed per dialysis ORAL 1.0 1.0 d 2023 Active Tums (calcium carbonate) 200 mg calcium (500 mg) tablet,chewabl e (Tums (calcium carbonate)) 2 tablets, oral, With Meals - PRN oral 1.0 2023 Gastro-esopha geal reflux disease without esophagitis Active Humulin 70/30 U-100 KwikPen (insulin nph and regular human) 100 unit/mL (70-30) insulin pen (Humulin 70/30 U-100 KwikPen (insulin nph and regular human)) 56 units, subcutaneous, At Bedtime subcutan eous 1.0 04/02 Diabetes mellitus due to underlying condition with diabetic neuropathy, unspecified Active Humulin 70/30 U-100 KwikPen (insulin nph and regular human) 100 unit/mL (70-30) insulin pen (Humulin 70/30 U-100 KwikPen (insulin nph and regular human)) 50 units, subcutaneous, Once A Day subcutan eous 1.0 1.0 d 03/31 Diabetes mellitus due to underlying condition with diabetic neuropathy, unspecified Active Humulin 70/30 U-100 KwikPen (insulin nph and regular human) 100 unit/mL (70-30) insulin pen (Humulin 70/30 U-100 KwikPen (insulin nph and regular human)) 27 units, subcutaneous, Once A Day subcutan eous 1.0 1.0 d 03/14 Active Humulin 70/30 U-100 KwikPen (insulin nph and regular human) 100 unit/mL (70-30) insulin pen (Humulin 70/30 U-100 KwikPen (insulin nph and regular human)) 54, subcutaneous, Once A Day subcutan eous 1.0 1.0 d 04/02 Diabetes mellitus due to underlying condition with diabetic neuropathy, unspecified Active Humulin 70/30 U-100 KwikPen (insulin nph and regular human) 100 unit/mL (70-30) insulin pen (Humulin 70/30 U-100 KwikPen (insulin nph and regular human)) 50 units, subcutaneous, Once A Day subcutan eous 1.0 1.0 d 03/31 Diabetes mellitus due to underlying condition with diabetic neuropathy, unspecified Active midodrine 5 mg tablet (midodrine) 2 tabs, oral, Once A Day on Mon, Wed, Wed, SEND WITH RESIDENT TO DIALYSIS oral 1.0 1.0 d 03/30 Essential (primary) hypertension Active midodrine 10 mg tablet (midodrine) 2 tablets, oral, Once A Day on Mon, Wed, Wed, SEND TWO 10 TABS TO DIALYSIS WITH RESIDENT oral 1.0 1.0 d 2023 End stage renal disease Active Humulin 70/30 U-100 KwikPen (insulin nph and regular human) 100 unit/mL (70-30) insulin pen (Humulin 70/30 U-100 KwikPen (insulin nph and regular human)) 56 units, subcutaneous, At Bedtime subcutan eous 1.0 1.0 d 05/12 Diabetes mellitus due to underlying condition with diabetic neuropathy, unspecified Active Humulin 70/30 U-100 KwikPen (insulin nph and regular human) 100 unit/mL (70-30) insulin pen (Humulin 70/30 U-100 KwikPen (insulin nph and regular human)) see dose, subcutaneous, Twice A Day, give 54 units at 0600, give 56 units at 2000 subcutan eous 1.0 12.0 h 04/25 Diabetes mellitus due to underlying condition with diabetic neuropathy, unspecified Active Novolin 70-30 FlexPen U-100 (insulin nph and regular human) 100 unit/mL (70-30) insulin pen (Novolin 70-30 FlexPen U-100 (insulin nph and regular human)) 57, subcutaneous, Once A Day subcutan eous 1.0 1.0 d 06/26 Diabetes mellitus due to underlying condition with diabetic neuropathy, unspecified Active calcium acetate 667 mg tablet (calcium acetate) 1 tablet, oral, Three Times A Day on Wed, Wed, Mamie, Sat, give with tums oral 1.0 8.0 h 2024 Active calcium acetate(phosph at bind) 667 mg capsule (calcium acetate(phosph at bind)) 1 capsule, oral, Three Times A Day on Mon, Wed, Fri, To be given with Tums oral 1.0 8.0 h 2024 End stage renal disease Active Novolin 70-30 FlexPen U-100 (insulin nph and regular human) 100 unit/mL (70-30) insulin pen (Novolin 70-30 FlexPen U-100 (insulin nph and regular human)) 57 units, subcutaneous, Once A Day subcutan eous 1.0 1.0 d 07/30 Diabetes mellitus due to underlying condition with diabetic neuropathy, unspecified Active Novolin 70-30 FlexPen U-100 (insulin nph and regular human) 100 unit/mL (70-30) insulin pen (Novolin 70-30 FlexPen U-100 (insulin nph and regular human)) 56 units, subcutaneous, Once A Day subcutan eous 1.0 1.0 d 06/26 Diabetes mellitus due to underlying condition with diabetic neuropathy, unspecified Active Spikevax [id number](12y up)(PF) (covid vac 24-25(12up)(mo d)(pf)) 50 mcg/0.5 mL syringe (Spikevax (12y up)(PF) (covid vac 24-25(12up)(mo d)(pf))) 0.5ml, intramuscular, Once A Day intramus cular 1.0 1.0 d 07/26 Active Humulin 70/30 U-100 Insulin (insulin nph and regular human) 100 unit/mL (70-30) suspension (Humulin 70/30 U-100 Insulin (insulin nph and regular human)) 56 units, subcutaneous, At Bedtime subcutan eous 1.0 08/14 Active Humulin 70/30 U-100 Insulin (insulin nph and regular human) 100 unit/mL (70-30) suspension (Humulin 70/30 U-100 Insulin (insulin nph and regular human)) 57 units, subcutaneous, Once A Day subcutan eous 1.0 1.0 d 2024 Diabetes mellitus due to underlying condition with diabetic neuropathy, unspecified Active Novolin 70-30 FlexPen U-100 (insulin nph and regular human) 100 unit/mL (70-30) insulin pen (Novolin 70-30 FlexPen U-100 (insulin nph and regular human)) 56 units, subcutaneous, At Bedtime subcutan eous 1.0 2024 Diabetes mellitus due to underlying condition with diabetic neuropathy, unspecified Active Novolin 70-30 FlexPen U-100 (insulin nph and regular human) 100 unit/mL (70-30) insulin pen (Novolin 70-30 FlexPen U-100 (insulin nph and regular human)) 57 units, subcutaneous, Once A Day subcutan eous 1.0 1.0 d 08/14 Diabetes mellitus due to underlying condition with diabetic neuropathy, unspecified Active Vital Signs Date Vital Result Comment 04/04/2024 07:18 AM Body Weight 236.5 [lb_av] Body Mass Index 40.59 kg/m2 04/03/2024 10:09 AM Temperature 98 [degF] Oxygen Saturation 95 % Respiratory Rate 16 /min Heart Rate 67 /min Blood Pressure Systolic 114 mm[Hg] Blood Pressure Diastolic 68 mm[Hg] 04/03/2024 05:58 AM Body Weight 236.6 [lb_av] Body Mass Index 40.61 kg/m2 04/02/2024 05:57 AM Body Weight 235 [lb_av] Body Mass Index 40.33 kg/m2 04/01/2024 07:25 AM Body Weight 234.2 [lb_av] Body Mass Index 40.2 kg/m2 03/31/2024 06:55 AM Body Weight 234.2 [lb_av] Body Mass Index 40.2 kg/m2 03/30/2024 07:05 AM Body Weight 234.2 [lb_av] Body Mass Index 40.2 kg/m2 03/29/2024 09:02 PM Temperature 98.3 [degF] Oxygen Saturation 98 % Respiratory Rate 16 /min Heart Rate 73 /min Blood Pressure Systolic 155 mm[Hg] Blood Pressure Diastolic 74 mm[Hg] 03/29/2024 10:39 AM Temperature 98.2 [degF] Oxygen Saturation 98 % Respiratory Rate 18 /min Heart Rate 80 /min Blood Pressure Systolic 112 mm[Hg] Blood Pressure Diastolic 66 mm[Hg] 03/29/2024 07:23 AM Body Weight 234.6 [lb_av] Body Mass Index 40.26 kg/m2 03/28/2024 07:35 AM Body Weight 234 [lb_av] Body Mass Index 40.16 kg/m2 03/27/2024 06:10 PM Temperature 98.1 [degF] 03/27/2024 09:55 AM Temperature 98.4 [degF] Oxygen Saturation 95 % Respiratory Rate 18 /min Heart Rate 67 /min Blood Pressure Systolic 110 mm[Hg] Blood Pressure Diastolic 70 mm[Hg] 03/27/2024 06:42 AM Body Weight 234.2 [lb_av] Body Mass Index 40.2 kg/m2 03/26/2024 04:09 PM Temperature 98 [degF] 03/26/2024 06:43 AM Body Weight 233.6 [lb_av] Body Mass Index 40.09 kg/m2 03/25/2024 03:15 PM Temperature 98.1 [degF] 03/25/2024 07:09 AM Body Weight 233.2 [lb_av] Body Mass Index 40.02 kg/m2 03/24/2024 09:25 AM Temperature 98.6 [degF] Oxygen Saturation 98 % Respiratory Rate 18 /min Heart Rate 75 /min Blood Pressure Systolic 108 mm[Hg] Blood Pressure Diastolic 70 mm[Hg] 03/24/2024 06:42 AM Body Weight 236.4 [lb_av] Body Mass Index 40.57 kg/m2 03/23/2024 06:34 AM Body Weight 237 [lb_av] Body Mass Index 40.68 kg/m2 03/22/2024 03:29 PM Body Weight 238.2 [lb_av] Body Mass Index 40.88 kg/m2 03/22/2024 10:15 AM Temperature 98 [degF] Oxygen Saturation 97 % Respiratory Rate 18 /min Heart Rate 56 /min Blood Pressure Systolic 136 mm[Hg] Blood Pressure Diastolic 74 mm[Hg] 03/22/2024 02:57 AM Body Weight 234.6 [lb_av] Body Mass Index 40.26 kg/m2 03/21/2024 01:41 PM Body Weight 232.4 [lb_av] Body Mass Index 39.89 kg/m2 03/20/2024 06:46 AM Body Weight 235.8 [lb_av] Body Mass Index 40.47 kg/m2 03/19/2024 06:54 AM Body Weight 243.2 [lb_av] Body Mass Index 41.74 kg/m2 03/18/2024 07:14 AM Body Weight 236.6 [lb_av] Body Mass Index 40.61 kg/m2 03/17/2024 05:29 AM Body Weight 232.8 [lb_av] Body Mass Index 39.96 kg/m2 03/16/2024 06:45 AM Body Weight 228.6 [lb_av] Body Mass Index 39.23 kg/m2 03/15/2024 10:14 AM Temperature 98.1 [degF] Oxygen Saturation 97 % Respiratory Rate 18 /min Heart Rate 74 /min Blood Pressure Systolic 108 mm[Hg] Blood Pressure Diastolic 77 mm[Hg] 03/15/2024 06:55 AM Body Weight 234 [lb_av] Body Mass Index 40.16 kg/m2 03/14/2024 06:59 AM Body Weight 230 [lb_av] Body Mass Index 39.48 kg/m2 03/13/2024 11:07 AM Body Weight 237.6 [lb_av] Body Mass Index 40.78 kg/m2 03/13/2024 09:42 AM Oxygen Saturation 93 % Respiratory Rate 18 /min Heart Rate 63 /min Blood Pressure Systolic 108 mm[Hg] Blood Pressure Diastolic 70 mm[Hg] 03/11/2024 12:38 PM Body Weight 238 [lb_av] Body Mass Index 40.85 kg/m2 03/10/2024 09:30 AM Oxygen Saturation 93 % Respiratory Rate 18 /min Heart Rate 69 /min Blood Pressure Systolic 114 mm[Hg] Blood Pressure Diastolic 70 mm[Hg] 03/10/2024 07:41 AM Body Weight 235.6 [lb_av] Body Mass Index 40.44 kg/m2 03/09/2024 06:32 AM Body Weight 232.6 [lb_av] Body Mass Index 39.92 kg/m2 03/08/2024 10:28 AM Oxygen Saturation 97 % Respiratory Rate 18 /min Heart Rate 70 /min Blood Pressure Systolic 108 mm[Hg] Blood Pressure Diastolic 77 mm[Hg] 03/08/2024 10:08 AM Body Weight 236.7 [lb_av] Body Mass Index 40.63 kg/m2 03/07/2024 09:56 AM Body Weight 235 [lb_av] Body Mass Index 40.33 kg/m2 03/07/2024 07:24 AM Body Weight 234.6 [lb_av] Body Mass Index 40.26 kg/m2 03/06/2024 07:23 AM Body Weight 237.2 [lb_av] Body Mass Index 40.71 kg/m2 03/05/2024 06:45 AM Body Weight 237.8 [lb_av] Body Mass Index 40.81 kg/m2 03/04/2024 06:12 AM Body Weight 231.4 [lb_av] Body Mass Index 39.72 kg/m2 03/03/2024 11:59 AM Body Weight 240 [lb_av] Body Mass Index 41.19 kg/m2 03/02/2024 07:00 AM Body Weight 232 [lb_av] Body Mass Index 39.82 kg/m2 03/01/2024 06:38 AM Body Weight 237 [lb_av] Body Mass Index 40.68 kg/m2 02/29/2024 06:43 AM Body Weight 235.4 [lb_av] Body Mass Index 40.4 kg/m2 02/28/2024 06:13 AM Body Weight 235.5 [lb_av] Body Mass Index 40.42 kg/m2 02/27/2024 06:52 AM Body Weight 236.8 [lb_av] Body Mass Index 40.64 kg/m2 02/26/2024 07:05 AM Body Weight 232.6 [lb_av] Body Mass Index 39.92 kg/m2 02/25/2024 06:52 AM Body Weight 235 [lb_av] Body Mass Index 40.33 kg/m2 02/24/2024 02:09 PM Body Weight 232.8 [lb_av] Body Mass Index 39.96 kg/m2 02/23/2024 06:23 AM Body Weight 236.6 [lb_av] Body Mass Index 40.61 kg/m2 02/22/2024 11:42 AM Body Weight 234 [lb_av] Body Mass Index 40.16 kg/m2 02/21/2024 07:20 AM Body Weight 235 [lb_av] Body Mass Index 40.33 kg/m2 02/20/2024 07:24 AM Body Weight 235.4 [lb_av] Body Mass Index 40.4 kg/m2 02/19/2024 01:17 AM Body Weight 232.6 [lb_av] Body Mass Index 39.92 kg/m2 02/18/2024 11:31 AM Body Weight 236.5 [lb_av] Body Mass Index 40.59 kg/m2 02/18/2024 01:48 AM Body Weight 236.5 [lb_av] Body Mass Index 40.59 kg/m2 02/17/2024 06:33 AM Body Weight 236 [lb_av] Body Mass Index 40.5 kg/m2 02/16/2024 11:12 AM Body Weight 236.4 [lb_av] Body Mass Index 40.57 kg/m2 02/15/2024 12:35 PM Body Weight 231.5 [lb_av] Body Mass Index 39.73 kg/m2 02/13/2024 10:56 AM Body Weight 230.8 [lb_av] Body Mass Index 39.61 kg/m2 02/12/2024 07:22 AM Body Weight 232.6 [lb_av] Body Mass Index 39.92 kg/m2 02/11/2024 06:58 AM Body Weight 234 [lb_av] Body Mass Index 40.16 kg/m2 02/10/2024 06:53 AM Body Weight 234.5 [lb_av] Body Mass Index 40.25 kg/m2 02/09/2024 10:11 AM Body Weight 233.4 [lb_av] Body Mass Index 40.06 kg/m2 02/08/2024 06:59 AM Body Weight 233 [lb_av] Body Mass Index 39.99 kg/m2 02/07/2024 09:45 AM Body Weight 237 [lb_av] Body Mass Index 40.68 kg/m2 02/06/2024 07:00 AM Body Weight 236.4 [lb_av] Body Mass Index 40.57 kg/m2 02/06/2024 06:36 AM Body Weight 234.5 [lb_av] Body Mass Index 40.25 kg/m2 02/05/2024 06:21 AM Body Weight 232.3 [lb_av] Body Mass Index 39.87 kg/m2 02/04/2024 06:52 AM Body Weight 234.6 [lb_av] Body Mass Index 40.26 kg/m2 02/02/2024 10:18 AM Body Weight 234 [lb_av] Body Mass Index 40.16 kg/m2 02/01/2024 06:54 AM Body Weight 237.8 [lb_av] Body Mass Index 40.81 kg/m2 01/31/2024 11:57 AM Body Weight 238.6 [lb_av] Body Mass Index 40.95 kg/m2 01/30/2024 11:24 AM Body Weight 236.3 [lb_av] Body Mass Index 40.56 kg/m2 01/29/2024 11:19 AM Body Weight 235.8 [lb_av] Body Mass Index 40.47 kg/m2 01/28/2024 02:52 PM Body Weight 234.4 [lb_av] Body Mass Index 40.23 kg/m2 01/27/2024 02:58 PM Body Weight 234 [lb_av] Body Mass Index 40.16 kg/m2 01/27/2024 06:02 AM Body Weight 237.5 [lb_av] Body Mass Index 40.76 kg/m2 01/26/2024 10:24 AM Body Weight 239.4 [lb_av] Body Mass Index 41.09 kg/m2 01/24/2024 06:21 AM Body Weight 234.6 [lb_av] Body Mass Index 40.26 kg/m2 01/23/2024 06:59 AM Body Weight 232.2 [lb_av] Body Mass Index 39.85 kg/m2 01/21/2024 11:06 AM Body Weight 233.2 [lb_av] Body Mass Index 40.02 kg/m2 01/20/2024 06:45 AM Body Weight 232 [lb_av] Body Mass Index 39.82 kg/m2 01/19/2024 06:34 AM Body Weight 237.2 [lb_av] Body Mass Index 40.71 kg/m2 01/17/2024 05:13 PM Body Weight 237 [lb_av] Body Mass Index 40.68 kg/m2 01/16/2024 11:23 AM Body Weight 239.5 [lb_av] Body Mass Index 41.11 kg/m2 01/14/2024 07:00 AM Body Weight 239.3 [lb_av] Body Mass Index 41.07 kg/m2 01/13/2024 07:03 AM Body Weight 235.6 [lb_av] Body Mass Index 40.44 kg/m2 01/12/2024 06:29 AM Body Weight 238.2 [lb_av] Body Mass Index 40.88 kg/m2 01/11/2024 11:33 AM Body Weight 238 [lb_av] Body Mass Index 40.85 kg/m2 01/10/2024 07:29 AM Body Weight 237.6 [lb_av] Body Mass Index 40.78 kg/m2 01/09/2024 10:14 AM Body Weight 240.6 [lb_av] Body Mass Index 41.29 kg/m2 01/06/2024 06:29 AM Body Weight 237.3 [lb_av] Body Mass Index 40.73 kg/m2 09/18/2023 01:31 PM Body Height 64 [in_us] 04/05/2024 06:47 AM Body Weight 235.8 [lb_av] Body Mass Index 40.47 kg/m2 04/05/2024 10:19 AM Temperature 98 [degF] Oxygen Saturation 97 % Respiratory Rate 18 /min Heart Rate 80 /min Blood Pressure Systolic 108 mm[Hg] Blood Pressure Diastolic 67 mm[Hg] 04/06/2024 12:10 PM Body Weight 232.6 [lb_av] Body Mass Index 39.92 kg/m2 04/07/2024 06:46 AM Body Weight 236 [lb_av] Body Mass Index 40.5 kg/m2 04/08/2024 06:34 AM Body Weight 226.4 [lb_av] Body Mass Index 38.86 kg/m2 04/09/2024 06:36 AM Body Weight 233 [lb_av] Body Mass Index 39.99 kg/m2 04/10/2024 09:12 AM Temperature 98.4 [degF] Oxygen Saturation 90 % Respiratory Rate 18 /min Heart Rate 64 /min Blood Pressure Systolic 100 mm[Hg] Blood Pressure Diastolic 64 mm[Hg] 04/10/2024 06:59 AM Body Weight 237 [lb_av] Body Mass Index 40.68 kg/m2 04/11/2024 06:41 AM Body Weight 232.8 [lb_av] Body Mass Index 39.96 kg/m2 04/12/2024 06:25 AM Body Weight 237 [lb_av] Body Mass Index 40.68 kg/m2 04/14/2024 11:06 AM Temperature 98.1 [degF] Oxygen Saturation 97 % Respiratory Rate 18 /min Heart Rate 80 /min Blood Pressure Systolic 107 mm[Hg] Blood Pressure Diastolic 66 mm[Hg] 04/14/2024 05:53 AM Body Weight 239.4 [lb_av] Body Mass Index 41.09 kg/m2 04/15/2024 07:47 AM Body Weight 236.2 [lb_av] Body Mass Index 40.54 kg/m2 04/16/2024 06:00 AM Body Weight 233.8 [lb_av] Body Mass Index 40.13 kg/m2 04/17/2024 08:45 AM Temperature 98 [degF] Oxygen Saturation 97 % Respiratory Rate 18 /min Heart Rate 78 /min Blood Pressure Systolic 107 mm[Hg] Blood Pressure Diastolic 66 mm[Hg] 04/17/2024 06:46 AM Body Weight 236.8 [lb_av] Body Mass Index 40.64 kg/m2 04/18/2024 12:49 PM Body Weight 232.2 [lb_av] Body Mass Index 39.85 kg/m2 04/18/2024 07:10 AM Body Weight 232.2 [lb_av] Body Mass Index 39.85 kg/m2 04/19/2024 10:27 AM Body Weight 237 [lb_av] Body Mass Index 40.68 kg/m2 04/20/2024 06:19 AM Temperature 98 [degF] Oxygen Saturation 97 % Respiratory Rate 18 /min Heart Rate 75 /min Blood Pressure Systolic 112 mm[Hg] Blood Pressure Diastolic 58 mm[Hg] 04/21/2024 06:16 AM Body Weight 233.6 [lb_av] Body Mass Index 40.09 kg/m2 04/24/2024 09:23 AM Temperature 97.8 [degF] Oxygen Saturation 93 % Respiratory Rate 18 /min Heart Rate 75 /min Blood Pressure Systolic 126 mm[Hg] Blood Pressure Diastolic 70 mm[Hg] 04/24/2024 02:10 PM Body Weight 231 [lb_av] Body Mass Index 39.65 kg/m2 04/25/2024 09:44 AM Body Weight 229 [lb_av] Body Mass Index 39.3 kg/m2 04/25/2024 09:05 AM Body Weight 229 [lb_av] Body Mass Index 39.3 kg/m2 04/26/2024 07:35 AM Body Weight 230 [lb_av] Body Mass Index 39.48 kg/m2 04/27/2024 08:01 PM Temperature 98.2 [degF] Oxygen Saturation 95 % Respiratory Rate 18 /min Heart Rate 70 /min Blood Pressure Systolic 148 mm[Hg] Blood Pressure Diastolic 70 mm[Hg] 04/27/2024 11:04 AM Temperature 98.3 [degF] Oxygen Saturation 96 % Respiratory Rate 18 /min Heart Rate 70 /min Blood Pressure Systolic 107 mm[Hg] Blood Pressure Diastolic 66 mm[Hg] 04/27/2024 06:53 AM Body Weight 232.5 [lb_av] Body Mass Index 39.9 kg/m2 04/28/2024 09:45 AM Temperature 98 [degF] Oxygen Saturation 96 % Respiratory Rate 18 /min Heart Rate 78 /min Blood Pressure Systolic 111 mm[Hg] Blood Pressure Diastolic 64 mm[Hg] 04/28/2024 06:15 AM Body Weight 231 [lb_av] Body Mass Index 39.65 kg/m2 04/30/2024 06:43 AM Body Weight 226.4 [lb_av] Body Mass Index 38.86 kg/m2 05/01/2024 06:48 AM Body Weight 237.4 [lb_av] Body Mass Index 40.75 kg/m2 05/01/2024 09:41 AM Temperature 98.2 [degF] Oxygen Saturation 97 % Respiratory Rate 18 /min Heart Rate 78 /min Blood Pressure Systolic 111 mm[Hg] Blood Pressure Diastolic 64 mm[Hg] 05/02/2024 06:28 AM Body Weight 230.8 [lb_av] Body Mass Index 39.61 kg/m2 05/03/2024 08:55 AM Temperature 98.1 [degF] Oxygen Saturation 98 % Respiratory Rate 18 /min Heart Rate 78 /min Blood Pressure Systolic 107 mm[Hg] Blood Pressure Diastolic 66 mm[Hg] 05/04/2024 06:39 AM Body Weight 229.6 [lb_av] Body Mass Index 39.41 kg/m2 05/05/2024 07:04 AM Body Weight 236.2 [lb_av] Body Mass Index 40.54 kg/m2 05/05/2024 09:53 AM Temperature 97.9 [degF] Oxygen Saturation 95 % Respiratory Rate 16 /min Heart Rate 68 /min Blood Pressure Systolic 134 mm[Hg] Blood Pressure Diastolic 68 mm[Hg] 05/06/2024 08:22 AM Body Weight 234.5 [lb_av] Body Mass Index 40.25 kg/m2 05/07/2024 07:13 AM Body Weight 235.6 [lb_av] Body Mass Index 40.44 kg/m2 05/08/2024 09:48 AM Temperature 98.1 [degF] Oxygen Saturation 92 % Respiratory Rate 18 /min Heart Rate 59 /min Blood Pressure Systolic 122 mm[Hg] Blood Pressure Diastolic 68 mm[Hg] 05/09/2024 06:55 AM Body Weight 232.2 [lb_av] Body Mass Index 39.85 kg/m2 05/10/2024 09:59 AM Temperature 98.2 [degF] Oxygen Saturation 96 % Respiratory Rate 18 /min Heart Rate 78 /min Blood Pressure Systolic 110 mm[Hg] Blood Pressure Diastolic 67 mm[Hg] 05/10/2024 06:59 AM Body Weight 234.8 [lb_av] Body Mass Index 40.3 kg/m2 05/11/2024 12:32 PM Body Weight 235.4 [lb_av] Body Mass Index 40.4 kg/m2 05/12/2024 06:33 AM Body Weight 234.6 [lb_av] Body Mass Index 40.26 kg/m2 05/14/2024 06:10 AM Body Weight 233.8 [lb_av] Body Mass Index 40.13 kg/m2 05/15/2024 10:33 AM Temperature 98.4 [degF] Oxygen Saturation 93 % Respiratory Rate 16 /min Heart Rate 58 /min Blood Pressure Systolic 104 mm[Hg] Blood Pressure Diastolic 59 mm[Hg] 05/15/2024 06:41 AM Body Weight 235.8 [lb_av] Body Mass Index 40.47 kg/m2 05/17/2024 09:37 AM Temperature 97.8 [degF] Oxygen Saturation 97 % Respiratory Rate 18 /min Heart Rate 77 /min Blood Pressure Systolic 108 mm[Hg] Blood Pressure Diastolic 61 mm[Hg] 05/18/2024 06:45 AM Body Weight 228.6 [lb_av] Body Mass Index 39.23 kg/m2 05/19/2024 07:24 AM Temperature 98.3 [degF] Oxygen Saturation 94 % Respiratory Rate 18 /min Heart Rate 76 /min Blood Pressure Systolic 118 mm[Hg] Blood Pressure Diastolic 62 mm[Hg] 05/19/2024 06:18 AM Body Weight 230.6 [lb_av] Body Mass Index 39.58 kg/m2 05/20/2024 06:57 AM Body Weight 229.2 [lb_av] Body Mass Index 39.34 kg/m2 05/22/2024 09:35 AM Temperature 98.2 [degF] Oxygen Saturation 96 % Respiratory Rate 18 /min Heart Rate 70 /min Blood Pressure Systolic 122 mm[Hg] Blood Pressure Diastolic 66 mm[Hg] 05/22/2024 09:53 AM Body Weight 233.4 [lb_av] Body Mass Index 40.06 kg/m2 05/23/2024 11:28 AM Body Weight 231.2 [lb_av] Body Mass Index 39.68 kg/m2 05/23/2024 10:00 AM Body Weight 230 [lb_av] Body Mass Index 39.48 kg/m2 05/24/2024 09:02 AM Temperature 97.8 [degF] Oxygen Saturation 96 % Respiratory Rate 18 /min Heart Rate 75 /min Blood Pressure Systolic 120 mm[Hg] Blood Pressure Diastolic 62 mm[Hg] 05/24/2024 06:16 AM Body Weight 231.6 [lb_av] Body Mass Index 39.75 kg/m2 05/26/2024 06:42 AM Body Weight 236.6 [lb_av] Body Mass Index 40.61 kg/m2 05/27/2024 06:49 AM Body Weight 232 [lb_av] Body Mass Index 39.82 kg/m2 05/28/2024 04:45 PM Temperature 98.5 [degF] Oxygen Saturation 97 % Respiratory Rate 16 /min Heart Rate 64 /min Blood Pressure Systolic 137 mm[Hg] Blood Pressure Diastolic 65 mm[Hg] 05/29/2024 06:48 AM Body Weight 230.4 [lb_av] Body Mass Index 39.54 kg/m2 05/30/2024 06:03 AM Body Weight 233.5 [lb_av] Body Mass Index 40.08 kg/m2 05/31/2024 09:17 AM Temperature 98 [degF] Oxygen Saturation 96 % Respiratory Rate 18 /min Heart Rate 82 /min Blood Pressure Systolic 110 mm[Hg] Blood Pressure Diastolic 58 mm[Hg] 05/31/2024 03:27 PM Body Weight 237 [lb_av] Body Mass Index 40.68 kg/m2 06/01/2024 01:19 PM Body Weight 237 [lb_av] Body Mass Index 40.68 kg/m2 06/02/2024 06:42 AM Temperature 98.2 [degF] Heart Rate 74 /min Blood Pressure Systolic 94 mm[Hg] Blood Pressure Diastolic 42 mm[Hg] 06/02/2024 06:32 AM Body Weight 235.8 [lb_av] Body Mass Index 40.47 kg/m2 06/03/2024 06:30 AM Body Weight 234.6 [lb_av] Body Mass Index 40.26 kg/m2 06/05/2024 06:15 AM Body Weight 237.8 [lb_av] Body Mass Index 40.81 kg/m2 06/05/2024 09:52 AM Temperature 97.6 [degF] Oxygen Saturation 93 % Respiratory Rate 18 /min Heart Rate 81 /min Blood Pressure Systolic 130 mm[Hg] Blood Pressure Diastolic 84 mm[Hg] 06/06/2024 01:32 PM Body Weight 236 [lb_av] Body Mass Index 40.5 kg/m2 06/07/2024 06:19 AM Temperature 97.9 [degF] Oxygen Saturation 95 % Respiratory Rate 18 /min Heart Rate 85 /min Blood Pressure Systolic 122 mm[Hg] Blood Pressure Diastolic 68 mm[Hg] 06/07/2024 09:46 AM Temperature 98.3 [degF] Oxygen Saturation 93 % Respiratory Rate 18 /min Heart Rate 72 /min Blood Pressure Systolic 118 mm[Hg] Blood Pressure Diastolic 56 mm[Hg] 06/07/2024 02:24 PM Body Weight 235 [lb_av] Body Mass Index 40.33 kg/m2 06/10/2024 06:53 AM Body Weight 234.6 [lb_av] Body Mass Index 40.26 kg/m2 06/11/2024 06:36 AM Body Weight 235.6 [lb_av] Body Mass Index 40.44 kg/m2 06/12/2024 11:26 AM Temperature 98.4 [degF] Oxygen Saturation 96 % Respiratory Rate 18 /min Heart Rate 77 /min Blood Pressure Systolic 122 mm[Hg] Blood Pressure Diastolic 76 mm[Hg] 06/13/2024 06:55 AM Body Weight 235.6 [lb_av] Body Mass Index 40.44 kg/m2 06/14/2024 11:35 AM Body Weight 236.8 [lb_av] Body Mass Index 40.64 kg/m2 06/14/2024 09:20 AM Temperature 98 [degF] Oxygen Saturation 95 % Respiratory Rate 18 /min Heart Rate 74 /min Blood Pressure Systolic 143 mm[Hg] Blood Pressure Diastolic 72 mm[Hg] 06/15/2024 06:43 AM Body Weight 233.8 [lb_av] Body Mass Index 40.13 kg/m2 06/16/2024 05:30 AM Body Weight 236.2 [lb_av] Body Mass Index 40.54 kg/m2 06/17/2024 06:43 AM Body Weight 234.4 [lb_av] Body Mass Index 40.23 kg/m2 06/18/2024 06:47 AM Body Weight 237 [lb_av] Body Mass Index 40.68 kg/m2 06/19/2024 06:26 AM Body Weight 241.4 [lb_av] Body Mass Index 41.43 kg/m2 06/20/2024 07:21 AM Body Weight 233 [lb_av] Body Mass Index 39.99 kg/m2 06/23/2024 05:03 AM Temperature 98.2 [degF] Oxygen Saturation 96 % Respiratory Rate 16 /min Heart Rate 77 /min Blood Pressure Systolic 137 mm[Hg] Blood Pressure Diastolic 63 mm[Hg] 06/23/2024 06:10 AM Body Weight 238.5 [lb_av] Body Mass Index 40.93 kg/m2 06/24/2024 11:40 AM Body Weight 232.2 [lb_av] Body Mass Index 39.85 kg/m2 06/25/2024 06:51 AM Body Weight 233.6 [lb_av] Body Mass Index 40.09 kg/m2 06/26/2024 06:23 AM Body Weight 239.6 [lb_av] Body Mass Index 41.12 kg/m2 06/27/2024 07:21 AM Body Weight 235 [lb_av] Body Mass Index 40.33 kg/m2 06/28/2024 06:50 AM Body Weight 233.6 [lb_av] Body Mass Index 40.09 kg/m2 06/29/2024 06:54 AM Body Weight 232.6 [lb_av] Body Mass Index 39.92 kg/m2 06/30/2024 06:20 AM Body Weight 234.5 [lb_av] Body Mass Index 40.25 kg/m2 07/01/2024 06:45 AM Body Weight 230.4 [lb_av] Body Mass Index 39.54 kg/m2 07/02/2024 11:05 AM Body Weight 233.6 [lb_av] Body Mass Index 40.09 kg/m2 07/03/2024 06:16 AM Body Weight 237 [lb_av] Body Mass Index 40.68 kg/m2 07/04/2024 07:02 AM Body Weight 233.4 [lb_av] Body Mass Index 40.06 kg/m2 07/05/2024 06:14 AM Body Weight 237.8 [lb_av] Body Mass Index 40.81 kg/m2 07/07/2024 06:16 AM Body Weight 233.2 [lb_av] Body Mass Index 40.02 kg/m2 07/08/2024 12:13 PM Body Weight 236.8 [lb_av] Body Mass Index 40.64 kg/m2 07/09/2024 10:07 AM Body Weight 237 [lb_av] Body Mass Index 40.68 kg/m2 07/10/2024 05:59 AM Body Weight 238.5 [lb_av] Body Mass Index 40.93 kg/m2 07/11/2024 07:38 AM Body Weight 236.4 [lb_av] Body Mass Index 40.57 kg/m2 07/12/2024 06:25 AM Body Weight 234.8 [lb_av] Body Mass Index 40.3 kg/m2 07/13/2024 06:51 AM Body Weight 233 [lb_av] Body Mass Index 39.99 kg/m2 07/14/2024 06:32 AM Body Weight 236.4 [lb_av] Body Mass Index 40.57 kg/m2 07/15/2024 06:12 AM Body Weight 235.6 [lb_av] Body Mass Index 40.44 kg/m2 07/16/2024 06:49 AM Body Weight 237.2 [lb_av] Body Mass Index 40.71 kg/m2 07/17/2024 06:55 AM Body Weight 237 [lb_av] Body Mass Index 40.68 kg/m2 07/18/2024 06:31 AM Body Weight 233 [lb_av] Body Mass Index 39.99 kg/m2 07/19/2024 06:30 AM Body Weight 237.2 [lb_av] Body Mass Index 40.71 kg/m2 07/20/2024 11:41 AM Body Weight 236 [lb_av] Body Mass Index 40.5 kg/m2 07/21/2024 06:34 AM Body Weight 235.7 [lb_av] Body Mass Index 40.45 kg/m2 07/22/2024 06:54 AM Body Weight 231.2 [lb_av] Body Mass Index 39.68 kg/m2 07/22/2024 11:36 AM Body Weight 226.4 [lb_av] Body Mass Index 38.86 kg/m2 07/23/2024 07:19 AM Body Weight 234.4 [lb_av] Body Mass Index 40.23 kg/m2 07/24/2024 06:15 AM Body Weight 235.8 [lb_av] Body Mass Index 40.47 kg/m2 07/25/2024 06:59 AM Body Weight 230 [lb_av] Body Mass Index 39.48 kg/m2 07/26/2024 06:42 AM Body Weight 235.4 [lb_av] Body Mass Index 40.4 kg/m2 07/27/2024 06:50 AM Body Weight 229.4 [lb_av] Body Mass Index 39.37 kg/m2 07/28/2024 06:25 AM Body Weight 230.9 [lb_av] Body Mass Index 39.63 kg/m2 07/29/2024 06:25 AM Body Weight 231.5 [lb_av] Body Mass Index 39.73 kg/m2 07/31/2024 06:57 AM Body Weight 226.8 [lb_av] Body Mass Index 38.93 kg/m2 08/02/2024 06:50 AM Body Weight 231 [lb_av] Body Mass Index 39.65 kg/m2 08/03/2024 05:59 AM Body Weight 231 [lb_av] Body Mass Index 39.65 kg/m2 08/04/2024 07:33 AM Body Weight 234 [lb_av] Body Mass Index 40.16 kg/m2 08/05/2024 06:53 AM Body Weight 230 [lb_av] Body Mass Index 39.48 kg/m2 08/06/2024 06:33 AM Body Weight 233.8 [lb_av] Body Mass Index 40.13 kg/m2 08/07/2024 06:06 AM Body Weight 234.8 [lb_av] Body Mass Index 40.3 kg/m2 08/09/2024 09:29 AM Body Weight 234.3 [lb_av] Body Mass Index 40.21 kg/m2 08/10/2024 07:21 AM Body Weight 232.6 [lb_av] Body Mass Index 39.92 kg/m2 08/11/2024 05:06 AM Temperature 98.6 [degF] Heart Rate 82 /min Blood Pressure Systolic 159 mm[Hg] Blood Pressure Diastolic 73 mm[Hg] 08/11/2024 06:08 AM Body Weight 234.6 [lb_av] Body Mass Index 40.26 kg/m2 08/12/2024 06:58 AM Body Weight 233.6 [lb_av] Body Mass Index 40.09 kg/m2 08/13/2024 09:46 AM Body Weight 235.6 [lb_av] Body Mass Index 40.44 kg/m2 08/14/2024 06:00 AM Body Weight 237.8 [lb_av] Body Mass Index 40.81 kg/m2 08/15/2024 03:42 PM Body Weight 233.6 [lb_av] Body Mass Index 40.09 kg/m2 08/16/2024 06:01 AM Body Weight 236.2 [lb_av] Body Mass Index 40.54 kg/m2 08/18/2024 05:28 AM Body Weight 234 [lb_av] Body Mass Index 40.16 kg/m2 08/19/2024 09:56 AM Body Weight 234 [lb_av] Body Mass Index 40.16 kg/m2 08/19/2024 06:41 AM Body Weight 236.3 [lb_av] Body Mass Index 40.56 kg/m2 08/20/2024 06:50 AM Body Weight 235.8 [lb_av] Body Mass Index 40.47 kg/m2 08/21/2024 06:24 AM Body Weight 238.6 [lb_av] Body Mass Index 40.95 kg/m2 08/22/2024 06:59 AM Body Weight 231.3 [lb_av] Body Mass Index 39.7 kg/m2 08/23/2024 06:25 AM Body Weight 324.2 [lb_av] Body Mass Index 55.64 kg/m2 08/24/2024 06:38 AM Body Weight 235.6 [lb_av] Body Mass Index 40.44 kg/m2 08/24/2024 03:00 PM Body Weight 229.4 [lb_av] Body Mass Index 39.37 kg/m2 08/25/2024 06:17 AM Temperature 97.9 [degF] Oxygen Saturation 96 % Respiratory Rate 18 /min Heart Rate 70 /min Blood Pressure Systolic 119 mm[Hg] Blood Pressure Diastolic 54 mm[Hg] 08/26/2024 08:30 AM Body Weight 228.6 [lb_av] Body Mass Index 39.23 kg/m2 08/27/2024 06:49 AM Body Weight 228.2 [lb_av] Body Mass Index 39.17 kg/m2 08/28/2024 02:13 AM Temperature 98.4 [degF] Oxygen Saturation 98 % Respiratory Rate 18 /min Heart Rate 82 /min Blood Pressure Systolic 122 mm[Hg] Blood Pressure Diastolic 80 mm[Hg] 08/28/2024 06:50 AM Body Weight 228 [lb_av] Body Mass Index 39.13 kg/m2 Social History No smoking Hx information available Encounters Type CPT Code Date Location Provider Indication s encounter report 12/01/2012 12:00 AM Tsering Brown MD Advance Directives Directive Description Verification Date Supporting Document(s) Resuscitation
[2024-11-03 09:28] LABS: Hemoglobin 9.3 g/dL (12.0-16.0)
== END 2024-11-03 09:11 | disposition home or self-care (01) ==
LOC: LAB 09:10
PROVIDERS: PCP Family Medicine; Visit Provider Internal Medicine Nephrology
DX: D64.9 Anemia, unspecified (principal)
CPT/HCPCS: 36415; 85018